=== PATIENT | male | born 1940 | race Caucasian/White ===

== ENCOUNTER 2017-04-15 00:39 | Inpatient (IN) | payer OTHER ==
[~2017-04-15] VITALS: Ht 170.2 cm; Wt 89.3 kg
[2017-04-15] VITALS (11 sets, daily range): BP systolic 156–219; BP diastolic 100–143; PULSE 69–116; TEMP 36.5–37.6; O2SAT 92–98; Ht 170.2 cm; Wt 89.3 kg
[~2017-04-15 00:39] MED LIST: ALLO100T PO; ASPI81TA28 PO; ATOR10TA82 PO; ATV5 PO; CARV6.25 PO; CHOL100010 PO; CIPR-255 PO; CTP2 PO; LEVO150T9 PO; METFTAB2 PO; MULTTAB58 PO; TORS10TA14 PO
[2017-04-15] MEDS ORDERED: LORAZEPAM 2 MG/ML 1 ML VIAL IV STA (01:33)
[2017-04-15 01:40] LABS: BASO % 0.4 %; BASO ABS # 0.03 K/uL (0-0.2); COMPLETE YES; EOS % 2.8 %; HEMATOCRIT 42.9 % (42-52); IG% 0.1 %; LYMPH % 21.7 %; LYMPH ABS # 1.52 K/uL (1.2-3.4); MEAN CELL VOLUME 87.9 fL (80-100); MEAN CORPUSCULAR HEMOGLOBIN 30.5 pg (25-34); MEAN CORPUSCULAR HGB CONC 34.7 g/dl (32-36); MEAN PLATELET VOLUME 10.4 fL (7.4-10.4); MONO % 15.5 %; NEUT % 59.5 %; PLATELET COUNT 242 K/uL (130-400); RED BLOOD COUNT 4.88 M/uL (4.7-6.1); WHITE BLOOD COUNT 7.02 K/uL (4.8-10.8)
[2017-04-15 02:01] LABS: ALT/SGPT 44 U/L (12-78); AST/SGOT 29 U/L (15-37); BLOOD UREA NITROGEN 23 mg/dl (7-18); BUN/CREATININE RATIO 13.6 (10-20); CALCIUM 9.3 mg/dl (8.5-10.1); CARBON DIOXIDE 30 mmol/L (21-32); CHLORIDE 97 mmol/L (98-107); CREATININE 1.71 mg/dl (0.60-1.40); GLUCOSE 187 mg/dl (70-99); POTASSIUM 3.5 mmol/L (3.5-5.1); SODIUM 133 mmol/L (136-145)
[2017-04-15 02:06] LABS: ALKALINE PHOSPHATASE 94 U/L (45-117); CKMB/CK RATIO 2.6 (0-3.0)
--- NOTE | 2017-04-15 03:13 | EMERGENCY ROOM VISIT NOTE ---
History Report prepared by Desirae: Camila Ramires Under the Supervision of: Dr. Pamela Goodrich D.O. First contact with patient: 01:24 Chief Complaint: ILLNESS Stated Complaint: RESP PROBLEMS, WEAKNESS History of Present Illness The patient is a 77 year old male who presents to the Emergency Room with complaints of persistent illness starting 4 days ago. The patient has had a cough, congestion, and rhinorrhea. He tried taking Mucinex 2 nights ago which made him jittery. He was unable to sleep. Around 0300, he became SOB and started wheezing. This slowly improved on its own. He has not had any similar episodes of SOB since then. He was noted by nurses to be diaphoretic on arrival. He drove here. He notes that he stopped taking his Losartan because it caused him to have a sore throat, facial swelling, and heartburn. His heartburn has resolved since he stopped taking it. He notes a history of LBBB. He takes lorazepam at night for anxiety. He is on levothyroxine. He has a history of hypertension. Source of History: patient, nursing staff Onset: 4 days ago Position: other (global) Quality: other (illness) Timing: other (persistent) Associated Symptoms: + diaphoresis, + cough, + SOB (episodic) Note: Pt reports an episode of wheezing, congestion, rhinorrhea. Review of Systems See HPI for pertinent positives & negatives. A total of 10 systems reviewed and were otherwise negative. Past Medical & Surgical Medical Problems: (1) Diabetes (2) Diverticulitis (3) Hypertension (4) Hypertensive urgency (5) Prostate ca (6) Spinal stenosis (7) Thyroid cancer Surgical Problems: (1) S/P lumbar fusion Family History Diabetes mellitus Heart disease Social History Smoking Status: Former Smoker Marital Status: Housing Status: lives with family Occupation Status: retired Current/Historical Medications Scheduled Allopurinol (Allopurinol), 200 MG PO DAILY Amlodipine (Norvasc), 2.5 MG PO QAM Aspirin (Aspirin Ec), 81 MG PO QPM Atorvastatin (Lipitor), 10 MG PO QPM Carvedilol (Coreg), 6.25 MG PO BID Cholecalciferol (Vitamin D3), 1 CAP PO DAILY Clonidine Hcl (Catapres), 0.3 MG PO BID Coenzyme Q10 (Ubidecarenone) (Co Q-10), 150 MG PO DAILY Levothyroxine Sodium (Levothyroxine Sodium), 1 TAB PO DAILY Lorazepam (Ativan), 0.5 MG PO AMPM Metformin Hcl (Glucophage Er), 750 MG PO BID Potassium Chloride (Micro-K Ext Rel), 10 MEQ PO QAM Torsemide (Demadex), 10 MG PO DAILY Allergies Coded Allergies: Clonidine (Unverified Allergy, Unknown, allergic to all but 1 brand, ) ANJELICA Inhibitors (Verified Adverse Reaction, Intermediate, INTOLERANCE PER MD ORDER, 04/15/17) Allopurinol (Verified Adverse Reaction, Intermediate, severe abd pain, 04/15/17) PT TAKES DESPITE REACTION Beta Adrenergic Blockers (Verified Adverse Reaction, Intermediate, INTOLERANCE PER DR ARELLANO, 04/15/17) Doxazosin (Verified Adverse Reaction, Intermediate, INTOLERANCE PER DR ARELLANO, 04/15/17) Statins (Verified Adverse Reaction, Intermediate, INTOLERANCE PER DR ARELLANO , 04/15/17) Physical Exam Vital Signs Date Time Temp Pulse Resp B/P (MAP) Pulse Ox O2 Delivery O2 Flow Rate FiO2 04/15/17 05:09 63 04/15/17 04:54 63 18 167/111 92 Room Air 04/15/17 03:17 74 18 185/107 93 Room Air 04/15/17 01:11 89 04/15/17 01:10 97 Room Air 04/15/17 00:54 37.1 88 19 215/113 95 Room Air Physical Exam HEENT: Head - normocephalic and atraumatic Pupils are equal, round, and reactive to light. Extraocular eye muscles are intact, and sclera are anicteric. Nose - moist nasal mucosa without discharge. Mouth - moist buccal mucosa. Oropharynx is nonerythematous and there is no tonsillar exudate or edema noted. Neck: Supple; no JVD, nuchal rigidity, cervical lymphadenopathy, or auscultated bruits. Heart: Regular rate and rhythm. There is a normal S1 and S2 with no murmurs, clicks, or gallops appreciated. Lungs: Diminished breath sounds at both bases. Abdomen: Soft, completely nontender, distended, with good bowel sounds. There are no palpable pulsatile masses or hepatosplenomegaly. There is no guarding, rigidity, or rebound noted. Extremities: No evidence of cyanosis, clubbing, or edema. There are easily palpable peripheral pulses. Skin: warm and diaphoretic with good turgor and no rashes. Medical Decision & Procedures ER Provider Diagnostic Interpretation: X-ray results as stated below per interpretation by me: Chest X-ray: Elevated right hemidiaphragm, unchanged. Otherwise normal. Laboratory Results Test 04/15/17 00:00 04/15/17 01:20 04/15/17 03:55 Influenza Type A (RT-PCR) Neg for Influ A (NEG) Influenza Type B (RT-PCR) Neg for Influ B (NEG) RDW Standard Deviation 41.2 fL (36.4-46.3) RDW Coefficient of Variation 12.9 % (11.5-14.5) White Blood Count 7.02 K/uL (4.8-10.8) Red Blood Count 4.88 M/uL (4.7-6.1) Hemoglobin 14.9 g/dL (14.0-18.0) Hematocrit 42.9 % (42-52) Mean Corpuscular Volume 87.9 fL (80-100) Mean Corpuscular Hemoglobin 30.5 pg (25-34) Mean Corpuscular Hemoglobin Concent 34.7 g/dl (32-36) Platelet Count 242 K/uL (130-400) Mean Platelet Volume 10.4 fL (7.4-10.4) Neutrophils (%) (Auto) 59.5 % Lymphocytes (%) (Auto) 21.7 % Monocytes (%) (Auto) 15.5 % Eosinophils (%) (Auto) 2.8 % Basophils (%) (Auto) 0.4 % Neutrophils # (Auto) 4.17 K/uL (1.4-6.5) Lymphocytes # (Auto) 1.52 K/uL (1.2-3.4) Monocytes # (Auto) 1.09 K/uL (0.11-0.59) Eosinophils # (Auto) 0.20 K/uL (0-0.5) Basophils # (Auto) 0.03 K/uL (0-0.2) Prothrombin Time 9.9 SECONDS (9.0-12.0) Prothromb Time International Ratio 0.9 (0.9-1.1) Activated Partial Thromboplast Time 25.4 SECONDS (21.0-31.0) Partial Thromboplastin Ratio 1.0 Total Bilirubin 0.4 mg/dl (0.2-1) Direct Bilirubin < 0.1 mg/dl (0-0.2) Aspartate Amino Transf (AST/SGOT) 29 U/L (15-37) Alanine Aminotransferase (ALT/SGPT) 44 U/L (12-78) Alkaline Phosphatase 94 U/L (45-117) Total Creatine Kinase 421 U/L (39-308) Pro-B-Type Natriuretic Peptide 404 pg/ml (0-1800) Total Protein 8.7 gm/dl (6.4-8.2) Albumin 3.8 gm/dl (3.4-5.0) Procalcitonin 0.10 ng/ml (0-0.5) Thyroid Stimulating Hormone (TSH) 1.660 uIu/ml (0.300-4.500) Laboratory results per my review. Medications Administered Medications (Trade) Dose Ordered Sig/Laurie Route Start Time Stop Time Status Last Admin Dose Admin Lorazepam (Ativan Inj) 1 mg NOW STAT IV 04/15/17 01:33 04/15/17 01:35 DC 04/15/17 01:46 1 MG Aspirin (Aspirin Chew) 324 mg NOW STAT PO 04/15/17 05:05 04/15/17 05:06 DC 04/15/17 05:21 324 MG Procedure Medications: Lorazepam 1 mg IV, Aspirin 324 mg PO. ECG Indication: SOB/dyspnea Rate (beats per minute): 87 Rhythm: normal sinus Findings: LBBB, PVC, no acute ischemic change Comparison ECG Date: 10-Dec-2012 Change: LBBB is new, but patient notes that he has a history of LBBB more recently. ED Course 0124: The patient was evaluated in room B12B. A complete history and physical examination were performed. Nursing notes and previous electronic medical records were reviewed. IV lock was established and labs were drawn as above. A twelve-lead EKG was obtained as described above. 0133: The patient remained significantly hypertensive and was given Lorazepam 1 mg IV. 0353: I reevaluated the patient. He is feeling better. He will take his own clonidine.The patient had a borderline elevated troponin. He will have a repeat troponin. 0452: The patient's repeat troponin went up to 0.065. 0500: Upon reevaluation, I discussed findings and results with him. He verbalized agreement of the treatment plan. The patient will be evaluated for further management and care. 0502: I discussed the patient's case with Dr. Valente [facility]. The patient will be evaluated for further management. 0505: Aspirin 324 mg PO. Medical Decision The patient is a 77 year old male who presents to the ED with cough, hypertension and chest discomfort. Differential diagnosis includes cardiac ischemia, anxiety, cardiac dysrhythmia, hypertensive crisis, medication noncompliance. Labs: no leukocytosis, stable H&H, total CK 421, CKMB 11.1, troponin 0.041, BNP 404, BUN 23, creatinine 1.7 which is elevated, sodium is down to 133. Repeat troponin went up to 0.065. This is a 77 year old male patient presents to the emergency department with a cough, hypertension and chest discomfort. The patient does have a history of high blood pressure and anxiety. He became more concerned tonight when his anxiety elevated and he had some discomfort to the left side of his chest. EKG reveals a left bundle-branch block. The patient states that this is old. He had 2 troponins obtained with the second one elevated. [facility] for further management. Medication Reconcilliation Current Medication List: was personally reviewed by me Blood Pressure Screening Patient's blood pressure: Elevated blood pressure Will be addressed as an inpatient. Consults Time Called: 0452 Consulting Physician: Dr. Valente [facility] Returned Call: [phone] Discussed the patient's case. The patient will be evaluated for further management. Impression Primary Impression: Left sided chest pain Additional Impression: Hypertension Scribe Attestation The scribe's documentation has been prepared under my direction and personally reviewed by me in its entirety. I confirm that the note above accurately reflects all work, treatment, procedures, and medical decision making performed by me. Departure Information Dispostion Being Evaluated By Hospitalist Pramod Bhatt M.D. (PCP) Patient Instructions My [facility] Problem Qualifiers Additional Impression: Hypertension Hypertension type: unspecified Qualified Codes: I10 - Essential (primary) hypertension
[2017-04-15] MEDS ORDERED: ASPIRIN 81 MG CHEW PO STA (05:05)
[2017-04-15] MEDS ORDERED: CLON0.3T PO (05:07)
[2017-04-15] MEDS ORDERED: AMLO2.5T PO (05:07)
[2017-04-15] MEDS ORDERED: LEVO150T9 PO (05:07)
[2017-04-15] MEDS ORDERED: POTA10CA28 PO (05:09)
[2017-04-15] MEDS ORDERED: METF750T PO (05:09)
[2017-04-15] MEDS ORDERED: COEN150C PO (05:09)
[2017-04-15] MEDS ORDERED: LORA-741 PO (05:09)
[2017-04-15] MEDS ORDERED: CHOL2000 PO (05:09)
--- NOTE | 2017-04-15 05:15 | History and Physical ---
History & Physical Date & Time of Service: Apr 15, 2017 at 05:14 Chief Complaint: Resp Problems, Weakness Primary Care Physician: Pramod Damian M.D. History of Present Illness Source: patient, family Patient is a 77 yr male with PMH of DM II, uncontrolled HTN, CKD III, Thyroid cancer S/P resection, Hypertensive Heart disease, Prostate cancer S/P cryotherapy, Gout, HLP, Anxiety disorder presents with history of flu like symptoms since 3-4 days duration. Patient is a poor historian. Patient states he follow with Nephrology and Cardiology as outpatient and his BP is chronically elevated. He is on multiple medications for HTN and missed his meds today. He reports he quit taking his losartan recently as it causes sore throat , facial swelling and heartburn and symptoms resolved after discontinuing it. Reports dry cough, low grade fever, Rhinorrhea, diarrhea since 3 days. He noticed to have SOB and wheezing on Wednesday after taking Mucinex along with lorazepam which resolved. Also reports having some chest discomfort across the chest associated with coughing yesterday. He tried Mucinex OTC which minimally helped. He reports having diaphoresis today prior to ED visit. Denies any history of Chest pain, SOB, wheezing, diarrhea currently. Also denies any history of Dizziness, nausea, vomiting, abd pain, change in vision, Orthopnea, PND, change in appetite. Has chronic leg edema which he attributes to Amlodipine. Past Medical/Surgical History Medical Problems: (1) Diabetes Status: Chronic (2) Diverticulitis Status: Resolved (3) Hypertension Status: Chronic (4) Prostate ca Status: Resolved (5) Spinal stenosis Status: Resolved (6) Thyroid cancer Status: Resolved Surgical Problems: (1) S/P lumbar fusion Status: Resolved Family History Diabetes mellitus Heart disease Mother: DM II Father: Parkinson's disease Social History Smoking Status: Former Smoker Alcohol Use: none Marital Status: Housing status: unknown Occupational Status: retired Immunizations History of Influenza Vaccine: Yes History of Tetanus Vaccine?: Yes History of Pneumococcal: Yes History of Hepatitis B Vaccine: Unknown Multi-Drug Resistant Organisms History of MDRO: No Allergies Coded Allergies: Clonidine (Unverified Allergy, Unknown, allergic to all but 1 brand, ) ANJELICA Inhibitors (Verified Adverse Reaction, Intermediate, INTOLERANCE PER MD ORDER, 04/15/17) Allopurinol (Verified Adverse Reaction, Intermediate, severe abd pain, 04/15/17) PT TAKES DESPITE REACTION Beta Adrenergic Blockers (Verified Adverse Reaction, Intermediate, INTOLERANCE PER DR ARELLANO, 04/15/17) Doxazosin (Verified Adverse Reaction, Intermediate, INTOLERANCE PER DR ARELLANO, 04/15/17) Statins (Verified Adverse Reaction, Intermediate, INTOLERANCE PER DR ARELLANO , 04/15/17) Home Medications Scheduled Amlodipine (Norvasc), 2.5 MG PO QAM Aspirin (Aspirin Ec), 81 MG PO QPM Atorvastatin (Lipitor), 10 MG PO QPM Carvedilol (Coreg), 6.25 MG PO BID Cholecalciferol (Vitamin D3), 1 CAP PO DAILY Clonidine Hcl (Catapres), 0.3 MG PO BID Coenzyme Q10 (Ubidecarenone) (Co Q-10), 150 MG PO DAILY Levothyroxine Sodium (Levothyroxine Sodium), 1 TAB PO DAILY Lorazepam (Ativan), 0.5 MG PO AMPM Metformin Hcl (Glucophage Er), 750 MG PO BID Potassium Chloride (Micro-K Ext Rel), 10 MEQ PO QAM Torsemide (Demadex), 10 MG PO DAILY Review of Systems See HPI for pertinent positives & negatives. A total of 10 systems reviewed and were otherwise negative. Physical Exam Vital Signs Date Time Temp Pulse Resp B/P (MAP) Pulse Ox O2 Delivery O2 Flow Rate FiO2 04/15/17 05:09 63 04/15/17 04:54 63 18 167/111 92 Room Air 04/15/17 03:17 74 18 185/107 93 Room Air 04/15/17 01:11 89 04/15/17 01:10 97 Room Air 04/15/17 00:54 37.1 88 19 215/113 95 Room Air General Appearance: WD/WN, no apparent distress Head: normocephalic, atraumatic Eyes: normal inspection, PERRL, EOMI, sclerae normal ENT: normal ENT inspection, hearing grossly normal Neck: supple, trachea midline Respiratory/Chest: chest non-tender, lungs clear, normal breath sounds, no respiratory distress, no accessory muscle use Cardiovascular: regular rate, rhythm, no murmur, + pertinent finding (1-2+ B/L edema) Abdomen/GI: normal bowel sounds, non tender, soft Back: normal inspection Extremities/Musculoskelatal: normal inspection, + pedal edema Neurologic/Psych: cna pct II-XII nml as tested, no motor/sensory deficits, alert, normal mood/affect, oriented x 3 Skin: normal color, warm/dry Diagnostics Laboratory Results Results Past 24 Hours Test 04/15/17 01:20 04/15/17 03:55 Range/Units White Blood Count 7.02 4.8-10.8 K/uL Red Blood Count 4.88 4.7-6.1 M/uL Hemoglobin 14.9 14.0-18.0 g/dL Hematocrit 42.9 42-52 % Mean Corpuscular Volume 87.9 80-100 fL Mean Corpuscular Hemoglobin 30.5 25-34 pg Mean Corpuscular Hemoglobin Concent 34.7 32-36 g/dl Platelet Count 242 130-400 K/uL Mean Platelet Volume 10.4 7.4-10.4 fL Neutrophils (%) (Auto) 59.5 % Lymphocytes (%) (Auto) 21.7 % Monocytes (%) (Auto) 15.5 % Eosinophils (%) (Auto) 2.8 % Basophils (%) (Auto) 0.4 % Neutrophils # (Auto) 4.17 1.4-6.5 K/uL Lymphocytes # (Auto) 1.52 1.2-3.4 K/uL Monocytes # (Auto) 1.09 0.11-0.59 K/uL Eosinophils # (Auto) 0.20 0-0.5 K/uL Basophils # (Auto) 0.03 0-0.2 K/uL RDW Standard Deviation 41.2 36.4-46.3 fL RDW Coefficient of Variation 12.9 11.5-14.5 % Immature Granulocyte % (Auto) 0.1 % Immature Granulocyte # (Auto) 0.01 0.00-0.02 K/uL Sodium Level 133 136-145 mmol/L Potassium Level 3.5 3.5-5.1 mmol/L Chloride Level 97 98-107 mmol/L Carbon Dioxide Level 30 21-32 mmol/L Anion Gap 6.0 3-11 mmol/L Blood Urea Nitrogen 23 7-18 mg/dl Creatinine 1.71 0.60-1.40 mg/dl Est Creatinine Clear Calc Drug Dose 39.5 ml/min Estimated GFR () 44.1 Estimated GFR (Non- 38.0 BUN/Creatinine Ratio 13.6 10-20 Random Glucose 187 70-99 mg/dl Calcium Level 9.3 8.5-10.1 mg/dl Total Bilirubin 0.4 0.2-1 mg/dl Direct Bilirubin < 0.1 0-0.2 mg/dl Aspartate Amino Transf (AST/SGOT) 29 15-37 U/L Alanine Aminotransferase (ALT/SGPT) 44 12-78 U/L Alkaline Phosphatase 94 45-117 U/L Total Creatine Kinase 421 39-308 U/L Creatine Kinase MB 11.1 0.5-3.6 ng/ml Creatine Kinase MB Ratio 2.6 0-3.0 Troponin I 0.041 0.065 0-0.045 ng/ml Pro-B-Type Natriuretic Peptide 404 0-1800 pg/ml Total Protein 8.7 6.4-8.2 gm/dl Albumin 3.8 3.4-5.0 gm/dl Diagnostic Radiology CXR: : Mild cardiomegaly. Chronic platelike atelectasis both lung bases EKG EKG: Sinus, PVC, PACs, LBBB Impression Assessment and Plan Hypertensive Urgency: ? Compliance Chronically uncontrolled Previously on HCTZ but developed Hyponatremia Could not increase coreg/Clonidine secondary to Relative Bradycardia Did not tolerate Hydralazine in the past Quit taking Losartan secondary to side effects Resume his home HTN meds Monitor Mild elevation in troponin likely secondary to HTN Urgency Trend Cardiac enzymes, Check ECHO EKG: Sinus, PACs, PVCs, LBBB (LBBB not new based on EKG from 02/07/16) Monitor electrolytes repeat EKG CKD III: Cr slightly elevated: 1.7 Gentle IV fluids Monitor renal function May need to hold Torsemide, Allopurinol and Stain if Cr worsens Flu Like symptoms: Check Influenza CXR: No signs of consolidation Empirically start on Levaquin Normal procalcitonin DM II: ISS, Lantus Last A1C:7.4 on 11/11/16 Hold Oral DM meds H/O Thyroid cancer S/P resection H/O Prostate cancer S/P cryotherapy Continue levothyroxine TSH: normal Gout: Continue Allopurinol Anxiety disorder: Continue home meds DVT Px: Heparin SQ Code Status: Full Code
[2017-04-15] MEDS ORDERED: NITROGLYCERIN 0.4 MG SL PER TAB CHARGE SL PRN (06:15)
[2017-04-15] MEDS ORDERED: SODIUM CHLORIDE 0.9% 1000ML 500 ML IV ONE (06:15)
[2017-04-15] MEDS ORDERED: DEXTROSE 50% 50 ML SYR IV PRN (06:30)
[2017-04-15] MEDS ORDERED: GLUCAGON FOR INJ 1 MG VIAL SQ PRN (06:30)
[2017-04-15] MEDS ORDERED: GLUCOSE 40% GEL 15 GM TUBE PO PRN (06:30)
[2017-04-15] MEDS ORDERED: GLUCOSE 10 TABS/TUBE PO PRN (06:30)
--- NOTE | 2017-04-15 06:36 | DIAGNOSTIC IMAGING REPORT ---
CHEST ONE VIEW PORTABLE CLINICAL HISTORY: sob dyspnea COMPARISON STUDY: 12/11/2012 FINDINGS: Mild cardiomegaly. Chronic elevation right hemidiaphragm. Minimal chronic platelike bibasilar atelectasis. IMPRESSION: Mild cardiomegaly. Chronic platelike atelectasis both lung bases. The above report was generated using voice recognition software. It may contain grammatical, syntax or spelling errors. Electronically signed by: Bill Burkett M.D. 04/15/2017 6:35 AM Dictated Date/Time: 04/15/2017 6:34 AM
[2017-04-15] MEDS ORDERED: POTASSIUM CHLORIDE 10 MEQ TABCR PO SCH (06:45)
[2017-04-15 06:55] LABS: INR 0.9 (0.9-1.1); PROTHROMBIN TIME (PATIENT) 9.9 SECONDS (9.0-12.0)
[2017-04-15] MEDS ORDERED: IV FLUIDS COMPLETED PRN (07:00)
[2017-04-15 07:16] LABS: MAGNESIUM 2.2 mg/dl (1.8-2.4)
[2017-04-15] MEDS ORDERED: NURSING VERBAL MED ORDER ONE (07:45)
[2017-04-15] MEDS ORDERED: LEVOFLOXACIN CONSULT ACTIVE PRN (08:00)
[2017-04-15] MEDS ORDERED: LEVOTHYROXINE 150 MCG TAB PO SCH (08:00)
[2017-04-15] MEDS: LEVOFLOXACIN 750 MG TAB PO SCH (08:28)
[2017-04-15] MEDS: NITROGLYCERIN OINT 2% 1GM PACKET EXT SCH ×3 (08:29→19:33)
[2017-04-15] MEDS: LORAZEPAM 0.5 MG TAB PO SCH ×2 (08:36→19:36)
[2017-04-15] MEDS: HydrALAZINE HCL 20 MG/ML VIAL IV. PRN ×2 (08:37→23:25)
[2017-04-15] MEDS ORDERED: ALL100 PO (08:37)
[2017-04-15] MEDS: INSULIN ASPART 100 UNITS/ML 3 ML PEN SC SCH ×4 (08:39→20:53)
[2017-04-15] MEDS ORDERED: CARVEDILOL 6.25 MG TAB PO SCH (09:00)
[2017-04-15] MEDS ORDERED: TORSEMIDE 20 MG TAB PO SCH (09:00)
[2017-04-15] MEDS ORDERED: AMLODIPINE BESYLATE 5 MG TAB PO SCH (09:00)
[2017-04-15] MEDS ORDERED: ALLOPURINOL 100 MG TAB PO SCH (09:15)
[2017-04-15] MEDS ORDERED: CARVEDILOL 6.25 MG TAB PO STA (09:38)
[2017-04-15 11:57] LABS: INFLUENZA A PCR Neg for Influ A (NEG); INFLUENZA B PCR Neg for Influ B (NEG)
[2017-04-15] MEDS: ACETAMINOPHEN 325 MG TAB PO PRN (12:28)
[2017-04-15] MEDS: HEPARIN SOD 5000 UNIT/0.5 ML CARP SQ SCH ×2 (13:35→20:54)
--- NOTE | 2017-04-15 13:47 | CARDIOLOGY CONSULTATION ---
DATE OF CONSULTATION: 04/15/2017 REFERRING PHYSICIAN: Michael Briceño MD CHIEF COMPLAINT ON ADMISSION: Cough and feeling unwell. HISTORY OF PRESENT ILLNESS: Mr. David is a 77-year-old male who is known to the undersigned for history of labile hypertension and nonobstructive coronary artery disease. He describes upper respiratory illness starting approximately 5 days ago with congestion, sore throat, rhinorrhea, and cough. Reports low-grade temperature of 100.3 at home. The patient took some Mucinex yesterday with improvement; however, felt worse overnight with cough and wheezing. Minimal sputum production noted. Blood pressure has been quite labile. Recently evaluated by nephrology, who recommended ER evaluation; however, the patient declined hospitalization at that time. Longstanding history of perceived medication intolerance including multi-antihypertensive medication changes as documented in the [facility] record. He has been hypertensive since admission. Denies exertional chest pain or heaviness. Mild dyspnea on exertion associated with current upper respiratory tract infection. Reports labile blood pressures at home, which are unchanged. Denies orthopnea, PND, or lower extremity edema. He has been compliant with current medications listed below aside from losartan. The patient states losartan causes possible lip swelling, sore throat, and swollen lymph nodes in his neck. Amlodipine reduced in the past due to lower extremity edema. Currently, the patient is resting comfortably. Reports mild congestion. Blood pressure remains elevated. No dysrhythmias on telemetry. Offers no other complaints at this time. REVIEW OF SYSTEMS: The pertinent positive noted above, a comprehensive 10-system review is otherwise negative. PAST MEDICAL HISTORY: 1. Labile hypertension. 2. Nonobstructive coronary artery disease per cardiac catheterization in 2009. 3. Hyponatremia. 4. Type 2 diabetes. 5. Hypertensive heart disease. 6. Sinus bradycardia. 7. Hypertension. 8. Chronic kidney disease stage III. 9. Hypothyroidism. 10. Anxiety disorder. PAST SURGICAL HISTORY: 1. Prostate biopsy. 2. Carpal tunnel surgery. 3. Colorectal cancer screening. 4. Dental surgery. 5. EGD. 6. Spinal fusion -- lumbar. 7. Prostate cryoablation. 8. Removal of thymus gland. 9. Ulnar nerve revision. FAMILY HISTORY: Negative for premature CAD or sudden cardiac , positive for diabetes. SOCIAL HISTORY: He is and lives with his . Denies alcohol use. Former tobacco use noted. ALLERGIES: 1. DOXAZOSIN. 2. CARVEDILOL. 3. CITALOPRAM. 4. CLONIDINE. 5. LISINOPRIL. 6. STATINS. CURRENT OUTPATIENT MEDICATIONS: Per review of Epic record: 1. Magnesium 500 mg daily. 2. Potassium chloride 10 mEq on Wednesday, Wednesday and Wednesday with 10 mg dose of Demadex. 3. Demadex 10 mg on Wednesday, Wednesday, and Wednesday. 4. Carvedilol 6.25 mg twice daily. 5. Allopurinol 100 mg 2 tablets daily. 6. Ativan 0.5 mg twice daily. 7. Norvasc 2.5 mg daily. 8. Lipitor 10 mg at bedtime. 9. Levoxyl 150 mcg daily. 10. Coenzyme Q10 daily. 11. Clonidine 0.3 mg twice daily. 12. Losartan 50 mg twice daily. 13. Metformin 750 mg twice daily. 14. Aspirin 81 mg daily. EKG on admission demonstrates sinus rhythm with left bundle-branch block. Telemetry demonstrates sinus rhythm with left bundle-branch block, no significant bradycardia, pauses, or heart block. Chest x-ray on admission: Elevated right hemidiaphragm. No congestion or infiltrate. LABORATORY DATA: Initial troponin 0.041, repeat troponin 0.065, total CK 421, and CK-MB 11.1. Sodium 133, potassium 3.5, chloride 97, CO2 is 30, BUN is 23, and creatinine is 1.71. INR is 0.9. Hemoglobin is 14.9, white blood cell count is 7.02, and platelet count 242. PHYSICAL EXAMINATION: VITAL SIGNS: Temperature is 36.5 degrees centigrade, pulse 69 beats per minute and regular, respiratory rate 20 breaths per minute, blood pressure currently 190/106, and SaO2 is 93% on room air. GENERAL: NAD, awake, alert and oriented x3. HEENT: His mucous membranes are moist. No scleral icterus. The conjunctivae are pink. NECK: Supple without JVD or HJR. No carotid bruit. HEART: Regular with a normal S1 and S2. There is no murmur, rub, or gallop. LUNGS: Clear without rales, rhonchi, or wheezes. There are diminished breath sounds at the right base. ABDOMEN: Soft and nontender. No rebound or guarding. Normal bowel sounds. EXTREMITIES: Warm and dry. There is no clubbing, cyanosis, or edema. NEUROLOGIC: Demonstrates no focal motor deficit. FINAL IMPRESSION: 1. This is a 77-year-old male who presented to the Emergency Room with upper respiratory tract infection. 2. Mildly elevated troponin and CK-MB without anginal symptoms. History of minimal nonobstructive coronary artery disease in the past. 3. Acute renal insufficiency superimposed on chronic kidney disease secondary to volume depletion/diuretic use. 4. Uncontrolled hypertension, which is known to be labile per history. 5. Multiple drug intolerances. 6. Dyslipidemia. PLAN AND RECOMMENDATIONS: Cardiac enzymes will be trended x3 sets. A resting 2D transthoracic echo ordered to exclude the presence of new regional wall motion abnormalities. Consider influenza screening as well as testing for strep throat given symptoms noted above. Antibiotics as per internal medicine service. Carvedilol will be titrated to 12.5 mg twice daily to improve blood pressure control. Losartan will be discontinued due to possible history of angioedema (lip swelling) noted recently. Consider addition of hydralazine to improve blood pressure control. Further recommendations pending review of testing. We will continue to follow patient closely during hospitalization. Thank you for allowing me to participate in the care of your patient.
[2017-04-15] MEDS ORDERED: TRAMADOL HCL 50 MG TAB PO PRN (14:00)
[2017-04-15] MEDS ORDERED: AMLODIPINE BESYLATE 5 MG TAB PO ONE (14:30)
--- NOTE | 2017-04-15 15:44 | DIAGNOSTIC IMAGING REPORT ---
HEAD WITHOUT CONTRAST (CT) CLINICAL HISTORY: 77 years-old Male with AMS. Acute altered mental status TECHNIQUE: Multiple axial CT images of the head were obtained without contrast. A dose lowering technique was utilized adhering to the principles of ALARA. CT DOSE: 638.56 mGycm COMPARISON: Head CT 07/13/2009. FINDINGS: No acute intracranial hemorrhage, midline shift, intracranial mass, hydrocephalus, territorial ischemia or abnormal extra-axial collection. Mild atrophy with chronic microvascular ischemic changes. Chronic microvascular ischemic changes have progressed from prior study. Vascular calcifications are seen at the level of the skull base. The calvarium is intact. The mastoid air cells, and middle ear cavities are clear. Mild mucosal thickening of the ethmoid air cells. IMPRESSION: No acute intracranial abnormality. The above report was generated using voice recognition software. It may contain grammatical, syntax or spelling errors. Electronically signed by: Jagdish Medrano M.D. 04/15/2017 3:43 PM Dictated Date/Time: 04/15/2017 3:41 PM
--- NOTE | 2017-04-15 15:46 | NEPHROLOGY CONSULTATION ---
DATE OF CONSULTATION: 04/15/2017 ATTENDING OF RECORD: Dr. Valente. REASON FOR CONSULTATION: KYRA and hypertension. HISTORY OF PRESENT ILLNESS: This is a 77-year-old male who was recently seen in my office on April 09 with CKD stage III with over a gram of proteinuria from hypertension and diabetes with creatinine has been slowly trending up, has hypertension and checks it at home and his home blood pressure machine is accurate. The patient's diuretics were recently switched about a month ago from hydrochlorothiazide to torsemide and since switching, his blood pressure has worsened. The patient does have several drugs sensitivities and requires clonidine, Actavis brand only. He did develop shortness of breath from generics. He has also developed palpitations from Norvasc and had a cough from lisinopril, although tolerating the losartan well. He does have a history of prostate cancer as well as prostatitis as well as history of gout, but unable to tolerate the allopurinol on a daily basis and only takes the allopurinol when needed. No history of myeloma. No history of hepatitis. When I saw the patient, we have a right kidney of 11.8 cm and left kidney of 12 cm medical renal disease with a creatinine of 1.4 and 2.5 grams of proteinuria from hypertension, diabetes and trying to optimize blood pressure medicines as well as possible. Blood pressure was 196/114 when I saw him in the office and strongly encouraged him to go to the Emergency Room to try to help lower his blood pressure and patient agreed to try norvasc again and started him on Norvasc 2.5 mg to help lower his blood pressure since the patient did not want to go to the hospital. The patient though developed cough and sinus symptoms and started Mucinex and then took a lorazepam to help him sleep. He developed worsening cough and wheezing over the weekend. The patient presented with generalized weakness overall. The patient's blood pressures are normally significantly elevated and when he came in at midnight today, his blood pressure was 215/113. It is currently last checked 156/114. He just had an echo done. Currently on Coreg 12.5 mg p.o. b.i.d., clonidine 0.3 b.i.d., and normal saline at 50 mL an hour. Creatinine was 1.71. At the time of admission with negative procalcitonin. White count of 7, H&H of 14 and 42, and platelet count of 242. Flu negative. Chest x-ray showed mild cardiomegaly with chronic atelectasis of both lungs. PAST MEDICAL HISTORY: CKD stage III, type 2 diabetes, BPH, prostate cancer, gout, hypertension, hypothyroidism, history of thyroid cancer, anxiety, and hyperlipidemia. PAST SURGICAL HISTORY: Prostate biopsy x2, carpal tunnel surgery, lumbar fusion, prostate cryoablation and removal of thymus gland. FAMILY HISTORY: Significant for diabetes and breast cancer. Brother with hypertension. SOCIAL HISTORY: with 1 child. Former smoker, quit in 1978. No alcohol and no drugs. REVIEW OF SYSTEMS: Positive fatigue. Positive intermittent headaches. No change in weight. No fevers or chills. Positive shortness of breath. Positive cough. Positive wheezing, which has gotten better. No chest pain. No edema. No nausea, vomiting, diarrhea or constipation. Positive nocturia about twice a night. Positive arthritis in the knees. No rash or itching. All other review of systems otherwise negative. The patient's creatinine was 1.4 at last check on March 01. It was up to 1.6 on January 12. CURRENT MEDICATIONS: Levothyroxine 150 mcg daily, Lantus 5 units at night, aspirin 81 mg at night, Lipitor 10 mg at night, clonidine 0.3 b.i.d., Coreg 12.5 b.i.d., heparin 5,000 units subQ q. 8 hours, allopurinol 200 mg daily, Norvasc 2.5 mg daily, Ativan 0.5 mg p.o. b.i.d., and Levaquin 750 mg p.o. q. 2 days. PHYSICAL EXAMINATION: VITAL SIGNS: Temperature 36.5, pulse 74, respiratory rate 18, blood pressure 156/114, and satting 94% on room air. GENERAL: Awake, alert, and oriented x3. EYES: No scleral icterus. ENT: Moist mucous membranes. NECK: Supple. PULMONARY: Clear to auscultation. CARDIAC: Regular rate and rhythm. ABDOMEN: Bowel sounds positive. Soft and nontender. EXTREMITIES: No clubbing or cyanosis. Does have +1 edema towards the ankles. NEUROLOGICALLY: Nonfocal. DERMATOLOGIC: No rash or ulcers noted. LABORATORIES: Sodium level is 133, potassium is 3.5, chloride is 97, bicarbonate is 30, BUN is 23, creatinine is 1.71, and glucose 187. CK 421. Albumin 3.8. Procalcitonin is negative. White count 7, H&H 14 and 42, and platelet count is 242. INR is 0.9. Flu is negative. ASSESSMENT AND PLAN: 1. Acute kidney injury on chronic kidney disease, stage III with baseline creatinine of 1.4 and came at 1.71. However, the patient has had uncontrolled hypertension secondary to intolerance of several blood pressure medications and so it is not surprising with a recent sinus congestion, shortness of breath, and cough that his creatinine is above baseline. Currently on IV fluids; however, blood pressures so difficult to control. Would like to stop the IV fluids and okay with creatinine trending up as we try to optimize blood pressure medications. 2. Hypertension. The patient has several drug intolerances. He is normally tolerating losartan for a long time; however, there is a possible angioedema with lip swelling noted recently. Cardiology evaluated the patient and recommended that the losartan be discontinued. They were titrating up the Coreg to 12.5 twice a day and thinking of adding hydralazine to help improve blood pressure control. In the outpatient setting, we did attempt hydralazine and the patient did not tolerate it. They have started Norvasc 2.5 and would like to titrate that up to 5 mg while in an inpatient. I will work with cardiology and the primary hospitalist to help control the blood pressure overall. Currently, on clonidine 0.3 b.i.d., Coreg 12.5 b.i.d., and Norvasc 2.5. We will increase the Norvasc to 5 mg a day and give an additional dose of Norvasc 2.5 now and go ahead and stop the IV fluids. I appreciate the consultation. ALBERT
[2017-04-15] MEDS ORDERED: OXYCODONE/ACETAMINOPHEN 5-325 TAB PO ONE (16:15)
--- NOTE | 2017-04-15 16:31 | ECHOCARDIOGRAM REPORT ---
*NOTICE TO RECEIVING REPUBLICAN AGENCY This information is strictly Confidential and protected under [place] law. [place] law prohibits you from making any further disclosure of this information unless further disclosure is expressly permitted by the written consent of the person to whom it pertains or is authorized by law. A general authorization for the release of medical or other information is not sufficient for this purpose. Hospital accepts no responsibility if the information is made available to any other person, INCLUDING THE PATIENT. Interpretation Summary * Name: BJORN ROSARIO Study Date: 04/15/2017 01:41 PM BP: 156/114 mmHg * Patient Location: C.2E\S\E202\S\1 HR: 74 * : 1940 (M/d/yyyy) Gender: Male Height: 67 in * Age: 77 yrs Ethnicity: [place] Weight: 200 lb * Ordering Physician: Lake Valente * Referring Physician: Self, Referred * Performed By: Félix Horn RCS * * Reason For Study: Chest Pain * BSA: 2.0 m2 * The study was technically limited. * Compared to prior study, changes are noted. * -- Conclusions -- * Ejection Fraction = 50-55%. * There is moderate concentric left ventricular hypertrophy. * The basal septum is thickened and angulated consistent with sigmoid septum. * Septal and apical wall motion abnormality is likely consistent with conduction abnormality. * Aortic valve sclerosis mild, without significant aortic valvular stenosis. * Mild aortic regurgitation. * There is trace mitral regurgitation. * There is mild tricuspid regurgitation. * The estimated systolic PAP is 45mmHg. * Grade I diastolic dysfunction, (abnormal relaxation pattern). Procedure Details * A complete two-dimensional transthoracic echocardiogram was performed (2D, M-mode, Doppler and color flow Doppler). Left Ventricle * The left ventricle is normal in size. * There is moderate concentric left ventricular hypertrophy. * The basal septum is thickened and angulated consistent with sigmoid septum. * Ejection Fraction = 50-55%. * Left ventricular systolic function is normal. * Septal and apical wall motion abnormality is likely consistent with conduction abnormality. Right Ventricle * The right ventricle is normal size. * The right ventricular systolic function is normal as assessed by tricuspid annular plane systolic excursion (TAPSE) (normal >1.5 cm). Atria * The left atrial size is normal. * Right atrial size is normal. * There is no evidence of atrial septal defect, but resolution does not allow assessment for a patent foramen ovale. Mitral Valve * There is mild mitral annular calcification. * There is no mitral valve stenosis. * There is trace mitral regurgitation. Tricuspid Valve * The tricuspid valve is normal. * There is no tricuspid stenosis. * There is mild tricuspid regurgitation. * The estimated systolic PAP is 45mmHg. Aortic Valve * The aortic valve is trileaflet. * Aortic valve sclerosis mild, without significant aortic valvular stenosis. * Aortic stenosis is absent. * Mild aortic regurgitation. Pulmonic Valve * The pulmonary valve is not well seen, but the Doppler examination is normal without significant regurgitation or stenosis. Great Vessels * The aortic root and proximal ascending aorta are normal sized. Pericardium/Pleural * There is no pericardial effusion. Great Vessels * Normal inferior vena cava diameter and respiratory variation suggests normal central venous pressure. Left Ventricular Diastolic Function * Grade I diastolic dysfunction, (abnormal relaxation pattern). MMode 2D Measurements and Calculations IVSd 1.5 cm IVSs 1.3 cm LVIDd 4.2 cm LVIDs 2.9 cm LVPWd 1.5 cm LVPWs 1.4 cm IVS/LVPW 0.96 FS 29.2 % EDV(Teich) 76.4 ml ESV(Teich) 33.3 ml EF(Teich) 56.5 % EDV(cubed) 71.5 ml ESV(cubed) 25.4 ml EF(cubed) 64.5 % % IVS thick -10.14 % % LVPW thick -9.98 % LV mass(C)d 245.0 grams LV mass(C)dI 121.2 grams/m\S\2 LV mass(C)s 128.3 grams LV mass(C)sI 63.5 grams/m\S\2 SV(Teich) 43.2 ml SI(Teich) 21.3 ml/m\S\2 SV(cubed) 46.2 ml SI(cubed) 22.8 ml/m\S\2 Ao root diam 4.2 cm Ao root area 13.9 cm\S\2 ACS 1.8 cm LA dimension 3.6 cm asc Aorta Diam 3.7 cm LA/Ao 0.85 EDV(MOD-sp4) 83.0 ml ESV(MOD-sp4) 48.0 ml EF(MOD-sp4) 42.2 % EDV(MOD-sp2) 108.0 ml ESV(MOD-sp2) 57.0 ml EF(MOD-sp2) 47.2 % SV(MOD-sp4) 35.0 ml SI(MOD-sp4) 17.3 ml/m\S\2 SV(MOD-sp2) 51.0 ml SI(MOD-sp2) 25.2 ml/m\S\2 Doppler Measurements and Calculations MV E max marcos 58.9 cm/sec MV A max marcos 80.6 cm/sec MV E/A 0.73 MV P1/2t max marcos 72.9 cm/sec MV P1/2t 91.1 msec MVA(P1/2t) 2.4 cm\S\2 MV dec slope 234.4 cm/sec\S\2 MV dec time 0.21 sec Ao V2 max 133.3 cm/sec Ao max PG 7.1 mmHg Ao max PG (full) 3.5 mmHg LV V1 max PG 3.6 mmHg LV V1 max 94.5 cm/sec PA V2 max 95.8 cm/sec PA max PG 3.7 mmHg TR max marcos 231.1 cm/sec
--- NOTE | 2017-04-15 17:08 | Progress Note ---
Internal Med Progress Note Date of Service: Apr 15, 2017. Provider Documentation: complains of headache. Afebrile. Denies any sob or chest pain. Ct head was unremarkable. Appreciate cardiology and nephrology inputs. Continue to Monitor BP and adjust meds. ASSESSMENT & PLAN: [] DVT PROPHYLAXIS [] DISPOSITION [] Vital Signs: Date Time Temp Pulse Resp B/P (MAP) Pulse Ox O2 Delivery O2 Flow Rate FiO2 04/15/17 15:05 36.9 76 20 201/126 (151) 94 204/120 (148) 04/15/17 12:00 Room Air 04/15/17 11:04 36.5 74 18 156/114 (128) 94 Room Air 04/15/17 08:00 Room Air 04/15/17 07:14 36.5 69 20 190/106 93 Room Air 04/15/17 06:39 69 18 170/103 95 04/15/17 05:09 63 04/15/17 04:54 63 18 167/111 92 Room Air 04/15/17 03:17 74 18 185/107 93 Room Air 04/15/17 01:11 89 04/15/17 01:10 97 Room Air 04/15/17 00:54 37.1 88 19 215/113 95 Room Air Lab Results: Results Past 24 Hours Test 04/15/17 00:00 04/15/17 01:20 04/15/17 03:55 04/15/17 09:59 Range/Units Influenza Type A (RT-PCR) Neg for Influ A NEG Influenza Type B (RT-PCR) Neg for Influ B NEG White Blood Count 7.02 4.8-10.8 K/uL Red Blood Count 4.88 4.7-6.1 M/uL Hemoglobin 14.9 14.0-18.0 g/dL Hematocrit 42.9 42-52 % Mean Corpuscular Volume 87.9 80-100 fL Mean Corpuscular Hemoglobin 30.5 25-34 pg Mean Corpuscular Hemoglobin Concent 34.7 32-36 g/dl Platelet Count 242 130-400 K/uL Mean Platelet Volume 10.4 7.4-10.4 fL Neutrophils (%) (Auto) 59.5 % Lymphocytes (%) (Auto) 21.7 % Monocytes (%) (Auto) 15.5 % Eosinophils (%) (Auto) 2.8 % Basophils (%) (Auto) 0.4 % Neutrophils # (Auto) 4.17 1.4-6.5 K/uL Lymphocytes # (Auto) 1.52 1.2-3.4 K/uL Monocytes # (Auto) 1.09 0.11-0.59 K/uL Eosinophils # (Auto) 0.20 0-0.5 K/uL Basophils # (Auto) 0.03 0-0.2 K/uL RDW Standard Deviation 41.2 36.4-46.3 fL RDW Coefficient of Variation 12.9 11.5-14.5 % Immature Granulocyte % (Auto) 0.1 % Immature Granulocyte # (Auto) 0.01 0.00-0.02 K/uL Prothrombin Time 9.9 9.0-12.0 SECONDS Prothromb Time International Ratio 0.9 0.9-1.1 Activated Partial Thromboplast Time 25.4 21.0-31.0 SECONDS Partial Thromboplastin Ratio 1.0 Sodium Level 133 136-145 mmol/L Potassium Level 3.5 3.5-5.1 mmol/L Chloride Level 97 98-107 mmol/L Carbon Dioxide Level 30 21-32 mmol/L Anion Gap 6.0 3-11 mmol/L Blood Urea Nitrogen 23 7-18 mg/dl Creatinine 1.71 0.60-1.40 mg/dl Est Creatinine Clear Calc Drug Dose 39.5 ml/min Estimated GFR () 44.1 Estimated GFR (Non- 38.0 BUN/Creatinine Ratio 13.6 10-20 Random Glucose 187 70-99 mg/dl Calcium Level 9.3 8.5-10.1 mg/dl Magnesium Level 2.2 1.8-2.4 mg/dl Total Bilirubin 0.4 0.2-1 mg/dl Direct Bilirubin < 0.1 0-0.2 mg/dl Aspartate Amino Transf (AST/SGOT) 29 15-37 U/L Alanine Aminotransferase (ALT/SGPT) 44 12-78 U/L Alkaline Phosphatase 94 45-117 U/L Total Creatine Kinase 421 39-308 U/L Creatine Kinase MB 11.1 8.6 0.5-3.6 ng/ml Creatine Kinase MB Ratio 2.6 0-3.0 Troponin I 0.041 0.065 0.062 0-0.045 ng/ml Pro-B-Type Natriuretic Peptide 404 0-1800 pg/ml Total Protein 8.7 6.4-8.2 gm/dl Albumin 3.8 3.4-5.0 gm/dl Procalcitonin 0.10 0-0.5 ng/ml Thyroid Stimulating Hormone (TSH) 1.660 0.300-4.500 uIu/ml Test 04/15/17 11:25 04/15/17 16:00 04/15/17 16:16 04/15/17 16:19 Range/Units Bedside Glucose 170 188 70-99 mg/dl Creatine Kinase MB Ratio 0-3.0
[2017-04-15] MEDS: ASPIRIN 81 MG ECTAB PO SCH (19:34)
[2017-04-15] MEDS: ATORVASTATIN 10 MG TAB PO SCH (19:34)
[2017-04-15] MEDS: ONDANSETRON INJ 2 MG/ML 2 ML VIAL IV PRN (19:36)
[2017-04-15] MEDS: CLONIDINE HCL 0.3 MG TAB PO SCH (19:37)
[2017-04-15] MEDS: CARVEDILOL 12.5 MG TAB PO SCH (20:46)
[2017-04-15] MEDS: INSULIN GLARGINE SOLOSTAR 100 UNITS/ML 3 ML PEN SC SCH (21:02)
[2017-04-15] MEDS: HydrALAZINE 10 MG TAB PO SCH (21:09)
[2017-04-15] MEDS ORDERED: LABETALOL HCL IV 5 MG/ML 20ML IV ONE (22:45)
[2017-04-16] VITALS (11 sets, daily range): BP systolic 121–209; BP diastolic 60–155; PULSE 66–123; TEMP 36.7–37.7; O2SAT 90–95
[2017-04-16] MEDS ORDERED: LORAZEPAM 2 MG/ML 1 ML VIAL IV ONE (00:15)
[2017-04-16] MEDS ORDERED: NURSING VERBAL MED ORDER ONE (00:15)
[2017-04-16] MEDS: NITROGLYCERIN OINT 2% 1GM PACKET EXT SCH ×4 (02:30→21:07)
[2017-04-16] MEDS: ONDANSETRON INJ 2 MG/ML 2 ML VIAL IV PRN (02:41)
[2017-04-16 04:19] LABS: BASO % 0.2 %; BASO ABS # 0.02 K/uL (0-0.2); COMPLETE YES; HEMATOCRIT 40.2 % (42-52); IG% 0.4 %; LYMPH % 9.9 %; LYMPH ABS # 1.05 K/uL (1.2-3.4); MEAN CELL VOLUME 87.4 fL (80-100); MEAN CORPUSCULAR HEMOGLOBIN 30.7 pg (25-34); MEAN CORPUSCULAR HGB CONC 35.1 g/dl (32-36); MONO % 7.6 %; NEUT % 81.9 %; PLATELET COUNT 250 K/uL (130-400); WHITE BLOOD COUNT 10.65 K/uL (4.8-10.8)
[2017-04-16 04:32] LABS: BLOOD UREA NITROGEN 19 mg/dl (7-18); BUN/CREATININE RATIO 11.3 (10-20); CALCIUM 8.9 mg/dl (8.5-10.1); CARBON DIOXIDE 31 mmol/L (21-32); CHLORIDE 98 mmol/L (98-107); CREATININE 1.72 mg/dl (0.60-1.40); GLUCOSE 243 mg/dl (70-99); SODIUM 133 mmol/L (136-145)
[2017-04-16 04:37] LABS: CHOLESTEROL 177 mg/dl (0-200); CHOLESTEROL/HDL RATIO 4.9; HDL CHOLESTEROL 36 mg/dl; LDL CHOLESTEROL CALCULATED 71 mg/dl; TRIGLYCERIDES 348 mg/dl (0-150); VERY LOW DENSITY LIPOPROT CALC 70 mg/dl
[2017-04-16] MEDS: HydrALAZINE HCL 20 MG/ML VIAL IV. PRN (04:59)
[2017-04-16] MEDS: HEPARIN SOD 5000 UNIT/0.5 ML CARP SQ SCH ×4 (05:17→22:00)
[2017-04-16] MEDS: LEVOTHYROXINE 150 MCG TAB PO SCH (05:18)
[2017-04-16 06:15] LABS: ESTIMATED AVERAGE GLUCOSE 166 mg/dl; HA1C FLAG Normal (Normal)
[2017-04-16] MEDS: AMLODIPINE BESYLATE 5 MG TAB PO SCH (08:29)
[2017-04-16] MEDS: LORAZEPAM 0.5 MG TAB PO SCH ×2 (08:29→21:16)
[2017-04-16] MEDS: HydrALAZINE 10 MG TAB PO SCH ×3 (08:30→21:09)
[2017-04-16] MEDS: CARVEDILOL 12.5 MG TAB PO SCH ×2 (08:30→21:11)
[2017-04-16] MEDS: CLONIDINE HCL 0.3 MG TAB PO SCH ×2 (08:32→21:10)
[2017-04-16] MEDS: INSULIN ASPART 100 UNITS/ML 3 ML PEN SC SCH ×4 (08:37→21:00)
--- NOTE | 2017-04-16 10:22 | DIAGNOSTIC IMAGING REPORT ---
[facility]UB CLINICAL HISTORY: nausea/vomiting pain COMPARISON STUDY: No previous studies for comparison. FINDINGS: Nonobstructive bowel pattern. No abnormal calcifications. Findings consistent with a complete fusion of the lumbar spine. No acute bony abnormality. Moderate degenerative change of both hips as well as symphysis pubis. IMPRESSION: No acute process. Chronic and postoperative change. The above report was generated using voice recognition software. It may contain grammatical, syntax or spelling errors. Electronically signed by: Bill Burkett M.D. 04/16/2017 10:20 AM Dictated Date/Time: 04/16/2017 10:19 AM
[2017-04-16] MEDS: ACETAMINOPHEN 325 MG TAB PO PRN (13:52)
--- NOTE | 2017-04-16 14:19 | Pharmacy Progress Note ---
Glycemic Control: Initial Note Date of Service Apr 16, 2017. Scope Glycemic Pharmacist to provide recommendations to improve glycemic control (all ICU patients are screened for hyperglycemia and treatment recommendations are provided per protocol). Pt identified with hyperglycemia (BSG above 180) while admitted to [facility] ([facility]). Subjective The patient is a 77 year old male admitted on Apr 15, 2017 at 06:08 for hypertensive urgency, KYRA and flu-like symptoms. Patient's past medical history is significant for diabetes mellitus. Objective Height (Feet): 5 Height (Inches): 7.00 Weight (Kilograms): 87.900 Accuchecks BSG (last 24hrs): Test 04/15/17 16:16 04/15/17 20:19 04/16/17 03:58 04/16/17 06:45 Bedside Glucose 188 mg/dl (70-99) 217 mg/dl (70-99) 232 mg/dl (70-99) Random Glucose 243 mg/dl (70-99) Test 04/16/17 11:19 Bedside Glucose 228 mg/dl (70-99) Laboratory Data (last 24hrs) Test 04/16/17 03:58 Anion Gap 4.0 mmol/L BUN/Creatinine Ratio 11.3 Blood Urea Nitrogen 19 mg/dl Creatinine 1.72 mg/dl Potassium Level 4.0 mmol/L Sodium Level 133 mmol/L White Blood Count 10.65 K/uL Red Blood Count 4.60 M/uL Hemoglobin 14.1 g/dL Hematocrit 40.2 % Mean Corpuscular Volume 87.4 fL Mean Corpuscular Hemoglobin 30.7 pg Mean Corpuscular Hemoglobin Concent 35.1 g/dl Platelet Count 250 K/uL Neutrophils (%) (Auto) 81.9 % Lymphocytes (%) (Auto) 9.9 % Monocytes (%) (Auto) 7.6 % Eosinophils (%) (Auto) 0.0 % Basophils (%) (Auto) 0.2 % Neutrophils # (Auto) 8.73 K/uL Lymphocytes # (Auto) 1.05 K/uL Monocytes # (Auto) 0.81 K/uL Eosinophils # (Auto) 0.00 K/uL Basophils # (Auto) 0.02 K/uL Recent Pertinent Medications Outpatient Anti-diabetic Regimen: * Metformin ER 750mg PO BID * A1c = 7.4% 11/21/16 The patient is currently receiving: * Basal Insulin: Lantus 5 units every 24 hours dosed at bedtime * Correctional Insulin: Novolog Correction per scale ACHS Goal Range: Low 140 mg/dL - High 180 mg/dL Correction Factor: 50 mg/dL/unit * Prandial Insulin: Per carb ratio of 1 unit per 16 grams CHO consumed * Oral Agents: None Risk Factors for Insulin Resistance: * Steroids: n/a * Infection: receiving Levofloxacin for possible bronchitis * Pressors: n/a * IVF: n/a * Recent Surgery: n/a * Diet: ordered T2DM/AHA diet * Mechanical Ventilation: n/a Assessment & Plan ASSESSMENT: 04/16/17 * BSGs have been elevated above goal since admission * Current BSG pattern suggests basal insulin deficiency. Fasting BSG 243 this AM w/ 5 units Lantus on board. Based upon the patient's weight and current BSGs he likely needs a larger dose. * The CF and CR are rather low as well and have failed to produce improvement in BSGs RECOMMEND: * Increasing Lantus to 12 units SQ BID * Changing correction factor 30 mg/dl/unit * Changing carb ratio 1 unit per 10 grams CHO consumed * Changing goal range to Low 120 mg/dL - High 160 mg/dL Pharmacy will continue to provide recommendations in EMR while patient admitted to /. Physicians may request pharmacy to continue to follow patient when transferred out of the ICU and/or consult pharmacy to write glycemic control orders * Please note that the plan above was derived based on current level of insulin resistance and hospital stress. These recommendations are appropriate for inpatient admission only. Plan of care upon discharge will need to be reassessed to avoid potential outpatient hypo/hyperglycemia. Thank you.
--- NOTE | 2017-04-16 14:43 | CARDIOLOGY PROGRESS NOTE ---
DATE: 04/16/2017 SUBJECTIVE: The patient was seen and examined at the bedside. Medication changes made last evening to improve blood pressure control. Episode of emesis and nausea noted last night as well as this morning. The patient denies any chest pain or shortness of breath. Markedly elevated blood pressures noted last night including systolic blood pressures as high as 219 and a diastolic blood pressure of 155. Carvedilol increased to 12.5 mg twice daily, amlodipine increased to 5 mg daily, and low dose hydralazine, 10 mg t.i.d. added. Blood pressure has improved this morning. The patient's nausea has resolved. There is no significant troponin elevation on repeat testing. His EKG is nondiagnostic due to underlying left bundle branch block. The patient denies abdominal pain, focal weakness, blurred vision, dysphasia, or gait instability. Feeling somewhat fatigued at this time. No orthopnea or PND. No lower extremity edema. Low grade fever noted x2 yesterday as well. REVIEW OF SYSTEMS: Pertinent positives are noted above. A comprehensive 10-system review is otherwise negative. MEDICATIONS: Reviewed via EMR. Please see list for details. LABORATORY DATA: Sodium 133, potassium 4.0, chloride 98, CO2 of 31, BUN 19, creatinine 1.72, and glucose 232. Triglycerides are 348, total cholesterol 177, and LDL 71. White blood count 10.65, hemoglobin is 14.1, and platelet count is 250. INR 0.9. Influenza screen is negative. PHYSICAL EXAMINATION: VITAL SIGNS: Temperature, T-max overnight 37.7 degrees centigrade, current temperature 37.2 degrees centigrade, pulse was 77 beats per minute, blood pressure 138/68 and SaO2 is 93% on room air. GENERAL: NAD, fatigued, awake, alert, and oriented x3. HEENT: His mucous membranes are moist. There is no scleral icterus. Conjunctivae are pink. NECK: Supple without JVD or HJR. There is no carotid bruit. HEART: Regular with a normal S1 and S2. No murmur, rub or gallop. LUNGS: Clear. There is no rales, rhonchi or wheezes. ABDOMEN: Soft and nontender. There is no rebound or guarding. EXTREMITIES: Warm and dry without clubbing, cyanosis or edema. NEUROLOGIC: Demonstrates no focal deficits. FINAL IMPRESSION: 1. Hypertensive urgency -- the patient is improving with medical therapy as noted above. 2. Transient nausea and vomiting with intermittent low-grade temperatures and symptoms consistent with viral upper respiratory tract infection. Transient nausea, possibly related to significantly elevated blood pressure and/or could be the cause of spike in blood pressure noted last evening as well. Currently, the patient has recovered and blood pressure has improved. No significant trend in troponins. Suspect gastrointestinal etiology. 3. Acute on chronic renal insufficiency due to volume depletion and vomiting. 4. Left bundle branch block. 5. Multiple drug intolerances. PLAN AND RECOMMENDATIONS: Continue current antihypertensive medications as listed in the EMR. I would not make any further changes over the next 24 hours. Rather continue to monitor blood pressure closely and use small dose of p.r.n. intravenous medications for systolic blood pressure greater than 180 mmHg. Antiemetics as per the internal medicine service. Continue empiric antibiotics as per internal medicine. Cardiology will continue to follow at this time.
--- NOTE | 2017-04-16 17:29 | Progress Note ---
Internal Med Progress Note Date of Service: Apr 16, 2017. Provider Documentation: was nauseous and vomited today morning having mild headache afebrile denies chest pain or sob no cough now Exam: General-alert and awake and not in distress ENT- normal hearing Neck-no neck masses Lungs-cta b/l no wheezing no crackles present Heart-s1 and s2 heard regular rate and rhythm no murmurs Abdomen-soft BS present non tender no distension Extremities- no edema no erythema Neuro-alert and awake moves extremities ASSESSMENT & PLAN: Hypertensive Urgency: ? Compliance Chronically uncontrolled has multiple drug allergies Quit taking Losartan secondary to side effects cardiology and nephrology following currently on: nitro patch coreq 12.5mg bid clonidine 0.3mg bid amlodipine 5mg daily hydralazine 10mg tid iv hydralazine prn sbp>180 seems improving close monitor Mild elevation in troponin likely secondary to HTN Urgency ekg unremarkable trropnin trended down echo normal EF. asymptomatic ARF on CKD III: Cr slightly elevated: 1.7 Baseline cr 1.4 holding torsemide will monitor Flu Like symptoms: Influenza negative CXR: No signs of consolidation Empirically started on Levaquin has n/v today. kub unremarkable mostly viral illness DM II: ISS, Lantus Last A1C:7.4 on 11/11/16 Holding Oral DM meds on lantus and iss will monitor H/O Thyroid cancer S/P resection H/O Prostate cancer S/P cryotherapy Continue levothyroxine TSH: normal Gout: Continue Allopurinol Anxiety disorder: Continue home meds DVT Px: Heparin SQ Code Status: Full Code DISPOSITION monitor in tele to be determined Vital Signs: Date Time Temp Pulse Resp B/P (MAP) Pulse Ox O2 Delivery O2 Flow Rate FiO2 04/16/17 15:45 36.9 97 18 154/84 (107) 93 Room Air 04/16/17 12:00 Room Air 04/16/17 11:31 37.2 77 16 138/68 (91) 93 Room Air 126/82 (97) 04/16/17 08:00 Room Air 04/16/17 07:38 37.4 108 20 167/93 (117) 93 Room Air 04/16/17 05:24 170/80 (110) 04/16/17 04:00 37.7 109 20 180/100 (126) 94 Room Air 04/16/17 04:00 94 Room Air 12/8/17 02:35 165/60 (95) 04/16/17 00:03 123 209/155 (173) 04/15/17 23:59 93 Room Air 04/15/17 23:45 116 219/143 (168) 04/15/17 23:29 37.0 97 20 200/100 (133) 93 Room Air 04/15/17 22:12 202/100 (134) 04/15/17 20:00 98 Room Air 04/15/17 19:04 37.6 75 18 196/124 (148) 92 Room Air Lab Results: Results Past 24 Hours Test 04/15/17 20:19 04/15/17 21:53 04/16/17 03:58 04/16/17 06:45 Range/Units Bedside Glucose 217 232 70-99 mg/dl Creatine Kinase MB 11.3 9.6 0.5-3.6 ng/ml Creatine Kinase MB Ratio 0-3.0 Troponin I 0.041 0-0.045 ng/ml White Blood Count 10.65 4.8-10.8 K/uL Red Blood Count 4.60 4.7-6.1 M/uL Hemoglobin 14.1 14.0-18.0 g/dL Hematocrit 40.2 42-52 % Mean Corpuscular Volume 87.4 80-100 fL Mean Corpuscular Hemoglobin 30.7 25-34 pg Mean Corpuscular Hemoglobin Concent 35.1 32-36 g/dl Platelet Count 250 130-400 K/uL Neutrophils (%) (Auto) 81.9 % Lymphocytes (%) (Auto) 9.9 % Monocytes (%) (Auto) 7.6 % Eosinophils (%) (Auto) 0.0 % Basophils (%) (Auto) 0.2 % Neutrophils # (Auto) 8.73 1.4-6.5 K/uL Lymphocytes # (Auto) 1.05 1.2-3.4 K/uL Monocytes # (Auto) 0.81 0.11-0.59 K/uL Eosinophils # (Auto) 0.00 0-0.5 K/uL Basophils # (Auto) 0.02 0-0.2 K/uL Immature Granulocyte % (Auto) 0.4 % Immature Granulocyte # (Auto) 0.04 0.00-0.02 K/uL Sodium Level 133 136-145 mmol/L Potassium Level 4.0 3.5-5.1 mmol/L Chloride Level 98 98-107 mmol/L Carbon Dioxide Level 31 21-32 mmol/L Anion Gap 4.0 3-11 mmol/L Blood Urea Nitrogen 19 7-18 mg/dl Creatinine 1.72 0.60-1.40 mg/dl Est Creatinine Clear Calc Drug Dose 39.4 ml/min Estimated GFR () 43.8 Estimated GFR (Non- 37.8 BUN/Creatinine Ratio 11.3 10-20 Random Glucose 243 70-99 mg/dl Calcium Level 8.9 8.5-10.1 mg/dl Magnesium Level 2.0 1.8-2.4 mg/dl Triglycerides Level 348 0-150 mg/dl Cholesterol Level 177 0-200 mg/dl HDL Cholesterol 36 mg/dl LDL Cholesterol, Calculated 71 mg/dl VLDL Cholesterol, Calculated 70 mg/dl Cholesterol/HDL Ratio 4.9 Test 04/16/17 11:19 04/16/17 16:14 Range/Units Bedside Glucose 228 257 70-99 mg/dl
--- NOTE | 2017-04-16 18:46 | Nephrology Progress Note ---
Nephrology Progress Note Date of Service: Apr 16, 2017. Subjective 77 yo male with hypertension with labile bp. has many drug sensitivities. pt feels much better tonight. bp relatively improved compared to admission but not yet to goal. thankfully feels better. Objective Date Time Temp Pulse Resp B/P (MAP) Pulse Ox O2 Delivery O2 Flow Rate FiO2 04/16/17 16:00 93 Room Air 04/16/17 15:45 36.9 97 18 154/84 (107) 93 Room Air 04/16/17 12:00 Room Air 04/16/17 11:31 37.2 77 16 138/68 (91) 93 Room Air 126/82 (97) 04/16/17 08:00 Room Air 04/16/17 07:38 37.4 108 20 167/93 (117) 93 Room Air 04/16/17 05:24 170/80 (110) 04/16/17 04:00 37.7 109 20 180/100 (126) 94 Room Air 04/16/17 04:00 94 Room Air 04/16/17 02:35 165/60 (95) 04/16/17 00:03 123 209/155 (173) 04/15/17 23:59 93 Room Air 04/15/17 23:45 116 219/143 (168) 04/15/17 23:29 37.0 97 20 200/100 (133) 93 Room Air 04/15/17 22:12 202/100 (134) 04/15/17 20:00 98 Room Air 04/15/17 19:04 37.6 75 18 196/124 (148) 92 Room Air Physical Exam: General-aaox3 Eyes-no scleral icterus ENT-mmm Neck-supple Lungs-cta Heart-rrr Abdomen-bs+ s/nt/nd Extremities-no c/c/e Neuro-nonfocal Current Inpatient Medications Medications (Trade) Dose Ordered Sig/Laurie Route Start Time Stop Time Status Last Admin Dose Admin Heparin Sodium (Porcine) (Heparin Sq 5000 Unit/0.5ml) 5,000 unit Q8 SQ 04/15/17 14:00 05/15/17 13:59 04/15/17 20:54 5,000 UNIT Acetaminophen (Tylenol Tab) 650 mg Q4H PRN PO 04/15/17 06:15 05/15/17 06:14 04/16/17 13:52 650 MG Ondansetron HCl (Zofran Inj) 4 mg Q6H PRN IV 04/15/17 06:15 05/15/17 06:14 04/16/17 02:41 4 MG Nitroglycerin (Nitrostat Tab) 0.4 mg UD PRN SL 04/15/17 06:15 05/15/17 06:14 Insulin Glargine (Lantus Solostar Pen) 5 units HS SC 04/15/17 21:00 05/15/17 20:59 04/15/17 21:02 5 UNITS Insulin Aspart (novoLOG ASPART) SLIDING SCALE If C... ACHS SC 04/15/17 07:00 05/15/17 06:59 04/16/17 17:08 7 UNITS Glucose (Glucose 40% Gel) 15-30 GRAMS 15 GRAMS... UD PRN PO 04/15/17 06:30 05/15/17 06:29 Glucose (Glucose Chew Tab) 4-8 Tablets 4 Tabl... UD PRN PO 04/15/17 06:30 05/15/17 06:29 Dextrose (Dextrose 50% 50ML Syringe) 25-50ML OF 50% DW IV FOR... UD PRN IV 04/15/17 06:30 05/15/17 06:29 Glucagon (Glucagon Inj) 1 mg UD PRN SQ 04/15/17 06:30 05/15/17 06:29 Aspirin (Ecotrin Tab) 81 mg QPM PO 04/15/17 21:00 05/15/17 20:59 04/15/17 19:34 81 MG Atorvastatin Calcium (Lipitor Tab) 10 mg QPM PO 04/15/17 21:00 05/15/17 20:59 04/15/17 19:34 10 MG Clonidine HCl (Catapres Tab) 0.3 mg BID PO 04/15/17 21:00 05/15/17 20:59 04/16/17 08:32 0.3 MG Lorazepam (Ativan Tab) 0.5 mg BID PO 04/15/17 09:00 05/15/17 08:59 04/16/17 08:29 0.5 MG Torsemide (Demadex Tab) 10 mg DAILY PO 04/15/17 09:00 05/15/17 08:59 Future Hold 04/15/17 08:28 10 MG Levofloxacin (Levaquin Tab) 750 mg Q2D@1100 PO 04/15/17 08:00 04/22/17 07:59 04/15/17 08:28 750 MG Miscellaneous (Iv Fluids Completed) 1 ea PRN PRN N/A 04/15/17 07:00 04/15/18 06:59 Hydralazine HCl (HydrALAZINE INJ) 5 mg Q6 PRN IV. 04/15/17 07:45 05/15/17 07:44 04/16/17 04:59 5 MG Nitroglycerin (Nitroglycerin 2% Oint) 0.5 inch Q6H EXT 04/15/17 08:00 05/15/17 07:59 04/16/17 13:47 0.5 INCH Levofloxacin (Consult) 1 ea UD PRN N/A 04/15/17 08:00 05/15/17 07:59 Levothyroxine Sodium (Synthroid Tab) 150 mcg DAILYBB PO 04/16/17 06:00 05/16/17 05:59 04/16/17 05:18 150 MCG Carvedilol (Coreg Tab) 12.5 mg BID PO 04/15/17 21:00 05/15/17 20:59 04/16/17 08:30 12.5 MG Tramadol HCl (Ultram Tab) 50 mg Q4H PRN PO 04/15/17 14:00 05/15/17 13:59 04/15/17 14:20 50 MG Amlodipine Besylate (Norvasc Tab) 5 mg QAM PO 04/16/17 09:00 05/15/17 08:59 04/16/17 08:29 5 MG Hydralazine HCl (Apresoline Tab) 10 mg TID PO 04/15/17 21:00 05/15/17 20:59 04/16/17 13:47 10 MG Last 24 Hours Test 04/15/17 20:19 04/15/17 21:53 04/16/17 03:58 04/16/17 06:45 Bedside Glucose 217 mg/dl 232 mg/dl Creatine Kinase MB 11.3 ng/ml 9.6 ng/ml Creatine Kinase MB Ratio Troponin I 0.041 ng/ml White Blood Count 10.65 K/uL Red Blood Count 4.60 M/uL Hemoglobin 14.1 g/dL Hematocrit 40.2 % Mean Corpuscular Volume 87.4 fL Mean Corpuscular Hemoglobin 30.7 pg Mean Corpuscular Hemoglobin Concent 35.1 g/dl Platelet Count 250 K/uL Neutrophils (%) (Auto) 81.9 % Lymphocytes (%) (Auto) 9.9 % Monocytes (%) (Auto) 7.6 % Eosinophils (%) (Auto) 0.0 % Basophils (%) (Auto) 0.2 % Neutrophils # (Auto) 8.73 K/uL Lymphocytes # (Auto) 1.05 K/uL Monocytes # (Auto) 0.81 K/uL Eosinophils # (Auto) 0.00 K/uL Basophils # (Auto) 0.02 K/uL Immature Granulocyte % (Auto) 0.4 % Immature Granulocyte # (Auto) 0.04 K/uL Sodium Level 133 mmol/L Potassium Level 4.0 mmol/L Chloride Level 98 mmol/L Carbon Dioxide Level 31 mmol/L Anion Gap 4.0 mmol/L Blood Urea Nitrogen 19 mg/dl Creatinine 1.72 mg/dl Est Creatinine Clear Calc Drug Dose 39.4 ml/min Estimated GFR () 43.8 Estimated GFR (Non- 37.8 BUN/Creatinine Ratio 11.3 Random Glucose 243 mg/dl Calcium Level 8.9 mg/dl Magnesium Level 2.0 mg/dl Triglycerides Level 348 mg/dl Cholesterol Level 177 mg/dl HDL Cholesterol 36 mg/dl LDL Cholesterol, Calculated 71 mg/dl VLDL Cholesterol, Calculated 70 mg/dl Cholesterol/HDL Ratio 4.9 Test 04/16/17 11:19 04/16/17 16:14 Bedside Glucose 228 mg/dl 257 mg/dl Assessment & Plan hypertension: have difficulty with controlling bp. currently on coreg, norvasc , and hydralazine. agree with cardiology of no changes today. plan on slow titration of meds with continued follow up of bp. gout: pt does not tolerate daily allopurinol and only takes it when he has pain. have stopped the allopurinol.
[2017-04-16] MEDS: ATORVASTATIN 10 MG TAB PO SCH (21:11)
[2017-04-16] MEDS: ASPIRIN 81 MG ECTAB PO SCH (21:11)
[2017-04-16] MEDS: INSULIN GLARGINE SOLOSTAR 100 UNITS/ML 3 ML PEN SC SCH (21:14)
[2017-04-17] VITALS (8 sets, daily range): BP systolic 139–168; BP diastolic 84–98; PULSE 63–82; TEMP 36.5–37.1; O2SAT 91–95
[2017-04-17] MEDS: NITROGLYCERIN OINT 2% 1GM PACKET EXT SCH ×2 (02:41→07:57)
[2017-04-17] MEDS: ACETAMINOPHEN 325 MG TAB PO PRN (02:51)
[2017-04-17] MEDS: HEPARIN SOD 5000 UNIT/0.5 ML CARP SQ SCH ×3 (05:41→22:00)
[2017-04-17] MEDS: LEVOTHYROXINE 150 MCG TAB PO SCH (05:46)
[2017-04-17] MEDS: CARVEDILOL 12.5 MG TAB PO SCH ×2 (07:56→20:47)
[2017-04-17] MEDS: AMLODIPINE BESYLATE 5 MG TAB PO SCH (07:56)
[2017-04-17] MEDS: HydrALAZINE 10 MG TAB PO SCH (07:56)
[2017-04-17] MEDS: LORAZEPAM 0.5 MG TAB PO SCH ×2 (07:57→20:47)
[2017-04-17] MEDS: CLONIDINE HCL 0.3 MG TAB PO SCH ×2 (07:58→20:48)
[2017-04-17] MEDS: INSULIN ASPART 100 UNITS/ML 3 ML PEN SC SCH ×4 (08:03→20:48)
[2017-04-17 08:34] LABS: BUN/CREATININE RATIO 12.3 (10-20); CREATININE 1.93 mg/dl (0.60-1.40); MAGNESIUM 2.3 mg/dl (1.8-2.4); POTASSIUM 3.4 mmol/L (3.5-5.1)
[2017-04-17] MEDS ORDERED: POTASSIUM CHLORIDE 10 MEQ TABCR PO STA (08:59)
[2017-04-17] MEDS ORDERED: SODIUM CHLORIDE 0.9% 1000ML 1,000 ML IV SCH (09:00)
[2017-04-17] MEDS: LEVOFLOXACIN 750 MG TAB PO SCH (10:38)
--- NOTE | 2017-04-17 10:39 | CARDIOLOGY PROGRESS NOTE ---
DATE: 04/17/2017 DATE: 04/17/2017 The patient seen and examined. Chart, medications, telemetry reviewed. SUBJECTIVE: Blood pressures are trending towards better control. Notes no chest pains, dizziness, lightheadedness, syncope or near syncope. Has noted increasing lower extremity edema which he attributes to initiation of amlodipine. He is anxious to be considered for discharge. Overall, has been feeling well. Notes he expects to be compliant with medical therapies. ALLERGIES: MEDICATIONS: PHYSICAL EXAMINATION: VITAL SIGNS: Heart rate is 82. Blood pressure is 152/84. HEAD, EYES, EARS, NOSE, AND THROAT EXAMINATION: Normocephalic, atraumatic. Nares without discharge. Throat was clear. NECK: Supple without thyromegaly, lymphadenopathy, JVD. There are no carotid bruits. LUNGS: Clear. CARDIOVASCULAR: Exam is regular. There is no S3 gallop. ABDOMEN: Soft, nontender. EXTREMITIES: Without cyanosis or clubbing. There is 1+ lower extremity edema. IMPRESSION: A 77-year-old male with a history of longstanding hypertension with hypertensive urgency now coming under better control. Laboratory studies this morning demonstrated a creatinine of 1.93 and a potassium of 3.4, which has been supplemented. RECOMMENDATIONS: Due to complaints about amlodipine and edema plan on reducing amlodipine to 2.5 mg per day while titrating hydralazine to 12.5 mg 3 times per day as a half of a 25 mg tablet allowing room for titration as an outpatient. Would continue other medications with potassium supplements ordered, may consider the use of amiloride as additional agent post hospital discharge.
--- NOTE | 2017-04-17 12:12 | Nephrology Progress Note ---
Nephrology Progress Note Date of Service: Apr 17, 2017. Subjective c/o disrupted sleep; no n/v, no dypsnea, no uncontrolled pain, no focal numbness /weakness or new/concerning voiding sx Objective Date Time Temp Pulse Resp B/P (MAP) Pulse Ox O2 Delivery O2 Flow Rate FiO2 04/17/17 07:50 36.9 82 18 152/84 (106) 94 Room Air 04/17/17 04:00 95 Nasal Cannula 1.0 04/17/17 02:39 36.7 69 18 139/91 (107) 91 Room Air 04/16/17 23:59 95 Nasal Cannula 1.0 04/16/17 23:06 36.7 66 18 121/76 (91) 90 Room Air 04/16/17 21:16 36.8 70 169/96 (120) 93 Room Air 04/16/17 20:00 Room Air 04/16/17 16:00 93 Room Air 04/16/17 15:45 36.9 97 18 154/84 (107) 93 Room Air 04/16/17 12:00 Room Air 04/16/17 11:31 37.2 77 16 138/68 (91) 93 Room Air 126/82 (97) 04/16/17 08:00 Room Air Physical Exam: General-aaox3 Eyes-no scleral icterus ENT-mmm Neck-supple Lungs-cta Heart-rrr Abdomen-bs+ s/nt/nd Extremities-no c/c/e Neuro-nonfocal Current Inpatient Medications Medications (Trade) Dose Ordered Sig/Laurie Route Start Time Stop Time Status Last Admin Dose Admin Heparin Sodium (Porcine) (Heparin Sq 5000 Unit/0.5ml) 5,000 unit Q8 SQ 04/15/17 14:00 05/15/17 13:59 04/15/17 20:54 5,000 UNIT Acetaminophen (Tylenol Tab) 650 mg Q4H PRN PO 04/15/17 06:15 05/15/17 06:14 04/17/17 02:51 650 MG Ondansetron HCl (Zofran Inj) 4 mg Q6H PRN IV 04/15/17 06:15 05/15/17 06:14 04/16/17 02:41 4 MG Nitroglycerin (Nitrostat Tab) 0.4 mg UD PRN SL 04/15/17 06:15 05/15/17 06:14 Insulin Glargine (Lantus Solostar Pen) 5 units HS SC 04/15/17 21:00 05/15/17 20:59 04/16/17 21:14 5 UNITS Insulin Aspart (novoLOG ASPART) SLIDING SCALE If C... ACHS SC 04/15/17 07:00 05/15/17 06:59 04/16/17 17:08 7 UNITS Glucose (Glucose 40% Gel) 15-30 GRAMS 15 GRAMS... UD PRN PO 04/15/17 06:30 05/15/17 06:29 Glucose (Glucose Chew Tab) 4-8 Tablets 4 Tabl... UD PRN PO 04/15/17 06:30 05/15/17 06:29 Dextrose (Dextrose 50% 50ML Syringe) 25-50ML OF 50% DW IV FOR... UD PRN IV 04/15/17 06:30 05/15/17 06:29 Glucagon (Glucagon Inj) 1 mg UD PRN SQ 04/15/17 06:30 05/15/17 06:29 Aspirin (Ecotrin Tab) 81 mg QPM PO 04/15/17 21:00 05/15/17 20:59 04/16/17 21:11 81 MG Atorvastatin Calcium (Lipitor Tab) 10 mg QPM PO 04/15/17 21:00 05/15/17 20:59 04/16/17 21:11 10 MG Clonidine HCl (Catapres Tab) 0.3 mg BID PO 04/15/17 21:00 05/15/17 20:59 04/16/17 21:10 0.3 MG Lorazepam (Ativan Tab) 0.5 mg BID PO 04/15/17 09:00 05/15/17 08:59 04/16/17 21:16 0.5 MG Torsemide (Demadex Tab) 10 mg DAILY PO 04/15/17 09:00 05/15/17 08:59 Future Hold 04/15/17 08:28 10 MG Levofloxacin (Levaquin Tab) 750 mg Q2D@1100 PO 04/15/17 08:00 04/22/17 07:59 04/15/17 08:28 750 MG Miscellaneous (Iv Fluids Completed) 1 ea PRN PRN N/A 04/15/17 07:00 04/15/18 06:59 Hydralazine HCl (HydrALAZINE INJ) 5 mg Q6 PRN IV. 04/15/17 07:45 05/15/17 07:44 04/16/17 04:59 5 MG Nitroglycerin (Nitroglycerin 2% Oint) 0.5 inch Q6H EXT 04/15/17 08:00 05/15/17 07:59 04/17/17 02:41 0.5 INCH Levofloxacin (Consult) 1 ea UD PRN N/A 04/15/17 08:00 05/15/17 07:59 Levothyroxine Sodium (Synthroid Tab) 150 mcg DAILYBB PO 04/16/17 06:00 05/16/17 05:59 04/17/17 05:46 150 MCG Carvedilol (Coreg Tab) 12.5 mg BID PO 04/15/17 21:00 05/15/17 20:59 04/16/17 21:11 12.5 MG Tramadol HCl (Ultram Tab) 50 mg Q4H PRN PO 04/15/17 14:00 05/15/17 13:59 04/15/17 14:20 50 MG Amlodipine Besylate (Norvasc Tab) 5 mg QAM PO 04/16/17 09:00 05/15/17 08:59 04/16/17 08:29 5 MG Hydralazine HCl (Apresoline Tab) 10 mg TID PO 04/15/17 21:00 05/15/17 20:59 04/16/17 21:09 10 MG Last 24 Hours Test 04/16/17 11:19 04/16/17 16:14 04/16/17 20:07 04/17/17 06:36 Bedside Glucose 228 mg/dl 257 mg/dl 146 mg/dl 138 mg/dl Test 04/17/17 07:36 Assessment & Plan 77 yo male with hypertension with labile bp. has many drug sensitivities. pt cont to feel improved w/ improved bp and goal given 2.5 gm baseline proteinuria ultimately <130 systolic, aiming for sbp 140s while in hospital. hypertension: have difficulty with controlling bp. currently on coreg, norvasc , and hydralazine. cont current meds which are being further adjusted. agree w / changes today to lower CCB, gently increase hydralazine electrolyte disorders > sodium dropping ?mild volume overload though no findings on exam; no obvious offending dysnatremia meds. cont to monitor; if worsening in am will need to check urine studies; agree w/ po K repletion. gout: pt does not tolerate daily allopurinol and only takes it when he has pain. have stopped the allopurinol.
--- NOTE | 2017-04-17 16:17 | Progress Note ---
Internal Med Progress Note Date of Service: Apr 17, 2017. Provider Documentation: denies headache today nausea and abdominal discomfort improved no sob ior chest pain afebrile Exam: General-alert and awake and not in distress ENT- normal hearing Neck-no neck masses Lungs-cta b/l no wheezing no crackles present Heart-s1 and s2 heard regular rate and rhythm no murmurs Abdomen-soft BS present non tender no distension Extremities- no edema no erythema Neuro-alert and awake moves extremities ASSESSMENT & PLAN: Hypertensive Urgency: ? Compliance Chronically uncontrolled has multiple drug allergies Quit taking Losartan secondary to side effects cardiology and nephrology following currently on: coreq 12.5mg bid clonidine 0.3mg bid amlodipine 2.5mg daily hydralazine 12.5mg tid iv hydralazine prn sbp>180 stooped nitro paste will monitor Mild elevation in troponin likely secondary to HTN Urgency ekg unremarkable troponin trended down echo normal EF. asymptomatic ARF on CKD III: Cr slightly elevated: 1.9 Baseline cr 1.4 holding torsemide f/u labs in am Flu Like symptoms: Influenza negative CXR: No signs of consolidation Empirically started on Levaquin has n/v today. kub unremarkable mostly viral illness improved DM II: ISS, Lantus Last A1C:7.4 on 11/11/16 Holding Oral DM meds on lantus and iss will monitor H/O Thyroid cancer S/P resection H/O Prostate cancer S/P cryotherapy Continue levothyroxine TSH: normal Gout: on Allopurinol prn Anxiety disorder: Continue home meds DVT Px: Heparin SQ Code Status: Full Code DISPOSITION monitor in tele pt/ot possible d/c in am Vital Signs: Date Time Temp Pulse Resp B/P (MAP) Pulse Ox O2 Delivery O2 Flow Rate FiO2 04/17/17 15:26 36.7 63 18 93 Room Air 04/17/17 15:03 154/88 (110) 04/17/17 12:00 Room Air 04/17/17 12:00 36.5 70 18 140/89 (106) 93 Room Air 04/17/17 08:00 Room Air 04/17/17 07:50 36.9 82 18 152/84 (106) 94 Room Air 04/17/17 04:00 95 Nasal Cannula 1.0 04/17/17 02:39 36.7 69 18 139/91 (107) 91 Room Air 04/16/17 23:59 95 Nasal Cannula 1.0 04/16/17 23:06 36.7 66 18 121/76 (91) 90 Room Air 04/16/17 21:16 36.8 70 169/96 (120) 93 Room Air 04/16/17 20:00 Room Air Lab Results: Results Past 24 Hours Test 04/16/17 20:07 04/17/17 06:36 04/17/17 07:36 04/17/17 11:25 Range/Units Bedside Glucose 146 138 197 70-99 mg/dl Sodium Level 131 136-145 mmol/L Potassium Level 3.4 3.5-5.1 mmol/L Chloride Level 95 98-107 mmol/L Carbon Dioxide Level 27 21-32 mmol/L Anion Gap 9.0 3-11 mmol/L Blood Urea Nitrogen 24 7-18 mg/dl Creatinine 1.93 0.60-1.40 mg/dl Est Creatinine Clear Calc Drug Dose 34.7 ml/min Estimated GFR () 38.1 Estimated GFR (Non- 32.9 BUN/Creatinine Ratio 12.3 10-20 Random Glucose 149 70-99 mg/dl Calcium Level 9.0 8.5-10.1 mg/dl Magnesium Level 2.3 1.8-2.4 mg/dl
[2017-04-17] MEDS: ASPIRIN 81 MG ECTAB PO SCH (20:46)
[2017-04-17] MEDS: ATORVASTATIN 10 MG TAB PO SCH (20:46)
[2017-04-17] MEDS: INSULIN GLARGINE SOLOSTAR 100 UNITS/ML 3 ML PEN SC SCH (20:52)
[2017-04-18 04:37] VITALS: BP 168/100; PULSE 71; TEMP 36.8; O2SAT 95
[2017-04-18 05:35] VITALS: BP 164/82
[2017-04-18] MEDS: HEPARIN SOD 5000 UNIT/0.5 ML CARP SQ SCH (05:46)
[2017-04-18] MEDS: LEVOTHYROXINE 150 MCG TAB PO SCH (05:47)
[2017-04-18 06:51] LABS: HEMATOCRIT 37.5 % (42-52); MEAN CELL VOLUME 86.8 fL (80-100); MEAN CORPUSCULAR HGB CONC 35.7 g/dl (32-36); MEAN PLATELET VOLUME 9.7 fL (7.4-10.4); PLATELET COUNT 236 K/uL (130-400); RED BLOOD COUNT 4.32 M/uL (4.7-6.1); WHITE BLOOD COUNT 6.56 K/uL (4.8-10.8)
[2017-04-18 07:51] VITALS: BP 160/88; PULSE 84; TEMP 36.8; O2SAT 98
[2017-04-18] MEDS: LORAZEPAM 0.5 MG TAB PO SCH (07:53)
[2017-04-18] MEDS: CLONIDINE HCL 0.3 MG TAB PO SCH (07:54)
[2017-04-18] MEDS: CARVEDILOL 12.5 MG TAB PO SCH (07:54)
[2017-04-18] MEDS: INSULIN ASPART 100 UNITS/ML 3 ML PEN SC SCH (08:00)
[2017-04-18] MEDS ORDERED: AMLODIPINE BESYLATE 5 MG TAB PO SCH (09:00)
[2017-04-18 09:30] LABS: BUN/CREATININE RATIO 14.3 (10-20); CALCIUM 8.9 mg/dl (8.5-10.1); CREATININE 1.61 mg/dl (0.60-1.40); POTASSIUM 3.2 mmol/L (3.5-5.1)
[2017-04-18] MEDS ORDERED: POTASSIUM CHLORIDE 20 MEQ TABCR PO ONE (10:00)
[2017-04-18] MEDS ORDERED: CRG125 PO ×2 (11:21→11:43)
[2017-04-18] MEDS ORDERED: APR25 PO ×2 (11:21→11:44)
[2017-04-18] MEDS ORDERED: LVQ750 PO (11:21)
[2017-04-18] MEDS ORDERED: SITA50TA PO ×2 (11:21→11:44)
--- NOTE | 2017-04-18 11:25 | Discharge Instructions ---
Discharge Instructions Date of Service Apr 18, 2017. Admission Reason for Admission: Hypertensive Urgency Discharge Discharge Diagnosis / Problem: hypertensive urgency Discharge Goals Goal(s): Decrease discomfort, Improve function Activity Recommendations Activity Limitations: resume your previous activity . Instructions / Follow-Up Instructions / Follow-Up FOLLOWUP WITH FAMILY DOCTOR WITH IN A WEEK. ( PATIENT WILL BE CALLED WITH APPOINTMENT). FOLLOWUP WITH CARDIOLOGY IN A WEEK. NEW MEDICATION: COREG 12.5MG TWICE DAILY HYDRALAZINE 12.5MG THREE TIMES DAILY JANUVIA 50MG ONCE DAILY. STOPPED MEDICATION: COREG 6.25MG TWICE DAILY METFORMIN 750MG TWICE DAILY.( RENAL FUNCTION IS NOT ADEQUATE) Current Hospital Diet Patient's current hospital diet: Diabetes Type 2 Diet, AHA Diet (Heart Healthy) Discharge Diet Recommended Diet: AHA Diet (Heart Healthy), Diabetes Type 2 Diet Pending Studies Studies pending at discharge: no Laboratory Results Hemoglobin A1c Test 04/15/17 01:20 Range/Units Estimated Average Glucose 166 mg/dl Hemoglobin A1c 7.4 H 4.5-5.6 % Lipid Panel Test 04/16/17 03:58 Range/Units Triglycerides Level 348 H 0-150 mg/dl Cholesterol Level 177 0-200 mg/dl HDL Cholesterol 36 mg/dl Cholesterol/HDL Ratio 4.9 LDL Cholesterol, Calculated 71 mg/dl Medical Emergencies . Who to Call and When: Medical Emergencies: If at any time you feel your situation is an emergency, please call 911 immediately. . Non-Emergent Contact Non-Emergency issues call your: Primary Care Provider . . "Provider Documentation" section prepared by Michael Briceño. . VTE Core Measure Inpt VTE Proph given/why not?: Unfractionated heparin SQ (REFUSED)
[2017-04-18] MEDS ORDERED: NON-FORMULARY MEDICATION SCH (11:30)
[2017-04-18 11:37] VITALS: BP 160/88; PULSE 84; TEMP 36.8; O2SAT 98
[2017-04-18 12:05] VITALS: BP 123/80; PULSE 66; TEMP 36.7; O2SAT 95
--- NOTE | 2017-04-18 14:15 | CARDIOLOGY PROGRESS NOTE ---
DATE: 04/18/2017 The patient seen and examined. Chart, medications, telemetry reviewed. SUBJECTIVE: Blood pressures are trending, appears to be tolerating hydralazine with some concerns per patient. Notes no chest pains, dizziness, lightheadedness, syncope or near syncope. OBJECTIVE: VITAL SIGNS: Heart rate 66, blood pressure is 123/80. NECK: Thin. There is no jugular venous distention. LUNGS: Clear. CARDIOVASCULAR: Regular. There is no S3 gallop. ABDOMEN: Soft, nontender. EXTREMITIES: Without cyanosis or clubbing. There is trace pedal edema only. IMPRESSION: A 77-year-old male with issues of longstanding hypertension and hypertensive urgency. Laboratory studies have been reviewed. Potassium is 3.2 this morning, creatinine declined to 1.6. The patient clinically stable for discharge. We would discharge him on current medical regimen. Discussed hydralazine in detail with the patient. We will continue to trial all other medications including torsemide and potassium will be continued.
--- NOTE | 2017-04-18 18:44 | Progress Note ---
Internal Med Progress Note Date of Service: Apr 18, 2017. Provider Documentation: denies headache today resting comfortably no nausea afebrile want to go home Exam: General-alert and awake and not in distress ENT- normal hearing Neck-no neck masses Lungs-cta b/l no wheezing no crackles present Heart-s1 and s2 heard regular rate and rhythm no murmurs Abdomen-soft BS present non tender no distension Extremities- no edema no erythema Neuro-alert and awake moves extremities ASSESSMENT & PLAN: Hypertensive Urgency: ? Compliance Chronically uncontrolled has multiple drug allergies Quit taking Losartan secondary to side effects cardiology and nephrology following currently on: coreq 12.5mg bid clonidine 0.3mg bid amlodipine 2.5mg daily hydralazine 12.5mg tid f/u closely with pcp and cardiology Mild elevation in troponin likely secondary to HTN Urgency ekg unremarkable troponin trended down echo normal EF. asymptomatic ARF on CKD III: Cr slightly elevated Baseline cr 1.4 holding torsemide cr 1.6 on discharge f/u with pcp and nephrology Flu Like symptoms: Influenza negative CXR: No signs of consolidation Empirically started on Levaquin has n/v today. kub unremarkable mostly viral illness improved DM II: ISS, Lantus Last A1C:7.4 on 11/11/16 Holding Oral DM meds on lantus and iss stopped metformin on discharge for elevated Cr and CKD stage 3 started on Januvia close f/u with pcp H/O Thyroid cancer S/P resection H/O Prostate cancer S/P cryotherapy Continue levothyroxine TSH: normal Gout: on Allopurinol prn Anxiety disorder: Continue home meds Discharged home Vital Signs: Date Time Temp Pulse Resp B/P (MAP) Pulse Ox O2 Delivery O2 Flow Rate FiO2 04/18/17 12:05 36.7 66 16 123/80 (94) 95 Room Air 04/18/17 11:37 36.8 84 20 98 Room Air 04/18/17 08:00 Room Air 04/18/17 07:51 36.8 84 20 160/88 (112) 98 04/18/17 05:35 164/82 (109) 04/18/17 04:37 36.8 71 20 168/100 (122) 95 Room Air 04/18/17 04:00 Room Air 04/17/17 23:59 Room Air 04/17/17 23:13 36.9 68 20 168/98 (121) 94 Room Air 04/17/17 20:00 Room Air 04/17/17 19:45 37.1 75 20 148/88 (108) 95 Room Air Lab Results: Results Past 24 Hours Test 04/17/17 20:21 04/18/17 06:20 04/18/17 06:57 04/18/17 11:14 Range/Units Bedside Glucose 168 171 179 70-99 mg/dl White Blood Count 6.56 4.8-10.8 K/uL Red Blood Count 4.32 4.7-6.1 M/uL Hemoglobin 13.4 14.0-18.0 g/dL Hematocrit 37.5 42-52 % Mean Corpuscular Volume 86.8 80-100 fL Mean Corpuscular Hemoglobin 31.0 25-34 pg Mean Corpuscular Hemoglobin Concent 35.7 32-36 g/dl RDW Standard Deviation 40.8 36.4-46.3 fL RDW Coefficient of Variation 12.6 11.5-14.5 % Platelet Count 236 130-400 K/uL Mean Platelet Volume 9.7 7.4-10.4 fL Sodium Level 134 136-145 mmol/L Potassium Level 3.2 3.5-5.1 mmol/L Chloride Level 99 98-107 mmol/L Carbon Dioxide Level 27 21-32 mmol/L Anion Gap 8.0 3-11 mmol/L Blood Urea Nitrogen 23 7-18 mg/dl Creatinine 1.61 0.60-1.40 mg/dl Est Creatinine Clear Calc Drug Dose 41.6 ml/min Estimated GFR () 47.4 Estimated GFR (Non- 40.9 BUN/Creatinine Ratio 14.3 1020 Random Glucose 159 70-99 mg/dl Calcium Level 8.9 8.5-10.1 mg/dl
--- NOTE | 2017-04-18 18:47 | Discharge Summary ---
Discharge Summary Date of Service Apr 18, 2017. Discharge Summary Admission Date: Apr 16, 2017 at 16:16 Discharge Date: Apr 18, 2017 Discharge Disposition: Home Principal Diagnosis: hypertensive urgency viral illness Secondary Diagnoses/Problems: (1) Diabetes Status: Chronic (2) Diverticulitis Status: Resolved (3) Hypertension Status: Chronic (4) Prostate ca Status: Resolved (5) Spinal stenosis Status: Resolved (6) Thyroid cancer Status: Resolved Procedures: CXR: Mild cardiomegaly. Chronic platelike atelectasis both lung bases CT HEAD: No acute intracranial abnormality. KUB: No acute process. Chronic and postoperative change. ECHO: * Ejection Fraction = 50-55%. * There is moderate concentric left ventricular hypertrophy. * The basal septum is thickened and angulated consistent with sigmoid septum. * Septal and apical wall motion abnormality is likely consistent with conduction abnormality. * Aortic valve sclerosis mild, without significant aortic valvular stenosis. * Mild aortic regurgitation. * There is trace mitral regurgitation. * There is mild tricuspid regurgitation. * The estimated systolic PAP is 45mmHg. * Grade I diastolic dysfunction, (abnormal relaxation pattern). Consultations: CARDIOLOGY NEPHROLOGY Medication Reconciliation New Medications: Sitagliptin Phosphate (Januvia) 50 Mg Tab 1 TAB PO DAILY for 30 Days, #30 TAB 2 Refills Carvedilol (Carvedilol) 12.5 Mg Tab 12.5 MG PO BID, #60 TAB 2 Refills Hydralazine Hcl (Apresoline) 25 Mg Tab 12.5 MG PO TID for 30 Days, #45 TAB 2 Refills Continued Medications: Allopurinol (Allopurinol) 100 Mg Tab 200 MG PO DAILY Amlodipine (Norvasc) 2.5 Mg Tab 2.5 MG PO QAM, TAB Aspirin (Aspirin Ec) 81 Mg Tab 81 MG PO QPM Atorvastatin (Lipitor) 10 Mg Tab 10 MG PO QPM Cholecalciferol (Vitamin D3) 2,000 Unit Cap 1 CAP PO DAILY, CAP 3 Refills Clonidine Hcl (Catapres) 0.3 Mg Tab 0.3 MG PO BID, TAB Coenzyme Q10 (Ubidecarenone) (Co Q-10) 150 Mg Cap 150 MG PO DAILY, CAP Levothyroxine Sodium (Levothyroxine Sodium) 150 Mcg Tab 1 TAB PO DAILY, TAB 3 Refills Lorazepam (Ativan) 0.5 Mg Tab 0.5 MG PO AMPM, TAB Potassium Chloride (Micro-K Ext Rel) 10 Meq Capcr 10 MEQ PO QAM, CAP Torsemide (Demadex) 10 Mg Tab 10 MG PO DAILY Discontinued Medications: Carvedilol (Coreg) 6.25 Mg Tab 6.25 MG PO BID Metformin Hcl (Glucophage Er) 750 Mg Tab 750 MG PO BID, TAB Admission Information HPI (per Admitting provider): Patient is a 77 yr male with PMH of DM II, uncontrolled HTN, CKD III, Thyroid cancer S/P resection, Hypertensive Heart disease, Prostate cancer S/P cryotherapy, Gout, HLP, Anxiety disorder presents with history of flu like symptoms since 3-4 days duration. Patient is a poor historian. Patient states he follow with Nephrology and Cardiology as outpatient and his BP is chronically elevated. He is on multiple medications for HTN and missed his meds today. He reports he quit taking his losartan recently as it causes sore throat , facial swelling and heartburn and symptoms resolved after discontinuing it. Reports dry cough, low grade fever, Rhinorrhea, diarrhea since 3 days. He noticed to have SOB and wheezing on Wednesday after taking Mucinex along with lorazepam which resolved. Also reports having some chest discomfort across the chest associated with coughing yesterday. He tried Mucinex OTC which minimally helped. He reports having diaphoresis today prior to ED visit. Denies any history of Chest pain, SOB, wheezing, diarrhea currently. Also denies any history of Dizziness, nausea, vomiting, abd pain, change in vision, Orthopnea, PND, change in appetite. Has chronic leg edema which he attributes to Amlodipine. Physical Exam (per Admitting): General Appearance: WD/WN, no apparent distress Head: normocephalic, atraumatic Eyes: normal inspection, PERRL, EOMI, sclerae normal ENT: normal ENT inspection, hearing grossly normal Neck: supple, trachea midline Respiratory/Chest: chest non-tender, lungs clear, normal breath sounds, no respiratory distress, no accessory muscle use Cardiovascular: regular rate, rhythm, no murmur, + pertinent finding (1-2+ B /L edema) Abdomen/GI: normal bowel sounds, non tender, soft Back: normal inspection Extremities/Musculoskelatal: normal inspection, + pedal edema Neurologic/Psych: golf club weigher II-XII nml as tested, no motor/sensory deficits, alert , normal mood/affect, oriented x 3 Skin: normal color, warm/dry Hospital Course Hypertensive Urgency: ? Compliance Chronically uncontrolled has multiple drug allergies Quit taking Losartan secondary to side effects cardiology and nephrology following currently on: coreq 12.5mg bid clonidine 0.3mg bid amlodipine 2.5mg daily hydralazine 12.5mg tid f/u closely with pcp and cardiology Mild elevation in troponin likely secondary to HTN Urgency ekg unremarkable troponin trended down echo normal EF. asymptomatic ARF on CKD III: Cr slightly elevated Baseline cr 1.4 holding torsemide cr 1.6 on discharge f/u with pcp and nephrology Flu Like symptoms: Influenza negative CXR: No signs of consolidation Empirically started on Levaquin has n/v today. kub unremarkable mostly viral illness improved DM II: ISS, Lantus Last A1C:7.4 on 11/11/16 Holding Oral DM meds on lantus and iss stopped metformin on discharge for elevated Cr and CKD stage 3 started on Januvia close f/u with pcp H/O Thyroid cancer S/P resection H/O Prostate cancer S/P cryotherapy Continue levothyroxine TSH: normal Gout: on Allopurinol prn Anxiety disorder: Continue home meds Discharged home Total time spent on discharge = 35MINUTES This includes examination of the patient, discharge planning, medication reconciliation, and communication with other providers. Discharge Instructions Discharge Instructions Date of Service Apr 18, 2017. Admission Reason for Admission: Hypertensive Urgency Discharge Discharge Diagnosis / Problem: hypertensive urgency Discharge Goals Goal(s): Decrease discomfort, Improve function Activity Recommendations Activity Limitations: resume your previous activity . Instructions / Follow-Up Instructions / Follow-Up FOLLOWUP WITH FAMILY DOCTOR WITH IN A WEEK. ( PATIENT WILL BE CALLED WITH APPOINTMENT). FOLLOWUP WITH CARDIOLOGY IN A WEEK. NEW MEDICATION: COREG 12.5MG TWICE DAILY HYDRALAZINE 12.5MG THREE TIMES DAILY JANUVIA 50MG ONCE DAILY. STOPPED MEDICATION: COREG 6.25MG TWICE DAILY METFORMIN 750MG TWICE DAILY.( RENAL FUNCTION IS NOT ADEQUATE) Current Hospital Diet Patient's current hospital diet: Diabetes Type 2 Diet, AHA Diet (Heart Healthy) Discharge Diet Recommended Diet: AHA Diet (Heart Healthy), Diabetes Type 2 Diet Pending Studies Studies pending at discharge: no Laboratory Results Hemoglobin A1c Test 04/15/17 01:20 Range/Units Estimated Average Glucose 166 mg/dl Hemoglobin A1c 7.4 H 4.5-5.6 % Lipid Panel Test 04/16/17 03:58 Range/Units Triglycerides Level 348 H 0-150 mg/dl Cholesterol Level 177 0-200 mg/dl HDL Cholesterol 36 mg/dl Cholesterol/HDL Ratio 4.9 LDL Cholesterol, Calculated 71 mg/dl Medical Emergencies . Who to Call and When: Medical Emergencies: If at any time you feel your situation is an emergency, please call 911 immediately. . Non-Emergent Contact Non-Emergency issues call your: Primary Care Provider . . "Provider Documentation" section prepared by Michael Briceño. . VTE Core Measure Inpt VTE Proph given/why not?: Unfractionated heparin SQ (REFUSED)
== END 2017-04-18 12:35 | disposition home or self-care (01) | DRG 305 ==
LOC: C.EDB 00:40 → C.2E 06:08 → ENRESERV 06:32 → OBSVTOIN 04-16 16:16
PROVIDERS: ADMIT Internal Medicine; ATTEND Internal Medicine
DX: I16.0 Hypertensive urgency (principal); N17.9 Acute kidney failure, unspecified; J06.9 Acute upper respiratory infection, unspecified; I13.10 Hypertensive heart and chronic kidney disease without heart failure, with stage 1 through stage 4 chronic kidney disease, or unspecified chronic kidney disease; E11.22 Type 2 diabetes mellitus with diabetic chronic kidney disease; N18.3 Chronic kidney disease, stage 3 (moderate); R11.2 Nausea with vomiting, unspecified; E78.5 Hyperlipidemia, unspecified; I25.10 Atherosclerotic heart disease of native coronary artery without angina pectoris; I44.7 Left bundle-branch block, unspecified; E89.0 Postprocedural hypothyroidism; M10.9 Gout, unspecified; F41.9 Anxiety disorder, unspecified; Z85.850 Personal history of malignant neoplasm of thyroid; Z85.46 Personal history of malignant neoplasm of prostate; Z87.891 Personal history of nicotine dependence; Z79.82 Long term (current) use of aspirin; Z79.84 Long term (current) use of oral hypoglycemic drugs; Z79.899 Other long term (current) drug therapy; Z88.8 Allergy status to other drugs, medicaments and biological substances; Z82.49 Family history of ischemic heart disease and other diseases of the circulatory system; Z83.3 Family history of diabetes mellitus; Z82.0 Family history of epilepsy and other diseases of the nervous system; Z80.3 Family history of malignant neoplasm of breast

== ENCOUNTER 2020-08-12 00:05 | Inpatient (IN) ==
--- OUTSIDE RECORDS SUMMARY | 2020-08-12 00:09 | External Medical Summary | Continuity of Care Document ---
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 21-Oct-2011 16:00 Encounter Diagnosis: Problem not documented
--- NOTE | 2020-08-12 00:22 | Emergency Department Note ---
History of Present Illness General Chief complaint: Respiratory Problems Stated complaint: RESPIRATORY DIFFICULTY/WEAK Time Seen by Provider: 08/12/20 00:06 Source: patient Mode of arrival: EMS Limitations: no limitations History of Present Illness Provider complaint: Shortness of breath, weakness Onset (ago): day(s) 4 Current Pain Intensity: 0 Relieved By: + rest Exacerbated By: + movement Associated symptoms: + cough and + shortness of breath; no chest pain, no fever/chills, no headaches and no nausea/vomiting Treatments prior to arrival: none This is a 80-year-old male presents emergency department via EMS for increased shortness of breath. Patient states he has noticed over the last several days he has had increased dyspnea with exertion. He states tonight it became markedly worse and he felt dizzy/lightheaded. Patient denies any recent fevers or chills, denies any known exposure to coronavirus. Patient denies any change in medications. Patient does have a history of atrial fibrillation but states he does not have any specific symptoms with this. States he is not anticoagulated but does take aspirin daily. Patient denies any falls or trauma, no change in activity otherwise. Patient states he does have a history of kidney problems. Patient states at rest he feels well, however develops symptoms with any exertion. Patient denies any prior heart attack or congestive heart failure. Patient states over the last several days he has noticed slightly increased lower extremity edema. Patient does not weigh himself daily. Patient does have a history of diabetes and does check his blood sugar daily. Pt seen during a time of high acuity and national emergency pandemic while wearing PPE. Home Medications Medication Instructions Recorded Confirmed Type allopurinol 200 mg PO DAILY 02/25/18 08/12/20 History aspirin 81 mg PO DAILY 02/25/18 08/12/20 History glipizide 10 mg PO BID 02/25/18 08/12/20 History lorazepam 1 tab PO TID PRN 02/25/18 08/12/20 History potassium chloride 10 meq PO 2XWK 02/25/18 08/12/20 History potassium chloride 10 meq PO DAILY 02/25/18 08/12/20 History albuterol sulfate 2 puff INHALATION Q4 PRN 08/12/20 08/12/20 History amlodipine 2.5 mg PO BID 08/12/20 08/12/20 History carvedilol 6.25 mg PO BID 08/12/20 08/12/20 History cholecalciferol (vitamin D3) 75 mcg PO DAILY 08/12/20 08/12/20 History [Vitamin D3] diclofenac sodium 2 g TOPICAL TID PRN 08/12/20 08/12/20 History levothyroxine 150 mcg PO DAILY 08/12/20 08/12/20 History losartan 50 mg PO BID 08/12/20 08/12/20 History magnesium 250 mg PO 3XWK 08/12/20 08/12/20 History multivitamin 1 tab PO DAILY 08/12/20 08/12/20 History terazosin 1 mg PO HS 08/12/20 08/12/20 History Allergies Allergy/AdvReac Type Severity Reaction Status Date / Time clonidine Allergy Unknown allergic Unverified 02/25/18 08:49 to all but 1 brand carvedilol Allergy Hives Verified 08/12/20 01:48 losartan Allergy Unknown Verified 08/12/20 01:48 ANJELICA Inhibitors AdvReac Intermediate INTOLERANCE Verified 02/25/18 08:49 PER MD ORDER allopurinol AdvReac Intermediate severe abd Verified 02/25/18 08:49 pain Beta-Blockers AdvReac Intermediate INTOLERANCE Verified 02/25/18 08:49 (Beta-Adrenergic Bloc PER DR ARELLANO doxazosin AdvReac Intermediate INTOLERANCE Verified 02/25/18 08:[address] ARELLANO Pmfzums-Izv-Zis Reductase AdvReac Intermediate INTOLERANCE Verified 02/25/18 08:[address] ARELLANO citalopram AdvReac Unknown Verified 08/12/20 01:48 hydralazine AdvReac diarrhea, Verified 08/12/20 01:48 testicular pain hydrochlorothiazide AdvReac hyponatremi Verified 08/12/20 01:48 a lisinopril AdvReac Cough Verified 08/12/20 01:48 simvastatin [From Zocor] AdvReac Muscle Pain Verified 08/12/20 01:48 sitagliptin [From Januvia] AdvReac restlessnes Verified 08/12/20 01:48 s Past Med/Surg History Medical History (Updated 08/13/20 @ 01:32 by Kiley Martin DO) Diabetes Hypertension Prostate ca Thyroid cancer Surgical History S/P lumbar fusion Social History Smoking Status: Former smoker Second Hand Exposure: No; Do You Dip or Chew Tobacco: No; Tobacco Cessation Education Requested by Patient: No Hx Alcohol Use: No Hx Substance Use: No Preferred Language: Frisian Communication Ability: Effective 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 and A total of 10 systems reviewed and were otherwise negative Physical Exam Vital Signs Vital Signs - 24 hr 08/12/20 01:30 08/12/20 01:45 08/12/20 02:01 Pulse Rate 75 76 75 Pulse Rate from SpO2 Sensor 73 74 Respiratory Rate 24 19 24 Blood Pressure 164/99 H 176/113 H 188/113 H Blood Pressure Mean 120 134 138 Pulse Oximetry 95 95 95 Oxygen Delivery Method Room Air Room Air Room Air 08/12/20 02:15 08/12/20 02:30 08/12/20 02:45 Pulse Rate 82 Pulse Rate from SpO2 Sensor 72 76 73 Respiratory Rate Blood Pressure 152/107 H 169/105 H 165/108 H Blood Pressure Mean 122 126 127 Pulse Oximetry 93 94 94 Oxygen Delivery Method Room Air Room Air Room Air 08/12/20 02:46 08/12/20 03:00 Pulse Rate 76 Pulse Rate from SpO2 Sensor 80 81 Respiratory Rate Blood Pressure 163/99 H Blood Pressure Mean 120 Pulse Oximetry 93 93 Oxygen Delivery Method Room Air GENERAL: alert, well appearing, well nourished, no distress, non-toxic EYE EXAM: normal conjunctiva, PERRL and EOM's grossly intact OROPHARYNX: no exudate, no erythema, lips, buccal mucosa, and tongue normal and mucous membranes are moist NECK: supple, no nuchal rigidity, no adenopathy, non-tender LUNGS: Clear to auscultation. Normal chest wall mechanics, no w/r, fine bibasilar rales noted, no tachypnea, no increased work of breathing while at rest HEART: no murmurs, S1 normal and S2 normal ABDOMEN: abdomen soft, non-tender, normo-active bowel sounds, no masses, no rebound or guarding. BACK: Back is symmetrical on inspection and there is no deformity, no midline tenderness, no CVA tenderness. SKIN: no rashes and no bruising UPPER EXTREMITIES: upper extremities are grossly normal. FROM, nml pulses b/l. LOWER EXTREMITIES: 2+ pitting edema. FROM, nml pulses b/l. NEURO EXAM: Normal sensorium, cranial nerves II-XII grossly intact, normal speech, no gross weakness of arms, no gross weakness of legs. Gross sensation intact. Course Course 0202: Pt sitting upright in a chair. Discussed all results. 024: Discussed with Dr. Briceño. Administered Medications Albuterol (Albuterol Hfa 8 Gm Inhaler) 2 puffs INH Q4 PRN PRN Reason: Shortness Of Breath Or Wheezing Stop: 09/11/20 05:02 Last Admin: 08/12/20 21:29 Dose: 2 puffs Documented by: [id number] Allopurinol (Allopurinol 100 Mg Tab) 200 mg PO DAILY [facility] Stop: 09/11/20 08:59 Last Admin: 08/12/20 08:58 Dose: 200 mg Documented by: [id number] Amlodipine Besylate (Amlodipine Besylate 5 Mg Tab) 2.5 mg PO BID [facility] Stop: 09/11/20 08:59 Last Admin: 08/12/20 20:40 Dose: 2.5 mg Documented by: [id number] Admin: 08/12/20 08:57 Dose: 2.5 mg Documented by: [id number] Aspirin (Aspirin 81 Mg Ectab) 81 mg PO DAILY [facility] Stop: 09/11/20 08:59 Last Admin: 08/12/20 08:55 Dose: 81 mg Documented by: [id number] Carvedilol (Carvedilol 6.25 Mg Tab) 6.25 mg PO BID [facility] Stop: 09/11/20 08:59 Last Admin: 08/12/20 20:39 Dose: 6.25 mg Documented by: [id number] Admin: 08/12/20 08:55 Dose: 6.25 mg Documented by: [id number] Heparin Sodium (Porcine) (Heparin Sod 5,000 Unit/0.5 Ml Vial) 5,000 units SQ Q8 [facility] Stop: 09/11/20 05:59 Last Admin: 08/12/20 20:39 Dose: 5,000 units Documented by: [id number] Admin: 08/12/20 14:33 Dose: 5,000 units Documented by: [id number] Admin: 08/12/20 06:16 Dose: 5,000 units Documented by: [id number] Ceftriaxone Sodium 2,000 mg/ (Dextrose) 70 mls @ 100 mls/hr IV Q24H [facility]; Protocol Stop: 08/19/20 06:59 Last Infusion: 08/12/20 09:01 Dose: 0 mls/hr Documented by: [id number] Admin: 08/12/20 07:33 Dose: 100 mls/hr Documented by: [id number] Doxycycline Hyclate 100 mg/ (Dextrose) 110 mls @ 50 mls/hr IV Q12H [facility]; Protocol Stop: 08/19/20 07:59 Last Infusion: 08/12/20 23:01 Dose: 0 mls/hr Documented by: [id number] Admin: 08/12/20 20:30 Dose: 50 mls/hr Documented by: [id number] Infusion: 08/12/20 11:18 Dose: 0 mls/hr Documented by: [id number] Admin: 08/12/20 08:55 Dose: 50 mls/hr Documented by: [id number] Insulin Aspart (Insulin Aspart 100 Units/Ml 3 Ml Pen) 0 units SC ACHS [facility] Stop: 09/11/20 07:29 Last Admin: 08/12/20 20:43 Dose: 2 units Documented by: [id number] Cosigned by: [id number] Admin: 08/12/20 17:58 Dose: 4 units Documented by: [id number] Cosigned by: [id number] Admin: 08/12/20 12:26 Dose: 6 units Documented by: [id number] Cosigned by: [id number] Admin: 08/12/20 08:54 Dose: 5 units Documented by: [id number] Cosigned by: [id number] Insulin Glargine (Insulin Glargine Solostar 100 Units/Ml 3 Ml Pen) 6 units SC BID [facility] Stop: 09/11/20 08:59 Last Admin: 08/12/20 20:42 Dose: 6 units Documented by: [id number] Cosigned by: [id number] Admin: 08/12/20 08:58 Dose: 6 units Documented by: [id number] Cosigned by: [id number] Levothyroxine Sodium (Levothyroxine Sodium 150 Mcg Tablet) 150 mcg PO DAILYBB [facility] Stop: 09/11/20 06:29 Last Admin: 08/12/20 06:16 Dose: 150 mcg Documented by: [id number] Lorazepam (Lorazepam 0.5 Mg Tab) 0.5 mg PO TID PRN PRN Reason: Anxiety Stop: 09/11/20 05:02 Last Admin: 08/12/20 20:54 Dose: 0.5 mg Documented by: [id number] Admin: 08/12/20 14:32 Dose: 0.5 mg Documented by: [id number] Admin: 08/12/20 07:43 Dose: 0.5 mg Documented by: [id number] Losartan Potassium (Losartan Potassium 50 Mg Tab) 50 mg PO BID [facility] Stop: 09/11/20 08:59 Last Admin: 08/12/20 08:57 Dose: 50 mg Documented by: [id number] Multivitamins (Multivitamin Tab) 1 tab PO DAILY [facility] Stop: 09/11/20 08:59 Last Admin: 08/12/20 08:57 Dose: 1 tab Documented by: [id number] Terazosin HCl (Terazosin Hcl 1 Mg Cap) 1 mg PO HS [facility] Stop: 09/11/20 20:59 Last Admin: 08/12/20 20:40 Dose: 1 mg Documented by: [id number] Vitamin D (Cholecalciferol 1,000 Units 25 Mcg Tab) 3,000 units PO DAILY [facility] Stop: 09/11/20 08:59 Last Admin: 08/12/20 08:57 Dose: 3,000 units Documented by: [id number] Discontinued Medications Sodium Chloride (Nss 1000ml) 1,000 mls @ 75 mls/hr IV .[id number] [facility] Stop: 09/11/20 06:59 Last Infusion: 08/12/20 11:37 Dose: 0 mls/hr Documented by: [id number] Admin: 08/12/20 07:34 Dose: 75 mls/hr Documented by: [id number] Magnesium Oxide (Magnesium Oxide 400 Mg Tab) 400 mg PO MoWeFr@0900 [facility] Stop: 09/11/20 08:59 Last Admin: 08/12/20 08:56 Dose: 400 mg Documented by: [id number] Nitroglycerin (Nitroglycerin 2% Ointment 30gm Tube) 2 inch EXT NOW STA Stop: 08/12/20 01:11 Last Admin: 08/12/20 01:16 Dose: 2 inch Documented by: [id number] Potassium Chloride (Potassium Chloride 10 Meq Tabcr) 10 meq PO DAILY [facility] Stop: 09/11/20 08:59 Last Admin: 08/12/20 08:56 Dose: 10 meq Documented by: [id number] Medical Decision Making Differential Diagnosis Differential diagnoses includes but is not limited to pneumonia, bronchitis, COPD/Asthma exacerbation, pneumothorax, pulmonary embolism, congestive heart failure, acute coronary syndrome Medical Records Attestation: I reviewed the patient's medical records. Home Medications Current Medication List: was personally reviewed by me Laboratory Data Attestation: I reviewed the patient's lab results. Result diagrams: 08/12/20 05:17 08/12/20 17:43 Lab Results 08/12/20 08/12/20 08/12/20 Range/Units 00:00 00:00 00:00 WBC 8.59 (4.8-10.8) K/uL RBC 4.24 L (4.7-6.1) M/uL Hgb 13.3 L (14.0-18.0) g/dL Hct 35.4 L (42-52) % MCV 83.5 (80-100) fL MCH 31.4 (25-34) pg MCHC 37.6 H (32-36) g/dL RDW Std Deviation 38.2 (36.4-46.3) fL RDW Coeff of Pooja 12.6 (11.5-14.5) % Plt Count 338 (130-400) K/uL MPV 10.0 (7.4-10.4) fL Immature Gran % (Auto) 0.1 % Neut % (Auto) 69.7 % Lymph % (Auto) 16.1 % [place] % (Auto) 11.1 % Eos % (Auto) 2.7 % Baso % (Auto) 0.3 % Neut # (Auto) 5.99 (1.4-6.5) K/uL Lymph # (Auto) 1.38 (1.2-3.4) K/uL [place] # (Auto) 0.95 H (0.11-0.59) K/uL Eos # (Auto) 0.23 (0-0.5) K/uL Baso # (Auto) 0.03 (0-0.2) K/uL Immature Gran # (Auto) 0.01 (0.00-0.02) K/uL PT 10.0 (9.0-12.0) Seconds INR 1.0 (0.9-1.1) Sodium 126 L (136-145) mmol/L Potassium 4.2 (3.5-5.1) mmol/L Chloride 93 L (98-107) mmol/L Carbon Dioxide 25 (21-32) mmol/L Anion Gap 8.0 (3-11) BUN 34 H (7-18) mg/dl Creatinine 2.87 H (0.6-1.4) mg/dl Est Cr Clr Drug Dosing 23.6 ml/min Est GFR ( Amer) 23.1 Est GFR (Non-Af Amer) 19.9 BUN/Creatinine Ratio 11.9 (10-20) Glucose 206 H (70-99) mg/dl Calcium 9.2 (8.5-10.1) mg/dl Magnesium 2.2 (1.8-2.4) mg/dl Total Bilirubin 0.6 (0.2-1) mg/dl AST 23 (15-37) U/L ALT 35 (12-78) U/L Alkaline Phosphatase 105 (45-117) U/L Troponin I 0.041 (0-0.045) ng/ml NT-Pro-B Natriuret Pep 680 (0-1800) pg/ml Total Protein 8.7 H (6.4-8.2) gm/dl Albumin 3.7 (3.4-5.0) gm/dl Globulin 5.0 H (2.5-4.0) gm/dl Albumin/Globulin Ratio 0.7 L (0.9-2) Imaging Data My Impression: X-ray: I interpreted the following studies. Chest: A single view study of the chest was reviewed and was negative for cardiomegaly, focal infiltrate, effusion, pulmonary edema, or wide mediastinum. Radiologist's Impression: Chest X-Ray 08/12/20 00:17 XR chest 1V portable CLINICAL HISTORY: Shortness of breath COMPARISON STUDY: 02/25/2018 FINDINGS: The heart remains enlarged. There is persistent elevation right hemidiaphragm. There is persistent aortic tortuosity/ectasia. There is no acute parenchymal consolidation. There is no overt failure. There are no pleural effusions.[ IMPRESSION: Stable cardiomegaly and elevation of the right hemidiaphragm. No acute findings. ACT 112: Negative or not required by law. Electronically signed by: Derrell Smiley M.D. 08/12/2020 6:57 AM ECG Data Attestation: I personally reviewed and interpreted this ECG as follows: Indication: + SOB/dyspnea Rate (beats per minute): 88 Rhythm: + normal sinus ECG Intervals/blocks: + First degree AV block, + Left bundle branch block and + Prolonged QT ECG [place]: + Left axis deviation ECG ST segments: + Nonspecific ST abnormalities ECG Findings: + PVCs MDM Narrative This is a 80-year-old male who presents due to dyspnea with exertion over the last 3 to 4 days, worsening tonight prompting him to call EMS and come to the emergency room. Patient did not have significant distress or hypoxia on initial presentation, patient states that is only with any sort of exertion. Labs drawn and sent, chest x-ray performed. Patient's chest x-ray did not reveal any acute findings, EKG otherwise unchanged. Patient's labs did reveal worsening kidney function in a patient who already has underlying chronic kidney disease. Patient was able to be weaned off oxygen that had initially been placed on him via EMS, and as long as he was at rest he had no respiratory distress or complaints. Discussed with patient results and my concern for evolving volume overload due to KYRA and lower extremity edema. Case discussed with hospitalist for additional inpatient evaluation and management. At this time I do not suspect ACS, acute CHF, PE, or occult infectious etiology. Patient was found to be hyponatremic in addition, worse compared to prior episodes of hyponatremia. I suspect this is likely secondary to the worsening kidney function. No eviden ce of DKA despite some hyperglycemia. No evidence for bacteremia/sepsis. An order was placed for continuous cardiac monitoring. The monitor shows a rate of _90_ with _normal sinus rhythm. Impression & Plan ROSE (dyspnea on exertion), KYRA (acute kidney injury), CKD (chronic kidney disease), Hyperglycemia due to diabetes mellitus, Hyponatremia Discharge Plan Visit Data Chief Complaint: Respiratory Problems Stated Complaint: RESPIRATORY DIFFICULTY/WEAK ED Provider: Kiley Martin Discharge Problem: ROSE (dyspnea on exertion), KYRA (acute kidney injury), CKD (chronic kidney disease), Hyperglycemia due to diabetes mellitus, Hyponatremia Patient Disposition: Admitted As Inpatient Discharge Instructions Interventions: ED Discharge Assessment Last Done: 08/12/20 04:28 Discharge Problem: CKD (chronic kidney disease) Qualifiers: Chronic kidney disease stage: unspecified stage Qualified Code(s): N18.9 - Chronic kidney disease, unspecified
[2020-08-12 00:26] LABS: Basophils # (auto) 0.03 K/uL (0-0.2); Basophils % (auto) 0.3 %; Eosinophils # (auto) 0.23 K/uL (0-0.5); Eosinophils % (auto) 2.7 %; Hematocrit (blood only) 35.4 % (42-52); Hemoglobin 13.3 g/dL (14.0-18.0); Immature Granulocytes # (auto) 0.01 K/uL (0.00-0.02); Immature Granulocytes % (auto) 0.1 %; Lymphocytes # (auto) 1.38 K/uL (1.2-3.4); Lymphocytes % (auto) 16.1 %; Mean Corpuscular Hemoglobin 31.4 pg (25-34); Mean Corpuscular Hgb Conc 37.6 g/dL (32-36); Mean Corpuscular Volume 83.5 fL (80-100); Monocytes # (auto) 0.95 K/uL (0.11-0.59); Monocytes % (auto) 11.1 %; Neutrophils # (auto) 5.99 K/uL (1.4-6.5); Neutrophils % (auto) 69.7 %; Platelet Count 338 K/uL (130-400); RDW Coefficient of Variation 12.6 % (11.5-14.5); RDW Standard Deviation 38.2 fL (36.4-46.3); Red Blood Count 4.24 M/uL (4.7-6.1); White Blood Count 8.59 K/uL (4.8-10.8)
[2020-08-12 00:38] LABS: Albumin Level 3.7 gm/dl (3.4-5.0); BUN Creatinine Ratio 11.9 (10-20); Calcium 9.2 mg/dl (8.5-10.1); Creatinine Clr Calc Pharmacy 23.6 ml/min; Est GFR (African American) 23.1; Est GFR (Non-African American) 19.9; Magnesium 2.2 mg/dl (1.8-2.4); Potassium 4.2 mmol/L (3.5-5.1)
[2020-08-12 00:44] LABS: Albumin Globulin Ratio 0.7 (0.9-2); Bilirubin,Total 0.6 mg/dl (0.2-1); Total Protein 8.7 gm/dl (6.4-8.2); Troponin I 0.041 ng/ml (0-0.045)
[2020-08-12] MEDS ORDERED: NITROGLYCERIN 2% OINTMENT 30GM TUBE EXT STA (01:10)
[2020-08-12 01:21] LABS: Influenza A virus by PCR Negative (Neg); Influenza B virus by PCR Negative (Neg); RSV by PCR Negative (Neg); SARS CoV2 RNA(COVID-19) InHosp NEGATIVE (Negative)
[2020-08-12] MEDS ORDERED: ONDANSETRON INJ 2 MG/ML 2 ML VIAL IV PRN (05:03)
[2020-08-12] MEDS ORDERED: ALBUTEROL HFA 8 GM INHALER INH PRN (05:03)
[2020-08-12] MEDS ORDERED: ACETAMINOPHEN 325 MG TAB PO PRN (05:03)
[2020-08-12] MEDS ORDERED: DICLOFENAC SOD 1% GEL 100 GM TUBE EXT PRN (05:03)
[2020-08-12] MEDS ORDERED: POLYETHYLENE (MIRALAX) 17 GM PACK PO PRN (05:03)
[2020-08-12] MEDS ORDERED: NITROGLYCERIN SL 0.4 MG/TAB TAB SL PRN (05:03)
[2020-08-12 05:29] LABS: Basophils # (auto) 0.04 K/uL (0-0.2); Basophils % (auto) 0.4 %; Eosinophils # (auto) 0.14 K/uL (0-0.5); Eosinophils % (auto) 1.5 %; Hemoglobin 13.4 g/dL (14.0-18.0); Immature Granulocytes # (auto) 0.01 K/uL (0.00-0.02); Immature Granulocytes % (auto) 0.1 %; Lymphocytes # (auto) 1.31 K/uL (1.2-3.4); Mean Corpuscular Hemoglobin 30.5 pg (25-34); Mean Corpuscular Hgb Conc 36.2 g/dL (32-36); Mean Corpuscular Volume 84.3 fL (80-100); Mean Platelet Volume 9.6 fL (7.4-10.4); Monocytes # (auto) 0.89 K/uL (0.11-0.59); Monocytes % (auto) 9.5 %; Neutrophils # (auto) 6.96 K/uL (1.4-6.5); Neutrophils % (auto) 74.5 %; Platelet Count 308 K/uL (130-400); RDW Coefficient of Variation 12.5 % (11.5-14.5); RDW Standard Deviation 38.2 fL (36.4-46.3); Red Blood Count 4.39 M/uL (4.7-6.1); White Blood Count 9.35 K/uL (4.8-10.8)
[2020-08-12] MEDS ORDERED: GLUCOSE 40% GEL 15 GM TUBE PO PRN (05:30)
[2020-08-12] MEDS ORDERED: GLUCAGON FOR INJ 1 MG VIAL SQ PRN (05:30)
[2020-08-12] MEDS ORDERED: GLUCOSE 10 TABS/TUBE PO PRN (05:30)
[2020-08-12] MEDS ORDERED: DEXTROSE 50% 50 ML SYRINGE IV PRN (05:30)
[2020-08-12] MEDS ORDERED: CARBOHYDRATES FOR HYPOGLYCEMIA PO PRN (05:30)
[2020-08-12 05:46] LABS: BUN Creatinine Ratio 11.8 (10-20); Est GFR (African American) 21.5; Est GFR (Non-African American) 18.6; Magnesium 2.3 mg/dl (1.8-2.4)
[2020-08-12 05:51] LABS: Troponin I 0.043 ng/ml (0-0.045)
--- NOTE | 2020-08-12 06:00 | History and Physical Report ---
DATE OF ADMISSION: 08/12/2020 CHIEF COMPLAINT: Shortness of breath. HISTORY OF PRESENT ILLNESS: This 80-year-old male with past medical history significant for type 2 diabetes, hypothyroidism, hyperlipidemia, chronic kidney disease stage III, history of left ventricular hypertrophy, hypertension, left bundle branch block, gout arthropathy, renal osteodystrophy, anxiety disorder, panic disorder, history of thyroid cancer, history of prostate cancer, who lives at home with his , comes because of shortness of breath. Shortness of breath started yesterday and also he is having poor appetite, not eating and drinking for the last couple of days and urine output is decreasing and was somewhat constipated. He says he had hemorrhoids and gets some blood on wipes. Currently resting comfortably and saturating fine on room air and labs showed sodium of 126, creatinine of 2.8. SARS-CoV-2 PCR is negative. Influenza A and B PCR negative, RSV PCR negative. Chest x-ray, no obvious congestion or infiltrate seen. Had lower extremity edema which seems chronic. The patient denies any chest pain. No headache, no blurred vision, no earache. He has chronic runny nose, no sore throat, no loss of sense of smell or taste. No cough, no nausea, no abdominal pain. Ambulates okay. ALLERGIES: CITALOPRAM, CLONIDINE, HYDROCHLOROTHIAZIDE, HYDRALAZINE, JANUVIA, LISINOPRIL, STATINS. PAST MEDICAL HISTORY: As mentioned above. PAST SURGICAL HISTORY: Biopsy of prostate, carpal tunnel surgery, dental surgery, EGDs, lumbar spine fusion surgery, prostate cryoablation, removal of thymus gland, fusion of the ulnar nerve at the elbow. MEDICATIONS: The patient is on albuterol 2 puffs inhalation every 4 hours p.r.n., allopurinol 200 mg p.o. daily, amlodipine 2.5 mg p.o. b.i.d., aspirin 81 mg p.o. daily, Coreg 6.25 mg p.o. b.i.d., vitamin D 25 mcg p.o. daily, diclofenac sodium 2 g topical t.i.d. p.r.n., glipizide 10 mg p.o. b.i.d., levothyroxine 150 mcg p.o. daily, Ativan 0.5 mg p.o. t.i.d. p.r.n., losartan 50 mg p.o. b.i.d., magnesium oxide 250 mg p.o. 3 times a week and multivitamin 1 tablet p.o. daily, potassium chloride 10 mEq daily and also 10 mEq 2 times a week, terazosin 1 mg p.o. at bedtime. FAMILY HISTORY: Significant for sister has breast cancer, diabetes. Daughter has a pacemaker for her stomach and diabetes. Father has Parkinson's, gout. Brother has hypertension. Mother has diabetes. SOCIAL HISTORY: . Former smoker, quit in 1961. Smoked 0.75 pack a day for 17 years. No alcohol use, no drug use. REVIEW OF SYMPTOMS: As per HPI. Rest of review of systems negative. PHYSICAL EXAMINATION: GENERAL: The patient is obese, not in acute distress. VITAL SIGNS: Temperature 37.4, pulse 82, respiratory rate 19, blood pressure 178/125, oxygen 95% on room air. HEENT: Pupils equal, round, reactive to light. Oral mucosa moist. NECK: No JVD, no neck masses. CARDIOVASCULAR: S1, S2 heard, regular rate and rhythm, no murmur, no gallop. RESPIRATORY SYSTEM: Normal AP diameter. No accessory muscle use. No wheezing. Mild bibasilar crackles. ABDOMEN: Soft, bowel sounds present, nontender. No distention. CENTRAL NERVOUS SYSTEM: Cranial nerves II-XII grossly intact, nonfocal. EXTREMITIES: Bilateral lower extremity +2 pedal edema present, no erythema seen. LABORATORY DATA: WBC 8.5, hemoglobin 13.3, hematocrit 35.4, platelets 338. PT 10, INR 1. Sodium 126, potassium 4.2, chloride 93, bicarbonate 25, BUN 34, creatinine 2.8, serum glucose 206, calcium 9.2, magnesium 2.2, total bilirubin 0.6, AST 23, ALT 35, alkaline phosphatase 105. Troponin I 0.04. BNP 680. SARS-CoV-2 PCR negative. Influenza A and B PCR negative, RSV PCR negative. IMAGING: Chest x-ray, no acute findings. EKG: Poor quality. Interpretation: Left bundle branch block, rate of 88. ASSESSMENT AND PLAN: This is a 80-year-old male who presents with shortness of breath. 1. Shortness of breath. No wheezing on exam. Mild bibasilar crackles. some lower extremity edema which seems chronic. Echo done in April 2019 shows normal EF, mild left ventricular wall thickness, mild mitral regurgitation, moderate aortic valve sclerosis. The patient has lower extremity edema, could be from his amlodipine use, could be from congestive heart failure. We will follow CT of the chest, currently saturating fine on room air. We will monitor in the med tele. Consult cardiology for further recommendation. The patient has history of smoking in the past, but currently no wheezing is heard. We will monitor. 3. Hyponatremia, sodium of 126. We will follow repeat labs. Serum osmolality, urine osmolality, serum sodium, urine random sodium, BMP q. 6 hours, consult nephrology for further recommendation. 4. Acute kidney injury on chronic kidney disease stage III. Baseline creatinine around 2-2.4 as per creatinine in 2020. Currently, creatinine of 2.8. We will await nephrology input. 5. Diabetes. Hold his glipizide. Place on Lantus insulin sliding scale. 6. History of hypertension, labile hypertension, on Coreg, losartan, terazosin. [facility] did not have amlodipine but the patient says he is taking amlodipine half tablet b.i.d. 2.5 mg p.o. b.i.d., which we will continue for now and monitor his blood pressure. 7. Hypothyroidism. Continue Synthroid. 8. Anxiety. Continue his Ativan p.r.n. 9. Electrolyte abnormality. Continue his home potassium and magnesium supplement for now and follow the labs. 10. History of gout. Continue allopurinol. 11. History of prostate cancer status post cryotherapy. 12. History of thyroid cancer, status post resection. 13. Deep venous thrombosis prophylaxis. We will place on heparin subQ. DISPOSITION: Admit to med [facility]. PT and OT prior to discharge. Social service to help with discharge planning. Level 1 full code. Addendum: Ct chest shows bibasilar infiltrates possibly pneumonia. empirically started on Rocephin and doxycycline. Also Am labs shows cr 3.0. Started on gentle fluids. Follow bmp for hyponatremia. MTDD
[2020-08-12] MEDS: HEPARIN SOD 5,000 UNIT/0.5 ML VIAL SQ SCH ×3 (06:16→20:39)
[2020-08-12] MEDS: LEVOTHYROXINE SODIUM 150 MCG TABLET PO SCH (06:16)
[2020-08-12 06:38] LABS: Estimated Average Glucose 200 mg/dl; Hemoglobin A1C 8.6 % (4.5-5.6)
--- NOTE | 2020-08-12 06:59 | XRay Report ---
XR chest 1V portable CLINICAL HISTORY: Shortness of breath COMPARISON STUDY: 02/25/2018 FINDINGS: The heart remains enlarged. There is persistent elevation right hemidiaphragm. There is per sistent aortic tortuosity/ectasia. There is no acute parenchymal consolidation. There is no overt daniel lure. There are no pleural effusions.[ IMPRESSION: Stable cardiomegaly and elevation of the right hemidiaphragm. No acute findings. ACT 112: Negative or not required by law. Electronically signed by: Derrell Smiley M.D. 08/12/2020 6:57 AM
[2020-08-12] MEDS ORDERED: SODIUM CHLORIDE 0.9% 1000ML 1,000 ML IV SCH (07:00)
[2020-08-12] MEDS: cefTRIAXone SODIUM 2,000 MG in DEXTROSE 5% 50 ML IV SCH (07:33)
--- NOTE | 2020-08-12 07:38 | CT Scan Report ---
CT chest diagnostic wo con CLINICAL HISTORY: Chest pain and shortness of breath COMPARISON STUDY: Chest x-ray dated 08/12/2020 CT DOSE: 540.49 mGy.cm TECHNIQUE: CT of the thorax was performed from the thoracic inlet to the lung bases. Images are revi ewed in the axial, sagittal, and coronal planes. IV contrast was not administered for this examinatio n. A dose lowering technique was utilized adhering to the principles of ALARA. FINDINGS: Thoracic aorta: r there is mild ectasia of the ascending thoracic aorta which measures 38 mm. Heart: The heart is mildly enlarged. There are mild coronary artery calcifications. There is no peric ardial effusion. There is mild prominence of the central pulmonary arteries. Pulmonary arterial hyper tension not excluded. Lungs and pleural spaces: There is respiratory motion artifact. There is elevation right hemidiaphrag m. There are right lower lobe parenchymal opacities, likely atelectatic. There is right middle lobe a telectasis Mediastinum: There is no pathologic mediastinal lymphadenopathy Loida: There is known to pathologic hilar adenopathy given the limitations of a noncontrast study. Axilla: There is no is a pathologic axillary lymphadenopathy Upper abdomen: Partially visualized upper abdominal viscera is within normal limits. Skeletal structures: There are no lytic or blastic osseous lesions. IMPRESSION: 1. Elevation right hemidiaphragm 2. Right middle lobe and right lower lobe atelectatic changes. 3. Mild ectasia of descending thoracic aorta 4. Mild prominence of central pulmonary arteries. Pulmonary arterial hypertension not excluded ACT 112: Negative or not required by law. Electronically signed by: Derrell Smiley M.D. 08/12/2020 7:37 AM
[2020-08-12] MEDS: LORazepam 0.5 MG TAB PO PRN ×3 (07:43→20:54)
--- NOTE | 2020-08-12 07:48 | Hospitalist Progress Note ---
Date of Service August 12, 2020 Assessment & Plan (1) Pneumonia: ASSESSMENT AND PLAN: This is a 80-year-old male who presents with shortness of breath. Admitted by Dr Briceño 2 hours ago 1. Shortness of breath. No wheezing on exam. Mild bibasilar crackles. some lower extremity edema which seems chronic. Echo done in April 2019 shows normal EF, mild left ventricular wall thickness, mild mitral regurgitation, moderate aortic valve sclerosis. The patient has lower extremity edema, could be from his amlodipine use, could be from congestive heart failure. We will follow CT of the chest, currently saturating fine on room air. We will monitor in the med tele. Consult cardiology for further recommendation. The patient has history of smoking in the past, but currently no wheezing is heard. We will monitor. 3. Hyponatremia, sodium of 126. We will follow repeat labs. Serum osmolality, urine osmolality, serum sodium, urine random sodium, BMP q. 6 hours, consult nephrology for further recommendation. 4. Acute kidney injury on chronic kidney disease stage III. Baseline creatinine around 2-2.4 as per creatinine in 2019. Currently, creatinine of 2.8. We will await nephrology input. 5. Diabetes. Hold his glipizide. Place on Lantus insulin sliding scale. 6. History of hypertension, labile hypertension, on Coreg, losartan, terazosin. [facility] did not have amlodipine but the patient says he is taking amlodipine half tablet b.i.d. 2.5 mg p.o. b.i.d., which we will continue for now and monitor his blood pressure. 7. Hypothyroidism. Continue Synthroid. 8. Anxiety. Continue his Ativan p.r.n. 9. Electrolyte abnormality. Continue his home potassium and magnesium supplement for now and follow the labs. 10. History of gout. Continue allopurinol. 11. History of prostate cancer status post cryotherapy. 12. History of thyroid cancer, status post resection. 13. Deep venous thrombosis prophylaxis. We will place on heparin subQ. DISPOSITION: Admit to med tele. PT and OT prior to discharge. Social service to help with discharge planning. Level [address] full code. Labs Checked Ct chest shows bibasilar infiltrates possibly pneumonia. empirically started on Rocephin and doxycycline. Also Am labs shows cr 3.0. Started on gentle fluids. Follow bmp for hyponatremia. ROS-No Headache, No Visual Changes, No Nausea, No Vomiting, No Fever, No Chills, No Neck Pain or Stiffness, No Chest Pain, No Palpitations, No SOB, No ROSE, No Co ugh, No Sputum, No Wheezing, No Abdominal Pain, No Diarrhea, No Hematemesis, No Hemoptysis, No Unexpected Weight Loss, No Flank pain, No Melena, No Hematochezia, No Frequency, No Urgency, No Burning, No Hematuria, No Rashes, No Diaphoresis. Appetite is Normal Physical Exam Gen-AAO x 3, NAD, Afebrile Head-NCAT, EOMI, PERRLA, Anicteric Sclera, No Posterior Pharyngeal Erythema Neck-Supple, No JVD, No Thyromegaly, No Masses, No LAD, No Bruits Lungs-Clear to Auscultation Bilaterally, No Rales, No Rhonchi, No Wheezing, No Crepitus Chest-No S4, +S1, +S2, No S3, No Murmurs, No Rubs, No Gallops, No Ectopy Abdomen-Soft, Bowel Sounds Present, Non Tender, Non Distended, No Hepatomegaly, No Splenomegaly, No Palpable Masses, No Rebound, No Rigidity, No Guarding Musculoskeletal-Full Range of Motion Bilaterally, No CVAT Extremities-No Cyanosis, No Clubbing, No Edema Nuero-Cranial Nerves II-XII grossly intact, Motor WNL, DTRs WNL, Strength WNL, Non Focal Psych-Normal Mood Admission and Anticipated Discharge Date Admission Date: August 12, 2020 Results & Data Results & Data ([facility]) Vital Signs (Past 12 Hours) Vital Signs Temp Pulse Pulse Resp BP BP Pulse Ox 08/12/20 07:29 36.7 C 71 22 169/94 H 94 08/12/20 05:00 36.8 C 86 26 H 175/93 H 95 08/12/20 04:01 79 21 155/118 H 94 08/12/20 03:42 82 19 178/125 H 94 08/12/20 03:00 163/99 H 93 08/12/20 02:46 76 93 08/12/20 02:45 165/108 H 94 08/12/20 02:30 169/105 H 94 08/12/20 02:15 82 152/107 H 93 08/12/20 02:01 75 24 188/113 H 95 08/12/20 01:45 76 19 176/113 H 95 08/12/20 01:30 75 24 164/99 H 95 08/12/20 01:18 74 21 167/100 H 94 08/12/20 01:09 80 22 164/101 H 94 08/12/20 01:01 141/105 H 95 08/12/20 00:49 176/128 H 93 08/12/20 00:13 37.4 C 82 18 183/112 H 93
[2020-08-12] MEDS: INSULIN ASPART 100 UNITS/ML 3 ML PEN SC SCH ×4 (08:54→20:43)
[2020-08-12] MEDS: carvediloL 6.25 MG TAB PO SCH ×2 (08:55→20:39)
[2020-08-12] MEDS: DOXYCYCLINE HYCLATE 100 MG in DEXTROSE 5% 100 ML IV SCH ×2 (08:55→20:30)
[2020-08-12] MEDS: ASPIRIN 81 MG ECTAB PO SCH (08:55)
[2020-08-12] MEDS: MULTIVITAMIN TAB PO SCH (08:57)
[2020-08-12] MEDS: CHOLECALCIFEROL 1,000 UNITS 25 MCG TAB PO SCH (08:57)
[2020-08-12] MEDS: amLODIPine BESYLATE 5 MG TAB PO SCH ×2 (08:57→20:40)
[2020-08-12] MEDS: INSULIN GLARGINE SOLOSTAR 100 UNITS/ML 3 ML PEN SC SCH ×2 (08:58→20:42)
[2020-08-12] MEDS: allopurinoL 100 MG TAB PO SCH (08:58)
[2020-08-12] MEDS ORDERED: MAGNESIUM OXIDE 400 MG TAB PO SCH (09:00)
[2020-08-12] MEDS ORDERED: POTASSIUM CHLORIDE 10 MEQ TABCR PO SCH (09:00)
[2020-08-12] MEDS ORDERED: LOSARTAN POTASSIUM 50 MG TAB PO SCH (09:00)
--- NOTE | 2020-08-12 09:26 | Electrocardiogram Report ---
Test Reason : Blood Pressure : / mmHG Vent. Rate : 088 BPM Atrial Rate : 075 BPM P-R Int : 212 ms QRS Dur : 138 ms QT Int : 424 ms P-R-T Axes : 077 -24 089 degrees QTc Int : 513 ms Poor data quality, interpretation may be adversely affected Sinus rhythm with 1st degree A-V block with frequent Premature atrial complexes with occasional Macy ture ventricular complexes Left bundle branch block Abnormal ECG When compared with ECG of 16-APR-2017 07:18, AL interval has increased Premature atrial complexes now present Premature ventricular complexes now present Confirmed by Ze Ly ([id number]) on 08/12/2020 9:26:14 AM Referred By: REFERRED SELF Confirmed By:Ze Ly
--- NOTE | 2020-08-12 11:15 | Consultation Report ---
DATE OF CONSULTATION: 08/12/2020 NEPHROLOGY CONSULTATION NOTE REASON FOR CONSULT: Acute renal failure on background CKD IV. HISTORY OF PRESENT ILLNESS: The patient is a 80-year-old male with extensive medical problem list including CKD stage IV with more recent baseline creatinine in the mid 2s, COPD, congestive heart failure, admitted yesterday with shortness of breath. He was also wheezing a lot more. Symptoms have been ongoing for the last few days, but was significantly worse yesterday, prompting him to come to the Emergency Department. His urine output has also been decreasing for the last few days. He does not take any diuretics at this time, but he used to be on the diuretics. Creatinine on admission yesterday was 2.8, which is only slightly higher than baseline and this morning it is even higher at 3. Respiratory virus test has all been negative. Chest x-ray and CT scan shows possible mild fluid overload. He also had an echocardiogram done just now, which shows new-onset moderate pulmonary hypertension. The patient denies taking any NSAIDs recently, did not have any diarrhea, vomiting or nausea, but was having some poor appetite for the last few days. ALLERGIES: ALLERGY LIST WAS REVIEWED AND INCLUDES CITALOPRAM, CLONIDINE, HYDROCHLOROTHIAZIDE, HYDRALAZINE, JANUVIA, LISINOPRIL, AND STATINS. PAST MEDICAL HISTORY: Includes type 2 diabetes, hypothyroidism, hyperlipidemia, chronic kidney disease stage III to stage IV with baseline creatinine in the mid 2s, history of left ventricular hypertrophy, hypertension, left bundle branch block, gouty arthritis, renal osteodystrophy, anxiety disorder, panic disorder, history of thyroid cancer, history of prostate cancer, prostate biopsy, carpal tunnel surgery, dental surgery, EGD, lumbar spine fusion surgery, prostate cryoablation, removal of thymus gland, ulnar nerve fusion. MEDICATIONS AT HOME: Reviewed in detail and are as per the H and P. He drinks very low dose of potassium and magnesium supplement as an outpatient, losartan 50 twice daily. FAMILY HISTORY: Significant for breast cancer, diabetes in sister. No renal disease or dialysis in the family. Mother has diabetes. SOCIAL HISTORY: , former smoker, quit in 1978. Smoked about a pack a day for about 20 years. No alcohol, no drugs. REVIEW OF SYSTEMS: As detailed in the HPI. Unless stated otherwise, 12 systems reviewed and negative. PHYSICAL EXAMINATION: GENERAL: Elderly white male who is somewhat obese. He does have significant wheezing and some respiratory distress at resting position. VITAL SIGNS: Blood pressure 169/94, pulse rate 71, temperature 36.7, 94% on room air. HEENT: Mucous membranes moist. NECK: Supple. Could not assess JVD. CHEST: Bilateral wheezing. CARDIOVASCULAR: S1 and S2 regular. Soft systolic murmur heard. ABDOMEN: Soft, nontender. EXTREMITIES: Show trace to 1+ edema. LABORATORY TESTS: Baseline creatinine in the mid 2s. Sodium 127, potassium 4.0, magnesium 2.3, BUN 36, creatinine 3.04, which is higher than from yesterday when it was 2.9. Hemoglobin 13.4, WBC count 9.35, platelet count 308. Chest x-ray, CT scan and echocardiogram were reviewed and showed moderate new-onset pulmonary hypertension with some component of pulmonary congestion as well as atelectasis/pneumonia. ASSESSMENT AND PLAN: A 80-year-old male admitted with shortness of breath. He has extensive cardiac as well as pulmonary as well as chronic kidney disease at baseline. I have been consulted for acute renal failure on background chronic kidney disease as well as hyponatremia. 1. Acute renal failure: The acute component of renal failure is very minimal as he has fairly extensive chronic kidney disease even at baseline. Baseline creatinine in the mid 2s and his current creatinine is 3, so this is not a big change from his baseline. No further workup is needed for the etiology of renal failure. At this point, I would have to assume the acute renal failure is secondary to hemodynamic impairment related with ongoing acute illness. I would have to assume the shortness of breath is multifactorial from both chronic obstructive pulmonary disease/respiratory tract infection/congestive heart failure. 2. Hyponatremia: Given that the patient has chronic obstructive pulmonary disease, chronic kidney disease as well as congestive heart failure, he is at high risk of hyponatremia. For the time being, I would just put him on fluid restriction of 1500 mL per day. Depending on his renal laboratories tomorrow, we may have to do IV Lasix, but for today, I would like to stop the IV fluid and not give the Lasix to see where his body equilibrates on its own. Hold losartan for now. 3. Electrolyte disorder: He takes very low dose of potassium supplement as an outpatient. Even though the pill count looks like a lot of electrolyte supplement, the actual dose is very minimal to the point it probably means nothing. We will stop potassium and magnesium totally and check laboratories every day. Thank you very much. Case was discussed with Dr. Guadalupe in cardiology in detail regarding the diuretics and the cardiac status. MTDD
[2020-08-12 12:02] LABS: Calcium 8.6 mg/dl (8.5-10.1); Creatinine Clr Calc Pharmacy 23.5 ml/min; Est GFR (African American) 23.3; Est GFR (Non-African American) 20.1; Potassium 4.1 mmol/L (3.5-5.1)
[2020-08-12 12:13] LABS: Troponin I 0.057 ng/ml (0-0.045)
--- NOTE | 2020-08-12 13:11 | Cardiology Consultation ---
Date of Consultation August 12, 2020 History of Present Illness Attending Physician: Onel Panda DO History of Present Illness Mr David is a 80-year-old male seen in cardiology consultation per the request of Dr. Briceño for the evaluation of shortness of breath. The patient follows with cardiology due to his history of labile hypertension and left bundle branch block. He carries a history of a low normal to normal LVEF, and chronic kidney disease with baseline creatinine in the range of 2-2.6. He tells me that he quit cigarette smoking in 1978. He presented to the emergency department yesterday via EMS for progressive short ness of breath. He is feeling mildly improved at present. He denies charlene chest discomfort. Allergies Allergy/AdvReac Type Severity Reaction Status Date / Time clonidine Allergy Unknown allergic Unverified 02/25/18 08:49 to all but 1 brand carvedilol Allergy Hives Verified 08/12/20 01:48 losartan Allergy Unknown Verified 08/12/20 01:48 ANJELICA Inhibitors AdvReac Intermediate INTOLERANCE Verified 02/25/18 08:49 PER MD ORDER allopurinol AdvReac Intermediate severe abd Verified 02/25/18 08:49 pain Beta-Blockers AdvReac Intermediate INTOLERANCE Verified 02/25/18 08:49 (Beta-Adrenergic Bloc PER DR ARELLANO doxazosin AdvReac Intermediate INTOLERANCE Verified 02/25/18 08:[address] ARELLANO Dbgvzkg-Mos-Ilg Reductase AdvReac Intermediate INTOLERANCE Verified 02/25/18 08:[address] ARELLANO citalopram AdvReac Unknown Verified 08/12/20 01:48 hydralazine AdvReac diarrhea, Verified 08/12/20 01:48 testicular pain hydrochlorothiazide AdvReac hyponatremi Verified 08/12/20 01:48 a lisinopril AdvReac Cough Verified 08/12/20 01:48 simvastatin [From Zocor] AdvReac Muscle Pain Verified 08/12/20 01:48 sitagliptin [From Januvia] AdvReac restlessnes Verified 08/12/20 01:48 s Home Medications Medication Instructions Recorded Confirmed Type allopurinol 200 mg PO DAILY 02/25/18 08/12/20 History aspirin 81 mg PO DAILY 02/25/18 08/12/20 History glipizide 10 mg PO BID 02/25/18 08/12/20 History lorazepam 1 tab PO TID PRN 02/25/18 08/12/20 History potassium chloride 10 meq PO 2XWK 02/25/18 08/12/20 History potassium chloride 10 meq PO DAILY 02/25/18 08/12/20 History albuterol sulfate 2 puff INHALATION Q4 PRN 08/12/20 08/12/20 History amlodipine 2.5 mg PO BID 08/12/20 08/12/20 History carvedilol 6.25 mg PO BID 08/12/20 08/12/20 History cholecalciferol (vitamin D3) 75 mcg PO DAILY 08/12/20 08/12/20 History [Vitamin D3] diclofenac sodium 2 g TOPICAL TID PRN 08/12/20 08/12/20 History levothyroxine 150 mcg PO DAILY 08/12/20 08/12/20 History losartan 50 mg PO BID 08/12/20 08/12/20 History magnesium 250 mg PO 3XWK 08/12/20 08/12/20 History multivitamin 1 tab PO DAILY 08/12/20 08/12/20 History terazosin 1 mg PO HS 08/12/20 08/12/20 History Patient History Medical History (Updated 08/12/20 @ 07:45 by Onel Panda DO) Diabetes Hypertension Prostate ca Thyroid cancer Surgical History S/P lumbar fusion Social History Smoking Status: Former smoker Second Hand Exposure: No; Do You Dip or Chew Tobacco: No; Tobacco Cessation Education Requested by Patient: No Hx Alcohol Use: No Hx Substance Use: No Preferred Language: Hungarian Communication Ability: Effective Sample Builder Required: No Beliefs That Will Affect Care: None Current Living Situation: Alone Other Information That Helps Us Care for You: No Feels Safe at Home: Yes Safety Concerns: Feels Safe At This Time Assistive Devices: Walker Review of Systems Review of Systems: All systems reviewed & are unremarkable except as noted in HPI & below Physical Exam Physical Exam: Temp Pulse Resp BP Pulse Ox 36.6 C 81 16 161/103 H 92 08/12/20 11:22 08/12/20 11:22 08/12/20 11:22 08/12/20 11:22 08/12/20 11:22 Constitutional: WD/WN, vitals as above Respiratory: Mild apical wheezing bilaterally Cardiovascular: Rate/Rhythm: regular rate Heart Sounds: no murmur Extremities: + edema (And lower extremity, knee-high compression stockings in place) Gastrointestinal (Abdomen): normal bowel sounds, soft, nontender, no hepatosplenomegaly Neurologic: PERRL, EOMI, accommodation nl, no face palsy, no dysarthria Results & Data ([facility]) Vital Signs (Past 12 Hours) Vital Signs Temp Pulse Pulse Resp BP BP Pulse Ox 08/12/20 11:22 36.6 C 81 16 161/103 H 92 08/12/20 07:29 36.7 C 71 22 169/94 H 94 08/12/20 05:00 36.8 C 86 26 H 175/93 H 95 08/12/20 04:01 79 21 155/118 H 94 08/12/20 03:42 82 19 178/125 H 94 08/12/20 03:00 163/99 H 93 08/12/20 02:46 76 93 08/12/20 02:45 165/108 H 94 08/12/20 02:30 169/105 H 94 08/12/20 02:15 82 152/107 H 93 08/12/20 02:01 75 24 188/113 H 95 08/12/20 01:45 76 19 176/113 H 95 08/12/20 01:30 75 24 164/99 H 95 08/12/20 01:18 74 21 167/100 H 94 08/12/20 01:09 80 22 164/101 H 94 Laboratory Results Cardiac Enzymes 08/12/20 08/12/20 08/12/20 Range/Units 00:00 05:17 11:18 AST 23 (15-37) U/L Troponin I 0.041 0.043 0.057 H* (0-0.045) ng/ml Coagulation 08/12/20 Range/Units 00:00 PT 10.0 (9.0-12.0) Seconds CBC 08/12/20 08/12/20 Range/Units 00:00 05:17 WBC 8.59 9.35 (4.8-10.8) K/uL RBC 4.24 L 4.39 L (4.7-6.1) M/uL Hgb 13.3 L 13.4 L (14.0-18.0) g/dL Hct 35.4 L 37.0 L (42-52) % Plt Count 338 308 (130-400) K/uL Neut # (Auto) 5.99 6.96 H (1.4-6.5) K/uL Lymph # (Auto) 1.38 1.31 (1.2-3.4) K/uL [place] # (Auto) 0.95 H 0.89 H (0.11-0.59) K/uL Eos # (Auto) 0.23 0.14 (0-0.5) K/uL Baso # (Auto) 0.03 0.04 (0-0.2) K/uL Comprehensive Metabolic Panel 08/12/20 08/12/20 08/12/20 Range/Units 00:00 05:17 11:18 Sodium 126 L 127 L 126 L (136-145) mmol/L Potassium 4.2 4.0 4.1 (3.5-5.1) mmol/L Chloride 93 L 92 L 93 L (98-107) mmol/L Carbon Dioxide 25 28 28 (21-32) mmol/L BUN 34 H 36 H 37 H (7-18) mg/dl Creatinine 2.87 H 3.04 H 2.85 H (0.6-1.4) mg/dl Glucose 206 H 220 H 206 H (70-99) mg/dl Calcium 9.2 9.0 8.6 (8.5-10.1) mg/dl AST 23 (15-37) U/L ALT 35 (12-78) U/L Alkaline Phosphatase 105 (45-117) U/L Total Protein 8.7 H (6.4-8.2) gm/dl Albumin 3.7 (3.4-5.0) gm/dl Intake and Output 08/11/20 08/12/20 08/12/20 22:59 06:59 14:59 Intake Total 483.75 / 483.75 Output Total 80 / 80 200 / 200 Balance -80 / -80 283.75 / 283.75 Intake: IV 483.75 / 483.75 Vibramycin 100 mg In D5 100 ml 110 / 110 @ 50 mls/hr IV Q12H [facility], [facility]–1983 Rx#: [id number] Nss 1000ML 1,000 ml @ 75 mls/hr 303.75 / 303.75 IV .[id number] [facility] Rx#:[id number] Rocephin 2,000 mg In D5w 50 ml 70 / 70 @ 100 mls/hr IV Q24H [facility] Rx#: [id number] Output: Urine 80 / 80 200 / 200 Other: Weight 98.3 kg 98.3 kg Weight Measurement Method Standing Scale Patient Weight 08/13/20 06:59 Weight 98.3 kg Diagnostic Findings EKG performed 08/12/2020 are reviewed and telemetry reveals sinus rhythm at 80 bpm with first-degree AV block, left bundle branch block, premature ventricular contractions. Compared to prior tracings, the left bundle branch block is chronic. Transthoracic echocardiogram performed today 08/12/2020 and reviewed independently: Mild concentric left ventricular hypertrophy is present Abnormal septal motion consistent with left bundle branch, otherwise normal LV wall motion. Low normal LVEF, 50-55%. Mild mitral vegetation is present. Moderate pulmonary hypertension is present, the pulmonary systolic pressure is estimated be 55 mmHg. Grade 1 diastolic dysfunction. Compared to prior study dating back to 2017, moderate pulmonary hypertension is now present.
--- NOTE | 2020-08-12 14:27 | Ultrasound Report ---
BILATERAL LOWER EXTREMITY VENOUS DOPPLER CLINICAL HISTORY: shortness of breath, DVT COMPARISON STUDY: No previous studies for comparison. TECHNIQUE: Sonography of the deep venous system of the bilateral lower extremities was performed. Co mpression and augmentation were evaluated. FINDINGS: The bilateral common femoral, superficial femoral and popliteal veins were compressible. A ugmentation was normal. Flow was shown within the deep calf vessels. Note is made of a 6.6 x 1.4 x 2. 7 cm mildly complicated cystic focus within the right popliteal fossa IMPRESSION: 1. No evidence of deep venous thrombus within the bilateral lower extremities. 2. 6.6 x 1.4 x 2.7 cm suspected right popliteal cyst. ACT 112: Negative or not required by law. Electronically signed by: Logan Zuñiga M.D. 08/12/2020 2:26 PM
[2020-08-12 18:35] LABS: BUN Creatinine Ratio 13.5 (10-20); Calcium 8.1 mg/dl (8.5-10.1); Creatinine Clr Calc Pharmacy 22.5 ml/min; Est GFR (African American) 22.1; Potassium 4.2 mmol/L (3.5-5.1)
[2020-08-12] MEDS: TERAZOSIN HCL 1 MG CAP PO SCH (20:40)
[2020-08-13] MEDS ORDERED: ALBUT/IPRATROP 3MG/0.5MG NEB 3 ML VIAL NEB PRN (01:45)
[2020-08-13] MEDS: cefTRIAXone SODIUM 2,000 MG in DEXTROSE 5% 50 ML IV SCH (06:10)
[2020-08-13] MEDS: LEVOTHYROXINE SODIUM 150 MCG TABLET PO SCH (06:11)
[2020-08-13] MEDS: HEPARIN SOD 5,000 UNIT/0.5 ML VIAL SQ SCH ×3 (06:11→21:27)
[2020-08-13 07:27] LABS: BUN Creatinine Ratio 13.7 (10-20); Calcium 8.3 mg/dl (8.5-10.1); Creatinine Clr Calc Pharmacy 23.3 ml/min; Est GFR (African American) 23.1; Est GFR (Non-African American) 19.9; Magnesium 2.3 mg/dl (1.8-2.4); Potassium 3.7 mmol/L (3.5-5.1)
[2020-08-13] MEDS: CHOLECALCIFEROL 1,000 UNITS 25 MCG TAB PO SCH (08:08)
[2020-08-13] MEDS: allopurinoL 100 MG TAB PO SCH (08:09)
[2020-08-13] MEDS: ASPIRIN 81 MG ECTAB PO SCH (08:09)
[2020-08-13] MEDS: MULTIVITAMIN TAB PO SCH (08:09)
[2020-08-13] MEDS: carvediloL 6.25 MG TAB PO SCH ×2 (08:09→21:27)
[2020-08-13] MEDS: amLODIPine BESYLATE 5 MG TAB PO SCH ×2 (08:09→21:27)
[2020-08-13] MEDS: INSULIN ASPART 100 UNITS/ML 3 ML PEN SC SCH ×4 (08:10→21:25)
[2020-08-13] MEDS: INSULIN GLARGINE SOLOSTAR 100 UNITS/ML 3 ML PEN SC SCH ×2 (08:10→21:26)
[2020-08-13] MEDS: DOXYCYCLINE HYCLATE 100 MG in DEXTROSE 5% 100 ML IV SCH (08:10)
[2020-08-13] MEDS ORDERED: POTASSIUM CHLORIDE 10 MEQ TABCR PO SCH (09:00)
--- NOTE | 2020-08-13 09:59 | Nephrology Progress Note ---
Date of Service August 13, 2020 Assessment & Plan Admission and Anticipated Discharge Date Admission Date: August 12, 2020 Subjective Still SOB but less. Labs are stable. PHYSICAL EXAMINATION: GENERAL: Elderly white male who is somewhat obese. He does have significant wheezing and some respiratory distress at resting position. HEENT: Mucous membranes moist. NECK: Supple. Could not assess JVD. CHEST: Bilateral wheezing. CARDIOVASCULAR: S1 and S2 regular. Soft systolic murmur heard. ABDOMEN: Soft, nontender. EXTREMITIES: 1+ edema. LABORATORY TESTS: Creat about same ASSESSMENT AND PLAN: A 80-year-old male admitted with shortness of breath. He has extensive cardiac as well as pulmonary as well as chronic kidney disease at baseline. I have been consulted for acute renal failure on background chronic kidney disease as well as hyponatremia. 1. Acute renal failure: The acute component of renal failure is very minimal as he has fairly extensive chronic kidney disease even at baseline. Baseline creatinine in the mid 2s and his current creatinine is 3, so this is not a big change from his baseline. No further workup is needed for the etiology of renal failure. At this point, I would have to assume the acute renal failure is secondary to hemodynamic impairment related with ongoing acute illness. I would have to assume the shortness of breath is multifactorial from both chronic obstructive pulmonary disease/respiratory tract infection/congestive heart failure. 2. Hyponatremia: Given that the patient has chronic obstructive pulmonary disease, chronic kidney disease as well as congestive heart failure, he is at high risk of hyponatremia. fluid restriction of 1500 mL per day. Rec for today: 1 Lasix 40 iv bid. 2 I and O. 3 Daily labs including Mag. Results & Data ([facility]) Vital Signs (Past 12 Hours) Vital Signs Temp Pulse Pulse Resp BP BP Pulse Ox 08/13/20 08:10 36.4 C L 80 20 151/76 H 94 08/13/20 07:32 82 08/13/20 04:00 36.7 C 77 18 140/74 93 08/13/20 02:12 66 22 96 08/13/20 01:09 77 08/12/20 23:25 37.0 C 71 18 126/73 93
[2020-08-13] MEDS: FUROSEMIDE 40 MG in SYRINGE 0 ML IV SCH ×2 (10:39→21:27)
[2020-08-13] MEDS: POTASSIUM CHLORIDE 10 MEQ TABCR PO SCH ×2 (10:39→21:27)
--- NOTE | 2020-08-13 11:02 | Hospitalist Progress Note ---
Date of Service August 13, 2020 Assessment & Plan (1) Pneumonia: ASSESSMENT AND PLAN: This is a 80-year-old male who presents with shortness of breath. Admitted by Dr Briceño 2 hours ago 1. Shortness of breath. + wheezing today. Some lower extremity edema which seems chronic. Echo done in April 2019 shows normal EF, mild left ventricular wall thickness, mild mitral regurgitation, moderate aortic valve sclerosis. The patient has lower extremity edema, could be from his amlodipine use, could be from congestive heart failure. We will follow CT of the chest, currently saturating fine on room air. We will monitor in the med tele. Cardiology on case. The patient has history of smoking in the past. 3. Hyponatremia, sodium of 126. Nephrology on case, Fluid restriction. 4. Acute kidney injury on chronic kidney disease stage III. Baseline creatinine around 2-2.4 as per creatinine in 2019. 5. Diabetes. Hold his glipizide. Place on Lantus insulin sliding scale. 6. History of hypertension, labile hypertension, on Coreg, losartan, terazosin. [facility] did not have amlodipine but the patient says he is taking amlodipine half tablet b.i.d. 2.5 mg p.o. b.i.d., which we will continue for now and monitor his blood pressure. 7. Hypothyroidism. Continue Synthroid. 8. Anxiety. Continue his Ativan p.r.n. 9. Electrolyte abnormality. Continue his home potassium and magnesium supplement for now and follow the labs. 10. History of gout. Continue allopurinol. 11. History of prostate cancer status post cryotherapy. 12. History of thyroid cancer, status post resection. 13. Deep venous thrombosis prophylaxis. Heparin subQ. DISPOSITION: Tele. PT/OT prior to discharge. Social service to help with discharge planning. Level 1 full code[address] Labs Checked. Ct chest shows bibasilar infiltrates possibly pneumonia. empirically started on Rocephin and doxycycline. ROS-No Headache, No Visual Changes, No Nausea, No Vomiting, No Fever, No Chills, No Neck Pain or Stiffness, No Chest Pain, No Palpitations, No SOB, No ROSE, No Cough, No Sputum, No Wheezing, No Abdominal Pain, No Diarrhea, No Hematemesis, No Hemoptysis, No Unexpected Weight Loss, No Flank pain, No Melena, No Hematochezia, No Frequency, No Urgency, No Burning, No Hematuria, No Rashes, No Diaphoresis. Appetite is Normal Physical Exam Gen-AAO x 3, NAD, Afebrile, obese Head-NCAT, EOMI, PERRLA, Anicteric Sclera, No Posterior Pharyngeal Erythema Neck-Supple, No JVD, No Thyromegaly, No Masses, No LAD, No Bruits Lungs-Clear to Auscultation Bilaterally, No Rales, No Rhonchi, +Audible Wheezing, No Crepitus Chest-No S4, +S1, +S2, No S3, No Murmurs, No Rubs, No Gallops, No Ectopy Abdomen-Soft, Bowel Sounds Present, Non Tender, Non Distended, No Hepatomegaly, No Splenomegaly, No Palpable Masses, No Rebound, No Rigidity, No Guarding Musculoskeletal-Full Range of Motion Bilaterally, No CVAT Extremities-No Cyanosis, No Clubbing, No Edema Nuero-Cranial Nerves II-XII grossly intact, Motor WNL, DTRs WNL, Strength WNL, Non Focal Psych-Normal Mood Admission and Anticipated Discharge Date Admission Date: August 12, 2020 Results & Data Results & Data ([facility]) Vital Signs (Past 12 Hours) Vital Signs Temp Pulse Pulse Resp BP BP Pulse Ox 08/13/20 08:10 36.4 C L 80 20 151/76 H 94 08/13/20 07:32 82 08/13/20 04:00 36.7 C 77 18 140/74 93 08/13/20 02:12 66 22 96 08/13/20 01:09 77 08/12/20 23:25 37.0 C 71 18 126/73 93
--- NOTE | 2020-08-13 18:48 | Cardiology Progress Note ---
Date of Service August 13, 2020 Assessment & Plan (1) ROSE (dyspnea on exertion): Perhaps related to hypertension, diastolic dysfunction. Bronchitis also a possibility. Agree with IV furosemide. Transition doxycycline to oral. (2) KYRA (acute kidney injury): Creatinine trending toward baseline. (3) Hyponatremia: Patient tells me he has been taking hydrochlorothiazide as outpatient although discontinued from his medicine list. He has been on this medication in the past. This may in part explain his hyponatremia. Admission and Anticipated Discharge Date Admission Date: August 12, 2020 Subjective Patient seen in cardiology follow-up. Notes feeling subjectively improved. Net urine output 2.8 L last night and today. Review of Systems Review of Systems: All systems reviewed & are unremarkable except as noted in HPI & below Physical Exam Physical Exam: Temp Pulse Resp BP Pulse Ox 36.7 C 71 18 153/71 H 94 08/13/20 15:33 08/13/20 15:33 08/13/20 15:33 08/13/20 15:33 08/13/20 15:33 Constitutional: WD/WN, vitals as above Respiratory: normal respiratory effort, lungs clear to auscultation Cardiovascular: RRR, no murmur, no edema Gastrointestinal (Abdomen): normal bowel sounds, soft, nontender, no hepatosplenomegaly Neurologic: PERRL, EOMI, accommodation nl, no face palsy, no dysarthria Results & Data ([facility]) Vital Signs (Past 12 Hours) Vital Signs Temp Pulse Pulse Resp BP BP Pulse Ox 08/13/20 15:33 36.7 C 71 18 153/71 H 94 08/13/20 15:20 77 08/13/20 11:57 36.5 C 76 20 143/97 H 93 08/13/20 08:10 36.4 C L 80 20 151/76 H 94 08/13/20 07:32 82 Laboratory Results Comprehensive Metabolic Panel 08/13/20 Range/Units 06:37 Sodium 126 L (136-145) mmol/L Potassium 3.7 (3.5-5.1) mmol/L Chloride 94 L (98-107) mmol/L Carbon Dioxide 25 (21-32) mmol/L BUN 39 H (7-18) mg/dl Creatinine 2.87 H (0.6-1.4) mg/dl Glucose 127 H (70-99) mg/dl Calcium 8.3 L (8.5-10.1) mg/dl Intake and Output 08/13/20 08/13/20 08/13/20 06:59 14:59 22:59 Intake Total 210 / 1153.75 620 / 620 Output Total 750 / 1900 1427 / 1427 Balance -540 / -746.25 -807 / -807 Intake: IV 110 / 593.75 180 / 180 Vibramycin 100 mg In D5 100 ml 110 / 220 110 / 110 @ 50 mls/hr IV Q12H [facility] Rx#: [id number] Rocephin 2,000 mg In D5w 50 ml 70 / 70 @ 100 mls/hr IV Q24H [facility] Rx#: [id number] Oral 100 / 560 440 / 440 Output: Urine 750 / 1900 1425 / 1425 # Bowel Movements 2 / 2 Other: Weight 98.5 kg Weight Measurement Method Standing Scale
[2020-08-13] MEDS: DOXYCYCLINE HYCLATE 100 MG CAP PO SCH (21:23)
[2020-08-13] MEDS: TERAZOSIN HCL 1 MG CAP PO SCH (21:27)
[2020-08-14] MEDS: LEVOTHYROXINE SODIUM 150 MCG TABLET PO SCH (05:46)
[2020-08-14] MEDS: HEPARIN SOD 5,000 UNIT/0.5 ML VIAL SQ SCH ×3 (05:46→21:26)
[2020-08-14] MEDS: CHOLECALCIFEROL 1,000 UNITS 25 MCG TAB PO SCH (08:03)
[2020-08-14] MEDS: POTASSIUM CHLORIDE 10 MEQ TABCR PO SCH ×2 (08:03→21:25)
[2020-08-14] MEDS: DOXYCYCLINE HYCLATE 100 MG CAP PO SCH ×2 (08:03→21:25)
[2020-08-14] MEDS: amLODIPine BESYLATE 5 MG TAB PO SCH ×2 (08:04→21:25)
[2020-08-14] MEDS: ASPIRIN 81 MG ECTAB PO SCH (08:04)
[2020-08-14] MEDS: carvediloL 6.25 MG TAB PO SCH ×2 (08:04→21:25)
[2020-08-14] MEDS: FUROSEMIDE 40 MG in SYRINGE 0 ML IV SCH ×2 (08:05→21:26)
[2020-08-14] MEDS: allopurinoL 100 MG TAB PO SCH (08:05)
[2020-08-14] MEDS: MULTIVITAMIN TAB PO SCH (08:05)
[2020-08-14] MEDS: INSULIN ASPART 100 UNITS/ML 3 ML PEN SC SCH ×4 (08:07→21:27)
[2020-08-14] MEDS: INSULIN GLARGINE SOLOSTAR 100 UNITS/ML 3 ML PEN SC SCH ×2 (08:09→21:26)
[2020-08-14 08:15] LABS: Hematocrit (blood only) 32.3 % (42-52); Hemoglobin 12.1 g/dL (14.0-18.0); Mean Corpuscular Hemoglobin 30.9 pg (25-34); Mean Corpuscular Hgb Conc 37.5 g/dL (32-36); Mean Corpuscular Volume 82.4 fL (80-100); Mean Platelet Volume 9.7 fL (7.4-10.4); Platelet Count 277 K/uL (130-400); RDW Coefficient of Variation 12.5 % (11.5-14.5); RDW Standard Deviation 37.5 fL (36.4-46.3); Red Blood Count 3.92 M/uL (4.7-6.1); White Blood Count 5.47 K/uL (4.8-10.8)
[2020-08-14 08:44] LABS: BUN Creatinine Ratio 13.8 (10-20); Calcium 8.3 mg/dl (8.5-10.1); Creatinine Clr Calc Pharmacy 21.7 ml/min; Est GFR (African American) 21.8; Est GFR (Non-African American) 18.8; Potassium 3.7 mmol/L (3.5-5.1)
--- NOTE | 2020-08-14 10:25 | Nephrology Progress Note ---
Date of Service August 14, 2020 Assessment & Plan Admission and Anticipated Discharge Date Admission Date: August 12, 2020 Subjective Still SOB but less. Labs are worse PHYSICAL EXAMINATION: GENERAL: Elderly white male who is somewhat obese. He does have significant wheezing and some respiratory distress at resting position. HEENT: Mucous membranes moist. NECK: Supple. Could not assess JVD. CHEST: Bilateral wheezing. CARDIOVASCULAR: S1 and S2 regular. Soft systolic murmur heard. ABDOMEN: Soft, nontender. EXTREMITIES: Trace edema. LABORATORY TESTS: Creat worse and na 124 ASSESSMENT AND PLAN: A 80-year-old male admitted with shortness of breath. He has extensive cardiac as well as pulmonary as well as chronic kidney disease at baseline. I have been consulted for acute renal failure on background chronic kidney disease as well as hyponatremia. 1. Acute renal failure: The acute component of renal failure is very minimal as he has fairly extensive chronic kidney disease even at baseline. Baseline creatinine in the mid to late 2s and his current creatinine is 3, so this is not a big change from his baseline. No further workup is needed for the etiology of renal failure. At this point, I would have to assume the acute renal failure is secondary to hemodynamic impairment related with ongoing acute illness. I would have to assume the shortness of breath is multifactorial from both chronic obstructive pulmonary disease/respiratory tract infection/congestive heart failure. 2. Hyponatremia: Given that the patient has chronic obstructive pulmonary disease, chronic kidney disease as well as congestive heart failure, he is at high risk of hyponatremia. fluid restriction of 1500 mL per day. Rec for today: 1 IV Lasix 40 iv bid to continue. made 2800 ml urine. 2 I and O. 3 Daily labs including Mag. 4 Difficult Situation Results & Data ([facility]) Vital Signs (Past 12 Hours) Vital Signs Temp Pulse Pulse Resp BP Pulse Ox 08/14/20 09:58 81 08/14/20 07:30 36.7 C 76 18 148/92 H 95 08/14/20 03:02 37.1 C 65 19 147/77 H 96 08/14/20 00:44 84 08/13/20 23:12 36.6 C 60 19 144/88 H 94
--- NOTE | 2020-08-14 15:15 | Hospitalist Progress Note ---
Date of Service August 14, 2020 Assessment & Plan (1) Pneumonia: ASSESSMENT AND PLAN: This is a 80-year-old male who presents with shortness of breath. 1. Shortness of breath: Feeling okay. Currently on room air. Wheezing is improved. C/W oral doxycycline. Ceftriaxone has been discontinued. Appreciate cardiology input. Patient is afebrile. WBC is within normal limit. 3. Hyponatremia: Appreciate nephrology input, sodium today at 124, continue fluid restriction 1500 mL/day. 4. Acute kidney injury on chronic kidney disease stage III. Baseline creatinine around 2-2.4 as per creatinine in 2019. 5. Diabetes. Hold his glipizide. Continue Lantus insulin sliding scale. 6. History of hypertension, labile hypertension, on Coreg, losartan, terazosin. Epic did not have amlodipine but the patient says he is taking amlodipine half tablet b.i.d. 2.5 mg p.o. b.i.d.,; continue with 7. Hypothyroidism. Continue Synthroid. 8. Anxiety. Continue his Ativan p.r.n. 9. Electrolyte abnormality. Continue his home potassium and magnesium supplement for now and follow the labs. 10. History of gout. Continue allopurinol. 11. History of prostate cancer status post cryotherapy. 12. History of thyroid cancer, status post resection. 13. Deep venous thrombosis prophylaxis. Heparin subQ. Admission and Anticipated Discharge Date Admission Date: August 12, 2020 Subjective Doing okay this morning. Currently on room air. Shortness of breath is significantly improved. Denies any chest pain. Denies any abdominal pain, diarrhea or dysuria. Does have intermittent cough. Review of systems negative. Review of Systems Review of Systems: All systems reviewed & are unremarkable except as noted in HPI & below Physical Exam Physical Exam: General: A&Ox3 HENT: NCAT, MMM, EOMI Eyes: PERRLA Neck: Supple, normal range of motion CVS: normal rate and rhythm Resp: b/l decreased breath sounds Abdomen: Soft, ND/NT, +BS Extremities: No c/c/e Neuro: face symmetric, strength grossly equal, no focal deficit Skin: warm and dry, no rashes/lesions/errythema MSK: normal ROM, no joint swelling/erythema Results & Data Results & Data ([facility]) Vital Signs (Past 12 Hours) Vital Signs Temp Pulse Pulse Resp BP BP Pulse Ox 08/14/20 11:04 36.8 C 61 18 124/52 L 94 08/14/20 09:58 81 08/14/20 07:30 36.7 C 76 18 148/92 H 95
[2020-08-14] MEDS: LORazepam 0.5 MG TAB PO PRN (17:15)
[2020-08-14] MEDS: TERAZOSIN HCL 1 MG CAP PO SCH (21:25)
[2020-08-15] MEDS: LEVOTHYROXINE SODIUM 150 MCG TABLET PO SCH (05:48)
[2020-08-15] MEDS: HEPARIN SOD 5,000 UNIT/0.5 ML VIAL SQ SCH ×3 (05:48→21:01)
[2020-08-15] MEDS: FUROSEMIDE 40 MG in SYRINGE 0 ML IV SCH (07:50)
[2020-08-15] MEDS: MULTIVITAMIN TAB PO SCH (07:51)
[2020-08-15] MEDS: amLODIPine BESYLATE 5 MG TAB PO SCH ×2 (07:51→20:59)
[2020-08-15] MEDS: ASPIRIN 81 MG ECTAB PO SCH (07:51)
[2020-08-15] MEDS: DOXYCYCLINE HYCLATE 100 MG CAP PO SCH ×2 (07:51→21:00)
[2020-08-15] MEDS: CHOLECALCIFEROL 1,000 UNITS 25 MCG TAB PO SCH (07:51)
[2020-08-15] MEDS: carvediloL 6.25 MG TAB PO SCH ×2 (07:52→20:58)
[2020-08-15] MEDS: POTASSIUM CHLORIDE 10 MEQ TABCR PO SCH (07:52)
[2020-08-15] MEDS: allopurinoL 100 MG TAB PO SCH (07:53)
[2020-08-15 08:17] LABS: Basophils # (auto) 0.02 K/uL (0-0.2); Basophils % (auto) 0.3 %; Eosinophils % (auto) 3.2 %; Hematocrit (blood only) 32.7 % (42-52); Immature Granulocytes # (auto) 0.02 K/uL (0.00-0.02); Immature Granulocytes % (auto) 0.3 %; Lymphocytes # (auto) 1.26 K/uL (1.2-3.4); Lymphocytes % (auto) 20.2 %; Mean Corpuscular Hemoglobin 30.8 pg (25-34); Mean Corpuscular Hgb Conc 36.7 g/dL (32-36); Mean Corpuscular Volume 83.8 fL (80-100); Mean Platelet Volume 9.8 fL (7.4-10.4); Monocytes # (auto) 0.77 K/uL (0.11-0.59); Monocytes % (auto) 12.3 %; Neutrophils # (auto) 3.98 K/uL (1.4-6.5); Neutrophils % (auto) 63.7 %; Platelet Count 271 K/uL (130-400); RDW Coefficient of Variation 12.6 % (11.5-14.5); RDW Standard Deviation 38.5 fL (36.4-46.3); White Blood Count 6.25 K/uL (4.8-10.8)
[2020-08-15] MEDS: INSULIN GLARGINE SOLOSTAR 100 UNITS/ML 3 ML PEN SC SCH ×2 (08:45→20:59)
[2020-08-15] MEDS: INSULIN ASPART 100 UNITS/ML 3 ML PEN SC SCH ×4 (08:45→21:02)
[2020-08-15 08:53] LABS: Albumin Level 3.4 gm/dl (3.4-5.0); BUN Creatinine Ratio 14.5 (10-20); Calcium 8.3 mg/dl (8.5-10.1); Creatinine Clr Calc Pharmacy 21.7 ml/min; Est GFR (African American) 21.2; Est GFR (Non-African American) 18.3; Magnesium 2.1 mg/dl (1.8-2.4); Potassium 3.6 mmol/L (3.5-5.1)
[2020-08-15 08:56] LABS: Albumin Globulin Ratio 0.9 (0.9-2); Bilirubin,Total 0.6 mg/dl (0.2-1); Globulin 3.9 gm/dl (2.5-4.0); Total Protein 7.3 gm/dl (6.4-8.2)
--- NOTE | 2020-08-15 10:05 | Nephrology Progress Note ---
Date of Service August 15, 2020 Assessment & Plan Admission and Anticipated Discharge Date Admission Date: August 12, 2020 Subjective Still SOB but less. Labs are about stable. PHYSICAL EXAMINATION: GENERAL: Elderly white male who is somewhat obese. He does have significant wheezing and some respiratory distress at resting position. HEENT: Mucous membranes moist. NECK: Supple. Could not assess JVD. CHEST: Bilateral wheezing. CARDIOVASCULAR: S1 and S2 regular. Soft systolic murmur heard. ABDOMEN: Soft, nontender. EXTREMITIES: 1+ edema. LABORATORY TESTS: creat 3.08 and na 128 ASSESSMENT AND PLAN: A 80-year-old male admitted with shortness of breath. He has extensive cardiac as well as pulmonary as well as chronic kidney disease at baseline. I have been consulted for acute renal failure on background chronic kidney disease as well as hyponatremia. 1. Acute renal failure: The acute component of renal failure is very minimal as he has fairly extensive chronic kidney disease even at baseline. Baseline creatinine in the mid to late 2s and his current creatinine is 3, so this is not a big change from his baseline. No further workup is needed for the etiology of renal failure. At this point, I would have to assume the acute renal failure is secondary to hemodynamic impairment related with ongoing acute illness. I would have to assume the shortness of breath is multifactorial from both chronic obstructive pulmonary disease/respiratory tract infection/congestive heart failure. 2. Hyponatremia: Given that the patient has chronic obstructive pulmonary disease, chronic kidney disease as well as congestive heart failure, he is at high risk of hyponatremia. fluid restriction of 1500 mL per day. Rec for today: 1 Raise iV Lasix to 60 iv bid to continue. made 1900 ml urine. 2 I and O. 3 Daily labs including Mag. 4 Difficult Situation 5 Will start torsemide 100 daily for outpt at the time of Discharge. Also needs f/u 6 Creat has been right around 3 since 08/12 so would call this as new baseline Results & Data ([facility]) Vital Signs (Past 12 Hours) Vital Signs Temp Pulse Pulse Resp BP BP Pulse Ox 08/15/20 07:43 36.8 C 74 16 127/76 94 08/15/20 03:14 37.3 C 88 18 124/72 92 08/15/20 00:29 80 08/14/20 23:07 37.2 C 93 H 18 113/70 92
--- NOTE | 2020-08-15 12:00 | Hospitalist Progress Note ---
Date of Service August 15, 2020 Assessment & Plan (1) Pneumonia: ASSESSMENT AND PLAN: This is a 80-year-old male who presents with shortness of breath. 1. Shortness of breath: Overall continues to feel better. Adequate urine output. Nephrology is on board. Lasix IV 60 mg twice daily. Monitor ins and outs along with daily weights. Appreciate cardiology input. Patient is afebrile. WBC is within normal limit. Patient is on room air. Is afebrile. 3. Hyponatremia: Appreciate nephrology input, sodium today at 128, continue fluid restriction 1500 mL/day. 4. Acute kidney injury on chronic kidney disease stage III. Baseline creatinine around 2-2.4 as per creatinine in 2020. 5. Diabetes. Hold his glipizide. Continue Lantus insulin sliding scale. 6. History of hypertension, labile hypertension, on Coreg, losartan, terazosin. Epic did not have amlodipine but the patient says he is taking amlodipine half tablet b.i.d. 2.5 mg p.o. b.i.d.,; continue with 7. Hypothyroidism. Continue Synthroid. 8. Anxiety. Continue his Ativan p.r.n. 9. Electrolyte abnormality. Continue his home potassium and magnesium supplement for now and follow the labs. 10. History of gout. Continue allopurinol. 11. History of prostate cancer status post cryotherapy. 12. History of thyroid cancer, status post resection. 13. Deep venous thrombosis prophylaxis. Heparin subQ. Admission and Anticipated Discharge Date Admission Date: August 12, 2020 Subjective Overall patient doing okay. Reports he feels much better. Urine output has been adequate. Sodium at 128 today. Hemodynamically doing fine. Review of system is mainly negative. Review of Systems Review of Systems: All systems reviewed & are unremarkable except as noted in HPI & below Physical Exam Physical Exam: General: A&Ox3 HENT: NCAT, MMM, EOMI Eyes: PERRLA Neck: Supple, normal range of motion CVS: normal rate and rhythm Resp: b/l decreased breath sounds Abdomen: Soft, ND/NT, +BS Extremities: No c/c/e Neuro: face symmetric, strength grossly equal, no focal deficit Skin: warm and dry, no rashes/lesions/errythema MSK: normal ROM, no joint swelling/erythema Results & Data Results & Data ([facility]) Vital Signs (Past 12 Hours) Vital Signs Temp Pulse Pulse Resp BP BP Pulse Ox 08/15/20 11:50 36.6 C 80 16 139/76 95 08/15/20 07:43 36.8 C 74 16 127/76 94 08/15/20 03:14 37.3 C 88 18 124/72 92 08/15/20 00:29 80
[2020-08-15] MEDS: FUROSEMIDE 60 MG in SYRINGE 0 ML IV SCH (17:01)
--- NOTE | 2020-08-15 17:38 | Cardiology Progress Note ---
Date of Service August 15, 2020 Assessment & Plan (1) CKD (chronic kidney disease): (2) ROSE (dyspnea on exertion): (3) Diastolic dysfunction: Continue IV diuretics, torsemide 60 mg twice daily, increased by nephrology from previous dose of 40 mg twice daily. Blood pressure stable. Continue subcu heparin for DVT prophylaxis. Admission and Anticipated Discharge Date Admission Date: August 12, 2020 Subjective Patient seen in follow-up of chief complaint of shortness of breath. He notes subjective wheezing earlier today, no wheezing on my exam personally. Physical Exam Physical Exam: Temp Pulse Resp BP Pulse Ox 36.6 C 79 16 139/76 95 08/15/20 11:50 08/15/20 14:00 08/15/20 11:50 08/15/20 11:50 08/15/20 11:50 Constitutional: WD/WN, vitals as above Respiratory: normal respiratory effort, lungs clear to auscultation Gastrointestinal (Abdomen): normal bowel sounds, soft, nontender, no hepatosplenomegaly Neurologic: PERRL, EOMI, accommodation nl, no face palsy, no dysarthria Results & Data ([facility]) Vital Signs (Past 12 Hours) Vital Signs Temp Pulse Pulse Resp BP BP Pulse Ox 08/15/20 14:00 79 08/15/20 11:50 36.6 C 80 16 139/76 95 08/15/20 07:43 36.8 C 74 16 127/76 94 Laboratory Results Cardiac Enzymes 08/15/20 Range/Units 07:42 AST 51 H (15-37) U/L CBC 08/15/20 Range/Units 07:42 WBC 6.25 (4.8-10.8) K/uL RBC 3.90 L (4.7-6.1) M/uL Hgb 12.0 L (14.0-18.0) g/dL Hct 32.7 L (42-52) % Plt Count 271 (130-400) K/uL Neut # (Auto) 3.98 (1.4-6.5) K/uL Lymph # (Auto) 1.26 (1.2-3.4) K/uL [place] # (Auto) 0.77 H (0.11-0.59) K/uL Eos # (Auto) 0.20 (0-0.5) K/uL Baso # (Auto) 0.02 (0-0.2) K/uL Comprehensive Metabolic Panel 08/15/20 Range/Units 07:42 Sodium 128 L (136-145) mmol/L Potassium 3.6 (3.5-5.1) mmol/L Chloride 93 L (98-107) mmol/L Carbon Dioxide 23 (21-32) mmol/L BUN 45 H (7-18) mg/dl Creatinine 3.08 H (0.6-1.4) mg/dl Glucose 149 H (70-99) mg/dl Calcium 8.3 L (8.5-10.1) mg/dl AST 51 H (15-37) U/L ALT 41 (12-78) U/L Alkaline Phosphatase 85 (45-117) U/L Total Protein 7.3 (6.4-8.2) gm/dl Albumin 3.4 (3.4-5.0) gm/dl Intake and Output 08/15/20 08/15/20 08/15/20 06:59 14:59 22:59 Intake Total 240 / 240 Output Total 825 / 1950 600 / 600 Balance -825 / -1340 -360 / -360 Intake: Oral 240 / 240 Output: Urine 825 / 1950 600 / 600 Other: Other Intake Source Sips Weight 98.1 kg Weight Measurement Method Standing Scale (1) CKD (chronic kidney disease) Chronic kidney disease stage: unspecified stage Qualified Code(s): N18.9 - Chronic kidney disease, unspecified
[2020-08-15] MEDS: LORazepam 0.5 MG TAB PO PRN (19:40)
[2020-08-15] MEDS: TERAZOSIN HCL 1 MG CAP PO SCH (20:58)
[2020-08-15] MEDS: POTASSIUM CHLORIDE CRTAB 20 MEQ TABCR PO SCH (20:59)
[2020-08-16] MEDS: LEVOTHYROXINE SODIUM 150 MCG TABLET PO SCH (05:20)
[2020-08-16] MEDS: HEPARIN SOD 5,000 UNIT/0.5 ML VIAL SQ SCH ×3 (05:20→21:02)
[2020-08-16] MEDS: FUROSEMIDE 60 MG in SYRINGE 0 ML IV SCH (09:08)
[2020-08-16] MEDS: INSULIN GLARGINE SOLOSTAR 100 UNITS/ML 3 ML PEN SC SCH ×2 (09:08→21:00)
[2020-08-16] MEDS: INSULIN ASPART 100 UNITS/ML 3 ML PEN SC SCH ×4 (09:09→21:01)
[2020-08-16] MEDS: ASPIRIN 81 MG ECTAB PO SCH (09:10)
[2020-08-16] MEDS: carvediloL 6.25 MG TAB PO SCH ×2 (09:10→21:00)
[2020-08-16] MEDS: amLODIPine BESYLATE 5 MG TAB PO SCH ×2 (09:11→21:02)
[2020-08-16] MEDS: DOXYCYCLINE HYCLATE 100 MG CAP PO SCH ×2 (09:11→21:00)
[2020-08-16] MEDS: MULTIVITAMIN TAB PO SCH (09:11)
[2020-08-16] MEDS: allopurinoL 100 MG TAB PO SCH (09:12)
[2020-08-16] MEDS: CHOLECALCIFEROL 1,000 UNITS 25 MCG TAB PO SCH (09:12)
[2020-08-16] MEDS: POTASSIUM CHLORIDE CRTAB 20 MEQ TABCR PO SCH ×2 (09:14→21:00)
--- NOTE | 2020-08-16 09:43 | Nephrology Progress Note ---
Date of Service August 16, 2020 Assessment & Plan Admission and Anticipated Discharge Date Admission Date: August 12, 2020 Subjective Still SOB but less. Labs are about stable but pending today PHYSICAL EXAMINATION: GENERAL: Elderly white male who is somewhat obese. He does have significant wheezing and some respiratory distress at resting position. HEENT: Mucous membranes moist. NECK: Supple. Could not assess JVD. CHEST: Bilateral wheezing. CARDIOVASCULAR: S1 and S2 regular. Soft systolic murmur heard. ABDOMEN: Soft, nontender. EXTREMITIES: 1+ edema. LABORATORY TESTS: labs pending today ASSESSMENT AND PLAN: A 80-year-old male admitted with shortness of breath. He has extensive cardiac as well as pulmonary as well as chronic kidney disease at baseline. I have been consulted for acute renal failure on background chronic kidney disease as well as hyponatremia. 1. Acute renal failure: The acute component of renal failure is very minimal as he has fairly extensive chronic kidney disease even at baseline. Baseline creatinine in the mid to late 2s and his current creatinine is 3, so this is not a big change from his baseline. No further workup is needed for the etiology of renal failure. At this point, I would have to assume the acute renal failure is secondary to hemodynamic impairment related with ongoing acute illness. I would have to assume the shortness of breath is multifactorial from both chronic obstructive pulmonary disease/respiratory tract infection/congestive heart failure. 2. Hyponatremia: Given that the patient has chronic obstructive pulmonary disease, chronic kidney disease as well as congestive heart failure, he is at high risk of hyponatremia. fluid restriction of 1500 mL per day. Rec for today: 1 Conitnue iV Lasix to 60 iv bid to continue. may change after labs today 2 I and O. 3 Daily labs including Mag. 4 Will start torsemide 100 daily for outpt at the time of Discharge. Also needs f/u 5 Creat has been right around 3 since 08/12 so would call this as new baseline Results & Data ([facility]) Vital Signs (Past 12 Hours) Vital Signs Temp Pulse Pulse Resp BP BP Pulse Ox 08/16/20 07:45 36.9 C 57 L 16 125/76 92 08/16/20 03:00 37.1 C 83 20 111/63 93 08/16/20 00:37 73 08/15/20 23:00 37 C 82 20 133/72 99
[2020-08-16 11:05] LABS: BUN Creatinine Ratio 14.3 (10-20); Calcium 8.3 mg/dl (8.5-10.1); Creatinine Clr Calc Pharmacy 19.7 ml/min; Est GFR (African American) 18.9; Est GFR (Non-African American) 16.3
[2020-08-16] MEDS: LORazepam 0.5 MG TAB PO PRN (13:27)
--- NOTE | 2020-08-16 17:16 | Cardiology Progress Note ---
Date of Service August 16, 2020 Assessment & Plan (1) CKD (chronic kidney disease): (2) ROSE (dyspnea on exertion): (3) Diastolic dysfunction: Agree with transition to torsemide 100 mg daily in am. Admission and Anticipated Discharge Date Admission Date: August 12, 2020 Subjective Feels wheezing. SOB improved. SR on telemetry. Physical Exam Physical Exam: Temp Pulse Resp BP Pulse Ox 36.8 C 70 16 148/82 H 92 08/16/20 16:22 08/16/20 16:22 08/16/20 16:22 08/16/20 16:22 08/16/20 16:22 Constitutional: WD/WN, vitals as above Respiratory: normal respiratory effort, lungs clear to auscultation Cardiovascular: RRR, no murmur, no edema Gastrointestinal (Abdomen): normal bowel sounds, soft, nontender, no hepatosplenomegaly Neurologic: PERRL, EOMI, accommodation nl, no face palsy, no dysarthria Results & Data ([facility]) Vital Signs (Past 12 Hours) Vital Signs Temp Pulse Resp BP Pulse Ox 08/16/20 16:22 36.8 C 70 16 148/82 H 92 08/16/20 11:47 36.5 C 67 18 124/73 92 08/16/20 07:45 36.9 C 57 L 16 125/76 92 Laboratory Results Cardiac Enzymes 08/12/20 08/12/20 08/12/20 Range/Units 00:00 05:17 11:18 Sodium 126 L 127 L 126 L (136-145) mmol/L 08/12/20 08/13/20 08/14/20 Range/Units 17:43 06:37 07:47 Sodium 125 L 126 L 124 L (136-145) mmol/L 08/15/20 08/16/20 Range/Units 07:42 10:05 Sodium 128 L 129 L (136-145) mmol/L Comprehensive Metabolic Panel 08/16/20 Range/Units 10:05 Sodium 129 L (136-145) mmol/L Potassium 4.0 (3.5-5.1) mmol/L Chloride 95 L (98-107) mmol/L Carbon Dioxide 25 (21-32) mmol/L BUN 49 H (7-18) mg/dl Creatinine 3.39 H D (0.6-1.4) mg/dl Glucose 209 H (70-99) mg/dl Calcium 8.3 L (8.5-10.1) mg/dl Intake and Output 08/16/20 08/16/20 08/16/20 06:59 14:59 22:59 Intake Total 100 / 580 400 / 400 Output Total 700 / 2350 300 / 300 Balance -600 / -1770 100 / 100 Intake: Oral 100 / 580 400 / 400 Output: Urine 700 / 2350 300 / 300 Other: Weight 98 kg (1) CKD (chronic kidney disease) Chronic kidney disease stage: unspecified stage Qualified Code(s): N18.9 - Chronic kidney disease, unspecified
[2020-08-16] MEDS: TERAZOSIN HCL 1 MG CAP PO SCH (21:00)
--- NOTE | 2020-08-16 21:54 | Hospitalist Progress Note ---
Date of Service August 16, 2020 Assessment & Plan (1) Pneumonia: ASSESSMENT AND PLAN: This is a 80-year-old male who presents with shortness of breath. 1. Shortness of breath:Acute on chronic diastolic chf. Improved. Stopped iv lasix 60mg bid today by nephrology. Started on torsemide 100mg po daily starting am. 3. Hyponatremia: !29 today.Improving Nepgrology following and appreciate inputs., continue fluid restriction 1500 mL/day. 4. Acute kidney injury on chronic kidney disease stage III. Baseline creatinine around 2-2.4 as per creatinine in 2019. Cr 3.3 today. Nephro following. Will follow labs in am. 5. Diabetes. Holding his glipizide. Continue Lantus insulin sliding sc eben.Will monitor. 6. History of hypertension, labile hypertension, on Coreg, losartan, terazosin. Epic did not have amlodipine but the patient says he is taking amlodipine half tablet b.i.d. 2.5 mg p.o. b.i.d.,; Will monitor 7. Hypothyroidism. On Synthroid. 8. Anxiety. Continue his Ativan p.r.n. 9. Electrolyte abnormality. Will continue his home potassium and magnesium supplement for now and follow the labs. 10. History of gout. Continue allopurinol. 11. History of prostate cancer status post cryotherapy. 12. History of thyroid cancer, status post resection. 13. Deep venous thrombosis prophylaxis. Heparin subQ. Admission and Anticipated Discharge Date Admission Date: August 12, 2020 Subjective Patient sitting on the chair. feeling better. Says ambulating in room ok. denies sob. Says sob improved. Micturating lot. Normal bowel movement denies chest pain. No nausea.No abdominal pain. Afebrile. Has some cough. Review of Systems Review of Systems: All systems reviewed & are unremarkable except as noted in Subjective Physical Exam Constitutional: WD/WN, vitals as above well developed, well nourished and cooperative Neck: trachea midline, no thyromegaly normal visual inspection and trachea midline Respiratory: normal respiratory effort, lungs clear to auscultation Auscultation: lungs clear to auscultation bilaterally Cardiovascular: RRR, no murmur, no edema Gastrointestinal (Abdomen): normal bowel sounds, soft, nontender, no hepatosplenomegaly Neurologic: CN's II-XI intact bilaterally and awake Cranial Nerves: EOM intact bilaterally, tongue midline, normal hearing and no nystagmus Results & Data Results & Data ([facility]) Vital Signs (Past 12 Hours) Vital Signs Temp Pulse Resp BP Pulse Ox 08/16/20 19:00 37 C 77 20 148/83 H 93 08/16/20 16:22 36.8 C 70 16 148/82 H 92 08/16/20 11:47 36.5 C 67 18 124/73 92
[2020-08-16 23:07] LABS: Basophils # (auto) 0.03 K/uL (0-0.2); Basophils % (auto) 0.4 %; Eosinophils # (auto) 0.21 K/uL (0-0.5); Eosinophils % (auto) 2.9 %; Hematocrit (blood only) 32.7 % (42-52); Hemoglobin 11.7 g/dL (14.0-18.0); Immature Granulocytes # (auto) 0.01 K/uL (0.00-0.02); Immature Granulocytes % (auto) 0.1 %; Lymphocytes % (auto) 20.9 %; Mean Corpuscular Hemoglobin 30.4 pg (25-34); Mean Corpuscular Hgb Conc 35.8 g/dL (32-36); Mean Corpuscular Volume 84.9 fL (80-100); Mean Platelet Volume 9.4 fL (7.4-10.4); Monocytes # (auto) 1.07 K/uL (0.11-0.59); Monocytes % (auto) 14.9 %; Neutrophils # (auto) 4.37 K/uL (1.4-6.5); Neutrophils % (auto) 60.8 %; Platelet Count 277 K/uL (130-400); RDW Coefficient of Variation 12.8 % (11.5-14.5); RDW Standard Deviation 39.7 fL (36.4-46.3); Red Blood Count 3.85 M/uL (4.7-6.1); White Blood Count 7.19 K/uL (4.8-10.8)
[2020-08-16 23:25] LABS: BUN Creatinine Ratio 15.2 (10-20); Creatinine Clr Calc Pharmacy 18.6 ml/min; Est GFR (African American) 17.6; Est GFR (Non-African American) 15.1; Magnesium 2.1 mg/dl (1.8-2.4)
[2020-08-17] MEDS: HEPARIN SOD 5,000 UNIT/0.5 ML VIAL SQ SCH ×3 (05:25→22:03)
[2020-08-17] MEDS: LEVOTHYROXINE SODIUM 150 MCG TABLET PO SCH (05:26)
[2020-08-17 07:35] LABS: BUN Creatinine Ratio 15.2 (10-20); Calcium 8.6 mg/dl (8.5-10.1); Creatinine Clr Calc Pharmacy 19.6 ml/min; Est GFR (African American) 18.8; Est GFR (Non-African American) 16.2; Potassium 3.8 mmol/L (3.5-5.1)
[2020-08-17] MEDS: allopurinoL 100 MG TAB PO SCH (09:43)
[2020-08-17] MEDS: CHOLECALCIFEROL 1,000 UNITS 25 MCG TAB PO SCH (09:44)
[2020-08-17] MEDS: TORSEMIDE 100 MG TAB PO SCH (09:44)
[2020-08-17] MEDS: DOXYCYCLINE HYCLATE 100 MG CAP PO SCH ×2 (09:44→20:31)
[2020-08-17] MEDS: POTASSIUM CHLORIDE CRTAB 20 MEQ TABCR PO SCH ×2 (09:44→20:25)
[2020-08-17] MEDS: carvediloL 6.25 MG TAB PO SCH ×2 (09:44→20:23)
[2020-08-17] MEDS: amLODIPine BESYLATE 5 MG TAB PO SCH ×2 (09:44→20:27)
[2020-08-17] MEDS: ASPIRIN 81 MG ECTAB PO SCH (09:44)
[2020-08-17] MEDS: MULTIVITAMIN TAB PO SCH (09:45)
[2020-08-17] MEDS: INSULIN GLARGINE SOLOSTAR 100 UNITS/ML 3 ML PEN SC SCH ×2 (09:47→20:25)
[2020-08-17] MEDS: INSULIN ASPART 100 UNITS/ML 3 ML PEN SC SCH ×4 (09:48→20:29)
--- NOTE | 2020-08-17 11:35 | Nephrology Progress Note ---
Date of Service August 17, 2020 Assessment & Plan (1) KYRA (acute kidney injury): Renal functions partially improved, UOP also has been good Lites safe Dyspnea is also better. Continue on the same treatment. Has already been started on 100 of Demadex(he can be discharged on this dose) (2) Hyponatremia: Sodium is improved -Renal with fluid restriction of 1.5 L (3) ROES (dyspnea on exertion): -Multifactorial -Feels better, on room air now saturating around 92% Admission and Anticipated Discharge Date Admission Date: August 12, 2020 Subjective Comfortable ,not in any distress today. UOP improved. Labs from today awaited. Review of Systems Review of Systems: All systems reviewed & are unremarkable except as noted in HPI & below No S OB, trace edema Physical Exam Physical Exam: GENERAL: Elderly white male who is somewhat obese. He does have significant wheezing and some respiratory distress at resting position. HEENT: Mucous membranes moist. NECK: Supple. Could not assess JVD. CHEST: Bilateral wheezing. CARDIOVASCULAR: S1 and S2 regular. Soft systolic murmur heard. ABDOMEN: Soft, nontender. EXTREMITIES:TRACE edema. Results & Data ([facility]) Vital Signs (Past 12 Hours) Vital Signs Temp Pulse Pulse Resp BP BP Pulse Ox 08/17/20 11:06 36.9 C 69 18 128/74 92 08/17/20 07:12 37 C 56 L 20 125/81 94 08/17/20 04:00 37 C 82 20 103/62 95 08/17/20 01:03 80 Laboratory Results 08/16/20 22:57 08/17/20 06:43
--- NOTE | 2020-08-17 17:04 | Hospitalist Progress Note ---
Date of Service August 17, 2020 Assessment & Plan (1) Pneumonia: Acute on chronic diastolic heart failure Pulmonary HTN ECHO: Mild concentric LVH. Septal motion is consistent with conduction abnormality. EF 50-55%. Moderate pulmonary hypertension. Grade 1 diastolic dysfunction. IV diuretics transition to torsemide 100 mg daily Monitor I's and O's, daily weight, electrolytes, renal function Appreciate cardiology input Hyponatremia Sodium levels improved to 132 Continue fluid restriction Monitor Appreciate nephrology input KYRA on CKD III Baseline Cr ~ Mid 2s Cr:3.4 Appreciate nephrology input Avoid nephrotoxic agents as able Continue to hold losartan DM II HbA1c 8.6 Hold p.o. agents Continue insulin therapy while hospitalized Monitor BGs Hypertension Continue amlodipine, Coreg Also on Terazosin Losartan on hold due to KYRA Hypothyroidism Continue levothyroxine Mood disorder Ativan as needed Hypokalemia Continue potassium supplements Gout On Allopurinol H/O Prostate H/O Thyroid cancer S/P Surgery DVT Px: Heparin SQ Code Status Full code Disposition PT OT prior to discharge Admission and Anticipated Discharge Date Admission Date: August 12, 2020 Subjective Patient is seen and examined at bedside Sitting in chair comfortably during my encounter Decreased dyspnea today Had 1 loose bowel movement yesterday Leg swelling continues to improve Denies chest pain, dizziness, nausea, abdominal pain Offers no other complaints Review of Systems Review of Systems: All systems reviewed & are unremarkable except as noted in HPI & below Physical Exam Physical Exam: Physical Exam: Vitals signs as noted above General Appearance:Moderately built and nourished, no apparent distress Head: normocephalic, Atraumatic Eyes: normal inspection, EOMI Neck: supple, Trachea midline Respiratory/Chest: Normal breath sounds, CTA, No accessory muscle use Cardiovascular: S1, S2, + murmur Abdomen/GI:Soft, Non tender, Bowel sounds present Extremities/Musculoskeletal:normal inspection, Trace LE Edema Neurologic/Psych:AAOX3, grossly no focal neurological deficits Skin: normal color, warm Results & Data Results & Data ([facility]) Vital Signs (Past 12 Hours) Vital Signs Temp Pulse Pulse Resp BP Pulse Ox 08/17/20 15:52 67 08/17/20 14:54 36.8 C 66 18 135/88 93 08/17/20 11:06 36.9 C 69 18 128/74 92 08/17/20 10:00 89 08/17/20 07:12 37 C 56 L 20 125/81 94 Laboratory Results Short CBC 08/16/20 Range/Units 22:57 WBC 7.19 (4.8-10.8) K/uL Hgb 11.7 L (14.0-18.0) g/dL Hct 32.7 L (42-52) % Plt Count 277 (130-400) K/uL BMP 08/16/20 08/17/20 22:57 06:43 Sodium 130 L 132 L Potassium 4.0 3.8 Chloride 97 L 99 Carbon Dioxide 24 22 BUN 55 H 52 H Creatinine 3.60 H 3.40 H Glucose 169 H 152 H Calcium 8.0 L 8.6
[2020-08-17] MEDS: LORazepam 0.5 MG TAB PO PRN (18:44)
[2020-08-17] MEDS: TERAZOSIN HCL 1 MG CAP PO SCH (20:24)
[2020-08-18] MEDS: HEPARIN SOD 5,000 UNIT/0.5 ML VIAL SQ SCH ×3 (05:33→21:13)
[2020-08-18] MEDS: LEVOTHYROXINE SODIUM 150 MCG TABLET PO SCH (05:33)
[2020-08-18 07:22] LABS: Hematocrit (blood only) 31.3 % (42-52); Hemoglobin 11.4 g/dL (14.0-18.0); Mean Corpuscular Hemoglobin 31.2 pg (25-34); Mean Corpuscular Hgb Conc 36.4 g/dL (32-36); Mean Corpuscular Volume 85.8 fL (80-100); Mean Platelet Volume 9.5 fL (7.4-10.4); Platelet Count 294 K/uL (130-400); RDW Standard Deviation 40.4 fL (36.4-46.3); Red Blood Count 3.65 M/uL (4.7-6.1)
[2020-08-18 07:48] LABS: BUN Creatinine Ratio 16.3 (10-20); Calcium 8.7 mg/dl (8.5-10.1); Creatinine Clr Calc Pharmacy 18.1 ml/min; Est GFR (African American) 17.4; Magnesium 2.3 mg/dl (1.8-2.4)
[2020-08-18] MEDS: MULTIVITAMIN TAB PO SCH (09:14)
[2020-08-18] MEDS: DOXYCYCLINE HYCLATE 100 MG CAP PO SCH ×2 (09:14→21:13)
[2020-08-18] MEDS: allopurinoL 100 MG TAB PO SCH (09:14)
[2020-08-18] MEDS: TORSEMIDE 100 MG TAB PO SCH (09:14)
[2020-08-18] MEDS: CHOLECALCIFEROL 1,000 UNITS 25 MCG TAB PO SCH (09:14)
[2020-08-18] MEDS: ASPIRIN 81 MG ECTAB PO SCH (09:14)
[2020-08-18] MEDS: amLODIPine BESYLATE 5 MG TAB PO SCH ×2 (09:14→21:11)
[2020-08-18] MEDS: INSULIN ASPART 100 UNITS/ML 3 ML PEN SC SCH ×4 (09:15→21:15)
[2020-08-18] MEDS: POTASSIUM CHLORIDE CRTAB 20 MEQ TABCR PO SCH ×2 (09:15→21:11)
[2020-08-18] MEDS: carvediloL 6.25 MG TAB PO SCH ×2 (09:15→21:13)
[2020-08-18] MEDS: INSULIN GLARGINE SOLOSTAR 100 UNITS/ML 3 ML PEN SC SCH ×2 (09:15→21:14)
--- NOTE | 2020-08-18 11:27 | Nephrology Progress Note ---
Date of Service August 18, 2020 Assessment & Plan (1) KYRA (acute kidney injury): Renal functions has somewhat declined after the start of Demadex,, UOP 2 L Lytes safe Dyspnea is also better. Would decrease his Demadex to 50 if his functions continue to decline tomorrow. (2) Hyponatremia: Sodium is improved -Continue with fluid restriction of 1.5 L (3) ROSE (dyspnea on exertion): -Multifactorial -Feels better, on room air now saturating around 92%-94 Admission and Anticipated Discharge Date Admission Date: August 12, 2020 Subjective Comfortable with no complaints today, No Respiratory distress Passing urine Review of Systems Review of Systems: No SOB, trace edema Physical Exam Physical Exam: GENERAL: Elderly white male who is somewhat obese. He does have significant wheezing and some respiratory distress at resting position. HEENT: Mucous membranes moist. NECK: Supple. Could not assess JVD. CHEST: Bilateral wheezing. CARDIOVASCULAR: S1 and S2 regular. Soft systolic murmur heard. ABDOMEN: Soft, nontender. EXTREMITIES:TRACE edema. Results & Data ([facility]) Vital Signs (Past 12 Hours) Vital Signs Temp Pulse Pulse Resp BP BP Pulse Ox 08/18/20 11:05 37.0 C 70 18 117/75 94 08/18/20 08:00 74 08/18/20 07:07 36.8 C 63 20 112/71 96 08/18/20 04:00 37 C 78 20 149/76 H 92 08/17/20 23:28 71 Laboratory Results 08/18/20 07:05 08/18/20 07:05
[2020-08-18] MEDS: LORazepam 0.5 MG TAB PO PRN (12:15)
--- NOTE | 2020-08-18 18:26 | Hospitalist Progress Note ---
Date of Service August 18, 2020 Assessment & Plan (1) Pneumonia: (2) Diastolic dysfunction: Acute on chronic diastolic heart failure Pulmonary HTN ECHO: Mild concentric LVH. Septal motion is consistent with conduction abnormality. EF 50-55%. Moderate pulmonary hypertension. Grade 1 diastolic dysfunction. IV diuretics transition to torsemide 100 mg daily Monitor I's and O's, daily weight, electrolytes, renal function Appreciate cardiology input May need to adjust diuretic dose based on renal function Continue fluid restriction Hyponatremia Sodium levels improved to 132>134 Continue fluid restriction Monitor Appreciate nephrology input KYRA on CKD III Baseline Cr ~ Mid 2s Cr:3.4>3.6 Appreciate nephrology input Avoid nephrotoxic agents as able Continue to hold losartan DM II HbA1c 8.6 Hold p.o. agents Continue insulin therapy while hospitalized Monitor BGs Hypertension Continue amlodipine, Coreg Also on Terazosin Losartan on hold due to KYRA Hypothyroidism Continue levothyroxine Mood disorder Ativan as needed Hypokalemia Continue potassium supplements Gout On Allopurinol H/O Prostate H/O Thyroid cancer S/P Surgery DVT Px: Heparin SQ Code Status Full code Disposition PT OT prior to discharge Admission and Anticipated Discharge Date Admission Date: August 12, 2020 Subjective Patient is seen and examined at bedside No new complaints Dyspnea, Leg swelling continues to improve Denies chest pain, dizziness, nausea, abdominal pain Cr slightly worse today Review of Systems Review of Systems: All systems reviewed & are unremarkable except as noted in HPI & below Physical Exam Physical Exam: Physical Exam: Vitals signs as noted above General Appearance:Moderately built and nourished, no apparent distress Head: normocephalic, Atraumatic Eyes: normal inspection, EOMI Neck: supple, Trachea midline Respiratory/Chest: Normal breath sounds, CTA, No accessory muscle use Cardiovascular: S1, S2, + murmur Abdomen/GI:Soft, Non tender, Bowel sounds present Extremities/Musculoskeletal:normal inspection, Trace LE Edema Neurologic/Psych:AAOX3, grossly no focal neurological deficits Skin: normal color, warm Results & Data Results & Data ([facility]) Vital Signs (Past 12 Hours) Vital Signs Temp Pulse Pulse Resp BP Pulse Ox 08/18/20 16:00 69 08/18/20 15:17 36.9 C 72 18 122/82 94 08/18/20 11:05 37.0 C 70 18 117/75 94 08/18/20 08:00 74 08/18/20 07:07 36.8 C 63 20 112/71 96 Laboratory Results Short CBC 08/18/20 Range/Units 07:05 WBC 6.90 (4.8-10.8) K/uL Hgb 11.4 L (14.0-18.0) g/dL Hct 31.3 L (42-52) % Plt Count 294 (130-400) K/uL BMP 08/18/20 07:05 Sodium 134 L Potassium 4.0 Chloride 102 Carbon Dioxide 24 BUN 59 H Creatinine 3.62 H Glucose 151 H Calcium 8.7
[2020-08-18] MEDS: TERAZOSIN HCL 1 MG CAP PO SCH (21:12)
[2020-08-19] MEDS: HEPARIN SOD 5,000 UNIT/0.5 ML VIAL SQ SCH ×2 (06:08→12:55)
[2020-08-19] MEDS: LEVOTHYROXINE SODIUM 150 MCG TABLET PO SCH (06:08)
[2020-08-19] MEDS: amLODIPine BESYLATE 5 MG TAB PO SCH (08:12)
[2020-08-19] MEDS: CHOLECALCIFEROL 1,000 UNITS 25 MCG TAB PO SCH (08:12)
[2020-08-19] MEDS: POTASSIUM CHLORIDE CRTAB 20 MEQ TABCR PO SCH (08:13)
[2020-08-19] MEDS: MULTIVITAMIN TAB PO SCH (08:13)
[2020-08-19] MEDS: carvediloL 6.25 MG TAB PO SCH (08:13)
[2020-08-19] MEDS: allopurinoL 100 MG TAB PO SCH (08:13)
[2020-08-19] MEDS: DOXYCYCLINE HYCLATE 100 MG CAP PO SCH (08:13)
[2020-08-19] MEDS: ASPIRIN 81 MG ECTAB PO SCH (08:13)
[2020-08-19] MEDS: INSULIN ASPART 100 UNITS/ML 3 ML PEN SC SCH ×3 (08:14→17:44)
[2020-08-19] MEDS: TORSEMIDE 100 MG TAB PO SCH (08:14)
[2020-08-19] MEDS: INSULIN GLARGINE SOLOSTAR 100 UNITS/ML 3 ML PEN SC SCH (08:15)
[2020-08-19 08:26] LABS: BUN Creatinine Ratio 16.8 (10-20); Calcium 9.5 mg/dl (8.5-10.1); Creatinine Clr Calc Pharmacy 17.4 ml/min; Est GFR (African American) 16.7; Est GFR (Non-African American) 14.4
[2020-08-19] MEDS: LORazepam 0.5 MG TAB PO PRN (12:54)
--- NOTE | 2020-08-19 15:06 | Nephrology Progress Note ---
Date of Service August 19, 2020 Assessment & Plan (1) Acute renal failure superimposed on stage 4 chronic kidney disease: Renal function has somewhat declined after the start of Demadex. chemistries acceptable; hyponatremia resolved Dyspnea is also better. todya is first standing wt this admission > 93.1 -will lower demadex to 50 mg daily d/c recommendations (d/w Dr Valente): -recommend 50 mg demadex daily at d/c w/ second 50 mg dose at least 4h after first dose prn up to 3 days running for worsening sob -daily standing wts and continued FR 1.5L /day and <2 gm daily Na diet -keep 08/27/20 appt w/ Dr Diaz -NO NSAIDS more than 81 mg daily ASA -continue to hold cozaar -lower K supplement to 20 mEq daily; take extra K dose if he takes extra torsemide dose Present on Admission?: No (2) ROSE (dyspnea on exertion): -Multifactorial -Feels better, on room air now saturating around 92%-94 -cont to optimize diuresis; also per primary service plm HTN and copd mgt Present on Admission?: Yes Admission and Anticipated Discharge Date Admission Date: August 12, 2020 Subjective seen on rounds at 1345 > no c/o except fluid limit dries mouth; wondering about FR and d/c home. Review of Systems Review of Systems: All systems reviewed & are unremarkable except as noted in Subjective Physical Exam Constitutional: well developed and well nourished sitting up in chair on RA Eyes: EOM intact bilaterally ENMT: Ears: no external ear abnormality Nose: no external nose abnormality Mouth: + dry oral mucous membranes Neck: no nuchal rigidity Respiratory: normal respiratory effort Auscultation: + diminished lung sounds (extremely) and + crackles (fine L>R) increased AP diameter Cardiovascular: Rate/Rhythm: regular rate and regular rhythm Extremities: + edema (4+ pedal L, 2+ pedal R in ANTONIETA R) Gastrointestinal (Abdomen): Inspection/Auscultation: normal bowel sounds Percussion/Palpation: abdomen soft; abdomen nontender Musculoskeletal: no cyanosis or clubbing, extremities motor strength 5/5 Extremities: strength 5/5 throughout Skin: no rashes, warm and dry Neurologic: castro, fluent speech, no tremor Psychiatric: A+Ox3, euthymic affect Genitourinary: no garcia Results & Data ([facility]) Vital Signs (Past 12 Hours) Vital Signs Temp Pulse Pulse Resp BP Pulse Ox 08/19/20 11:48 37.0 C 58 L 16 132/83 96 08/19/20 07:22 70 08/19/20 07:00 37 C 69 20 114/74 95 Laboratory Results 08/18/20 07:05 08/19/20 07:26 (1) Acute renal failure superimposed on stage 4 chronic kidney disease Acute renal failure type: unspecified Qualified Code(s): N17.9 - Acute kidney failure, unspecified; N18.4 - Chronic kidney disease, stage 4 (severe)
--- NOTE | 2020-08-19 15:42 | Hospitalist Progress Note ---
Date of Service August 19, 2020 Assessment & Plan (1) Pneumonia: Acute on chronic diastolic heart failure Pulmonary HTN ECHO: Mild concentric LVH. Septal motion is consistent with conduction abnormality. EF 50-55%. Moderate pulmonary hypertension. Grade 1 diastolic dysfunction. IV diuretics transition to torsemide Monitor I's and O's, daily weight, electrolytes, renal function Appreciate cardiology input Plan to discharge on Torsemide 50mg daily Needs follow up with Nephrology and Cardiology upon discharge Hyponatremia Sodium levels improved to 134 Continue fluid restriction--1.5 L/day Monitor Appreciate nephrology input KYRA on CKD III Baseline Cr ~ Mid 2s Cr:3.4>3.6>3.75 Appreciate nephrology input Avoid nephrotoxic agents as able losartan discontinued Likely will need dialysis eventually DM II HbA1c 8.6 Hold p.o. agents Continue insulin therapy while hospitalized Monitor BGs Hypertension Continue amlodipine, Coreg Also on Terazosin Hypothyroidism Continue levothyroxine Mood disorder Ativan as needed Hypokalemia Continue potassium supplements Gout On Allopurinol H/O Prostate H/O Thyroid cancer S/P Surgery DVT Px: Heparin SQ Code Status Full code Disposition Plan to discharge home today (2) Diastolic dysfunction: Acute on chronic diastolic heart failure Pulmonary HTN ECHO: Mild concentric LVH. Septal motion is consistent with conduction abnormality. EF 50-55%. Moderate pulmonary hypertension. Grade 1 diastolic dysfunction. IV diuretics transition to torsemide 100 mg daily Monitor I's and O's, daily weight, electrolytes, renal function Appreciate cardiology input May need to adjust diuretic dose based on renal function Continue fluid restriction Hyponatremia Sodium levels improved to 132>134 Continue fluid restriction Monitor Appreciate nephrology input KYRA on CKD III Baseline Cr ~ Mid 2s Cr:3.4>3.6 Appreciate nephrology input Avoid nephrotoxic agents as able Continue to hold losartan DM II HbA1c 8.6 Hold p.o. agents Continue insulin therapy while hospitalized Monitor BGs Hypertension Continue amlodipine, Coreg Also on Terazosin Losartan on hold due to KYRA Hypothyroidism Continue levothyroxine Mood disorder Ativan as needed Hypokalemia Continue potassium supplements Gout On Allopurinol H/O Prostate H/O Thyroid cancer S/P Surgery DVT Px: Heparin SQ Code Status Full code Disposition PT OT prior to discharge Admission and Anticipated Discharge Date Admission Date: August 12, 2020 Subjective Patient is seen and examined at bedside Symptomatically feels better Denies Dyspnea Leg swelling improved Denies chest pain, dizziness, nausea, abdominal pain Discussed with Nephrology today Review of Systems Review of Systems: All systems reviewed & are unremarkable except as noted in HPI & below Physical Exam Physical Exam: Physical Exam: Vitals signs as noted above General Appearance:Moderately built and nourished, no apparent distress Head: normocephalic, Atraumatic Eyes: normal inspection, EOMI Neck: supple, Trachea midline Respiratory/Chest: Normal breath sounds, CTA, No accessory muscle use Cardiovascular: S1, S2, + murmur Abdomen/GI:Soft, Non tender, Bowel sounds present Extremities/Musculoskeletal:normal inspection, Trace LE Edema Neurologic/Psych:AAOX3, grossly no focal neurological deficits Skin: normal color, warm Results & Data Results & Data ([facility]) Vital Signs (Past 12 Hours) Vital Signs Temp Pulse Pulse Resp BP Pulse Ox 08/19/20 15:29 36.9 C 74 18 119/74 94 08/19/20 11:48 37.0 C 58 L 16 132/83 96 08/19/20 07:22 70 08/19/20 07:00 37 C 69 20 114/74 95 Laboratory Results [facility] 08/19/20 07:26 Sodium 134 L Potassium 4.0 Chloride 100 Carbon Dioxide 25 BUN 63 H Creatinine 3.75 H Glucose 158 H Calcium 9.5
--- NOTE | 2020-08-19 16:08 | Discharge Summary ---
Date of Service August 19, 2020 Admission HPI Per Admitting Provider CHIEF COMPLAINT: Shortness of breath. HISTORY OF PRESENT ILLNESS: This 80-year-old male with past medical history significant for type 2 diabetes, hypothyroidism, hyperlipidemia, chronic kidney disease stage III, history of left ventricular hypertrophy, hypertension, left bundle branch block, gout arthropathy, renal osteodystrophy, anxiety disorder, panic disorder, history of thyroid cancer, history of prostate cancer, who lives at home with his , comes because of shortness of breath. Shortness of breath started yesterday and also he is having poor appetite, not eating and drinking for the last couple of days and urine output is decreasing and was somewhat constipated. He says he had hemorrhoids and gets some blood on wipes. Currently resting comfortably and saturating fine on room air and labs showed sodium of 126, creatinine of 2.8. SARS-CoV-2 PCR is negative. Influenza A and B PCR negative, RSV PCR negative. Chest x-ray, no obvious congestion or infiltrate seen. Had lower extremity edema which seems chronic. The patient denies any chest pain. No headache, no blurred vision, no earache. He has chronic runny nose, no sore throat, no loss of sense of smell or taste. No cough, no nausea, no abdominal pain. Ambulates okay. Admission Exam Per Admitting Provider PHYSICAL EXAMINATION: GENERAL: The patient is obese, not in acute distress. VITAL SIGNS: Temperature 37.4, pulse 82, respiratory rate 19, blood pressure 178/125, oxygen 95% on room air. HEENT: Pupils equal, round, reactive to light. Oral mucosa moist. NECK: No JVD, no neck masses. CARDIOVASCULAR: S1, S2 heard, regular rate and rhythm, no murmur, no gallop. RESPIRATORY SYSTEM: Normal AP diameter. No accessory muscle use. No wheezing. Mild bibasilar crackles. ABDOMEN: Soft, bowel sounds present, nontender. No distention. CENTRAL NERVOUS SYSTEM: Cranial nerves II-XII grossly intact, nonfocal. EXTREMITIES: Bilateral lower extremity +2 pedal edema present, no erythema seen. Principal Diagnosis Acute on chronic diastolic heart failure Pulmonary Hypertension Hyponatremia Acute kidney injury Discharge Data Allergies Allergy/AdvReac Type Severity Reaction Status Date / Time clonidine Allergy Unknown allergic Unverified 02/25/18 08:49 to all but 1 brand carvedilol Allergy Hives Verified 08/12/20 01:48 losartan Allergy Unknown Verified 08/12/20 01:48 ANJELICA Inhibitors AdvReac Intermediate INTOLERANCE Verified 02/25/18 08:49 PER MD ORDER allopurinol AdvReac Intermediate severe abd Verified 02/25/18 08:49 pain Beta-Blockers AdvReac Intermediate INTOLERANCE Verified 02/25/18 08:49 (Beta-Adrenergic Bloc PER DR ARELLANO doxazosin AdvReac Intermediate INTOLERANCE Verified 02/25/18 08:[address] ARELLANO Fjqjohi-Hkg-Inq Reductase AdvReac Intermediate INTOLERANCE Verified 02/25/18 08:[address] ARELLANO citalopram AdvReac Unknown Verified 08/12/20 01:48 hydralazine AdvReac diarrhea, Verified 08/12/20 01:48 testicular pain hydrochlorothiazide AdvReac hyponatremi Verified 08/12/20 01:48 a lisinopril AdvReac Cough Verified 08/12/20 01:48 simvastatin [From Zocor] AdvReac Muscle Pain Verified 08/12/20 01:48 sitagliptin [From Januvia] AdvReac restlessnes Verified 08/12/20 01:48 s Consultations 08/12/20 02:45 ED Decision to Admit Stat 08/12/20 08:00 Consult Cardiology Routine Consult Nephrology Routine Procedures Performed ECHO: Mild concentric LVH. Septal motion is consistent with conduction abnormality. EF 50-55%. Moderate pulmonary hypertension. Grade 1 diastolic dysfunction. Ordered Studies 08/12/20 03:38 CT chest diagnostic wo con Urgent 08/12/20 14:00 US venous doppler LE BI Routine Hospital Course (1) Pneumonia: Acute on chronic diastolic heart failure Pulmonary HTN ECHO: Mild concentric LVH. Septal motion is consistent with conduction abnormality. EF 50-55%. Moderate pulmonary hypertension. Grade 1 diastolic dysfunction. IV diuretics transition to torsemide Monitor I's and O's, daily weight, electrolytes, renal function Appreciate cardiology input Plan to discharge on Torsemide 50mg daily Needs follow up with Nephrology and Cardiology upon discharge Hyponatremia Sodium levels improved to 134 Continue fluid restriction--1.5 L/day Monitor Appreciate nephrology input KYRA on CKD III Baseline Cr ~ Mid 2s Cr:3.4>3.6>3.75 Appreciate nephrology input Avoid nephrotoxic agents as able losartan discontinued Likely will need dialysis eventually DM II HbA1c 8.6 Hold p.o. agents Continue insulin therapy while hospitalized Monitor BGs Hypertension Continue amlodipine, Coreg Also on Terazosin Hypothyroidism Continue levothyroxine Mood disorder Ativan as needed Hypokalemia Continue potassium supplements Gout On Allopurinol H/O Prostate H/O Thyroid cancer S/P Surgery DVT Px: Heparin SQ Code Status Full code Disposition Plan to discharge home today (2) Diastolic dysfunction: Acute on chronic diastolic heart failure Pulmonary HTN ECHO: Mild concentric LVH. Septal motion is consistent with conduction abnormality. EF 50-55%. Moderate pulmonary hypertension. Grade 1 diastolic dysfunction. IV diuretics transition to torsemide 100 mg daily Monitor I's and O's, daily weight, electrolytes, renal function Appreciate cardiology input May need to adjust diuretic dose based on renal function Continue fluid restriction Hyponatremia Sodium levels improved to 132>134 Continue fluid restriction Monitor Appreciate nephrology input KYRA on CKD III Baseline Cr ~ Mid 2s Cr:3.4>3.6 Appreciate nephrology input Avoid nephrotoxic agents as able Continue to hold losartan DM II HbA1c 8.6 Hold p.o. agents Continue insulin therapy while hospitalized Monitor BGs Hypertension Continue amlodipine, Coreg Also on Terazosin Losartan on hold due to KYRA Hypothyroidism Continue levothyroxine Mood disorder Ativan as needed Hypokalemia Continue potassium supplements Gout On Allopurinol H/O Prostate H/O Thyroid cancer S/P Surgery DVT Px: Heparin SQ Code Status Full code Disposition PT OT prior to discharge I certify that this patient is under my care and that I, or a physicians photo studio assistant working with me, had a face to-face encounter that meets the home health [id number] encounter requirements with this patient. The encounter with the patient was in whole, or in part, for the following medical condition, which is the primary reason for home health care (list medical condition): I certify that, based on my findings, the following services are medically necessary home health services: My clinical findings support the need for the above services because: Further, I certify that my clinical findings support that this patient is homebound (i.e. absences from home require considerable and taxing effort and are for medical reasons or latter-day services or infrequently or of short duration when for other reasons) because: Certification for Home Health Services: Based on the above findings, I certify that this patient is confined to the home and needs intermittent correction care, physical therapy and/or speech therapy or continues to need occupational therapy. The patient is under my care, and I have initiated the establishment of the plan of care. This patient will be followed by a physician who will periodically review the plan of care. Total Time Total Time Spent Total Time Spent (In Minutes): 44 minutes Discharge Plan Discharge Items Patient Disposition: Home - Home Health Services Reason For Visit: SOB Discharge Diagnosis: Acute on chronic diastolic heart failure Pulmonary Hypertension Hyponatremia Acute kidney injury Activity: Per Instructions section Exercise/Sports: Gradually increase as tolerated Non-emergency contact: Primary Care Provider, Tax Intern and On Line Csr Call non-emergency contact if: you have any medication questions, your symptoms worsen, your pain is concerning for you and you have a fever Follow-up/Referrals: Ray Diaz MD [Surgeon] - (Date & Time 08/27/2020 9:40 AM [facility] Pramod Damian MD [Primary Care Provider] - (Date & Time 08/23/2020 12:00 PM Provider Pramod Damian MD Department [facility] ) Diet: Carb Consistent or DM2, Heart Healthy and Low Sodium (2gm) Fluids: 1500ml (6 cups) Addtl Attending Provider Instructions: Follow-up with your primary care physician Dr. Damian on 08/23/2020 12:00 PM Follow-up with your lodging manager Dr. Diaz on 08/27/2020 9:40 AM Follow-up with your senior manufacturing technician Dr. Guadalupe in 3-4 weeks Take Torsemide 50 mg daily. ---You can take extra Torsemide 50 mg dose at least 4 hours after first dose as needed only for up to 3 days only if you have worsening shortness of breath (Please inform your physician about your requirements) --- You can take an extra Potassium Chloride 20 meq if you take extra torsemide dose as above. Seek immediate medical attention if your symptoms reoccur or worsen Call your Primary Care doctor if any of the following symptoms or problems start or get worse: * Shortness of breath or difficulty breathing * Wake up at night short of breath * Chest pain * Cough * Swelling of your hands, feet, or legs * More fatigued or tired with your normal activity * Palpitations - sudden fast heart beats WEIGHT * Weigh yourself every morning after using the bathroom. * Use the same scale. * Wear the same amount of clothing. * Write your weight down on a chart. * Call your Primary Care doctor if you gain more than 2-3 pounds in 1-2 days. MEDICATIONS * Use this discharge instruction sheet for medication instructions. * Take your medications at the time your doctor ordered. * Do not skip a dose of your medicines. * If you miss a dose of medicine, take it as soon as possible, but DO NOT DOUBLE A DOSE. * Read your medicine information when you get home. * Know all of the side effects of your medicine. If in doubt, ask your pharmacist * Call your Primary Care doctor's office if you have any side effects. * Be sure all of your doctors know what medicine and herbs you take (including cold, flu, and herbal medicine). Take the following with you to your follow-up doctor appointments: * Weight Chart * Medication List * List of questions Do not drink excessive alcohol, beer or wine. Pending Studies at Discharge: No Stand-Alone Forms: My [facility] [place], Smoking Cessation Medications and DC Order Prescriptions: New torsemide 100 mg tablet 50 mg PO QAM Qty: 30 RF: 1 Continued glipizide 10 mg Tablet 10 mg PO BID RF: 0 allopurinol 100 mg Tablet 200 mg PO DAILY RF: 0 aspirin 81 mg Tablet,Delayed Release (Dr/Ec) 81 mg PO DAILY RF: 0 lorazepam 0.5 mg Tablet 1 tab PO TID PRN (Reason: Anxiety) RF: 0 multivitamin Tablet 1 tab PO DAILY RF: 0 carvedilol 6.25 mg tablet 6.25 mg PO BID RF: 0 amlodipine 2.5 mg tablet 2.5 mg PO BID RF: 0 terazosin 1 mg capsule 1 mg PO HS RF: 0 levothyroxine 150 mcg Tablet 150 mcg PO DAILY RF: 0 magnesium 250 mg Tablet 250 mg PO 3XWK RF: 0 albuterol sulfate 90 mcg/actuation Hfa Aerosol Inhaler 2 puff INHALATION Q4 PRN (Reason: Shortness Of Breath Or Wheezing) RF: 0 cholecalciferol (vitamin D3) [Vitamin D3] 25 mcg (1,000 unit) Tablet 75 mcg PO DAILY RF: 0 diclofenac sodium 1 % Gel 2 g TOPICAL TID PRN (Reason: Pain) RF: 0 Changed potassium chloride 10 mEq Tablet Extended Release 20 meq PO DAILY Qty: 60 RF: 0 Discontinued potassium chloride 10 mEq Capsule, Extended Release 10 meq PO 2XWK RF: 0 losartan 100 mg Tablet 50 mg PO BID RF: 0 Discharge Orders: Discharge Order (Routine); Ordered 08/19/20 Ordered By: [place]/Other Patient Handouts: Managing Type 2 Diabetes, 5 Steps for Eating Healthier Admission Data Admit Date/Time: 08/12/20 03:38 Attending Provider: [place] Admit Provider: Michael Briceño Primary Care Provider: Pramod Damian Other Providers: Michael Briceño ; Zeus Guadalupe ; Arleen Hui ; Hugo White Other Interventions: Discharge Summary Assessment (RN) Last Done: 08/19/20 16:24
--- NOTE | 2020-08-28 07:16 | Coding Query ---
CODING QUERY To promote full compliance with coding requirements relating to patient care, provider participation is requested in all cases of wood heel flap rubber uncertainty. Please assist us with the question(s) below: Coding Question(s): Patient admitted with shortness of breath. 08/13 CT chest showed infiltrates, possible pneumonia. Antibiotics started empirically. Progress notes and Discharge Summary mention Pneumonia. Please check below the phrase that applies to the pneumonia. Physician's Response(s): Patient was treated for pneumonia during this Inpatient stay x____ Patient did not have pneumonia Cannot Clinically correlate if patient had pneumonia Other/ Please document: Principal Diagnosis: "that condition established after study, to be chiefly responsible for occasioning the admission of the patient to the hospital for care." Co-Existing Principal Diagnosis: "when two or more diagnoses equally meet the criteria for principal diagnosis as determined by the circumstances of admission, diagnostic work up, and/or therapy provided, and the Alphabetic Index, Tabular List, or another coding guideline does not provide sequencing direction, any one of the diagnoses may be sequenced first." "When the physician has documented what appears to be a current diagnosis in the body of the record, but has not included the diagnosis in the final diagnostic statement, the physician should be asked whether the diagnosis should be added." (Source Coding Clinic 2 QTR90. p3-4) [facility]
== END 2020-08-19 17:46 | disposition home health service (06) | DRG 291 ==
LOC: ED 00:05 → SUATTDRO 03:38 → 2W 03:38

== ENCOUNTER 2022-08-29 14:04 | Inpatient (IN) ==
[2022-08-29] MEDS ORDERED: SODIUM CHLORIDE 0.9% 500 ML IV STA (14:23)
[2022-08-29] MEDS ORDERED: ONDANSETRON INJ 2 MG/ML 2 ML VIAL IV STA (14:23)
[2022-08-29] MEDS ORDERED: fentaNYL citrate PF 100 MCG/2 ML VIAL IV STA (14:23)
--- NOTE | 2022-08-29 14:27 | Emergency Department Note ---
Impression & Plan Acute right flank pain, Elevated lipase ED Provider Note HISTORY OF PRESENT ILLNESS: Patient is a 82-year-old male presenting with right flank pain. Patient reports that this morning he developed acute onset of right flank pain that starts in his right CVA area and radiates around his right lateral flank. Describes the pain as a sharp sensation. He denies ever having pain like this before. Reports some nausea but no vomiting. Denies any fevers. Denies any dysuria or hematuria. He recently had surgery for placement of a peritoneal dialysis catheter. He denies any anterior abdominal pain. ROS: as above PHYSICAL EXAM: Constitutional: Patient appears in no acute distress. HENT: Head: Normocephalic and atraumatic. Eyes: EOMI, PERRL Mouth/Throat: Mucous membranes moist. Neck: Trachea midline. Neck supple. Cardiovascular: RRR, No murmurs, rubs or gallops. Intact distal pulses. Pulmonary/Chest: No respiratory distress. Breath sounds clear and equal bilaterally. No wheezes or rales. Abdominal: BS +. Abdomen soft, no tenderness, rebound or guarding. Peritoneal dialysis catheter in LLQ. Back: No midline spinal tenderness, no paraspinal tenderness, no CVA tenderness. Musculoskeletal: No edema, tenderness or deformity noted. Skin: Warm and dry. No rash, erythema, pallor or cyanosis Psychiatric: Appropriate mood and affect for situation. Neurological: Alert and keenly responsive. CN II-XII grossly intact, moving all extremities equally and fully. MDM: - Vitals signs showed tachycardia. - History obtained via patient. Patient presents with right flank pain. Patient reports development of acute onset of right flank pain earlier this morning. States the pain is in his right upper back and radiates around his right flank. Describes the pain as sharp and persistent. Denies any vomiting but does report some nausea. Denies any fevers. Denies any anterior abdominal pain. Denies any chest pain or shortness of breath. - Chronic conditions affecting care: HTN; DM-2; prostate cancer; thyroid cancer - Differential diagnoses include, but are not limited to: herpes zoster; ureteral stone; UTI; muscle spasm; aortic dissection - Order placed for continuous cardiac monitoring. At this time, monitor showed rate of 101 bpm with atrial fibrillation rhythm, per my interpretation. - External medical records reviewed. - Laboratory workup interpreted by myself showed normal WBC; hyponatremia (Na 128); baseline CKD (Cr 5.84); elevated BUN (139); elevated lipase (396); normal liver function - CT abdomen/pelvis wo contrast showed cardiomegaly with trace pleural effusions. Noted to have a 10 mm lesion in his right kidney which has been seen on previous exams. No obvious ureteral calculi - Patient initially given 1L NS, 4 mg IV zofran and 50 mcg IV fentanyl for symptomatic management. On reassessment, patient reports pain has returned. Given an additional 50 mcg IV fentanyl. - Discussion was had with social services about patient's case and need for admission. - Hospitalist consulted for admission for observation. - Patient admitted to [facility] service for further evaluation and management. ASSESSMENT AND PLAN: Diagnosis: right flank pain; pancreatitis; CKD Plan: admit Past Med/Surg History Medical History (Updated 08/29/22 @ 19:08 by Neda Agudelo MD) Diabetes Hypertension Prostate ca Thyroid cancer Surgical History S/P lumbar fusion Social History Smoking Status: Former smoker Second Hand Exposure: No; Hx Alcohol Use: No Hx Substance Use: No Preferred Language: Trinidadian Communication Ability: Effective City Comptroller Required: No Beliefs That Will Affect Care: None marital status: Current Living Situation: Alone Feels Safe at Home: Yes Assistive Devices: Walker Allergies Allergies Allergy/AdvReac Type Severity Reaction Status Date / Time clonidine Allergy Unknown allergic Unverified 08/29/22 18:51 to all but 1 brand carvedilol Allergy Hives Verified 08/29/22 18:51 losartan Allergy Unknown Verified 08/29/22 18:51 ANJELICA Inhibitors AdvReac Intermediate INTOLERANCE Verified 08/29/22 18:51 PER MD ORDER allopurinol AdvReac Intermediate severe abd Verified 08/29/22 18:51 pain Beta-Blockers AdvReac Intermediate INTOLERANCE Verified 08/29/22 18:51 (Beta-Adrenergic Bloc PER DR ARELLANO doxazosin AdvReac Intermediate INTOLERANCE Verified 08/29/22 18:[address] ARELLANO [id number] Reductase AdvReac Intermediate INTOLERANCE Verified 08/29/22 18:51 Inhibitor PER [Eaotjrz-Ped-Qbz Reductase ADAN Inhibitor] citalopram AdvReac Unknown Verified 08/29/22 18:51 hydralazine AdvReac diarrhea, Verified 08/29/22 18:51 testicular pain hydrochlorothiazide AdvReac hyponatremi Verified 08/29/22 18:51 a lisinopril AdvReac Cough Verified 08/29/22 18:51 simvastatin [From Zocor] AdvReac Muscle Pain Verified 08/29/22 18:51 sitagliptin [From Januvia] AdvReac restlessnes Verified 08/29/22 18:51 s Home Meds Home Medications Medication Instructions Recorded Confirmed allopurinol 100 mg tablet 100 mg PO QAM 02/25/18 08/29/22 aspirin 81 mg tablet,delayed 81 mg PO DAILY 02/25/18 08/12/20 release glipizide 10 mg tablet 10 mg PO BID 02/25/18 08/12/20 lorazepam 0.5 mg tablet 1 tab PO TID PRN Anxiety 02/25/18 08/12/20 amlodipine 2.5 mg tablet 2.5 mg PO BID 08/12/20 08/12/20 carvedilol 6.25 mg tablet 6.25 mg PO BID 08/12/20 08/12/20 cholecalciferol (vitamin D3) 25 75 mcg PO DAILY 08/12/20 08/12/20 mcg (1,000 unit) tablet (Vitamin D3) diclofenac sodium 1 % topical gel 2 g topical TID PRN Pain 08/12/20 08/12/20 levothyroxine 150 mcg tablet 150 mcg PO DAILYBB 08/12/20 08/29/22 magnesium 250 mg tablet 250 mg PO 3XWK 08/12/20 08/12/20 multivitamin 1 tab PO DAILY 08/12/20 08/12/20 terazosin 1 mg capsule 1 mg PO HS 08/12/20 08/12/20 glipizide 2.5 mg tablet, extended 2.5 mg PO QAM 08/29/22 08/29/22 release 24 hr hydroxyzine HCl 10 mg tablet 10 mg PO TID 08/29/22 08/29/22 linagliptin 5 mg tablet (Tradjenta) 5 mg PO QAM 08/29/22 08/29/22 potassium chloride 10 mEq 20 meq PO QAM 08/29/22 08/29/22 tablet,extended release torsemide 100 mg tablet 100 mg PO QAM 08/29/22 08/29/22 Results & Data (ED) Vital Signs Vital Signs - 24 hr 08/29/22 14:15 08/29/22 14:21 08/29/22 15:00 Temperature 36.8 C Temperature Source Oral Pulse Rate 101 H 114 H 114 H Pulse Rate from SpO2 Sensor Respiratory Rate 18 Respiratory Depth Normal Respiratory Pattern Regular Blood Pressure 134/85 139/100 Blood Pressure Mean 101 113 Pulse Oximetry 95 Oxygen Delivery Method Room Air Sepsis Recent Fever Within 48 Hours No Sepsis New/Unexplained Change in Mental Status No Sepsis Action Taken by Nursing No Action Required 08/29/22 17:00 08/29/22 18:00 08/29/22 18:00 Temperature Temperature Source Pulse Rate 83 97 H 98 H Pulse Rate from SpO2 Sensor 91 H Respiratory Rate 20 18 Respiratory Depth Respiratory Pattern Blood Pressure 114/86 136/101 H Blood Pressure Mean 95 112 Pulse Oximetry 96 95 Oxygen Delivery Method Sepsis Recent Fever Within 48 Hours Sepsis New/Unexplained Change in Mental Status Sepsis Action Taken by Nursing Laboratory Data 08/29/22 14:40 08/29/22 14:40 Lab Results 08/29/22 08/29/22 08/29/22 Range/Units 14:40 14:40 14:40 WBC 8.24 (4.8-10.8) K/ul RBC 3.23 L (4.70-6.10) M/uL Hgb 9.9 L (14.0-18.0) g/dl Hct 29.1 L (42.0-52.0) % MCV 90.1 (80.0-100.0) fL MCH 30.7 (25.0-34.0) pg MCHC 34.0 (32.0-36.0) g/dL RDW Std Deviation 45.1 (36.4-46.3) fL RDW Coeff of Pooja 13.7 (11.5-14.5) % Plt Count 337 (130-400) K/uL MPV 10.2 (9.4-12.4) fL Immature Gran % (Auto) 0.5 % Neut % (Auto) 71.1 % Lymph % (Auto) 12.5 % Dickey % (Auto) 11.5 % Eos % (Auto) 3.8 % Baso % (Auto) 0.6 % Neut # (Auto) 5.86 (1.40-6.50) K/uL Lymph # (Auto) 1.03 L (1.2-3.4) K/uL Dickey # (Auto) 0.95 H (0.11-0.59) K/uL Eos # (Auto) 0.31 (0-0.50) K/uL Baso # (Auto) 0.05 (0-0.2) K/uL Immature Gran # (Auto) 0.04 (0.01-0.20) K/uL Sodium 128 L (136-145) mmol/L Potassium 4.4 (3.5-5.1) mmol/L Chloride 88 L (98-107) mmol/L Carbon Dioxide 25 (21-32) mmol/L Anion Gap 15 H (3-11) BUN 139 H (6-23) mg/dl Creatinine 5.84 H* (0.6-1.4) mg/dl Est Cr Clr Drug Dosing 10.5 ml/min Est GFR ( Amer) 9.6 ml/min Est GFR (Non-Af Amer) 8.3 ml/min BUN/Creatinine Ratio 23.8 H (10-20) Glucose 115 H (70-99(Fasting)) mg/dl Lactate 1.4 (0.4-2.0) mmol/L Calcium 9.7 (8.6-10.3) mg/dl Total Bilirubin 0.4 (0.2-1.0) mg/dl AST 23 (13-39) U/L ALT 13 (7-52) U/L Alkaline Phosphatase 69 (34-104) U/L Total Protein 8.0 (6.0-8.3) gm/dl Albumin 3.9 (3.4-5.0) gm/dl Globulin 4.1 H (2.5-4.0) gm/dl Albumin/Globulin Ratio 1.0 (0.9-2) Lipase 396 H (11-82) U/L Urine Color Urine Appearance (Clear) Urine pH (4.5-7.5) Ur Specific [place] (1.000-1.030) Urine Protein (Negative) Urine Glucose (UA) (Negative) Urine Ketones (Negative) Urine Blood (Negative) Urine Nitrite (Negative) Urine Bilirubin (Negative) Urine Urobilinogen (Negative) Ur Leukocyte Esterase (Negative) Urine WBC (Auto) (0-5) /hpf Urine RBC (Auto) (0-4) /hpf U Hyaline Cast (Auto) (0-5) /lpf U Epithel Cells (Auto) (0-5) /lpf Urine Bacteria (Auto) (Negative) SARS-CoV-2, RNA, NAAT (NEGATIVE) 08/29/22 08/29/22 Range/Units 14:40 18:20 WBC (4.8-10.8) K/ul RBC (4.70-6.10) M/uL Hgb (14.0-18.0) g/dl Hct (42.0-52.0) % MCV (80.0-100.0) fL MCH (25.0-34.0) pg MCHC (32.0-36.0) g/dL RDW Std Deviation (36.4-46.3) fL RDW Coeff of Pooja (11.5-14.5) % Plt Count (130-400) K/uL MPV (9.4-12.4) fL Immature Gran % (Auto) % Neut % (Auto) % Lymph % (Auto) % Dickey % (Auto) % Eos % (Auto) % Baso % (Auto) % Neut # (Auto) (1.40-6.50) K/uL Lymph # (Auto) (1.2-3.4) K/uL Dickey # (Auto) (0.11-0.59) K/uL Eos # (Auto) (0-0.50) K/uL Baso # (Auto) (0-0.2) K/uL Immature Gran # (Auto) (0.01-0.20) K/uL Sodium (136-145) mmol/L Potassium (3.5-5.1) mmol/L Chloride (98-107) mmol/L Carbon Dioxide (21-32) mmol/L Anion Gap (3-11) BUN (6-23) mg/dl Creatinine (0.6-1.4) mg/dl Est Cr Clr Drug Dosing ml/min Est GFR ( Amer) ml/min Est GFR (Non-Af Amer) ml/min BUN/Creatinine Ratio (10-20) Glucose (70-99(Fasting)) mg/dl Lactate (0.4-2.0) mmol/L Calcium (8.6-10.3) mg/dl Total Bilirubin (0.2-1.0) mg/dl AST (13-39) U/L ALT (7-52) U/L Alkaline Phosphatase (34-104) U/L Total Protein (6.0-8.3) gm/dl Albumin (3.4-5.0) gm/dl Globulin (2.5-4.0) gm/dl Albumin/Globulin Ratio (0.9-2) Lipase (11-82) U/L Urine Color Yellow Urine Appearance Cloudy A (Clear) Urine pH 6.5 (4.5-7.5) Ur Specific [place] 1.008 (1.000-1.030) Urine Protein 1+ H (Negative) Urine Glucose (UA) Negative (Negative) Urine Ketones Negative (Negative) Urine Blood 1+ H (Negative) Urine Nitrite Negative (Negative) Urine Bilirubin Negative (Negative) Urine Urobilinogen Negative (Negative) Ur Leukocyte Esterase Negative (Negative) Urine WBC (Auto) 1-5 (0-5) /hpf Urine RBC (Auto) 0-4 (0-4) /hpf U Hyaline Cast (Auto) 0 (0-5) /lpf U Epithel Cells (Auto) 0-5 (0-5) /lpf Urine Bacteria (Auto) Negative (Negative) SARS-CoV-2, RNA, NAAT NEGATIVE (NEGATIVE) Administered Medications Discontinued Medications Fentanyl Citrate (Fentanyl Citrate Pf 100 Mcg/2 Ml Vial) 50 mcg IV NOW STA Stop: 08/29/22 14:24 Last Admin: 08/29/22 14:41 Dose: 50 mcg Documented By: MUKESH Fentanyl Citrate (Fentanyl Citrate Pf 100 Mcg/2 Ml Vial) 50 mcg IV NOW ONE Stop: 08/29/22 17:49 Last Admin: 08/29/22 18:08 Dose: 50 mcg Documented By: ALY Sodium Chloride (Nss) 500 mls @ 999 mls/hr IV .Q31M STA Stop: 08/29/22 14:53 Last Infusion: 08/29/22 16:11 Dose: 0 mls/hr Documented By: Admin: 08/29/22 14:41 Dose: 999 mls/hr Documented By: MUKESH Ondansetron HCl (Ondansetron Inj 2 Mg/Ml 2 Ml Vial) 4 mg IV NOW STA Stop: 08/29/22 14:24 Last Admin: 08/29/22 14:41 Dose: 4 mg Documented By: MUKESH Imaging Data Radiologist's Impression: Abdomen/Pelvis CT 08/29/22 14:[address] WITHOUT CONTRAST CT DOSE: 949.56 mGy.cm HISTORY: Acute right-sided flank pain right flank pain TECHNIQUE: Multiaxial CT images of the abdomen and pelvis were performed without contrast. A dose lowering technique was utilized adhering to the principles of ALARA. COMPARISON STUDY: 10/02/2015 FINDINGS: Moderate hemidiaphragmatic elevation. Cardiomegaly with coronary artery calcifications. Trace pleural effusions with bibasilar atelectasis versus scarring. No pneumatosis or pneumoperitoneum. Study is limited secondary to upper extremity positioning. Unremarkable spleen and adrenal glands. Mild cholelithiasis. 2.4 x 2.5 cm cystic lesion of the pancreatic tail with adjacent peripheral coarse calcifications measuring up to 6 mm. The calcifications are also present on prior study, however the cystic lesion is new versus enlarged. Additional cystic lesion of the pancreatic head measuring 1.9 cm. These foci may represent sidebranch IPMN's. Unremarkable liver. Cysts of the bilateral kidneys. A 3.6 cm cyst within the superior pole right kidney demonstrates mild layering milk of calcium. Indeterminate 10 mm lesion with Hounsfield of 36 is noted within the interpolar right kidney. This is new from prior. No renal or ureteral calculi or hydronephrosis. Prostamegaly. Urinary bladder wall thickening with mild distention. Atherosclerosis of the aorta without aneurysm. No lymphadenopathy identified. No bowel obstruction or bowel wall thickening. Colonic diverticulosis. Normal appendix. Tiny fat filled umbilical hernia. A catheter is noted which terminates within the dependent pelvis. Degenerative changes of the spine, pelvis and hips. Posterior interbody mozi and screw fusion hardware L2-S1. No evidence of hardware complication. IMPRESSION: 1. No acute intra-abdominal or intrapelvic abnormality identified. 2. Cardiomegaly with trace pleural effusions and mild bibasilar atelectasis. 3. Indeterminate 10 mm lesion of the interpolar right kidney. Correlation with a nonemergent follow-up renal ultrasound recommended. 4. No urolith or hydronephrosis. 5. Cholelithiasis. 6. Colonic diverticulosis. 7. Additional findings as above. ACT 112: Negative or not required by law. The above report was generated using voice recognition software. It may contain grammatical, syntax or spelling errors. Electronically signed by: Medardo Medrano M.D. 08/29/2022 3:34 PM Discharge Plan Visit Data Chief Complaint: Flank Pain ED Provider: Neda Agudelo Discharge Problem: Acute right flank pain, Elevated lipase Forms Stand Alone Forms: [facility] Prescriptions Prescriptions: No Action glipizide 10 mg Tablet 10 mg PO BID allopurinol 100 mg Tablet 100 mg PO QAM aspirin 81 mg Tablet,Delayed Release (Dr/Ec) 81 mg PO DAILY lorazepam 0.5 mg Tablet 1 tab PO TID PRN (Reason: Anxiety) multivitamin Tablet 1 tab PO DAILY carvedilol 6.25 mg tablet 6.25 mg PO BID amlodipine 2.5 mg tablet 2.5 mg PO BID terazosin 1 mg capsule 1 mg PO HS levothyroxine 150 mcg Tablet 150 mcg PO DAILYBB magnesium 250 mg Tablet 250 mg PO 3XWK cholecalciferol (vitamin D3) [Vitamin D3] 25 mcg (1,000 unit) Tablet 75 mcg PO DAILY diclofenac sodium 1 % Gel 2 g TOPICAL TID PRN (Reason: Pain) Tradjenta 5 mg tablet 5 mg PO QAM hydroxyzine HCl 10 mg tablet 10 mg PO TID potassium chloride 10 mEq tablet extended release 20 meq PO QAM torsemide 100 mg tablet 100 mg PO QAM glipizide 2.5 mg tablet extended release 24hr 2.5 mg PO QAM Referrals Referrals: Pramod Damian MD [Primary Care Provider] -
[2022-08-29 14:59] LABS: Appearance Urine Cloudy (Clear); Bacteria Urine Automated Negative (Negative); Bilirubin Urine Negative (Negative); Blood Urine 1+ (Negative); Cast Urine Automated 0 /lpf (0-5); Color Urine Yellow; Epithelial Cell Urine Auto 0-5 /lpf (0-5); Glucose Urine UA Negative (Negative); Ketones Urine Negative (Negative); Leukocyte Esterase Urine Negative (Negative); Nitrite Urine Negative (Negative); Protein Urine 1+ (Negative); RBC Urine Automated 0-4 /hpf (0-4); Specific Gravity Urine 1.008 (1.000-1.030); Urobilinogen Urine Negative (Negative); pH Urine 6.5 (4.5-7.5)
[2022-08-29 15:15] LABS: Basophils # (auto) 0.05 K/uL (0-0.2); Basophils % (auto) 0.6 %; Eosinophils # (auto) 0.31 K/uL (0-0.50); Eosinophils % (auto) 3.8 %; Hematocrit (blood only) 29.1 % (42.0-52.0); Hemoglobin 9.9 g/dl (14.0-18.0); Immature Granulocytes # (auto) 0.04 K/uL (0.01-0.20); Immature Granulocytes % (auto) 0.5 %; Lymphocytes # (auto) 1.03 K/uL (1.2-3.4); Lymphocytes % (auto) 12.5 %; Mean Corpuscular Hemoglobin 30.7 pg (25.0-34.0); Mean Corpuscular Volume 90.1 fL (80.0-100.0); Mean Platelet Volume 10.2 fL (9.4-12.4); Monocytes # (auto) 0.95 K/uL (0.11-0.59); Monocytes % (auto) 11.5 %; Neutrophils # (auto) 5.86 K/uL (1.40-6.50); Neutrophils % (auto) 71.1 %; Platelet Count 337 K/uL (130-400); RDW Coefficient of Variation 13.7 % (11.5-14.5); RDW Standard Deviation 45.1 fL (36.4-46.3); Red Blood Count 3.23 M/uL (4.70-6.10); White Blood Count 8.24 K/ul (4.8-10.8)
--- NOTE | 2022-08-29 15:35 | CT Scan Report ---
ABDOMEN AND PELVIS CT WITHOUT CONTRAST CT DOSE: 949.56 mGy.cm HISTORY: Acute right-sided flank pain right flank pain TECHNIQUE: Multiaxial CT images of the abdomen and pelvis were performed without contrast. A dose lo wering technique was utilized adhering to the principles of ALARA. COMPARISON STUDY: 10/02/2015 FINDINGS: Moderate hemidiaphragmatic elevation. Cardiomegaly with coronary artery calcifications. Tra ce pleural effusions with bibasilar atelectasis versus scarring. No pneumatosis or pneumoperitoneum. Study is limited secondary to upper extremity positioning. Unremarkable spleen and adrenal glands. Mild cholelithiasis. 2.4 x 2.5 cm cystic lesion of the pancre atic tail with adjacent peripheral coarse calcifications measuring up to 6 mm. The calcifications are also present on prior study, however the cystic lesion is new versus enlarged. Additional cystic les ion of the pancreatic head measuring 1.9 cm. These foci may represent sidebranch IPMN's. Unremarkable liver. Cysts of the bilateral kidneys. A 3.6 cm cyst within the superior pole right kidney demonstra april mild layering milk of calcium. Indeterminate 10 mm lesion with Hounsfield of 36 is noted within t he interpolar right kidney. This is new from prior. No renal or ureteral calculi or hydronephrosis. P rostamegaly. Urinary bladder wall thickening with mild distention. Atherosclerosis of the aorta witho ut aneurysm. No lymphadenopathy identified. No bowel obstruction or bowel wall thickening. Colonic diverticulosis. Normal appendix. Tiny fat fill ed umbilical hernia. A catheter is noted which terminates within the dependent pelvis. Degenerative c hanges of the spine, pelvis and hips. Posterior interbody moiz and screw fusion hardware L2-S1. No jarrod dence of hardware complication. IMPRESSION: 1. No acute intra-abdominal or intrapelvic abnormality identified. 2. Cardiomegaly with trace pleural effusions and mild bibasilar atelectasis. 3. Indeterminate 10 mm lesion of the interpolar right kidney. Correlation with a nonemergent follow-u p renal ultrasound recommended. 4. No urolith or hydronephrosis. 5. Cholelithiasis. 6. Colonic diverticulosis. 7. Additional findings as above. ACT 112: Negative or not required by law. The above report was generated using voice recognition software. It may contain grammatical, syntax o r spelling errors. Electronically signed by: Medardo Medrano M.D. 08/29/2022 3:34 PM
[2022-08-29 15:37] LABS: Albumin Level 3.9 gm/dl (3.4-5.0); Bilirubin,Total 0.4 mg/dl (0.2-1.0); Calcium 9.7 mg/dl (8.6-10.3); Creatinine Clr Calc Pharmacy 10.5 ml/min; Est GFR (African American) 9.6 ml/min; Est GFR (Non-African American) 8.3 ml/min; Globulin 4.1 gm/dl (2.5-4.0); Potassium 4.4 mmol/L (3.5-5.1)
[2022-08-29 15:41] LABS: BUN Creatinine Ratio 23.8 (10-20)
[2022-08-29] MEDS ORDERED: fentaNYL citrate PF 100 MCG/2 ML VIAL IV ONE (17:48)
--- NOTE | 2022-08-29 20:18 | History & Physical Report ---
Date of Service August 29, 2022 Assessment & Plan (1) Acute right flank pain: (2) Elevated lipase: (3) Kidney lesion: (4) Cholelithiasis: (5) Pancreatic cyst: Plan: Admit to [facility] Patient presenting from home with reports of acute onset right flank pain with r adiation to the RUQ this morning. In the ED, CT ABD/pelvis unremarkable for acute findings. Pancreatic cyst noted - 2.4 x 2.5 cm cystic lesion of the pancreatic tail (previously 1.9cm x 2cm on CT ABD/pelvis 02/2021), pancreatic head measuring 1.9 cm (previously 2.[address] ABD/pelvis 02/2021) 10 mm right kidney lesion --will obtain ultrasound for follow-up Cholelithiasis noted and mildly elevated lipase -- ?? Mild pancreatitis and/or biliary colic -will obtain RUQ US Conservative management for now, clear liquids with pain control. Consider GI consult. (6) ESRD (end stage renal disease): (7) Peritoneal dialysis catheter in situ: Plan: Recently had a peritoneal dialysis catheter placed, has not started treatment ye t Creatinine at baseline (8) Atrial fibrillation: Plan: Rate controlled on metoprolol, anticoagulated on Eliquis (9) Chronic diastolic CHF (congestive heart failure): Plan: Appears euvolemic, continue torsemide (10) DM type 2 (diabetes mellitus, type 2): Plan: Hgb A1c 7.4 08/2022 Hold oral agents and utilize NovoLog per protocol while hospitalized (11) Hyponatremia: Plan: Na+ 128, chronic, at recent baseline (12) ANGY (iron deficiency anemia): Plan: Receives iron infusions (13) Hypothyroidism: Plan: Continue levothyroxine DVT PROPHYLAXIS On Eliquis Patient was seen in collaboration with Dr. Díaz I spent a total of 75 minutes coordinating, documenting, and providing care for this patient excluding time spent in the performance of separately billed services. This included personally reviewing all current laboratories and imaging studies, medication reconciliation, outpatient chart review, and discussion with specialists. History of Present Illness Chief Complaint: Right flank pain Primary Care Provider: Pramod Damian MD 82-year-old male with PMH DM type II, hypothyroidism, pancreatic cyst, chronic diastolic CHF, atrial fibrillation on Eliquis, HTN, LBBB, ESRD with peritoneal dialysis catheter in place, history of thyroid cancer, history of prostate cancer, and other problems listed below who presents to the ED for evaluation of right flank pain. Patient reports he acutely developed a right flank pain this morning. Patient describes the pain as " deep" and not muscular in nature. Patient reports some radiation of the pain around to the right upper quadrant. Patient denies associated nausea or vomiting. No fevers or chills. Denies chest pain or shortness of breath. No lightheadedness, dizziness, diaphoresis, syncopal events. Denies urinary symptoms. In the ED, CT ABD/pelvis is unremarkable for acute findings. Labs are unremarkable/at patient's baseline. Patient was given IV fentanyl, IV Zofran, IVF. Allergies Allergy/AdvReac Type Severity Reaction Status Date / Time clonidine Allergy Unknown allergic Unverified 08/29/22 18:51 to all but 1 brand carvedilol Allergy Hives Verified 08/29/22 18:51 losartan Allergy Unknown Verified 08/29/22 18:51 ANJELICA Inhibitors AdvReac Intermediate INTOLERANCE Verified 08/29/22 18:51 PER MD ORDER allopurinol AdvReac Intermediate severe abd Verified 08/29/22 18:51 pain Beta-Blockers AdvReac Intermediate INTOLERANCE Verified 08/29/22 18:51 (Beta-Adrenergic Bloc PER DR ARELLANO doxazosin AdvReac Intermediate INTOLERANCE Verified 08/29/22 18:[address] ARELLANO Zuflcll-UIS-GyL Reductase AdvReac Intermediate INTOLERANCE Verified 08/29/22 18:[address] [Axfdbzg-Lvl-Ybi Reductase ADAN Inhibitor] citalopram AdvReac Unknown Verified 08/29/22 18:51 hydralazine AdvReac diarrhea, Verified 08/29/22 18:51 testicular pain hydrochlorothiazide AdvReac hyponatremi Verified 08/29/22 18:51 a lisinopril AdvReac Cough Verified 08/29/22 18:51 simvastatin [From Zocor] AdvReac Muscle Pain Verified 08/29/22 18:51 sitagliptin [From Januvia] AdvReac restlessnes Verified 08/29/22 18:51 s Home Medications Medication Instructions Recorded Confirmed Type allopurinol 100 mg tablet 100 mg PO QAM 02/25/18 08/29/22 History aspirin 81 mg tablet,delayed 81 mg PO DAILY 02/25/18 08/29/22 History release levothyroxine 150 mcg tablet 150 mcg PO DAILYBB 08/12/20 08/29/22 History multivitamin 1 tab PO DAILY 08/12/20 08/29/22 History B-complex with vitamin C 1 tab PO DAILY 08/29/22 08/29/22 History apixaban 2.5 mg tablet (Eliquis) 2.5 mg PO BID 08/29/22 08/29/22 History docusate sodium 100 mg tablet 100 mg PO DAILY 08/29/22 08/29/22 History glipizide 2.5 mg tablet, extended 2.5 mg PO QAM 08/29/22 08/29/22 History release 24 hr hydroxyzine HCl 10 mg tablet 10 mg PO TID PRN Anxiety 08/29/22 08/29/22 History linagliptin 5 mg tablet (Tradjenta) 5 mg PO QAM 08/29/22 08/29/22 History metoprolol tartrate 25 mg tablet 25 mg PO TID 08/29/22 08/29/22 History potassium chloride 20 mEq 40 meq PO DAILY 08/29/22 08/29/22 History tablet,extended release torsemide 100 mg tablet 100 mg PO QAM 08/29/22 08/29/22 History Past Med/Surg History Medical History Atrial fibrillation Chronic diastolic CHF (congestive heart failure) COPD (chronic obstructive pulmonary disease) DM type 2 (diabetes mellitus, type 2) ESRD (end stage renal disease) Gout Hypertension Hypothyroidism ANGY (iron deficiency anemia) LBBB (left bundle branch block) Pancreatic cyst Peritoneal dialysis catheter in situ Prostate ca Pulmonary hypertension Spinal stenosis Thyroid cancer Surgical History S/P lumbar fusion Social History Smoking Status: Former smoker Cigarettes Per Day: 10; Smoking End Date: 1978.; Second Hand Exposure: No; Do You Dip or Chew Tobacco: Yes; Tobacco Cessation Education Requested by Patient: No Hx Alcohol Use: No Hx Substance Use: No Preferred Language: Ethiopian Communication Ability: Effective Superintendent Pier Required: No Beliefs That Will Affect Care: None marital status: Current Living Situation: Spouse Other Information That Helps Us Care for You: No Feels Safe at Home: Yes Safety Concerns: Feels Safe At This Time Assistive Devices: Cane, Denture - Upper, Denture - Lower, Glasses and Walker Review of Systems Review of Systems: ROS per HPI, all other systems reviewed and negative Physical Exam Constitutional: WD/WN, vitals as above Eyes: PERRL, conjunctivae normal, anicteric sclerae ENMT: external ear and nose normal, oropharynx normal Respiratory: normal respiratory effort, lungs clear to auscultation Cardiovascular: Rate/Rhythm: regular rate and + irregularly irregular Vessels: normal peripheral pulses Extremities: + edema (+1 pitting edema noted bilateral ankles) Gastrointestinal (Abdomen): normal bowel sounds, soft, nontender, no hepatosplenomegaly Peritoneal dialysis catheter in place with dressing Musculoskeletal: no cyanosis or clubbing, extremities motor strength 5/5 Skin: no rashes, warm and dry Neurologic: PERRL, EOMI, accommodation nl, no face palsy, no dysarthria Psychiatric: A+Ox3, euthymic affect Results & Data Results & Data Vital Signs (Past 12 Hours) Vital Signs Temp Pulse Resp BP Pulse Ox O2 Del Method 08/29/22 20:00 96 H 12 08/29/22 20:00 113/86 08/29/22 19:30 99 H 21 08/29/22 19:30 120/101 H 08/29/22 19:01 20 08/29/22 19:01 134/109 H 08/29/22 19:00 27 H 08/29/22 18:30 99 H 16 92 08/29/22 18:30 136/98 08/29/22 18:00 98 H 18 136/101 H 95 08/29/22 18:00 97 H 08/29/22 17:00 83 20 114/86 96 08/29/22 15:00 114 H 139/100 08/29/22 14:21 36.8 C 114 H 18 134/85 95 Room Air 08/29/22 14:15 101 H Laboratory Results Short CBC 08/29/22 Range/Units 14:40 WBC 8.24 (4.8-10.8) K/ul Hgb 9.9 L (14.0-18.0) g/dl Hct 29.1 L (42.0-52.0) % Plt Count 337 (130-400) K/uL BMP 08/29/22 14:40 Sodium 128 L Potassium 4.4 Chloride 88 L Carbon Dioxide 25 BUN 139 H Creatinine 5.84 H* Glucose 115 H Calcium 9.7 Liver Function 08/29/22 Range/Units 14:40 Total Bilirubin 0.4 (0.2-1.0) mg/dl AST 23 (13-39) U/L ALT 13 (7-52) U/L Alkaline Phosphatase 69 (34-104) U/L Albumin 3.9 (3.4-5.0) gm/dl Urine 08/29/22 Range/Units 14:40 Urine Color Yellow Urine Appearance Cloudy A (Clear) Urine pH 6.5 (4.5-7.5) Ur Specific [place] 1.008 (1.000-1.030) Urine Protein 1+ H (Negative) Urine Glucose (UA) Negative (Negative) Diagnostic Findings Abdomen/Pelvis CT 08/29/22 14:[address] WITHOUT CONTRAST CT DOSE: 949.56 mGy.cm HISTORY: Acute right-sided flank pain right flank pain TECHNIQUE: Multiaxial CT images of the abdomen and pelvis were performed without contrast. A dose lowering technique was utilized adhering to the principles of ALARA. COMPARISON STUDY: 10/02/2015 FINDINGS: Moderate hemidiaphragmatic elevation. Cardiomegaly with coronary artery calcifications. Trace pleural effusions with bibasilar atelectasis versus scarring. No pneumatosis or pneumoperitoneum. Study is limited secondary to upper extremity positioning. Unremarkable spleen and adrenal glands. Mild cholelithiasis. 2.4 x 2.5 cm cystic lesion of the pancreatic tail with adjacent peripheral coarse calcifications measuring up to 6 mm. The calcifications are also present on prior study, however the cystic lesion is new versus enlarged. Additional cystic lesion of the pancreatic head measuring 1.9 cm. These foci may represent sidebranch IPMN's. Unremarkable liver. Cysts of the bilateral kidneys. A 3.6 cm cyst within the superior pole right kidney demonstrates mild layering milk of calcium. Indeterminate 10 mm lesion with Hounsfield of 36 is noted within the interpolar right kidney. This is new from prior. No renal or ureteral calculi or h ydronephrosis. Prostamegaly. Urinary bladder wall thickening with mild distention. Atherosclerosis of the aorta without aneurysm. No lymphadenopathy identified. No bowel obstruction or bowel wall thickening. Colonic diverticulosis. Normal appendix. Tiny fat filled umbilical hernia. A catheter is noted which terminates within the dependent pelvis. Degenerative changes of the spine, pelvis and hips. Posterior interbody moiz and screw fusion hardware L2-S1. No evidence of hardware complication. IMPRESSION: 1. No acute intra-abdominal or intrapelvic abnormality identified. 2. Cardiomegaly with trace pleural effusions and mild bibasilar atelectasis. 3. Indeterminate 10 mm lesion of the interpolar right kidney. Correlation with a nonemergent follow-up renal ultrasound recommended. 4. No urolith or hydronephrosis. 5. Cholelithiasis. 6. Colonic diverticulosis. 7. Additional findings as above. ACT 112: Negative or not required by law. The above report was generated using voice recognition software. It may contain grammatical, syntax or spelling errors. Electronically signed by: Medardo Medrano M.D. 08/29/2022 3:34 PM Code Status & VTE Plan Code Status Patient is a DNR as per my discussion with him. VTE Prophylaxis Plan VTE Prophylaxis will be ordered: No Supervising Physician Co-Signing Physician Notes Pt seen and examined by myself, Dr. Cherie Díaz MD on the day of service. Care was coordinated with ANA Cochran. Please refer to her note for additional information. 82yo gentleman with PMHx significant for ESRD with recent peritoneal catheter in situ presenting with persistent R sided flank pain. CT abd/pelvis with no definite pathology, notes new lesion in right kidney, no kidney stones noted. Pt resting comfortably during exam. Flank pain not reproducible. Noted surgical incisions on abdomen. Cr in ED 5.84, referral placed to nephrology, has peritoneal catheter in place. Pain control, replete/manage electrolytes as needed.
[2022-08-29] MEDS ORDERED: hydrOXYzine HCl 10 MG TAB PO PRN (20:51)
[2022-08-29] MEDS ORDERED: GLUCAGON FOR INJ 1 MG VIAL SQ PRN (20:51)
[2022-08-29] MEDS ORDERED: ONDANSETRON INJ 2 MG/ML 2 ML VIAL IV PRN (20:51)
[2022-08-29] MEDS ORDERED: GLUCOSE 40% GEL 15 GM TUBE PO PRN (20:51)
[2022-08-29] MEDS ORDERED: traMADol HCL 50 MG TABLET PO PRN (20:51)
[2022-08-29] MEDS ORDERED: DEXTROSE 50% 50 ML SYRINGE IV PRN (20:51)
[2022-08-29] MEDS ORDERED: GLUCOSE 10 TAB/TUBE PO PRN (20:51)
[2022-08-29] MEDS ORDERED: CARBOHYDRATES FOR HYPOGLYCEMIA PO PRN (20:51)
[2022-08-29] MEDS: APIXABAN 2.5 MG TAB PO SCH (22:10)
[2022-08-29] MEDS: METOPROLOL TARTRATE 25 MG TAB PO SCH (22:11)
[2022-08-29] MEDS: INSULIN ASPART PER UNIT CHARGE SC SCH (22:33)
[2022-08-29] MEDS: ACETAMINOPHEN 500 MG TAB PO SCH (23:31)
[2022-08-30] MEDS: LEVOTHYROXINE SODIUM 150 MCG TABLET PO SCH (06:08)
[2022-08-30 06:20] LABS: Hematocrit (blood only) 27.8 % (42.0-52.0); Hemoglobin 9.4 g/dl (14.0-18.0); Mean Corpuscular Hemoglobin 30.6 pg (25.0-34.0); Mean Corpuscular Hgb Conc 33.8 g/dL (32.0-36.0); Mean Corpuscular Volume 90.6 fL (80.0-100.0); Mean Platelet Volume 10.1 fL (9.4-12.4); Platelet Count 301 K/uL (130-400); RDW Coefficient of Variation 13.6 % (11.5-14.5); RDW Standard Deviation 44.3 fL (36.4-46.3); Red Blood Count 3.07 M/uL (4.70-6.10); White Blood Count 6.93 K/ul (4.8-10.8)
[2022-08-30 06:37] LABS: Albumin Level 3.4 gm/dl (3.4-5.0); Bilirubin,Total 0.4 mg/dl (0.2-1.0); Calcium 9.2 mg/dl (8.6-10.3); Creatinine Clr Calc Pharmacy 10.3 ml/min; Est GFR (African American) 9.5 ml/min; Est GFR (Non-African American) 8.2 ml/min; Globulin 3.5 gm/dl (2.5-4.0); Potassium 4.6 mmol/L (3.5-5.1); Total Protein 6.9 gm/dl (6.0-8.3)
[2022-08-30 06:53] LABS: BUN Creatinine Ratio 23.3 (10-20)
[2022-08-30] MEDS: ACETAMINOPHEN 500 MG TAB PO SCH ×2 (08:12→15:53)
[2022-08-30] MEDS: APIXABAN 2.5 MG TAB PO SCH ×2 (08:12→20:04)
[2022-08-30] MEDS: METOPROLOL TARTRATE 25 MG TAB PO SCH ×3 (08:12→20:05)
[2022-08-30] MEDS: ASPIRIN 81 MG ECTAB PO SCH (08:12)
[2022-08-30] MEDS: MULTIVITAMIN TAB PO SCH (08:12)
[2022-08-30] MEDS: POTASSIUM CHLORIDE CRTAB 20 MEQ TABCR PO SCH (08:13)
[2022-08-30] MEDS: allopurinoL 100 MG TAB PO SCH (08:13)
[2022-08-30] MEDS: DOCUSATE SODIUM 100 MG CAP PO SCH (08:13)
[2022-08-30] MEDS: INSULIN ASPART PER UNIT CHARGE SC SCH ×4 (08:52→21:12)
[2022-08-30] MEDS ORDERED: TORSEMIDE 100 MG TAB PO SCH (09:00)
--- NOTE | 2022-08-30 10:19 | Ultrasound Report ---
ABDOMINAL ULTRASOUND, RIGHT UPPER QUADRANT HISTORY: Acute right upper quadrant abdominal pain pancreatitis. COMPARISON: CT 08/29/2022 FINDINGS: Pancreas: The pancreas is mostly obscured by bowel gas 2.0 x 1.7 x 2.0 cm hypoechoic focus of the hong creatic head again noted without color flow.. Liver: The liver measures 21 cm in length and demonstrates increased echogenicity which may represent hepatic steatosis. No hepatic mass identified. Gallbladder: Mild layering gallbladder sludge. Minimal cholelithiasis. Gallbladder wall measures with in the upper limits of normal at 3 mm. No pericholecystic fluid identified. Negative sonographic Murp hy's sign. CBD: 0.6 cm. Right kidney: No hydronephrosis. Cysts of the right kidney measure up to 2.7 cm. 1 cm exophytic cyst of the interpolar right kidney likely correlates with the complex lesion described on comparison CT. No solid renal mass lesions identified. IMPRESSION: 1. Pancreas is mostly obscured by bowel gas. 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 2. Gallbladder sludge with mild cholelithiasis. The gallbladder wall measures within the upper limits of normal and there is no pericholecystic fluid. Findings are equivocal for acute cholecystitis. Nuc [facility] hepatobiliary scan may be considered. 3. No solid renal mass lesions of the right kidney identified. ACT 112: Negative or not required by law. Electronically signed by: Medardo Medrano M.D. 08/30/2022 10:17 AM
--- NOTE | 2022-08-30 10:24 | Nephrology Consultation ---
Date of Consultation August 30, 2022 Assessment & Plan (1) ESRD (end stage renal disease): Patient with ESRD with PD catheter but has not yet started PD. Electrolytes are stable and no signs of volume overload. No indication for PD today. Patient will likely start his PD as an outpatient. If his pain is controlled, patient can be discharged to start PD outpatient (2) Chronic diastolic CHF (congestive heart failure): CT abdomen showed cardiomegaly. We will increase his torsemide to 150 mg daily. Monitor input output (3) Acute right flank pain: Etiology is unclear but could be musculoskeletal. This does not look peritonitis given low risk in setting of newly placed PD catheter which has not even been used. Continue conservative management. History of Present Illness Reason for Consultation: ESRD with right flank pain Requesting Physician: Breezy Huddleston MD Attending Physician: Breezy Huddleston MD History of Present Illness This is 82-year-old male with history of hypertension, type 2 diabetes, hyperlipidemia, hypothyroidism, diastolic CHF, A-fib on Eliquis and ESRD due to start PD next week who was admitted with right flank pain. Patient recently hospitalized at [facility] for placement of PD catheter. This was done on 08/25/2022. He has not started PT yet. He was planned [facility]. Yesterday he developed severe right flank pain and right upper quadrant pain. CT abdomen showed cardiomegaly and trace pleural effusions but no acute intra-abdominal abnormality. His pain is better on pain medications. No shortness of breath. He has mild leg swelling. Creatinine is 5.9 and BUN of 138. Hemoglobin 9.4. Allergies Allergy/AdvReac Type Severity Reaction Status Date / Time clonidine Allergy Unknown allergic Unverified 08/29/22 18:51 to all but 1 brand carvedilol Allergy Hives Verified 08/29/22 18:51 losartan Allergy Unknown Verified 08/29/22 18:51 ANJELICA Inhibitors AdvReac Intermediate INTOLERANCE Verified 08/29/22 18:51 PER MD ORDER allopurinol AdvReac Intermediate severe abd Verified 08/29/22 18:51 pain Beta-Blockers AdvReac Intermediate INTOLERANCE Verified 08/29/22 18:51 (Beta-Adrenergic Bloc PER DR HUDDLESTON doxazosin AdvReac Intermediate INTOLERANCE Verified 08/29/22 18:[address] HUDDLESTON Ocmwxim-UTC-VfT Reductase AdvReac Intermediate INTOLERANCE Verified 08/29/22 18:[address] [Bpsyujn-Mfk-Nqo Reductase ADAN Inhibitor] citalopram AdvReac Unknown Verified 08/29/22 18:51 hydralazine AdvReac diarrhea, Verified 08/29/22 18:51 testicular pain hydrochlorothiazide AdvReac hyponatremi Verified 08/29/22 18:51 a lisinopril AdvReac Cough Verified 08/29/22 18:51 simvastatin [From Zocor] AdvReac Muscle Pain Verified 08/29/22 18:51 sitagliptin [From Januvia] AdvReac restlessnes Verified 08/29/22 18:51 s Home Medications Medication Instructions Recorded Confirmed Type allopurinol 100 mg tablet 100 mg PO QAM 02/25/18 08/29/22 History aspirin 81 mg tablet,delayed 81 mg PO DAILY 02/25/18 08/29/22 History release levothyroxine 150 mcg tablet 150 mcg PO DAILYBB 08/12/20 08/29/22 History multivitamin 1 tab PO DAILY 08/12/20 08/29/22 History B-complex with vitamin C 1 tab PO DAILY 08/29/22 08/29/22 History apixaban 2.5 mg tablet (Eliquis) 2.5 mg PO BID 08/29/22 08/29/22 History docusate sodium 100 mg tablet 100 mg PO DAILY 08/29/22 08/29/22 History glipizide 2.5 mg tablet, extended 2.5 mg PO QAM 08/29/22 08/29/22 History release 24 hr hydroxyzine HCl 10 mg tablet 10 mg PO TID PRN Anxiety 08/29/22 08/29/22 History linagliptin 5 mg tablet (Tradjenta) 5 mg PO QAM 08/29/22 08/29/22 History metoprolol tartrate 25 mg tablet 25 mg PO TID 08/29/22 08/29/22 History potassium chloride 20 mEq 40 meq PO DAILY 08/29/22 08/29/22 History tablet,extended release torsemide 100 mg tablet 100 mg PO QAM 08/29/22 08/29/22 History Patient History Medical History Atrial fibrillation Chronic diastolic CHF (congestive heart failure) COPD (chronic obstructive pulmonary disease) DM type 2 (diabetes mellitus, type 2) ESRD (end stage renal disease) Gout Hypertension Hypothyroidism ANGY (iron deficiency anemia) LBBB (left bundle branch block) Pancreatic cyst Peritoneal dialysis catheter in situ Prostate ca Pulmonary hypertension Spinal stenosis Thyroid cancer Surgical History S/P lumbar fusion Social History Smoking Status: Former smoker Cigarettes Per Day: 10; Smoking End Date: 1978.; Second Hand Exposure: No; Do You Dip or Chew Tobacco: Yes; Tobacco Cessation Education Requested by Patient: No Hx Alcohol Use: No Hx Substance Use: No Preferred Language: Angolan Communication Ability: Effective Corporate Librarian Required: No Beliefs That Will Affect Care: None marital status: Current Living Situation: Spouse Other Information That Helps Us Care for You: No Feels Safe at Home: Yes Safety Concerns: Feels Safe At This Time Assistive Devices: Cane, Denture - Upper, Denture - Lower, Glasses and Walker Review of Systems Review of Systems: All other systems were reviewed and negative except as noted in HPI Physical Exam Physical Exam: General exam: Appears comfortable, no acute distress HEENT: Pupils are equal and reactive to light Neck: No JVD, neck is supple trachea is midline Respiratory system: Clear breath sounds bilaterally. Gastrointestinal: Abdomen is soft, right flank tenderness but no tenderness around the PD catheter CVS: Regular rate and rhythm. No murmurs, rubs or gallops Musculoskeletal: No joint or muscle tenderness Extremities: Non tender, no edema, peripheral pulses are present Neuro: Oriented, no tremors, no focal neurological deficits Skin: No rashes Results & Data Vital Signs (Past 12 Hours) Vital Signs Temp Pulse Resp BP Pulse Ox O2 Del Method 08/30/22 07:11 36.8 C 99 H 18 115/77 95 Room Air 08/29/22 23:06 88 Laboratory Results 08/30/22 05:27 08/29/22 08/29/22 08/30/22 14:40 14:40 05:27 WBC 8.24 6.93 RBC 3.23 L 3.07 L MCV 90.1 90.6 MCH 30.7 30.6 MCHC 34.0 33.8 RDW Std Deviation 45.1 44.3 RDW Coeff of Pooja 13.7 13.6 Plt Count 337 301 MPV 10.2 10.1 Albumin 3.9 08/30/22 05:27 WBC RBC MCV MCH MCHC RDW Std Deviation RDW Coeff of Pooja Plt Count MPV Albumin 3.4
--- NOTE | 2022-08-30 17:55 | Hospitalist Progress Note ---
Date of Service August 30, 2022 Assessment & Plan (1) Acute right flank pain: Plan: Ultrasound of the liver did show gallbladder sludge with mild cholelithiasis No cholecystitis but have a hepatobiliary scan should be done to rule out any gallbladder pathology Patient is free from any pain (2) Elevated lipase: Plan: Lipase is elevated at 390s Repeat test came back negative Symptoms have resolved (3) Kidney lesion: (4) Cholelithiasis: Plan: As above without any cholecystitis We will get a hepatobiliary scan to assess gallbladder function (5) Pancreatic cyst: Plan: Patient presenting from home with reports of acute onset right flank pain with radiation to the RUQ this morning. In the ED, CT ABD/pelvis unremarkable for acute findings. Pancreatic cyst noted - 2.4 x 2.5 cm cystic lesion of the pancreatic tail (previously 1.9cm x 2cm on CT ABD/pelvis 02/2021), pancreatic head measuring 1.9 cm (previously 2.[address] ABD/pelvis 02/2021) 10 mm right kidney lesion --will obtain ultrasound for follow-up Cholelithiasis noted and mildly elevated lipase -- ?? Mild pancreatitis and/or biliary colic -will obtain RUQ US Conservative management for now, clear liquids with pain control. Consider GI consult. Pain is resolved and denies any nausea or vomiting (6) ESRD (end stage renal disease): Plan: Appreciate nephrology input and recommendation Can peritoneal dialysis starting from tomorrow at home (7) Peritoneal dialysis catheter in situ: Plan: Recently had a peritoneal dialysis catheter placed, has not started treatment yet Creatinine at baseline (8) Atrial fibrillation: Plan: Rate controlled on metoprolol, anticoagulated on Eliquis (9) Chronic diastolic CHF (congestive heart failure): Plan: Appears euvolemic, continue torsemide (10) DM type 2 (diabetes mellitus, type 2): Plan: Hgb A1c 7.4 08/2022 Hold oral agents and utilize NovoLog per protocol while hospitalized (11) Hyponatremia: Plan: Na+ 128, chronic, at recent baseline Sodium level is 130 (12) ANGY (iron deficiency anemia): Plan: Receives iron infusions (13) Hypothyroidism: Plan: Continue levothyroxine DVT PROPHYLAXIS On Eliquis Admission and Anticipated Discharge Date Admission Date: August 29, 2022 Subjective 08/30/2022 The patient was seen and examined in medical floor He was admitted with acute abdomen and the pain has resolved Likely secondary to acute pancreatitis and the enzymes are normalized Denies any significant symptoms during examination Review of Systems Review of Systems: All systems reviewed and are unremarkable except as noted below Physical Exam Physical Exam: Sitting at the edge of the bed without any acute distress Constitutional: well developed, well nourished and + obese; not ill appearing Eyes: PERRL, conjunctivae normal, anicteric sclerae ENMT: external ear and nose normal, oropharynx normal Neck: trachea midline, no thyromegaly Respiratory: no respiratory distress Auscultation: + diminished lung sounds and + crackles (Minimal crackles bibasally) Cardiovascular: Rate/Rhythm: regular rate and regular rhythm; not tachycardic Heart Sounds: normal S1 and normal S2; no murmur Extremities: + edema (Trace edema bilaterally) Gastrointestinal (Abdomen): Inspection/Auscultation: + abdomen distended and normal bowel sounds Percussion/Palpation: abdomen soft; abdomen nontender Musculoskeletal: No acute arthritis involving any of the joint Neurologic: Alert, awake and oriented x3 Lymphatic: no cervical or axillary lymphadenopathy Results & Data Results & Data Vital Signs (Past 12 Hours) Vital Signs Temp Pulse Resp BP Pulse Ox O2 Del Method 08/30/22 15:58 36.3 C L 72 18 112/66 93 Room Air 08/30/22 07:11 36.8 C 99 H 18 115/77 95 Room Air Laboratory Results Short CBC 08/30/22 Range/Units 05:27 WBC 6.93 (4.8-10.8) K/ul Hgb 9.4 L (14.0-18.0) g/dl Hct 27.8 L (42.0-52.0) % Plt Count 301 (130-400) K/uL BMP 08/30/22 05:27 Sodium 130 L Potassium 4.6 Chloride 94 L Carbon Dioxide 25 BUN 138 H Creatinine 5.92 H* Glucose 153 H Calcium 9.2 Liver Function 08/30/22 Range/Units 05:27 Total Bilirubin 0.4 (0.2-1.0) mg/dl AST 18 (13-39) U/L ALT 10 (7-52) U/L Alkaline Phosphatase 63 (34-104) U/L Albumin 3.4 (3.4-5.0) gm/dl Medications Administered Current Inpatient Medications Acetaminophen (Acetaminophen 500 Mg Tab) 1,000 mg PO Q8H [facility] Stop: 09/29/22 00:00 Last Admin: 08/30/22 15:53 Dose: 1,000 mg Allopurinol (Allopurinol 100 Mg Tab) 100 mg PO QAM [facility] Stop: 09/29/22 08:59 Last Admin: 08/30/22 08:13 Dose: 100 mg Apixaban (Apixaban 2.5 Mg Tab) 2.5 mg PO BID [facility] Stop: 09/28/22 20:59 Last Admin: 08/30/22 08:12 Dose: 2.5 mg Aspirin (Aspirin 81 Mg Ectab) 81 mg PO DAILY [facility] Stop: 09/29/22 08:59 Last Admin: 08/30/22 08:12 Dose: 81 mg Dextrose (Dextrose 50% 50 Ml Syringe) 25 - 50 ml IV UD PRN; Protocol PRN Reason: Hypoglycemia Protocol Stop: 09/28/22 20:50 Docusate Sodium (Docusate Sodium 100 Mg Cap) 100 mg PO DAILY [facility] Stop: 09/29/22 08:59 Last Admin: 08/30/22 08:13 Dose: 100 mg Glucagon (Glucagon For Inj 1 Mg Vial) 1 mg SQ UD PRN; Protocol PRN Reason: Hypoglycemia Protocol Stop: 09/28/22 20:50 Glucose (Glucose 10 Tab/Tube) 4 - 8 tab PO UD PRN; Protocol PRN Reason: Hypoglycemia Treatment Stop: 09/28/22 20:50 Glucose (Glucose 40% Gel 15 Gm Tube) 15 - 30 gm PO UD PRN; Protocol PRN Reason: Hypoglycemia Protocol Stop: 09/28/22 20:50 Hydroxyzine HCl (Hydroxyzine Hcl 10 Mg Tab) 10 mg PO TID PRN PRN Reason: Anxiety Stop: 09/28/22 20:50 Insulin Aspart (Insulin Aspart Per Unit Charge) 0 units SC ACHS [facility] Stop: 09/28/22 20:59 Last Admin: 08/30/22 13:24 Dose: 3 units Levothyroxine Sodium (Levothyroxine Sodium 150 Mcg Tablet) 150 mcg PO DAILYBB [facility] Stop: 09/29/22 06:29 Last Admin: 08/30/22 06:08 Dose: 150 mcg Metoprolol Tartrate (Metoprolol Tartrate 25 Mg Tab) 25 mg PO TID [facility] Stop: 09/28/22 20:59 Last Admin: 04/23/23 13:25 Dose: 25 mg Miscellaneous (Carbohydrates For Hypoglycemia ) 15 - 30 gm PO UD PRN PRN Reason: Hypoglycemia Protocol Stop: 09/28/22 20:50 Multivitamins (Multivitamin Tab) 1 tab PO DAILY [facility] Stop: 09/29/22 08:59 Last Admin: 08/30/22 08:12 Dose: 1 tab Ondansetron HCl (Ondansetron Inj 2 Mg/Ml 2 Ml Vial) 4 mg IV Q6H PRN PRN Reason: Nausea Stop: 09/28/22 20:50 Potassium Chloride (Potassium Chloride Crtab 20 Meq Tabcr) 40 meq PO DAILY [facility] Stop: 09/29/22 08:59 Last Admin: 08/30/22 08:13 Dose: 40 meq Torsemide (Torsemide 100 Mg Tab) 150 mg PO QAM [facility] Stop: 09/30/22 08:59 Tramadol HCl (Tramadol Hcl 50 Mg Tablet) 50 mg PO Q6H PRN PRN Reason: moderate-severe pain Stop: 09/28/22 20:50 Last Admin: 08/30/22 06:07 Dose: 50 mg
[2022-08-31] MEDS: ACETAMINOPHEN 500 MG TAB PO SCH ×2 (00:50→09:07)
[2022-08-31] MEDS: LEVOTHYROXINE SODIUM 150 MCG TABLET PO SCH (05:53)
[2022-08-31 06:26] LABS: Basophils # (auto) 0.04 K/uL (0-0.2); Basophils % (auto) 0.6 %; Eosinophils # (auto) 0.47 K/uL (0-0.50); Eosinophils % (auto) 6.5 %; Hematocrit (blood only) 27.7 % (42.0-52.0); Hemoglobin 9.3 g/dl (14.0-18.0); Immature Granulocytes # (auto) 0.03 K/uL (0.01-0.20); Immature Granulocytes % (auto) 0.4 %; Lymphocytes # (auto) 1.04 K/uL (1.2-3.4); Lymphocytes % (auto) 14.4 %; Mean Corpuscular Hemoglobin 30.9 pg (25.0-34.0); Mean Corpuscular Hgb Conc 33.6 g/dL (32.0-36.0); Mean Platelet Volume 10.4 fL (9.4-12.4); Monocytes # (auto) 0.93 K/uL (0.11-0.59); Monocytes % (auto) 12.8 %; Neutrophils # (auto) 4.73 K/uL (1.40-6.50); Neutrophils % (auto) 65.3 %; Platelet Count 314 K/uL (130-400); RDW Coefficient of Variation 13.9 % (11.5-14.5); RDW Standard Deviation 45.8 fL (36.4-46.3); Red Blood Count 3.01 M/uL (4.70-6.10); White Blood Count 7.24 K/ul (4.8-10.8)
[2022-08-31 06:46] LABS: Anion Gap 13 (3-11); BUN Creatinine Ratio 21.7 (10-20); Blood Urea Nitrogen 130 mg/dl (6-23); Calcium 9.4 mg/dl (8.6-10.3); Carbon Dioxide 24 mmol/L (21-32); Chloride 95 mmol/L (98-107); Creatinine Clr Calc Pharmacy 10.2 ml/min; Est GFR (African American) 9.4 ml/min; Est GFR (Non-African American) 8.1 ml/min; Glucose 91 mg/dl (70-99(Fasting)); Sodium 132 mmol/L (136-145)
[2022-08-31] MEDS ORDERED: TORSEMIDE 10 MG TAB PO SCH (09:00)
[2022-08-31] MEDS ORDERED: TORSEMIDE 100 MG TAB PO SCH (09:00)
[2022-08-31] MEDS: DOCUSATE SODIUM 100 MG CAP PO SCH (09:06)
[2022-08-31] MEDS: allopurinoL 100 MG TAB PO SCH (09:06)
[2022-08-31] MEDS: MULTIVITAMIN TAB PO SCH (09:06)
[2022-08-31] MEDS: APIXABAN 2.5 MG TAB PO SCH (09:07)
[2022-08-31] MEDS: METOPROLOL TARTRATE 25 MG TAB PO SCH ×2 (09:07→13:15)
[2022-08-31] MEDS: POTASSIUM CHLORIDE CRTAB 20 MEQ TABCR PO SCH (09:07)
[2022-08-31] MEDS: ASPIRIN 81 MG ECTAB PO SCH (09:07)
[2022-08-31] MEDS: INSULIN ASPART PER UNIT CHARGE SC SCH ×2 (09:07→13:15)
--- NOTE | 2022-08-31 09:12 | Nephrology Progress Note ---
Date of Service August 31, 2022 Assessment & Plan Admission and Anticipated Discharge Date Admission Date: August 29, 2022 Subjective A/p: Assessment & Plan (1) ESRD (end stage renal disease): Patient with ESRD with PD catheter but has not yet started PD. Electrolytes are stable and no signs of volume overload. No indication for PD today. Patient will start his PD as an outpatient--at least that is the plan for now.. (2) Chronic diastolic CHF (congestive heart failure): CT abdomen showed cardiomegaly. Continue torsemide 100 mg daily. Monitor input output (3) Acute right flank pain: Etiology is unclear but could be musculoskeletal vs ? Acute Cholecystitis.Defer to gen Surgery. This does not look peritonitis given low risk in setting of newly placed PD catheter which has not even been used. S---C/o Abd pain in rt flank. Bp is fine but HI high. Physical Exam Physical Exam: General exam: Appears comfortable, no acute distress HEENT: Pupils are equal and reactive to light Neck: No JVD, neck is supple trachea is midline Respiratory system: Clear breath sounds bilaterally. Gastrointestinal: Abdomen is soft, right flank tenderness but no tenderness around the PD catheter CVS: Regular rate and rhythm. No murmurs, rubs or gallops Musculoskeletal: No joint or muscle tenderness Extremities: Non tender, no edema, peripheral pulses are present Neuro: Oriented, no tremors, no focal neurological deficits Skin: No rashes Results & Data Vital Signs (Past 12 Hours) Vital Signs Temp Pulse Resp BP Pulse Ox O2 Del Method 08/31/22 07:38 36.6 C 118 H 18 145/86 H 95 Room Air
--- NOTE | 2022-08-31 10:26 | Nuclear Medicine Report ---
NUCLEAR MEDICINE HEPATOBILIARY SCAN HISTORY: Right flank pain. Elevated lipase. R/O CHOLECYSTITIS COMPARISON: Abdominal ultrasound 08/30/2022. TECHNIQUE: Immediately following the intravenous administration of 5 mCi Tc-99m Choletec, dynamic ant erior abdominal imaging was performed. FINDINGS: Uniform hepatic tracer accumulation is shown. Prompt intrahepatic biliary excretion is seen. The gall bladder, common bile duct, and small bowel are all visualized by 15 minutes. This appearance represen ts the normal sequence of biliary excretion. IMPRESSION: 1. No evidence for cystic duct obstruction. ACT 112: Negative or not required by law. Electronically signed by: Jaswant Nino M.D. 08/31/2022 10:25 AM
[2022-08-31] MEDS ORDERED: LORazepam 0.5 MG TAB PO STA (11:36)
--- NOTE | 2022-08-31 11:41 | Hospitalist Progress Note ---
Date of Service August 31, 2022 Assessment & Plan (1) Acute right flank pain: Plan: Ultrasound of the liver did show gallbladder sludge with mild cholelithiasis No cholecystitis but have a hepatobiliary scan should be done to rule out any gallbladder pathology Patient is free from any pain Pain is resolved (2) Elevated lipase: Plan: Lipase is elevated at 390s Repeat test came back negative Symptoms have resolved (3) Kidney lesion: (4) Cholelithiasis: Plan: As above without any cholecystitis We will get a hepatobiliary scan to assess gallbladder function HIDA scan is negative for any acute cholecystitis/cystic duct obstruction (5) Pancreatic cyst: Plan: Patient presenting from home with reports of acute onset right flank pain with radiation to the RUQ this morning. In the ED, CT ABD/pelvis unremarkable for acute findings. Pancreatic cyst noted - 2.4 x 2.5 cm cystic lesion of the pancreatic tail (previously 1.9cm x 2cm on CT ABD/pelvis 02/2021), pancreatic head measuring 1.9 cm (previously 2.[address] ABD/pelvis 02/2021) 10 mm right kidney lesion --will obtain ultrasound for follow-up Cholelithiasis noted and mildly elevated lipase -- ?? Mild pancreatitis and/or biliary colic -will obtain RUQ US Conservative management for now, clear liquids with pain control. Consider GI consult. Pain is resolved and denies any nausea or vomiting No more pain, nausea and or vomiting (6) ESRD (end stage renal disease): Plan: Appreciate nephrology input and recommendation Can peritoneal dialysis starting from tomorrow at home No PD today but has to be done [facility] (7) Peritoneal dialysis catheter in situ: Plan: Recently had a peritoneal dialysis catheter placed, has not started treatment yet Creatinine at baseline Without any infection (8) Atrial fibrillation: Plan: Rate controlled on metoprolol, anticoagulated on Eliquis (9) Chronic diastolic CHF (congestive heart failure): Plan: Appears euvolemic, continue torsemide (10) DM type 2 (diabetes mellitus, type 2): Plan: Hgb A1c 7.4 08/2022 Hold oral agents and utilize NovoLog per protocol while hospitalized (11) Hyponatremia: Plan: Na+ 128, chronic, at recent baseline Sodium level is 132 (12) ANGY (iron deficiency anemia): Plan: Receives iron infusions (13) Hypothyroidism: Plan: Continue levothyroxine DVT PROPHYLAXIS On Eliquis Plan Will be discharged home this afternoon Admission and Anticipated Discharge Date Admission Date: August 29, 2022 Subjective 08/30/2022 The patient was seen and examined in medical floor He was admitted with acute abdomen and the pain has resolved Likely secondary to acute pancreatitis and the enzymes are normalized Denies any significant symptoms during examination 08/31/2022 The patient was seen and examined in medical floor He is very anxious about his peritoneal dialysis He denies any more abdominal pain His HIDA scan came back negative for any cystic duct obstruction He will be discharged home this afternoon Review of Systems Review of Systems: All systems reviewed and are unremarkable except as noted below Physical Exam Physical Exam: Sitting at the edge of the bed without any acute distress Constitutional: well developed, well nourished and + obese; not ill appearing Eyes: PERRL, conjunctivae normal, anicteric sclerae ENMT: external ear and nose normal, oropharynx normal Neck: trachea midline, no thyromegaly Respiratory: no respiratory distress Auscultation: + diminished lung sounds and + crackles (Minimal crackles bibasally) Cardiovascular: Rate/Rhythm: regular rate and regular rhythm; not tachycardic Heart Sounds: normal S1 and normal S2; no murmur Extremities: + edema (Trace edema bilaterally) Gastrointestinal (Abdomen): Inspection/Auscultation: + abdomen distended and normal bowel sounds Percussion/Palpation: abdomen soft; abdomen nontender Musculoskeletal: No acute arthritis involving any joint Neurologic: normal touch/pain/proprioception and moves all extremities; no focal motor deficits Psychiatric: A+Ox3, euthymic affect Lymphatic: no cervical or axillary lymphadenopathy Results & Data Results & Data Vital Signs (Past 12 Hours) Vital Signs Temp Pulse Resp BP Pulse Ox O2 Del Method 08/31/22 07:38 36.6 C 118 H 18 145/86 H 95 Room Air Laboratory Results Short CBC 08/31/22 Range/Units 05:48 WBC 7.24 (4.8-10.8) K/ul Hgb 9.3 L (14.0-18.0) g/dl Hct 27.7 L (42.0-52.0) % Plt Count 314 (130-400) K/uL BMP 08/31/22 08/31/22 05:48 07:21 Sodium 132 L Potassium TNP 4.7 Chloride 95 L Carbon Dioxide 24 BUN 130 H Creatinine 5.99 H* Glucose 91 Calcium 9.4 Medications Administered Current Inpatient Medications Acetaminophen (Acetaminophen 500 Mg Tab) 1,000 mg PO Q8H [facility] Stop: 09/29/22 00:00 Last Admin: 08/31/22 09:07 Dose: 1,000 mg Allopurinol (Allopurinol 100 Mg Tab) 100 mg PO QAM [facility] Stop: 09/29/22 08:59 Last Admin: 08/31/22 09:06 Dose: 100 mg Apixaban (Apixaban 2.5 Mg Tab) 2.5 mg PO BID [facility] Stop: 09/28/22 20:59 Last Admin: 08/31/22 09:07 Dose: 2.5 mg Aspirin (Aspirin 81 Mg Ectab) 81 mg PO DAILY [facility] Stop: 09/29/22 08:59 Last Admin: 08/31/22 09:07 Dose: 81 mg Dextrose (Dextrose 50% 50 Ml Syringe) 25 - 50 ml IV UD PRN; Protocol PRN Reason: Hypoglycemia Protocol Stop: 09/28/22 20:50 Docusate Sodium (Docusate Sodium 100 Mg Cap) 100 mg PO DAILY [facility] Stop: 09/29/22 08:59 Last Admin: 08/31/22 09:06 Dose: 100 mg Glucagon (Glucagon For Inj 1 Mg Vial) 1 mg SQ UD PRN; Protocol PRN Reason: Hypoglycemia Protocol Stop: 09/28/22 20:50 Glucose (Glucose 10 Tab/Tube) 4 - 8 tab PO UD PRN; Protocol PRN Reason: Hypoglycemia Treatment Stop: 09/28/22 20:50 Glucose (Glucose 40% Gel 15 Gm Tube) 15 - 30 gm PO UD PRN; Protocol PRN Reason: Hypoglycemia Protocol Stop: 09/28/22 20:50 Hydroxyzine HCl (Hydroxyzine Hcl 10 Mg Tab) 10 mg PO TID PRN PRN Reason: Anxiety Stop: 09/28/22 20:50 Last Admin: 08/31/22 09:06 Dose: 10 mg Insulin Aspart (Insulin Aspart Per Unit Charge) 0 units SC ACHS [facility] Stop: 09/28/22 20:59 Last Admin: 08/31/22 09:07 Dose: Not Given Levothyroxine Sodium (Levothyroxine Sodium 150 Mcg Tablet) 150 mcg PO DAILYBB [facility] Stop: 09/29/22 06:29 Last Admin: 08/31/22 05:53 Dose: 150 mcg Metoprolol Tartrate (Metoprolol Tartrate 25 Mg Tab) 25 mg PO TID [facility] Stop: 09/28/22 20:59 Last Admin: 08/31/22 09:07 Dose: 25 mg Miscellaneous (Carbohydrates For Hypoglycemia ) 15 - 30 gm PO UD PRN PRN Reason: Hypoglycemia Protocol Stop: 09/28/22 20:50 Multivitamins (Multivitamin Tab) 1 tab PO DAILY [facility] Stop: 09/29/22 08:59 Last Admin: 08/31/22 09:06 Dose: 1 tab Ondansetron HCl (Ondansetron Inj 2 Mg/Ml 2 Ml Vial) 4 mg IV Q6H PRN PRN Reason: Nausea Stop: 09/28/22 20:50 Potassium Chloride (Potassium Chloride Crtab 20 Meq Tabcr) 40 meq PO DAILY [facility] Stop: 09/29/22 08:59 Last Admin: 08/31/22 09:07 Dose: 40 meq Torsemide (Torsemide 100 Mg Tab) 150 mg PO QAM [facility] Stop: 09/30/22 08:59 Last Admin: 08/31/22 09:06 Dose: 150 mg Tramadol HCl (Tramadol Hcl 50 Mg Tablet) 50 mg PO Q6H PRN PRN Reason: moderate-severe pain Stop: 09/28/22 20:50 Last Admin: 08/30/22 06:07 Dose: 50 mg
--- NOTE | 2022-09-01 08:00 | Discharge Summary ---
Date of Service September 01, 2022 Admission HPI Per Admitting Provider 82-year-old male with PMH DM type II, hypothyroidism, pancreatic cyst, chronic diastolic CHF, atrial fibrillation on Eliquis, HTN, LBBB, ESRD with peritoneal dialysis catheter in place, history of thyroid cancer, history of prostate cancer, and other problems listed below who presents to the ED for evaluation of right flank pain. Patient reports he acutely developed a right flank pain this morning. Patient describes the pain as " deep" and not muscular in nature. Patient reports some radiation of the pain around to the right upper quadrant. Patient denies associated nausea or vomiting. No fevers or chills. Denies chest pain or shortness of breath. No lightheadedness, dizziness, diaphoresis, syncopal events. Denies urinary symptoms. In the ED, CT ABD/pelvis is unremarkable for acute findings. Labs are unremarkable/at patient's baseline. Patient was given IV fentanyl, IV Zofran, IVF. Admission Exam Per Admitting Provider Constitutional: WD/WN, vitals as above Eyes: PERRL, conjunctivae normal, anicteric sclerae ENMT: external ear and nose normal, oropharynx normal Respiratory: normal respiratory effort, lungs clear to auscultation Cardiovascular: Rate/Rhythm: regular rate and + irregularly irregular Vessels: normal peripheral pulses Extremities: + edema (+1 pitting edema noted bilateral ankles) Gastrointestinal (Abdomen): normal bowel sounds, soft, nontender, no hepatosplenomegaly Peritoneal dialysis catheter in place with dressing Musculoskeletal: no cyanosis or clubbing, extremities motor strength 5/5 Skin: no rashes, warm and dry Neurologic: PERRL, EOMI, accommodation nl, no face palsy, no dysarthria Psychiatric: A+Ox3, euthymic affect Principal Diagnosis Acute abdominal pain, likely secondary to pancreatitis which resolved, p ancreatic cyst, cholelithiasis without acute cholecystitis, end-stage renal disease will be on peritoneal dialysis Discharge Exam Sitting at the edge of the bed without any acute distress Constitutional well developed, well nourished and + obese; not ill appearing Eyes PERRL, conjunctivae normal, anicteric sclerae ENMT external ear and nose normal, oropharynx normal Neck trachea midline, no thyromegaly Respiratory no respiratory distress Auscultation: + diminished lung sounds and + crackles (Minimal crackles bibasally) Cardiovascular Rate/Rhythm: regular rate and regular rhythm; not tachycardic Heart Sounds: normal S1 and normal S2; no murmur Extremities: + edema (Trace edema bilaterally) Gastrointestinal (Abdomen) Inspection/Auscultation: + abdomen distended and normal bowel sounds Percussion/Palpation: abdomen soft; abdomen nontender Neurologic normal touch/pain/proprioception and moves all extremities; no focal motor deficits Psychiatric A+Ox3, euthymic affect Lymphatic no cervical or axillary lymphadenopathy Discharge Data Allergies Allergy/AdvReac Type Severity Reaction Status Date / Time clonidine Allergy Unknown allergic Unverified 08/29/22 18:51 to all but 1 brand carvedilol Allergy Hives Verified 08/29/22 18:51 losartan Allergy Unknown Verified 08/29/22 18:51 ANJELICA Inhibitors AdvReac Intermediate INTOLERANCE Verified 08/29/22 18:51 PER MD ORDER allopurinol AdvReac Intermediate severe abd Verified 08/29/22 18:51 pain Beta-Blockers AdvReac Intermediate INTOLERANCE Verified 08/29/22 18:51 (Beta-Adrenergic Bloc PER DR HUDDLESTON doxazosin AdvReac Intermediate INTOLERANCE Verified 08/29/22 18:[address] HUDDLESTON [id number] Reductase AdvReac Intermediate INTOLERANCE Verified 08/29/22 18:51 Inhibitor PER [Orsyxop-Eiu-Kil Reductase ADAN Inhibitor] citalopram AdvReac Unknown Verified 08/29/22 18:51 hydralazine AdvReac diarrhea, Verified 08/29/22 18:51 testicular pain hydrochlorothiazide AdvReac hyponatremi Verified 08/29/22 18:51 a lisinopril AdvReac Cough Verified 08/29/22 18:51 simvastatin [From Zocor] AdvReac Muscle Pain Verified 08/29/22 18:51 sitagliptin [From Januvia] AdvReac restlessnes Verified 08/29/22 18:51 s Consultations 08/29/22 19:08 ED Decision to Admit Stat 08/30/22 06:39 Consult Nephrology Routine Ordered Studies 08/29/22 14:23 CT abd pelvis wo con Stat 08/30/22 19:12 US liver Routine Hospital Course (1) Acute right flank pain: Ultrasound of the liver did show gallbladder sludge with mild cholelithiasis No cholecystitis but have a hepatobiliary scan should be done to rule out any gallbladder pathology Patient is free from any pain Pain is resolved (2) Elevated lipase: Lipase is elevated at 390s Repeat test came back negative Symptoms have resolved (3) Kidney lesion: (4) Cholelithiasis: As above without any cholecystitis We will get a hepatobiliary scan to assess gallbladder function HIDA scan is negative for any acute cholecystitis/cystic duct obstruction (5) Pancreatic cyst: Patient presenting from home with reports of acute onset right flank pain with radiation to the RUQ this morning. In the ED, CT ABD/pelvis unremarkable for acute findings. Pancreatic cyst noted - 2.4 x 2.5 cm cystic lesion of the pancreatic tail (previously 1.9cm x 2cm on CT ABD/pelvis 02/2021), pancreatic head measuring 1.9 cm (previously 2.[address] ABD/pelvis 02/2021) 10 mm right kidney lesion --will obtain ultrasound for follow-up Cholelithiasis noted and mildly elevated lipase -- ?? Mild pancreatitis and/or biliary colic -will obtain RUQ US Conservative management for now, clear liquids with pain control. Consider GI consult. Pain is resolved and denies any nausea or vomiting No more pain, nausea and or vomiting (6) ESRD (end stage renal disease): Appreciate nephrology input and recommendation Can peritoneal dialysis starting from tomorrow at home No PD today but has to be done CATARINO (7) Peritoneal dialysis catheter in situ: Recently had a peritoneal dialysis catheter placed, has not started treatment yet Creatinine at baseline Without any infection (8) Atrial fibrillation: Rate controlled on metoprolol, anticoagulated on Eliquis (9) Chronic diastolic CHF (congestive heart failure): Appears euvolemic, continue torsemide (10) DM type 2 (diabetes mellitus, type 2): Hgb A1c 7.4 08/2022 Hold oral agents and utilize NovoLog per protocol while hospitalized (11) Hyponatremia: Na+ 128, chronic, at recent baseline Sodium level is 132 (12) ANGY (iron deficiency anemia): Receives iron infusions (13) Hypothyroidism: Continue levothyroxine DVT PROPHYLAXIS On Eliquis Plan Will be discharged home this afternoon Total Time Total Time Spent Total Time Spent (In Minutes): 40 minutes Discharge Plan Discharge Items Patient Disposition: Home - Self-Care Reason For Visit: FLANK PAIN Discharge Diagnosis: Acute abdominal pain, likely secondary to pancreatitis which resolved, pancreatic cyst, cholelithiasis without acute cholecystitis, end-stage renal disease will be on peritoneal dialysis Condition on Discharge: Good Activity: Resume your previous activity Non-emergency contact: Primary Care Provider Call non-emergency contact if: you have any medication questions and your symptoms worsen Follow-up/Referrals: Pramod Damian MD [Primary Care Provider] - 09/04/22 1:00 pm (Date & Time 09/04/2022 1:00 PM Provider Pramod Damian MD Department [facility] ) Nyasia Holly CRNP [Outside Practitioners] - 09/03/22 10:30 am (Date & Time 09/03/2022 10:30 AM Provider ANA Guerrero Department Cardiology [facility] ) Diet: Dialysis Renal and Low Sodium (2gm) Addtl Attending Provider Instructions: Please take precaution to avoid falls Take your medications as advised Please a follow-up appointment with your PCP You will need to have follow-up for your pancreatic cyst and indeterminate 10 mm lesion in the right kidney You need to start you peritoneal dialysis as an outpatient as soon as possible No dialysis needed today as per district supervisor Pending Studies at Discharge: No Stand-Alone Forms: My [facility], Smoking Cessation Medications and DC Order Prescriptions: Continued allopurinol 100 mg Tablet 100 mg PO QAM aspirin 81 mg Tablet,Delayed Release (Dr/Ec) 81 mg PO DAILY multivitamin Tablet 1 tab PO DAILY levothyroxine 150 mcg Tablet 150 mcg PO DAILYBB Tradjenta 5 mg tablet 5 mg PO QAM hydroxyzine HCl 10 mg tablet 10 mg PO TID PRN (Reason: Anxiety) torsemide 100 mg tablet 100 mg PO QAM glipizide 2.5 mg tablet extended release 24hr 2.5 mg PO QAM metoprolol tartrate 25 mg tablet 25 mg PO TID Eliquis 2.5 mg tablet 2.5 mg PO BID B-complex with vitamin C Tablet 1 tab PO DAILY docusate sodium 100 mg Tablet 100 mg PO DAILY potassium chloride 20 mEq tablet extended release 40 meq PO DAILY Discharge Orders: Discharge Order (Routine); Ordered 08/31/22 Ordered By: Breezy Guajardo/Other Patient Handouts: What Are Gallstones, Treating Gallstones, Gallstones Dc Admission Data Admit Date/Time: 08/29/22 19:11 Attending Provider: Breezy Huddleston Admit Provider: Cherie Díaz Primary Care Provider: Pramod Damian Other Providers: Dakotah Díaz ; Vasiliy Calderón ; Cherie Díaz Other Interventions: Discharge Summary Assessment (RN) Last Done: 08/31/22 13:57
== END 2022-08-31 15:51 | disposition home or self-care (01) | DRG 438 ==
LOC: ED 14:04 → SUATTDRO 19:11 → 3W 19:11

== ENCOUNTER 2022-09-01 10:40 | Inpatient (IN) ==
[2022-09-01] MEDS ORDERED: ACETAMINOPHEN 1,000 MG/100 ML VIAL IV STA (11:06)
[2022-09-01] MEDS ORDERED: ONDANSETRON INJ 2 MG/ML 2 ML VIAL IV STA (11:06)
--- NOTE | 2022-09-01 11:11 | Emergency Department Note ---
Impression & Plan Acute right flank pain, RUQ abdominal pain, Renal failure, Anemia, Gall stones ED Provider Note NAME: BJORN ROSARIO AGE: 82 SEX: M : 1940 ARRIVES VIA: Walk-In INFORMANT: [Patient] ED PROVIDER(S): [Silvano Badillo MD] CHIEF COMPLAINT: Right flank/rib pain HISTORY OF PRESENT ILLNESS: The patient is an 82-year-old male who was discharged from our hospital yesterday after what was thought to be pancreatitis. Patient states that at around 3 AM, 8 hours ago, he began having severe pain in the right flank and right upper quadrant. The pain seems to come on in waves and is at times sharp. No nausea, no shortness of breath, no fever or chills. No urinary complaints, no diarrhea. The pain is quite severe and he is asking for pain medication. During the patient's stay, he was found to have gallbladder sludge but there was a negative HIDA scan result. PMHx/PSHx: See Below SOCIAL HISTORY: See Below. PHYSICAL EXAM: GENERAL: Patient is in mild distress from pain. HEENT: No acute trauma, normocephalic atraumatic, mucous membranes moist, no nasal congestion. NECK: No stridor, no adenopathy, no meningismus, trachea is midline. LUNGS: Clear to auscultation bilaterally, no wheeze, no rhonchi, breath sounds equal. HEART: Irregular rhythm, no obvious murmur, mildly tachycardic. ABDOMEN: Soft, tender to palpate the right upper quadrant and right lateral abdomen, no contusion. EXTREMITIES: No cyanosis, full range of motion of all the joints without pain or difficulty, no signs for acute trauma. NEUROLOGIC: Oriented x 3, no acute motor or sensory deficits, no focal weakness. SKIN: No rash, no jaundice, no diaphoresis. Pale. Back: No flank discomfort with percussion. DIFFERENTIAL DIAGNOSIS: Renal colic, biliary colic, acute cholecystitis, pancreatitis, intra-abdominal bleeding, musculoskeletal pain, UTI, among others. EMERGENCY DEPARTMENT COURSE/PROCEDURES: Prior/Outside records reviewed: Recent discharge summary. ECG per my interpretation: Indication was abdominal pain. The ECG shows what appears to be atrial fibrillation with a rate of 122. There is a left bundle branch block. There is diffuse ST and T wave change. No obvious concerning ST elevation. No PVCs. The QTc is 458. Compared to an ECG from 12 August 2020, the rate has increased, PVCs are no longer present. Continuous Cardiac Monitoring per my interpretation: An order was placed for continuous cardiac monitoring. The monitor shows a rate of 115 with atrial fibrillation. MEDICAL DECISION MAKING: There is no leukocytosis. The patient is anemic. He has a history of anemia and his value today is similar to recent testing. There is a normal platelet count. No worrisome coagulopathy. Sodium is low but this is baseline for the patient. The patient does have an elevation to the BUN and creatinine, this is consistent with his dialysis need. His creatinine value today is higher than it was a few days ago. No concerning liver enzyme elevation. Lipase is elevated at 246, this is lower than it was a few days ago. ECG shows atrial fibrillation, no obvious ST elevation. Cardiac enzyme testing x1 is slightly elevated. This elevation could be from cardiac injury or potentially just mismatch. Urinalysis showed some blood, no obvious infection. COVID test returned negative. Abdominal and pelvis CT shows gallstones, no bowel obstruction or bowel perforation. No urinary obstruction. The patient seemed in quite a bit of discomfort. He was given IV morphine for pain, IV Zofran for nausea. He was ordered for IV Tylenol but this was discontinued as the patient had taken Tylenol prior to arrival. The patient did feel better after the pain medication was given. I do think he requires repeat hospitalization. I am concerned about biliary colic as the cause for his symptoms. I spoke with the patient and case management, the on-call hospitalist has been consulted. DISPOSITION: Patient's presentation and findings warrant a hospital stay. Past Med/Surg History Medical History Atrial fibrillation Chronic diastolic CHF (congestive heart failure) COPD (chronic obstructive pulmonary disease) DM type 2 (diabetes mellitus, type 2) ESRD (end stage renal disease) Gout Hypertension Hypothyroidism ANGY (iron deficiency anemia) LBBB (left bundle branch block) Pancreatic cyst Peritoneal dialysis catheter in situ Prostate ca Pulmonary hypertension Spinal stenosis Thyroid cancer Surgical History S/P lumbar fusion Family History Other Diabetes Hypertension Social History Smoking Status: Former smoker Cigarettes Per Day: 10; Second Hand Exposure: No; Hx Alcohol Use: No Hx Substance Use: No Preferred Language: Indonesian Communication Ability: Effective Shipper/Receiver Required: No Beliefs That Will Affect Care: None marital status: Current Living Situation: Spouse Feels Safe at Home: Yes Assistive Devices: None Allergies Allergies Allergy/AdvReac Type Severity Reaction Status Date / Time clonidine Allergy Unknown allergic Unverified 08/29/22 18:51 to all but 1 brand carvedilol Allergy Hives Verified 08/29/22 18:51 losartan Allergy Unknown Verified 08/29/22 18:51 ANJELICA Inhibitors AdvReac Intermediate INTOLERANCE Verified 08/29/22 18:51 PER ORDER allopurinol AdvReac Intermediate severe abd Verified 08/29/22 18:51 pain Beta-Blockers AdvReac Intermediate INTOLERANCE Verified 08/29/22 18:51 (Beta-Adrenergic Bloc PER DR AERLLANO doxazosin AdvReac Intermediate INTOLERANCE Verified 08/29/22 18:[address] ARELLANO [id number]-MzC Reductase AdvReac Intermediate INTOLERANCE Verified 08/29/22 18:51 Inhibitor PER [Yjownsu-Gvx-Txy Reductase ADAN Inhibitor] citalopram AdvReac Unknown Verified 08/29/22 18:51 hydralazine AdvReac diarrhea, Verified 08/29/22 18:51 testicular pain hydrochlorothiazide AdvReac hyponatremi Verified 08/29/22 18:51 a lisinopril AdvReac Cough Verified 08/29/22 18:51 simvastatin [From Zocor] AdvReac Muscle Pain Verified 08/29/22 18:51 sitagliptin [From Januvia] AdvReac restlessnes Verified 08/29/22 18:51 s Home Meds Home Medications Medication Instructions Recorded Confirmed allopurinol 100 mg tablet 100 mg PO QAM 02/25/18 09/01/22 aspirin 81 mg tablet,delayed 81 mg PO DAILY 02/25/18 09/01/22 release levothyroxine 150 mcg tablet 150 mcg PO DAILYBB 08/12/20 09/01/22 multivitamin 1 tab PO DAILY 08/12/20 09/01/22 B-complex with vitamin C 1 tab PO DAILY 08/29/22 09/01/22 apixaban 2.5 mg tablet (Eliquis) 2.5 mg PO BID 08/29/22 09/01/22 docusate sodium 100 mg tablet 100 mg PO DAILY 08/29/22 09/01/22 glipizide 2.5 mg tablet, extended 2.5 mg PO QAM 08/29/22 09/01/22 release 24 hr hydroxyzine HCl 10 mg tablet 10 mg PO TID PRN Anxiety 08/29/22 09/01/22 linagliptin 5 mg tablet (Tradjenta) 5 mg PO QAM 08/29/22 09/01/22 metoprolol tartrate 25 mg tablet 25 mg PO TID 08/29/22 09/01/22 potassium chloride 20 mEq 40 meq PO DAILY 08/29/22 09/01/22 tablet,extended release torsemide 100 mg tablet 100 mg PO QAM 08/29/22 09/01/22 Results & Data (ED) Vital Signs Vital Signs - 24 hr 09/01/22 10:51 09/01/22 12:24 09/01/22 11:34 Temperature 36.0 C L Temperature Source Temporal Artery Scan Pulse Rate 71 100 H 117 H Pulse Rate from SpO2 Sensor 118 H Respiratory Rate 20 20 Respiratory Effort / Characteristics Non-Labored Spontaneous Respiratory Depth Normal Blood Pressure 126/78 Blood Pressure Mean 94 Pulse Oximetry 96 96 Oxygen Delivery Method Room Air Sepsis New/Unexplained Change in Mental Status N/A Sepsis Action Taken by Nursing No Action Required 09/01/22 11:40 09/01/22 12:10 09/01/22 12:20 Temperature Temperature Source Pulse Rate 118 H 114 H 99 H Pulse Rate from SpO2 Sensor 112 H 115 H Respiratory Rate 16 17 Respiratory Effort / Characteristics Respiratory Depth Blood Pressure Blood Pressure Mean Pulse Oximetry 92 95 Oxygen Delivery Method Sepsis New/Unexplained Change in Mental Status Sepsis Action Taken by Nursing 09/01/22 12:30 09/01/22 12:40 09/01/22 12:50 Temperature Temperature Source Pulse Rate 130 H 113 H 129 H Pulse Rate from SpO2 Sensor 118 H 120 H Respiratory Rate 18 17 16 Respiratory Effort / Characteristics Respiratory Depth Blood Pressure Blood Pressure Mean Pulse Oximetry 94 93 Oxygen Delivery Method Sepsis New/Unexplained Change in Mental Status Sepsis Action Taken by Nursing 09/01/22 13:00 09/01/22 13:00 09/01/22 13:10 Temperature Temperature Source Pulse Rate 96 H 101 H Pulse Rate from SpO2 Sensor Respiratory Rate 14 14 Respiratory Effort / Characteristics Respiratory Depth Blood Pressure 125/98 Blood Pressure Mean 107 Pulse Oximetry Oxygen Delivery Method Sepsis New/Unexplained Change in Mental Status Sepsis Action Taken by Nursing 09/01/22 13:20 09/01/22 13:30 Temperature Temperature Source Pulse Rate 105 H 99 H Pulse Rate from SpO2 Sensor Respiratory Rate 13 17 Respiratory Effort / Characteristics Respiratory Depth Blood Pressure Blood Pressure Mean Pulse Oximetry Oxygen Delivery Method Sepsis New/Unexplained Change in Mental Status Sepsis Action Taken by Snf Medications Current Medication List: was personally reviewed by me Laboratory Data Attestation: I reviewed the patient's lab results. 09/01/22 11:23 09/01/22 11:23 Lab Results 09/01/22 09/01/22 09/01/22 Range/Units 11:23 11:23 11:23 WBC 8.02 (4.8-10.8) K/ul RBC 3.24 L (4.70-6.10) M/uL Hgb 9.9 L (14.0-18.0) g/dl Hct 28.8 L (42.0-52.0) % MCV 88.9 (80.0-100.0) fL MCH 30.6 (25.0-34.0) pg MCHC 34.4 (32.0-36.0) g/dL RDW Std Deviation 45.2 (36.4-46.3) fL RDW Coeff of Pooja 13.8 (11.5-14.5) % Plt Count 360 (130-400) K/uL MPV 10.3 (9.4-12.4) fL Immature Gran % (Auto) 0.2 % Neut % (Auto) 78.2 % Lymph % (Auto) 9.6 % [place] % (Auto) 9.0 % Eos % (Auto) 2.5 % Baso % (Auto) 0.5 % Neut # (Auto) 6.27 (1.40-6.50) K/uL Lymph # (Auto) 0.77 L (1.2-3.4) K/uL [place] # (Auto) 0.72 H (0.11-0.59) K/uL Eos # (Auto) 0.20 (0-0.50) K/uL Baso # (Auto) 0.04 (0-0.2) K/uL Immature Gran # (Auto) 0.02 (0.01-0.20) K/uL PT 13.0 H (9.0-12.0) Seconds INR 1.2 H (0.9-1.1) APTT 31.0 (21.0-31.0) Seconds PTT Ratio 1.1 Sodium 130 L (136-145) mmol/L Potassium 4.8 (3.5-5.1) mmol/L Chloride 94 L (98-107) mmol/L Carbon Dioxide 22 (21-32) mmol/L Anion Gap 14 H (3-11) BUN 118 H (6-23) mg/dl Creatinine 6.25 H* (0.6-1.4) mg/dl Est Cr Clr Drug Dosing Not Reportable Est GFR ( Amer) 8.9 ml/min Est GFR (Non-Af Amer) 7.7 ml/min BUN/Creatinine Ratio 18.9 (10-20) Glucose 132 H (70-99(Fasting)) mg/dl Calcium 9.5 (8.6-10.3) mg/dl Total Bilirubin 0.5 (0.2-1.0) mg/dl AST 25 (13-39) U/L ALT 13 (7-52) U/L Alkaline Phosphatase 69 (34-104) U/L Troponin I High Sens 46.2 H (0-20) pg/ml Total Protein 7.8 (6.0-8.3) gm/dl Albumin 3.8 (3.4-5.0) gm/dl Globulin 4.0 (2.5-4.0) gm/dl Albumin/Globulin Ratio 1.0 (0.9-2) Lipase 246 H (11-82) U/L Urine Color Urine Appearance (Clear) Urine pH (4.5-7.5) Ur Specific [place] (1.000-1.030) Urine Protein (Negative) Urine Glucose (UA) (Negative) Urine Ketones (Negative) Urine Blood (Negative) Urine Nitrite (Negative) Urine Bilirubin (Negative) Urine Urobilinogen (Negative) Ur Leukocyte Esterase (Negative) Urine WBC (Auto) (0-5) /hpf Urine RBC (Auto) (0-4) /hpf U Hyaline Cast (Auto) (0-5) /lpf U Epithel Cells (Auto) (0-5) /lpf Urine Bacteria (Auto) (Negative) 09/01/22 Range/Units 12:10 WBC (4.8-10.8) K/ul RBC (4.70-6.10) M/uL Hgb (14.0-18.0) g/dl Hct (42.0-52.0) % MCV (80.0-100.0) fL MCH (25.0-34.0) pg MCHC (32.0-36.0) g/dL RDW Std Deviation (36.4-46.3) fL RDW Coeff of Pooja (11.5-14.5) % Plt Count (130-400) K/uL MPV (9.4-12.4) fL Immature Gran % (Auto) % Neut % (Auto) % Lymph % (Auto) % [place] % (Auto) % Eos % (Auto) % Baso % (Auto) % Neut # (Auto) (1.40-6.50) K/uL Lymph # (Auto) (1.2-3.4) K/uL [place] # (Auto) (0.11-0.59) K/uL Eos # (Auto) (0-0.50) K/uL Baso # (Auto) (0-0.2) K/uL Immature Gran # (Auto) (0.01-0.20) K/uL PT (9.0-12.0) Seconds INR (0.9-1.1) APTT (21.0-31.0) Seconds PTT Ratio Sodium (136-145) mmol/L Potassium (3.5-5.1) mmol/L Chloride (98-107) mmol/L Carbon Dioxide (21-32) mmol/L Anion Gap (3-11) BUN (6-23) mg/dl Creatinine (0.6-1.4) mg/dl Est Cr Clr Drug Dosing Est GFR ( Amer) ml/min Est GFR (Non-Af Amer) ml/min BUN/Creatinine Ratio (10-20) Glucose (70-99(Fasting)) mg/dl Calcium (8.6-10.3) mg/dl Total Bilirubin (0.2-1.0) mg/dl AST (13-39) U/L ALT (7-52) U/L Alkaline Phosphatase (34-104) U/L Troponin I High Sens (0-20) pg/ml Total Protein (6.0-8.3) gm/dl Albumin (3.4-5.0) gm/dl Globulin (2.5-4.0) gm/dl Albumin/Globulin Ratio (0.9-2) Lipase (11-82) U/L Urine Color Yellow Urine Appearance Clear (Clear) Urine pH 6.0 (4.5-7.5) Ur Specific [place] 1.010 (1.000-1.030) Urine Protein 1+ H (Negative) Urine Glucose (UA) Negative (Negative) Urine Ketones Negative (Negative) Urine Blood 2+ H (Negative) Urine Nitrite Negative (Negative) Urine Bilirubin Negative (Negative) Urine Urobilinogen Negative (Negative) Ur Leukocyte Esterase Negative (Negative) Urine WBC (Auto) 1-5 (0-5) /hpf Urine RBC (Auto) 0-4 (0-4) /hpf U Hyaline Cast (Auto) 0 (0-5) /lpf U Epithel Cells (Auto) 0-5 (0-5) /lpf Urine Bacteria (Auto) Negative (Negative) Administered Medications Discontinued Medications Morphine Sulfate (Morphine Sulfate 4 Mg/Ml 1 Ml Carp\Vial) 4 mg IV Q15M PRN PRN Reason: Pain Stop: 09/15/22 11:05 Last Admin: 09/01/22 12:45 Dose: 4 mg Documented By: Admin: 09/01/22 11:20 Dose: 4 mg Documented By: ERICK Ondansetron HCl (Ondansetron Inj 2 Mg/Ml 2 Ml Vial) 4 mg IV NOW STA Stop: 09/01/22 11:07 Last Admin: 09/01/22 11:20 Dose: 4 mg Documented By: ERICK Imaging Data Radiologist's Impression: Abdomen/Pelvis CT 09/01/22 11:[address] WITHOUT CONTRAST CT DOSE: 912.68 mGy.cm HISTORY: right flank pain TECHNIQUE: Multiaxial CT images of the abdomen and pelvis were performed without contrast. A dose lowering technique was utilized adhering to the principles of ALARA. COMPARISON STUDY: Abdomen and pelvis CT 08/29/2022. FINDINGS: Moderate hemidiaphragmatic elevation. Cardiomegaly with coronary artery calcifications. Trace pleural effusions with bibasilar atelectasis again noted. No pneumatosis or pneumoperitoneum. Unremarkable spleen and adrenal glands. Mild cholelithiasis. 2.4 x 2.5 cm cystic lesion of the pancreatic tail with adjacent peripheral coarse calcifications measuring up to 6 mm. Additional cystic lesion of the pancreatic head measuring 1.9 cm. These foci may represent sidebranch IPMN's. Mild periportal edema/inflammation, unchanged. A subcentimeter hypodense lesion within the po sterior segment of the right hepatic lobe. This is incompletely characterized on this noncontrast study.. Cysts of the bilateral kidneys. A 3.6 cm cyst within the superior pole right kidney demonstrates mild layering milk of calcium. Slightly hyperdense 10 mm lesion within the right kidney on image 226 again noted. No renal or ureteral calculi or hydronephrosis. Prostamegaly. Urinary bladder wall thickening with mild distention. Atherosclerosis of the aorta without aneurysm. No lymphadenopathy identified. No bowel obstruction or bowel wall thickening. Colonic diverticulosis. Normal appendix. Tiny fat filled umbilical hernia. A catheter is noted which terminates within the dependent pelvis. Degenerative changes of the spine, pelvis and hips. Posterior interbody moiz and screw fusion hardware L2-S1. No evidence of hardware complication. IMPRESSION: 1. No bowel wall thickening or obstruction. 2. Cardiomegaly with trace pleural effusions and mild bibasilar atelectasis, unchanged. 3. Indeterminate 10 mm lesion of the interpolar right kidney again noted. Correlation with a nonemergent follow-up renal ultrasound recommended. 4. No renal or ureteral stones. No hydronephrosis. 5. Cholelithiasis. 6. Colonic diverticulosis. 7. Mild nonspecific periportal edema/inflammation again noted. Recommend correlation with LFTs. 8. Additional findings as above. ACT 112: Negative or not required by law. Electronically signed by: Jaswant Nino M.D. 09/01/2022 12:25 PM Chest X-Ray 09/01/22 11:07 XR chest 1V portable CLINICAL HISTORY: right flank pain TECHNIQUE: Single frontal radiograph of the chest was obtained. Comparison: Comparison is made to chest radiograph 08/12/2020 FINDINGS: No lines and tubes are seen. Cardiomegaly is noted. Elevation of the right hemidiaphragm is seen. No evidence of pleural effusion or pneumothorax. IMPRESSION: No acute chest disease. Redemonstration of elevation of the right hemidiaphragm. ACT 112: Negative or not required by law. Electronically signed by: Beny Bowser M.D. 09/01/2022 11:32 AM Discharge Plan Visit Data Chief Complaint: Rib Injury/Pain Stated Complaint: RIGHT SIDED RIB CAGE PAIN ED Provider: Silvano Badillo Discharge Problem: Acute right flank pain, RUQ abdominal pain, Renal failure, Anemia, Gall stones Patient Disposition: Admitted As Inpatient Condition: Fair Discharge Instructions Interventions: ED Discharge Assessment Last Done: 09/01/22 13:41
[2022-09-01] MEDS: MoRPHine SULFATE 4 MG/ML 1 ML CARP\\VIAL IV PRN ×2 (11:20→12:45)
--- NOTE | 2022-09-01 11:34 | XRay Report ---
XR chest 1V portable CLINICAL HISTORY: right flank pain TECHNIQUE: Single frontal radiograph of the chest was obtained. Comparison: Comparison is made to chest radiograph 08/12/2020 FINDINGS: No lines and tubes are seen. Cardiomegaly is noted. Elevation of the right hemidiaphragm is seen. No evidence of pleural effusion or pneumothorax. IMPRESSION: No acute chest disease. Redemonstration of elevation of the right hemidiaphragm. ACT 112: Negative or not required by law. Electronically signed by: Beny Bowser M.D. 09/01/2022 11:32 AM
[2022-09-01 11:58] LABS: Basophils # (auto) 0.04 K/uL (0-0.2); Basophils % (auto) 0.5 %; Eosinophils % (auto) 2.5 %; Hematocrit (blood only) 28.8 % (42.0-52.0); Hemoglobin 9.9 g/dl (14.0-18.0); Immature Granulocytes # (auto) 0.02 K/uL (0.01-0.20); Immature Granulocytes % (auto) 0.2 %; Lymphocytes # (auto) 0.77 K/uL (1.2-3.4); Lymphocytes % (auto) 9.6 %; Mean Corpuscular Hemoglobin 30.6 pg (25.0-34.0); Mean Corpuscular Hgb Conc 34.4 g/dL (32.0-36.0); Mean Corpuscular Volume 88.9 fL (80.0-100.0); Mean Platelet Volume 10.3 fL (9.4-12.4); Monocytes # (auto) 0.72 K/uL (0.11-0.59); Neutrophils # (auto) 6.27 K/uL (1.40-6.50); Neutrophils % (auto) 78.2 %; Platelet Count 360 K/uL (130-400); RDW Coefficient of Variation 13.8 % (11.5-14.5); RDW Standard Deviation 45.2 fL (36.4-46.3); Red Blood Count 3.24 M/uL (4.70-6.10); White Blood Count 8.02 K/ul (4.8-10.8)
[2022-09-01 12:12] LABS: Alanine Aminotransferase 13 U/L (7-52); Albumin Level 3.8 gm/dl (3.4-5.0); Alkaline Phosphatase 69 U/L (34-104); Anion Gap 14 (3-11); Aspartate Aminotransferase 25 U/L (13-39); BUN Creatinine Ratio 18.9 (10-20); Bilirubin,Total 0.5 mg/dl (0.2-1.0); Blood Urea Nitrogen 118 mg/dl (6-23); Calcium 9.5 mg/dl (8.6-10.3); Carbon Dioxide 22 mmol/L (21-32); Chloride 94 mmol/L (98-107); Est GFR (African American) 8.9 ml/min; Est GFR (Non-African American) 7.7 ml/min; Glucose 132 mg/dl (70-99(Fasting)); Lipase 246 U/L (11-82); Potassium 4.8 mmol/L (3.5-5.1); Sodium 130 mmol/L (136-145); Total Protein 7.8 gm/dl (6.0-8.3)
[2022-09-01 12:16] LABS: Troponin I High Sensitivity 46.2 pg/ml (0-20)
--- NOTE | 2022-09-01 12:26 | CT Scan Report ---
ABDOMEN AND PELVIS CT WITHOUT CONTRAST CT DOSE: 912.68 mGy.cm HISTORY: right flank pain TECHNIQUE: Multiaxial CT images of the abdomen and pelvis were performed without contrast. A dose lo wering technique was utilized adhering to the principles of ALARA. COMPARISON STUDY: Abdomen and pelvis CT 08/29/2022. FINDINGS: Moderate hemidiaphragmatic elevation. Cardiomegaly with coronary artery calcifications. Tra ce pleural effusions with bibasilar atelectasis again noted. No pneumatosis or pneumoperitoneum. Unremarkable spleen and adrenal glands. Mild cholelithiasis. 2.4 x 2.5 cm cystic lesion of the pancre atic tail with adjacent peripheral coarse calcifications measuring up to 6 mm. Additional cystic lesi on of the pancreatic head measuring 1.9 cm. These foci may represent sidebranch IPMN's. Mild periport al edema/inflammation, unchanged. A subcentimeter hypodense lesion within the posterior segment of th e right hepatic lobe. This is incompletely characterized on this noncontrast study.. Cysts of the flavia ateral kidneys. A 3.6 cm cyst within the superior pole right kidney demonstrates mild layering milk o f calcium. Slightly hyperdense 10 mm lesion within the right kidney on image 226 again noted. No pushpa l or ureteral calculi or hydronephrosis. Prostamegaly. Urinary bladder wall thickening with mild dist ention. Atherosclerosis of the aorta without aneurysm. No lymphadenopathy identified. No bowel obstruction or bowel wall thickening. Colonic diverticulosis. Normal appendix. Tiny fat fill ed umbilical hernia. A catheter is noted which terminates within the dependent pelvis. Degenerative c hanges of the spine, pelvis and hips. Posterior interbody moiz and screw fusion hardware L2-S1. No jarrod dence of hardware complication. IMPRESSION: 1. No bowel wall thickening or obstruction. 2. Cardiomegaly with trace pleural effusions and mild bibasilar atelectasis, unchanged. 3. Indeterminate 10 mm lesion of the interpolar right kidney again noted. Correlation with a nonemerg ent follow-up renal ultrasound recommended. 4. No renal or ureteral stones. No hydronephrosis. 5. Cholelithiasis. 6. Colonic diverticulosis. 7. Mild nonspecific periportal edema/inflammation again noted. Recommend correlation with LFTs. 8. Additional findings as above. ACT 112: Negative or not required by law. Electronically signed by: Jaswant iNno M.D. 09/01/2022 12:25 PM
[2022-09-01 12:27] LABS: Appearance Urine Clear (Clear); Bacteria Urine Automated Negative (Negative); Bilirubin Urine Negative (Negative); Blood Urine 2+ (Negative); Cast Urine Automated 0 /lpf (0-5); Color Urine Yellow; Epithelial Cell Urine Auto 0-5 /lpf (0-5); Glucose Urine UA Negative (Negative); Ketones Urine Negative (Negative); Leukocyte Esterase Urine Negative (Negative); Nitrite Urine Negative (Negative); Protein Urine 1+ (Negative); RBC Urine Automated 0-4 /hpf (0-4); Urobilinogen Urine Negative (Negative)
[2022-09-01 12:27] LABS: INR 1.2 (0.9-1.1); Partial Thromboplastin Ratio 1.1
--- NOTE | 2022-09-01 13:30 | History & Physical Report ---
Date of Service September 01, 2022 Assessment & Plan (1) Acute right flank pain: (2) Elevated lipase: (3) Cholelithiasis: (4) Kidney lesion: (5) Pancreatic cyst: (6) ANGY (iron deficiency anemia): (7) ESRD (end stage renal disease): (8) Peritoneal dialysis catheter in situ: (9) Chronic diastolic CHF (congestive heart failure): (10) Atrial fibrillation: (11) Hypothyroidism: (12) DM type 2 (diabetes mellitus, type 2): (13) Hyponatremia: Plan This is an 82-year-old male with PMH DM type II, hypothyroidism, pancreatic cyst, chronic diastolic CHF, atrial fibrillation on Eliquis, HTN, LBBB, ESRD with peritoneal dialysis catheter in place, history of thyroid cancer, history of prostate cancer, and other problems listed below who presents to the ED with recurrent right flank pain. Recurrent R flank pain Cholelithiasis Elevated lipase Admitted earlier this week with similar pain - liver ultrasound showed gall bladder sludge, HIDA scan was negative for any acute cholecystitis/cystic duct obstruction Pain recurred last evening after eating broth based soup for dinner, returned to ED today Pain resolved with IV morphine in ED, ADAT Afebrile, no leukocytosis, lipase 246 (previously 390s) CT abd/pelvis with no bowel wall thickening or obstruction, evidence of cholelithiasis, colonic diverticulosis, mild nonspecific periportal edema/inflammation again noted Consult GI ESRD (end stage renal disease) Peritoneal dialysis catheter in place, was due to start today prior to admission Cr 6.25 Appreciate nephrology input and recommendation Atrial fibrillation HR 103, given missed AM dose of Lopressor in ED, anticoagulated on Eliquis Chronic diastolic CHF (congestive heart failure) Appears euvolemic, continue torsemide DM type 2 (diabetes mellitus, type 2) Hgb A1c 7.4 08/2022 Hold oral agents and utilize NovoLog per protocol while hospitalized Hyponatremia Na 130, chronic, at recent baseline Continue to monitor ANGY (iron deficiency anemia) Receives iron infusions Hypothyroidism Continue levothyroxine DVT Ppx: Eliquis Code status: DNR per discussion PCP: Nati Dispo: Admitted to med/surg Patient seen in collaboration with Dr. Merrill. Please see addendum. I spent a total of 75 minutes coordinating, documenting, and providing care for this patient excluding time spent in the performance of separately billed services. History of Present Illness Chief Complaint: abd pain Primary Care Provider: Pramod Damian MD This is an 82-year-old male with PMH DM type II, hypothyroidism, pancreatic cyst, chronic diastolic CHF, atrial fibrillation on Eliquis, HTN, LBBB, ESRD with peritoneal dialysis catheter in place, history of thyroid cancer, history of prostate cancer, and other problems listed below who presents to the ED with recurrent right flank pain. Was discharged yesterday with similar symptoms that had resolved. Workup earlier this week showed gall bladder sludge, HIDA scan was negative for any acute cholecystitis/cystic duct obstruction. Tolerated advanced diet in hospital and was discharged home. Ate soup with beef and vegetables last evening and then pain recurred later that evening. Pain is still a jabbing, intermittent pain in epigastric area extending to R flank. Episodes last for 30 seconds and then slightly improve before they recur again. Pain worsened last night around midnight and continued all night. Pain is 10/10 when present but currently does not have pain. No associated F/C, nausea or vomiting. No lightheadedness, CP, SOB, dysuria, hematuria, diarrhea. No bowel movement in the past few days. Due to start HD last week but was admitted to [facility]. Then supposed to start today but directed to ED for further evaluation. Allergies Allergy/AdvReac Type Severity Reaction Status Date / Time clonidine Allergy Unknown allergic Unverified 08/29/22 18:51 to all but 1 brand carvedilol Allergy Hives Verified 08/29/22 18:51 losartan Allergy Unknown Verified 08/29/22 18:51 ANJELICA Inhibitors AdvReac Intermediate INTOLERANCE Verified 08/29/22 18:51 PER MD ORDER allopurinol AdvReac Intermediate severe abd Verified 08/29/22 18:51 pain Beta-Blockers AdvReac Intermediate INTOLERANCE Verified 08/29/22 18:51 (Beta-Adrenergic Bloc PER DR ARELLANO doxazosin AdvReac Intermediate INTOLERANCE Verified 08/29/22 18:[address] ARELLANO Zqypubd-KZN-OkZ Reductase AdvReac Intermediate INTOLERANCE Verified 08/29/22 18:51 Inhibitor PER [Fztsmbw-Sqc-Cyx Reductase ADAN Inhibitor] citalopram AdvReac Unknown Verified 08/29/22 18:51 hydralazine AdvReac diarrhea, Verified 08/29/22 18:51 testicular pain hydrochlorothiazide AdvReac hyponatremi Verified 08/29/22 18:51 a lisinopril AdvReac Cough Verified 08/29/22 18:51 simvastatin [From Zocor] AdvReac Muscle Pain Verified 08/29/22 18:51 sitagliptin [From Januvia] AdvReac restlessnes Verified 08/29/22 18:51 s Home Medications Medication Instructions Recorded Confirmed Type allopurinol 100 mg tablet 100 mg PO QAM 02/25/18 09/01/22 History aspirin 81 mg tablet,delayed 81 mg PO DAILY 02/25/18 09/01/22 History release levothyroxine 150 mcg tablet 150 mcg PO DAILYBB 08/12/20 09/01/22 History multivitamin 1 tab PO DAILY 08/12/20 09/01/22 History B-complex with vitamin C 1 tab PO DAILY 08/29/22 09/01/22 History apixaban 2.5 mg tablet (Eliquis) 2.5 mg PO BID 08/29/22 09/01/22 History docusate sodium 100 mg tablet 100 mg PO DAILY 08/29/22 09/01/22 History glipizide 2.5 mg tablet, extended 2.5 mg PO QAM 08/29/22 09/01/22 History release 24 hr hydroxyzine HCl 10 mg tablet 10 mg PO TID PRN Anxiety 08/29/22 09/01/22 History linagliptin 5 mg tablet (Tradjenta) 5 mg PO QAM 08/29/22 09/01/22 History metoprolol tartrate 25 mg tablet 25 mg PO TID 08/29/22 09/01/22 History potassium chloride 20 mEq 40 meq PO DAILY 08/29/22 09/01/22 History tablet,extended release torsemide 100 mg tablet 100 mg PO QAM 08/29/22 09/01/22 History Past Med/Surg History Medical History Atrial fibrillation Chronic diastolic CHF (congestive heart failure) COPD (chronic obstructive pulmonary disease) DM type 2 (diabetes mellitus, type 2) ESRD (end stage renal disease) Gout Hypertension Hypothyroidism ANGY (iron deficiency anemia) LBBB (left bundle branch block) Pancreatic cyst Peritoneal dialysis catheter in situ Prostate ca Pulmonary hypertension Spinal stenosis Thyroid cancer Surgical History S/P lumbar fusion Family History Other Diabetes Hypertension Social History Smoking Status: Former smoker Cigarettes Per Day: 10; Second Hand Exposure: No; Hx Alcohol Use: No Hx Substance Use: No Preferred Language: Honduran Communication Ability: Effective Personnel Director Required: No Beliefs That Will Affect Care: None marital status: Current Living Situation: Spouse Feels Safe at Home: Yes Assistive Devices: None Review of Systems Review of Systems: At least ten systems reviewed and negative except as noted in the HPI. Physical Exam Physical Exam: Please see Dr. Merrill's addendum for physical exam. Results & Data Results & Data Vital Signs (Past 12 Hours) Vital Signs Temp Pulse Resp BP Pulse Ox O2 Del Method 09/01/22 13:10 101 H 14 09/01/22 13:00 96 H 14 09/01/22 13:00 125/98 09/01/22 12:50 129 H 16 09/01/22 12:40 113 H 17 93 09/01/22 12:30 130 H 18 94 09/01/22 12:20 99 H 17 95 09/01/22 12:10 114 H 09/01/22 11:40 118 H 16 92 09/01/22 11:34 117 H 20 96 09/01/22 12:24 100 H 09/01/22 10:51 36.0 C L 71 20 126/78 96 Room Air Laboratory Results Short CBC 09/01/22 Range/Units 11:23 WBC 8.02 (4.8-10.8) K/ul Hgb 9.9 L (14.0-18.0) g/dl Hct 28.8 L (42.0-52.0) % Plt Count 360 (130-400) K/uL BMP 09/01/22 11:23 Sodium 130 L Potassium 4.8 Chloride 94 L Carbon Dioxide 22 BUN 118 H Creatinine 6.25 H* Glucose 132 H Calcium 9.5 Liver Function 09/01/22 Range/Units 11:23 Total Bilirubin 0.5 (0.2-1.0) mg/dl AST 25 (13-39) U/L ALT 13 (7-52) U/L Alkaline Phosphatase 69 (34-104) U/L Albumin 3.8 (3.4-5.0) gm/dl Urine 09/01/22 Range/Units 12:10 Urine Color Yellow Urine Appearance Clear (Clear) Urine pH 6.0 (4.5-7.5) Ur Specific [place] 1.010 (1.000-1.030) Urine Protein 1+ H (Negative) Urine Glucose (UA) Negative (Negative) Diagnostic Findings Abdomen/Pelvis CT 09/01/22 11:[address] WITHOUT CONTRAST CT DOSE: 912.68 mGy.cm HISTORY: right flank pain TECHNIQUE: Multiaxial CT images of the abdomen and pelvis were performed without contrast. A dose lowering technique was utilized adhering to the principles of ALARA. COMPARISON STUDY: Abdomen and pelvis CT 08/29/2022. FINDINGS: Moderate hemidiaphragmatic elevation. Cardiomegaly with coronary artery calcifications. Trace pleural effusions with bibasilar atelectasis again noted. No pneumatosis or pneumoperitoneum. Unremarkable spleen and adrenal glands. Mild cholelithiasis. 2.4 x 2.5 cm cystic lesion of the pancreatic tail with adjacent peripheral coarse calcifications measuring up to 6 mm. Additional cystic lesion of the pancreatic head measuring 1.9 cm. These foci may represent sidebranch IPMN's. Mild periportal edema/inflammation, unchanged. A subcentimeter hypodense lesion within the posterior segment of the right hepatic lobe. This is incompletely characterized on this noncontrast study.. Cysts of the bilateral kidneys. A 3.6 cm cyst within the superior pole right kidney demonstrates mild layering milk of calcium. Slightly hyperdense 10 mm lesion within the right kidney on image 226 again noted. No renal or ureteral calculi or hydronephrosis. Prostamegaly. Urinary bladder wall thickening with mild distention. Atherosclerosis of the aorta without aneurysm. No lymphadenopathy identified. No bowel obstruction or bowel wall thickening. Colonic diverticulosis. Normal appendix. Tiny fat filled umbilical hernia. A catheter is noted which terminates within the dependent pelvis. Degenerative changes of the spine, pelvis and hips. Posterior interbody moiz and screw fusion hardware L2-S1. No evidence of hardware complication. IMPRESSION: 1. No bowel wall thickening or obstruction. 2. Cardiomegaly with trace pleural effusions and mild bibasilar atelectasis, unchanged. 3. Indeterminate 10 mm lesion of the interpolar right kidney again noted. Correlation with a nonemergent follow-up renal ultrasound recommended. 4. No renal or ureteral stones. No hydronephrosis. 5. Cholelithiasis. 6. Colonic diverticulosis. 7. Mild nonspecific periportal edema/inflammation again noted. Recommend correlation with LFTs. 8. Additional findings as above. ACT 112: Negative or not required by law. Electronically signed by: Jaswant Nino M.D. 09/01/2022 12:25 PM Chest X-Ray 09/01/22 11:07 XR chest 1V portable CLINICAL HISTORY: right flank pain TECHNIQUE: Single frontal radiograph of the chest was obtained. Comparison: Comparison is made to chest radiograph 08/12/2020 FINDINGS: No lines and tubes are seen. Cardiomegaly is noted. Elevation of the right hemidiaphragm is seen. No evidence of pleural effusion or pneumothorax. IMPRESSION: No acute chest disease. Redemonstration of elevation of the right hemidiaphragm. ACT 112: Negative or not required by law. Electronically signed by: Beny Bowser M.D. 09/01/2022 11:32 AM Supervising Physician Co-Signing Physician Notes Pt is a 82 y/o M with hx of ESRD (yet to start dialysis- have PD access), DMII, Afib on Coumadin, HFpEF, HTN, Hypothyroidism, recent hospital admission for RUQ (dx with Gallbladder Sludge) admitted for recurrent abd pain. PE: NAD (pain resolved after getting morphine), Well developed Lungs: CTA, no wheezing or crackles Cardiac: In afib, possible systolic murmur Abd: PD access in place, soft, NT, normal BS MSK: no LE edema Psych: AAOx3, normal affect A/P: Recurrent RUQ/ R mid abd pain: -CT abd: no sign of pancreatitis or cholecystitis but presence of cholelithiasis -pain responded well to morphine therefore will do prn morphine -lipase level is normal -will consult GI again (HIDA scan was unremarkable previously) -LFTs are normal -depending on the symptoms improvement will decide surgical eval -fat free diet: soft diet for now ESRD with PD access: -has not started dialysis yet - will consult Nephro: pt want to start dialysis in the hospital - Renal diet Afib: - HR is slightly elevated but pt is not sure whether he took his AM metoprolol dose ---- will given the AM dose now and continue the TID dose Other chronic conditions: plan as above Agree with A/P by Kajal Caraballo PA-C
[2022-09-01] MEDS ORDERED: METOPROLOL TARTRATE 25 MG TAB PO STA (13:39)
[2022-09-01] MEDS ORDERED: ONDANSETRON INJ 2 MG/ML 2 ML VIAL IV PRN (13:45)
[2022-09-01] MEDS ORDERED: ACETAMINOPHEN 325 MG TAB PO PRN (13:45)
[2022-09-01] MEDS ORDERED: POLYETHYLENE (MIRALAX) 17 GM PACK PO PRN (13:45)
[2022-09-01] MEDS ORDERED: hydrOXYzine HCl 10 MG TAB PO PRN (14:37)
[2022-09-01] MEDS ORDERED: MoRPHine SULFATE 4 MG/ML 1 ML CARP\\VIAL IV PRN (14:51)
[2022-09-01] MEDS ORDERED: GLUCAGON FOR INJ 1 MG VIAL SQ PRN (14:53)
[2022-09-01] MEDS ORDERED: GLUCOSE 10 TAB/TUBE PO PRN (14:53)
[2022-09-01] MEDS ORDERED: CARBOHYDRATES FOR HYPOGLYCEMIA PO PRN (14:53)
[2022-09-01] MEDS ORDERED: DEXTROSE 50% 50 ML SYRINGE IV PRN (14:53)
[2022-09-01] MEDS ORDERED: GLUCOSE 40% GEL 15 GM TUBE PO PRN (14:53)
--- NOTE | 2022-09-01 15:48 | Electrocardiogram Report ---
Test Reason : Blood Pressure : / mmHG Vent. Rate : 122 BPM Atrial Rate : 125 BPM P-R Int : 000 ms QRS Dur : 136 ms QT Int : 322 ms P-R-T Axes : 000 -11 161 degrees QTc Int : 458 ms Atrial fibrillation with rapid ventricular response Left bundle branch block Abnormal ECG When compared with ECG of 12-AUG-2020 00:10, Atrial fibrillation has replaced Sinus rhythm Nonspecific T wave abnormality now evident in Inferior leads T wave inversion now evident in Lateral leads Confirmed by Miquel Joe ([id number]) on 09/01/2022 3:48:18 PM Referred By: REFERRED SELF Confirmed By:Miquel Joe
[2022-09-01] MEDS: INSULIN ASPART PER UNIT CHARGE SC SCH ×2 (18:03→21:00)
[2022-09-01] MEDS: METOPROLOL TARTRATE 25 MG TAB PO SCH (22:44)
[2022-09-01] MEDS: APIXABAN 2.5 MG TAB PO SCH (22:44)
[2022-09-02] MEDS: LEVOTHYROXINE SODIUM 150 MCG TABLET PO SCH (06:07)
[2022-09-02 06:58] LABS: Hematocrit (blood only) 28.6 % (42.0-52.0); Hemoglobin 9.8 g/dl (14.0-18.0); Mean Corpuscular Hemoglobin 30.7 pg (25.0-34.0); Mean Corpuscular Hgb Conc 34.3 g/dL (32.0-36.0); Mean Corpuscular Volume 89.7 fL (80.0-100.0); Mean Platelet Volume 9.9 fL (9.4-12.4); Platelet Count 344 K/uL (130-400); RDW Coefficient of Variation 13.8 % (11.5-14.5); RDW Standard Deviation 44.6 fL (36.4-46.3); Red Blood Count 3.19 M/uL (4.70-6.10); White Blood Count 7.19 K/ul (4.8-10.8)
[2022-09-02] MEDS: APIXABAN 2.5 MG TAB PO SCH ×2 (08:16→20:15)
[2022-09-02] MEDS: METOPROLOL TARTRATE 25 MG TAB PO SCH ×3 (08:17→20:15)
[2022-09-02] MEDS: allopurinoL 100 MG TAB PO SCH (08:18)
[2022-09-02] MEDS: INSULIN ASPART PER UNIT CHARGE SC SCH ×4 (08:32→21:07)
[2022-09-02 08:35] LABS: Albumin Globulin Ratio 0.9 (0.9-2); Albumin Level 3.6 gm/dl (3.4-5.0); BUN Creatinine Ratio 18.3 (10-20); Bilirubin,Total 0.5 mg/dl (0.2-1.0); Calcium 9.4 mg/dl (8.6-10.3); Creatinine Clr Calc Pharmacy 9.2 ml/min; Est GFR (African American) 8.4 ml/min; Est GFR (Non-African American) 7.3 ml/min; Globulin 3.8 gm/dl (2.5-4.0); Potassium 4.9 mmol/L (3.5-5.1); Total Protein 7.4 gm/dl (6.0-8.3)
[2022-09-02] MEDS ORDERED: POTASSIUM CHLORIDE CRTAB 20 MEQ TABCR PO SCH (09:00)
[2022-09-02] MEDS ORDERED: TORSEMIDE 100 MG TAB PO SCH (09:00)
[2022-09-02] MEDS ORDERED: ASPIRIN 81 MG ECTAB PO SCH (09:00)
[2022-09-02] MEDS ORDERED: DOCUSATE SODIUM 100 MG CAP PO SCH (09:00)
[2022-09-02] MEDS ORDERED: MULTIVITAMIN TAB PO SCH (09:00)
[2022-09-02] MEDS: POLYETHYLENE (MIRALAX) 17 GM PACK PO SCH ×2 (12:15→12:40)
--- NOTE | 2022-09-02 12:25 | Gastrointestinal Consultation ---
Date of Consultation September 02, 2022 Assessment & Plan (1) Acute right flank pain: Patient is a 82 years old male seen for right flank pain. Admitted early last week for similar symptoms with work-up showing cholelithiasis with sludge but normal LFTs and normal HIDA scan. His lipase is mildly elevated but likely related to his ESRD status rather than pancreatitis. CT during this admission showed 2 cm pancreatic tail cystic lesion without any acute changes otherwise. Suspect that his pain may be musculoskeletal related rather than of GI etiology. - Miralax 17g daily for constipation - Diet as tolerated - No indication for GI workup, but I spoke w pt about possible OP workup for pancreas lesions such as with CT pancreas vs OP EUS - Spoke w Nephrology regarding trial use of muscle relaxant, however given his ESRD status this should be avoided. Can consider topical analgesics such as Lidoderm - GI to sign off; pls recall prn Supervising Physician Co-Signing Physician Notes Attg add: Pt admit with flank pain that is fleeting and not clearly assoc with PO intake. He is tender in right flank. Suspect MSK pain, do not anticipate further GI w/u. Regarding panc cysts - pt is a poor surg candidate, would not pursue further w/u at this time -- d/w pt who agrees. History of Present Illness Reason for Consultation: Right flank pain Requesting Physician: Dr. Breezy Huddleston Attending Physician: Dr. Kristan Hamilton History of Present Illness Pt is a 82 you male w PMHx of DM II, hypothyroidism, pancreatic cyst, chronic diastolic CHF, atrial fibrillation on Eliquis, HTN, LBBB, ESRD with peritoneal dialysis catheter in place, history of thyroid cancer, history of prostate cancer, and other problems listed below who presents to the ED yesterday with recurrent right flank pain. He was recently hospitalized with the same symptoms earlier last week. Work-up had included ultrasound, which showed gallbladder sludge but normal HIDA scan. Lipase mildly elevated but may be related to his ESRD. He was discharged feeling better but came back overnight with similar symptoms. Patient reports that he gets the right flank pain when he is sitting up but also when he tries to arc his back. Pain is noted to be jabbing and sharp-like. Usually it improves with heat application. He does not seem to have any associated chest pain, shortness of breath, abdominal pain, nausea or vomiting with the pain. He has not had bowel movements for several days and does feel constipated, takes a stool softener at home. Work-up on this admission showed normal LFTs, mild lipase elevation at 247. CT abdomen and pelvis showed 2 cm pancreatic tail cystic lesion otherwise no acute changes. EGD 2013 - reflux changes Colonoscopy 2006 - diverticulosis Allergies Allergy/AdvReac Type Severity Reaction Status Date / Time clonidine Allergy Unknown allergic Unverified 08/29/22 18:51 to all but 1 brand carvedilol Allergy Hives Verified 08/29/22 18:51 losartan Allergy Unknown Verified 08/29/22 18:51 ANJELICA Inhibitors AdvReac Intermediate INTOLERANCE Verified 08/29/22 18:51 PER MD ORDER allopurinol AdvReac Intermediate severe abd Verified 08/29/22 18:51 pain Beta-Blockers AdvReac Intermediate INTOLERANCE Verified 08/29/22 18:51 (Beta-Adrenergic Bloc PER DR HUDDLESTON doxazosin AdvReac Intermediate INTOLERANCE Verified 08/29/22 18:[address] HUDDLESTON Tvnznmk-YPS-FtB Reductase AdvReac Intermediate INTOLERANCE Verified 08/29/22 18:51 Inhibitor PER [Gsyxhob-Ygz-Quq Reductase ADAN Inhibitor] citalopram AdvReac Unknown Verified 08/29/22 18:51 hydralazine AdvReac diarrhea, Verified 08/29/22 18:51 testicular pain hydrochlorothiazide AdvReac hyponatremi Verified 08/29/22 18:51 a lisinopril AdvReac Cough Verified 08/29/22 18:51 simvastatin [From Zocor] AdvReac Muscle Pain Verified 08/29/22 18:51 sitagliptin [From Januvia] AdvReac restlessnes Verified 08/29/22 18:51 s Home Medications Medication Instructions Recorded Confirmed Type allopurinol 100 mg tablet 100 mg PO QAM 02/25/18 09/03/22 History aspirin 81 mg tablet,delayed 81 mg PO DAILY 02/25/18 09/03/22 History release levothyroxine 150 mcg tablet 150 mcg PO DAILYBB 08/12/20 09/03/22 History multivitamin 1 tab PO DAILY 08/12/20 09/03/22 History B-complex with vitamin C 1 tab PO DAILY 08/29/22 09/03/22 History apixaban 2.5 mg tablet (Eliquis) 2.5 mg PO BID 08/29/22 09/03/22 History docusate sodium 100 mg tablet 100 mg PO DAILY 08/29/22 09/03/22 History glipizide 2.5 mg tablet, extended 2.5 mg PO QAM 08/29/22 09/03/22 History release 24 hr hydroxyzine HCl 10 mg tablet 10 mg PO TID PRN Anxiety 08/29/22 09/03/22 History linagliptin 5 mg tablet (Tradjenta) 5 mg PO QAM 08/29/22 09/03/22 History metoprolol tartrate 25 mg tablet 25 mg PO TID 08/29/22 09/03/22 History potassium chloride 20 mEq 40 meq PO DAILY 08/29/22 09/03/22 History tablet,extended release torsemide 100 mg tablet 100 mg PO QAM 08/29/22 09/03/22 History polyethylene glycol 3350 17 gram 17 g PO DAILY #14 ea 09/02/22 09/03/22 Rx oral powder packet (Miralax) Patient History Medical History Atrial fibrillation Chronic diastolic CHF (congestive heart failure) COPD (chronic obstructive pulmonary disease) DM type 2 (diabetes mellitus, type 2) ESRD (end stage renal disease) Gout Hypertension Hypothyroidism ANGY (iron deficiency anemia) LBBB (left bundle branch block) Pancreatic cyst Peritoneal dialysis catheter in situ Prostate ca Pulmonary hypertension Spinal stenosis Thyroid cancer Surgical History S/P lumbar fusion Family History Other Diabetes Hypertension Social History Smoking Status: Former smoker Cigarettes Per Day: 10; Second Hand Exposure: No; Do You Dip or Chew Tobacco: Yes; Hx Alcohol Use: No Hx Substance Use: No Preferred Language: Jamaican Communication Ability: Effective Suppression Crew Leader Required: No Beliefs That Will Affect Care: None marital status: Current Living Situation: Spouse Feels Safe at Home: Yes Safety Concerns: Feels Safe At This Time Assistive Devices: Walker Review of Systems Review of Systems: All systems reviewed & are unremarkable except as noted in HPI & below Physical Exam Constitutional: WD/WN, vitals as above well groomed, cooperative and comfortable Eyes: PERRL, conjunctivae normal, anicteric sclerae ENMT: external ear and nose normal, oropharynx normal Respiratory: normal respiratory effort, lungs clear to auscultation Cardiovascular: RRR, no murmur, no edema Gastrointestinal (Abdomen): normal bowel sounds, soft, nontender, no hepatosplenomegaly Musculoskeletal: No CVA tenderness Skin: no rashes, warm and dry no jaundice Psychiatric: A+Ox3, euthymic affect Lymphatic: no lymphedema Results & Data Vital Signs (Past 12 Hours) Vital Signs Temp Pulse Resp BP Pulse Ox O2 Del Method 09/02/22 07:47 36.6 C 105 H 16 116/77 96 Room Air
--- NOTE | 2022-09-02 15:16 | Hospitalist Progress Note ---
Date of Service September 02, 2022 Assessment & Plan (1) Acute right flank pain: (2) Elevated lipase: (3) Cholelithiasis: (4) Kidney lesion: (5) Pancreatic cyst: (6) ANGY (iron deficiency anemia): (7) ESRD (end stage renal disease): (8) Peritoneal dialysis catheter in situ: (9) Chronic diastolic CHF (congestive heart failure): (10) Atrial fibrillation: (11) Hypothyroidism: (12) DM type 2 (diabetes mellitus, type 2): (13) Hyponatremia: Plan This is an 82-year-old male with PMH DM type II, hypothyroidism, pancreatic cyst, chronic diastolic CHF, atrial fibrillation on Eliquis, HTN, LBBB, ESRD with peritoneal dialysis catheter in place, history of thyroid cancer, history of prostate cancer, and other problems listed below who presents to the ED with recurrent right flank pain. Recurrent R flank pain Cholelithiasis Elevated lipase Admitted earlier this week with similar pain - liver ultrasound showed gall bladder sludge, HIDA scan was negative for any acute cholecystitis/cystic duct obstruction Pain recurred last evening after eating broth based soup for dinner, returned to ED today Pain resolved with IV morphine in ED, ADAT Afebrile, no leukocytosis, lipase 246 (previously 390s) CT abd/pelvis with no bowel wall thickening or obstruction, evidence of cholelithiasis, colonic diverticulosis, mild nonspecific periportal edema/inflammation again noted Consult GI ESRD (end stage renal disease) Peritoneal dialysis catheter in place, was due to start today prior to admission Cr 6.25 Per nephrology patient to require hemodialysis due to abdominal pain Nephrology recommends IR consultation and placement of tunneled catheter Services unable to be provided at our facility Discussed with [facility] and unable to provide services to patient until following Wednesday Discussed with [facility] in [place] able to perform procedure tomorrow at 10:30 AM Transfer initiated, patient will have to be formally discharged in early a.m., transported to [place] via S and readmitted back to [facility] Atrial fibrillation continue metoprolol and eliquis per IR no need to interrupt eliquis Chronic diastolic CHF (congestive heart failure) Appears euvolemic, continue torsemide DM type 2 (diabetes mellitus, type 2) Hgb A1c 7.4 08/2022 Hold oral agents and utilize NovoLog per protocol while hospitalized Hyponatremia Na 130, chronic, at recent baseline Continue to monitor ANGY (iron deficiency anemia) Receives iron infusions Hypothyroidism Continue levothyroxine DVT Ppx: Eliquis Code status: DNR per discussion PCP: Nati Dispo: Admitted to med/surg Patient seen in collaboration with Dr. Huddleston Please see addendum. I spent a total of 70 minutes coordinating, documenting, and providing care for this patient excluding time spent in the performance of separately billed services. Admission and Anticipated Discharge Date Admission Date: September 01, 2022 Supervising Physician Co-Signing Physician Notes Attending addendum: The patient was seen and examined in medical floor Still complains to pain in the right lower lateral chest wall worse with movement Will abdominal catheter at [place] tomorrow On examination No apparent distress at rest Hemodynamically stable Chest-clear to auscultate bilaterally Localized tenderness noted over lower extremity on the right side His medications and labs reviewed Will apply diclofenac gel locally He will go to [place] tomorrow morning and will come back Reviewed with assessment and plan as outlined above by DANIKA Marr DR Subjective Patient was seen and examined in room 355-2. Follow-up right flank pain. Currently pain is resolved. He states pain comes and goes. Is unsure if is related to meals. Denies fever, chills, sweats, lightheadedness, dizziness, chest pain, shortness of breath, nausea, vomiting, abdominal pain. Tolerating diet. Review of Systems Review of Systems: All systems reviewed & are unremarkable except as noted in HPI & below Physical Exam Physical Exam: Gen: WD/WN, M, sitting up in bedside chair, NAD, A&O x3 HEENT: Normocephalic, atraumatic, conjunctivae moist, sclerae anicteric, mucous membranes moist. Lung: Clear to Auscultation bilaterally, no wheezes/rales/rhonchi Heart: IRR/IRR no murmurs, rubs, or gallops Abdomen: Soft, NT, ND +BS x 4 +PD cath placed Extremities: No edema Skin: Warm, no rash, negative turgor. Results & Data Results & Data Vital Signs (Past 12 Hours) Vital Signs Temp Pulse Resp BP Pulse Ox O2 Del Method 09/02/22 14:11 36.6 C 110 H 16 95/65 L 94 Room Air 09/02/22 07:47 36.6 C 105 H 16 116/77 96 Room Air Laboratory Results Short CBC 09/02/22 Range/Units 06:29 WBC 7.19 (4.8-10.8) K/ul Hgb 9.8 L (14.0-18.0) g/dl Hct 28.6 L (42.0-52.0) % Plt Count 344 (130-400) K/uL BMP 09/02/22 06:29 Sodium 134 L Potassium 4.9 Chloride 97 L Carbon Dioxide 23 BUN 120 H Creatinine 6.54 H* Glucose 104 H Calcium 9.4 Liver Function 09/02/22 Range/Units 06:29 Total Bilirubin 0.5 (0.2-1.0) mg/dl AST 20 (13-39) U/L ALT 13 (7-52) U/L Alkaline Phosphatase 65 (34-104) U/L Albumin 3.6 (3.4-5.0) gm/dl Medications Administered Current Inpatient Medications Acetaminophen (Acetaminophen 325 Mg Tab) 650 mg PO Q4H PRN PRN Reason: pain/fever Stop: 10/01/22 13:44 Last Admin: 09/02/22 13:15 Dose: 650 mg Allopurinol (Allopurinol 100 Mg Tab) 100 mg PO QAM LILI Stop: 10/02/22 08:59 Last Admin: 09/02/22 08:18 Dose: 100 mg Apixaban (Apixaban 2.5 Mg Tab) 2.5 mg PO BID [facility] Stop: 10/01/22 20:59 Last Admin: 09/02/22 08:16 Dose: 2.5 mg Aspirin (Aspirin 81 Mg Ectab) 81 mg PO DAILY LILI Stop: 10/02/22 08:59 Last Admin: 09/02/22 08:18 Dose: 81 mg Dextrose (Dextrose 50% 50 Ml Syringe) 25 - 50 ml IV UD PRN; Protocol PRN Reason: Hypoglycemia Protocol Stop: 10/01/22 14:52 Docusate Sodium (Docusate Sodium 100 Mg Cap) 100 mg PO BID [facility] Stop: 10/02/22 20:59 Glucagon (Glucagon For Inj 1 Mg Vial) 1 mg SQ UD PRN; Protocol PRN Reason: Hypoglycemia Protocol Stop: 10/01/22 14:52 Glucose (Glucose 10 Tab/Tube) 4 - 8 tab PO UD PRN; Protocol PRN Reason: Hypoglycemia Treatment Stop: 10/01/22 14:52 Glucose (Glucose 40% Gel 15 Gm Tube) 15 - 30 gm PO UD PRN; Protocol PRN Reason: Hypoglycemia Protocol Stop: 10/01/22 14:52 Hydroxyzine HCl (Hydroxyzine Hcl 10 Mg Tab) 10 mg PO TID PRN PRN Reason: Anxiety Stop: 10/01/22 14:36 Last Admin: 09/02/22 04:33 Dose: 10 mg Insulin Aspart (Insulin Aspart Per Unit Charge) 0 units SC ACHS [facility] Stop: 10/01/22 16:29 Last Admin: 09/02/22 12:44 Dose: 3 units Levothyroxine Sodium (Levothyroxine Sodium 150 Mcg Tablet) 150 mcg PO DAILYBB [facility] Stop: 10/02/22 06:29 Last Admin: 09/02/22 06:07 Dose: 150 mcg Metoprolol Tartrate (Metoprolol Tartrate 25 Mg Tab) 25 mg PO TID [facility] Stop: 10/01/22 20:59 Last Admin: 09/02/22 13:15 Dose: 25 mg Miscellaneous (Carbohydrates For Hypoglycemia ) 15 - 30 gm PO UD PRN PRN Reason: Hypoglycemia Protocol Stop: 10/01/22 14:52 Morphine Sulfate (Morphine Sulfate 4 Mg/Ml 1 Ml Carp\Vial) 4 mg IV Q4H PRN PRN Reason: Pain Stop: 09/15/22 14:50 Last Admin: 09/02/22 14:35 Dose: 4 mg Multivitamins (Multivitamin Tab) 1 tab PO DAILY [facility] Stop: 10/02/22 08:59 Last Admin: 09/02/22 08:17 Dose: 1 tab Ondansetron HCl (Ondansetron Inj 2 Mg/Ml 2 Ml Vial) 4 mg IV Q6H PRN PRN Reason: Nausea Stop: 10/01/22 13:44 Polyethylene Glycol (Polyethylene (Miralax) 17 Gm Pack) 17 gm PO DAILY [facility] Stop: 10/02/22 10:59 Last Admin: 09/02/22 12:40 Dose: 17 gm Potassium Chloride (Potassium Chloride Crtab 20 Meq Tabcr) 40 meq PO DAILY [facility] Stop: 10/02/22 08:59 Last Admin: 09/02/22 08:21 Dose: 40 meq Torsemide (Torsemide 100 Mg Tab) 100 mg PO QAM [facility] Stop: 10/02/22 08:59 Last Admin: 09/02/22 08:17 Dose: 100 mg COVID-19 Results Results COVID-19 Adm Lab Results: RBC 3.19 M/uL (4.70-6.10) L 09/02/22 WBC 7.19 K/ul (4.8-10.8) 09/02/22 Hgb 9.8 g/dl (14.0-18.0) L 09/02/22 Hct 28.6 % (42.0-52.0) L 09/02/22 Plt Count 344 K/uL (130-400) 09/02/22 Neutrophils (%) (Auto) 78.2 % 09/01/22 Lymphocytes (%) (Auto) 9.6 % 09/01/22 Monocytes # (Auto) 0.72 K/uL (0.11-0.59) H 09/01/22 Eosinophils # (Auto) 0.20 K/uL (0-0.50) 09/01/22 Immature Granulocyte % (Auto) 0.2 % 09/01/22 Neutrophils # (Auto) 6.27 K/uL (1.40-6.50) 09/01/22 Lymphocytes # (Auto) 0.77 K/uL (1.2-3.4) L 09/01/22 Monocytes # (Auto) 0.72 K/uL (0.11-0.59) H 09/01/22 Eosinophils # (Auto) 0.20 K/uL (0-0.50) 09/01/22 Basophils # (Auto) 0.04 K/uL (0-0.2) 09/01/22 Immature Granulocyte # (Auto) 0.02 K/uL (0.01-0.20) 3 Na 134 mmol/L (136-145) L 09/02/22 K 4.9 mmol/L (3.5-5.1) 09/02/22 Cl 97 mmol/L (98-107) L 09/02/22 CO2 23 mmol/L (21-32) 09/02/22 Anion Gap 14 (3-11) H 09/02/22 BUN 120 mg/dl (6-23) H 09/02/22 Creatinine 6.54 mg/dl (0.6-1.4) H* 09/02/22 BUN/Creatinine Ratio 18.3 (10-20) 09/02/22 Glucose Level 104 mg/dl (70-99(Fasting)) H 09/02/22 Ca 9.4 mg/dl (8.6-10.3) 09/02/22 Total Bilirubin 0.5 mg/dl (0.2-1.0) 09/02/22 AST/SGOT 20 U/L (13-39) 09/02/22 ALT/SGPT 13 U/L (7-52) 09/02/22 Alkaline Phosphatase 65 U/L (34-104) 09/02/22 Total Protein 7.4 gm/dl (6.0-8.3) 09/02/22 Albumin 3.6 gm/dl (3.4-5.0) 09/02/22 Globulin 3.8 gm/dl (2.5-4.0) 09/02/22 Albumin/Globulin Ratio 0.9 (0.9-2) 09/02/22 PTT 31.0 Seconds (21.0-31.0) 09/01/22 INR 1.2 (0.9-1.1) H 09/01/22 SARS-CoV-2, RNA, NAAT NEGATIVE (NEGATIVE) 09/01/22 Chest X-Ray 09/01/22
--- NOTE | 2022-09-02 17:15 | Consultation Report ---
NEPHROLOGY CONSULTATION NOTE DATE OF SERVICE: 09/02/2022 REASON FOR CONSULTATION: ESRD needing dialysis, now admitted with back pain. HISTORY OF PRESENT ILLNESS: The patient is an 82-year-old male who essentially has longstanding type 2 diabetes with CKD, which has recently progressed to end-stage renal disease. He recently had a pe ritoneal dialysis catheter placed about a week ago at [facility] by Dr. Tim Vigil son. However, before he was able to start peritoneal dialysis, he got admitted with abdominal pain a nd was actually discharged just 2 days ago after having CT abdomen as well as HIDA scan. No obvious cause was found. He started having sudden onset of right flank/back pain and then came to [facility] because of that yesterday. He had another CT scan, which does not really reveal anythi ng obvious as far as the etiology is concerned. His pain is slightly better now after the pain medic ation. His labs are consistent with ESRD with BUN of 120, creatinine of 6.5. Sodium 134, potassium 4.9. Chest x-ray shows some degree of pleural effusion. PAST MEDICAL AND SURGICAL HISTORY: Includes type 2 diabetes, CKD, which has progressed to ESRD, hypo thyroidism, pancreatic cyst, chronic diastolic congestive heart failure, recently diagnosed atrial fi brillation on Eliquis, hypertension, left bundle branch block, ESRD with the PD catheter, history of thyroid cancer, history of prostate cancer. ALLERGIES: LIST IS EXTENSIVE AND WAS REVIEWED IN DETAIL. MEDICATIONS: Home medication list was also reviewed in detail and is as per the reconciliation list and the H and P. PAST SURGICAL HISTORY: Lumbar fusion. FAMILY HISTORY: Negative for renal disease or dialysis. SOCIAL HISTORY: Former smoker, , and lives with his spouse. REVIEW OF SYSTEMS: Positive for pain, but denied nausea, vomiting, diarrhea. He does have significa nt constipation and has not had a bowel movement for many days. He does have some chronic shortness of breath and some orthopnea. He has significant issues with anxiety. Otherwise, 12 systems reviewe d and negative. PHYSICAL EXAMINATION: GENERAL: Elderly white male who is not in any overt respiratory distress. He is awake, alert and or iented. HEENT: Mucous membrane is moist. NECK: Supple. No jugular venous distention. CHEST: Bilateral decreased breath sounds, occasional basal crackles. CARDIOVASCULAR: S1 and S2, irregular systolic murmur soft heard. ABDOMEN: Soft, nontender. EXTREMITIES: Show no edema. LABORATORY TEST: Reviewed in detail as well as the imaging. Blood work from this morning shows hemog lobin 9.8, platelet count 344, creatinine 6.5. BUN 120. Sodium 134, potassium 4.9, bicarbonate 23, anion gap 14. Lipase is 246. It was 396 just a few days ago. Chest x-ray and CT scan was reviewed and does not really reveal anything very significant to explain the pain. ASSESSMENT AND PLAN: An 82-year-old male who has longstanding chronic kidney disease, which has now progressed to end-stage renal disease needing dialysis. Now admitted with unexplained abdominal/flan k/back pain. 1. End-stage renal disease. He does have a peritoneal dialysis catheter in place; however, given cesar oing issue with this unexplained abdominal/flank/back pain, it will be very tricky to start peritonea l dialysis. Abdominal pain is taken as an absolute emergency and peritoneal dialysis to rule out per itonitis. Given that he is still having intermittent severe pain, it will create a lot of trip to [facility] Emergency Department as well as testing. He is also very constipated both these problems can cause significant problem and confusion with starting PD. Given this, I want him to have a tunneled dialy sis catheter and then start maintenance hemodialysis. Once the issue of this pain has been resolved, then we will switch him over to peritoneal dialysis. In the meantime, we will be doing flushing of the PD catheter as well as sterile dressing. This will be done by dialysis nurse while inpatient and by the peritoneal dialysis nurse after discharge. We do have issue about who is going to place the tunneled dialysis catheter. We are still trying to sort out who is going to place a tunneled dialysi s catheter. It will be either [facility] interventional radiologist or if not possible, will be at [facility] interventional radiology. This was discussed with Dr. Huddleston, the hospitalist. In the meantime, I would continue with the torsemide 100 mg daily. We can lower t he potassium to 20 mEq daily and continue other medication. The patient is also on Eliquis, which al so makes things now complicated. We will decide about this once we hear from interventional radiolog ist. 2. Abdominal/flank/back pain, this is still being investigated. However, to me, it appears this is predominantly musculoskeletal as it is mostly in the back muscle area. Thank you very much for the consult. Job ID: [id number]
[2022-09-02] MEDS: DOCUSATE SODIUM 100 MG CAP PO SCH (20:15)
[2022-09-03] MEDS: LEVOTHYROXINE SODIUM 150 MCG TABLET PO SCH (06:16)
[2022-09-03] MEDS: INSULIN ASPART PER UNIT CHARGE SC SCH (07:32)
[2022-09-03] MEDS: DOCUSATE SODIUM 100 MG CAP PO SCH (07:35)
[2022-09-03] MEDS: allopurinoL 100 MG TAB PO SCH (07:35)
[2022-09-03] MEDS: METOPROLOL TARTRATE 25 MG TAB PO SCH (07:35)
--- NOTE | 2022-09-03 17:41 | Discharge Summary ---
Date of Service September 03, 2022 Admission HPI Per Admitting Provider This is an 82-year-old male with PMH DM type II, hypothyroidism, pancreatic cyst, chronic diastolic CHF, atrial fibrillation on Eliquis, HTN, LBBB, ESRD with peritoneal dialysis catheter in place, history of thyroid cancer, history of prostate cancer, and other problems listed below who presents to the ED with recurrent right flank pain. Was discharged yesterday with similar symptoms that had resolved. Workup earlier this week showed gall bladder sludge, HIDA scan was negative for any acute cholecystitis/cystic duct obstruction. Tolerated advanced diet in hospital and was discharged home. Ate soup with beef and vegetables last evening and then pain recurred later that evening. Pain is still a jabbing, intermittent pain in epigastric area extending to R flank. Episodes last for 30 seconds and then slightly improve before they recur again. Pain worsened last night around midnight and continued all night. Pain is 10/10 when present but currently does not have pain. No associated F/C, nausea or vomiting. No lightheadedness, CP, SOB, dysuria, hematuria, diarrhea. No bowel movement in the past few days. Due to start HD last week but was admitted to [facility]. Then supposed to start today but directed to ED for further evaluation. Admission Exam Per Admitting Provider NAD (pain resolved after getting morphine), Well developed Lungs: CTA, no wheezing or crackles Cardiac: In afib, possible systolic murmur Abd: PD access in place, soft, NT, normal BS MSK: no LE edema Psych: AAOx3, normal affect Principal Diagnosis Acute Right Flank Pain Elevated lipase w/o evidence of pancreatitis ESRD requiring dialysis - not yet started Peritoneal cath in place, but not yet in use Discharge Exam Gen: WD/WN, M, sitting up in bedside chair, NAD, A&O x3 HEENT: Normocephalic, atraumatic, conjunctivae moist, sclerae anicteric, mucous membranes moist. Lung: Clear to Auscultation bilaterally, no wheezes/rales/rhonchi Heart: IRR/IRR no murmurs, rubs, or gallops Abdomen: Soft, NT, ND +BS x 4 +PD cath placed Extremities: No edema Skin: Warm, no rash, negative turgor. Discharge Data Allergies Allergy/AdvReac Type Severity Reaction Status Date / Time clonidine Allergy Unknown allergic Unverified 08/29/22 18:51 to all but 1 brand carvedilol Allergy Hives Verified 08/29/22 18:51 losartan Allergy Unknown Verified 08/29/22 18:51 ANJELICA Inhibitors AdvReac Intermediate INTOLERANCE Verified 08/29/22 18:51 PER MD ORDER allopurinol AdvReac Intermediate severe abd Verified 08/29/22 18:51 pain Beta-Blockers AdvReac Intermediate INTOLERANCE Verified 08/29/22 18:51 (Beta-Adrenergic Bloc PER DR HUDDLESTON doxazosin AdvReac Intermediate INTOLERANCE Verified 08/29/22 18:[address] HUDDLESTON Gwjzouc-WNW-AyI Reductase AdvReac Intermediate INTOLERANCE Verified 08/29/22 18:51 Inhibitor PER [Qmdcrby-Hao-Fbr Reductase ADAN Inhibitor] citalopram AdvReac Unknown Verified 08/29/22 18:51 hydralazine AdvReac diarrhea, Verified 08/29/22 18:51 testicular pain hydrochlorothiazide AdvReac hyponatremi Verified 08/29/22 18:51 a lisinopril AdvReac Cough Verified 08/29/22 18:51 simvastatin [From Zocor] AdvReac Muscle Pain Verified 08/29/22 18:51 sitagliptin [From Januvia] AdvReac restlessnes Verified 08/29/22 18:51 s Consultations 09/01/22 12:56 ED Decision to Admit Stat 09/01/22 14:27 Consult Gastroenterology Routine Consult Nephrology Routine 09/03/22 07:00 Burn CD for patient Stat Ordered Studies 09/01/22 11:06 CT abd pelvis wo con Stat Hospital Course (1) Acute right flank pain: (2) Elevated lipase: (3) Cholelithiasis: (4) Kidney lesion: (5) Pancreatic cyst: (6) ANGY (iron deficiency anemia): (7) ESRD (end stage renal disease): (8) Peritoneal dialysis catheter in situ: (9) Chronic diastolic CHF (congestive heart failure): (10) Atrial fibrillation: (11) Hypothyroidism: (12) DM type 2 (diabetes mellitus, type 2): (13) Hyponatremia: Plan This is an 82-year-old male with PMH DM type II, hypothyroidism, pancreatic cyst, chronic diastolic CHF, atrial fibrillation on Eliquis, HTN, LBBB, ESRD with peritoneal dialysis catheter in place, history of thyroid cancer, history of prostate cancer, and other problems listed below who presents to the ED with recurrent right flank pain. Recurrent R flank pain Cholelithiasis Elevated lipase Admitted earlier this week with similar pain - liver ultrasound showed gall bladder sludge, HIDA scan was negative for any acute cholecystitis/cystic duct obstruction Pain recurred last evening after eating broth based soup for dinner, returned to ED today Pain resolved with IV morphine in ED, ADAT Afebrile, no leukocytosis, lipase 246 (previously 390s) CT abd/pelvis with no bowel wall thickening or obstruction, evidence of cholelithiasis, colonic diverticulosis, mild nonspecific periportal edema/inflammation again noted Consult GI ESRD (end stage renal disease) Peritoneal dialysis catheter in place, was due to start today prior to admission Cr 6.25 Per nephrology patient to require hemodialysis due to abdominal pain Nephrology recommends IR consultation and placement of tunneled catheter Services unable to be provided at our facility Discussed with [facility] and unable to provide services to patient until following Wednesday Discussed with [facility] in [place] able to perform procedure tomorrow at 10:30 AM Transfer initiated, patient will have to be formally discharged in early a.m., transported to [place] via BLS and readmitted back to Atrial fibrillation continue metoprolol and eliquis per IR no need to interrupt eliquis Chronic diastolic CHF (congestive heart failure) Appears euvolemic, continue torsemide DM type 2 (diabetes mellitus, type 2) Hgb A1c 7.4 08/2022 Hold oral agents and utilize NovoLog per protocol while hospitalized Hyponatremia Na 130, chronic, at recent baseline Continue to monitor ANGY (iron deficiency anemia) Receives iron infusions Hypothyroidism Continue levothyroxine DVT Ppx: Eliquis Code status: DNR per discussion PCP: Nati Dispo: Admitted to med/surg Patient seen in collaboration with Dr. Huddleston Please see addendum. I spent a total of 70 minutes coordinating, documenting, and providing care for this patient excluding time spent in the performance of separately billed services. Total Time Total Time Spent Total Time Spent (In Minutes): 35 minutes Discharge Plan Discharge Items Patient Disposition: Transfer Acute Care Hospital Reason For Visit: R FLANK PAIN Discharge Diagnosis: Acute Right Flank Pain Elevated lipase w/o evidence of pancreatitis ESRD requiring dialysis - not yet started Peritoneal cath in place, but not yet in use Condition on Discharge: Good Activity: Resume your previous activity Non-emergency contact: Primary Care Provider Call non-emergency contact if: you have any medication questions Follow-up/Referrals: Pramod Damian MD [Primary Care Provider] - Diet: Carb Consistent or DM2 Addtl Attending Provider Instructions: RECOMMENDATIONS FOR FOLLOW-UP: You are being discharged to [facility] IR department for placement of tunneled catheter so hemodialysis can be started. Plan is for you to return to once procedure is complete. Once procedure is complete please have staff at IR department contact at [phone] and have them connect with the [facility] to initiate readmission back to our facility. OTHER INSTRUCTIONS: Seek medical attention if you have: * temperature above 101 * chest pain or trouble breathing * abdominal pain, nausea, vomiting * diarrhea, dark stools or bloody stools * any unanswered questions or concerns Call 911 if symptoms are severe. Please take good care of yourself. It has been a pleasure taking care of you. Please take care of yourself. If you have any questions regarding your recent hospitalization please contact and [facility] @ [phone]. Eileen Hopper PA-C Pending Studies at Discharge: No Stand-Alone Forms: My [facility] Skilled Items Patient informed of condition?: Yes DNR: Yes Discharge Level of Care: Other Communicable Disease: No Discharge Prognosis: Stable Lines: Peripheral IV Urinary Catheter: No Medications and DC Order Prescriptions: New polyethylene glycol 3350 [Miralax] 17 gram Powder In Packet 17 g PO DAILY Qty: 14 0RF Continued allopurinol 100 mg Tablet 100 mg PO QAM aspirin 81 mg Tablet,Delayed Release (Dr/Ec) 81 mg PO DAILY multivitamin Tablet 1 tab PO DAILY levothyroxine 150 mcg Tablet 150 mcg PO DAILYBB Tradjenta 5 mg tablet 5 mg PO QAM hydroxyzine HCl 10 mg tablet 10 mg PO TID PRN (Reason: Anxiety) torsemide 100 mg tablet 100 mg PO QAM glipizide 2.5 mg tablet extended release 24hr 2.5 mg PO QAM metoprolol tartrate 25 mg tablet 25 mg PO TID Eliquis 2.5 mg tablet 2.5 mg PO BID B-complex with vitamin C Tablet 1 tab PO DAILY docusate sodium 100 mg Tablet 100 mg PO DAILY potassium chloride 20 mEq tablet extended release 40 meq PO DAILY Discharge Orders: Discharge Order (Routine); Ordered 09/03/22 Ordered By: Breezy Guajardo/Other Patient Handouts: Treating Constipation, ED Constipation (Adult) Admission Data Admit Date/Time: 09/01/22 13:33 Attending Provider: Breezy Huddleston Admit Provider: Zara Merrill Primary Care Provider: Pramod Damian Other Providers: Zara Merrill ; Kristan Hamilton ; Ray Diaz ; Eileen Hopper Other Interventions: Discharge Summary Assessment (RN) Last Done: 09/03/22 08:24
== END 2022-09-03 08:20 | disposition short-term general hospital (02) | DRG 391 ==
LOC: ED 10:40 → EDINP 13:33 → SUATTDRO 13:33 → 3W 13:41

== ENCOUNTER 2022-09-03 15:21 | Inpatient (IN) ==
[2022-09-03 16:25] LABS: Hemoglobin 9.5 g/dl (14.0-18.0); Mean Corpuscular Hgb Conc 33.9 g/dL (32.0-36.0); Mean Corpuscular Volume 91.5 fL (80.0-100.0); Mean Platelet Volume 9.9 fL (9.4-12.4); Platelet Count 339 K/uL (130-400); RDW Coefficient of Variation 14.1 % (11.5-14.5); RDW Standard Deviation 46.6 fL (36.4-46.3); Red Blood Count 3.06 M/uL (4.70-6.10); White Blood Count 6.78 K/ul (4.8-10.8)
[2022-09-03 16:51] LABS: Anion Gap 12 (3-11); BUN Creatinine Ratio 18.5 (10-20); Blood Urea Nitrogen 114 mg/dl (6-23); Calcium 9.2 mg/dl (8.6-10.3); Carbon Dioxide 24 mmol/L (21-32); Chloride 97 mmol/L (98-107); Est GFR (Non-African American) 7.8 ml/min; Glucose 175 mg/dl (70-99(Fasting)); Potassium 4.6 mmol/L (3.5-5.1); Sodium 133 mmol/L (136-145)
[2022-09-03] MEDS ORDERED: GLUCOSE 10 TAB/TUBE PO PRN (17:09)
[2022-09-03] MEDS ORDERED: GLUCOSE 40% GEL 15 GM TUBE PO PRN (17:09)
[2022-09-03] MEDS ORDERED: DEXTROSE 50% 50 ML SYRINGE IV PRN (17:09)
[2022-09-03] MEDS ORDERED: GLUCAGON FOR INJ 1 MG VIAL SQ PRN (17:09)
[2022-09-03] MEDS ORDERED: CARBOHYDRATES FOR HYPOGLYCEMIA PO PRN (17:09)
--- NOTE | 2022-09-03 17:13 | History & Physical Report ---
Date of Service September 03, 2022 Assessment & Plan (1) Acute right flank pain: Plan: Admit to [facility] Patient recently admitted to [facility] 08/29 through 08/31 for right flank pain. Biliary colic was considered as cause of pain however patient underwent extensive imaging including CT ABD/pelvis, RUQ US, and HIDA scan without acute findings. Patient was discharged home but returned back to the hospital the following day for return of pain. Patient readmitted on 09/01. Evaluated by GI who did not recommend further GI work-up. Recommended treating constipation. Patient reports he is currently pain-free. Will trial scheduled Tylenol and topical diclofenac. Treat constipation with bowel regimen. (2) ESRD (end stage renal disease): Plan: Has peritoneal dialysis catheter in place however nephrology recommended tunneled dialysis catheter for hemodialysis given ongoing abdominal pain and constipation Nephrology consult (3) Chronic diastolic CHF (congestive heart failure): Plan: Appears euvolemic, continue torsemide Nephrology recommended to reduce potassium supplementation to 20 mEq daily (4) DM type 2 (diabetes mellitus, type 2): Plan: Hgb A1c 7.4 08/2022 Hold oral agents and utilize NovoLog per protocol while hospitalized (5) Atrial fibrillation: Plan: Rate controlled on metoprolol Anticoagulated on Eliquis, resume tomorrow a.m. per IR Dr. Kra Basilio (6) Hyponatremia: Plan: History of chronic hyponatremia, baseline sodium ~130 Na+ 133 today Monitor BMP (7) Hypothyroidism: Plan: Continue levothyroxine (8) ANGY (iron deficiency anemia): Plan: Receives iron infusions DVT PROPHYLAXIS SCDs until Eliquis resumed tomorrow Patient seen in collaboration with Dr. Huddleston I spent a total of 60 minutes coordinating, documenting, and providing care for this patient excluding time spent in the performance of separately billed services. This included personally reviewing all current laboratories and imagin g studies, medication reconciliation, outpatient chart review, and discussion with specialists. Admission and Anticipated Discharge Date Admission Date: September 03, 2022 History of Present Illness Chief Complaint: Right flank pain Primary Care Provider: Pramod Damian MD History obtained from patient and review of prior admission records. 82-year-old male with PMH DM type II, hypothyroidism, pancreatic cyst, chronic diastolic CHF, atrial fibrillation on Eliquis, HTN, LBBB, ESRD with peritoneal dialysis catheter in place, history of thyroid cancer, history of prostate cancer, and other problems listed below who presents back from [place] after having tunneled dialysis catheter placed. Patient recently admitted to [facility] 08/29 through 08/31 for right flank pain. Biliary colic was considered as cause of pain however patient underwent extensive imaging including CT ABD/pelvis, RUQ US, and HIDA scan without acute findings. Patient was discharged home but returned back to the hospital the following day for return of pain. Patient readmitted on 09/01. Evaluated by GI who did not recommend further GI work-up. Recommended treating constipation. Due to ESRD with current peritoneal dialysis catheter in place (has not started treatments), patient was evaluated by nephrology. Due to ongoing abdominal pain and constipation, nephrology recommended patient have tunneled dialysis catheter placed to start hemodialysis. Due to limited availability of services at [facility] and [facility], patient was transferred to [place] today for tunneled dialysis catheter placement with IR. Patient was seen in room 302 after he arrived back from [place]. Patient reports experiencing right flank pain in route to [place] while in the ambulance. Patient reports medication he received for the catheter placement resolved the right flank pain. Patient denies any pain currently. Reports he is feeling well. Denies chest pain and shortness of breath. No nausea. Denies lightheadedness and dizziness. Vitals are stable. Allergies Allergy/AdvReac Type Severity Reaction Status Date / Time clonidine Allergy Unknown allergic Unverified 08/29/22 18:51 to all but 1 brand carvedilol Allergy Hives Verified 08/29/22 18:51 losartan Allergy Unknown Verified 08/29/22 18:51 ANJELICA Inhibitors AdvReac Intermediate INTOLERANCE Verified 08/29/22 18:51 PER MD ORDER allopurinol AdvReac Intermediate severe abd Verified 08/29/22 18:51 pain Beta-Blockers AdvReac Intermediate INTOLERANCE Verified 08/29/22 18:51 (Beta-Adrenergic Bloc PER DR HUDDLESTON doxazosin AdvReac Intermediate INTOLERANCE Verified 08/29/22 18:[address] HUDDLESTON [id number]-CmJ Reductase AdvReac Intermediate INTOLERANCE Verified 08/29/22 18:[address] [Phefppe-Imd-Tge Reductase ADAN Inhibitor] citalopram AdvReac Unknown Verified 08/29/22 18:51 hydralazine AdvReac diarrhea, Verified 08/29/22 18:51 testicular pain hydrochlorothiazide AdvReac hyponatremi Verified 08/29/22 18:51 a lisinopril AdvReac Cough Verified 08/29/22 18:51 simvastatin [From Zocor] AdvReac Muscle Pain Verified 08/29/22 18:51 sitagliptin [From Januvia] AdvReac restlessnes Verified 08/29/22 18:51 s Home Medications Medication Instructions Recorded Confirmed Type allopurinol 100 mg tablet 100 mg PO QAM 02/25/18 09/03/22 History aspirin 81 mg tablet,delayed 81 mg PO DAILY 02/25/18 09/03/22 History release levothyroxine 150 mcg tablet 150 mcg PO DAILYBB 08/12/20 09/03/22 History multivitamin 1 tab PO DAILY 08/12/20 09/03/22 History B-complex with vitamin C 1 tab PO DAILY 08/29/22 09/03/22 History apixaban 2.5 mg tablet (Eliquis) 2.5 mg PO BID 08/29/22 09/03/22 History docusate sodium 100 mg tablet 100 mg PO DAILY 08/29/22 09/03/22 History glipizide 2.5 mg tablet, extended 2.5 mg PO QAM 08/29/22 09/03/22 History release 24 hr hydroxyzine HCl 10 mg tablet 10 mg PO TID PRN Anxiety 08/29/22 09/03/22 History linagliptin 5 mg tablet (Tradjenta) 5 mg PO QAM 08/29/22 09/03/22 History metoprolol tartrate 25 mg tablet 25 mg PO TID 08/29/22 09/03/22 History potassium chloride 20 mEq 40 meq PO DAILY 08/29/22 09/03/22 History tablet,extended release torsemide 100 mg tablet 100 mg PO QAM 08/29/22 09/03/22 History polyethylene glycol 3350 17 gram 17 g PO DAILY #14 ea 09/02/22 09/03/22 Rx oral powder packet (Miralax) Past Med/Surg History Medical History Atrial fibrillation Chronic diastolic CHF (congestive heart failure) COPD (chronic obstructive pulmonary disease) DM type 2 (diabetes mellitus, type 2) ESRD (end stage renal disease) Gout Hypertension Hypothyroidism ANGY (iron deficiency anemia) LBBB (left bundle branch block) Pancreatic cyst Peritoneal dialysis catheter in situ Prostate ca Pulmonary hypertension Spinal stenosis Thyroid cancer Surgical History S/P lumbar fusion Family History Other Diabetes Hypertension Social History Smoking Status: Former smoker Cigarettes Per Day: 10; Second Hand Exposure: No; Do You Dip or Chew Tobacco: Yes; Hx Alcohol Use: No Hx Substance Use: No Preferred Language: Cook Islander Communication Ability: Effective Dairy Helper Required: No Beliefs That Will Affect Care: None marital status: Current Living Situation: Spouse Feels Safe at Home: Yes Safety Concerns: Feels Safe At This Time Assistive Devices: Walker Review of Systems Review of Systems: ROS per HPI, all other systems reviewed and negative Physical Exam Constitutional: WD/WN, vitals as above Eyes: PERRL, conjunctivae normal, anicteric sclerae ENMT: external ear and nose normal, oropharynx normal Respiratory: normal respiratory effort, lungs clear to auscultation Cardiovascular: Rate/Rhythm: regular rate and + irregularly irregular Vessels: normal peripheral pulses Extremities: no edema Chest (Breasts): Chest: + vascular access device or port (Tunneled catheter in place to right chest) Gastrointestinal (Abdomen): normal bowel sounds, soft, nontender, no hepatosplenomegaly Peritoneal dialysis catheter in place Musculoskeletal: no cyanosis or clubbing, extremities motor strength 5/5 Skin: no rashes, warm and dry Neurologic: PERRL, EOMI, accommodation nl, no face palsy, no dysarthria Psychiatric: A+Ox3, euthymic affect Code Status & VTE Plan VTE Prophylaxis Plan VTE Prophylaxis will be ordered: Yes Supervising Physician Co-Signing Physician Notes Attending addendum: The patient was seen and examined in the morning and also after coming back from [place] He has been resting peacefully Is a status post tunneled catheter placement at [place] this morning Examination Lying in bed comfortably Hemodynamically stable His labs and imaging studies reviewed. Medications reviewed He has a end-stage renal disease with a status post tunneled catheter placement for hemodialysis to start He also has a peritoneal dialysis catheter which has not been used yet He does have nonspecific pain in the right lower chest wall and lateral abdominal wall under investigation Agree with assessment plan as outlined above by Lalitha Huddleston
[2022-09-03] MEDS: POLYETHYLENE (MIRALAX) 17 GM PACK PO SCH (17:39)
[2022-09-03] MEDS: ACETAMINOPHEN 500 MG TAB PO SCH ×2 (17:39→23:36)
[2022-09-03] MEDS: DICLOFENAC SOD 1% GEL 100 GM TUBE EXT SCH (20:49)
[2022-09-03] MEDS: DOCUSATE SODIUM 100 MG CAP PO SCH (20:54)
[2022-09-03] MEDS: METOPROLOL TARTRATE 25 MG TAB PO SCH (20:55)
[2022-09-03] MEDS: INSULIN ASPART PER UNIT CHARGE SC SCH (22:38)
[2022-09-04] MEDS: LEVOTHYROXINE SODIUM 150 MCG TABLET PO SCH (06:25)
[2022-09-04 08:03] LABS: Hematocrit (blood only) 28.7 % (42.0-52.0); Hemoglobin 9.8 g/dl (14.0-18.0); Mean Corpuscular Hemoglobin 30.6 pg (25.0-34.0); Mean Corpuscular Hgb Conc 34.1 g/dL (32.0-36.0); Mean Corpuscular Volume 89.7 fL (80.0-100.0); Mean Platelet Volume 9.5 fL (9.4-12.4); Platelet Count 333 K/uL (130-400); RDW Standard Deviation 45.8 fL (36.4-46.3); White Blood Count 6.89 K/ul (4.8-10.8)
[2022-09-04] MEDS: INSULIN ASPART PER UNIT CHARGE SC SCH ×4 (08:24→21:22)
[2022-09-04] MEDS: ACETAMINOPHEN 500 MG TAB PO SCH ×3 (08:26→23:31)
[2022-09-04] MEDS: APIXABAN 2.5 MG TAB PO SCH ×2 (08:27→21:05)
[2022-09-04] MEDS: allopurinoL 100 MG TAB PO SCH (08:27)
[2022-09-04] MEDS: ASPIRIN 81 MG ECTAB PO SCH (08:28)
[2022-09-04] MEDS: DOCUSATE SODIUM 100 MG CAP PO SCH (08:30)
[2022-09-04] MEDS: POLYETHYLENE (MIRALAX) 17 GM PACK PO SCH (08:31)
[2022-09-04] MEDS: METOPROLOL TARTRATE 25 MG TAB PO SCH ×3 (08:31→21:05)
[2022-09-04] MEDS: POTASSIUM CHLORIDE CRTAB 20 MEQ TABCR PO SCH (08:32)
[2022-09-04] MEDS: TORSEMIDE 100 MG TAB PO SCH (08:32)
[2022-09-04] MEDS ORDERED: SODIUM CHLORIDE 0.9% 1000ML 1,000 ML IV PRN (08:36)
[2022-09-04 08:42] LABS: BUN Creatinine Ratio 17.9 (10-20); Calcium 9.4 mg/dl (8.6-10.3); Creatinine Clr Calc Pharmacy 9.7 ml/min; Est GFR (Non-African American) 7.8 ml/min; Potassium 4.5 mmol/L (3.5-5.1)
--- NOTE | 2022-09-04 09:15 | Nephrology Consultation ---
Date of Consultation September 04, 2022 History of Present Illness Reason for Consultation: ERD needing Dialysis Attending Physician: Breezy Arellano MD History of Present Illness HISTORY OF PRESENT ILLNESS: The patient is an 82-year-old male who essentially has longstanding type 2 diabetes with CKD, which has recently progressed to end- stage renal disease. He recently had a peritoneal dialysis catheter placed about a week ago at [facility] by Dr. Tim Musa. However, before he was able to start peritoneal dialysis, he got admitted with abdominal pain and was actually discharged just 2 days ago after having CT abdomen as well as HIDA scan. No obvious cause was found. He started having sudden onset of right flank/back pain and then came to the Emergency Department because of that yesterday. He had another CT scan, which does not really reveal anything obvious as far as the etiology is concerned. His pain is slightly better now after the pain medication. His labs are consistent with ESRD. Chest x-ray shows some degree of pleural effusion. Had Tunnelled hD cath at [facility] and then now back to [facility]. Getting HD later today. PAST MEDICAL AND SURGICAL HISTORY: Includes type 2 diabetes, CKD, which has progressed to ESRD, hypothyroidism, pancreatic cyst, chronic diastolic congestive heart failure, recently diagnosed atrial fibrillation on Eliquis, hypertension, left bundle branch block, ESRD with the PD catheter, history of thyroid cancer, history of prostate cancer. ALLERGIES: LIST IS EXTENSIVE AND WAS REVIEWED IN DETAIL. MEDICATIONS: Home medication list was also reviewed in detail and is as per the reconciliation list and the H and P. PAST SURGICAL HISTORY: Lumbar fusion. FAMILY HISTORY: Negative for renal disease or dialysis. SOCIAL HISTORY: Former smoker, , and lives with his spouse. REVIEW OF SYSTEMS: Positive for pain, but denied nausea, vomiting, diarrhea. He does have significant constipation and has not had a bowel movement for many days. He does have some chronic shortness of breath and some orthopnea. He has significant issues with anxiety. Otherwise, 12 systems reviewed and negative. PHYSICAL EXAMINATION: GENERAL: Elderly white male who is not in any overt respiratory distress. He is awake, alert and oriented. HEENT: Mucous membrane is moist. NECK: Supple. No jugular venous distention. CHEST: Bilateral decreased breath sounds, occasional basal crackles. CARDIOVASCULAR: S1 and S2, irregular systolic murmur soft heard. ABDOMEN: Soft, nontender. EXTREMITIES: Show no edema. LABORATORY TEST: Reviewed in detail as well as the imaging. ASSESSMENT AND PLAN: An 82-year-old male who has longstanding chronic kidney disease, which has now progressed to end-stage renal disease needing dialysis. Now admitted with unexplained abdominal/flank/back pain. 1. End-stage renal disease. He does have a peritoneal dialysis catheter in place; however, given ongoing issue with this unexplained abdominal/flank/back pain, it will be very tricky to start peritoneal dialysis. Abdominal pain is taken as an absolute emergency and peritoneal dialysis to rule out peritonitis. Given that he is still having intermittent severe pain, it will create a lot of trip to the Emergency Department as well as testing. He is also very constipated both these problems can cause significant problem and confusion with starting PD. Given this, I want him to have a tunneled dialysis catheter and then start maintenance hemodialysis. Once the issue of this pain has been resolved, then we will switch him over to peritoneal dialysis. In the meantime, we will be doing flushing of the PD catheter as well as sterile dressing. This will be done by dialysis nurse while inpatient and by the peritoneal dialysis nurse after discharg Now has tunnelled HD cath as well as PD. Plan is to do 2hrs of hemodialysis today--no meds and no UF. 3hrs tomorrow and then he can be discharged as long as we have pain under control. he would need Pain meds for home. 2. Abdominal/flank/back pain, this is still being investigated. However, to me, it appears this is predominantly musculoskeletal as it is mostly in the back muscle area. Thank you very much for the consult. Allergies Allergy/AdvReac Type Severity Reaction Status Date / Time clonidine Allergy Unknown allergic Unverified 08/29/22 18:51 to all but 1 brand carvedilol Allergy Hives Verified 08/29/22 18:51 losartan Allergy Unknown Verified 08/29/22 18:51 ANJELICA Inhibitors AdvReac Intermediate INTOLERANCE Verified 08/29/22 18:51 PER MD ORDER allopurinol AdvReac Intermediate severe abd Verified 08/29/22 18:51 pain Beta-Blockers AdvReac Intermediate INTOLERANCE Verified 08/29/22 18:51 (Beta-Adrenergic Bloc PER DR ARELLANO doxazosin AdvReac Intermediate INTOLERANCE Verified 08/29/22 18:[address] ARELLANO Rjelcvm-SEI-QqO Reductase AdvReac Intermediate INTOLERANCE Verified 08/29/22 18:51 Inhibitor PER [Sqfkqec-Yqo-Ryq Reductase ADAN Inhibitor] citalopram AdvReac Unknown Verified 08/29/22 18:51 hydralazine AdvReac diarrhea, Verified 08/29/22 18:51 testicular pain hydrochlorothiazide AdvReac hyponatremi Verified 08/29/22 18:51 a lisinopril AdvReac Cough Verified 08/29/22 18:51 simvastatin [From Zocor] AdvReac Muscle Pain Verified 08/29/22 18:51 sitagliptin [From Januvia] AdvReac restlessnes Verified 08/29/22 18:51 s Home Medications Medication Instructions Recorded Confirmed Type allopurinol 100 mg tablet 100 mg PO QAM 02/25/18 09/03/22 History aspirin 81 mg tablet,delayed 81 mg PO DAILY 02/25/18 09/03/22 History release levothyroxine 150 mcg tablet 150 mcg PO DAILYBB 08/12/20 09/03/22 History multivitamin 1 tab PO DAILY 08/12/20 09/03/22 History B-complex with vitamin C 1 tab PO DAILY 08/29/22 09/03/22 History apixaban 2.5 mg tablet (Eliquis) 2.5 mg PO BID 08/29/22 09/03/22 History docusate sodium 100 mg tablet 100 mg PO DAILY 08/29/22 09/03/22 History glipizide 2.5 mg tablet, extended 2.5 mg PO QAM 08/29/22 09/03/22 History release 24 hr hydroxyzine HCl 10 mg tablet 10 mg PO TID PRN Anxiety 08/29/22 09/03/22 History linagliptin 5 mg tablet (Tradjenta) 5 mg PO QAM 08/29/22 09/03/22 History metoprolol tartrate 25 mg tablet 25 mg PO TID 08/29/22 09/03/22 History potassium chloride 20 mEq 40 meq PO DAILY 08/29/22 09/03/22 History tablet,extended release torsemide 100 mg tablet 100 mg PO QAM 08/29/22 09/03/22 History polyethylene glycol 3350 17 gram 17 g PO DAILY #14 ea 09/02/22 09/03/22 Rx oral powder packet (Miralax) Patient History Medical History Atrial fibrillation Chronic diastolic CHF (congestive heart failure) COPD (chronic obstructive pulmonary disease) DM type 2 (diabetes mellitus, type 2) ESRD (end stage renal disease) Gout Hypertension Hypothyroidism ANGY (iron deficiency anemia) LBBB (left bundle branch block) Pancreatic cyst Peritoneal dialysis catheter in situ Prostate ca Pulmonary hypertension Spinal stenosis Thyroid cancer Surgical History S/P lumbar fusion Family History Other Diabetes Hypertension Social History Smoking Status: Former smoker Cigarettes Per Day: 10; Second Hand Exposure: No; Do You Dip or Chew Tobacco: Yes; Hx Alcohol Use: No Hx Substance Use: No Preferred Language: Haitian Communication Ability: Effective Gear Setter Required: No Beliefs That Will Affect Care: None marital status: Current Living Situation: Spouse Feels Safe at Home: Yes Safety Concerns: Feels Safe At This Time Assistive Devices: Walker Results & Data Vital Signs (Past 12 Hours) Vital Signs Temp Pulse Resp BP Pulse Ox O2 Del Method 09/04/22 07:30 36.9 C 106 H 16 117/76 96 Room Air 09/03/22 21:30 37.3 C 56 L 20 121/63 95 Room Air
[2022-09-04] MEDS: LIDOCAINE 5% 1 PATCH TD SCH (09:41)
[2022-09-04] MEDS ORDERED: traMADol HCL 50 MG TABLET PO PRN (10:34)
[2022-09-04] MEDS: DICLOFENAC SOD 1% GEL 100 GM TUBE EXT SCH ×3 (11:55→21:05)
--- NOTE | 2022-09-04 14:17 | Hospitalist Progress Note ---
Date of Service September 04, 2022 Assessment & Plan (1) Acute right flank pain: (2) Elevated lipase: (3) Cholelithiasis: (4) Kidney lesion: (5) Pancreatic cyst: (6) NAGY (iron deficiency anemia): (7) ESRD (end stage renal disease): (8) Peritoneal dialysis catheter in situ: (9) Chronic diastolic CHF (congestive heart failure): (10) Atrial fibrillation: (11) Hypothyroidism: (12) DM type 2 (diabetes mellitus, type 2): (13) Hyponatremia: Plan This is an 82-year-old male with PMH DM type II, hypothyroidism, pancreatic cyst, chronic diastolic CHF, atrial fibrillation on Eliquis, HTN, LBBB, ESRD with peritoneal dialysis catheter in place, history of thyroid cancer, history of prostate cancer, and other problems listed below who presents to the ED with recurrent right flank pain. Recurrent R flank pain Cholelithiasis Elevated lipase Admitted earlier this week with similar pain - liver ultrasound showed gall bladder sludge, HIDA scan was negative for any acute cholecystitis/cystic duct obstruction Pain recurred last evening after eating broth based soup for dinner Pain resolved with IV morphine in ED, ADAT Pain continues to come and go GI feels maybe constipation? recs a good bowel regimen will change to Senna S 2 at HS and scheduled miralax obtain rib series Xray lidocaine patch, prn tramadol, heat ESRD (end stage renal disease) Peritoneal dialysis catheter in place, was due to start today prior to admission Per nephrology patient to require hemodialysis due to abdominal pain Pt had tunneled cath placed at [facility] and returned yesterday to have 2 hrs today Atrial fibrillation continue metoprolol and eliquis Chronic diastolic CHF (congestive heart failure) Appears euvolemic, continue torsemide potassium reduced DM type 2 (diabetes mellitus, type 2) Hgb A1c 7.4 08/2022 Hold oral agents and utilize NovoLog per protocol while hospitalized bsg 132, 175 Hyponatremia Na 134, chronic, at recent baseline Continue to monitor ANGY (iron deficiency anemia) Receives iron infusions Hypothyroidism Continue levothyroxine DVT Ppx: Eliquis Code status: DNR per discussion PCP: Nati Dispo: Admitted to med/surg Patient seen in collaboration with Dr. Goodman Please see addendum. I spent a total of 45 minutes coordinating, documenting, and providing care for this patient excluding time spent in the performance of separately billed services. Admission and Anticipated Discharge Date Admission Date: September 03, 2022 Supervising Physician Co-Signing Physician Notes Attending addendum: The patient was seen and examined in medical floor He has been walking with a walker in the hallway without any significant symptoms Still having pain which is occasional and can be very severe On examination No acute distress at rest Has been ambulating in the hallway with a walker Chest remains clear Localized tenderness noted in the lower lateral aspect of chest wall Abdomen-benign His labs are noted He will have hemodialysis today and preferably tomorrow as per nephrology EXTR of the ribs are unremarkable for any fracture Continue with current pain medications May need to start small dose of narcotic pain medication to control pain Agree with assessment and plan as outlined above by Audrey goodman Subjective Patient was seen and examined in room 312. Follow-up right flank pain and end-stage renal disease to start hemodialysis today. He had tunneled catheter placed yesterday. Denies any discomfort from this. Continues to get off and on right flank pain. It comes and goes and is described as a, "jab," and is severe when it comes on. It is also worse with deep inspiration. Review of Systems Review of Systems: All systems reviewed & are unremarkable except as noted in HPI & below Physical Exam Physical Exam: Gen: WD/WN, NAD, A&O x3 HEENT: Normocephalic, atraumatic, conjunctivae moist, sclerae anicteric, mucous membranes moist. Lung: Clear to Auscultation bilaterally, no wheezes/rales/rhonchi Heart: Regular rate, regular rhythm, no murmurs, rubs, or gallops, tunneled cath RACW Abdomen: Soft, NT, ND +BS x 4 Extremities: No edema Skin: Warm, no rash, negative turgor. Back: + pain to palpation at base of R posterior rib cage, localized, non radiating, no rash Results & Data Results & Data Vital Signs (Past 12 Hours) Vital Signs Temp Pulse Pulse Pulse Resp BP BP 09/04/22 12:19 36.6 C 86 16 137/86 09/04/22 11:39 37 C 93 H 09/04/22 11:00 96 H 130/91 09/04/22 10:30 95 H 112/87 09/04/22 10:00 81 115/81 09/04/22 09:30 78 127/88 09/04/22 09:21 118 H 135/94 09/04/22 09:15 37.0 C 139 H 09/04/22 07:30 36.9 C 106 H 16 117/76 BP Pulse Ox O2 Del Method 09/04/22 12:19 96 Room Air 09/04/22 11:39 133/102 H 09/04/22 11:00 09/04/22 10:30 09/04/22 10:00 09/04/22 09:30 09/04/22 09:21 09/04/22 09:15 09/04/22 07:30 96 Room Air Diagnostic Findings Short CBC 09/03/22 09/04/22 Range/Units 16:03 07:50 WBC 6.78 6.89 (4.8-10.8) K/ul Hgb 9.5 L 9.8 L (14.0-18.0) g/dl Hct 28.0 L 28.7 L (42.0-52.0) % Plt Count 339 333 (130-400) K/uL BMP 09/03/22 09/04/22 16:03 07:50 Sodium 133 L 134 L Potassium 4.6 4.5 Chloride 97 L 98 Carbon Dioxide 24 22 BUN 114 H 111 H Creatinine 6.16 H* D 6.19 H* Glucose 175 H 132 H Calcium 9.2 9.4 Medications Administered Current Inpatient Medications Acetaminophen (Acetaminophen 500 Mg Tab) 1,000 mg PO Q8H [facility] Stop: 10/03/22 15:44 Last Admin: 09/04/22 08:26 Dose: 1,000 mg Allopurinol (Allopurinol 100 Mg Tab) 100 mg PO QAM [facility] Stop: 10/04/22 08:59 Last Admin: 09/04/22 08:27 Dose: 100 mg Apixaban (Apixaban 2.5 Mg Tab) 2.5 mg PO BID [facility] Stop: 10/04/22 08:59 Last Admin: 09/04/22 08:27 Dose: 2.5 mg Aspirin (Aspirin 81 Mg Ectab) 81 mg PO DAILY [facility] Stop: 10/04/22 08:59 Last Admin: 09/04/22 08:28 Dose: 81 mg Dextrose (Dextrose 50% 50 Ml Syringe) 25 - 50 ml IV UD PRN; Protocol PRN Reason: Hypoglycemia Protocol Stop: 10/03/22 17:08 Diclofenac Sodium (Diclofenac Sod 1% Gel 100 Gm Tube) 2 gm EXT TID LILI; Protocol Stop: 10/03/22 20:59 Last Admin: 09/04/22 11:55 Dose: 2 gm Glucagon (Glucagon For Inj 1 Mg Vial) 1 mg SQ UD PRN; Protocol PRN Reason: Hypoglycemia Protocol Stop: 10/03/22 17:08 Glucose (Glucose 40% Gel 15 Gm Tube) 15 - 30 gm PO UD PRN; Protocol PRN Reason: Hypoglycemia Protocol Stop: 10/03/22 17:08 Glucose (Glucose 10 Tab/Tube) 4 - 8 tab PO UD PRN; Protocol PRN Reason: Hypoglycemia Treatment Stop: 10/03/22 17:08 Sodium Chloride (Nss 1000ml) 1,000 mls @ 0 mls/hr IV .Q0M PRN PRN Reason: For Hemodialysis Use ONLY Stop: 09/04/22 14:35 Insulin Aspart (Insulin Aspart Per Unit Charge) 0 units SC ACHS [facility] Stop: 10/03/22 20:59 Last Admin: 09/04/22 13:17 Dose: 4 units Levothyroxine Sodium (Levothyroxine Sodium 150 Mcg Tablet) 150 mcg PO DAILYBB [facility] Stop: 10/04/22 06:29 Last Admin: 09/04/22 06:25 Dose: 150 mcg Lidocaine (Lidocaine 5% 1 Patch) 1 patch TD QAM [facility] Stop: 10/04/22 08:59 Last Admin: 09/04/22 09:41 Dose: 1 patch Metoprolol Tartrate (Metoprolol Tartrate 25 Mg Tab) 25 mg PO TID [facility] Stop: 10/03/22 20:59 Last Admin: 09/04/22 08:31 Dose: 25 mg Miscellaneous (Carbohydrates For Hypoglycemia ) 15 - 30 gm PO UD PRN PRN Reason: Hypoglycemia Protocol Stop: 10/03/22 17:08 Miscellaneous (Remove Lidoderm Patch) 1 each N/A DAILY@2100 [facility] Stop: 10/04/22 20:59 Polyethylene Glycol (Polyethylene (Miralax) 17 Gm Pack) 17 gm PO DAILY [facility] Stop: 10/03/22 17:14 Last Admin: 09/04/22 08:31 Dose: 17 gm Potassium Chloride (Potassium Chloride Crtab 20 Meq Tabcr) 20 meq PO DAILY [facility] Stop: 10/04/22 08:59 Last Admin: 09/04/22 08:32 Dose: 20 meq Senna/Docusate Sodium (Docusate Sodium/Senna 50/8.6mg Tab) 2 tab PO HS [facility] Stop: 10/04/22 20:59 Torsemide (Torsemide 100 Mg Tab) 100 mg PO QAM [facility] Stop: 10/04/22 08:59 Last Admin: 09/04/22 08:32 Dose: 100 mg Tramadol HCl (Tramadol Hcl 50 Mg Tablet) 25 mg PO Q8H PRN PRN Reason: Pain Stop: 10/04/22 10:33 Last Admin: 09/04/22 11:52 Dose: 25 mg
--- NOTE | 2022-09-04 15:02 | XRay Report ---
AP CHEST WITH RIGHT-SIDED RIB SERIES CLINICAL HISTORY: Atraumatic right-sided chest wall pain. FINDINGS: An AP upright chest radiograph with 4 additional views from a right sided rib series is com pared to study dated 09/01/2022 and correlated with chest CT dated 08/12/2020. A right-sided central rosalinda ous catheter is new from previous. The tip projects over the cavoatrial junction. The heart is enlarg ed noting atherosclerotic calcification of the thoracic aorta. The pulmonary vasculature is nonconges amy. There is chronic elevation of the right hemidiaphragm with bibasilar atelectasis. No airspace co nsolidation or large pleural effusion is identified. No pneumothorax is seen. The skeletal structures are osteopenic. There is no radiographic evidence of acute/displaced right-sided rib fracture on the rib series. The remainder of the bony thorax is grossly intact. Arthritic change is noted in the dane ulders. Fusion hardware is noted in the lumbosacral spine. IMPRESSION: 1. Cardiomegaly with no acute cardiopulmonary abnormality. 2. There is no radiographic evidence of acute/displaced right-sided rib fracture on the rib series. ACT 112: Negative or not required by law. Electronically signed by: Silvano Cuevas M.D. 09/04/2022 3:01 PM
[2022-09-04] MEDS ORDERED: LACTULOSE SYRUP 30 GM/45 ML UDP PO STA (15:25)
[2022-09-04] MEDS ORDERED: BACLOFEN 10 MG TAB PO PRN (17:26)
[2022-09-04] MEDS: DOCUSATE SODIUM/SENNA 50/8.6MG TAB PO SCH (21:05)
[2022-09-05] MEDS: ACETAMINOPHEN 500 MG TAB PO SCH ×5 (01:47→22:46)
[2022-09-05] MEDS ORDERED: traMADol HCL 50 MG TABLET PO STA (02:53)
[2022-09-05] MEDS ORDERED: HYDROmorphone INJ 0.5 MG/0.5 ML SYR IV STA (03:45)
[2022-09-05] MEDS: LEVOTHYROXINE SODIUM 150 MCG TABLET PO SCH (03:55)
[2022-09-05] MEDS ORDERED: SODIUM CHLORIDE 0.9% 1000ML 1,000 ML IV PRN (07:00)
[2022-09-05] MEDS ORDERED: HEPARIN SOD (PORCINE) 1000 UNIT/ML IV ONE (07:00)
[2022-09-05 07:51] LABS: Vitamin D, 25 Hydrox 63.9 ng/ml (30-100)
[2022-09-05] MEDS: TORSEMIDE 100 MG TAB PO SCH (08:12)
[2022-09-05] MEDS: ASPIRIN 81 MG ECTAB PO SCH (08:12)
[2022-09-05] MEDS: APIXABAN 2.5 MG TAB PO SCH ×2 (08:13→20:17)
[2022-09-05] MEDS: allopurinoL 100 MG TAB PO SCH (08:13)
[2022-09-05] MEDS: POTASSIUM CHLORIDE CRTAB 20 MEQ TABCR PO SCH (08:13)
[2022-09-05] MEDS: POLYETHYLENE (MIRALAX) 17 GM PACK PO SCH (08:15)
[2022-09-05] MEDS: DICLOFENAC SOD 1% GEL 100 GM TUBE EXT SCH ×3 (08:15→20:17)
[2022-09-05] MEDS: LIDOCAINE 5% 1 PATCH TD SCH (08:15)
[2022-09-05] MEDS ORDERED: MoRPHine SULFATE 4 MG/ML 1 ML CARP\\VIAL IV STA (09:18)
[2022-09-05] MEDS: INSULIN ASPART PER UNIT CHARGE SC SCH ×4 (09:29→20:26)
--- NOTE | 2022-09-05 11:29 | Dialysis Progress Note ---
Date of Service September 05, 2022 Assessment & Plan Admission and Anticipated Discharge Date Admission Date: September 03, 2022 Subjective S---seen during Dialysis.Earlier had lot of pain but now after pain meds it is good. CVC fine. BP fine. PHYSICAL EXAMINATION: GENERAL: Elderly white male who is not in any overt respiratory distress. He is awake, alert and oriented. HEENT: Mucous membrane is moist. NECK: Supple. No jugular venous distention. CHEST: Bilateral decreased breath sounds, occasional basal crackles. CARDIOVASCULAR: S1 and S2, irregular systolic murmur soft heard. ABDOMEN: Soft, nontender. EXTREMITIES: Show no edema. LABORATORY TEST: Reviewed in detail as well as the imaging. ASSESSMENT AND PLAN: An 82-year-old male who has longstanding chronic kidney disease, which has now progressed to end-stage renal disease needing dialysis. Now admitted with unexplained abdominal/flank/back pain. 1. End-stage renal disease. He does have a peritoneal dialysis catheter in place; however, given ongoing issue with this unexplained abdominal/flank/back pain, it will be very tricky to start peritoneal dialysis. Abdominal pain is taken as an absolute emergency and peritoneal dialysis to rule out peritonitis. Given that he is still having intermittent severe pain, it will create a lot of trip to the Emergency Department as well as testing. He is also very constipated both these problems can cause significant problem and confusion with starting PD. Given this, I want him to have a tunneled dialysis catheter and then start maintenance hemodialysis. Once the issue of this pain has been resolved, then we will switch him over to peritoneal dialysis. In the meantime, we will be doing flushing of the PD catheter as well as sterile dressing. This will be done by dialysis nurse while inpatient and by the peritoneal dialysis nurse after discharg Now has tunnelled HD cath as well as PD. 3hr 3k and take 1/2 kilo off. Will do dressing exchange of the PD also. Plan is to do 3hrs of hemodialysis today--Give heparin 1000 units. Can be discharged as long as we have pain under control and/or pain meds given to him for use at home Results & Data Vital Signs (Past 12 Hours) Vital Signs Temp Pulse Pulse Pulse Resp BP BP 09/05/22 10:30 73 106/71 09/05/22 10:00 99 H 135/103 H 09/05/22 09:54 117 H 145/84 H 09/05/22 09:46 37.1 C 79 09/05/22 08:20 36.8 C 86 18 154/80 H Pulse Ox O2 Del Method 09/05/22 10:30 09/05/22 10:00 09/05/22 09:54 09/05/22 09:46 09/05/22 08:20 96 Room Air
[2022-09-05] MEDS: METOPROLOL TARTRATE 25 MG TAB PO SCH ×3 (13:20→20:18)
[2022-09-05] MEDS: oxyCODONE HCL IR 5 MG TAB (IMMEDIATE RELEASE) PO PRN (13:55)
--- NOTE | 2022-09-05 16:18 | Hospitalist Progress Note ---
Date of Service September 05, 2022 Assessment & Plan (1) Acute right flank pain: (2) Elevated lipase: (3) Cholelithiasis: (4) Kidney lesion: (5) Pancreatic cyst: (6) ANGY (iron deficiency anemia): (7) ESRD (end stage renal disease): (8) Peritoneal dialysis catheter in situ: (9) Chronic diastolic CHF (congestive heart failure): (10) Atrial fibrillation: (11) Hypothyroidism: (12) DM type 2 (diabetes mellitus, type 2): (13) Hyponatremia: Plan This is an 82-year-old male with PMH DM type II, hypothyroidism, pancreatic cyst, chronic diastolic CHF, atrial fibrillation on Eliquis, HTN, LBBB, ESRD with peritoneal dialysis catheter in place, history of thyroid cancer, history of prostate cancer, and other problems listed below who presents to the ED with recurrent right flank pain. Recurrent R flank pain Cholelithiasis Elevated lipase Admitted earlier this week with similar pain - liver ultrasound showed gall bladder sludge, HIDA scan was negative for any acute cholecystitis/cystic duct obstruction Pain recurred last evening after eating broth based soup for dinner Pain resolved with IV morphine in ED, ADAT Pain continues to come and go GI feels maybe constipation? recs a good bowel regimen will change to Senna S 2 at HS and scheduled miralax obtain rib series Xray-did not show any rib fracture lidocaine patch, prn tramadol, heat Does not have any rash to justify shingles and does not have any radiculopathic pain to justify any significant nerve entrapment still could have Has been on muscle relaxant and will add oral oxycodone Received 1 dose of Dilaudid last night and will give 4 mg of morphine intravenously today before dialysis Likely discharge tomorrow ESRD (end stage renal disease) Peritoneal dialysis catheter in place, was due to start today prior to admission Per nephrology patient to require hemodialysis due to abdominal pain Pt had tunneled cath placed at [facility] and returned yesterday to have 2 hrs today Next dialysis on Wednesday as an outpatient Atrial fibrillation continue metoprolol and eliquis No acute symptoms Chronic diastolic CHF (congestive heart failure) Appears euvolemic, continue torsemide potassium reduced DM type 2 (diabetes mellitus, type 2) Hgb A1c 7.4 08/2022 Hold oral agents and utilize NovoLog per protocol while hospitalized bsg 132, 175 Hyponatremia Na 134, chronic, at recent baseline Continue to monitor ANGY (iron deficiency anemia) Receives iron infusions Hypothyroidism Continue levothyroxine DVT Ppx: Eliquis Code status: DNR per discussion PCP: Nati Dispo: Admitted to med/surg Admission and Anticipated Discharge Date Admission Date: September 03, 2022 Subjective 09/05/2022 The patient was seen and examined in medical floor He has been complaining of increasing episodic pain right lower lateral abdominal wall He was not willing to go to dialysis today because of the pain and he wanted to sign out AMA Morphine 4 mg IV was given and started with oral oxycodone Received dialysis today and like to go home tomorrow Review of Systems Review of Systems: All systems reviewed and are unremarkable except as noted below Physical Exam Physical Exam: Sitting at the edge of the bed without any acute distress Constitutional: well developed, well nourished, + ill appearing and + obese Eyes: PERRL, conjunctivae normal, anicteric sclerae ENMT: external ear and nose normal, oropharynx normal Neck: trachea midline, no thyromegaly Respiratory: no respiratory distress Auscultation: lungs clear to auscultation bilaterally Cardiovascular: Rate/Rhythm: regular rate, regular rhythm and + tachycardic Heart Sounds: normal S1 and normal S2; no murmur Extremities: + edema Gastrointestinal (Abdomen): Inspection/Auscultation: normal bowel sounds; abdomen not distended Percussion/Palpation: + abdomen tender (Tender in the left lateral wall of abdomen and the flank area) and abdomen soft Musculoskeletal: No acute arthritis involving any joint Neurologic: normal touch/pain/proprioception and moves all extremities; no focal motor deficits Psychiatric: A+Ox3, euthymic affect Lymphatic: no cervical or axillary lymphadenopathy Results & Data Results & Data Vital Signs (Past 12 Hours) Vital Signs Temp Pulse Pulse Pulse Pulse Resp BP 09/05/22 14:53 36.6 C 107 H 16 09/05/22 13:10 36.9 C 95 H 09/05/22 12:30 92 H 141/96 H 09/05/22 12:00 104 H 136/101 H 09/05/22 11:30 103 H 119/91 09/05/22 11:00 90 108/82 09/05/22 10:30 73 106/71 09/05/22 10:00 99 H 135/103 H 09/05/22 09:54 117 H 145/84 H 09/05/22 09:46 37.1 C 79 09/05/22 08:20 36.8 C 86 18 BP Pulse Ox O2 Del Method 09/05/22 14:53 121/86 94 Room Air 09/05/22 13:10 143/105 H 09/05/22 12:30 09/05/22 12:00 09/05/22 11:30 09/05/22 11:00 09/05/22 10:30 09/05/22 10:00 09/05/22 09:54 09/05/22 09:46 09/05/22 08:20 154/80 H 96 Room Air Medications Administered Current Inpatient Medications Acetaminophen (Acetaminophen 500 Mg Tab) 1,000 mg PO Q8H [facility] Stop: 10/03/22 15:44 Last Admin: 09/05/22 08:08 Dose: 1,000 mg Allopurinol (Allopurinol 100 Mg Tab) 100 mg PO QAM [facility] [place] Stop: 10/04/22 08:59 Last Admin: 09/05/22 08:13 Dose: 100 mg Apixaban (Apixaban 2.5 Mg Tab) 2.5 mg PO BID [facility] Stop: 10/04/22 08:59 Last Admin: 09/05/22 08:13 Dose: 2.5 mg Aspirin (Aspirin 81 Mg Ectab) 81 mg PO DAILY [facility] Stop: 10/04/22 08:59 Last Admin: 09/05/22 08:12 Dose: 81 mg Baclofen (Baclofen 10 Mg Tab) 5 mg PO TID PRN PRN Reason: back pain Stop: 10/04/22 20:59 Last Admin: 09/05/22 02:01 Dose: 5 mg Dextrose (Dextrose 50% 50 Ml Syringe) 25 - 50 ml IV UD PRN; Protocol PRN Reason: Hypoglycemia Protocol Stop: 10/03/22 17:08 Diclofenac Sodium (Diclofenac Sod 1% Gel 100 Gm Tube) 2 gm EXT TID [facility]ILI; Protocol Stop: 10/03/22 20:59 Last Admin: 09/05/22 13:55 Dose: 2 gm Glucagon (Glucagon For Inj 1 Mg Vial) 1 mg SQ UD PRN; Protocol PRN Reason: Hypoglycemia Protocol Stop: 10/03/22 17:08 Glucose (Glucose 40% Gel 15 Gm Tube) 15 - 30 gm PO UD PRN; Protocol PRN Reason: Hypoglycemia Protocol Stop: 10/03/22 17:08 Glucose (Glucose 10 Tab/Tube) 4 - 8 tab PO UD PRN; Protocol PRN Reason: Hypoglycemia Treatment Stop: 10/03/22 17:08 Insulin Aspart (Insulin Aspart Per Unit Charge) 0 units SC ACHS [facility] Stop: 10/03/22 20:59 Last Admin: 09/05/22 13:22 Dose: Not Given Levothyroxine Sodium (Levothyroxine Sodium 150 Mcg Tablet) 150 mcg PO DAILYBB [facility] Stop: 10/04/22 06:29 Last Admin: 09/05/22 03:55 Dose: 150 mcg Lidocaine (Lidocaine 5% 1 Patch) 1 patch TD QAM [facility] Stop: 10/04/22 08:59 Last Admin: 09/05/22 08:15 Dose: 1 patch Metoprolol Tartrate (Metoprolol Tartrate 25 Mg Tab) 25 mg PO TID [facility] Stop: 10/03/22 20:59 Last Admin: 09/05/22 13:56 Dose: Not Given Miscellaneous (Carbohydrates For Hypoglycemia ) 15 - 30 gm PO UD PRN PRN Reason: Hypoglycemia Protocol Stop: 10/03/22 17:08 Miscellaneous (Remove Lidoderm Patch) 1 each N/A DAILY@2100 [facility] [place] Stop: 10/04/22 20:59 Last Admin: 09/04/22 21:05 Dose: 1 each Oxycodone HCl (Oxycodone Hcl Ir 5 Mg Tab (Immediate Release)) 5 mg PO Q4H PRN PRN Reason: Pain Stop: 09/19/22 08:47 Last Admin: 09/05/22 13:55 Dose: 5 mg Polyethylene Glycol (Polyethylene (Miralax) 17 Gm Pack) 17 gm PO DAILY [facility] Stop: 10/03/22 17:14 Last Admin: 09/05/22 08:15 Dose: 17 gm Potassium Chloride (Potassium Chloride Crtab 20 Meq Tabcr) 20 meq PO DAILY [facility] Stop: 10/04/22 08:59 Last Admin: 09/05/22 08:13 Dose: 20 meq Senna/Docusate Sodium (Docusate Sodium/Senna 50/8.6mg Tab) 2 tab PO HS [facility] Stop: 10/04/22 20:59 Last Admin: 09/04/22 21:05 Dose: Not Given Torsemide ([facility]semide 100 Mg Tab) [facility] Stop: 10/04/22 08:59 Last Admin: 09/05/22 08:12 Dose: 100 mg
[2022-09-05] MEDS: PROMETHAZINE HCL 12.5 MG in SODIUM CHLORIDE 0.9% 50 ML IV PRN (16:52)
[2022-09-05] MEDS: DOCUSATE SODIUM/SENNA 50/8.6MG TAB PO SCH (20:18)
[2022-09-05] MEDS: hydrOXYzine HCl 10 MG TAB PO PRN (21:18)
[2022-09-06] MEDS ORDERED: LORazepam 0.5 MG TAB PO STA (00:21)
[2022-09-06] MEDS: LEVOTHYROXINE SODIUM 150 MCG TABLET PO SCH (05:44)
[2022-09-06] MEDS: oxyCODONE HCL IR 5 MG TAB (IMMEDIATE RELEASE) PO PRN ×2 (08:09→12:16)
[2022-09-06] MEDS: PROMETHAZINE HCL 12.5 MG in SODIUM CHLORIDE 0.9% 50 ML IV PRN (08:18)
[2022-09-06] MEDS: INSULIN ASPART PER UNIT CHARGE SC SCH ×4 (08:21→21:00)
[2022-09-06] MEDS: METOPROLOL TARTRATE 25 MG TAB PO SCH ×3 (08:23→21:00)
[2022-09-06] MEDS: APIXABAN 2.5 MG TAB PO SCH ×2 (08:24→21:01)
[2022-09-06] MEDS: ASPIRIN 81 MG ECTAB PO SCH (08:25)
[2022-09-06] MEDS: allopurinoL 100 MG TAB PO SCH (08:25)
[2022-09-06] MEDS: POLYETHYLENE (MIRALAX) 17 GM PACK PO SCH (08:26)
[2022-09-06] MEDS: DICLOFENAC SOD 1% GEL 100 GM TUBE EXT SCH ×3 (08:26→21:02)
[2022-09-06] MEDS: LIDOCAINE 5% 1 PATCH TD SCH (08:26)
[2022-09-06] MEDS: POTASSIUM CHLORIDE CRTAB 20 MEQ TABCR PO SCH (08:26)
[2022-09-06] MEDS: TORSEMIDE 100 MG TAB PO SCH (08:26)
[2022-09-06] MEDS: ACETAMINOPHEN 500 MG TAB PO SCH ×3 (08:35→22:45)
[2022-09-06] MEDS: hydrOXYzine HCl 10 MG TAB PO PRN ×2 (12:13→21:00)
[2022-09-06] MEDS ORDERED: MoRPHine SULFATE 4 MG/ML 1 ML CARP\\VIAL IV STA (13:37)
--- NOTE | 2022-09-06 13:52 | Psychiatric Consultation ---
Date of Consultation September 06, 2022 Impression / Recommendations Impression Diagnostically consistent with adjustment disorder with depressed mood due to worsening flank pain and ongoing medical challenges. He may benefit from mirtazapine, SSRI or SNRI trial to help with sleep and mood symptoms however this is complicated by chronic hyponatremia and advanced renal disease on dialysis. Overall seems that once pain improves his mood will improve significantly and mood symptoms are closely tied to physical pain. (1) Acute right flank pain: (2) ESRD (end stage renal disease): (3) Adjustment disorder with depressed mood: Plan -Consider trial of mirtazapine 7.5mg HS (and could increase to 15mg HS if Na+ remains stable), defer initiation to hospitalist and professor of geology given chronic hyponatremia -Alternative option would be low dose SSRI trial or SNRI such as duloxetine 30mg daily which may also help with pain but again defer to hospitalist and professor of geology given duloxetine is often contraindicated in advanced renal disease and hyponatremia -If anxiety re-occurs ok to consider limited use of ativan 0.25mg to 0.5mg BID prn (with caution for increased risk of cognitive effects, falls, delirium and respiratory suppression if combined with opioids) Psych History Identifying Data 82 yo man with history of multiple medical conditions including DM type II, hypothyroidism, chronic diastolic CHF, atrial fibrillation on Eliquis, HTN, ESRD with peritoneal dialysis catheter in place, history of thyroid cancer, history of prostate cancer admitted medically for recurrent severe flank pain. Psychiatry consulted for recommendations for mood symptoms. Chief Complaint "I'm good but when I'm in pain comes the depression". History of Present Illness Brady was seen by the psych liason last night and endorsed symtpoms of depression, difficulty sleeping, and periods of hopelessness with passive SI. He declined prn ativan that was ordered last night to help with his sleep and today reports his mood is "good" due to improved pain control. States that when the pain worsens he experiences feelings of depression and at times passive SI due to concerns that he'll have to live the rest of his life with such high pain. When the pain is under control he feels good again. Currently he denies any depression symptoms, denies anxiety, and denies SI. He's hopeful that his pain will continue to get better. 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 Allergies Allergy/AdvReac Type Severity Reaction Status Date / Time clonidine Allergy Unknown allergic Unverified 08/29/22 18:51 to all but 1 brand carvedilol Allergy Hives Verified 08/29/22 18:51 losartan Allergy Unknown Verified 08/29/22 18:51 ANJELICA Inhibitors AdvReac Intermediate INTOLERANCE Verified 08/29/22 18:51 PER MD SALAZAR allopurinol AdvReac Intermediate severe abd Verified 08/29/22 18:51 pain Beta-Blockers AdvReac Intermediate INTOLERANCE Verified 08/29/22 18:51 (Beta-Adrenergic Bloc PER DR ARELLANO doxazosin AdvReac Intermediate INTOLERANCE Verified 08/29/22 18:[address] ARELLANO [id number] Reductase AdvReac Intermediate INTOLERANCE Verified 08/29/22 18:51 Inhibitor PER [[id number]-Rgu Reductase ADAN Inhibitor] citalopram AdvReac Unknown Verified 08/29/22 18:51 hydralazine AdvReac diarrhea, Verified 08/29/22 18:51 testicular pain hydrochlorothiazide AdvReac hyponatremi Verified 08/29/22 18:51 a lisinopril AdvReac Cough Verified 08/29/22 18:51 simvastatin [From Zocor] AdvReac Muscle Pain Verified 08/29/22 18:51 sitagliptin [From Januvia] AdvReac restlessnes Verified 08/29/22 18:51 s Home Medications Medication Instructions Recorded Confirmed Type allopurinol 100 mg tablet 100 mg PO QAM 02/25/18 09/03/22 History aspirin 81 mg tablet,delayed 81 mg PO DAILY 02/25/18 09/03/22 History release levothyroxine 150 mcg tablet 150 mcg PO DAILYBB 08/12/20 09/03/22 History multivitamin 1 tab PO DAILY 08/12/20 09/03/22 History B-complex with vitamin C 1 tab PO DAILY 08/29/22 09/03/22 History apixaban 2.5 mg tablet (Eliquis) 2.5 mg PO BID 08/29/22 09/03/22 History docusate sodium 100 mg tablet 100 mg PO DAILY 08/29/22 09/03/22 History glipizide 2.5 mg tablet, extended 2.5 mg PO QAM 08/29/22 09/03/22 History release 24 hr hydroxyzine HCl 10 mg tablet 10 mg PO TID PRN Anxiety 08/29/22 09/03/22 History linagliptin 5 mg tablet (Tradjenta) 5 mg PO QAM 08/29/22 09/03/22 History metoprolol tartrate 25 mg tablet 25 mg PO TID 08/29/22 09/03/22 History potassium chloride 20 mEq 40 meq PO DAILY 08/29/22 09/03/22 History tablet,extended release torsemide 100 mg tablet 100 mg PO QAM 08/29/22 09/03/22 History polyethylene glycol 3350 17 gram 17 g PO DAILY #14 ea 09/02/22 09/03/22 Rx oral powder packet (Miralax) Patient History Medical History Atrial fibrillation Chronic diastolic CHF (congestive heart failure) COPD (chronic obstructive pulmonary disease) DM type 2 (diabetes mellitus, type 2) ESRD (end stage renal disease) Gout Hypertension Hypothyroidism ANGY (iron deficiency anemia) LBBB (left bundle branch block) Pancreatic cyst Peritoneal dialysis catheter in situ Prostate ca Pulmonary hypertension Spinal stenosis Thyroid cancer Surgical History S/P lumbar fusion Family History Other Diabetes Hypertension Social History Smoking Status: Former smoker Cigarettes Per Day: 10; Second Hand Exposure: No; Do You Dip or Chew Tobacco: Yes; Hx Alcohol Use: No Hx Substance Use: No Preferred Language: Sami Communication Ability: Effective Manager Collection Required: No Beliefs That Will Affect Care: None marital status: Current Living Situation: Spouse Feels Safe at Home: Yes Safety Concerns: Feels Safe At This Time Assistive Devices: Cane and Walker Physical Exam Psychiatric: Orientation: alert and oriented x 3 Apperance: appropriately dressed and appropriately groomed Eye Contact: good eye contact Motor Behavior: no abnormal motor movements Speech: normal rate/rhythm/volume of speech Affect: euthymic affect Mood: + depressed mood (intermittently); no anxious mood Thought Process: goal directed thought process Thought Content: reality based without delusions Suicidal Thoughts: denies suicidal plan and denies suicidal intent; + reports suicidal thoughts (intermittent passive SI) Homicidal Thoughts: denies homicidal thoughts Hallucinations: no auditory hallucinations and no visual hallucinations Cognition: attention grossly intact and language grossly intact Estimated Intelligence: consistent with education level Insight: + fair insight Judgment: + fair judgement Vital Signs (Past 24 Hours): Last Vital Signs Temp 36.7 C 09/06/22 07:19 Pulse 78 09/06/22 07:19 Resp 18 09/06/22 07:19 BP 126/90 09/06/22 07:19 Pulse Ox 95 09/06/22 07:19 O2 Del Method Room Air 09/06/22 07:19 Review of Systems All systems reviewed & are unremarkable except as noted in HPI & below Results & Data (PSY) Laboratory Results low Na+ Medications Administered Acetaminophen (Acetaminophen 500 Mg Tab) 1,000 mg PO Q8H LILI Stop: 10/03/22 15:44 Last Admin: 09/06/22 08:35 Dose: Not Given Documented By: Admin: 09/05/22 22:46 Dose: Not Given Documented By: JOSÉ LUIS Admin: 09/05/22 17:29 Dose: 1,000 mg Documented By: Admin: 09/05/22 08:08 Dose: 1,000 mg Documented By: Admin: 09/05/22 01:47 Dose: 1,000 mg Documented By: JOSÉ LUIS Admin: 09/04/22 23:31 Dose: Not Given Documented By: JOSÉ LUIS Admin: 09/04/22 16:18 Dose: 1,000 mg Documented By: Admin: 09/04/22 08:26 Dose: 1,000 mg Documented By: Admin: 09/03/22 23:36 Dose: 1,000 mg Documented By: Admin: 09/03/22 17:39 Dose: 1,000 mg Documented By: JANESSA Allopurinol (Allopurinol 100 Mg Tab) 100 mg PO QAM LILI Stop: 10/04/22 08:59 Last Admin: 09/06/22 08:25 Dose: 100 mg Documented By: Admin: 09/05/22 08:13 Dose: 100 mg Documented By: Admin: 09/04/22 08:27 Dose: 100 mg Documented By: TOSHIA Apixaban (Apixaban 2.5 Mg Tab) 2.5 mg PO BID LILI Stop: 10/04/22 08:59 Last Admin: 09/06/22 08:24 Dose: 2.5 mg Documented By: Admin: 09/05/22 20:17 Dose: 2.5 mg Documented By: JOSÉ LUIS Admin: 09/05/22 08:13 Dose: 2.5 mg Documented By: Admin: 09/04/22 21:05 Dose: 2.5 mg Documented By: JOSÉ LUIS Admin: 09/04/22 08:27 Dose: 2.5 mg Documented By: TOSHIA Aspirin (Aspirin 81 Mg Ectab) 81 mg PO DAILY LILI Stop: 10/04/22 08:59 Last Admin: 09/06/22 08:25 Dose: 81 mg Documented By: Admin: 09/05/22 08:12 Dose: 81 mg Documented By: Admin: 09/04/22 08:28 Dose: 81 mg Documented By: TOSHIA Baclofen (Baclofen 10 Mg Tab) 5 mg PO TID PRN PRN Reason: back pain Stop: 10/04/22 20:59 Last Admin: 09/05/22 02:01 Dose: 5 mg Documented By: JOSÉ LUIS Diclofenac Sodium (Diclofenac Sod 1% Gel 100 Gm Tube) 2 gm EXT TID LILI; Protocol Stop: 10/03/22 20:59 Last Admin: 09/06/22 08:26 Dose: 2 gm Documented By: Admin: 09/05/22 20:17 Dose: 2 gm Documented By: JOSÉ LUIS Admin: 09/05/22 13:55 Dose: 2 gm Documented By: Admin: 09/05/22 08:15 Dose: 2 gm Documented By: Admin: 09/04/22 21:05 Dose: 2 gm Documented By: JOSÉ LUIS Admin: 09/04/22 16:21 Dose: 2 gm Documented By: Admin: 09/04/22 11:55 Dose: 2 gm Documented By: Admin: 09/03/22 20:49 Dose: 2 gm Documented By: ADZ Hydroxyzine HCl (Hydroxyzine Hcl 10 Mg Tab) 10 mg PO TID PRN PRN Reason: Anxiety Stop: 10/05/22 20:32 Last Admin: 09/06/22 12:13 Dose: 10 mg Documented By: Admin: 09/05/22 21:18 Dose: 10 mg Documented By: EGS Promethazine HCl 12.5 mg/ (Sodium Chloride) 50.5 mls @ 202 mls/hr IV Q6H PRN PRN Reason: Nausea And Vomiting Stop: 10/05/22 16:42 Last Infusion: 09/06/22 08:36 Dose: 0 mls/hr Documented By: Admin: 09/06/22 08:18 Dose: 202 mls/hr Documented By: Infusion: 09/05/22 17:28 Dose: 0 mls/hr Documented By: Admin: 09/05/22 16:52 Dose: 202 mls/hr Documented By: AISSATOU Insulin Aspart (Insulin Aspart Per Unit Charge) 0 units SC ACHS [facility] Stop: 10/03/22 20:59 Last Admin: 09/06/22 13:37 Dose: Not Given Documented By: Admin: 09/06/22 08:21 Dose: 7 units Documented By: AISSATOU Co-signed By: CHUCK Admin: 09/05/22 20:26 Dose: Not Given Documented By: Admin: 09/05/22 17:28 Dose: 4 units Documented By: AISSATOU Co-signed By: CHUCK Admin: 09/05/22 13:22 Dose: Not Given Documented By: Admin: 09/05/22 09:29 Dose: Not Given Documented By: Admin: 09/04/22 21:22 Dose: Not Given Documented By: Admin: 09/04/22 17:41 Dose: 4 units Documented By: TOSHIA Co-signed By: LEONARD Admin: 09/04/22 13:17 Dose: 4 units Documented By: TOSHIA Co-signed By: CARLOS MANUEL Admin: 09/04/22 08:24 Dose: 4 units Documented By: TOSHIA Co-signed By: ALFONZO Admin: 09/03/22 22:38 Dose: Not Given Documented By: ADZ Levothyroxine Sodium (Levothyroxine Sodium 150 Mcg Tablet) [facility]: 10/04/22 06:29 Last Admin: 09/06/22 05:44 Dose: Not Given Documented By: Admin: 09/05/22 03:55 Dose: 150 mcg Documented By: Admin: 09/04/22 06:25 Dose: 150 mcg Documented By: ADZ Lidocaine (Lidocaine 5% 1 Patch) [facility] [place] Stop: 10/04/22 08:59 Last Admin: 09/06/22 08:26 Dose: 1 patch Documented By: Admin: 09/05/22 08:15 Dose: 1 patch Documented By: Admin: 09/04/22 09:41 Dose: 1 patch Documented By: TOSHIA Metoprolol Tartrate (Metoprolol Tartrate 25 Mg Tab) 25 mg PO TID LILI Stop: 10/03/22 20:59 Last Admin: 09/06/22 08:23 Dose: 25 mg Documented By: Admin: 09/05/22 20:18 Dose: 25 mg Documented By: JOSÉ LUIS Admin: 09/05/22 13:56 Dose: Not Given Documented By: Admin: 09/05/22 13:20 Dose: 25 mg Documented By: Admin: 09/04/22 21:05 Dose: 25 mg Documented By: JOSÉ LUIS Admin: 09/04/22 16:19 Dose: 25 mg Documented By: Admin: 09/04/22 08:31 Dose: 25 mg Documented By: Admin: 09/03/22 20:55 Dose: 25 mg Documented By: DAVE Miscellaneous (Remove Lidoderm Patch) 1 each N/A DAILY@2100 [facility] Stop: 10/04/22 20:59 Last Admin: 09/05/22 20:23 Dose: 1 each Documented By: JOSÉ LUIS Admin: 09/04/22 21:05 Dose: 1 each Documented By: JOSÉ LUIS Oxycodone HCl (Oxycodone Hcl Ir 5 Mg Tab (Immediate Release)) 5 mg PO Q4H PRN PRN Reason: Pain Stop: 09/19/22 08:47 Last Admin: 09/06/22 12:16 Dose: 5 mg Documented By: Admin: 09/06/22 08:09 Dose: 5 mg Documented By: Admin: 09/05/22 13:55 Dose: 5 mg Documented By: AISSATOU Polyethylene Glycol (Polyethylene (Miralax) 17 Gm Pack) 17 gm PO DAILY [facility] Stop: 10/03/22 17:14 Last Admin: 09/06/22 08:26 Dose: 17 gm Documented By: Admin: 09/05/22 08:15 Dose: 17 gm Documented By: Admin: 09/04/22 08:31 Dose: 17 gm Documented By: Admin: 09/03/22 17:39 Dose: 17 gm Documented By: JANESSA Potassium Chloride (Potassium Chloride Crtab 20 Meq Tabcr) 20 meq PO DAILY [facility]I Stop: 10/04/22 08:59 Last Admin: 09/06/22 08:26 Dose: 20 meq Documented By: Admin: 09/05/22 08:13 Dose: 20 meq Documented By: Admin: 09/04/22 08:32 Dose: 20 meq Documented By: TOSHIA Senna/Docusate Sodium (Docusate Sodium/Senna 50/8.6mg Tab) 2 tab PO HS [facility]I Stop: 10/04/22 20:59 Last Admin: 09/05/22 20:18 Dose: Not Given Documented By: JOSÉ LUIS Admin: 09/04/22 21:05 Dose: Not Given Documented By: JOSÉ LUIS Torsemide (Torsemide 100 Mg Tab) 100 mg PO QAM [facility] Stop: 10/04/22 08:59 Last Admin: 09/06/22 08:26 Dose: 100 mg Documented By: Admin: 09/05/22 08:12 Dose: 100 mg Documented By: Admin: 09/04/22 08:32 Dose: 100 mg Documented By: TOSHIA Coding Level of Care Code 25564 IN/OBS CONSULT LVL 3,45M Diagnoses Acute right flank pain R10.9 ESRD (end stage renal disease) N18.6 Adjustment disorder with depressed mood F43.21 Time Spent (min) 55
--- NOTE | 2022-09-06 14:56 | Hospitalist Progress Note ---
Date of Service September 06, 2022 Assessment & Plan (1) Acute right flank pain: (2) Elevated lipase: (3) Cholelithiasis: (4) Kidney lesion: (5) Pancreatic cyst: (6) ANGY (iron deficiency anemia): (7) ESRD (end stage renal disease): (8) Peritoneal dialysis catheter in situ: (9) Chronic diastolic CHF (congestive heart failure): (10) Atrial fibrillation: (11) Hypothyroidism: (12) DM type 2 (diabetes mellitus, type 2): (13) Hyponatremia: Plan This is an 82-year-old male with PMH DM type II, hypothyroidism, pancreatic cyst, chronic diastolic CHF, atrial fibrillation on Eliquis, HTN, LBBB, ESRD with peritoneal dialysis catheter in place, history of thyroid cancer, history of prostate cancer, and other problems listed below who presents to the ED with recurrent right flank pain. Recurrent R flank pain Cholelithiasis Elevated lipase Admitted earlier this week with similar pain - liver ultrasound showed gall bladder sludge, HIDA scan was negative for any acute cholecystitis/cystic duct obstruction Pain recurred last evening after eating broth based soup for dinner Pain resolved with IV morphine in ED, ADAT Pain continues to come and go GI feels maybe constipation? recs a good bowel regimen will change to Senna S 2 at HS and scheduled miralax obtain rib series Xray-did not show any rib fracture lidocaine patch, prn tramadol, heat Does not have any rash to justify shingles and does not have any radiculopathic pain to justify any significant nerve entrapment still could have Has been on muscle relaxant and will add oral oxycodone Received 1 dose of Dilaudid last night and will give 4 mg of morphine intravenously today before dialysis Pain was controlled initially but later on it came on all of a sudden Was given 1 dose of intravenous morphine on top of current medications and will get repeat CT of the abdomen and pelvis Will start with baclofen regularly and continue with Oxy IR as needed ESRD (end stage renal disease) Peritoneal dialysis catheter in place, was due to start today prior to admission Per nephrology patient to require hemodialysis due to abdominal pain Pt had tunneled cath placed at [facility] and returned yesterday to have 2 hrs today Next dialysis on Wednesday as an outpatient Next dialysis is on Wednesday Atrial fibrillation continue metoprolol and eliquis No acute symptoms Chronic diastolic CHF (congestive heart failure) Appears euvolemic, continue torsemide potassium reduced DM type 2 (diabetes mellitus, type 2) Hgb A1c 7.4 08/2022 Hold oral agents and utilize NovoLog per protocol while hospitalized bsg 132, 175 Hyponatremia Na 134, chronic, at recent baseline Continue to monitor ANGY (iron deficiency anemia) Receives iron infusions Hypothyroidism Continue levothyroxine DVT Ppx: Eliquis Code status: DNR per discussion PCP: Nati Dispo: Admitted to med/surg Admission and Anticipated Discharge Date Admission Date: September 03, 2022 Subjective 09/05/2022 The patient was seen and examined in medical floor He has been complaining of increasing episodic pain right lower lateral abdominal wall He was not willing to go to dialysis today because of the pain and he wanted to sign out AMA Morphine 4 mg IV was given and started with oral oxycodone Received dialysis today and like to go home tomorrow 09/06/2022 The patient was seen and examined in medical floor about 3 times this morning Initially he was okay, later on 2 occasions his pain was worse with anxiety No acute distress Remains hemodynamically stable but noted to have tachycardia Review of Systems Review of Systems: All systems reviewed and are unremarkable except as noted below Physical Exam Physical Exam: Sitting at the edge of the bed without any acute distress Constitutional: well developed, well nourished, + ill appearing and + obese Eyes: PERRL, conjunctivae normal, anicteric sclerae ENMT: external ear and nose normal, oropharynx normal Neck: trachea midline, no thyromegaly Respiratory: no respiratory distress Auscultation: lungs clear to auscultation bilaterally Cardiovascular: Rate/Rhythm: regular rate, regular rhythm and + tachycardic Heart Sounds: normal S1 and normal S2; no murmur Extremities: + edema Gastrointestinal (Abdomen): Inspection/Auscultation: normal bowel sounds; abdomen not distended Percussion/Palpation: + abdomen tender (Tender in the left lateral wall of abdomen and the flank area) and abdomen soft Neurologic: normal touch/pain/proprioception and moves all extremities; no focal motor deficits Psychiatric: A+Ox3, euthymic affect Lymphatic: no cervical or axillary lymphadenopathy Results & Data Results & Data Vital Signs (Past 12 Hours) Vital Signs Temp Pulse Resp BP BP Pulse Ox O2 Del Method 09/06/22 14:29 36.9 C 122 H 18 124/89 95 Room Air 09/06/22 07:19 36.7 C 78 18 126/90 95 Room Air Medications Administered Current Inpatient Medications Acetaminophen (Acetaminophen 500 Mg Tab) 1,000 mg PO Q8H [facility] Stop: 10/03/22 15:44 Last Admin: 09/06/22 08:35 Dose: Not Given Allopurinol (Allopurinol 100 Mg Tab) 100 mg PO QAM [facility] Stop: 10/04/22 08:59 Last Admin: 09/06/22 08:25 Dose: 100 mg Apixaban (Apixaban 2.5 Mg Tab) 2.5 mg PO BID [facility] Stop: 10/04/22 08:59 Last Admin: 09/06/22 08:24 Dose: 2.5 mg Aspirin (Aspirin 81 Mg Ectab) 81 mg PO DAILY [facility] Stop: 10/04/22 08:59 Last Admin: 09/06/22 08:25 Dose: 81 mg Baclofen (Baclofen 10 Mg Tab) 5 mg PO TID PRN PRN Reason: back pain Stop: 10/04/22 20:59 Last Admin: 09/05/22 02:01 Dose: 5 mg Dextrose (Dextrose 50% 50 Ml Syringe) 25 - 50 ml IV UD PRN; Protocol PRN Reason: Hypoglycemia Protocol Stop: 10/03/22 17:08 Diclofenac Sodium (Diclofenac Sod 1% Gel 100 Gm Tube) 2 gm EXT TID LILI; Protocol Stop: 10/03/22 20:59 Last Admin: 09/06/22 14:33 Dose: 2 gm Glucagon (Glucagon For Inj 1 Mg Vial) 1 mg SQ UD PRN; Protocol PRN Reason: Hypoglycemia Protocol Stop: 10/03/22 17:08 Glucose (Glucose 40% Gel 15 Gm Tube) 15 - 30 gm PO UD PRN; Protocol PRN Reason: Hypoglycemia Protocol Stop: 10/03/22 17:08 Glucose (Glucose 10 Tab/Tube) 4 - 8 tab PO UD PRN; Protocol PRN Reason: Hypoglycemia Treatment Stop: 10/03/22 17:08 Hydroxyzine HCl (Hydroxyzine Hcl 10 Mg Tab) 10 mg PO TID PRN PRN Reason: Anxiety Stop: 10/05/22 20:32 Last Admin: 09/06/22 12:13 Dose: 10 mg Promethazine HCl 12.5 mg/ (Sodium Chloride) 50.5 mls @ 202 mls/hr IV Q6H PRN PRN Reason: Nausea And Vomiting Stop: 10/05/22 16:42 Last Infusion: 09/06/22 08:36 Dose: Infused Insulin Aspart (Insulin Aspart Per Unit Charge) 0 units SC ACHS [facility] Stop: 10/03/22 20:59 Last Admin: 09/06/22 13:37 Dose: Not Given Levothyroxine Sodium (Levothyroxine Sodium 150 Mcg Tablet) 150 mcg PO DAILYBB [facility] Stop: 10/04/22 06:29 Last Admin: 09/06/22 05:44 Dose: Not Given Lidocaine (Lidocaine 5% 1 Patch) 1 patch TD QAM [facility] Stop: 10/04/22 08:59 Last Admin: 09/06/22 08:26 Dose: 1 patch Metoprolol Tartrate (Metoprolol Tartrate 25 Mg Tab) 25 mg PO TID [facility] Stop: 10/03/22 20:59 Last Admin: 09/06/22 14:32 Dose: 25 mg Miscellaneous (Carbohydrates For Hypoglycemia ) 15 - 30 gm PO UD PRN PRN Reason: Hypoglycemia Protocol Stop: 10/03/22 17:08 Miscellaneous (Remove Lidoderm Patch) 1 each N/A DAILY@2100 [facility] Stop: 10/04/22 20:59 Last Admin: 09/05/22 20:23 Dose: 1 each Oxycodone HCl (Oxycodone Hcl Ir 5 Mg Tab (Immediate Release)) 5 mg PO Q4H PRN PRN Reason: Pain Stop: 09/19/22 08:47 Last Admin: 09/06/22 12:16 Dose: 5 mg Polyethylene Glycol (Polyethylene (Miralax) 17 Gm Pack) 17 gm PO DAILY [facility] Stop: 10/03/22 17:14 Last Admin: 09/06/22 08:26 Dose: 17 gm Potassium Chloride (Potassium Chloride Crtab 20 Meq Tabcr) 20 meq PO DAILY [facility] Stop: 10/04/22 08:59 Last Admin: 09/06/22 08:26 Dose: 20 meq Senna/Docusate Sodium (Docusate Sodium/Senna 50/8.6mg Tab) 2 tab PO HS [facility] Stop: 10/04/22 20:59 Last Admin: 09/05/22 20:18 Dose: Not Given Torsemide (Torsemide 100 Mg Tab) 100 mg PO QAM [facility] Stop: 10/04/22 08:59 Last Admin: 09/06/22 08:26 Dose: 100 mg
--- NOTE | 2022-09-06 15:25 | Nephrology Progress Note ---
Date of Service September 06, 2022 Assessment & Plan Admission and Anticipated Discharge Date Admission Date: September 03, 2022 Subjective Subjective S---Ongoing issue with back pain and severe issue with Anxiety. Got iv Morphine just now and currently pain is not present. Also seen earlier By Psych for Anxiety. No issues with Dialysis yesterday. PHYSICAL EXAMINATION: GENERAL: Elderly white male who is not in any overt respiratory distress. He is awake, alert and oriented. HEENT: Mucous membrane is moist. NECK: Supple. No jugular venous distention. CHEST: Bilateral decreased breath sounds, occasional basal crackles. CARDIOVASCULAR: S1 and S2, irregular systolic murmur soft heard. ABDOMEN: Soft, nontender. EXTREMITIES: Show no edema. LABORATORY TEST: Reviewed in detail as well as the imaging. ASSESSMENT AND PLAN: An 82-year-old male who has longstanding chronic kidney disease, which has now progressed to end-stage renal disease needing dialysis. Now admitted with unexplained abdominal/flank/back pain. 1. End-stage renal disease. He does have a peritoneal dialysis catheter in place; however, given ongoing issue with this unexplained abdominal/flank/back pain, it will be very tricky to start peritoneal dialysis. Abdominal pain is taken as an absolute emergency and peritoneal dialysis to rule out peritonitis. Given that he is still having intermittent severe pain, it will create a lot of trip to the Emergency Department as well as testing. He is also very constipated both these problems can cause significant problem and confusion with starting PD. Given this, I want him to have a tunneled dialysis catheter and then start maintenance hemodialysis. Once the issue of this pain has been resolved, then we will switch him over to peritoneal dialysis. In the meantime, we will be doing flushing of the PD catheter as well as sterile dressing. This will be done by dialysis nurse while inpatient and by the peritoneal dialysis nurse after discharg Now has tunnelled HD cath as well as PD. next HD is on Wednesday either inpt or Outpt. Will do dressing exchange of the PD also. Can be discharged as long as we have pain under control and/or pain meds given to him for use at home. He does not feel he can manage at home in current state of anxiety and back pain. will do cbc and renal panel tomorrow. Results & Data Vital Signs (Past 12 Hours) Vital Signs Temp Pulse Resp BP BP Pulse Ox O2 Del Method 09/06/22 14:29 36.9 C 122 H 18 124/89 95 Room Air 09/06/22 07:19 36.7 C 78 18 126/90 95 Room Air
--- NOTE | 2022-09-06 16:57 | CT Scan Report ---
ABDOMEN AND PELVIS CT WITHOUT CONTRAST CT DOSE: 730.79 mGy.cm HISTORY: Right-sided abdominal pain. Acute abd pain TECHNIQUE: Multiaxial CT images of the abdomen and pelvis were performed without contrast. A dose lo wering technique was utilized adhering to the principles of ALARA. COMPARISON STUDY: Abdomen and pelvis CT 09/01/2022. FINDINGS: Moderate hemidiaphragmatic elevation. Cardiomegaly with coronary artery calcifications. Bib asilar bibasilar atelectasis again noted. No pneumatosis or pneumoperitoneum. No acute fractures iden tified. Unremarkable spleen and adrenal glands. Mild cholelithiasis. 2.4 x 2.5 cm cystic lesion of the pancre atic tail with adjacent peripheral coarse calcifications measuring up to 6 mm. Additional cystic lesi on of the pancreatic head measuring 1.9 cm. These foci may represent sidebranch IPMN's. A subcentimet er hypodense lesion within the posterior segment of the right hepatic lobe. This is incompletely neela acterized on this noncontrast study.. Cysts of the bilateral kidneys. A 3.6 cm cyst within the superi or pole of the right kidney demonstrates mild layering milk of calcium. Slightly hyperdense 10 mm les ion within the right kidney on image 239 again noted. No renal or ureteral calculi or hydronephrosis. Prostamegaly. Urinary bladder wall thickening with mild distention. Atherosclerosis of the aorta wit hout aneurysm. No lymphadenopathy identified. No bowel obstruction or bowel wall thickening. Colonic diverticulosis. Normal appendix. Tiny fat fill ed umbilical hernia. A catheter is noted which terminates within the dependent pelvis. Degenerative c hanges of the spine, pelvis and hips. Posterior interbody moiz and screw fusion hardware L2-S1. No jarrod dence of hardware complication. IMPRESSION: 1. No bowel wall thickening or obstruction. 2. Cardiomegaly and mild bibasilar atelectasis, unchanged. 3. Indeterminate 10 mm lesion of the interpolar right kidney again noted. Correlation with a nonemerg ent follow-up renal ultrasound recommended. 4. No renal or ureteral stones. No hydronephrosis. 5. Cholelithiasis. 6. Colonic diverticulosis. 7. No acute fractures. 8. Additional findings as above. ACT 112: Negative or not required by law. Electronically signed by: Jaswant Nino M.D. 09/06/2022 4:55 PM
[2022-09-06] MEDS: DOCUSATE SODIUM/SENNA 50/8.6MG TAB PO SCH (20:59)
[2022-09-06] MEDS: BACLOFEN 10 MG TAB PO SCH (21:02)
[2022-09-06] MEDS ORDERED: MELATONIN 3 MG TAB PO PRN (23:06)
[2022-09-07] MEDS: LEVOTHYROXINE SODIUM 150 MCG TABLET PO SCH (04:26)
[2022-09-07 06:40] LABS: Basophils # (auto) 0.07 K/uL (0-0.2); Eosinophils # (auto) 0.28 K/uL (0-0.50); Eosinophils % (auto) 3.8 %; Hematocrit (blood only) 29.4 % (42.0-52.0); Hemoglobin 9.9 g/dl (14.0-18.0); Immature Granulocytes # (auto) 0.04 K/uL (0.01-0.20); Immature Granulocytes % (auto) 0.5 %; Lymphocytes # (auto) 0.97 K/uL (1.2-3.4); Lymphocytes % (auto) 13.2 %; Mean Corpuscular Hemoglobin 30.7 pg (25.0-34.0); Mean Corpuscular Hgb Conc 33.7 g/dL (32.0-36.0); Mean Platelet Volume 10.1 fL (9.4-12.4); Monocytes % (auto) 12.2 %; Neutrophils # (auto) 5.09 K/uL (1.40-6.50); Neutrophils % (auto) 69.3 %; Platelet Count 321 K/uL (130-400); RDW Coefficient of Variation 14.4 % (11.5-14.5); RDW Standard Deviation 47.8 fL (36.4-46.3); Red Blood Count 3.23 M/uL (4.70-6.10); White Blood Count 7.35 K/ul (4.8-10.8)
[2022-09-07] MEDS: oxyCODONE HCL IR 5 MG TAB (IMMEDIATE RELEASE) PO PRN ×2 (06:40→10:39)
[2022-09-07 07:10] LABS: Albumin Level 3.8 gm/dl (3.4-5.0); BUN Creatinine Ratio 12.2 (10-20); Calcium 9.1 mg/dl (8.6-10.3); Creatinine Clr Calc Pharmacy 12.3 ml/min; Est GFR (African American) 11.9 ml/min; Est GFR (Non-African American) 10.3 ml/min; Potassium 4.1 mmol/L (3.5-5.1)
[2022-09-07] MEDS: METOPROLOL TARTRATE 25 MG TAB PO SCH ×3 (08:37→22:02)
[2022-09-07] MEDS: INSULIN ASPART PER UNIT CHARGE SC SCH ×4 (08:37→21:34)
[2022-09-07] MEDS: TORSEMIDE 100 MG TAB PO SCH (08:38)
[2022-09-07] MEDS: ACETAMINOPHEN 500 MG TAB PO SCH ×3 (08:38→22:03)
[2022-09-07] MEDS: BACLOFEN 10 MG TAB PO SCH ×3 (08:38→22:02)
[2022-09-07] MEDS: hydrOXYzine HCl 10 MG TAB PO PRN (08:39)
[2022-09-07] MEDS: APIXABAN 2.5 MG TAB PO SCH ×2 (08:39→20:18)
[2022-09-07] MEDS: LIDOCAINE 5% 1 PATCH TD SCH (08:39)
[2022-09-07] MEDS: POLYETHYLENE (MIRALAX) 17 GM PACK PO SCH (08:40)
[2022-09-07] MEDS: DICLOFENAC SOD 1% GEL 100 GM TUBE EXT SCH ×3 (08:40→22:02)
[2022-09-07] MEDS: ASPIRIN 81 MG ECTAB PO SCH (08:40)
[2022-09-07] MEDS: POTASSIUM CHLORIDE CRTAB 20 MEQ TABCR PO SCH (08:40)
[2022-09-07] MEDS: allopurinoL 100 MG TAB PO SCH (08:40)
[2022-09-07] MEDS ORDERED: MoRPHine SULFATE 4 MG/ML 1 ML CARP\\VIAL IV STA (11:15)
--- NOTE | 2022-09-07 16:01 | Hospitalist Progress Note ---
Date of Service September 07, 2022 Assessment & Plan (1) Acute right flank pain: (2) Elevated lipase: (3) Cholelithiasis: (4) Kidney lesion: (5) Pancreatic cyst: (6) ANGY (iron deficiency anemia): (7) ESRD (end stage renal disease): (8) Peritoneal dialysis catheter in situ: (9) Chronic diastolic CHF (congestive heart failure): (10) Atrial fibrillation: (11) Hypothyroidism: (12) DM type 2 (diabetes mellitus, type 2): (13) Hyponatremia: Plan This is an 82-year-old male with PMH DM type II, hypothyroidism, pancreatic cyst, chronic diastolic CHF, atrial fibrillation on Eliquis, HTN, LBBB, ESRD with peritoneal dialysis catheter in place, history of thyroid cancer, history of prostate cancer, and other problems listed below who presents to the ED with recurrent right flank pain. Recurrent R flank pain Cholelithiasis Elevated lipase Admitted earlier this week with similar pain - liver ultrasound showed gall bladder sludge, HIDA scan was negative for any acute cholecystitis/cystic duct obstruction Pain recurred last evening after eating broth based soup for dinner Pain resolved with IV morphine in ED, ADAT Pain continues to come and go GI feels maybe constipation? recs a good bowel regimen will change to Senna S 2 at HS and scheduled miralax obtain rib series Xray-did not show any rib fracture lidocaine patch, prn tramadol, heat Does not have any rash to justify shingles and does not have any radiculopathic pain to justify any significant nerve entrapment still could have Has been on muscle relaxant and will add oral oxycodone Received 1 dose of Dilaudid last night and will give 4 mg of morphine intravenously today before dialysis Pain was controlled initially but later on it came on all of a sudden Was given 1 dose of intravenous morphine on top of current medications and will get repeat CT of the abdomen and pelvis Will start with baclofen regularly and continue with Oxy IR as needed Right flank and lower lateral chest wall pain is persisting He will get another dose of morphine 4 mg intravenously Pain therapist will be consulted today History of severe anxiety Appreciate psychiatric input and recommendation Will start duloxetine 30 mg from today ESRD (end stage renal disease) Peritoneal dialysis catheter in place, was due to start today prior to admission Per nephrology patient to require hemodialysis due to abdominal pain Pt had tunneled cath placed at [facility] [place] and returned yesterday to have 2 hrs today Next dialysis on Wednesday as an outpatient Next dialysis is on Wednesday Atrial fibrillation continue metoprolol and eliquis No acute symptoms Chronic diastolic CHF (congestive heart failure) Appears euvolemic, continue torsemide potassium reduced DM type 2 (diabetes mellitus, type 2) Hgb A1c 7.4 08/2022 Hold oral agents and utilize NovoLog per protocol while hospitalized bsg 132, 175 Hyponatremia Na 134, chronic, at recent baseline Continue to monitor-132 on 09/07/2022 ANGY (iron deficiency anemia) Receives iron infusions Hypothyroidism Continue levothyroxine DVT Ppx: Eliquis Code status: DNR per discussion PCP: Nati Dispo: Admitted to med/surg Admission and Anticipated Discharge Date Admission Date: September 03, 2022 Subjective 09/05/2022 The patient was seen and examined in medical floor He has been complaining of increasing episodic pain right lower lateral abdominal wall He was not willing to go to dialysis today because of the pain and he wanted to sign out AMA Morphine 4 mg IV was given and started with oral oxycodone Received dialysis today and like to go home tomorrow 09/06/2022 The patient was seen and examined in medical floor about 3 times this morning Initially he was okay, later on 2 occasions his pain was worse with anxiety No acute distress Remains hemodynamically stable but noted to have tachycardia 09/07/2022 The patient was seen and examined in medical floor He complains to have more pain this morning Examination revealed tender points around right posterior lower ribs He was given additional dose of intravenous morphine of 4 mg Awaiting pain therapy evaluation Review of Systems Review of Systems: All systems reviewed and are unremarkable except as noted below Physical Exam 2 Physical Exam: Sitting at the edge of the bed without any acute distress Constitutional: well developed, well nourished, + ill appearing and + obese Eyes: PERRL, conjunctivae normal, anicteric sclerae ENMT: external ear and nose normal, oropharynx normal Neck: trachea midline, no thyromegaly Respiratory: no respiratory distress Auscultation: lungs clear to auscultation bilaterally Cardiovascular: Rate/Rhythm: regular rate, regular rhythm and + tachycardic Heart Sounds: normal S1 and normal S2; no murmur Extremities: + edema Gastrointestinal (Abdomen): Inspection/Auscultation: normal bowel sounds; abdo men not distended Percussion/Palpation: + abdomen tender (Tender in the left lateral wall of abdomen and the flank area) and abdomen soft Neurologic: normal touch/pain/proprioception and moves all extremities; no focal motor deficits Psychiatric: A+Ox3, euthymic affect Lymphatic: no cervical or axillary lymphadenopathy Results & Data Results & Data Vital Signs (Past 12 Hours) Vital Signs Temp Pulse Pulse Resp BP BP Pulse Ox 09/07/22 14:49 36.7 C 89 16 120/78 94 09/07/22 07:58 36.4 C L 103 H 16 148/78 H 99 O2 Del Method 09/07/22 14:49 Room Air 09/07/22 07:58 Room Air Laboratory Results Short CBC 09/07/22 Range/Units 05:48 WBC 7.35 (4.8-10.8) K/ul Hgb 9.9 L (14.0-18.0) g/dl Hct 29.4 L (42.0-52.0) % Plt Count 321 (130-400) K/uL BMP 09/07/22 05:48 Sodium 132 L Potassium 4.1 Chloride 94 L Carbon Dioxide 25 BUN 60 H Creatinine 4.90 H* Glucose 122 H Calcium 9.1 Liver Function 09/07/22 Range/Units 05:48 Albumin 3.8 (3.4-5.0) gm/dl Medications Administered Current Inpatient Medications Acetaminophen (Acetaminophen 500 Mg Tab) 1,000 mg PO Q8H LILI Stop: 10/03/22 15:44 Last Admin: 09/07/22 14:50 Dose: 1,000 mg Allopurinol (Allopurinol 100 Mg Tab) 100 mg PO QAM LILI Stop: 10/04/22 08:59 Last Admin: 09/07/22 08:40 Dose: 100 mg Apixaban (Apixaban 2.5 Mg Tab) 2.5 mg PO BID LILI Stop: 10/04/22 08:59 Last Admin: 09/07/22 08:39 Dose: 2.5 mg Aspirin (Aspirin 81 Mg Ectab) 81 mg PO DAILY LILI Stop: 10/04/22 08:59 Last Admin: 09/07/22 08:40 Dose: 81 mg Baclofen (Baclofen 10 Mg Tab) 5 mg PO TID LILI Stop: 10/06/22 20:59 Last Admin: 09/07/22 14:50 Dose: 5 mg Dextrose (Dextrose 50% 50 Ml Syringe) 25 - 50 ml IV UD PRN; Protocol PRN Reason: Hypoglycemia Protocol Stop: 10/03/22 17:08 Diclofenac Sodium (Diclofenac Sod 1% Gel 100 Gm Tube) 2 gm EXT TID LILI; Protocol Stop: 10/03/22 20:59 Last Admin: 09/07/22 14:50 Dose: 2 gm Duloxetine HCl (Duloxetine Hcl 30 Mg Cap) 30 mg PO QAM [facility] Stop: 10/07/22 15:59 Glucagon (Glucagon For Inj 1 Mg Vial) 1 mg SQ UD PRN; Protocol PRN Reason: Hypoglycemia Protocol Stop: 10/03/22 17:08 Glucose (Glucose 40% Gel 15 Gm Tube) 15 - 30 gm PO UD PRN; Protocol PRN Reason: Hypoglycemia Protocol Stop: 10/03/22 17:08 Glucose (Glucose 10 Tab/Tube) 4 - 8 tab PO UD PRN; Protocol PRN Reason: Hypoglycemia Treatment Stop: 10/03/22 17:08 Hydroxyzine HCl (Hydroxyzine Hcl 10 Mg Tab) 10 mg PO TID PRN PRN Reason: Anxiety Stop: 10/05/22 20:32 Last Admin: 09/07/22 08:39 Dose: 10 mg Promethazine HCl 12.5 mg/ (Sodium Chloride) 50.5 mls @ 202 mls/hr IV Q6H PRN PRN Reason: Nausea And Vomiting Stop: 10/05/22 16:42 Last Infusion: 09/06/22 08:36 Dose: Infused Insulin Aspart (Insulin Aspart Per Unit Charge) 0 units SC ACHS [facility] Stop: 10/03/22 20:59 Last Admin: 09/07/22 12:22 Dose: 3 units Levothyroxine Sodium (Levothyroxine Sodium 150 Mcg Tablet) 150 mcg PO DAILYBB [facility] Stop: 10/04/22 06:29 Last Admin: 09/07/22 04:26 Dose: 150 mcg Lidocaine (Lidocaine 5% 1 Patch) 1 patch TD QAM [facility] Stop: 10/04/22 08:59 Last Admin: 09/07/22 08:39 Dose: 1 patch Melatonin (Melatonin 3 Mg Tab) 3 mg PO HS PRN PRN Reason: Sleep Stop: 10/06/22 23:05 Last Admin: 09/06/22 23:22 Dose: 3 mg Metoprolol Tartrate (Metoprolol Tartrate 25 Mg Tab) 25 mg PO TID [facility] Stop: 10/03/22 20:59 Last Admin: 09/07/22 14:50 Dose: 25 mg Miscellaneous (Carbohydrates For Hypoglycemia ) 15 - 30 gm PO UD PRN PRN Reason: Hypoglycemia Protocol Stop: 10/03/22 17:08 Miscellaneous (Remove Lidoderm Patch) 1 each N/A DAILY@2100 [facility] Stop: 10/04/22 20:59 Last Admin: 09/06/22 21:02 Dose: 1 each Oxycodone HCl (Oxycodone Hcl Ir 5 Mg Tab (Immediate Release)) 5 mg PO Q4H PRN PRN Reason: Pain Stop: 09/19/22 08:47 Last Admin: 09/07/22 10:39 Dose: 5 mg Polyethylene Glycol (Polyethylene (Miralax) 17 Gm Pack) 17 gm PO DAILY [facility]I Stop: 10/03/22 17:14 Last Admin: 09/07/22 08:40 Dose: 17 gm Potassium Chloride (Potassium Chloride Crtab 20 Meq Tabcr) 20 meq PO DAILY [facility]ILI Stop: 10/04/22 08:59 Last Admin: 09/07/22 08:40 Dose: 20 meq Senna/Docusate Sodium (Docusate Sodium/Senna 50/8.6mg Tab) 2 tab PO HS [facility] Stop: 10/04/22 20:59 Last Admin: 09/06/22 20:59 Dose: 2 tab Torsemide (Torsemide 100 Mg Tab) 100 mg PO QAM [facility] Stop: 10/04/22 08:59 Last Admin: 09/07/22 08:38 Dose: 100 mg
[2022-09-07] MEDS: DULoxetine HCL 30 MG CAP PO SCH (17:36)
[2022-09-07] MEDS: DOCUSATE SODIUM/SENNA 50/8.6MG TAB PO SCH (22:02)
[2022-09-08] MEDS: LEVOTHYROXINE SODIUM 150 MCG TABLET PO SCH (06:15)
[2022-09-08] MEDS: PROMETHAZINE HCL 12.5 MG in SODIUM CHLORIDE 0.9% 50 ML IV PRN (06:24)
[2022-09-08 07:29] LABS: Albumin Level 3.8 gm/dl (3.4-5.0); BUN Creatinine Ratio 12.2 (10-20); Calcium 9.3 mg/dl (8.6-10.3); Creatinine Clr Calc Pharmacy 11.2 ml/min; Est GFR (African American) 10.6 ml/min; Est GFR (Non-African American) 9.2 ml/min; Phosphorus 5.6 mg/dl (2.5-4.9); Potassium 4.7 mmol/L (3.5-5.1)
[2022-09-08] MEDS ORDERED: SODIUM CHLORIDE 0.9% 1000ML 1,000 ML IV PRN ×2 (07:41→07:42)
[2022-09-08] MEDS ORDERED: EPOETIN ALFA 10,000 UNITS/ML VIAL IV ONE (07:42)
[2022-09-08] MEDS ORDERED: HEPARIN SOD (PORCINE) 1000 UNIT/ML IV ONE (07:42)
[2022-09-08] MEDS: DULoxetine HCL 30 MG CAP PO SCH ×2 (08:33→09:36)
[2022-09-08] MEDS: allopurinoL 100 MG TAB PO SCH (08:33)
[2022-09-08] MEDS: ACETAMINOPHEN 500 MG TAB PO SCH ×3 (08:33→21:45)
[2022-09-08] MEDS: APIXABAN 2.5 MG TAB PO SCH ×2 (08:34→21:37)
[2022-09-08] MEDS: ASPIRIN 81 MG ECTAB PO SCH (08:34)
[2022-09-08] MEDS: LIDOCAINE 5% 1 PATCH TD SCH (08:34)
[2022-09-08] MEDS: POLYETHYLENE (MIRALAX) 17 GM PACK PO SCH (08:35)
[2022-09-08] MEDS: BACLOFEN 10 MG TAB PO SCH ×3 (09:08→21:44)
[2022-09-08] MEDS: INSULIN ASPART PER UNIT CHARGE SC SCH ×4 (09:31→21:49)
[2022-09-08] MEDS: METOPROLOL TARTRATE 25 MG TAB PO SCH ×3 (09:36→21:37)
[2022-09-08] MEDS: DICLOFENAC SOD 1% GEL 100 GM TUBE EXT SCH ×3 (09:38→21:44)
[2022-09-08] MEDS ORDERED: HYDROmorphone INJ 0.5 MG/0.5 ML SYR IV STA (11:07)
--- NOTE | 2022-09-08 11:42 | Hospitalist Progress Note ---
Date of Service September 08, 2022 Assessment & Plan (1) Acute right flank pain: (2) Elevated lipase: (3) Cholelithiasis: (4) Kidney lesion: (5) Pancreatic cyst: (6) ANGY (iron deficiency anemia): (7) ESRD (end stage renal disease): (8) Peritoneal dialysis catheter in situ: (9) Chronic diastolic CHF (congestive heart failure): (10) Atrial fibrillation: (11) Hypothyroidism: (12) DM type 2 (diabetes mellitus, type 2): (13) Hyponatremia: Plan This is an 82-year-old male with PMH DM type II, hypothyroidism, pancreatic cyst, chronic diastolic CHF, atrial fibrillation on Eliquis, HTN, LBBB, ESRD with peritoneal dialysis catheter in place, history of thyroid cancer, history of prostate cancer, and other problems listed below who presents to the ED with recurrent right flank pain. Recurrent R flank pain Cholelithiasis Elevated lipase Admitted earlier this week with similar pain - liver ultrasound showed gall bladder sludge, HIDA scan was negative for any acute cholecystitis/cystic duct obstruction Pain recurred last evening after eating broth based soup for dinner Pain resolved with IV morphine in ED, ADAT Pain continues to come and go GI feels maybe constipation? recs a good bowel regimen, moved his bowels today / On Senna S 2 at HS and scheduled miralax rib series Xray-did not show any rib fracture lidocaine patch, heat Does not have any rash to justify shingles and does not have any radiculopathic pain to justify any significant nerve entrapment On scheduled baclofen- but has refused past 2 doses Received IV dilaudid and morphine intermittent CT abd/pelvis:No bowel wall thickening or obstruction.2. Cardiomegaly and mild bibasilar atelectasis, unchanged3. Indeterminate 10 mm lesion of the interpolar right kidney again noted. Correlation with a nonemergent follow-up renal ultrasound recommended.4. No renal or ureteral stones. No hydronephrosis.5. Cholelithiasis.6. Colonic diverticulosis.7. No acute fractures.8. Additional findings as above. on baclofen scheduled, prn oxy, cymbalta started 09/07 - pt refusing to take meds today recommend MRI thoracic/lumbar spine but pt refusing - pt with 2 prior lumbar surgeries Pain management has been consulted will await their input, ? if gabapentin would help History of severe anxiety Appreciate psychiatric input and recommendation Will start duloxetine 30 mg from today ESRD (end stage renal disease) Peritoneal dialysis catheter in place, was due to start today prior to admission Per nephrology patient to require hemodialysis due to abdominal pain Pt had tunneled cath placed at [facility] 09/01 to have HD today; however pt states, "he isn't going" Atrial fibrillation continue metoprolol and eliquis No acute symptoms Chronic diastolic CHF (congestive heart failure) Appears euvolemic, continue torsemide potassium reduced DM type 2 (diabetes mellitus, type 2) Hgb A1c 7.4 08/2022 Hold oral agents and utilize NovoLog per protocol while hospitalized bsg 135 Hyponatremia Na 134, chronic, at recent baseline Continue to monitor-132 on 09/07/2022 ANGY (iron deficiency anemia) Receives iron infusions Hypothyroidism Continue levothyroxine DVT Ppx: Eliquis Code status: DNR per discussion PCP: Nati Dispo: Admitted to med/surg A total of 45 minutes was spent with greater than 50% of that time personally viewing all current laboratory work and diagnostic imaging studies obtained in the ED. Additionally, I was able to view the patients past medication reconciliation and history with direct visualization in the patients chart. Included in the time above, a portion of that time was spent assessing the davide ent while discussing and collaborating with specialists, if necessary, and making medical decision making on treatment plan. All of the above was collaborated with Dr. Huddleston. Please see addendum for further details. Admission and Anticipated Discharge Date Admission Date: September 03, 2022 Supervising Physician Co-Signing Physician Notes Attending addendum: The patient was seen and examined in medical floor He complains to have severe back pain associated with bilateral leg heaviness since this morning Denies any problem with urine and bowel habit He cannot lie flat due to MRI even with appropriate medications On examination Sitting at the edge of the bed with acute pain Hemodynamically stable Local examination of the lower back did show a tender spot in the right lower side of the back Chest-. To auscultate bilateral Abdomen-benign His labs and medications reviewed Has severe right lower back pain of uncertain etiology History of back surgery and now has bilateral leg heaviness Patient is refusing MRI of the spines Awaiting pain therapy evaluation Agree with assessment and plan as outlined above by Audrey Huddleston Subjective Patient was seen and examined in room 312. Follow up R sided backed pain, eSRD. "Feels awful today." Complains of bilateral leg weakness, off and on R sided back pain, nausea and one episode of vomiting last night. Feels he has to many medications. States he has been going down hill since May. Denies f/c/s, chest pain, sob, cough, diarrhea. He had BM this morning. He states he woke up in the chair this morning and doesn't remember getting there, also thinks he was sleep walking to the bathroom. Will not do an MRI due to previous experience. "If I have to live with this pain I want to ." Only thing that helps is IV morphine. Review of Systems Review of Systems: All systems reviewed & are unremarkable except as noted in HPI & below Physical Exam Physical Exam: Gen: WD/WN, elderly, M, sitting up at bedside, NAD, A&O x3, flat affect HEENT: Normocephalic, atraumatic, conjunctivae moist, sclerae anicteric, mucous membranes moist. Lung: Clear to Auscultation bilaterally, no wheezes/rales/rhonchi Heart: IRR/IRR, no murmurs, rubs, or gallops, tunnelled cath Abdomen: Soft, NT, ND +BS x 4, +PD cath Extremities: No edema + R parasternal back pain noted on exam Skin: Warm, no rash, negative turgor. Results & Data Results & Data Vital Signs (Past 12 Hours) Vital Signs Temp Pulse Resp BP Pulse Ox O2 Del Method 09/08/22 07:37 36.5 C 89 16 105/62 95 Room Air Laboratory Results [facility] 09/08/22 06:26 Sodium 131 L Potassium 4.7 Chloride 93 L Carbon Dioxide 24 BUN 66 H Creatinine 5.39 H* D Glucose 139 H Calcium 9.3 Liver Function 09/08/22 Range/Units 06:26 Albumin 3.8 (3.4-5.0) gm/dl Medications Administered Current Inpatient Medications Acetaminophen (Acetaminophen 500 Mg Tab) 1,000 mg PO Q8H LILI Stop: 10/03/22 15:44 Last Admin: 09/08/22 08:33 Dose: 1,000 mg Allopurinol (Allopurinol 100 Mg Tab) 100 mg PO QAM LILI Stop: 10/04/22 08:59 Last Admin: 09/08/22 08:33 Dose: 100 mg Apixaban (Apixaban 2.5 Mg Tab) 2.5 mg PO BID [facility] Stop: 10/04/22 08:59 Last Admin: 09/08/22 08:34 Dose: 2.5 mg Aspirin (Aspirin 81 Mg Ectab) 81 mg PO DAILY [facility] Stop: 10/04/22 08:59 Last Admin: 09/08/22 08:34 Dose: 81 mg Baclofen (Baclofen 10 Mg Tab) 5 mg PO TID [facility] Stop: 10/06/22 20:59 Last Admin: 09/08/22 09:08 Dose: Not Given Dextrose (Dextrose 50% 50 Ml Syringe) 25 - 50 ml IV UD PRN; Protocol PRN Reason: Hypoglycemia Protocol Stop: 10/03/22 17:08 Diclofenac Sodium (Diclofenac Sod 1% Gel 100 Gm Tube) 2 gm EXT TID [facility]; Protocol Stop: 10/03/22 20:59 Last Admin: 09/08/22 09:38 Dose: 2 gm Duloxetine HCl (Duloxetine Hcl 30 Mg Cap) 30 mg PO QAM [facility] Stop: 10/07/22 16:14 Last Admin: 09/08/22 09:36 Dose: Not Given Glucagon (Glucagon For Inj 1 Mg Vial) 1 mg SQ UD PRN; Protocol PRN Reason: Hypoglycemia Protocol Stop: 10/03/22 17:08 Glucose (Glucose 40% Gel 15 Gm Tube) 15 - 30 gm PO UD PRN; Protocol PRN Reason: Hypoglycemia Protocol Stop: 10/03/22 17:08 Glucose (Glucose 10 Tab/Tube) 4 - 8 tab PO UD PRN; Protocol PRN Reason: Hypoglycemia Treatment Stop: 10/03/22 17:08 Hydroxyzine HCl (Hydroxyzine Hcl 10 Mg Tab) 10 mg PO TID PRN PRN Reason: Anxiety Stop: 10/05/22 20:32 Last Admin: 09/07/22 08:39 Dose: 10 mg Promethazine HCl 12.5 mg/ (Sodium Chloride) 50.5 mls @ 202 mls/hr IV Q6H PRN PRN Reason: Nausea And Vomiting Stop: 10/05/22 16:42 Last Infusion: 09/08/22 06:39 Dose: Infused Sodium Chloride (Nss 1000ml) 1,000 mls @ 0 mls/hr IV .Q0M PRN PRN Reason: For Hemodialysis Use ONLY Stop: 09/08/22 13:40 Sodium Chloride (Nss 1000ml) 1,000 mls @ 0 mls/hr IV .Q0M PRN PRN Reason: For Hemodialysis Use ONLY Stop: 09/08/22 13:41 Insulin Aspart (Insulin Aspart Per Unit Charge) 0 units SC ACHS [facility] Stop: 10/03/22 20:59 Last Admin: 09/08/22 09:31 Dose: 3 units Levothyroxine Sodium (Levothyroxine Sodium 150 Mcg Tablet) 150 mcg PO DAILYBB [facility] Stop: 10/04/22 06:29 Last Admin: 09/08/22 06:15 Dose: 150 mcg Lidocaine (Lidocaine 5% 1 Patch) 1 patch TD QAM [facility] Stop: 10/04/22 08:59 Last Admin: 09/08/22 08:34 Dose: 1 patch Melatonin (Melatonin 3 Mg Tab) 3 mg PO HS PRN PRN Reason: Sleep Stop: 10/06/22 23:05 Last Admin: 09/06/22 23:22 Dose: 3 mg Metoprolol Tartrate (Metoprolol Tartrate 25 Mg Tab) 25 mg PO TID [facility] Stop: 10/03/22 20:59 Last Admin: 09/08/22 09:36 Dose: 25 mg Miscellaneous (Carbohydrates For Hypoglycemia ) 15 - 30 gm PO UD PRN PRN Reason: Hypoglycemia Protocol Stop: 10/03/22 17:08 Miscellaneous (Remove Lidoderm Patch) 1 each N/A DAILY@2100 [facility] Stop: 10/04/22 20:59 Last Admin: 09/07/22 20:15 Dose: Not Given Oxycodone HCl (Oxycodone Hcl Ir 5 Mg Tab (Immediate Release)) 5 mg PO Q4H PRN PRN Reason: Pain Stop: 09/19/22 08:47 Last Admin: 09/07/22 10:39 Dose: 5 mg Polyethylene Glycol (Polyethylene (Miralax) 17 Gm Pack) 17 gm PO DAILY [facility] Stop: 10/03/22 17:14 Last Admin: 09/08/22 08:35 Dose: 17 gm Senna/Docusate Sodium (Docusate Sodium/Senna 50/8.6mg Tab) 2 tab PO HS [facility] Stop: 10/04/22 20:59 Last Admin: 09/07/22 22:02 Dose: Not Given Torsemide (Torsemide 100 Mg Tab) 100 mg PO [facility] Stop: 10/04/22 08:59 Last Admin: 09/07/22 08:38 Dose: 100 mg
--- NOTE | 2022-09-08 13:43 | Pain Management Consultation ---
Date of Consultation September 08, 2022 Assessment & Plan (1) Acute right flank pain: (2) History of fusion of lumbar spine: (3) Foot drop, bilateral: Plan 1. Continue with the baclofen and oxycodone as currently ordered. 2. Consider increasing Cymbalta dose from 30 mg to 60 mg daily to better target pain. 3. Patient may benefit from gabapentin, but he states adverse side effects from this medication in the past. So, recommend Lyrica at a proper dose in a hemodialysis setting if okay with nephrology, which would be 50 mg daily. 4. Recommend MRI of the thoracic and lumbar spine, but the patient adamantly refuses, so CT scan of the thoracic/lumbar spine can be utilized. 5. Patient has presence of bilateral dropfoot, and so he would benefit from having bilateral dorsiflex assist AFO devices as to aid in fall prevention and easier ambulation. * Recommend contacting [facility] orthotics to facilitate. 6. Will peripherally follow the patient at this point to see if any further imaging studies have been done, but the pain management service will sign off at this time. Please reconsult if needed. History of Present Illness Reason for Consultation: Right flank pain Attending Physician: Breezy Huddleston MD History of Present Illness Patient is an 82-year-old male that presented to the hospital ER on 08/29/2022 with acute onset of right flank pain. At that time the pain was radiating to the right upper quadrant of his abdomen. He did undergo a CT scan of the abdomen/pelvis while in the ER, and this was unremarkable as to the cause to his pain. There was a pancreatic cyst noted, as well as a right kidney lesion, which was recommended for follow-up with an ultrasound. There was choleli thiasis noted, with a mildly elevated lipase. Patient has a history of end- stage renal disease and recently had a peritoneal dialysis catheter placed, but this had yet to be started. Patient says his pain feels deep, and it is nontender to touch the area. Today, he is saying that the pain does not travel anywhere else. He denies any injury or falls as the cause to his current pain. He has refused to undergo MRI of the thoracic and lumbar spine to better evaluate his condition, as he has had a bad experience in the past with an MRI and admits to severe claustrophobia. Patient says that he is due to be getting a CT scan of his spine, and he is waiting for them to come get him to do this. He has had rib x-rays performed, which shows no fractures. He admits to a history of lumbar spine surgery x2, with the most recent being approximately [address] Guerrier. He has an L2-S1 instrumented fusion. 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 He has not been back to see his spine surgeon in quite a long time. Allergies Allergy/AdvReac Type Severity Reaction Status Date / Time clonidine Allergy Unknown allergic Unverified 08/29/22 18:51 to all but 1 brand carvedilol Allergy Hives Verified 08/29/22 18:51 losartan Allergy Unknown Verified 08/29/22 18:51 ANJELICA Inhibitors AdvReac Intermediate INTOLERANCE Verified 08/29/22 18:51 PER MD ORDER allopurinol AdvReac Intermediate severe abd Verified 08/29/22 18:51 pain Beta-Blockers AdvReac Intermediate INTOLERANCE Verified 08/29/22 18:51 (Beta-Adrenergic Bloc PER DR HUDDLESTON doxazosin AdvReac Intermediate INTOLERANCE Verified 08/29/22 18:[address] HUDDLESTON Efisceq-DZQ-TyL Reductase AdvReac Intermediate INTOLERANCE Verified 08/29/22 18:51 Inhibitor PER [Adywfrc-Xbu-Ktj Reductase ADAN Inhibitor] citalopram AdvReac Unknown Verified 08/29/22 18:51 hydralazine AdvReac diarrhea, Verified 08/29/22 18:51 testicular pain hydrochlorothiazide AdvReac hyponatremi Verified 08/29/22 18:51 a lisinopril AdvReac Cough Verified 08/29/22 18:51 simvastatin [From Zocor] AdvReac Muscle Pain Verified 08/29/22 18:51 sitagliptin [From Januvia] AdvReac restlessnes Verified 08/29/22 18:51 s Home Medications Medication Instructions Recorded Confirmed Type allopurinol 100 mg tablet 100 mg PO QAM 02/25/18 09/03/22 History aspirin 81 mg tablet,delayed 81 mg PO DAILY 02/25/18 09/03/22 History release levothyroxine 150 mcg tablet 150 mcg PO DAILYBB 08/12/20 09/03/22 History multivitamin 1 tab PO DAILY 08/12/20 09/03/22 History B-complex with vitamin C 1 tab PO DAILY 08/29/22 09/03/22 History apixaban 2.5 mg tablet (Eliquis) 2.5 mg PO BID 08/29/22 09/03/22 History docusate sodium 100 mg tablet 100 mg PO DAILY 08/29/22 09/03/22 History glipizide 2.5 mg tablet, extended 2.5 mg PO QAM 08/29/22 09/03/22 History release 24 hr hydroxyzine HCl 10 mg tablet 10 mg PO TID PRN Anxiety 08/29/22 09/03/22 History linagliptin 5 mg tablet (Tradjenta) 5 mg PO QAM 08/29/22 09/03/22 History metoprolol tartrate 25 mg tablet 25 mg PO TID 08/29/22 09/03/22 History potassium chloride 20 mEq 40 meq PO DAILY 08/29/22 09/03/22 History tablet,extended release torsemide 100 mg tablet 100 mg PO QAM 08/29/22 09/03/22 History polyethylene glycol 3350 17 gram 17 g PO DAILY #14 ea 09/02/22 09/03/22 Rx oral powder packet (Miralax) Pain History Chief Complaint Chief Complaint: Pain at my right side Pain Location Full Body Front + Back: 1. Patient History Medical History (Updated 09/08/22 @ 16:48 by Enoch Tinajero PA-C) Atrial fibrillation Chronic diastolic CHF (congestive heart failure) COPD (chronic obstructive pulmonary disease) DM type 2 (diabetes mellitus, type 2) ESRD (end stage renal disease) Foot drop, bilateral Gout Hypertension Hypothyroidism ANGY (iron deficiency anemia) LBBB (left bundle branch block) Pancreatic cyst Peritoneal dialysis catheter in situ Prostate ca Pulmonary hypertension Spinal stenosis Thyroid cancer Surgical History (Updated 09/08/22 @ 16:48 by Enoch Tinajero PA-C) History of fusion of lumbar spine L2-S1, instrumented S/P lumbar fusion Family History Other Diabetes Hypertension Social History Smoking Status: Former smoker Cigarettes Per Day: 10; Second Hand Exposure: No; Do You Dip or Chew Tobacco: Yes; Hx Alcohol Use: No Hx Substance Use: No Preferred Language: Maori Communication Ability: Effective Deaf/Hard Of Hearing Specialist Required: No Beliefs That Will Affect Care: None marital status: Current Living Situation: Spouse Feels Safe at Home: Yes Safety Concerns: Feels Safe At This Time Assistive Devices: Cane and Walker Physical Exam Physical Exam: GENERAL: Speech and cognition is intact. Mood and affect is appropriate. Does not appear in acute distress. Uses walker to ambulate. HEAD: Normocephalic; atraumatic. NECK: Full ROM; trachea is midline. CHEST: Regular chest respiration and excursion. EXTREMITIES: Diminished ROM. No TTP. Distal sensation and pulses intact bila terally. BACK: Diminished ROM.There is no midline, SI joint, or facet joint tenderness. No lumbosacral tenderness. There is no paraspinal, quadratus lumborum, piriformis, or gluteal tenderness or spasm.Inspection/palpation demonstrates loss of lumbar lordotic curvature. NEURO: CN II-XII grossly intact with no focal deficits noted. Normal gait. Awake, alert, and oriented x 3. Distal sensation of lower legs intact. Patellar Reflex R traceL trace SKIN: No lesions, erythema, or rashes noted. LOWER EXTREMITIES: R Hip flexion 4/5; hip extension 4-/5; knee extension 4+/5; knee flexion 3+/5; ankle dorsiflexion 0/5; ankle plantar flexion 3-/5; EHL 0/5 L Hip flexion 4/5; hip extension 4-/5; knee extension 4+/5; knee flexion 3+/5; ankle dorsiflexion 0/5; ankle plantar flexion 3-/5; EHL 0/5 Results (Pain Clinic) Laboratory Review Additional Comments: [facility] 09/08/22 06:26 Sodium 131 L Potassium 4.7 C Chloride 93 L Carbon Dioxide 24 BUN 66 H Creatinine 5.39 H* D Glucose 139 H Calcium 9.3 Liver Function 09/08/22 Range/Units 06:26 Albumin 3.8 (3.4-5.0) gm/dl Diagnostic Review CT Findings: ABDOMEN AND PELVIS CT WITHOUT CONTRAST CT DOSE: 730.79 mGy.cm HISTORY: Right-sided abdominal pain. Acute abd pain TECHNIQUE: Multiaxial CT images of the abdomen and pelvis were performed without contrast. A dose lowering technique was utilized adhering to the principles of ALARA. COMPARISON STUDY: Abdomen and pelvis CT 09/01/2022. FINDINGS: Moderate hemidiaphragmatic elevation. Cardiomegaly with coronary artery calcifications. Bibasilar bibasilar atelectasis again noted. No pneumatosis or pneumoperitoneum. No acute fractures identified. Unremarkable spleen and adrenal glands. Mild cholelithiasis. 2.4 x 2.5 cm cystic lesion of the pancreatic tail with adjacent peripheral coarse calcifications measuring up to 6 mm. Additional cystic lesion of the pancreatic head measuring 1.9 cm. These foci may represent sidebranch IPMN's. A subcentimeter hypodense lesion within the posterior segment of the right hepatic lobe. This is incompletely characterized on this noncontrast study.. Cysts of the bilateral kidneys. A 3.6 cm cyst within the superior pole of the right kidney demonstrates mild layering milk of calcium. Slightly hyperdense 10 mm lesion within the right kidney on image 239 again noted. No renal or ureteral calculi or hydronephrosis. Prostamegaly. Urinary bladder wall thickening with mild distention. Atherosclerosis of the aorta without aneurysm. No lymphadenopathy identified. No bowel obstruction or bowel wall thickening. Colonic diverticulosis. Normal appendix. Tiny fat filled umbilical hernia. A catheter is noted which terminates within the dependent pelvis. Degenerative changes of the spine, pelvis and hips. Posterior interbody moiz and screw fusion hardware L2-S1. No evidence of hardware complication. IMPRESSION: 1. No bowel wall thickening or obstruction. 2. Cardiomegaly and mild bibasilar atelectasis, unchanged. 3. Indeterminate 10 mm lesion of the interpolar right kidney again noted. Correlation with a nonemergent follow-up renal ultrasound recommended. 4. No renal or ureteral stones. No hydronephrosis. 5. Cholelithiasis. 6. Colonic diverticulosis. 7. No acute fractures. 8. Additional findings as above. ACT 112: Negative or not required by law. Electronically signed by: Jaswant Nino M.D. 09/06/2022 4:55 PM Dictated:09/06/221645 Transcribed: 09/06/221645
--- NOTE | 2022-09-08 18:59 | Nephrology Progress Note ---
Date of Service September 08, 2022 Assessment & Plan (1) ESRD (end stage renal disease): Plan: 82-year-old male who has longstanding chronic kidney disease, which has now pro gressed to end-stage renal disease needing dialysis. Now readmitted with unexplained abdominal/flank/back pain. 1. End-stage renal disease. He does have a peritoneal dialysis catheter in place; however, given ongoing issue with this unexplained abdominal/flank/back pain, it will be very tricky to start peritoneal dialysis. Abdominal pain is taken as an absolute emergency and peritoneal dialysis to rule out peritonitis. He is also very constipated both these problems can cause significant problem and confusion with starting PD. Now has tunnelled HD cath as well as PD catheter >attempted HD but pt refused today d/t pain > mireya retry tomorrow Can be discharged as long as we have pain under control and/or pain meds given to him for use at home. He does not feel he can manage at home in current state of anxiety and back pain. will do cbc and renal panel tomorrow. (2) Peritoneal dialysis catheter in situ: Plan: PD cath flushed today, dressing changed; did 500 mL in and out exchange x 2 which was well tolerated; ONLY DIALYSIS nurses should be accessing PD Catheter Admission and Anticipated Discharge Date Admission Date: September 03, 2022 Subjective pt refused HD today d/t uncontrolled R side pain and anxiety. seen on midday rounds; told me he's doing "terrible" can't eat, uncontrolled R flank pain; no sob. tells me he's moving bowels daily Review of Systems Review of Systems: All systems reviewed & are unremarkable except as noted in Subjective Physical Exam Constitutional: well developed and well nourished; no acute distress Eyes: EOM intact bilaterally ENMT: Mouth: + dry oral mucous membranes Neck: normal visual inspection Respiratory: Auscultation: + crackles (bibasilar) Cardiovascular: Rate/Rhythm: regular rate and regular rhythm Extremities: + edema (1+ pretibial BL) Gastrointestinal (Abdomen): Percussion/Palpation: abdomen soft; abdomen nontender PD cath present Neurologic: castro, resting BLUE tremor, fluent speech Psychiatric: Orientation: alert and oriented x 3 Results & Data Vital Signs (Past 12 Hours) Vital Signs Temp Pulse Resp BP Pulse Ox O2 Del Method 09/08/22 15:40 36.6 C 92 H 16 124/84 94 Room Air 09/08/22 07:37 36.5 C 89 16 105/62 95 Room Air Laboratory Results 09/07/22 05:48 09/08/22 06:26
[2022-09-08] MEDS: DOCUSATE SODIUM/SENNA 50/8.6MG TAB PO SCH (21:44)
[2022-09-09] MEDS: LEVOTHYROXINE SODIUM 150 MCG TABLET PO SCH (05:24)
[2022-09-09] MEDS ORDERED: HEPARIN SOD (PORCINE) 1000 UNIT/ML IV ONE (07:35)
[2022-09-09] MEDS ORDERED: SODIUM CHLORIDE 0.9% 1000ML 1,000 ML IV PRN (07:35)
[2022-09-09] MEDS ORDERED: EPOETIN ALFA 10,000 UNITS/ML VIAL IV ONE (07:37)
[2022-09-09] MEDS: ASPIRIN 81 MG ECTAB PO SCH (07:59)
[2022-09-09] MEDS: METOPROLOL TARTRATE 25 MG TAB PO SCH ×3 (07:59→21:18)
[2022-09-09] MEDS: APIXABAN 2.5 MG TAB PO SCH ×2 (08:00→21:20)
[2022-09-09] MEDS: hydrOXYzine HCl 10 MG TAB PO PRN ×2 (08:01→15:30)
[2022-09-09] MEDS: DICLOFENAC SOD 1% GEL 100 GM TUBE EXT SCH ×3 (08:03→21:25)
[2022-09-09] MEDS: ACETAMINOPHEN 500 MG TAB PO SCH ×3 (08:05→22:52)
[2022-09-09] MEDS: BACLOFEN 10 MG TAB PO SCH (08:05)
[2022-09-09] MEDS: allopurinoL 100 MG TAB PO SCH (08:05)
[2022-09-09] MEDS: LIDOCAINE 5% 1 PATCH TD SCH (08:05)
[2022-09-09] MEDS: DULoxetine HCL 30 MG CAP PO SCH (08:05)
[2022-09-09] MEDS: POLYETHYLENE (MIRALAX) 17 GM PACK PO SCH (08:05)
[2022-09-09] MEDS: INSULIN ASPART PER UNIT CHARGE SC SCH ×4 (08:48→21:24)
--- NOTE | 2022-09-09 09:43 | CT Scan Report ---
THORACIC SPINE CT CT DOSE: 2045.60 mGy.cm HISTORY: Back pain TECHNIQUE: Multiaxial CT images of the thoracic spine were performed and reformatted in the sagittal and coronal plane without the use of contrast. A dose lowering technique was utilized adhering to th e principles of ALARA. COMPARISON: Chest CT 08/12/2020. FINDINGS: No fracture or subluxation within the thoracic spine. No suspicious lytic or blastic osseou s lesions. Mild to moderate degenerative disc disease throughout the thoracic spine. Partially visual ized lumbar spinal fusion hardware is better appreciated on the same day lumbar spine CT. Paravertebr al soft tissues are unremarkable. No significant central canal narrowing by CT technique. Partially v isualized central venous catheter terminating at the distal SVC. No pneumothorax. Right lower lobe li near densities favor subsegmental atelectasis. There is mild elevation of the right hemidiaphragm. IMPRESSION: 1. No fractures within the thoracic spine. 2. Mild to moderate degenerative disc disease throughout the thoracic spine. ACT 112: Negative or not required by law. Electronically signed by: Jaswant Nino M.D. 09/09/2022 9:41 AM
--- NOTE | 2022-09-09 11:26 | Hospitalist Progress Note ---
Date of Service September 09, 2022 Assessment & Plan (1) Acute right flank pain: (2) Elevated lipase: (3) Cholelithiasis: (4) Kidney lesion: (5) Pancreatic cyst: (6) ANGY (iron deficiency anemia): (7) ESRD (end stage renal disease): (8) Peritoneal dialysis catheter in situ: (9) Chronic diastolic CHF (congestive heart failure): (10) Atrial fibrillation: (11) Hypothyroidism: (12) DM type 2 (diabetes mellitus, type 2): (13) Hyponatremia: Plan This is an 82-year-old male with PMH DM type II, hypothyroidism, pancreatic cyst, chronic diastolic CHF, atrial fibrillation on Eliquis, HTN, LBBB, ESRD with peritoneal dialysis catheter in place, history of thyroid cancer, history of prostate cancer, and other problems listed below who presents to the ED with recurrent right flank pain. Recurrent R flank pain Cholelithiasis Elevated lipase Admitted earlier this week with similar pain - liver ultrasound showed gall bladder sludge, HIDA scan was negative for any acute cholecystitis/cystic duct obstruction Pain continues to come and go GI feels maybe constipation? recs a good bowel regimen, moved his bowels today 5/2 On Senna S 2 at HS and scheduled miralax rib series Xray-did not show any rib fracture lidocaine patch, heat Does not have any rash to justify shingles and does not have any radiculopathic pain to justify any significant nerve entrapment Pt is not taking scheduled baclofen and is refusing duloxetine will d/c duloxetine and change baclofen to prn Received IV dilaudid and morphine intermittent CT abd/pelvis:No bowel wall thickening or obstruction.2. Cardiomegaly and mild bibasilar atelectasis, unchanged3. Indeterminate 10 mm lesion of the interpolar right kidney again noted. Correlation with a nonemergent follow-up renal ultrasound recommended.4. No renal or ureteral stones. No hydronephrosis.5. Cholelithiasis.6. Colonic diverticulosis.7. No acute fractures.8. Additional findings as above. CT thoracic spine showed degenerative changes, but nothing acute awaiting CT lumbar spine pt with 2 prior lumbar surgeries - refusing MRIS Pain management has been consulted - appreciate their recs He is having a better day today, feel if we can control anxiety may improve pain as well History of severe anxiety Appreciate psychiatric input and recommendation stop duloxetine, pt refusing Will trial buspar 5mg bid, discussed with daughter will discuss with pt as well ESRD (end stage renal disease) Peritoneal dialysis catheter in place, was due to start today prior to admission Per nephrology patient to require hemodialysis due to abdominal pain Pt had tunneled cath placed at [facility] 09/01 currently receiving HD now Atrial fibrillation continue metoprolol and eliquis No acute symptoms Chronic diastolic CHF (congestive heart failure) Appears euvolemic, continue torsemide potassium stopped DM type 2 (diabetes mellitus, type 2) Hgb A1c 7.4 08/2022 Hold oral agents and utilize NovoLog per protocol while hospitalized bsg 128 Hyponatremia Na 134, chronic, at recent baseline Continue to monitor-132 on 09/07/2022 ANGY (iron deficiency anemia) Receives iron infusions Hypothyroidism Continue levothyroxine DVT Ppx: Eliquis Code status: DNR per discussion PCP: Nati Dispo: Admitted to med/surg A total of 45 minutes was spent with greater than 50% of that time personally viewing all current laboratory work and diagnostic imaging studies obtained in the ED. Additionally, I was able to view the patients past medication reconciliation and history with direct visualization in the patients chart. Included in the time above, a portion of that time was spent assessing the patient while discussing and collaborating with specialists, if necessary, and making medical decision making on treatment plan. All of the above was collaborated with Dr. Valente. Please see addendum for further details. Admission and Anticipated Discharge Date Admission Date: September 03, 2022 Supervising Physician Co-Signing Physician Notes Patient is seen and examined while having hemodialysis this morning. Denies any right flank pain today. Reports anxiety intermittently. I personally reviewed the chart including imaging studies. CT lumbar spine suggestive of right lateral disc bulge at L2-L3 may impinge in the exiting right L2 nerve root. Consulted Dr. Jackson for further input. Agree with management of anxiety. Hemodialysis as per nephrology. Appreciate input. I personally reviewed the record. Patient is interviewed and examined at bedside. Patient's care is coordinated with Eileen Hopper PA-C. Please refer to the documentation above for details of patient's presentation and for discussion of other issues. Subjective Patient was seen and examined in HD Follow up R sided backed pain, eSRD. Pt in much better spirits today. Said he is having a good day. Denies f/c/s, chest pain ,sob, n/v/d, abd pain. Back pain is currently absent. Still dealing with anxiety. Review of Systems Review of Systems: All systems reviewed & are unremarkable except as noted in HPI & below Physical Exam Physical Exam: Gen: WD/WN, elderly, M, lying in bed in HD, NAD, A&O x3, improved affect today HEENT: Normocephalic, atraumatic, conjunctivae moist, sclerae anicteric, mucous membranes dry Lung: Clear to Auscultation bilaterally, no wheezes/rales/rhonchi Heart: IRR/IRR, no murmurs, rubs, or gallops, tunnelled cath RACW Abdomen: Soft, NT, ND +BS x 4, +PD cath Extremities: +1 lower ext edema Skin: Warm, no rash, negative turgor. Results & Data Results & Data Vital Signs (Past 12 Hours) Vital Signs Temp Pulse Resp BP Pulse Ox O2 Del Method 09/09/22 07:38 36.9 C 95 H 16 155/92 H 97 Room Air Diagnostic Findings Thoracic Spine CT 09/09/22 07:[address] DOSE: 2045.60 mGy.cm HISTORY: Back pain TECHNIQUE: Multiaxial CT images of the thoracic spine were performed and reformatted in the sagittal and coronal plane without the use of contrast. A dose lowering technique was utilized adhering to the principles of ALARA. COMPARISON: Chest CT 08/12/2020. FINDINGS: No fracture or subluxation within the thoracic spine. No suspicious lytic or blastic osseous lesions. Mild to moderate degenerative disc disease throughout the thoracic spine. Partially visualized lumbar spinal fusion hardware is better appreciated on the same day lumbar spine CT. Paravertebral soft tissues are unremarkable. No significant central canal narrowing by CT technique. Partially visualized central venous catheter terminating at the distal SVC. No pneumothorax. Right lower lobe linear densities favor subsegmental atelectasis. There is mild elevation of the right hemidiaphragm. IMPRESSION: 1. No fractures within the thoracic spine. 2. Mild to moderate degenerative disc disease throughout the thoracic spine. ACT 112: Negative or not required by law. Electronically signed by: Jaswant Nino M.D. 09/09/2022 9:41 AM Medications Administered Current Inpatient Medications Acetaminophen (Acetaminophen 500 Mg Tab) 1,000 mg PO Q8H [facility] Stop: 10/03/22 15:44 Last Admin: 09/09/22 08:05 Dose: Not Given Allopurinol (Allopurinol 100 Mg Tab) 100 mg PO QAM [facility] Stop: 10/04/22 08:59 Last Admin: 09/09/22 08:05 Dose: Not Given Apixaban (Apixaban 2.5 Mg Tab) 2.5 mg PO BID [facility] Stop: 10/04/22 08:59 Last Admin: 09/09/22 08:00 Dose: 2.5 mg Aspirin (Aspirin 81 Mg Ectab) 81 mg PO DAILY [facility] Stop: 10/04/22 08:59 Last Admin: 09/09/22 07:59 Dose: 81 mg Baclofen (Baclofen 10 Mg Tab) 5 mg PO TID PRN PRN Reason: muscle spasm/pain Stop: 10/06/22 20:59 Buspirone HCl (Buspirone 5 Mg Tab) 5 mg PO BID [facility] Stop: 10/09/22 20:59 Dextrose (Dextrose 50% 50 Ml Syringe) 25 - 50 ml IV UD PRN; Protocol PRN Reason: Hypoglycemia Protocol Stop: 10/03/22 17:08 Diclofenac Sodium (Diclofenac Sod 1% Gel 100 Gm Tube) 2 gm EXT TID LILI; Protocol Stop: 10/03/22 20:59 Last Admin: 09/09/22 08:03 Dose: 2 gm Glucagon (Glucagon For Inj 1 Mg Vial) 1 mg SQ UD PRN; Protocol PRN Reason: Hypoglycemia Protocol Stop: 10/03/22 17:08 Glucose (Glucose 40% Gel 15 Gm Tube) 15 - 30 gm PO UD PRN; Protocol PRN Reason: Hypoglycemia Protocol Stop: 10/03/22 17:08 Glucose (Glucose 10 Tab/Tube) 4 - 8 tab PO UD PRN; Protocol PRN Reason: Hypoglycemia Treatment Stop: 10/03/22 17:08 Hydroxyzine HCl (Hydroxyzine Hcl 10 Mg Tab) 10 mg PO TID PRN PRN Reason: Anxiety Stop: 10/05/22 20:32 Last Admin: 09/09/22 08:01 Dose: 10 mg Promethazine HCl 12.5 mg/ (Sodium Chloride) 50.5 mls @ 202 mls/hr IV Q6H PRN PRN Reason: Nausea And Vomiting Stop: 10/05/22 16:42 Last Infusion: 09/08/22 06:39 Dose: Infused Sodium Chloride (Nss 1000ml) 1,000 mls @ 0 mls/hr IV .Q0M PRN PRN Reason: For Hemodialysis Use ONLY Stop: 09/09/22 13:34 Insulin Aspart (Insulin Aspart Per Unit Charge) 0 units SC ACHS [facility] Stop: 10/03/22 20:59 Last Admin: 09/09/22 08:48 Dose: 2 units Levothyroxine Sodium (Levothyroxine Sodium 150 Mcg Tablet) 150 mcg PO DAILYBB [facility] Stop: 10/04/22 06:29 Last Admin: 09/09/22 05:24 Dose: Not Given Lidocaine (Lidocaine 5% 1 Patch) 1 patch TD QAM [facility] Stop: 10/04/22 08:59 Last Admin: 09/09/22 08:05 Dose: Not Given Melatonin (Melatonin 3 Mg Tab) 3 mg PO HS [facility] Stop: 10/09/22 20:59 Metoprolol Tartrate (Metoprolol Tartrate 25 Mg Tab) 25 mg PO TID [facility] Stop: 10/03/22 20:59 Last Admin: 09/09/22 07:59 Dose: 25 mg Miscellaneous (Carbohydrates For Hypoglycemia ) 15 - 30 gm PO UD PRN PRN Reason: Hypoglycemia Protocol Stop: 10/03/22 17:08 Miscellaneous (Remove Lidoderm Patch) 1 each N/A DAILY@2100 [facility] Stop: 10/04/22 20:59 Last Admin: 09/08/22 21:44 Dose: Not Given Oxycodone HCl (Oxycodone Hcl Ir 5 Mg Tab (Immediate Release)) 5 mg PO Q4H PRN PRN Reason: Pain Stop: 09/19/22 08:47 Last Admin: 09/07/22 10:39 Dose: 5 mg Polyethylene Glycol (Polyethylene (Miralax) 17 Gm Pack) 17 gm PO DAILY [facility] Stop: 10/03/22 17:14 Last Admin: 09/09/22 08:05 Dose: Not Given Senna/Docusate Sodium (Docusate Sodium/Senna 50/8.6mg Tab) 2 tab PO HS [facility] Stop: 10/04/22 20:59 Last Admin: 09/08/22 21:44 Dose: Not Given Torsemide (Torsemide 100 Mg Tab) [facility] [place]: 10/04/22 08:59 Last Admin: 09/07/22 08:38 Dose: 100 mg
--- NOTE | 2022-09-09 12:52 | CT Scan Report ---
CT SCAN OF THE LUMBAR SPINE WITHOUT IV CONTRAST CLINICAL HISTORY: Low back pain. COMPARISON STUDY: Abdominal CT dated 09/06/2022. TECHNIQUE: CT scan of the lumbar spine was performed from the lower thoracic spine to the sacrum. Jahaira ges are reviewed in the axial, sagittal, and coronal planes. IV contrast was not administered for thi s examination. A dose lowering technique was utilized adhering to the principles of ALARA. The examin ation is significantly degraded by streak artifact from multilevel spinal hardware. FINDINGS: The skeletal structures are osteopenic. There is no evidence of acute fracture or malalignm ent. Vertebral body height and alignment are maintained throughout the lumbar spine. There is straigh tening of the lumbar lordosis. Large anterior and lateral marginal osteophytes are seen throughout. T here is postsurgical change from laminectomy and posterior fusion seen at L2-S1 with interposition geovanny ne graft. Interpedicular screws are present at all levels. The orthopedic hardware appears intact. Th e transverse processes appear intact. No lytic or blastic lesion is seen. There is no evidence of spo ndylolysis. There is postsurgical change from discectomy at L3-L4, L4-L5, and L5-S1. Moderate disc sp klaudia narrowing is seen at L1-L2 and L2-L3. Posterior disc osteophyte complexes are noted at all lumbar levels. There is no CT evidence of high-grade central canal stenosis throughout the lumbar spine. Th ere is a right lateral disc bulge at L2-L3 seen on axial image #129. This may impinge on the exiting right L2 nerve root. The visualized sacrum and bony pelvis appear intact. Degenerative change is note d in the sacroiliac joints. A bone graft donor site is seen in the right ilium. There is fatty atroph y of the paraspinous musculature. The abdominal aorta is normal in caliber noting moderate atheroscle rotic calcification. There is no retroperitoneal lymphadenopathy. A catheter is partially visualized coiled in the pelvis. IMPRESSION: 1. No acute bony abnormality is seen involving the lumbar spine. 2. Osteopenia with extensive postsurgical and degenerative change as above. 3. A right lateral disc bulge at L2-L3 may impinge in the exiting right L2 nerve root. 4. Additional findings as above. ACT 112: Negative or not required by law. Dictated: 09/09/2022 9:26 AM Transcribed: 09/09/2022 12:32 PM Vanesa [id number] MEETA_Darshan [id number] Electronically signed by: Silvano Cuevas M.D. 09/09/2022 12:51 PM
[2022-09-09] MEDS: BACLOFEN 10 MG TAB PO PRN (21:19)
[2022-09-09] MEDS: MELATONIN 3 MG TAB PO SCH (21:21)
[2022-09-09] MEDS: DOCUSATE SODIUM/SENNA 50/8.6MG TAB PO SCH (21:25)
[2022-09-09] MEDS: busPIRone 5 MG TAB PO SCH (21:25)
[2022-09-10] MEDS: LEVOTHYROXINE SODIUM 150 MCG TABLET PO SCH (05:44)
[2022-09-10 07:28] LABS: Calcium 9.1 mg/dl (8.6-10.3); Creatinine Clr Calc Pharmacy 15.8 ml/min; Est GFR (African American) 16.2 ml/min; Est GFR (Non-African American) 13.9 ml/min; Potassium 3.8 mmol/L (3.5-5.1)
[2022-09-10] MEDS ORDERED: SODIUM CHLORIDE 0.9% 1000ML 1,000 ML IV PRN ×2 (08:13→08:16)
[2022-09-10] MEDS ORDERED: HEPARIN SOD (PORCINE) 1000 UNIT/ML IV ONE (08:13)
[2022-09-10] MEDS ORDERED: IRON SUCROSE 100 MG in SYRINGE 0 ML IV ONE (08:16)
[2022-09-10] MEDS ORDERED: EPOETIN ALFA 10,000 UNITS/ML VIAL IV ONE (08:16)
[2022-09-10] MEDS: busPIRone 5 MG TAB PO SCH ×3 (08:34→20:57)
[2022-09-10] MEDS: POLYETHYLENE (MIRALAX) 17 GM PACK PO SCH (08:35)
[2022-09-10] MEDS: METOPROLOL TARTRATE 25 MG TAB PO SCH ×3 (08:36→20:57)
[2022-09-10] MEDS: APIXABAN 2.5 MG TAB PO SCH ×2 (08:36→20:57)
[2022-09-10] MEDS: allopurinoL 100 MG TAB PO SCH (08:37)
[2022-09-10] MEDS: ACETAMINOPHEN 500 MG TAB PO SCH ×3 (08:37→22:34)
[2022-09-10] MEDS: INSULIN ASPART PER UNIT CHARGE SC SCH ×4 (08:38→20:31)
[2022-09-10] MEDS: ASPIRIN 81 MG ECTAB PO SCH (08:38)
[2022-09-10] MEDS: LIDOCAINE 5% 1 PATCH TD SCH (08:38)
[2022-09-10] MEDS: DICLOFENAC SOD 1% GEL 100 GM TUBE EXT SCH ×3 (08:38→20:35)
[2022-09-10] MEDS: BACLOFEN 10 MG TAB PO PRN ×2 (12:07→20:57)
[2022-09-10] MEDS: hydrOXYzine HCl 10 MG TAB PO PRN ×2 (14:00→20:57)
--- NOTE | 2022-09-10 17:47 | Hospitalist Progress Note ---
Date of Service September 10, 2022 Assessment & Plan (1) Acute right flank pain: (2) Elevated lipase: (3) Cholelithiasis: (4) Kidney lesion: (5) Pancreatic cyst: (6) ANGY (iron deficiency anemia): (7) ESRD (end stage renal disease): (8) Peritoneal dialysis catheter in situ: (9) Chronic diastolic CHF (congestive heart failure): (10) Atrial fibrillation: (11) Hypothyroidism: (12) DM type 2 (diabetes mellitus, type 2): (13) Hyponatremia: Plan Patient is an 82-year-old male with PMH DM type II, hypothyroidism, pancreatic cyst, chronic diastolic CHF, atrial fibrillation on Eliquis, HTN, LBBB, ESRD with peritoneal dialysis catheter in place, history of thyroid cancer, history of prostate cancer, and other problems listed below who presents to the ED with recurrent right flank pain. Recurrent R flank pain/Back Pain Likely secondary to lumbar disc bulge impinging on L2 nerve root Cholelithiasis Elevated lipase H/O Back surgeries Admitted earlier this week with similar pain - liver ultrasound showed gall bladder sludge, HIDA scan was negative for any acute cholecystitis/cystic duct obstruction --Lumbar CT:No acute bony abnormality is seen involving the lumbar spine. Osteopenia with extensive postsurgical and degenerative change as above. A right lateral disc bulge at L2-L3 may impinge in the exiting right L2 nerve root. --Thoracic CT:No fractures within the thoracic spine.Mild to moderate degenerative disc disease throughout the thoracic spine. --CT ABD:No bowel wall thickening or obstruction. Cardiomegaly and mild bibasilar atelectasis, unchanged. Indeterminate 10 mm lesion of the interpolar right kidney again noted. Correlation with a nonemergent follow-up renal ultrasound recommended. No renal or ureteral stones. No hydronephrosis. Cholelithiasis. Colonic diverticulosis.No acute fractures. -- Xray-did not show any rib fracture --Pain control -- Patient refused duloxetine -Patient refused MRI Pain management consulted - appreciate recs Orthopedics consulted, await input H/O severe anxiety Appreciate psychiatric input and recommendation stop duloxetine, pt refusing Previously on benzos, patient currently not interested Trial of buspar, Vistaril as needed ESRD (end stage renal disease) Peritoneal dialysis catheter in place, was due to start today prior to admission Per nephrology patient to require hemodialysis due to abdominal pain Pt had tunneled cath placed at [facility] 09/01 Refused dialysis today Atrial fibrillation continue metoprolol and Eliquis No acute symptoms Chronic diastolic CHF (congestive heart failure) Appears euvolemic, continue torsemide DM type 2 (diabetes mellitus, type 2) Hgb A1c 7.4 08/2022 Hold oral agents and utilize NovoLog per protocol while hospitalized bsg 128 Hyponatremia Na 134, chronic, at recent baseline Continue to monitor-132 on 09/07/2022 ANGY (iron deficiency anemia) Receives iron infusions Hypothyroidism Continue levothyroxine DVT Px: Eliquis Code status: DNI/DNR Admission and Anticipated Discharge Date Admission Date: September 03, 2022 Subjective Patient is seen and examined at bedside Denies any back pain today Sitting in chair during my encounter Admits to being anxious Refused dialysis today Discussed with psychiatry today Review of Systems Review of Systems: All systems reviewed & are unremarkable except as noted in Subjective Physical Exam Physical Exam: Physical Exam: Vitals signs as noted above General Appearance:Moderately built and nourished, no apparent distress Head: normocephalic, Atraumatic Eyes: normal inspection, EOMI Neck: supple, Trachea midline Respiratory/Chest: Normal breath sounds, CTA, No accessory muscle use Cardiovascular: Irregularly irregular, No murmur Abdomen/GI:Soft, Non tender, Bowel sounds present Extremities/Musculoskeletal:normal inspection, no edema Neurologic/Psych:AAOX3, grossly no focal neurological deficits Skin: normal color, warm Results & Data Results & Data Vital Signs (Past 12 Hours) Vital Signs Temp Pulse Resp BP BP Pulse Ox O2 Del Method 09/10/22 14:29 36.6 C 99 H 17 127/80 96 Room Air 09/10/22 14:03 91 H 124/84 09/10/22 08:40 Room Air 09/10/22 07:04 36.7 C 84 17 138/86 [address] [facility] 09/10/22 06:26 Sodium 134 L Potassium 3.8 Chloride 96 L Carbon Dioxide 26 BUN 42 H D Creatinine 3.81 H D Glucose 144 H Calcium 9.1
--- NOTE | 2022-09-10 17:49 | Nephrology Progress Note ---
Date of Service September 10, 2022 Assessment & Plan (1) ESRD (end stage renal disease): Plan: 82-year-old male who has longstanding chronic kidney disease, which has now pro gressed to end-stage renal disease needing dialysis. Now readmitted with unexplained abdominal/flank/back pain which has resolved w/ pain mgt but now severe anxiety.. 1. End-stage renal disease. He does have a peritoneal dialysis catheter in place; however, given ongoing issue with this unexplained abdominal/flank/back pain, it will be very tricky to start peritoneal dialysis. Abdominal pain is taken as an absolute emergency and peritoneal dialysis to rule out peritonitis. He is also very constipated both these problems can cause significant problem and confusion with starting PD. Now has tunnelled HD cath as well as PD catheter >ordered HD but pt refused today d/t anxiety and barely got through treatment yesterday due again to uncontrolled anxiety > will retry on 09/12; he also refused on 09/08 d/t anxiety as well as pain, latter now controlled needs to have BM DAILY d/t PD catheter; nephro RN has been flushing /changing PD cath dressing per routine He does not feel he can manage dialysis in current state of anxiety. Defer to primary service and did d/w them pt challenges regarding anxiety. (2) Peritoneal dialysis catheter in situ: Plan: PD cath flushed 09/08, dressing changed; did 500 mL in and out exchange x 2 which was well tolerated; ONLY DIALYSIS nurses should be accessing PD Catheter Admission and Anticipated Discharge Date Admission Date: September 03, 2022 Subjective pt seen and evaluated at about 1030 this am; he feels too anxious to do dialysis today he tells me; he is also refusing prn anxiety meds as well as buspar, though he took buspar midday. no sob, no n/v, no uncontrolled flank pain as before no edema. he believes that meds actually worsen his anxiety, believes current anxiety episode much worse than prior began during recent [facility] admission d/t unspecified medication. denies abdominal pain and moving his bowels daily he tells me. Review of Systems Review of Systems: All systems reviewed & are unremarkable except as noted in Subjective Physical Exam Constitutional: well developed and well nourished; no acute distress Eyes: EOM intact bilaterally ENMT: Mouth: + dry oral mucous membranes Neck: normal visual inspection Respiratory: Auscultation: + crackles (bibasilar) Cardiovascular: Rate/Rhythm: regular rate and regular rhythm Extremities: + edema (1+ pretibial BL) Gastrointestinal (Abdomen): Percussion/Palpation: abdomen soft; abdomen nontender Neurologic: ambulates w/ walker; fidgety Psychiatric: Orientation: alert and oriented x 3 Eye Contact: good eye contact Speech: normal rate/rhythm/volume of speech Results & Data Vital Signs (Past 12 Hours) Vital Signs Temp Pulse Resp BP BP Pulse Ox O2 Del Method 09/10/22 14:29 36.6 C 99 H 17 127/80 96 Room Air 09/10/22 14:03 91 H 124/84 09/10/22 08:40 Room Air 09/10/22 07:04 36.7 C 84 17 138/86 96 Room Air Laboratory Results 09/07/22 05:48 09/10/22 06:26
[2022-09-10] MEDS: MELATONIN 3 MG TAB PO SCH (20:57)
[2022-09-10] MEDS: DOCUSATE SODIUM/SENNA 50/8.6MG TAB PO SCH (20:57)
[2022-09-10] MEDS ORDERED: LORazepam 2 MG/1 ML VIAL IV STA (22:33)
[2022-09-11] MEDS: LEVOTHYROXINE SODIUM 150 MCG TABLET PO SCH (06:10)
[2022-09-11] MEDS: hydrOXYzine HCl 10 MG TAB PO PRN ×3 (06:11→19:44)
[2022-09-11 06:49] LABS: BUN Creatinine Ratio 12.8 (10-20); Calcium 8.8 mg/dl (8.6-10.3); Creatinine Clr Calc Pharmacy 14.2 ml/min; Est GFR (African American) 14.2 ml/min; Est GFR (Non-African American) 12.3 ml/min; Potassium 3.5 mmol/L (3.5-5.1)
[2022-09-11] MEDS: METOPROLOL TARTRATE 25 MG TAB PO SCH ×3 (07:46→21:23)
[2022-09-11] MEDS: ACETAMINOPHEN 500 MG TAB PO SCH ×3 (07:46→23:51)
[2022-09-11] MEDS: busPIRone 5 MG TAB PO SCH ×2 (07:47→21:24)
[2022-09-11] MEDS: ASPIRIN 81 MG ECTAB PO SCH (07:47)
[2022-09-11] MEDS: POLYETHYLENE (MIRALAX) 17 GM PACK PO SCH (07:47)
[2022-09-11] MEDS: LIDOCAINE 5% 1 PATCH TD SCH ×2 (07:47→07:52)
[2022-09-11] MEDS: DICLOFENAC SOD 1% GEL 100 GM TUBE EXT SCH ×4 (07:47→21:24)
[2022-09-11] MEDS: APIXABAN 2.5 MG TAB PO SCH ×2 (07:47→21:23)
[2022-09-11] MEDS: allopurinoL 100 MG TAB PO SCH (07:48)
[2022-09-11] MEDS: INSULIN ASPART PER UNIT CHARGE SC SCH ×4 (08:40→21:24)
--- NOTE | 2022-09-11 09:18 | Nephrology Progress Note ---
Date of Service September 11, 2022 Assessment & Plan (1) ESRD (end stage renal disease): Plan: 82-year-old male who has longstanding chronic kidney disease, which has now pro gressed to end-stage renal disease needing dialysis. Now readmitted with unexplained abdominal/R flank/back pain which has resolved w/ pain mgt but now severe anxiety, exacerbation of a fpc issue.. 1. End-stage renal disease. He does have a peritoneal dialysis catheter in place; however, given ongoing issue with this unexplained abdominal/flank/back pain, it will be very tricky to start peritoneal dialysis. Abdominal pain is taken as an absolute emergency and peritoneal dialysis to rule out peritonitis. He is also very constipated both these problems can cause significant problem and confusion with starting PD. Now has tunnelled HD cath as well as PD catheter. Pt has refused several HD txs this week d/t anxiety and struggled w/ anxiety on the one treatment he did have >>HE HAS BEEN ABLE TO DO ONLY ONE DIALYSIS THIS WEEK OF 3 PLANNED TREATMENTS d/t anxiety and barely got through the one he did have >>>needs to have BM DAILY d/t PD catheter; nephro RN has been flushing /changing PD cath dressing per routine He does not feel he can manage dialysis in current state of anxiety. Defer to primary service pt challenges regarding anxiety >> he clearly cannot do OP dialysis w/o better control of this (2) Peritoneal dialysis catheter in situ: Plan: PD cath flushed 5/2, dressing changed; did 500 mL in and out exchange x 2 which was well tolerated; ONLY DIALYSIS nurses should be accessing PD Catheter >avoid constipation Admission and Anticipated Discharge Date Admission Date: September 03, 2022 Subjective no acute interval events except c/o new L foot edema. R flank pain remains controlled. 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 no sob or edema apart from foot; no n/v Review of Systems Review of Systems: All systems reviewed & are unremarkable except as noted in Subjective Physical Exam Constitutional: well developed and well nourished; no acute distress (sleeping flat on RA when I enter room) Eyes: EOM intact bilaterally ENMT: Mouth: + dry oral mucous membranes Neck: normal visual inspection Respiratory: Auscultation: + crackles (bibasilar fine) Cardiovascular: Rate/Rhythm: regular rate and regular rhythm Extremities: + edema (1+ pretibial BL, 2+ L foot) Gastrointestinal (Abdomen): Percussion/Palpation: abdomen soft; abdomen nontender Psychiatric: Orientation: alert and oriented x 3 Eye Contact: good eye contact Speech: normal rate/rhythm/volume of speech Results & Data Vital Signs (Past 12 Hours) Vital Signs Temp Pulse Pulse Resp BP Pulse Ox O2 Del Method 09/11/22 07:58 Room Air 09/11/22 07:19 36.3 C L 76 18 121/67 97 Room Air 09/10/22 21:23 36.7 C 88 16 131/79 94 Room Air Laboratory Results 09/07/22 05:48 09/11/22 05:55
--- NOTE | 2022-09-11 10:16 | XRay Report ---
XR chest 1V portable HISTORY: Shortness of breath. COMPARISON: Chest and right rib series 09/04/2022. FINDINGS: No pneumothorax. No pleural effusions. A few bibasilar linear densities persist and favor s ubsegmental atelectasis or scarring. Right jugular central venous catheter terminates at the superior cavoatrial junction. This remains unchanged. No new focal lung consolidations identified. No evidenc e for pulmonary edema. The heart remains mildly enlarged. There is chronic elevation of the right brice phragm again noted. IMPRESSION: No significant change compared to the prior study. No acute process. ACT 112: Negative or not required by law. Electronically signed by: Jaswant Nino M.D. 09/11/2022 10:15 AM
--- NOTE | 2022-09-11 10:27 | Orthopedic Consultation ---
Date of Consultation September 11, 2022 Assessment & Plan (1) Acute right flank pain: Patient has periodic right flank pain. Its not clear if the finding at L2-3 which is fused has anything to do with his current symptoms. I would agree with pain management that an MRI would be helpful if the pain persists a diagnostic therapeutic selective nerve root block may be helpful. He clearly is not a surgical candidate given his extensive medical history. Dr. Jackson and I have discussed the case and he agrees. History of Present Illness Attending Physician: Lake Valente MD History of Present Illness Patient was seen bedside in room 312. He was admitted to the hospital due to uncontrolled right flank pain. States the pain began 2 to 3 weeks ago got progressively worse to the point he could no longer stand the pain presented to the emergency room. The pain seems to be episodic is not there in a constant fashion. He is not having any pain radiating into the groin or further down the leg. Should be noted he has a history significant for dense peripheral neuropathy and foot drop bilaterally. He also is on peritoneal dialysis for end-stage renal disease. He is on Eliquis due to atrial fibrillation. He denies any other numbness, tingling, or paresthesias. Allergies Allergy/AdvReac Type Severity Reaction Status Date / Time clonidine Allergy Unknown allergic Unverified 08/29/22 18:51 to all but 1 brand carvedilol Allergy Hives Verified 08/29/22 18:51 losartan Allergy Unknown Verified 08/29/22 18:51 ANJELICA Inhibitors AdvReac Intermediate INTOLERANCE Verified 08/29/22 18:51 PER MD ORDER allopurinol AdvReac Intermediate severe abd Verified 08/29/22 18:51 pain Beta-Blockers AdvReac Intermediate INTOLERANCE Verified 08/29/22 18:51 (Beta-Adrenergic Bloc PER DR ARELLANO doxazosin AdvReac Intermediate INTOLERANCE Verified 08/29/22 18:[address] ARELLANO [id number]-FiG Reductase AdvReac Intermediate INTOLERANCE Verified 08/29/22 18:51 Inhibitor PER [Rlbsnhy-Jki-Lny Reductase ADAN Inhibitor] citalopram AdvReac Unknown Verified 08/29/22 18:51 hydralazine AdvReac diarrhea, Verified 08/29/22 18:51 testicular pain hydrochlorothiazide AdvReac hyponatremi Verified 08/29/22 18:51 a lisinopril AdvReac Cough Verified 08/29/22 18:51 simvastatin [From Zocor] AdvReac Muscle Pain Verified 08/29/22 18:51 sitagliptin [From Januvia] AdvReac restlessnes Verified 08/29/22 18:51 s Home Medications Medication Instructions Recorded Confirmed Type allopurinol 100 mg tablet 100 mg PO QAM 02/25/18 09/03/22 History aspirin 81 mg tablet,delayed 81 mg PO DAILY 02/25/18 09/03/22 History release levothyroxine 150 mcg tablet 150 mcg PO DAILYBB 08/12/20 09/03/22 History multivitamin 1 tab PO DAILY 08/12/20 09/03/22 History B-complex with vitamin C 1 tab PO DAILY 08/29/22 09/03/22 History apixaban 2.5 mg tablet (Eliquis) 2.5 mg PO BID 08/29/22 09/03/22 History docusate sodium 100 mg tablet 100 mg PO DAILY 08/29/22 09/03/22 History glipizide 2.5 mg tablet, extended 2.5 mg PO QAM 08/29/22 09/03/22 History release 24 hr hydroxyzine HCl 10 mg tablet 10 mg PO TID PRN Anxiety 08/29/22 09/03/22 History linagliptin 5 mg tablet (Tradjenta) 5 mg PO QAM 08/29/22 09/03/22 History metoprolol tartrate 25 mg tablet 25 mg PO TID 08/29/22 09/03/22 History potassium chloride 20 mEq 40 meq PO DAILY 08/29/22 09/03/22 History tablet,extended release torsemide 100 mg tablet 100 mg PO QAM 08/29/22 09/03/22 History polyethylene glycol 3350 17 gram 17 g PO DAILY #14 ea 09/02/22 09/03/22 Rx oral powder packet (Miralax) Patient History Medical History (Updated 09/08/22 @ 16:48 by Enoch Tinajero PA-C) Atrial fibrillation Chronic diastolic CHF (congestive heart failure) COPD (chronic obstructive pulmonary disease) DM type 2 (diabetes mellitus, type 2) ESRD (end stage renal disease) Foot drop, bilateral Gout Hypertension Hypothyroidism ANGY (iron deficiency anemia) LBBB (left bundle branch block) Pancreatic cyst Peritoneal dialysis catheter in situ Prostate ca Pulmonary hypertension Spinal stenosis Thyroid cancer Surgical History (Updated 09/08/22 @ 16:48 by Enoch Tinajero PA-C) History of fusion of lumbar spine L2-S1, instrumented S/P lumbar fusion Family History Other Diabetes Hypertension Social History Smoking Status: Former smoker Cigarettes Per Day: 10; Second Hand Exposure: No; Do You Dip or Chew Tobacco: Yes; Hx Alcohol Use: No Hx Substance Use: No Preferred Language: Ukrainian Communication Ability: Effective Special Investigation Unit Investigator Required: No Beliefs That Will Affect Care: None marital status: Current Living Situation: Spouse Feels Safe at Home: Yes Safety Concerns: Feels Safe At This Time Assistive Devices: Cane and Walker Physical Exam Physical Exam: On exam the patient is seated in a chair. He appears comfortable. There are no rashes or lesions on his back. He is nontender to palpation or percussion. He has no CVA tenderness. He has full range of motion of the hips and knees. He is unable to dorsiflex his feet bilaterally. He has fair strength with plantarflexion. Remaining strength is 5 out of 5 throughout. The patient is alert and oriented. He answers questions appropriately. Cardiovascular exam reveals no gross abnormalities abdomen soft and nontender. Calves are supple nontender. Results & Data Vital Signs (Past 12 Hours) Vital Signs Temp Pulse Resp BP Pulse Ox O2 Del Method 09/11/22 07:58 Room Air 09/11/22 07:19 36.3 C L 76 18 121/67 97 Room Air Diagnostic Findings CT scan of the lumbar spine by report reveals a disc protrusion at L2-3 on the right. There is multilevel degenerative changes but no other high-grade stenosis or large disc herniations were noted. There is evidence of a lumbar decompression and fusion from L2 to the sacrum which appears to be intact per the report. It should also be noted the images were not available to view in PACS and this is by report only.
--- NOTE | 2022-09-11 13:45 | CT Scan Report ---
HEAD CT NONCONTRAST CT DOSE: 614.27 mGy.cm HISTORY: Altered mental status. Change in vision TECHNIQUE: Multiaxial CT images of the head were performed without the use of intravenous contrast. A utomated exposure control was utilized for this study. A dose lowering technique was utilized adheri ng to the principles of ALARA. Comparison: Head CT 04/15/2017. Findings: The paranasal sinuses and mastoid air cells are clear. The calvarium and skull base are int act. There is no mass, hematoma, midline shift, acute infarct. White matter hypodensity is nonspecifi c but suggestive of microvascular ischemic change. The ventricles and sulci demonstrate mild age-rela amy involutional changes. The orbits are unremarkable. Impression: No acute intracranial abnormality. Atrophy and microvascular ischemic changes. ACT 112: Negative or not required by law. Electronically signed by: Jaswant Nino M.D. 09/11/2022 1:43 PM
--- NOTE | 2022-09-11 20:12 | Hospitalist Progress Note ---
Date of Service September 11, 2022 Assessment & Plan (1) Acute right flank pain: (2) Elevated lipase: (3) Cholelithiasis: (4) Kidney lesion: (5) Pancreatic cyst: (6) ANGY (iron deficiency anemia): (7) ESRD (end stage renal disease): (8) Peritoneal dialysis catheter in situ: (9) Chronic diastolic CHF (congestive heart failure): (10) Atrial fibrillation: (11) Hypothyroidism: (12) DM type 2 (diabetes mellitus, type 2): (13) Hyponatremia: Plan Patient is an 82-year-old male with PMH DM type II, hypothyroidism, pancreatic cyst, chronic diastolic CHF, atrial fibrillation on Eliquis, HTN, LBBB, ESRD with peritoneal dialysis catheter in place, history of thyroid cancer, history of prostate cancer, and other problems listed below who presents to the ED with recurrent right flank pain. Recurrent R flank pain/Back Pain Likely secondary to lumbar disc bulge impinging on L2 nerve root Cholelithiasis Elevated lipase H/O Back surgeries Admitted earlier this week with similar pain - liver ultrasound showed gall bladder sludge, HIDA scan was negative for any acute cholecystitis/cystic duct obstruction --Lumbar CT:No acute bony abnormality is seen involving the lumbar spine. Osteopenia with extensive postsurgical and degenerative change as above. A right lateral disc bulge at L2-L3 may impinge in the exiting right L2 nerve root. --Thoracic CT:No fractures within the thoracic spine.Mild to moderate degenerative disc disease throughout the thoracic spine. --CT ABD:No bowel wall thickening or obstruction. Cardiomegaly and mild bibasilar atelectasis, unchanged. Indeterminate 10 mm lesion of the interpolar right kidney again noted. Correlation with a nonemergent follow-up renal ultrasound recommended. No renal or ureteral stones. No hydronephrosis. Cholelithiasis. Colonic diverticulosis.No acute fractures. -- Xray-did not show any rib fracture --Pain control -- Patient refused duloxetine -Patient refused MRI Pain management consulted - appreciate recs Appreciate orthopedics input: Not a surgical candidate If recurrence of significant pain, will consider getting MRI if patient allows. Currently no significant back pain H/O severe anxiety Appreciate psychiatric input and recommendation stop duloxetine, pt refusing Previously on benzos, patient currently not interested Trial of buspar, Vistaril as needed Appreciate psychiatry input ESRD (end stage renal disease) Peritoneal dialysis catheter in place, was due to start today prior to admission Per nephrology patient to require hemodialysis due to abdominal pain Pt had tunneled cath placed at [facility] 09/01 Refused dialysis today Atrial fibrillation continue metoprolol and Eliquis No acute symptoms Chronic diastolic CHF (congestive heart failure) Appears euvolemic, continue torsemide DM type 2 (diabetes mellitus, type 2) Hgb A1c 7.4 08/2022 Hold oral agents and utilize NovoLog per protocol while hospitalized bsg 128 Hyponatremia Na 134, chronic, at recent baseline Continue to monitor-132 on 09/07/2022 ANGY (iron deficiency anemia) Receives iron infusions Hypothyroidism Continue levothyroxine DVT Px: Eliquis Code status: DNI/DNR Admission and Anticipated Discharge Date Admission Date: September 03, 2022 Subjective Patient is seen and examined at bedside Still having anxiety issues Has been refusing dialysis secondary to anxiety issues Discussed with psychiatry today CT head showed no acute findings Denies any significant back pain Review of Systems 2 Review of Systems: All systems reviewed & are unremarkable except as noted in Subjective Physical Exam Physical Exam: Physical Exam: Vitals signs as noted above General Appearance:Moderately built and nourished, no apparent distress Head: normocephalic, Atraumatic Eyes: normal inspection, EOMI Neck: supple, Trachea midline Respiratory/Chest: Normal breath sounds, CTA, No accessory muscle use Cardiovascular: Irregularly irregular, No murmur Abdomen/GI:Soft, Non tender, Bowel sounds present Extremities/Musculoskeletal:normal inspection, no edema Neurologic/Psych:AAOX3, grossly no focal neurological deficits Skin: normal color, warm Results & Data Results & Data Vital Signs (Past 12 Hours) Vital Signs Temp Pulse Pulse Resp BP Pulse Ox O2 Del Method 09/11/22 14:50 36.8 C 79 18 115/77 97 Room Air 09/11/22 14:30 86 128/74 Laboratory Results [facility] 09/11/22 05:55 Sodium 135 L Potassium 3.5 Chloride 100 Carbon Dioxide 23 BUN 54 H Creatinine 4.23 H D Glucose 130 H Calcium 8.8
[2022-09-11] MEDS: BACLOFEN 10 MG TAB PO PRN (21:23)
[2022-09-11] MEDS: MELATONIN 3 MG TAB PO SCH (21:23)
[2022-09-11] MEDS: DOCUSATE SODIUM/SENNA 50/8.6MG TAB PO SCH (21:23)
[2022-09-11] MEDS ORDERED: hydrOXYzine HCl 25 MG TAB PO STA (22:27)
[2022-09-11] MEDS ORDERED: hydrOXYzine HCl 25 MG TAB PO PRN (22:28)
--- NOTE | 2022-09-11 23:10 | XRay Report ---
SINGLE VIEW CHEST CLINICAL HISTORY: Dyspnea. FINDINGS: An AP, portable, upright chest radiograph is compared to chest x-ray performed earlier the same day 09/11/2022 and correlated with chest CT dated 08/12/2020. A right-sided central venous catheter is unchanged in position. The heart is enlarged noting atherosclerotic calcification of the thoracic aorta. The pulmonary vasculature is noncongested. There is chronic elevation of the right hemidiaphra gm with bibasilar scarring/atelectasis. No airspace consolidation or large pleural effusion is identi fied. No pneumothorax is seen. The skeletal structures are osteopenic. The bony thorax is grossly int act. Arthritic change is seen in the shoulders. IMPRESSION: Cardiomegaly with no acute cardiopulmonary abnormality identified. ACT 112: Negative or not required by law. Electronically signed by: Silvano Cuevas M.D. 09/11/2022 11:08 PM
[2022-09-12] MEDS: ACETAMINOPHEN 500 MG TAB PO SCH ×4 (00:10→23:06)
[2022-09-12] MEDS: PROMETHAZINE HCL 12.5 MG in SODIUM CHLORIDE 0.9% 50 ML IV PRN ×3 (05:16→21:50)
[2022-09-12] MEDS: LEVOTHYROXINE SODIUM 150 MCG TABLET PO SCH (05:47)
[2022-09-12 06:51] LABS: BUN Creatinine Ratio 13.6 (10-20); Calcium 9.2 mg/dl (8.6-10.3); Creatinine Clr Calc Pharmacy 14.1 ml/min; Est GFR (African American) 14.1 ml/min; Est GFR (Non-African American) 12.2 ml/min; Potassium 3.5 mmol/L (3.5-5.1)
[2022-09-12] MEDS ORDERED: SODIUM CHLORIDE 0.9% 1000ML 1,000 ML IV PRN (07:25)
[2022-09-12] MEDS ORDERED: HEPARIN SOD (PORCINE) 1000 UNIT/ML IV SCH (08:00)
[2022-09-12] MEDS ORDERED: IRON SUCROSE 100 MG in SYRINGE 0 ML IV SCH (08:00)
[2022-09-12] MEDS ORDERED: EPOETIN ALFA 4,000 UNIT/ML VIAL IV SCH (08:00)
--- NOTE | 2022-09-12 11:53 | Nephrology Progress Note ---
Date of Service September 12, 2022 Assessment & Plan (1) ESRD (end stage renal disease): Plan: 82-year-old male who has longstanding chronic kidney disease, which has now pro gressed to end-stage renal disease needing dialysis. Now readmitted with unexplained abdominal/R flank/back pain which has resolved w/ pain mgt but now severe anxiety, exacerbation of a intermediate issue.. 1. End-stage renal disease. He does have a peritoneal dialysis catheter in place; however, given ongoing issue with this unexplained abdominal/flank/back pain, it will be very tricky to start peritoneal dialysis. Abdominal pain is taken as an absolute emergency and peritoneal dialysis to rule out peritonitis. He is also very constipated both these problems can cause significant problem and confusion with starting PD. Now has tunnelled HD cath as well as PD catheter. Pt has refused several HD txs this week d/t anxiety and struggled w/ anxiety on the one treatment he did have agrees to treatment today >>HE HAS BEEN ABLE TO DO ONLY ONE DIALYSIS THIS WEEK OF 3 PLANNED TREATMENTS d/t anxiety and barely got through the one he did have. Defer to primary service pt challenges regarding anxiety >> he clearly cannot do OP dialysis w/o better control of this >>>needs to have BM DAILY d/t PD catheter; nephro RN has been flushing /changing PD cath dressing per routine (2) Peritoneal dialysis catheter in situ: Plan: PD cath flushed 5/2, dressing changed; did 500 mL in and out exchange x 2 which was well tolerated; ONLY DIALYSIS nurses should be accessing PD Catheter >avoid constipation Admission and Anticipated Discharge Date Admission Date: September 03, 2022 Subjective tells me he had severe anxiety overnight. seen just as he's about to start HD; already bargaining for less time on tx. had sob ON; no further flank pain; ongoing edema does not endorse foot pain; +BM this am Review of Systems Review of Systems: All systems reviewed & are unremarkable except as noted in Subjective Physical Exam Constitutional: well developed and well nourished; no acute distress (on RA) Eyes: EOM intact bilaterally ENMT: Mouth: + dry oral mucous membranes Neck: normal visual inspection Respiratory: Auscultation: + crackles (bibasilar fine) Cardiovascular: Rate/Rhythm: regular rate and regular rhythm Extremities: + edema (1+ pretibial BL, 2+ BL feet L>R) Gastrointestinal (Abdomen): Percussion/Palpation: abdomen soft; abdomen nontender Psychiatric: Orientation: alert and oriented x 3 Eye Contact: good eye contact Speech: normal rate/rhythm/volume of speech Affect: + anxious affect Results & Data Vital Signs (Past 12 Hours) Vital Signs Temp Pulse Pulse Pulse Resp BP BP 09/12/22 11:00 63 151/100 H 09/12/22 10:30 76 154/100 H 09/12/22 10:00 84 111/96 09/12/22 09:30 82 152/102 H 09/12/22 09:21 36.8 C 77 09/12/22 07:31 36.9 C 88 18 134/94 Pulse Ox O2 Del Method 09/12/22 11:00 09/12/22 10:30 09/12/22 10:00 09/12/22 09:30 09/12/22 09:21 09/12/22 07:31 99 Room Air Laboratory Results 09/07/22 05:48 09/12/22 06:03
[2022-09-12] MEDS: HEPARIN SOD (PORCINE) 1000 UNIT/ML IV SCH ×2 (12:06→19:08)
[2022-09-12] MEDS: POLYETHYLENE (MIRALAX) 17 GM PACK PO SCH (13:26)
[2022-09-12] MEDS: allopurinoL 100 MG TAB PO SCH (13:48)
[2022-09-12] MEDS: METOPROLOL TARTRATE 25 MG TAB PO SCH ×3 (13:49→20:05)
[2022-09-12] MEDS: busPIRone 5 MG TAB PO SCH ×2 (13:49→20:04)
[2022-09-12] MEDS: APIXABAN 2.5 MG TAB PO SCH ×2 (13:49→20:04)
[2022-09-12] MEDS: ASPIRIN 81 MG ECTAB PO SCH (13:49)
[2022-09-12] MEDS: LIDOCAINE 5% 1 PATCH TD SCH (13:54)
[2022-09-12] MEDS: DICLOFENAC SOD 1% GEL 100 GM TUBE EXT SCH ×3 (13:54→20:05)
[2022-09-12] MEDS: INSULIN ASPART PER UNIT CHARGE SC SCH ×5 (14:35→20:47)
[2022-09-12] MEDS: BACLOFEN 10 MG TAB PO PRN (16:48)
--- NOTE | 2022-09-12 16:53 | Hospitalist Progress Note ---
Date of Service September 12, 2022 Assessment & Plan (1) Acute right flank pain: (2) Elevated lipase: (3) Cholelithiasis: (4) Kidney lesion: (5) Pancreatic cyst: (6) ANGY (iron deficiency anemia): (7) ESRD (end stage renal disease): (8) Peritoneal dialysis catheter in situ: (9) Chronic diastolic CHF (congestive heart failure): (10) Atrial fibrillation: (11) Hypothyroidism: (12) DM type 2 (diabetes mellitus, type 2): (13) Hyponatremia: Plan Patient is an 82-year-old male with PMH DM type II, hypothyroidism, pancreatic cyst, chronic diastolic CHF, atrial fibrillation on Eliquis, HTN, LBBB, ESRD with peritoneal dialysis catheter in place, history of thyroid cancer, history of prostate cancer, and other problems listed below who presents to the ED with recurrent right flank pain. Recurrent R flank pain/Back Pain Likely secondary to lumbar disc bulge impinging on L2 nerve root Cholelithiasis Elevated lipase H/O Back surgeries Admitted earlier this week with similar pain - liver ultrasound showed gall bladder sludge, HIDA scan was negative for any acute cholecystitis/cystic duct obstruction --Lumbar CT:No acute bony abnormality is seen involving the lumbar spine. Osteopenia with extensive postsurgical and degenerative change as above. A right lateral disc bulge at L2-L3 may impinge in the exiting right L2 nerve root. --Thoracic CT:No fractures within the thoracic spine.Mild to moderate degenerative disc disease throughout the thoracic spine. --CT ABD:No bowel wall thickening or obstruction. Cardiomegaly and mild bibasilar atelectasis, unchanged. Indeterminate 10 mm lesion of the interpolar right kidney again noted. Correlation with a nonemergent follow-up renal ultrasound recommended. No renal or ureteral stones. No hydronephrosis. Cholelithiasis. Colonic diverticulosis.No acute fractures. -- Xray-did not show any rib fracture --Pain control -- Patient refused duloxetine -Patient refused MRI Pain management consulted - appreciate recs Appreciate orthopedics input: Not a surgical candidate If recurrence of significant pain, will consider getting MRI if patient allows. Back pain is improved H/O severe anxiety Appreciate psychiatric input and recommendation stop duloxetine, pt refusing Previously on benzos, patient currently not interested Trial of buspar, Vistaril as needed Appreciate psychiatry input Needs follow-up with psychiatry upon discharge ESRD (end stage renal disease) Peritoneal dialysis catheter in place, was due to start today prior to admission Per nephrology patient to require hemodialysis due to abdominal pain Pt had tunneled cath placed at [facility] 09/01 Dialysis today Next dialysis scheduled on Wednesday next week as outpatient Atrial fibrillation continue metoprolol and Eliquis No acute symptoms Chronic diastolic CHF (congestive heart failure) Appears euvolemic, continue torsemide DM type 2 (diabetes mellitus, type 2) Hgb A1c 7.4 08/2022 Hold oral agents and utilize NovoLog per protocol while hospitalized Hyponatremia Na 134, chronic, at recent baseline Continue to monitor-132 on 09/07/2022 ANGY (iron deficiency anemia) Receives iron infusions Hypothyroidism Continue levothyroxine DVT Px: Eliquis Code status: DNI/DNR Admission and Anticipated Discharge Date Admission Date: September 03, 2022 Subjective Patient is seen and examined at bedside Had HD this morning Reports nausea during HD Discussed with Nephrology and Psychiatry today Denies any chest pain, dyspnea, dizziness, abd pain Review of Systems Review of Systems: All systems reviewed & are unremarkable except as noted in Subjective Physical Exam Physical Exam: Physical Exam: Vitals signs as noted above General Appearance:Moderately built and nourished, no apparent distress Head: normocephalic, Atraumatic Eyes: normal inspection, EOMI Neck: supple, Trachea midline Respiratory/Chest: Normal breath sounds, CTA, No accessory muscle use Cardiovascular: Irregularly irregular, No murmur Abdomen/GI:Soft, Non tender, Bowel sounds present Extremities/Musculoskeletal:normal inspection, no edema Neurologic/Psych:AAOX3, grossly no focal neurological deficits Skin: normal color, warm Results & Data Results & Data Vital Signs (Past 12 Hours) Vital Signs Temp Pulse Pulse Pulse Resp BP BP 09/12/22 13:33 36.7 C 85 18 157/83 H 09/12/22 13:20 36.6 C 76 09/12/22 12:30 75 154/97 H 09/12/22 12:00 95 H 152/103 H 09/12/22 11:30 80 116/109 H 09/12/22 11:00 63 151/100 H 09/12/22 10:30 76 154/100 H 09/12/22 10:00 84 111/96 09/12/22 09:30 82 152/102 H 09/12/22 09:21 36.8 C 77 09/12/22 07:31 36.9 C 88 18 134/94 BP Pulse Ox O2 Del Method 09/12/22 13:33 96 Room Air 09/12/22 13:20 147/104 H 09/12/22 12:30 09/12/22 12:00 09/12/22 11:30 09/12/22 11:00 09/12/22 10:30 09/12/22 10:00 09/12/22 09:30 09/12/22 09:21 09/12/22 07:31 99 Room Air Laboratory Results BMP 09/12/22 06:03 Sodium 134 L Potassium 3.5 Chloride 98 Carbon Dioxide 24 BUN 58 H Creatinine 4.26 H Glucose 144 H Calcium 9.2
[2022-09-12] MEDS: MELATONIN 3 MG TAB PO SCH (20:05)
[2022-09-12] MEDS: DOCUSATE SODIUM/SENNA 50/8.6MG TAB PO SCH (20:05)
[2022-09-13] MEDS: LEVOTHYROXINE SODIUM 150 MCG TABLET PO SCH (06:00)
[2022-09-13 06:41] LABS: BUN Creatinine Ratio 12.8 (10-20); Calcium 8.6 mg/dl (8.6-10.3); Creatinine Clr Calc Pharmacy 19.2 ml/min; Est GFR (African American) 20.5 ml/min; Est GFR (Non-African American) 17.7 ml/min; Potassium 3.4 mmol/L (3.5-5.1)
[2022-09-13 08:43] LABS: Thyroid Stimulating Hormone 5.015 uIu/ml (0.300-4.500)
[2022-09-13] MEDS ORDERED: POTASSIUM CHLORIDE 10 MEQ TABCR PO ONE (08:44)
[2022-09-13] MEDS: ACETAMINOPHEN 500 MG TAB PO SCH (09:01)
[2022-09-13] MEDS: LIDOCAINE 5% 1 PATCH TD SCH (09:02)
[2022-09-13] MEDS: POLYETHYLENE (MIRALAX) 17 GM PACK PO SCH (09:02)
[2022-09-13] MEDS: allopurinoL 100 MG TAB PO SCH (09:03)
[2022-09-13] MEDS: busPIRone 5 MG TAB PO SCH (09:03)
[2022-09-13] MEDS: DICLOFENAC SOD 1% GEL 100 GM TUBE EXT SCH (09:03)
[2022-09-13] MEDS: ASPIRIN 81 MG ECTAB PO SCH (09:03)
[2022-09-13] MEDS: APIXABAN 2.5 MG TAB PO SCH ×2 (09:04→09:16)
[2022-09-13] MEDS: METOPROLOL TARTRATE 25 MG TAB PO SCH ×2 (09:04→09:16)
[2022-09-13 09:18] LABS: T4 Free Thyroxine 1.16 ng/dl (0.61-1.60)
[2022-09-13] MEDS: INSULIN ASPART PER UNIT CHARGE SC SCH ×2 (09:47→12:43)
--- NOTE | 2022-09-13 12:33 | Hospitalist Progress Note ---
Date of Service September 13, 2022 Assessment & Plan (1) Acute right flank pain: (2) Elevated lipase: (3) Cholelithiasis: (4) Kidney lesion: (5) Pancreatic cyst: (6) ANGY (iron deficiency anemia): (7) ESRD (end stage renal disease): (8) Peritoneal dialysis catheter in situ: (9) Chronic diastolic CHF (congestive heart failure): (10) Atrial fibrillation: (11) Hypothyroidism: (12) DM type 2 (diabetes mellitus, type 2): (13) Hyponatremia: Plan Patient is an 82-year-old male with PMH DM type II, hypothyroidism, pancreatic cyst, chronic diastolic CHF, atrial fibrillation on Eliquis, HTN, LBBB, ESRD with peritoneal dialysis catheter in place, history of thyroid cancer, history of prostate cancer, and other problems listed below who presents to the ED with recurrent right flank pain. Recurrent R flank pain/Back Pain Likely secondary to lumbar disc bulge impinging on L2 nerve root Cholelithiasis Elevated lipase H/O Back surgeries Admitted earlier this week with similar pain - liver ultrasound showed gall bladder sludge, HIDA scan was negative for any acute cholecystitis/cystic duct obstruction --Lumbar CT:No acute bony abnormality is seen involving the lumbar spine. Osteopenia with extensive postsurgical and degenerative change as above. A right lateral disc bulge at L2-L3 may impinge in the exiting right L2 nerve root. --Thoracic CT:No fractures within the thoracic spine.Mild to moderate degenerative disc disease throughout the thoracic spine. --CT ABD:No bowel wall thickening or obstruction. Cardiomegaly and mild bibasilar atelectasis, unchanged. Indeterminate 10 mm lesion of the interpolar right kidney again noted. Correlation with a nonemergent follow-up renal ultrasound recommended. No renal or ureteral stones. No hydronephrosis. Cholelithiasis. Colonic diverticulosis.No acute fractures. -- Xray-did not show any rib fracture --Pain control -- Patient refused duloxetine -Patient refused MRI Pain management consulted - appreciate recs Appreciate orthopedics input: Not a surgical candidate If recurrence of significant pain, will consider getting MRI if patient allows. Back pain is improved, currently no issues H/O severe anxiety Appreciate psychiatric input and recommendation stop duloxetine, pt refusing Previously on benzos, patient currently not interested Continue buspar, Vistaril as needed Appreciate psychiatry input Advised to follow-up with psychiatry upon discharge ESRD (end stage renal disease) Peritoneal dialysis catheter in place, was due to start today prior to admission Per nephrology patient to require hemodialysis due to abdominal pain Pt had tunneled cath placed at [facility] 09/01 Last dialysis on 09/12/2022 Next dialysis scheduled on Wednesday next week as outpatient Atrial fibrillation continue metoprolol and Eliquis No acute symptoms Chronic diastolic CHF (congestive heart failure) Appears euvolemic, continue torsemide DM type 2 (diabetes mellitus, type 2) Hgb A1c 7.4 08/2022 Hold oral agents and utilize NovoLog per protocol while hospitalized Hyponatremia Na 134, chronic, at recent baseline Continue to monitor-132 on 09/07/2022 ANGY (iron deficiency anemia) Receives iron infusions Hypothyroidism Continue levothyroxine DVT Px: Eliquis Code status: DNI/DNR Disposition Home Admission and Anticipated Discharge Date Admission Date: September 03, 2022 Subjective Patient is seen and examined at bedside Anxious this morning but later felt much better Counseled and reassured him in detail at bedside Denies any chest pain, dyspnea, dizziness, nausea, abdominal pain No other complaints Prefers to be discharged home Review of Systems Review of Systems: All systems reviewed & are unremarkable except as noted in Subjective Physical Exam Physical Exam: Physical Exam: Vitals signs as noted above General Appearance:Moderately built and nourished, no apparent distress Head: normocephalic, Atraumatic Eyes: normal inspection, EOMI Neck: supple, Trachea midline Respiratory/Chest: Normal breath sounds, CTA, No accessory muscle use Cardiovascular: Irregularly irregular, No murmur Abdomen/GI:Soft, Non tender, Bowel sounds present Extremities/Musculoskeletal:normal inspection, no edema Neurologic/Psych:AAOX3, grossly no focal neurological deficits Skin: normal color, warm Results & Data Results & Data Vital Signs (Past 12 Hours) Vital Signs Temp Pulse Resp BP Pulse Ox O2 Del Method 09/13/22 08:00 Room Air 09/13/22 07:51 36.6 C 09/13/22 07:33 91 H 16 144/87 H 98 Room Air Laboratory Results BMP 09/13/22 05:51 Sodium 136 Potassium 3.4 L Chloride 102 Carbon Dioxide 24 BUN 40 H Creatinine 3.13 H D Glucose 171 H Calcium 8.6
--- NOTE | 2022-09-13 12:51 | Discharge Summary ---
Date of Service September 13, 2022 Admission HPI Per Admitting Provider History obtained from patient and review of prior admission records. 82-year-old male with PMH DM type II, hypothyroidism, pancreatic cyst, chronic diastolic CHF, atrial fibrillation on Eliquis, HTN, LBBB, ESRD with peritoneal dialysis catheter in place, history of thyroid cancer, history of prostate cancer, and other problems listed below who presents back from [facility] after having tunneled dialysis catheter placed. Patient recently admitted to [facility] 08/29 through 08/31 for right flank pain. Biliary colic was considered as cause of pain however patient underwent extensive imaging including CT ABD/pelvis, RUQ US, and HIDA scan without acute findings. Patient was discharged home but returned back to the hospital the following day for return of pain. Patient readmitted on 09/01. Evaluated by GI who did not recommend further GI work-up. Recommended treating constipation. Due to ESRD with current peritoneal dialysis catheter in place (has not started treatments), patient was evaluated by nephrology. Due to ongoing abdominal pain and constipation, nephrology recommended patient have tunneled dialysis catheter placed to start hemodialysis. Due to limited availability of services at [facility] and [facility], patient was transferred to [facility] today for tunneled dialysis catheter placement with IR. Patient was seen in room 302 after he arrived back from [facility]. Patient reports experiencing right flank pain in route to [facility] while in the ambulance. Patient reports medication he received for the catheter placement resolved the right flank pain. Patient denies any pain currently. Reports he is feeling well. Denies chest pain and shortness of breath. No nausea. Denies lightheadedness and dizziness. Vitals are stable. Admission Exam Per Admitting Provider Physical Exam Constitutional: WD/WN, vitals as above Eyes: PERRL, conjunctivae normal, anicteric sclerae ENMT: external ear and nose normal, oropharynx normal Respiratory: normal respiratory effort, lungs clear to auscultation Cardiovascular: Rate/Rhythm: regular rate and + irregularly irregular Vessels: normal peripheral pulses Extremities: no edema Chest (Breasts): Chest: + vascular access device or port (Tunneled catheter in place to right chest) Gastrointestinal (Abdomen): normal bowel sounds, soft, nontender, no hepatosplenomegaly Peritoneal dialysis catheter in place Musculoskeletal: no cyanosis or clubbing, extremities motor strength 5/5 Skin: no rashes, warm and dry Neurologic: PERRL, EOMI, accommodation nl, no face palsy, no dysarthria Psychiatric: A+Ox3, euthymic affect Principal Diagnosis Lumbar disc radiculopathy Anxiety Disorder End stage renal disease on dialysis Atrial fibrillation Discharge Data Allergies Allergy/AdvReac Type Severity Reaction Status Date / Time clonidine Allergy Unknown allergic Unverified 08/29/22 18:51 to all but 1 brand carvedilol Allergy Hives Verified 08/29/22 18:51 losartan Allergy Unknown Verified 08/29/22 18:51 ANJELICA Inhibitors AdvReac Intermediate INTOLERANCE Verified 08/29/22 18:51 PER MD ORDER allopurinol AdvReac Intermediate severe abd Verified 08/29/22 18:51 pain Beta-Blockers AdvReac Intermediate INTOLERANCE Verified 08/29/22 18:51 (Beta-Adrenergic Bloc PER DR HUDDLESTON doxazosin AdvReac Intermediate INTOLERANCE Verified 08/29/22 18:[address] HUDDLESTON Vkuhjls-ESJ-FmP Reductase AdvReac Intermediate INTOLERANCE Verified 08/29/22 18:51 Inhibitor PER [Azlughg-Ylg-Cgg Reductase ADAN Inhibitor] citalopram AdvReac Unknown Verified 08/29/22 18:51 hydralazine AdvReac diarrhea, Verified 08/29/22 18:51 testicular pain hydrochlorothiazide AdvReac hyponatremi Verified 08/29/22 18:51 a lisinopril AdvReac Cough Verified 08/29/22 18:51 simvastatin [From Zocor] AdvReac Muscle Pain Verified 08/29/22 18:51 sitagliptin [From Januvia] AdvReac restlessnes Verified 08/29/22 18:51 s Consultations 09/03/22 15:42 Consult Nephrology Routine 09/05/22 22:59 Consult Psychiatry Routine 09/07/22 08:21 Consult Pain Management Routine 09/09/22 13:32 Consult Orthopedic Surgery Routine 09/10/22 13:27 Consult Psychiatry Routine 09/12/22 13:37 Consult Behavioral Health Liaison Routine Procedures Performed Laboratory Results WBC 7.35 K/ul (4.8-10.8) 09/07/22 05:48 RBC 3.23 M/uL (4.70-6.10) L 09/07/22 05:48 Hgb 9.9 g/dl (14.0-18.0) L 09/07/22 05:48 Hct 29.4 % (42.0-52.0) L 09/07/22 05:48 MCV 91.0 fL (80.0-100.0) 09/07/22 05:48 MCH 30.7 pg (25.0-34.0) 09/07/22 05:48 MCHC 33.7 g/dL (32.0-36.0) 09/07/22 05:48 RDW Std Deviation 47.8 fL (36.4-46.3) H 09/07/22 05:48 RDW Coeff of Pooja 14.4 % (11.5-14.5) 09/07/22 05:48 Plt Count 321 K/uL (130-400) 09/07/22 05:48 MPV 10.1 fL (9.4-12.4) 09/07/22 05:48 Immature Gran % (Auto) 0.5 % 09/07/22 05:48 Neut % (Auto) 69.3 % 09/07/22 05:48 Lymph % (Auto) 13.2 % 09/07/22 05:48 [place] % (Auto) 12.2 % 09/07/22 05:48 Eos % (Auto) 3.8 % 09/07/22 05:48 Baso % (Auto) 1.0 % 09/07/22 05:48 Neut # (Auto) 5.09 K/uL (1.40-6.50) 09/07/22 05:48 Lymph # (Auto) 0.97 K/uL (1.2-3.4) L 09/07/22 05:48 [place] # (Auto) 0.90 K/uL (0.11-0.59) H 09/07/22 05:48 Eos # (Auto) 0.28 K/uL (0-0.50) 09/07/22 05:48 Baso # (Auto) 0.07 K/uL (0-0.2) 09/07/22 05:48 Immature Gran # (Auto) 0.04 K/uL (0.01-0.20) 09/07/22 05:48 Sodium 136 mmol/L (136-145) 09/13/22 05:51 Potassium 3.4 mmol/L (3.5-5.1) L 09/13/22 05:51 Chloride 102 mmol/L (98-107) 09/13/22 05:51 Carbon Dioxide 24 mmol/L (21-32) 09/13/22 05:51 Anion Gap 10 (3-11) 09/13/22 05:51 BUN 40 mg/dl (6-23) H 09/13/22 05:51 Creatinine 3.13 mg/dl (0.6-1.4) H D 09/13/22 05:51 Est Cr Clr Drug Dosing 19.2 ml/min 09/13/22 05:51 Est GFR ( Amer) 20.5 ml/min 09/13/22 05:51 Est GFR (Non-Af Amer) 17.7 ml/min 09/13/22 05:51 BUN/Creatinine Ratio 12.8 (10-20) 09/13/22 05:51 Glucose 171 mg/dl (70-99(Fasting)) H 09/13/22 05:51 POC Glucose 136 mg/dl (70-99) H 09/13/22 12:01 Calcium 8.6 mg/dl (8.6-10.3) 09/13/22 05:51 Phosphorus 5.6 mg/dl (2.5-4.9) H 09/08/22 06:26 Iron 33 mcg/dl (35-175) L 09/11/22 05:55 TIBC 268 mcg/dl (250-450) 09/11/22 05:55 Unsaturated IBC 235 mcg/dl (155-355) 09/11/22 05:55 Transferrin % Sat 12 % (20-50) L 09/11/22 05:55 Albumin 3.8 gm/dl (3.4-5.0) 09/08/22 06:26 Vitamin B12 1128 pg/ml (180-914) H 09/05/22 06:32 25-OH Vitamin D Total 63.9 ng/ml (30-100) 09/05/22 06:32 TSH 5.015 uIu/ml (0.300-4.500) H 09/13/22 07:40 Free T4 1.16 ng/dl (0.61-1.60) 09/13/22 07:40 Impressions Ribs w/Chest X-Ray 09/04/22 13:52 AP CHEST WITH RIGHT-SIDED RIB SERIES CLINICAL HISTORY: Atraumatic right-sided chest wall pain. FINDINGS: An AP upright chest radiograph with 4 additional views from a right sided rib series is compared to study dated 09/01/2022 and correlated with chest CT dated 08/12/2020. A right-sided central venous catheter is new from previous. The tip projects over the cavoatrial junction. The heart is enlarged noting atherosclerotic calcification of the thoracic aorta. The pulmonary vasculature is noncongested. There is chronic elevation of the right hemidiaphragm with bibasilar atelectasis. No airspace consolidation or large pleural effusion is identified. No pneumothorax is seen. The skeletal structures are osteopenic. There is no radiographic evidence of acute/displaced right-sided rib fracture on the rib series. The remainder of the bony thorax is grossly intact. Arthritic change is noted in the shoulders. Fusion hardware is noted in the lumbosacral spine. IMPRESSION: 1. Cardiomegaly with no acute cardiopulmonary abnormality. 2. There is no radiographic evidence of acute/displaced right-sided rib fracture on the rib series. ACT 112: Negative or not required by law. Electronically signed by: Silvano Cuevas M.D. 09/04/2022 3:01 PM Abdomen/Pelvis CT 09/06/22 13:[address] WITHOUT CONTRAST CT DOSE: 730.79 mGy.cm HISTORY: Right-sided abdominal pain. Acute abd pain TECHNIQUE: Multiaxial CT images of the abdomen and pelvis were performed without contrast. A dose lowering technique was utilized adhering to the principles of ALARA. COMPARISON STUDY: Abdomen and pelvis CT 09/01/2022. FINDINGS: Moderate hemidiaphragmatic elevation. Cardiomegaly with coronary artery calcifications. Bibasilar bibasilar atelectasis again noted. No pneumatosis or pneumoperitoneum. No acute fractures identified. Unremarkable spleen and adrenal glands. Mild cholelithiasis. 2.4 x 2.5 cm cystic lesion of the pancreatic tail with adjacent peripheral coarse calcifications measuring up to 6 mm. Additional cystic lesion of the pancreatic head measuring 1.9 cm. These foci may represent sidebranch IPMN's. A subcentimeter hypodense lesion within the posterior segment of the right hepatic lobe. This is incompletely characterized on this noncontrast study.. Cysts of the bilateral kidneys. A 3.6 cm cyst within the superior pole of the right kidney demonstrates mild layering milk of calcium. Slightly hyperdense 10 mm lesion within the right kidney on image 239 again noted. No renal or ureteral calculi or hydronephrosis. Prostamegaly. Urinary bladder wall thickening with mild distention. Atherosclerosis of the aorta without aneurysm. No lymphadenopathy identified. No bowel obstruction or bowel wall thickening. Colonic diverticulosis. Normal appendix. Tiny fat filled umbilical hernia. A catheter is noted which terminates within the dependent pelvis. Degenerative changes of the spine, pelvis and hips. Posterior interbody moiz and screw fusion hardware L2-S1. No evidence of hardware complication. IMPRESSION: 1. No bowel wall thickening or obstruction. 2. Cardiomegaly and mild bibasilar atelectasis, unchanged. 3. Indeterminate 10 mm lesion of the interpolar right kidney again noted. Correlation with a nonemergent follow-up renal ultrasound recommended. 4. No renal or ureteral stones. No hydronephrosis. 5. Cholelithiasis. 6. Colonic diverticulosis. 7. No acute fractures. 8. Additional findings as above. ACT 112: Negative or not required by law. Electronically signed by: Jaswant Nino M.D. 09/06/2022 4:[address] 09/09/22 07:39 CT SCAN OF THE LUMBAR SPINE WITHOUT IV CONTRAST CLINICAL HISTORY: Low back pain. COMPARISON STUDY: Abdominal CT dated 09/06/2022. TECHNIQUE: CT scan of the lumbar spine was performed from the lower thoracic spine to the sacrum. Images are reviewed in the axial, sagittal, and coronal planes. IV contrast was not administered for this examination. A dose lowering technique was utilized adhering to the principles of ALARA. The examination is significantly degraded by streak artifact from multilevel spinal hardware. FINDINGS: The skeletal structures are osteopenic. There is no evidence of acute fracture or malalignment. Vertebral body height and alignment are maintained throughout the lumbar spine. There is straightening of the lumbar lordosis. Large anterior and lateral marginal osteophytes are seen throughout. There is postsurgical change from laminectomy and posterior fusion seen at L2-S1 with interposition bone graft. Interpedicular screws are present at all levels. The orthopedic hardware appears intact. The transverse processes appear intact. No lytic or blastic lesion is seen. There is no evidence of spondylolysis. There is postsurgical change from discectomy at L3-L4, L4-L5, and L5-S1. Moderate disc space narrowing is seen at L1-L2 and L2-L3. Posterior disc osteophyte complexes are noted at all lumbar levels. There is no CT evidence of high-grade central canal stenosis throughout the lumbar spine. There is a right lateral disc bulge at L2-L3 seen on axial image #129. This may impinge on the exiting right L2 nerve root. The visualized sacrum and bony pelvis appear intact. Degenerative change is noted in the sacroiliac joints. A bone graft donor site is seen in the right ilium. There is fatty atrophy of the paraspinous musculature. The abdominal aorta is normal in caliber noting moderate atherosclerotic calcification. There is no retroperitoneal lymphadenopathy. A catheter is partially visualized coiled in the pelvis. IMPRESSION: 1. No acute bony abnormality is seen involving the lumbar spine. 2. Osteopenia with extensive postsurgical and degenerative change as above. 3. A right lateral disc bulge at L2-L3 may impinge in the exiting right L2 nerve root. 4. Additional findings as above. ACT 112: Negative or not required by law. Dictated: 09/09/2022 9:26 AM Transcribed: 09/09/2022 12:32 PM Vanesa [id number] [facility]_Darshan [id number] Electronically signed by: Silvano Cuevas M.D. 09/09/2022 12:[address] 09/09/22 07:[address] DOSE: 2045.60 mGy.cm HISTORY: Back pain TECHNIQUE: Multiaxial CT images of the thoracic spine were performed and reformatted in the sagittal and coronal plane without the use of contrast. A dose lowering technique was utilized adhering to the principles of ALARA. COMPARISON: Chest CT 08/12/2020. FINDINGS: No fracture or subluxation within the thoracic spine. No suspicious lytic or blastic osseous lesions. Mild to moderate degenerative disc disease throughout the thoracic spine. Partially visualized lumbar spinal fusion hardware is better appreciated on the same day lumbar spine CT. Paravertebral soft tissues are unremarkable. No significant central canal narrowing by CT technique. Partially visualized central venous catheter terminating at the distal SVC. No pneumothorax. Right lower lobe linear densities favor subsegmental atelectasis. There is mild elevation of the right hemidiaphragm. IMPRESSION: 1. No fractures within the thoracic spine. 2. Mild to moderate degenerative disc disease throughout the thoracic spine. ACT 112: Negative or not required by law. Electronically signed by: Jaswant Nino M.D. 09/09/2022 9:[address] 09/11/22 11:[address] DOSE: 614.27 mGy.cm HISTORY: Altered mental status. Change in vision TECHNIQUE: Multiaxial CT images of the head were performed without the use of intravenous contrast. Automated exposure control was utilized for this study. A dose lowering technique was utilized adhering to the principles of ALARA. Comparison: Head CT 04/15/2017. Findings: The paranasal sinuses and mastoid air cells are clear. The calvarium and skull base are intact. There is no mass, hematoma, midline shift, acute infarct. White matter hypodensity is nonspecific but suggestive of microvascular ischemic change. The ventricles and sulci demonstrate mild age-related involutional changes. The orbits are unremarkable. Impression: No acute intracranial abnormality. Atrophy and microvascular ischemic changes. ACT 112: Negative or not required by law. Electronically signed by: Jaswant Nino M.D. 09/11/2022 1:43 PM Chest X-Ray 09/11/22 22:42 SINGLE VIEW CHEST CLINICAL HISTORY: Dyspnea. FINDINGS: An AP, portable, upright chest radiograph is compared to chest x-ray performed earlier the same day 09/11/2022 and correlated with chest CT dated 08/12/2020. A right-sided central venous catheter is unchanged in position. The heart is enlarged noting atherosclerotic calcification of the thoracic aorta. The pulmonary vasculature is noncongested. There is chronic elevation of the right hemidiaphragm with bibasilar scarring/atelectasis. No airspace consolidation or large pleural effusion is identified. No pneumothorax is seen. The skeletal structures are osteopenic. The bony thorax is grossly intact. Arthritic change is seen in the shoulders. IMPRESSION: Cardiomegaly with no acute cardiopulmonary abnormality identified. ACT 112: Negative or not required by law. Electronically signed by: Silvano Cuevas M.D. 09/11/2022 11:08 PM Ordered Studies 09/06/22 13:37 CT Abd and Pelvis [CT abd pelvis wo con] Urgent 09/09/22 07:39 CT lumbar spine wo con Routine CT thoracic spine wo con Routine 09/11/22 11:58 CT head/brain wo con Urgent Hospital Course (1) Acute right flank pain: (2) Elevated lipase: (3) Cholelithiasis: (4) Kidney lesion: (5) Pancreatic cyst: (6) ANGY (iron deficiency anemia): (7) ESRD (end stage renal disease): (8) Peritoneal dialysis catheter in situ: (9) Chronic diastolic CHF (congestive heart failure): (10) Atrial fibrillation: (11) Hypothyroidism: (12) DM type 2 (diabetes mellitus, type 2): (13) Hyponatremia: Plan Patient is an 82-year-old male with PMH DM type II, hypothyroidism, pancreatic cyst, chronic diastolic CHF, atrial fibrillation on Eliquis, HTN, LBBB, ESRD with peritoneal dialysis catheter in place, history of thyroid cancer, history of prostate cancer, and other problems listed below who presents to the ED with recurrent right flank pain. Recurrent R flank pain/Back Pain Likely secondary to lumbar disc bulge impinging on L2 nerve root Cholelithiasis Elevated lipase H/O Back surgeries Admitted earlier this week with similar pain - liver ultrasound showed gall bladder sludge, HIDA scan was negative for any acute cholecystitis/cystic duct obstruction --Lumbar CT:No acute bony abnormality is seen involving the lumbar spine. Osteopenia with extensive postsurgical and degenerative change as above. A right lateral disc bulge at L2-L3 may impinge in the exiting right L2 nerve root. --Thoracic CT:No fractures within the thoracic spine.Mild to moderate degenerative disc disease throughout the thoracic spine. --CT ABD:No bowel wall thickening or obstruction. Cardiomegaly and mild bibasilar atelectasis, unchanged. Indeterminate 10 mm lesion of the interpolar right kidney again noted. Correlation with a nonemergent follow-up renal ultrasound recommended. No renal or ureteral stones. No hydronephrosis. Cholelithiasis. Colonic diverticulosis.No acute fractures. -- Xray-did not show any rib fracture --Pain control -- Patient refused duloxetine -Patient refused MRI Pain management consulted - appreciate recs Appreciate orthopedics input: Not a surgical candidate If recurrence of significant pain, will consider getting MRI if patient allows. Back pain is improved, currently no issues H/O severe anxiety Appreciate psychiatric input and recommendation stop duloxetine, pt refusing Previously on benzos, patient currently not interested Continue buspar, Vistaril as needed Appreciate psychiatry input Advised to follow-up with psychiatry upon discharge ESRD (end stage renal disease) Peritoneal dialysis catheter in place, was due to start today prior to admission Per nephrology patient to require hemodialysis due to abdominal pain Pt had tunneled cath placed at [facility] 09/01 Last dialysis on 09/12/2022 Next dialysis scheduled on Wednesday next week as outpatient Atrial fibrillation continue metoprolol and Eliquis No acute symptoms Chronic diastolic CHF (congestive heart failure) Appears euvolemic, continue torsemide DM type 2 (diabetes mellitus, type 2) Hgb A1c 7.4 08/2022 Hold oral agents and utilize NovoLog per protocol while hospitalized Hyponatremia Na 134, chronic, at recent baseline Continue to monitor-132 on 09/07/2022 ANGY (iron deficiency anemia) Receives iron infusions Hypothyroidism Continue levothyroxine DVT Px: Eliquis Code status: DNI/DNR Disposition Home Total Time Total Time Spent Total Time Spent (In Minutes): 48 minutes Discharge Plan Discharge Items Patient Disposition: Home - Self-Care Reason For Visit: R FLANK PAIN Discharge Diagnosis: Lumbar disc radiculopathy Anxiety Disorder End stage renal disease on dialysis Atrial fibrillation Activity: Per Instructions section Exercise/Sports: Gradually increase as tolerated Non-emergency contact: Primary Care Provider and Visual Merchandising Coordinator Call non-emergency contact if: you have any medication questions, your symptoms worsen, your pain is concerning for you and you have a fever Follow-up/Referrals: Pramod Damian MD [Primary Care Provider] - Diet: Carb Consistent or DM2 and Dialysis Renal Addtl Attending Provider Instructions: Follow-up with your primary physician in 1 week Follow-up with your seaweed harvester for dialysis on 09/15/2022 as scheduled next Follow-up with your psychiatrist Dr. Fara Tolliver in 1-2 weeks Seek immediate medical attention if your symptoms reoccur or worsen Please take all medications as instructed on discharge list below. Please call if you have any questions or problems. You can reach a [facility] hospitalist on duty at [facility] 24 hours a day by calling [phone] Pending Studies at Discharge: No Stand-Alone Forms: [facility] [employer], Smoking Cessation Medications and DC Order Prescriptions: New buspirone 5 mg Tablet 5 mg PO BID Qty: 60 1RF diclofenac sodium [Voltaren Arthritis Pain] 1 % Gel 2 g EXT BID PRN (Reason: Back Pain ) Qty: 100 0RF hydroxyzine HCl 25 mg Tablet 25 mg PO Q8H PRN (Reason: anxiety) Qty: 60 0RF oxycodone 5 mg Tablet 5 mg PO Q8H PRN (Reason: pain) Qty: 10 0RF baclofen 5 mg tablet 5 mg PO TID PRN (Reason: muscle spasm) Qty: 30 0RF Continued allopurinol 100 mg Tablet 100 mg PO QAM aspirin 81 mg Tablet,Delayed Release (Dr/Ec) 81 mg PO DAILY polyethylene glycol 3350 [Miralax] 17 gram Powder In Packet 17 g PO DAILY Qty: 14 0RF multivitamin Tablet 1 tab PO DAILY levothyroxine 150 mcg Tablet 150 mcg PO DAILYBB Tradjenta 5 mg tablet 5 mg PO QAM torsemide 100 mg tablet 100 mg PO QAM glipizide 2.5 mg tablet extended release 24hr 2.5 mg PO QAM metoprolol tartrate 25 mg tablet 25 mg PO TID Eliquis 2.5 mg tablet 2.5 mg PO BID B-complex with vitamin C Tablet 1 tab PO DAILY docusate sodium 100 mg Tablet 100 mg PO DAILY potassium chloride 20 mEq tablet extended release 40 meq PO DAILY Discontinued hydroxyzine HCl 10 mg tablet 10 mg PO TID PRN (Reason: Anxiety) Discharge Orders: Discharge Order (Routine); Ordered 09/13/22 Ordered By: [place] Admission Data Admit Date/Time: 09/03/22 15:21 Attending Provider: [place] Admit Provider: Breezy Huddleston Primary Care Provider: Pramod Damian Other Providers: Ray Diaz ; Fara Tolliver ; Galina Fritz ; Bill Galarza ; Tim Dupree ; Tiffany Arroyo ; Liu Segura ; Dyana Vaca ; Enoch Tinajero ; Willie Jackson
== END 2022-09-13 14:26 | disposition home or self-care (01) | DRG 551 ==
LOC: 3E 15:21 → SUATTDRO 15:21

== ENCOUNTER 2023-08-22 11:55 | Inpatient (IN) ==
--- OUTSIDE RECORDS SUMMARY | 2023-08-22 12:02 | External Medical Summary | Summary of Care ---
Author Name Unknown Organization [facility] Address [address] [place] [address] Phone [phone] Care Team Providers Care Pharm Spec Name Role Phone Pramod Damian MD Primary Care Provider [phone]- [phone] Reason for Visit * Reason Onset Date Comments Medication Refill 08/17/2023 Encounter Details Date Type Department Care Team (Late st Contact Info) Description 08/17/2023 Refill [facility] [address] [place] [address] Pramod Damian MD [address] [place] [address] Acute right-sided low back pain without sciatica Allergies Active Allergy Reactions Criticality Noted Date Comments Citalopram 04/20/2014 Clonidine Hydrochloride Nausea/vomiting 008 Nightmares, nervousness Reaction depending on brand!!! Must be produced by Actavis Elizabe Doxazosin Mesylate Other (Please comment) High 05/16/2007 Hydrochlorothiazide 08/30/2017 Hyponatremia Hydralazine 08/30/2017 Diarrhea, testicular pain Sitagliptin Other (Please comment) 06/01/2017 Restlessness Lisinopril Cough 02/13/2015 Losartan Other (Please comment) 08/30/2017 Other Allergy (See Comments) 11/26/2011 Pt states he had reactions to many other medications, but does not know their names. Was encouraged to provide us with names. Statins 04/04/2003 myalgias on zocor documented as of this encounter (statuses as of 08/19/2023) Medications Medication Sig Dispensed Refills Start Date End Date Status Blood Glucose Monitoring Suppl (Stratio) w/Device KIT Use up to 4 times a day 1 Kit 0 11/11/2017 Active Mobile Safe CaseTOUCH DELICA LANCETS FINE MISC Use four times daily 100 Each 11 05/12/2019 Active Renal Vitamin 0.8 MG Oral Tablet Take by mouth. 0 Active glipiZIDE ER 10 MG Oral Tablet Extended Release 24 Hour (glipiZIDE XL) Take 1 Tablet by mouth in the morning. 30 minutes before a meal.. 30 Tablet 5 10/08/2022 Active Additional Information Patient not taking.Reported on 07/26/2023 [employer] In Vitro Strip (Glucose Blood)Indications: Type 2 diabetes mellitus with hemoglobin A1c goal of less than 8.0% ([facility]) USE UP TO FOUR TIMES A DAY 400 Strip 3 10/28/2022 Active glipiZIDE 10 MG Oral Tablet (Glucotrol) Take 1 Tablet by mouth in the morning and 1 Tablet before bedtime. 30 minutes before a meal. 180 Tablet 3 11/18/2022 Active Lactulose 10 GM/15ML Oral Solution (Constulose)Indica tions:Other constipation TAKE 15 ML BY MOUTH TWICE A DAY NEEDED FOR SEVERE CONSTIPATION 237 mL 3 2023 Active Docusate Sodium 100 MG Oral Capsule Take 1 Capsule by mouth in the morning and 1 Capsule before bedtime. 0 Active Ventolin HFA 108 (90 Base) MCG/ACT Inhalation Aerosol SolutionIndication s:LRTI (lower respiratory tract infection) Inhale 2 Puffs by mouth every 4 hours as needed for Wheezing or Dyspnea. 1 g 0 02/27/2023 Active Additional Information Patient not taking.Reported on 05/18/2023 Potassium Chloride ER 20 MEQ Oral Tablet Extended Release Take 2 Tablets by mouth in the morning. 60 Tablet 3 03/05/2023 Active Apixaban 2.5 MG Oral Tablet (Eliquis) Take 1 Tablet by mouth in the morning and 1 Tablet before bedtime. 60 Tablet 5 03/21/2023 Active Torsemide 100 MG Oral Tablet (Demadex) Take 1 Tablet by mouth in the morning. 30 Tablet 5 03/22/2023 Active Metoprolol Succinate ER 25 MG Oral Tablet Extended Release 24 Hour (toPROL XL) Take 0.5 Tablets by mouth daily. 30 Tablet 5 03/26/2023 Active Additional Information Patient not taking.Reported on 05/18/2023 Cyclobenzaprine HCl 5 MG Oral Tablet (Flexeril) Take 1 Tablet by mouth in the morning and 1 Tablet at noon and 1 Tablet before bedtime. 90 Tablet 2 04/03/2023 Active Additional Information Patient not taking.Reported on 05/18/2023 Terazosin HCl 1 MG Oral Capsule (Hytrin) Take 1 Capsule by mouth at bedtime. 31 Capsule 5 04/07/2023 Active Gabapentin 100 MG Oral Capsule (Neurontin) Take 1 Capsule by mouth in the morning and 1 Capsule before bedtime. 60 Capsule 1 04/19/2023 Active Additional Information Patient not taking.Reported on 05/18/2023 Levothyroxine Sodium 150 MCG Oral Tablet (Levoxyl)Indicatio ns:Acquired hypothyroidism,Smita vated TSH TAKE 1 TABLET BY MOUTH EVERY MORNING AT LEAST 30 MINUTES PRIOR TO BREAKFAST OR OTHER MEDS. 90 Tablet 1 05/03/2023 Active Allopurinol 100 MG Oral Tablet (Zyloprim) Take 1 Tablet by mouth in the morning. 30 Tablet 5 07/09/2023 Active D3-1000 25 MCG (1000 UT) Oral Tablet (Cholecalciferol) Take 2 Tablets by mouth in the morning. 0 Active Magnesium 250 MG Oral Tablet Take 1 Tablet by mouth in the morning. 0 Active B Complex Vitamins Oral Capsule Take 1 Capsule by mouth in the morning. 0 Active Hydrocortisone (Perianal) 2.5 % External Cream (Anusol-HC)Indicat ions:Hemorrhoids, external without complications Apply to hemorrhoids twice per day as needed 28 g 1 07/29/2023 Active busPIRone HCl 5 MG Oral Tablet (Buspar) Take 1 Tablet by mouth every 4 hours as needed for Agitation or Anxiety. 30 Tablet 5 08/09/2023 Active hydrOXYzine HCl 25 MG Oral TabletIndications: Nausea,Anxiety Take 1-2 tabs every 6 hours as needed for anxiety or nausea. 30 Tablet 0 08/10/2023 Active HYDROcodone-Acetam inophen 5-325 MG Oral TabletIndications: Acute right-sided low back pain without sciatica Take 1 Tablet by mouth every 6 hours as needed for Pain, Mild or Pain, Severe. 20 Tablet 0 08/05/2023 4 Discontinu ed(Refill) documented as of this encounter (statuses as of 08/19/2023) Active Problems Problem Noted Date Diagnosed Date Chronic obstructive pulmonary disease 06/07/2023 Persistent atrial fibrillation 06/07/2023 Hypertensive heart disease without congestive he art failure 06/07/2023 COPD, group A, by GOLD 2017 classification 04/19 Overview: Per COPD GOLD Classification Hypertensive heart and chron ic kidney disease with chronic diastolic congestive heart failure 03/25/2023 Type 2 diabetes mellitus wit h chronic kidney disease on chronic dialysis, without long-term current use of insulin 12/02/2022 Right inguinal hernia 11/12/2022 Leakage of peritoneal dialys ate into subcutaneous tissue of abdominal wall 11/02/2022 ESRD on peritoneal dialysis 10/26/2022 Hyponatremia 08/21/2022 Hypokalemia 08/21/2022 Atrial fibrillation 08/21/2022 Hypotension 08/21/2022 Iron deficiency anemia 08/20/2022 Chronic kidney disease (CKD), stage V 08/20/2022 Enlargement of aortic root 05/14/2022 Postoperative hypothyroidism 05/14/2022 Pulmonary hypertension 05/14/2022 Rotator cuff syndrome of left shoulder 2 Chronic diastolic congestive heart failure 03/17 Cyst of pancreas 03/17/2022 Hyperparathyroidism, 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 CKD, patient preferred treat ment modality non-dialysis conservative care 09/19/2020 Kidney disease, chronic, stage IV (GFR 15-29 ml/ min) 08/27/2020 Type 2 diabetes mellitus wit h stage 4 chronic kidney disease, without long-term current use of insulin 06/30/2018 LBBB (left bundle branch block) 02/28/2018 History of thyroid cancer 02/23/2018 History of prostate cancer 02/23/2018 Renal osteodystrophy 02/10/2018 Essential hypertension with goal blood pressure less than 140/90 04/27/2016 Type 2 diabetes mellitus wit h hemoglobin A1c goal of less than 8.0% 04/17/2013 Overview: ICD-10 update of inactive term LVH (LEFT VENTRICULAR HYPERTROPHY) 07/26/2009 Panic disorder 07/26/2009 Anxiety state 07/26/2009 DYSLIPIDEMIA, GOAL LDL BELOW 100 04/24/2009 Overview: Per Lipid Taxonomy. Gouty arthropathy 02/21/2009 Overview: ICD-9 Code Update Hypothyroidism 11/09/2003 documented as of this encounter (statuses as of 08/19/2023) Resolved Problems Problem Noted Date Diagnosed Date Resolved Date Chronic obstructive pulmonary disease 03/17/2022 04/22/2023 Overview: Per COPD GOLD Classification Stage 3 chronic kidney disease 11/11/2018 04/27/2022 Hypertensive heart and kidne y disease with chronic diastolic congestive heart failure and stage 3 chronic kidney disease 06/30/201812/14 HTN, goal below 150/90 07/20/201702/23 Kidney disease, chronic, sta ge III (GFR 30-59 ml/min) 05/18/2016 07/19/2018 Overview: Per CKD protocol #1 Hypertensive heart disease w [facility] congestive heart failure 08/27/2014 08/27/2014 Hypertensive heart disease w [facility] congestive heart failure 08/27/2014 05/25/2019 Overview: duplicate Bradycardia, sinus 08/27/2014 9 CKD (chronic kidney disease) stage 2, GFR 60-89 ml/min 10/26/2012 09/04/2016 HTN, white coat 04/18/2012 07/10/2014 Hyponatremia 11/20/2011 11/11/2018 HTN, goal below 140/90 11/12/201004/27 HTN, goal below 130/80 06/05/200911/12 Overview: Per HTN Taxonomy. Type 2 diabetes mellitus wit h hemoglobin A1c goal of less than 7.0% 03/07/2009 04/17/2013 Overview: Per Diabetes Taxonomy. ICD-10 update of inactive term Malignant hypertension requi ring acute intensive management 11/17/2007 02/23/2018 Malignant neoplasm of prostate 11/15/2007 02/23/2018 ADVANCE DIRECTIVE INFORMATION 11/07/2004 02/23/2018 Overview: no living will, info given prior visit Visual disturbance 12/18/2002 8 HTN, goal below 140/90 06/06/200206/05 Overview: Per HTN Taxonomy. Dyslipidemia, goal to be determined 06/06/2002 04/24/2009 Overview: Per Lipid Taxonomy. Type 2 diabetes mellitus wit h hemoglobin A1c goal of less than 7.0% 06/06/2002 03/07/2009 Overview: Per Diabetes Taxonomy. ICD-10 update of inactive term MALIGN NEOPL THYROID 06/06/2002 018 Gouty arthropathy 06/06/2002 02/21/2009 Overview: ICD-9 Code Update ICD-10 update of inactive term documented as of this encounter (statuses as of 08/19/2023) Immunizations Name Administration Dates Next Due COVID-19 mRNA, LNP-s, No Pre serve, 2-Dose Series (Pfizer) 02/20/2021,01/30/2021 Pneumococcal Conjugate Vacc, 13 Valent (Prevnar) 01/26/2018 Pneumococcal Polysaccharide PPV23 (Pneumovax) 01/30/2006 Seasonal Influenza, PF, 6 M & above, IM , (FluLaval or Fluzone) 02/07/2020,02/03/2019,01/26/2018,02/0803/01/2018 Seasonal Influenza, Quadriva lent Hd (Fluzone Hd) 03/25/2023,03/17/2022,04/28/2021 Seasonal Influenza, Quadriva lent, No Preserve, IM 03/20/2016,02/14/2015 03/20/2017 Seasonal Influenza, Split, I IV3, With Preserve, Inj 01/06/2014,02/10/2013,01/23/2012,01/08,02/01/2010,02/07/2009,03/16/20,02/16/2007,03/12/2006 TD, Preservative Free 04/27/2008 documented as of this encounter Social History Tobacco Use Types Packs/Day Years Used Date Smoking Tobacco: Former Cigarettes 0.8 17 0 10/15/1961 - 05/10/1978 Smokeless Tobacco: Never Alcohol Use Standard Drinks/Week Comments No 0 (1 standard drink = 0.6 oz pur e alcohol) PHQ-2 Answer Date Recorded PHQ Adult Total Score 0 03/17/2022 Hunger Vital Sign Answer Date Recorded Within the past 12 months, y ou worried that your food would run out before you got the money to buy more. Never true 04/05/20 Within the past 12 months, t he food you bought just didn't last and you didn't have money to get more. Never true 04/05/2023 Sex and Gender Information Value Date Recorded Sex Assigned at Male 11/15/2019 2:37 PM EDT Gender Identity Male 11/15/2019 2:37 PM EDT Sexual Orientation Straight 03/29/2019 7: 51 AM EST Job Start Date Occupation Industry Not on file Not on file Not on file documented as of this encounter Functional Status Functional Status Response Date of Assess ment Are you deaf or do you have serious difficulty h earing? No 11/02/2022 Are you blind or do you have serious difficulty seeing, even when wearing glasses? No 11/02/2022 Do you have serious difficul ty walking or climbing stairs? (5 years old or older) Yes 11/03/2022 Do you have difficulty dress ing or bathing? (5 years old or older) Yes 11/02/2022 Because of a physical, menta l, or emotional condition, do you have difficulty doing errands alone such as visiting a doctor s office or shopping? (15 years old or older) No 11/03/19 Cognitive Status Response Date of Assessm ent Because of a physical, menta l, or emotional condition, do you have serious difficulty concentrating, remembering, or making decisions? (5 years old or older) No 11/02/2022 documented as of this encounter Miscellaneous Notes * Telephone Encounter - Darleen Wiseman, [facility] - 08/19/2023 8:16 AM EDTPending Prescriptions: Disp Refills HYDROcodone-Acetaminophen 5-325 MG Oral Ta*20 Tab*0 Sig: Take 1 Tablet by mouth every 6 hours as needed for Pain, Mild or Pain, Severe. * Telephone Encounter - Darleen Wiseman RP - 08/19/2023 8:16 AM EDT I have reviewed the patients controlled substance dispensing history in the Prescription Drug Monitoring Program in compliance with the [facility] regulations before prescribing a controlled substance. PDMP checked on 08/19/2023. Pending Prescriptions: Disp Refills HYDROcodone-Acetaminophen 5-325 MG Oral T*20 Tab*0 Sig: Take 1 Tablet by mouth every 6 hours as needed for Pain, Mild or Pain, Severe. Last Visit: 08/10/2023 (in office), Visit date not found (telemedicine) Next Visit: 09/07/2023 Date medication was last filled: 08/05/23 Date medication is due for refill: 08/09/23 Pharmacy: [id number] Is this request for a controlled substance? Yes and Urine Drug Screen Not completed Toxicology results: No results found. However, due to the size of the patient record, not all encounters were searched.Please check Results Review for a complete set of results. Please approve if appropriate. Thank You, Darleen Wiseman [facility] Clinical Pharmacist [facility] ([facility]) (formerly Telepharmacy) [phone] 08/19/2023, 8:16 AM documented in this encounter Plan of Treatment Upcoming Encounters Date Type Department Care Team (Late st Contact Info) Description 09/07/2023 2:20 PM EDT Office Visit Podiatry [facility] [address] [address] Magalie Parker DPM [address] [place] [address] 09/07/2023 5:40 PM EDT Office Visit [facility] [address] [facility] [place] [phone] Pramod Damian MD [address] [place] [address] Health Maintenance Due Date Last Done Comments Alpha-1 Antitrypsin 1959 Zoster Vaccines (1 of 2) 1991 DTaP,Tdap,and Td Vaccines (1 - Tdap) 04/28/2008 04/27/2008 Diabetic Eye Exam 03/29/2020 03/29/2019, , 07/27/2013, Additional history exists Diabetic Foot Exam 02/06/2021 02/07/2020, 0 07/04/2018, 06/30/2017, Additional history exists *COPD SEVERITY VERIFIED BY PFT 03/19/2022 COVID-19 Vaccine ( season) 2023 02/20/2021, 01/30/2021 Depression Screening 03/17/2023 03/17/2022 HbA1c 08/21/2023 02/19/2023, 10/09, 08/22/2022, Additional history exists O2 ASSESSMENT COMPLETED IN PAST YEAR FOR COPD 11/13/2023 11/12/2022 TSH 08/09/2024 08/10/2023, 03/12, 03/03/2023, Additional history exists Pneumococcal Vaccine: 65+ Years Completed 01/26/2018, 01/30/2006 Influenza Vaccine (FLU shot) Completed , 03/17/2022, 04/28/2021, Additional history exists Hepatitis B Completed 04/20/2023, 07/2022, 01/14/2023 GARDASIL-HPV IMMUNIZATION SERIES Aged Out No longer eligible based on patient's age to complete this topic MENINGOCOCCAL (MENACTRA/MENVEO) Aged Out No longer eligible based on patient's age to complete this topic documented as of this encounter Medical Devices Implanted Type Area Team Primary Care Physician Device Identifier Shelf Expiration Date Model / Serial / Lot Mesh Flat Sheet 1x4 [id number] - [id number] Implanted:Qty: 1 on 11/12/2022 by Willie Musa MD at OR [facility] Right: Groin CR BARD : DAVOL 09/04/2025 [id number] / / [id number] documented as of this encounter Visit Diagnoses Diagnosis Acute right-sided low back pain without sciatica documented in this encounter Advance Directives Latest Code Status on File Code Status Date Activated Date Inactivated Comments Full Code 11/12/2022 6:34 AM 11/12/2022 3:08 PM Question Answer Comments Discussion of Advance Directives occurred with: Not Discussed due to patient's condition Code Status History Code Status Date Activated Date Inactivated Comments No Code 11/02/2022 10:15 PM 11/06/2022 5:34 PM This order reflects the patients wishes and were consensually agreed upon. Question Answer Comments Discussion of Advance Directives occurred with: Patient Full Code 11/02/2022 9:42 PM 11/02/2022 10:14 PM This order reflects the patients wishes and were consensually agreed upon. Question Answer Comments Discussion of Advance Directives occurred with: Patient No Code 08/21/2022 4:52 PM 08/26/2022 5:08 PM This order reflects the patients wishes and were consensually agreed upon. Question Answer Comments Discussion of Advance Directives occurred with: Patient Full Code 08/21/2022 1:26 PM 08/21/2022 4:52 PM Question Answer Comments Discussion of Advance Directives occurred with: Not Discussed due to patient's condition Does the patient have a Living Will? No Does the patient have Health Care Power of Lockstitch Collar Setter? No Care Teams Pharm Spec Relationship Specialty Start Date End Date Pramod Damian MD [address] [place] [address] PCP - General 04/10/02 documented as of this encounter
--- OUTSIDE RECORDS SUMMARY | 2023-08-22 12:02 | External Medical Summary | Summary of Care ---
Author Name Unknown Organization [facility] Address [address] [place] [address] Phone [phone] Care Team Providers Care Insurance Processor Name Role Phone Pramod Damian MD Primary Care Provider [phone]- [phone] Encounter Details Date Type Department Care Team (Latest Contact Info) Description 08/16/2023 Medication Management [facility] [address] [place] [address] Meseret Almeida CPhT Referred for management of medication therapy* Allergies Active Allergy Reactions Criticality Noted Date [...] as of this encounter (statuses as of 08/16/2023) Medications Medication Sig Dispensed Refills Start Date End Date Status Blood Glucose Monitoring Suppl (STAR FESTIVALTOUCH VERIO) w/Device KIT Use up to 4 times a day 1 Kit 0 11/11/2017 Active STAR FESTIVALTOUCH DELJYOTSNA LANCETS FINE MISC Use four times daily 100 Each 11 05/12/2019 Active Renal Vitamin 0.8 MG Oral Tablet Take by mouth. 0 Active glipiZIDE ER 10 MG Oral Tablet Extended Release 24 Hour (glipiZIDE XL) Take 1 Tablet by mouth in the morning. 30 minutes before a meal.. 30 Tablet 5 10/08/2022 Active Additional Information Patient not taking.Reported on 07/26/2023 [employer] In Vitro Strip (Glucose Blood)Indications:T ype 2 diabetes mellitus with hemoglobin A1c goal of less than 8.0% ([facility]) USE UP TO FOUR TIMES A DAY 400 Strip 3 10/28/2022 Active glipiZIDE 10 MG Oral Tablet (Glucotrol) Take 1 Tablet by mouth in the morning and 1 Tablet before bedtime. 30 minutes before a meal. 180 Tablet 3 11/18/2022 Active Lactulose 10 GM/15ML Oral Solution (Constulose)Indicat ions:Other constipation TAKE 15 ML BY MOUTH TWICE A DAY NEEDED FOR SEVERE CONSTIPATION 237 mL 3 2023 Active Docusate Sodium 100 MG Oral Capsule Take 1 Capsule by mouth in the morning and 1 Capsule before bedtime. 0 Active Ventolin HFA 108 (90 Base) MCG/ACT Inhalation Aerosol SolutionIndications :LRTI (lower respiratory tract infection) Inhale 2 Puffs [...] 05/18/2023 Levothyroxine Sodium 150 MCG Oral Tablet (Levoxyl)Indication s:Acquired hypothyroidism,Elev ated TSH TAKE 1 TABLET BY MOUTH EVERY [...] Active Hydrocortisone (Perianal) 2.5 % External Cream (Anusol-HC)Indicati ons:Hemorrhoids, external without complications Apply to hemorrhoids twice per day as needed 28 g 1 07/29/2023 Active HYDROcodone-Acetami nophen 5-325 MG Oral TabletIndications:A cute right-sided low back pain without sciatica Take 1 Tablet by mouth every 6 hours as needed for Pain, Mild or Pain, Severe. 20 Tablet 0 08/05/2023 Active busPIRone HCl 5 MG Oral Tablet (Buspar) Take 1 Tablet by mouth every 4 hours as needed for Agitation or Anxiety. 30 Tablet 5 08/09/2023 Active hydrOXYzine HCl 25 MG Oral TabletIndications:N ausea,Anxiety Take 1-2 tabs every 6 hours as needed for anxiety or nausea. 30 Tablet 0 08/10/2023 Active documented as of this encounter (statuses as of 08/16/2023) Active Problems Problem Noted Date Diagnosed Date [...] 05/14/2022 Rotator cuff syndrome of left shoulder Chronic diastolic congestive heart failure 03/17 Cyst [...] as of this encounter (statuses as of 08/16/2023) Resolved Problems Problem Noted Date Diagnosed Date [...] CKD protocol #1 Hypertensive heart disease w [facility] congestive heart failure 08/27/2014 08/27/2014 Hypertensive heart disease w [facility] congestive heart failure 08/27/2014 05/25/2019 Overview: duplicate [...] as of this encounter (statuses as of 08/16/2023) Immunizations Name Administration Dates Next Due COVID-19 [...] Influenza, Split, I IV3, With Preserve, Inj 01/06/2014,02/10/2013,01/23/2012,01/08,02/01/2010,02/07/2009,03/16/20 08,02/16/2007,03/12/2006 TD, Preservative Free 04/27/2008 documented as of [...] money to buy more. Never true 04/05/20 23 Within the past 12 months, t he [...] No 11/02/2022 documented as of this encounter Progress Notes * Meseret Almeida CPhT - 08/16/2023 8:34 AM EDT Brady David is a 83 year old male. TMR Interventions TMR Patient Education - Safe Medication Use (Opioid Therapy): HYDROCO/APAP TAB 5-325MG Incomplete Medication Therapy Recommendations No medication therapy recommendations to display Completed Medication Therapy Recommendations Referred for management of medication therapy Current Medication: HYDROcodone-Acetaminophen 5-325 MG Oral Tablet Rationale: Patient Education Recommendation: Provide Education Note: Opioid therapy addressed during CMR. Assessment & Plan Indication, effectiveness, safety and convenience of his medications were reviewed today. The patient's medical conditions were assessed, evaluated, and deemed meeting goals of drug therapy, with thefollowing exceptions. Additional Notes: Opioid therapy discussed during CMR, pt denies issues, continue therapy without changes. Meseret Almeida CPhT 08/16/2023, 8:34 AM documented in this encounter Plan of Treatment Upcoming Encounters Date Type Department Care Team (Late st Contact Info) Description 09/07/2023 2:20 PM EDT Office Visit Podiatry [facility] [address] [place] [address] Magalie Parker DPM [address] [place] [address] 09/07/2023 5:40 PM EDT Office Visit [facility] [address] [place] [phone] Pramod Damian MD [address] [place], [place] [id number] Health Maintenance Due Date Last Done Comments [...] Depression Screening 03/17/2023 03/17/2022 HbA1c 08/21/2023 02/19/2023, 0610/2022, 08/22/2022, Additional history exists O2 ASSESSMENT COMPLETED [...] this encounter Medical Devices Implanted Type Area Supervisor Packing Room Device Identifier Shelf Expiration Date Model / Serial / Lot Mesh Flat Sheet 1x4 [id number] - [id number] Implanted:Qty: 1 on 11/12/2022 by Willie Musa MD at OR [facility] Right: Groin CR BARD : DAVOL 09/04/2025 [id number] / / [id number] documented as of this encounter Visit Diagnoses Diagnosis Referred for management of medication therapy- Primary Encounter for long-term (current) use of other medications documented in this encounter Advance Directives Latest [...] the patient have Health Care Power of Sewing Teacher? No Care Teams Insurance Processor Relationship Specialty Start Date End Date Pramod Damian MD [address] [place] [address] PCP - General 04/10/02 documented as of this encounter
--- OUTSIDE RECORDS SUMMARY | 2023-08-22 12:02 | External Medical Summary | Summary of Care ---
Author Name Unknown Organization [facility] Address [address] [place] [address] Phone [phone] Care Team Providers Care Automobile Damage Appraiser Name Role Phone Pramod Damian MD Primary Care Provider +1- [phone] Reason for Visit * Reason Comments Follow Up Back pain Encounter Details Date Type Department Care Team (Late st Contact Info) Description 07/23/2023 11:00 AM EDT Office Visit [facility] [address] [place] [address] Pramod Damian MD [address] [place] [address] Acute bilateral low back pain without sciatica*; Dyslipidemia, goal LDL below 100; Pulmonary hypertension (HCC) Allergies Active Allergy Reactions Criticality Noted Date [...] End Date Status Blood Glucose Monitoring Suppl (Monstrous VERBuzzSumo) w/Device KIT Use up to 4 times a day 1 Kit 0 11/11/2017 Active ZinwaveTOUCH DELICA LANCETS FINE MISC Use four times daily 100 Each 11 05/12/2019 Active Renal Vitamin 0.8 MG Oral Tablet Take by mouth. 0 Active glipiZIDE ER 10 MG Oral Tablet Extended Release 24 Hour (glipiZIDE XL) Take 1 Tablet by mouth in the morning. 30 minutes before a meal.. 30 Tablet 5 10/08/2022 Active Additional Information Patient not taking.Reported on 07/26/2023 [employer] In Vitro Strip (Glucose Blood)Indications :Type 2 diabetes mellitus with hemoglobin A1c goal of less than 8.0% ([facility]) USE UP TO FOUR TIMES A DAY 400 Strip 3 10/28/2022 Active glipiZIDE 10 MG Oral Tablet (Glucotrol) Take 1 Tablet by mouth in the morning and 1 Tablet before bedtime. 30 minutes before a meal. 180 Tablet 3 11/18/2022 Active Lactulose 10 GM/15ML Oral Solution (Constulose)Indic ations:Other constipation TAKE 15 ML BY MOUTH TWICE A DAY NEEDED FOR SEVERE CONSTIPATION 237 mL 3 2023 Active Docusate Sodium 100 MG Oral Capsule Take 1 Capsule by mouth in the morning and 1 Capsule before bedtime. 0 Active Ventolin HFA 108 (90 Base) MCG/ACT Inhalation Aerosol SolutionIndicatio ns:LRTI (lower respiratory tract infection) Inhale 2 Puffs [...] 05/18/2023 Levothyroxine Sodium 150 MCG Oral Tablet (Levoxyl)Indicati ons:Acquired hypothyroidism,El evated TSH TAKE 1 TABLET BY MOUTH EVERY MORNING AT LEAST 30 MINUTES PRIOR TO BREAKFAST OR OTHER MEDS. 90 Tablet 1 05/03/2023 Active Allopurinol 100 MG Oral Tablet (Zyloprim) Take 1 Tablet by mouth in the morning. 30 Tablet 5 07/09/2023 Active HYDROcodone-Aceta minophen 5-325 MG Oral TabletIndications :Acute right-sided low back pain without sciatica Take 1 Tablet by mouth every 6 hours as needed for Pain, Mild or Pain, Severe. 20 Tablet 0 07/21/2023 Discontinue d(Refill) documented as of this encounter (statuses as [...] CKD protocol #1 Hypertensive heart disease w ith congestive heart failure 08/27/2014 08/27/2014 [facility] 08/27/2014 05/25/2019 Overview: duplicate [...] 0 10/15/1961 - 05/10/1978 Smokeless Tobacco: Never Tobacco Cessation:Counseling Given: Not Answered Alcohol Use Standard Drinks/Week Comments No 0 [...] on file documented as of this encounter Last Filed Vital Signs Vital Sign Reading Time Taken Comments Blood Pressure 132/68 07/23/2023 11:44 AM EDT Pulse 74 07/23/2023 11:44 AM EDT Temperature 36.6 C (97.8 F) 07/23/2023 1 1:44 AM EDT Respiratory Rate 18 07/23/2023 11:4 4 AM EDT Oxygen Saturation - - Inhaled Oxygen Concentration - - Weight 88.8 kg (195 lb 12.8 oz) 024 11:44 AM EDT Height - - Body Mass Index 30.67 05/18/2023 2:40 PM EST documented in this encounter Functional Status Functional Status Response [...] as of this encounter Progress Notes * Pramod Damian MD - 07/23/2023 11:57 AM EDT Subjective: Brady David is a 83 year old male here today for Chief Complaint Patient presents with Follow Up Back pain Pt presents for eval of acute exacerbation of low back pain. Pt states that the pain feels similar to when he was admitted to the hospital 3 years ago. Please see hospital notes from that time for full details. There was no new injury. No new loss of control of bowel or bladder. No symptoms down the legs. No numbness, weakness of legs. He does get some relief with heat and some pressure against the area affected. He had called the office for pain medication and an office visit was suggested for further eval. Past Medical History: Diagnosis Date Anxiety BPH without obstruction/lower urinary tract symptoms CHF (congestive heart failure) (HCC) COPD (chronic obstructive pulmonary disease) (HCC) DM type 2, goal A1C below 8.0 04/17/2013 ESRD (end stage renal disease) (HCC) Gout HTN, goal to be determined Hypothyroidism thyroidectomy due to cancer LBBB (left bundle branch block) Lumbar stenosis Neuropathy Prostate cancer (HCC) Thyroid cancer (HCC) Past Surgical History: Procedure Laterality Date BIOPSY OF PROSTATE x2 CARPAL TUNNEL SURGERY 10/28/2011 release right wrist, [place] COLORECTAL CANCER SCREEN; NOT AT RISK 01/08/2007 DENTAL SURGERY PROCEDURE NEC EGD, FLEXIBLE, DIAGNOSTIC 08/29/2013 ESOPHAGOGASTRODUODENOSCOPY (EGD), FLEXIBLE, TRANSORAL, DIAGNOSTIC performed by Miquel Mendoza MD at ENDOSCOPY [facility] INFORMATION 1998 back surgery - "chipped bone away" INFORMATION 2009 Heart Cath INFORMATION Thyroidectomy. INSER ERICKA CAT,W/O PUMP;5YR/OLD Right 11/05/2022 INSERT TUNNELED CENTRAL VENOUS CATHETER AGE 5 OR OLDER performed by Bill Hansen DO at OR [facility] IR VENOUS ACCESS NON-MEDIPORT 09/03/2022 IR VENOUS ACCESS NON-MEDIPORT 10/22/2022 IR VENOUS ACCESS NON-MEDIPORT 12/24/2022 LAPAROSCOPY, W/ INSERT INTRAPERITONEAL CATH N/A 08/25/2022 LAPAROSCOPIC INSERTION INTRAPERITONEAL CANNULA OR CATHETER performed by Willie Musa MD at OR [facility] LUMBAR SPINE FUSION, POST INTERBODY 12/08/2012 Torreti PROSTATE CRYOABLATION 11/15/2008 CRYOSURGICAL ABLATION OF PROSTATE performed by MIKE CORBETT at [place] [facility] REMOVAL OF THYMUS GLAND 05/10/2000 REPAIR INITIAL INGUINAL HERNIA REDUCIBLE AGE 5 OR MORE Right 11/12/2022 REPAIR INITIAL INGUINAL HERNIA REDUCIBLE AGE 5 OR MORE performed by Willie Musa MD at OR [facility] REVISION OF ULNAR NERVE AT ELBOW Review of patient's allergies indicates: Allergen Reactions Doxazosin Mesylate Other (Please comment) Citalopram Clonidine Hydrochloride Nausea/vomiting Nightmares, nervousness Reaction depending on brand!!! Must be produced by Aureliano Luz Hctz [Hydrochlorothiazide] Hyponatremia Hydralazine Diarrhea, testicular pain Januvia [Sitagliptin] Other (Please comment) Restlessness Lisinopril Cough Losartan Other (Please comment) Other Allergy (See Comments) Pt states he had reactions to many other medications, but does not know their names. Was encouraged to provide us with names. Statins myalgias on zocor Current Outpatient Medications Medication Sig Dispense Refill Blood Glucose Monitoring Suppl (Pharmacopeia) w/Device KIT Use up to 4 times a day 1 Kit 0 Corrupt [employer] LANCETS FINE MISC Use four times daily 100 Each 11 Renal Vitamin 0.8 MG Oral Tablet Take by mouth. [employer] In Vitro Strip (Glucose Blood) USE UP TO FOUR TIMES A DAY 400 Strip 3 glipiZIDE 10 MG Oral Tablet (Glucotrol) Take 1 Tablet by mouth in the morning and 1 Tablet before bedtime. 30 minutes before a meal. 180 Tablet 3 Docusate Sodium 100 MG Oral Capsule Take 1 Capsule by mouth in the morning and 1 Capsule before bedtime. Potassium Chloride ER 20 MEQ Oral Tablet Extended Release Take 2 Tablets by mouth in the morning. 60 Tablet 3 Apixaban 2.5 MG Oral Tablet (Eliquis) Take 1 Tablet by mouth in the morning and 1 Tablet before bedtime. 60 Tablet 5 Torsemide 100 MG Oral Tablet (Demadex) Take 1 Tablet by mouth in the morning. 30 Tablet 5 Terazosin HCl 1 MG Oral Capsule (Hytrin) Take 1 Capsule by mouth at bedtime. 31 Capsule 5 Allopurinol 100 MG Oral Tablet (Zyloprim) Take 1 Tablet by mouth in the morning. 30 Tablet 5 glipiZIDE ER 10 MG Oral Tablet Extended Release 24 Hour (glipiZIDE XL) Take 1 Tablet by mouth in the morning. 30 minutes before a meal.. (Patient not taking: Reported on 07/26/2023) 30 Tablet 5 Lactulose 10 GM/15ML Oral Solution (Constulose) TAKE 15 ML BY MOUTH TWICE A DAY NEEDED FOR SEVERE CONSTIPATION 237 mL 3 Ventolin HFA 108 (90 Base) MCG/ACT Inhalation Aerosol Solution Inhale 2 Puffs by mouth every 4 hours as needed for Wheezing or Dyspnea. (Patient not taking: Reported on 05/18/2023) 1 g 0 Metoprolol Succinate ER 25 MG Oral Tablet Extended Release 24 Hour (toPROL XL) Take 0.5 Tablets by mouth daily. (Patient not taking: Reported on 05/18/2023) 30 Tablet 5 Cyclobenzaprine HCl 5 MG Oral Tablet (Flexeril) Take 1 Tablet by mouth in the morning and 1 Tablet at noon and 1 Tablet before bedtime. (Patient not taking: Reported on 05/18/2023) 90 Tablet 2 Gabapentin 100 MG Oral Capsule (Neurontin) Take 1 Capsule by mouth in the morning and 1 Capsule before bedtime. (Patient not taking: Reported on 05/18/2023) 60 Capsule 1 Levothyroxine Sodium 150 MCG Oral Tablet (Levoxyl) TAKE 1 TABLET BY MOUTH EVERY MORNING AT LEAST 30MINUTES PRIOR TO BREAKFAST OR OTHER MEDS. 90 Tablet 1 D3-1000 25 MCG (1000 UT) Oral Tablet (Cholecalciferol) Take 2 Tablets by mouth in the morning. Magnesium 250 MG Oral Tablet Take 1 Tablet by mouth in the morning. B Complex Vitamins Oral Capsule Take 1 Capsule by mouth in the morning. Hydrocortisone (Perianal) 2.5 % External Cream (Anusol-HC) Apply to hemorrhoids twice per day as needed 28 g 1 HYDROcodone-Acetaminophen 5-325 MG Oral Tablet Take 1 Tablet by mouth every 6 hours as needed for Pain, Mild or Pain, Severe. 20 Tablet 0 busPIRone HCl 5 MG Oral Tablet (Buspar) Take 1 Tablet by mouth every 4 hours as needed for Agitation or Anxiety. 30 Tablet 5 hydrOXYzine HCl 25 MG Oral Tablet Take 1-2 tabs every 6 hours as needed for anxiety or nausea. 30 Tablet 0 No current facility-administered medications for this visit. Objective: BP 132/68 | Pulse 74 | Temp 36.6 C (97.8 F) | Resp 18 | Wt 88.8 kg (195 lb 12.8 oz) | BMI 30.67 kg/m | BSA 2.05 m GEN: NAD CHEST: CTA B CV: RRR Back: no specific areas of severe point tenderness. Lower extremities NV intact. Assessment and Plan: Acute bilateral low back pain without sciatica (Primary) -no concerning findings on exam. He is getting some relief from meds prescribed. He will call for new or worsening symptoms. Dyslipidemia, goal LDL below 100 Pulmonary hypertension (HCC) -continue same treatments. 26 min with pt and chart review Pramod Damian MD documented in this encounter Nursing Notes * Mel Ardon LPN - 07/23/2023 11:52 AM EDT The patient has been properly identified by confirmation of name and date of . Chief Complaint Patient presents with Follow Up Back pain documented in this encounter Plan of Treatment Upcoming Encounters Date Type Department Care Team (Late st Contact Info) Description 09/07/2023 2:20 PM EDT Office Visit Podiatry [facility] [address] [place] [address] Magalie Parker DPM [address] [place] [address] 09/07/2023 5:40 PM EDT Office Visit [facility] [address] [place] [phone] Pramod Damian MD [address] [place] [address] Health Maintenance Due Date Last Done Comments [...] this encounter Medical Devices Implanted Type Area Manager Packaging Device Identifier Shelf Expiration Date Model / Serial / Lot Mesh Flat Sheet [id number] - [id number] Implanted:Qty: 1 on 11/12/2022 by Willie Musa MD at OR [facility] Right: Groin CR BARD : DAVOL 09/04/2025 [id number] / / [id number] documented as of this encounter Visit Diagnoses Diagnosis Acute bilateral low back pain without sciatica- Primary Dyslipidemia, goal LDL below 100 Other and unspecified hyperlipidemia Pulmonary hypertension (HCC) Other chronic pulmonary heart diseases documented in this encounter Advance Directives Latest [...] the patient have Health Care Power of Oil Pipeline Dispatcher? No Care Teams Automobile Damage Appraiser Relationship Specialty Start Date End Date Pramod Damian MD [address] [place] [address] PCP - General 04/10/02 documented as of this encounter
--- OUTSIDE RECORDS SUMMARY | 2023-08-22 12:03 | External Medical Summary ---
Author Name Unknown Address Unknown Organization K01:[facility] [place] [address] [place] [id number] Laboratory Report Ordering Provider Test Date Status MARGARET FOX 08/10/2023 14:05:18 Final Observation Date Value Abnormality Reference (Units ) Status MYCODE SPECIMEN-SST 08/10/2023 14:05:18 Freezing of extracted DNA, whole blood and/or serum. Final Performing Location LAB[facility]AT[facility] - [address] [place] [id number]
--- OUTSIDE RECORDS SUMMARY | 2023-08-22 12:03 | External Medical Summary | Summary of Care ---
Author Name Unknown Organization [facility] Address [address] [place] [address] Phone [phone] Care Team Providers Care Multi Disciplined Language Analyst Name Role Phone Pramod Damian MD Primary Care Provider +1- [phone] Reason for Visit * Reason Onset Date Comments Pre Cert/Prior Auth 07/27/2023 Encounter Details Date Type Department Care Team (Late st Contact Info) Description 07/27/[address] [facility] [address] [place] [address] Pramod Damian MD [address] [place] [address] Pre Cert/Prior Auth Allergies Active Allergy Reactions Criticality Noted Date [...] as of this encounter (statuses as of 08/04/2023) Medications Medication Sig Dispensed Refills Start Date End Date Status Blood Glucose Monitoring Suppl ([employer] w/Device KIT Use up to 4 times a day 1 Kit 0 11/11/2017 Active AuthenticlickTOUCH DELICA LANCETS FINE MISC Use four times daily 100 Each 11 05/12/2019 Active Renal Vitamin 0.8 MG Oral Tablet Take by mouth. 0 Active glipiZIDE ER 10 MG Oral Tablet Extended Release 24 Hour (glipiZIDE XL) Take 1 Tablet by mouth in the morning. 30 minutes before a meal.. 30 Tablet 5 10/08/2022 Active Additional Information Patient not taking.Reported on 07/26/2023 [employer] In Vitro Strip (Glucose Blood)Indications:T ype 2 diabetes mellitus with hemoglobin A1c goal of less than 8.0% ([facility]) USE UP TO FOUR TIMES A [...] the morning. 30 Tablet 5 07/09/2023 Active HYDROcodone-Acetami nophen 5-325 MG Oral TabletIndications:A cute right-sided low back pain without sciatica Take 1 Tablet by mouth every 6 hours as needed for Pain, Mild or Pain, Severe. 20 Tablet 0 07/21/2023 Active D3-1000 25 MCG (1000 UT) Oral Tablet (Cholecalciferol) Take 2 Tablets by mouth in the morning. 0 Active Magnesium 250 MG Oral Tablet Take 1 Tablet by mouth in the morning. 0 Active B Complex Vitamins Oral Capsule Take 1 Capsule by mouth in the morning. 0 Active busPIRone HCl 5 MG Oral Tablet (Buspar) Take 1 Tablet by mouth as needed. 0 Active documented as of this encounter (statuses as of 08/04/2023) Active Problems Problem Noted Date Diagnosed Date [...] as of this encounter (statuses as of 08/04/2023) Resolved Problems Problem Noted Date Diagnosed Date [...] failure 08/27/2014 08/27/2014 Hypertensive heart disease w ithout congestive heart failure 08/27/2014 05/25/2019 Overview: duplicate [...] as of this encounter (statuses as of 08/04/2023) Immunizations Name Administration Dates Next Due COVID-19 mRNA, LNP-s, No Pre serve, 2-Dose Series ([employer]) 02/20/2021,01/30/2021 Pneumococcal Conjugate Vacc, 13 Valent (Prevnar) [...] encounter Miscellaneous Notes * Telephone Encounter - Lynn Antony OSA - 07/27/2023 12:23 PM EDT I received a RAVIN for Prior Auth. I put the request in Dr. Barbara cunha documented in this encounter Plan of Treatment Upcoming Encounters Date Type Department Care Team (Late st Contact Info) Description 09/07/2023 2:20 PM EDT Office Visit Podiatry [facility] [address] [place] [address] Magalie Parker DPM [address] [place] [address] 09/07/2023 5:40 PM EDT Office [facility] [address] [facility] [phone] Pramod Damian MD [address] [place] [address] Health Maintenance Due Date Last Done Comments [...] PAST YEAR FOR COPD 11/13/2023 11/12/2022 TSH 04/08/2024 04/08/2023, 02/08, 02/19/2023, Additional history exists Pneumococcal Vaccine: 65+ Years [...] this encounter Medical Devices Implanted Type Area Structural Manager Device Identifier Shelf Expiration Date Model / Serial / Lot Mesh Flat Sheet 1x4 [id number] - [id number] Implanted:Qty: 1 on 11/12/2022 by Willie Musa MD at OR [facility] Right: Anila GALICIA BARD : DAVOL 09/04/2025 [id number] / / [id number] documented as of this encounter Advance Directives Latest Code Status [...] the patient have Health Care Power of Typo Machine Operator? No Care Teams Multi Disciplined Language Analyst Relationship Specialty Start Date End Date Pramod Damian MD [address] [place] [address] PCP - General 04/10/02 documented as of this encounter
--- OUTSIDE RECORDS SUMMARY | 2023-08-22 12:03 | External Medical Summary | Summary of Care ---
Author Name Unknown Organization [facility] Address [address] [place] [address] Phone [phone] Care Team Providers Care Waterway Traffic Checker Name Role Phone Pramod Damian MD Primary Care Provider +1- [phone] Reason for Visit * Reason Comments Outpatient Testing Encounter Details Date Type Department Care Team (Late st Contact Info) Description 08/10/2023 2:20 PM EDT Laboratory Laboratory, [place] [address] [place] [address] [place] [address] [place] [address] Box Other*[id number]; Acquired hypothyroidism Allergies Active Allergy Reactions Criticality Noted Date [...] as of this encounter (statuses as of 08/10/2023) Medications Medication Sig Dispensed Refills Start Date End Date Status Blood Glucose Monitoring Suppl ([employer]) w/Device KIT Use up to 4 times a day 1 Kit 0 11/11/2017 Active WorkstirTOUCH DELICA LANCETS FINE MISC Use four times daily 100 Each 11 05/12/2019 Active Renal Vitamin 0.8 MG Oral Tablet Take by mouth. 0 Active glipiZIDE ER 10 MG Oral Tablet Extended Release 24 Hour (glipiZIDE XL) Take 1 Tablet by mouth in the morning. 30 minutes before a meal.. 30 Tablet 5 10/08/2022 Active Additional Information Patient not taking.Reported on 07/26/2023 [employer] In Vitro Strip (Glucose Blood)Indications:T ype 2 diabetes mellitus with hemoglobin A1c goal of less than 8.0% ([facility]) USE UP TO FOUR TIMES A DAY [...] as of this encounter (statuses as of 08/10/2023) Active Problems Problem Noted Date Diagnosed Date [...] as of this encounter (statuses as of 08/10/2023) Resolved Problems Problem Noted Date Diagnosed Date [...] CKD protocol #1 Hypertensive heart disease w [facility] congestive heart failure 08/27/2014 08/27/2014 Hypertensive heart disease w [facility] congestive heart failure 08/27/2014 05/25/2019 Overview: [...] as of this encounter (statuses as of 08/10/2023) Immunizations Name Administration Dates Next Due COVID-19 [...] No 11/02/2022 documented as of this encounter Plan of Treatment Upcoming Encounters Date Type Department Care Team (Late st Contact Info) Description 08/11/2023 2:15 PM EDT Imaging Radiology, [place] [address] [place] [address] 09/07/2023 2:20 PM EDT Office Visit Podiatry [facility] [address] [place] [address] Magalie Parker, JULY [address] [place] [address] 09/07/2023 5:40 PM EDT Office Visit [facility] [address] [place] [phone] Pramod Damian MD [address] [place] [address] Pending Results Name Type Priority Associated Diagnoses Date /Time MYCODE SUBSEQUENT ADULT Lab Routine MyCode Research Other*[id number] 08/10/2023 2:05 PM EDT TSH WITH FREE T4 IF INDICATED Lab Routine Acquired hypothyroidism 08/10/2023 2:05 PM EDT MYCODE SST1 Lab Routine MyCode Research Other*[id number] 08/10/2023 2:05 PM EDT MYCODE SST2 Lab Routine MyCode Research Other*[id number] 08/10/2023 2:05 PM EDT Health Maintenance Due Date Last Done Comments [...] FOR COPD 11/13/2023 11/12/2022 TSH 04/08/2024 04/08/2023, 102 09/2022, 02/19/2023, Additional history exists Pneumococcal Vaccine: 65+ [...] this encounter Medical Devices Implanted Type Area Precision Lens Polisher Device Identifier Shelf Expiration Date Model / Serial / Lot Mesh Flat Sheet 1x4 [id number] - [id number] Implanted:Qty: 1 on 11/12/2022 by Willie Musa MD at OR [facility] Right: Groin CR BARD : DAVOL 09/04/2025 [id number] / / [id number] documented as of this encounter Visit Diagnoses Diagnosis MyCode Research Other*[id number] Acquired hypothyroidism Unspecified hypothyroidism documented in this encounter Advance Directives Latest [...] the patient have Health Care Power of Airplane Pilot Photogrammetry? No Care Teams Waterway Traffic Checker Relationship Specialty Start Date End Date Pramod Damian MD [address] [facility] [place] [address] PCP - General 04/10/02 documented as of this encounter
--- OUTSIDE RECORDS SUMMARY | 2023-08-22 12:03 | External Medical Summary | Summary of Care ---
Author Name Unknown Organization [facility] Address [address] [place] [address] Phone [phone] Care Team Providers Care Steam Cleaning Machine Operator Name Role Phone Pramod Damian MD Primary Care Provider +1- [phone] Reason for Visit * Reason Onset Date Comments Pre Cert/Prior Auth 07/27/2023 Encounter Details Date Type Department Care Team (Late st Contact Info) Description 07/27/2023 Telephone [facility] [address] [place] [address] Pramod Damian MD [address] [place] [address] Pre Cert/Prior Auth Allergies Active [...] as of this encounter (statuses as of 07/27/2023) Medications Medication Sig Dispensed Refills Start Date End Date Status Blood Glucose Monitoring Suppl (Fuze) w/Device KIT Use up to 4 times a day 1 Kit 0 11/11/2017 Active ICB InternationalTOUCH DELICA LANCETS FINE MISC Use four times daily 100 Each 11 05/12/2019 Active Renal Vitamin 0.8 MG Oral Tablet Take by mouth. 0 Active glipiZIDE ER 10 MG Oral Tablet Extended Release 24 Hour (glipiZIDE XL) Take 1 Tablet by mouth in the morning. 30 minutes before a meal.. 30 Tablet 5 10/08/2022 Active Additional Information Patient not taking.Reported on 07/26/2023 [employer] In Vitro Strip (Glucose Blood)Indications:T ype 2 diabetes mellitus with hemoglobin A1c goal of less than 8.0% ([facility]) USE UP TO FOUR TIMES A DAY [...] as of this encounter (statuses as of 07/27/2023) Active Problems Problem Noted Date Diagnosed Date [...] as of this encounter (statuses as of 07/27/2023) Resolved Problems Problem Noted Date Diagnosed Date [...] as of this encounter (statuses as of 07/27/2023) Immunizations Name Administration Dates Next Due COVID-19 mRNA, LNP-s, No Pre serve, 2-Dose Series ([employer]) 02/20/2021,01/30/2021 Pneumococcal Conjugate Vacc, 13 Valent (Prevnar) [...] 09/07/2023 2:20 PM EDT Office Visit Podiatry [facility] [address] [place] [address] Magalie Parker DPM [address] [place] [address] 09/07/2023 5:40 PM EDT [facility] [address] [facility] [phone] Pramod Damian MD [address] [facility] [place] [address] Health Maintenance Due Date Last Done Comments [...] encounter Medical Devices Implanted Type Area Supervisor Solder Making Device Identifier Shelf Expiration Date Model / Serial / Lot Mesh Flat Sheet 1x4 [id number] - [id number] Implanted:Qty: 1 on 11/12/2022 by Willie Musa MD at OR [facility] Right: Anila GALICIA BARD : DAVOL 09/04/2025 [id number] / / [id number] documented as of this encounter Advance Directives [...] the patient have Health Care Power of Assistant Tennis Coach? No Care Teams Steam Cleaning Machine Operator Relationship Specialty Start Date End Date Pramod Damian MD [address] [place] [address] PCP - General 04/10/02 documented as of this encounter
--- OUTSIDE RECORDS SUMMARY | 2023-08-22 12:03 | External Medical Summary ---
Author Name Unknown Address Unknown Organization K01:[facility] [place] [address] [place] [id number] Laboratory Report Ordering Provider Test Date Status MARGARET FOX 08/10/2023 14:05:18 Final Observation Date Value Abnormality Reference (Units ) Status MYCODE SPECIMEN-SST 08/10/2023 14:05:18 Freezing of extracted DNA, whole blood and/or serum. Final Performing Location LABORATORY C - [address] [place] [id number]
--- OUTSIDE RECORDS SUMMARY | 2023-08-22 12:03 | External Medical Summary | Summary of Care ---
Author Name Unknown Organization [facility] Address [address] [place] [address] Phone [phone] Care Team Providers Care Utility Tractor Operator Name Role Phone Pramod Damian MD Primary Care Provider [phone]- [phone] Encounter Details Date Type Department Care Team (Late st Contact Info) Description 07/26/2023 Telephone [facility] [address] [place] [address] Pramod Damian MD [address] [place] [address] Allergies Active Allergy Reactions Criticality Noted Date [...] as of this encounter (statuses as of 07/29/2023) Medications Medication Sig Dispensed Refills Start Date End Date Status Blood Glucose Monitoring Suppl (TinderBox) w/Device KIT Use up to 4 times a day 1 Kit 0 11/11/2017 Active [employer] InternationalTOUCH DELICA LANCETS FINE MISC Use four times daily 100 Each 11 05/12/2019 Active Renal Vitamin 0.8 MG Oral Tablet Take by mouth. 0 Active glipiZIDE ER 10 MG Oral Tablet Extended Release 24 Hour (glipiZIDE XL) Take 1 Tablet by mouth in the morning. 30 minutes before a meal.. 30 Tablet 5 10/08/2022 Active Additional Information Patient not taking.Reported on 07/26/2023 Guguchu In Vitro Strip (Glucose Blood)Indications:T ype 2 [...] Tablet by mouth as needed. 0 Active Hydrocortisone (Perianal) 2.5 % External Cream (Anusol-HC)Indicati ons:Hemorrhoids, external without complications Apply to hemorrhoids twice per day as needed 28 g 1 07/29/2023 Active documented as of this encounter (statuses as of 07/29/2023) Active Problems Problem Noted Date Diagnosed Date [...] as of this encounter (statuses as of 07/29/2023) Resolved Problems Problem Noted Date Diagnosed Date [...] CKD protocol #1 Hypertensive heart disease w [facility] congestive heart failure 08/27/2014 08/27/2014 Hypertensive heart disease w [facility] congestive heart failure 08/27/2014 05/25/2019 Overview: [...] as of this encounter (statuses as of 07/29/2023) Immunizations Name Administration Dates Next Due COVID-19 mRNA, LNP-s, No Pre serve, 2-Dose Series (Projektino) 02/20/2021,01/30/2021 Pneumococcal Conjugate Vacc, 13 Valent (Prevnar) [...] encounter Miscellaneous Notes * Telephone Encounter - Pramod Damian MD - 07/29/2023 1:20 PM EDT Sent erx * Telephone Encounter - Erin Finley CCMA - 07/29/2023 11:29 AM EDT The patient is aware, and verbalizes an understanding. Pt states that he will like to try the topical cream and it can be sent to [facility] pharmacy. * Telephone Encounter - Parmod Damian MD - 07/27/2023 9:33 PM EDT Please contact pt and notify that I would encourage him to restart he eliquis as soon as he feels the bleeding is better. If the hemorrhoids are causing pain, does he want a topical cream for them? * Telephone Encounter - Holly Hough LPN - 07/26/2023 12:25 PM EDT [facility] call [facility], she was doing a med review with patient, pt told her that he isn't taking his Eliquis due to hemorrhoids bleeding, pharmacist wanted PCP to be aware and provide further instructions to pt. documented in this encounter Plan of Treatment Upcoming Encounters Date Type Department Care Team (Late st Contact Info) Description 09/07/2023 2:20 PM EDT Office Visit Podiatry [facility] [address] [facility] [place] [address] Magalie Parker DPM [address] [address] 09/07/2023 5:40 PM EDT Office Visit [facility] [address] [place] [phone] Pramod Damian MD [address] [place] [address] Health Maintenance Due Date Last Done Comments [...] this encounter Medical Devices Implanted Type Area Fibre Technologist Device Identifier Shelf Expiration Date Model / Serial / Lot Mesh Flat Sheet [id number] - [id number] Implanted:Qty: 1 on 11/12/2022 by Willie Musa MD at [facility] Right: Groin CR BARD : DAVOL 09/04/2025 [id number] / / [id number] documented as of this encounter Visit Diagnoses Diagnosis Hemorrhoids, external without complications- Primary External hemorrhoids without mention of complication documented in this encounter Advance Directives Latest [...] the patient have Health Care Power of Emergency Room Orderly? No Care Teams Utility Tractor Operator Relationship Specialty Start Date End Date Pramod Damian MD [address] [place] [address] PCP - General 04/10/02 documented as of this encounter
--- OUTSIDE RECORDS SUMMARY | 2023-08-22 12:03 | External Medical Summary | Summary of Care ---
Author Name Unknown Organization [facility] Address [address] [place] [address] Phone [phone] Care Team Providers Care Orthotic Fitter Name Role Phone Pramod Damian MD Primary Care Provider +1- [phone] Reason for Visit * Reason Comments Acute Vomiting and stomach pains with R sided flank painThinks he has gallbladder issues and is having back pains Encounter Details Date Type Department Care Team (Latest Contact Info) Description 08/10/2023 1:20 PM EDT Office Visit [facility] [address] [place] [address] Diane Jacobson MD [address] [place] [address] Nausea*; Anxiety; RUQ pain; Acquired hypothyroidism Allergies Active Allergy Reactions Criticality [...] End Date Status Blood Glucose Monitoring Suppl (Pomelo) w/Device KIT Use up to 4 times a day 1 Kit 0 11/11/2017 Active Dragon Security ServicesTOUCH DELICA LANCETS FINE MISC Use four times daily 100 Each 11 05/12/2019 Active Renal Vitamin 0.8 MG Oral Tablet Take by mouth. 0 Active glipiZIDE ER 10 MG Oral Tablet Extended Release 24 Hour (glipiZIDE XL) Take 1 Tablet by mouth in the morning. 30 minutes before a meal.. 30 Tablet 5 10/08/2022 Active Additional Information Patient not taking.Reported on 07/26/2023 Hotel[employer] In Vitro Strip (Glucose Blood)Indications:T ype 2 diabetes mellitus with hemoglobin A1c goal of less than 8.0% ([facility]) USE UP TO FOUR TIMES A DAY [...] CKD protocol #1 Hypertensive heart disease w [facility] congestive heart failure 08/27/2014 08/27/2014 Hypertensive heart disease w [facility] congestive heart failure 08/27/2014 05/25/2019 Overview: [...] Sign Reading Time Taken Comments Blood Pressure 100/64 08/10/2023 1:00 PM EDT Pulse 78 08/10/2023 1:00 PM EDT Temperature 36.5 C (97.7 F) 08/10/2023 1:00 PM ED T Respiratory Rate 18 08/10/2023 1:00 PM EDT Oxygen Saturation 95% 08/10/2023 1:00 PM EDT Inhaled Oxygen Concentration - - Weight 87.1 kg (192 lb) 08/10/2023 1:00 PM EDT Height 170.2 cm (5' 7") 08/10/2023 1:00 PM EDT Body Mass Index 30.07 08/10/2023 1:00 PM EDT documented in this encounter Functional Status Functional [...] (15 years old or older) No 11/03/19 23 Cognitive Status Response Date of Assessm ent Because of a physical, menta l, or emotional condition, do you have serious difficulty concentrating, remembering, or making decisions? (5 years old or older) No 11/02/2022 documented as of this encounter Progress Notes * Diane Jacobson MD - 08/10/2023 1:37 PM EDT ASSESSMENT / PLAN: Brady David is a 83 year old male with PMHx T2DM / hypothyroidism / anxiety and severe claustrophobia / PAF / LBBB / ESRD on PD - here for acute Check-out note: US abdomen limited order - can he do today? Nausea (Primary) - hydrOXYzine HCl 25 MG Oral Tablet; Take 1-2 tabs every 6 hours as needed for anxiety or nausea. Anxiety - hydrOXYzine HCl 25 MG Oral Tablet; Take 1-2 tabs every 6 hours as needed for anxiety or nausea. RUQ pain - US ABDOMEN LIMITED; Future; Expected date: 08/10/2023 Acquired hypothyroidism - TSH WITH FREE T4 IF INDICATED; Future; Expected date: 08/10/2023 Check-out note: US abdomen limited order - can he do today? If needed, prefers contact by: Ok to leave message on phone: SUBJECTIVE: Nursing Notes: Mel Ardon LPN 08/10/23 1311 Sign at exiting of workspace The patient has been properly identified by confirmation of name and date of . Chief Complaint Patient presents with Acute Vomiting and stomach pains with R sided flank pain Thinks he has gallbladder issues and is having back pains HPI: Brady David is a 83 year old male. Here for recheck. About 2 weeks ago had some vomiting after eating Then more recently had a similar episode, but not after eating, and felt nausea and pain in R back/flank area Did get return of back pain - PCP sent him oxycodone - pain has mostly improved Ate this morning around 6am - toast, butter, fried egg - no pain or nausea with that Has lost some weight maybe 5 lbs since this started Does take colace and lactulose regularly No dysuria, no hematuria Reviewed sources 1- Patient Active Problem List Diagnosis Code Hypothyroidism E03.9 Gouty arthropathy M10.9 DYSLIPIDEMIA, GOAL LDL BELOW 100 E78.5 LVH (LEFT VENTRICULAR HYPERTROPHY) I51.7 Panic disorder F41.0 Anxiety state F41.1 Type 2 diabetes mellitus with hemoglobin A1c goal of less than 8.0% ([facility]) E11.9 Essential hypertension with goal blood pressure less than 140/90 I10 Renal osteodystrophy N25.0 History of thyroid cancer Z85.850 History of prostate cancer Z85.46 LBBB (left bundle branch block) I44.7 Type 2 diabetes mellitus with stage 4 chronic kidney disease, without long-term current use of insulin ([facility]) E11.22, N18.4 Kidney disease, chronic, stage IV (GFR 15-29 ml/min) ([facility]) N18.4 CKD, patient preferred treatment modality non-dialysis conservative care N18.9 Hyperparathyroidism, secondary renal ([facility]) N25.81 Chronic diastolic congestive heart failure ([facility]) I50.32 Cyst of pancreas K86.2 Rotator cuff syndrome of left shoulder M75.102 Enlargement of aortic root ([facility]) I77.89 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 Pulmonary hypertension ([facility]) I27.20 Iron deficiency anemia D50.9 Chronic kidney disease (CKD), stage V ([facility]) N18.5 Hyponatremia E87.1 Hypokalemia E87.6 Atrial fibrillation ([facility]) I48.91 Hypotension I95.9 ESRD on peritoneal dialysis ([facility]) N18.6, Z99.2 Leakage of peritoneal dialysate into subcutaneous tissue of abdominal wall ([facility]) T85.631A Right inguinal hernia K40.90 Type 2 diabetes mellitus with chronic kidney disease on chronic dialysis, without long-term currentuse of insulin ([facility]) E11.22, N18.6, Z99.2 Hypertensive heart and chronic kidney disease with chronic diastolic congestive heart failure ([facility])I13.0, I50.32 COPD, group A, by GOLD 2017 classification ([facility]) J44.9 Chronic obstructive pulmonary disease (HCC) J44.9 Persistent atrial fibrillation (HCC) I48.19 Hypertensive heart disease without congestive heart failure I11.9 Current Outpatient Medications Medication Sig Dispense Refill Blood Glucose Monitoring Suppl (Pomelo) w/Device KIT Use up to 4 times a day 1 Kit 0 PowerCloud SystemsUCH DELEGEN LANCETS FINE MISC Use four times daily 100 Each 11 Renal Vitamin 0.8 MG Oral Tablet Take by mouth. [employer] In Vitro Strip (Glucose Blood) USE UP TO FOUR TIMES A DAY 400 Strip 3 glipiZIDE 10 MG Oral Tablet (Glucotrol) Take 1 Tablet by mouth in the morning and 1 Tablet before bedtime. 30 minutes before a meal. 180 Tablet 3 Lactulose 10 GM/15ML Oral Solution (Constulose) TAKE 15 ML BY MOUTH TWICE A DAY NEEDED FOR SEVERE CONSTIPATION 237 mL 3 Docusate Sodium 100 MG Oral Capsule [...] by mouth at bedtime. 31 Capsule 5 Levothyroxine Sodium 150 MCG Oral Tablet (Levoxyl) TAKE 1 TABLET BY MOUTH EVERY MORNING AT LEAST 30MINUTES PRIOR TO BREAKFAST OR OTHER MEDS. 90 Tablet 1 Allopurinol 100 MG Oral Tablet (Zyloprim) Take 1 Tablet by mouth in the morning. 30 Tablet 5 D3-1000 25 MCG (1000 UT) Oral Tablet [...] for anxiety or nausea. 30 Tablet 0 glipiZIDE ER 10 MG Oral Tablet Extended Release 24 Hour (glipiZIDE XL) Take 1 Tablet by mouth in the morning. 30 minutes before a meal.. (Patient not taking: Reported on 07/26/2023) 30 Tablet 5 Ventolin HFA 108 (90 Base) MCG/ACT Inhalation [...] taking: Reported on 05/18/2023) 60 Capsule 1 No current facility-administered medications for this visit. OBJECTIVE: BP 100/64 | Pulse 78 | Temp 36.5 C (97.7 F) | Resp 18 | Ht 1.702 m (5' 7") | Wt 87.1 kg (192 lb) | SpO2 95% | BMI 30.07 kg/m | BSA 2.03 m Vitals reviewed and is normotensive / afebrile / and not tachycardic General: No acute distress. Neuro: Alert Pleasant & interactive. Respiratory: Good inspiratory effort, no labored breathing. CTAB CV: RRR no M R G Abd: soft nontender normoactive bs no hsm HEENT: Conjunctivae appear clear. No swelling noted face or lips. Skin: No rash visible on exposed skin areas, normal coloration & appears dry. Psych: Normal affect. Fluent speech. Diane Jacobson MD [address] [address] There are no Patient Instructions on file for this visit. documented in this encounter Nursing Notes * Mel Ardon LPN - 08/10/2023 1:11 PM EDT The patient has been properly identified by confirmation of name and date of . Chief Complaint Patient presents with Acute Vomiting and stomach pains with R sided flank pain Thinks he has gallbladder issues and is having back pains documented in this encounter Plan of Treatment Upcoming Encounters Date Type Department Care Team (Late st Contact Info) Description 08/11/2023 2:15 PM EDT Imaging Radiology, [place] [address] [place] [address] 09/07/2023 2:20 PM EDT Office Visit Podiatry [facility] [address] [facility] [place] [address] Magalie Parker DPM [address] [facility] [place] [address] 09/07/2023 5:40 PM EDT Office Visit [facility], [place] [address] [place] [address] Pramod Damian MD [address] [place] [address] Pending Results Name Type Priority Associated Diagnoses Date /Time TSH WITH FREE T4 IF INDICATED Lab Routine Acquired hypothyroidism 08/10/2023 2:05 PM EDT Scheduled Orders Name Type Priority Associated Diagnoses Orde r Schedule US ABDOMEN LIMITED Medical Imaging Routine RUQ pain Expected: 08/10/2023 (Approximate), Expires: 09/08/2024 TSH WITH FREE T4 IF INDICATED Lab Routine Acquired hypothyroidism Expected: 08/10/2023 (Approximate), Expires: 08/09/2024 Health Maintenance Due Date Last Done Comments [...] this encounter Medical Devices Implanted Type Area Metal Rivet Machine Operator Device Identifier Shelf Expiration Date Model / Serial / Lot Mesh Flat Sheet 1x4 [id number] - [id number] Implanted:Qty: 1 on 11/12/2022 by Willie Musa MD at [facility] Right: Groin CR BARD : DAVOL 09/04/2025 [id number] / / [id number] documented as of this encounter Visit Diagnoses Diagnosis Nausea- Primary Nausea alone Anxiety Anxiety state, unspecified RUQ pain Abdominal pain, right upper quadrant Acquired hypothyroidism Unspecified hypothyroidism documented in this [...] the patient have Health Care Power of Digester Hand? No Care Teams Orthotic Fitter Relationship Specialty Start Date End Date Pramod Damian MD [address] [place] [address] PCP - General 04/10/02 documented as of this encounter
--- OUTSIDE RECORDS SUMMARY | 2023-08-22 12:03 | External Medical Summary ---
Author Name Unknown Address Unknown Organization K01:LAB[facility]ATORY [facility] - [address] [place] [id number] Laboratory Report Ordering Provider Test Date Status MARK MEDINA 08/10/2023 14:05:18 Final Observation Date Value Abnormality Reference (Units ) Status T4, Free 08/10/2023 14:05:18 1.0 0.9-1.7 (n g/dL) Final Performing Location [facility] - [address] [id number]
--- OUTSIDE RECORDS SUMMARY | 2023-08-22 12:03 | External Medical Summary | Summary of Care ---
Author Name Unknown Organization [facility] Address [address] [place] [facility] [place] [address] Phone [phone] Care Team Providers Care Senior Case Manager Name Role Phone Pramod Damian MD Primary Care Provider [phone]- [phone] Encounter Details Date Type Department Care Team (Late st Contact Info) Description 07/26/2023 12:00 PM EDT Medication Management Yamini Herron [facility] [address] [place] [address] Pharmacist, Yamini Herron [facility] [address] [place] [address] Medication management* Allergies Active Allergy Reactions Criticality Noted Date [...] as of this encounter (statuses as of 07/26/2023) Medications Medication Sig Dispensed Refills Start Date End Date Status Blood Glucose Monitoring Suppl (Hive Media) w/Device KIT Use up to 4 times a day 1 Kit 0 11/11/2017 Active EVaultTOUCH DELICA LANCETS FINE MISC Use four times daily 100 Each 11 05/12/2019 Active Renal Vitamin 0.8 MG Oral Tablet Take by mouth. 0 Active glipiZIDE ER 10 MG Oral Tablet Extended Release 24 Hour (glipiZIDE XL) Take 1 Tablet by mouth in the morning. 30 minutes before a meal.. 30 Tablet 5 10/08/2022 Active Additional Information Patient not taking.Reported on 07/26/2023 [employer] In Vitro Strip (Glucose Blood)Indications:T ype 2 [...] as of this encounter (statuses as of 07/26/2023) Active Problems Problem Noted Date Diagnosed Date [...] as of this encounter (statuses as of 07/26/2023) Resolved Problems Problem Noted Date Diagnosed Date [...] CKD protocol #1 Hypertensive heart disease w [facility] congestive heart failure 08/27/2014 08/27/2014 Hypertensive heart disease w [facility] congestive heart failure 08/27/2014 05/25/2019 Overview: [...] as of this encounter (statuses as of 07/26/2023) Immunizations Name Administration Dates Next Due COVID-19 [...] as of this encounter Progress Notes * Kell Bernstein, [facility] - 07/26/2023 3:52 PM EDT Brady David is a 83 year old male. Objective: Review of patient's allergies indicates: Allergen Reactions Doxazosin Mesylate Other (Please comment) Citalopram Clonidine Hydrochloride Nausea/vomiting Nightmares, nervousness Reaction depending on brand!!! Must be produced by Actavis Sukh Hctz [Hydrochlorothiazide] Hyponatremia Hydralazine Diarrhea, testicular pain Januvia [Sitagliptin] Other (Please comment) Restlessness Lisinopril Cough Losartan Other (Please comment) Other Allergy (See Comments) Pt states he had reactions to many other medications, but does not know their names. Was encouraged to provide us with names. Statins myalgias on zocor Current Outpatient Medications - WARNING: List may be incomplete due to filtering Medication Sig Dispense Refill B Complex Vitamins Oral Capsule Take 1 Capsule by mouth in the morning. busPIRone HCl 5 MG Oral Tablet (Buspar) Take 1 Tablet by mouth as needed. D3-1000 25 MCG (1000 UT) Oral Tablet (Cholecalciferol) Take 2 Tablets by mouth in the morning. Magnesium 250 MG Oral Tablet Take 1 Tablet by mouth in the morning. HYDROcodone-Acetaminophen 5-325 MG Oral Tablet Take 1 Tablet by mouth every 6 hours as needed for Pain, Mild or Pain, Severe. 20 Tablet 0 Allopurinol 100 MG Oral Tablet (Zyloprim) Take 1 Tablet by mouth in the morning. 30 Tablet 5 Levothyroxine Sodium 150 MCG Oral Tablet (Levoxyl) TAKE 1 TABLET BY MOUTH EVERY MORNING AT LEAST 30MINUTES PRIOR TO BREAKFAST OR OTHER MEDS. 90 Tablet 1 Terazosin HCl 1 MG Oral Capsule (Hytrin) Take 1 Capsule by mouth at bedtime. 31 Capsule 5 Torsemide 100 MG Oral Tablet (Demadex) Take 1 Tablet by mouth in the morning. 30 Tablet 5 Apixaban 2.5 MG Oral Tablet (Eliquis) Take 1 Tablet by mouth in the morning and 1 Tablet before bedtime. 60 Tablet 5 Docusate Sodium 100 MG Oral Capsule Take 1 Capsule by mouth in the morning and 1 Capsule before bedtime. Lactulose 10 GM/15ML Oral Solution (Constulose) TAKE 15 ML BY MOUTH TWICE A DAY NEEDED FOR SEVERE CONSTIPATION 237 mL 3 glipiZIDE 10 MG Oral Tablet (Glucotrol) Take 1 Tablet by mouth in the morning and 1 Tablet before bedtime. 30 minutes before a meal. 180 Tablet 3 Renal Vitamin 0.8 MG Oral Tablet Take by mouth. Gabapentin 100 MG Oral Capsule (Neurontin) Take 1 Capsule by mouth in the morning and 1 Capsule before bedtime. (Patient not taking: Reported on 05/18/2023) 60 Capsule 1 Cyclobenzaprine HCl 5 MG Oral Tablet (Flexeril) Take 1 Tablet by mouth in the morning and 1 Tablet at noon and 1 Tablet before bedtime. (Patient not taking: Reported on 05/18/2023) 90 Tablet 2 Metoprolol Succinate ER 25 MG Oral Tablet Extended Release 24 Hour (toPROL XL) Take 0.5 Tablets by mouth daily. (Patient not taking: Reported on 05/18/2023) 30 Tablet 5 Potassium Chloride ER 20 MEQ Oral Tablet Extended Release Take 2 Tablets by mouth in the morning. 60 Tablet 3 Ventolin HFA 108 (90 Base) MCG/ACT Inhalation Aerosol Solution Inhale 2 Puffs by mouth every 4 hours as needed for Wheezing or Dyspnea. (Patient not taking: Reported on 05/18/2023) 1 g 0 [employer] In Vitro Strip (Glucose Blood) USE UP TO FOUR TIMES A DAY 400 Strip 3 glipiZIDE ER 10 MG Oral Tablet Extended Release 24 Hour (glipiZIDE XL) Take 1 Tablet by mouth in the morning. 30 minutes before a meal.. (Patient not taking: Reported on 07/26/2023) 30 Tablet 5 ONETOUCH DELICA LANCETS FINE MISC Use four times daily 100 Each 11 Blood Glucose Monitoring Suppl ([employer]ive [employer]) w/Device KIT Use up to 4 times a day 1 Kit 0 Immunization History Administered Date(s) Administered COVID-19 mRNA, LNP-s, No Preserve, 2-Dose Series ([place]) 01/30/2021, 02/20/2021 Pneumococcal Conjugate Vacc, 13 Valent (Prevnar) 01/26/2018 Pneumococcal Polysaccharide PPV23 (Pneumovax) 01/30/2006 Seasonal Influenza, PF, 6 M & above, IM , (FluLaval or Fluzone) 03/01/2017, 01/26/2018, 02/03/2019, 02/07/2020 Seasonal Influenza, Quadrivalent Hd (Fluzone Hd) 04/28/2021, 03/17/2022, 03/25/2023 Seasonal Influenza, Quadrivalent, No Preserve, IM 02/14/2015, 03/20/2016 Seasonal Influenza, Split, IIV3, With Preserve, Inj 03/12/2006, 02/16/2007, 03/16/2008, 02/07/2009,02/01/2010, 01/22/2011, 01/23/2012, 02/10/2013, 01/06/2014 TD, Preservative Free 04/27/2008 TMR Interventions Incomplete Medication Therapy Recommendations No medication therapy recommendations to display Completed Medication Therapy Recommendations No medication therapy recommendations to display Assessment & Plan Indication, effectiveness, safety and convenience of his medications were reviewed today. The patient's medical conditions were assessed, evaluated, and deemed meeting goals of drug therapy, with thefollowing exceptions. Additional Notes: Patient is having hemorrhoidal bleeding and stopped taking their Eliquis. Notified MD and requestedthey follow-up with patient. Summary Time Spent: 16-30 min Supervising pharmacist who provided the service: Rickey Baugh Information Who was the recipient of the CMR service: beneficiary Language Template for the Patient Takeaway: [place] I attest that I have reviewed and updated the patient's conditions, allergies, and medications to the best of my ability. Patient provided medication list gathered by: Maribel Petty, [facility] Kell Bernstein [facility] 07/26/2023, 3:52 PM documented in this encounter Miscellaneous Notes * MTM To-Do-List - Kell Bernstein RPh - 07/26/2023 3:48 PM EDT Images from the original note were not included. What we talked about: What I should do: The importance of taking your medication as prescribed Your medicine works best when taken as prescribed. It can be hard to remember to take daily medications. Consider making it a part of your daily routine. Pair taking your medication with something you do every day, like brushing your teeth or eating a meal. Consider setting daily alarms to help remind yourself when it is time to take your medicine. Using a pill box can also help you organize your medicines. Pill boxes allow you to fill each day slot with your daily medicine and help you track when your next dose is due. What we talked about: What I should do: Opioid safety - Hydrocodone-acetaminophen You have an opioid medication called HYDROcodone-Acetaminophen at home to use as needed for pain. You mentioned that this medication works well to control your pain as needed. It is important to monitor your breathing while taking this medication. If you experience excessive shortness of breath or slow/shallow breathing, stop this medication and call yourprovider IMMEDIATELY. Do not use this medication with muscle relaxants and avoid alcohol. Do not drive a car while taking this medication. Additionally, it is important to store this medication appropriately, out of plain sight and out of reach of children and pets. A lock box can also be considered for storage of this medication. If you are interested in discarding this medication, you can bringany unused medication to the local police station or disposal site, or check ari.gov for a site near your home. What we talked about: What I should do: Levothyroxine administration We discussed that the timing of this medication is important. This medication should be taken 30 to 60 minutes before breakfast every morning on an empty stomach. You should take this medication with a full glass of water. What we talked about: What I should do: Blood thinner - Eliquis We discussed that this medication is a blood thinner used to prevent blood clots. It is important to monitor for signs and symptoms of bleeding, such as bleeding that lasts a long time, blood in urine or stools, nose bleeds, or bruises that happen without a known cause or last very long. Monitor for these signs of bleeding and call your doctor if you experience any of these. What we talked about: What I should do: Fall prevention Falls can lead to broken bones or even more severe internal injuries. It is important to prevent falls by removing tripping hazards from your environment such as throw rugs and cords.Ensure you have good lighting and wear shoes or non-slip socks to help prevent accidental falls. Using a cane can help with unsteadiness. Grab bars in your shower/bathroom can also be helpful to ensure you do not fall. If you are frequently feeling unsteady (or experiencing dizziness) be sure to talk with your doctor about whether or not any of your medications or conditions may be contributing to these symptoms. What we talked about: What I should do: Checking your blood sugar It is important to monitor your blood sugar regularly. Make sure to record your readings in a log and take them with you to your appointments. Providing these readings to your healthcare providers can help them better control your blood sugar. If you are consistently experiencing HIGH blood sugars (over 200 mg/dl) or LOW blood sugars (below 70 mg/dl), it is important to call your doctor's office IMMEDIATELY and NOT wait until your appointment to let them know. Your doctor may want to adjust your medications BEFORE your appointment. Discuss with your doctor before making any changes to any of your medications. What we talked about: What I should do: Signs of high or low blood sugar When your blood sugar is too high or too low your body could experience symptoms. Signs include: dizziness, shakiness, feeling hungry, feeling thirsty, sweatiness, nervousness, irritability, weakness, sleepiness, blurred vision, increased urination, lack of coordination. If you notice any of these signs, it is a great time to check your blood sugar. What we talked about: What I should do: What to do when blood sugar is too low When your blood sugar is 70 mg/dl or below, it is important to increase blood sugar immediately. Low blood sugar could lead to coma and even . When you notice your sugar is low, eat a small snack containing sugar. Some examples include: drink a small amount of orange juice (4 ounces), 4 ounces of regular soda or milk, taking glucose tablets (15 grams), or eat 1 tablespoonful of sugar. Wait 15 minutes, and recheck your blood sugar. If your sugar is still low, try to increase it again by eating a small amount of sugar. Recheck your blood sugar in 15 minutes. If after two attempts to raise it, and your blood sugar is still low-call your doctor immediately. * MT Personal Medication List - Kell Bernstein RPh - 07/26/2023 12:12 PM EDT Medication How I take it Why I use it Prescriber Allopurinol 100 MG Oral Tablet (Zyloprim) Take 1 Tablet by mouth in the morning. Gout Pramod Damian MD Apixaban 2.5 MG Oral Tablet (Eliquis) Take 1 Tablet by mouth in the morning and 1 Tablet before bedtime. Blood clot prevention/A.Fib Pramod Damian MD B Complex Vitamins Oral Capsule Take 1 Capsule by mouth in the morning. General health Self busPIRone HCl 5 MG Oral Tablet (Buspar) Take 1 Tablet by mouth twice daily as needed. Anxiety Coreen Damian MD D3-1000 25 MCG (1000 UT) Oral Tablet (Cholecalciferol) Take 2 Tablets by mouth in the morning. General health Self Docusate Sodium 100 MG Oral Capsule Take 1 Capsule by mouth in the morning and 1 Capsule before bedtime. Constipation Self glipiZIDE 10 MG Oral Tablet (Glucotrol) Take 1 Tablet by mouth in the morning and 1 Tablet before bedtime. Take 30 minutes before a meal. Diabetes Pramod Damian MD HYDROcodone-Acetaminophen 5-325 MG Oral Tablet Take 1 Tablet by mouth every 6 hours as needed for Pain Pain Pramod Damian MD Lactulose 10 GM/15ML Oral Solution (Constulose) TAKE 15 ML BY MOUTH TWICE A DAY NEEDED FOR SEVERE CONSTIPATION Constipation Gina Nichole PA-C Levothyroxine Sodium 150 MCG Oral Tablet (Levoxyl) TAKE 1 TABLET BY MOUTH EVERY MORNING AT LEAST 30MINUTES PRIOR TO BREAKFAST OR OTHER MEDS. Thyroid Pramod Damian MD Magnesium 250 MG Oral Tablet Take 1 Tablet by mouth in the morning. General health Self Renal Vitamin 0.8 MG Oral Tablet Take 1 tablet by mouth once daily. General health Self Terazosin HCl 1 MG Oral Capsule (Hytrin) Take 1 Capsule by mouth at bedtime. High blood pressure Bill Ramírez DANIKA Palencia Torsemide 100 MG Oral Tablet (Demadex) Take 1 Tablet by mouth in the morning. Fluid retention Coreen Damian MD documented in this encounter Plan of Treatment Upcoming Encounters Date Type Department Care Team (Late st Contact Info) Description 09/07/2023 2:20 PM EDT Office Visit Podiatry [facility] [address] [facility] [place] [address] Magalie Parker DPM [address] [facility] [place] [address] 09/07/2023 5:40 PM EDT Office Visit [facility] [address] [place] [id number] Pramod Damian MD [address] [place] [address] Health Maintenance Due Date Last Done Comments [...] this encounter Medical Devices Implanted Type Area Vegetable Farmworker Device Identifier Shelf Expiration Date Model / Serial / Lot Mesh Flat Sheet 1x4 [id number] - [id number] Implanted:Qty: 1 on 11/12/2022 by Willie Musa MD at [facility] Right: Groin CR BARD : DAVOL 09/04/2025 [id number] / / [id number] documented as of this encounter Visit Diagnoses Diagnosis Medication management- Primary Encounter for long-term (current) use of [...] the patient have Health Care Power of Assembly Line Upholsterer? No Care Teams Senior Case Manager Relationship Specialty Start Date End Date Pramod aDmian MD [address] [place] [address] PCP - General 04/10/02 documented as of this encounter
--- OUTSIDE RECORDS SUMMARY | 2023-08-22 12:03 | External Medical Summary ---
Author Name Unknown Address Unknown Organization K01:[facility] [address] [place] [id number] Laboratory Report Ordering Provider Test Date Status ADAMMARK 08/10/2023 14:05:18 Final Observation Date Value Abnormality Reference (Units ) Status TSH 08/10/2023 14:05:18 4.95 Above high normal 0. 27-4.20 (uIU/mL) Final Performing Location [facility] [address] [place] [id number]
--- OUTSIDE RECORDS SUMMARY | 2023-08-22 12:03 | External Medical Summary | Summary of Care ---
Author Name Unknown Organization [facility] Address [address] [place] [address] Phone [phone] Care Team Providers Care Corporate Law Specialist Name Role Phone Neville David MD Primary Care Provider [phone]- [phone] Reason for Visit * Reason Onset Date Comments Medication Refill 08/05/2023 Encounter Details Date Type Department Care Team (Late st Contact Info) Description 08/05/2023 Refill [facility] [address] [place] [address] Neville David MD [address] [place] [address] Acute right-sided low back pain [...] as of this encounter (statuses as of 08/05/2023) Medications Medication Sig Dispensed Refills Start Date End Date Status Blood Glucose Monitoring Suppl (Epoch) w/Device KIT Use up to 4 times a day 1 Kit 0 11/11/2017 Active [employer] InfoT[employer] DELICA LANCETS FINE MISC Use four times daily 100 Each 11 05/12/2019 Active Renal Vitamin 0.8 MG Oral Tablet Take by mouth. 0 Active glipiZIDE ER 10 MG Oral Tablet Extended Release 24 Hour (glipiZIDE XL) Take 1 Tablet by mouth in the morning. 30 minutes before a meal.. 30 Tablet 5 10/08/2022 Active Additional Information Patient not taking.Reported on 07/26/2023 [employer] In Vitro Strip (Glucose Blood)Indications: Type 2 diabetes mellitus with hemoglobin A1c goal of less than 8.0% ([facility]) USE UP TO FOUR TIMES [...] as needed 28 g 1 07/29/2023 Active HYDROcodone-Acetam inophen 5-325 MG Oral TabletIndications: Acute right-sided low back pain without sciatica Take 1 Tablet by mouth every 6 hours as needed for Pain, Mild or Pain, Severe. 20 Tablet 0 08/05/2023 Active HYDROcodone-Acetam inophen 5-325 MG Oral TabletIndications: Acute right-sided low back pain without sciatica Take 1 Tablet by mouth every 6 hours as needed for Pain, Mild or Pain, Severe. 20 Tablet 0 07/21/2023 4 Discontinu ed(Refill) documented as of this encounter (statuses as of 08/05/2023) Active Problems Problem Noted Date Diagnosed Date [...] as of this encounter (statuses as of 08/05/2023) Resolved Problems Problem Noted Date Diagnosed Date [...] CKD protocol #1 Hypertensive heart disease w [facility] congestive heart failure 08/27/2014 08/27/2014 Hypertensive heart disease w [facility] congestive heart failure 08/27/2014 05/25/2019 Overview: [...] as of this encounter (statuses as of 08/05/2023) Immunizations Name Administration Dates Next Due COVID-19 [...] encounter Miscellaneous Notes * Telephone Encounter - Neville David MD - 08/05/2023 5:09 PM EDTSigned Prescriptions: Disp Refills HYDROcodone-Acetaminophen 5-325 MG Oral Ta*20 Tab*0 Sig: Take 1Tablet by mouth every 6 hours as needed for Pain, Mild or Pain, Severe.Authorizing Provider: NEVILLE DAVID * Telephone Encounter - Honorio Valdez, [facility] - 08/05/2023 4:59 PM EDT Pending Prescriptions: Disp Refills HYDROcodone-Acetaminophen 5-325 MG Oral Ta*20 Tab*0 Sig: Take 1 Tablet by mouth every 6 hours as needed for Pain, Mild or Pain, Severe. * Telephone Encounter - Honorio Valdez, [facility] - 08/05/2023 4:57 PM EDT I have reviewed the patients controlled substance dispensing history in the Prescription Drug Monitoring Program in compliance with the [facility] regulations before prescribing a controlled substance. PDMP checked on 08/05/2023. Pending Prescriptions: Disp Refills HYDROcodone-Acetaminophen 5-325 MG Oral T*20 Tab*0 Sig: Take 1 Tablet by mouth every 6 hours as needed for Pain, Mild or Pain, Severe. Last Visit: 07/23/2023 (in office), Visit date not found (telemedicine) Next Visit: 09/07/2023 Date medication was last filled: 07/21/2023 Date medication is due for refill: 07/25/2023 Pharmacy: [id number] [facility] [facility] [place] Is this request for a controlled substance? Yes and Urine Drug Screen Not completed Toxicology results: No results found. However, due to the size of the patient record, not all encounters were searched.Please check Results Review for a complete set of results. Please approve if appropriate. Thank you, Matias Valdez, PharmD Clinical Pharmacist [facility] ([facility]) 08/05/23 4:58 PM [phone] documented in this encounter Plan of Treatment Upcoming Encounters Date Type Department Care Team (Late st Contact Info) Description 09/07/2023 2:20 PM EDT Office Visit Podiatry [facility] [address] [place] [address] Magalie Parker DPM [address] [place] [address] 09/07/2023 5:40 PM EDT Office Visit [facility] [address] [place] [phone] Neville David MD [address] [place] [address] Health Maintenance Due Date Last Done Comments [...] FOR COPD 11/13/2023 11/12/2022 TSH 04/08/2024 04/08/2023, 10/2 09/2022, 02/19/2023, Additional history exists Pneumococcal Vaccine: 65+ Years Completed 01/26/2018, 01/30/2006 Influenza Vaccine (FLU shot) Completed , 03/17/2022, 04/28/2021, Additional history exists Hepatitis B Completed 04/20/2023, 1007/2022, 01/14/2023 GARDASIL-HPV IMMUNIZATION SERIES Aged Out No longer eligible based on patient's age to complete this topic MENINGOCOCCAL (MENACTRA/MENVEO) Aged Out No longer eligible based on patient's age to complete this topic documented as of this encounter Medical Devices Implanted Type Area Pipe Fitter Welding Device Identifier Shelf Expiration Date Model / Serial / Lot Mesh Flat Sheet 1x4 [id number] - [id number] Implanted:Qty: 1 on 11/12/2022 by Willie Musa MD at [facility] Right: Groin CR BARD : DAVOL 09/04/2025 [id number] / / [id number] documented as of this encounter Visit Diagnoses [...] the patient have Health Care Power of Orthopedic Rn? No Care Teams Corporate Law Specialist Relationship Specialty Start Date End Date Neville David MD [address] [place] [address] PCP - General 04/10/02 documented as of this encounter
--- OUTSIDE RECORDS SUMMARY | 2023-08-22 12:03 | External Medical Summary | Summary of Care ---
Author Name Unknown Organization [facility] Address [address] [facility] [facility] [place] [address] Phone [phone] Care Team Providers Care Systems Engineer Name Role Phone Pramod Damian MD Primary Care Provider +1- [phone] Encounter Details Date Type Department Care Team (Late st Contact Info) Description 08/05/2023 Population Health External Data Unspecified Department Allergies Active Allergy Reactions Criticality Noted Date [...] End Date Status Blood Glucose Monitoring Suppl (ONETOUCH VERIO) w/Device KIT Use up to 4 times a day 1 Kit 0 11/11/2017 Active ONETOUCH DELICA LANCETS FINE MISC Use four times daily 100 Each 05/12/2019 Active Renal Vitamin 0.8 MG Oral Tablet Take by mouth. 0 Active glipiZIDE ER 10 MG Oral Tablet Extended Release 24 Hour (glipiZIDE XL) Take 1 Tablet by mouth in the morning. 30 minutes before a meal.. 30 Tablet 5 10/08/2022 Active Additional Information Patient not taking.Reported on 07/26/2023 [employer] In Vitro Strip (Glucose Blood)Indications:T ype 2 [...] Pain, Severe. 20 Tablet 0 08/05/2023 Active documented as of this encounter (statuses [...] CKD protocol #1 Hypertensive heart disease w [facility] congestive heart failure 08/27/2014 08/27/2014 Hypertensive heart [...] Team (Late st Contact Info) Description 08/10/2023 1:20 PM EDT Office Visit [place] [address] [place] [phone] Diane Jacobson MD [address] [facility] [place] [id number] 09/07/2023 2:20 PM EDT Office Visit Podiatry [facility] [address] [place] [address] Magalie Parker DPM [address] [place] [address] 09/07/2023 5:40 PM EDT [facility] [place] [address] [facility] [phone] Pramod Damian MD [address] [place] [address] Health Maintenance Due Date Last Done Comments [...] this encounter Medical Devices Implanted Type Area Musical Engineer Device Identifier Shelf Expiration Date Model / Serial / Lot Mesh Flat Sheet 1x4 [id number] - [id number] Implanted:Qty: 1 on 11/12/2022 by Willie Musa MD at OR [facility] Right: Groin CR BARD : DAVOL 09/04/2025 [id number] / / [id number] documented as of this encounter Advance Directives [...] the patient have Health Care Power of Elementary Reading Tutor? No Care Teams Systems Engineer Relationship Specialty Start Date End Date Pramod Damian MD [address] [place] [address] PCP - General 04/10/02 documented as of this encounter
--- OUTSIDE RECORDS SUMMARY | 2023-08-22 12:04 | External Medical Summary ---
Author Name Unknown Address Unknown Organization K01:LABORATORY [facility] [place] - [address] [place] [id number] Laboratory Report Ordering Provider Test Date Status FRANKIE LOZADA 04/08/2023 14:21:22 Final Observation Date Value Abnormality Reference (Units ) Status T4, Free 04/08/2023 14:21:22 1.0 0.9-1.7 (n g/dL) Final Performing Location LABORATORY [facility] - [address] [place] [id number]
--- OUTSIDE RECORDS SUMMARY | 2023-08-22 12:04 | External Medical Summary ---
Author Name Unknown Address Unknown Organization K01:LABORATORY [facility] [place] - [address] [id number] Laboratory Report Ordering Provider Test Date Status STEFANO MARIA 04/08/2023 14:21:22 Final Deficient: <20 ng/mL
Ins ufficient: 20-29 ng/mL
Recommended/Optimum:30-50 ng/mL

Vitamin D intoxication is rare. If suspicious of Vitamin D toxicity, evaluation of serum Calcium and PTH is recommended. Observation Date Value Abnormality Reference (Units ) Status 25-OH Vitamin D total 04/08/2023 14:21:22 26 >19 (ng/mL) Final Performing Location LABORATORY [facility] [place] - [address] [id number]
--- OUTSIDE RECORDS SUMMARY | 2023-08-22 12:04 | External Medical Summary | Summary of Care ---
Author Name Unknown Organization [facility] Address [address] [facility] [facility] [address] Phone [phone] Care Team Providers Care Instrument Room Technician Name Role Phone Pramod Damian MD Primary Care Provider +1- [phone] Encounter Details Date Type Department Care Team (Late st Contact Info) Description 05/20/2023 Population Health External Data Unspecified Department Allergies [...] as of this encounter (statuses as of 05/24/2023) Medications Medication Sig Dispensed Refills Start Date End Date Status Blood Glucose Monitoring Suppl (ONETOUCH VERIO) w/Device KIT Use up to 4 times a day 1 Kit 0 11/11/2017 Active ONETOUCH DELICA LANCETS FINE MISC Use four times daily 100 Each 05/12/2019 Active Allopurinol 100 MG Oral Tablet (Zyloprim) Take 1 Tablet by mouth in the morning. Do not start before August 27, 2022. 30 Tablet 3 08/27/2022 Active Renal Vitamin 0.8 MG Oral Tablet Take by mouth. 0 Active glipiZIDE ER 10 MG Oral Tablet Extended Release 24 Hour (glipiZIDE XL) Take 1 Tablet by mouth in the morning. 30 minutes before a meal.. 30 Tablet 5 10/08/2022 Active Additional Information Patient not taking.Reported on 05/18/2023 [employer] In Vitro Strip (Glucose Blood)Indications: Type 2 [...] SEVERE CONSTIPATION 237 mL 3 2023 Active Additional Information Patient not taking.Reported on 05/18/2023 Docusate Sodium 100 MG Oral Capsule Take [...] OTHER MEDS. 90 Tablet 1 05/03/2023 Active Additional Information Patient not taking.Reported on 05/18/2023 Amoxicillin-Pot Clavulanate 500-125 MG Oral Tablet (Augmentin) Take 1 Tablet by mouth in the morning and 1 Tablet before bedtime. Do all this for 7 days. 14 Tablet 0 05/18/2023 05/25/2023 Active documented as of this encounter (statuses as of 05/24/2023) Active Problems Problem Noted Date Diagnosed Date COPD, group A, by GOLD 2017 classification [...] as of this encounter (statuses as of 05/24/2023) Resolved Problems Problem Noted Date Diagnosed Date [...] CKD protocol #[address] heart disease w [facility] congestive heart failure 08/27/2014 08/27/2014 Hypertensive heart disease w [facility] congestive heart failure 08/27/2014 05/25/2019 Overview: duplicate [...] as of this encounter (statuses as of 05/24/2023) Immunizations Name Administration Dates Next Due COVID-19 mRNA, LNP-s, No Pre serve, 2-Dose Series (Cardoc) 02/20/2021,01/30/2021 Pneumococcal Conjugate Vacc, 13 Valent (Prevnar) [...] 03/17/2022 Hunger Vital Sign Answer Date Recorded Worried About Running Out of Food in the Last Ye ar Never true 01/25/2020 Ran Out of Food in the Last Year Never true 01/25/2020 Sex and Gender Information Value Date Recorded [...] Care Team (Late st Contact Info) Description 06/07/2023 9:20 AM EST Office Visit Podiatry [facility] [address] [facility] [place] [address] Neda Ott DPM [address] [facility] [place] [address] 06/09/2023 10:00 AM EST Office Visit Cardiology, [facility] [address] [facility] [address] Kierra Guerra PA-C [address] [facility] [address] 07/26/2023 9:00 AM EDT Imaging Radiology [facility] [address] [facility] [place] [address] 09/07/2023 5:40 PM EDT Office Visit [facility] [address] [place] [phone] Pramod Damian MD [address] [place] [address] Health Maintenance Due Date Last Done Comments [...] Pneumococcal Vaccine: 65+ Years Completed 01/26/2018, 01/30/2006 Hepatitis B Completed 02/09/2023, 01/14/2023 Influenza Vaccine (FLU shot) Completed , 03/17/2022, 04/28/2021, Additional history exists GARDASIL-HPV IMMUNIZATION SERIES Aged Out No longer eligible based on patient's age to complete this topic MENINGOCOCCAL (MENACTRA/MENVEO) Aged Out No longer eligible based on patient's age to complete this topic documented as of this encounter Medical Devices Implanted Type Area Ic Designer Custom Device Identifier Shelf Expiration Date Model / Serial / Lot Mesh Flat Sheet 1x4 [id number] - [id number] Implanted:Qty: 1 on 11/12/2022 by Willie Musa MD at OR [facility] Right: Groin CR BARD : DAVOL 09/04/2025 [id number] / / [id number] documented as of this encounter Advance Directives [...] the patient have Health Care Power of Vegetables Cook? No Care Teams Instrument Room Technician Relationship Specialty Start Date End Date Pramod Damian MD [address] [place] [address] PCP - General 04/10/02 documented as of this encounter
--- OUTSIDE RECORDS SUMMARY | 2023-08-22 12:04 | External Medical Summary | Summary of Care ---
Author Name Unknown Organization [facility] Address [address] [place] [address] Phone [phone] Care Team Providers Care Casino Operations Supervisor Name Role Phone Pramod Damian MD Primary Care Provider +1- [phone] Reason for Visit * Reason Comments NEW PATIENT * Evaluate & Treat - Unlimited Visits (Within 30 days (routine)) - Authorized Specialty Diagnoses / Procedures Referred By Cal dykes Referred To Contact Podiatry Diagnoses Encounter for nail care Pramod Damian MD [address] [place] [address] Referral ID Status Reason Start Date Expiration Date Visits Requested Visits Authorized [id number] Authorized Specialty Services Required 3 [phone] Encounter Details Date Type Department Care Team (Late st Contact Info) Description 06/07/2023 9:20 AM EST Office Visit Podiatry [facility] [address] [facility] [place] [address] Neda Ott DPM [address] [facility] [place] [id number] Type 2 diabetes mellitus with stage 4 chronic kidney disease, without long-term current use of insulin (HCC)*; Onychomycosis; Injury of toenail of right foot, initial encounter; Foot drop, right Allergies Active Allergy Reactions Criticality Noted Date Comments Citalopram 04/20/2014 Clonidine Hydrochloride Nausea/vomiting 008 Nightmares, nervousness Reaction depending on brand!!! Must be produced by [employer] Doxazosin Mesylate Other (Please comment) High 05/16/2007 [...] as of this encounter (statuses as of 06/07/2023) Medications Medication Sig Dispensed Refills Start Date End Date Status Blood Glucose Monitoring Suppl ([employer]) w/Device KIT Use up to 4 times a day 1 Kit 0 11/11/2017 Active FM [employer] DELICA LANCETS FINE MISC Use four times daily 100 Each 11 05/12/2019 Active Allopurinol 100 MG Oral Tablet [...] Additional Information Patient not taking.Reported on 05/18/2023 [employer] In Vitro Strip (Glucose Blood)Indications:T ype 2 diabetes mellitus with hemoglobin A1c goal of less than 8.0% ([facility]) USE UP TO FOUR TIMES [...] Additional Information Patient not taking.Reported on 05/18/2023 documented as of this encounter (statuses as of 06/07/2023) Active Problems Problem Noted Date Diagnosed Date [...] as of this encounter (statuses as of 06/07/2023) Resolved Problems Problem Noted Date Diagnosed Date [...] CKD protocol #1 Hypertensive heart disease w [facility] congestive heart failure 08/27/2014 08/27/2014 Hypertensive heart disease w [facility] congestive heart failure 08/27/2014 05/25/2019 Overview: [...] as of this encounter (statuses as of 06/07/2023) Immunizations Name Administration Dates Next Due COVID-19 [...] as of this encounter Progress Notes * Neda Ott, DPM - 06/07/2023 9:56 AM EST Podiatry New Patient Note [facility] Name: Brady David : 1940 Date: 06/07/2023 CHIEF COMPLAINT: interested in foot care, concerns of right 2nd toenail injury HISTORY OF PRESENT ILLNESS: This patient is a 83 year old male who presents today accompanied by his daughter. Brady presents in a wheelchair today. He was interested in diabetic foot care as he is unable to reach to trim his toenails of which are thickened. He then injured the right forefoot morerecently. He reports a history of right sided drop foot of which he knows a brace is an object but he prefers to avoid. He was walking in his home when the right 2nd toe got caught. It seems a blood blister may have formed near the toenail. The daughter has been applying iodine on this daily. He denies pain. 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 He offers no other concerns t omari. Past Medical History: Diagnosis Date Anxiety BPH [...] CARPAL TUNNEL SURGERY 10/28/2011 release right wrist, Randy COLORECTAL CANCER SCREEN; NOT AT RISK 01/08/2007 [...] performed by Bill Hansen DO at OR [facility] IR VENOUS ACCESS NON-MEDIPORT 09/03/2022 IR VENOUS ACCESS NON-MEDIPORT 10/22/2022 IR VENOUS ACCESS NON-MEDIPORT 12/24/2022 LAPAROSCOPY, W/ INSERT INTRAPERITONEAL CATH N/A 08/25/2022 LAPAROSCOPIC INSERTION INTRAPERITONEAL CANNULA OR CATHETER performed by Willie Musa MD at OR [facility] LUMBAR SPINE FUSION, POST INTERBODY 12/08/2012 Torreti PROSTATE CRYOABLATION 11/15/2008 CRYOSURGICAL ABLATION OF PROSTATE performed by MIKE CORBETT [place] [facility] REMOVAL OF THYMUS GLAND 05/10/2000 REPAIR INITIAL INGUINAL HERNIA REDUCIBLE AGE 5 OR MORE Right 11/12/2022 REPAIR INITIAL INGUINAL HERNIA REDUCIBLE AGE 5 OR MORE performed by iWllie Musa MD at OR [facility] REVISION OF ULNAR NERVE AT ELBOW Family History Problem Relation Age of Onset Diabetes Mother Other (Other) Father Parkinsons/? gout Cancer Sister 72 breast Diabetes Sister 61 NIDDM Diabetes Daughter IDDM, pump Gastro-intestinal disorder Daughter 40 pacemaker for stomach Hypertension Brother Other (Other) Brother ? 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 Employer: [employer] Comment: [employer] Tobacco Use Smoking status: Former Packs/day: 0.75 Years: 17.00 Additional pack years: 0.00 Total pack years: 12.75 Types: Cigarettes Start date: 10/15/1961 Quit date: 05/10/1978 Years since quittin.1 Smokeless tobacco: Never Vaping Use Vaping Use: Never used Substance and Sexual Activity Alcohol use: No Drug use: No Other Topics Concern Seat Belt Yes Social Determinants of Health Food Insecurity: No Food Insecurity (04/05/2023) Hunger Vital Sign Worried About Running Out of Food in the Last Year: Never true Ran Out of Food in the Last Year: Never true Current Outpatient Medications Medication Sig Dispense Refill Blood Glucose Monitoring Suppl ([employer] VERIO) w/Device KIT Use up to 4 times a day 1 Kit 0 ONETOUCH DELICA LANCETS FINE MISC Use four times daily 100 Each 11 Allopurinol 100 MG Oral Tablet (Zyloprim) Take 1 Tablet by mouth in the morning. Do not start before August 27, 2022. 30 Tablet 3 Renal Vitamin 0.8 MG Oral Tablet Take by mouth. glipiZIDE ER 10 MG Oral Tablet Extended Release 24 Hour (glipiZIDE XL) Take 1 Tablet by mouth in the morning. 30 minutes before a meal.. (Patient not taking: Reported on 05/18/2023) 30 Tablet 5 [employer] Verio In Vitro Strip (Glucose Blood) USE UP TO FOUR TIMES A DAY 400 Strip 3 glipiZIDE 10 MG Oral Tablet (Glucotrol) Take 1 Tablet by mouth in the morning and 1 Tablet before bedtime. 30 minutes before a meal. 180 Tablet 3 Lactulose 10 GM/15ML Oral Solution (Constulose) TAKE 15 ML BY MOUTH TWICE A DAY NEEDED FOR SEVERE CONSTIPATION (Patient not taking: Reported on 05/18/2023) 237 mL 3 Docusate Sodium 100 MG Oral Capsule Take 1 Capsule by mouth in the morning and 1 Capsule before bedtime. Ventolin HFA 108 (90 Base) MCG/ACT Inhalation Aerosol Solution Inhale 2 Puffs by mouth every 4 hours as needed for Wheezing or Dyspnea. (Patient not taking: Reported on 05/18/2023) 1 g 0 Potassium Chloride ER 20 MEQ Oral Tablet Extended Release Take 2 Tablets by mouth in the morning. 60 Tablet 3 Apixaban 2.5 MG Oral Tablet (Eliquis) Take 1 Tablet by mouth in the morning and 1 Tablet before bedtime. 60 Tablet 5 Torsemide 100 MG Oral Tablet (Demadex) Take 1 Tablet by mouth in the morning. 30 Tablet 5 Metoprolol Succinate ER 25 MG Oral Tablet Extended Release 24 Hour (toPROL XL) Take 0.5 Tablets by mouth daily. (Patient not taking: Reported on 05/18/2023) 30 Tablet 5 Cyclobenzaprine HCl 5 MG Oral Tablet (Flexeril) Take 1 Tablet by mouth in the morning and 1 Tablet at noon and 1 Tablet before bedtime. (Patient not taking: Reported on 05/18/2023) 90 Tablet 2 Terazosin HCl 1 MG Oral Capsule (Hytrin) Take 1 Capsule by mouth at bedtime. 31 Capsule 5 Gabapentin 100 MG Oral Capsule (Neurontin) Take 1 Capsule by mouth in the morning and 1 Capsule before bedtime. (Patient not taking: Reported on 05/18/2023) 60 Capsule 1 Levothyroxine Sodium 150 MCG Oral Tablet (Levoxyl) TAKE 1 TABLET BY MOUTH EVERY MORNING AT LEAST 30MINUTES PRIOR TO BREAKFAST OR OTHER MEDS. (Patient not taking: Reported on 05/18/2023) 90 Tablet 1 No current facility-administered medications for this visit. ALLERGIES: Review of patient's allergies indicates: Allergen Reactions Doxazosin Mesylate Other (Please comment) Citalopram Clonidine Hydrochloride Nausea/vomiting Nightmares, nervousness Reaction depending on brand!!! Must be produced by [employer] Sukh Hctz [Hydrochlorothiazide] Hyponatremia Hydralazine Diarrhea, testicular pain Januvia [Sitagliptin] Other (Please comment) Restlessness Lisinopril Cough Losartan Other (Please comment) Other Allergy (See Comments) Pt states he had reactions to many other medications, but does not know their names. Was encouraged to provide us with names. Statins myalgias on zocor REVIEW OF SYSTEMS: CONSTITUTIONAL: No fevers, sweats, or chills FOCUSED PODIATRIC EXAM: Vascular: Pedal pulses palpable including dorsalis pedis and posterior tibial artery at 1/4 bilaterally. Capillary refill time is within normal limits to all toes. Mild non pitting edema of both lower legs. Skin is thin. No warmth. Pedal hair growth is absent. Neurologic: Sensation (light touch) intact to the bilateral lower extremities. No hypersensitivity. Weakness noted to the right side. Musculoskeletal: No pain is reported with palpation of either foot. Dermatological: Skin is thin, and dry. No open wounds or rash. Some chronic appearing hemosiderin discoloration to both dorsal feet. All toenails are thickened, discolored, and elongated. There is subungual debris to toenails 1 bilateral and 2 right. Class Findings for Routine Foot Care Class A Findings: None Class B Findings: Advanced trophic changes (at least three of the following): hair growth (decreaseor absence), nail changes (thickening), and pigmentary changes (discoloration) Class C Findings: Edema and Paresthesia (abnormal spontaneous sensations in feet) Modifier: Q9 - 1 Class B Finding and 2 Class C Findings DIAGNOSTIC STUDIES: Hemoglobin AIC Results: Lab Results Component Value Date/Time HEMOGLOBIN A1C - [facility] 8.5 (H) 02/19/2023 09:07 AM HEMOGLOBIN A1C - [facility] 8.1 (H) 11/02/2022 09:56 PM HEMOGLOBIN A1C - [facility] 7.4 (H) 08/22/2022 06:12 AM HEMOGLOBIN A1C - [facility] 8.3 (H) 05/09/2020 07:43 AM HEMOGLOBIN A1C - [facility] 8.6 (H) 02/07/2020 08:29 AM HEMOGLOBIN A1C - [facility] 8.5 (H) 11/03/2019 12:22 PM ASSESSMENT: 1. Type 2 diabetes mellitus with stage 4 chronic kidney disease, without long- term current use of insulin ([facility]) 2. Onychomycosis TA T1 T2 T3 T4 T5 T6 T7 T8 T9 3. Injury of toenail of right foot, initial encounter 4. Foot drop, right PLAN: I reviewed his medical record including most recent [id number]. I discussed the drop foot. He declines option of AFO as he feels he walks minimally. I also discussed nail fungus. I reviewed Rx option of topical anti fungal. I was honest in that I do not feel this would make a huge difference. Heprefers to hold off on this for now. Although we are not accepting new foot care, I did make an exce ption today given his comorbidities putting him at high risk for foot complications. Procedure: After mild cleansing and drying of feet, toenails 1-5 bilaterally were manually and mechanically debrided without incident. A nail splitter was used to remove all incurvating edges. A right of way cutter wasused to trim nail to appropriate length. An electrical bur was used in a side to side motion to reduce nail thickness, hypertrophic growth, and to smooth all edges. Patient tolerated well. They noted improvement following procedure. I was able to debride the right 2nd toenail. This nail appeared slightly loose. I did not appreciate any open wound but some dry blood blister skin was noted. I applied betadine. They are to do this for the next few days and may certainly contact me with any concerns. Follow up: 3 months, foot care Neda Ott DPM documented in this encounter Nursing Notes * Maribel oDwling LPN - 06/07/2023 8:56 AM EST Pt presents with daughter for new visit, referred by PCP Dr Damian. Open area on R 2nd toe. Pt caught R 2nd toenail on the carpet, the nail became loose, formed a blood blister. Has been applyingiodine. States was initially referred for nail trim, advised pt our providers' practices are full and they are unable to take on new nail care. documented in this encounter Plan of Treatment Upcoming Encounters Date Type Department Care Team (Late st Contact Info) Description 07/26/2023 9:00 AM EDT Imaging Radiology [facility] [address] [facility] [place] [address] 09/07/2023 2:20 PM EDT Office Visit Podiatry [facility] [address] [facility] [place] [address] Magalie Parker DPM [address] [facility] [place] [address] 09/07/2023 5:40 PM EDT Office Visit [facility] [address] [place] [address] Pramod Damian MD [address] [facility] [place] [id number] Scheduled Referrals Name Type Priority Associated Diagnoses Orde r Schedule PODIATRY REFERRAL OP Referral Within 30 days (routine) Encounter for nail care Ordered: 04/08/2023 Health Maintenance Due Date Last Done Comments [...] this encounter Medical Devices Implanted Type Area Heel Cover Softener Device Identifier Shelf Expiration Date Model / Serial / Lot Mesh Flat Sheet 1x4 [id number] - [id number] Implanted:Qty: 1 on 11/12/2022 by Willie Musa MD at OR [facility] Right: Groin CR BARD : DAVOL 09/04/2025 [id number] / / [id number] documented as of this encounter Visit Diagnoses Diagnosis Type 2 diabetes mellitus with stage 4 chronic kidney disease, without long-term current use of insulin ([facility])- Primary Onychomycosis Dermatophytosis of nail Injury of toenail of right foot, initial encounter Foot drop, right Other acquired deformity of ankle and foot documented in this encounter Advance Directives Latest [...] the patient have Health Care Power of Autism Tutor? No Care Teams Casino Operations Supervisor Relationship Specialty Start Date End Date Pramod Damian MD [address] [place] [address] PCP - General 04/10/02 documented as of this encounter
--- OUTSIDE RECORDS SUMMARY | 2023-08-22 12:04 | External Medical Summary | Summary of Care ---
Author Name Unknown Organization [facility] Address [address] [facility] [address] Phone [phone] Care Team Providers Care Electron Gun Assembler Name Role Phone Pramod Damian MD Primary Care Provider [phone]- [phone] Encounter Details Date Type Department Care Team (Late st Contact Info) Description 06/29/2023 Population Health External Data Unspecified Department Allergies [...] as of this encounter (statuses as of 06/30/2023) Medications Medication Sig Dispensed Refills Start Date [...] Additional Information Patient not taking.Reported on 05/18/2023 1001 Menus In Vitro Strip (Glucose Blood)Indications:T ype 2 [...] as of this encounter (statuses as of 06/30/2023) Active Problems Problem Noted Date Diagnosed Date [...] as of this encounter (statuses as of 06/30/2023) Resolved Problems Problem Noted Date Diagnosed Date [...] as of this encounter (statuses as of 06/30/2023) Immunizations Name Administration Dates Next Due COVID-19 [...] Description 07/26/2023 9:00 AM EDT Imaging Radiology [facility] [address] [facility] [place] [address] 09/07/2023 2:20 PM EDT Office Visit Podiatry [facility] [place] [address] Magalie Parker, DPCristiane [address] [facility] [place] [address] 09/07/2023 5:40 PM EDT Office Visit [facility] [address] [place] [phone] Pramod Damian MD [address], [place] [phone] Health Maintenance Due Date Last Done Comments [...] this encounter Medical Devices Implanted Type Area Hydrographic Surveyor Device Identifier Shelf Expiration Date Model / Serial / Lot Mesh Flat Sheet [id number] - [id number] Implanted:Qty: 1 on 11/12/2022 by Willie Musa MD at OR [facility] Right: Groin CR BARD : DAVOL 09/04/2025 [id number] / / [id number] documented as of this encounter Advance Directives [...] the patient have Health Care Power of Architectural Drafting Instructor? No Care Teams Electron Gun Assembler Relationship Specialty Start Date End Date Pramod Damian MD [address] [place] [address] PCP - General 04/10/02 documented as of this encounter
--- OUTSIDE RECORDS SUMMARY | 2023-08-22 12:04 | External Medical Summary | Summary of Care ---
Author Name Unknown Organization [facility] Address [address] [place] [address] Phone [phone] Care Team Providers Care Neurology Teacher Name Role Phone Pramod Damian MD Primary Care Provider +1- [phone] Reason for Visit * Reason Comments Status Check Diverticulitis Encounter Details Date Type Department Care Team (Latest Contact Info) Description 05/18/2023 2:40 PM EST Office Visit [facility] [address] [place] [address] Pramod Damian MD [address] [place] [address] Lower abdominal pain*; Risk and functional assessment; ESRD on peritoneal dialysis ([facility]); Chronic diastolic congestive heart failure ([facility]); Chronic obstructive pulmonary disease, unspecified COPD type ([facility]); Persistent atrial fibrillation ([facility]); Type 2 diabetes mellitus with chronic kidney disease on chronic dialysis, without long-term current use of insulin ([facility]); Panic disorder; Hypertensive heart disease without congestive heart failure; Cyst of pancreas; Acquired hypothyroidism; Hyperparathyroidism, secondary renal (HCC); Renal osteodystrophy Allergies Active Allergy Reactions Criticality Noted Date [...] End Date Status Blood Glucose Monitoring Suppl (Talyst) w/Device KIT Use up to 4 times [...] Additional Information Patient not taking.Reported on 05/18/2023 [email or web address] In Vitro Strip (Glucose Blood)Indications :Type 2 diabetes mellitus with hemoglobin A1c goal of less than 8.0% ([facility]) USE UP TO FOUR TIMES A DAY [...] Patient not taking.Reported on 05/18/2023 Amoxicillin-Pot Clavulanate 875-125 MG Oral Tablet (Augmentin) Take 1 Tablet by mouth in the morning and 1 Tablet before bedtime. Do all this for 10 days. 20 Tablet 0 05/18/2023 Discontinue d(Medicatio n/Dose Changed) Amoxicillin-Pot Clavulanate 500-125 MG Oral Tablet (Augmentin) Take 1 Tablet by mouth in the morning and 1 Tablet before bedtime. Do all this for 7 days. 14 Tablet 0 05/18/2023 4 documented as of this encounter (statuses as [...] CKD protocol #1 Hypertensive heart disease w [facility] congestive heart failure 08/27/2014 08/27/2014 Hypertensive heart disease w [facility] congestive heart failure 08/27/2014 05/25/2019 Overview: [...] Reading Time Taken Comments Blood Pressure 132/68 05/18/2023 2:40 PM EST Pulse 71 05/18/2023 2:40 PM EST Temperature 36.5 C (97.7 F) 05/18/2023 2:40 PM ES T Respiratory Rate 20 05/18/2023 2:40 PM EST Oxygen Saturation 98% 05/18/2023 2:40 PM EST Inhaled Oxygen Concentration - - Weight - - Height 170.2 cm (5' 7") 05/18/2023 2:40 PM EST Body Mass Index - - documented in this encounter Functional Status Functional [...] No 11/02/2022 documented as of this encounter Patient Instructions * Patient Instructions* Rosenda Wright LPN - 05/18/2023 2:40 PM EST Patient Instructions - Fall Prevention (This education is for all patients over 65 regardless of symptoms) Remember to take your current medications as prescribed. In order to prevent falls, you are encouraged to: Exercise Utilize assistive/adaptive devices Avoid multifocal lenses when walking Avoid hazards in home Maintain a regular toileting schedule Any questions please contact our office. Preventing Falls in the Home (This education is for all patients over 65 regardless of symptoms) As you get older, falls are more likely. Thats because your reaction time slows. Your muscles and joints may also get stiffer, making them less flexible. Illness, medications, and vision changes can also affect your balance. A fall could leave you unable to live on your own. To make your home safer, follow these tips: Floors Put nonskid pads under area rugs Remove throw rugs Replace worn floor coverings Tack carpets firmly to each step on carpeted stairs. Put nonskid strips on the edges of uncarpeted stairs Keep floors and stairs free of clutter and cords Arrange furniture so there are clear pathways Clean up any spills right away Bathrooms Install grab bars in the tub or shower Apply nonskid strips or put a nonskid rubber mat in the tub or shower Sit on a bath chair to bathe Use bathmats with nonskid backing Lighting Keep a flashlight in each room Put a nightlight along the pathway between the bedroom and the bathroom [employer] Patient Education Copyright 2008 - 2010 [employer] except where otherwise noted Preventing Falls: Exercises to Improve Balance, Flexibility, Strength, and Staying Power (This education is for all patients over 65 regardless of symptoms) Certain types of exercises may help make you less likely to fall. Try the ones below. Or do other exercises that your healthcare provider suggests. Depending on your health, you may need to start slowly. Dont let that stop you. Even small amounts of exercise can help you. Be sure to talk to yourhealthcare provider before starting any exercise program. Improve Balance Many types of exercise can help improve balance. Erick chi and yoga are good examples. Heres another one to try. You can do it anytime and almost anywhere. Stand next to a counter or solid support. Push yourself up onto your tiptoes. Hold for 5 seconds. If you start to lose your balance, hold on to the counter. Rest and repeat 5 times. Work up to holding for 20 to 30 seconds, if you can. Increase Flexibility Being more flexible makes it easier for you to move around safely. Try exercises like the seated hamstring stretch. Sit in a chair and put one foot on a stool. Straighten your leg and reach with both hands down either side of your leg. Reach as far down your leg as you can. Hold for about 20 seconds. Go back to the starting position. Then repeat 5 times. Switch legs. Build Strength Resistance exercises help build strength. You can do them without equipment. Or you can use weights, elastic bands, or special machines. One such exercise is called the biceps curl. You can hold a 1 pound weight or even a can of soup. Do this exercise at least 3 times a week. Strive for everyday. Sit up straight in a chair. Keep your elbow close to your body and your wrist straight. Bend your arm, moving your hand up to your shoulder. Then slowly lower your arm. Repeat 5 times. Switch to the other arm. Build Your Staying Power Aerobic exercises make your heart and lungs stronger so you can keep moving longer. Walking and swimming are two of the best types of exercises you can do. Using a stationary bike is great, too. Find an aerobic exercise that you enjoy. Start slowly and build up. Even 5 minutes is helpful. Aimfor a goal of 30 minutes, at least 3 times a week. You dont have to do 30 minutes in one session. Break it up and walk a little throughout the day. More Helpful Tips Start easy. Slowly work up to doing more. Talk with your healthcare provider about the best exercises for you. Call senior centers or health clubs about exercise programs. If needed, have a family member watch you walk every so often to check your stability. Exercise with a friend. Choose an activity you both enjoy. Try exercises that you can do anytime, anywhere. Here are two examples. Have someone with you when you first try these: Practice walking by placing one foot right in front of the other. Stand up and sit down 10 times. Repeat this throughout the day. [employer] Patient Education Copyright 2008 [employer] except where otherwise noted. Preventing Falls: Moving Safely Using a Cane or Walker (This education is for all patients over 65 regardless of symptoms) Keep the cane away from your feet so you dont trip. A walking aid, such as a cane or walker, can help you stay more independent and avoid falls. Remember to keep your walking aid within easy reach when youre in a chair or in bed. And learn how to use it safely so you dont injure yourself. Using a Cane If you have a stronger side, hold the cane on that side. Get your balance. Move the cane and your weaker leg forward. Support your weight on both the cane and your weaker side. Step with your stronger leg. Start again from step 1. If youre using a folding walker, be sure you know how to lock it open. Check that its locked open before each use. Using a Walker Roll the walker (or lift it, if youre using one without wheels) forward about 12 inches. Step forward with your weaker leg first. Use the walker to help keep your balance. Bring your other foot forward to the center of the walker. Start again from step 1. Helpful Tips Check with your healthcare provider about the right walking aid to use. Ask about a walker with a seat attached. Check the tips of your cane or walker to make sure they have nonskid covers. Move slowly from room to room. Dont hilton. Sit down to get dressed. Use a jasmyn pack or backpack to keep your hands free. Get help for jobs that mean climbing, even on a stepstool. [employer] Patient Education Copyright 2008 - 2010 [employer] except where otherwise noted. Treating Urinary Incontinence in Men (This education is for all patients over 65 regardless of symptoms) You can't always control the release of urine. You may leak urine. Or you may not be able to hold your urine until you can get to a bathroom. This is called urinary incontinence. The problem can be managed. Talk to your doctor about your treatment options. Taking Medications Prescription medications may help you. They may: Help the sphincter to work better. (This is the muscle that closes to keep urine from leaking out of the bladder.) Help stop the bladder from mey too often to push urine out. Help the bladder muscles contract with more force. Help relax the sphincter muscle and allow urine to flow more freely. Making Changes to Your Routine Certain changes in your daily routine may help. These include: Avoiding caffeine and alcohol. Using timed voiding. This is following a schedule for drinking fluids and urinating. Doing Kegel exercises daily. These exercises involve tightening the muscles in your sphincter and around your bladder to help strengthen them. Your doctor can explain how to do them. Using a Catheter A catheter is a narrow tube that is inserted through the urethra into the bladder. It drains urine.A condom catheter covers the penis. It channels urine into a collection bag. It is worn most of thetime. Intermittent catheterization means inserting a catheter to drain the bladder, then removing it. This is done on a regular schedule. Having Surgery If other options don't work, surgery may be recommended. If surgery is an option, your healthcare provider can discuss it with you and explain its risks and benefits. Healing After Prostate Surgery Surgery on the prostate gland can cause incontinence. Most often, the incontinence is only for a short time. It clears up when healing is complete. Very rarely, prostate surgery can result in permanent incontinence. documented in this encounter Progress Notes * Pramod Damian MD - 06/07/2023 4:49 PM EST Subjective: Brady David is a 83 year old male here today for Chief Complaint Patient presents with Status Check Diverticulitis Patient presents for an acute visit with concerns for diverticulitis. He reports 5 to 7 days of bilateral lower abdominal pain. Reports it feels similar to in the past when he has been diagnosed withdiverticulitis. He states he had some Augmentin at home so has been taking it the last few days anddoes feel as though his pain is improving. States he does not have pain at the current time. Denies melena, hematochezia, nausea, vomiting, fever. Past Medical History: Diagnosis Date Anxiety BPH without obstruction/lower urinary tract symptoms CHF (congestive heart failure) ([facility]) COPD (chronic obstructive pulmonary disease) ([facility]) DM type 2, goal A1C below 8.0 [...] performed by Miquel Mendoza MD at [facility] INFORMATION 1998 back surgery - "chipped bone away" INFORMATION 2009 Heart Cath INFORMATION Thyroidectomy. INSER ERICKA CAT,W/O PUMP;5YR/OLD Right 11/05/2022 INSERT TUNNELED CENTRAL VENOUS CATHETER AGE 6 OR OLDER performed by Bill Hansen DO at OR [facility] IR VENOUS ACCESS NON-MEDIPORT 09/03/2022 IR VENOUS ACCESS NON-MEDIPORT 10/22/2022 IR VENOUS ACCESS NON-MEDIPORT 12/24/2022 LAPAROSCOPY, W/ INSERT INTRAPERITONEAL CATH N/A 08/25/2022 LAPAROSCOPIC INSERTION INTRAPERITONEAL CANNULA OR CATHETER performed by Willie Musa MD at OR [facility] LUMBAR SPINE FUSION, POST INTERBODY 12/08/2012 Torreti PROSTATE CRYOABLATION 11/15/2008 CRYOSURGICAL ABLATION OF PROSTATE performed by MIKE CORBETT at [facility] REMOVAL OF THYMUS GLAND 05/10/2000 REPAIR INITIAL INGUINAL HERNIA REDUCIBLE AGE 5 OR MORE Right 11/12/2022 REPAIR INITIAL INGUINAL HERNIA REDUCIBLE AGE 5 OR MORE performed by Willie Musa MD at OR [facility] REVISION OF ULNAR NERVE AT ELBOW Review of patient's allergies indicates: Allergen Reactions Doxazosin Mesylate Other (Please comment) Citalopram Clonidine Hydrochloride Nausea/vomiting Nightmares, nervousness Reaction depending on brand!!! Must be produced by [employer] [facility] Hctz [Hydrochlorothiazide] Hyponatremia Hydralazine Diarrhea, testicular pain Januvia [Sitagliptin] Other (Please comment) Restlessness Lisinopril Cough Losartan Other (Please comment) Other Allergy (See Comments) Pt states he had reactions to many other medications, but does not know their names. Was encouraged to provide us with names. Statins myalgias on zocor Current Outpatient Medications Medication Sig Dispense Refill Blood Glucose Monitoring Suppl (ONETOUCH VERIO) w/Device KIT Use up to 4 times a day 1 Kit 0 ONETOUCH DELICA LANCETS [facility] Use four times daily 100 Each 11 Allopurinol 100 MG Oral Tablet (Zyloprim) Take 1 Tablet by mouth in the morning. Do not start before August 27, 2022. 30 Tablet 3 Renal Vitamin 0.8 MG Oral Tablet Take by mouth. [email or web address] In Vitro Strip (Glucose Blood) USE UP [...] by mouth at bedtime. 31 Capsule 5 glipiZIDE ER 10 MG Oral Tablet Extended Release 24 Hour (glipiZIDE XL) Take 1 Tablet by mouth in the morning. 30 minutes before a meal.. (Patient not taking: Reported on 05/18/2023) 30 Tablet 5 Lactulose 10 GM/15ML Oral Solution (Constulose) TAKE 15 ML BY MOUTH TWICE A DAY NEEDED FOR SEVERE CONSTIPATION (Patient not taking: Reported on 05/18/2023) 237 mL 3 Ventolin HFA 108 (90 [...] this visit. Objective: BP 132/68 | Pulse 71 | Temp 36.5 C (97.7 F) (Temporal Artery) | Resp 20 | Ht 1.702 m(5' 7") | SpO2 98% | BMI 30.07 kg/m | BSA 2.03 m GEN: NAD HEENT: Benign NECK: Supple with no LAD, TM, JVD CHEST: CTA B CV: RRR ABD: Soft, NT/ND, No HSM, NABS EXT: No c,c,e Assessment and Plan: Lower abdominal pain (Primary) Risk and functional assessment ESRD on peritoneal dialysis (HCC) Chronic diastolic congestive heart failure (HCC) Chronic obstructive pulmonary disease, unspecified COPD type (HCC) Persistent atrial fibrillation (HCC) Type 2 diabetes mellitus with chronic kidney disease on chronic dialysis, without long-term currentuse of insulin (HCC) Panic disorder Hypertensive heart disease without congestive heart failure Cyst of pancreas Acquired hypothyroidism Hyperparathyroidism, secondary renal (HCC) Renal osteodystrophy Other orders - Amoxicillin-Pot Clavulanate 500-125 MG Oral Tablet (Augmentin); Take 1 Tablet by mouth in the morning and 1 Tablet before bedtime. Do all this for 7 days. -exam right now is unremarkable. Suspect he likely did not have diverticulitis. However, patient has taken a few days of Augmentin and that could be the reason for his symptoms to be improving. We have agreed that he should complete a course of Augmentin. Dosed for current renal function. Call fornew or worsening symptoms or return of significant abdominal pain. Chronic medical issues relatively stable. No other medication changes. 32 min with pt and chart review. Pramod Damian MD documented in this encounter Nursing Notes * Rosenda Wright LPN - 05/18/2023 2:40 PM EST The patient has been properly identified by confirmation of name and date of . Chief Complaint Patient presents with Status Check Diverticulitis Past 5-7 days has had terrible pain in both sides, no pain today. documented in this encounter Plan of Treatment Upcoming Encounters Date Type Department Care Team (Late st Contact Info) Description 07/26/2023 9:00 AM EDT Imaging [facility] [address] 09/07/2023 2:20 PM EDT Office Visit Podiatry [facility] 132 [facility] [place] [address] Magalie Parker DPM [address] [place] [address] 09/07/2023 5:40 PM EDT Office Visit [facility] [address] [place] [phone] Pramod Damian MD [address] [place] [address] Health Maintenance Due Date Last Done Comments [...] this encounter Medical Devices Implanted Type Area Drywall Installer Device Identifier Shelf Expiration Date Model / Serial / Lot Mesh Flat Sheet 1x4 [id number] - [id number] Implanted:Qty: 1 on 11/12/2022 by Willie Musa MD at OR [facility] Right: Groin CR BARD : DAVOL 09/04/2025 [id number] / / [id number] documented as of this encounter Visit Diagnoses Diagnosis Lower abdominal pain- Primary Abdominal pain, other specified site Risk and functional assessment Screening for unspecified condition ESRD on peritoneal dialysis (HCC) End stage renal disease Chronic diastolic congestive heart failure (HCC) Chronic diastolic heart failure Chronic obstructive pulmonary disease, unspecified COPD type (HCC) Persistent atrial fibrillation (HCC) Atrial fibrillation Type 2 diabetes mellitus with chronic kidney disease on chronic dialysis, without long-term current use of insulin (HCC) Panic disorder Panic disorder without agoraphobia Hypertensive heart disease without congestive heart failure Unspecified hypertensive heart disease without heart failure Cyst of pancreas Cyst and pseudocyst of pancreas Acquired hypothyroidism Unspecified hypothyroidism Hyperparathyroidism, secondary renal (HCC) Secondary hyperparathyroidism (of renal origin) Renal osteodystrophy documented in this encounter Advance Directives Latest [...] the patient have Health Care Power of Concrete Layer? No Care Teams Neurology Teacher Relationship Specialty Start Date End Date Pramod Damian MD [address] [place] [address] PCP - General 04/10/02 documented as of this encounter
--- OUTSIDE RECORDS SUMMARY | 2023-08-22 12:04 | External Medical Summary | Summary of Care ---
Author Name Unknown Organization [facility] Address [address] [place] [address] Phone [phone] Care Team Providers Care Electric Blanket Packer Name Role Phone Neville David MD Primary Care Provider +1- [phone] Encounter Details Date Type Department Care Team (Late st Contact Info) Description 04/19/[address] [facility] [address] [place] [address] Neville David MD [address] [place] [address] Allergies Active Allergy Reactions Criticality Noted Date Comments Citalopram 04/20/2014 Clonidine Hydrochloride Nausea/vomiting 008 Nightmares, nervousness Reaction depending on brand!!! Must be produced by [employer] Elizabe Doxazosin Mesylate Other (Please comment) High [...] as of this encounter (statuses as of 04/19/2023) Medications Medication Sig Dispensed Refills Start Date End Date Status Blood Glucose Monitoring Suppl (Shutter GuardianTOTopFachhandel UG VERpowervault) w/Device KIT Use up to 4 times [...] a meal.. 30 Tablet 5 10/08/2022 Active OneTouch Verio In Vitro Strip (Glucose Blood)Indications :Type 2 [...] and 1 Capsule before bedtime. 0 Active Levothyroxine Sodium 150 MCG Oral Tablet (Levoxyl)Indicati ons:Acquired hypothyroidism,El evated TSH Take 1 Tablet by mouth daily first thing in the morning. (at least 30 min prior to breakfast or other meds) 90 Tablet 3 02/19/2023 Active Ventolin HFA 108 (90 Base) MCG/ACT Inhalation Aerosol SolutionIndicatio ns:LRTI (lower respiratory tract infection) Inhale 2 Puffs by mouth every 4 hours as needed for Wheezing or Dyspnea. 1 g 0 02/27/2023 Active Potassium Chloride ER 20 MEQ Oral Tablet [...] mouth daily. 30 Tablet 5 03/26/2023 Active Cyclobenzaprine HCl 5 MG Oral Tablet (Flexeril) Take 1 Tablet by mouth in the morning and 1 Tablet at noon and 1 Tablet before bedtime. 90 Tablet 2 04/03/2023 Active Terazosin HCl 1 MG Oral Capsule (Hytrin) Take 1 Capsule by mouth at bedtime. 31 Capsule 5 04/07/2023 Active Gabapentin 100 MG Oral Capsule (Neurontin) Take 1 Capsule by mouth in the morning and 1 Capsule before bedtime. 60 Capsule 1 04/19/2023 Active Gabapentin 100 MG Oral Capsule (Neurontin) Take 1 Capsule by mouth in the morning and 1 Capsule at noon and 1 Capsule before bedtime. 90 Capsule 1 03/25/2023 3 Discontinue d(Refill) Gabapentin 300 MG Oral Capsule (Neurontin) Take 1 Capsule by mouth in the morning and 1 Capsule at noon and 1 Capsule before bedtime. 90 Capsule 3 03/30/2023 3 Discontinue d(Medicatio n/Dose Changed) documented as of this encounter (statuses as of 04/19/2023) Active Problems Problem Noted Date Diagnosed Date Hypertensive heart and chron ic kidney disease [...] 2 Chronic diastolic congestive heart failure 03/17 Chronic obstructive pulmonary disease 03/17/2022 Cyst of pancreas 03/17/2022 Hyperparathyroidism, secondary renal [...] as of this encounter (statuses as of 04/19/2023) Resolved Problems Problem Noted Date Diagnosed Date Resolved Date Stage 3 chronic kidney disease 11/11/2018 04/27/2022 [...] as of this encounter (statuses as of 04/19/2023) Immunizations Name Administration Dates Next Due COVID-19 mRNA, LNP-s, No Pre serve, 2-Dose Series (Pfizer) 02/20/2021,01/30/2021 Pneumococcal Conjugate Vacc, 13 Valent (Prevnar) 01/26/2018 Pneumococcal Polysaccharide PPV23 (Pneumovax) 01/30/2006 SEASONAL INFLUENZA, PF, 6 M & Above, IM , (FLULAVAL or FLUZONE) 02/07/2020,02/03/2019,01/26/2018,02/0803/01/2018 Seasonal Influenza, Quadriva lent Hd (Fluzone [...] Telephone Encounter - Neville David MD - 04/19/2023 4:32 PM ESTSigned Prescriptions: Disp Refills Gabapentin 100 MG Oral Capsule (Neurontin) 60 Cap*1 Sig: Take 1 Capsule by mouth in the morning and 1 Capsule before bedtime.Authorizing Provider: NEVILLE DAVID * Telephone Encounter - Yan Dickey, [facility] - 04/19/2023 11:02 AM EST Confirmed patient takes gabapentin 100 twice daily. He no longer takes gabapentin 300 mg. Please approve gabapentin 100 mg is appropriate. Did you pend patient's preferred pharmacy and medication before forwarding?yes Pharmacy: [id number] [facility] Pending Prescriptions: Disp Refills Gabapentin 100 MG Oral Capsule (Neurontin)60 Cap*1 Sig: Take 1 Capsule by mouth in the morning and 1 Capsule before bedtime. Last Visit: 04/08/2023 (in office), Visit date not found (telemedicine) Next Visit: 09/07/2023 If no future appointments scheduled, and last appointment is greater than a year ago, please schedule patient for a follow-up appointment Last date the medication was ordered: 03/25/2023 Is this request for a controlled substance?No Urine Drug Screen:No results found. However, due to the size of the patient record, not all encounters were searched. Please check Results Review for a complete set of results. Patient Phone Numbers Labs: Lab Results Component Value Date/Time CREAT 5.1 (H) 12/02/2022 10:58 AM CREAT 2.6 (H) 05/09/2020 07:43 AM POTASSIUM 3.8 12/02/2022 10:58 AM POTASSIUM 4.1 05/09/2020 07:43 AM TSH 4.86 (H) 04/08/2023 02:21 PM TSH 3.23 05/09/2020 07:43 AM LDLCALC 110 02/07/2020 08:36 AM LDLDIRECT 84 01/06/2022 11:24 AM LDLDIRECT 95 05/09/2020 07:42 AM LDLDIRECT 134 (H) 07/27/2013 10:37 AM ALT 35 10/24/2022 09:50 PM ALT 30 05/09/2020 07:43 AM HGBA1C 8.5 (H) 02/19/2023 09:07 AM HGBA1C 8.3 (H) 05/09/2020 07:43 AM * Telephone Encounter - Monica Hernandez CPhT - 04/19/2023 10:53 AM EST Patient calling to request Gabapentin 100mg 1 tablet BID , he is not taking 300mg Thank you, Monica Hernandez Computer Artist II [facility] Services ([facility]PS) (formerly Telepharmacy) 04/19/2023 10:58 AM documented in this encounter Plan of Treatment Upcoming Encounters Date Type Department Care Team (Late st Contact Info) Description 05/18/2023 2:00 PM EST Office Visit Podiatry [facility] [address] [address] Magalie Parker DPM [address] [address] 06/02/2023 1:30 PM EST Office Visit Cardiology, [facility] [address] [facility] [place] [place] [address] Bill Palencia PA-C [address] [place] [address] 07/26/2023 9:00 AM EDT Imaging Radiology [facility] [address] [place] [address] 09/07/2023 5:40 PM EDT Office Visit Family [facility] [place] [address] [place] [address] Neville David MD [address] [place] [address] Health Maintenance Due Date Last Done Comments [...] this encounter Medical Devices Implanted Type Area Energy And Conservation Technician Device Identifier Shelf Expiration Date Model / Serial / Lot Mesh Flat Sheet 1x4 [id number] - [id number] Implanted:Qty: 1 on 11/12/2022 by Willie Musa MD at OR [facility] Right: Groin CR BARD : DAVOL 09/04/2025 [id number] / / [id number] documented as of this encounter Advance Directives [...] the patient have Health Care Power of Textile Chemist? No Care Teams Electric Blanket Packer Relationship Specialty Start Date End Date Neville David MD [address] [place] [address] PCP - General 04/10/02 documented as of this encounter
--- OUTSIDE RECORDS SUMMARY | 2023-08-22 12:04 | External Medical Summary | Summary of Care ---
Author Name Unknown Organization [facility] Address [address] [place] [address] Phone [phone] Care Team Providers Care Groundwater Consultant Name Role Phone Pramod Damian MD Primary Care Provider +1- [phone] Reason for Visit * Reason Onset Date Comments Advice 03/25/2023 Encounter Details Date Type Department Care Team (Late st Contact Info) Description 03/25/2023 Telephone [facility] [address] [place] [address] Donnie Anderson MD [address] [place] [address] Advice Allergies Active Allergy Reactions Criticality Noted Date [...] as of this encounter (statuses as of 04/02/2023) Medications Medication Sig Dispensed Refills Start Date End Date Status Blood Glucose Monitoring Suppl ([employer] VERXingshuai Teach) w/Device KIT Use up to 4 times [...] the morning. 60 Tablet 3 03/05/2023 Active Clotrimazole-Beta methasone 1-0.05 % External Lotion (Lotrisone)Indica tions:Balanitis Apply topically to affected area 2 times a day for 28 days. To affected area for 4 weeks, or until healed. 30 mL 1 03/20/2023 3 Active Apixaban 2.5 MG Oral Tablet (Eliquis) Take 1 Tablet by mouth in the morning and 1 Tablet before bedtime. 60 Tablet 5 03/21/2023 Active Torsemide 100 MG Oral Tablet (Demadex) Take 1 Tablet by mouth in the morning. 30 Tablet 5 03/22/2023 Active Gabapentin 100 MG Oral Capsule (Neurontin) Take 1 Capsule by mouth in the morning and 1 Capsule at noon and 1 Capsule before bedtime. 90 Capsule 1 03/25/2023 Active Cyclobenzaprine HCl 5 MG Oral Tablet (Flexeril) Take 1 Tablet by mouth in the morning and 1 Tablet before bedtime. 30 Tablet 1 03/25/2023 3 Discontinue d(Refill) documented as of this encounter (statuses as of 04/02/2023) Active Problems Problem Noted Date Diagnosed Date [...] as of this encounter (statuses as of 04/02/2023) Resolved Problems Problem Noted Date Diagnosed Date Resolved Date Stage 3 chronic kidney disease 11/11/2018 04/27/2022 Hypertensive heart and kidne y disease with chronic diastolic congestive heart failure and stage 3 chronic kidney disease 06/30/201812/14 HTN, goal below 150/90 07/20/201702/23 Kidney disease, chronic, sta ge III (GFR 30-59 ml/min) 05/18/2016 07/19/2018 Overview: Per CKD protocol #1 Hypertensive heart disease w [facility] congestive heart failure 08/27/2014 08/27/2014 Hypertensive heart disease w [facility] congestive heart failure 08/27/2014 05/25/2019 Overview: duplicate [...] as of this encounter (statuses as of 04/02/2023) Immunizations Name Administration Dates Next Due COVID-19 mRNA, LNP-s, No Pre serve, 2-Dose Series (A[employer]) 02/20/2021,01/30/2021 Pneumococcal Conjugate Vacc, 13 Valent (Prevnar) [...] encounter Miscellaneous Notes * Telephone Encounter - Magalie Nair LPN - 03/26/2023 10:16 AM EST Patient returned call. Informed of message. Verbalized understanding. * Telephone Encounter - Kelly Land MED ASSIST - 03/26/2023 9:20 AM EST Tried to call pt. No answer. Left message to call back. Please advise previous message. * Telephone Encounter - Donnie Anderson MD - 03/25/2023 3:32 PM EST Please advise pt to get diabetic eye exam on routine visit in 2 wks documented in this encounter Plan of Treatment Upcoming Encounters Date Type Department Care Team (Late st Contact Info) Description 04/08/2023 1:20 PM EST Office Visit [facility] [address] [place] [address] Pramod Damian MD [address] [place] [address] 06/02/2023 1:30 PM EST Office Visit Cardiology, [facility] [place] [address] Bill Palencia PA-C [address] [place] [address] 07/26/2023 9:00 AM EDT Imaging Radiology [facility] [address] [place] [address] Health Maintenance Due Date Last Done Comments [...] PAST YEAR FOR COPD 11/13/2023 11/12/2022 TSH 03/03/2024 03/03/2023, 02/07, 12/02/2022, Additional history exists Pneumococcal Vaccine: 65+ Years [...] this encounter Medical Devices Implanted Type Area Facility Mechanic Device Identifier Shelf Expiration Date Model / Serial / Lot Mesh Flat Sheet 1x4 [id number] - [id number] Implanted:Qty: 1 on 11/12/2022 by Willie Musa MD at OR [facility] Right: Groin CR BARD : DAVOL 09/04/2025 [id number] / / [id number] documented as of this encounter Advance Directives [...] the patient have Health Care Power of Mold Shop Supervisor? No Care Teams Groundwater Consultant Relationship Specialty Start Date End Date Pramod Damian MD [address] [facility] [address] PCP - General 04/10/02 documented as of this encounter
--- OUTSIDE RECORDS SUMMARY | 2023-08-22 12:04 | External Medical Summary | Summary of Care ---
Author Name Unknown Organization [facility] Address [address] [place] [address] Phone [phone] Care Team Providers Care Tar Processing Technician Name Role Phone Pramod Damian MD Primary Care Provider +1- [phone] Reason for Visit * Reason Comments Outpatient Testing Encounter Details Date Type Department Care Team (Late st Contact Info) Description 04/08/2023 2:20 PM EST Laboratory [facility], [place] [address] [place] [address] [place] [address] [place] [address] Vitamin D deficiency; Acquired hypothyroidism Allergies Active Allergy Reactions Criticality [...] as of this encounter (statuses as of 04/08/2023) Medications Medication Sig Dispensed Refills Start Date End Date Status Blood Glucose Monitoring Suppl ([employer] VER[employer]ourage Medical [employer]) w/Device KIT Use up to 4 times [...] Active OneTouch Verio In Vitro Strip (Glucose Blood)Indications: Type 2 [...] Active Levothyroxine Sodium 150 MCG Oral Tablet (Levoxyl)Indicatio ns:Acquired hypothyroidism,Smita vated TSH Take 1 Tablet by mouth daily [...] the morning. 60 Tablet 3 03/05/2023 Active Clotrimazole-Betam ethasone 1-0.05 % External Lotion (Lotrisone)Indicat ions:Balanitis Apply topically to affected area 2 times a day for 28 days. To affected area for 4 weeks, or until healed. 30 mL 1 03/20/2023 04/17/2023 Active Apixaban 2.5 MG Oral Tablet (Eliquis) [...] before bedtime. 90 Capsule 1 03/25/2023 Active Metoprolol Succinate ER 25 MG Oral Tablet Extended Release 24 Hour (toPROL XL) Take 0.5 Tablets by mouth daily. 30 Tablet 5 03/26/2023 Active Gabapentin 300 MG Oral Capsule (Neurontin) Take 1 Capsule by mouth in the morning and 1 Capsule at noon and 1 Capsule before bedtime. 90 Capsule 3 03/30/2023 Active Additional Information Patient taking differently:300 mg Oral TID(AM/NOON/HS), 100mg in the [id number] at night time, Reported on 04/08/2023 Cyclobenzaprine HCl 5 MG Oral Tablet (Flexeril) Take 1 Tablet by mouth in the morning and 1 Tablet at noon and 1 Tablet before bedtime. 90 Tablet 2 04/03/2023 Active Terazosin HCl 1 MG Oral Capsule (Hytrin) Take 1 Capsule by mouth at bedtime. 31 Capsule 5 04/07/2023 Active documented as of this encounter (statuses as of 04/08/2023) Active Problems Problem Noted Date Diagnosed Date [...] as of this encounter (statuses as of 04/08/2023) Resolved Problems Problem Noted Date Diagnosed Date [...] failure 08/27/2014 08/27/2014 Hypertensive heart disease w [facility] congestive heart failure 08/27/2014 05/25/2019 [...] as of this encounter (statuses as of 04/08/2023) Immunizations Name Administration Dates Next Due COVID-19 [...] 05/18/2023 2:00 PM EST Office Visit Podiatry [facility] [address] [address] Magalie Parker DPM [address] [place] [address] 06/02/2023 1:30 PM EST Office Visit Cardiology, [facility] [address] [address] Bill Palencia PA-C [address] [place] [address] 07/26/2023 9:00 AM EDT Imaging Radiology [facility] [address] [place] [address] 09/07/2023 5:40 PM EDT Office Visit [facility] [address] [place] [facility] [place] [id number] Pramod Damian MD [address] [place] [address] Pending Results Name Type Priority Associated Diagnoses Date /Time 25-HYDROXY VITAMIN D Lab Routine Vitamin D deficiency 04/08/2023 2:21 PM EST TSH WITH FREE T4 IF INDICATED Lab Routine Acquired hypothyroidism 04/08/2023 2:21 PM EST Health Maintenance Due Date Last Done Comments [...] this encounter Medical Devices Implanted Type Area Bowling Pin Refinisher Device Identifier Shelf Expiration Date Model / Serial / Lot Mesh Flat Sheet 1x4 [id number] - [id number] Implanted:Qty: 1 on 11/12/2022 by Willie Musa MD at OR [facility] Right: Groin CR BARD : DAVOL 09/04/2025 [id number] / / [id number] documented as of this encounter Visit Diagnoses Diagnosis Vitamin D deficiency Unspecified vitamin D deficiency Acquired hypothyroidism Unspecified hypothyroidism documented in this [...] the patient have Health Care Power of Tile And Marble Setter? No Care Teams Tar Processing Technician Relationship Specialty Start Date End Date Pramod Damian MD [address] [place] [address] PCP - General 04/10/02 documented as of this encounter
--- OUTSIDE RECORDS SUMMARY | 2023-08-22 12:04 | External Medical Summary | Summary of Care ---
Author Name Unknown Organization [facility] Address [address] [place] [place] [address] Phone [phone] Care Team Providers Care Student Accounts Manager Name Role Phone Neville David MD Primary Care Provider +1- [phone] Reason for Visit * Reason Onset Date Comments Medication Refill 07/09/2023 Encounter Details Date Type Department Care Team (Late st Contact Info) Description 07/09/[address] [facility] [address] [place] [address] Neville David MD [address] [place] [address] Allergies Active Allergy Reactions Criticality [...] as of this encounter (statuses as of 07/09/2023) Medications Medication Sig Dispensed Refills Start Date End Date Status Blood Glucose Monitoring Suppl (Dada) w/Device KIT Use up to 4 times [...] Additional Information Patient not taking.Reported on 05/18/2023 [employer] In Vitro Strip (Glucose Blood)Indications :Type 2 [...] Additional Information Patient not taking.Reported on 05/18/2023 Allopurinol 100 MG Oral Tablet (Zyloprim) Take 1 Tablet by mouth in the morning. 30 Tablet 5 07/09/2023 Active Allopurinol 100 MG Oral Tablet (Zyloprim) Take 1 Tablet by mouth in the morning. Do not start before August 27, 2022. 30 Tablet 3 08/27/2022 4 Discontinue d(Refill) documented as of this encounter (statuses as of 07/09/2023) Active Problems Problem Noted Date Diagnosed Date [...] as of this encounter (statuses as of 07/09/2023) Resolved Problems Problem Noted Date Diagnosed Date [...] as of this encounter (statuses as of 07/09/2023) Immunizations Name Administration Dates Next Due COVID-19 [...] Telephone Encounter - Neville David MD - 07/09/2023 4:28 PM ESTSigned Prescriptions: Disp Refills Allopurinol 100 MG Oral Tablet (Zyloprim) 30 Tab*5 Sig: Take 1 Tablet by mouth in the morning.Authorizing Provider: NEVILLE DAVID * Telephone Encounter - Rosenda Wright LPN - 07/09/2023 2:34 PM ESTPending Prescriptions: Disp Refills Allopurinol 100 MG Oral Tablet (Zyloprim) 30 Tab*3 Sig: Take 1 Tablet by mouth in the morning. * Telephone Encounter - Patricia Melgar PHARM Tech - 07/09/2023 1:00 PM EST Patient calling requesting refills for allopurinol 100 mg . Upon chart review, medication was last prescribed by hospital. Pt did schedule a hospital follow up visit. Please advise if you wish to continue this therapy for the patient. Thank you, Patricia Melgar, [facility] Sanitizer II Centralized Clinical Pharmacy Services(CCPS)(Formerly Telepharmacy) 07/09/2023,1:01 PM documented in this encounter Plan of Treatment Upcoming Encounters Date Type Department Care Team (Late st Contact Info) Description 07/26/2023 9:00 AM EDT Imaging Radiology [facility] [address] [place] [address] 09/07/2023 2:20 PM EDT Office Visit Podiatry [facility] [address] [place] [address] Magalie Parker DPM [address] [place] [address] 09/07/2023 5:40 PM EDT Office Visit [facility] [address] [place] [address] Neville David MD [address] [place] [address] Health Maintenance Due Date Last Done Comments [...] this encounter Medical Devices Implanted Type Area Corrosion Prevention Metal Sprayer Device Identifier Shelf Expiration Date Model / Serial / Lot Mesh Flat Sheet 1x4 [id number] - [id number] Implanted:Qty: 1 on 11/12/2022 by Willie Musa MD at OR [facility] Right: Groin CR BARD : DAVOL 09/04/2025 [id number] / / [id number] documented as of this encounter Advance Directives [...] the patient have Health Care Power of Band Sawing Machine Operator? No Care Teams Student Accounts Manager Relationship Specialty Start Date End Date Neville David MD [address] [place] [address] PCP - General 04/10/02 documented as of this encounter
--- OUTSIDE RECORDS SUMMARY | 2023-08-22 12:04 | External Medical Summary ---
Author Name Unknown Address Unknown Organization [id number][place] [place] [address] [place] [address] Laboratory Report Ordering Provider Test Date Status FRANKIE LOZADA 04/08/2023 14:21:22 Final Observation Date Value Abnormality Reference (Units ) Status TSH 04/08/2023 14:21:22 4.86 Above high normal 0. 27-4.20 (uIU/mL) Final Performing Location [facility] [place] [address] [place] [address]
--- OUTSIDE RECORDS SUMMARY | 2023-08-22 12:04 | External Medical Summary | Summary of Care ---
Author Name Unknown Organization [facility] Address [address] [place] [address] Phone [phone] Care Team Providers Care Gold Reclaimer Name Role Phone Neville David MD Primary Care Provider +1- [phone] Reason for Visit * Reason Comments eRx-Medication Refill Encounter Details Date Type Department Care Team (Late st Contact Info) Description 05/01/2023 Refill [facility] [address] [place] [address] Neville David MD [address] [place] [address] Acquired hypothyroidism; Elevated TSH Allergies Active Allergy Reactions Criticality Noted Date [...] as of this encounter (statuses as of 05/03/2023) Medications Medication Sig Dispensed Refills Start Date End Date Status Blood Glucose Monitoring Suppl (Symcircle VERiPAYst) w/Device KIT Use up to 4 times a day 1 Kit 0 8 Active ONETOUCH DELICA LANCETS FINE MISC Use four times daily 100 Each 11 0 Active Allopurinol 100 MG Oral Tablet (Zyloprim) Take 1 Tablet by mouth in the morning. Do not start before August 27, 2022. 30 Tablet 3 3 Active Renal Vitamin 0.8 MG Oral Tablet Take by mouth. 0 Active glipiZIDE ER 10 MG Oral Tablet Extended Release 24 Hour (glipiZIDE XL) Take 1 Tablet by mouth in the morning. 30 minutes before a meal.. 30 Tablet 5 3 Active OneTouch Verio In Vitro Strip (Glucose Blood)Indications :Type 2 diabetes mellitus with hemoglobin A1c goal of less than 8.0% ([facility]) USE UP TO FOUR TIMES A DAY 400 Strip 3 3 Active glipiZIDE 10 MG Oral Tablet (Glucotrol) Take 1 Tablet by mouth in the morning and 1 Tablet before bedtime. 30 minutes before a meal. 180 Tablet 3 3 Active Lactulose 10 GM/15ML Oral Solution (Constulose)Indic ations:Other constipation TAKE 15 ML BY MOUTH TWICE A DAY NEEDED FOR SEVERE CONSTIPATION 237 mL 3 3 Active Docusate Sodium 100 MG Oral Capsule Take 1 Capsule by mouth in the morning and 1 Capsule before bedtime. 0 Active Ventolin HFA 108 (90 Base) MCG/ACT Inhalation Aerosol SolutionIndicatio ns:LRTI (lower respiratory tract infection) Inhale 2 Puffs by mouth every 4 hours as needed for Wheezing or Dyspnea. 1 g 0 3 Active Potassium Chloride ER 20 MEQ Oral Tablet Extended Release Take 2 Tablets by mouth in the morning. 60 Tablet 3 3 Active Apixaban 2.5 MG Oral Tablet (Eliquis) Take 1 Tablet by mouth in the morning and 1 Tablet before bedtime. 60 Tablet 5 3 Active Torsemide 100 MG Oral Tablet (Demadex) Take 1 Tablet by mouth in the morning. 30 Tablet 5 3 Active Metoprolol Succinate ER 25 MG Oral Tablet Extended Release 24 Hour (toPROL XL) Take 0.5 Tablets by mouth daily. 30 Tablet 5 3 Active Cyclobenzaprine HCl 5 MG Oral Tablet (Flexeril) Take 1 Tablet by mouth in the morning and 1 Tablet at noon and 1 Tablet before bedtime. 90 Tablet 2 3 Active Terazosin HCl 1 MG Oral Capsule (Hytrin) Take 1 Capsule by mouth at bedtime. 31 Capsule 5 3 Active Gabapentin 100 MG Oral Capsule (Neurontin) Take 1 Capsule by mouth in the morning and 1 Capsule before bedtime. 60 Capsule 1 3 Active Levothyroxine Sodium 150 MCG Oral Tablet (Levoxyl)Indicati ons:Acquired hypothyroidism,El evated TSH TAKE 1 TABLET BY MOUTH EVERY MORNING AT LEAST 30 MINUTES PRIOR TO BREAKFAST OR OTHER MEDS. 90 Tablet 1 3 Active Levothyroxine Sodium 150 MCG Oral Tablet (Levoxyl)Indicati ons:Acquired hypothyroidism,El evated TSH Take 1 Tablet by mouth daily first thing in the morning. (at least 30 min prior to breakfast or other meds) 90 Tablet 3 3 05/03/20 23 Discontinued documented as of this encounter (statuses as of 05/03/2023) Active Problems Problem Noted Date Diagnosed Date [...] as of this encounter (statuses as of 05/03/2023) Resolved Problems Problem Noted Date Diagnosed Date [...] CKD protocol #1 Hypertensive heart disease w [facility] congestive heart failure 08/27/2014 08/27/2014 Hypertensive [...] as of this encounter (statuses as of 05/03/2023) Immunizations Name Administration Dates Next Due COVID-19 mRNA, LNP-s, No Pre serve, 2-Dose Series (Sxbbm) 02/20/2021,01/30/2021 Pneumococcal Conjugate Vacc, 13 Valent (Prevnar) [...] encounter Miscellaneous Notes * Telephone Encounter - Fernando Baig RPh - 05/03/2023 9:55 AM ESTSigned Prescriptions: Disp Refills Levothyroxine Sodium 150 MCG Oral Tablet (*90 Tab*1 Sig: TAKE 1 TABLET BY MOUTH EVERY MORNING AT LEAST 30 MINUTES PRIOR TO BREAKFAST OR OTHER MEDS.Authorizing Provider: NEVILLE DAVID User: FERNANDO BAIG * Telephone Encounter - Fernando Baig RPh - 05/03/2023 9:52 AM EST Patient's TSH is Elevated but free T4 is in normal range TSH Results: Lab Results Component Value Date/Time TSH - [facility] 4.86 (H) 04/08/2023 02:21 PM TSH - [facility] 3.23 05/09/2020 07:43 AM T4, FREE - [facility] Date Value Ref Range Status 04/08/2023 1.0 0.9 - 1.7 ng/dL Final 03/27/2020 1.31 0.9 - 1.7 ng/dL Final [facility] Date Value Ref Range Status 04/08/2023 1.0 0.9 - 1.7 ng/dL Final Re-sent balance of 02/19/23 RX. Approved until upcoming Follow up scheduled for 09/07/23 Fernando Mcgarry Rph, Pharm D. Clinical Pharmacist Centralized Clinical [facility]acy Services (Formerly Telepharmacy)/[facility] [phone] 05/03/2023,9:52 AM * Telephone Encounter - Interface, E-Rx Ss Inbound - 05/03/2023 6:14 AM EST Pending Prescriptions: Disp Refills Levothyroxine Sodium 150 MCG Oral Tablet [*90 Tab*0 Sig: TAKE 1TABLET BY MOUTH EVERY MORNING AT LEAST 30 MINUTES PRIOR TO BREAKFAST OR OTHER MEDS. documented in this encounter Plan of Treatment Upcoming Encounters Date Type Department Care Team (Late st Contact Info) Description 05/18/2023 2:00 PM EST Office Visit Podiatry [facility] [address] [address] Magalie Parker DPM [address] [address] 06/09/2023 10:00 AM EST Office Visit Cardiology, [facility] [address] [address] Kierra Guerra PA-C [address] [address] 07/26/2023 9:00 AM EDT Imaging Radiology [facility] [address] [address] 09/07/2023 5:40 PM EDT Office Visit [address] [place] [address] Neville David MD [address] [facility] [place] [id number] Health Maintenance Due Date Last Done Comments [...] this encounter Medical Devices Implanted Type Area Group Chief Operator Device Identifier Shelf Expiration Date Model / Serial / Lot Mesh Flat Sheet 1x4 [id number] - [id number] Implanted:Qty: 1 on 11/12/2022 by Willie Musa MD at OR [facility] Right: Groin CR BARD : KYRA 09/04/2025 [id number] / / [id number] documented as of this encounter Visit Diagnoses Diagnosis Acquired hypothyroidism Unspecified hypothyroidism Elevated TSH Other abnormal blood chemistry documented in this encounter Advance Directives Latest [...] the patient have Health Care Power of Manager Care? No Care Teams Gold Reclaimer Relationship Specialty Start Date End Date Neville David MD [address] [place] [address] PCP - General 04/10/02 documented as of this encounter
--- OUTSIDE RECORDS SUMMARY | 2023-08-22 12:04 | External Medical Summary | Summary of Care ---
Author Name Unknown Organization [facility] Address [address] [place] [address] Phone [phone] Care Team Providers Care Frame Straightener Name Role Phone Pramod Damian MD Primary Care Provider +1- [phone] Reason for Referral * Evaluate & Treat - Unlimited Visits (Within 30 days (routine)) - Authorized Specialty Diagnoses / Procedures Referred By Cal dykes Referred To Contact Podiatry Diagnoses Encounter for nail care Pramod Damian MD [address] [place] [address] Referral ID Status Reason Start Date Expiration Date Visits Requested Visits Authorized [id number] Authorized Specialty Services Required 3 [phone] Question Answer Referral Priority Within 30 days (routine) Where should this appointment be scheduled? [facility] Which condition are you referring this patient for? Routine Foot Care Medicare Patient? Yes Can Patient perform routine footcare without assistance? No Does patient have a chronic condition? Yes Has patient been seen in the past 6 months? Yes Date last seen for chronic condition: 04/08/2023 Who saw patient for chronic condition? Pramod Damian Reason for Visit * Reason Comments Follow Up 4 months return Encounter Details Date Type Department Care Team ([facility] st Contact Info) Description 04/08/2023 1:20 PM EST Office Visit [facility] [address] [place] [address] Pramod Damian MD [address] [place] [address] ESRD on peritoneal dialysis (HCC)*; Encounter for nail care; Acquired hypothyroidism; DYSLIPIDEMIA, GOAL LDL BELOW 100; Type 2 diabetes mellitus with chronic kidney disease on chronic dialysis, without long-term current use of insulin (HCC); Type 2 diabetes mellitus with hemoglobin A1c goal of less than 8.0% (HCC); Chronic diastolic congestive heart failure (HCC); Persistent atrial fibrillation (HCC); History of prostate cancer; History of thyroid cancer; Panic disorder; Anxiety Allergies Active Allergy Reactions Criticality Noted Date Comments Citalopram 04/20/2014 Clonidine Hydrochloride Nausea/vomiting 008 Nightmares, nervousness Reaction depending on brand!!! Must be produced by [employer] Elizabe Doxazosin Mesylate Other (Please comment) High [...] as of this encounter (statuses as of 04/26/2023) Medications Medication Sig Dispensed Refills Start Date [...] a meal.. 30 Tablet 5 10/08/2022 Active Giuliano Bain In Vitro Strip (Glucose Blood)Indications :Type 2 [...] at bedtime. 31 Capsule 5 04/07/2023 Active Clotrimazole-Beta methasone 1-0.05 % External Lotion (Lotrisone)Indica tions:Balanitis Apply topically to affected area 2 times a day for 28 days. To affected area for 4 weeks, or until healed. 30 mL 1 03/20/2023 3 Gabapentin 100 MG Oral Capsule (Neurontin) Take [...] as of this encounter (statuses as of 04/26/2023) Active Problems Problem Noted Date Diagnosed Date [...] as of this encounter (statuses as of 04/26/2023) Resolved Problems Problem Noted Date Diagnosed Date [...] CKD protocol #1 Hypertensive heart disease w [facility] congestive heart failure 08/27/2014 08/27/2014 Hypert[facility] heart [facility] congestive heart failure 08/27/2014 05/25/2019 [...] as of this encounter (statuses as of 04/26/2023) Immunizations Name Administration Dates Next Due COVID-19 [...] Sign Reading Time Taken Comments Blood Pressure 132/80 04/08/2023 1:20 PM EST Pulse 80 04/08/2023 1:20 PM EST Temperature 36.5 C (97.7 F) 04/08/2023 1:20 PM ES T Respiratory Rate 18 04/08/2023 1:20 PM EST Oxygen Saturation 98% 04/08/2023 1:20 PM EST Inhaled Oxygen Concentration - - Weight 87.1 kg (192 lb) 04/08/2023 1:20 PM EST Height 170.2 cm (5' 7") 04/08/2023 1:20 PM EST Body Mass Index 30.07 04/08/2023 1:20 PM EST documented in this encounter Functional [...] Progress Notes * Pramod Damian MD - 04/26/2023 9:26 PM EST Subjective: Brady David is a 83 year old male here today for Chief Complaint Patient presents with Follow Up 4 months return Here for routine 4 month return - actually seems better today - anxiety improved. Appears to be tolerating current meds. Peritoneal dialysis going ok. Reviewed most recent labs and specialty visits. Past Medical History: Diagnosis Date Anxiety BPH [...] CARPAL TUNNEL SURGERY 10/28/2011 release right wrist, [place] COLORECTAL CANCER SCREEN; NOT AT RISK 01/08/2007 DENTAL SURGERY PROCEDURE NEC EGD, FLEXIBLE, DIAGNOSTIC 08/29/2013 ESOPHAGOGASTRODUODENOSCOPY (EGD), FLEXIBLE, TRANSORAL, DIAGNOSTIC performed by Miquel Mendoza MD at ENDOSCOPY [facility] INFORMATION 1998 back surgery - "chipped bone away" INFORMATION 2009 Heart Cath INFORMATION Thyroidectomy. INSER ERICKA CAT,W/O PUMP;5YR/OLD Right 11/05/2022 INSERT TUNNELED CENTRAL VENOUS CATHETER AGE 5 OR OLDER performed by Bill Hansen DO at OR [facility] IR VENOUS ACCESS NON-MEDIPORT 09/03/2022 IR VENOUS ACCESS NON-MEDIPORT 10/22/2022 IR VENOUS ACCESS NON-MEDIPORT 12/24/2022 LAPAROSCOPY, W/ INSERT INTRAPERITONEAL CATH N/A 08/25/2022 LAPAROSCOPIC INSERTION INTRAPERITONEAL CANNULA OR CATHETER performed by Willie Musa MD at OR [facility] LUMBAR SPINE FUSION, POST INTERBODY 12/08/2012 Torreti PROSTATE CRYOABLATION 11/15/2008 CRYOSURGICAL ABLATION OF PROSTATE performed by MIKE CORBETT at OR [facility] REMOVAL OF THYMUS GLAND 05/10/2000 REPAIR INITIAL INGUINAL HERNIA REDUCIBLE AGE 5 OR MORE Right 11/12/2022 REPAIR INITIAL INGUINAL HERNIA REDUCIBLE AGE 5 OR MORE performed by Willie Musa MD at OR [facility] REVISION OF ULNAR NERVE AT ELBOW Review of patient's allergies indicates: Allergen Reactions Doxazosin Mesylate Other (Please comment) Citalopram Clonidine Hydrochloride Nausea/vomiting Nightmares, nervousness Reaction depending on brand!!! Must be produced by [employer] Translate Hctz [Hydrochlorothiazide] Hyponatremia Hydralazine Diarrhea, testicular pain Januvia [Sitagliptin] Other (Please comment) Restlessness Lisinopril Cough Losartan Other (Please comment) Other Allergy (See Comments) Pt states he had reactions to many other medications, but does not know their names. Was encouraged to provide us with names. Statins myalgias on zocor Current Outpatient Medications Medication Sig Dispense Refill Blood Glucose Monitoring Suppl ([employer] VERIO) w/Device KIT Use up to 4 times a day 1 Kit 0 e-Nicotine TechnologiesTOUCH DELICA LANCETS FINE MISC Use four times [...] minutes before a meal.. 30 Tablet 5 OneTouch Verio In Vitro [...] the morning and 1 Capsule before bedtime. Levothyroxine Sodium 150 MCG Oral Tablet (Levoxyl) Take 1 Tablet by mouth daily first thing in the morning. (at least 30 min prior to breakfast or other meds) 90 Tablet 3 Ventolin HFA 108 (90 Base) MCG/ACT Inhalation Aerosol Solution Inhale 2 Puffs by mouth every 4 hours as needed for Wheezing or Dyspnea. 1 g 0 Potassium Chloride ER 20 [...] Tablets by mouth daily. 30 Tablet 5 Cyclobenzaprine HCl 5 MG Oral Tablet (Flexeril) Take 1 Tablet by mouth in the morning and 1 Tablet at noon and 1 Tablet before bedtime. 90 Tablet 2 Terazosin HCl 1 MG Oral Capsule (Hytrin) Take 1 Capsule by mouth at bedtime. 31 Capsule 5 Gabapentin 100 MG Oral Capsule (Neurontin) Take 1 Capsule by mouth in the morning and 1 Capsule before bedtime. 60 Capsule 1 No current facility-administered medications for this visit. Objective: BP 132/80 (BP Site: Left Arm, BP Position: Sitting, BP Cuff Size: Regular) | Pulse 80 | Temp 36.5 C (97.7 F) (Temporal Artery) | Resp 18 | Ht 1.702 m (5' 7") | Wt 87.1 kg (192 lb) | SpO2 98% | BMI 30.07 kg/m | BSA 2.03 m GEN: NAD HEENT: Benign NECK: Supple with no LAD, TM, JVD CHEST: CTA B CV: RRR ABD: Soft, NT/ND, No HSM, NABS EXT: No c,c,e Assessment and Plan: ESRD on peritoneal dialysis (HCC) (Primary) Encounter for nail care - PODIATRY REFERRAL OP Acquired hypothyroidism - TSH WITH FREE T4 IF INDICATED; Future; Expected date: 04/08/2023 DYSLIPIDEMIA, GOAL LDL BELOW 100 Type 2 diabetes mellitus with chronic kidney disease on chronic dialysis, without long-term currentuse of insulin (HCC) Type 2 diabetes mellitus with hemoglobin A1c goal of less than 8.0% (HCC) Chronic diastolic congestive heart failure (HCC) Persistent atrial fibrillation (HCC) History of prostate cancer History of thyroid cancer Panic disorder Anxiety -continue current treatments and follow up. Follow Up: Return in about 4 months (around 08/07/2023) for recheck. | For: recheck | Check-out note: Podiatry - Parker if possible 30 min with pt and chart review. Pramod Damian MD documented in this encounter Nursing Notes * Erin Finley CCMA - 04/08/2023 1:20 PM EST Brady David is a 83 year old male who presents today for Chief Complaint Patient presents with Follow Up 4 months return documented in this encounter Plan of Treatment Upcoming Encounters Date Type Department Care Team (Late st Contact Info) Description 05/18/2023 2:00 PM EST Office Visit Podiatry [facility] [address] [address] Magalie Parker DPM [address] [address] 06/09/2023 10:00 AM EST Office Visit Cardiology, [facility] [address] [address] Kierra Guerra PA-C [address] [address] 07/26/2023 9:00 AM EDT Imaging Rad[facility] [address] [facility] [address] [address] 09/07/2023 5:40 PM EDT Office Visit [facility] [place] [address] [facility] [place] [address] Pramod Damian MD [address] [address] Scheduled Referrals Name Type Priority Associated Diagnoses [...] encounter Medical Devices Implanted Type Area Supervisor Irrigation Device Identifier Shelf Expiration Date Model / Serial / Lot Mesh Flat Sheet 1x4 [id number] - [id number] Implanted:Qty: 1 on 11/12/2022 by Willie Musa MD at OR [facility] Right: Groin CR BARD : DAVOL 09/04/2025 [id number] / / [id number] documented as of this encounter Results * (ABNORMAL) TSH WITH FREE T4 IF INDICATED (04/08/2023 2:21 PM EST) TSH 4.86(H) 0.27 - 4.20 uIU/mL 04/08/2023 10:45 PM EST LABORATORY [facility] Blood Venous blood specimen / Unknown Venipuncture / Unknown 04/08/2023 2:21 PM EST 04/08/2023 2:21 PM EST Pramod Damian MD LAB BLOOD ORDERABL ES LABORATORY [facility] [address] [place] [address] documented in this encounter Visit Diagnoses Diagnosis ESRD on peritoneal dialysis (HCC)- Primary End stage renal disease Encounter for nail care Acquired hypothyroidism Unspecified hypothyroidism DYSLIPIDEMIA, GOAL LDL BELOW 100 Other and unspecified hyperlipidemia Type 2 diabetes mellitus with chronic kidney disease on chronic dialysis, without long-term current use of insulin (HCC) Type 2 diabetes mellitus with hemoglobin A1c goal of less than 8.0% (HCC) Chronic diastolic congestive heart failure (HCC) Chronic diastolic heart failure Persistent atrial fibrillation (HCC) Atrial fibrillation History of prostate cancer Personal history of malignant neoplasm of prostate History of thyroid cancer Personal history of malignant neoplasm of thyroid Panic disorder Panic disorder without agoraphobia Anxiety Anxiety state, unspecified documented in this encounter Advance Directives Latest [...] the patient have Health Care Power of Bus Analyst? No Care Teams Frame Straightener Relationship Specialty Start Date End Date Pramod Damian MD [address] [place] [address] PCP - General 04/10/02 documented as of this encounter
--- OUTSIDE RECORDS SUMMARY | 2023-08-22 12:05 | External Medical Summary | Summary of Care ---
Author Name Unknown Organization [facility] Address [address] [place] [address] Phone [phone] Care Team Providers Care Gift Officer Name Role Phone Pramod Damian MD Primary Care Provider +1- [phone] Encounter Details Date Type Department Care Team (Late st Contact Info) Description 03/23/2023 Telephone [facility] [address] [place] [address] Pramod Damian MD [address] [place] [address] Allergies Active Allergy Reactions Criticality [...] as of this encounter (statuses as of 03/23/2023) Medications Medication Sig Dispensed Refills Start Date End Date Status Blood Glucose Monitoring Suppl ([employer]) w/Device KIT Use up to 4 times [...] the morning. 30 Tablet 5 03/22/2023 Active documented as of this encounter (statuses as of 03/23/2023) Active Problems Problem Noted Date Diagnosed Date Type 2 diabetes mellitus wit h chronic [...] as of this encounter (statuses as of 03/23/2023) Resolved Problems Problem Noted Date Diagnosed Date Resolved Date Stage 3 chronic kidney disease 11/11/2018 04/27/2022 Hypertensive heart and kidne y disease with chronic diastolic congestive heart failure and stage 3 chronic kidney disease 06/30/201812/14 HTN, goal below 150/90 07/20/201702/23 Kidney disease, chronic, sta ge III (GFR 30-59 ml/min) 05/18/2016 07/19/2018 Overview: Per CKD protocol #1 Hypertensive heart disease w [facility] congestive heart failure 08/27/2014 08/27/2014 Hypertensive heart disease w [facility] congestive heart failure 08/27/2014 05/25/2019 Overview: [...] as of this encounter (statuses as of 03/23/2023) Immunizations Name Administration Dates Next Due COVID-19 mRNA, LNP-s, No Pre serve, 2-Dose Series (Gaopeng) 02/20/2021,01/30/2021 Pneumococcal Conjugate Vacc, 13 Valent (Prevnar) 01/26/2018 Pneumococcal Polysaccharide PPV23 (Pneumovax) 01/30/2006 SEASONAL INFLUENZA, PF, 6 M & Above, IM , (FLULAVAL or FLUZONE) 02/07/2020,02/03/2019,01/26/2018,02/0803/01/2018 Seasonal Influenza, Quadriva lent Hd (Fluzone Hd) 03/17/2022,04/28/2021 Seasonal Influenza, Quadriva lent, No Preserve, IM [...] encounter Miscellaneous Notes * Telephone Encounter - Cynthia Garcia PHARM Tech - 03/23/2023 10:21 AM EST [facility] called stating paxton does not need a prior auth. Cynthia Mcgarry Heavy Forging Machine Operator [facility] ([facility]) 03/23/2023,10:21 AM * Telephone Encounter - Mel Ardon LPN - 03/23/2023 9:36 AM EST [employer] prior auth submitted; auth # [id number] for Eliquis * Telephone Encounter - Patria Bartlett CPhT - 03/23/2023 9:35 AM EST Patients insurance would like to inform the office that PA for torsemide is not requiring review because pharmacy received paid claim yesterday Thank you, Patria Bartlett, Tech 1 Heavy Forging Machine Operator [facility] ([facility]) (formerly Telepharmacy) 03/23/2023, 9:35 AM * Telephone Encounter - Mel Ardon LPN - 03/23/2023 8:46 AM EST Prior Auth sent through [employer], ID# [id number] For Torsemide documented in this encounter Plan of Treatment Upcoming Encounters Date Type Department Care Team (Late st Contact Info) Description 04/08/2023 1:20 PM EST Office Visit [facility] [address] [place] [address] Pramod Damian MD [address] [place] [address] 06/02/2023 1:30 PM EST Office Visit Cardiology, [facility] [address] [address] Bill Palencia PA-C [address] [place] [address] 07/26/2023 9:00 AM EDT Imaging Radiology [facility] [address] [facility] [address] [address] Health Maintenance Due Date Last Done Comments Alpha-1 Antitrypsin 1959 Zoster Vaccines (1 of 2) 1991 DTaP,Tdap,and Td Vaccines (1 - Tdap) 04/28/2008 04/27/2008 Diabetic Eye Exam 03/29/2020 03/29/2019, , 07/27/2013, Additional history exists Diabetic Foot Exam 02/06/2021 02/07/2020, 0 07/04/2018, 06/30/2017, Additional history exists *COPD SEVERITY VERIFIED BY PFT 03/19/2022 COVID-19 Vaccine ( season) 2023 02/20/2021, 01/30/2021 Influenza Vaccine (FLU shot) (#1) 2023 03/17/2022, 04/28/2021, 02/07/2020, Additional history exists Depression Screening 03/17/2023 03/17/2022 HbA1c 08/21/2023 02/19/2023, 10/09, 08/22/2022, Additional history exists O2 ASSESSMENT COMPLETED IN PAST YEAR FOR COPD 11/13/2023 11/12/2022 TSH 03/03/2024 03/03/2023, 02/07, 12/02/2022, Additional history exists Pneumococcal Vaccine: 65+ Years Completed 01/26/2018, 01/30/2006 Hepatitis B Completed 02/09/2023, 01/14/2023 GARDASIL-HPV IMMUNIZATION SERIES Aged Out No longer eligible based on patient's age to complete this topic MENINGOCOCCAL (MENACTRA/MENVEO) Aged Out No longer eligible based on patient's age to complete this topic documented as of this encounter Medical Devices Implanted Type Area Identity Access Management Architect Device Identifier Shelf Expiration Date Model / Serial / Lot Mesh Flat Sheet 1x4 [id number] - [id number] Implanted:Qty: 1 on 11/12/2022 by Willie Musa MD at OR [facility] Right: Groin CR BARD : DAVOL 09/04/2025 [id number] / / [id number] documented as of this encounter Advance Directives [...] the patient have Health Care Power of Hand Cultivator? No Care Teams Gift Officer Relationship Specialty Start Date End Date Pramod Damian MD [address] [facility] [place] [place] [address] PCP - General 04/10/02 documented as of this encounter
--- OUTSIDE RECORDS SUMMARY | 2023-08-22 12:05 | External Medical Summary | Summary of Care ---
Author Name Unknown Organization [facility] Address [address] [place] [address] Phone [phone] Care Team Providers Care Wool Carder Name Role Phone Pramod Damian MD Primary Care Provider +1- [phone] Encounter Details Date Type Department Care Team (Late st Contact Info) Description 03/25/2023 Telephone [facility] [address] [place] [address] Donnie Anderson MD [address] [place] [address] Allergies Active Allergy Reactions Criticality [...] as of this encounter (statuses as of 03/26/2023) Medications Medication Sig Dispensed Refills Start Date End Date Status Blood Glucose Monitoring Suppl (LemonwiseTOMightyMeeting VERGuest of a Guest) w/Device KIT Use up to 4 times [...] Tablet before bedtime. 30 Tablet 1 03/25/2023 Active documented as of this encounter (statuses as of 03/26/2023) Active Problems Problem Noted Date Diagnosed Date [...] shoulder Chronic diastolic congestive heart failure 03/17 Chronic [...] as of this encounter (statuses as of 03/26/2023) Resolved Problems Problem Noted Date Diagnosed Date Resolved Date Stage 3 chronic kidney disease 11/11/2018 04/27/2022 Hypertensive heart and kidne y disease with chronic diastolic congestive heart failure and stage 3 chronic kidney disease 06/30/201812/14 HTN, goal below 150/90 07/20/201702/23 Kidney disease, chronic, sta ge III (GFR 30-59 ml/min) 05/18/2016 07/19/2018 Overview: Per CKD protocol #1 Hypertensive heart disease w [facility] congestive heart failure 08/27/2014 08/27/2014 [...] as of this encounter (statuses as of 03/26/2023) Immunizations Name Administration Dates Next Due COVID-19 [...] encounter Miscellaneous Notes * Telephone Encounter - [place] MED [...] Description 04/08/2023 1:20 PM EST Office Visit [facility] [address] [place] [address] Pramod Damian MD [address] [place] [address] 06/02/2023 1:30 PM EST Office Visit [facility], [facility] [address] [facility] [address] Bill Palencia PA-Ann [address] [place] [address] 07/26/2023 9:00 AM EDT Imaging Radiology [facility] [address] [facility] [address] Health Maintenance Due Date Last Done Comments [...] this encounter Medical Devices Implanted Type Area Tumblers Supervisor Device Identifier Shelf Expiration Date Model / Serial / Lot Mesh Flat Sheet 1x4 [id number] - [id number] Implanted:Qty: 1 on 11/12/2022 by Willie Musa MD at OR [facility] Right: Groin CR BARD : DAVOL 09/04/2025 [id number] / / [id number] documented as of this encounter Advance Directives [...] the patient have Health Care Power of Paper Bag Press Operator? No Care Teams Wool Carder Relationship Specialty Start Date End Date Pramod Damian MD [address] [place] [address] PCP - General 04/10/02 documented as of this encounter
--- OUTSIDE RECORDS SUMMARY | 2023-08-22 12:05 | External Medical Summary | Summary of Care ---
Author Name Unknown Organization [facility] Address [address] [facility] [address] Phone [phone] Care Team Providers Care Offal Trimmer Name Role Phone Pramod Damian MD Primary Care Provider +1- [phone] Reason for Visit * Reason Comments Acute Pt here for complain ts of his penis being covered with "white stuff" for the last 2 days, possible yeast infection. Encounter Details Date Type Department Care Team (Late st Contact Info) Description 03/20/2023 11:20 AM EST Office Visit Family Practice [facility] [address] [place] [phone] Talia Cervantes PA-C [address] [place] [address] [place]* Allergies Active Allergy Reactions Criticality Noted Date [...] as of this encounter (statuses as of 03/20/2023) Medications Medication Sig Dispensed Refills Start Date End Date Status Blood Glucose Monitoring Suppl (RocketBuxTOGencia VERNukona) w/Device KIT Use up to 4 times a day 1 Kit 0 11/11/2017 Active ONETOUCH DELJYOTSNA LANCETS FINE MISC Use four times daily 100 Each 11 05/12/2019 Active Apixaban 2.5 MG Oral Tablet (Eliquis) Take 1 Tablet by mouth in the morning and 1 Tablet before bedtime. 60 Tablet 3 08/26/2022 Active Allopurinol 100 MG Oral Tablet (Zyloprim) [...] a meal.. 30 Tablet 5 10/08/2022 Active Impact ProductsTouch VerMist.io In Vitro Strip (Glucose Blood)Indications :Type 2 diabetes mellitus with hemoglobin A1c goal of less than 8.0% ([facility]) USE UP TO FOUR TIMES A DAY 400 Strip 3 10/28/2022 Active Torsemide 100 MG Oral Tablet (Demadex) Take 1 Tablet by mouth in the morning. Do not start before November 07, 2022. 30 Tablet 3 11/07/2022 Active Additional Information Patient taking differently: 50 mgOral Daily(AM), Reported on 02/27/2023 glipiZIDE 10 MG Oral Tablet (Glucotrol) Take [...] healed. 30 mL 1 03/20/2023 3 Active ASPIRIN 81 MG PO TABS Take by mouth. 0 3 Discontinue d(Medicatio n List Clean Up) Senna-Docusate Sodium 8.6-50 MG Oral Tablet Take 1 Tablet by mouth in the morning. 0 3 Discontinue d(Medicatio n List Clean Up) linaGLIPtin 5 MG Oral Tablet (Tradjenta) Take 1 Tablet by mouth in the morning. 90 Tablet 1 08/03/2022 3 Discontinue d(Medicatio n List Clean Up) LORazepam 0.5 MG Oral Tablet (Ativan)Indicatio ns:Panic disorder Take 1/2 to 1 tab by mouth up to three times per day as needed for severe anxiety 45 Tablet 0 10/16/2022 3 Discontinue d(Medicatio n List Clean Up) Renvela 800 MG Oral Tablet Take 1 Tablet by mouth in the morning and 1 Tablet at noon and 1 Tablet before bedtime. 0 12/15/2022 3 Discontinue d(Medicatio n List Clean Up) Ferrous Sulfate 324 MG Oral Tablet Delayed Release Take by mouth. 0 3 Discontinue d(Medicatio n List Clean Up) Azithromycin 250 MG Oral Tablet (Zithromax Z-Chepe)Indications :LRTI (lower respiratory tract infection) Take two tablets by mouth on first day, then 1 tablet daily until gone 6 Tablet 0 02/27/2023 3 Discontinue d(Medicatio n List Clean Up) documented as of this encounter (statuses as of 03/20/2023) Active Problems Problem Noted Date Diagnosed Date [...] as of this encounter (statuses as of 03/20/2023) Resolved Problems Problem Noted Date Diagnosed Date Resolved Date Stage 3 chronic kidney disease 11/11/2018 04/27/2022 Hypertensive heart and kidne y disease with chronic diastolic congestive heart failure and stage 3 chronic kidney disease 06/30/201812/14 HTN, goal below 150/90 07/20/201702/23 Kidney disease, chronic, sta ge III (GFR 30-59 ml/min) 05/18/2016 07/19/2018 Overview: Per CKD protocol #1 Hypertensive heart [facility] w [facility] congestive heart failure 08/27/2014 08/27/2014 Hypertensive heart disease w [facility] congestive heart failure 08/27/2014 05/25/2019 Overview: duplicate [...] as of this encounter (statuses as of 03/20/2023) Immunizations Name Administration Dates Next Due COVID-19 [...] Sign Reading Time Taken Comments Blood Pressure 120/60 03/20/2023 10:59 AM EST Pulse 49 03/20/2023 10:59 AM EST Temperature 36.7 C (98.1 F) 03/20/2023 10:[address] Respiratory Rate 16 03/20/2023 10:59 AM EST Oxygen Saturation 98% 03/20/2023 10:59 AM EST Inhaled Oxygen Concentration - - Weight 87.1 kg (192 lb) 03/20/2023 10:59 AM EST Height 170.2 cm (5' 7") 03/20/2023 10:59 AM EST Body Mass Index 30.07 03/20/2023 10:59 AM EST documented in this encounter Functional Status [...] or making decisions? (5 years old or older No 11/02/2022 documented as of this encounter Progress Notes * Talia Cervantes PA-C - 03/20/2023 11:24 AM EST Subjective Brady David is a 83 year old male that presents for Acute (Pt here for complaints of his penis being covered with "white stuff" for the last 2 days, possible yeast infection.) 83 y/o male presents c/o penile discharge. Pt states two days ago he noticed his penis was covered in a white ring when he went to the bathroom. He removed the white discharge and poured listerine onthe tip of the penis. Since then, he has been having a slight burning sensation. No return of the white discharge. He otherwise denies fevers, chills, chest pain, Sob, nausea, vomiting, diarrhea. Allergies and medications reviewed. Objective BP 120/60 (BP Site: Left Arm, BP Position: Sitting, BP Cuff Size: Regular) | Pulse 49 | Temp 36.7 C (98.1 F) | Resp 16 | Ht 1.702 m (5' 7") | Wt 87.1 kg (192 lb) | SpO2 98% | BMI 30.07 kg/m | BSA 2.03 m Body mass index is 30.07 kg/m. BP Readings from Last 3 Encounters: 03/20/23 120/60 03/03/23 130/72 02/27/23 128/84 Wt Readings from Last 3 Encounters: 03/20/23 87.1 kg (192 lb) 03/03/23 87.6 kg (193 lb 3.2 oz) 02/27/23 86.6 kg (191 lb) Physical Exam Vitals and nursing note reviewed. Constitutional: General: He is not in acute distress. Appearance: Normal appearance. HENT: Head: Normocephalic and atraumatic. Eyes: General: No scleral icterus. Extraocular Movements: Extraocular movements intact. Conjunctiva/sclera: Conjunctivae normal. Pupils: Pupils are equal, round, and reactive to light. Cardiovascular: Rate and Rhythm: Normal rate. Pulmonary: Effort: Pulmonary effort is normal. Genitourinary: Penis: Circumcised. Erythema (urethral erythema noted) present. No tenderness, discharge or lesions. Skin: General: Skin is warm and dry. Findings: No rash. Neurological: General: No focal deficit present. Mental Status: He is alert and oriented to person, place, and time. Psychiatric: Mood and Affect: Mood normal. Assessment and plan 1. Balanitis -yeast balanitis and secondary urethritis -stop using listerine -topical lostrisone cream twice a day -pt asking about needing a pill, worried about the infection spreading to the peritoneal dialysis -reassurance provided that this type of infection does not typically spread internally to cause illness -if symptoms progress or worsen he will call or return to the clinic -to ER with acute worsening symptoms - Clotrimazole-Betamethasone 1-0.05 % External Lotion (Lotrisone); Apply topically to affected area2 times a day for 28 days. To affected area for 4 weeks, or until healed. Dispense: 30 mL; Refill: 1 Follow up Follow Up: Return if symptoms worsen or fail to improve. Total time today including reviewing chart before the visit, pertinent labs, imaging reports, face to face time, and documentation time was 20 minutes. The above was discussed and understanding was expressed. Talia Cervantes PA-C documented in this encounter Plan of Treatment Upcoming Encounters Date Type Department Care Team (Late st Contact Info) Description 04/08/2023 1:20 PM EST Office Visit [facility] [address] [place] [address] Pramod Damian MD [address] [place] [address] 06/02/2023 1:30 PM EST Office Visit Cardiology, [facility] [address] [place] [address] Bill Palencia PA-C [address] [place] [address] 07/26/2023 9:00 AM EDT Imaging Radiology [facility] [address] [facility] [place] [address] Health Maintenance Due Date Last Done Comments Alpha-1 Antitrypsin 1959 Zoster Vaccines (1 of 2) 1991 Hepatitis B (1 of 3 - Risk 3-dose series) 2001 DTaP,Tdap,and Td Vaccines (1 - Tdap) 04/28/2008 [...] Pneumococcal Vaccine: 65+ Years Completed 01/26/2018, 01/30/2006 GARDASIL-HPV IMMUNIZATION SERIES Aged Out No longer eligible based on patient's age to complete this topic MENINGOCOCCAL (MENACTRA/MENVEO) Aged Out No longer eligible based on patient's age to complete this topic documented as of this encounter Medical Devices Implanted Type Area Camper Assembler Device Identifier Shelf Expiration Date Model / Serial / Lot Mesh Flat Sheet 1x4 [id number] - [id number] Implanted:Qty: 1 on 11/12/2022 by Willie Musa MD at OR [facility] Right: Groin CR BARD : DAVOL 09/04/2025 [id number] / / [id number] documented as of this encounter Visit Diagnoses Diagnosis Balanitis- Primary Balanoposthitis documented in this encounter Advance Directives Latest [...] the patient have Health Care Power of Glassine Machine Tender? No Care Teams Offal Trimmer Relationship Specialty Start Date End Date Pramod Damian MD [address] [place] [address] PCP - General 04/10/02 documented as of this encounter
--- OUTSIDE RECORDS SUMMARY | 2023-08-22 12:05 | External Medical Summary | Summary of Care ---
Author Name Unknown Organization [facility] Address [address] [facility] [place] [address] Phone [phone] Care Team Providers Care Bag Loader Name Role Phone Pramod Damian MD Primary Care Provider +1- [phone] Reason for Visit * Reason Comments Acute Zio patch applied Follow Up Encounter Details Date Type Department Care Team (Late st Contact Info) Description 03/09/2023 11:00 AM EDT Nurse Only Ancillary Department, [facility] [address] [place] [address] [facility], Nurse [address] [place] [address] Acute (Zio patch applied ); Follow Up Allergies Active Allergy Reactions Criticality Noted Date [...] as of this encounter (statuses as of 03/09/2023) Medications Medication Sig Dispensed Refills Start Date End Date Status ASPIRIN 81 MG PO TABS Take by mouth. 0 Active Blood Glucose Monitoring Suppl (ZenSuiteTOUCH VERIO) w/Device KIT Use up to 4 times a day 1 Kit 0 11/11/2017 Active ZenSuiteTOUCH DELICA LANCETS FINE MISC Use four times daily 100 Each 11 05/12/2019 Active Senna-Docusate Sodium 8.6-50 MG Oral Tablet Take 1 Tablet by mouth in the morning. 0 Active linaGLIPtin 5 MG Oral Tablet (Tradjenta) Take 1 Tablet by mouth in the morning. 90 Tablet 1 08/03/2022 Active Additional Information Patient not taking.Reported on 03/03/2023 Apixaban 2.5 MG Oral Tablet (Eliquis) Take [...] a meal.. 30 Tablet 5 10/08/2022 Active LORazepam 0.5 MG Oral Tablet (Ativan)Indication s:Panic disorder Take 1/2 to 1 tab by mouth up to three times per day as needed for severe anxiety 45 Tablet 0 10/16/2022 Active OneTouch Verio In Vitro Strip (Glucose [...] a meal. 180 Tablet 3 11/18/2022 Active Renvela 800 MG Oral Tablet Take 1 Tablet by mouth in the morning and 1 Tablet at noon and 1 Tablet before bedtime. 0 12/15/2022 Active Ferrous Sulfate 324 MG Oral Tablet Delayed Release Take by mouth. 0 Activ e Lactulose 10 GM/15ML Oral Solution (Constulose)Indica tions:Other [...] other meds) 90 Tablet 3 02/19/2023 Active Azithromycin 250 MG Oral Tablet (Zithromax Z-Chepe)Indications: LRTI (lower respiratory tract infection) Take two tablets by mouth on first day, then 1 tablet daily until gone 6 Tablet 0 02/27/2023 Active Ventolin HFA 108 (90 Base) MCG/ACT Inhalation Aerosol SolutionIndication s:LRTI (lower respiratory tract infection) Inhale 2 Puffs by mouth every 4 hours as needed for Wheezing or Dyspnea. 1 g 0 02/27/2023 Active Amoxicillin-Pot Clavulanate 875-125 MG Oral Tablet (Augmentin)Indicat ions:Bronchitis, complicated Take 1 Tablet by mouth in the morning and 1 Tablet before bedtime. Do all this for 10 days. 20 Tablet 0 03/03/2023 03/13/2023 Active Potassium Chloride ER 20 MEQ Oral Tablet Extended Release Take 2 Tablets by mouth in the morning. 60 Tablet 3 03/05/2023 Active documented as of this encounter (statuses as of 03/09/2023) Active Problems Problem Noted Date Diagnosed Date [...] as of this encounter (statuses as of 03/09/2023) Resolved Problems Problem Noted Date Diagnosed Date [...] as of this encounter (statuses as of 03/09/2023) Immunizations Name Administration Dates Next Due COVID-19 [...] as of this encounter Progress Notes * Tavia Ellis LPN - 03/09/2023 11:12 AM EDT Zio patch applied per Doctor's order. Explained what pt was suppose to do with Zio. Pt stated he understood. documented in this encounter Plan of Treatment Upcoming Encounters Date Type Department Care Team (Late st Contact Info) Description 04/08/2023 1:20 PM EST Office Visit [facility] [address] [place] [address] Pramod Damian MD [address] [place] [address] 06/02/2023 1:30 PM EST Office Visit Cardiology, [facility] [place] [address] Bill Palencia PA-C [address] [place] [address] 07/26/2023 9:00 AM EDT Imaging Radiology [facility] [address] [place] [address] Health Maintenance Due Date Last Done Comments [...] this encounter Medical Devices Implanted Type Area Travel Insurance Agent Device Identifier Shelf Expiration Date Model / Serial / Lot Mesh Flat Sheet 1x4 [id number] - [id number] Implanted:Qty: 1 on 11/12/2022 by Willie Musa MD at OR [facility] Right: Groin CR BARD : DAVOL 09/04/2025 [id number] / / [id number] documented as of this encounter Visit Diagnoses Diagnosis Persistent atrial fibrillation (HCC)- Primary Atrial fibrillation LBBB (left bundle branch block) Other left bundle branch block documented in this encounter Advance Directives Latest Code Status on File Code Status Date Activated Date Inactivated Comments Full Code 11/12/2022:34 AM 11/12/2022 3:08 PM Question Answer Comments [...] the patient have Health Care Power of Forms Analysis Manager? No Care Teams Bag Loader Relationship Specialty Start Date End Date Pramod Damian MD [address] [place] [facility] [place] [address] PCP - General 04/10/02 documented as of this encounter
--- OUTSIDE RECORDS SUMMARY | 2023-08-22 12:05 | External Medical Summary | Summary of Care ---
Author Name Unknown Organization [facility] Address [address] [place] [address] Phone [phone] Care Team Providers Care Director Institution Name Role Phone Pramod Damian MD Primary Care Provider +1- [phone] Reason for Visit * Reason Onset Date Comments Med Request 03/22/2023 Encounter Details Date Type Department Care Team (Late st Contact Info) Description 03/22/2023 Telephone [facility] [address] [place] [address] Pramod Damian MD [address] [place] [address] Med Request Allergies Active Allergy Reactions Criticality Noted Date [...] as of this encounter (statuses as of 03/22/2023) Medications Medication Sig Dispensed Refills Start Date End Date Status Blood Glucose Monitoring Suppl (Gaia HerbsTOUCH VERChimeros) w/Device KIT Use up to 4 times [...] the morning. 30 Tablet 5 03/22/2023 Active Torsemide 100 MG Oral Tablet (Demadex) Take 1 Tablet by mouth in the morning. Do not start before November 07, 2022. 30 Tablet 3 11/07/2022 Discontinue d(Refill) documented as of this encounter (statuses as of 03/22/2023) Active Problems Problem Noted Date Diagnosed Date [...] as of this encounter (statuses as of 03/22/2023) Resolved Problems Problem Noted Date Diagnosed Date Resolved Date Stage 3 chronic kidney disease 11/11/2018 04/27/2022 Hypertensive heart and kidne y disease with chronic diastolic congestive heart failure and stage 3 chronic kidney disease 06/30/201812/14 HTN, goal below 150/90 07/20/201702/23 Kidney disease, chronic, sta ge III (GFR 30-59 ml/min) 05/18/2016 07/19/2018 Overview: Per CKD protocol #1 Hypertensive heart disease w [facility] congestive heart failure 08/27/2014 08/27/2014 Hypertensive heart disease w [facility] congestive heart failure 08/27/2014 05/25/2019 Overview: [...] as of this encounter (statuses as of 03/22/2023) Immunizations Name Administration Dates Next Due COVID-19 [...] Telephone Encounter - Pramod Damian MD - 03/22/2023 4:55 PM EST See no indication in chart of change by nephrology or cardiology or primary care - refilled. * Telephone Encounter - Charla Dowell PHARM Tech - 03/22/2023 11:24 AM EST Pharmacy calling requesting refills for Torsemide 100 MG Oral Tablet . Upon chart review, medication was last prescribed by hospital. Pt did schedule a hospital follow up visit. Please advise if you wish to continue this therapy for the patient. Thank you, Charla Dowell,[facility] Stit[facility] ([facility]) 03/22/2023,11:24 AM documented in this encounter Plan of Treatment Upcoming Encounters Date Type Department Care Team (Late st Contact Info) Description 04/08/2023 1:20 PM EST Office Visit [facility] [address] [place] [address] Pramod Damian MD [address] [place] [address] 06/02/2023 1:30 PM EST Office Visit Cardiology, [facility] [address] [facility] [place] [address] Bill Palencia PA-C [address] [facility] [place] [address] 07/26/2023 9:00 AM EDT Imaging Radiology [facility] [address] [facility] [place] [address] Health Maintenance Due Date Last Done Comments [...] this encounter Medical Devices Implanted Type Area Shovel Oiler Device Identifier Shelf Expiration Date Model / Serial / Lot Mesh Flat Sheet 1x4 [id number] - [id number] Implanted:Qty: 1 on 11/12/2022 by Willie Musa MD at [facility] Right: Groin CR BARD : DAVOL 09/04/2025 [id number] / / [id number] documented as of this encounter Advance Directives [...] the patient have Health Care Power of Spooler? No Care Teams Director Institution Relationship Specialty Start Date End Date Pramod Damian MD [address] [place] [address] PCP - General 04/10/02 documented as of this encounter
--- OUTSIDE RECORDS SUMMARY | 2023-08-22 12:05 | External Medical Summary | Summary of Care ---
Author Name Unknown Organization [facility] Address [address] [place] [address] Phone [phone] Care Team Providers Care Landfill Gas Plant Field Technician Name Role Phone Pramod Damian MD Primary Care Provider +1- [phone] Reason for Visit * Reason Onset Date Comments Advice 03/25/2023 Encounter Details Date Type Department Care Team (Late st Contact Info) Description 03/25/2023 Telephone [facility] [address] [place] [address] Donnie Anderson MD [address] [place] [address] Advice Allergies Active Allergy Reactions [...] End Date Status Blood Glucose Monitoring Suppl ([employer] VERClandestine Development) w/Device KIT Use up to 4 times [...] CKD protocol #1 Hypertensive heart disease w [facility] congestive heart failure 08/27/2014 08/27/2014 Hypertensive heart disease w [facility] congestive heart failure 08/27/2014 05/25/2019 [...] encounter Miscellaneous Notes * Telephone Encounter - Foster, Magalie M, SEWER INSPECTOR - 03/26/2023 10:16 AM EST Patient returned [...] Description 04/08/2023 1:20 PM EST Office Visit [facility] [address] [place] [address] Pramod Damian MD [address] [place] [address] 06/02/2023 1:30 PM EST Office Visit Cardiology, [facility] [address] [facility] [place] [address] Bill Palencia PA-C [address] [place] [address] 07/26/2023 9:00 AM EDT Imaging Radiology [facility] [address] [place] [address] Health Maintenance Due Date Last Done Comments [...] this encounter Medical Devices Implanted Type Area Cane Feeder Device Identifier Shelf Expiration Date Model / Serial / Lot Mesh Flat Sheet 1x4 [id number] - [id number] Implanted:Qty: 1 on 11/12/2022 by Willie Musa MD at OR [facility] Right: Groin CR BARD : DAVOL 09/04/2025 [id number] / / [id number] documented as of this encounter Advance Directives [...] the patient have Health Care Power of Cable Ferry Operator? No Care Teams Landfill Gas Plant Field Technician Relationship Specialty Start Date End Date Pramod Damian MD [address] [place] [address] PCP - General 04/10/02 documented as of this encounter
--- OUTSIDE RECORDS SUMMARY | 2023-08-22 12:05 | External Medical Summary | Summary of Care ---
Author Name Unknown Organization [facility] Address [address] [facility] [address] Phone [phone] Care Team Providers Care Machine Silver Stripper Name Role Phone Pramod Damian MD Primary Care Provider +1- [phone] Reason for Visit * Reason Onset Date Comments Advice 02/24/2023 Encounter Details Date Type Department Care Team (Late st Contact Info) Description 02/24/2023 Telephone Cardiology, [facility] [address] [place] [address] Bill Palencia PA-C [address] [place] [id number] Advice Allergies Active Allergy Reactions Criticality Noted [...] as of this encounter (statuses as of 03/11/2023) Medications Medication Sig Dispensed Refills Start Date End Date Status ASPIRIN 81 MG PO TABS Take by mouth. 0 Active Blood Glucose Monitoring Suppl (ONETOUCH VERIO) w/Device [...] 10/08/2022 Active LORazepam 0.5 MG Oral Tablet (Ativan)Indications :Panic disorder Take 1/2 to 1 tab by mouth up to three times per day as needed for severe anxiety 45 Tablet 0 10/16/2022 Active OneTouch Verio In Vitro Strip (Glucose Blood)Indications:T ype 2 diabetes mellitus with hemoglobin A1c goal of less than 8.0% (FORMERLY [facility]) USE UP TO FOUR TIMES A DAY [...] Activ e Lactulose 10 GM/15ML Oral Solution (Constulose)Indicat ions:Other constipation TAKE 15 ML BY MOUTH TWICE A DAY NEEDED FOR SEVERE CONSTIPATION 237 mL 3 2023 Active Docusate Sodium 100 MG Oral Capsule Take 1 Capsule by mouth in the morning and 1 Capsule before bedtime. 0 Active Levothyroxine Sodium 150 MCG Oral Tablet (Levoxyl)Indication s:Acquired hypothyroidism,Elev ated TSH Take 1 Tablet by mouth daily first thing in the morning. (at least 30 min prior to breakfast or other meds) 90 Tablet 3 02/19/2023 Active documented as of this encounter (statuses as of 03/11/2023) Active Problems Problem Noted Date Diagnosed Date [...] as of this encounter (statuses as of 03/11/2023) Resolved Problems Problem Noted Date Diagnosed Date Resolved Date Stage 3 chronic kidney disease 11/11/2018 04/27/2022 Hypertensive heart and kidne y disease with chronic diastolic congestive heart failure and stage 3 chronic kidney disease 06/30/201812/14 HTN, goal below 150/90 07/20/201702/23 Kidney disease, chronic, sta ge III (GFR 30-59 ml/min) 05/18/2016 07/19/2018 Overview: Per CKD protocol #1 Hypertensive heart disease w [facility] congestive heart failure 08/27/2014 08/27/2014 Hypertensive heart disease w [facility] congestive heart failure 08/27/2014 05/25/2019 Overview: [...] as of this encounter (statuses as of 03/11/2023) Immunizations Name Administration Dates Next Due COVID-19 [...] encounter Miscellaneous Notes * Telephone Encounter - Tavia Ellis LPN - 03/05/2023 3:11 PM EDT LELIA Spoke with pt. He is NOT interested in seeing a psychiatry. He is scheduled to come to the [place] office to have a heart monitor placed due to his increased heart rate. Order placed by pt heart doctor. No didn't want to schedule a office visit at this time. * Telephone Encounter - Pramod Damian MD - 03/05/2023 2:31 PM EDT Agree that he needs better control of anxiety - but I have tried to treat with limited success on multiple occasions with multiple drug trials. He has also been evaluated by mental health professionals during hospitalizations. Can offer outpt referral to psychiatry and psychology. He usually declines but can send back to me for order if he agrees. * Telephone Encounter - Erin Finley CCMA - 03/05/2023 1:13 PM EDT Please advise as below. Thank you. * Telephone Encounter - Bill Palencia PA-C - 02/24/2023 4:45 PM EDT Recommend treatment of generalized anxiety Bill Palencia PA-C Department of Cardiology * Telephone Encounter - Cande Beasley CMA - 02/24/2023 3:31 PM EDT Please advice regarding MyG messages. * Telephone Encounter - Cande Beasley CMA - 02/24/2023 3:31 PM EDT Images from the original note were not included. Brady Smallwood [facility] Cardiology Nurse Pool/Class (supporting Bill Palencia PA-C)19 hours ago (7:46 PM) this is no kind of a life i do pd 4 times a day and put up with these side effects there are many more i cant think of all . lets resolve this felicia. thanks prince Smallwood [facility] Cardiology Nurse Pool/Class (supporting Bill Palencia PA-C)20 hours ago (6:35 PM) anxiety , aches and pains , numbness in forehead , partial list , can't always take a deep breath ,very annoying ,and trouble sleeping can i reduce the dose or change drugs ? prince documented in this encounter Plan of Treatment Upcoming Encounters Date Type Department Care Team (Late st Contact Info) Description 04/08/2023 1:20 PM EST Office Visit [facility] [address] [place] [address] Pramod Damian MD [address] [place] [address] 06/02/2023 1:30 PM EST Office Visit Cardiology, [facility] [address] [facility] [place] [address] Bill Palecnia PA-C [address] [place] [address] 07/26/2023 9:00 AM EDT Imaging Radiology [facility] [address] [facility] [place] [address] Health Maintenance Due Date Last Done Comments [...] this encounter Medical Devices Implanted Type Area Innovations Paraprofessional Device Identifier Shelf Expiration Date Model / Serial / Lot Mesh Flat Sheet [id number] - [id number] Implanted:Qty: 1 on 11/12/2022 by Willie Musa MD at OR [facility] Right: Groin CR BARD : DAVOL 09/04/2025 [id number] / / [id number] documented as of this encounter Advance Directives [...] the patient have Health Care Power of Trap Puller? No Care Teams Machine Silver Stripper Relationship Specialty Start Date End Date Pramod Damian MD [address] [place] [address] PCP - General 04/10/02 documented as of this encounter
--- OUTSIDE RECORDS SUMMARY | 2023-08-22 12:05 | External Medical Summary | Summary of Care ---
Author Name Unknown Organization [facility] Address [address] [place] [address] Phone [phone] Care Team Providers Care Privacy Officer Name Role Phone Pramod Damian MD Primary Care Provider +1- [phone] Encounter Details Date Type Department Care Team (Late st Contact Info) Description 03/22/2023 Telephone [facility] [address] [place] [address] Pramod Damian MD [address] [place] [address] Allergies Active Allergy Reactions Criticality [...] End Date Status Blood Glucose Monitoring Suppl (Ninja BlocksTODimmi [email or web address]) w/Device KIT Use up to 4 times [...] meal.. 30 Tablet 5 10/08/2022 Active OneTouch [email or web address] In Vitro Strip (Glucose Blood)Indications: Type 2 [...] before bedtime. 60 Tablet 5 03/21/2023 Active documented as of this encounter (statuses [...] CKD protocol #1 Hypertensive heart disease w [facility] congestive heart failure 08/27/2014 08/27/2014 Hypertensive heart disease w [facility] congestive heart failure 08/27/2014 05/25/2019 [...] Encounter - [place] MED ASSIST - 03/22/2023 11:32 AM EST Spoke with pt. Advised previous message. Verbalized understanding * Telephone Encounter - [place] MED ASSIST - 03/22/2023 11:31 AM EST ----- Message from Bill Lomeli MD sent at 03/21/2023 10:59 AM EST ----- Chest xray was normal. Hope you are doing OK. documented in this encounter Plan of Treatment Upcoming Encounters Date Type Department Care Team (Late st Contact Info) Description 04/08/2023 1:20 PM EST Office Visit [facility] [address] [place] [phone] Pramod Damian MD [address] [place] [address] 06/02/2023 1:30 PM EST Office Visit Cardiology, [facility] [address] [facility] [place] [address] Bill Palencia PA-C [address] [facility] [place] [address] 07/26/2023 9:00 AM EDT Imaging Radiology [facility] [address] [facility] [place] [address] Health Maintenance Due Date Last Done Comments [...] this encounter Medical Devices Implanted Type Area Knotter Device Identifier Shelf Expiration Date Model / Serial / Lot Mesh Flat Sheet [id number] - [id number] Implanted:Qty: 1 on 11/12/2022 by Willie Musa MD at OR [facility] Right: Groin CR BARD : DAVOL 09/04/2025 [id number] / / [id number] documented as of this encounter Advance Directives [...] patient have Health Care Power of Airplane Cabin Attendant? No Care Teams Privacy Officer Relationship Specialty Start Date End Date Pramod Damian MD [address] [place] [address] PCP - General 04/10/02 documented as of this encounter
--- OUTSIDE RECORDS SUMMARY | 2023-08-22 12:05 | External Medical Summary | Summary of Care ---
Author Name Unknown Organization [facility] Address [address] [facility] [address] Phone [phone] Care Team Providers Care Washtub Worker Helper Name Role Phone Pramod Damian MD Primary Care Provider +1- [phone] Encounter Details Date Type Department Care Team (Late st Contact Info) Description 03/30/2023 Population Health External Data Unspecified Department Allergies [...] as of this encounter (statuses as of 03/30/2023) Medications Medication Sig Dispensed Refills Start Date [...] before bedtime. 30 Tablet 1 03/25/2023 Active Metoprolol Succinate ER 25 MG Oral Tablet Extended Release 24 Hour (toPROL XL) Take 0.5 Tablets by mouth daily. 30 Tablet 5 03/26/2023 Active documented as of this encounter (statuses as of 03/30/2023) Active Problems Problem Noted Date Diagnosed Date [...] as of this encounter (statuses as of 03/30/2023) Resolved Problems Problem Noted Date Diagnosed Date Resolved Date Stage 3 chronic kidney disease 11/11/2018 04/27/2022 Hypertensive heart and kidne y disease with chronic diastolic congestive heart failure and stage 3 chronic kidney disease 06/30/201812/14 HTN, goal below 150/90 07/20/201702/23 Kidney disease, chronic, sta ge III (GFR 30-59 ml/min) 05/18/2016 07/19/2018 Overview: Per CKD protocol #1 Hypertensive heart disease w [facility] congestive heart failure 08/27/2014 08/27/2014 Hypertensive heart disease w [facility] congestive heart failure 08/27/2014 05/25/2019 [...] as of this encounter (statuses as of 03/30/2023) Immunizations Name Administration Dates Next Due COVID-19 mRNA, LNP-s, No Pre serve, 2-Dose Series (Ecochlor) 02/20/2021,01/30/2021 Pneumococcal Conjugate Vacc, 13 Valent (Prevnar) [...] Description 04/08/2023 1:20 PM EST Office Visit [place] [address] [place] [address] Pramod Damian MD [address] [place] [address] 06/02/2023 1:30 PM EST Office Visit Cardiology, [facility] [address] [facility] [place] [address] Bill Palencia PA-C [address] [place] [address] 07/26/2023 9:00 AM EDT Imaging Radiology [facility] [address] [facility] [place] [address] Health Maintenance Due Date Last Done Comments Alpha-1 Antitrypsin 1959 Zoster Vaccines (1 of 2) 1991 DTaP,Tdap,and Td Vaccines (1 - Tdap) 04/28/2008 04/27/2008 Diabetic Eye Exam 03/29/2020 03/29/2019, , 07/27/2013, Additional history exists Diabetic Foot Exam 02/06/2021 02/07/2020, 0 07/04/2018, 06/30/2017, Additional history exists *COPD SEVERITY VERIFIED BY PFT 03/19/2022 COVID-19 Vaccine (3 - season) 2023 02/20/2021, 01/30/2021 Depression Screening 03/17/2023 [...] this encounter Medical Devices Implanted Type Area Precipitator Device Identifier Shelf Expiration Date Model / Serial / Lot Mesh Flat Sheet 1x4 [id number] - [id number] Implanted:Qty: 1 on 11/12/2022 by Willie Musa MD at OR [facility] Right: Groin CR BARD : DAVOL 09/04/2025 [id number] / / [id number] documented as of this encounter Advance Directives [...] the patient have Health Care Power of Streaming Media Specialist? No Care Teams Washtub Worker Helper Relationship Specialty Start Date End Date Pramod Damian MD [address] [place] [address] PCP - General 04/10/02 documented as of this encounter
--- OUTSIDE RECORDS SUMMARY | 2023-08-22 12:05 | External Medical Summary | Summary of Care ---
Author Name Unknown Organization [facility] Address [address] [place] [address] Phone [phone] Care Team Providers Care Radiology Nurse Name Role Phone Pramod Damian MD Primary Care Provider +1- [phone] Encounter Details Date Type Department Care Team (Late st Contact Info) Description 03/25/2023 Telephone [facility] [address] [place] [address] Donnie Anderson MD [address] [place] [address] Allergies Active Allergy Reactions Criticality [...] as of this encounter (statuses as of 03/25/2023) Medications Medication Sig Dispensed Refills Start Date End Date Status Blood Glucose Monitoring Suppl (SelventaTODatabanq VERSequenta) w/Device KIT Use up to 4 times [...] as of this encounter (statuses as of 03/25/2023) Active Problems Problem Noted Date Diagnosed Date [...] as of this encounter (statuses as of 03/25/2023) Resolved Problems Problem Noted Date Diagnosed Date Resolved Date Stage 3 chronic kidney disease 11/11/2018 04/27/2022 Hypertensive heart and kidne y disease with chronic diastolic congestive heart failure and stage 3 chronic kidney disease 06/30/201812/14 HTN, goal below 150/90 07/20/201702/23 Kidney disease, chronic, sta ge III (GFR 30-59 ml/min) 05/18/2016 07/19/2018 Overview: Per CKD protocol #1 Hypertensive heart disease w [facility] congestive heart failure 08/27/2014 08/27/2014 Hypertensive heart disease w [facility] congestive heart failure 08/27/2014 05/25/2019 Overview: duplicate [...] as of this encounter (statuses as of 03/25/2023) Immunizations Name Administration Dates Next Due COVID-19 [...] encounter Miscellaneous Notes * Telephone Encounter - Donnie Anderson MD - 03/25/2023 3:32 PM EST Please advise pt to get diabetic eye exam on routine visit in 2 wks documented in this encounter Plan of Treatment Upcoming Encounters Date Type Department Care Team (Late st Contact Info) Description 04/08/2023 1:20 PM EST Office Visit [facility] [place] [facility] [address] [place] [phone] Pramod Damian MD [address] [place] [facility] [place] [address] 06/02/2023 1:30 PM EST Office Visit Cardiology, [facility] [address] [facility] [place] [address] Bill Palencia PA-C [address] [place] [address] 07/26/2023 9:00 AM EDT Imaging Radiology [facility] [address] [facility] [place] [address] Health Maintenance Due Date Last Done Comments [...] Depression Screening 03/17/2023 03/17/2022 HbA1c 08/21/2023 02/19/2023, 06/2 10/2022, 08/22/2022, Additional history exists O2 ASSESSMENT COMPLETED [...] this encounter Medical Devices Implanted Type Area Paper Processing Machine Helper Device Identifier Shelf Expiration Date Model / Serial / Lot Mesh Flat Sheet 1x4 [id number] - [id number] Implanted:Qty: 1 on 11/12/2022 by Willie Musa MD at OR [facility] Right: Groin CR BARD : DAVOL 09/04/2025 [id number] / / [id number] documented as of this encounter Advance Directives [...] the patient have Health Care Power of Scalemaker? No Care Teams Radiology Nurse Relationship Specialty Start Date End Date Pramod Damian MD [address] [facility] [place] [address] PCP - General 04/10/02 documented as of this encounter
--- OUTSIDE RECORDS SUMMARY | 2023-08-22 12:05 | External Medical Summary | Summary of Care ---
Author Name Unknown Organization [facility] Address [address] [facility] [place] [address] Phone [phone] Care Team Providers Care Bellperson Name Role Phone Pramod Damian MD Primary Care Provider +1- [phone] Reason for Visit * Reason Onset Date Comments Acute Pain in the righ t side. Medication Administration 03/25/2023 Flu an d/or Pneumo Inj Encounter Details Date Type Department Care Team (Late st Contact Info) Description 03/25/2023 2:00 PM EST Office Visit [facility] [address] [place] [address] Donnie Anderson MD [address] [place] [address] Acute right-sided low back pain without sciatica*; S/P lumbar fusion; Need for prophylactic vaccination and inoculation against influenza; Type 2 diabetes mellitus with hemoglobin A1c goal of less than 8.0% ([facility]); ESRD on peritoneal dialysis ([facility]); 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 30 Tablet 5 10/08/2022 Active Unbooked LtdTouch VerGroupe Adeuza In Vitro Strip (Glucose Blood)Indications: Type 2 [...] 2:37 PM EDT Sexual Orientation Straight 03/29/2019 7 :51 AM EST Job Start Date Occupation Industry Not on file Not on file Not on file documented as of this encounter Last Filed Vital Signs Vital Sign Reading Time Taken Comments Blood Pressure 138/72 03/25/2023 2:03 PM EST Pulse 92 03/25/2023 2:03 PM EST Temperature 36.8 C (98.2 F) 03/25/2023 2:03 PM ES T Respiratory Rate - - Oxygen Saturation - - Inhaled Oxygen Concentration - - Weight 88.2 kg (194 lb 6.4 oz) 03/25/2023 2:03 P M EST Height - - Body Mass Index 30.45 03/20/2023 10:59 AM EST documented in this [...] this encounter Patient Instructions * Patient Instructions* Tavia Ellis LPN - 03/25/2023 2:35 PM EST ~~PATIENT INSTRUCTIONS FOR FLU SHOT~~ Possible side effects of influenza vaccine, (flu shot), are usually mild and include: 1. Soreness or redness at injection site 2. Low grade fever 3. Body aches You may use Tylenol/Acetaminophen as needed for these symptoms. LET YOUR DOCTOR KNOW IMMEDIATELY IF YOU HAVE DIFFICULTY BREATHING OR SWALLOWING, EXPERIENCE ITCHINGOF FEET OR HANDS, HAVE SWELLING OF EYES, FACE OR INSIDE OF NOSE. documented in this encounter Progress Notes * Tavia Ellis LPN - 03/25/2023 2:34 PM EST PRE - ADMINISTRATION DOCUMENTATION Are you experiencing any cold symptoms or fever? No Have you had Guillain-Mantachie Syndrome (an illness that causes paralysis) within the last 6 weeks? No Have you had the flu shot in the past? YES Have you ever had a reaction to the flu shot? No Tavia Ellis LPN, 03/25/2023 2:34 PM Immunization Administration Documentation Time Out Procedure Performed: Yes Patient Identified (Ask Name/Date of ): Yes Does the patient have a fever greater than 101 degrees today? No Patient allergic to latex? No VFC Stock: No Immunization(s) verified: Yes, Immunization Name: Flu, VIS Sheet(s) given: Yes Verified Side and Site: Yes Verified Shot(s) with Parent(s)/Patient: Yes * Donnie Anderson MD - 03/25/2023 2:25 PM EST Subjective Brady David is a 83 year old male. Chief Complaint Patient presents with Acute Pain in the right side. Medication Administration Flu and/or Pneumo Inj HPI: Here for acute rt lower back pain , last 5 days Persistent , moderate pain level Depending on movement, it causes more pain Not able to walk well for along time Uses a walker most of time Currently on PD for CKD, ESRD , CHF, HTN No abd distension , pain, bowel habit changes, urinary sx change , fever Type 2 DM - hba1c 8.5 Not controlled Will have routine visit with PCP in 2 wks - should get eye exam PMH: Patient Active Problem List Diagnosis Code Hypothyroidism E03.9 Gouty arthropathy M10.9 DYSLIPIDEMIA, GOAL LDL BELOW 100 E78.5 LVH (LEFT VENTRICULAR HYPERTROPHY) I51.7 Panic disorder F41.0 Anxiety state F41.1 Type 2 diabetes mellitus with hemoglobin A1c goal of less than 8.0% ([facility]) E11.9 Essential hypertension with goal blood pressure less than 140/90 I10 Renal osteodystrophy N25.0 History of thyroid cancer Z85.850 History of prostate cancer Z85.46 LBBB (left bundle branch block) I44.7 Type 2 diabetes mellitus with stage 4 chronic kidney disease, without long-term current use of insulin ([facility]) E11.22, N18.4 Kidney disease, chronic, stage IV (GFR 15-29 ml/min) ([facility]) N18.4 CKD, patient preferred treatment modality non-dialysis conservative care N18.9 Hyperparathyroidism, 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 Chronic diastolic congestive heart failure (HCC) I50.32 Chronic obstructive pulmonary disease (HCC) J44.9 Cyst of pancreas K86.2 Rotator cuff syndrome of left shoulder M75.102 Enlargement of aortic root ([facility]) I77.89 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 Pulmonary hypertension ([facility]) I27.20 Iron deficiency anemia D50.9 Chronic kidney disease (CKD), stage V ([facility]) N18.5 Hyponatremia E87.1 Hypokalemia E87.6 Atrial fibrillation ([facility]) I48.91 Hypotension I95.9 ESRD on peritoneal dialysis ([facility]) N18.6, Z99.2 Leakage of peritoneal dialysate into subcutaneous tissue of abdominal wall ([facility]) T85.631A Right inguinal hernia K40.90 Type 2 diabetes mellitus with chronic kidney disease on chronic dialysis, without long-term currentuse of insulin ([facility]) E11.22, N18.6, Z99.2 Hypertensive heart and chronic kidney disease with chronic diastolic congestive heart failure ([facility])I13.0, I50.32 Current Outpatient Medications Medication Sig Dispense Refill Blood Glucose Monitoring Suppl (Fundability) w/Device KIT Use up to 4 times a day 1 Kit 0 [employer] DELFamilyID LANCETS FINE MISC Use four times daily 100 Each 11 Allopurinol 100 MG Oral Tablet (Zyloprim) Take 1 Tablet by mouth in the morning. Do not start before August 27, 2022. 30 Tablet 3 Renal Vitamin 0.8 MG Oral Tablet Take by mouth. [facility] In Vitro Strip (Glucose Blood) USE UP [...] mouth in the morning. 60 Tablet 3 Clotrimazole-Betamethasone 1-0.05 % External Lotion (Lotrisone) Apply topically to affected area 2 times a day for 28 days. To affected area for 4 weeks, or until healed. 30 mL 1 Apixaban 2.5 MG Oral Tablet (Eliquis) Take 1 Tablet by mouth in the morning and 1 Tablet before bedtime. 60 Tablet 5 Torsemide 100 MG Oral Tablet (Demadex) Take 1 Tablet by mouth in the morning. 30 Tablet 5 Gabapentin 100 MG Oral Capsule (Neurontin) Take 1 Capsule by mouth in the morning and 1 Capsule at noon and 1 Capsule before bedtime. 90 Capsule 1 Cyclobenzaprine HCl 5 MG Oral Tablet (Flexeril) Take 1 Tablet by mouth in the morning and 1 Tablet before bedtime. 30 Tablet 1 glipiZIDE ER 10 MG Oral Tablet Extended Release 24 Hour (glipiZIDE XL) Take 1 Tablet by mouth in the morning. 30 minutes before a meal.. 30 Tablet 5 No current facility-administered medications for this visit. Past Medical History: Diagnosis Date Anxiety BPH [...] CARPAL TUNNEL SURGERY 10/28/2011 release right wrist, Stephanieki COLORECTAL CANCER SCREEN; NOT AT RISK 01/08/2007 DENTAL SURGERY PROCEDURE NEC EGD, FLEXIBLE, DIAGNOSTIC 08/29/2013 ESOPHAGOGASTRODUODENOSCOPY (EGD), FLEXIBLE, TRANSORAL, DIAGNOSTIC performed by Miquel Mendoza MD at ENDOSCOPY [facility] INFORMATION 1998 back surgery - "chipped bone away" INFORMATION 2009 Heart Cath INFORMATION Thyroidectomy. INSER ERICKA CAT,W/O PUMP;5YR/OLD Right 11/05/2022 INSERT TUNNELED CENTRAL VENOUS CATHETER AGE 6 OR OLDER performed by Bill Hansen DO at OR [facility] IR VENOUS ACCESS NON-MEDIPORT 09/03/2022 IR VENOUS ACCESS NON-MEDIPORT 10/22/2022 IR VENOUS ACCESS NON-MEDIPORT 12/24/2022 LAPAROSCOPY, W/ INSERT INTRAPERITONEAL CATH N/A 08/25/2022 LAPAROSCOPIC INSERTION INTRAPERITONEAL CANNULA OR CATHETER performed by Willie Musa MD at OR [facility] LUMBAR SPINE FUSION, POST INTERBODY 12/08/2012 Torreti PROSTATE CRYOABLATION 11/15/2008 CRYOSURGICAL ABLATION OF PROSTATE performed by MIKE CORBETT at OR [facility] REMOVAL OF THYMUS GLAND 05/10/2000 REPAIR INITIAL INGUINAL HERNIA REDUCIBLE AGE 5 OR MORE Right 11/12/2022 REPAIR INITIAL INGUINAL HERNIA REDUCIBLE AGE 5 OR MORE performed by Willie Musa MD at OR [facility] REVISION OF ULNAR NERVE AT ELBOW Review of patient's allergies indicates: Allergen Reactions Doxazosin Mesylate Other (Please comment) Citalopram Clonidine Hydrochloride Nausea/vomiting Nightmares, nervousness Reaction depending on brand!!! Must be produced by [employer] Hctz [Hydrochlorothiazide] Hyponatremia Hydralazine Diarrhea, testicular pain Januvia [Sitagliptin] Other (Please comment) Restlessness Lisinopril Cough Losartan Other (Please comment) Other Allergy (See Comments) Pt states he had reactions to many other medications, but does not know their names. Was encouraged to provide us with names. Statins myalgias on zocor Family History Problem Relation Age of Onset Diabetes Mother Other (Other) Father Parkinsons/? gout Cancer Sister 72 breast Diabetes Sister 61 NIDDM Diabetes Daughter IDDM, pump Gastro-intestinal disorder Daughter 40 pacemaker for stomach Hypertension Brother Other (Other) Brother ? gout Family Status Relation Status Mo at age 62 DM complications Fa at age 90 Parkinsons, ? gout Sis Alive breast cancer, NIDDM Bro Alive HTN, ? 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 Employer: [employer] Comment: [employer] Tobacco Use Smoking status: Former Packs/day: 0.75 Years: 17.00 Additional pack years: 0.00 Total pack years: 12.75 Types: Cigarettes Start date: 10/15/1961 Quit date: 05/10/1978 Years since quittin.9 Smokeless tobacco: Never Vaping Use Vaping Use: Never used Substance and Sexual Activity Alcohol use: No Drug use: No Sexual activity: Not on file Other Topics Concern Service Not Asked Blood Transfusions Not Asked Caffeine Concern Not Asked Occupational Exposure Not Asked Hobby Hazards Not Asked Sleep Concern Not Asked Stress Concern Not Asked Weight Concern Not Asked Special Diet Not Asked Back Care Not Asked Exercise Not Asked Bike Helmet Not Asked Seat Belt Yes Self-Exams Not Asked Social History Narrative Not on file Social Determinants of Health Financial Resource Strain: Not on file Food Insecurity: No Food Insecurity (06/10/2022) Hunger Vital Sign Worried About Running Out of Food in the Last Year: Never true Ran Out of Food in the Last Year: Never true Transportation Needs: Not on file Physical Activity: Not on file Stress: Not on file Social Connections: Not on file Intimate Partner Violence: Not on file Housing Stability: Not on file Review of Systems Constitutional: Positive for activity change (rt lower back pain) and fatigue. Negative for appetite change, chills, diaphoresis, fever and unexpected weight change. Respiratory: Negative for chest tightness, shortness of breath and wheezing. Cardiovascular: Negative for chest pain, palpitations and leg swelling. Gastrointestinal: Negative for abdominal distention, abdominal pain, blood in stool, diarrhea, nausea and vomiting. Genitourinary: Negative for flank pain. Musculoskeletal: Positive for arthralgias, back pain (rt lower) and gait problem. Neurological: Positive for weakness and numbness. Negative for dizziness and light-headedness. Psychiatric/Behavioral: Positive for sleep disturbance. Negative for agitation and behavioral problems. Objective BP 138/72 | Pulse 92 | Temp 36.8 C (98.2 F) (Temporal Artery) | Wt 88.2 kg (194 lb 6.4 oz) | BMI 30.45 kg/m | BSA 2.04 m Physical Exam Constitutional: General: He is not in acute distress. Appearance: Normal appearance. He is obese. He is not ill-appearing, toxic- appearing or diaphoretic. HENT: Head: Normocephalic and atraumatic. Nose: Nose normal. Eyes: Extraocular Movements: Extraocular movements intact. Musculoskeletal: General: Tenderness present. Back: Right lower leg: No edema. Left lower leg: No edema. Skin: Findings: No erythema or rash. Neurological: General: No focal deficit present. Mental Status: He is alert and oriented to person, place, and time. Gait: Gait abnormal. Psychiatric: Behavior: Behavior normal. 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 - Cyclobenzaprine HCl 5 MG Oral Tablet (Flexeril); Take 1 Tablet by mouth in the morning and 1 Tablet before bedtime. Donnie Anderson MD documented in this encounter Nursing Notes * Prerna Randolph Student - 03/25/2023 1:59 PM EST Chief Complaint Patient presents with Acute Pain in the right side. documented in this encounter Plan of Treatment Upcoming Encounters Date Type Department Care Team (Late st Contact Info) Description 04/08/2023 1:20 PM EST Office Visit [facility] [address] [place] [address] Pramod Damian MD [address] [place] [address] 06/02/2023 1:30 PM EST Office Visit Cardiology, [facility] [address] [facility] [place] [address] Bill Palencia PA-C [address] [place] [address] 07/26/2023 9:00 AM EDT Imaging Radiology [facility] [address] [place] [address] Scheduled Orders Name Type Priority Associated Diagnoses Orde r Schedule XR L SPINE AP AND LATERAL Medical Imaging Routine Acute right-sided low back pain without sciatica S/P lumbar fusion Ordered: 03/25/2023 Health Maintenance Due Date Last Done Comments [...] this encounter Medical Devices Implanted Type Area Coil Binder Device Identifier Shelf Expiration Date Model / Serial / Lot Mesh Flat Sheet [id number] - [id number] Implanted:Qty: 1 on 11/12/2022 by Willie Musa MD at OR [facility] Right: Anila GALICIA BARD : DAVOL 09/04/2025 [id number] / / [id number] documented as of this encounter Visit Diagnoses Diagnosis Acute right-sided low back pain without sciatica- Primary S/P lumbar fusion Arthrodesis status Need for prophylactic vaccination and inoculation against influenza Type 2 diabetes mellitus with hemoglobin A1c goal of less than 8.0% ([facility]) ESRD on peritoneal dialysis (HCC) End stage renal disease 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 No Care Teams Bellperson Relationship Specialty Start Date End Date Pramod Damian MD [address] [place] [address] PCP - General 04/10/02 documented as of this encounter
--- OUTSIDE RECORDS SUMMARY | 2023-08-22 12:06 | External Medical Summary ---
Author Name Unknown Address Unknown Organization [id number]:[facility] [address] [place] [address] Laboratory Report Ordering Provider Test Date Status MARK MEDINA 03/03/2023 12:17:10 Final Observation Date Value Abnormality Reference (Units ) Status TSH 03/03/2023 12:17:10 1.44 0.27-4.20 (uIU/mL) Final Performing Location [facility] - [address] [place] [address]
--- OUTSIDE RECORDS SUMMARY | 2023-08-22 12:06 | External Medical Summary | Summary of Care ---
Author Name Unknown Organization [facility] Address [address] [place] [address] Phone [phone] Care Team Providers Care Hand Endband Cutter Name Role Phone Neville David MD Primary Care Provider +1- [phone] Reason for Visit * Reason Onset Date Comments Medication Refill 03/04/2023 Encounter Details Date Type Department Care Team (Late st Contact Info) Description 03/04/2023 Refill [facility] [address] [place] [address] Neville David MD [address] [place] [address] Allergies Active Allergy Reactions Criticality [...] as of this encounter (statuses as of 03/05/2023) Medications Medication Sig Dispensed Refills Start Date End Date Status ASPIRIN 81 MG PO TABS Take by mouth. 0 Active Blood Glucose Monitoring Suppl (ONETOUCH VERIO) w/Device KIT Use up to 4 times a day 1 Kit 0 11/11/2017 Active Active StorageTOUCH DELICA LANCETS FINE MISC Use four times [...] 10/08/2022 Active LORazepam 0.5 MG Oral Tablet (Ativan)Indicatio ns:Panic disorder Take 1/2 to 1 tab by mouth up to three times per day as needed for severe anxiety 45 Tablet 0 10/16/2022 Active NomikuTouch VerBioSTL In Vitro Strip (Glucose Blood)Indications :Type 2 [...] Tablet Delayed Release Take by mouth. 0 Active Lactulose 10 GM/15ML Oral Solution (Constulose)Indic [...] Active Azithromycin 250 MG Oral Tablet (Zithromax Z-Chepe)Indications [...] or Dyspnea. 1 g 0 02/27/2023 Active predniSONE 20 MG Oral Tablet (Deltasone)Indica tions:Bronchitis, complicated Take 2 Tablets by mouth in the morning for 5 days. 10 Tablet 0 03/03/2023 3 Active Amoxicillin-Pot Clavulanate 875-125 MG Oral Tablet (Augmentin)Indica tions:Bronchitis, complicated Take 1 Tablet by mouth in the morning and 1 Tablet before bedtime. Do all this for 10 days. 20 Tablet 0 03/03/2023 3 Active Potassium Chloride ER 20 MEQ Oral Tablet Extended Release Take 2 Tablets by mouth in the morning. 60 Tablet 3 03/05/2023 Active Potassium Chloride ER 20 MEQ Oral Tablet Extended Release Take 2 Tablets by mouth in the morning. 60 Tablet 3 08/26/2022 3 Discontinue d(Refill) documented as of this encounter (statuses as of 03/05/2023) Active Problems Problem Noted Date Diagnosed Date [...] as of this encounter (statuses as of 03/05/2023) Resolved Problems Problem Noted Date Diagnosed Date Resolved Date Stage 3 chronic kidney disease 11/11/2018 04/27/2022 Hypertensive heart and kidne y disease with chronic diastolic congestive heart failure and stage 3 chronic kidney disease 06/30/201812/14 HTN, goal below 150/90 07/20/201702/23 Kidney disease, chronic, sta ge III (GFR 30-59 ml/min) 05/18/2016 07/19/2018 Overview: Per CKD protocol #1 Hypertensive heart disease w [facility] congestive heart failure 08/27/2014 08/27/2014 Hypertensive heart disease w [facility] congestive heart failure 08/27/2014 05/25/2019 [...] as of this encounter (statuses as of 03/05/2023) Immunizations Name Administration Dates Next Due COVID-19 mRNA, LNP-s, No Pre serve, 2-Dose Series (HelloFresh) 02/20/2021,01/30/2021 Pneumococcal Conjugate Vacc, 13 Valent (Prevnar) [...] Telephone Encounter - Neville David MD - 03/05/2023 11:44 AM EDTSigned Prescriptions: Disp Refills Potassium Chloride ER 20 MEQ Oral Tablet E*60 Tab*3 Sig: Take 2 Tablets by mouth in the morning.Authorizing Provider: NEVILLE DAVID * Telephone Encounter - Tiffanie Vogt [facility] - 03/05/2023 6:43 AM EDT Pending Prescriptions: Disp Refills Potassium Chloride ER 20 MEQ Oral Tablet E*60 Tab*3 Sig: Take 2 Tablets by mouth in the morning. * Telephone Encounter - Tiffanie Vogt RPh - 03/05/2023 6:42 AM EDT Med initially ordered upon hospital discharge. Please approve if appropriate to continue. Pending Prescriptions: Disp Refills Potassium Chloride ER 20 MEQ Oral Tablet E*60 Tab*3 Sig: Take 2 Tablets by mouth in the morning. Last Visit: 03/03/2023 (in office), Visit date not found (telemedicine) Next Visit: 04/08/2023 If no future appointments scheduled, and last appointment is greater than a year ago, please schedule patient for a follow-up appointment Last date the medication was ordered: 08/26/22 Pharmacy: [id number] Is this request for a controlled substance?No [...] AM POTASSIUM 4.1 05/09/2020 07:43 AM TSH 1.44 03/03/2023 12:17 PM TSH 3.23 05/09/2020 07:43 AM LDLCALC 110 02/07/2020 08:36 AM LDLDIRECT 84 01/06/2022 11:24 AM LDLDIRECT 95 05/09/2020 07:42 AM LDLDIRECT 134 (H) 07/27/2013 10:37 AM ALT 35 10/24/2022 09:50 PM ALT 30 05/09/2020 07:43 AM HGBA1C 8.5 (H) 02/19/2023 09:07 AM HGBA1C 8.3 (H) 05/09/2020 07:43 AM * Telephone Encounter - Delia Meredith PHARM Tech - 03/04/2023 11:25 AM EDT Did you pend patient's preferred pharmacy and medication before forwarding?yes Pharmacy: [id number] [facility] Pending Prescriptions: Disp Refills Potassium Chloride ER 20 MEQ Oral Tablet *60 Tab*3 Sig: Take 2 Tablets by mouth in the morning. Last Visit: 03/03/2023 (in office), Visit date not found (telemedicine) Next Visit: 04/08/2023 If no future appointments scheduled, and last appointment is greater than a year ago, please schedule patient for a follow-up appointment Last date the medication was ordered: 08/26/22 Is this request for a controlled substance?No [...] AM POTASSIUM 4.1 05/09/2020 07:43 AM TSH 1.44 03/03/2023 12:17 PM TSH 3.23 05/09/2020 07:43 AM LDLCALC 110 02/07/2020 08:36 AM LDLDIRECT 84 01/06/2022 11:24 AM LDLDIRECT 95 05/09/2020 07:42 AM LDLDIRECT 134 (H) 07/27/2013 10:37 AM ALT 35 10/24/2022 09:50 PM ALT 30 05/09/2020 07:43 AM HGBA1C 8.5 (H) 02/19/2023 09:07 AM HGBA1C 8.3 (H) 05/09/2020 07:43 AM documented in this encounter Plan of Treatment Upcoming Encounters Date Type Department Care Team (Late st Contact Info) Description 04/08/2023 1:20 PM EST Office Visit Family [facility] [place] [address] [facility] [place] [id number] Neville David MD [address] [place] [address] 06/02/2023 1:30 PM EST Office Visit Cardiology, [facility] [address] [facility] [place] [address] Bill Palencia PA-Ann [address] [facility] [place] [address] 07/26/2023 9:00 AM EDT Imaging Radiology [facility] [address] [facility] [place] [address] Health Maintenance Due Date Last Done Comments Alpha-1 Antitrypsin 1959 Zoster Vaccines (1 of 2) 1991 Hepatitis B (1 of 3 - Risk 3-dose series) 2001 DTaP,Tdap,and Td Vaccines (1 - Tdap) 04/28/2008 04/27/2008 DIABETES-EYE EXAM 03/29/2020 03/29/2019, , 04/17/2010, Additional history exists Diabetic Foot Exam 02/06/2021 [...] this encounter Medical Devices Implanted Type Area Principal Secretary Device Identifier Shelf Expiration Date Model / Serial / Lot Mesh Flat Sheet 1x4 [id number] - [id number] Implanted:Qty: 1 on 11/12/2022 by Willie Musa MD at OR [facility] Right: Groin CR BARD : DAVOL 09/04/2025 [id number] / / [id number] documented as of this encounter Advance Directives [...] the patient have Health Care Power of It Security Engineer? No Care Teams Hand Endband Cutter Relationship Specialty Start Date End Date Neville David MD [address] [place] [address] PCP - General 04/10/02 documented as of this encounter
--- OUTSIDE RECORDS SUMMARY | 2023-08-22 12:06 | External Medical Summary | Summary of Care ---
Author Name Unknown Organization [facility] Address [address] [place] [place] [address] Phone [phone] Care Team Providers Care Panel Laminator Name Role Phone Pramod Damian MD Primary Care Provider +1- [phone] Reason for Visit * Reason Comments Acute Zio patch applied Follow Up Encounter Details Date Type Department Care Team (Late st Contact Info) Description 03/09/2023 11:00 AM EDT Nurse Only Ancillary Department, [facility] [address] [place] [address] [facility], Nurse [address] [place] [address] Acute (Zio patch applied ); Follow Up [...] mouth. 0 Active Blood Glucose Monitoring Suppl (Keystone InsightsTOUCH VERIO) w/Device KIT Use up to 4 times a day 1 Kit 0 11/11/2017 Active Keystone InsightsTOUCH DELICA LANCETS FINE MISC Use four times [...] Description 04/08/2023 1:20 PM EST Office Visit [facility] [address] [place] [address] Pramod Damian MD [address] [place] [address] 06/02/2023 1:30 PM EST Office Visit Cardiology, [facility] [address] [facility] [place] [address] Bill Palencia PA-C [address] [place] [address] 07/26/2023 9:00 AM EDT Imaging Radiology [facility] [address] [place] [address] Health Maintenance Due Date Last Done Comments [...] this encounter Medical Devices Implanted Type Area Core Blower Device Identifier Shelf Expiration Date Model / Serial / Lot Mesh Flat Sheet [id number] - [id number] Implanted:Qty: 1 on 11/12/2022 by Willie Musa MD at OR [facility] Right: Groin CR BARD : DAVOL 09/04/2025 [id number] / / [id number] documented as of this encounter Visit Diagnoses [...] the patient have Health Care Power of Brassiere Cup Mold Cutter? No Care Teams Panel Laminator Relationship Specialty Start Date End Date Pramod Damian MD [address] [place] [facility] [place] [address] PCP - General 04/10/02 documented as of this encounter
--- OUTSIDE RECORDS SUMMARY | 2023-08-22 12:06 | External Medical Summary | Summary of Care ---
Author Name Unknown Organization [facility] Address [address] [place] [address] Phone [phone] Care Team Providers Care Corn Picker Name Role Phone Pramod Damian MD Primary Care Provider +1- [phone] Reason for Visit * Reason Onset Date Comments Other Respiratory Infection 02/27/2023 Encounter Details Date Type Department Care Team Description 02/27/[address] [facility] [address] [place] [address] Dimas Barney [facility] [address] [facility] [id number] LRTI (lower respiratory tract infection)* Allergies Active Allergy Reactions Severity Noted Date Comments Citalopram 04/20/2014 Clonidine Hydrochloride Nausea/vomiting 008 Nightmares, nervousness Reaction depending on brand!!! Must be produced by [employer] Elizabe Doxazosin Mesylate Other (Please comment) High 05/16/2007 Hydrochlorothiazide 08/30/2017 Hyponatremia Hydralazine 08/30/2017 Diarrhea, testicular pain Sitagliptin Other (Please comment) 06/01/2017 Restlessness Lisinopril Cough 02/13/2015 Losartan Other (Please comment) 08/30/2017 Other Allergy (See Comments) 012 Pt states he had reactions to many other medications, but does not know their names. Was encouraged to provide us with names. Statins 04/04/2003 myalgias on zocor documented as of this encounter (statuses as of 02/27/2023) Medications Medication Sig Dispensed Refills Start Date End Date Status ASPIRIN 81 MG PO TABS Take by mouth. 0 Active Blood Glucose Monitoring Suppl (ONETOUCH VERIO) w/Device KIT Use up to 4 times a day 1 Kit 0 11/11/2017 Active AdviceIQTOUCH DELICA LANCETS FINE MISC Use four times daily 100 Each 11 05/12/2019 Active Senna-Docusate Sodium 8.6-50 MG Oral Tablet Take 1 Tablet by mouth in the morning. 0 Active linaGLIPtin 5 MG Oral Tablet (Tradjenta) Take 1 Tablet by mouth in the morning. 90 Tablet 1 08/03/2022 Active Apixaban 2.5 MG Oral Tablet (Eliquis) Take 1 Tablet by mouth in the morning and 1 Tablet before bedtime. 60 Tablet 3 08/26/2022 Active Allopurinol 100 MG Oral Tablet (Zyloprim) Take 1 Tablet by mouth in the morning. Do not start before August 27, 2022. 30 Tablet 3 08/27/2022 Active Potassium Chloride ER 20 MEQ Oral Tablet Extended Release Take 2 Tablets by mouth in the morning. 60 Tablet 3 08/26/2022 Active Renal Vitamin 0.8 MG Oral Tablet [...] Active Azithromycin 250 MG Oral Tablet (Zithromax Z-Chepe)Indications:L RTI (lower respiratory tract infection) Take two tablets by mouth on first day, then 1 tablet daily until gone 6 Tablet 0 02/27/2023 Active Ventolin HFA 108 (90 Base) MCG/ACT Inhalation Aerosol SolutionIndications :LRTI (lower respiratory tract infection) Inhale 2 Puffs by mouth every 4 hours as needed for Wheezing or Dyspnea. 1 g 0 02/27/2023 Active documented as of this encounter (statuses as of 02/27/2023) Active Problems Problem Noted Date Type 2 diabetes mellitus wit h chronic kidney disease on chronic dialysis, without long-term current use of insulin 12/02/2022 Right inguinal hernia 11/12/2022 Leakage of peritoneal dialysate into sub cutaneous tissue of abdominal wall 11/02/2022 ESRD on peritoneal dialysis 10/26/2022 Hyponatremia 08/21/2022 Hypokalemia 08/21/2022 Atrial fibrillation 08/21/2022 Hypotension 08/21/2022 Iron deficiency anemia 08/20/2022 Chronic kidney disease (CKD), stage V Enlargement of aortic root 05/14/2022 Postoperative hypothyroidism 05/14/2022 Pulmonary hypertension 05/14/2022 Rotator cuff syndrome of left shoulder 1 06/28/2021 Chronic diastolic congestive heart failu re 03/17/2022 Chronic obstructive pulmonary disease Cyst of pancreas 03/17/2022 Hyperparathyroidism, secondary renal CKD, patient preferred treatment modalit y non-dialysis conservative care 09/19/2020 Kidney disease, chronic, stage IV (GFR 1 5-29 ml/min) 08/27/2020 Type 2 diabetes mellitus wit h stage 4 chronic kidney disease, without long-term current use of insulin 06/30/2018 LBBB (left bundle branch block) 02/29/20 18 History of thyroid cancer 02/23/2018 History of prostate cancer 02/23/2018 Renal osteodystrophy 02/10/2018 Essential hypertension with goal blood p ressure less than 140/90 04/27/2016 Type 2 diabetes mellitus with hemoglobin A1c goal of less than 8.0% 04/17/2013 Overview: ICD-10 update of inactive term LVH (LEFT VENTRICULAR HYPERTROPHY) 07/26 Panic disorder 07/26/2009 Anxiety state 07/26/2009 DYSLIPIDEMIA, GOAL LDL BELOW 100 009 Overview: Per Lipid Taxonomy. Gouty arthropathy 02/21/2009 Overview: ICD-9 Code Update Hypothyroidism 11/09/2003 documented as of this encounter (statuses as of 02/27/2023) Resolved Problems Problem Noted Date Resolved Date Stage 3 chronic kidney disease 11/11/2018 1 06/28/2021 Hypertensive heart and kidne y disease with chronic diastolic congestive heart failure and stage 3 chronic kidney disease 06/30/2018 12/14/2022 HTN, goal below 150/90 07/20/2017 8 Kidney disease, chronic, stage III (GFR 30-59 ml /min) 05/18/2016 07/19/2018 Overview: Per CKD protocol #1 Hypertensive heart disease with congestive heart failure 08/27/2014 08/27/2014 Hypertensive heart disease without congestive he art failure 08/27/2014 05/25/2019 Overview: duplicate Bradycardia, sinus 08/27/2014 11/11/2018 CKD (chronic kidney disease) stage 2, GFR 60-89 ml/min 10/26/2012 09/04/2016 HTN, white coat 04/18/2012 07/10/2014 Hyponatremia 11/20/2011 11/11/2018 HTN, goal below 140/90 11/12/2010 6 HTN, goal below 130/80 06/05/2009 1 Overview: Per HTN Taxonomy. Type 2 diabetes mellitus wit h hemoglobin A1c goal of less than 7.0% 03/07/2009 04/17/2013 Overview: Per Diabetes Taxonomy. ICD-10 update of inactive term Malignant hypertension requiring acute intensive management 11/17/2007 02/23/2018 Malignant neoplasm of prostate 11/15/2007 1 ADVANCE DIRECTIVE INFORMATION 11/07/2004 Overview: no living will, info given prior visit Visual disturbance 12/18/2002 02/23/2018 HTN, goal below 140/90 06/06/2002 0 Overview: Per HTN Taxonomy. Dyslipidemia, goal to be determined 06/06/2002 04/24/2009 Overview: Per Lipid Taxonomy. Type 2 diabetes mellitus wit h hemoglobin A1c goal of less than 7.0% 06/06/2002 03/07/2009 Overview: Per Diabetes Taxonomy. ICD-10 update of inactive term MALIGN NEOPL THYROID 06/06/2002 02/23/2018 Gouty arthropathy 06/06/2002 02/21/2009 Overview: ICD-9 Code Update ICD-10 update of inactive term documented as of this encounter (statuses as of 02/27/2023) Immunizations Name Administration Dates Next Due COVID-19 mRNA, LNP-s, No Pre serve, 2-Dose Series ([employer]) 02/20/2021,01/30/2021 Pneumococcal Conjugate Vacc, 13 Valent (Prevnar) [...] 05/10/1978 Smokeless Tobacco: Never Tobacco Cessation:Counseling Given: Yes Alcohol Use Standard Drinks/Week Comments No 0 (1 standard drink = 0.6 oz pur e alcohol) Food Insecurity Answer Date Recorded Within the past 12 months, y ou worried that your food would run out before you got money to buy more. Never true 01/25/2020 Within the past 12 months, t he food you bought just didn't last and you didn't have money to get more. Never true 01/25/2020 Sex Assigned at Date Recorded Male 11/15/2019 2:37 PM E DT Job Start Date Occupation Industry Not on file Not on file Not on file documented as of this encounter Last Filed Vital Signs Vital Sign Reading Time Taken Comments Blood Pressure 128/84 02/27/2023 10:47 AM EDT Pulse 84 02/27/2023 10:47 AM EDT Temperature 37 C (98.6 F) 02/27/2023 10:47 AM EDT Respiratory Rate 15 02/27/2023 10:47 AM EDT Oxygen Saturation 97% 02/27/2023 10:47 AM EDT Inhaled Oxygen Concentration - - Weight 86.6 kg (191 lb) 02/27/2023 10:47 AM EDT Height 170.2 cm (5' 7") 02/27/2023 10:47 AM EDT Body Mass Index 29.91 02/27/2023 10:47 AM EDT documented in this encounter Functional Status [...] this encounter Patient Instructions * Patient Instructions* Dimas Barney PA-C - 02/27/2023 11:37 AM EDT Zpack Albuterol 2 puffs up to every 4 hours as needed OTC decongestants: Sudafed, Mucinex-D (may have to get from behind pharmacy counter; you have to show your ID) can be used for nasal/sinus congestion for just a few days. If you have high blood pressure, you can use Coricidin. Continue supportive measures: Increase clear, non-sugary fluid intake. Get plenty of rest Use a cool mist vaporizer or humidifier daily and you can take hot showers for steam therapy. Do warm salt water gargles and/or chloraseptic throat spray, throat lozenges (Cepacol) for any sorethroat. Honey, if not concerned about diabetes or elevated blood sugar levels, can also be very helpful forsorethroat. You may also use ibuprofen or acetaminophen OTC for relief of pain or fevers. Follow up with PCP or return if no improvement in a week, or sooner if worse. Go to the ED if any severe symptoms appear acutely documented in this encounter Progress Notes * Dimas Barney PA-C - 02/27/2023 11:25 AM EDT Nursing Notes: Maria De Jesus Woody, EVI 02/27/23 1050 Signed Brady David is a 83 year old male who presents to clinic today for... Main Symptoms: cough, wheeze How long: apporx week or so Tried: vicks, heating pad Pt accompanied by: self DIALYSIS patient Brady David is a 83 year old male with a PMH of DM2, hypothyroidism, COPD, Afib on eliquis, CHF, PHTN, CKDV on dialysis, who presents with upper and lower respiratory symptoms for 2-3 week(s) Patient was accompanied by Self. HPI Severity of Symptoms: Moderate Modifying Factors (what was done since onset of symptoms): vicks, heating pad Timing (how often does it occur): constant Quality (feels like): cough for 2-3 weeks, now productive Other associated Signs and Symptoms: mild sinus Denies f/s/ch, sob, but had some wheezing last night. Denies CP, n/v/d/c. ROS See HPI HISTORY Past Medical History: Diagnosis Date Anxiety BPH [...] performed by Miquel Mendoza MD at ENDOSCOPY [facility] INFORMATION 1998 back surgery - "chipped bone away" INFORMATION 2009 Heart Cath INFORMATION Thyroidectomy. INSER ERICKA CAT,W/O PUMP;5YR/OLD Right 11/05/2022 INSERT TUNNELED CENTRAL VENOUS CATHETER AGE 5 OR OLDER performed by Bill Hansen DO at OR [facility] IR VENOUS ACCESS NON-MEDIPORT 09/03/2022 IR VENOUS ACCESS NON-MEDIPORT 10/22/2022 IR VENOUS ACCESS NON-MEDIPORT 12/24/2022 LAPAROSCOPY, W/ INSERT INTRAPERITONEAL CATH N/A 08/25/2022 LAPAROSCOPIC INSERTION INTRAPERITONEAL CANNULA OR CATHETER performed by Willie Musa MD at OR [facility] LUMBAR SPINE FUSION, POST INTERBODY 12/08/2012 Torreti PROSTATE CRYOABLATION 11/15/2008 CRYOSURGICAL ABLATION OF PROSTATE performed [place] MIKE CORBETT [place] [facility] [place] REMOVAL OF THYMUS GLAND 05/10/2000 REPAIR INITIAL INGUINAL HERNIA REDUCIBLE AGE 5 OR MORE Right 11/12/2022 REPAIR INITIAL INGUINAL HERNIA REDUCIBLE AGE 5 OR MORE performed by Willie Musa MD at OR [facility] REVISION OF ULNAR NERVE AT ELBOW Social History Tobacco Use Smoking status: Former Packs/day: 0.75 Years: 17.00 Pack years: 12.75 Types: Cigarettes Start date: 10/15/1961 Quit date: 05/10/1978 Years since quittin.8 Smokeless tobacco: Never Substance Use Topics Alcohol use: No Vaping/E-Cigarette Use Vaping/E-Cigarette Use Never User Vaping/E-Cigarette Substances Vaping/E-Cigarette Devices Current Outpatient Medications Medication Sig Dispense Refill Senna-Docusate Sodium 8.6-50 MG Oral Tablet Take 1 Tablet by mouth in the morning. linaGLIPtin 5 MG Oral Tablet (Tradjenta) Take 1 Tablet by mouth in the morning. 90 Tablet 1 Apixaban 2.5 MG Oral Tablet (Eliquis) Take 1 Tablet by mouth in the morning and 1 Tablet before bedtime. 60 Tablet 3 Allopurinol 100 MG Oral Tablet (Zyloprim) Take 1 Tablet by mouth in the morning. Do not start before August 27, 2022. 30 Tablet 3 Potassium Chloride ER 20 MEQ Oral Tablet Extended Release Take 2 Tablets by mouth in the morning. 60 Tablet 3 Renal Vitamin 0.8 MG Oral Tablet Take by mouth. glipiZIDE ER 10 MG Oral Tablet Extended Release 24 Hour (glipiZIDE XL) Take 1 Tablet by mouth in the morning. 30 minutes before a meal.. 30 Tablet 5 LORazepam 0.5 MG Oral Tablet (Ativan) Take 1/2 to 1 tab by mouth up to three times per day as needed for severe anxiety 45 Tablet 0 Torsemide 100 MG Oral Tablet (Demadex) Take 1 Tablet by mouth in the morning. Do not start before November 07, 2022. (Patient taking differently: Take 0.5 Tablets by mouth in the morning.) 30 Tablet 3 Lactulose 10 GM/15ML Oral Solution [...] breakfast or other meds) 90 Tablet 3 Azithromycin 250 MG Oral Tablet (Zithromax Z-Chepe) Take two tablets by mouth on first day, then 1 tablet daily until gone 6 Tablet 0 Ventolin HFA 108 (90 Base) MCG/ACT Inhalation Aerosol Solution Inhale 2 Puffs by mouth every 4 hours as needed for Wheezing or Dyspnea. 1 g 0 ASPIRIN 81 MG PO TABS Take by mouth. (Patient not taking: Reported on 12/02/2022) Blood Glucose Monitoring Suppl (Route4MeUCH VERIO) w/Device KIT Use up to 4 times a day 1 Kit 0 AdviceIQTOUCH DELICA LANCETS FINE MISC Use four times daily 100 Each 11 FittrTouch Verio In Vitro Strip (Glucose Blood) USE UP TO FOUR TIMES A DAY 400 Strip 3 glipiZIDE 10 MG Oral Tablet (Glucotrol) Take 1 Tablet by mouth in the morning and 1 Tablet before bedtime. 30 minutes before a meal. 180 Tablet 3 Renvela 800 MG Oral Tablet Take 1 Tablet by mouth in the morning and 1 Tablet at noon and 1 Tablet before bedtime. (Patient not taking: Reported on 01/05/2023) Ferrous Sulfate 324 MG Oral Tablet Delayed Release Take by mouth. (Patient not taking: Reported on 02/27/2023) No current facility-administered medications for this visit. Review of patient's allergies indicates: Allergen Reactions Doxazosin Mesylate Other (Please comment) Citalopram Clonidine Hydrochloride Nausea/vomiting Nightmares, nervousness Reaction depending on brand!!! Must be produced by [employer] Hctz [Hydrochlorothiazide] Hyponatremia Hydralazine Diarrhea, testicular pain [...] Hypertension Brother Other (Other) Brother ? gout OBJECTIVE BP 128/84 | Pulse 84 | Temp 37 C (98.6 F) | Resp 15 | Ht 1.702 m (5' 7") | Wt 86.6 kg (191 lb)| SpO2 97% | BMI 29.91 kg/m | BSA 2.02 m Wt Readings from Last 1 Encounters: 02/27/23 86.6 kg (191 lb) General Appearance: awake, alert, no apparent distress HEENT: perrl and eomi tms - clear, normal light reflex, no erythema + red and irritated pharynx No sinus tenderness or facial pain to percussion No turbinate engorgement or discharge Neck: normal, supple, no adenopathy Respiratory: no rhonchi, no wheezes, and +rales RLL Heart: no murmurs , no rubs, no gallops, and irregularly irregular Skin: skin color, texture, turgor are normal, no rashes or significant lesions Patient Instructions Zpack Albuterol 2 puffs up to every 4 hours as needed OTC decongestants: Sudafed, Mucinex-D (may have to get from behind pharmacy counter; you have to show your ID) can be used for nasal/sinus congestion for just a few days. If you have high blood pressure, you can use Coricidin. Continue supportive measures: Increase clear, non-sugary fluid intake. Get plenty of rest Use a cool mist vaporizer or humidifier daily and you can take hot showers for steam therapy. Do warm salt water gargles and/or chloraseptic throat spray, throat lozenges (Cepacol) for any sorethroat. Honey, if not concerned about diabetes or elevated blood sugar levels, can also be very helpful forsorethroat. You may also use ibuprofen or acetaminophen OTC for relief of pain or fevers. Follow up with PCP or return if no improvement in a week, or sooner if worse. Go to the ED if any severe symptoms appear acutely ASSESSMENT AND PLAN LRTI (lower respiratory tract infection) (Primary) - Azithromycin 250 MG Oral Tablet (Zithromax Z-Chepe); Take two tablets by mouth on first day, then 1tablet daily until gone - Ventolin HFA 108 (90 Base) MCG/ACT Inhalation Aerosol Solution; Inhale 2 Puffs by mouth every 4 hours as needed for Wheezing or Dyspnea. VS stable. Pt stable Follow Up: Return for Patient to follow up with Primary Care Provider as directed. | For: Patient to follow up with Primary Care Provider as directed Patient goals for plan of care were discussed Dimas Barney PA-C [address] [address] documented in this encounter Nursing Notes * Maria De Jesus Woody LPN - 02/27/2023 10:43 AM EDT Brady David is a 83 year old male who presents to clinic today for... Main Symptoms: cough, wheeze How long: apporx week or so Tried: vicks, heating pad Pt accompanied by: self DIALYSIS patient documented in this encounter Plan of Treatment Upcoming Encounters Date Type Specialty Care Team Description 04/08/2023 Office Visit Family Medicine Pramod Damian MD [address], [place] [id number] 06/02/2023 Office Visit Cardiology Bill Palencia PA-C [address] [place] [address] 07/26/2023 Imaging Radiology Health Maintenance Due Date Last Done Comments Alpha-1 Antitrypsin 1958 Zoster Vaccines (1 of 2) 01/21/1960 DTaP,Tdap,and Td Vaccines (1 - Tdap) 04/28/2008 04/27/2008 DIABETES-EYE EXAM 03/29/2020 03/29/2019, , 04/17/2010, Additional history exists Diabetic Foot Exam 02/06/2021 02/07/2020, 0 07/04/2018, 06/30/2017, Additional history exists *COPD SEVERITY VERIFIED BY PFT 03/19/2022 COVID-19 Vaccine (3 season) 2023 02/20/2021, 01/30/2021 Influenza Vaccine (FLU shot) (#1) 2023 03/17/2022, 04/28/2021, 02/07/2020, Additional history exists Depression Screening 03/17/2023 03/17/2022 HbA1c 08/21/2023 02/19/2023, 10/09, 08/22/2022, Additional history exists O2 ASSESSMENT COMPLETED IN PAST YEAR FOR COPD 11/13/2023 11/12/2022 TSH 02/20/2024 02/19/2023, 11/08, 01/06/2022, Additional history exists Pneumococcal Vaccine: 65+ Years Completed 01/26/2018, 01/30/2006 GARDASIL-HPV IMMUNIZATION SERIES Aged Out No longer eligible based on patient's age to complete this topic Hepatitis B Aged Out No longer eligi ble based on patient's age to complete this topic MENINGOCOCCAL (MENACTRA/MENVEO) Aged Out No longer eligible based on patient's age to complete this topic documented as of this encounter Medical Devices Implanted Type Area Chief Cruiser Device Identifier Shelf Expiration Date Model / Serial / Lot Mesh Flat Sheet 1x4 [id number] - [id number] Implanted:Qty: 1 on 11/12/2022 by Willie Musa MD at OR [facility] Right: Reginaldin FRIDA BARD : KYRA 09/04/2025 [id number] / / [id number] documented as of this encounter Visit Diagnoses Diagnosis LRTI (lower respiratory tract infection)- Primary Other diseases of respiratory system, not elsewhere classified documented in this encounter Advance Directives Latest [...] the patient have Health Care Power of Cigarette Stamper? No Care Teams Corn Picker Relationship Specialty Start Date End Date Pramod Damian MD [address] [place] [address] PCP - General 04/10/02 documented as of this encounter
--- OUTSIDE RECORDS SUMMARY | 2023-08-22 12:06 | External Medical Summary | Summary of Care ---
Author Name Unknown Organization [facility] Address [address] [place] [address] Phone [phone] Care Team Providers Care Director Of Graduate Medical Education Name Role Phone Pramod Damian MD Primary Care Provider +1- [phone] Reason for Visit * Reason Comments Outpatient Testing Encounter Details Date Type Department Care Team (Late st Contact Info) Description 03/03/2023 12:00 PM EDT Laboratory Laboratory, [place] [address] [place] [address] [place] [address] [place] [address] Acquired hypothyroidism Allergies Active Allergy Reactions Criticality [...] as of this encounter (statuses as of 03/03/2023) Medications Medication Sig Dispensed Refills Start Date [...] 02/27/2023 Active predniSONE 20 MG Oral Tablet (Deltasone)Indicat ions:Bronchitis, complicated Take 2 Tablets by mouth in the morning for 5 days. 10 Tablet 0 03/03/2023 03/08/2023 Active Amoxicillin-Pot Clavulanate 875-125 MG Oral Tablet (Augmentin)Indicat ions:Bronchitis, complicated Take 1 Tablet by mouth in the morning and 1 Tablet before bedtime. Do all this for 10 days. 20 Tablet 0 03/03/2023 03/13/2023 Active documented as of this encounter (statuses as of 03/03/2023) Active Problems Problem Noted Date Diagnosed Date [...] as of this encounter (statuses as of 03/03/2023) Resolved Problems Problem Noted Date Diagnosed Date [...] failure 08/27/2014 08/27/2014 [facility] failure 08/27/2014 05/25/2019 Overview: [...] as of this encounter (statuses as of 03/03/2023) Immunizations Name Administration Dates Next Due COVID-19 [...] Description 04/08/2023 1:20 PM EST Office Visit [facility] [address] [place] [address] Pramod Damian MD [address] [place] [address] 06/02/2023 1:30 PM EST Office Visit Cardiology, [facility] [address] [place] [address] Bill Palencia PA-C [address] [place] [address] 07/26/2023 9:00 AM EDT Imaging Radiology [facility] [address] [place] [address] Pending Results Name Type Priority Associated Diagnoses Date /Time TSH WITH FREE T4 IF INDICATED Lab Routine Acquired hypothyroidism 03/03/2023 12:17 PM EDT Health Maintenance Due Date Last [...] this encounter Medical Devices Implanted Type Area Sack Department Supervisor Device Identifier Shelf Expiration Date Model / Serial / Lot Mesh Flat Sheet 1x4 [id number] - [id number] Implanted:Qty: 1 on 11/12/2022 by Willie Musa MD at OR [facility] Right: Groin CR BARD : DAVOL 09/04/2025 [id number] / / [id number] documented as of this encounter Visit Diagnoses Diagnosis Acquired hypothyroidism Unspecified hypothyroidism documented in this [...] patient have Health Care Power of Electrical Instrument Maker? No Care Teams Director Of Graduate Medical Education Relationship Specialty Start Date End Date Pramod Damian MD [address] [place] [address] PCP - General 04/10/02 documented as of this encounter
--- OUTSIDE RECORDS SUMMARY | 2023-08-22 12:06 | External Medical Summary | Summary of Care ---
Author Name Unknown Organization [facility] Address [address] [place] [address] Phone [phone] Care Team Providers Care Mixing Plant Operator Name Role Phone Pramod Damian MD Primary Care Provider +1- [phone] Reason for Visit * Reason Onset Date Comments Advice 03/02/2023 Encounter Details Date Type Department Care Team (Late st Contact Info) Description 03/02/2023 Telephone [facility] [address] [place] [address] Pramod Damian MD [address] [place] [address] Advice Allergies Active Allergy Reactions [...] as of this encounter (statuses as of 03/02/2023) Medications Medication Sig Dispensed Refills Start Date End Date Status ASPIRIN 81 MG PO TABS Take by mouth. 0 Active Blood Glucose Monitoring Suppl (ONETOUCH VERIO) w/Device KIT Use up to 4 times a day 1 Kit 0 11/11/2017 Active NabtoTOUCH DELICA LANCETS FINE MISC Use four times [...] as of this encounter (statuses as of 03/02/2023) Active Problems Problem Noted Date Diagnosed Date [...] as of this encounter (statuses as of 03/02/2023) Resolved Problems Problem Noted Date Diagnosed Date Resolved Date Stage 3 chronic kidney disease 11/11/2018 04/27/2022 Hypertensive heart and kidne y disease with chronic diastolic congestive heart failure and stage 3 chronic kidney disease 06/30/201812/14 HTN, goal below 150/90 07/20/201702/23 Kidney disease, chronic, sta ge III (GFR 30-59 ml/min) 05/18/2016 07/19/2018 Overview: Per CKD protocol #1 Hypertensive heart disease w [facility] congestive heart failure 08/27/2014 08/27/2014 [facility] 08/27/2014 05/25/2019 Overview: duplicate [...] as of this encounter (statuses as of 03/02/2023) Immunizations Name Administration Dates Next Due COVID-19 mRNA, LNP-s, No Pre serve, 2-Dose Series ([employer]) 02/20/2021,01/30/2021 Pneumococcal Conjugate Vacc, 13 Valent (Prevnar) [...] encounter Miscellaneous Notes * Telephone Encounter - MIRZA Barragan - 03/02/2023 9:09 AM EDT Nothing available today. 03/02/2023 * Telephone Encounter - Holly Hough LPN - 03/02/2023 8:40 AM EDT Pt is scheduled tomorrow, if nothing available today I think he is ok to wait * Telephone Encounter - MIRZA Velasquez - 03/02/2023 8:09 AM EDT No Appointments Available Patient declined appointments?: No What Visit Type is needed? Acute If Acute Visit Type is needed, were surrounding clinics offered to patient (Yes/No)? Yes Was patient offered appointments with other available providers (Yes/No)? Yes See Call Details? (Yes or No): Yes documented in this encounter Plan of Treatment Upcoming Encounters Date Type Department Care Team (Late st Contact Info) Description 03/03/2023 11:40 AM EDT Office Visit [facility] [address] [place] [facility] [place] [address] [facility] [address] [facility] [place] [address] 04/08/2023 1:20 PM EST [facility] [address] [facility] [address] Pramod Damian MD [address] [place] [address] 06/02/2023 1:30 PM EST Office Visit Cardiology, [facility] [address] [place] [address] Bill Palencia, PA-C [address] [place] [address] 07/26/2023 9:00 AM EDT Imaging Radiology [facility] [address] [place] [address] Health Maintenance Due Date Last Done Comments [...] this encounter Medical Devices Implanted Type Area Drug Abuse Social Worker Device Identifier Shelf Expiration Date Model / Serial / Lot Mesh Flat Sheet 1x4 [id number] - [id number] Implanted:Qty: 1 on 11/12/2022 by Willie Musa MD at OR [facility] Right: Groin CR BARD : DAVOL 09/04/2025 [id number] / / [id number] documented as of this encounter Advance Directives [...] the patient have Health Care Power of Hvac Estimator? No Care Teams Mixing Plant Operator Relationship Specialty Start Date End Date Pramod Damian MD [address] [place] [address] PCP - General 04/10/02 documented as of this encounter
--- OUTSIDE RECORDS SUMMARY | 2023-08-22 12:06 | External Medical Summary | Summary of Care ---
Author Name Unknown Organization [facility] Address [address] [place] [address] Phone [phone] Care Team Providers Care Quarantine Inspector Name Role Phone Pramod Damian MD Primary Care Provider +1- [phone] Reason for Visit * Reason Comments Acute Cough and congestion x 1 week Encounter Details Date Type Department Care Team (Late st Contact Info) Description 03/03/2023 11:40 AM EDT Office Visit [facility] [address] [place] [address] Bill Lomeli MD [address] [place] [address] Bronchitis, complicated* Allergies Active Allergy Reactions Criticality Noted Date [...] mouth. 0 Active Blood Glucose Monitoring Suppl (MotorExchangeTOUCH VERIO) w/Device KIT Use up to 4 times a day 1 Kit 0 11/11/2017 Active MotorExchangeTOUCH DELICA LANCETS FINE MISC Use four times [...] Sign Reading Time Taken Comments Blood Pressure 130/72 03/03/2023 11:16 AM EDT Pulse 119 03/03/2023 11:16 AM EDT Temperature 36.3 C (97.3 F) 03/03/2023 11:16 AM E DT Respiratory Rate 15 03/03/2023 11:16 AM EDT Oxygen Saturation 98% 03/03/2023 11:16 AM EDT Inhaled Oxygen Concentration - - Weight 87.6 kg (193 lb 3.2 oz) 03/03/2023 11:16 AM EDT Height - - Body Mass Index 30.26 02/27/2023 10:47 AM EDT documented in this [...] as of this encounter Progress Notes * Bill Lomeli MD - 03/03/2023 11:38 AM EDT Subjective: Brady David is a 83 year old male. Chief Complaint Patient presents with Acute Cough and congestion x 1 week HPI: 83-year-old who has a known history of end-stage renal disease on peritoneal dialysis and chronic atrial fibrillation and type 2 diabetes as well as diastolic heart failure is seen today with the 2 week history of respiratory symptoms. He believes this all began with cold type of symptoms as he had some head congestion and then cough. The cough has persisted. He is bringing up dawn thick phlegm. He was seen in [facility] care 5 days ago and was given a prescription for albuterol inhaler which he has not found to be helpful as well as a Z-Chepe. He took the last azithromycin pill the day. He seen because he is not improving. He has not only the cough and phlegm but also some shortness of b reath with activity. He did do a COVID test early on about 2 weeks ago which was negative. He is supposed to be on torsemide 100 mg daily but he tells me about 2 weeks ago he decrease the dose from 100-50 mg a day. He was having problems with 100 mg a day seemingly causing diffuse pain and sluggishness. Patient Active Problem List Diagnosis Code Hypothyroidism E03.9 Gouty arthropathy M10.9 DYSLIPIDEMIA, GOAL LDL BELOW 100 E78.5 LVH (LEFT VENTRICULAR HYPERTROPHY) I51.7 Panic disorder F41.0 Anxiety state F41.1 Type 2 diabetes mellitus with hemoglobin A1c goal of less than 8.0% ([facility]) E11.9 Essential hypertension with goal blood pressure less than 140/90 I10 Renal osteodystrophy N25.0 History of thyroid cancer Z85.850 History of prostate cancer Z85.46 LBBB (left bundle branch block) I44.7 Type 2 diabetes mellitus with stage 4 chronic kidney disease, without long-term current use of insulin ([facility]) E11.22, N18.4 Kidney disease, chronic, stage IV (GFR 15-29 ml/min) ([facility]) N18.4 CKD, patient preferred treatment modality non-dialysis conservative care N18.9 Hyperparathyroidism, secondary renal ([facility]) N25.81 Chronic diastolic congestive heart failure ([facility]) I50.32 Chronic obstructive pulmonary disease ([facility]) J44.9 Cyst of pancreas K86.2 Rotator cuff syndrome of left shoulder M75.102 Enlargement of aortic root ([facility]) I77.89 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 Pulmonary hypertension ([facility]) I27.20 Iron deficiency anemia D50.9 Chronic kidney disease (CKD), stage V ([facility]) N18.5 Hyponatremia E87.1 Hypokalemia E87.6 Atrial fibrillation ([facility]) I48.91 Hypotension I95.9 ESRD on peritoneal dialysis ([facility]) N18.6, Z99.2 Leakage of peritoneal dialysate into subcutaneous tissue of abdominal wall ([facility]) T85.631A Right inguinal hernia K40.90 Type 2 diabetes mellitus with chronic kidney disease on chronic dialysis, without long-term currentuse of insulin ([facility]) E11.22, N18.6, Z99.2 Current Outpatient Medications Medication Sig Dispense Refill Blood Glucose Monitoring Suppl ([employer]) w/Device KIT Use up to 4 times a day 1 Kit 0 I3 PrecisionUCH DELSchrodinger LANCETS FINE MISC Use four times daily 100 Each 11 Senna-Docusate Sodium 8.6-50 MG Oral Tablet Take 1 Tablet by mouth in the morning. Apixaban 2.5 MG Oral Tablet (Eliquis) Take [...] needed for severe anxiety 45 Tablet 0 [employer] In Vitro Strip (Glucose Blood) USE UP TO FOUR TIMES A DAY 400 Strip 3 Torsemide 100 MG Oral Tablet (Demadex) Take 1 Tablet by mouth in the morning. Do not start before November 07, 2022. (Patient taking differently: Take 0.5 Tablets by mouth in the morning.) 30 Tablet 3 glipiZIDE 10 MG Oral Tablet (Glucotrol) [...] for Wheezing or Dyspnea. 1 g 0 predniSONE 20 MG Oral Tablet (Deltasone) Take 2 Tablets by mouth in the morning for 5 days. 10 Tablet 0 Amoxicillin-Pot Clavulanate 875-125 MG Oral Tablet (Augmentin) Take 1 Tablet by mouth in the morning and 1 Tablet before bedtime. Do all this for 10 days. 20 Tablet 0 ASPIRIN 81 MG PO TABS Take by mouth. (Patient not taking: Reported on 12/02/2022) linaGLIPtin 5 MG Oral Tablet (Tradjenta) Take 1 Tablet by mouth in the morning. (Patient not taking: Reported on 03/03/2023) 90 Tablet 1 Renvela 800 MG Oral Tablet Take 1 [...] depending on brand!!! Must be produced by [employer] Hctz [Hydrochlorothiazide] Hyponatremia Hydralazine Diarrhea, testicular pain Januvia [Sitagliptin] Other (Please comment) Restlessness Lisinopril Cough Losartan Other (Please comment) Other Allergy (See Comments) Pt states he had reactions to many other medications, but does not know their names. Was encouraged to provide us with names. Statins myalgias on zocor Objective: BP 130/72 | Pulse 119 | Temp 36.3 C (97.3 F) | Resp 15 | Wt 87.6 kg (193 lb 3.2 oz) | SpO2 98% | BMI 30.26 kg/m | BSA 2.04 m Physical Exam: CONST: alert, pleasant, no acute distress HEAD: normocephalic, atraumatic NECK: supple, soft, no adenopathy EARS: canals normal, TMs normal Eyes - PERRLA, EOM'I OROPHARYNX: clear, no swelling or erythema, moist CV: Fast with an irregular irregular rhythm. CHEST: He has some fine bibasilar crackles. Maybe some slight decreased breath sounds in the right base. No wheezing even with forced expiration ABD: soft, non tender, non distended, no masses or hepatosplenomegaly Extremities-trace bilateral ankle edema ASSESSMENT/PLAN: Bronchitis, complicated (Primary) verses pneumonia although I think that is less likely. He may have some worsening of underlying heart failure complicating matters and this may be due to his decreasing the torsemide. - XR CHEST 2 VIEWS - predniSONE 20 MG Oral Tablet (Deltasone); Take 2 Tablets by mouth in the morning for 5 days. He is aware that the prednisone is going to cause his blood sugars to be a good bit higher but though come back down - Amoxicillin-Pot Clavulanate 875-125 MG Oral Tablet (Augmentin); Take 1 Tablet by mouth in the morning and 1 Tablet before bedtime. Do all this for 10 days. He is agreeable to going back to 100 mg of torsemide least on a short term basis. Ultimately will have to figure out whether the higher dose is Um helping his respiratory status. He is scheduled to see Dr. Damian in about 5 weeks. Bill Lomeli MD documented in this encounter Nursing Notes * Mel Ardon LPN - 03/03/2023 11:25 AM EDT The patient has been properly identified by confirmation of name and date of . Chief Complaint Patient presents with Acute Cough and congestion x 1 week documented in this encounter Plan of Treatment Upcoming Encounters Date Type Department Care Team (Late st Contact Info) Description 04/08/2023 1:20 PM EST Office Visit [facility] [address] [facility] [address] [facility]od [facility] [address] [facility] [address] 06/02/2023 1:30 PM EST Office Visit [facility], [facility] [address] [facility] [place] [address] Bill Palencia PA-C [address] [place] [address] 07/26/2023 9:00 AM EDT Imaging Radiology [facility] [address] [facility] [place] [address] Scheduled Orders Name Type Priority Associated Diagnoses Orde r Schedule XR CHEST 2 VIEWS Medical Imaging Routine Bronchitis, complicated Expected: 03/03/2023, Expires: 04/03/2023 Health Maintenance Due Date Last Done Comments [...] Vaccine (3 - season) 2023 02/20/2021, 01/30/2021 Influenza Vaccine (FLU [...] this encounter Medical Devices Implanted Type Area Newspaper Inserter Device Identifier Shelf Expiration Date Model / Serial / Lot Mesh Flat Sheet 1x4 [id number] - [id number] Implanted:Qty: 1 on 11/12/2022 by Willie Musa MD at OR [facility] Right: Groin CR BARD : DAVOL 09/04/2025 [id number] / / [id number] documented as of this encounter Visit Diagnoses Diagnosis Bronchitis, complicated- Primary Bronchitis, not specified as acute or chronic documented in this encounter Advance Directives Latest [...] the patient have Health Care Power of French Lecturer? No Care Teams Quarantine Inspector Relationship Specialty Start Date End Date Pramod Damian MD [address] [place] [address] PCP - General 04/10/02 documented as of this encounter"
--- OUTSIDE RECORDS SUMMARY | 2023-08-22 12:06 | External Medical Summary | Summary of Care ---
Author Name Unknown Organization [facility] Address [address] [place] [address] Phone [phone] Care Team Providers Care Automotive Exhaust Emissions Technician Name Role Phone Pramod Damian MD Primary Care Provider +1- [phone] Reason for Visit * Reason Onset Date Comments Other Respiratory Infection 02/27/2023 Encounter Details Date Type Department Care Team Description 02/27/2023 Convenient Care Visit [facility] [address] [place] [address] Dimas Barney [facility]C [address] [facility] [id number] LRTI (lower respiratory tract infection)* Allergies Active [...] a day 1 Kit 0 11/11/2017 Active MBA and CompanyTOUCH DELICA LANCETS FINE MISC Use four times [...] mRNA, LNP-s, No Pre serve, 2-Dose Series ([employer]) 02/20/2021,01/30/2021 Pneumococcal Conjugate Vacc, 13 Valent (Prevnar) [...] (EGD), FLEXIBLE, TRANSORAL, DIAGNOSTIC performed by Miquel Mendoaz MD at ENDOSCOPY [facility] INFORMATION 1998 back surgery - "chipped bone away" INFORMATION 2009 Heart Cath INFORMATION Thyroidectomy. INSER ERICKA CAT,W/O PUMP;5YR/OLD Right 11/05/2022 INSERT TUNNELED CENTRAL VENOUS CATHETER AGE 5 OR OLDER performed by Bill Hansen DO at OR [facility] IR VENOUS ACCESS NON-MEDIPORT 09/03/2022 IR VENOUS ACCESS NON-MEDIPORT 10/22/2022 IR VENOUS ACCESS NON-MEDIPORT 12/24/2022 LAPAROSCOPY, W/ INSERT INTRAPERITONEAL CATH N/A 08/25/2022 LAPAROSCOPIC INSERTION INTRAPERITONEAL CANNULA OR CATHETER performed by Willie Musa MD at OR [facility] LUMBAR SPINE FUSION, POST INTERBODY 12/08/2012 Torreti PROSTATE CRYOABLATION 11/15/2008 CRYOSURGICAL ABLATION OF PROSTATE performed by MIKE CORBETT at OR [facility] REMOVAL OF THYMUS GLAND 05/10/2000 REPAIR INITIAL INGUINAL HERNIA REDUCIBLE AGE 5 OR MORE Right 11/12/2022 REPAIR INITIAL INGUINAL HERNIA REDUCIBLE AGE 5 OR MORE performed by Willie Musa MD at OR [facility] REVISION OF ULNAR NERVE AT [place] Social [...] Reported on 12/02/2022) Blood Glucose Monitoring Suppl (NemediaUCH VERIO) w/Device KIT Use up to 4 times a day 1 Kit 0 MBA and CompanyTOUCH DELICA LANCETS FINE MISC Use four times daily 100 Each 11 Amaya GamingTouch Verio In Vitro Strip (Glucose Blood) USE [...] depending on brand!!! Must be produced by [employer] Hctz [Hydrochlorothiazide] Hyponatremia Hydralazine Diarrhea, testicular pain [...] (5' 7") | Wt 86.6 kg (191 lb) | SpO2 97% | BMI 29.91 kg/m | [...] of care were discussed Dimas Barney PA-C [address] [address] documented in this encounter Nursing Notes * [...] Family Medicine Pramod Damian MD [address], [place] [id number] 06/02/2023 Office Visit Cardiology Bill Palencia PA-C [address] [place] [address] 07/26/2023 Imaging Radiology Health Maintenance Due Date [...] this encounter Medical Devices Implanted Type Area Semiconductor Processing Technician Device Identifier Shelf Expiration Date Model / Serial / Lot Mesh Flat Sheet 1x4 [id number] - [id number] Implanted:Qty: 1 on 11/12/2022 by Willie Musa MD at OR [facility] Right: Reginaldin FRIDA BARD : [id number] 09/04/2025 [id number] / / [id number] documented as of this encounter Visit Diagnoses [...] the patient have Health Care Power of Barrel Lapper? No Care Teams Automotive Exhaust Emissions Technician Relationship Specialty Start Date End Date Pramod Damian MD [address] [place] [address] PCP - General 04/10/02 documented as of this encounter
--- NOTE | 2023-08-22 12:24 | Emergency Department Note ---
Impression & Plan Baclofen overdose, Anticholinergic syndrome, Atrial flutter with rapid ventricular response, Elevated troponin ED Provider Note Name: BJORN ROSARIO Age: 83 Sex: Male Arrives Via: Ambulance Informant: Patient and EMS ED Provider: Serjio Wasserman MD Chief Complaint: Altered mental status Impression: As per impressions above Medical Decision Makin-year-old male with extensive past medical history including peritoneal dialysis arrives for evaluation of altered mental status. On arrival patient is tachycardic somewhat altered and agitated and encephalopathic. He is quite dehydrated and a bit tremulous. EKG is fortunately without prolonged QTc but does show a flutter versus A-fib RVR. Patient by his own accord took too many of his baclofen this morning. His symptoms are very much consistent with an anticholinergic effect. He was given a small dose of IV Ativan as well as general fluid bolus with vast improvement. He states he is feeling better. He believes he took 5 tablets of baclofen at once this morning though he admits he could have taken more. Denies any attempt to harm himself. Denies any other overdose medications. Labs are consistent with his chronic renal disease. I do not feel he needs transfer for tox evaluation. He will need hospitalization no and thus hospitalist consulted for further management. Patient has no fever is no abdominal pain and has no clear evidence of infection at this time. With the setting of procalcitonin within normal range no significantly elevated white blood cell count no fever would hold off on any septic workup. Troponin is significantly elevated though repeat is actually trending down a bit. I suspect this is a combination dehydration/anticholinergic plus a tachycardic response. Urinalysis has no bacteria seen. Salicylate/acetaminophen are negative. Of note post Ativan patient is interactive he has no headache he has no neurodeficits. I think it is reasonable to hold off on CT of the head at this time with low index of suspicion if any changes. At this point it is unclear intent though patient denies thoughts of harm to self or others. Triage/Nursing Notes reviewed by Me Differential:Infection, dehydration, metabolic abnormality, hypo/hyperglycemia, electrolyte disturbance, anemia, hypoxia, cardiac sources, intracerebral event, toxicologic, neurologic, as well as other pathologies. Vital Signs: reviewed and remarkable for tachycardia Interventions: Normal saline bolus 5 mL IV, Ativan 0.5 mg IV x 2 Labs:ED labs Reviewed by me and remarkable for creatinine elevated consistent with renal failure. Troponin elevated double baseline. Repeat trending down. Imagin view chest x-ray as per my interpretation. Congestive findings but no overt pulmonary edema and no lobar infiltrates appreciated. EKG:As per my interpretation. Indication overdose. A-fib/flutter 127 bpm with a QTc of 537. There is no ischemia. Left bundle branch block noted. Compared to EKG of November 02, 2022 QTc is similar. Heart rate has increased. Repeat EKG with improvement in heart rate and stable QTc. Cardiac/Tele Monitoring: Cardiac Monitoring: An Order was placed for continuous cardiac monitoring. The monitor shows atrial flutter at 90 beats per minute [facility] Plan: Disposition:Hospitalization. Condition: Fair History of Present Illness: 83-year-old gentleman arrives for evaluation of confusion. Patient was seen by PCP yesterday started him on baclofen and Oxy IR. Patient reportedly has been taking them throughout the night and took extra this morning. He at times admits that he took too many this morning. Per EMS he might of taken 5 this morning of his baclofen. Also took some Oxy at the same time. Family called EMS for confusion. Patient denies any symptoms. He denies any chest pain, shortness of breath or other concerning signs or symptoms. Denies any other drug or alcohol use. Past Medical History:See Below Home Medications:See Below Allergies:See Below Vitals:Blood Pressure: 120/60, Pulse 111, RR 20, T 36.4C, O2 95% on RA Physical Exam: GENERAL: Patient is somewhat confused almost encephalopathic but answering questions at times laughing and chronically unwell appearing and in no acute distress. Dry dehydrated cracked lips and tongue. RESPIRATORY: No dyspnea. Clear to auscultation and equal bilaterally. CARDIOVASCULAR: Tachycardic regular.No murmur appreciated. GASTROINTESTINAL: Abdomen soft, non-tender, no peritonitis. Dialysis line in left abdomen EXTREMITIES: Normal motion all extremities, no cyanosis, no edema. NEUROLOGIC: Awake periodically answering questions and then confused stating he is at home. Tremulous but no focal neurologic deficits appreciated SKIN: No rash, no jaundice, no diaphoresis. Poor turgor GCS: 15 ED Course: Times/Reassessments: Patient vastly improved after initial fluid bolus and Ativan. Sleeping soundly but easily awakens. He is in no distress and denies any complaints. After a few hours did become a bit more agitated and uncomfortable thus another small dose of Ativan given. Serjio Wasserman MD Past Med/Surg History Medical History Atrial fibrillation Chronic diastolic CHF (congestive heart failure) COPD (chronic obstructive pulmonary disease) DM type 2 (diabetes mellitus, type 2) ESRD (end stage renal disease) Foot drop, bilateral Gout Hypertension Hypothyroidism ANGY (iron deficiency anemia) LBBB (left bundle branch block) Pancreatic cyst Peritoneal dialysis catheter in situ Prostate ca Pulmonary hypertension Spinal stenosis Thyroid cancer Surgical History (Updated 09/08/22 @ 16:48 by Enoch Tinajero PA-C) History of fusion of lumbar spine L2-S1, instrumented S/P lumbar fusion Family History Other Diabetes Hypertension Social History Smoking Status: Former smoker Cigarettes Per Day: 10; Smoking End Date: 1969; Second Hand Exposure: No; Do You Dip or Chew Tobacco: No; Tobacco Cessation Education Requested by Patient: No Hx Alcohol Use: No Hx Substance Use: No Preferred Language: Croatian Communication Ability: Effective Diabetes Trainer Required: No Beliefs That Will Affect Care: None marital status: Current Living Situation: Spouse Feels Safe at Home: Yes Safety Concerns: Feels Safe At This Time Assistive Devices: Denture - Upper, Denture - Lower and Walker Allergies Allergies Allergy/AdvReac Type Severity Reaction Status Date / Time clonidine Allergy Unknown allergic Unverified 08/22/23 15:41 to all but 1 brand carvedilol Allergy Hives Verified 08/22/23 15:41 losartan Allergy Unknown Verified 08/22/23 15:41 ANJELICA Inhibitors AdvReac Intermediate INTOLERANCE Verified 08/22/23 15:41 PER MD ORDER allopurinol AdvReac Intermediate severe abd Verified 08/22/23 15:41 pain Beta-Blockers AdvReac Intermediate INTOLERANCE Verified 08/22/23 15:41 (Beta-Adrenergic Bloc PER DR ARELLANO doxazosin AdvReac Intermediate INTOLERANCE Verified 08/22/23 15:[address] ARELLANO [id number]-CrX Reductase AdvReac Intermediate INTOLERANCE Verified 08/22/23 15:41 Inhibitor PER [Xueheob-Zpr-Zzq Reductase ADAN Inhibitor] citalopram AdvReac Unknown Verified 08/22/23 15:41 hydralazine AdvReac diarrhea, Verified 08/22/23 15:41 testicular pain hydrochlorothiazide AdvReac hyponatremi Verified 08/22/23 15:41 a lisinopril AdvReac Cough Verified 08/22/23 15:41 simvastatin [From Zocor] AdvReac Muscle Pain Verified 08/22/23 15:41 sitagliptin [From Januvia] AdvReac restlessnes Verified 08/22/23 15:41 s Home Meds Home Medications Medication Instructions Recorded Confirmed allopurinol 100 mg tablet 100 mg PO QAM 02/25/18 08/22/23 levothyroxine 150 mcg tablet 150 mcg PO DAILYBB 08/12/20 08/22/23 docusate sodium 100 mg tablet 100 mg PO AMHS 08/29/22 08/22/23 torsemide 100 mg tablet 100 mg PO QAM 08/29/22 08/22/23 albuterol sulfate 90 mcg/actuation 2 puff inhalation Q4 PRN Wheezing 08/22/23 08/22/23 aerosol inhaler apixaban 2.5 mg tablet (Eliquis) 2.5 mg PO AMHS 08/22/23 08/22/23 baclofen 5 mg tablet 5 mg PO UD 08/22/23 08/22/23 buspirone 5 mg tablet 5 mg PO UD 08/22/23 08/22/23 glipizide 10 mg tablet 10 mg PO AMHS 08/22/23 08/22/23 hydrocodone 5 mg-acetaminophen 325 1 tab PO UD PRN Pain 08/22/23 08/22/23 mg tablet hydroxyzine HCl 25 mg tablet 25 mg PO UD 08/22/23 08/22/23 lactulose 10 gram/15 mL oral 15 ml PO BID PRN severe 08/22/23 08/22/23 solution constipation potassium chloride 10 mEq 20 meq PO BID 08/22/23 08/22/23 tablet,extended release(part/cryst) terazosin 1 mg capsule 1 mg PO HS 08/22/23 08/22/23 vitamin B complex-vitamin C-folic 1 tab PO DAILY 08/22/23 08/22/23 acid 0.8 mg tablet (Jessie-Joycelyn) Results & Data (ED) Vital Signs Vital Signs - 24 hr 08/22/23 12:06 08/22/23 12:08 08/22/23 12:13 Temperature 36.4 C L Temperature Source Oral Pulse Rate 105 H 111 H Pulse Rate [Apical] Respiratory Rate 20 Respiratory Effort / Characteristics Respiratory Depth Respiratory Pattern Blood Pressure [Left Arm] Blood Pressure Mean [Left Arm] Blood Pressure Position [Left Arm] Pulse Oximetry 95 95 Oxygen Delivery Method Room Air Room Air Sepsis Recent Fever Within 48 Hours No Sepsis New/Unexplained Change in Mental Status N/A Sepsis Action Taken by Nursing No Action Required 08/22/23 12:35 08/22/23 14:00 08/22/23 15:00 Temperature Temperature Source Pulse Rate Pulse Rate [Apical] 116 H 82 82 Respiratory Rate 18 18 18 Respiratory Effort / Characteristics Non-Labored Spontaneous Non-Labored Spontaneous Non-Labored Spontaneous Respiratory Depth Normal Normal Normal Respiratory Pattern Regular Regular Blood Pressure [Left Arm] 124/97 96/77 L 111/76 Blood Pressure Mean [Left Arm] 106 83 87 Blood Pressure Position [Left Arm] Lying Lying Lying Pulse Oximetry 93 94 94 Oxygen Delivery Method Room Air Room Air Room Air Sepsis Recent Fever Within 48 Hours Sepsis New/Unexplained Change in Mental Status Sepsis Action Taken by Nursing 08/22/23 16:09 Temperature Temperature Source Pulse Rate 90 Pulse Rate [Apical] Respiratory Rate Respiratory Effort / Characteristics Respiratory Depth Respiratory Pattern Blood Pressure [Left Arm] Blood Pressure Mean [Left Arm] Blood Pressure Position [Left Arm] Pulse Oximetry Oxygen Delivery Method Sepsis Recent Fever Within 48 Hours Sepsis New/Unexplained Change in Mental Status Sepsis Action Taken by Nursing Laboratory Data 08/22/23 12:30 08/22/23 12:30 Lab Results 08/22/23 08/22/23 08/22/23 Range/Units 12:30 14:15 15:45 WBC 9.78 (4.8-10.8) K/ul RBC 3.69 L (4.70-6.10) M/uL Hgb 11.6 L (14.0-18.0) g/dl Hct 34.1 L (42.0-52.0) % MCV 92.4 (80.0-100.0) fL MCH 31.4 (25.0-34.0) pg MCHC 34.0 (32.0-36.0) g/dL RDW Std Deviation 44.4 (36.4-46.3) fL RDW Coeff of Pooja 13.3 (11.5-14.5) % Plt Count 255 (130-400) K/uL MPV 9.7 (9.4-12.4) fL Immature Gran % (Auto) 0.5 % Neut % (Auto) 89.3 % Lymph % (Auto) 4.3 % [place] % (Auto) 5.6 % Eos % (Auto) 0.1 % Baso % (Auto) 0.2 % Neut # (Auto) 8.73 H (1.40-6.50) K/uL Lymph # (Auto) 0.42 L (1.20-3.40) K/uL [place] # (Auto) 0.55 (0.11-0.59) K/uL Eos # (Auto) 0.01 (0.00-0.50) K/uL Baso # (Auto) 0.02 (0.00-0.20) K/uL Immature Gran # (Auto) 0.05 (0.01-0.20) K/uL Sodium 131 L (136-145) mmol/L Potassium 4.3 (3.5-5.1) mmol/L Chloride 91 L (98-107) mmol/L Carbon Dioxide 22 (21-32) mmol/L Anion Gap 18 H (3-11) BUN 68 H (6-23) mg/dl Creatinine 6.98 H* (0.6-1.4) mg/dl Est Cr Clr Drug Dosing 8.8 ml/min Est GFR ( Amer) 7.7 ml/min Est GFR (Non-Af Amer) 6.7 ml/min BUN/Creatinine Ratio 9.7 L (10-20) Glucose 161 H (70-99(Fasting)) mg/dl Calcium 9.3 (8.6-10.3) mg/dl Magnesium 2.1 (1.7-2.4) mg/dl Total Bilirubin 0.5 (0.2-1.0) mg/dl Direct Bilirubin 0.1 (0-0.2) mg/dl AST 48 H (13-39) U/L ALT 42 (7-52) U/L Alkaline Phosphatase 92 (34-104) U/L Troponin I High Sens 125.8 H* 112.2 H* (0-20) pg/ml Total Protein 7.9 (6.0-8.3) gm/dl Albumin 4.1 (3.4-5.0) gm/dl Lipase 52 (11-82) U/L Procalcitonin 0.43 (0-0.5) ng/ml Urine Color Yellow Urine Appearance Clear (Clear) Urine pH 5.5 (4.5-7.5) Ur Specific [place] 1.011 (1.000-1.030) Urine Protein 2+ H (Negative) Urine Glucose (UA) Negative (Negative) Urine Ketones Negative (Negative) Urine Blood 2+ H (Negative) Urine Nitrite Negative (Negative) Urine Bilirubin Negative (Negative) Urine Urobilinogen Negative (Negative) Ur Leukocyte Esterase Negative (Negative) Urine WBC (Auto) 0-5 (0-5) /hpf Urine RBC (Auto) 0-2 (0-2) /hpf U Hyaline Cast (Auto) 3-5 H (0-2) /lpf U Epithel Cells (Auto) 0-2 (0-2) /hpf Urine Bacteria (Auto) None Seen (None Seen) Salicylates < 3.0 L (3.0-30) mg/dl Acetaminophen < 3 L (10-30) ug/ml Administered Medications Discontinued Medications Sodium Chloride (Nss) 500 mls @ 999 mls/hr IV .Q31M ONE Stop: 08/22/23 12:50 Last Infusion: 08/22/23 14:27 Dose: Infused Documented By: Admin: 08/22/23 12:29 Dose: 999 mls/hr Documented By: LACEY Lorazepam (Lorazepam 1 Mg/1 Ml Syr Ed Inj Use) 0.5 mg IV ONE STA Stop: 08/22/23 12:21 Last Admin: 08/22/23 12:28 Dose: 0.5 mg Documented By: LACEY Lorazepam (Lorazepam 1 Mg/1 Ml Syr Ed Inj Use) Confirm Administered Dose 1 mg .ROUTE .STK-MED ONE Stop: 08/22/23 17:33 Last Admin: 08/22/23 17:36 Dose: Not Given Documented By: LACEY Lorazepam (Lorazepam 1 Mg/1 Ml Syr Ed Inj Use) 0.5 mg IV ONE STA Stop: 08/22/23 17:35 Last Admin: 08/22/23 17:36 Dose: 0.5 mg Documented By: CHEYK Imaging Data Radiologist's Impression: Chest X-Ray 08/22/23 12:21 XR chest 1V portable HISTORY: 83 years-old Male confusion acutely altered mental status COMPARISON: 11/02/2022 TECHNIQUE: AP view chest FINDINGS: Cardiac silhouette is enlarged. Stable right hemidiaphragmatic elevation. Pulmonary vascular congestion with bibasilar opacities. No pneumothorax. Degenerative changes of the shoulders and spine. IMPRESSION: 1. Cardiomegaly with pulmonary vascular congestion. 2. Chronic right hemidiaphragm elevation with bibasilar atelectasis. ACT 112: Negative or not required by law. The above report was generated using voice recognition software. It may contain grammatical, syntax or spelling errors. Electronically signed by: Medardo Medrano M.D. 08/22/2023 1:11 PM Discharge Plan Visit Data Chief Complaint: Lethargic Stated Complaint: LETHARGIC, TIRED ED Provider: Serjio Wasserman Discharge Problem: Baclofen overdose, Anticholinergic syndrome, Atrial flutter with rapid ventricular response, Elevated troponin Patient Disposition: Admitted As Inpatient Discharge Instructions Interventions: ED Discharge Assessment Last Done: 08/22/23 18:09 Discharge Problem: Baclofen overdose Qualifiers: Encounter type: initial encounter Injury intent: undetermined intent Qualified Code(s): T42.8X4A - Poisoning by antiparkinsonism drugs and other central muscle-tone depressants, undetermined, initial encounter Anticholinergic syndrome Qualifiers: Encounter type: initial encounter Injury intent: undetermined intent Qualified Code(s): T44.3X4A - Poisoning by other parasympatholytics [anticholinergics and antimuscarinics] and spasmolytics, undetermined, initial encounter
[2023-08-22] MEDS: LORazepam 1 MG/1 ML SYR ED Inj Use IV STA ×2 (12:28→17:36)
[2023-08-22] MEDS: SODIUM CHLORIDE 0.9% 500 ML IV ONE (12:29)
[2023-08-22 12:51] LABS: Basophils # (auto) 0.02 K/uL (0.00-0.20); Basophils % (auto) 0.2 %; Eosinophils # (auto) 0.01 K/uL (0.00-0.50); Eosinophils % (auto) 0.1 %; Hematocrit (blood only) 34.1 % (42.0-52.0); Hemoglobin 11.6 g/dl (14.0-18.0); Immature Granulocytes # (auto) 0.05 K/uL (0.01-0.20); Immature Granulocytes % (auto) 0.5 %; Lymphocytes # (auto) 0.42 K/uL (1.20-3.40); Lymphocytes % (auto) 4.3 %; Mean Corpuscular Hemoglobin 31.4 pg (25.0-34.0); Mean Corpuscular Volume 92.4 fL (80.0-100.0); Mean Platelet Volume 9.7 fL (9.4-12.4); Monocytes # (auto) 0.55 K/uL (0.11-0.59); Monocytes % (auto) 5.6 %; Neutrophils # (auto) 8.73 K/uL (1.40-6.50); Neutrophils % (auto) 89.3 %; Platelet Count 255 K/uL (130-400); RDW Coefficient of Variation 13.3 % (11.5-14.5); RDW Standard Deviation 44.4 fL (36.4-46.3); Red Blood Count 3.69 M/uL (4.70-6.10); White Blood Count 9.78 K/ul (4.8-10.8)
--- NOTE | 2023-08-22 13:12 | XRay Report ---
XR chest 1V portable HISTORY: 83 years-old Male confusion acutely altered mental status COMPARISON: 11/02/2022 TECHNIQUE: AP view chest FINDINGS: Cardiac silhouette is enlarged. Stable right hemidiaphragmatic elevation. Pulmonary vascular congesti on with bibasilar opacities. No pneumothorax. Degenerative changes of the shoulders and spine. IMPRESSION: 1. Cardiomegaly with pulmonary vascular congestion. 2. Chronic right hemidiaphragm elevation with bibasilar atelectasis. ACT 112: Negative or not required by law. The above report was generated using voice recognition software. It may contain grammatical, syntax o r spelling errors. Electronically signed by: Medardo Medrano M.D. 08/22/2023 1:11 PM
[2023-08-22 13:28] LABS: Albumin Level 4.1 gm/dl (3.4-5.0); BUN Creatinine Ratio 9.7 (10-20); Bilirubin Direct 0.1 mg/dl (0-0.2); Bilirubin,Total 0.5 mg/dl (0.2-1.0); Calcium 9.3 mg/dl (8.6-10.3); Creatinine Clr Calc Pharmacy 8.8 ml/min; Est GFR (African American) 7.7 ml/min; Est GFR (Non-African American) 6.7 ml/min; Magnesium 2.1 mg/dl (1.7-2.4); Potassium 4.3 mmol/L (3.5-5.1); Total Protein 7.9 gm/dl (6.0-8.3); Troponin I High Sensitivity 125.8 pg/ml (0-20)
--- NOTE | 2023-08-22 14:40 | History & Physical Report ---
Date of Service August 22, 2023 Assessment & Plan (1) Altered mental status: Plan: - likely secondary to hydrocodone and baclofen in the setting of ESRD - in the ED somewhat agitated and tremulous and received IV ativan -> now pt quite drowsy - received IVF NS in the ED - blood cultx pending - UA ordered - CXR w/ pulm. vasc. congestion. pt is breathing on RA saturating 94% - cont. to closely monitor on Tele. nephrology contacted to assist w/ PD needs Afib w/ RVR - initially in ED w/ Afib w/ RVR, now HR controlled - cont. home metoprolol if able to take PO, may need IV in the meantime - cont. eliquis (if able to take PO) ESRD on PD - Nephrology consulted Hypothyroidism - cont. levothyroxine - check TSH Gout - cont. allopurinol History of Present Illness Chief Complaint: AMS Primary Care Provider: Pramod Damian MD Pt is an 83 M w/ ESRD on dialysis, Afib, DM type 2, COPD, CHF, HTN, anxiety, hypothyroidism, lumbar stenosis/chronic back pain who comes via EMS with altered mental status, tremors. Pt was prescribed baclofen in addition to his hydrocodone for "bad muscle spasms". He reported to ED physician that he took 5 pills of baclofen this AM. He was somewhat agitated and tremorous, also in Afin w/ RVR in the ED and received IV Ativan by ED physician. Currently patient is lying in bed, very drowsy, however appears comfortable. He is answering simple questions, and denies currently any pain, however history is unreliable as patient is not fully woken up. Patient was seen with his RN at the bedside. Pt denies any pain, denies any chest pain, shortness of breath, abd. pain. Discussed with over the phone, and she confirms the history of backache and muscle spasms. Patient has been taking hydrocodone, however felt that it was not helping enough, and so he was prescribed baclofen. Patient's says that he took too many, could not sleep all night, that he fell asleep and she was unable to wake him up so she called EMS. Prior to this she states that patient was feeling otherwise well meaning without any fevers chills chest pain palpitations shortness of breath or any other symptoms of any illness. Allergies Allergy/AdvReac Type Severity Reaction Status Date / Time clonidine Allergy Unknown allergic Unverified 08/22/23 15:41 to all but 1 brand carvedilol Allergy Hives Verified 08/22/23 15:41 losartan Allergy Unknown Verified 08/22/23 15:41 ANJELICA Inhibitors AdvReac Intermediate INTOLERANCE Verified 08/22/23 15:41 PER MD ORDER allopurinol AdvReac Intermediate severe abd Verified 08/22/23 15:41 pain Beta-Blockers AdvReac Intermediate INTOLERANCE Verified 08/22/23 15:41 (Beta-Adrenergic Bloc PER DR ARELLANO doxazosin AdvReac Intermediate INTOLERANCE Verified 08/22/23 15:[address] ARELLANO Ztovdfh-LKV-DtJ Reductase AdvReac Intermediate INTOLERANCE Verified 08/22/23 15:41 Inhibitor PER [Dawysih-Lgu-Zkn Reductase ADAN Inhibitor] citalopram AdvReac Unknown Verified 08/22/23 15:41 hydralazine AdvReac diarrhea, Verified 08/22/23 15:41 testicular pain hydrochlorothiazide AdvReac hyponatremi Verified 08/22/23 15:41 a lisinopril AdvReac Cough Verified 08/22/23 15:41 simvastatin [From Zocor] AdvReac Muscle Pain Verified 08/22/23 15:41 sitagliptin [From Januvia] AdvReac restlessnes Verified 08/22/23 15:41 s Home Medications Medication Instructions Recorded Confirmed Type allopurinol 100 mg tablet 100 mg PO QAM 02/25/18 08/22/23 History levothyroxine 150 mcg tablet 150 mcg PO DAILYBB 08/12/20 08/22/23 History docusate sodium 100 mg tablet 100 mg PO AMHS 08/29/22 08/22/23 History torsemide 100 mg tablet 100 mg PO QAM 08/29/22 08/22/23 History albuterol sulfate 90 mcg/actuation 2 puff inhalation Q4 PRN Wheezing 08/22/23 08/22/23 History aerosol inhaler apixaban 2.5 mg tablet (Eliquis) 2.5 mg PO AMHS 08/22/23 08/22/23 History baclofen 5 mg tablet 5 mg PO UD 08/22/23 08/22/23 History buspirone 5 mg tablet 5 mg PO UD 08/22/23 08/22/23 History glipizide 10 mg tablet 10 mg PO AMHS 08/22/23 08/22/23 History hydrocodone 5 mg-acetaminophen 325 1 tab PO UD PRN Pain 08/22/23 08/22/23 History mg tablet hydroxyzine HCl 25 mg tablet 25 mg PO UD 08/22/23 08/22/23 History lactulose 10 gram/15 mL oral 15 ml PO BID PRN severe 08/22/23 08/22/23 History solution constipation potassium chloride 10 mEq 20 meq PO BID 08/22/23 08/22/23 History tablet,extended release(part/cryst) terazosin 1 mg capsule 1 mg PO HS 08/22/23 08/22/23 History vitamin B complex-vitamin C-folic 1 tab PO DAILY 08/22/23 08/22/23 History acid 0.8 mg tablet (Jessie-Joycelyn) Past Med/Surg History Medical History Atrial fibrillation Chronic diastolic CHF (congestive heart failure) COPD (chronic obstructive pulmonary disease) DM type 2 (diabetes mellitus, type 2) ESRD (end stage renal disease) Foot drop, bilateral Gout Hypertension Hypothyroidism ANGY (iron deficiency anemia) LBBB (left bundle branch block) Pancreatic cyst Peritoneal dialysis catheter in situ Prostate ca Pulmonary hypertension Spinal stenosis Thyroid cancer Surgical History (Updated 09/08/22 @ 16:48 by Enoch Tinajero PA-C) History of fusion of lumbar spine L2-S1, instrumented S/P lumbar fusion Family History Other Diabetes Hypertension Social History Smoking Status: Never smoker Cigarettes Per Day: 10; Second Hand Exposure: No; Do You Dip or Chew Tobacco: Yes; Hx Alcohol Use: No Hx Substance Use: No Preferred Language: Kenyan 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 Beliefs That Will Affect Care: None marital status: Current Living Situation: Spouse Feels Safe at Home: Yes Assistive Devices: Cane and Walker Review of Systems Review of Systems: All systems reviewed & are unremarkable except as noted in Subjective Physical Exam Constitutional: WD/WN, vitals as above (pt very drowsy) Eyes: PERRL, conjunctivae normal, anicteric sclerae ENMT: external ear and nose normal, oropharynx normal Neck: normal visual inspection Respiratory: normal respiratory effort, lungs clear to auscultation Cardiovascular: irregular Chest (Breasts): Chest: normal inspection of chest Gastrointestinal (Abdomen): normal bowel sounds, soft, nontender, no hepatosplenomegaly Musculoskeletal: no cyanosis or clubbing, extremities motor strength 5/5 Skin: no rashes, warm and dry Neurologic: drowsy but arousable, speech slow but fluent, moves extremities Lymphatic: minimal LE edema Results & Data Results & Data Vital Signs (Past 12 Hours) Vital Signs Temp Pulse Pulse Resp BP Pulse Ox O2 Del Method 08/22/23 14:00 82 18 96/77 L 94 Room Air 08/22/23 12:35 116 H 18 124/97 93 Room Air 08/22/23 12:13 95 Room Air 08/22/23 12:08 111 H 08/22/23 12:06 36.4 C L 105 H 20 95 Room Air Laboratory Results 08/22/23 08/22/23 Range/Units 14:15 12:30 WBC 9.78 (4.8-10.8) K/ul RBC 3.69 L (4.70-6.10) M/uL Hgb 11.6 L (14.0-18.0) g/dl Hct 34.1 L (42.0-52.0) % MCV 92.4 (80.0-100.0) fL MCH 31.4 (25.0-34.0) pg MCHC 34.0 (32.0-36.0) g/dL RDW Std Deviation 44.4 (36.4-46.3) fL RDW Coeff of Pooja 13.3 (11.5-14.5) % Plt Count 255 (130-400) K/uL MPV 9.7 (9.4-12.4) fL Immature Gran % (Auto) 0.5 % Neut % (Auto) 89.3 % Lymph % (Auto) 4.3 % Elliott % (Auto) 5.6 % Eos % (Auto) 0.1 % Baso % (Auto) 0.2 % Neut # (Auto) 8.73 H (1.40-6.50) K/uL Lymph # (Auto) 0.42 L (1.20-3.40) K/uL Elliott # (Auto) 0.55 (0.11-0.59) K/uL Eos # (Auto) 0.01 (0.00-0.50) K/uL Baso # (Auto) 0.02 (0.00-0.20) K/uL Immature Gran # (Auto) 0.05 (0.01-0.20) K/uL Sodium 131 L (136-145) mmol/L Potassium 4.3 (3.5-5.1) mmol/L Chloride 91 L (98-107) mmol/L Carbon Dioxide 22 (21-32) mmol/L Anion Gap 18 H (3-11) BUN 68 H (6-23) mg/dl Creatinine 6.98 H* (0.6-1.4) mg/dl Est Cr Clr Drug Dosing 8.8 ml/min Est GFR ( Amer) 7.7 ml/min Est GFR (Non-Af Amer) 6.7 ml/min BUN/Creatinine Ratio 9.7 L (10-20) Glucose 161 H (70-99(Fasting)) mg/dl Calcium 9.3 (8.6-10.3) mg/dl Magnesium 2.1 (1.7-2.4) mg/dl Total Bilirubin 0.5 (0.2-1.0) mg/dl Direct Bilirubin 0.1 (0-0.2) mg/dl AST 48 H (13-39) U/L ALT 42 (7-52) U/L Alkaline Phosphatase 92 (34-104) U/L Troponin I High Sens Pending 125.8 H* (0-20) pg/ml Total Protein 7.9 (6.0-8.3) gm/dl Albumin 4.1 (3.4-5.0) gm/dl Lipase 52 (11-82) U/L Procalcitonin 0.43 (0-0.5) ng/ml Diagnostic Findings CXR FINDINGS: Cardiac silhouette is enlarged. Stable right hemidiaphragmatic elevation. Pulmonary vascular congestion with bibasilar opacities. No pneumothorax. Degenerative changes of the shoulders and spine. IMPRESSION: 1. Cardiomegaly with pulmonary vascular congestion. 2. Chronic right hemidiaphragm elevation with bibasilar atelectasis.
--- NOTE | 2023-08-22 15:23 | Electrocardiogram Report ---
Test Reason : Blood Pressure : / mmHG Vent. Rate : 127 BPM Atrial Rate : 000 BPM P-R Int : 000 ms QRS Dur : 134 ms QT Int : 370 ms P-R-T Axes : 000 013 134 degrees QTc Int : 537 ms Atrial fibrillation with rapid ventricular response with premature ventricular or aberrantly conducte d complexes Left bundle branch block Abnormal ECG When compared with ECG of 02-NOV-2022 13:07, QRS axis Shifted right Nonspecific T wave abnormality now evident in Inferior leads Confirmed by Honorio Benedict ([id number]) on 08/22/2023 3:23:15 PM Referred By: Pramod Damian Confirmed By:Aristeo Benedict
--- NOTE | 2023-08-22 15:25 | Electrocardiogram Report ---
Test Reason : Blood Pressure : / mmHG Vent. Rate : 090 BPM Atrial Rate : 381 BPM P-R Int : 000 ms QRS Dur : 134 ms QT Int : 418 ms P-R-T Axes : 000 -01 140 degrees QTc Int : 511 ms Atrial fibrillation Left bundle branch block Abnormal ECG Confirmed by Honorio Benedict ([id number]) on 08/22/2023 3:24:59 PM Referred By: Pramod Damian Confirmed By:Aristeo Benedict
[2023-08-22 16:19] LABS: Acetaminophen < 3 ug/ml (10-30); Salicylate < 3.0 mg/dl (3.0-30)
[2023-08-22 17:07] LABS: Appearance Urine Clear (Clear); Bacteria Urine Automated None Seen (None Seen); Bilirubin Urine Negative (Negative); Blood Urine 2+ (Negative); Color Urine Yellow; Epithelial Cell Urine Auto 0-2 /hpf (0-2); Glucose Urine UA Negative (Negative); Ketones Urine Negative (Negative); Leukocyte Esterase Urine Negative (Negative); Nitrite Urine Negative (Negative); Protein Urine 2+ (Negative); RBC Urine Automated 0-2 /hpf (0-2); Specific Gravity Urine 1.011 (1.000-1.030); Urobilinogen Urine Negative (Negative); WBC Urine Automated 0-5 /hpf (0-5); pH Urine 5.5 (4.5-7.5)
[2023-08-22] MEDS: LORazepam 1 MG/1 ML SYR ED Inj Use ONE (17:36)
[2023-08-22] MEDS ORDERED: ALBUTEROL HFA 8 GM INHALER INH PRN (18:17)
[2023-08-22] MEDS: APIXABAN 2.5 MG TAB PO SCH (21:03)
[2023-08-22] MEDS: LORazepam 0.5 MG in SYRINGE 0.25 ML IV STA (21:32)
[2023-08-22] MEDS: METOPROLOL TARTRATE 1 MG/ML VIAL IV ONE (21:45)
[2023-08-22 21:58] LABS: iSTAT Arterial Blood Gas HCO3 19 meg/L (19-24); iSTAT Arterial Blood Gas pCO2 42 mmHg (35-46); iSTAT Arterial Blood Gas pH 7.25 (7.35-7.45); iSTAT Arterial Blood Gas pO2 100 mmHg (80-95); iSTAT Carbon Dioxide 20 mmol/L (24-31); iSTAT Hematocrit 33 % (42-52); iSTAT Hemoglobin 11.2 g/dl (14.0-18.0); iSTAT Potassium 3.8 mmol/L (3.3-5.0); iSTAT Sodium 130 mmol/L (135-144)
[2023-08-22] MEDS: METOPROLOL TARTRATE 1 MG/ML VIAL IV STA (22:15)
[2023-08-23] MEDS: LORazepam 0.5 MG in SYRINGE 0.25 ML IV PRN (03:32)
[2023-08-23] MEDS ORDERED: LORazepam 0.5 MG in SYRINGE 0.25 ML IV PRN (04:13)
[2023-08-23] MEDS: LORazepam 0.25 MG in SYRINGE 0.125 ML IV STA (04:35)
[2023-08-23] MEDS: LEVOTHYROXINE SODIUM 150 MCG TABLET PO SCH (06:02)
[2023-08-23 06:44] LABS: Hematocrit (blood only) 29.4 % (42.0-52.0); Hemoglobin 9.7 g/dl (14.0-18.0); Mean Corpuscular Hemoglobin 31.1 pg (25.0-34.0); Mean Corpuscular Volume 94.2 fL (80.0-100.0); Mean Platelet Volume 9.7 fL (9.4-12.4); Platelet Count 202 K/uL (130-400); RDW Coefficient of Variation 13.7 % (11.5-14.5); RDW Standard Deviation 46.1 fL (36.4-46.3); Red Blood Count 3.12 M/uL (4.70-6.10)
[2023-08-23 06:45] LABS: BUN Creatinine Ratio 9.6 (10-20); Calcium 8.7 mg/dl (8.6-10.3); Creatinine Clr Calc Pharmacy 8.6 ml/min; Est GFR (African American) 7.7 ml/min; Est GFR (Non-African American) 6.6 ml/min; Phosphorus 8.2 mg/dl (2.5-4.9); Potassium 4.4 mmol/L (3.5-5.1)
[2023-08-23 07:04] LABS: Thyroid Stimulating Hormone 3.814 uIu/ml (0.300-4.500)
[2023-08-23] MEDS: OLANZapine 10 MG/2.1 ML SDV IM STA (07:11)
--- NOTE | 2023-08-23 07:13 | Hospitalist Progress Note ---
Date of Service August 23, 2023 Assessment & Plan (1) Altered mental status: Plan: Mr. 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 At baseline, patient is independent, use walker and without deficits of mental status is baseline. Patient remains acutely confused and agitated. Patient with history of "muscle spasms" and previously on flexeril. Daughter states that he also used heat and massage to help. Plan for delirium precautions, encourage Eliquis dosing, rate control with IV until able to take po, and attempt pain management without compromising mental status. #Acute metabolic encephalopathy, - likely secondary to hydrocodone and baclofen in the setting of ESRD -10mg baclofen 5 doses in 12 hours - On gabapentin at home 100mg BID, hold - in the ED somewhat agitated and tremulous and received IV ativan -> now pt quite drowsy -Received ativan IV multiple times, now ordered IM 2.5mg zyprexa 2/ ongoing agitation Infectious work up: UA negative, blood cultures NGTD Delirium precuations - cont. to closely monitor on Tele. nephrology contacted to assist w/ PD needs #ESRD on PD Nephrology on consult -PD started today IV lasix 100mg now, plan for daily until able to take po #Acute pain, reportedly muscle spasms #History Nausea with RUQ noted at OP visit on 08/09 with pending RUQ US ordered; similar concerns in 2022 Prior US with sludge and cholelithiasis, pancreas with IPOMN 2022 Prescribed hydroxyzine at that time Was taking Flexeril with relief previously -IV tylenol and heat compress on right back #Persistent Atrial fibrillation with RVR recieved 1 dose IV metoprolol -Start IV 2.5 q 6 h metoprolol Resume PO when able, metoprolol 12.5mg daily Continue Eliquis No acute symptoms #Elevated Troponin iso ESRD and A fib RVR, no chest pain or concern for active ACS Monitor on Tele Chronic baseline elevation Peak 120, downtrending with improvement of rates #Chronic diastolic CHF (congestive heart failure) #Chronic LBBB Appears euvolemic, continue torsemide when able to take PO #COPD albuterol prn #DM type 2 (diabetes mellitus, type 2) with neuropathy Hgb A1c 7.4 08/2022, repeat A1C Hold oral agents and utilize NovoLog per protocol while hospitalized Hold gabapentin as above #Chronic back pain, lumbar disc herniation with radiculopathy Flexeril 5mg TID ordered in OP records previously Consider pain mgmt consult On chronic opidoids, will order IV dilaudid until po at 0.25 to help stave off withdrawal, blunt pain #Chronic Hyponatremia Na 134, chronic, at baseline Volume mgmt via PD #Chronic ANGY (iron deficiency anemia) Baseline ~9-10 Stable #Gout Allopurinol 100mg daily #Hypothyroidism Continue levothyroxine TSH 08/22: #Depression #Severe anxiety 5mg BID Buspar, Hydroxyzine at home #BPH Home terazosin, resume when able DVT Px: Eliquis Code status: DNI/DNR Admission and Anticipated Discharge Date Admission Date: August 22, 2023 Subjective acutely agitated overnight with mild response to ativan Evaluated this am, calm after zyprexa, restraints in place Evaluated shortly thereafter--moving in bed restless, reports pain but unable to express what pain he is experiencing Physical Exam Constitutional: restless, agitated Respiratory: wheezing, diminished 2/2 effort Cardiovascular: irregularly irregular Gastrointestinal (Abdomen): soft, PD cath in place, no sites of surround infection/issues Results & Data Results & Data Vital Signs (Past 12 Hours) Vital Signs Temp Pulse Pulse Resp BP BP Pulse Ox 08/23/23 02:50 36.9 C 89 18 100/63 99 08/23/23 01:56 93 H 08/22/23 22:49 36.8 C 97 H 18 99/60 L 95 08/22/23 22:16 94 H 08/22/23 22:08 102 H 101/66 91 08/22/23 22:01 106 H 08/22/23 21:45 130 H 129/84 08/22/23 21:00 08/22/23 19:40 36.8 C 103 H 18 121/74 95 08/22/23 19:18 08/22/23 19:00 127 H O2 Del Method O2 Flow Rate 08/23/23 02:50 Nasal Cannula 2 08/23/23 01:56 08/22/23 22:49 Nasal Cannula 3 08/22/23 22:16 08/22/23 22:08 Nasal Cannula 3 08/22/23 22:01 08/22/23 21:45 08/22/23 21:00 Room Air 08/22/23 19:40 Room Air 08/22/23 19:18 Room Air 08/22/23 19:00 Laboratory Results Short CBC 08/23/23 Range/Units 05:45 WBC 8.00 (4.8-10.8) K/ul Hgb 9.7 L (14.0-18.0) g/dl Hct 29.4 L (42.0-52.0) % Plt Count 202 (130-400) K/uL BMP 08/22/23 08/23/23 12:30 05:45 Sodium 131 L 134 L Potassium 4.3 4.4 Chloride 91 L 95 L Carbon Dioxide 22 23 BUN 68 H 67 H Creatinine 6.98 H* 6.99 H* Glucose 161 H 156 H Calcium 9.3 8.7 Liver Function 08/22/23 Range/Units 12:30 Total Bilirubin 0.5 (0.2-1.0) mg/dl Direct Bilirubin 0.1 (0-0.2) mg/dl AST 48 H (13-39) U/L ALT 42 (7-52) U/L Alkaline Phosphatase 92 (34-104) U/L Albumin 4.1 (3.4-5.0) gm/dl Urine 08/22/23 Range/Units 15:45 Urine Color Yellow Urine Appearance Clear (Clear) Urine pH 5.5 (4.5-7.5) Ur Specific Spelter 1.011 (1.000-1.030) Urine Protein 2+ H (Negative) Urine Glucose (UA) Negative (Negative) Medications Administered Home Medications Medication Instructions Recorded Confirmed Last Taken allopurinol 100 mg tablet 100 mg PO QAM 02/25/18 08/22/23 Unknown levothyroxine 150 mcg tablet 150 mcg PO DAILYBB 08/12/20 08/22/23 Unknown docusate sodium 100 mg tablet 100 mg PO AMHS 08/29/22 08/22/23 Unknown torsemide 100 mg tablet 100 mg PO QAM 08/29/22 08/22/23 Unknown albuterol sulfate 90 mcg/actuation 2 puff inhalation Q4 PRN Wheezing 08/22/23 08/22/23 Unknown aerosol inhaler apixaban 2.5 mg tablet (Eliquis) 2.5 mg PO AMHS 08/22/23 08/22/23 Unknown baclofen 5 mg tablet 5 mg PO UD 08/22/23 08/22/23 Unknown buspirone 5 mg tablet 5 mg PO UD 08/22/23 08/22/23 Unknown glipizide 10 mg tablet 10 mg PO AMHS 08/22/23 08/22/23 Unknown hydrocodone 5 mg-acetaminophen 325 1 tab PO UD PRN Pain 08/22/23 08/22/23 Unknown mg tablet hydroxyzine HCl 25 mg tablet 25 mg PO UD 08/22/23 08/22/23 Unknown lactulose 10 gram/15 mL oral 15 ml PO BID PRN severe 08/22/23 08/22/23 Unknown solution constipation potassium chloride 10 mEq 20 meq PO BID 08/22/23 08/22/23 Unknown tablet,extended release(part/cryst) terazosin 1 mg capsule 1 mg PO HS 08/22/23 08/22/23 Unknown vitamin B complex-vitamin C-folic 1 tab PO DAILY 08/22/23 08/22/23 Unknown acid 0.8 mg tablet (Jessie-Joycelyn) Active Medications Generic Name Dose Route Start Last Admin Trade Name Kathy PRN Reason Stop Dose Admin Apixaban 2.5 mg 08/22/23 21:00 08/23/23 10:12 Apixaban 2.5 Mg Tab PO 09/21/23 20:59 Not Given BID LILI Furosemide 100 mg 08/23/23 12:45 08/23/23 12:59 Furosemide 40 Mg/4 Ml Vial IV 09/22/23 12:44 100 mg DAILY LILI Administration Lorazepam 0.5 mg/ Syringe 0.5 mls @ 2 mls/min 08/22/23 21:35 08/23/23 03:32 IV 09/21/23 21:34 2 mls/min Q4H PRN Administration Anxiety/Agitation Levothyroxine Sodium 150 mcg 08/23/23 06:30 08/23/23 06:02 Levothyroxine Sodium 150 Mcg Tablet PO 09/22/23 06:29 150 mcg DAILYBB LILI Administration
--- NOTE | 2023-08-23 07:55 | Communication Note ---
Date of Service: August 23, 2023 Last early in the night patinet was very agitated. thrashing, spiting and was having labored breathing and tachycardia. Placed of soft upper extremity rest raints. Gave iv ativan 0.5mg which significantly calmed the patient. HR was in 130s SBP in 120's. Gave iv Lopressor 2.5mg. ABG was done which showed ph 7.25, pco2 42, hco3 19 po2 100. Called nephro and recommended to transfer to icu for close monitor in case patient requires intubation and plan for PD in am.. Discussed with ICU. Critical care saw the patient and at that time with one dose of iv ativan 0.5mg given earlier patient was resting comfortably and recommended to observe in tele for now and to notify if patient deteriorates.Received another dose of iv Ativan later in the night.
[2023-08-23 08:14] LABS: Estimated Average Glucose 220 mg/dl; Hemoglobin A1C 9.3 % (4.5-5.6)
[2023-08-23] MEDS ORDERED: allopurinoL 100 MG TAB PO SCH (09:00)
[2023-08-23] MEDS: METOPROLOL TARTRATE 1 MG/ML VIAL IV STA (09:08)
--- NOTE | 2023-08-23 09:41 | Nephrology Consultation ---
Date of Consultation August 23, 2023 Assessment & Plan (1) ESRD (end stage renal disease): Fortunately no e/o fluid overload or major electrolyte problem. ABG showing a pH of 7.25 is totally acceptable in ESRD. That although abnormal is totally expected. Now with his extreme agitation it is hard to do PD. Currently he is unresponsive so will have to get a consult from his . Will do either Manual or cycler based on nursing Scheduling--it is very busy today. (2) Altered mental status: he had too many Baclofen. this muscle relaxant is contraindicated in Dialysis patient and should not be used ever. hemodialysis is very good in clearing it but not as much data with PD. Currently patient was extremely agitated and had to be given meds to calm him down. so was not really showing signs or symptoms of Baclofen overdose this morning which is mainly " unresponsive without meds". History of Present Illness Reason for Consultation: ESRD on PD Attending Physician: Yina Aguilar MD History of Present Illness 83 M w/ ESRD on peritoneal dialysis, extremely severe issue with Anxiety/Agitation when he has Pain, Afib, DM type 2, COPD, CHF, HTN, anxiety, hypothyroidism, lumbar stenosis/chronic back pain who comes via EMS with altered mental status, tremors. Pt was prescribed baclofen in addition to his hydrocodone for "Acute on chronic back pain". He reported to ED physician that he took 5 pills of baclofen this AM. He was agitated and tremolos, also in Afin w/ RVR in the ED and received IV Ativan by ED physician. Patient's says that he took too many baclofen and she was unable to wake him up so she called EMS. Prior to this she states that patient was feeling otherwise well meaning without any fevers chills chest pain palpitations shortness of breath or any other symptoms of any illness. early this Am he got more agitated and then Got Zyprexa and Ativan and now he is calm and sedated and normal vital signs. ROS---Unable to obtain. Patient is Sedated/Unresponsive Physical Exam Constitutional: Unresponsive after meds given Eyes: PERRL, conjunctivae normal, anicteric sclerae ENMT: external ear and nose normal, oropharynx normal Neck: normal visual inspection Respiratory: normal respiratory effort, lungs clear to auscultation Cardiovascular: irregular. Soft systolic Murmur. No edema Chest (Breasts): Chest: normal inspection of chest Gastrointestinal (Abdomen): normal bowel sounds, soft, nontender, PD site is normal. Musculoskeletal: Skin: no rashes, warm and dry Neurologic: drowsy but arousable, speech slow but fluent, moves extremities Lymphatic: No LE edema Allergies Allergy/AdvReac Type Severity Reaction Status Date / Time clonidine Allergy Unknown allergic Unverified 08/22/23 15:41 to all but 1 brand carvedilol Allergy Hives Verified 08/22/23 15:41 losartan Allergy Unknown Verified 08/22/23 15:41 ANJELICA Inhibitors AdvReac Intermediate INTOLERANCE Verified 08/22/23 15:41 PER MD ORDER allopurinol AdvReac Intermediate severe abd Verified 08/22/23 15:41 pain Beta-Blockers AdvReac Intermediate INTOLERANCE Verified 08/22/23 15:41 (Beta-Adrenergic Bloc PER DR ARELLANO doxazosin AdvReac Intermediate INTOLERANCE Verified 08/22/23 15:[address] ARELLANO Vggmonf-ODL-TzD Reductase AdvReac Intermediate INTOLERANCE Verified 08/22/23 15:[address] [Ozjfmyx-Tdm-Nsa Reductase ADAN Inhibitor] citalopram AdvReac Unknown Verified 08/22/23 15:41 hydralazine AdvReac diarrhea, Verified 08/22/23 15:41 testicular pain hydrochlorothiazide AdvReac hyponatremi Verified 08/22/23 15:41 a lisinopril AdvReac Cough Verified 08/22/23 15:41 simvastatin [From Zocor] AdvReac Muscle Pain Verified 08/22/23 15:41 sitagliptin [From Januvia] AdvReac restlessnes Verified 08/22/23 15:41 s Home Medications Medication Instructions Recorded Confirmed Type allopurinol 100 mg tablet 100 mg PO QAM 02/25/18 08/22/23 History levothyroxine 150 mcg tablet 150 mcg PO DAILYBB 08/12/20 08/22/23 History docusate sodium 100 mg tablet 100 mg PO AMHS 08/29/22 08/22/23 History torsemide 100 mg tablet 100 mg PO QAM 08/29/22 08/22/23 History albuterol sulfate 90 mcg/actuation 2 puff inhalation Q4 PRN Wheezing 08/22/23 08/22/23 History aerosol inhaler apixaban 2.5 mg tablet (Eliquis) 2.5 mg PO AMHS 08/22/23 08/22/23 History baclofen 5 mg tablet 5 mg PO UD 08/22/23 08/22/23 History buspirone 5 mg tablet 5 mg PO UD 08/22/23 08/22/23 History glipizide 10 mg tablet 10 mg PO AMHS 08/22/23 08/22/23 History hydrocodone 5 mg-acetaminophen 325 1 tab PO UD PRN Pain 08/22/23 08/22/23 History mg tablet hydroxyzine HCl 25 mg tablet 25 mg PO UD 08/22/23 08/22/23 History lactulose 10 gram/15 mL oral 15 ml PO BID PRN severe 08/22/23 08/22/23 History solution constipation potassium chloride 10 mEq 20 meq PO BID 08/22/23 08/22/23 History tablet,extended release(part/cryst) terazosin 1 mg capsule 1 mg PO HS 08/22/23 08/22/23 History vitamin B complex-vitamin C-folic 1 tab PO DAILY 08/22/23 08/22/23 History acid 0.8 mg tablet (Jessie-Joycelyn) Patient History Medical History Foot drop, bilateral Pancreatic cyst Gout ANGY (iron deficiency anemia) Peritoneal dialysis catheter in situ ESRD (end stage renal disease) Pulmonary hypertension Chronic diastolic CHF (congestive heart failure) LBBB (left bundle branch block) Atrial fibrillation COPD (chronic obstructive pulmonary disease) Hypothyroidism DM type 2 (diabetes mellitus, type 2) Spinal stenosis Prostate ca Thyroid cancer Hypertension Surgical History History of fusion of lumbar spine L2-S1, instrumented S/P lumbar fusion Family History Other Diabetes Hypertension Social History Smoking Status: Former smoker Cigarettes Per Day: 10; Smoking End Date: 1969; Second Hand Exposure: No; Do You Dip or Chew Tobacco: No; Tobacco Cessation Education Requested by Patient: No Hx Alcohol Use: No Hx Substance Use: No Preferred Language: Tanzanian Communication Ability: Effective Security Developer Required: No Beliefs That Will Affect Care: None marital status: Current Living Situation: Spouse Feels Safe at Home: Yes Safety Concerns: Feels Safe At This Time Assistive Devices: Denture - Upper, Denture - Lower and Walker Results & Data Vital Signs (Past 12 Hours) Vital Signs Temp Pulse Pulse Resp BP BP Pulse Ox 08/23/23 09:08 94 H 123/72 08/23/23 07:47 08/23/23 07:40 36.8 C 101 H 22 123/72 96 08/23/23 02:50 36.9 C 89 18 100/63 99 08/23/23 01:56 93 H 08/22/23 22:49 36.8 C 97 H 18 99/60 L 95 08/22/23 22:16 94 H 08/22/23 22:08 102 H 101/66 91 08/22/23 22:01 106 H 08/22/23 21:45 130 H 129/84 O2 Del Method O2 Flow Rate 08/23/23 09:08 08/23/23 07:47 Nasal Cannula 2 08/23/23 07:40 Nasal Cannula 2 08/23/23 02:50 Nasal Cannula 2 08/23/23 01:56 08/22/23 22:49 Nasal Cannula 3 08/22/23 22:16 08/22/23 22:08 Nasal Cannula 3 08/22/23 22:01 08/22/23 21:45
[2023-08-23] MEDS: METOPROLOL TARTRATE 1 MG/ML VIAL IV SCH ×2 (12:25→17:20)
[2023-08-23] MEDS: ACETAMINOPHEN 1,000 MG/100 ML VIAL IV STA (12:56)
[2023-08-23] MEDS: FUROSEMIDE 40 MG/4 ML VIAL IV SCH (12:59)
[2023-08-23] MEDS: HYDROmorphone INJ 0.5 MG/0.5 ML SYR IV PRN (14:01)
[2023-08-24] MEDS: DEXTROSE 50% 50 ML SYRINGE IV STA (06:21)
[2023-08-24 06:32] LABS: BUN Creatinine Ratio 9.3 (10-20); Creatinine Clr Calc Pharmacy 8.9 ml/min; Est GFR (Non-African American) 6.9 ml/min; Hematocrit (blood only) 32.5 % (42.0-52.0); Hemoglobin 10.9 g/dl (14.0-18.0); Magnesium 2.1 mg/dl (1.7-2.4); Mean Corpuscular Hemoglobin 31.8 pg (25.0-34.0); Mean Corpuscular Hgb Conc 33.5 g/dL (32.0-36.0); Mean Corpuscular Volume 94.8 fL (80.0-100.0); Mean Platelet Volume 9.9 fL (9.4-12.4); Phosphorus 7.7 mg/dl (2.5-4.9); Platelet Count 228 K/uL (130-400); Potassium 3.9 mmol/L (3.5-5.1); RDW Coefficient of Variation 13.9 % (11.5-14.5); RDW Standard Deviation 46.9 fL (36.4-46.3); Red Blood Count 3.43 M/uL (4.70-6.10); White Blood Count 9.68 K/ul (4.8-10.8)
--- NOTE | 2023-08-24 07:00 | Hospitalist Progress Note ---
Date of Service August 24, 2023 Assessment & Plan (1) Altered mental status: Plan: Mr. 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 At baseline, patient is independent, use walker and without deficits of mental status is baseline. Patient remains acutely confused and agitated. Patient with history of "muscle spasms" and previously on flexeril. Daughter states that he also used heat and massage to help. Plan for delirium precautions, encourage Eliquis dosing, rate control with IV until able to take po, and attempt pain management without compromising mental status. Patient with improvement in mentation--but with strange movements, similar to dyskinesia. Question of sequelae of baclofen toxicity, or other process. Unable to hold still for MRI, will order EEG and Neurology consult. Anticipate improvement with continued PD. #Acute metabolic encephalopathy, - likely secondary to hydrocodone and baclofen in the setting of ESRD -10mg baclofen 5 doses in 12 hours - On gabapentin at home 100mg BID, hold - in the ED somewhat agitated and tremulous and received IV ativan -> now pt quite drowsy -Received ativan IV multiple times, now ordered IM 2.5mg zyprexa 2/ ongoing agitation Infectious work up: UA negative, blood cultures NGTD Delirium precautions - cont. to closely monitor on Tele. nephrology contacted to assist w/ PD needs if not taking PO medications consistently, start heparin drip given in ability to consistently take apixaban. -Bedside swallow this am for eliquis -Speech consult for diet EEG for abnormal movements, doesn't appear consistent with seizure like activity, but shaheen to dyskinesia/chorea like motions; patient's increased alertness and continued motions will limit ability for MRI -Neurology consult #ESRD on PD Nephrology on consult -PD started today IV lasix 100mg now, plan for daily until able to take po #Acute pain, reportedly muscle spasms #History Nausea with RUQ noted at OP visit on 08/09 with pending RUQ US ordered; similar concerns in 2022 Prior US with sludge and cholelithiasis, pancreas with IPOMN 2022 Prescribed hydroxyzine at that time Was taking Flexeril with relief previously -IV tylenol and heat compress on right back Patient has long standing history of pain, and took to much pain medication. Will continue disucssion with #Persistent Atrial fibrillation with RVR recieved 1 dose IV metoprolol -Start IV 2.5 q 6 h metoprolol Resume PO when able, metoprolol 12.5mg daily home regimen Continue Eliquis, heparin if not able to take po Cardiology consult for eval #Elevated Troponin iso ESRD and A fib RVR, no chest pain or concern for active ACS Monitor on Tele Chronic baseline elevation Peak 120, downtrending with improvement of rates #Chronic diastolic CHF (congestive heart failure) #Chronic LBBB Appears euvolemic, continue torsemide when able to take PO IV forsemide 100mg daily #COPD albuterol prn #DM type 2 (diabetes mellitus, type 2) with neuropathy Hgb A1c 7.4 08/2022, repeat A1C Hold oral agents and utilize NovoLog per protocol while hospitalized Hold gabapentin as above #Chronic back pain, lumbar disc herniation with radiculopathy Flexeril 5mg TID ordered in OP records previously Consider pain mgmt consult On chronic opidoids, will order IV dilaudid until po at 0.25 to help stave off withdrawal, blunt pain #Chronic Hyponatremia Na 134, chronic, at baseline Volume mgmt via PD #Chronic ANGY (iron deficiency anemia) Baseline ~9-10 Stable #Gout Allopurinol 100mg daily #Hypothyroidism Continue levothyroxine TSH 08/22: #Depression #Severe anxiety 5mg BID Buspar, Hydroxyzine at home #BPH Home terazosin, resume when able DVT Px: Eliquis Code status: DNI/DNR Admission and Anticipated Discharge Date Admission Date: August 22, 2023 Subjective No further zyprexa overnight More alert this morning, but not at baseline. Answers some questions appropriately, but not entirely coherent. AO2 Writhing like movements noted, patient seems to be unaware of movements. -Per daughter not normal/baseline Physical Exam Constitutional: writhing movements of hands, wincing/grimacing of face, forced breathing pattern intermittently Respiratory: clear lungs, intermittent forced expiratory efforts, no clear pattern c/w vincent lopez breathing, seems anxiety based/discomfort? Cardiovascular: irregularly irregular Results & Data Results & Data Vital Signs (Past 12 Hours) Vital Signs Temp Pulse Pulse Resp BP BP BP 08/24/23 04:17 76 118/74 08/24/23 04:02 95 H 134/88 08/24/23 02:50 36.6 C 99 H 18 128/72 08/24/23 00:28 75 113/73 08/24/23 00:13 80 147/86 H 08/24/23 00:10 80 147/86 H 08/23/23 23:14 08/23/23 22:56 36.6 C 80 18 118/93 08/23/23 20:42 74 123/86 08/23/23 20:27 84 129/93 08/23/23 20:24 36.5 C 84 18 129/93 Pulse Ox O2 Del Method O2 Flow Rate 08/24/23 04:17 08/24/23 04:02 08/24/23 02:50 98 Room Air 08/24/23 00:28 08/24/23 00:13 08/24/23 00:10 08/23/23 23:14 Nasal Cannula 3 08/23/23 22:56 98 Nasal Cannula 3 08/23/23 20:42 08/23/23 20:27 08/23/23 20:24 100 Nasal Cannula Laboratory Results Short CBC 08/24/23 Range/Units 05:38 WBC 9.68 (4.8-10.8) K/ul Hgb 10.9 L (14.0-18.0) g/dl Hct 32.5 L (42.0-52.0) % Plt Count 228 (130-400) K/uL BMP 08/24/23 05:38 Sodium 137 Potassium 3.9 Chloride 98 Carbon Dioxide 27 BUN 63 H Creatinine 6.78 H* Glucose 64 L Calcium 9.0 Medications Administered Home Medications Medication Instructions Recorded Confirmed Last Taken allopurinol 100 mg tablet 100 mg PO QAM 02/25/18 08/22/23 Unknown levothyroxine 150 mcg tablet 150 mcg PO DAILYBB 08/12/20 08/22/23 Unknown docusate sodium 100 mg tablet 100 mg PO AMHS 08/29/22 08/22/23 Unknown torsemide 100 mg tablet 100 mg PO QAM 08/29/22 08/22/23 Unknown albuterol sulfate 90 mcg/actuation 2 puff inhalation Q4 PRN Wheezing 08/22/23 08/22/23 Unknown aerosol inhaler apixaban 2.5 mg tablet (Eliquis) 2.5 mg PO AMHS 08/22/23 08/22/23 Unknown baclofen 5 mg tablet 5 mg PO UD 08/22/23 08/22/23 Unknown buspirone 5 mg tablet 5 mg PO UD 08/22/23 08/22/23 Unknown glipizide 10 mg tablet 10 mg PO AMHS 08/22/23 08/22/23 Unknown hydrocodone 5 mg-acetaminophen 325 1 tab PO UD PRN Pain 08/22/23 08/22/23 Unknown mg tablet hydroxyzine HCl 25 mg tablet 25 mg PO UD 08/22/23 08/22/23 Unknown lactulose 10 gram/15 mL oral 15 ml PO BID PRN severe 08/22/23 08/22/23 Unknown solution constipation potassium chloride 10 mEq 20 meq PO BID 08/22/23 08/22/23 Unknown tablet,extended release(part/cryst) terazosin 1 mg capsule 1 mg PO HS 08/22/23 08/22/23 Unknown vitamin B complex-vitamin C-folic 1 tab PO DAILY 08/22/23 08/22/23 Unknown acid 0.8 mg tablet (Jessie-Joycelyn) Active Medications Generic Name Dose Route Start Last Admin Trade Name Freq PRN Reason Stop Dose Admin Apixaban 2.5 mg 08/22/23 21:00 08/23/23 20:10 Apixaban 2.5 Mg Tab PO 09/21/23 20:59 Not Given BID LILI Furosemide 100 mg 08/23/23 12:45 08/23/23 12:59 Furosemide 40 Mg/4 Ml Vial IV 09/22/23 12:44 100 mg DAILY LILI Administration Hydromorphone HCl 0.25 mg 08/23/23 12:56 08/24/23 05:04 Hydromorphone Inj 0.5 Mg/0.5 Ml Syr IV 09/06/23 12:55 0.25 mg Q6H PRN Administration Severe Pain (Scale 7, 8, 9,10) Lorazepam 0.5 mg/ Syringe 0.5 mls @ 2 mls/min 08/22/23 21:35 08/24/23 04:08 IV 09/21/23 21:34 2 mls/min Q4H PRN Administration Anxiety/Agitation Levothyroxine Sodium 150 mcg 08/23/23 06:30 08/24/23 06:00 Levothyroxine Sodium 150 Mcg Tablet PO 09/22/23 06:29 Not Given DAILYBB LILI Metoprolol Tartrate 2.5 mg 08/23/23 16:00 08/24/23 04:02 Metoprolol Tartrate 1 Mg/Ml Vial IV 09/22/23 15:59 2.5 mg Q4 LILI Administration
[2023-08-24] MEDS ORDERED: Heparin IV Adult Wt-Based Low-Dose *NO* INITIAL Bolus Protocol IV SCH (07:05)
[2023-08-24] MEDS ORDERED: HEPARIN SODIUM/DEXTROSE 25,000 UNITS/500 ML BAG IV SCH (07:30)
--- NOTE | 2023-08-24 07:39 | Cardiology Consultation ---
Date of Consultation August 24, 2023 Assessment & Plan (1) Permanent atrial fibrillation: Plan IMPRESSION: 83 year old male with permanent AFIB and ESRD presented to [facility] due to AMS secondary to increased use of Baclofen and hydrocodone. Cardiology consulted for assistance in AFIB rate management. PLAN: AFIB RVR: HR improving with IV Lopressor and cessation of baclofen use. Baclofen contradicted in ESRD and can also cause worsening control of heart rates in AFIB- would avoid this medication moving forward. Continue IV Lopressor 2.5 mg q4 hours-- when patient is able to take PO consistently would transition to oral metoprolol succinate Recommend avoidance of digoxin given underlying ESRD. Rates should improve as underlying cause is corrected. Continue Eliquis 2.5 mg BID (dose reduced due to age and renal function)-- if patient unable to take PO will need to transition to IV heparin. Case discussed with Dr. Evans. Further recommendations pending assessment. I spent a total of 40 minutes on the date of service in preparation, delivery, and documentation of the care provided to the patient excluding any time spent in the performance of separately billed services. ANA Bo Department of Cardiology, [facility] This chart was completed in part utilizing Speech Voice Recognition Software. Grammatical errors, random word insertions, pronoun errors, and incomplete sentences are an occasional consequence of this system due to software limitations, ambient noise, and hardware issues. Any formal questions or concerns about the content, text, or information contained within the body of this dictation should be directly addressed to the provider for clarification. Supervising Physician Co-Signing Physician Notes Patient was seen and personally examined, chart, medications telemetry reviewed. Full assessment and plan as outlined by advanced provider as above. Care discussed, plan endorsed and full responsibility for plan of care noted 83-year-old male with end-stage renal disease on peritoneal dialysis presented with acute mental status change and agitation, medication induced With agitation and delirium heart rate elevated. Baseline rhythm chronically is atrial fibrillation with left bundle branch block. No acute arrhythmia change of than elevation in rate being driven by underlying medical issues Heart rates currently controlled with IV metoprolol low-dose. Plan as outlined to transition back to metoprolol succinate 12.5 mg twice per day once able to resume oral intake I spent a total of 25 minutes on the date of service in preparation, delivery, and documentation of the care provided to this patient, excluding any time spent in the performance of separately billed services. History of Present Illness Reason for Consultation: Atrial fibrillation Requesting Physician: Yamini dominguez Attending Physician: Yina Aguilar MD History of Present Illness Medically complex 83-year-old male who initially presented to [facility] emergency department via EMS due to altered mental status and tremors. Was having significant back spasms and took an five 10 mg baclofen tablets with in 12 hours as well as hydrocodone. In the emergency department he was agitated and tremulous, received IV Ativan as well as Zyprexa. Heart rates were tachycardic. Patient in A-fib with RVR. Atrial fibrillation known. Started on IV Lopressor due to inability of taking oral pills due to AMS. Telemetry: Labs: Anemia stable, hemoglobin 10.9. End-stage renal disease with a creatinine of 6.78, receiving peritoneal dialysis. Electrolytes stable. Upon entrance into the room patient resting in bed. Partially oriented to person and place. No acute concerns, but visibly appears dyspneic and uncomfortable. Denies any chest pain or shortness of breath. No palpitations or lightheadedness. No orthopnea or PND. No lower extremity edema. Taking minimal oral medications due to mental status. Was able to take his Eliquis this morning. Tele: AFIB 70-80s, up to 100s this am prior to meds. Echo pending. 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 [id number] score of 6--on dose reduced Eliquis (age and renal function) Longstanding labile hypertension with hypertensive heart disease, multiple medication intolerances Chronic diastolic CHF Nonobstructive coronary disease per diagnostic cardiac cath 07/24/2009--mild luminal irregularities without high-grade obstructive disease, most significant lesion 30% proximal RCA Chronic left bundle branch block Mitral regurgitation Enlarged aortic root Mild bilateral carotid disease Type 2 diabetes Thyroid cancer Prostate cancer History of gout Generalized anxiety Hypothyroidism Chronically elevated right hemidiaphragm End-stage kidney disease, transiently on hemodialysis now on peritoneal dialysis--follows with Dr. Diaz Chronic hyponatremia, sodium 134, baseline. Chronic anemia Allergies Allergy/AdvReac Type Severity Reaction Status Date / Time clonidine Allergy Unknown allergic Unverified 08/22/23 15:41 to all but 1 brand carvedilol Allergy Hives Verified 08/22/23 15:41 losartan Allergy Unknown Verified 08/22/23 15:41 ANJELICA Inhibitors AdvReac Intermediate INTOLERANCE Verified 08/22/23 15:41 PER MD ORDER allopurinol AdvReac Intermediate severe abd Verified 08/22/23 15:41 pain Beta-Blockers AdvReac Intermediate INTOLERANCE Verified 08/22/23 15:41 (Beta-Adrenergic Bloc PER DR ARELLANO doxazosin AdvReac Intermediate INTOLERANCE Verified 08/22/23 15:[address] ARELLANO Dncurbi-EZZ-MlJ Reductase AdvReac Intermediate INTOLERANCE Verified 08/22/23 15:41 Inhibitor PER [Tgurpri-Auv-Kjd Reductase ADAN Inhibitor] citalopram AdvReac Unknown Verified 08/22/23 15:41 hydralazine AdvReac diarrhea, Verified 08/22/23 15:41 testicular pain hydrochlorothiazide AdvReac hyponatremi Verified 08/22/23 15:41 a lisinopril AdvReac Cough Verified 08/22/23 15:41 simvastatin [From Zocor] AdvReac Muscle Pain Verified 08/22/23 15:41 sitagliptin [From Januvia] AdvReac restlessnes Verified 08/22/23 15:41 s Home Medications Medication Instructions Recorded Confirmed Type allopurinol 100 mg tablet 100 mg PO QAM 02/25/18 08/22/23 History levothyroxine 150 mcg tablet 150 mcg PO DAILYBB 08/12/20 08/22/23 History docusate sodium 100 mg tablet 100 mg PO AMHS 08/29/22 08/22/23 History torsemide 100 mg tablet 100 mg PO QAM 08/29/22 08/22/23 History albuterol sulfate 90 mcg/actuation 2 puff inhalation Q4 PRN Wheezing 08/22/23 08/22/23 History aerosol inhaler apixaban 2.5 mg tablet (Eliquis) 2.5 mg PO AMHS 08/22/23 08/22/23 History baclofen 5 mg tablet 5 mg PO UD 08/22/23 08/22/23 History buspirone 5 mg tablet 5 mg PO UD 08/22/23 08/22/23 History glipizide 10 mg tablet 10 mg PO AMHS 08/22/23 08/22/23 History hydrocodone 5 mg-acetaminophen 325 1 tab PO UD PRN Pain 08/22/23 08/22/23 History mg tablet hydroxyzine HCl 25 mg tablet 25 mg PO UD 08/22/23 08/22/23 History lactulose 10 gram/15 mL oral 15 ml PO BID PRN severe 08/22/23 08/22/23 History solution constipation potassium chloride 10 mEq 20 meq PO BID 08/22/23 08/22/23 History tablet,extended release(part/cryst) terazosin 1 mg capsule 1 mg PO HS 08/22/23 08/22/23 History vitamin B complex-vitamin C-folic 1 tab PO DAILY 08/22/23 08/22/23 History acid 0.8 mg tablet (Jessie-Joycelyn) Patient History Medical History Foot drop, bilateral Pancreatic cyst Gout ANGY (iron deficiency anemia) Peritoneal dialysis catheter in situ ESRD (end stage renal disease) Pulmonary hypertension Chronic diastolic CHF (congestive heart failure) LBBB (left bundle branch block) Atrial fibrillation COPD (chronic obstructive pulmonary disease) Hypothyroidism DM type 2 (diabetes mellitus, type 2) Spinal stenosis Prostate ca Thyroid cancer Hypertension Surgical History History of fusion of lumbar spine L2-S1, instrumented S/P lumbar fusion Family History Other Diabetes Hypertension Social History Smoking Status: Former smoker Cigarettes Per Day: 10; Smoking End Date: 1969; Second Hand Exposure: No; Do You Dip or Chew Tobacco: No; Tobacco Cessation Education Requested by Patient: No Hx Alcohol Use: No Hx Substance Use: No Preferred Language: Malawian Communication Ability: Effective Welder 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 ) Results & Data Vital Signs (Past 12 Hours) Vital Signs Temp Pulse Pulse Resp BP BP BP 08/24/23 04:17 76 118/74 08/24/23 04:02 95 H 134/88 08/24/23 02:50 36.6 C 99 H 18 128/72 08/24/23 00:28 75 113/73 08/24/23 00:13 80 147/86 H 08/24/23 00:10 80 147/86 H 08/23/23 23:14 08/23/23 22:56 36.6 C 80 18 118/93 08/23/23 20:42 74 123/86 08/23/23 20:27 84 129/93 08/23/23 20:24 36.5 C 84 18 129/93 Pulse Ox O2 Del Method O2 Flow Rate 08/24/23 04:17 08/24/23 04:02 08/24/23 02:50 98 Room Air 08/24/23 00:28 08/24/23 00:13 08/24/23 00:10 08/23/23 23:14 Nasal Cannula 3 08/23/23 22:56 98 Nasal Cannula 3 08/23/23 20:42 08/23/23 20:27 08/23/23 20:24 100 Nasal Cannula Laboratory Results CBC 08/24/23 Range/Units 05:38 WBC 9.68 (4.8-10.8) K/ul RBC 3.43 L (4.70-6.10) M/uL Hgb 10.9 L (14.0-18.0) g/dl Hct 32.5 L (42.0-52.0) % Plt Count 228 (130-400) K/uL Comprehensive Metabolic Panel 08/24/23 Range/Units 05:38 Sodium 137 (136-145) mmol/L Potassium 3.9 (3.5-5.1) mmol/L Chloride 98 (98-107) mmol/L Carbon Dioxide 27 (21-32) mmol/L BUN 63 H (6-23) mg/dl Creatinine 6.78 H* (0.6-1.4) mg/dl Glucose 64 L (70-99(Fasting)) mg/dl Calcium 9.0 (8.6-10.3) mg/dl Intake and Output 08/23/23 08/24/23 08/24/23 22:59 06:59 14:59 Intake Total 100 / 100 Output Total 1764 / 2714 950 / 2714 Balance -1664 / -2614 -950 / -2614 Intake: IV 100 / 100 Acetaminophen 1,000 mg In 100 100 / 100 ml @ 400 mls/hr IV NOW STA Rx#: [id number] Output: Urine Amount (Catheter) 950 / 950 Butt/Indwelling 950 / 950 Peritoneal Dialysis 1764 / 1764 Ultrafiltration Amount Other: Weight 87.8 kg 87.8 kg Weight Measurement Method Built in [facility] Diagnostic Findings Echo 08/24/2023 PENDING* Outpatient echocardiogram 08/2022 Interpretation Summary The qualitative LV ejection fraction is 55-59% (normal). The LV wall thickness is moderately increased (concentric). The septal motion is abnormal consistent with left bundle branch block. The right ventricular cavity size is normal The right ventricular systolic function is normal Mild aortic valve regurgitation is present. Mild tricuspid regurgitation is present. No pericardial effusion is noted. There is no evidence of pulmonary hypertension. Normal IVC size and collapsability with sniff indicates a normal right atrial pressure of 3 mmHg. The estimated pulmonary artery systolic pressure is 23mm Hg.
--- NOTE | 2023-08-24 09:03 | Pain Management Consultation ---
Date of Consultation August 24, 2023 Assessment & Plan (1) Baclofen overdose: Encounter type: initial encounter Injury intent: undetermined intent Qualified Code(s): T42.8X4A - Poisoning by antiparkinsonism drugs and other central muscle-tone depressants, undetermined, initial encounter (2) Anticholinergic syndrome: Encounter type: initial encounter Injury intent: undetermined intent Qualified Code(s): T44.3X4A - Poisoning by other parasympatholytics [anticholinergics and antimuscarinics] and spasmolytics, undetermined, initial encounter (3) Foot drop, bilateral: (4) Altered mental status: (5) History of fusion of lumbar spine: Plan 1. Patient very slow to respond to questions today, and he only uses yes and no answers. Unsure of his baseline mental status, but he demonstrates dyskinesia movements of the bilateral upper extremities and his head/neck. 2. When questioned about pain, he says that he has none. Additionally, when questioned about history of muscle spasms, he also denies a history of this. 3. Currently, no pain or spasm medication adjustments are recommended by the pain management service, as the patient seems to be not in his normal state. 4. Additionally, no procedural interventions are indicated due to the patient being on peritoneal dialysis with ESRD, as well as with his seemingly altered mental status and potential condition of baclofen toxicity. 5. Will wait for the patient to become more medically optimized and returning to his baseline mental status, and then we can revisit to discuss pain and spasms, as I imagine there likely is a history of this with him having had lumbar spine surgery x 2, and currently a posterior instrumented L2-S1 fusion. History of Present Illness Attending Physician: Yina Aguilar MD History of Present Illness Patient is an 83-year-old male that presented to the [facility] ED on 08/22/2023 with an altered mental status. His family was apparently concerned that he was not himself and very confused. He was reportedly agitated upon arrival to the ED. It was noted that he was dehydrated at the time. There was report that the patient took too many baclofen tablets that morning, possibly 5 at one time. Additionally, he was taking Oxycodone prescribed by his PCP. He does have a history of low back pain, and there is question of longstanding foot drop. Review of imaging demonstrates that he has a posterior instrumented L2-S1 fusion. Research shows that the patient had a L3-L5 laminectomy, and then was having recurrent spinal stenosis, so he had a revision surgery by Dr. Guerrier in December 2012 that resulted in the L2-S1 fusion. The patient really was not able to have any meaningful conversation today as to whether he was having pain or muscle spasms, but when asked if he was, he denied both. He was demonstrating dyskinesia type movements on exam today and not responding normally to questions. Apparently, these movements were not the patient's baseline Case discussed with Dr. Tiffany Arroyo. Allergies Allergy/AdvReac Type Severity Reaction Status Date / Time clonidine Allergy Unknown allergic Unverified 08/22/23 15:41 to all but 1 brand carvedilol Allergy Hives Verified 08/22/23 15:41 losartan Allergy Unknown Verified 08/22/23 15:41 ANJELICA Inhibitors AdvReac Intermediate INTOLERANCE Verified 08/22/23 15:41 PER MD ORDER allopurinol AdvReac Intermediate severe abd Verified 08/22/23 15:41 pain Beta-Blockers AdvReac Intermediate INTOLERANCE Verified 08/22/23 15:41 (Beta-Adrenergic Bloc PER DR ARELLANO doxazosin AdvReac Intermediate INTOLERANCE Verified 08/22/23 15:[address] ARELLANO Ozifpia-MLC-IbV Reductase AdvReac Intermediate INTOLERANCE Verified 08/22/23 15:41 Inhibitor PER [Ydaltnp-Uzt-Zed Reductase ADAN Inhibitor] citalopram AdvReac Unknown Verified 08/22/23 15:41 hydralazine AdvReac diarrhea, Verified 08/22/23 15:41 testicular pain hydrochlorothiazide AdvReac hyponatremi Verified 08/22/23 15:41 a lisinopril AdvReac Cough Verified 08/22/23 15:41 simvastatin [From Zocor] AdvReac Muscle Pain Verified 08/22/23 15:41 sitagliptin [From Januvia] AdvReac restlessnes Verified 08/22/23 15:41 s Home Medications Medication Instructions Recorded Confirmed Type allopurinol 100 mg tablet 100 mg PO QAM 02/25/18 08/22/23 History levothyroxine 150 mcg tablet 150 mcg PO DAILYBB 08/12/20 08/22/23 History docusate sodium 100 mg tablet 100 mg PO AMHS 08/29/22 08/22/23 History torsemide 100 mg tablet 100 mg PO QAM 08/29/22 08/22/23 History albuterol sulfate 90 mcg/actuation 2 puff inhalation Q4 PRN Wheezing 08/22/23 08/22/23 History aerosol inhaler apixaban 2.5 mg tablet (Eliquis) 2.5 mg PO AMHS 08/22/23 08/22/23 History baclofen 5 mg tablet 5 mg PO UD 08/22/23 08/22/23 History buspirone 5 mg tablet 5 mg PO UD 08/22/23 08/22/23 History glipizide 10 mg tablet 10 mg PO AMHS 08/22/23 08/22/23 History hydrocodone 5 mg-acetaminophen 325 1 tab PO UD PRN Pain 08/22/23 08/22/23 History mg tablet hydroxyzine HCl 25 mg tablet 25 mg PO UD 08/22/23 08/22/23 History lactulose 10 gram/15 mL oral 15 ml PO BID PRN severe 08/22/23 08/22/23 History solution constipation potassium chloride 10 mEq 20 meq PO BID 08/22/23 08/22/23 History tablet,extended release(part/cryst) terazosin 1 mg capsule 1 mg PO HS 08/22/23 08/22/23 History vitamin B complex-vitamin C-folic 1 tab PO DAILY 08/22/23 08/22/23 History acid 0.8 mg tablet (Jessie-Joycelyn) Patient History Medical History Foot drop, bilateral Pancreatic cyst Gout ANGY (iron deficiency anemia) Peritoneal dialysis catheter in situ ESRD (end stage renal disease) Pulmonary hypertension Chronic diastolic CHF (congestive heart failure) LBBB (left bundle branch block) Atrial fibrillation COPD (chronic obstructive pulmonary disease) Hypothyroidism DM type 2 (diabetes mellitus, type 2) Spinal stenosis Prostate ca Thyroid cancer Hypertension Surgical History History of fusion of lumbar spine L2-S1, instrumented S/P lumbar fusion Family History Other Diabetes Hypertension Social History Smoking Status: Former smoker Cigarettes Per Day: 10; Smoking End Date: 1969; Second Hand Exposure: No; Do You Dip or Chew Tobacco: No; Tobacco Cessation Education Requested by Patient: No Hx Alcohol Use: No Hx Substance Use: No Preferred Language: Bruneian Communication Ability: Effective 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 Slow to respond to questions, sometimes not at all. Only uses yes and no answers. HEAD: Normocephalic; atraumatic. NECK: Trachea is midline. EXTREMITIES: No TTP. Distal pulses intact bilaterally. NEURO: Not oriented to person, place, or time. LOWER EXTREMITIES: Negative straight leg raise bilaterally. R ankle plantar flexion - does not attempt/unable to do L ankle plantar flexion - does not attempt/unable to do Results (Pain Clinic) Diagnostic Review CT Findings: Laboratory Results WBC 9.68 K/ul (4.8-10.8) 08/24/23 05:38 RBC 3.43 M/uL (4.70-6.10) L 08/24/23 05:38 Hgb 10.9 g/dl (14.0-18.0) L 08/24/23 05:38 POC Hgb 11.2 g/dl (14.0-18.0) L 08/22/23 21:43 Hct 32.5 % (42.0-52.0) L 08/24/23 05:38 POC Hct 33 % (42-52) L 08/22/23 21:43 MCV 94.8 fL (80.0-100.0) 08/24/23 05:38 MCH 31.8 pg (25.0-34.0) 08/24/23 05:38 MCHC 33.5 g/dL (32.0-36.0) 08/24/23 05:38 RDW Std Deviation 46.9 fL (36.4-46.3) H 08/24/23 05:38 RDW Coeff of Pooja 13.9 % (11.5-14.5) 08/24/23 05:38 Plt Count 228 K/uL (130-400) 08/24/23 05:38 MPV 9.9 fL (9.4-12.4) 08/24/23 05:38 Immature Gran % (Auto) 0.5 % 08/22/23 12:30 Neut % (Auto) 89.3 % 08/22/23 12:30 Lymph % (Auto) 4.3 % 08/22/23 12:30 [place] % (Auto) 5.6 % 08/22/23 12:30 Eos % (Auto) 0.1 % 08/22/23 12:30 Baso % (Auto) 0.2 % 08/22/23 12:30 Neut # (Auto) 8.73 K/uL (1.40-6.50) H 08/22/23 12:30 Lymph # (Auto) 0.42 K/uL (1.20-3.40) L 08/22/23 12:30 [place] # (Auto) 0.55 K/uL (0.11-0.59) 08/22/23 12:30 Eos # (Auto) 0.01 K/uL (0.00-0.50) 08/22/23 12:30 Baso # (Auto) 0.02 K/uL (0.00-0.20) 08/22/23 12:30 Immature Gran # (Auto) 0.05 K/uL (0.01-0.20) 08/22/23 12:30 POC pH 7.25 (7.35-7.45) L 08/22/23 21:43 POC pCO2 42 mmHg (35-46) 08/22/23 21:43 POC pO2 100 mmHg (80-95) H 08/22/23 21:43 POC HCO3 19 itzel/L (19-24) 08/22/23 21:43 POC Total CO2 20 mmol/L (24-31) L 08/22/23 21:43 POC Base Excess -9.0 itzel/L (-9-1.8) 08/22/23 21:43 POC ABG O2 Sat 97.0 % (90-95) H 08/22/23 21:43 POC Sodium 130 mmol/L (135-144) L 08/22/23 21:43 Sodium 137 mmol/L (136-145) 08/24/23 05:38 POC Potassium 3.8 mmol/L (3.3-5.0) 08/22/23 21:43 Potassium 3.9 mmol/L (3.5-5.1) 08/24/23 05:38 Chloride 98 mmol/L (98-107) 08/24/23 05:38 Carbon Dioxide 27 mmol/L (21-32) 08/24/23 05:38 Anion Gap 12 (3-11) H 08/24/23 05:38 BUN 63 mg/dl (6-23) H 08/24/23 05:38 Creatinine 6.78 mg/dl (0.6-1.4) H* 08/24/23 05:38 Est Cr Clr Drug Dosing 8.9 ml/min 08/24/23 05:38 Est GFR ( Amer) 8.0 ml/min 08/24/23 05:38 Est GFR (Non-Af Amer) 6.9 ml/min 08/24/23 05:38 BUN/Creatinine Ratio 9.3 (10-20) L 08/24/23 05:38 Glucose 64 mg/dl (70-99(Fasting)) L 08/24/23 05:38 POC Glucose 107 mg/dl (70-99) H 08/24/23 06:37 Estimat Average Glucose 220 mg/dl 08/23/23 07:42 Hemoglobin A1c 9.3 % (4.5-5.6) H 08/23/23 07:42 Calcium 9.0 mg/dl (8.6-10.3) 08/24/23 05:38 Phosphorus 7.7 mg/dl (2.5-4.9) H 08/24/23 05:38 Magnesium 2.1 mg/dl (1.7-2.4) 08/24/23 05:38 Total Bilirubin 0.5 mg/dl (0.2-1.0) 08/22/23 12:30 Direct Bilirubin 0.1 mg/dl (0-0.2) 08/22/23 12:30 AST 48 U/L (13-39) H 08/22/23 12:30 ALT 42 U/L (7-52) 08/22/23 12:30 Alkaline Phosphatase 92 U/L (34-104) 08/22/23 12:30 Ammonia 20.0 umol/L (18-72) 08/23/23 07:42 Troponin I High Sens 112.2 pg/ml (0-20) H* 08/22/23 14:15 Total Protein 7.9 gm/dl (6.0-8.3) 08/22/23 12:30 Albumin 4.1 gm/dl (3.4-5.0) 08/22/23 12:30 Lipase 52 U/L (11-82) 08/22/23 12:30 Procalcitonin 0.43 ng/ml (0-0.5) 08/22/23 12:30 TSH 3.814 uIu/ml (0.300-4.500) 08/23/23 05:45 Urine Color Yellow 08/22/23 15:45 Urine Appearance Clear (Clear) 08/22/23 15:45 Urine pH 5.5 (4.5-7.5) 08/22/23 15:45 Ur Specific [place] 1.011 (1.000-1.030) 08/22/23 15:45 Urine Protein 2+ (Negative) H 08/22/23 15:45 Urine Glucose (UA) Negative (Negative) 08/22/23 15:45 Urine Ketones Negative (Negative) 08/22/23 15:45 Urine Blood 2+ (Negative) H 08/22/23 15:45 Urine Nitrite Negative (Negative) 08/22/23 15:45 Urine Bilirubin Negative (Negative) 08/22/23 15:45 Urine Urobilinogen Negative (Negative) 08/22/23 15:45 Ur Leukocyte Esterase Negative (Negative) 08/22/23 15:45 Urine WBC (Auto) 0-5 /hpf (0-5) 08/22/23 15:45 Urine RBC (Auto) 0-2 /hpf (0-2) 08/22/23 15:45 U Hyaline Cast (Auto) 3-5 /lpf (0-2) H 08/22/23 15:45 U Epithel Cells (Auto) 0-2 /hpf (0-2) 08/22/23 15:45 Urine Bacteria (Auto) None Seen (None Seen) 08/22/23 15:45 Salicylates < 3.0 mg/dl (3.0-30) L 08/22/23 15:45 Acetaminophen < 3 ug/ml (10-30) L 08/22/23 15:45 Impressions Chest X-Ray 08/22/23 12:21 XR chest 1V portable HISTORY: 83 years-old Male confusion acutely altered mental status COMPARISON: 11/02/2022 TECHNIQUE: AP view chest FINDINGS: Cardiac silhouette is enlarged. Stable right hemidiaphragmatic elevation. Pulmonary vascular congestion with bibasilar opacities. No pneumothorax. Degenerative changes of the shoulders and spine. IMPRESSION: 1. Cardiomegaly with pulmonary vascular congestion. 2. Chronic right hemidiaphragm elevation with bibasilar atelectasis. ACT 112: Negative or not required by law. The above report was generated using voice recognition software. It may contain grammatical, syntax or spelling errors. Electronically signed by: Medardo Medrano M.D. 08/22/2023 1:11 PM
[2023-08-24] MEDS: OLANZapine 10 MG/2.1 ML SDV IM PRN (10:24)
--- NOTE | 2023-08-24 10:34 | Dialysis Progress Note ---
Date of Service August 24, 2023 Assessment & Plan Admission and Anticipated Discharge Date Admission Date: August 22, 2023 Subjective Assessment & Plan (1) ESRD (end stage renal disease): Fortunately no e/o fluid overload or major electrolyte problem. for today will do half at 1.5% and half at 2.5% for a total of 4 exchanges. Given his issue with severe Anxiety/panic will do him through cylcer only during the day time. We do not have enough nursing coverage 24 hrs to fully answer his issues all night. Raise lasix to 100 bid. he normally gets kcl at home so do 20 bid with iv lasix. (2) Altered mental status: he had too many Baclofen. this muscle relaxant is contraindicated in Dialysis patient and should not be used ever. hemodialysis is very good in clearing it but not as much data with PD. But mental status almost normal today so we are out of danger from baclofen now S--patient is awake and alert today and talked with him in detail. Still has Ongoing back pain. gets very anxious/Panic attacks whenever he gets any type of pain. SOme SOB. went into afibb with RVR ( not new) . seen by cardiology. Did get iv lasix 100 earlier today Physical Exam Constitutional: Unresponsive after meds given Eyes: PERRL, conjunctivae normal, anicteric sclerae ENMT: external ear and nose normal, oropharynx normal Neck: normal visual inspection Respiratory: normal respiratory effort, lungs clear to auscultation Cardiovascular: irregular. Soft systolic Murmur. No edema Chest (Breasts): Chest: normal inspection of chest Gastrointestinal (Abdomen): normal bowel sounds, soft, nontender, PD site is normal. Musculoskeletal: Skin: no rashes, warm and dry Neurologic: drowsy but arousable, speech slow but fluent, moves extremities Lymphatic: No LE edema Results & Data Vital Signs (Past 12 Hours) Vital Signs Temp Pulse Pulse Resp BP BP Pulse Ox 08/24/23 09:50 94 H 127/82 08/24/23 09:49 94 H 25 H 127/82 94 08/24/23 09:36 99 H 149/94 H 08/24/23 09:31 99 H 149/94 H 08/24/23 07:44 37.0 C 94 H 18 124/65 95 08/24/23 04:17 76 118/74 08/24/23 04:02 95 H 134/88 08/24/23 02:50 36.6 C 99 H 18 128/72 98 08/24/23 00:28 75 113/73 08/24/23 00:13 80 147/86 H 08/24/23 00:10 80 147/86 H 08/23/23 23:14 08/23/23 22:56 36.6 C 80 18 118/93 98 O2 Del Method O2 Flow Rate 08/24/23 09:50 08/24/23 09:49 Nasal Cannula 2 08/24/23 09:36 08/24/23 09:31 08/24/23 07:44 Nasal Cannula 3 08/24/23 04:17 08/24/23 04:02 08/24/23 02:50 Room Air 08/24/23 00:28 08/24/23 00:13 08/24/23 00:10 08/23/23 23:14 Nasal Cannula 3 08/23/23 22:56 Nasal Cannula 3
[2023-08-24] MEDS: POTASSIUM CHLORIDE / WTR 10 MEQ/100 ML PLCT IV SCH (12:00)
--- NOTE | 2023-08-24 12:09 | Neurology Consultation ---
Date of Consultation August 24, 2023 Assessment & Plan (1) Altered mental status: Metabolic encephalopathy- likely secondary to medication overuse in setting of ESRD Agree with continued limitation of sedatives Agree with Nephrology consultation/continue dialysis Continue metabolic workup, infectious workup Agree with obtaining EEG Continue to monitor for s/s of seizure-provide seizure precautions Recommend continue to monitor neurological assessments Obtain stat CT brain without contrast for any decline MRI brain with and without contrast when able to tolerate Continue telemetry, monitor closely Continue full anticoagulation, VTE prophylaxis if not fully anticoagulated Telehealth Consultation Telehealth Information Telehealth Information: I performed this visit using a real-time telehealth connection between my location and the patients location ([facility]). After connecting through interactive tele-video, patient was identified by name and date of and/or wristband check.Patient (or authorized healthcare retail sales representative) was informed that this was a telemedicine visit and it was being conducted confidentially over secure lines. My office door was closed and no on e else was present in the room with me.Patient (or authorized healthcare retail sales representative) provided consent to proceed with the visit, expressed an understanding of privacy and security of the telemedicine visit, and gave permission to have a hospital retail sales representative in the room in order to assist with the visit and to conduct portions of the visit, as needed. I informed the patient (or authorized healthcare retail sales representative) that I reviewed their record and presented the opportunity for them to ask any questions regarding the visit today. The patient agreed to participate. History of Present Illness Reason for Consultation: AMS, extremity movements Attending Physician: Yina Aguilar MD History of Present Illness 83yo male presents with decreased mentation following reported multiple doses of baclofen and opioids at home. Reportedly demonstrated agitation and tremor upon arrival in ER at which time benzodiazepines were administered. It is notable patient has hx of ESRD and undergoes PD. He has undergone PD while hospitalized per nephrology consultation. Metabolic and infectious workup is ongoing. His mentation has increased in terms of wakefulness but unfortunately continued to demonstrate aberrant movements in all extremities at times. Observed via televideo consultation in presence of RN. Notable for no movement until awakened then moves upper and lower extremities without significant features concerning for dyskinesia or seizure like activity. He appears sedated and will quickly fall back to sleep with eyes closed during exam but will open eyes to loud voice and will move extremities to command. It is also notable that prior to exam he received IM Zyprexa due to reported agitation. He also received lorazepam in Am as well likely contributing to presentation consistent with sedation. Obtaining further hx from patient is unable to be achieved due to current clinical presentation Vital signs reportedly stable and O2 sats are adequate- he has 2L O2 vis=a NC per report for comfort as patient was reporting SOB he has had CXR revealing vascular congestion He has a hx of AFIB for which I agree with continued full anticoagulation at this time unless contraindication is identified Allergies Allergy/AdvReac Type Severity Reaction Status Date / Time clonidine Allergy Unknown allergic Unverified 08/22/23 15:41 to all but 1 brand carvedilol Allergy Hives Verified 08/22/23 15:41 losartan Allergy Unknown Verified 08/22/23 15:41 ANJELICA Inhibitors AdvReac Intermediate INTOLERANCE Verified 08/22/23 15:41 PER MD ORDER allopurinol AdvReac Intermediate severe abd Verified 08/22/23 15:41 pain Beta-Blockers AdvReac Intermediate INTOLERANCE Verified 08/22/23 15:41 (Beta-Adrenergic Bloc PER DR ARELLANO doxazosin AdvReac Intermediate INTOLERANCE Verified 08/22/23 15:[address] ARELLANO [id number] Reductase AdvReac Intermediate INTOLERANCE Verified 08/22/23 1 5:41 Inhibitor PER [Tfpgang-Pul-Dej Reductase ADAN Inhibitor] citalopram AdvReac Unknown Verified 08/22/23 15:41 hydralazine AdvReac diarrhea, Verified 08/22/23 15:41 testicular pain hydrochlorothiazide AdvReac hyponatremi Verified 08/22/23 15:41 a lisinopril AdvReac Cough Verified 08/22/23 15:41 simvastatin [From Zocor] AdvReac Muscle Pain Verified 08/22/23 15:41 sitagliptin [From Januvia] AdvReac restlessnes Verified 08/22/23 15:41 s Home Medications Medication Instructions Recorded Confirmed Type allopurinol 100 mg tablet 100 mg PO QAM 02/25/18 08/22/23 History levothyroxine 150 mcg tablet 150 mcg PO DAILYBB 08/12/20 08/22/23 History docusate sodium 100 mg tablet 100 mg PO AMHS 08/29/22 08/22/23 History torsemide 100 mg tablet 100 mg PO QAM 08/29/22 08/22/23 History albuterol sulfate 90 mcg/actuation 2 puff inhalation Q4 PRN Wheezing 08/22/23 08/22/23 History aerosol inhaler apixaban 2.5 mg tablet (Eliquis) 2.5 mg PO AMHS 08/22/23 08/22/23 History baclofen 5 mg tablet 5 mg PO UD 08/22/23 08/22/23 History buspirone 5 mg tablet 5 mg PO UD 08/22/23 08/22/23 History glipizide 10 mg tablet 10 mg PO AMHS 08/22/23 08/22/23 History hydrocodone 5 mg-acetaminophen 325 1 tab PO UD PRN Pain 08/22/23 08/22/23 History mg tablet hydroxyzine HCl 25 mg tablet 25 mg PO UD 08/22/23 08/22/23 History lactulose 10 gram/15 mL oral 15 ml PO BID PRN severe 08/22/23 08/22/23 History solution constipation potassium chloride 10 mEq 20 meq PO BID 08/22/23 08/22/23 History tablet,extended release(part/cryst) terazosin 1 mg capsule 1 mg PO HS 08/22/23 08/22/23 History vitamin B complex-vitamin C-folic 1 tab PO DAILY 08/22/23 08/22/23 History acid 0.8 mg tablet (Jessie-Joycelyn) Patient History Medical History Foot drop, bilateral Pancreatic cyst Gout ANGY (iron deficiency anemia) Peritoneal dialysis catheter in situ ESRD (end stage renal disease) Pulmonary hypertension Chronic diastolic CHF (congestive heart failure) LBBB (left bundle branch block) Atrial fibrillation COPD (chronic obstructive pulmonary disease) Hypothyroidism DM type 2 (diabetes mellitus, type 2) Spinal stenosis Prostate ca Thyroid cancer Hypertension Surgical History History of fusion of lumbar spine L2-S1, instrumented S/P lumbar fusion Family History Other Diabetes Hypertension Social History Smoking Status: Former smoker Cigarettes Per Day: 10; Smoking End Date: 1969; Second Hand Exposure: No; Do You Dip or Chew Tobacco: No; Tobacco Cessation Education Requested by Patient: No Hx Alcohol Use: No Hx Substance Use: No Preferred Language: Georgian Communication Ability: Effective Still Operator Gin Required: No Beliefs That Will Affect Care: None marital status: Current Living Situation: Spouse Feels Safe at Home: Yes Safety Concerns: Feels Safe At This Time Assistive Devices: Walker and Wheelchair Physical Exam Neurological Examination: Mental Status: Sleeping- will awaken to loud voice Unable to accurately assess orientation or components of lanuage CN testing: I: Unable to accurately assess II:Unable to accurately assess III/IV/: No evidence of gaze preference, hippus, nystagmus or roving eye movements V: Unable to accurately assess VII: Facial movements appear without evidence of asymmetry VIII: Hearing appears grossly intact to loud voice IX/X: Unable to accurately assess XI: Unable to accurately assess XII: Unable to accurately assess Motor exam: Strength appears grossly intact/symmetric in all extremities Sensory: Unable to accurately assess Coordination:Unable to accurately assess Reflexes: Deferred Gait: Deferred Results & Data Vital Signs (Past 12 Hours) Vital Signs Temp Pulse Pulse Resp BP BP Pulse Ox 08/24/23 09:50 94 H 127/82 08/24/23 09:49 94 H 25 H 127/82 94 08/24/23 09:36 99 H 149/94 H 08/24/23 09:31 99 H 149/94 H 08/24/23 07:44 37.0 C 94 H 25 H 124/65 08/24/23 07:44 37.0 C 94 H 18 124/65 95 08/24/23 04:17 76 118/74 08/24/23 04:02 95 H 134/88 08/24/23 02:50 36.6 C 99 H 18 128/72 98 08/24/23 00:28 75 113/73 08/24/23 00:13 80 147/86 H 08/24/23 00:10 80 147/86 H O2 Del Method O2 Flow Rate 08/24/23 09:50 08/24/23 09:49 Nasal Cannula 2 08/24/23 09:36 08/24/23 09:31 08/24/23 07:44 08/24/23 07:44 Nasal Cannula 3 08/24/23 04:17 08/24/23 04:02 08/24/23 02:50 Room Air 08/24/23 00:28 08/24/23 00:13 08/24/23 00:10 Laboratory Results Abnormal lab results 08/23/23 08/23/23 08/24/23 Range/Units 12:02 16:42 05:38 RBC 3.43 L (4.70-6.10) M/uL Hgb 10.9 L (14.0-18.0) g/dl Hct 32.5 L (42.0-52.0) % RDW Std Deviation 46.9 H (36.4-46.3) fL Anion Gap 12 H (3-11) BUN 63 H (6-23) mg/dl Creatinine 6.78 H* (0.6-1.4) mg/dl BUN/Creatinine Ratio 9.3 L (10-20) Glucose 64 L (70-99(Fasting)) mg/dl POC Glucose 124 H 107 H (70-99) mg/dl Phosphorus 7.7 H (2.5-4.9) mg/dl 08/24/23 08/24/23 Range/Units 06:05 06:37 RBC (4.70-6.10) M/uL Hgb (14.0-18.0) g/dl Hct (42.0-52.0) % RDW Std Deviation (36.4-46.3) fL Anion Gap (3-11) BUN (6-23) mg/dl Creatinine (0.6-1.4) mg/dl BUN/Creatinine Ratio (10-20) Glucose (70-99(Fasting)) mg/dl POC Glucose 62 L* 107 H (70-99) mg/dl Phosphorus (2.5-4.9) mg/dl Medications Administered Home Medications Medication Instructions Recorded Confirmed Last Taken allopurinol 100 mg tablet 100 mg PO [facility] 02/25/18 08/22/23 Unknown levothyroxine 150 mcg tablet 150 mcg PO DAILYBB 08/12/20 08/22/23 Unknown docusate sodium 100 mg tablet 100 mg PO [facility] 08/29/22 08/22/23 Unknown torsemide 100 mg tablet 100 mg PO [facility] 08/29/22 08/22/23 Unknown albuterol sulfate 90 mcg/actuation 2 puff inhalation Q4 PRN Wheezing 08/22/23 08/22/23 Unknown aerosol inhaler apixaban 2.5 mg tablet (Eliquis) 2.5 mg PO [facility] 08/22/23 08/22/23 Unknown baclofen 5 mg tablet 5 mg PO UD 08/22/23 08/22/23 Unknown buspirone 5 mg tablet 5 mg PO UD 08/22/23 08/22/23 Unknown glipizide 10 mg tablet 10 mg PO AM[facility] 08/22/23 08/22/23 Unknown hydrocodone 5 mg-acetaminophen 325 1 tab PO UD PRN Pain 08/22/23 08/22/23 Unknown mg tablet hydroxyzine HCl 25 mg tablet 25 mg PO UD 08/22/23 08/22/23 Unknown lactulose 10 gram/15 mL oral 15 ml PO BID PRN severe 08/22/23 08/22/23 Unknown solution constipation potassium chloride 10 mEq 20 meq PO BID 08/22/23 08/22/23 Unknown tablet,extended release(part/cryst) terazosin 1 mg capsule 1 mg PO HS 08/22/23 08/22/23 Unknown vitamin B complex-vitamin C-folic 1 tab PO DAILY 08/22/23 08/22/23 Unknown acid 0.8 mg tablet (Jessie-Joycelyn) Active Medications Generic Name Dose Route Start Last Admin Trade Name Freq PRN Reason Stop Dose Admin Apixaban 2.5 mg 08/22/23 21:00 08/24/23 09:37 Apixaban 2.5 Mg Tab PO 09/21/23 20:59 2.5 mg BID LILI Administration Hydromorphone HCl 0.25 mg 08/23/23 12:56 08/24/23 05:04 Hydromorphone Inj 0.5 Mg/0.5 Ml Syr IV 09/06/23 12:55 0.25 mg Q6H PRN Administration Severe Pain (Scale 7, 8, 9,10) Lorazepam 0.5 mg/ Syringe 0.5 mls @ 2 mls/min 08/22/23 21:35 08/24/23 09:31 IV 09/21/23 21:34 2 mls/min Q4H PRN Administration Anxiety/Agitation Levothyroxine Sodium 150 mcg 08/23/23 06:30 08/24/23 06:00 Levothyroxine Sodium 150 Mcg Tablet PO 09/22/23 06:29 Not Given DAILYBB LILI Metoprolol Tartrate 2.5 mg 08/23/23 16:00 08/24/23 09:36 Metoprolol Tartrate 1 Mg/Ml Vial IV 09/22/23 15:59 2.5 mg Q4 LILI Administration Olanzapine 2.5 mg 08/23/23 17:11 08/24/23 10:24 Olanzapine 10 Mg/2.1 Ml Sdv IM 09/22/23 17:10 2.5 mg Q8H PRN Administration severe agitation
--- NOTE | 2023-08-24 13:36 | Electrocardiogram Report ---
Test Reason : Blood Pressure : / mmHG Vent. Rate : 086 BPM Atrial Rate : 078 BPM P-R Int : 000 ms QRS Dur : 136 ms QT Int : 416 ms P-R-T Axes : 000 023 123 degrees QTc Int : 497 ms Atrial fibrillation with premature ventricular or aberrantly conducted complexes Left bundle branch block Abnormal ECG When compared with ECG of 22-AUG-2023 14:19, No significant change was found Confirmed by Honorio Benedict ([id number]) on 08/24/2023 1:35:41 PM Referred By: Pramod Damian Confirmed By:Aristeo Benedict
[2023-08-24] MEDS: POTASSIUM CHLORIDE CRTAB 20 MEQ TABCR PO SCH (13:59)
[2023-08-24] MEDS: FUROSEMIDE 40 MG/4 ML VIAL IV SCH (17:22)
[2023-08-24 17:50] LABS: BUN Creatinine Ratio 9.4 (10-20); Calcium 8.9 mg/dl (8.6-10.3); Creatinine Clr Calc Pharmacy 9.3 ml/min; Est GFR (African American) 8.5 ml/min; Est GFR (Non-African American) 7.3 ml/min; Potassium 3.6 mmol/L (3.5-5.1)
[2023-08-24] MEDS: OLANZapine ZYDIS 5 MG ORALLY DIS. TAB PO PRN (18:25)
[2023-08-24] MEDS: POTASSIUM CHLORIDE 20 MEQ/15 ML UDC PO SCH (20:42)
[2023-08-25] MEDS: HYDROmorphone INJ 0.5 MG/0.5 ML SYR IV STA (02:55)
[2023-08-25 06:33] LABS: BUN Creatinine Ratio 9.8 (10-20); Creatinine Clr Calc Pharmacy 9.2 ml/min; Est GFR (African American) 8.3 ml/min; Est GFR (Non-African American) 7.2 ml/min; Magnesium 2.1 mg/dl (1.7-2.4); Phosphorus 7.1 mg/dl (2.5-4.9)
[2023-08-25 06:36] LABS: Hematocrit (blood only) 36.5 % (42.0-52.0); Hemoglobin 12.5 g/dl (14.0-18.0); Mean Corpuscular Hgb Conc 34.2 g/dL (32.0-36.0); Mean Corpuscular Volume 93.4 fL (80.0-100.0); Mean Platelet Volume 9.6 fL (9.4-12.4); Platelet Count 278 K/uL (130-400); RDW Coefficient of Variation 14.3 % (11.5-14.5); RDW Standard Deviation 47.7 fL (36.4-46.3); Red Blood Count 3.91 M/uL (4.70-6.10); White Blood Count 11.93 K/ul (4.8-10.8)
--- NOTE | 2023-08-25 06:38 | Electroencephalogram ---
EEG Procedure Note Date of Service August 24, 2023 Start / End Times Start Time: 12:15 End Time: 12:[address] Yina Aguilar History A 83 year old male wiht abnormal movements. EEG performed for evaluation of epileptiform activity. Home Medication List Medication Instructions Recorded Confirmed Type allopurinol 100 mg tablet 100 mg PO QAM 02/25/18 08/22/23 History levothyroxine 150 mcg tablet 150 mcg PO DAILYBB 08/12/20 08/22/23 History docusate sodium 100 mg tablet 100 mg PO AMHS 08/29/22 08/22/23 History torsemide 100 mg tablet 100 mg PO QAM 08/29/22 08/22/23 History albuterol sulfate 90 mcg/actuation 2 puff inhalation Q4 PRN Wheezing 08/22/23 08/22/23 History aerosol inhaler apixaban 2.5 mg tablet (Eliquis) 2.5 mg PO AMHS 08/22/23 08/22/23 History baclofen 5 mg tablet 5 mg PO UD 08/22/23 08/22/23 History buspirone 5 mg tablet 5 mg PO UD 08/22/23 08/22/23 History glipizide 10 mg tablet 10 mg PO AMHS 08/22/23 08/22/23 History hydrocodone 5 mg-acetaminophen 325 1 tab PO UD PRN Pain 08/22/23 08/22/23 History mg tablet hydroxyzine HCl 25 mg tablet 25 mg PO UD 08/22/23 08/22/23 History lactulose 10 gram/15 mL oral 15 ml PO BID PRN severe 08/22/23 08/22/23 History solution constipation potassium chloride 10 mEq 20 meq PO BID 08/22/23 08/22/23 History tablet,extended release(part/cryst) terazosin 1 mg capsule 1 mg PO HS 08/22/23 08/22/23 History vitamin B complex-vitamin C-folic 1 tab PO DAILY 08/22/23 08/22/23 History acid 0.8 mg tablet (Jessie-Joycelyn) Inpatient Medication List Apixaban (Apixaban 2.5 Mg Tab) 2.5 mg PO BID LILI Stop: 09/21/23 20:59 Last Admin: 08/24/23 20:42 Dose: 2.5 mg Documented By: Admin: 08/24/23 09:37 Dose: 2.5 mg Documented By: Admin: 08/23/23 20:10 Dose: Not Given Documented By: Admin: 08/23/23 10:12 Dose: Not Given Documented By: Admin: 08/22/23 21:03 Dose: 2.5 mg Documented By: RASHMI Furosemide (Furosemide 40 Mg/4 Ml Vial) 100 mg IV BID17 LILI Stop: 09/23/23 16:59 Last Admin: 08/24/23 17:22 Dose: 100 mg Documented By: GREYSON Hydromorphone HCl (Hydromorphone Inj 0.5 Mg/0.5 Ml Syr) 0.25 mg IV Q6H PRN PRN Reason: Severe Pain (Scale 7, 8, 9,10) Stop: 09/06/23 12:55 Last Admin: 08/25/23 02:04 Dose: 0.25 mg Documented By: Admin: 08/24/23 18:26 Dose: 0.25 mg Documented By: Admin: 08/24/23 12:46 Dose: 0.25 mg Documented By: Admin: 08/24/23 05:04 Dose: 0.25 mg Documented By: Admin: 08/23/23 22:33 Dose: 0.25 mg Documented By: Admin: 08/23/23 14:01 Dose: 0.25 mg Documented By: SADI Lorazepam 0.5 mg/ Syringe 0.5 mls @ 2 mls/min IV Q4H PRN PRN Reason: Anxiety/Agitation Stop: 09/21/23 21:34 Last Admin: 08/25/23 02:27 Dose: 2 mls/min Documented By: Admin: 08/24/23 18:26 Dose: 2 mls/min Documented By: Admin: 08/24/23 14:31 Dose: 2 mls/min Documented By: Admin: 08/24/23 09:31 Dose: 2 mls/min Documented By: Admin: 08/24/23 04:08 Dose: 2 mls/min Documented By: Admin: 08/23/23 22:53 Dose: 2 mls/min Documented By: Admin: 08/23/23 17:09 Dose: 2 mls/min Documented By: Admin: 08/23/23 03:32 Dose: 2 mls/min Documented By: RASHMI Levothyroxine Sodium (Levothyroxine Sodium 150 Mcg Tablet) 150 mcg PO DAILYBB LILI Stop: 09/22/23 06:29 Last Admin: 08/25/23 05:32 Dose: 150 mcg Documented By: Admin: 08/24/23 06:00 Dose: Not Given Documented By: Admin: 08/23/23 06:02 Dose: 150 mcg Documented By: RASHMI Metoprolol Tartrate (Metoprolol Tartrate 1 Mg/Ml Vial) 2.5 mg IV Q4 LILI Stop: 09/22/23 15:59 Last Admin: 08/25/23 04:37 Dose: 2.5 mg Documented By: Admin: 08/25/23 01:00 Dose: 2.5 mg Documented By: Admin: 08/24/23 20:43 Dose: 2.5 mg Documented By: Admin: 08/24/23 17:18 Dose: 2.5 mg Documented By: Admin: 08/24/23 12:58 Dose: 2.5 mg Documented By: Admin: 08/24/23 09:36 Dose: 2.5 mg Documented By: Admin: 08/24/23 04:02 Dose: 2.5 mg Documented By: Admin: 08/24/23 00:13 Dose: 2.5 mg Documented By: Admin: 08/23/23 20:27 Dose: 2.5 mg Documented By: Admin: 08/23/23 17:20 Dose: 2.5 mg Documented By: EP Olanzapine (Olanzapine Zydis 5 Mg Orally Dis. Tab) 5 mg PO BID PRN PRN Reason: Agitation Stop: 09/23/23 20:59 Last Admin: 08/24/23 18:25 Dose: 5 mg Documented By: GREYSON Potassium Chloride (Potassium Chloride 20 Meq/15 Ml Udc) 20 meq PO BID LILI Stop: 09/23/23 20:59 Last Admin: 08/24/23 20:42 Dose: 20 meq Documented By: XAVIER Discontinued Medications Dextrose (Dextrose 50% 50 Ml Syringe) 25 ml IV NOW STA Stop: 08/24/23 06:12 Last Admin: 08/24/23 06:21 Dose: 25 ml Documented By: XAVIER Furosemide (Furosemide 40 Mg/4 Ml Vial) 100 mg IV DAILY LILI Stop: 09/22/23 12:44 Last Admin: 08/24/23 09:37 Dose: 100 mg Documented By: Admin: 08/23/23 12:59 Dose: 100 mg Documented By: EP Hydromorphone HCl (Hydromorphone Inj 0.5 Mg/0.5 Ml Syr) 0.5 mg IV NOW STA Stop: 08/25/23 02:46 Last Admin: 08/25/23 02:55 Dose: 0.5 mg Documented By: XAVIER Sodium Chloride (Nss) 500 mls @ 999 mls/hr IV .Q31M ONE Stop: 08/22/23 12:50 Last Infusion: 08/22/23 14:27 Dose: Infused Documented By: Admin: 08/22/23 12:29 Dose: 999 mls/hr Documented By: LACEY Lorazepam 0.5 mg/ Syringe 0.5 mls @ 2 mls/min IV NOW STA Stop: 08/22/23 21:26 Last Admin: 08/22/23 21:32 Dose: 2 mls/min Documented By: RASHMI Lorazepam 0.25 mg/ Syringe 0.25 mls @ 2 mls/min IV NOW STA Stop: 08/23/23 04:15 Last Admin: 08/23/23 04:35 Dose: 2 mls/min Documented By: RASHMI Acetaminophen (Ofirmev) 1,000 mg in 100 mls @ 400 mls/hr IV NOW STA Stop: 08/23/23 12:48 Last Infusion: 08/23/23 15:07 Dose: Infused Documented By: Admin: 08/23/23 12:56 Dose: 400 mls/hr Documented By: SADI Potassium Chloride (K Zaid / Wtr) 10 meq in 100 mls @ 100 mls/hr IV Q1H LILI Stop: 08/24/23 13:44 Last Infusion: 08/24/23 14:32 Dose: Infused Documented By: Admin: 08/24/23 13:59 Dose: 100 mls/hr Documented By: Infusion: 08/24/23 13:00 Dose: Infused Documented By: MRJohn Admin: 08/24/23 12:00 Dose: 100 mls/hr Documented By: GREYSON Lorazepam (Lorazepam 1 Mg/1 Ml Syr Ed Inj Use) 0.5 mg IV ONE STA Stop: 08/22/23 12:21 Last Admin: 08/22/23 12:28 Dose: 0.5 mg Documented By: TNK Lorazepam (Lorazepam 1 Mg/1 Ml Syr Ed Inj Use) Confirm Administered Dose 1 mg .ROUTE .STK-MED ONE Stop: 08/22/23 17:33 Last Admin: 08/22/23 17:36 Dose: Not Given Documented By: TNK Lorazepam (Lorazepam 1 Mg/1 Ml Syr Ed Inj Use) 0.5 mg IV ONE STA Stop: 08/22/23 17:35 Last Admin: 08/22/23 17:36 Dose: 0.5 mg Documented By: TNK Metoprolol Tartrate (Metoprolol Tartrate 1 Mg/Ml Vial) 2.5 mg IV NOW STA Stop: 08/22/23 21:43 Last Admin: 08/22/23 22:15 Dose: Not Given Documented By: RASHMI Metoprolol Tartrate (Metoprolol Tartrate 1 Mg/Ml Vial) Confirm Administered Dose 5 mg IV .STK-MED ONE Stop: 08/22/23 21:43 Last Increment: 08/24/23 09:31 Dose: 2.5 mg Documented By: GREYSON Increment: 08/22/23 21:45 Dose: 2.5 mg Documented By: KELLY Metoprolol Tartrate (Metoprolol Tartrate 1 Mg/Ml Vial) 2.5 mg IV Q6 LILI Stop: 09/22/23 11:59 Last Admin: 08/23/23 12:25 Dose: 2.5 mg Documented By: EP Metoprolol Tartrate (Metoprolol Tartrate 1 Mg/Ml Vial) 2.5 mg IV NOW STA Stop: 08/23/23 08:04 Last Admin: 08/23/23 09:08 Dose: 2.5 mg Documented By: EP Olanzapine (Olanzapine 10 Mg/2.1 Ml Sdv) 2.5 mg IM NOW STA Stop: 08/23/23 06:59 Last Admin: 08/23/23 07:11 Dose: 2.5 mg Documented By: EP Olanzapine (Olanzapine 10 Mg/2.1 Ml Sdv) 2.5 mg IM Q8H PRN PRN Reason: severe agitation Stop: 09/22/23 17:10 Last Admin: 08/24/23 10:24 Dose: 2.5 mg Documented By: MRT Potassium Chloride (Potassium Chloride Crtab 20 Meq Tabcr) 20 meq PO BID LILI Stop: 09/23/23 10:44 Last Admin: 08/24/23 13:59 Dose: Not Given Documented By: MRT Description This is a 21 electrode EEG with a single channel dedicated to limited EKG. The electrodes were placed in accordance with the International 10-20 system. REPORT: At the onset of the EEG the patient is awake. The background is disorganized with loss of the normal anterior to posterior gradient. The background is symmetric and consist of an admixture of theta/delta activity wiht superimposed myogenic or muscle artifact. There are frequent broad based frontal predominant sharp waves with triphasic morphology. No stage II sleep transients are seen. Photic does not induce any additional abnormalities. Interpretation IMPRESSION: This is an abnormal routine EEG due to 1. Generalized background slowing suggestive of non specific encephalopathy, 2. Frequent triphasic waves which are non specific although often seen in metabolic encephalopathies (ie hepatic or renal encephalopathies).
[2023-08-25] MEDS: FUROSEMIDE 10 MG/ML 10 ML VIAL IV SCH (09:23)
[2023-08-25] MEDS: ACETAMINOPHEN 325 MG TAB PO PRN (09:28)
--- NOTE | 2023-08-25 10:00 | Communication Note ---
Date of Service: August 25, 2023 Spoke with nursing-- patient much more alert, but agitated in pain. HR are becoming more elevated in the 100-120s. Asymptomatic with AFIB. Now taking pills without difficulty. 1. Stop IV Lopressor. 2. Transition to oral metoprolol succinate [address] ANA [facility] cardiology
--- NOTE | 2023-08-25 11:10 | Hospitalist Progress Note ---
Date of Service August 25, 2023 Assessment & Plan (1) Altered mental status: Plan: Mr. 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 Per previous provider with addendum: At baseline, patient is independent, use walker and without deficits of mental status is baseline. Patient remained acutely confused and agitated. Patient with history of "muscle spasms" and previously on flexeril. Daughter states that he also used heat and massage to help. Plan for delirium precautions, encourage Eliquis dosing, rate control with IV until able to take po, and attempt pain management without compromising mental status. Patient now with improvement in mentation--but with strange movements, similar to dyskinesia. Question of sequelae of baclofen toxicity, or other process. Unable to hold still for MRI, will order EEG and Neurology consult. Anticipate improvement with continued PD. Acute metabolic encephalopathy - likely secondary to hydrocodone and baclofen in the setting of ESRD -10mg baclofen 5 doses in 12 hours - On gabapentin at home 100mg BID, hold - in the ED somewhat agitated and tremulous and received IV ativan -> now pt quite drowsy -Received ativan IV multiple times, now ordered IM 2.5mg zyprexa / ongoing agitation Infectious work up: UA negative, blood cultures NGTD Delirium precautions cont. to closely monitor on Tele. nephrology contacted to assist w/ PD needs 08/24- pt with improved mentation, taking meds. EEG for abnormal movements, doesn't appear consistent with seizure like activity, but shaheen to dyskinesia/chorea like motions; patient's increased alertness and continued motions will limit ability for MRI -Neurology consulted, appreciate recs ESRD on PD Nephrology on consult -PD started IV lasix 100mg now, plan for daily until able to take po Appreciate nephrology recs Acute pain, reportedly muscle spasms History Nausea with RUQ noted at OP visit on 08/09 with pending RUQ US ordered; similar concerns in 2022 Prior US with sludge and cholelithiasis, pancreas with IPOMN 2022 Prescribed hydroxyzine at that time Was taking Flexeril with relief previously -IV tylenol and heat compress on right back Patient has long standing history of pain, and took to much pain medication. Pain Management consulted, appreciate recs -will re-assess once mental status better -contacted Enoch Tinajero on 08/24 for possible reassessment, given pt's complaints of left shoulder pain, back pain and improved mental status. Persistent Atrial fibrillation with RVR received 1 dose IV metoprolol Was on IV 2.5 q6 h metoprolol Resumed PO on 08/24, metoprolol 12.5mg daily home regimen Continue Eliquis, Cardiology consult for eval Elevated Troponin In setting of ESRD and A fib RVR, no chest pain or concern for active ACS Monitor on Tele Chronic baseline elevation Peak 120, downtrending with improvement of rates Chronic diastolic CHF (congestive heart failure) Chronic LBBB Appears euvolemic, continue torsemide when able to take PO IV forsemide 100mg daily COPD albuterol prn DM type 2 (diabetes mellitus, type 2) with neuropathy Hgb A1c 7.4 08/2022, repeat A1C Hold oral agents and utilize NovoLog per protocol while hospitalized Hold gabapentin as above Chronic back pain, lumbar disc herniation with radiculopathy Flexeril 5mg TID ordered in OP records previously pain mgmt consult On chronic opidoids, will order IV dilaudid until po at 0.25 to help stave off withdrawal, blunt pain Pain Management consulted, appreciate recs -will re-assess once mental status better -contacted Enoch Tinajero on 08/24 for possible reassessment, given pt's complaints of left shoulder pain, back pain and improved mental status. Chronic Hyponatremia Na 134, chronic, at baseline Volume mgmt via PD Chronic ANGY (iron deficiency anemia) Baseline ~9-10 Stable Gout Allopurinol 100mg daily Hypothyroidism Continue levothyroxine Depression Severe anxiety 5mg BID Buspar, Hydroxyzine at home BPH Home terazosin, resume when able DVT Px:Eliquis Admission and Anticipated Discharge Date Admission Date: August 22, 2023 Subjective Pt was seen in the AM. More alert. Noting pain in left arm and back. AAOx1. Review of Systems Review of Systems: All systems reviewed & are unremarkable except as noted in Subjective Physical Exam Physical Exam: General: Alert, orientedx1. No acute distress Psych: Appropriate mood and affect Neuro:could not lift left arm HEENT: NC/AT CV: RRR Resp: Breath sounds clear bilaterally, no increased effort of breathing. Abdomen:Soft, nontender Extremities: No edema in lower extremities bilaterally. Results & Data Results & Data Vital Signs (Past 12 Hours) Vital Signs Temp Pulse Pulse Resp BP BP Pulse Ox 08/25/23 11:01 37.4 C 116 H 17 142/77 H 97 08/25/23 08:00 113 H 130/95 08/25/23 07:51 08/25/23 07:45 37.1 C 123 H 21 132/93 97 08/25/23 05:27 107 H 159/98 H 08/25/23 04:37 135 H 165/103 H 08/25/23 04:37 135 H 165/102 H 08/25/23 02:42 36.8 C 110 H 18 163/96 H 96 08/25/23 01:15 120 H 158/96 H 08/25/23 01:00 111 H 163/90 H 08/25/23 00:00 36.5 C 111 H 20 163/90 H 93 O2 Del Method O2 Flow Rate 08/25/23 11:01 Nasal Cannula 2 08/25/23 08:00 08/25/23 07:51 Nasal Cannula 2 08/25/23 07:45 Nasal Cannula 2 08/25/23 05:27 08/25/23 04:37 08/25/23 04:37 08/25/23 02:42 Nasal Cannula 3 08/25/23 01:15 08/25/23 01:00 08/25/23 00:00 Nasal Cannula 3
[2023-08-25] MEDS: DOCUSATE SODIUM 100 MG CAP PO SCH (11:11)
[2023-08-25] MEDS: METOPROLOL SUCC 25MG EXT REL TAB PO SCH (11:11)
[2023-08-25] MEDS: POLYETHYLENE (MIRALAX) 17 GM PACK PO PRN (11:13)
--- NOTE | 2023-08-25 11:24 | Dialysis Progress Note ---
Date of Service August 25, 2023 Assessment & Plan Admission and Anticipated Discharge Date Admission Date: August 22, 2023 Subjective Assessment & Plan (1) ESRD (end stage renal disease): Fortunately no e/o fluid overload or major electrolyte problem. for today will do half at 1.5% and half at 2.5% for a total of 4 exchanges. Given his issue with severe Anxiety/panic will do him through cycler only during the day time. We do not have enough nursing coverage 24 hrs to fully answer his issues all night. lasix to 100 bid. he normally gets kcl at home so do 20 bid with iv lasix. (2) Altered mental status: he had too many Baclofen. this muscle relaxant is contraindicated in Dialysis patient and should not be used ever. hemodialysis is very good in clearing it but not as much data with PD. But mental status almost normal today so we are out of danger from baclofen now S--patient is awake and alert today and in pain and gets agitated with that. reviewed PD flowsheet. About a liter removed. Physical Exam Constitutional: Unresponsive after meds given Eyes: PERRL, conjunctivae normal, anicteric sclerae ENMT: external ear and nose normal, oropharynx normal Neck: normal visual inspection Respiratory: normal respiratory effort, lungs clear to auscultation Cardiovascular: irregular. Soft systolic Murmur. No edema Chest (Breasts): Chest: normal inspection of chest Gastrointestinal (Abdomen): normal bowel sounds, soft, nontender, PD site is normal. Musculoskeletal: Skin: no rashes, warm and dry Neurologic: drowsy but arousable, speech slow but fluent, moves extremities Lymphatic: No LE edema Results & Data Vital Signs (Past 12 Hours) Vital Signs Temp Pulse Pulse Resp BP BP Pulse Ox 08/25/23 11:01 37.4 C 116 H 17 142/77 H 97 08/25/23 08:00 113 H 130/95 08/25/23 07:51 08/25/23 07:45 37.1 C 123 H 21 132/93 97 08/25/23 05:27 107 H 159/98 H 08/25/23 04:37 135 H 165/103 H 08/25/23 04:37 135 H 165/102 H 08/25/23 02:42 36.8 C 110 H 18 163/96 H 96 08/25/23 01:15 120 H 158/96 H 08/25/23 01:00 111 H 163/90 H 08/25/23 00:00 36.5 C 111 H 20 163/90 H 93 O2 Del Method O2 Flow Rate 08/25/23 11:01 Nasal Cannula 2 08/25/23 08:00 08/25/23 07:51 Nasal Cannula 2 08/25/23 07:45 Nasal Cannula 2 08/25/23 05:27 08/25/23 04:37 08/25/23 04:37 08/25/23 02:42 Nasal Cannula 3 08/25/23 01:15 08/25/23 01:00 08/25/23 00:00 Nasal Cannula 3
[2023-08-26 06:42] LABS: Hematocrit (blood only) 32.6 % (42.0-52.0); Hemoglobin 10.8 g/dl (14.0-18.0); Mean Corpuscular Hemoglobin 31.9 pg (25.0-34.0); Mean Corpuscular Hgb Conc 33.1 g/dL (32.0-36.0); Mean Corpuscular Volume 96.2 fL (80.0-100.0); Mean Platelet Volume 9.5 fL (9.4-12.4); Platelet Count 236 K/uL (130-400); RDW Coefficient of Variation 14.1 % (11.5-14.5); RDW Standard Deviation 48.5 fL (36.4-46.3); Red Blood Count 3.39 M/uL (4.70-6.10)
[2023-08-26 06:57] LABS: Albumin Level 3.1 gm/dl (3.4-5.0); BUN Creatinine Ratio 9.8 (10-20); Bilirubin,Total 0.9 mg/dl (0.2-1.0); Calcium 8.8 mg/dl (8.6-10.3); Creatinine Clr Calc Pharmacy 9.5 ml/min; Est GFR (African American) 8.7 ml/min; Est GFR (Non-African American) 7.5 ml/min; Globulin 3.1 gm/dl (2.5-4.0); Magnesium 1.9 mg/dl (1.7-2.4); Potassium 3.5 mmol/L (3.5-5.1); Total Protein 6.2 gm/dl (6.0-8.3)
--- NOTE | 2023-08-26 09:48 | Pain Management Progress Note ---
Date of Service August 26, 2023 Assessment & Plan (1) Baclofen overdose: Encounter type: initial encounter Injury intent: undetermined intent Qualified Code(s): T42.8X4A - Poisoning by antiparkinsonism drugs and other central muscle-tone depressants, undetermined, initial encounter (2) Anticholinergic syndrome: Encounter type: initial encounter Injury intent: undetermined intent Qualified Code(s): T44.3X4A - Poisoning by other parasympatholytics [anticholinergics and antimuscarinics] and spasmolytics, undetermined, initial encounter (3) Foot drop, bilateral: (4) Altered mental status: (5) History of fusion of lumbar spine: Plan 1. Will plan to give the patient some more time to return to baseline to have a better report of region of pain. Treatment plan will be pending his report when he seems less confused. 2. Do not recommend initiation of a muscle relaxer at this time. 3. Again, no neuraxial procedural interventions are indicated due to the patient being on peritoneal dialysis with ESRD. * Could potentially consider trigger point injections in the future. 4. Will follow up to discuss pain and spasms. Please call with any questions. Admission and Anticipated Discharge Date Admission Date: August 22, 2023 Subjective Patient does not seem to be more awake and alert today, however, I still feel that he is needing some time to fully come around and declare himself as far as location and quality of pain. He does not speak up on his own as to areas or type of pain that he is having. He does describe some pain to his left shoulder and right-sided lower back, but only with prompting. The dyskinesia type movements seen about 2 days ago seem to have subsided. Case discussed with Dr. Tiffany Arroyo. Pain Assessment Pain Assessment Full Body Front + Back: 2 1. 2. Physical Exam 2 Physical Exam: GENERAL:Patient still mildly confused, but does respond more appropriately to questions today. HEAD: Normocephalic; atraumatic. NECK: Trachea is midline. No TTP; no cervical lymphadenopathy. EXTREMITIES: Distal pulses intact bilaterally. Left hand/digits and forearm appear to be swollen compared to the right side. + TTP left shoulder and trapezius. Unable, or does not attempt, to lift his left arm more than about 5 to 10 degrees of forward flexion. Difficulty with attempt at crossing the index and middle fingers on the left. Left hand/digit abduction is difficult/weak. BACK: + TTP right quadratus lumborum region. No midline or facet tenderness. NEURO: CN II-XII grossly intact with no focal deficits noted. LOWER EXTREMITIES: R Hip flexion 4+/5; knee extension 4+/5; knee flexion 4+/5; ankle dorsiflexion unable to do (known foot drop); ankle plantar flexion 4-/5; EHL unable to do (known foot drop) L Hip flexion 4+/5; knee extension 4+/5; knee flexion 4+/5; ankle dorsiflexion unable to do (known foot drop); ankle plantar flexion 4-/5; EHL unable to do (known foot drop) Upper extremity resisted strength testing: R shoulder abduction - 5/5 L shoulder abduction - 2-/5
--- NOTE | 2023-08-26 11:08 | Dialysis Progress Note ---
Date of Service August 26, 2023 Assessment & Plan Admission and Anticipated Discharge Date Admission Date: August 22, 2023 Subjective Assessment & Plan (1) ESRD (end stage renal disease): Fortunately no e/o fluid overload or major electrolyte problem. for today will do half at 1.5% and half at 2.5% for a total of 4 exchanges. Given his issue with severe Anxiety/panic will do him through cycler only during the day time. We do not have enough nursing coverage 24 hrs to fully answer his issues all night. Stop iv lasix. Change to torsemide 100 daily he needs to have Bowel movement--otherwise high risk of PD peritonitis. will use laxatives (2) Altered mental status: he had too many Baclofen. this muscle relaxant is contraindicated in Dialysis patient and should not be used ever. hemodialysis is very good in clearing it but not as much data with PD. But mental status almost normal today so we are out of danger from baclofen now S--patient is awake and alert today and in pain and gets agitated with that. reviewed PD flowsheet. Physical Exam Constitutional: Unresponsive after meds given Eyes: PERRL, conjunctivae normal, anicteric sclerae ENMT: external ear and nose normal, oropharynx normal Neck: normal visual inspection Respiratory: normal respiratory effort, lungs clear to auscultation Cardiovascular: irregular. Soft systolic Murmur. No edema Chest (Breasts): Chest: normal inspection of chest Gastrointestinal (Abdomen): normal bowel sounds, soft, nontender, PD site is normal. Musculoskeletal: Skin: no rashes, warm and dry Neurologic: drowsy but arousable, speech slow but fluent, moves extremities Lymphatic: No LE edema Results & Data Vital Signs (Past 12 Hours) Vital Signs Temp Pulse Pulse Resp BP Pulse Ox O2 Del Method 08/26/23 07:49 36.9 C 97 H 20 119/76 08/26/23 07:49 36.9 C 97 H 20 119/76 98 Nasal Cannula 08/26/23 07:48 99 H 08/26/23 04:46 Nasal Cannula 08/26/23 02:42 95 H 08/26/23 02:17 37.3 C 98 H 19 108/75 91 Room Air O2 Flow Rate 08/26/23 07:49 08/26/23 07:49 08/26/23 07:48 08/26/23 04:46 3 08/26/23 02:42 08/26/23 02:17
--- NOTE | 2023-08-26 11:13 | Communication Note ---
Date of Service: August 26, 2023 EMR reviewed EEG revealing for triphasic waves likely indicative of metabolic encephalopathy which comports with given presentation and comorbidities Nephrology follow for PD Mentation appears to be slowly improving per documentation review Continue current therapies, continue to monitor neurological assessments Recommend stat CT brain without contrast for any acute neurological decline Recommend MRI brain with and without contrast when able to tolerate Ok from neuro perspective for VTE prophylaxis
[2023-08-26] MEDS: POLYETHYLENE (MIRALAX) 17 GM PACK PO SCH (12:05)
--- NOTE | 2023-08-26 12:51 | Hospitalist Progress Note ---
Date of Service August 26, 2023 Assessment & Plan (1) Altered mental status: Plan: Mr. 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 Per previous provider with addendum: At baseline, patient is independent, use walker and without deficits of mental status is baseline. Patient remained acutely confused and agitated. Patient with history of "muscle spasms" and previously on flexeril. Daughter states that he also used heat and massage to help. Plan for delirium precautions, encourage Eliquis dosing, rate control with IV until able to take po, and attempt pain management without compromising mental status. Patient now with improvement in mentation--but with strange movements, similar to dyskinesia. Question of sequelae of baclofen toxicity, or other process. Unable to hold still for MRI, will order EEG and Neurology consult. Anticipate improvement with continued PD. Acute metabolic encephalopathy - likely secondary to hydrocodone and baclofen in the setting of ESRD -10mg baclofen 5 doses in 12 hours - On gabapentin at home 100mg BID, hold - in the ED somewhat agitated and tremulous and received IV ativan -> now pt quite drowsy -Received ativan IV multiple times, now ordered IM 2.5mg zyprexa / ongoing agitation Infectious work up: UA negative, blood cultures NGTD Delirium precautions cont. to closely monitor on Tele. nephrology contacted to assist w/ PD needs 08/24- pt with improved mentation, taking meds. EEG for abnormal movements, doesn't appear consistent with seizure like activity, but shaheen to dyskinesia/chorea like motions; patient's increased alertness and continued motions will limit ability for MRI -Neurology consulted, appreciate recs ESRD on PD Nephrology on consult -PD started IV lasix 100mg now, plan for daily until able to take po Appreciate nephrology recs Acute pain, reportedly muscle spasms History Nausea with RUQ noted at OP visit on 08/09 with pending RUQ US ordered; similar concerns in 2022 Prior US with sludge and cholelithiasis, pancreas with IPOMN 2022 Prescribed hydroxyzine at that time Was taking Flexeril with relief previously -IV tylenol and heat compress on right back Patient has long standing history of pain, and took to much pain medication. Pain Management consulted, appreciate recs -will re-assess once mental status better -contacted Pain once more on 08/24 for possible reassessment, given pt's complaints of left shoulder pain, back pain and improved mental status. -evaluated by pain on 08/25 Persistent Atrial fibrillation with RVR received 1 dose IV metoprolol Was on IV 2.5 q6 h metoprolol Resumed PO on 08/24, metoprolol 12.5mg daily home regimen Continue Eliquis, Cardiology consult for eval Elevated Troponin In setting of ESRD and A fib RVR, no chest pain or concern for active ACS Monitor on Tele Chronic baseline elevation Peak 120, downtrending with improvement of rates Chronic diastolic CHF (congestive heart failure) Chronic LBBB Appears euvolemic, continue torsemide when able to take PO IV forsemide 100mg daily COPD albuterol prn DM type 2 (diabetes mellitus, type 2) with neuropathy Hgb A1c 7.4 08/2022, repeat A1C Hold oral agents and utilize NovoLog per protocol while hospitalized Hold gabapentin as above Chronic back pain, lumbar disc herniation with radiculopathy Flexeril 5mg TID ordered in OP records previously pain mgmt consult On chronic opidoids, will order IV dilaudid until po at 0.25 to help stave off withdrawal, blunt pain Pain Management consulted, appreciate recs -will re-assess once mental status better -contacted Enoch Tinajero on 08/24 for possible reassessment, given pt's complaints of left shoulder pain, back pain and improved mental status. Chronic Hyponatremia Na 134, chronic, at baseline Volume mgmt via PD Chronic ANGY (iron deficiency anemia) Baseline ~9-10 Stable Gout Allopurinol 100mg daily Hypothyroidism Continue levothyroxine Depression Severe anxiety 5mg BID Buspar, Hydroxyzine at home BPH Home terazosin, resume when able DVT Px:Eliquis Admission and Anticipated Discharge Date Admission Date: August 22, 2023 Subjective improved mentation today. Still noting pain. Denied acute concerns otherwise. Review of Systems Review of Systems: All systems reviewed & are unremarkable except as noted in Subjective Physical Exam Physical Exam: General: Alert, orientedx1. No acute distress Psych: Appropriate mood and affect Neuro:could not lift left arm HEENT: NC/AT CV: RRR Resp: Breath sounds clear bilaterally, no increased effort of breathing. Abdomen:Soft, nontender Extremities: No edema in lower extremities bilaterally. Results & Data Results & Data Vital Signs (Past 12 Hours) Vital Signs Temp Pulse Pulse Resp BP Pulse Ox O2 Del Method 08/26/23 11:26 36.9 C 125 H 19 141/88 H 96 Nasal Cannula 08/26/23 08:00 Nasal Cannula 08/26/23 07:49 36.9 C 97 H 20 119/76 08/26/23 07:49 36.9 C 97 H 20 119/76 98 Nasal Cannula 08/26/23 07:48 99 H 08/26/23 04:46 Nasal Cannula 08/26/23 02:42 95 H 08/26/23 02:17 37.3 C 98 H 19 108/75 91 Room Air O2 Flow Rate 08/26/23 11:26 08/26/23 08:00 3 08/26/23 07:49 08/26/23 07:49 08/26/23 07:48 08/26/23 04:46 3 08/26/23 02:42 08/26/23 02:17
[2023-08-26] MEDS ORDERED: GLUCOSE 10 TAB/TUBE PO PRN (19:57)
[2023-08-26] MEDS ORDERED: GLUCAGON FOR INJ 1 MG VIAL SQ PRN (19:57)
[2023-08-26] MEDS ORDERED: CARBOHYDRATES FOR HYPOGLYCEMIA PO PRN (19:57)
[2023-08-26] MEDS ORDERED: GLUCOSE 40% GEL 15 GM TUBE PO PRN (19:57)
[2023-08-26] MEDS ORDERED: DEXTROSE 50% 50 ML SYRINGE IV PRN (19:57)
[2023-08-26] MEDS: INSULIN ASPART PER UNIT CHARGE SC SCH (21:06)
[2023-08-27 06:34] LABS: Hematocrit (blood only) 32.1 % (42.0-52.0); Hemoglobin 10.8 g/dl (14.0-18.0); Mean Corpuscular Hemoglobin 31.8 pg (25.0-34.0); Mean Corpuscular Hgb Conc 33.6 g/dL (32.0-36.0); Mean Corpuscular Volume 94.4 fL (80.0-100.0); Mean Platelet Volume 9.7 fL (9.4-12.4); Platelet Count 237 K/uL (130-400); RDW Coefficient of Variation 14.1 % (11.5-14.5); RDW Standard Deviation 48.4 fL (36.4-46.3); White Blood Count 8.52 K/ul (4.8-10.8)
[2023-08-27 07:13] LABS: Albumin Globulin Ratio 0.9 (0.9-2); BUN Creatinine Ratio 10.8 (10-20); Bilirubin,Total 0.7 mg/dl (0.2-1.0); Creatinine Clr Calc Pharmacy 9.8 ml/min; Est GFR (African American) 9.3 ml/min; Globulin 3.2 gm/dl (2.5-4.0); Phosphorus 6.2 mg/dl (2.5-4.9); Potassium 3.6 mmol/L (3.5-5.1); Total Protein 6.2 gm/dl (6.0-8.3)
[2023-08-27] MEDS: TORSEMIDE 100 MG TAB PO SCH (08:29)
[2023-08-27] MEDS: POTASSIUM CHLORIDE 20 MEQ/15 ML UDC PO SCH (08:34)
--- NOTE | 2023-08-27 10:16 | Nephrology Progress Note ---
Date of Service August 27, 2023 Assessment & Plan Admission and Anticipated Discharge Date Admission Date: August 22, 2023 Subjective Assessment & Plan (1) ESRD (end stage renal disease): Fortunately no e/o fluid overload or major electrolyte problem. for today will do half at 1.5% and half at 2.5% for a total of 4 exchanges. He needs to have Bowel movement--otherwise high risk of PD peritonitis. will use laxatives. for tonight will do the PD cycler at night to allow for some evaluation by PT. he c/o pain on movement and demands alot of meds. Then makes him sleepy. very difficult situation. (2) Altered mental status: he had too many Baclofen. this muscle relaxant is contraindicated in Dialysis patient and should not be used ever. hemodialysis is very good in clearing it but not as much data with PD. But mental status almost normal today so we are out of danger from baclofen now S--patient is awake and alert today and in pain and gets agitated with that. reviewed PD flowsheet. Physical Exam Constitutional: Unresponsive after meds given Eyes: PERRL, conjunctivae normal, anicteric sclerae ENMT: external ear and nose normal, oropharynx normal Neck: normal visual inspection Respiratory: normal respiratory effort, lungs clear to auscultation Cardiovascular: irregular. Soft systolic Murmur. No edema Chest (Breasts): Chest: normal inspection of chest Gastrointestinal (Abdomen): normal bowel sounds, soft, nontender, PD site is normal. Musculoskeletal: Skin: no rashes, warm and dry Neurologic: drowsy but arousable, speech slow but fluent, moves extremities Lymphatic: No LE edema Results & Data Vital Signs (Past 12 Hours) Vital Signs Temp Pulse Pulse Resp BP Pulse Ox O2 Del Method 08/27/23 09:49 94 H 08/27/23 07:29 36.8 C 94 H 17 97/58 L 96 Nasal Cannula 08/27/23 02:49 36.7 C 118 H 18 127/93 95 Nasal Cannula 08/26/23 23:37 37.5 C 105 H 18 109/76 96 Nasal Cannula 08/26/23 23:33 119 H 08/26/23 23:14 Nasal Cannula O2 Flow Rate 08/27/23 09:49 08/27/23 07:29 2 08/27/23 02:49 2 08/26/23 23:37 2 08/26/23 23:33 08/26/23 23:14 3
[2023-08-27] MEDS: LACTULOSE SYRUP 20 GM/30 ML UDC PO ONE (11:18)
--- NOTE | 2023-08-27 19:26 | Hospitalist Progress Note ---
Date of Service August 27, 2023 Assessment & Plan (1) Altered mental status: Plan: Mr. 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 Per previous provider with addendum: At baseline, patient is independent, use walker and without deficits of mental status is baseline. Patient remained acutely confused and agitated. Patient with history of "muscle spasms" and previously on flexeril. Daughter states that he also used heat and massage to help. Plan for delirium precautions, encourage Eliquis dosing, rate control with IV until able to take po, and attempt pain management without compromising mental status. Patient now with improvement in mentation--but with strange movements, similar to dyskinesia. Question of sequelae of baclofen toxicity, or other process. Unable to hold still for MRI, will order EEG and Neurology consult. Anticipate improvement with continued PD. Acute metabolic encephalopathy - likely secondary to hydrocodone and baclofen in the setting of ESRD -10mg baclofen 5 doses in 12 hours - On gabapentin at home 100mg BID, hold - in the ED somewhat agitated and tremulous and received IV ativan -> now pt quite drowsy -Received ativan IV multiple times, now ordered IM 2.5mg zyprexa 06/11 ongoing agitation Infectious work up: UA negative, blood cultures NGTD Delirium precautions cont. to closely monitor on Tele. nephrology contacted to assist w/ PD needs 08/24- pt with improved mentation, taking meds. EEG for abnormal movements, doesn't appear consistent with seizure like activity, but shaheen to dyskinesia/chorea like motions; patient's increased alertness and continued motions will limit ability for MRI -Neurology consulted, appreciate recs ESRD on PD Nephrology on consult -PD started IV lasix 100mg now, plan for daily until able to take po Appreciate nephrology recs -laxatives and enemas on 08/26 for needed bowel movement. Per nephrology, constipation in setting of peritoneal dialysis can predispose to peritonitis Acute pain, reportedly muscle spasms History Nausea with RUQ noted at OP visit on 08/09 with pending RUQ US ordered; similar concerns in 2022 Prior US with sludge and cholelithiasis, pancreas with IPOMN 2022 Prescribed hydroxyzine at that time Was taking Flexeril with relief previously -IV tylenol and heat compress on right back Patient has long standing history of pain, and took to much pain medication. Pain Management consulted, appreciate recs -will re-assess once mental status better -contacted Pain once more on 08/24 for possible reassessment, given pt's complaints of left shoulder pain, back pain and improved mental status. -evaluated by pain on 08/25 Persistent Atrial fibrillation with RVR received 1 dose IV metoprolol Was on IV 2.5 q6 h metoprolol Resumed PO on 08/24, metoprolol 12.5mg daily home regimen Continue Eliquis, Cardiology consult for eval Elevated Troponin In setting of ESRD and A fib RVR, no chest pain or concern for active ACS Monitor on Tele Chronic baseline elevation Peak 120, downtrending with improvement of rates Chronic diastolic CHF (congestive heart failure) Chronic LBBB Appears euvolemic, continue torsemide when able to take PO IV forsemide 100mg daily COPD albuterol prn DM type 2 (diabetes mellitus, type 2) with neuropathy Hgb A1c 7.4 08/2022, repeat A1C Hold oral agents and utilize NovoLog per protocol while hospitalized Hold gabapentin as above Chronic back pain, lumbar disc herniation with radiculopathy Flexeril 5mg TID ordered in OP records previously pain mgmt consult On chronic opidoids, will order IV dilaudid until po at 0.25 to help stave off withdrawal, blunt pain Pain Management consulted, appreciate recs -will re-assess once mental status better -contacted Enoch Tinajero on 08/24 for possible reassessment, given pt's complaints of left shoulder pain, back pain and improved mental status. Chronic Hyponatremia Na 134, chronic, at baseline Volume mgmt via PD Chronic ANGY (iron deficiency anemia) Baseline ~9-10 Stable Gout Allopurinol 100mg daily Hypothyroidism Continue levothyroxine Depression Severe anxiety 5mg BID Buspar, Hydroxyzine at home BPH Home terazosin, resume when able DVT Px:Eliquis Admission and Anticipated Discharge Date Admission Date: August 22, 2023 Subjective Pt was sitting in chair at bedside. Comfortable. Per Nephrology, needs to have a bowel movement. very important in setting of peritoneal dialysis to prevent peritonitis. Review of Systems Review of Systems: All systems reviewed & are unremarkable except as noted in Subjective Physical Exam Physical Exam: General: Alert, orientedx1. No acute distress Psych: Appropriate mood and affect Neuro:could not lift left arm HEENT: NC/AT CV: RRR Resp: Breath sounds clear bilaterally, no increased effort of breathing. Abdomen:Soft, nontender Extremities: No edema in lower extremities bilaterally. Results & Data Results & Data Vital Signs (Past 12 Hours) Vital Signs Temp Pulse Pulse Resp BP Pulse Ox O2 Del Method 08/27/23 11:36 36.7 C 55 L 17 120/83 98 Nasal Cannula 08/27/23 09:49 94 H 08/27/23 08:30 Nasal Cannula 08/27/23 07:29 36.8 C 94 H 17 97/58 L 96 Nasal Cannula O2 Flow Rate 08/27/23 11:36 2 08/27/23 09:49 08/27/23 08:30 2 08/27/23 07:29 2
[2023-08-27] MEDS: LACTULOSE 200GM/700ML WTR ENEMA PR SCH (22:07)
[2023-08-28] MEDS: FAMOTIDINE 10 MG TABLET PO ONE (06:04)
[2023-08-28 06:27] LABS: Hematocrit (blood only) 33.7 % (42.0-52.0); Hemoglobin 11.2 g/dl (14.0-18.0); Mean Corpuscular Hemoglobin 31.6 pg (25.0-34.0); Mean Corpuscular Hgb Conc 33.2 g/dL (32.0-36.0); Mean Corpuscular Volume 95.2 fL (80.0-100.0); Mean Platelet Volume 9.8 fL (9.4-12.4); Platelet Count 274 K/uL (130-400); RDW Coefficient of Variation 13.7 % (11.5-14.5); RDW Standard Deviation 47.8 fL (36.4-46.3); Red Blood Count 3.54 M/uL (4.70-6.10)
[2023-08-28 07:28] LABS: Albumin Level 3.2 gm/dl (3.4-5.0); Bilirubin,Total 0.8 mg/dl (0.2-1.0); Magnesium 1.9 mg/dl (1.7-2.4); Potassium 3.7 mmol/L (3.5-5.1)
[2023-08-28 07:40] LABS: Creatinine Clr Calc Pharmacy 10.2 ml/min; Est GFR (African American) 9.8 ml/min; Est GFR (Non-African American) 8.4 ml/min; Globulin 3.2 gm/dl (2.5-4.0); Phosphorus 6.1 mg/dl (2.5-4.9); Total Protein 6.4 gm/dl (6.0-8.3)
[2023-08-28] MEDS: LACTULOSE SYRUP 20 GM/30 ML UDC PO SCH (07:55)
--- NOTE | 2023-08-28 10:35 | Dialysis Progress Note ---
Date of Service August 28, 2023 Assessment & Plan Admission and Anticipated Discharge Date Admission Date: August 22, 2023 Subjective Assessment & Plan (1) ESRD (end stage renal disease): Fortunately no e/o fluid overload or major electrolyte problem. for today will do half at 1.5% and half at 2.5% for a total of 4 exchanges. He needs to have regular Bowel movement--otherwise high risk of PD peritonitis. will use laxatives. for tonight will do the PD cycler at night he c/o pain on movement and demands a lot of meds. Then makes him sleepy for PT eval. very difficult situation with Discharge planning. (2) Altered mental status: he had too many Baclofen. this muscle relaxant is contraindicated in Dialysis patient and should not be used ever. hemodialysis is very good in clearing it but not as much data with PD. But mental status normal today so we are out of danger from baclofen now S--Seen for Peritoneal Dialysis. No issues with that. About 750 ml uf done. Still makes a lot of urine. patient is awake and alert today and in pain and gets agitated with that. reviewed PD flowsheet. finally had large BM yesterday. Physical Exam Constitutional: Unresponsive after meds given Eyes: PERRL, conjunctivae normal, anicteric sclerae ENMT: external ear and nose normal, oropharynx normal Neck: normal visual inspection Respiratory: normal respiratory effort, lungs clear to auscultation Cardiovascular: irregular. Soft systolic Murmur. No edema Chest (Breasts): Chest: normal inspection of chest Gastrointestinal (Abdomen): normal bowel sounds, soft, nontender, PD site is normal. Musculoskeletal: Skin: no rashes, warm and dry Neurologic: drowsy but arousable, speech slow but fluent, moves extremities Lymphatic: No LE edema Results & Data Vital Signs (Past 12 Hours) Vital Signs Temp Pulse Pulse Resp BP Pulse Ox O2 Del Method 08/28/23 08:09 Nasal Cannula 08/28/23 07:45 36.3 C L 101 H 19 08/28/23 07:34 36.3 C L 101 H 19 135/77 94 Nasal Cannula 08/28/23 02:58 36.4 C L 102 H 18 139/87 97 Nasal Cannula 08/27/23 23:19 100 H 08/27/23 22:57 Nasal Cannula 08/27/23 22:43 36.6 C 101 H 18 130/85 98 Nasal Cannula O2 Flow Rate 08/28/23 08:09 2 08/28/23 07:45 08/28/23 07:34 2 08/28/23 02:58 2 08/27/23 23:19 08/27/23 22:57 3 08/27/23 22:43 2
--- NOTE | 2023-08-28 13:09 | Hospitalist Progress Note ---
Date of Service August 28, 2023 Assessment & Plan (1) Altered mental status: Plan: Mr. 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 Per previous provider with addendum: At baseline, patient is independent, use walker and without deficits of mental status is baseline. Patient remained acutely confused and agitated. Patient with history of "muscle spasms" and previously on flexeril. Daughter states that he also used heat and massage to help. Plan for delirium precautions, encourage Eliquis dosing, rate control with IV until able to take po, and attempt pain management without compromising mental status. Patient now with improvement in mentation--but with strange movements, similar to dyskinesia. Question of sequelae of baclofen toxicity, or other process. Unable to hold still for MRI, will order EEG and Neurology consult. Anticipate improvement with continued PD. Acute metabolic encephalopathy - likely secondary to hydrocodone and baclofen in the setting of ESRD -10mg baclofen 5 doses in 12 hours - On gabapentin at home 100mg BID, hold - in the ED somewhat agitated and tremulous and received IV ativan -> now pt quite drowsy -Received ativan IV multiple times, now ordered IM 2.5mg zyprexa 06/11 ongoing agitation Infectious work up: UA negative, blood cultures NGTD Delirium precautions cont. to closely monitor on Tele. nephrology contacted to assist w/ PD needs 08/24- pt with improved mentation, taking meds. EEG for abnormal movements, doesn't appear consistent with seizure like activity, but shaheen to dyskinesia/chorea like motions; patient's increased alertness and continued motions will limit ability for MRI -Neurology consulted, appreciate recs ESRD on PD Nephrology on consult -PD started IV lasix 100mg now, plan for daily until able to take po Appreciate nephrology recs -laxatives and enemas on 08/26 for needed bowel movement. Per nephrology, constipation in setting of peritoneal dialysis can predispose to peritonitis -BM noted on 08.27 Acute pain, reportedly muscle spasms History Nausea with RUQ noted at OP visit on 08/09 with pending RUQ US ordered; similar concerns in 2022 Prior US with sludge and cholelithiasis, pancreas with IPOMN 2022 Prescribed hydroxyzine at that time Was taking Flexeril with relief previously -IV tylenol and heat compress on right back Patient has long standing history of pain, and took to much pain medication. Pain Management consulted, appreciate recs -will re-assess once mental status better -contacted Pain once more on 08/24 for possible reassessment, given pt's complaints of left shoulder pain, back pain and improved mental status. -evaluated by pain on 08/25 Persistent Atrial fibrillation with RVR received 1 dose IV metoprolol Was on IV 2.5 q6 h metoprolol Resumed PO on 08/24, metoprolol 12.5mg daily home regimen Continue Eliquis, Cardiology consult for eval Elevated Troponin In setting of ESRD and A fib RVR, no chest pain or concern for active ACS Monitor on Tele Chronic baseline elevation Peak 120, downtrending with improvement of rates Chronic diastolic CHF (congestive heart failure) Chronic LBBB Appears euvolemic, continue torsemide when able to take PO IV forsemide 100mg daily COPD albuterol prn DM type 2 (diabetes mellitus, type 2) with neuropathy Hgb A1c 7.4 08/2022, repeat A1C Hold oral agents and utilize NovoLog per protocol while hospitalized Hold gabapentin as above Chronic back pain, lumbar disc herniation with radiculopathy Flexeril 5mg TID ordered in OP records previously pain mgmt consult On chronic opidoids, will order IV dilaudid until po at 0.25 to help stave off withdrawal, blunt pain Pain Management consulted, appreciate recs -will re-assess once mental status better -contacted Enoch Tinajero on 08/24 for possible reassessment, given pt's complaints of left shoulder pain, back pain and improved mental status. Chronic Hyponatremia Na 134, chronic, at baseline Volume mgmt via PD Chronic ANGY (iron deficiency anemia) Baseline ~9-10 Stable Gout Allopurinol 100mg daily Hypothyroidism Continue levothyroxine Depression Severe anxiety 5mg BID Buspar, Hydroxyzine at home BPH Home terazosin, resume when able DVT Px:Eliquis Admission and Anticipated Discharge Date Admission Date: August 22, 2023 Subjective Pt was seen sitting in chair at bedside. Notes back pain still there, notes bowel movements. Review of Systems Review of Systems: All systems reviewed & are unremarkable except as noted in Subjective Physical Exam Physical Exam: General: Alert, orientedx1. No acute distress Psych: Appropriate mood and affect Neuro:could not lift left arm HEENT: NC/AT CV: RRR Resp: Breath sounds clear bilaterally, no increased effort of breathing. Abdomen:Soft, nontender Extremities: No edema in lower extremities bilaterally. Results & Data Results & Data Vital Signs (Past 12 Hours) Vital Signs Temp Pulse Resp BP Pulse Ox O2 Del Method O2 Flow Rate 08/28/23 11:06 36.9 C 95 H 21 118/79 98 Nasal Cannula 2 08/28/23 08:09 Nasal Cannula 2 08/28/23 07:45 36.3 C L 101 H 19 08/28/23 07:34 36.3 C L 101 H 19 135/77 94 Nasal Cannula 2 08/28/23 02:58 36.4 C L 102 H 18 139/87 97 Nasal Cannula 2
[2023-08-28] MEDS ORDERED: OLANZapine 10 MG/2.1 ML SDV IM PRN (22:34)
[2023-08-28] MEDS: OLANZapine 10 MG/2.1 ML SDV IM STA (23:12)
[2023-08-29 08:43] LABS: Basophils # (auto) 0.05 K/uL (0.00-0.20); Basophils % (auto) 0.7 %; Eosinophils # (auto) 0.29 K/uL (0.00-0.50); Eosinophils % (auto) 3.8 %; Hematocrit (blood only) 36.1 % (42.0-52.0); Hemoglobin 11.9 g/dl (14.0-18.0); Immature Granulocytes # (auto) 0.03 K/uL (0.01-0.20); Immature Granulocytes % (auto) 0.4 %; Lymphocytes # (auto) 0.72 K/uL (1.20-3.40); Lymphocytes % (auto) 9.4 %; Mean Corpuscular Hemoglobin 31.5 pg (25.0-34.0); Mean Corpuscular Volume 95.5 fL (80.0-100.0); Mean Platelet Volume 9.8 fL (9.4-12.4); Monocytes # (auto) 1.06 K/uL (0.11-0.59); Monocytes % (auto) 13.8 %; Neutrophils # (auto) 5.53 K/uL (1.40-6.50); Neutrophils % (auto) 71.9 %; Platelet Count 301 K/uL (130-400); RDW Coefficient of Variation 13.8 % (11.5-14.5); RDW Standard Deviation 48.1 fL (36.4-46.3); Red Blood Count 3.78 M/uL (4.70-6.10); White Blood Count 7.68 K/ul (4.8-10.8)
[2023-08-29 08:47] LABS: Albumin Globulin Ratio 0.9 (0.9-2); Albumin Level 3.4 gm/dl (3.4-5.0); BUN Creatinine Ratio 14.2 (10-20); Bilirubin,Total 0.7 mg/dl (0.2-1.0); Calcium 9.5 mg/dl (8.6-10.3); Creatinine Clr Calc Pharmacy 11.2 ml/min; Est GFR (Non-African American) 9.5 ml/min; Globulin 3.6 gm/dl (2.5-4.0); Magnesium 2.1 mg/dl (1.7-2.4); Phosphorus 5.4 mg/dl (2.5-4.9); Potassium 3.9 mmol/L (3.5-5.1)
[2023-08-29] MEDS: LIDOCAINE 5% 1 PATCH TD SCH (11:07)
--- NOTE | 2023-08-29 12:27 | Dialysis Progress Note ---
Date of Service August 29, 2023 Assessment & Plan Admission and Anticipated Discharge Date Admission Date: August 22, 2023 Subjective Assessment & Plan (1) ESRD (end stage renal disease): Fortunately no e/o fluid overload or major electrolyte problem. for today will do half at 1.5% and half at 2.5% for a total of 4 exchanges. He needs to have regular Bowel movement--otherwise high risk of PD peritonitis. will use laxatives. for tonight will do the PD cycler at night he c/o pain on movement and demands a lot of meds. Then makes him sleepy and confused also. very difficult situation with Discharge planning. effect of baclofen is long gone. At home gets manual exchanges x 4 but not possible to do that inpt because of nursing issues. for now nightly CCPD 4 exchanges half 1.5% and half 2.5% S--Seen for Peritoneal Dialysis. No issues with that. About 1075 ml uf done overnight. Still makes a lot of urine--has Condom catheter having Confusion and needing one one care. he c/o back pain. Physical Exam Constitutional: Unresponsive after meds given Eyes: PERRL, conjunctivae normal, anicteric sclerae ENMT: external ear and nose normal, oropharynx normal Neck: normal visual inspection Respiratory: normal respiratory effort, lungs clear to auscultation Cardiovascular: irregular. Soft systolic Murmur. No edema Chest (Breasts): Chest: normal inspection of chest Gastrointestinal (Abdomen): normal bowel sounds, soft, nontender, PD site is normal. Musculoskeletal: Skin: no rashes, warm and dry Neurologic: drowsy but arousable, speech slow but fluent, moves extremities Lymphatic: No LE edema Results & Data Vital Signs (Past 12 Hours) Vital Signs Temp Pulse Resp BP Pulse Ox O2 Del Method O2 Flow Rate 08/29/23 11:26 36.7 C 89 18 103/65 96 Room Air 08/29/23 08:30 36.7 C 63 18 08/29/23 08:00 Nasal Cannula 2 08/29/23 07:28 36.7 C 63 18 131/88 96 Room Air 08/29/23 03:40 36.7 C 69 18 104/70 96 Room Air
--- NOTE | 2023-08-29 13:05 | Hospitalist Progress Note ---
Date of Service August 29, 2023 Assessment & Plan (1) Altered mental status: Plan: Mr. 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 Per previous provider with addendum: At baseline, patient is independent, use walker and without deficits of mental status is baseline. Patient remained acutely confused and agitated. Patient with history of "muscle spasms" and previously on flexeril. Daughter states that he also used heat and massage to help. Plan for delirium precautions, encourage Eliquis dosing, rate control with IV until able to take po, and attempt pain management without compromising mental status. Patient now with improvement in mentation--but with strange movements, similar to dyskinesia. Question of sequelae of baclofen toxicity, or other process. Unable to hold still for MRI, will order EEG and Neurology consult. Anticipate improvement with continued PD. Acute metabolic encephalopathy - likely secondary to hydrocodone and baclofen in the setting of ESRD -10mg baclofen 5 doses in 12 hours - On gabapentin at home 100mg BID, hold - in the ED somewhat agitated and tremulous and received IV ativan -> now pt quite drowsy -Received ativan IV multiple times, now ordered IM 2.5mg zyprexa 06/11 ongoing agitation Infectious work up: UA negative, blood cultures NGTD Delirium precautions cont. to closely monitor on Tele. nephrology contacted to assist w/ PD needs 08/24- pt with improved mentation, taking meds. EEG for abnormal movements, doesn't appear consistent with seizure like activity, but shaheen to dyskinesia/chorea like motions; patient's increased alertness and continued motions will limit ability for MRI -Neurology consulted, appreciate recs ESRD on PD Nephrology on consult -PD started IV lasix 100mg now, plan for daily until able to take po Appreciate nephrology recs -peritoneal dialysis -laxatives and enemas to avoid peritonitis Acute pain, reportedly muscle spasms History Nausea with RUQ noted at OP visit on 08/09 with pending RUQ US ordered; similar concerns in 2022 Prior US with sludge and cholelithiasis, pancreas with IPOMN 2022 Prescribed hydroxyzine at that time Was taking Flexeril with relief previously -IV tylenol and heat compress on right back Patient has long standing history of pain, and took to much pain medication. Pain Management consulted, appreciate recs -will re-assess once mental status better -contacted Pain once more on 08/24 for possible reassessment, given pt's complaints of left shoulder pain, back pain and improved mental status. -evaluated by pain on 08/25 Persistent Atrial fibrillation with RVR received 1 dose IV metoprolol Was on IV 2.5 q6 h metoprolol Resumed PO on 08/24, metoprolol 12.5mg daily home regimen Continue Eliquis, Cardiology consult for eval Elevated Troponin In setting of ESRD and A fib RVR, no chest pain or concern for active ACS Monitor on Tele Chronic baseline elevation Peak 120, downtrending with improvement of rates Chronic diastolic CHF (congestive heart failure) Chronic LBBB Appears euvolemic, continue torsemide when able to take PO IV forsemide 100mg daily COPD albuterol prn DM type 2 (diabetes mellitus, type 2) with neuropathy Hgb A1c 7.4 08/2022, repeat A1C Hold oral agents and utilize NovoLog per protocol while hospitalized Hold gabapentin as above Chronic back pain, lumbar disc herniation with radiculopathy Flexeril 5mg TID ordered in OP records previously pain mgmt consult On chronic opidoids, will order IV dilaudid until po at 0.25 to help stave off withdrawal, blunt pain Pain Management consulted, appreciate recs -will re-assess once mental status better -contacted Enoch Tinajero on 08/24 for possible reassessment, given pt's complaints of left shoulder pain, back pain and improved mental status. Chronic Hyponatremia Na 134, chronic, at baseline Volume mgmt via PD Chronic ANGY (iron deficiency anemia) Baseline ~9-10 Stable Gout Allopurinol 100mg daily Hypothyroidism Continue levothyroxine Depression Severe anxiety 5mg BID Buspar, Hydroxyzine at home BPH Home terazosin, resume when able DVT Px:Eliquis Admission and Anticipated Discharge Date Admission Date: August 22, 2023 Subjective Sitting in chair. Had an eventful night. Worked with PT. Review of Systems Review of Systems: All systems reviewed & are unremarkable except as noted in Subjective Physical Exam Physical Exam: General: Alert, orientedx1. No acute distress Psych: Appropriate mood and affect Neuro:could not lift left arm HEENT: NC/AT CV: RRR Resp: Breath sounds clear bilaterally, no increased effort of breathing. Abdomen:Soft, nontender Extremities: No edema in lower extremities bilaterally. Results & Data Results & Data Vital Signs (Past 12 Hours) Vital Signs Temp Pulse Resp BP Pulse Ox O2 Del Method O2 Flow Rate 08/29/23 11:26 36.7 C 89 18 103/65 96 Room Air 08/29/23 08:30 36.7 C 63 18 08/29/23 08:00 Nasal Cannula 2 08/29/23 07:28 36.7 C 63 18 131/88 96 Room Air 08/29/23 03:40 36.7 C 69 18 104/70 96 Room Air
[2023-08-30 06:26] LABS: Basophils # (auto) 0.05 K/uL (0.00-0.20); Basophils % (auto) 0.8 %; Eosinophils # (auto) 0.27 K/uL (0.00-0.50); Eosinophils % (auto) 4.2 %; Hematocrit (blood only) 33.9 % (42.0-52.0); Hemoglobin 11.1 g/dl (14.0-18.0); Immature Granulocytes # (auto) 0.02 K/uL (0.01-0.20); Immature Granulocytes % (auto) 0.3 %; Lymphocytes # (auto) 0.72 K/uL (1.20-3.40); Lymphocytes % (auto) 11.3 %; Mean Corpuscular Hemoglobin 31.4 pg (25.0-34.0); Mean Corpuscular Hgb Conc 32.7 g/dL (32.0-36.0); Mean Corpuscular Volume 95.8 fL (80.0-100.0); Monocytes % (auto) 18.9 %; Neutrophils % (auto) 64.5 %; Platelet Count 257 K/uL (130-400); RDW Coefficient of Variation 13.6 % (11.5-14.5); RDW Standard Deviation 47.9 fL (36.4-46.3); Red Blood Count 3.54 M/uL (4.70-6.10); White Blood Count 6.36 K/ul (4.8-10.8)
[2023-08-30 07:00] LABS: Bilirubin,Total 0.6 mg/dl (0.2-1.0); Calcium 9.1 mg/dl (8.6-10.3); Magnesium 2.1 mg/dl (1.7-2.4); Potassium 3.9 mmol/L (3.5-5.1)
[2023-08-30 07:13] LABS: BUN Creatinine Ratio 15.3 (10-20); Creatinine Clr Calc Pharmacy 10.9 ml/min; Est GFR (African American) 10.6 ml/min; Est GFR (Non-African American) 9.2 ml/min; Phosphorus 6.5 mg/dl (2.5-4.9)
--- NOTE | 2023-08-30 10:06 | Neurology Progress Note ---
Date of Service August 30, 2023 Assessment & Plan (1) Altered mental status: Metabolic encephalopathy- likely secondary to medication overuse in setting of ESRD, resolved BUN/Cr improving EEG with triphasic waves c/w metabolic encephalopathy, no epileptiform features No brain imaging necessary, patient appears to be at baseline Continue Apixaban for AF Neurology will sign off Subjective Telehealth Information I performed this visit using a real-time telehealth connection between my location and the patients location ([facility]). After connecting through interactive tele-video, patient was identified by name and date of and/or wristband check.Patient (or authorized healthcare roofing sales representative) was informed that this was a telemedicine visit and it was being conducted confidentially over secure lines. My office door was closed and no one else was present in the room with me.Patient (or authorized healthcare roofing sales representative) provided consent to proceed with the visit, expressed an understanding of privacy and security of the telemedicine visit, and gave permission to have a hospital roofing sales representative in the room in order to assist with the visit and to conduct portions of the visit, as needed. I informed the patient (or authorized healthcare roofing sales representative) that I reviewed their record and presented the opportunity for them to ask any questions regarding the visit today. The patient agreed to participate. Complaining of pain right flank, feels like a cramping pain. Otherwise feels well, states he is much better, feels to be at his baseline. He recounts the sto ry of taking baclofen for relief of his pain, states he kept taking another and another because he thought it would keep helping. Review of Systems per HPI Physical Exam Neurological Exam: Mental status: AOx4, no aphasia, no dysarthria CN: PERRL, EOMI, face symmetric, tongue midline, hearing intact Motor: antigravity power present in all 4, left arm limited by shoulder injury Sensory: intact Coordination: intact Gait: deferred Reflexes: cannot be obtained via telemedicine Results & Data Vital Signs (Past 12 Hours) Vital Signs Temp Pulse Pulse Resp BP Pulse Ox O2 Del Method 08/30/23 07:36 Nasal Cannula 08/30/23 07:08 36.3 C L 104 H 18 138/85 99 Nasal Cannula 08/29/23 23:55 88 08/29/23 23:04 36.5 C 100 H 18 120/82 98 Nasal Cannula 08/29/23 22:28 Nasal Cannula O2 Flow Rate 08/30/23 07:36 2 08/30/23 07:08 08/29/23 23:55 08/29/23 23:04 2 08/29/23 22:28 2 Diagnostic Findings EEG 09/04/23 Interpretation IMPRESSION: This is an abnormal routine EEG due to 1. Generalized background slowing suggestive of non specific encephalopathy, 2. Frequent triphasic waves which are non specific although often seen in metabolic encephalopathies (ie hepatic or renal encephalopathies).
--- NOTE | 2023-08-30 16:15 | Hospitalist Progress Note ---
Date of Service August 30, 2023 Assessment & Plan (1) Altered mental status: Plan: Mr. 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 Per previous provider with addendum: At baseline, patient is independent, use walker and without deficits of mental status is baseline. Patient remained acutely confused and agitated. Patient with history of "muscle spasms" and previously on flexeril. Daughter states that he also used heat and massage to help. Plan for delirium precautions, encourage Eliquis dosing, rate control with IV until able to take po, and attempt pain management without compromising mental status. Patient now with improvement in mentation--but with strange movements, similar to dyskinesia. Question of sequelae of baclofen toxicity, or other process. Unable to hold still for MRI, will order EEG and Neurology consult. Anticipate improvement with continued PD. Acute metabolic encephalopathy - likely secondary to hydrocodone and baclofen in the setting of ESRD -10mg baclofen 5 doses in 12 hours - On gabapentin at home 100mg BID, hold - in the ED somewhat agitated and tremulous and received IV ativan -> now pt quite drowsy -Received ativan IV multiple times, now ordered IM 2.5mg zyprexa 06/11 ongoing agitation Infectious work up: UA negative, blood cultures NGTD Delirium precautions cont. to closely monitor on Tele. nephrology contacted to assist w/ PD needs 08/24- pt with improved mentation, taking meds. EEG for abnormal movements, doesn't appear consistent with seizure like activity, but shaheen to dyskinesia/chorea like motions; patient's increased alertness and continued motions will limit ability for MRI -Neurology consulted, appreciate recs ESRD on PD Nephrology on consult -PD started IV lasix 100mg now, plan for daily until able to take po Appreciate nephrology recs -peritoneal dialysis -laxatives and enemas to avoid peritonitis Acute pain, reportedly muscle spasms History Nausea with RUQ noted at OP visit on 08/09 with pending RUQ US ordered; similar concerns in 2022 Prior US with sludge and cholelithiasis, pancreas with IPOMN 2022 Prescribed hydroxyzine at that time Was taking Flexeril with relief previously -IV tylenol and heat compress on right back Patient has long standing history of pain, and took to much pain medication. Pain Management consulted, appreciate recs -will re-assess once mental status better -contacted Pain once more on 08/24 for possible reassessment, given pt's complaints of left shoulder pain, back pain and improved mental status. -evaluated by pain on 08/25 Persistent Atrial fibrillation with RVR received 1 dose IV metoprolol Was on IV 2.5 q6 h metoprolol Resumed PO on 08/24, metoprolol 12.5mg daily home regimen Continue Eliquis, Cardiology consult for eval Elevated Troponin In setting of ESRD and A fib RVR, no chest pain or concern for active ACS Monitor on Tele Chronic baseline elevation Peak 120, downtrending with improvement of rates Chronic diastolic CHF (congestive heart failure) Chronic LBBB Appears euvolemic, continue torsemide when able to take PO IV forsemide 100mg daily COPD albuterol prn DM type 2 (diabetes mellitus, type 2) with neuropathy Hgb A1c 7.4 08/2022, repeat A1C Hold oral agents and utilize NovoLog per protocol while hospitalized Hold gabapentin as above Chronic back pain, lumbar disc herniation with radiculopathy Flexeril 5mg TID ordered in OP records previously pain mgmt consult On chronic opidoids, will order IV dilaudid until po at 0.25 to help stave off withdrawal, blunt pain Pain Management consulted, appreciate recs -will re-assess once mental status better -contacted Enoch Tinajero on 08/24 for possible reassessment, given pt's complaints of left shoulder pain, back pain and improved mental status. Chronic Hyponatremia Na 134, chronic, at baseline Volume mgmt via PD Chronic ANGY (iron deficiency anemia) Baseline ~9-10 Stable Gout Allopurinol 100mg daily Hypothyroidism Continue levothyroxine Depression Severe anxiety 5mg BID Buspar, Hydroxyzine at home BPH Home terazosin, resume when able DVT Px:Eliquis Admission and Anticipated Discharge Date Admission Date: August 22, 2023 Subjective Wss seen sitting in chair. On phone paying his bills, calling out numbers and ID from memory. Review of Systems Review of Systems: All systems reviewed & are unremarkable except as noted in Subjective Physical Exam Physical Exam: General: Alert, orientedx1. No acute distress Psych: Appropriate mood and affect Neuro:could not lift left arm HEENT: NC/AT CV: RRR Resp: Breath sounds clear bilaterally, no increased effort of breathing. Abdomen:Soft, nontender Extremities: No edema in lower extremities bilaterally. Results & Data Results & Data Vital Signs (Past 12 Hours) Vital Signs Temp Pulse Pulse Pulse Resp BP Pulse Ox 08/30/23 15:15 96 H 08/30/23 14:56 36.8 C 74 20 91/63 L 99 08/30/23 11:19 106 H 08/30/23 08:15 36.4 C L 95 H 18 126/80 08/30/23 07:36 08/30/23 07:08 36.3 C L 104 H 18 138/85 99 O2 Del Method O2 Flow Rate 08/30/23 15:15 08/30/23 14:56 Room Air 08/30/23 11:19 08/30/23 08:15 08/30/23 07:36 Nasal Cannula 2 08/30/23 07:08 Nasal Cannula
--- NOTE | 2023-08-30 17:04 | Dialysis Progress Note ---
Date of Service August 30, 2023 Assessment & Plan (1) ESRD (end stage renal disease): Plan: Fortunately no e/o fluid overload or major electrolyte problem. ABG showing a pH of 7.25 is totally acceptable in ESRD. He is tolerating PD well. His helps w/ it at home and is ready to reassume that part of his care per case mgt notes. continue PD on daylight while in house. mild hypotension/tachycardia today and ongoing confusion > will hold torsemide in AM (also more hyponatremia) and run on 1.5% bags in AM daily bmp defer to primary service if he needs a voiding trial care coordinated w/ Dr Díaz regarding d/c needs. (2) Altered mental status: Plan: he had too many Baclofen. this muscle relaxant is contraindicated in Dialysis patient and should not be used ever. hemodialysis is very good in clearing it but not as much data with PD. he is still somewhat confused and a bit restless but not agitated. asking about how to treat his back pain Admission and Anticipated Discharge Date Admission Date: August 22, 2023 Subjective c/o ongoing back pain. no n/v, no sob. PD going well, 1.7L UOP. seen on peritoneal dialysis cycler. off of 1:1. on RA at time of eval. Review of Systems 2 Review of Systems: All systems reviewed & are unremarkable except as noted in Subjective Physical Exam 2 Constitutional: well developed, well nourished and cooperative; no acute distress Eyes: EOM intact bilaterally ENMT: Ears: no external ear abnormality Nose: no external nose abnormality Mouth: + dry oral mucous membranes Neck: no nuchal rigidity Respiratory: normal respiratory effort Auscultation: + diminished lung sounds Cardiovascular: Rate/Rhythm: regular rhythm and + tachycardic Extremities: no edema Gastrointestinal (Abdomen): Inspection/Auscultation: abdomen normal to inspection (PD catheter present) and normal bowel sounds P ercussion/Palpation: abdomen soft; abdomen nontender Musculoskeletal: Extremities: strength 5/5 throughout Skin: no rashes, warm and dry Neurologic: castro, fluent speech, no tremor Results & Data Vital Signs (Past 12 Hours) Vital Signs Temp Pulse Pulse Pulse Resp BP Pulse Ox 08/30/23 15:15 96 H 08/30/23 14:56 36.8 C 74 20 91/63 L 99 08/30/23 11:19 106 H 08/30/23 08:15 36.4 C L 95 H 18 126/80 08/30/23 07:36 08/30/23 07:08 36.3 C L 104 H 18 138/85 99 O2 Del Method O2 Flow Rate 08/30/23 15:15 08/30/23 14:56 Room Air 08/30/23 11:19 08/30/23 08:15 08/30/23 07:36 Nasal Cannula 2 08/30/23 07:08 Nasal Cannula Laboratory Results 08/30/23 06:01 08/30/23 06:01
[2023-08-31 04:55] LABS: Basophils # (auto) 0.05 K/uL (0.00-0.20); Basophils % (auto) 0.7 %; Eosinophils # (auto) 0.32 K/uL (0.00-0.50); Eosinophils % (auto) 4.7 %; Hematocrit (blood only) 36.6 % (42.0-52.0); Hemoglobin 12.1 g/dl (14.0-18.0); Immature Granulocytes % (auto) 1.5 %; Lymphocytes # (auto) 1.07 K/uL (1.20-3.40); Lymphocytes % (auto) 15.9 %; Mean Corpuscular Hemoglobin 31.1 pg (25.0-34.0); Mean Corpuscular Hgb Conc 33.1 g/dL (32.0-36.0); Mean Corpuscular Volume 94.1 fL (80.0-100.0); Monocytes # (auto) 0.82 K/uL (0.11-0.59); Monocytes % (auto) 12.2 %; Neutrophils # (auto) 4.38 K/uL (1.40-6.50); Platelet Count 320 K/uL (130-400); RDW Coefficient of Variation 13.4 % (11.5-14.5); RDW Standard Deviation 46.4 fL (36.4-46.3); Red Blood Count 3.89 M/uL (4.70-6.10); White Blood Count 6.74 K/ul (4.8-10.8)
[2023-08-31 05:18] LABS: Albumin Level 3.4 gm/dl (3.4-5.0); BUN Creatinine Ratio 14.8 (10-20); Bilirubin,Total 0.5 mg/dl (0.2-1.0); Calcium 9.4 mg/dl (8.6-10.3); Creatinine Clr Calc Pharmacy 9.9 ml/min; Est GFR (African American) 9.5 ml/min; Est GFR (Non-African American) 8.2 ml/min; Globulin 3.4 gm/dl (2.5-4.0); Magnesium 2.1 mg/dl (1.7-2.4); Phosphorus 6.2 mg/dl (2.5-4.9); Potassium 4.1 mmol/L (3.5-5.1); Total Protein 6.8 gm/dl (6.0-8.3)
--- NOTE | 2023-08-31 11:33 | Hospitalist Progress Note ---
Date of Service August 31, 2023 Assessment & Plan (1) Altered mental status: Plan: Mr. 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 Per previous provider with addendum: At baseline, patient is independent, use walker and without deficits of mental status is baseline. Patient remained acutely confused and agitated. Patient with history of "muscle spasms" and previously on flexeril. Daughter states that he also used heat and massage to help. Plan for delirium precautions, encourage Eliquis dosing, rate control with IV until able to take po, and attempt pain management without compromising mental status. Patient now with improvement in mentation--but with strange movements, similar to dyskinesia. Question of sequelae of baclofen toxicity, or other process. Unable to hold still for MRI, will order EEG and Neurology consult. Anticipate improvement with continued PD. Acute metabolic encephalopathy - likely secondary to hydrocodone and baclofen in the setting of ESRD -10mg baclofen 5 doses in 12 hours - On gabapentin at home 100mg BID, hold - in the ED somewhat agitated and tremulous and received IV ativan -> now pt quite drowsy -Received ativan IV multiple times, now ordered IM 2.5mg zyprexa 2/ ongoing agitation Infectious work up: UA negative, blood cultures NGTD Delirium precautions cont. to closely monitor on Tele. nephrology contacted to assist w/ PD needs 08/24- pt with improved mentation, taking meds. EEG for abnormal movements, doesn't appear consistent with seizure like activity, but shaheen to dyskinesia/chorea like motions; patient's increased alertness and continued motions will limit ability for MRI Neurology consulted, appreciate recs 08/30- appears pt has episodes of sundowning. Likely component of delirium playing a role. Delirium precautions. Frequent reorientation, avoid sedating medications. ESRD on PD Nephrology on consult -PD started IV lasix 100mg now, plan for daily until able to take po Appreciate nephrology recs -peritoneal dialysis -laxatives and enemas to avoid peritonitis Appreciate nephrology recs Acute pain, reportedly muscle spasms History Nausea with RUQ noted at OP visit on 08/09 with pending RUQ US ordered; similar concerns in 2022 Prior US with sludge and cholelithiasis, pancreas with IPOMN 2022 Prescribed hydroxyzine at that time Was taking Flexeril with relief previously -IV tylenol and heat compress on right back Patient has long standing history of pain, and took to much pain medication. Pain Management consulted, appreciate recs -will re-assess once mental status better -contacted Pain once more on 08/24 for possible reassessment, given pt's complaints of left shoulder pain, back pain and improved mental status. -evaluated by pain on 08/25 -pain contacted once more on 08/30- recommended flexeril with nephrology's permission, tylenol and lidocaine patch for discharge for pain with outpatient pain management followup. Persistent Atrial fibrillation with RVR received 1 dose IV metoprolol Was on IV 2.5 q6 h metoprolol Resumed PO on 08/24, metoprolol 12.5mg daily home regimen Continue Eliquis Cardiology consult for eval Elevated Troponin In setting of ESRD and A fib RVR, no chest pain or concern for active ACS Monitor on Tele Chronic baseline elevation Peak 120, downtrending with improvement of rates Chronic diastolic CHF (congestive heart failure) Chronic LBBB Appears euvolemic, continue torsemide when able to take PO IV torsemide 100mg daily, currently on hold per nephrology COPD albuterol prn DM type 2 (diabetes mellitus, type 2) with neuropathy Hgb A1c 7.4 08/2022, repeat A1C Hold oral agents and utilize NovoLog per protocol while hospitalized Hold gabapentin as above Chronic back pain, lumbar disc herniation with radiculopathy Flexeril 5mg TID ordered in OP records previously pain mgmt consult On chronic opioids, will order IV dilaudid until po at 0.25 to help stave off withdrawal, blunt pain Pain Management consulted, appreciate recs -will re-assess once mental status better -contacted Pain once more on 08/24 for possible reassessment, given pt's complaints of left shoulder pain, back pain and improved mental status. -evaluated by pain on 08/25 -pain contacted once more on 08/30- recommended flexeril with nephrology's permission, tylenol and lidocaine patch for discharge for pain with outpatient pain management followup. Chronic Hyponatremia Na 134, chronic, at baseline Volume mgmt via PD Chronic ANGY (iron deficiency anemia) Baseline ~9-10 Stable Gout Allopurinol 100mg daily Hypothyroidism Continue levothyroxine Depression Severe anxiety 5mg BID Buspar, Hydroxyzine at home BPH Home terazosin, resume when able DVT Px:Izzy Admission and Anticipated Discharge Date Admission Date: August 22, 2023 Subjective Pt AAOx3 in the AM. Later confused in the PM and notified by nursing that pt was leaving AMA and that daughter was coming to pick him up. Called daughter and she stated that she was not coming to pick him up and that he was very confused. She also stated that her mom would not be able to take care of him like this at home. Pt in the room, states "my brain is not right" Review of Systems Review of Systems: All systems reviewed & are unremarkable except as noted in Subjective Physical Exam Physical Exam: General: Alert, orientedx1. No acute distress Psych: Appropriate mood and affect Neuro:could not lift left arm HEENT: NC/AT CV: RRR Resp: Breath sounds clear bilaterally, no increased effort of breathing. Abdomen:Soft, nontender Extremities: No edema in lower extremities bilaterally. Results & Data Results & Data Vital Signs (Past 12 Hours) Vital Signs Temp Pulse Pulse Resp BP Pulse Ox O2 Del Method 08/31/23 10:42 36.4 C L 78 17 116/79 97 Room Air 08/31/23 08:30 36.7 C 91 H 17 100/66 08/31/23 07:53 36.7 C 50 L 17 100/66 96 Room Air 08/31/23 03:28 36.8 C 99 H 22 136/77 97 Room Air
--- NOTE | 2023-08-31 12:38 | Dialysis Progress Note ---
Date of Service August 31, 2023 Assessment & Plan (1) ESRD (end stage renal disease): Plan: Fortunately no e/o fluid overload or major electrolyte problem. ABG showing a pH of 7.25 is totally acceptable in ESRD. He is tolerating PD well. His helps w/ it at home and is ready to reassume that part of his care per case mgt notes. continue PD on daylight while in house. mild hypotension/tachycardia today and ongoing confusion > torse on hold as of 08/30 AM (also more hyponatremia) and run on 2.5? alt 1.5% bags in AM daily bmp defer to primary service if he needs a voiding trial care coordinated w/ Dr Díaz regarding d/c needs> likely one more day at least w/ change in bowels (2) Altered mental status: Plan: he had too many Baclofen. this muscle relaxant is contraindicated in Dialysis patient and should not be used ever. hemodialysis is very good in clearing it but not as much data with PD. he is still somewhat confused and a bit restless but not agitated. asking about how to treat his back pain > per pain mgt; flexeril has apparently been well tolerated in past Admission and Anticipated Discharge Date Admission Date: August 22, 2023 Subjective seen on dialysis. eating lunch with gusto. no sob. reddish, tess colored stool. no chest pain, no abd pain. back pain is his biggest concern; pain mgt eval'd > rec's tylenol, lidocaine, flexeril Review of Systems 2 Review of Systems: All systems reviewed & are unremarkable except as noted in Subjective Physical Exam 2 Constitutional: well developed, well nourished and cooperative; no acute distress Eyes: EOM intact bilaterally ENMT: Ears: no external ear abnormality Nose: no external nose abnormality Mouth: + dry oral mucous membranes Neck: no nuchal rigidity Respiratory: normal respiratory effort Auscultation: + diminished lung sounds Cardiovascular: Rate/Rhythm: regular rhythm and + tachycardic Extremities: no edema Gastrointestinal (Abdomen): Inspection/Auscultation: abdomen normal to inspection (PD catheter present) and normal bowel sounds P ercussion/Palpation: abdomen soft; abdomen nontender Musculoskeletal: Extremities: strength 5/5 throughout Skin: no rashes, warm and dry Results & Data Vital Signs (Past 12 Hours) Vital Signs Temp Pulse Pulse Resp BP Pulse Ox O2 Del Method 08/31/23 10:42 36.4 C L 78 17 116/79 97 Room Air 08/31/23 08:30 36.7 C 91 H 17 100/66 08/31/23 07:53 36.7 C 50 L 17 100/66 96 Room Air 08/31/23 03:28 36.8 C 99 H 22 136/77 97 Room Air Laboratory Results 08/31/23 03:57 08/31/23 03:57
--- NOTE | 2023-09-01 08:50 | Pain Management Progress Note ---
Date of Service September 01, 2023 Assessment & Plan (1) Baclofen overdose: Encounter type: initial encounter Injury intent: undetermined intent Qualified Code(s): T42.8X4A - Poisoning by antiparkinsonism drugs and other central muscle-tone depressants, undetermined, initial encounter (2) Anticholinergic syndrome: Encounter type: initial encounter Injury intent: undetermined intent Qualified Code(s): T44.3X4A - Poisoning by other parasympatholytics [anticholinergics and antimuscarinics] and spasmolytics, undetermined, initial encounter (3) Altered mental status: (4) Foot drop, bilateral: (5) History of fusion of lumbar spine: (6) Acute right flank pain: Plan: Right flank pain does seem myofascial in nature. With Tylenol, stretches, and lidocaine patches symptoms should improve. Plan 1. Recommend continuation of Tylenol and lidocaine patches. 2. Nothing to offer interventionally. 3. Would not recommend the use of opioids or muscle relaxers due to recent baclofen overdose. 4. Will sign off on the patient. Please contact with any questions or concerns. Admission and Anticipated Discharge Date Admission Date: August 22, 2023 Subjective Mr. David is awake, alert, and oriented. He states that he lost memory of several days during this current hospitalization. He has been taking Tylenol and applying Lidocaine patch for pain. Primary pain is located along the right flank and described as a deep aching pain that is aggravated with twisting. No radicular symptoms. Pain is rated 2/10 currently. No constitutional complaints or neurological symptoms. Case discussed with Dr. Tiffany Arroyo Physical Exam Physical Exam: GENERAL: This is an 83 year old male in no acute distress. Clear mentation. HEAD/FACE: Normocephalic and atraumatic. EYES: No drainage or conjunctival injection. ENT: Nose without bleeding or discharge. Oral mucosa moist. NECK: Full ROM without apparent pain. No swelling or masses noted. RESPIRATORY: Patient with unlabored breathing. No signs of respiratory distress. CHEST/AXILLA: Chest movement symmetrical. No deformities noted. BACK: Increased thoracic kyphosis, loss of lumbar lordosis. Mild tenderness along the right flank. Negative CVA tenderness. No midline, facet joint, SI joint tenderness. SKIN: [place], warm and dry. No rash noted. MS/EXTREMITY: No swelling, no deformities. NEURO: Alert and appears oriented. Speech is fluent. Cranial Nerves are grossly intact. Using walker for ambulation PSYCH: Alert, pleasant, affect is calm
--- NOTE | 2023-09-01 12:51 | Dialysis Progress Note ---
Date of Service September 01, 2023 Assessment & Plan (1) ESRD (end stage renal disease): Plan: Fortunately no e/o fluid overload or major electrolyte problem, though sNa progressively dropping as of yesterday. ABG showing a pH of 7.25 is totally acceptable in ESRD. He is tolerating PD well. His helps w/ it at home and is ready to reassume that part of his care per case mgt notes. continue PD on daylight cycler regimen while in house. mild hypotension/tachycardia yesterday which seems to have resolved for now > torse on hold as of 08/30 AM (also more hyponatremia) and run on all 1.5% bags today daily bmp defer to primary service if he needs a voiding trial will check hgb, bmp today given e/o bleeding GI care coordinated w/ Dr Prince regarding pain mgt meds, volume status, dialysis and labs plan (2) Altered mental status: Plan: he had too many Baclofen. this muscle relaxant is contraindicated in Dialysis patient and should not be used ever. hemodialysis is very good in clearing it but not as much data with PD. he is still somewhat confused and a bit restless but not agitated. asking about how to treat his back pain > per pain mgt; flexeril has apparently been well tolerated in past Admission and Anticipated Discharge Date Admission Date: August 22, 2023 Subjective seen on PD. he's really frustrated/disgruntled; having lots of R back pain; FOBT +; 2 bm w/ streaks of blood in them per RN. pain mgt following. Review of Systems 2 Review of Systems: All systems reviewed & are unremarkable except as noted in Subjective Physical Exam 2 Constitutional: well developed, well nourished, + acute distress (mild/ miserable from pain) and cooperative Eyes: EOM intact bilaterally ENMT: Ears: no external ear abnormality Nose: no external nose abnormality Mouth: + dry oral mucous membranes Neck: no nuchal rigidity Respiratory: normal respiratory effort Auscultation: + diminished lung sounds Cardiovascular: Rate/Rhythm: regular rate and regular rhythm Extremities: n o edema Gastrointestinal (Abdomen): Inspection/Auscultation: abdomen normal to inspection (PD catheter present) and normal bowel sounds P ercussion/Palpation: abdomen soft; abdomen nontender Musculoskeletal: Extremities: strength 5/5 throughout Skin: no rashes, warm and dry Results & Data Vital Signs (Past 12 Hours) Vital Signs Temp Pulse Pulse Resp BP Pulse Ox O2 Del Method 09/01/23 11:27 36.7 C 70 18 131/80 94 Room Air 09/01/23 08:35 37.1 C 68 18 111/63 09/01/23 08:23 37.1 C 116 H 18 111/63 97 Room Air 09/01/23 03:18 37.3 C 106 H 20 111/57 L 96 Room Air Laboratory Results 08/31/23 03:57 08/31/23 03:57
[2023-09-01] MEDS: CYCLOBENZAPRINE HCL 5 MG TAB PO STA (12:52)
[2023-09-01 13:27] LABS: Hematocrit (blood only) 34.1 % (42.0-52.0); Hemoglobin 11.3 g/dl (14.0-18.0); Mean Corpuscular Hemoglobin 31.3 pg (25.0-34.0); Mean Corpuscular Hgb Conc 33.1 g/dL (32.0-36.0); Mean Corpuscular Volume 94.5 fL (80.0-100.0); Platelet Count 315 K/uL (130-400); RDW Coefficient of Variation 13.6 % (11.5-14.5); RDW Standard Deviation 47.4 fL (36.4-46.3); Red Blood Count 3.61 M/uL (4.70-6.10)
[2023-09-01 13:38] LABS: Potassium 4.1 mmol/L (3.5-5.1)
[2023-09-01 13:45] LABS: Creatinine Clr Calc Pharmacy 9.7 ml/min; Est GFR (African American) 9.3 ml/min
--- NOTE | 2023-09-01 15:18 | Hospitalist Progress Note ---
Date of Service September 01, 2023 Assessment & Plan (1) Altered mental status: Plan: Mr. 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 Per previous provider with addendum: At baseline, patient is independent, use walker and without deficits of mental status is baseline. Patient remained acutely confused and agitated. Patient with history of "muscle spasms" and previously on flexeril. Daughter states that he also used heat and massage to help. Acute metabolic encephalopathy - likely secondary to hydrocodone and baclofen in the setting of ESRD -10mg baclofen 5 doses in 12 hours - On gabapentin at home 100mg BID, hold - in the ED somewhat agitated and tremulous and received IV ativan -> pt quite drowsy -Received ativan IV multiple times, now ordered IM 2.5mg zyprexa 06/11 ongoing agitation Infectious work up: UA negative, blood cultures NGTD Delirium precautions cont. to closely monitor on Tele. nephrology contacted to assist w/ PD needs 08/24- pt with improved mentation, taking meds. EEG for abnormal movements, doesn't appear consistent with seizure like activity, but shaheen to dyskinesia/chorea like motions; patient's increased alertness and continued motions will limit ability for MRI Neurology consulted, appreciate recs 08/30- appears pt has episodes of sundowning. Likely component of delirium playing a role. Delirium precautions. Frequent reorientation, avoid sedating medications. 08/31 mental status seems at baseline ESRD on PD Nephrology on consult -PD started IV lasix 100mg now, plan for daily until able to take po Appreciate nephrology recs -peritoneal dialysis -laxatives and enemas to avoid peritonitis Appreciate nephrology recs Acute pain, reportedly muscle spasms History Nausea with RUQ noted at OP visit on 08/09 with pending RUQ US ordered; similar concerns in 2022 Prior US with sludge and cholelithiasis, pancreas with IPOMN 2022 Prescribed hydroxyzine at that time Was taking Flexeril with relief previously -IV tylenol and heat compress on right back Patient has long standing history of pain, and took to much pain medication. Pain Management consulted, appreciate recs -will re-assess once mental status better -contacted Pain once more on 08/24 for possible reassessment, given pt's complaints of left shoulder pain, back pain and improved mental status. -evaluated by pain on 08/25 -pain contacted once more on 08/30- recommended flexeril with nephrology's permission, tylenol and lidocaine patch for discharge for pain with outpatient pain management followup. 08/31 Discussed w/ nephrology and started flexeril, cont. to monitor Persistent Atrial fibrillation with RVR received 1 dose IV metoprolol Was on IV 2.5 q6 h metoprolol Resumed PO on 08/24, metoprolol 12.5mg daily home regimen Continue Eliquis Cardiology consult for eval Elevated Troponin In setting of ESRD and A fib RVR, no chest pain or concern for active ACS Monitor on Tele Chronic baseline elevation Peak 120, downtrending with improvement of rates Chronic diastolic CHF (congestive heart failure) Chronic LBBB Appears euvolemic, continue torsemide when able to take PO IV torsemide 100mg daily, currently on hold per nephrology COPD albuterol prn DM type 2 (diabetes mellitus, type 2) with neuropathy Hgb A1c 7.4 08/2022, repeat A1C Hold oral agents and utilize NovoLog per protocol while hospitalized Hold gabapentin as above Chronic back pain, lumbar disc herniation with radiculopathy Flexeril 5mg TID ordered in OP records previously pain mgmt consult On chronic opioids, will order IV dilaudid until po at 0.25 to help stave off withdrawal, blunt pain Pain Management consulted, appreciate recs -will re-assess once mental status better -contacted Pain once more on 08/24 for possible reassessment, given pt's complaints of left shoulder pain, back pain and improved mental status. -evaluated by pain on 08/25 -pain contacted once more on 08/30- recommended flexeril with nephrology's permission, tylenol and lidocaine patch for discharge for pain with outpatient pain management followup. resumed flexeril, As above Chronic Hyponatremia Na 134, chronic, at baseline Volume mgmt via PD Chronic ANGY (iron deficiency anemia) Baseline ~9-10 Stable Gout Allopurinol 100mg daily Hypothyroidism Continue levothyroxine Depression Severe anxiety 5mg BID Buspar, Hydroxyzine at home BPH Home terazosin, resume when able DVT Px:Izzy Admission and Anticipated Discharge Date Admission Date: August 22, 2023 Subjective Pt seen in follow up of AMS after taking baclofen, he is on PD for ESRD Currently alert and oriented however in pain - discussed with nephrology - will try flexeril Pain management also consulted GI consult placed yesterday for poss. GI bleed, FOBT positive Pt is currently only complaining about about pain - no fever, chills, chest pain, shortness of breath Review of Systems Review of Systems: All systems reviewed & are unremarkable except as noted in Subjective Physical Exam Physical Exam: General: WD/WN in NAD Psych: Appropriate mood and affect Neuro: awake, alert, able to answer simple questions appropriately, moves extremities, however reports pain w/ movement HEENT: NC/AT CV: RRR Resp: Breath sounds clear bilaterally, no increased effort of breathing. Abdomen:Soft, nontender Extremities: No edema in lower extremities bilaterally. Results & Data Results & Data Vital Signs (Past 12 Hours) Vital Signs Temp Pulse Pulse Resp BP Pulse Ox O2 Del Method 09/01/23 11:27 36.7 C 70 18 131/80 94 Room Air 09/01/23 08:35 37.1 C 68 18 111/63 09/01/23 08:23 37.1 C 116 H 18 111/63 97 Room Air 09/01/23 03:18 37.3 C 106 H 20 111/57 L 96 Room Air Laboratory Results 09/01/23 09/01/23 09/01/23 Range/Units 12:59 12:23 08:04 WBC 5.90 (4.8-10.8) K/ul RBC 3.61 L (4.70-6.10) M/uL Hgb 11.3 L (14.0-18.0) g/dl Hct 34.1 L (42.0-52.0) % MCV 94.5 (80.0-100.0) fL MCH 31.3 (25.0-34.0) pg MCHC 33.1 (32.0-36.0) g/dL RDW Std Deviation 47.4 H (36.4-46.3) fL RDW Coeff of Pooja 13.6 (11.5-14.5) % Plt Count 315 (130-400) K/uL MPV 10.0 (9.4-12.4) fL Sodium 134 L (136-145) mmol/L Potassium 4.1 (3.5-5.1) mmol/L Chloride 95 L (98-107) mmol/L Carbon Dioxide 27 (21-32) mmol/L Anion Gap 12 H (3-11) BUN 84 H (6-23) mg/dl Creatinine 5.98 H* (0.6-1.4) mg/dl Est Cr Clr Drug Dosing 9.7 ml/min Est GFR ( Amer) 9.3 ml/min Est GFR (Non-Af Amer) 8.0 ml/min BUN/Creatinine Ratio 14.0 (10-20) Glucose 218 H (70-99(Fasting)) mg/dl POC Glucose 229 H 164 H (70-99) mg/dl Calcium 9.0 (8.6-10.3) mg/dl 08/31/23 08/31/23 Range/Units 20:49 16:09 WBC (4.8-10.8) K/ul RBC (4.70-6.10) M/uL Hgb (14.0-18.0) g/dl Hct (42.0-52.0) % MCV (80.0-100.0) fL MCH (25.0-34.0) pg MCHC (32.0-36.0) g/dL RDW Std Deviation (36.4-46.3) fL RDW Coeff of Pooja (11.5-14.5) % Plt Count (130-400) K/uL MPV (9.4-12.4) fL Sodium (136-145) mmol/L Potassium (3.5-5.1) mmol/L Chloride (98-107) mmol/L Carbon Dioxide (21-32) mmol/L Anion Gap (3-11) BUN (6-23) mg/dl Creatinine (0.6-1.4) mg/dl Est Cr Clr Drug Dosing ml/min Est GFR ( Amer) ml/min Est GFR (Non-Af Amer) ml/min BUN/Creatinine Ratio (10-20) Glucose (70-99(Fasting)) mg/dl POC Glucose 167 H 190 H (70-99) mg/dl Calcium (8.6-10.3) mg/dl Medications Administered Current Inpatient Medications Acetaminophen (Acetaminophen 325 Mg Tab) 650 mg PO Q4H PRN PRN Reason: Pain or Fever Stop: 09/21/23 16:15 Last Admin: 09/01/23 09:05 Dose: 650 mg Albuterol (Albuterol Hfa 8 Gm Inhaler) 2 puffs INH Q4 PRN PRN Reason: Wheezing Stop: 09/21/23 18:16 Apixaban (Apixaban 2.5 Mg Tab) 2.5 mg PO BID [facility] Stop: 09/21/23 20:59 Last Admin: 09/01/23 08:53 Dose: 2.5 mg Cyclobenzaprine HCl (Cyclobenzaprine Hcl 5 Mg Tab) 5 mg PO BID [facility] Stop: 10/01/23 20:59 Dextrose (Dextrose 50% 50 Ml Syringe) 25 - 50 ml IV UD PRN; Protocol PRN Reason: Hypoglycemia Protocol Stop: 09/25/23 19:56 Docusate Sodium (Docusate Sodium 100 Mg Cap) 100 mg PO BID [facility] Stop: 09/24/23 09:44 Last Admin: 09/01/23 08:53 Dose: Not Given Glucagon (Glucagon For Inj 1 Mg Vial) 1 mg SQ UD PRN; Protocol PRN Reason: Hypoglycemia Protocol Stop: 09/25/23 19:56 Glucose (Glucose 10 Tab/Tube) 4 - 8 tab PO UD PRN; Protocol PRN Reason: Hypoglycemia Treatment Stop: 09/25/23 19:56 Glucose (Glucose 40% Gel 15 Gm Tube) 15 - 30 gm PO UD PRN; Protocol PRN Reason: Hypoglycemia Protocol Stop: 09/25/23 19:56 Hydromorphone HCl (Hydromorphone Inj 0.5 Mg/0.5 Ml Syr) 0.25 mg IV Q6H PRN PRN Reason: Severe Pain (Scale 7, 8, 9,10) Stop: 09/06/23 12:55 Last Admin: 09/01/23 16:07 Dose: 0.25 mg Lorazepam 0.5 mg/ Syringe 0.5 mls @ 2 mls/min IV Q4H PRN PRN Reason: Anxiety/Agitation Stop: 09/21/23 21:34 Last Admin: 08/28/23 18:09 Dose: 2 mls/min Insulin Aspart (Insulin Aspart Per Unit Charge) 0 units SC ACHS [facility] Stop: 09/25/23 20:59 Last Admin: 09/01/23 17:42 Dose: 6 units Lactulose (Lactulose Syrup 20 Gm/30 Ml Udc) 20 gm PO DAILY [facility] Stop: 09/27/23 08:59 Last Admin: 09/01/23 08:54 Dose: Not Given Levothyroxine Sodium (Levothyroxine Sodium 150 Mcg Tablet) 150 mcg PO DAILYBB [facility] Stop: 09/22/23 06:29 Last Admin: 09/01/23 05:50 Dose: 150 mcg Lidocaine (Lidocaine 5% 1 Patch) 1 patch TD QAM [facility] Stop: 09/28/23 10:14 Last Admin: 09/01/23 08:54 Dose: 1 patch Metoprolol Succinate (Metoprolol Succ 25mg Ext Rel Tab) 25 mg PO QAM [facility] Stop: 09/24/23 09:59 Last Admin: 09/01/23 08:53 Dose: 25 mg Miscellaneous (Carbohydrates For Hypoglycemia ) 15 - 30 gm PO UD PRN PRN Reason: Hypoglycemia Protocol Stop: 09/25/23 19:56 Miscellaneous (Remove Lidoderm Patch) 1 each N/A DAILY@2100 [facility] Stop: 09/28/23 20:59 Last Admin: 08/31/23 22:05 Dose: 1 each Olanzapine (Olanzapine Zydis 5 Mg Orally Dis. Tab) 5 mg PO BID PRN PRN Reason: Agitation Stop: 09/23/23 20:59 Last Admin: 08/31/23 21:13 Dose: 5 mg Olanzapine (Olanzapine 10 Mg/2.1 Ml Sdv) 2.5 mg IM Q4H PRN PRN Reason: Agitation Stop: 09/27/23 22:33 Polyethylene Glycol (Polyethylene (Miralax) 17 Gm Pack) 17 gm PO DAILY [facility] Stop: 09/25/23 11:14 Last Admin: 09/01/23 08:53 Dose: Not Given Potassium Chloride (Potassium Chloride 20 Meq/15 Ml Udc) 20 meq PO DAILY [facility] Stop: 09/26/23 08:59 Last Admin: 09/01/23 08:53 Dose: 20 meq Torsemide (Torsemide 100 Mg Tab) 100 mg PO QAM [facility] Stop: 09/26/23 08:59 Last Admin: 08/30/23 09:13 Dose: 100 mg
--- NOTE | 2023-09-01 16:15 | Gastrointestinal Consultation ---
Date of Consultation September 01, 2023 Assessment & Plan (1) BRBPR (bright red blood per rectum): -Continue to monitor H/H -Continue to monitor for worsening overt GI bleeding -Conservative management at the present time; Consider CT imaging first if bleeding continues Supervising Physician Co-Signing Physician Notes Agree with OSEAS Valentin as above Interviewed and examined patient, and agree with above Abd: Soft, NT, Distended, +BS No further overt GI bleeding as per patient Continue current therapy and supportive care History of Present Illness Reason for Consultation: BRBPR Attending Physician: Yan Prince MD History of Present Illness Patient is an 83 yo male hospitalized for altered mental status/Baclofen overdose. He has been here for 10 days. He has a history of permanent A fib on Eliquis, ESRD on PD, CHF, DM2, & hypothyroidism. Per nursing, patient had an episode of blood tinged stool. GI has been consulted for this matter. He is unsure of the date of previous colonoscopies. He denies abdominal pain. He denies diarrhea or constipation. He notes a history of hemorrhoids. H/H 11.3/34.1. Poor historian overall so very difficult to extract pertinent information. Allergies Allergy/AdvReac Type Severity Reaction Status Date / Time clonidine Allergy Unknown allergic Unverified 08/22/23 15:41 to all but 1 brand carvedilol Allergy Hives Verified 08/22/23 15:41 losartan Allergy Unknown Verified 08/22/23 15:41 ANJELICA Inhibitors AdvReac Intermediate INTOLERANCE Verified 08/22/23 15:41 PER MD ORDER allopurinol AdvReac Intermediate severe abd Verified 08/22/23 15:41 pain Beta-Blockers AdvReac Intermediate INTOLERANCE Verified 08/22/23 15:41 (Beta-Adrenergic Bloc PER DR ARELLANO doxazosin AdvReac Intermediate INTOLERANCE Verified 08/22/23 15:[address] ARELLANO Ntwtirc-HBU-QpD Reductase AdvReac Intermediate INTOLERANCE Verified 08/22/23 15:41 Inhibitor PER [Whqbvpj-Bdl-Juv Reductase ADAN Inhibitor] citalopram AdvReac Unknown Verified 08/22/23 15:41 hydralazine AdvReac diarrhea, Verified 08/22/23 15:41 testicular pain hydrochlorothiazide AdvReac hyponatremi Verified 08/22/23 15:41 a lisinopril AdvReac Cough Verified 08/22/23 15:41 simvastatin [From Zocor] AdvReac Muscle Pain Verified 08/22/23 15:41 sitagliptin [From Januvia] AdvReac restlessnes Verified 08/22/23 15:41 s Home Medications Medication Instructions Recorded Confirmed Type allopurinol 100 mg tablet 100 mg PO QAM 02/25/18 08/22/23 History levothyroxine 150 mcg tablet 150 mcg PO DAILYBB 08/12/20 08/22/23 History docusate sodium 100 mg tablet 100 mg PO AMHS 08/29/22 08/22/23 History torsemide 100 mg tablet 100 mg PO QAM 08/29/22 08/22/23 History albuterol sulfate 90 mcg/actuation 2 puff inhalation Q4 PRN Wheezing 08/22/23 08/22/23 History aerosol inhaler apixaban 2.5 mg tablet (Eliquis) 2.5 mg PO AMHS 08/22/23 08/22/23 History baclofen 5 mg tablet 5 mg PO UD 08/22/23 08/22/23 History buspirone 5 mg tablet 5 mg PO UD 08/22/23 08/22/23 History glipizide 10 mg tablet 10 mg PO AMHS 08/22/23 08/22/23 History hydrocodone 5 mg-acetaminophen 325 1 tab PO UD PRN Pain 08/22/23 08/22/23 History mg tablet hydroxyzine HCl 25 mg tablet 25 mg PO UD 08/22/23 08/22/23 History lactulose 10 gram/15 mL oral 15 ml PO BID PRN severe 08/22/23 08/22/23 History solution constipation potassium chloride 10 mEq 20 meq PO BID 08/22/23 08/22/23 History tablet,extended release(part/cryst) terazosin 1 mg capsule 1 mg PO HS 08/22/23 08/22/23 History vitamin B complex-vitamin C-folic 1 tab PO DAILY 08/22/23 08/22/23 History acid 0.8 mg tablet (Jessie-Joycelyn) Patient History Medical History Foot drop, bilateral Pancreatic cyst Gout ANGY (iron deficiency anemia) Peritoneal dialysis catheter in situ ESRD (end stage renal disease) Pulmonary hypertension Chronic diastolic CHF (congestive heart failure) LBBB (left bundle branch block) Atrial fibrillation COPD (chronic obstructive pulmonary disease) Hypothyroidism DM type 2 (diabetes mellitus, type 2) Spinal stenosis Prostate ca Thyroid cancer Hypertension Surgical History History of fusion of lumbar spine L2-S1, instrumented S/P lumbar fusion Family History Other Diabetes Hypertension Social History Smoking Status: Former smoker Cigarettes Per Day: 10; Smoking End Date: 1969; Second Hand Exposure: No; Do You Dip or Chew Tobacco: No; Tobacco Cessation Education Requested by Patient: No Hx Alcohol Use: No Hx Substance Use: No Preferred Language: Zambian Communication Ability: Effective Label Stitcher Required: No Beliefs That Will Affect Care: None marital status: Current Living Situation: Spouse Feels Safe at Home: Yes Safety Concerns: Feels Safe At This Time Assistive Devices: Walker and Wheelchair Review of Systems Constitutional: no fever and no chills Respiratory: no cough and no dyspnea Gastrointestinal: + blood in stools; no abdominal pain and no diarrhea/loose stools Physical Exam Constitutional: well developed Respiratory: normal respiratory effort Cardiovascular: Rate/Rhythm: regular rate Gastrointestinal (Abdomen): normal bowel sounds, soft, nontender, no hepatosplenomegaly Results & Data Vital Signs (Past 12 Hours) Vital Signs Temp Pulse Pulse Resp BP Pulse Ox O2 Del Method 09/01/23 16:04 131/88 09/01/23 15:16 36.6 C 81 17 92/64 L 97 Room Air 09/01/23 11:27 36.7 C 70 18 131/80 94 Room Air 09/01/23 08:35 37.1 C 68 18 111/63 09/01/23 08:23 37.1 C 116 H 18 111/63 97 Room Air PG Care Time/CCT Total # of Minutes Spent Total Time Spent with Patient: Total time spent is greater than 50% in coordination of care (as documented) at patient's floor/unit and/or counseling patient: Coding Level of Care Code 23559 INT INP/OBS CARE 3/75MIN Diagnoses BRBPR (bright red blood per rectum) K62.5
[2023-09-01] MEDS: CYCLOBENZAPRINE HCL 5 MG TAB PO SCH (20:05)
[2023-09-02 06:11] LABS: Hematocrit (blood only) 32.2 % (42.0-52.0); Hemoglobin 10.9 g/dl (14.0-18.0); Mean Corpuscular Hemoglobin 31.4 pg (25.0-34.0); Mean Corpuscular Hgb Conc 33.9 g/dL (32.0-36.0); Mean Corpuscular Volume 92.8 fL (80.0-100.0); Platelet Count 305 K/uL (130-400); RDW Coefficient of Variation 13.7 % (11.5-14.5); RDW Standard Deviation 46.3 fL (36.4-46.3); Red Blood Count 3.47 M/uL (4.70-6.10); White Blood Count 7.39 K/ul (4.8-10.8)
[2023-09-02 06:37] LABS: BUN Creatinine Ratio 14.5 (10-20); Calcium 9.2 mg/dl (8.6-10.3); Est GFR (African American) 9.5 ml/min; Est GFR (Non-African American) 8.2 ml/min; Magnesium 2.1 mg/dl (1.7-2.4); Phosphorus 6.6 mg/dl (2.5-4.9); Potassium 3.9 mmol/L (3.5-5.1)
--- NOTE | 2023-09-02 08:36 | Hospitalist Progress Note ---
Date of Service September 02, 2023 Assessment & Plan (1) Altered mental status: Plan: Mr. 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 Per previous provider with addendum: At baseline, patient is independent, use walker and without deficits of mental status is baseline. Patient remained acutely confused and agitated. Patient with history of "muscle spasms" and previously on flexeril. Daughter states that he also used heat and massage to help. Acute metabolic encephalopathy - likely secondary to hydrocodone and baclofen in the setting of ESRD -10mg baclofen 5 doses in 12 hours - On gabapentin at home 100mg BID, hold - in the ED somewhat agitated and tremulous and received IV ativan -> pt quite drowsy -Received ativan IV multiple times, now ordered IM 2.5mg zyprexa 06/11 ongoing agitation Infectious work up: UA negative, blood cultures NGTD Delirium precautions cont. to closely monitor on Tele. nephrology contacted to assist w/ PD needs 08/24- pt with improved mentation, taking meds. EEG for abnormal movements, doesn't appear consistent with seizure like activity, but shaheen to dyskinesia/chorea like motions; patient's increased alertness and continued motions will limit ability for MRI Neurology consulted, appreciate recs 08/30- appears pt has episodes of sundowning. Likely component of delirium playing a role. Delirium precautions. Frequent reorientation, avoid sedating medications. 08/31 mental status seems at baseline ESRD on PD Nephrology on consult -PD started IV lasix 100mg now, plan for daily until able to take po Appreciate nephrology recs -peritoneal dialysis -laxatives and enemas to avoid peritonitis Appreciate nephrology recs Acute pain, reportedly muscle spasms History Nausea with RUQ noted at OP visit on 08/09 with pending RUQ US ordered; similar concerns in 2022 Prior US with sludge and cholelithiasis, pancreas with IPOMN 2022 Prescribed hydroxyzine at that time Was taking Flexeril with relief previously -IV tylenol and heat compress on right back Patient has long standing history of pain, and took to much pain medication. Pain Management consulted, appreciate recs -will re-assess once mental status better -contacted Pain once more on 08/24 for possible reassessment, given pt's complaints of left shoulder pain, back pain and improved mental status. -evaluated by pain on 08/25 -pain contacted once more on 08/30- recommended flexeril with nephrology's permission, tylenol and lidocaine patch for discharge for pain with outpatient pain management followup. 08/31 Discussed w/ nephrology and started flexeril, cont. to monitor 09/01 - mental status at baseline and pt still in significant pain - will increase flexeril to TID and will obtain CT abd/pelvis Persistent Atrial fibrillation with RVR received 1 dose IV metoprolol Was on IV 2.5 q6 h metoprolol Resumed PO on 08/24, metoprolol 12.5mg daily home regimen Continue Eliquis Cardiology consult for eval Elevated Troponin In setting of ESRD and A fib RVR, no chest pain or concern for active ACS Monitor on Tele Chronic baseline elevation Peak 120, downtrending with improvement of rates Chronic diastolic CHF (congestive heart failure) Chronic LBBB Appears euvolemic, continue torsemide when able to take PO IV torsemide 100mg daily, currently on hold per nephrology COPD albuterol prn DM type 2 (diabetes mellitus, type 2) with neuropathy Hgb A1c 7.4 08/2022, repeat A1C Hold oral agents and utilize NovoLog per protocol while hospitalized Hold gabapentin as above Chronic back pain, lumbar disc herniation with radiculopathy Flexeril 5mg TID ordered in OP records previously pain mgmt consult On chronic opioids, will order IV dilaudid until po at 0.25 to help stave off withdrawal, blunt pain Pain Management consulted, appreciate recs -will re-assess once mental status better -contacted Pain once more on 08/24 for possible reassessment, given pt's complaints of left shoulder pain, back pain and improved mental status. -evaluated by pain on 08/25 -pain contacted once more on 08/30- recommended flexeril with nephrology's permission, tylenol and lidocaine patch for discharge for pain with outpatient pain management followup. resumed flexeril, As above Chronic Hyponatremia Na 134, chronic, at baseline Volume mgmt via PD Chronic ANGY (iron deficiency anemia) Baseline ~9-10 Stable Gout Allopurinol 100mg daily Hypothyroidism Continue levothyroxine Depression Severe anxiety 5mg BID Buspar, Hydroxyzine at home BPH Home terazosin, resume when able DVT Px:Adamis Admission and Anticipated Discharge Date Admission Date: August 22, 2023 Subjective Pt seen in follow up of AMS after taking baclofen, he is on PD for ESRD Currently alert and oriented however in pain - discussed with nephrology y esterday - started flexeril Pain management also consulted GI consult placed for poss. GI bleed, FOBT positive Pt is currently only complaining about about pain - no fever, chills, chest pain, shortness of breath Will increase flexeril, will obtain CT scan - as he keeps complaining of severe R flank pain Review of Systems Review of Systems: All systems reviewed & are unremarkable except as noted in Subjective Physical Exam Physical Exam: General: WD/WN in NAD Psych: Appropriate mood and affect Neuro: awake, alert, able to answer simple questions appropriately, moves extremities, however reports pain w/ movement HEENT: NC/AT CV: RRR Resp: Breath sounds clear bilaterally, no increased effort of breathing. Abdomen:Soft, nontender Extremities: No edema in lower extremities bilaterally. Results & Data Results & Data Vital Signs (Past 12 Hours) Vital Signs Temp Pulse Pulse Pulse Resp BP Pulse Ox 09/02/23 07:35 99 H 09/02/23 07:19 36.7 C 94 H 19 109/74 09/02/23 03:00 36.9 C 95 H 20 116/66 96 09/02/23 00:17 90 09/01/23 23:41 36.7 C 93 H 20 93/53 L 96 O2 Del Method 09/02/23 07:35 09/02/23 07:19 Room Air 09/02/23 03:00 Room Air 09/02/23 00:17 09/01/23 23:41 Room Air Laboratory Results 09/02/23 09/02/23 09/01/23 Range/Units 07:44 05:49 20:24 WBC 7.39 (4.8-10.8) K/ul RBC 3.47 L (4.70-6.10) M/uL Hgb 10.9 L (14.0-18.0) g/dl Hct 32.2 L (42.0-52.0) % MCV 92.8 (80.0-100.0) fL MCH 31.4 (25.0-34.0) pg MCHC 33.9 (32.0-36.0) g/dL RDW Std Deviation 46.3 (36.4-46.3) fL RDW Coeff of Pooja 13.7 (11.5-14.5) % Plt Count 305 (130-400) K/uL MPV 10.0 (9.4-12.4) fL Sodium 135 L (136-145) mmol/L Potassium 3.9 (3.5-5.1) mmol/L Chloride 99 (98-107) mmol/L Carbon Dioxide 25 (21-32) mmol/L Anion Gap 11 (3-11) BUN 85 H (6-23) mg/dl Creatinine 5.86 H* (0.6-1.4) mg/dl Est Cr Clr Drug Dosing 10.0 ml/min Est GFR ( Amer) 9.5 ml/min Est GFR (Non-Af Amer) 8.2 ml/min BUN/Creatinine Ratio 14.5 (10-20) Glucose 159 H (70-99(Fasting)) mg/dl POC Glucose 141 H 179 H (70-99) mg/dl Calcium 9.2 (8.6-10.3) mg/dl Phosphorus 6.6 H (2.5-4.9) mg/dl Magnesium 2.1 (1.7-2.4) mg/dl 09/01/23 09/01/23 09/01/23 Range/Units 16:02 12:59 12:23 WBC 5.90 (4.8-10.8) K/ul RBC 3.61 L (4.70-6.10) M/uL Hgb 11.3 L (14.0-18.0) g/dl Hct 34.1 L (42.0-52.0) % MCV 94.5 (80.0-100.0) fL MCH 31.3 (25.0-34.0) pg MCHC 33.1 (32.0-36.0) g/dL RDW Std Deviation 47.4 H (36.4-46.3) fL RDW Coeff of Pooja 13.6 (11.5-14.5) % Plt Count 315 (130-400) K/uL MPV 10.0 (9.4-12.4) fL Sodium 134 L (136-145) mmol/L Potassium 4.1 (3.5-5.1) mmol/L Chloride 95 L (98-107) mmol/L Carbon Dioxide 27 (21-32) mmol/L Anion Gap 12 H (3-11) BUN 84 H (6-23) mg/dl Creatinine 5.98 H* (0.6-1.4) mg/dl Est Cr Clr Drug Dosing 9.7 ml/min Est GFR ( Amer) 9.3 ml/min Est GFR (Non-Af Amer) 8.0 ml/min BUN/Creatinine Ratio 14.0 (10-20) Glucose 218 H (70-99(Fasting)) mg/dl POC Glucose 174 H 229 H (70-99) mg/dl Calcium 9.0 (8.6-10.3) mg/dl Phosphorus (2.5-4.9) mg/dl Magnesium (1.7-2.4) mg/dl Medications Administered Current Inpatient Medications Acetaminophen (Acetaminophen 325 Mg Tab) 650 mg PO Q4H PRN PRN Reason: Pain or Fever Stop: 09/21/23 16:15 Last Admin: 09/02/23 07:47 Dose: 650 mg Albuterol (Albuterol Hfa 8 Gm Inhaler) 2 puffs INH Q4 PRN PRN Reason: Wheezing Stop: 09/21/23 18:16 Apixaban (Apixaban 2.5 Mg Tab) 2.5 mg PO BID LILI Stop: 09/21/23 20:59 Last Admin: 09/01/23 20:05 Dose: 2.5 mg Cyclobenzaprine HCl (Cyclobenzaprine Hcl 5 Mg Tab) 5 mg PO BID LILI Stop: 10/01/23 20:59 Last Admin: 09/01/23 20:05 Dose: 5 mg Dextrose (Dextrose 50% 50 Ml Syringe) 25 - 50 ml IV UD PRN; Protocol PRN Reason: Hypoglycemia Protocol Stop: 09/25/23 19:56 Docusate Sodium (Docusate Sodium 100 Mg Cap) 100 mg PO BID [facility] Stop: 09/24/23 09:44 Last Admin: 09/01/23 20:11 Dose: Not Given Glucagon (Glucagon For Inj 1 Mg Vial) 1 mg SQ UD PRN; Protocol PRN Reason: Hypoglycemia Protocol Stop: 09/25/23 19:56 Glucose (Glucose 10 Tab/Tube) 4 - 8 tab PO UD PRN; Protocol PRN Reason: Hypoglycemia Treatment Stop: 09/25/23 19:56 Glucose (Glucose 40% Gel 15 Gm Tube) 15 - 30 gm PO UD PRN; Protocol PRN Reason: Hypoglycemia Protocol Stop: 09/25/23 19:56 Hydromorphone HCl (Hydromorphone Inj 0.5 Mg/0.5 Ml Syr) 0.25 mg IV Q6H PRN PRN Reason: Severe Pain (Scale 7, 8, 9,10) Stop: 09/06/23 12:55 Last Admin: 09/02/23 06:26 Dose: 0.25 mg Lorazepam 0.5 mg/ Syringe 0.5 mls @ 2 mls/min IV Q4H PRN PRN Reason: Anxiety/Agitation Stop: 09/21/23 21:34 Last Admin: 08/28/23 18:09 Dose: 2 mls/min Insulin Aspart (Insulin Aspart Per Unit Charge) 0 units SC ACHS [facility] Stop: 09/25/23 20:59 Last Admin: 09/01/23 21:51 Dose: 2 units Lactulose (Lactulose Syrup 20 Gm/30 Ml Udc) 20 gm PO DAILY [facility] Stop: 09/27/23 08:59 Last Admin: 09/01/23 08:54 Dose: Not Given Levothyroxine Sodium (Levothyroxine Sodium 150 Mcg Tablet) 150 mcg PO DAILYBB [facility] Stop: 09/22/23 06:29 Last Admin: 09/02/23 05:31 Dose: 150 mcg Lidocaine (Lidocaine 5% 1 Patch) 1 patch TD QAM [facility] Stop: 09/28/23 10:14 Last Admin: 09/01/23 08:54 Dose: 1 patch Metoprolol Succinate (Metoprolol Succ 25mg Ext Rel Tab) 25 mg PO QAM [facility] Stop: 09/24/23 09:59 Last Admin: 09/01/23 08:53 Dose: 25 mg Miscellaneous (Carbohydrates For Hypoglycemia ) 15 - 30 gm PO UD PRN PRN Reason: Hypoglycemia Protocol Stop: 09/25/23 19:56 Miscellaneous (Remove Lidoderm Patch) 1 each N/A DAILY@2100 [facility] Stop: 09/28/23 20:59 Last Admin: 09/01/23 20:11 Dose: 1 each Olanzapine (Olanzapine Zydis 5 Mg Orally Dis. Tab) 5 mg PO BID PRN PRN Reason: Agitation Stop: 09/23/23 20:59 Last Admin: 08/31/23 21:13 Dose: 5 mg Olanzapine (Olanzapine 10 Mg/2.1 Ml Sdv) 2.5 mg IM Q4H PRN PRN Reason: Agitation Stop: 09/27/23 22:33 Phenylephrine HCl (Anusol Supp 1 Ea) 1 supp RI BID LILI Stop: 09/12/23 08:59 Polyethylene Glycol (Polyethylene (Miralax) 17 Gm Pack) 17 gm PO DAILY [facility] Stop: 09/25/23 11:14 Last Admin: 09/01/23 08:53 Dose: Not Given Potassium Chloride (Potassium Chloride 20 Meq/15 Ml Udc) 20 meq PO DAILY [facility] Stop: 09/26/23 08:59 Last Admin: 09/01/23 08:53 Dose: 20 meq Torsemide (Torsemide 100 Mg Tab) 100 mg PO QAM [facility] Stop: 09/26/23 08:59 Last Admin: 08/30/23 09:13 Dose: 100 mg
[2023-09-02] MEDS: ANUSOL SUPP 1 EA PR SCH (09:03)
--- NOTE | 2023-09-02 09:27 | Gastroenterology Progress Note ---
Date of Service September 02, 2023 Assessment & Plan (1) BRBPR (bright red blood per rectum): Plan: -Treat with Hydrocortisone supossitories BID for possible internal hemorrhoids as he does have a history of this -Continue to monitor H/H -If developing significant bleeding, would recommend CT imaging. Consider outpatient colonoscopy pending clinical course. Admission and Anticipated Discharge Date Admission Date: August 22, 2023 Subjective Patient is an 83 yo male with blood tinged stools. H/H 10.9/32.2. He denies abdominal pain. He notes he recently had issues with hemorrhoids as an outpatient and was treated with some type of ointment. This reportedly improve his symptoms of blood tinged stool. Review of Systems Constitutional: no fever and no chills Respiratory: no cough and no dyspnea Cardiovascular: no chest pain Gastrointestinal: + blood in stools; no abdominal pain Physical Exam Constitutional: well developed Respiratory: normal respiratory effort Cardiovascular: Rate/Rhythm: regular rate Gastrointestinal (Abdomen): normal bowel sounds, soft, nontender, no hepatosplenomegaly Psychiatric: Orientation: alert and oriented x 3 Results & Data Results & Data Vital Signs (Past 12 Hours) Vital Signs Temp Pulse Pulse Pulse Resp BP Pulse Ox 09/02/23 07:35 99 H 09/02/23 07:19 36.7 C 94 H 19 109/74 09/02/23 03:00 36.9 C 95 H 20 116/66 96 09/02/23 00:17 90 09/01/23 23:41 36.7 C 93 H 20 93/53 L 96 O2 Del Method 09/02/23 07:35 09/02/23 07:19 Room Air 09/02/23 03:00 Room Air 09/02/23 00:17 09/01/23 23:41 Room Air PG Care Time/CCT Total # of Minutes Spent Total Time Spent with Patient: Total time spent is greater than 50% in coordination of care (as documented) at patient's floor/unit and/or counseling patient: Coding Level of Care Code 97318 SUB INP/OBS CARE 3/50MIN Diagnoses BRBPR (bright red blood per rectum) K62.5
[2023-09-02] MEDS: CYCLOBENZAPRINE HCL 5 MG TAB PO SCH (14:04)
--- NOTE | 2023-09-02 18:49 | Dialysis Progress Note ---
Date of Service September 02, 2023 Assessment & Plan (1) ESRD (end stage renal disease): Plan: Fortunately no e/o fluid overload or major electrolyte problem. ABG showing a pH of 7.25 is totally acceptable in ESRD. He is tolerating PD well. His helps w/ it at home and is ready to reassume that part of his care per case mgt notes. continue PD on daylight cycler regimen while in house. mild tachycardia ongoing > torse on hold as of 08/30 AM (also more hyponatremia) and run again on all 1.5% bags today daily bmp care coordinated w/ Dr Prince regarding pain mgt meds, volume status, dialysis and labs plan (2) Altered mental status: Plan: he had too many Baclofen. this muscle relaxant is contraindicated in Dialysis patient and should not be used ever. hemodialysis is very good in clearing it but not as much data with PD. he is still somewhat confused and a bit restless but not agitated. asking about how to treat his back pain > per pain mgt; flexeril has apparently been well tolerated in past seems mor eoriented/appropriate today Admission and Anticipated Discharge Date Admission Date: August 22, 2023 Subjective seen midday on dialysis. back pain better controlled today. for CT to evaluate abdominal pain. reports 2 episodes both over 2-3 wks back with bilious emesis x 2; none since. no edema, no sob. no concerns about dialysis Review of Systems 2 Review of Systems: All systems reviewed & are unremarkable except as noted in Subjective Physical Exam 2 Constitutional: well developed, well nourished and cooperative; no acute distress Eyes: EOM intact bilaterally ENMT: Ears: no external ear abnormality Nose: no external nose abnormality Mouth: + dry oral mucous membranes Neck: no nuchal rigidity Respiratory: normal respiratory effort Auscultation: + diminished lung sounds Cardiovascular: Rate/Rhythm: regular rhythm and + tachycardic (in 100s) E xtremities: no edema Gastrointestinal (Abdomen): Inspection/Auscultation: abdomen normal to inspection (PD catheter present) and normal bowel sounds P ercussion/Palpation: abdomen soft; abdomen nontender Musculoskeletal: Extremities: strength 5/5 throughout Skin: no rashes, warm and dry Neurologic: castro, fluent speech, no tremor Results & Data Vital Signs (Past 12 Hours) Vital Signs Temp Pulse Pulse Pulse Resp BP Pulse Ox 04/25/24 15:33 36.7 C 106 H 18 09/02/23 15:33 36.7 C 106 H 18 110/76 97 09/02/23 15:32 93 H 09/02/23 11:39 36.7 C 101 H 20 122/61 95 09/02/23 08:00 09/02/23 07:55 36.7 C 95 H 21 110/68 09/02/23 07:35 99 H 09/02/23 07:19 36.7 C 94 H 19 109/74 O2 Del Method 09/02/23 15:33 09/02/23 15:33 Room Air 09/02/23 15:32 09/02/23 11:39 Room Air 09/02/23 08:00 Room Air 09/02/23 07:55 09/02/23 07:35 09/02/23 07:19 Room Air Laboratory Results 09/02/23 05:49 09/02/23 05:49
--- NOTE | 2023-09-02 20:09 | CT Scan Report ---
CT OF THE ABDOMEN AND PELVIS WITHOUT CONTRAST CLINICAL HISTORY: R flank pain ? GI bleed COMPARISON STUDY: CT of the abdomen and pelvis September 06, 2022. TECHNIQUE: Axial images of the abdomen and pelvis were obtained without IV contrast. Images were revi ewed in the axial, sagittal, and coronal planes. Automated exposure control was utilized for the judit dy. A dose lowering technique was utilized adhering to the principles of ALARA. FINDINGS: Elevation of the right hemidiaphragm is unchanged. Right lower lobe and right middle lobe o pacity is unchanged and represents atelectasis. Pneumatosis, free air or portal venous gas is present . 8 right renal calculi are present. There are no ureteral calculi. There is no hydronephrosis. Evalu ation of the abdomen and pelvis is suboptimal on this unenhanced exam. A few subcentimeter hepatic le sions are unchanged. Spleen, adrenal glands are unremarkable. A 2.8 cm cystic lesion within the pancr eatic tail with peripheral calcifications is similar to prior exam. This may reflect a side branch IP MN. Low-attenuation bilateral renal lesions are similar to prior exam. These are suboptimally assesse d on this unenhanced exam but favor cysts. A 1.4 cm indeterminate hyperdense right midpole lesion on image 173 is similar to prior study. There is no evidence for a bowel obstruction. Extensive colonic diverticulosis is present without evidence for acute diverticulitis. Tip of the peritoneal dialysis c atheter is within the right mid abdomen. A small amount of fluid within the abdomen and pelvis is lik karen related to the catheter. Trace pneumoperitoneum is also likely related to the indwelling catheter . No fluid collections are present. No acute fractures within the visualized skeletal structures are present. There is no retroperitoneal hematoma. The appendix is normal. The cecum is within the centra l abdomen. There are postoperative findings within the spine. IMPRESSION: 1. Trace pneumoperitoneum, likely related to the peritoneal dialysis catheter. A small amount of abdo steve and pelvic fluid is also likely related to the catheter. 2. Extensive colonic diverticulosis. No evidence for acute diverticulitis. No bowel obstruction. 3. Punctate right renal calculi. No ureteral calculi. No hydronephrosis. ACT 112: Negative or not required by law. Electronically signed by: Logan Zuñiga M.D. 09/02/2023 8:06 PM
[2023-09-03] MEDS: TERAZOSIN HCL 1 MG CAP PO SCH (01:18)
[2023-09-03 06:18] LABS: Hematocrit (blood only) 31.7 % (42.0-52.0); Hemoglobin 10.3 g/dl (14.0-18.0); Mean Corpuscular Hemoglobin 30.5 pg (25.0-34.0); Mean Corpuscular Hgb Conc 32.5 g/dL (32.0-36.0); Mean Corpuscular Volume 93.8 fL (80.0-100.0); Mean Platelet Volume 10.2 fL (9.4-12.4); Platelet Count 317 K/uL (130-400); RDW Coefficient of Variation 13.7 % (11.5-14.5); RDW Standard Deviation 46.7 fL (36.4-46.3); Red Blood Count 3.38 M/uL (4.70-6.10); White Blood Count 7.29 K/ul (4.8-10.8)
[2023-09-03 07:05] LABS: BUN Creatinine Ratio 14.5 (10-20); Calcium 8.5 mg/dl (8.6-10.3); Creatinine Clr Calc Pharmacy 9.4 ml/min; Est GFR (African American) 8.8 ml/min; Est GFR (Non-African American) 7.6 ml/min; Magnesium 2.1 mg/dl (1.7-2.4); Phosphorus 6.6 mg/dl (2.5-4.9); Potassium 4.3 mmol/L (3.5-5.1)
[2023-09-03] MEDS ORDERED: busPIRone 5 MG TAB PO SCH (09:30)
--- NOTE | 2023-09-03 10:33 | Dialysis Progress Note ---
Date of Service September 03, 2023 Assessment & Plan Admission and Anticipated Discharge Date Admission Date: August 22, 2023 Subjective Assessment & Plan (1) ESRD (end stage renal disease): Plan: Fortunately no e/o fluid overload or major electrolyte problem. ABG showing a pH of 7.25 is totally acceptable in ESRD. He is tolerating PD well. His helps w/ it at home and is ready to reassume that part of his care per case mgt notes. continue PD on daylight cycler regimen while in house. daily bmp restart torsemide--slightly lo na is chronic and not a problem. Need to make plan for Discharge as he has been now for a long time Continue all 1.5% for now. (2) Altered mental status: Plan: he had too many Baclofen. this muscle relaxant is contraindicated in Dialysis patient and should not be used ever. hemodialysis is very good in clearing it but not as much data with PD. he is still somewhat confused and a bit restless but not agitated. asking about how to treat his back pain. would not do muscle relaxants given ESRD Plus his advanced age . maybe back injection and/or more opioids. seems more oriented/appropriate today Subjective seen for peritoneal dialysis. No issues. back pain better controlled today. for CT to evaluate abdominal pain. reports 2 episodes both over 2-3 wks back with bilious emesis x 2; none since. no edema, no sob. no concerns about dialysis Review of Systems Review of Systems: All systems reviewed & are unremarkable except as noted in Subjective Physical Exam Constitutional: well developed, well nourished and cooperative; no acute distress Eyes: EOM intact bilaterally ENMT: Ears: no external ear abnormality Nose: no external nose abnormality Mouth: + dry oral mucous membranes Neck: no nuchal rigidity Respiratory: normal respiratory effort Auscultation: + diminished lung sounds Cardiovascular: Rate/Rhythm: regular rhythm and + tachycardic (in 100s) Extremities: no edema Gastrointestinal (Abdomen): Inspection/Auscultation: abdomen normal to inspection (PD catheter present) and normal bowel sounds Percussion/Palpation: abdomen soft; abdomen nontender Musculoskeletal: Extremities: strength 5/5 throughout Skin: no rashes, warm and dry Neurologic: castro, fluent speech, no tremor Results & Data Vital Signs (Past 12 Hours) Vital Signs Temp Pulse Pulse Pulse Resp BP Pulse Ox 09/03/23 08:20 37.0 C 77 17 107/74 09/03/23 08:00 110 H 09/03/23 07:45 37.0 C 77 17 107/74 98 09/03/23 03:00 37.4 C 76 19 90/65 L 96 09/02/23 23:00 36.9 C 78 18 90/53 L 96 O2 Del Method 09/03/23 08:20 09/03/23 08:00 09/03/23 07:45 Room Air 09/03/23 03:00 Room Air 09/02/23 23:00 Room Air
[2023-09-03] MEDS: HYDROCODONE/ACETAMOPHEN 5/325MG TAB PO PRN (11:04)
[2023-09-03] MEDS: NEPHROCAPS PO SCH (12:07)
--- NOTE | 2023-09-03 14:56 | Discharge Summary ---
Date of Service September 03, 2023 Admission HPI Per Admitting Provider Pt is an 83 M w/ ESRD on dialysis, Afib, DM type 2, COPD, CHF, HTN, anxiety, hypothyroidism, lumbar stenosis/chronic back pain who comes via EMS with altered mental status, tremors. Pt was prescribed baclofen in addition to his hydrocodone for "bad muscle spasms". He reported to ED physician that he took 5 pills of baclofen this AM. He was somewhat agitated and tremorous, also in Afin w/ RVR in the ED and received IV Ativan by ED physician. Currently patient is lying in bed, very drowsy, however appears comfortable. He is answering simple questions, and denies currently any pain, however history is unreliable as patient is not fully woken up. Patient was seen with his RN at the bedside. Pt denies any pain, denies any chest pain, shortness of breath, abd. pain. Discussed with over the phone, and she confirms the history of backache and muscle spasms. Patient has been taking hydrocodone, however felt that it was not helping enough, and so he was prescribed baclofen. Patient's says that he took too many, could not sleep all night, that he fell asleep and she was unable to wake him up so she called EMS. Prior to this she states that patient was feeling otherwise well meaning without any fevers chills chest pain palpitations shortness of breath or any other symptoms of any illness. Admission Exam Per Admitting Provider Constitutional: WD/WN, vitals as above (pt very drowsy) Eyes: PERRL, conjunctivae normal, anicteric sclerae ENMT: external ear and nose normal, oropharynx normal Neck: normal visual inspection Respiratory: normal respiratory effort, lungs clear to auscultation Cardiovascular: irregular Chest (Breasts): Chest: normal inspection of chest Gastrointestinal (Abdomen): normal bowel sounds, soft, nontender, no hepatosplenomegaly Musculoskeletal: no cyanosis or clubbing, extremities motor strength 5/5 Skin: no rashes, warm and dry Neurologic: drowsy but arousable, speech slow but fluent, moves extremities Lymphatic: minimal LE edema Principal Diagnosis Acute metabolic encephalopathy secondary to baclofen use in the setting of ESRD on PD Discharge Exam General: WD/WN in NAD Psych: Appropriate mood and affect Neuro: awake, alert, able to answer simple questions appropriately, moves extremities, however reports pain w/ movement HEENT: NC/AT CV: RRR Resp: Breath sounds clear bilaterally, no increased effort of breathing. Abdomen:Soft, nontender Extremities: No edema in lower extremities bilaterally. Discharge Data Allergies Allergy/AdvReac Type Severity Reaction Status Date / Time clonidine Allergy Unknown allergic Unverified 08/22/23 15:41 to all but 1 brand carvedilol Allergy Hives Verified 08/22/23 15:41 losartan Allergy Unknown Verified 08/22/23 15:41 ANJELICA Inhibitors AdvReac Intermediate INTOLERANCE Verified 08/22/23 15:41 PER MD ORDER allopurinol AdvReac Intermediate severe abd Verified 08/22/23 15:41 pain Beta-Blockers AdvReac Intermediate INTOLERANCE Verified 08/22/23 15:41 (Beta-Adrenergic Bloc PER DR ARELLANO doxazosin AdvReac Intermediate INTOLERANCE Verified 08/22/23 15:[address] ARELLANO [id number] Reductase AdvReac Intermediate INTOLERANCE Verified 08/22/23 15:41 Inhibitor PER [[id number] Reductase ADAN Inhibitor] citalopram AdvReac Unknown Verified 08/22/23 15:41 hydralazine AdvReac diarrhea, Verified 08/22/23 15:41 testicular pain hydrochlorothiazide AdvReac hyponatremi Verified 08/22/23 15:41 a lisinopril AdvReac Cough Verified 08/22/23 15:41 simvastatin [From Zocor] AdvReac Muscle Pain Verified 08/22/23 15:41 sitagliptin [From Januvia] AdvReac restlessnes Verified 08/22/23 15:41 s Consultations 08/22/23 14:41 Consult Nephrology Routine 08/22/23 14:47 ED Decision to Admit Stat 08/23/23 17:20 Consult Pain Management Routine 08/24/23 09:14 Consult Neurology Routine 08/31/23 09:55 Consult Pain Management Routine 08/31/23 16:23 Consult Gastroenterology Routine Ordered Studies 09/02/23 13:02 CT abd pelvis wo con Urgent FINDINGS: Elevation of the right hemidiaphragm is unchanged. Right lower lobe and right middle lobe opacity is unchanged and represents atelectasis. Pneumatosis, free air or portal venous gas is present. 8 right renal calculi are present. There are no ureteral calculi. There is no hydronephrosis. Evaluation of the abdomen and pelvis is suboptimal on this unenhanced exam. A few subcentimeter hepatic lesions are unchanged. Spleen, adrenal glands are unremarkable. A 2.8 cm cystic lesion within the pancreatic tail with peripheral calcifications is similar to prior exam. 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 Low-attenuation bilateral renal lesions are similar to prior exam. These are suboptimally assessed on this unenhanced exam but favor cysts. A 1.4 cm indeterminate hyperdense right midpole lesion on image 173 is similar to prior study. There is no evidence for a bowel obstruction. Extensive colonic diverticulosis is present without evidence for acute diverticulitis. Tip of the peritoneal dialysis catheter is within the right mid abdomen. A small amount of fluid within the abdomen and pelvis is likely related to the catheter. Trace pneumoperitoneum is also likely related to the indwelling catheter. No fluid collections are present. No acute fractures within the visualized skeletal structures are present. There is no retroperitoneal hematoma. The appendix is normal. The cecum is within the central abdomen. There are postoperative findings within the spine. IMPRESSION: 1. Trace pneumoperitoneum, likely related to the peritoneal dialysis catheter. A small amount of abdominal and pelvic fluid is also likely related to the catheter. 2. Extensive colonic diverticulosis. No evidence for acute diverticulitis. No bowel obstruction. 3. Punctate right renal calculi. No ureteral calculi. No hydronephrosis. Hospital Course (1) Altered mental status: Mr. David is an 83 year old gentleman with history of DM type II, hy pothyroidism, pancreatic cyst, chronic HFpEF, atrial fibrillation on Eliquis, HTN, LBBB, ESRD with peritoneal dialysis catheter in place, history of thyroid cancer, history of prostate cancer who is admitted for altered mental status after ingesting 5 baclofen tablets in 12 hours due to muscle spasms. Per previous provider with addendum: At baseline, patient is independent, use walker and without deficits of mental status is baseline. Patient remained acutely confused and agitated. Patient with history of "muscle spasms" and previously on flexeril. Daughter states that he also used heat and massage to help. Acute metabolic encephalopathy - likely secondary to hydrocodone and baclofen in the setting of ESRD -10mg baclofen 5 doses in 12 hours - On gabapentin at home 100mg BID, hold - in the ED somewhat agitated and tremulous and received IV ativan -> pt quite drowsy -Received ativan IV multiple times, now ordered IM 2.5mg zyprexa 06/11 ongoing agitation Infectious work up: UA negative, blood cultures NGTD Delirium precautions cont. to closely monitor on Tele. nephrology contacted to assist w/ PD needs 08/24- pt with improved mentation, taking meds. EEG for abnormal movements, doesn't appear consistent with seizure like activity, but shaheen to dyskinesia/chorea like motions; patient's increased alertness and continued motions will limit ability for MRI Neurology consulted, appreciate recs 08/30- appears pt has episodes of sundowning. Likely component of delirium playing a role. Delirium precautions. Frequent reorientation, avoid sedating medications. 08/31 mental status seems at baseline ESRD on PD Nephrology on consult -PD started IV lasix 100mg now, plan for daily until able to take po Appreciate nephrology recs -peritoneal dialysis -laxatives and enemas to avoid peritonitis Appreciate nephrology recs Acute pain, reportedly muscle spasms History Nausea with RUQ noted at OP visit on 08/09 with pending RUQ US ordered; similar concerns in 2022 Prior US with sludge and cholelithiasis, pancreas with IPOMN 2022 Prescribed hydroxyzine at that time Was taking Flexeril with relief previously -IV tylenol and heat compress on right back Patient has long standing history of pain, and took to much pain medication. Pain Management consulted, appreciate recs -will re-assess once mental status better -contacted Pain once more on 08/24 for possible reassessment, given pt's complaints of left shoulder pain, back pain and improved mental status. -evaluated by pain on 08/25 -pain contacted once more on 08/30- recommended flexeril with nephrology's permission, tylenol and lidocaine patch for discharge for pain with outpatient pain management followup. 08/31 Discussed w/ nephrology and started flexeril, cont. to monitor 09/01 - mental status at baseline and pt still in significant pain - will increase flexeril to TID and will obtain CT abd/pelvis 09/02 CT abd/pelvis - 1. Trace pneumoperitoneum, likely related to the peritoneal dialysis catheter. A small amount of abdominal and pelvic fluid is also likely related to the catheter. 2. Extensive colonic diverticulosis. No evidence for acute diverticulitis. No bowel obstruction. 3. Punctate right renal calculi. No ureteral calculi. No hydronephrosis. Discussed w/ nephrology - will discharge on flexeril daily prn - pt to further follow up with pcp and poss. pain clinic. Pt's mental status at baseline and tolerating flexeril so far. Advised pt not to use any medication in excess and only as prescribed, pt verbalized understanding. Baclofen stopped - and not to be resumed. Persistent Atrial fibrillation with RVR received 1 dose IV metoprolol Was on IV 2.5 q6 h metoprolol Resumed PO on 08/24, metoprolol 12.5mg daily home regimen Continue Eliquis Cardiology consult for eval resolved Elevated Troponin In setting of ESRD and A fib RVR, no chest pain or concern for active ACS Monitor on Tele Chronic baseline elevation Peak 120, downtrending with improvement of rates Chronic diastolic CHF (congestive heart failure) Chronic LBBB Appears euvolemic, continue torsemide resumed COPD albuterol prn DM type 2 (diabetes mellitus, type 2) with neuropathy Hgb A1c 7.4 08/2022, repeat A1C Hold oral agents and utilize NovoLog per protocol while hospitalized Hold gabapentin as above Chronic back pain, lumbar disc herniation with radiculopathy Flexeril 5mg TID ordered in OP records previously pain mgmt consult On chronic opioids, will order IV dilaudid until po at 0.25 to help stave off withdrawal, blunt pain Pain Management consulted, appreciate recs -will re-assess once mental status better -contacted Pain once more on 08/24 for possible reassessment, given pt's complaints of left shoulder pain, back pain and improved mental status. -evaluated by pain on 08/25 -pain contacted once more on 08/30- recommended flexeril with nephrology's permission, tylenol and lidocaine patch for discharge for pain with outpatient pain management followup. resumed flexeril, As above Chronic Hyponatremia Na 134, chronic, at baseline Volume mgmt via PD Chronic ANGY (iron deficiency anemia) Baseline ~9-10 Stable Gout Allopurinol 100mg daily Hypothyroidism Continue levothyroxine Depression Severe anxiety 5mg BID Buspar, Hydroxyzine at home BPH Home terazosin, resumed Total Time Total Time Spent Total Time Spent (In Minutes): 40 Discharge Plan Discharge Items Patient Disposition: Home - Self-Care Reason For Visit: AMS Discharge Diagnosis: Acute metabolic encephalopathy secondary to baclofen use in the setting of ESRD on PD Activity: Per Instructions section Non-emergency contact: Primary Care Provider, Specialist, Operating Room Nurse and Pain Management Call non-emergency contact if: you have any medication questions and your symptoms worsen Follow-up/Referrals: Pramod Damian MD [Primary Care Provider] - 09/07/23 5:40 pm (Date & Time 09/07/2023 5:40 PM Provider Pramod Damian MD [facility] ) Diet: Dialysis Renal Addtl Attending Provider Instructions: Follow up with your primary care physician, cutter grinder and possibly pain management doctor. The appointment with your primary care doctor was scheduled for you for 09/07/2023. STOP using baclofen. For back pain, you can take tylenol and use a lidocaine patch, heat. You can also continue using hydrocodone prescribed by your physician. You can take flexeril once a day as needed. Pending Studies at Discharge: No Stand-Alone Forms: My [facility] viavoo, Smoking Cessation Medications and DC Order Prescriptions: New metoprolol succinate 25 mg Tablet Extended Release 24 Hr 25 mg PO QAM Qty: 30 0RF cyclobenzaprine 5 mg Tablet 5 mg PO HS PRN (Reason: muscle spasm) Qty: 7 0RF Continued allopurinol 100 mg Tablet 100 mg PO QAM levothyroxine 150 mcg Tablet 150 mcg PO DAILYBB torsemide 100 mg tablet 100 mg PO QAM docusate sodium 100 mg Tablet 100 mg PO [facility]HS hydrocodone-acetaminophen 5-325 mg tablet 1 tab PO UD PRN (Reason: Pain) terazosin 1 mg capsule 1 mg PO HS glipizide 10 mg tablet 10 mg PO [facility]HS Eliquis 2.5 mg tablet 2.5 mg PO [facility] buspirone 5 mg tablet 5 mg PO UD hydroxyzine HCl 25 mg tablet 25 mg PO UD Jessie-Joycelyn 0.8 mg tablet 1 tab PO DAILY lactulose 10 gram/15 mL solution 15 ml PO BID PRN (Reason: severe constipation) potassium chloride 10 mEq tablet,ER particles/crystals 20 meq PO BID albuterol sulfate 90 mcg/actuation HFA aerosol inhaler 2 puff INHALATION Q4 PRN (Reason: Wheezing) Discontinued baclofen 5 mg tablet 5 mg PO UD Discharge Orders: Discharge Order (Routine); Ordered 09/03/23 Ordered By: Yan Guajardo/Other Patient Handouts: Managing Type 2 Diabetes Admission Data Admit Date/Time: 08/22/23 16:19 Attending Provider: Yan Prince Admit Provider: Yan Prince Primary Care Provider: Pramod Damian Other Providers: Vasiliy Calderón; Yan Prince; Tiffany Arroyo; Ze Fontaine; [facility]; Liu Segura; Cristian Bynum Other Interventions: Discharge Summary Assessment (RN) Last Done: 09/03/23 15:56
[2023-09-03] MEDS ORDERED: CYCLOBENZAPRINE HCL 5 MG TAB PO PRN (15:28)
== END 2023-09-03 20:08 | disposition home health service (06) | DRG 917 ==
LOC: ED 11:55 → 4W 16:19 → SUATTDRO 16:19 → 4W 18:09
DX: E03.9 Hypothyroidism, unspecified; Z79.01 Long term (current) use of anticoagulants; Y92.009 Unspecified place in unspecified non-institutional (private) residence as the place of occurrence of the external cause; E11.22 Type 2 diabetes mellitus with diabetic chronic kidney disease; I27.20 Pulmonary hypertension, unspecified; N40.0 Benign prostatic hyperplasia without lower urinary tract symptoms; K64.9 Unspecified hemorrhoids; Z88.8 Allergy status to other drugs, medicaments and biological substances; N18.6 End stage renal disease; F32.9 Major depressive disorder, single episode, unspecified; E86.0 Dehydration; T42.8X1A Poisoning by antiparkinsonism drugs and other central muscle-tone depressants, accidental (unintentional), initial encounter; I13.2 Hypertensive heart and chronic kidney disease with heart failure and with stage 5 chronic kidney disease, or end stage renal disease; F41.9 Anxiety disorder, unspecified; J44.9 Chronic obstructive pulmonary disease, unspecified; I50.32 Chronic diastolic (congestive) heart failure; I48.92 Unspecified atrial flutter; I48.21 Permanent atrial fibrillation; Z79.890 Hormone replacement therapy; G93.41 Metabolic encephalopathy; I44.7 Left bundle-branch block, unspecified; Z98.1 Arthrodesis status; M10.9 Gout, unspecified; R79.89 Other specified abnormal findings of blood chemistry; T40.2X1A Poisoning by other opioids, accidental (unintentional), initial encounter; D50.9 Iron deficiency anemia, unspecified; E87.1 Hypo-osmolality and hyponatremia; M51.16 Intervertebral disc disorders with radiculopathy, lumbar region

== ENCOUNTER 2023-11-16 00:36 | Inpatient (IN) ==
--- NOTE | 2023-11-16 00:49 | Emergency Department Note ---
Impression & Plan Diverticulitis, Abdominal pain, Acute hyponatremia, End-stage renal disease on peritoneal dialysis, Pneumoperitoneum ED Provider Note NAME: BJORN ROSARIO AGE: 83 SEX: M : 1940 ARRIVES VIA: Walk-In INFORMANT: Patient, daughter, triage note ED PROVIDER(S): Benito Garcia MD CHIEF COMPLAINT: Abdominal pain MEDICAL DECISION MAKING: Patient presents due to concern for abdominal pain. IV was established and blood work was obtained along with CT of the abdomen pelvis without contrast. Patient declined any pain medication at this time. The patient was ordered IV Lopressor as the patient had not taken his home dose of metoprolol tartrate prior to arrival. Work shows a normal white count hemoglobin 11. The patient's platelet count is unremarkable. The patient's kidney function grade is 6.93. Hyponatremia noted at 126. BSG at 292. Lipase 168 procalcitonin not elevated lactate normal. Patient was ordered IV fluids after further discussion the patient was still having pain so IV over Mab was ordered. Patient CT abdomen pelvis that showed diverticulitis. There is free air within the abdomen and perforated viscus cannot be ruled out. Pneumoperitoneum could be secondary to the patient's peritoneal dialysis catheter. However, given this concern I did speak the on-call general surgery team Wero Loo PA-C under Dr. Lozoya. I did speak and it inform the patient of the findings and recommendations. The patient was ordered IV Zosyn and patient was ordered IV fentanyl 25 mcg as the patient was still having pain. I also did speak with Dr. Briceño and the patient was admitted to the medicine service Discussion w/ other healthcare providers: Wero Loo PA-C with Dr. Lozoya General surgery Dr. Briceño inpatient medicine service Prior /Outside records reviewed: I reviewed a discharge summary from September 03, [address] Prince. Patient with a known history of ESRD on dialysis A-fib type 2 diabetes COPD CHF hypertension hypothyroidism anxiety lumbar stenosis chronic back pain who presented with altered mental status and tremors. Patient was diagnosed with acute metabolic encephalopathy likely secondary to hydrocodone and baclofen in the setting of ESRD. Patient with history of peritoneal dialysis. Differential diagnosis: SBP, appendicitis, testicular torsion, UTI, diverticulitis, obstruction, renal colic, mesenteric adenitis, enteririts, PUD, pancreatitis, biliary pathology, hernia, volvulus, constipation, as well as other pathologies were considered. Diagnostics, as interpreted by me: ECG: A-fib with RVR, rate 122, wide QRS with left bundle branch block pattern. Left axis deviation. No obvious sgarbossa criteria.A-fib is old rate is increased compared to prior overall morphology appears grossly unchanged From comparison EKG from August 24, 2023 Cardiac monitoring: An order was placed for continuous cardiac monitoring. The monitor shows a rate of 105 with tachycardic and irregularly irregular rhythm. Patient was placed on pulse oximetry Medical decision rules: None Imaging studies: I informally interpreted the patient's CT abdomen pelvis does show pneumoperitoneum with formal report to follow. HPI: Patient presents due to concern for left-sided abdominal pain. The patient states that it initially began yesterday and has been constant and thus presented here for further evaluation and treatment. Patient denies any inciting cause but was concerned about the possibility of kidney stones. The patient denies any blood in the urine. The patient has had blood with wiping after having a bowel movement but has a known history of hemorrhoids. Patient denies any chest pains or shortness of breath. No upper respiratory symptoms. Patient denies any nausea vomiting. The patient did take some Excedrin to try to help with his pain. Patient does have a known history of ESRD on PD and most recently completed this at 10:30 PM. Patient denies history of SBP. Patient did sustain a fall several weeks ago where he fell into a kruse onto his back. The patient did require EMS to be helped up and went into the home thereafter. Patient does make a small amount of urine still. He that he is compliant with his medications. Patient does have other prescription pain medication but states that he takes it "he cannot get off it." PAST MEDICAL HISTORY: See Below PAST SURGICAL HISTORY: See Below SOCIAL HISTORY: See Below HOME MEDICATIONS: See Below ALLERGIES: See Below VITALS: See Below PHYSICAL EXAMINATION: GENERAL: NAD, non-toxic. EYE EXAM: Normal conjunctiva. PERRL, no anisocoria and EOM's grossly intact w/o pain. OROPHARYNX: Moist mucus membranes, grossly normal dentition. NECK: Trachea midline, no stridor. Supple, no nuchal rigidity, no adenopathy, non-tender. No signs of meningismus. FROM of the neck with good chin to chest and neck extension. LUNGS: Clear to auscultation. Normal chest wall mechanics. HEART: Tachycardic and irregularly irregular, no MRG. ABDOMEN: Abdomen soft, diffuse abdominal pain throughout, PD catheter located in the right lower abdomen, no masses, no rebound or guarding. BACK: No CVA TTP. SKIN: No rashes and no bruising. UPPER EXTREMITIES: Upper extremities are grossly normal. LOWER EXTREMITIES: Grossly normal, no edema. NEURO EXAM: A&O x3, cranial nerves II-XII grossly intact, normal speech, moves all 4 extremities. 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, instrumented Adjustment disorder with depressed mood Acute right flank pain (Acute) RUQ abdominal pain (Acute) Renal failure (Acute) Anemia (Acute) Gall stones (Acute) Cholelithiasis Kidney lesion Pancreatic cyst ANGY (iron deficiency anemia) ESRD (end stage renal disease) Peritoneal dialysis catheter in situ Chronic diastolic CHF (congestive heart failure) Atrial fibrillation Hypothyroidism DM type 2 (diabetes mellitus, type 2) Acute right flank pain (Acute) Elevated lipase (Acute) Hyponatremia (Acute) Hypertension (Chronic) Medical History Gout Pulmonary hypertension LBBB (left bundle branch block) COPD (chronic obstructive pulmonary disease) Spinal stenosis Family History Other Diabetes Hypertension Social History Smoking Status: Former smoker Cigarettes Per Day: 10; Smoking End Date: 35 years ago; Second Hand Exposure: No; Do You Dip or Chew Tobacco: No; Hx Alcohol Use: No Hx Substance Use: No Preferred Language: Iraqi Communication Ability: Effective 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 Beliefs That Will Affect Care: None marital status: Current Living Situation: Spouse Other Information That Helps Us Care for You: No Feels Safe at Home: Yes Safety Concerns: Feels Safe At This Time Assistive Devices: Cane, Denture - Upper, Denture - Lower and Walker Allergies Allergies Allergy/AdvReac Type Severity Reaction Status Date / Time clonidine Allergy Unknown allergic Unverified 11/16/23 02:23 to all but 1 brand carvedilol Allergy Hives Verified 11/16/23 02:23 losartan Allergy Unknown Verified 11/16/23 02:23 ANJELICA Inhibitors AdvReac Intermediate INTOLERANCE Verified 11/16/23 02:23 PER MD SALAZAR allopurinol AdvReac Intermediate severe abd Verified 11/16/23 02:23 pain Beta-Blockers AdvReac Intermediate INTOLERANCE Verified 11/16/23 02:23 (Beta-Adrenergic Bloc PER DR ARELLANO doxazosin AdvReac Intermediate INTOLERANCE Verified 11/16/23 02:[address] ARELLANO [id number]-HaO Reductase AdvReac Intermediate INTOLERANCE Verified 11/16/23 02:23 Inhibitor PER [Xbjgcdc-[id number]-Iey Reductase ADAN Inhibitor] citalopram AdvReac Unknown Verified 11/16/23 02:23 hydralazine AdvReac diarrhea, Verified 11/16/23 02:23 testicular pain hydrochlorothiazide AdvReac hyponatremi Verified 11/16/23 02:23 a lisinopril AdvReac Cough Verified 11/16/23 02:23 simvastatin [From Zocor] AdvReac Muscle Pain Verified 11/16/23 02:23 sitagliptin [From Januvia] AdvReac restlessnes Verified 11/16/23 02:23 s Home Meds Home Medications Medication Instructions Recorded Confirmed allopurinol 100 mg tablet 100 mg PO QAM 02/25/18 11/16/23 levothyroxine 150 mcg tablet 150 mcg PO DAILYBB 08/12/20 11/16/23 torsemide 100 mg tablet 100 mg PO QAM 08/29/22 11/16/23 albuterol sulfate 90 mcg/actuation 2 puff inhalation Q4 PRN Wheezing 08/22/23 11/16/23 aerosol inhaler apixaban 2.5 mg tablet (Eliquis) 2.5 mg PO AMHS 08/22/23 11/16/23 buspirone 5 mg tablet 5 mg PO Q4 PRN Anxiety 08/22/23 11/16/23 glipizide 10 mg tablet 10 mg PO AMHS 08/22/23 11/16/23 hydrocodone 5 mg-acetaminophen 325 1 tab PO Q6 PRN Pain 08/22/23 11/16/23 mg tablet hydroxyzine HCl 25 mg tablet 25 mg PO UD 08/22/23 11/16/23 lactulose 10 gram/15 mL oral 15 ml PO BID PRN severe 08/22/23 11/16/23 solution constipation potassium chloride 10 mEq 20 meq PO .HOLD 08/22/23 11/16/23 tablet,extended release(part/cryst) terazosin 1 mg capsule 1 mg PO HS 08/22/23 11/16/23 vitamin B complex-vitamin C-folic 1 tab PO DAILY 08/22/23 11/16/23 acid 0.8 mg tablet (Jessie-Joycelyn) cholecalciferol (vitamin D3) 25 50 mcg PO QAM 11/16/23 11/16/23 mcg (1,000 unit) tablet (Vitamin D3) hydrocortisone 2.5 % topical cream 1 applic NV BID PRN Hemorrhoids 11/16/23 11/16/23 with perineal applicator (Anusol-HC) metoprolol succinate 25 mg 12.5 mg PO QAM 11/16/23 11/16/23 tablet,extended release 24 hr ondansetron 4 mg disintegrating 4 mg translingual Q8 PRN Nausea 11/16/23 11/16/23 tablet Results & Data (ED) Vital Signs Vital Signs - 24 hr 11/16/23 00:38 11/16/23 01:07 11/16/23 01:20 Temperature 37.2 C Temperature Source Temporal Artery Scan Pulse Rate 112 H 115 H Pulse Rate [Apical] 122 H Pulse Rhythm Pulse Rhythm [Apical] Irregular Respiratory Rate 18 22 Respiratory Effort / Characteristics Non-Labored Non-Labored Spontaneous Respiratory Depth Normal Normal Respiratory Pattern Regular Regular Blood Pressure 113/66 Blood Pressure [Right Arm] 172/139 H Blood Pressure Mean 81 Blood Pressure Mean [Right Arm] 150 Blood Pressure Position [Right Arm] Sitting Pulse Oximetry 97 95 Oxygen Delivery Method Room Air Room Air Sepsis Recent Fever Within 48 Hours No Sepsis New/Unexplained Change in Mental Status N/A Sepsis Action Taken by Nursing No Action Required 11/16/23 01:20 11/16/23 01:31 11/16/23 01:50 Temperature Temperature Source Pulse Rate 122 H 114 H 99 H Pulse Rate [Apical] Pulse Rhythm Irregular Pulse Rhythm [Apical] Respiratory Rate 22 Respiratory Effort / Characteristics Respiratory Depth Respiratory Pattern Blood Pressure 107/72 Blood Pressure [Right Arm] Blood Pressure Mean Blood Pressure Mean [Right Arm] Blood Pressure Position [Right Arm] Pulse Oximetry 95 Oxygen Delivery Method Room Air Sepsis Recent Fever Within 48 Hours Sepsis New/Unexplained Change in Mental Status Sepsis Action Taken by Nursing 11/16/23 02:30 11/16/23 03:25 Temperature Temperature Source Pulse Rate Pulse Rate [Apical] 108 H Pulse Rhythm Pulse Rhythm [Apical] Irregular Respiratory Rate 20 16 Respiratory Effort / Characteristics Non-Labored Spontaneous Respiratory Depth Normal Respiratory Pattern Blood Pressure 89/72 L Blood Pressure [Right Arm] 97/67 L Blood Pressure Mean 77 Blood Pressure Mean [Right Arm] 77 Blood Pressure Position [Right Arm] Pulse Oximetry 95 Oxygen Delivery Method Room Air Sepsis Recent Fever Within 48 Hours Sepsis New/Unexplained Change in Mental Status Sepsis Action Taken by Long Term Medications Current Medication List: was personally reviewed by me Laboratory Data Attestation: I reviewed the patient's lab results. 11/16/23 00:55 11/16/23 00:55 Lab Results 11/16/23 11/16/23 11/16/23 Range/Units 00:55 00:59 01:07 WBC 10.38 (4.8-10.8) K/ul RBC 3.53 L (4.70-6.10) M/uL Hgb 11.0 L (14.0-18.0) g/dl Hct 32.7 L (42.0-52.0) % MCV 92.6 (80.0-100.0) fL MCH 31.2 (25.0-34.0) pg MCHC 33.6 (32.0-36.0) g/dL RDW Std Deviation 49.1 H (36.4-46.3) fL RDW Coeff of Pooja 14.5 (11.5-14.5) % Plt Count 285 (130-400) K/uL MPV 9.7 (9.4-12.4) fL Immature Gran % (Auto) 0.4 % Neut % (Auto) 75.8 % Lymph % (Auto) 10.8 % [place] % (Auto) 10.7 % Eos % (Auto) 1.8 % Baso % (Auto) 0.5 % Neut # (Auto) 7.87 H (1.40-6.50) K/uL Lymph # (Auto) 1.12 L (1.20-3.40) K/uL [place] # (Auto) 1.11 H (0.11-0.59) K/uL Eos # (Auto) 0.19 (0.00-0.50) K/uL Baso # (Auto) 0.05 (0.00-0.20) K/uL Immature Gran # (Auto) 0.04 (0.01-0.20) K/uL PT 10.9 (9.0-12.0) Seconds INR 1.0 (0.9-1.1) Sodium 126 L (136-145) mmol/L Potassium 5.1 (3.5-5.1) mmol/L Chloride 87 L (98-107) mmol/L Carbon Dioxide 24 (21-32) mmol/L Anion Gap 15 H (3-11) BUN 68 H (6-23) mg/dl Creatinine 6.93 H* (0.6-1.4) mg/dl Est Cr Clr Drug Dosing Not Reportable Est GFR ( Amer) 7.8 ml/min Est GFR (Non-Af Amer) 6.7 ml/min BUN/Creatinine Ratio 9.8 L (10-20) Glucose 292 H (70-99(Fasting)) mg/dl Lactate 1.6 (0.4-2.0) mmol/L Calcium 9.0 (8.6-10.3) mg/dl Total Bilirubin 0.3 (0.2-1.0) mg/dl AST 18 (13-39) U/L ALT 23 (7-52) U/L Alkaline Phosphatase 115 H (34-104) U/L Total Protein 7.5 (6.0-8.3) gm/dl Albumin 3.6 (3.4-5.0) gm/dl Globulin 3.9 (2.5-4.0) gm/dl Albumin/Globulin Ratio 0.9 (0.9-2) Lipase 168 H (11-82) U/L Procalcitonin 0.31 (0-0.5) ng/ml Administered Medications Discontinued Medications Fentanyl Citrate (Fentanyl Citrate Pf 100 Mcg/2 Ml Vial) 25 mcg IV NOW STA Stop: 11/16/23 02:43 Last Admin: 11/16/23 02:59 Dose: 25 mcg Documented By: RASHAUN Hydromorphone HCl (Hydromorphone Inj 0.5 Mg/0.5 Ml Syr) 0.25 mg IV NOW STA Stop: 11/16/23 03:58 Last Admin: 11/16/23 04:09 Dose: 0.25 mg Documented By: MAHESH Sodium Chloride (Nss) 500 mls @ 999 mls/hr IV .Q31M ONE Stop: 11/16/23 02:47 Last Infusion: 11/16/23 03:00 Dose: Infused Documented By: Admin: 11/16/23 02:27 Dose: 999 mls/hr Documented By: FERCHO Acetaminophen (Ofirmev) 1,000 mg in 100 mls @ 400 mls/hr IV NOW STA Stop: 11/16/23 02:39 Last Infusion: 11/16/23 03:09 Dose: Infused Documented By: Admin: 11/16/23 02:28 Dose: 400 mls/hr Documented By: FERCHO Piperacillin Sod/Tazobactam Sod (Zosyn) 4.5 gm in 100 mls @ 200 mls/hr IV NOW ONE Stop: 11/16/23 03:08 Last Infusion: 11/16/23 03:50 Dose: Infused Documented By: Admin: 11/16/23 03:20 Dose: 200 mls/hr Documented By: MAHESH Metoprolol Tartrate (Metoprolol Tartrate 1 Mg/Ml Vial) 5 mg IV NOW STA Stop: 11/16/23 01:12 Last Admin: 11/16/23 01:31 Dose: 5 mg Documented By: FERCHO Imaging Data Radiologist's Impression: Abdomen/Pelvis CT 11/16/23 00:57 CR Exam(s): CT ABDOMEN + PELVIS Without Contrast EXAM: CT Abdomen and Pelvis Without Intravenous Contrast CLINICAL HISTORY: Reason for exam: h/o of ESRD on PD, diffuse ab pain; L ab pain. TECHNIQUE: Axial computed tomography images of the abdomen and pelvis without intravenous contrast. CTDI is 26.20 mGy and DLP is 1409.44 mGy-cm. Automated exposure control was utilized for the study. A dose lowering technique was utilized adhering to the principles of ALARA. COMPARISON: CT abdomen/pelvis on 09/02/2023 FINDINGS: Lung bases: Atelectasis in the lower lungs. Heart: Cardiomegaly. Coronary artery and aortic valve calcifications. ABDOMEN: Liver: Hepatomegaly. Gallbladder and bile ducts: Cholelithiasis. No ductal dilation. Pancreas: Similar cystic structure with small peripheral calcifications along the pancreatic tail, suggesting pseudocysts. No ductal dilation. Spleen: Unremarkable. No splenomegaly. Adrenals: Unremarkable. No mass. Kidneys and ureters: Nonspecific bilateral perinephric fat stranding. Bilateral renal cysts. No further follow-up necessary. Some small hyperdense lesions off the kidneys could be further evaluated with ultrasound if clinically indicated. Probable small nonobstructing right renal stone. No hydronephrosis or ureteral stone. Stomach and bowel: Diverticulosis. Inflammatory changes of the sigmoid colon, concerning for acute diverticulitis. No small bowel obstruction. PELVIS: Appendix: Normal appendix. Bladder: Prominence of the bladder wall is nonspecific. Please correlate with urinalysis if concerned for cystitis. No stones. Reproductive: Prostatomegaly. Calcifications of the prostate. ABDOMEN and PELVIS: Intraperitoneal space: Small amount of fluid in the lower abdomen and pelvis. Free air foci may represent viscous perforation. Alternatively, free air could be secondary to manipulation of the peritoneal dialysis catheter. Bones/joints: Degenerative changes of the spine. Postsurgical changes from L2-S1. No acute fracture. No dislocation. Soft tissues: Small fat-containing umbilical hernia. Vasculature: Atherosclerotic changes of the vasculature. Mild ectasia of the common iliac arteries. Mild to moderate stenosis at the origin of the right renal artery. Moderate to severe stenosis at the origin of the left renal artery. Mild to moderate stenosis at the origin of the celiac artery. Phleboliths in the pelvis. No abdominal aortic aneurysm. Lymph nodes: Unremarkable. No enlarged lymph nodes. Tubes, lines and devices: Peritoneal dialysis catheter terminates in the right lower quadrant. IMPRESSION: 1. Small amount of fluid in the lower abdomen and pelvis. Free air foci may represent viscous perforation. Alternatively, free air could be secondary to manipulation of the peritoneal dialysis catheter. 2. Diverticulosis. Inflammatory changes of the sigmoid colon, concerning for acute diverticulitis. 3. Prominence of the bladder wall is nonspecific. Please correlate with urinalysis if concerned for cystitis. 4. Cholelithiasis. 5. Prostatomegaly. Calcifications of the prostate. Communications: Call Doctor Pneumoperitoneum, new or unexpected Electronically signed by: Bernardo Birmingham M.D. 11/16/23 02:37 AM Discharge Plan Visit Data Chief Complaint: Flank Pain Stated Complaint: L SIDE PAIN ED Provider: Benito Garcia Discharge Problem: Diverticulitis, Abdominal pain, Acute hyponatremia, End-stage renal disease on peritoneal dialysis, Pneumoperitoneum Forms Stand Alone Forms: My [facility] [email or web address] Prescriptions Prescriptions: No Action allopurinol 100 mg Tablet 100 mg PO QAM levothyroxine 150 mcg Tablet 150 mcg PO DAILYBB torsemide 100 mg tablet 100 mg PO QAM hydrocodone-acetaminophen 5-325 mg tablet 1 tab PO Q6 PRN (Reason: Pain) terazosin 1 mg capsule 1 mg PO HS glipizide 10 mg tablet 10 mg PO AMHS Eliquis 2.5 mg tablet 2.5 mg PO AMHS Rx Instructions: has not taken for days buspirone 5 mg tablet 5 mg PO Q4 PRN (Reason: Anxiety) hydroxyzine HCl 25 mg tablet 25 mg PO UD Jessie-Joycelyn 0.8 mg tablet 1 tab PO DAILY lactulose 10 gram/15 mL solution 15 ml PO BID PRN (Reason: severe constipation) potassium chloride 10 mEq tablet,ER particles/crystals 20 meq PO .HOLD Rx Instructions: Patient states takes 2 tab in am when not on hold. albuterol sulfate 90 mcg/actuation HFA aerosol inhaler 2 puff INHALATION Q4 PRN (Reason: Wheezing) hydrocortisone [Anusol-HC] 2.5 % Cream With Perineal Applicator 1 applic NV BID PRN (Reason: Hemorrhoids) ondansetron 4 mg tablet,disintegrating 4 mg translingual Q8 PRN (Reason: Nausea) cholecalciferol (vitamin D3) [Vitamin D3] 25 mcg (1,000 unit) Tablet 50 mcg PO QAM metoprolol succinate 25 mg tablet extended release 24 hr 12.5 mg PO QAM Referrals Referrals: Pramod Damian MD [Primary Care Provider] - Discharge Problem: Abdominal pain Qualifiers: Abdominal location: generalized Qualified Code(s): R10.84 - Generalized abdominal pain
[2023-11-16 01:23] LABS: Basophils # (auto) 0.05 K/uL (0.00-0.20); Basophils % (auto) 0.5 %; Eosinophils # (auto) 0.19 K/uL (0.00-0.50); Eosinophils % (auto) 1.8 %; Hematocrit (blood only) 32.7 % (42.0-52.0); Immature Granulocytes # (auto) 0.04 K/uL (0.01-0.20); Immature Granulocytes % (auto) 0.4 %; Lymphocytes # (auto) 1.12 K/uL (1.20-3.40); Lymphocytes % (auto) 10.8 %; Mean Corpuscular Hemoglobin 31.2 pg (25.0-34.0); Mean Corpuscular Hgb Conc 33.6 g/dL (32.0-36.0); Mean Corpuscular Volume 92.6 fL (80.0-100.0); Mean Platelet Volume 9.7 fL (9.4-12.4); Monocytes # (auto) 1.11 K/uL (0.11-0.59); Monocytes % (auto) 10.7 %; Neutrophils # (auto) 7.87 K/uL (1.40-6.50); Neutrophils % (auto) 75.8 %; Platelet Count 285 K/uL (130-400); RDW Coefficient of Variation 14.5 % (11.5-14.5); RDW Standard Deviation 49.1 fL (36.4-46.3); Red Blood Count 3.53 M/uL (4.70-6.10); White Blood Count 10.38 K/ul (4.8-10.8)
[2023-11-16 01:29] LABS: Alanine Aminotransferase 23 U/L (7-52); Albumin Globulin Ratio 0.9 (0.9-2); Albumin Level 3.6 gm/dl (3.4-5.0); Alkaline Phosphatase 115 U/L (34-104); Anion Gap 15 (3-11); Aspartate Aminotransferase 18 U/L (13-39); BUN Creatinine Ratio 9.8 (10-20); Bilirubin,Total 0.3 mg/dl (0.2-1.0); Blood Urea Nitrogen 68 mg/dl (6-23); Carbon Dioxide 24 mmol/L (21-32); Chloride 87 mmol/L (98-107); Est GFR (African American) 7.8 ml/min; Est GFR (Non-African American) 6.7 ml/min; Globulin 3.9 gm/dl (2.5-4.0); Glucose 292 mg/dl (70-99(Fasting)); Lipase 168 U/L (11-82); Potassium 5.1 mmol/L (3.5-5.1); Sodium 126 mmol/L (136-145); Total Protein 7.5 gm/dl (6.0-8.3)
[2023-11-16] MEDS: METOPROLOL TARTRATE 1 MG/ML VIAL IV STA (01:31)
[2023-11-16 01:34] LABS: Prothrombin Time 10.9 Seconds (9.0-12.0)
[2023-11-16] MEDS: SODIUM CHLORIDE 0.9% 500 ML IV ONE (02:27)
[2023-11-16] MEDS: ACETAMINOPHEN 1,000 MG/100 ML VIAL IV STA (02:28)
--- NOTE | 2023-11-16 02:38 | CT Scan Report ---
Exam(s): CT ABDOMEN + PELVIS Without Contrast EXAM: CT Abdomen and Pelvis Without Intravenous Contrast CLINICAL HISTORY: Reason for exam: h/o of ESRD on PD, diffuse ab pain; L ab pain. TECHNIQUE: Axial computed tomography images of the abdomen and pelvis without intravenous contrast. CTDI is 26.20 mGy and DLP is 1409.44 mGy-cm. Automated exposure control was utilized for the study. A dose lowering technique was utilized adhering to the principles of ALARA. COMPARISON: CT abdomen/pelvis on 09/02/2023 FINDINGS: Lung bases: Atelectasis in the lower lungs. Heart: Cardiomegaly. Coronary artery and aortic valve calcifications. ABDOMEN: Liver: Hepatomegaly. Gallbladder and bile ducts: Cholelithiasis. No ductal dilation. Pancreas: Similar cystic structure with small peripheral calcifications along the pancreatic tail, suggesting pseudocysts. No ductal dilation. Spleen: Unremarkable. No splenomegaly. Adrenals: Unremarkable. No mass. Kidneys and ureters: Nonspecific bilateral perinephric fat stranding. Bilateral renal cysts. No further follow-up necessary. Some small hyperdense lesions off the kidneys could be further evaluated with ultrasound if clinically indicated. Probable small nonobstructing right renal stone. No hydronephrosis or ureteral stone. Stomach and bowel: Diverticulosis. Inflammatory changes of the sigmoid colon, concerning for acute diverticulitis. No small bowel obstruction. PELVIS: Appendix: Normal appendix. Bladder: Prominence of the bladder wall is nonspecific. Please correlate with urinalysis if concerned for cystitis. No stones. Reproductive: Prostatomegaly. Calcifications of the prostate. ABDOMEN and PELVIS: Intraperitoneal space: Small amount of fluid in the lower abdomen and pelvis. Free air foci may represent viscous perforation. Alternatively, free air could be secondary to manipulation of the peritoneal dialysis catheter. Bones/joints: Degenerative changes of the spine. Postsurgical changes from L2-S1. No acute fracture. No dislocation. Soft tissues: Small fat-containing umbilical hernia. Vasculature: Atherosclerotic changes of the vasculature. Mild ectasia of the common iliac arteries. Mild to moderate stenosis at the origin of the right renal artery. Moderate to severe stenosis at the origin of the left renal artery. Mild to moderate stenosis at the origin of the celiac artery. Phleboliths in the pelvis. No abdominal aortic aneurysm. Lymph nodes: Unremarkable. No enlarged lymph nodes. Tubes, lines and devices: Peritoneal dialysis catheter terminates in the right lower quadrant. IMPRESSION: 1. Small amount of fluid in the lower abdomen and pelvis. Free air foci may represent viscous perforation. Alternatively, free air could be secondary to manipulation of the peritoneal dialysis catheter. 2. Diverticulosis. Inflammatory changes of the sigmoid colon, concerning for acute diverticulitis. 3. Prominence of the bladder wall is nonspecific. Please correlate with urinalysis if concerned for cystitis. 4. Cholelithiasis. 5. Prostatomegaly. Calcifications of the prostate. Communications: Call Doctor Pneumoperitoneum, new or unexpected Electronically signed by: Bernardo Birmingham M.D. 11/16/23 02:37 AM
[2023-11-16] MEDS: fentaNYL citrate PF 100 MCG/2 ML VIAL IV STA (02:59)
[2023-11-16] MEDS: PIPERACILLIN/TAZOBACTAM 4.5 GM/100 ML BAG IV ONE (03:20)
--- NOTE | 2023-11-16 03:28 | Surgery Consultation ---
Date of Consultation November 16, 2023 Assessment & Plan (1) Diverticulitis: I discussed with the treating emergency room physician and the patient is being admitted on the hospital service. From surgical perspective we recommend the following: It appears as though the patient is suffering from diverticulitis and he also may have an element of pancreatitis as he has noted to have an elevated lipase. Treatment of both of these problems are similar and will be delineated below: Analgesics to be provided Antiemetics should be provided Antibiotics in the form of Zosyn have been initiated should continue Patient should be hydrated IV fluids, but this should be done so cautiously due to his underlying history of renal failure and need for dialysis As noted the patient does take Eliquis but he currently has not taken in excess of 1 week due to concern for a bleeding hemorrhoid. Would recommend holding patient's Eliquis until it is ascertained whether or not the patient will require any procedural intervention N.p.o. status should be implemented and maintained until clinical improvement is noted I had a lengthy discussion with the patient and his family who was present at bedside. It appears that the patient is suffering from diverticulitis as noted above and a microperforation cannot be excluded. In addition, an element of pancreatitis may be at play as well. Certainly the area on patient's CAT scan could be related to utilization of his hemodialysis catheter but this has not been definitively ascertained as well. I discussed with the patient that we would prefer to treat him in a conservative manner as any emergency surgery would necessitate a colostomy. Will monitor the patient's clinical response to the above plan as well as monitor serial laboratories. Additional recommendations to be forthcoming based on his clinical course as it unfolds as above. already feeling much better. no pain currently. wbc improved. will allow him to try some clear liquids. continue current care. no urgent indication for surgical intervention. History of Present Illness Reason for Consultation: Diverticulitis with concern for perforation History of Present Illness This is an 83-year-old male who presented the emergency department secondary to left flank pain. The patient notes that he currently undergoes peritoneal dialysis which she does 5 times per day. He did do his dialysis session earlier today. He notes that he has been having some abdominal pain after performing his his peritoneal dialysis but it usually goes away. He notes that yesterday he developed pain in his left flank that is worse than what was usually noted and has been unremitting so he presented to the emergency department. He denies any fevers, shakes, or chills. He denies any nausea or vomiting. He notes that he had a normal bowel movement yesterday. He notes that his bowel movement was nonbloody and nonmelanotic. He does report that he has had a colonoscopy he believes 10 to 15 years ago and to the best of his knowledge there were no issues on the study. Patient also does report history of diverticulitis in excess of 10 years ago and has not had any recurrence of this problem. Concerning previous abdominal surgeries the patient has had a right inguinal hernia. He has also had a peritoneal dialysis catheter which has been in place since August 2022. He does note that when he developed his right inguinal hernia he had the be temporary placed on hemodialysis so he could have his hernia fixed but he has subsequently placed back on peritoneal dialysis. Despite being on dialysis the patient notes that he continues to make small amounts of urine throughout the day. In addition to what is noted above the patient has a history of atrial fibrillation for which she takes Eliquis. He notes that he does have issues with bleeding hemorrhoids at times but he has not taken his excess he believes in approximately 1 week. Currently he notes his hemorrhoids are not bleeding. Since arrival to the hospital patient has had labs and imaging which I independent reviewed. CT scan of the abdomen pelvis showed that patient had inflammatory changes of the sigmoid colon which was concerning for acute diverticulitis. There is a small amount of free fluid in the lower abdomen and pelvis. There is also free air foci in which interpreting radiologist could not rule out a perforated viscus, however utilization of peritoneal dialysis catheter could cause similar findings. On the CT scan the patient was also noted to have a cystic structure of the pancreas suggestive of a pseudocyst. Labs included CBC were white blood cell count was normal. His platelet count was normal. Hemoglobin and hematocrit are 11.0 and 32.7. Coagulation studies were normal. Chemistry profile showed sodium is 126 with a normal potassium. BUN and creatinine were 68 6.9. Lactic acid level was nonelevated at 1.6. There is small elevation of the patient's lipase at 168. At the time of my interview the patient was resting comfortably in bed. He did not appear to be in any distress. Allergies Allergy/AdvReac Type Severity Reaction Status Date / Time clonidine Allergy Unknown allergic Unverified 11/16/23 02:23 to all but 1 brand carvedilol Allergy Hives Verified 11/16/23 02:23 losartan Allergy Unknown Verified 11/16/23 02:23 ANJELICA Inhibitors AdvReac Intermediate INTOLERANCE Verified 11/16/23 02:23 PER ORDER allopurinol AdvReac Intermediate severe abd Verified 11/16/23 02:23 pain Beta-Blockers AdvReac Intermediate INTOLERANCE Verified 11/16/23 02:23 (Beta-Adrenergic Bloc PER DR ARELLANO doxazosin AdvReac Intermediate INTOLERANCE Verified 11/16/23 02:[address] ARELLANO [id number]-[id number]-[id number] Reductase AdvReac Intermediate INTOLERANCE Verified 11/16/23 02:[address] [Medwari-Ezh-Okp Reductase ADAN Inhibitor] citalopram AdvReac Unknown Verified 11/16/23 02:23 hydralazine AdvReac diarrhea, Verified 11/16/23 02:23 testicular pain hydrochlorothiazide AdvReac hyponatremi Verified 11/16/23 02:23 a lisinopril AdvReac Cough Verified 11/16/23 02:23 simvastatin [From Zocor] AdvReac Muscle Pain Verified 11/16/23 02:23 sitagliptin [From Januvia] AdvReac restlessnes Verified 11/16/23 02:23 s Home Medications Medication Instructions Recorded Confirmed Type allopurinol 100 mg tablet 100 mg PO QAM 02/25/18 11/16/23 History levothyroxine 150 mcg tablet 150 mcg PO DAILYBB 08/12/20 11/16/23 History torsemide 100 mg tablet 100 mg PO QAM 08/29/22 11/16/23 History albuterol sulfate 90 mcg/actuation 2 puff inhalation Q4 PRN Wheezing 08/22/23 11/16/23 History aerosol inhaler apixaban 2.5 mg tablet (Eliquis) 2.5 mg PO AMHS 08/22/23 11/16/23 History buspirone 5 mg tablet 5 mg PO Q4 PRN Anxiety 08/22/23 11/16/23 History glipizide 10 mg tablet 10 mg PO AMHS 08/22/23 11/16/23 History hydrocodone 5 mg-acetaminophen 325 1 tab PO Q6 PRN Pain 08/22/23 11/16/23 History mg tablet hydroxyzine HCl 25 mg tablet 25 mg PO UD 08/22/23 11/16/23 History lactulose 10 gram/15 mL oral 15 ml PO BID PRN severe 08/22/23 11/16/23 History solution constipation potassium chloride 10 mEq 20 meq PO .HOLD 08/22/23 11/16/23 History tablet,extended release(part/cryst) terazosin 1 mg capsule 1 mg PO HS 08/22/23 11/16/23 History vitamin B complex-vitamin C-folic 1 tab PO DAILY 08/22/23 11/16/23 History acid 0.8 mg tablet (Jessie-Joycelyn) cholecalciferol (vitamin D3) 25 50 mcg PO QAM 11/16/23 11/16/23 History mcg (1,000 unit) tablet (Vitamin D3) hydrocortisone 2.5 % topical cream 1 applic [place] BID PRN Hemorrhoids 11/16/23 11/16/23 History with perineal applicator (Anusol-HC) metoprolol succinate 25 mg 12.5 mg PO QAM 11/16/23 11/16/23 History tablet,extended release 24 hr ondansetron 4 mg disintegrating 4 mg translingual Q8 PRN Nausea 11/16/23 11/16/23 History tablet Patient History Medical History Gout Pulmonary hypertension LBBB (left bundle branch block) COPD (chronic obstructive pulmonary disease) Spinal stenosis Family History Other Diabetes Hypertension Social History Smoking Status: Former smoker Cigarettes Per Day: 10; Smoking End Date: 35 years ago; Second Hand Exposure: No; Do You Dip or Chew Tobacco: No; Hx Alcohol Use: No Hx Substance Use: No Preferred Language: Vietnamese Communication Ability: Effective [employer] Required: No Beliefs That Will Affect Care: None marital status: Current Living Situation: Spouse Other Information That Helps Us Care for You: No Feels Safe at Home: Yes Safety Concerns: Feels Safe At This Time Assistive Devices: Cane, Denture - Upper, Denture - Lower and Walker Review of Systems Review of Systems: All systems reviewed & are unremarkable except as noted in HPI & below Physical Exam Constitutional: WD/WN, vitals as above Eyes: no conjunctival abnormality ENMT: Ears: no hearing impairment and no external ear abnormality Mouth: no oropharynx abnormality Neck: trachea midline Respiratory: normal respiratory effort; no respiratory distress and no labored breathing Cardiovascular: Rate/Rhythm: regular rate and regular rhythm Vessels: radial pulses present Gastrointestinal (Abdomen): At the time of my exam the patient's abdomen was soft, nondistended, and nonrigid. There is no rebound tenderness or guarding. The patient had pain with palpation in the left hypogastric/left flank area. He does have a peritoneal dialysis catheter in his lower abdomen. The insertion site is clean. There is no erythema or areas of drainage near the catheter site concerning for infection. Musculoskeletal: No calf tenderness Skin: no rashes Neurologic: moves all extremities Psychiatric: A+Ox3, euthymic affect Results & Data Vital Signs (Past 12 Hours) Vital Signs Temp Pulse Pulse Resp BP BP Pulse Ox 11/16/23 02:30 20 89/72 L 11/16/23 01:50 99 H 11/16/23 01:31 114 H 107/72 11/16/23 01:20 122 H 22 95 11/16/23 01:20 122 H 22 172/139 H 95 11/16/23 01:07 115 H 11/16/23 00:38 37.2 C 112 H 18 113/66 97 O2 Del Method 11/16/23 02:30 11/16/23 01:50 11/16/23 01:31 11/16/23 01:20 Room Air 11/16/23 01:20 Room Air 11/16/23 01:07 11/16/23 00:38 Room Air PG Care Time/CCT Total # of Minutes Spent Total Time Spent with Patient: Total time spent is greater than 50% in coordination of care (as documented) at patient's floor/unit and/or counseling patient: Coding Level of Care Code 33196 INT INP/OBS CARE MIN Diagnoses Diverticulitis K57.92
[2023-11-16] MEDS: HYDROmorphone INJ 0.5 MG/0.5 ML SYR IV STA (04:09)
--- NOTE | 2023-11-16 06:17 | History & Physical Report ---
Date of Service November 16, 2023 Assessment & Plan (1) Diverticulitis: Plan: 83-year-old male with past medical history significant for type 2 diabetes, hypothyroidism, hyperlipidemia, hyperparathyroidism secondary to renal disease, cyst of pancreas, postoperative hypothyroidism, history of hypokalemia, end- stage renal disease on peritoneal dialysis, history of COPD, chronic diastolic CHF, left ventricular hypertrophy, hypertension, left bundle branch block, enl argement of aortic root, pulmonary hypertension, persistent atrial fibrillation, GERD, iron deficiency anemia, panic disorder, anxiety disorder, history of thyroid cancer, history of prostate cancer, history of hyponatremia, who lives at home with his and ambulates with a walker was brought in because of abdominal pain. Patient saying that he is having abdominal pain for some time but last 2 days got worse. The pain is mainly located in the left lower side but sometimes the pain can happen at other parts of abdomen too. Patient denies nausea. No fevers. Had normal bowel movement. Denies blood in the stools. Doesn't make much urine. Denies chest pain or shortness of breath. No headache. No blurred vision. No runny nose or sore throat no cough. Currently resting comfortably and hemodynamically stable. Asking for pain medication. Daughter is in the room. acute diverticulitis presents abdominal pain mostly in the left side CT scan showing inflammatory change of the sigmoid colon concerning for acute diverticulitis Also CT showing: Small amount of fluid in the lower abdomen and pelvis. Free air foci may represent viscous perforation. Alternatively, free air could be secondary to manipulation of the peritoneal dialysis catheter. consulted surgery and appreciate inputs currently n.p.o., gentle IV fluids and IV Zosyn close monitor elevated lipase possible pancreatitis n.p.o. getting gentle fluids IV ns@50ml/hr will consult GI for further recommendations end-stage renal disease on peritoneal dialysis nephrology consult hyponatremia sodium 126 history of hyponatremia On Gentle fluids nephro consult close follow-up the labs diabetes holding p.o. meds sliding scale follow HbA1c levels follow blood sugars chronic diastolic CHF on peritoneal dialysis continue home torsemide seems Potassium supplement on hold.. getting gentle fluids monitor for volume overload hypothyroidism on Synthyroid follow TSH history of persistent atrial fibrillation on metoprolol succinate last few days was not taking Eliquis because of questionable hemorrhoid bleed will hold Eliquis for now in case patient needs any procedure. history of COPD continue home inhalers history of gout on allopurinol hypertension on metoprolol succinate and terazosin and diuretics we will monitor anxiety disorder on buspirone history of prostate cancer S/p prostate cryotherapy history of thyroid cancer status post thyroidectomy DVT prophylaxis SCDs for now disposition med/telemetry full code. History of Present Illness Chief Complaint: Abdominal pain Primary Care Provider: Pramod Damian MD 83-year-old male with past medical history significant for type 2 diabetes, hypothyroidism, hyperlipidemia, hyperparathyroidism secondary to renal disease, cyst of pancreas, postoperative hypothyroidism, history of hypokalemia, end- stage renal disease on peritoneal dialysis, history of COPD, chronic diastolic CHF, left ventricular hypertrophy, hypertension, left bundle branch block, enlargement of aortic root, pulmonary hypertension, persistent atrial fibrillation, GERD, iron deficiency anemia, panic disorder, anxiety disorder, history of thyroid cancer, history of prostate cancer, history of hyponatremia, who lives at home with his and ambulates with a walker was brought in because of abdominal pain. Patient saying that he is having abdominal pain for some time but last 2 days got worse. The pain is mainly located in the left lower side but sometimes the pain can happen at other parts of abdomen too. Patient denies nausea. No fevers. Had normal bowel movement. Denies blood in the stools. Doesn't make much urine. Denies chest pain or shortness of breath. No headache. No blurred vision. No runny nose or sore throat no cough. Currently resting comfortably and hemodynamically stable. Asking for pain medication. Daughter is in the room. Past medical history. As mentioned above Past surgical history. Prostate biopsy. Carpal tunnel surgery. Dental surgery. EGD. Back surgery. Heart cath. Thyroidectomy. Laparoscopic insertion of intraperitoneal cannula. Lumbar spine fusion surgery. Prostate cryoablation. Removal of thymus gland. Inguinal hernia repair and right side. Revision of ulnar nerve at elbow. Social history. . Quit smoking 1978. Smoked 0.8 packs a day for 17 years. No alcohol use. No drug use. Family history. Father had gout. Mother had diabetes. History of breast cancer. Diabetes. Daughter has diabetes. Allergies Allergy/AdvReac Type Severity Reaction Status Date / Time clonidine Allergy Unknown allergic Unverified 11/16/23 02:23 to all but 1 brand carvedilol Allergy Hives Verified 11/16/23 02:23 losartan Allergy Unknown Verified 11/16/23 02:23 ANJELICA Inhibitors AdvReac Intermediate INTOLERANCE Verified 11/16/23 02:23 PER ORDER allopurinol AdvReac Intermediate severe abd Verified 11/16/23 02:23 pain Beta-Blockers AdvReac Intermediate INTOLERANCE Verified 11/16/23 02:23 (Beta-Adrenergic Bloc PER DR ARELLANO doxazosin AdvReac Intermediate INTOLERANCE Verified 11/16/23 02:[address] ARELLANO Ymutong-JPW-WwT Reductase AdvReac Intermediate INTOLERANCE Verified 11/16/23 02:[address] [Piufcsb-Lhx-Cxk Reductase ADAN Inhibitor] citalopram AdvReac Unknown Verified 11/16/23 02:23 hydralazine AdvReac diarrhea, Verified 11/16/23 02:23 testicular pain hydrochlorothiazide AdvReac hyponatremi Verified 11/16/23 02:23 a lisinopril AdvReac Cough Verified 11/16/23 02:23 simvastatin [From Zocor] AdvReac Muscle Pain Verified 11/16/23 02:23 sitagliptin [From Januvia] AdvReac restlessnes Verified 11/16/23 02:23 s Home Medications Medication Instructions Recorded Confirmed Type allopurinol 100 mg tablet 100 mg PO QAM 02/25/18 11/16/23 History levothyroxine 150 mcg tablet 150 mcg PO DAILYBB 08/12/20 11/16/23 History torsemide 100 mg tablet 100 mg PO QAM 08/29/22 11/16/23 History albuterol sulfate 90 mcg/actuation 2 puff inhalation Q4 PRN Wheezing 08/22/23 11/16/23 History aerosol inhaler apixaban 2.5 mg tablet (Eliquis) 2.5 mg PO AMHS 08/22/23 11/16/23 History buspirone 5 mg tablet 5 mg PO Q4 PRN Anxiety 08/22/23 11/16/23 History glipizide 10 mg tablet 10 mg PO AMHS 08/22/23 11/16/23 History hydrocodone 5 mg-acetaminophen 325 1 tab PO Q6 PRN Pain 08/22/23 11/16/23 History mg tablet hydroxyzine HCl 25 mg tablet 25 mg PO UD 08/22/23 11/16/23 History lactulose 10 gram/15 mL oral 15 ml PO BID PRN severe 08/22/23 11/16/23 History solution constipation potassium chloride 10 mEq 20 meq PO .HOLD 08/22/23 11/16/23 History tablet,extended release(part/cryst) terazosin 1 mg capsule 1 mg PO HS 08/22/23 11/16/23 History vitamin B complex-vitamin C-folic 1 tab PO DAILY 08/22/23 11/16/23 History acid 0.8 mg tablet (Jessie-Joycelyn) cholecalciferol (vitamin D3) 25 50 mcg PO QAM 11/16/23 11/16/23 History mcg (1,000 unit) tablet (Vitamin D3) hydrocortisone 2.5 % topical cream 1 applic ID BID PRN Hemorrhoids 11/16/23 11/16/23 History with perineal applicator (Anusol-HC) metoprolol succinate 25 mg 12.5 mg PO QAM 11/16/23 11/16/23 History tablet,extended release 24 hr ondansetron 4 mg disintegrating 4 mg translingual Q8 PRN Nausea 11/16/23 11/16/23 History tablet 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, instrumented Adjustment disorder with depressed mood Acute right flank pain (Acute) RUQ abdominal pain (Acute) Renal failure (Acute) Anemia (Acute) Gall stones (Acute) Cholelithiasis Kidney lesion Pancreatic cyst ANGY (iron deficiency anemia) ESRD (end stage renal disease) Peritoneal dialysis catheter in situ Chronic diastolic CHF (congestive heart failure) Atrial fibrillation Hypothyroidism DM type 2 (diabetes mellitus, type 2) Acute right flank pain (Acute) Elevated lipase (Acute) Hyponatremia (Acute) Hypertension (Chronic) Medical History Gout Pulmonary hypertension LBBB (left bundle branch block) COPD (chronic obstructive pulmonary disease) Spinal stenosis Family History Other Diabetes Hypertension Social History Smoking Status: Former smoker Cigarettes Per Day: 10; Smoking End Date: 35 years ago; Second Hand Exposure: No; Do You Dip or Chew Tobacco: No; Hx Alcohol Use: No Hx Substance Use: No Preferred Language: Irish Communication Ability: Effective Video News Editor Required: No Beliefs That Will Affect Care: None marital status: Current Living Situation: Spouse Other Information That Helps Us Care for You: No Feels Safe at Home: Yes Safety Concerns: Feels Safe At This Time Assistive Devices: Cane, Denture - Upper, Denture - Lower and Walker Review of Systems Review of Systems: All systems reviewed & are unremarkable except as noted in HPI & below Physical Exam Physical Exam: General- Not in acute distress Head- atraumatic Eyes- PERRL. ENT- oropharynx clear Neck- supple, no JVD. Lungs- clear to auscultation no wheezing or crackles. Heart- regular rhythm; no murmur, no gallop. Abdomen- normal bowel sounds, soft, mild diffuse tenderness. PD cath site no erythema or drainage seen. Extremities- no pretibial edema, no erythema seen. Neuro- alert, oriented ; PERRL no facial palsy; no dysarthria; moves extremities. Results & Data Results & Data Vital Signs (Past 12 Hours) Vital Signs Temp Pulse Pulse Resp BP BP Pulse Ox 11/16/23 05:06 89 11/16/23 03:25 108 H 16 97/67 L 95 11/16/23 02:30 20 89/72 L 11/16/23 01:50 99 H 11/16/23 01:31 114 H 107/72 11/16/23 01:20 122 H 22 95 11/16/23 01:20 122 H 22 172/139 H 95 11/16/23 01:07 115 H 11/16/23 00:38 37.2 C 112 H 18 113/66 97 O2 Del Method 11/16/23 05:06 11/16/23 03:25 Room Air 11/16/23 02:30 11/16/23 01:50 11/16/23 01:31 11/16/23 01:20 Room Air 11/16/23 01:20 Room Air 11/16/23 01:07 11/16/23 00:38 Room Air Diagnostic Findings Laboratory Results WBC 10.38 K/ul (4.8-10.8) 11/16/23 00:55 RBC 3.53 M/uL (4.70-6.10) L 11/16/23 00:55 Hgb 11.0 g/dl (14.0-18.0) L 11/16/23 00:55 Hct 32.7 % (42.0-52.0) L 11/16/23 00:55 MCV 92.6 fL (80.0-100.0) 11/16/23 00:55 MCH 31.2 pg (25.0-34.0) 11/16/23 00:55 MCHC 33.6 g/dL (32.0-36.0) 11/16/23 00:55 RDW Std Deviation 49.1 fL (36.4-46.3) H 11/16/23 00:55 RDW Coeff of Pooja 14.5 % (11.5-14.5) 11/16/23 00:55 Plt Count 285 K/uL (130-400) 11/16/23 00:55 MPV 9.7 fL (9.4-12.4) 11/16/23 00:55 Immature Gran % (Auto) 0.4 % 11/16/23 00:55 Neut % (Auto) 75.8 % 11/16/23 00:55 Lymph % (Auto) 10.8 % 11/16/23 00:55 Noble % (Auto) 10.7 % 11/16/23 00:55 Eos % (Auto) 1.8 % 11/16/23 00:55 Baso % (Auto) 0.5 % 11/16/23 00:55 Neut # (Auto) 7.87 K/uL (1.40-6.50) H 11/16/23 00:55 Lymph # (Auto) 1.12 K/uL (1.20-3.40) L 11/16/23 00:55 Noble # (Auto) 1.11 K/uL (0.11-0.59) H 11/16/23 00:55 Eos # (Auto) 0.19 K/uL (0.00-0.50) 11/16/23 00:55 Baso # (Auto) 0.05 K/uL (0.00-0.20) 11/16/23 00:55 Immature Gran # (Auto) 0.04 K/uL (0.01-0.20) 11/16/23 00:55 PT 10.9 Seconds (9.0-12.0) 11/16/23 00:55 INR 1.0 (0.9-1.1) 11/16/23 00:55 Sodium 126 mmol/L (136-145) L 11/16/23 00:55 Potassium 5.1 mmol/L (3.5-5.1) 11/16/23 00:55 Chloride 87 mmol/L (98-107) L 11/16/23 00:55 Carbon Dioxide 24 mmol/L (21-32) 11/16/23 00:55 Anion Gap 15 (3-11) H 11/16/23 00:55 BUN 68 mg/dl (6-23) H 11/16/23 00:55 Creatinine 6.93 mg/dl (0.6-1.4) H* 11/16/23 00:55 Est Cr Clr Drug Dosing Not Reportable 11/16/23 00:55 Est GFR ( Amer) 7.8 ml/min 11/16/23 00:55 Est GFR (Non-Af Amer) 6.7 ml/min 11/16/23 00:55 BUN/Creatinine Ratio 9.8 (10-20) L 11/16/23 00:55 Glucose 292 mg/dl (70-99(Fasting)) H 11/16/23 00:55 Lactate 1.6 mmol/L (0.4-2.0) 11/16/23 01:07 Calcium 9.0 mg/dl (8.6-10.3) 11/16/23 00:55 Total Bilirubin 0.3 mg/dl (0.2-1.0) 11/16/23 00:55 AST 18 U/L (13-39) 11/16/23 00:55 ALT 23 U/L (7-52) 11/16/23 00:55 Alkaline Phosphatase 115 U/L (34-104) H 11/16/23 00:55 Total Protein 7.5 gm/dl (6.0-8.3) 11/16/23 00:55 Albumin 3.6 gm/dl (3.4-5.0) 11/16/23 00:55 Globulin 3.9 gm/dl (2.5-4.0) 11/16/23 00:55 Albumin/Globulin Ratio 0.9 (0.9-2) 11/16/23 00:55 Lipase 168 U/L (11-82) H 11/16/23 00:55 Procalcitonin 0.31 ng/ml (0-0.5) 11/16/23 00:59 Impressions Abdomen/Pelvis CT 11/16/23 00:57 CR Exam(s): CT ABDOMEN + PELVIS Without Contrast EXAM: CT Abdomen and Pelvis Without Intravenous Contrast CLINICAL HISTORY: Reason for exam: h/o of ESRD on PD, diffuse ab pain; L ab pain. TECHNIQUE: Axial computed tomography images of the abdomen and pelvis without intravenous contrast. CTDI is 26.20 mGy and DLP is 1409.44 mGy-cm. Automated exposure control was utilized for the study. A dose lowering technique was utilized adhering to the principles of ALARA. COMPARISON: CT abdomen/pelvis on 09/02/2023 FINDINGS: Lung bases: Atelectasis in the lower lungs. Heart: Cardiomegaly. Coronary artery and aortic valve calcifications. ABDOMEN: Liver: Hepatomegaly. Gallbladder and bile ducts: Cholelithiasis. No ductal dilation. Pancreas: Similar cystic structure with small peripheral calcifications along the pancreatic tail, suggesting pseudocysts. No ductal dilation. Spleen: Unremarkable. No splenomegaly. Adrenals: Unremarkable. No mass. Kidneys and ureters: Nonspecific bilateral perinephric fat stranding. Bilateral renal cysts. No further follow-up necessary. Some small hyperdense lesions off the kidneys could be further evaluated with ultrasound if clinically indicated. Probable small nonobstructing right renal stone. No hydronephrosis or ureteral stone. Stomach and bowel: Diverticulosis. Inflammatory changes of the sigmoid colon, concerning for acute diverticulitis. No small bowel obstruction. PELVIS: Appendix: Normal appendix. Bladder: Prominence of the bladder wall is nonspecific. Please correlate with urinalysis if concerned for cystitis. No stones. Reproductive: Prostatomegaly. Calcifications of the prostate. ABDOMEN and PELVIS: Intraperitoneal space: Small amount of fluid in the lower abdomen and pelvis. Free air foci may represent viscous perforation. Alternatively, free air could be secondary to manipulation of the peritoneal dialysis catheter. Bones/joints: Degenerative changes of the spine. Postsurgical changes from L2-S1. No acute fracture. No dislocation. Soft tissues: Small fat-containing umbilical hernia. Vasculature: Atherosclerotic changes of the vasculature. Mild ectasia of the common iliac arteries. Mild to moderate stenosis at the origin of the right renal artery. Moderate to severe stenosis at the origin of the left renal artery. Mild to moderate stenosis at the origin of the celiac artery. Phleboliths in the pelvis. No abdominal aortic aneurysm. Lymph nodes: Unremarkable. No enlarged lymph nodes. Tubes, lines and devices: Peritoneal dialysis catheter terminates in the right lower quadrant. IMPRESSION: 1. Small amount of fluid in the lower abdomen and pelvis. Free air foci may represent viscous perforation. Alternatively, free air could be secondary to manipulation of the peritoneal dialysis catheter. 2. Diverticulosis. Inflammatory changes of the sigmoid colon, concerning for acute diverticulitis. 3. Prominence of the bladder wall is nonspecific. Please correlate with urinalysis if concerned for cystitis. 4. Cholelithiasis. 5. Prostatomegaly. Calcifications of the prostate. Communications: Call Doctor Pneumoperitoneum, new or unexpected Electronically signed by: Bernardo Birmingham M.D. 11/16/23 02:37 AM Code Status & VTE Plan VTE Prophylaxis Plan VTE Prophylaxis will be ordered: Yes
[2023-11-16 08:11] LABS: Appearance Urine Cloudy (Clear); Bacteria Urine Automated None Seen (None Seen); Bilirubin Urine Negative (Negative); Blood Urine Trace (Negative); Color Urine Yellow; Epithelial Cell Urine Auto 0-2 /hpf (0-2); Glucose Urine UA 1+ (Negative); Ketones Urine Negative (Negative); Leukocyte Esterase Urine 1+ (Negative); Nitrite Urine Negative (Negative); Protein Urine 2+ (Negative); RBC Urine Automated 0-2 /hpf (0-2); Specific Gravity Urine 1.015 (1.000-1.030); Urobilinogen Urine Negative (Negative); WBC Urine Automated 21-50 /hpf (0-5); pH Urine 5.5 (4.5-7.5)
[2023-11-16] MEDS ORDERED: GLUCAGON FOR INJ 1 MG VIAL SQ PRN (08:25)
[2023-11-16] MEDS ORDERED: GLUCOSE 40% GEL 15 GM TUBE PO PRN (08:25)
[2023-11-16] MEDS ORDERED: GLUCOSE 10 TAB/TUBE PO PRN (08:25)
[2023-11-16] MEDS ORDERED: ALBUTEROL HFA 8 GM INHALER INH PRN (08:25)
[2023-11-16] MEDS ORDERED: NITROGLYCERIN SL 0.4 MG/TAB TAB SL PRN (08:25)
[2023-11-16] MEDS ORDERED: busPIRone 5 MG TAB PO PRN (08:25)
[2023-11-16] MEDS ORDERED: hydrOXYzine HCl 25 MG TAB PO SCH (08:25)
[2023-11-16] MEDS ORDERED: LACTULOSE SYRUP 10 GM/15 ML BTL 960 ML PO PRN (08:49)
[2023-11-16] MEDS: SODIUM CHLORIDE 0.9% 1,000 ML IV SCH (08:53)
[2023-11-16] MEDS: INSULIN ASPART PER UNIT CHARGE SC SCH ×2 (09:20→17:16)
[2023-11-16 09:39] LABS: Basophils # (auto) 0.05 K/uL (0.00-0.20); Basophils % (auto) 0.7 %; Eosinophils # (auto) 0.28 K/uL (0.00-0.50); Eosinophils % (auto) 3.9 %; Hematocrit (blood only) 29.9 % (42.0-52.0); Immature Granulocytes # (auto) 0.02 K/uL (0.01-0.20); Immature Granulocytes % (auto) 0.3 %; Lymphocytes # (auto) 1.12 K/uL (1.20-3.40); Lymphocytes % (auto) 15.6 %; Mean Corpuscular Hemoglobin 30.7 pg (25.0-34.0); Mean Corpuscular Hgb Conc 33.4 g/dL (32.0-36.0); Mean Corpuscular Volume 91.7 fL (80.0-100.0); Mean Platelet Volume 9.6 fL (9.4-12.4); Monocytes # (auto) 0.89 K/uL (0.11-0.59); Monocytes % (auto) 12.4 %; Neutrophils # (auto) 4.83 K/uL (1.40-6.50); Neutrophils % (auto) 67.1 %; Platelet Count 257 K/uL (130-400); RDW Coefficient of Variation 14.4 % (11.5-14.5); RDW Standard Deviation 48.2 fL (36.4-46.3); Red Blood Count 3.26 M/uL (4.70-6.10); White Blood Count 7.19 K/ul (4.8-10.8)
--- NOTE | 2023-11-16 09:39 | Gastrointestinal Consultation ---
<Statement entered by Kalpana Solis MD - 11/16/23 16:26> I have examined the patient, reviewed the History & Physical and in the interval since the performance of the History & Physical I have noted the following changes of clinical significance: no changes noted. I agree with the documentation provided by TONO Hartley. No evidence of acute pancreatitis; known pancreatic cyst should be followed as an outpatient. Agree with treatment for diverticulitis with zosyn and slow diet advancement. If concern for peritoneal infection persists, an aspirate of peritoneal fluid could be acquired and sent for cell count and cultures. An outpatient colonoscopy should be considered in 6-8 weeks to rule out underlying malignancy or other sigmoid pathology. Date of Consultation November 16, 2023 Assessment & Plan (1) Diverticulitis: Patient admitted with complaints of abdominal pain, with imaging concerning for diverticulitis as well as free foci of air which may represent a perforation of viscous vs manipulation of peritoneal dialysis catheter. Surgery has seen and evaluated the patient. conservative management recommended by surgical team. Patient has seen improvement in symptoms and currently denies any abdominal pain. exam this morning is benign. - continue with IV zosyn. - Given that there is no pancreatitis seen on imaging and lipase was only 168, at this time would not suspect a component of pancreatitis. History of Present Illness Reason for Consultation: pancreatitis? Requesting Physician: Michael Briceño MD Attending Physician: Yina Aguilar MD History of Present Illness Patient is an 83 year old male with past medical history significant for type 2 diabetes, hypothyroidism, hyperlipidemia, hyperparathyroidism secondary to renal disease, cyst of pancreas, postoperative hypothyroidism, history of hypokalemia, end-stage renal disease on peritoneal dialysis, history of COPD, chronic diastolic CHF, left ventricular hypertrophy, hypertension, left bundle branch block, enlargement of aortic root, pulmonary hypertension, persistent atrial fibrillation, GERD, iron deficiency anemia, panic disorder, anxiety disorder, history of thyroid cancer, history of prostate cancer, history of hyponatremia, presented to the [facility] with complaints of abdominal pain. He tells me that this started after receiving dialysis. He tells me that it is not unusual for him to have some pain after this but the pain never resolved and was atypical. He feels pain was worsening so he proceeded to ED for evaluation. He underwent a CT scan showing diverticulitis of sigmoid colon as well as concern for small fluid in abdomen/pelvis and free foci of air concerning for perforation of viscous vs manipulation of peritoneal dialysis cath. Surgery had seen him and evaluated him. It was suspected this was diverticulitis with possible microperforation. conservative management was recommended and he was started on zosyn. There was also a question of pancreatitis given he had a lipase of 168 on admission, but CT shown no signs of pancreatitis. He tells me that currently his pain has resolved and he is feeling much better. Patient denies any current issues with nausea, vomiting, dysphagia, heartburn, change in bowels, melena, or bright red blood per rectum. He admits to a colonoscopy last done 15 years that he reports was unremarkable. he is not positive where this was done. Allergies Allergy/AdvReac Type Severity Reaction Status Date / Time clonidine Allergy Unknown allergic Unverified 11/16/23 02:23 to all but 1 brand carvedilol Allergy Hives Verified 11/16/23 02:23 losartan Allergy Unknown Verified 11/16/23 02:23 ANJELICA Inhibitors AdvReac Intermediate INTOLERANCE Verified 11/16/23 02:23 PER MD ORDER allopurinol AdvReac Intermediate severe abd Verified 11/16/23 02:23 pain Beta-Blockers AdvReac Intermediate INTOLERANCE Verified 11/16/23 02:23 (Beta-Adrenergic Bloc PER DR ARELLANO doxazosin AdvReac Intermediate INTOLERANCE Verified 11/16/23 02:[address] ARELLANO Gnarwek-NTU-RlK Reductase AdvReac Intermediate INTOLERANCE Verified 11/16/23 02:23 Inhibitor PER [Znjwcyb-Myc-Lna Reductase ADAN Inhibitor] citalopram AdvReac Unknown Verified 11/16/23 02:23 hydralazine AdvReac diarrhea, Verified 11/16/23 02:23 testicular pain hydrochlorothiazide AdvReac hyponatremi Verified 11/16/23 02:23 a lisinopril AdvReac Cough Verified 11/16/23 02:23 simvastatin [From Zocor] AdvReac Muscle Pain Verified 11/16/23 02:23 sitagliptin [From Januvia] AdvReac restlessnes Verified 11/16/23 02:23 s Home Medications Medication Instructions Recorded Confirmed Type allopurinol 100 mg tablet 100 mg PO QAM 02/25/18 11/16/23 History levothyroxine 150 mcg tablet 150 mcg PO DAILYBB 08/12/20 11/16/23 History torsemide 100 mg tablet 100 mg PO QAM 08/29/22 11/16/23 History albuterol sulfate 90 mcg/actuation 2 puff inhalation Q4 PRN Wheezing 08/22/23 11/16/23 History aerosol inhaler apixaban 2.5 mg tablet (Eliquis) 2.5 mg PO AMHS 08/22/23 11/16/23 History buspirone 5 mg tablet 5 mg PO Q4 PRN Anxiety 08/22/23 11/16/23 History glipizide 10 mg tablet 10 mg PO AMHS 08/22/23 11/16/23 History hydrocodone 5 mg-acetaminophen 325 1 tab PO Q6 PRN Pain 08/22/23 11/16/23 History mg tablet hydroxyzine HCl 25 mg tablet 25 mg PO UD 08/22/23 11/16/23 History lactulose 10 gram/15 mL oral 15 ml PO BID PRN severe 08/22/23 11/16/23 History solution constipation potassium chloride 10 mEq 20 meq PO .HOLD 08/22/23 11/16/23 History tablet,extended release(part/cryst) terazosin 1 mg capsule 1 mg PO HS 08/22/23 11/16/23 History vitamin B complex-vitamin C-folic 1 tab PO DAILY 08/22/23 11/16/23 History acid 0.8 mg tablet (Jessie-Joycelyn) cholecalciferol (vitamin D3) 25 50 mcg PO QAM 11/16/23 11/16/23 History mcg (1,000 unit) tablet (Vitamin D3) hydrocortisone 2.5 % topical cream 1 applic ND BID PRN Hemorrhoids 11/16/23 11/16/23 History with perineal applicator (Anusol-HC) metoprolol succinate 25 mg 12.5 mg PO QAM 11/16/23 11/16/23 History tablet,extended release 24 hr ondansetron 4 mg disintegrating 4 mg translingual Q8 PRN Nausea 11/16/23 11/16/23 History tablet Patient History Medical History Gout Pulmonary hypertension LBBB (left bundle branch block) COPD (chronic obstructive pulmonary disease) Spinal stenosis Family History Other Diabetes Hypertension Social History Smoking Status: Former smoker Cigarettes Per Day: 10; Smoking End Date: 35 years ago; Second Hand Exposure: No; Do You Dip or Chew Tobacco: No; Hx Alcohol Use: No Hx Substance Use: No Preferred Language: Pakistani Communication Ability: Effective Sourcing Engineer Required: No Beliefs That Will Affect Care: None marital status: Current Living Situation: Spouse Other Information That Helps Us Care for You: No Feels Safe at Home: Yes Safety Concerns: Feels Safe At This Time Assistive Devices: Cane, Denture - Upper, Denture - Lower and Walker Review of Systems Review of Systems: All systems reviewed & are unremarkable except as noted in HPI & below Physical Exam Constitutional: WD/WN, vitals as above Respiratory: normal respiratory effort, lungs clear to auscultation Cardiovascular: RRR, no murmur, no edema Gastrointestinal (Abdomen): normal bowel sounds, soft, nontender, no hepa tosplenomegaly Psychiatric: Orientation: alert and oriented x 3 Affect: euthymic affect Results & Data Vital Signs (Past 12 Hours) Vital Signs Temp Pulse Pulse Pulse Resp BP BP 11/16/23 09:28 93 H 11/16/23 08:30 11/16/23 08:29 98.2 F 75 103/60 11/16/23 07:41 89 17 101/79 11/16/23 05:06 89 11/16/23 03:25 108 H 16 97/67 L 11/16/23 02:30 20 89/72 L 11/16/23 01:50 99 H 11/16/23 01:31 114 H 107/72 11/16/23 01:20 122 H 22 11/16/23 01:20 122 H 22 172/139 H 11/16/23 01:07 115 H 11/16/23 00:38 99.0 F 112 H 18 113/66 Pulse Ox Pulse Ox O2 Del Method O2 Del Method 11/16/23 09:28 11/16/23 08:30 95 Room Air 11/16/23 08:29 95 Room Air 11/16/23 07:41 97 Room Air 11/16/23 05:06 11/16/23 03:25 95 Room Air 11/16/23 02:30 11/16/23 01:50 11/16/23 01:31 11/16/23 01:20 95 Room Air 11/16/23 01:20 95 Room Air 11/16/23 01:07 11/16/23 00:38 97 Room Air Coding Level of Care Code 49062 INT INP/OBS CARE MIN Diagnoses Diverticulitis K57.92
[2023-11-16] MEDS: NEPHROCAPS PO SCH (09:45)
[2023-11-16] MEDS: TORSEMIDE 100 MG TAB PO SCH (09:45)
[2023-11-16] MEDS: METOPROLOL SUCC 25MG EXT REL TAB PO SCH (09:45)
[2023-11-16] MEDS: LEVOTHYROXINE SODIUM 150 MCG TABLET PO SCH (09:45)
[2023-11-16] MEDS: CHOLECALCIFEROL 25 MCG (1000 UNITS) TAB PO SCH (09:45)
[2023-11-16 09:58] LABS: BUN Creatinine Ratio 9.6 (10-20); Calcium 8.8 mg/dl (8.6-10.3); Creatinine Clr Calc Pharmacy 8.2 ml/min; Est GFR (African American) 7.3 ml/min; Est GFR (Non-African American) 6.3 ml/min; Magnesium 2.3 mg/dl (1.7-2.4); Potassium 4.6 mmol/L (3.5-5.1)
[2023-11-16 10:12] LABS: Thyroid Stimulating Hormone 4.095 uIu/ml (0.300-4.500)
[2023-11-16] MEDS: allopurinoL 100 MG TAB PO SCH (10:24)
--- NOTE | 2023-11-16 10:24 | Nephrology Consultation ---
Date of Consultation November 16, 2023 Assessment & Plan (1) End-stage renal disease on peritoneal dialysis: 83-year-old male with ESRD on peritoneal dialysis. He normally does 3-4 exchange manually at home. He has extreme anxiety issue and does not like taking medications which means we never know what exactly is taking and how much dialysis she is he actually doing at home. appears to be slightly volume overloaded but still better than last time I saw him in the clinic. Renal labs appear as expected for ESRD. No evidence of major electrolyte problems. no abdominal pain and no issues reported with peritoneal dialysis at home. we should be able to do peritoneal dialysis tonight and will do with cycler for 10 hours for exchange with all 2.5% solution. (2) Diverticulitis: Based on imaging symptoms and specialists note it appears to be diverticulitis. however his symptoms are fairly minimal and at the time of my exam he had no symptoms. already on antibiotics. Plan assessment and plan discussed with primary team. Reviewed Gastroenterology as well as General Surgery note in detail to come up with my assessment and plan History of Present Illness Reason for Consultation: ESRD on PD now admitted with Diverticulitis Attending Physician: Yina Aguilar MD History of Present Illness 83/M with ESRD on Home PD, type 2 diabetes, hypothyroidism, hyperlipidemia, hyperparathyroidism secondary to renal disease, cyst of pancreas, postoperative hypothyroidism, history of hypokalemia, history of COPD, chronic diastolic CHF, left ventricular hypertrophy, hypertension, left bundle branch block, enlargement of aortic root, pulmonary hypertension, persistent atrial fibrillation, GERD, iron deficiency anemia, panic disorder, anxiety disorder, history of thyroid cancer, history of prostate cancer, history of hyponatremia, who lives at home with his and ambulates with a walker was brought in because of abdominal pain which started 2 days ago but was worse last night. The pain is mainly located in the left lower side but sometimes central. has mild nausea but no vomiting or diarrhea or bloody stool. No fevers. Lately Doesn't make much urine. Denies chest pain or shortness of breath. No headache. No blurred vision. No runny nose or sore throat no cough. Currently resting comfortably and hemodynamically stable after he got Pain med. His PD fluid was drained yesterday by his . had CT abdomen and shows ROS---Abd pain and some nausea. Ongoing severe issue with Anxiety/Panic attacks. otherwise 12 Systems reviewed and negative Physical Exam Physical Exam: General- Not in acute distress. Anxious as always Head- atraumatic. oropharynx clear Neck- supple, no JVD. Lungs- clear to auscultation no wheezing or crackles. Heart- regular rhythm; no murmur, no gallop. Abdomen- normal bowel sounds, soft, mild diffuse tenderness. PD cath site --normal. Extremities- Trace edema, no erythema seen. Neuro- alert, oriented ; PERRL no facial palsy; no dysarthria; moves extremities. Allergies Allergy/AdvReac Type Severity Reaction Status Date / Time clonidine Allergy Unknown allergic Unverified 11/16/23 02:23 to all but 1 brand carvedilol Allergy Hives Verified 11/16/23 02:23 losartan Allergy Unknown Verified 11/16/23 02:23 ANJELICA Inhibitors AdvReac Intermediate INTOLERANCE Verified 11/16/23 02:23 PER ORDER allopurinol AdvReac Intermediate severe abd Verified 11/16/23 02:23 pain Beta-Blockers AdvReac Intermediate INTOLERANCE Verified 11/16/23 02:23 (Beta-Adrenergic Bloc PER DR ARELLANO doxazosin AdvReac Intermediate INTOLERANCE Verified 11/16/23 02:[address] ARELLANO Oxmgfdz-VAU-VoP Reductase AdvReac Intermediate INTOLERANCE Verified 11/16/23 02:23 Inhibitor PER [Gtiywnu-Lvf-Odz Reductase ADAN Inhibitor] citalopram AdvReac Unknown Verified 11/16/23 02:23 hydralazine AdvReac diarrhea, Verified 11/16/23 02:23 testicular pain hydrochlorothiazide AdvReac hyponatremi Verified 11/16/23 02:23 a lisinopril AdvReac Cough Verified 11/16/23 02:23 simvastatin [From Zocor] AdvReac Muscle Pain Verified 11/16/23 02:23 sitagliptin [From Januvia] AdvReac restlessnes Verified 11/16/23 02:23 s Home Medications Medication Instructions Recorded Confirmed Type allopurinol 100 mg tablet 100 mg PO QAM 02/25/18 11/16/23 History levothyroxine 150 mcg tablet 150 mcg PO DAILYBB 08/12/20 11/16/23 History torsemide 100 mg tablet 100 mg PO QAM 08/29/22 11/16/23 History albuterol sulfate 90 mcg/actuation 2 puff inhalation Q4 PRN Wheezing 08/22/23 11/16/23 History aerosol inhaler apixaban 2.5 mg tablet (Eliquis) 2.5 mg PO AMHS 08/22/23 11/16/23 History buspirone 5 mg tablet 5 mg PO Q4 PRN Anxiety 08/22/23 11/16/23 History glipizide 10 mg tablet 10 mg PO AMHS 08/22/23 11/16/23 History hydrocodone 5 mg-acetaminophen 325 1 tab PO Q6 PRN Pain 08/22/23 11/16/23 History mg tablet hydroxyzine HCl 25 mg tablet 25 mg PO UD 08/22/23 11/16/23 History lactulose 10 gram/15 mL oral 15 ml PO BID PRN severe 08/22/23 11/16/23 History solution constipation potassium chloride 10 mEq 20 meq PO .HOLD 08/22/23 11/16/23 History tablet,extended release(part/cryst) terazosin 1 mg capsule 1 mg PO HS 08/22/23 11/16/23 History vitamin B complex-vitamin C-folic 1 tab PO DAILY 08/22/23 11/16/23 History acid 0.8 mg tablet (Jessie-Joycelyn) cholecalciferol (vitamin D3) 25 50 mcg PO QAM 11/16/23 11/16/23 History mcg (1,000 unit) tablet (Vitamin D3) hydrocortisone 2.5 % topical cream [address] BID PRN Hemorrhoids 11/16/23 11/16/23 History with perineal applicator (Anusol-HC) metoprolol succinate 25 mg 12.5 mg PO QAM 11/16/23 11/16/23 History tablet,extended release 24 hr ondansetron 4 mg disintegrating 4 mg translingual Q8 PRN Nausea 11/16/23 11/16/23 History tablet Patient History Medical History Gout Pulmonary hypertension LBBB (left bundle branch block) COPD (chronic obstructive pulmonary disease) Spinal stenosis Family History Other Diabetes Hypertension Social History Smoking Status: Former smoker Cigarettes Per Day: 10; Smoking End Date: 35 years ago; Second Hand Exposure: No; Do You Dip or Chew Tobacco: No; Hx Alcohol Use: No Hx Substance Use: No Preferred Language: Italian Communication Ability: Effective Personal Shopper Required: No Beliefs That Will Affect Care: None marital status: Current Living Situation: Spouse Other Information That Helps Us Care for You: No Feels Safe at Home: Yes Safety Concerns: Feels Safe At This Time Assistive Devices: Cane, Denture - Upper, Denture - Lower and Walker Results & Data Vital Signs (Past 12 Hours) Vital Signs Temp Pulse Pulse Pulse Resp BP BP 11/16/23 09:28 93 H 11/16/23 08:30 11/16/23 08:29 36.8 C 75 103/60 11/16/23 07:41 89 17 101/79 11/16/23 05:06 89 11/16/23 03:25 108 H 16 97/67 L 11/16/23 02:30 20 89/72 L 11/16/23 01:50 99 H 11/16/23 01:31 114 H 107/72 11/16/23 01:20 122 H 22 11/16/23 01:20 122 H 22 172/139 H 11/16/23 01:07 115 H 11/16/23 00:38 37.2 C 112 H 18 113/66 Pulse Ox Pulse Ox O2 Del Method O2 Del Method 11/16/23 09:28 11/16/23 08:30 95 Room Air 11/16/23 08:29 95 Room Air 11/16/23 07:41 97 Room Air 11/16/23 05:06 11/16/23 03:25 95 Room Air 11/16/23 02:30 11/16/23 01:50 11/16/23 01:31 11/16/23 01:20 95 Room Air 11/16/23 01:20 95 Room Air 11/16/23 01:07 11/16/23 00:38 97 Room Air Laboratory Results CBC, renal Panel, CT abdomen and Culture report reviewed
[2023-11-16 10:28] LABS: Estimated Average Glucose 220 mg/dl; Hemoglobin A1C 9.3 % (4.5-5.6)
[2023-11-16] MEDS: PIPERACILLIN/TAZOBACTAM 4.5 GM in DEXTROSE 5% MINI-B 100 ML IV SCH (11:07)
--- OUTSIDE RECORDS SUMMARY | 2023-11-16 12:01 | External Medical Summary | Summary of Care ---
Author Name Unknown Organization [facility] Address [address] [place] [address] Phone [phone] Care Team Providers Care Supervisor Tower Name Role Phone Neville David MD Primary Care Provider [phone]- [phone] Reason for Visit * Reason Comments eRx-Medication Refill Encounter Details Date Type Department Care Team (Late st Contact Info) Description 11/04/2023 Refill [facility] [address] [place] [address] Diane Jacobson MD [address] [place] [address] Acquired hypothyroidism; Elevated TSH Allergies [...] as of this encounter (statuses as of 11/05/2023) Medications Medication Sig Dispensed Refills Start Date End Date Status Blood Glucose Monitoring Suppl (ONETOUCH VERIO) w/Device KIT Use up to 4 times a day 1 Kit 8 Active ONETOUCH DELICA LANCETS FINE MISC Use four times daily 100 Each 11 0 Active Renal Vitamin 0.8 MG Oral Tablet Take by mouth. Active OneTouch Verio In Vitro Strip (Glucose Blood)Indications: Type 2 diabetes mellitus with hemoglobin A1c goal of less than 8.0% ([facility]) USE UP TO FOUR TIMES A DAY 400 Strip 3 3 Active Lactulose 10 GM/15ML Oral Solution (Constulose)Indica tions:Other constipation TAKE 15 ML BY MOUTH TWICE A DAY NEEDED FOR SEVERE CONSTIPATION 237 mL 3 3 Active Ventolin HFA 108 (90 Base) MCG/ACT Inhalation Aerosol SolutionIndication s:LRTI (lower respiratory tract infection) Inhale 2 Puffs by mouth every 4 hours as needed for Wheezing or Dyspnea. 1 g 3 Active Additional Information Patient not taking.Reported on 09/14/2023 Allopurinol 100 MG Oral Tablet (Zyloprim) Take 1 Tablet by mouth in the morning. 30 Tablet 5 4 Active D3-1000 25 MCG (1000 UT) Oral Tablet (Cholecalciferol) Take 2 Tablets by mouth in the morning. Active B Complex Vitamins Oral Capsule Take 1 Capsule by mouth in the morning. Active Hydrocortisone (Perianal) 2.5 % External Cream (Anusol-HC)Indicat ions:Hemorrhoids, external without complications Apply to hemorrhoids twice per day as needed 28 g 1 4 Active busPIRone HCl 5 MG Oral Tablet (Buspar) Take 1 Tablet by mouth every 4 hours as needed for Agitation or Anxiety. 30 Tablet 5 4 Active Cyclobenzaprine HCl 5 MG Oral Tablet (Flexeril) Take 1 Tablet by mouth at bedtime as needed for Muscle spasms. Active Potassium Chloride ER 20 MEQ Oral Tablet Extended Release Take 1 Tablet by mouth in the morning. Active Torsemide 100 MG Oral Tablet (Demadex) Take 1 Tablet by mouth in the morning. 30 Tablet 5 4 Active Eliquis 2.5 MG Oral Tablet (Apixaban) Take 1 Tablet by mouth in the morning and 1 Tablet before bedtime. 180 Tablet 1 4 Active Metoprolol Succinate ER 25 MG Oral Tablet Extended Release 24 Hour (toPROL XL) Take 1 Tablet by mouth in the morning. 30 Tablet 5 4 Active Terazosin HCl 1 MG Oral Capsule (Hytrin)Indication s:Persistent atrial fibrillation (HCC) Take 1 Capsule by mouth at bedtime. 90 Capsule 4 Active HYDROcodone-Acetam inophen 5-325 MG Oral TabletIndications: Acute right-sided low back pain without sciatica Take 1 Tablet by mouth every 6 hours as needed for Pain, Mild or Pain, Severe. 30 Tablet 4 Active glipiZIDE 10 MG Oral Tablet (Glucotrol) TAKE 1 TABLET BY MOUTH TWICE DAILY EVERY MORNING AND BEFORE BEDTIME. TAKE 30 MINUTES BEFORE A MEAL 180 Tablet 1 4 Active Ondansetron 4 MG Oral Tablet Disintegrating (Zofran)Indication s:Nausea Dissolve 1 tablet on tongue every 8 hours as needed for Nausea. 20 Tablet 1 4 Active Levothyroxine Sodium 150 MCG Oral Tablet (Levoxyl)Indicatio ns:Acquired hypothyroidism,Smita vated TSH TAKE 1 TABLET DAILY 1ST THING IN MORNING AT LEAST 30 MIN PRIOR TO BREAKFAST OR OTHER MEDS 90 Tablet 2 4 Active Levothyroxine Sodium 150 MCG Oral Tablet (Levoxyl)Indicatio ns:Acquired hypothyroidism,Smita vated TSH TAKE 1 TABLET BY MOUTH EVERY MORNING AT LEAST 30 MINUTES PRIOR TO BREAKFAST OR OTHER MEDS. 90 Tablet 1 3 11/05/19 24 Discontinued documented as of this encounter (statuses as of 11/05/2023) Active Problems Problem Noted Date Diagnosed Date Persistent atrial fibrillation 06/07/2023 Hypertensive heart disease [...] peritoneal dialysis 10/26/2022 Hyponatremia 08/21/2022 Hypokalemia 08/21/2022 Hypotension 08/21/2022 Iron deficiency anemia 08/20/2022 Chronic kidney disease (CKD), stage V 08/20/2022 Enlargement of aortic root 05/14/2022 Postoperative hypothyroidism 05/14/2022 Pulmonary hypertension 05/14/2022 Rotator cuff syndrome of left shoulder Chronic diastolic congestive heart failure 03/17 Cyst of pancreas 03/17/2022 Hyperparathyroidism, 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 CKD, patient preferred treat ment modality non-dialysis conservative care 09/19/2020 Type 2 diabetes mellitus wit h stage [...] as of this encounter (statuses as of 11/05/2023) Resolved Problems Problem Noted Date Diagnosed Date Resolved Date Chronic obstructive pulmonary disease 06/07/2023 09/14/2023 Atrial fibrillation 08/21/2022 09/14/19 Chronic obstructive pulmonary disease 03/17/2022 04/22/2023 Overview: Per COPD GOLD Classification Kidney disease, chronic, sta ge IV (GFR 15-29 ml/min) 08/27/2020 09/27/2023 Stage 3 chronic kidney disease 11/11/2018 04/27/2022 Hypertensive heart and kidne y disease with chronic diastolic congestive heart failure and stage 3 chronic kidney disease 06/30/201812/14 HTN, goal below 150/90 07/20/201702/23 Kidney disease, chronic, sta ge III (GFR 30-59 ml/min) 05/18/2016 07/19/2018 Overview: Per CKD protocol #1 Hypertensive heart disease w [facility] congestive heart failure 08/27/2014 08/27/2014 Hypertensive heart disease w [facility] congestive heart failure 08/27/2014 05/25/2019 Overview: [...] as of this encounter (statuses as of 11/05/2023) Immunizations Name Administration Dates Next Due COVID-19 mRNA, LNP-s, No Pre serve, 2-Dose Series ([employer]) 02/20/2021,01/30/2021 Pneumococcal Conjugate Vacc, 13 Valent (Prevnar) [...] Answer Date Recorded PHQ Adult Total Score 19 09/07/2023 Hunger Vital Sign Answer Date Recorded Within the past 12 months, y ou worried that your food would run out before you got the money to buy more. Never true 10/12/19 24 Within the past 12 months, t he food you bought just didn't last and you didn't have money to get more. Never true 10/12/2023 Sex and Gender Information Value Date Recorded [...] encounter Miscellaneous Notes * Telephone Encounter - Toy Larson [facility] - 11/05/2023 7:07 AM EDTSigned Prescriptions: Disp Refills Levothyroxine Sodium 150 MCG Oral Tablet (*90 Tab*2 Sig: TAKE 1 TABLET DAILY 1ST THING IN MORNING AT LEAST 30 MIN PRIOR TO BREAKFAST OR OTHER MEDSAuthorizing Provider: NEVILLE DAVID User: TOY LARSON documented in this encounter Plan of Treatment Upcoming Encounters Date Type Department Care Team (Late st Contact Info) Description 01/31/2024 2:00 PM EDT Office Visit [facility] [place] [address] [facility], [place] [address] Gina Nich[facility]C [address] [facility] [address] 02/22/2024 3:40 PM EDT Office Visit [facility] [place] [address] [facility] [address] Neville David MD [address] [place] [facility] [place] [facility] [place] [address] Health Maintenance Due Date Last Done Comments Alpha-1 Antitrypsin 1959 Zoster Vaccines (1 of 2) 1991 DTaP,Tdap,and Td Vaccines (1 - Tdap) 04/28/2008 04/27/2008 Diabetic Foot Exam 02/06/2021 02/07/2020, 0 07/04/2018, 06/30/2017, Additional history exists *COPD SEVERITY VERIFIED BY PFT 03/19/2022 COVID-19 Vaccine ( season) 2023 02/20/2021, 01/30/2021 O2 ASSESSMENT COMPLETED IN PAST YEAR FOR COPD 11/13/2023 11/12/2022 HbA1c 03/04/2024 09/03/2023, 02/07, 11/02/2022, Additional history exists Diabetic Eye Exam 07/08/2024 07/09/2023, , 03/29/2019, Additional history exists TSH 08/09/2024 08/10/2023, 03/12, 03/03/2023, Additional history exists Depression Monitoring 09/06/2024 09/07/2023, 024 Pneumococcal Vaccine: 65+ Years Completed 01/26/2018, 01/30/2006 Influenza Vaccine (FLU shot) Completed , 03/17/2022, 04/28/2021, Additional history exists Hepatitis B Completed 04/20/2023, 10/0 07/2022, 01/14/2023 GARDASIL-HPV IMMUNIZATION SERIES Aged Out No longer eligible based on patient's age to complete this topic MENINGOCOCCAL (MENACTRA/MENVEO) Aged Out No longer eligible based on patient's age to complete this topic documented as of this encounter Medical Devices Implanted Type Area Wet Finisher Wool Device Identifier Shelf Expiration Date Model / Serial / Lot Mesh Flat Sheet 1x4 [id number] - [id number] Implanted:Qty: 1 on 11/12/2022 by Willie Musa MD at OR [facility] Right: Groin CR BARD : DAVOL 09/04/2025 [id number] / / [id number] documented as of this encounter Visit Diagnoses Diagnosis Acquired hypothyroidism Unspecified hypothyroidism Elevated TSH Other abnormal blood chemistry documented in this encounter Advance Directives * Full Code (Latest Code Status on File) Date Activated Date Inactivated Comments 11/12/2022 6:34 AM 11/12/2022 3:08 PM Question Answer Comments Discussion of Advance Direct deisy occurred with: Not Discussed due to patient's condition * No Code Date Activated Date Inactivated Comments 11/02/2022 10:15 PM 11/06/2022 5:34 PM This order reflects the patients wishes and were consensually agreed upon. Question Answer Comments Discussion of Advance Directives occurred with: Patient * Full Code Date Activated Date Inactivated Comments 11/02/2022 9:42 PM 11/02/2022 10:14 PM This order reflects the patients wishes and were consensually agreed upon. Question Answer Comments Discussion of Advance Directives occurred with: Patient * No Code Date Activated Date Inactivated Comments 08/21/2022 4:52 PM 08/26/2022 5:08 PM This order r eflects the patients wishes and were consensually agreed upon. Question Answer Comments Discussion of Advance Directives occurred with: Patient * Full Code Date Activated Date Inactivated Comments 08/21/2022 1:26 PM 08/21/2022 4:52 PM Question Answer Comments Discussion of Advance Direct deisy occurred with: Not Discussed due to patient's condition Does the patient have a Living Will? No Does the patient have Health Care Power of Photographic Colorist? No Care Teams Supervisor Tower Relationship Specialty Start Date End Date Neville David MD [address] [place] [facility] [place] [address] PCP - General 04/10/02 documented as of this encounter
--- OUTSIDE RECORDS SUMMARY | 2023-11-16 12:01 | External Medical Summary | Summary of Care ---
Author Name Unknown Organization [facility] Address [address] [facility] [address] Phone [phone] Care Team Providers Care Stitch Marker Name Role Phone Pramod Damian MD Primary Care Provider [phone]- [phone] Encounter Details Date Type Department Care Team (Late st Contact Info) Description 11/01/2023 Population Health External Data Unspecified Department Allergies [...] as of this encounter (statuses as of 11/02/2023) Medications Medication Sig Dispensed Refills Start Date End Date Status Blood Glucose Monitoring Suppl (ONETOUCH VERIO) w/Device KIT Use up to 4 times a day 1 Kit 11/11/2017 Active ONETOUCH DELICA LANCETS FINE MISC Use four times daily 100 Each 11 05/12/2019 Active Renal Vitamin 0.8 MG Oral Tablet Take by mouth. Active OneTouch Verio In Vitro Strip (Glucose Blood)Indications:Ty pe 2 diabetes mellitus with hemoglobin A1c goal of less than 8.0% ([facility]) USE UP TO FOUR TIMES A DAY 400 Strip 3 10/28/2022 Active Lactulose 10 GM/15ML Oral Solution (Constulose)Indicati ons:Other constipation TAKE 15 ML BY MOUTH TWICE A DAY NEEDED FOR SEVERE CONSTIPATION 237 mL 3 2023 Active Ventolin HFA 108 (90 Base) MCG/ACT Inhalation Aerosol SolutionIndications: LRTI (lower respiratory tract infection) Inhale 2 Puffs by mouth every 4 hours as needed for Wheezing or Dyspnea. 1 g 02/27/2023 Active Additional Information Patient not taking.Reported on 09/14/2023 Levothyroxine Sodium 150 MCG Oral Tablet (Levoxyl)Indications :Acquired hypothyroidism,[place] amy TSH TAKE 1 TABLET BY MOUTH EVERY [...] Active Hydrocortisone (Perianal) 2.5 % External Cream (Anusol-HC)Indicatio ns:Hemorrhoids, external without complications Apply to hemorrhoids twice per day as needed 28 g 1 07/29/2023 Active busPIRone HCl 5 MG Oral Tablet (Buspar) Take 1 Tablet by mouth every 4 hours as needed for Agitation or Anxiety. 30 Tablet 5 08/09/2023 Active Cyclobenzaprine HCl 5 MG Oral Tablet (Flexeril) Take 1 Tablet by mouth at bedtime as needed for Muscle spasms. Active Potassium Chloride ER 20 MEQ Oral Tablet Extended Release Take 1 Tablet by mouth in the morning. Active Torsemide 100 MG Oral Tablet (Demadex) Take 1 Tablet by mouth in the morning. 30 Tablet 5 09/15/2023 Active Ondansetron 4 MG Oral Tablet Disintegrating (Zofran)Indications: Nausea Place 1 Tablet on tongue every 8 hours as needed for Nausea. dissolve on tongue. 20 Tablet 09/14/2023 Active Eliquis 2.5 MG Oral Tablet (Apixaban) Take 1 Tablet by mouth in the morning and 1 Tablet before bedtime. 180 Tablet 1 09/28/2023 Active Metoprolol Succinate ER 25 MG Oral Tablet Extended Release 24 Hour (toPROL XL) Take 1 Tablet by mouth in the morning. 30 Tablet 5 09/28/2023 Active Terazosin HCl 1 MG Oral Capsule (Hytrin)Indications: Persistent atrial fibrillation (HCC) Take 1 Capsule by mouth at bedtime. 90 Capsule 10/11/2023 Active HYDROcodone-Acetamin ophen 5-325 MG Oral TabletIndications:Ac velma right-sided low back pain without sciatica Take 1 Tablet by mouth every 6 hours as needed for Pain, Mild or Pain, Severe. 30 Tablet 10/28/2023 Active glipiZIDE 10 MG Oral Tablet (Glucotrol) TAKE 1 TABLET BY MOUTH TWICE DAILY EVERY MORNING AND BEFORE BEDTIME. TAKE 30 MINUTES BEFORE A MEAL 180 Tablet 1 10/28/2023 Active documented as of this encounter (statuses as of 11/02/2023) Active Problems Problem Noted Date Diagnosed Date [...] as of this encounter (statuses as of 11/02/2023) Resolved Problems Problem Noted Date Diagnosed Date Resolved Date Chronic obstructive pulmonary disease 06/07/2023 09/14/2023 Atrial fibrillation 08/21/2022 09/14/19 24 Chronic obstructive pulmonary disease 03/17/2022 04/22/2023 Overview: [...] CKD protocol #1 Hypertensive heart disease w [facility] congestive heart failure 08/27/2014 08/27/2014 Hypertensive heart disease w [facility] congestive heart failure 08/27/2014 05/25/2019 [...] as of this encounter (statuses as of 11/02/2023) Immunizations Name Administration Dates Next Due COVID-19 mRNA, LNP-s, No Pre serve, 2-Dose Series ([employer]) 02/20/2021,01/30/2021 Pneumococcal Conjugate Vacc, 13 Valent (Prevnar) [...] Description 01/31/2024 2:00 PM EDT Office Visit [place] [address] [place] [id number] Gina Nichole PA-C [address] [place] [address] 02/22/2024 3:40 PM EDT Office Visit [facility] [address] [place] [id number] Pramod Damian MD [address] [place] [address] Health Maintenance Due Date Last Done Comments [...] this encounter Medical Devices Implanted Type Area Contract Paralegal Device Identifier Shelf Expiration Date Model / Serial / Lot Mesh Flat Sheet 1x4 [id number] - [id number] Implanted:Qty: 1 on 11/12/2022 by Willie Musa MD at OR [facility] Right: Groin CR BARD : DAVOL 09/04/2025 [id number] / / [id number] documented as of this encounter Advance Directives * Full Code [...] the patient have Health Care Power of Offal Icer Poultry? No Care Teams Stitch Marker Relationship Specialty Start Date End Date Pramod Damian MD [address] [place] [address] PCP - General 04/10/02 documented as of this encounter
--- OUTSIDE RECORDS SUMMARY | 2023-11-16 12:01 | External Medical Summary | Summary of Care ---
Author Name Unknown Organization [facility] Address [address] [place] [address] Phone [phone] Care Team Providers Care Snaker Tractor Driver Name Role Phone Neville David MD Primary Care Provider [phone]- [phone] Reason for Referral * Medication Prior Authorization - Closed Specialty Diagnoses / Procedures Referred By Contelisa t Referred To Contact Diagnoses Nausea Neville David MD [address] [place] [address] Referral ID Status Reason Start Date Expiration Date Visits Re quested Visits Authorized [id number] Closed 999 342 Reason for Visit * Reason Comments eRx-Medication Refill Encounter Details Date Type Department Care Team (Late st Contact Info) Description 11/01/2023 Refill [facility] [address] [place] [id number] Benito Du MD [address] [place] [address] Nausea Allergies Active Allergy Reactions Criticality Noted Date [...] End Date Status Blood Glucose Monitoring Suppl ([employer] VERIO) w/Device KIT Use up to 4 times a day 1 Kit 8 Active ONETOUCH DELICA LANCETS FINE MISC Use four times daily 100 Each 11 0 Active Renal Vitamin 0.8 MG Oral Tablet Take by mouth. Active RockaboxTouch Verio In Vitro Strip (Glucose Blood)Indications: Type 2 diabetes mellitus with hemoglobin A1c goal of less than 8.0% ([facility]) USE UP TO FOUR TIMES A DAY [...] 09/14/2023 Levothyroxine Sodium 150 MCG Oral Tablet (Levoxyl)Indicatio ns:Acquired hypothyroidism,Smita vated TSH TAKE 1 TABLET BY MOUTH EVERY MORNING AT LEAST 30 MINUTES PRIOR TO BREAKFAST OR OTHER MEDS. 90 Tablet 1 3 Active Allopurinol 100 MG Oral Tablet (Zyloprim) [...] for Nausea. 20 Tablet 1 4 Active Ondansetron 4 MG Oral Tablet Disintegrating (Zofran)Indication s:Nausea Place 1 Tablet on tongue every 8 hours as needed for Nausea. dissolve on tongue. 20 Tablet 4 11/02/19 24 Discontinued documented as of this encounter [...] CKD protocol #1 Hypertensive heart disease w [facility] congestive heart failure 08/27/2014 08/27/2014 Hypertensive heart disease w [facility] congestive heart failure 08/27/2014 05/25/2019 [...] mRNA, LNP-s, No Pre serve, 2-Dose Series ([employer]) 02/20/2021,01/30/2021 Pneumococcal Conjugate Vacc, 13 Valent (Prevnar) [...] Telephone Encounter - Neville David MD - 11/02/2023 7:05 PM EDTSigned Prescriptions: Disp Refills Ondansetron 4 MG Oral Tablet Disintegratin*20 Tab*1 Sig: Dissolve 1 tablet on tongue every 8 hours as needed for Nausea.Authorizing Provider: NEVILLE DAVID---- * Telephone Encounter - Renay Lowe [facility] - 11/02/2023 9:55 AM EDT Pending Prescriptions: Disp Refills Ondansetron 4 MG Oral Tablet Disintegratin*20 Tab*0 Sig: Dissolve 1 tablet on tongue every 8 hours as needed for Nausea. * Telephone Encounter - Renay Lowe [facility] - 11/02/2023 9:53 AM EDT Forwarding to provider for further evaluation. Please approve and authorize additional refills if you would like patient to continue medication. Thank you, Renay Lowe, PharmD Clinical Pharmacist [facility] 11/02/23 9:54 AM [phone] documented in this encounter Plan of Treatment Upcoming Encounters Date Type Department Care Team (Late st Contact Info) Description 01/31/2024 2:00 PM EDT [facility] [place] [address] [facility] [address] [facility]C [address] [facility] [id number] 02/22/2024 3:40 PM EDT [facility] [place] [address] [facility] [address] Neville David MD [address] [facility] [place] [address] Health Maintenance Due Date Last Done [...] this encounter Medical Devices Implanted Type Area Dye Weigher Device Identifier Shelf Expiration Date Model / Serial / Lot Mesh Flat Sheet 1x4 [id number] - [id number] Implanted:Qty: 1 on 11/12/2022 by Willie Musa MD at [facility] Right: Anila GALICIA BARD : DAVKELLY 09/04/2025 [id number] / / [id number] documented as of this encounter Visit Diagnoses Diagnosis Nausea Nausea alone documented in this encounter Advance Directives * [...] the patient have Health Care Power of Core Fitter? No Care Teams Snaker Tractor Driver Relationship Specialty Start Date End Date Neville David MD [address] [place] [address] PCP - General 04/10/02 documented as of this encounter
--- OUTSIDE RECORDS SUMMARY | 2023-11-16 12:01 | External Medical Summary | Summary of Care ---
Author Name Unknown Organization [facility] Address [address] [place] [address] Phone [phone] Care Team Providers Care Cyber Intel Planner Name Role Phone Neville David MD Primary Care Provider +1- [phone] Reason for Referral * Medication Prior Authorization - Closed Specialty Diagnoses / Procedures Referred By Cal t Referred To Contact Diagnoses Acute right-sided low back pain without sciatica Neville David MD [address] [place] [address] Referral ID Status Reason Start Date Expiration Date Visits Re quested Visits Authorized [id number] Closed 999 999 Reason for Visit * Reason Onset Date Comments Medication Refill 11/09/2023 Encounter Details Date Type Department Care Team (Late st Contact Info) Description 11/09/[address] [facility] [address] [place] [place] [phone] Neville David MD [address] [place] [address] Acute right-sided low back pain [...] as of this encounter (statuses as of 11/10/2023) Medications Medication Sig Dispensed Refills Start Date End Date Status Blood Glucose Monitoring Suppl (avox VERIO) w/Device KIT Use up to 4 times a day 1 Kit 11/11/2017 Active ONETOUCH DELICA LANCETS FINE MISC Use four times daily 100 Each 11 05/12/2019 Active Renal Vitamin 0.8 MG Oral Tablet Take by mouth. Active WorldVizTouch Verio In Vitro Strip (Glucose Blood)Indications:T ype 2 diabetes mellitus with hemoglobin A1c goal of less than 8.0% ([facility]) USE UP TO FOUR TIMES A DAY 400 Strip 3 10/28/2022 Active Lactulose 10 GM/15ML Oral Solution (Constulose)Indicat [...] the morning. 30 Tablet 5 09/15/2023 Active Eliquis 2.5 MG Oral Tablet (Apixaban) Take 1 Tablet by mouth in the morning and 1 Tablet before bedtime. 180 Tablet 1 09/28/2023 Active Metoprolol Succinate ER 25 MG Oral Tablet Extended Release 24 Hour (toPROL XL) Take 1 Tablet by mouth in the morning. 30 Tablet 5 09/28/2023 Active Terazosin HCl 1 MG Oral Capsule (Hytrin)Indications :Persistent atrial fibrillation (HCC) Take 1 Capsule by mouth at bedtime. 90 Capsule 10/11/2023 Active glipiZIDE 10 MG Oral Tablet (Glucotrol) TAKE 1 TABLET BY MOUTH TWICE DAILY EVERY MORNING AND BEFORE BEDTIME. TAKE 30 MINUTES BEFORE A MEAL 180 Tablet 1 10/28/2023 Active Ondansetron 4 MG Oral Tablet Disintegrating (Zofran)Indications :Nausea Dissolve 1 tablet on tongue every 8 hours as needed for Nausea. 20 Tablet 1 11/02/2023 Active Levothyroxine Sodium 150 MCG Oral Tablet (Levoxyl)Indication s:Acquired hypothyroidism,Elev ated TSH TAKE 1 TABLET DAILY 1ST THING IN MORNING AT LEAST 30 MIN PRIOR TO BREAKFAST OR OTHER MEDS 90 Tablet 2 11/05/2023 Active HYDROcodone-Acetami nophen 5-325 MG Oral TabletIndications:A cute right-sided low back pain without sciatica Take 1 Tablet by mouth every 6 hours as needed for Pain, Mild or Pain, Severe. 30 Tablet 11/10/2023 Active HYDROcodone-Acetami nophen 5-325 MG Oral TabletIndications:A cute right-sided low back pain without sciatica Take 1 Tablet by mouth every 6 hours as needed for Pain, Mild or Pain, Severe. 30 Tablet 10/28/2023 11/09/19 24 Discontinu ed(Refill) documented as of this encounter (statuses as of 11/10/2023) Active Problems Problem Noted Date Diagnosed Date [...] as of this encounter (statuses as of 11/10/2023) Resolved Problems Problem Noted Date Diagnosed Date [...] CKD protocol #1 Hypertensive heart disease w [facility] congestive heart failure 08/27/2014 08/27/2014 Hypertensive [...] as of this encounter (statuses as of 11/10/2023) Immunizations Name Administration Dates Next Due COVID-19 [...] Telephone Encounter - Neville David MD - 11/10/2023 8:56 AM EDTSigned Prescriptions: Disp Refills HYDROcodone-Acetaminophen 5-325 MG Oral Ta*30 Tab*0 Sig: Take 1Tablet by mouth every 6 hours as needed for Pain, Mild or Pain, Severe.Authorizing Provider: NEVILLE DAVID * Telephone Encounter - Tiffanie Vogt [facility] - 11/10/2023 8:26 AM EDT Pending Prescriptions: Disp Refills HYDROcodone-Acetaminophen 5-325 MG Oral Ta*30 Tab*0 Sig: Take 1 Tablet by mouth every 6 hours as needed for Pain, Mild or Pain, Severe. * Telephone Encounter - Tiffanie Vogt [facility] - 11/10/2023 8:20 AM EDT I have reviewed the patients controlled substance dispensing history in the Prescription Drug Monitoring Program in compliance with the [facility] regulations before prescribing a controlled substance. PDMP checked on 11/10/2023. Pending Prescriptions: Disp Refills HYDROcodone-Acetaminophen 5-325 MG Oral T*30 Tab*0 Sig: Take 1 Tablet by mouth every 6 hours as needed for Pain, Mild or Pain, Severe. Last Visit: 09/14/2023 (in office), Visit date not found (telemedicine) Next Visit: 01/31/2024 Date medication was last filled: 10/28/23 Date medication is due for refill: 11/04/23 Pharmacy: [id number] [facility] Is this request for a controlled substance? Yes and Urine Drug Screen Not completed Toxicology results: No results found. However, due to the size of the patient record, not all encounters were searched.Please check Results Review for a complete set of results. Please approve if appropriate. Thank you, Tiffanie Vogt, PharmD Clinical Pharmacist [facility] ([facility]) [phone] 11/10/2023, 8:23 AM documented in this encounter Plan of Treatment Upcoming Encounters Date Type Department Care Team (Late st Contact Info) Description 01/31/2024 2:00 PM EDT Office Visit [facility] [address] [place] [facility] [place] [phone] Gina Nichole PA-C [address] [facility] [place] [phone] 02/22/2024 3:40 PM EDT Office Visit [facility] [address] [place] [phone] Neville David MD [address] [facility] [place] [phone] Health Maintenance Due Date Last Done Comments Alpha-1 Antitrypsin 1959 Zoster Vaccines (1 of 2) 1991 DTaP,Tdap,and Td Vaccines (1 - Tdap) 04/28/2008 04/27/2008 Diabetic Foot Exam 02/06/2021 02/07/2020, 0 07/04/2018, 06/30/2017, Additional history exists *COPD SEVERITY VERIFIED BY PFT 03/19/2022 COVID-19 Vaccine ( season) 2023 02/20/2021, 01/30/2021 O2 ASSESSMENT COMPLETED IN PAST YEAR FOR COPD 11/13/2023 11/12/2022 Influenza Vaccine (FLU shot) (#1) 2024 03/25/2023, 03/17/2022, 04/28/2021, Additional history exists HbA1c 03/04/2024 09/03/2023, 02/07, 11/02/2022, Additional history exists Diabetic Eye Exam 07/08/2024 07/09/2023, , 03/29/2019, Additional history exists TSH 08/09/2024 08/10/2023, 03/12, 03/03/2023, Additional history exists Depression Monitoring 09/06/2024 09/07/2023, 024 Pneumococcal Vaccine: 65+ Years Completed 01/26/2018, 01/30/2006 Hepatitis B Vaccine Completed 04/20/2023, 02/09/2023, 01/14/2023 HPV (Gardasil) Vaccine Aged Out No lo nger eligible based on patient's age to complete this topic MENINGOCOCCAL (MENACTRA/MENVEO) Aged Out No longer eligible based on patient's age to complete this topic documented as of this encounter Medical Devices Implanted Type Area Pattern Marker Device Identifier Shelf Expiration Date Model / Serial / Lot Mesh Flat Sheet [id number] - [id number] Implanted:Qty: 1 on 11/12/2022 by Willie Musa MD at OR [facility] Right: Groin CR BARD : DAVOL 09/04/2025 [id number] / / [id number] documented as of this encounter Visit Diagnoses Diagnosis Acute right-sided low back pain without sciatica documented in this encounter Advance Directives * [...] the patient have Health Care Power of Automotive Light Mechanic? No Care Teams Cyber Intel Planner Relationship Specialty Start Date End Date Neville David MD [address] [place] [address] PCP - General 04/10/02 documented as of this encounter
--- OUTSIDE RECORDS SUMMARY | 2023-11-16 12:01 | External Medical Summary | Summary of Care ---
Author Name Unknown Organization [facility] Address [address] [place] [place] [place] [address] Phone [phone] Care Team Providers Care Tail Sawyer Name Role Phone Pramod Damian MD Primary Care Provider +1- [phone] Reason for Visit * Reason Onset Date Comments Medication Refill 11/01/2023 Encounter Details Date Type Department Care Team (Late st Contact Info) Description 11/01/2023 Refill [facility] [address] [place] [address] SeptemberBenito MD [address] [place] [address] Nausea Allergies Active Allergy Reactions [...] End Date Status Blood Glucose Monitoring Suppl (Haoqiao.cn[employer]eak Games VERQubulus) w/Device KIT Use up to 4 times [...] Sodium 150 MCG Oral Tablet (Levoxyl)Indications :Acquired hypothyroidism,[place] amy TSH TAKE 1 TABLET BY MOUTH [...] failure 08/27/2014 08/27/2014 [facility] 08/27/2014 05/25/2019 Overview: [...] mRNA, LNP-s, No Pre serve, 2-Dose Series (TUTORize) 02/20/2021,01/30/2021 Pneumococcal Conjugate Vacc, 13 Valent (Prevnar) [...] encounter Miscellaneous Notes * Telephone Encounter - Neda Joe RPh - 11/02/2023 12:38 PM EDTRefused Prescriptions: Disp Refills Ondansetron 4 MG Oral Tablet Disintegratin*20 Tab*0 Sig: Place 1 Tablet on tongue every 8 hours as needed for Nausea. dissolve on tongue.Refused By: NEDA JOE for Refusal: Duplicate Request documented in this encounter Plan of Treatment Upcoming Encounters Date Type Department Care Team (Late st Contact Info) Description 01/31/2024 2:00 PM EDT Office Visit [facility] [address] [facility] [phone] Gina Nichole [facility]-C [address] [facility] [address] 02/22/2024 3:40 PM EDT Office Visit [facility] [place] [address] [place] [phone] Pramod Damian MD [address] [facility] [place] [address] Health Maintenance Due Date Last Done Comments [...] this encounter Medical Devices Implanted Type Area Bus And Rail Operator Device Identifier Shelf Expiration Date Model / Serial / Lot Mesh Flat Sheet 1x4 [id number] - [id number] Implanted:Qty: 1 on 11/12/2022 by Willie Musa MD at OR [facility] Right: Groin CR BARD : DAVOL 09/04/2025 [id number] / / [id number] documented as of this encounter Visit Diagnoses [...] the patient have Health Care Power of Parquetry Layer? No Care Teams Tail Sawyer Relationship Specialty Start Date End Date Pramod Damian MD [address] [place] [address] PCP - General 04/10/02 documented as of this encounter
--- OUTSIDE RECORDS SUMMARY | 2023-11-16 12:02 | External Medical Summary | Summary of Care ---
Author Name Unknown Organization [facility] Address [address] [place] [address] Phone [phone] Care Team Providers Care Benefits Counselor Name Role Phone Neville David MD Primary Care Provider +1- [phone] Reason for Visit * Reason Comments eRx-Medication Refill Encounter Details Date Type Department Care Team (Late st Contact Info) Description 10/28/2023 Refill [facility] [address] [place] [address] Neville David MD [address] [place] [address] Dyslipidemia, goal LDL below 100*; Encounter for long-term (current) use of medications Allergies Active Allergy Reactions Criticality Noted Date [...] as of this encounter (statuses as of 10/28/2023) Medications Medication Sig Dispensed Refills Start Date [...] hemoglobin A1c goal of less than 8.0% ([facility]) USE UP TO FOUR TIMES A DAY [...] the morning. 30 Tablet 5 4 Active Ondansetron 4 MG Oral Tablet Disintegrating (Zofran)Indication s:Nausea Place 1 Tablet on tongue every 8 hours as needed for Nausea. dissolve on tongue. 20 Tablet 4 Active Eliquis 2.5 MG Oral Tablet [...] A MEAL 180 Tablet 1 4 Active glipiZIDE 10 MG Oral Tablet (Glucotrol) Take 1 Tablet by mouth in the morning and 1 Tablet before bedtime. 30 minutes before a meal. 180 Tablet 3 3 10/28/19 24 Discontinued documented as of this encounter (statuses as of 10/28/2023) Active Problems Problem Noted Date Diagnosed Date [...] as of this encounter (statuses as of 10/28/2023) Resolved Problems Problem Noted Date Diagnosed Date [...] #1 Hypertensive heart disease w [facility] congestive heart failure 08/27/2014 08/27/2014 Hypertensive heart disease w [facility] congestive heart failure 08/27/2014 05/25/2019 [...] as of this encounter (statuses as of 10/28/2023) Immunizations Name Administration Dates Next Due COVID-19 [...] encounter Miscellaneous Notes * Telephone Encounter - Serjio Sy RPh - 10/28/2023 11:43 AM EDT Signed Prescriptions: Disp Refills glipiZIDE 10 MG Oral Tablet (Glucotrol) 180 Ta*1 Sig: TAKE 1 TABLET BY MOUTH TWICE DAILY EVERY MORNING AND BEFORE BEDTIME. TAKE 30 MINUTES BEFORE A MEALAuthorizingProvider: NEVILLE DAVID User: SERJIO SY * Telephone Encounter - Serjio Sy RPh - 10/28/2023 11:42 AM EDT Provided 90 days supply with 1 refill(s) until upcoming appointment. Per refill protocol patient should have LIPID PANEL on file within past year. Reviewed AMP report, Care Gaps/Health Maintenance, medications list, and for any routine labs typically ordered for this patient. Lab orders placed. As patient is age >75, patient can have lipid panel drawn with next routine set of labs Thanks, Serjio Sy, GuanakoD Clinical Pharmacist [facility] Services ([facility]) [phone] 10/28/2023, 11:42 AM documented in this encounter Plan of Treatment Upcoming Encounters Date Type Department Care Team (Late st Contact Info) Description 02/22/2024 3:40 PM EDT Office Visit [facility] [address] [place] [address] Neville David MD [address] [place] [address] Scheduled Orders Name Type Priority Associated Diagnoses Orde r Schedule LIPID PANEL WITH DIRECT LDL IF TG IS HIGH Lab Routine Dyslipidemia, goal LDL below 100 Encounter for long-term (current) use of medications Expected: 11/04/2023 (Approximate), Expires: 10/27/2024 Health Maintenance Due Date Last Done Comments [...] this encounter Medical Devices Implanted Type Area Loss Prevention Manager Device Identifier Shelf Expiration Date Model / Serial / Lot Mesh Flat Sheet 1x4 [id number] - [id number] Implanted:Qty: 1 on 11/12/2022 by Willie Musa MD at OR [facility] Right: Groin CR BARD : DAVOL 09/04/2025 [id number] / / [id number] documented as of this encounter Visit Diagnoses Diagnosis Dyslipidemia, goal LDL below 100- Primary Other and unspecified hyperlipidemia Encounter for long-term (current) use of medications Encounter for long-term (current) use of other medications documented in this encounter Advance Directives * [...] the patient have Health Care Power of Green Feed Attendant? No Care Teams Benefits Counselor Relationship Specialty Start Date End Date Neville David MD [address] [place] [address] PCP - General 04/10/02 documented as of this encounter
--- OUTSIDE RECORDS SUMMARY | 2023-11-16 12:02 | External Medical Summary | Summary of Care ---
Author Name Unknown Organization [facility] Address [address] [facility] [place] [address] Phone [phone] Care Team Providers Care Exhibits Curator Name Role Phone Pramod Damian MD Primary Care Provider +1- [phone] Encounter Details Date Type Department Care Team (Late st Contact Info) Description 10/30/2023 Orders Only PATIENT PORTAL DO NOT DELETE THIS DEPT USED BY [place] [id number] Allergies Active Allergy Reactions Criticality Noted Date [...] as of this encounter (statuses as of 10/30/2023) Medications Medication Sig Dispensed Refills Start Date End Date Status Blood Glucose Monitoring Suppl (NeoSystems VERIO) w/Device KIT Use up to 4 [...] Sodium 150 MCG Oral Tablet (Levoxyl)Indications :Acquired hypothyroidism,[place] amy TSH TAKE 1 TABLET BY MOUTH [...] as of this encounter (statuses as of 10/30/2023) Active Problems Problem Noted Date Diagnosed Date [...] 05/14/2022 Rotator cuff syndrome of left shoulder 12/19/202 2 Chronic diastolic congestive heart failure 03/17 [...] as of this encounter (statuses as of 10/30/2023) Resolved Problems Problem Noted Date Diagnosed Date [...] failure 08/27/2014 08/27/2014 Hypertensive heart disease w [facility] congestive heart failure 08/27/2014 05/25/2019 [...] as of this encounter (statuses as of 10/30/2023) Immunizations Name Administration Dates Next Due COVID-19 [...] Description 02/22/2024 3:40 PM EDT Office Visit [facility] [address] [place] [address] Pramod Damian MD [address] [place] [address] Health Maintenance Due Date Last [...] this encounter Medical Devices Implanted Type Area Traffic Checker Device Identifier Shelf Expiration Date Model / Serial / Lot Mesh Flat Sheet 1x4 [id number] - [id number] Implanted:Qty: 1 on 11/12/2022 by Willie Musa MD at OR [facility] Right: Groin CR BARD : DAVOL 09/04/2025 [id number] / / [id number] documented as of this encounter Advance Directives [...] the patient have Health Care Power of Flooring Machine Feeder? No Care Teams Exhibits Curator Relationship Specialty Start Date End Date Pramod Damian MD [address] [place] [address] PCP - General 04/10/02 documented as of this encounter
--- OUTSIDE RECORDS SUMMARY | 2023-11-16 12:02 | External Medical Summary | Summary of Care ---
Author Name Unknown Organization [facility] Address [address] [place] [facility] [place] [address] Phone [phone] Care Team Providers Care Mottler Machine Feeder Name Role Phone Pramod Damian MD Primary Care Provider +1- [phone] Encounter Details Date Type Department Care Team (Late st Contact Info) Description 10/12/2023 8:15 AM EDT Scheduled Telephone Care Coordination and Integration [address] [place] [address] Dimple Ralph, MIRZA [address] [place] [address] Allergies Active Allergy Reactions Criticality Noted Date [...] as of this encounter (statuses as of 10/12/2023) Medications Medication Sig Dispensed Refills Start Date End Date Status Blood Glucose Monitoring Suppl (Qualtrics VERBitstrips) w/Device KIT Use up to 4 times a day 1 Kit 11/11/2017 Active Kaos SolutionsTOUCH DELICA LANCETS FINE MISC Use four times daily 100 Each 11 05/12/2019 Active Renal Vitamin 0.8 MG Oral Tablet Take by mouth. Active PunchhTouch VerVoci Technologies In Vitro Strip (Glucose Blood)Indications:Ty pe 2 [...] 11/18/2022 Active Lactulose 10 GM/15ML Oral Solution (Constulose)Indicati [...] Sodium 150 MCG Oral Tablet (Levoxyl)Indications :Acquired hypothyroidism,[place] amy TSH TAKE 1 TABLET BY MOUTH [...] the morning. 30 Tablet 5 09/28/2023 Active HYDROcodone-Acetamin ophen 5-325 MG Oral TabletIndications:Ac [place] right-sided low back pain without sciatica Take 1 Tablet by mouth every 6 hours as needed for Pain, Mild or Pain, Severe. 30 Tablet 10/01/2023 Active Terazosin HCl 1 MG Oral Capsule (Hytrin)Indications: Persistent atrial fibrillation (HCC) Take 1 Capsule by mouth at bedtime. 90 Capsule 10/11/2023 Active documented as of this encounter (statuses as of 10/12/2023) Active Problems Problem Noted Date Diagnosed Date [...] as of this encounter (statuses as of 10/12/2023) Resolved Problems Problem Noted Date Diagnosed Date [...] as of this encounter (statuses as of 10/12/2023) Immunizations Name Administration Dates Next Due COVID-19 [...] as of this encounter Progress Notes * Dimple Ralph OSA - 10/12/2023 9:31 AM EDT Telemedicine visit: No Community Health Hot Pond Operator (JD) documentation: CH[facility] outbound call to patient Stated he feels a little better today It comes and goes Has trouble coping with everything Asked again if he would like to talk to someone. He stated no Dimple Ralph [facility] Community Health Worker Call or Text- [phone] documented in this encounter Plan of Treatment Upcoming Encounters Date Type Department Care Team (Late st Contact Info) Description 02/22/2024 3:40 PM EDT Office Visit [facility] [address] [place] [facility] [place] [address] Pramod Damian MD [address] [place] [facility] [place] [address] Health Maintenance Due Date Last Done Comments Alpha-1 Antitrypsin 1959 Zoster Vaccines (1 of 2) 1991 DTaP,Tdap,and Td Vaccines (1 - Tdap) 04/28/2008 04/27/2008 Diabetic Eye Exam 03/29/2020 03/29/2019, , 07/27/2013, Additional history exists Diabetic Foot Exam 02/06/2021 02/07/2020, 0 07/04/2018, 06/30/2017, Additional history exists *COPD SEVERITY VERIFIED BY PFT 03/19/2022 COVID-19 Vaccine ( season) 2023 02/20/2021, 01/30/2021 Depression, Most Recent Score >= 10 (will fire each visit until score < 10) 09/08/2023 09/07/2023, 09/07/2023 O2 ASSESSMENT COMPLETED IN PAST YEAR FOR COPD 11/13/2023 11/12/2022 HbA1c 03/04/2024 09/03/2023, 02/07, 11/02/2022, Additional history exists TSH 08/09/2024 08/10/2023, 03/12, [...] this encounter Medical Devices Implanted Type Area Machine Quilt Stuffer Device Identifier Shelf Expiration Date Model / Serial / Lot Mesh Flat Sheet 1x4 [id number] - [id number] Implanted:Qty: 1 on 11/12/2022 by Willie Musa MD at OR [facility] Right: Groin CR BARD : DAVOL 09/04/2025 [id number] / / [id number] documented as of this encounter Advance Directives [...] the patient have Health Care Power of Building Tech? No Care Teams Mottler Machine Feeder Relationship Specialty Start Date End Date Pramod Damian MD [address] [place] [address] PCP - General 04/10/02 documented as of this encounter
--- OUTSIDE RECORDS SUMMARY | 2023-11-16 12:02 | External Medical Summary | Summary of Care ---
Author Name Unknown Organization [facility] Address [address] [place] [address] Phone [phone] Care Team Providers Care Hog Scraper Name Role Phone Neville David MD Primary Care Provider +1- [phone] Reason for Visit * Reason Onset Date Comments Medication Refill 10/14/2023 Encounter Details Date Type Department Care Team (Late st Contact Info) Description 10/14/2023 Refill [facility] [address] [place] [address] Neville David MD [address] [place] [address] Acute right-sided low back pain [...] as of this encounter (statuses as of 10/15/2023) Medications Medication Sig Dispensed Refills Start Date End Date Status Blood Glucose Monitoring Suppl (Spinlister VERIO) w/Device KIT Use up to 4 [...] 09/14/2023 Levothyroxine Sodium 150 MCG Oral Tablet (Levoxyl)Indication [...] 4 MG Oral Tablet Disintegrating (Zofran)Indications :Nausea Place 1 Tablet on tongue every 8 [...] mouth at bedtime. 90 Capsule 10/11/2023 Active HYDROcodone-Acetami nophen 5-325 MG Oral TabletIndications:A cute right-sided low back pain without sciatica Take 1 Tablet by mouth every 6 hours as needed for Pain, Mild or Pain, Severe. 30 Tablet 10/15/2023 Active HYDROcodone-Acetami nophen 5-325 MG Oral TabletIndications:A cute right-sided low back pain without sciatica Take 1 Tablet by mouth every 6 hours as needed for Pain, Mild or Pain, Severe. 30 Tablet 10/01/2023 10/14/19 24 Discontinu ed(Refill) documented as of this encounter (statuses as of 10/15/2023) Active Problems Problem Noted Date Diagnosed Date [...] as of this encounter (statuses as of 10/15/2023) Resolved Problems Problem Noted Date Diagnosed Date [...] CKD protocol #1 Hypertensive heart disease w [facility] congestive heart failure 08/27/2014 08/27/2014 Hypert[facility] congestive heart failure 08/27/2014 05/25/2019 Overview: [...] as of this encounter (statuses as of 10/15/2023) Immunizations Name Administration Dates Next Due COVID-19 mRNA, LNP-s, No Pre serve, 2-Dose Series (Backspaces) 02/20/2021,01/30/2021 Pneumococcal Conjugate Vacc, 13 Valent (Prevnar) [...] Telephone Encounter - Neville David MD - 10/15/2023 4:37 PM EDTSigned Prescriptions: Disp Refills HYDROcodone-Acetaminophen 5-325 MG Oral Ta*30 Tab*0 Sig: Take 1 Tablet by mouth every 6 hours as needed for Pain, Mild or Pain, Severe.Authorizing Provider: NEVILLE DAVID * Telephone Encounter - Medardo Bui RP - 10/15/2023 2:33 PM EDTPending Prescriptions: Disp Refills HYDROcodone-Acetaminophen 5-325 MG Oral Ta*30 Tab*0 Sig: Take 1 Tablet by mouth every 6 hours as needed for Pain, Mild or Pain, Severe. * Telephone Encounter - Medardo Bui RPh - 10/15/2023 2:33 PM EDT I have reviewed the patients controlled substance dispensing history in the Prescription Drug Monitoring Program in compliance with the [facility] regulations before prescribing a controlled substance. PDMP checked on 10/15/2023. Pending Prescriptions: Disp Refills HYDROcodone-Acetaminophen 5-325 MG Oral T*30 Tab*0 Sig: Take 1 Tablet by mouth every 6 hours as needed for Pain, Mild or Pain, Severe. Last Visit: 09/14/2023 (in office), Visit date not found (telemedicine) Next Visit: 02/22/2024 Date medication was last filled: 10/01/2023 Date medication is due for refill: 10/08/2023 [facility]acy: [id number] [facility] Is this request for a controlled substance? Yes and Urine Drug Screen Not completed Toxicology results: No results found. However, due to the size of the patient record, not all encounters were searched.Please check Results Review for a complete set of results. Please approve if appropriate. Thanks, Medardo Bui Pharm.D. Clinical Pharmacist [facility] ([facility]) [phone] 10/15/2023, 2:33 PM documented in this encounter Plan of Treatment Upcoming Encounters Date Type Department Care Team (Late st Contact Info) Description 02/22/2024 3:40 PM EDT Office Visit [facility] [address] [place] [address] Neville David MD [address] [place] [facility] [place] [address] Health Maintenance Due Date Last Done Comments Alpha-1 Antitrypsin 1959 Zoster Vaccines (1 of 2) 1991 DTaP,Tdap,and Td Vaccines (1 - Tdap) 04/28/2008 04/27/2008 Diabetic Eye Exam 03/29/2020 03/29/2019, , 04/17/2010, Additional history exists [...] this encounter Medical Devices Implanted Type Area Consulting Solution Manager Device Identifier Shelf Expiration Date Model / Serial / Lot Mesh Flat Sheet 1x4 [id number] - [id number] Implanted:Qty: 1 on 11/12/2022 by Willie Musa MD at [facility] Right: Groin CR BARD : DAVOL 09/04/2025 [id number] / / [id number] documented as of this encounter Visit Diagnoses [...] the patient have Health Care Power of Poker Supervisor? No Care Teams Hog Scraper Relationship Specialty Start Date End Date Neville David MD [address] [place] [address] PCP - General 04/10/02 documented as of this encounter
--- OUTSIDE RECORDS SUMMARY | 2023-11-16 12:02 | External Medical Summary | Summary of Care ---
Author Name Unknown Organization [facility] Address [address] [place] [address] Phone [phone] Care Team Providers Care Oracle Dba Name Role Phone Neville David MD Primary Care Provider +1- [phone] Reason for Visit * Reason Onset Date Comments Medication Refill 10/27/2023 Encounter Details Date Type Department Care Team (Late st Contact Info) Description 10/27/2023 Refill [facility] [address] [place] [address] Neville David MD [address] [place] [address] Acute right-sided low back pain [...] End Date Status Blood Glucose Monitoring Suppl (Spinzo VERIO) w/Device KIT Use up to 4 times a day 1 Kit 11/11/2017 Active ONETOUCH DELICA LANCETS FINE MISC Use four times daily 100 Each 11 05/12/2019 Active Renal Vitamin 0.8 MG Oral Tablet Take by mouth. Active OneTouch Verio In Vitro Strip (Glucose Blood)Indications:T ype 2 diabetes mellitus with hemoglobin A1c goal of less than 8.0% ([facility]) USE UP TO FOUR TIMES A DAY [...] or Pain, Severe. 30 Tablet 10/28/2023 Active HYDROcodone-Acetami nophen 5-325 MG Oral TabletIndications:A cute right-sided low back pain without sciatica Take 1 Tablet by mouth every 6 hours as needed for Pain, Mild or Pain, Severe. 30 Tablet 10/15/2023 10/27/19 24 Discontinu ed(Refill) documented as of this [...] CKD protocol #1 Hypertensive heart disease w [facility] congestive heart failure 08/27/2014 08/27/2014 Hypertensive heart disease w [facility] congestive heart failure 08/27/2014 05/25/2019 Overview: [...] Telephone Encounter - Neville David MD - 10/28/2023 5:02 PM EDTSigned Prescriptions: Disp Refills HYDROcodone-Acetaminophen 5-325 MG Oral Ta*30 Tab*0 Sig: Take 1Tablet by mouth every 6 hours as needed for Pain, Mild or Pain, Severe.Authorizing Provider: NEVILLE DAVID * Telephone Encounter - Steven Aguiar [facility] - 10/28/2023 10:50 AM EDTPending Prescriptions: Disp Refills HYDROcodone-Acetaminophen 5-325 MG Oral Ta*30 Tab*0 Sig: Take 1 Tablet by mouth every 6 hours as needed for Pain, Mild or Pain, Severe. * Telephone Encounter - Steven Aguiar RPh - 10/28/2023 10:49 AM EDT I have reviewed the patients controlled substance dispensing history in the Prescription Drug Monitoring Program in compliance with the [facility] regulations before prescribing a controlled substance. PDMP checked on 10/28/2023. Pending Prescriptions: Disp Refills HYDROcodone-Acetaminophen 5-325 MG Oral T*30 Tab*0 Sig: Take 1 Tablet by mouth every 6 hours as needed for Pain, Mild or Pain, Severe. Last Visit: 09/14/2023 (in office), Visit date not found (telemedicine) Next Visit: 02/22/2024 Date medication was last filled: 10-15-23 Date medication is due for refill: 10-22-23 Pharmacy: [id number] Is this request for a controlled substance? Yes and Urine Drug Screen Not completed Toxicology results: No results found. However, due to the size of the patient record, not all encounters were searched.Please check Results Review for a complete set of results. Please approve if appropriate. Steven Aguiar, Michael.Ph. Clinical Pharmacist [facility] ([facility]) [address] [place] [address], [address] [place] [address] : [phone] 10/28/2023,10:49 AM documented in this encounter Plan of Treatment Upcoming Encounters Date Type Department Care Team (Late st Contact Info) Description 02/22/2024 3:40 PM EDT Office Visit [address] [place] [id number] Neville David MD [address], [place] [id number] Health Maintenance Due Date Last Done Comments [...] this encounter Medical Devices Implanted Type Area Warm In Device Identifier Shelf Expiration Date Model / Serial / Lot Mesh Flat Sheet 1x4 [id number] - [id number] Implanted:Qty: 1 on 11/12/2022 by Willie Musa MD at OR [facility] Right: Groin CR BARD : DAVOL 09/04/2025 [id number] / / [id number] documented as of this encounter Visit Diagnoses [...] the patient have Health Care Power of International Sales Manager? No Care Teams Oracle Dba Relationship Specialty Start Date End Date Neville David MD [address] [place] [address] PCP - General 04/10/02 documented as of this encounter
--- OUTSIDE RECORDS SUMMARY | 2023-11-16 12:02 | External Medical Summary | Summary of Care ---
Author Name Unknown Organization [facility] Address [address] [facility] [place] [address] Phone [phone] Care Team Providers Care Nurse Tech Name Role Phone Pramod Damian MD Primary Care Provider +1- [phone] Encounter Details Date Type Department Care Team (Late st Contact Info) Description 10/12/2023 8:15 AM EDT Scheduled Telephone Care Coordination and Integration [address] [place] [address] Dimple Ralph, MIRZA [address] [place] [address] Allergies Active Allergy Reactions Criticality [...] End Date Status Blood Glucose Monitoring Suppl (Defense Mobile VERSuperior Services) w/Device KIT Use up to 4 times a day 1 Kit 11/11/2017 Active Tradeasi SolutionsTOUCH DELICA LANCETS FINE MISC Use four times daily 100 Each 11 05/12/2019 Active Renal Vitamin 0.8 MG Oral Tablet Take by mouth. Active Parle InnovationTouch VerRF Surgical Systems In Vitro Strip (Glucose Blood)Indications:Ty pe 2 [...] Sodium 150 MCG Oral Tablet (Levoxyl)Indications :Acquired hypothyroidism,[place] amy TSH TAKE 1 TABLET BY MOUTH [...] Active HYDROcodone-Acetamin ophen 5-325 MG Oral TabletIndications:Ac te-moak right-sided low back pain without sciatica Take [...] AM EDT Telemedicine visit: No Community Health Defensive Driving Instructor (JD) documentation: CHW outbound call to patient Stated he feels a little better today It comes and goes Has trouble coping with everything Asked again if he would like to talk to someone. He stated no Dimple Ralph [facility] Community Health Worker Call or Text- [phone] documented in this encounter Plan of Treatment Upcoming Encounters Date Type Department Care Team (Late st Contact Info) Description 02/22/2024 3:40 PM EDT Office Visit [facility] [address] [facility] [place] [address] Pramod Damian MD [address] [place] [facility] [place] [address] Health Maintenance Due Date Last Done [...] this encounter Medical Devices Implanted Type Area Seafood Service Team Member Device Identifier Shelf Expiration Date Model / Serial / Lot Mesh Flat Sheet 1x4 [id number] - [id number] Implanted:Qty: 1 on 11/12/2022 by Willie Musa MD at OR [facility] Right: Groin CR BARD : DAVOL 09/04/2025 [id number] / / [id number] documented as of this encounter Advance Directives [...] the patient have Health Care Power of Audit Specialist? No Care Teams Nurse Tech Relationship Specialty Start Date End Date Pramod Damian MD [address] [place] [address] PCP - General 04/10/02 documented as of this encounter
--- OUTSIDE RECORDS SUMMARY | 2023-11-16 12:02 | External Medical Summary | Summary of Care ---
Author Name Unknown Organization [facility] Address [address] [facility] [address] Phone [phone] Care Team Providers Care Inspector And Tester Name Role Phone Pramod Damian MD Primary Care Provider +1- [phone] Reason for Visit * Reason Comments eRx-Medication Refill Encounter Details Date Type Department Care Team (Late st Contact Info) Description 10/10/2023 Refill Cardiology, [facility] [address] [place] [address] Bill Palencia PA-C [address] [place] [address] Persistent atrial fibrillation (HCC)* Allergies Active Allergy Reactions Criticality Noted Date [...] as of this encounter (statuses as of 10/11/2023) Medications Medication Sig Dispensed Refills Start Date [...] the morning. 30 Tablet 5 4 Active HYDROcodone-Acetam inophen 5-325 MG Oral TabletIndications: Acute right-sided low back pain without sciatica Take 1 Tablet by mouth every 6 hours as needed for Pain, Mild or Pain, Severe. 30 Tablet 4 Active Terazosin HCl 1 MG Oral Capsule (Hytrin)Indication s:Persistent atrial fibrillation (HCC) Take 1 Capsule by mouth at bedtime. 90 Capsule 4 Active Terazosin HCl 1 MG Oral Capsule (Hytrin) Take 1 Capsule by mouth at bedtime. 31 Capsule 5 3 10/11/19 24 Discontinued documented as of this encounter (statuses as of 10/11/2023) Active Problems Problem Noted Date Diagnosed Date [...] as of this encounter (statuses as of 10/11/2023) Resolved Problems Problem Noted Date Diagnosed Date [...] CKD protocol #1 Hypertensive heart disease w [facility] congestive heart failure 08/27/2014 08/27/2014 Hypertensive heart disease w [facility] congestive heart failure 08/27/2014 05/25/2019 Overview: duplicate [...] as of this encounter (statuses as of 10/11/2023) Immunizations Name Administration Dates Next Due COVID-19 [...] the money to buy more. Never true 10/05/19 24 Within the past 12 months, t he food you bought just didn't last and you didn't have money to get more. Never true 10/05/2023 Sex and Gender Information Value Date Recorded [...] encounter Miscellaneous Notes * Telephone Encounter - Radha May CMA - 10/11/2023 2:22 PM EDTPending Prescriptions: Disp Refills Terazosin HCl 1 MG Oral Capsule (Hytrin) 90 Cap*0 Sig: Take 1 Capsule by mouth at bedtime. * Telephone Encounter - Radha May CMA - 10/11/2023 2:22 PM EDT Scheduling -- please contact pt for follow up. * Telephone Encounter - Radha May CMA - 10/11/2023 2:22 PM EDT Did you pend patient's preferred pharmacy and medication before forwarding?yes Pharmacy: [id number] Pending Prescriptions: Disp Refills Terazosin HCl 1 MG Oral Capsule (Hytrin) *90 Cap*0 Sig: Take 1 Capsule by mouth at bedtime. Last Visit: 11/25/2022 (in office), 04/17/2020 (telemedicine) Next Visit: Visit date not found If no future appointments scheduled, and last appointment is greater than a year ago, please schedule patient for a follow-up appointment Last date the medication was ordered: 04-07-2023 Is this request for a controlled substance?No Urine Drug Screen:No results found. However, due to the size of the patient record, not all encounters were searched. Please check Results Review for a complete set of results. Patient Phone Numbers Labs: Lab Results Component Value Date/Time CREAT 6.26 (A) 09/03/2023 12:00 AM CREAT 2.6 (H) 05/09/2020 07:43 AM POTASSIUM 3.9 09/03/2023 12:00 AM POTASSIUM 4.1 05/09/2020 07:43 AM TSH 4.95 (H) 08/10/2023 02:05 PM TSH 3.23 05/09/2020 07:43 AM LDLCALC 110 02/07/2020 08:36 AM LDLDIRECT 84 01/06/2022 11:24 AM LDLDIRECT 95 05/09/2020 07:42 AM LDLDIRECT 134 (H) 07/27/2013 10:37 AM ALT 35 10/24/2022 09:50 PM ALT 30 05/09/2020 07:43 AM HGBA1C 9.3 (A) 09/03/2023 12:00 AM HGBA1C 8.3 (H) 05/09/2020 07:43 AM documented in this encounter Plan of Treatment Upcoming Encounters Date Type Department Care Team ([facility] st Contact Info) Description 10/12/2023 8:15 AM EDT Scheduled Telephone Care Coordination and Integration [address] [place] [address] Dimple Ralph OSA [address] [place] [address] 02/22/2024 3:40 PM EDT Office Visit [facility] [address] [place] [address] Pramod Damian MD [address] [place] [address] Health Maintenance Due Date Last [...] this encounter Medical Devices Implanted Type Area Gullet Slitter Device Identifier Shelf Expiration Date Model / Serial / Lot Mesh Flat Sheet 1x4 [id number] - [id number] Implanted:Qty: 1 on 11/12/2022 by Willie Musa MD at OR [facility] Right: Groin CR BARD : DAVOL 09/04/2025 [id number] / / [id number] documented as of this encounter Visit Diagnoses Diagnosis Persistent atrial fibrillation (HCC)- Primary Atrial fibrillation documented in this encounter Advance Directives * [...] the patient have Health Care Power of Adult Neurologist? No Care Teams Inspector And Tester Relationship Specialty Start Date End Date Pramod Damian MD [address] [place] [address] PCP - General 04/10/02 documented as of this encounter
--- OUTSIDE RECORDS SUMMARY | 2023-11-16 12:03 | External Medical Summary | Summary of Care ---
Author Name Unknown Organization [facility] Address [address] [place] [address] Phone [phone] Care Team Providers Care Pharmacy Clerk Name Role Phone Pramod Damian MD Primary Care Provider +1- [phone] Encounter Details Date Type Department Care Team (Late st Contact Info) Description 10/06/2023 Orders Only [facility] [address] [place] [address] Pramod Damian MD [address] [place] [address] Allergies Active Allergy Reactions Criticality Noted Date Comments Citalopram 04/20/2014 Clonidine Hydrochloride Nausea/vomiting 008 Nightmares, nervousness Reaction depending on brand!!! Must be produced by Mobile [employer] Elizabe Doxazosin Mesylate Other (Please comment) High [...] as of this encounter (statuses as of 10/06/2023) Medications Medication Sig Dispensed Refills Start Date End Date Status Blood Glucose Monitoring Suppl (PersonallyTOHonk VERGrupo A) w/Device KIT Use up to 4 times a day 1 Kit 11/11/2017 Active ONETOUCH DELICA LANCETS FINE MISC Use four times daily 100 Each 11 05/12/2019 Active Renal Vitamin 0.8 MG Oral Tablet Take by mouth. Active OneTouch VerShout For Good In Vitro Strip (Glucose Blood)Indications:Ty pe 2 [...] Additional Information Patient not taking.Reported on 09/14/2023 Terazosin HCl 1 MG Oral Capsule (Hytrin) Take 1 Capsule by mouth at bedtime. 31 Capsule 5 04/07/2023 Active Levothyroxine Sodium 150 MCG Oral Tablet (Levoxyl)Indications :Acquired hypothyroidism,[place] amy TSH TAKE 1 TABLET BY MOUTH [...] or Pain, Severe. 30 Tablet 10/01/2023 Active documented as of this encounter (statuses as of 10/06/2023) Active Problems Problem Noted Date Diagnosed Date [...] as of this encounter (statuses as of 10/06/2023) Resolved Problems Problem Noted Date Diagnosed Date [...] as of this encounter (statuses as of 10/06/2023) Immunizations Name Administration Dates Next Due COVID-19 [...] Telephone Care Coordination and Integration [address] [place] [address] Dimple Ralph OSA [address] [place] [address] 02/22/2024 3:40 PM EDT Office Visit [facility] [address] [place] [address] Pramod Damian MD [address] [place] [address] Health Maintenance Due Date Last Done Comments Alpha-1 Antitrypsin 1958 Zoster Vaccines (1 of 2) 1991 DTaP,Tdap,and Td Vaccines (1 - Tdap) 04/28/2008 04/27/2008 Diabetic Eye Exam 03/29/2020 03/29/2019, , 07/27/2013, Additional history exists Diabetic Foot Exam 02/06/2021 02/07/2020, 0 07/04/2018, 06/30/2017, Additional history exists *COPD SEVERITY VERIFIED BY PFT 03/19/2022 COVID-19 Vaccine ( season) 2023 02/20/2021, 01/30/2021 HbA1c 08/21/2023 09/03/2023, 02/07, 11/02/2022, Additional history exists Depression, Most Recent Score >= 10 (will [...] this encounter Medical Devices Implanted Type Area Universal Banker Device Identifier Shelf Expiration Date Model / Serial / Lot Mesh Flat Sheet 1x4 [id number] - [id number] Implanted:Qty: 1 on 11/12/2022 by Willie Musa MD at OR [facility] Right: Groin CR BARD : DAVOL 09/04/2025 [id number] / / [id number] documented as of this encounter Procedures Procedure Name Priority Date/Time Associated Diagnosis Comments CHEMISTRY-OUTSIDE Routine 09/03/2023 FECAL OCCULT BLOOD, EIA Routine 08/31/2023 documented in this encounter Results * (ABNORMAL) CHEMISTRY-OUTSIDE (09/03/2023) Not all results display below - see scan for full detail OUTSIDE LAB (SEE SCANNED REPORT) CREATININE-OUTSID E LAB 6.26(A) 0.6 - 1.4 OUTSIDE LAB (SEE SCANNED REPORT) EGFR-OUTSIDE LAB OUT SIDE LAB (SEE SCANNED REPORT) POTASSIUM-OUTSIDE LAB 3.9 3.5 - 5.1 OUTSIDE LAB (SEE SCANNED REPORT) GLUCOSE-OUTSIDE LAB 189(A) 70 - 99 OUTSIDE LAB (SEE SCANNED REPORT) HOURS FASTING OUTSID E LAB (SEE SCANNED REPORT) TRIGLYCERIDES-OUT SIDE LAB OUTSIDE LAB (SEE SCANNED REPORT) CHOLESTEROL-OUTSI DE LAB OUTSIDE LAB (SEE SCANNED REPORT) HDL-OUTSIDE LAB OUTS [facility] LAB (SEE SCANNED REPORT) CHOL/HDL RATIO-OUTSIDE LAB OUTSIDE LA B (SEE SCANNED REPORT) LDL (CALCULATED)-OUTS [facility] LAB OUTSIDE LAB (SEE SCANNED REPORT) LDL (DIRECT MEASURE)-OUTSIDE LAB OUTSIDE LAB (SEE SCANNED REPORT) HEMOGLOBIN, I6N-LCRALYL LAB 9.3(A) 4.5 - 5.6 OUTSIDE LAB (SEE SCANNED REPORT) PHOSPHORUS-OUTSID E LAB 6.6(A) 2.5 - 4.9 OUTSIDE LAB (SEE SCANNED REPORT) PTH-OUTSIDE LAB OUTS MIKAELA LAB (SEE SCANNED REPORT) MICROALBUMIN RATIO-OUTSIDE LAB OUTSIDE LA B (SEE SCANNED REPORT) PROTEIN, UA-OUTSIDE LAB OUTSIDE LAB (SEE SCANNED REPORT) HGB 10.8(A) 14.0 - 18.0 OUTSIDE LAB (SEE SCANNED REPORT) 09/03/2023 Yan Prince MD LABORATORY OUTSIDE LAB (SEE SCANNED REPORT) * FECAL OCCULT BLOOD, EIA (08/31/2023) FOBT (EIA) pos neg OUTSIDE L AB (SEE SCANNED REPORT) Stool Stool specimen / Unknown 08/31/2023 Yan Prince MD LAB FLUID AND STOOL ORDERABLES OUTSIDE LAB (SEE SCANNED REPORT) documented in this encounter Advance Directives * [...] the patient have Health Care Power of Early Childhood Teacher Assistant? No Care Teams Pharmacy Clerk Relationship Specialty Start Date End Date Pramod Damian MD [address] [place] [address] PCP - General 04/10/02 documented as of this encounter
--- OUTSIDE RECORDS SUMMARY | 2023-11-16 12:03 | External Medical Summary | Summary of Care ---
Author Name Unknown Organization [facility] Address [address] [place] [facility] [place] [address] Phone [phone] Care Team Providers Care Shipping Clerk Packing Name Role Phone Pramod Damian MD Primary Care Provider +1- [phone] Encounter Details Date Type Department Care Team (Late st Contact Info) Description 10/05/2023 8:15 AM EDT Scheduled Telephone Care Coordination and Integration [address] [place] [address] Dimple Ralph, MIRZA [address] [place] [address] Allergies Active Allergy Reactions Criticality [...] as of this encounter (statuses as of 10/05/2023) Medications Medication Sig Dispensed Refills Start Date End Date Status Blood Glucose Monitoring Suppl (DokDok [email or web address]) w/Device KIT Use up to 4 times a day 1 Kit 11/11/2017 Active ONETOUCH DELICA LANCETS FINE MISC Use four times daily 100 Each 11 05/12/2019 Active Renal Vitamin 0.8 MG Oral Tablet Take by mouth. Active CodasipTouch VerGridCure In Vitro Strip (Glucose Blood)Indications:Ty pe 2 [...] Sodium 150 MCG Oral Tablet (Levoxyl)Indications :Acquired hypothyroidism,[place] amy TSH TAKE 1 TABLET BY MOUTH [...] as of this encounter (statuses as of 10/05/2023) Active Problems Problem Noted Date Diagnosed Date [...] as of this encounter (statuses as of 10/05/2023) Resolved Problems Problem Noted Date Diagnosed Date [...] #1 Hypertensive heart disease w [facility] congestive heart failure 08/27/2014 08/27/2014 Hypertensive heart [...] as of this encounter (statuses as of 10/05/2023) Immunizations Name Administration Dates Next Due COVID-19 [...] Progress Notes * Dimple Ralph OSA - 10/05/2023 9:46 AM EDT Telemedicine visit: No Community Health Glass Ribbon Machine Operator (JD) documentation: [facility] outbound call Pain in the back of neck takes Excedrin Feels Achy miserable Pain in left shoulder - hurt left shoulder partially tore rotator cuff Has swelling Not coping well with not being able to do anything Has thought about hurting himself at times Would like to go to sleep and not wake up Does not wish to talk with anyone Dimple Ralph [facility] Community Health Worker Call or Text- [phone] documented in this encounter Plan of Treatment Upcoming Encounters Date Type Department Care Team (Late st Contact Info) Description 10/12/2023 8:15 AM EDT Scheduled Telephone Care Coordination and Integration [address] [place] [address] Dimple Ralph OSA [address] [place] [address] 02/22/2024 3:40 PM EDT Office Visit [facility] [address] [place] [phone] Pramod Damian MD [address] [place], [place] [id number] Health Maintenance Due Date Last Done Comments Alpha-1 Antitrypsin 1959 Zoster Vaccines (1 of 2) 1991 DTaP,Tdap,and Td Vaccines (1 - Tdap) 04/28/2008 04/27/2008 Diabetic Eye Exam 03/29/2020 03/29/2019, , 07/27/2013, Additional history exists Diabetic Foot Exam 02/06/2021 02/07/2020, 0 07/04/2018, 06/30/2017, Additional history exists *COPD SEVERITY VERIFIED BY PFT 03/19/2022 COVID-19 Vaccine ( season) 2023 02/20/2021, 01/30/2021 HbA1c 08/21/2023 02/19/2023, 10/09, 08/22/2022, Additional history exists Depression, Most Recent Score [...] this encounter Medical Devices Implanted Type Area Press Washer Device Identifier Shelf Expiration Date Model / Serial / Lot Mesh Flat Sheet 1x4 [id number] - [id number] Implanted:Qty: 1 on 11/12/2022 by Willie Musa MD at OR [facility] Right: Anila GALICIA BARD : KYRA 09/04/2025 [id number] / / [id number] documented as of this encounter Advance Directives [...] the patient have Health Care Power of Teacher Resource? No Care Teams Shipping Clerk Packing Relationship Specialty Start Date End Date Pramod Damian MD [address] [place] [address] PCP - General 04/10/02 documented as of this encounter
--- OUTSIDE RECORDS SUMMARY | 2023-11-16 12:03 | External Medical Summary | Summary of Care ---
Author Name Unknown Organization [facility] Address [address] [place] [facility] [place] [address] Phone [phone] Care Team Providers Care Curb Supervisor Name Role Phone Pramod Damian MD Primary Care Provider +1- [phone] Encounter Details Date Type Department Care Team (Late st Contact Info) Description 10/05/2023 8:15 AM EDT Scheduled Telephone Care Coordination and Integration [address] [place] [address] Dimple Ralph, MIRZA [address] [place] [address] Allergies Active Allergy Reactions Criticality [...] End Date Status Blood Glucose Monitoring Suppl (Sportfort VERAhonya) w/Device KIT Use up to 4 times a day 1 Kit 11/11/2017 Active ONETOUCH DELICA LANCETS FINE MISC Use four times daily 100 Each 11 05/12/2019 Active Renal Vitamin 0.8 MG Oral Tablet Take by mouth. Active Enhanced Medical DecisionsTouch [email or web address] In Vitro Strip (Glucose Blood)Indications:Ty pe 2 [...] Sodium 150 MCG Oral Tablet (Levoxyl)Indications :Acquired hypothyroidism,[place] amy TSH TAKE 1 TABLET BY MOUTH [...] failure 08/27/2014 08/27/2014 Hypertensive heart disease w [facility] congestive heart failure 08/27/2014 05/25/2019 [...] as of this encounter Progress Notes * Leonarda Duggan RN - 10/05/2023 10:09 AM EDT Spoke with patient, says he does feel depressed, refusing [facility] mental health case preparer and liner referral, refusing to take down the crisis line ( ), not interested in counseling. Asked patient to call CM back if he needs any resources, he verbalized understanding Leonarda Duggan RN * Dimple Ralph OSA - 10/05/2023 9:46 AM EDT Telemedicine visit: No Community Health Envelope Stamping Machine Operator (JD) documentation: CHW outbound call [...] wish to talk with anyone Dimple Ralph [facility] Community Health Worker Call or Text- [phone] documented in this encounter Plan of Treatment Upcoming Encounters Date Type Department Care Team (Late st Contact Info) Description 10/12/2023 8:15 AM EDT Scheduled Telephone Care Coordination and Integration [address] [place] [address] Dimple Ralph OSA [address] [place] [address] 02/22/2024 3:40 PM EDT Office Visit [facility] [address] [place] [address] Pramod Damian MD [address] [place] [address] Health Maintenance Due Date Last [...] this encounter Medical Devices Implanted Type Area Feeder Loader Device Identifier Shelf Expiration Date Model / Serial / Lot Mesh Flat Sheet 1x4 [id number] - [id number] Implanted:Qty: 1 on 11/12/2022 by Willie Musa MD at OR [facility] Right: Groin CR BARD : DAVOL 09/04/2025 [id number] / / [id number] documented as of this encounter Advance Directives [...] the patient have Health Care Power of Salt Maker? No Care Teams Curb Supervisor Relationship Specialty Start Date End Date Oesterling, Pramod R, MD [address] [facility] [place] [id number] PCP - General 04/10/02 documented as of this encounter
--- OUTSIDE RECORDS SUMMARY | 2023-11-16 12:03 | External Medical Summary | Summary of Care ---
Author Name Unknown Organization [facility] Address [address] [place] [facility] [place] [facility] [place] [address] Phone [phone] Care Team Providers Care Safe Deposit Box Rental Clerk Name Role Phone Pramod Damian MD Primary Care Provider +1- [phone] Encounter Details Date Type Department Care Team (Late st Contact Info) Description 10/05/2023 8:15 AM EDT Scheduled Telephone Care Coordination and Integration [address] [place] [address] Dimple Ralph, MIRZA [address] [place] [address] Allergies Active Allergy Reactions Criticality [...] End Date Status Blood Glucose Monitoring Suppl (Incident Technologies VERFon) w/Device KIT Use up to 4 times a day 1 Kit 11/11/2017 Active ONETOUCH DELICA LANCETS FINE MISC Use four times daily 100 Each 11 05/12/2019 Active Renal Vitamin 0.8 MG Oral Tablet Take by mouth. Active Fultec SemiconductorTouch VerTradeTools FX In Vitro Strip (Glucose Blood)Indications:Ty pe 2 [...] Sodium 150 MCG Oral Tablet (Levoxyl)Indications :Acquired hypothyroidism,[place] amy TSH TAKE 1 TABLET BY MOUTH [...] CKD protocol #1 Hypertensive heart disease w [facility] congestive heart failure 08/27/2014 08/27/2014 Hypertensive heart disease w [facility] congestive heart failure 08/27/2014 05/25/2019 [...] AM EDT Telemedicine visit: No Community Health Supervisor Sintering Plant (JD) documentation: CHW outbound call Pain in [...] wish to talk with anyone Dimple Ralph [facility] Community Health Worker Call or Text- [phone] documented in this encounter Plan of Treatment Upcoming Encounters Date Type Department Care Team (Late st Contact Info) Description 10/12/2023 8:15 AM EDT Scheduled Telephone Care Coordination and Integration [address] [place] [address] Dimple Ralph OSA [address] [place] [address] 02/22/2024 3:40 PM EDT Office Visit [facility] [address] [place] [phone] Pramod Damian MD [address] [place], [place] [phone] Health Maintenance Due Date Last Done Comments [...] this encounter Medical Devices Implanted Type Area Grocery Clerk Marking Device Identifier Shelf Expiration Date Model / Serial / Lot Mesh Flat Sheet 1x4 [id number] - [id number] Implanted:Qty: 1 on 11/12/2022 by Willie Musa MD at OR [facility] Right: Anila GALICIA BARD : KYRA 09/04/2025 [id number] / / [id number] documented as of this encounter Advance Directives [...] the patient have Health Care Power of Breaker Operator? No Care Teams Safe Deposit Box Rental Clerk Relationship Specialty Start Date End Date Pramod Daiman MD [address] [place] [address] PCP - General 04/10/02 documented as of this encounter
--- OUTSIDE RECORDS SUMMARY | 2023-11-16 12:03 | External Medical Summary | Summary of Care ---
Author Name Unknown Organization [facility] Address [address] [place] [address] Phone [phone] Care Team Providers Care Outreach Worker Name Role Phone Pramod Damian MD Primary Care Provider +1- [phone] Reason for Visit * Reason Onset Date Comments Health Maintenance 10/05/2023 Encounter Details Date Type Department Care Team (Late st Contact Info) Description 10/05/2023 Telephone [facility] [address] [place] [address] Pramod Damian MD [address] [place] [address] Health Maintenance Allergies Active Allergy Reactions Criticality Noted Date [...] Sodium 150 MCG Oral Tablet (Levoxyl)Indications :Acquired hypothyroidism,[place] amy TSH TAKE 1 TABLET BY MOUTH [...] Active HYDROcodone-Acetamin ophen 5-325 MG Oral TabletIndications:Ac [place] right-sided low back pain without sciatica Take [...] protocol #1 Hypertensive heart disease w [facility] congestive heart failure 08/27/2014 08/27/2014 [facility] heart failure 08/27/2014 05/25/2019 Overview: [...] the money to buy more. Never true 09/28/19 24 Within the past 12 months, t he food you bought just didn't last and you didn't have money to get more. Never true 09/28/2023 Sex and Gender Information Value Date Recorded [...] encounter Miscellaneous Notes * Telephone Encounter - Mitra Berumen LPN - 10/05/2023 8:42 AM EDT Care Gaps Comprehensive Care Outreach Last Office/Telemedicine Visit: 09/14/2023 (in office), Visit date not found (telemedicine) Next Office Visit: 02/22/2024 Hemoglobin AIC Results: Lab Results Component Value Date/Time HEMOGLOBIN A1C - [facility] 8.5 (H) 02/19/2023 09:07 AM HEMOGLOBIN A1C - [facility] 8.1 (H) 11/02/2022 09:56 PM HEMOGLOBIN A1C - [facility] 7.4 (H) 08/22/2022 06:12 AM HEMOGLOBIN A1C - [facility] 8.3 (H) 05/09/2020 07:43 AM HEMOGLOBIN A1C - [facility] 8.6 (H) 02/07/2020 08:29 AM HEMOGLOBIN A1C - [facility] 8.5 (H) 11/03/2019 12:22 PM BP Readings from Last 1 Encounters: 09/14/23 124/72 Reviewed Health Maintenance below: Health Maintenance Topic Date Due Alpha-1 Antitrypsin Never done Zoster Vaccines (1 of 2) Never done DTaP,Tdap,and Td Vaccines (1 - Tdap) 04/28/2008 Diabetic Eye Exam 03/29/2020 Diabetic Foot Exam 02/06/2021 *COPD SEVERITY VERIFIED BY PFT Never done COVID-19 Vaccine ( season) 2023 HbA1c 08/21/2023 Eye my g [facility] just admitted will request labs from [facility] Care Gap Outreach Action Taken: [email or web address] message sent documented in this encounter Plan of Treatment Upcoming Encounters Date Type Department Care Team (Late st Contact Info) Description 10/12/2023 8:15 AM EDT Scheduled Telephone Care Coordination and Integration [address] [place] [address] Dimple Ralph OSA [address] [place] [address] 02/22/2024 3:40 PM EDT Office Visit [facility] [address] [place] [address] Pramod Damian MD [address] [place] [address] Health Maintenance Due Date Last [...] exists Depression, Most Recent Score >= 10 (fifi gallardo each visit until score < 10) 09/08/2023 [...] this encounter Medical Devices Implanted Type Area Cook Morning Device Identifier Shelf Expiration Date Model / Serial / Lot Mesh Flat Sheet 1x4 [id number] - [id number] Implanted:Qty: 1 on 11/12/2022 by Willie Musa MD at OR [facility] Right: Groin CR BARD : DAVOL 09/04/2025 [id number] / / [id number] documented as of this encounter Advance Directives [...] the patient have Health Care Power of Customer Sales Distributor? No Care Teams Outreach Worker Relationship Specialty Start Date End Date Pramod Damian MD [address] [place] [address] PCP - General 04/10/02 documented as of this encounter
--- OUTSIDE RECORDS SUMMARY | 2023-11-16 12:03 | External Medical Summary | Summary of Care ---
Author Name Unknown Organization [facility] Address [address] [place] [facility] [place] [address] Phone [phone] Care Team Providers Care Bindery Operator Name Role Phone Pramod Damian MD Primary Care Provider +1- [phone] Encounter Details Date Type Department Care Team (Late st Contact Info) Description 10/05/2023 8:15 AM EDT Scheduled Telephone Care Coordination and Integration [address] [place] [address] Dimple Ralph, MIRZA [address] [place] [address] Allergies Active Allergy Reactions Criticality [...] End Date Status Blood Glucose Monitoring Suppl (Minus VERPhantomAlert.com.) w/Device KIT Use up to 4 times a day 1 Kit 11/11/2017 Active ONETOUCH DELICA LANCETS FINE MISC Use four times daily 100 Each 11 05/12/2019 Active Renal Vitamin 0.8 MG Oral Tablet Take by mouth. Active TripwolfTouch VerCARGOBR In Vitro Strip (Glucose Blood)Indications:Ty pe 2 [...] Sodium 150 MCG Oral Tablet (Levoxyl)Indications :Acquired hypothyroidism,[place] amy TSH TAKE 1 TABLET BY MOUTH [...] CKD protocol #1 [facility] congestive heart failure 08/27/2014 08/27/2014 Hypertensive heart disease w [facility] congestive heart failure 08/27/2014 05/25/2019 Overview: [...] patient, says he does feel depressed, refusing [facility] mental health assistant case manager referral, refusing to take down the crisis line ( ), not interested in counseling. Asked patient to call CM back if he needs any resources, he verbalized understanding Leonarda Duggan RN * Dimple Ralph OSA - 10/05/2023 9:46 AM EDT Telemedicine visit: No Community Health Terminologist (JD) documentation: CHW outbound call Pain in [...] wish to talk with anyone Dimple Ralph [facility] Community Health Worker Call or Text- [phone] documented in this encounter Plan of Treatment Upcoming Encounters Date Type Department Care Team (Late st Contact Info) Description 10/12/2023 8:15 AM EDT Scheduled Telephone Care Coordination and Integration [address] [place] [address] Dimple Ralph OSA [address] [place] [address] 02/22/2024 3:40 PM EDT Office Visit [facility] [address] [place] [address] Pramod Damian MD [address] [place] [address] Health Maintenance Due Date Last [...] this encounter Medical Devices Implanted Type Area Bark Fitter Device Identifier Shelf Expiration Date Model / Serial / Lot Mesh Flat Sheet 1x4 [id number] - [id number] Implanted:Qty: 1 on 11/12/2022 by Willie Musa MD at OR [facility] Right: Groin CR BARD : DAVOL 09/04/2025 [id number] / / [id number] documented as of this encounter Advance Directives [...] the patient have Health Care Power of Power Operator? No Care Teams Bindery Operator Relationship Specialty Start Date End Date Oesterling, Pramod R, MD [address] [facility] [place] [id number] PCP - General 04/10/02 documented as of this encounter
--- OUTSIDE RECORDS SUMMARY | 2023-11-16 12:04 | External Medical Summary | Summary of Care ---
Author Name Unknown Organization [facility] Address [address] [place] [address] Phone [phone] Care Team Providers Care Testing Manager Name Role Phone Neville David MD Primary Care Provider +1- [phone] Reason for Visit * Reason Comments eRx-Medication Refill Encounter Details Date Type Department Care Team (Late st Contact Info) Description 09/27/2023 Refill [facility] [address] [place] [address] Neville David MD [address] [place] [address] Allergies Active Allergy Reactions Criticality [...] as of this encounter (statuses as of 09/28/2023) Medications Medication Sig Dispensed Refills Start Date End Date Status Blood Glucose Monitoring Suppl (Skyn [place] VERVideo Recruit) w/Device KIT Use up to 4 times a day 1 Kit 8 Active ONETOUCH DELICA LANCETS FINE MISC Use four times daily 100 Each 11 0 Active Renal Vitamin 0.8 MG Oral Tablet Take by mouth. Active OneTouch Verio In Vitro Strip (Glucose Blood)Indications: Type 2 diabetes mellitus with hemoglobin A1c goal of less than 8.0% ([facility]) USE UP TO FOUR TIMES A [...] at bedtime. 31 Capsule 5 3 Active Levothyroxine Sodium 150 MCG Oral [...] Tablet by mouth in the morning. Active HYDROcodone-Acetam inophen 5-325 MG Oral TabletIndications: Acute right-sided low back pain without sciatica Take 1 Tablet by mouth every 6 hours as needed for Pain, Mild or Pain, Severe. 30 Tablet 4 Active Additional Information Patient not taking.Reported on 09/14/2023 Torsemide 100 MG Oral Tablet (Demadex) Take [...] before bedtime. 180 Tablet 1 4 Active Apixaban 2.5 MG Oral Tablet (Eliquis) Take 1 Tablet by mouth in the morning and 1 Tablet before bedtime. 60 Tablet 5 3 09/28/19 24 Discontinued documented as of this encounter (statuses as of 09/28/2023) Active Problems Problem Noted Date Diagnosed Date [...] as of this encounter (statuses as of 09/28/2023) Resolved Problems Problem Noted Date Diagnosed Date [...] CKD protocol #1 Hypertensive heart disease w [facility] congestive heart failure 08/27/2014 08/27/2014 Hypertensive heart disease w [facility] congestive heart failure 08/27/2014 05/25/2019 Overview: duplicate [...] as of this encounter (statuses as of 09/28/2023) Immunizations Name Administration Dates Next Due COVID-19 [...] the money to buy more. Never true 09/07/19 24 Within the past 12 months, t he food you bought just didn't last and you didn't have money to get more. Never true 09/07/2023 Sex and Gender Information Value Date Recorded [...] encounter Miscellaneous Notes * Telephone Encounter - Corby Pereyra [facility] - 09/28/2023 10:28 AM EDTSigned Prescriptions: Disp Refills Eliquis 2.5 MG Oral Tablet (Apixaban) 180 Ta*1 Sig: Take 1 Tablet by mouth in the morning and 1 Tablet before bedtime.Authorizing Provider: NEVILLE DAVID User: CORBY NULL documented in this encounter Plan of Treatment Upcoming Encounters Date Type Department Care Team (Late st Contact Info) Description 10/05/2023 8:15 AM EDT Scheduled Telephone Care Coordination and Integration [address] [place] [address] Dimple Ralph, MIRZA [address] [place] [address] 10/12/2023 8:15 AM EDT Scheduled Telephone Care Coordination and Integration [address] [place] [facility] [place] [address] Dimple Ralph, MIRZA [address] [place] [facility] [place] [address] 02/22/2024 3:40 PM EDT Office Visit [facility] [address] [place] [address] Neville David MD [address] [place] [address] Health Maintenance Due Date Last [...] this encounter Medical Devices Implanted Type Area College Specialist Device Identifier Shelf Expiration Date Model / Serial / Lot Mesh Flat Sheet 1x4 [id number] - [id number] Implanted:Qty: 1 on 11/12/2022 by Willie Musa MD at OR [facility] Right: Groin CR BARD : DAVOL 09/04/2025 [id number] / / [id number] documented as of this encounter Advance Directives [...] the patient have Health Care Power of Lace And Textiles Restorer? No Care Teams Testing Manager Relationship Specialty Start Date End Date Neville David MD [address] [place] [address] PCP - General 04/10/02 documented as of this encounter
--- OUTSIDE RECORDS SUMMARY | 2023-11-16 12:04 | External Medical Summary | Summary of Care ---
Author Name Unknown Organization [facility] Address [address] [place] [address] Phone [phone] Care Team Providers Care Office Clinician Name Role Phone Neville David MD Primary Care Provider [phone]- [phone] Reason for Visit * Reason Onset Date Comments Medication Refill 09/30/2023 Encounter Details Date Type Department Care Team (Late st Contact Info) Description 09/30/[address] [facility] [address] [place] [address] Neville David MD [address] [place] [address] Acute right-sided low back pain [...] as of this encounter (statuses as of 10/01/2023) Medications Medication Sig Dispensed Refills Start Date End Date Status Blood Glucose Monitoring Suppl (BoomratTOUCH VERIO) w/Device KIT Use up to 4 [...] the morning. 30 Tablet 5 09/28/2023 Active HYDROcodone-Acetami nophen 5-325 MG Oral TabletIndications:A cute right-sided low back pain without sciatica Take 1 Tablet by mouth every 6 hours as needed for Pain, Mild or Pain, Severe. 30 Tablet 10/01/2023 Active HYDROcodone-Acetami nophen 5-325 MG Oral TabletIndications:A cute right-sided low back pain without sciatica Take 1 Tablet by mouth every 6 hours as needed for Pain, Mild or Pain, Severe. 30 Tablet 09/07/2023 09/30/19 24 Discontinu ed(Refill) documented as of this encounter (statuses as of 10/01/2023) Active Problems Problem Noted Date Diagnosed Date [...] as of this encounter (statuses as of 10/01/2023) Resolved Problems Problem Noted Date Diagnosed Date [...] CKD protocol #1 Hypertensive heart disease w [facility] congestive heart failure 08/27/2014 08/27/2014 [...] as of this encounter (statuses as of 10/01/2023) Immunizations Name Administration Dates Next Due COVID-19 [...] Telephone Encounter - Neville David MD - 10/01/2023 5:14 PM EDTSigned Prescriptions: Disp Refills HYDROcodone-Acetaminophen 5-325 MG Oral Ta*30 Tab*0 Sig: Take 1 Tablet by mouth every 6 hours as needed for Pain, Mild or Pain, Severe.Authorizing Provider: NEVILLE DAVID * Telephone Encounter - Renay Lowe [facility] - 10/01/2023 1:23 PM EDT Pending Prescriptions: Disp Refills HYDROcodone-Acetaminophen 5-325 MG Oral Ta*30 Tab*0 Sig: Take 1 Tablet by mouth every 6 hours as needed for Pain, Mild or Pain, Severe. * Telephone Encounter - Renay Lowe RPh - 10/01/2023 1:22 PM EDT I have reviewed the patients controlled substance dispensing history in the Prescription Drug Monitoring Program in compliance with the [facility] regulations before prescribing a controlled substance. PDMP checked on 10/01/2023. Pending Prescriptions: Disp Refills HYDROcodone-Acetaminophen 5-325 MG Oral T*30 Tab*0 Sig: Take 1 Tablet by mouth every 6 hours as needed for Pain, Mild or Pain, Severe. Last Visit: 09/14/2023 (in office), Visit date not found (telemedicine) Next Visit: 02/22/2024 Date medication was last filled: 08/19/23 Date medication is due for refill: 08/22/23 Pharmacy: [id number] [facility] Is this request for a controlled substance? Yes and Urine Drug Screen Not completed Toxicology results: No results found. However, due to the size of the patient record, not all encounters were searched.Please check Results Review for a complete set of results. Please approve if appropriate. Thank you, Renay Lowe, PharmD Clinical Pharmacist [facility] ([facility]) 10/01/23 1:22 PM [phone] documented in this encounter Plan of Treatment Upcoming Encounters Date Type Department Care Team (Late st Contact Info) Description 10/05/2023 8:15 AM EDT Scheduled Telephone Care Coordination and Integration [address] [place] [address] Dimple Ralph, MIRZA [address] [place] [address] 10/12/2023 8:15 AM EDT Scheduled Telephone Care Coordination and Integration [address] [place] [address] Dimple Ralph, MIRZA [address] [place] [address] 02/22/2024 3:40 PM EDT Office Visit [facility] [address] [place] [address] Neville David MD [address] [place] [address] Health Maintenance Due Date Last [...] this encounter Medical Devices Implanted Type Area Pond Supervisor Device Identifier Shelf Expiration Date Model / Serial / Lot Mesh Flat Sheet [id number] - [id number] Implanted:Qty: 1 on 11/12/2022 by Willie Musa MD at [facility] Right: Groin CR BARD : DAVOL 09/04/2025 [id number] / / [id number] documented as of this encounter Visit Diagnoses [...] the patient have Health Care Power of Deep Submergence Vehicle Operator? No Care Teams Office Clinician Relationship Specialty Start Date End Date Neville David MD [address] [place] [facility] [place] [address] PCP - General 04/10/02 documented as of this encounter
--- OUTSIDE RECORDS SUMMARY | 2023-11-16 12:04 | External Medical Summary | Summary of Care ---
Author Name Unknown Organization [facility] Address [address] [place] [address] Phone [phone] Care Team Providers Care Factorer Name Role Phone Pramod Damian MD Primary Care Provider +1- [phone] Reason for Visit * Reason Onset Date Comments Med Request 09/28/2023 Encounter Details Date Type Department Care Team (Late st Contact Info) Description 09/28/[address] [facility] [address] [place] [address] Pramod Damian MD [address] [place] [address] Med Request Allergies Active Allergy [...] Sodium 150 MCG Oral Tablet (Levoxyl)Indications :Acquired hypothyroidism,[place] amy TSH TAKE 1 TABLET BY MOUTH [...] Tablet by mouth in the morning. Active HYDROcodone-Acetamin ophen 5-325 MG Oral TabletIndications:Ac [place] right-sided low back pain without sciatica Take 1 Tablet by mouth every 6 hours as needed for Pain, Mild or Pain, Severe. 30 Tablet 09/07/2023 Active Additional Information Patient not taking.Reported on [...] the morning. 30 Tablet 5 09/28/2023 Active documented as of this encounter (statuses [...] Telephone Encounter - Pramod Damian MD - 09/28/2023 4:40 PM EDT Sent erx * Telephone Encounter - Kalpana Mendez CPhT - 09/28/2023 3:10 PM EDT Pharmacy calling requesting refills for Metoprolol Succinate ER 25 MG Oral Tablet Extended Release 24 Hour .Per pharmacy medication was last prescribed by hospital. Pt did schedule a hospital follow up visit. Please advise if you wish to continue this therapy for the patient. Thank you, Kalpana Mendez Tax Credit Leasing Consultant [facility] ([facility]) (Formerly Telepharmacy) 09/28/2023,3:11 PM documented in this encounter Plan of Treatment Upcoming Encounters Date Type Department Care Team (Late st Contact Info) Description 10/05/2023 8:15 AM EDT Scheduled Telephone Care Coordination and Integration [address] [place] [address] Dimple Ralph, MIRZA [address] [place] [address] 10/12/2023 8:15 AM EDT Scheduled Telephone Care Coordination and Integration [address] [place] [address] Dimple Ralph, MIRZA [address] [place] [address] 02/22/2024 3:40 PM EDT Office Visit [facility] [address] [place] [address] Pramod Damian MD [address] [place] [address] Health Maintenance Due Date Last Done Comments Alpha-1 Antitrypsin 1959 Zoster Vaccines (1 of 2) 1991 DTaP,Tdap,and Td Vaccines (1 - Tdap) 04/28/2008 04/27/2008 Diabetic Eye Exam 03/29/2020 03/29/2019, , 07/27/2013, Additional history exists Diabetic Foot Exam 02/06/2021 02/07/2020, 0 07/04/2018, 06/30/2017, Additional history exists *COPD SEVERITY VERIFIED BY PFT 03/19/2022 COVID-19 Vaccine (2022- season) 2023 02/20/2021, 01/30/2021 HbA1c 08/21/2023 02/19/2023, [...] this encounter Medical Devices Implanted Type Area Factory Clerk Device Identifier Shelf Expiration Date Model / Serial / Lot Mesh Flat Sheet 1x4 [id number] - [id number] Implanted:Qty: 1 on 11/12/2022 by Willie Musa MD at OR [facility] Right: Anila CR BARD : KYRA 09/04/2025 [id number] / / [id number] documented as of this encounter Advance Directives [...] patient have Health Care Power of Manager Of Applications Development? No Care Teams Factorer Relationship Specialty Start Date End Date Pramod Damian MD [address] [facility] [place] [address] PCP - General 04/10/02 documented as of this encounter
--- OUTSIDE RECORDS SUMMARY | 2023-11-16 12:04 | External Medical Summary | Summary of Care ---
Author Name Unknown Organization [facility] Address [address] [facility] [address] Phone [phone] Care Team Providers Care Freelance Makeup Artist Name Role Phone Pramod Damian MD Primary Care Provider +1- [phone] Encounter Details Date Type Department Care Team (Late st Contact Info) Description 09/28/2023 Population Health External Data Unspecified Department Allergies [...] as of this encounter (statuses as of 09/29/2023) Medications Medication Sig Dispensed Refills Start Date [...] A1c goal of less than 8.0% ([facility]) USE UP TO FOUR TIMES A [...] Sodium 150 MCG Oral Tablet (Levoxyl)Indications :Acquired hypothyroidism,[place] amy TSH TAKE 1 TABLET BY MOUTH [...] Active HYDROcodone-Acetamin ophen 5-325 MG Oral TabletIndications:Ac [place] right-sided low back pain without sciatica Take [...] as of this encounter (statuses as of 09/29/2023) Active Problems Problem Noted Date Diagnosed Date [...] as of this encounter (statuses as of 09/29/2023) Resolved Problems Problem Noted Date Diagnosed Date [...] as of this encounter (statuses as of 09/29/2023) Immunizations Name Administration Dates Next Due COVID-19 mRNA, LNP-s, No Pre serve, 2-Dose Series (BioCurity) 02/20/2021,01/30/2021 Pneumococcal Conjugate Vacc, 13 Valent (Prevnar) [...] Telephone Care Coordination and Integration [address] [place] [address] Dimple Ralph, MIRZA [address] [place] [address] 10/12/2023 8:15 AM EDT Scheduled Telephone Care Coordination and Integration [address] [place] [address] Dimple Ralph, MIRZA [address] [place] [address] 02/22/2024 3:40 PM EDT Office Visit [facility] [address] [place] [address] Pramod Damian MD [address] [place] [address] Health Maintenance Due Date Last Done Comments [...] this encounter Medical Devices Implanted Type Area Chargemaster Analyst Device Identifier Shelf Expiration Date Model / Serial / Lot Mesh Flat Sheet 1x4 [id number] - [id number] Implanted:Qty: 1 on 11/12/2022 by Willie Musa MD at OR [facility] Right: Groin CR BARD : DAVOL 09/04/2025 [id number] / / [id number] documented as of this encounter Advance Directives [...] the patient have Health Care Power of Security Installation Technician? No Care Teams Freelance Makeup Artist Relationship Specialty Start Date End Date Pramod Damian MD [address] [place] [address] PCP - General 04/10/02 documented as of this encounter
--- OUTSIDE RECORDS SUMMARY | 2023-11-16 12:04 | External Medical Summary | Summary of Care ---
Author Name Unknown Organization [facility] Address [address] [place] [facility] [place] [place] [address] Phone [phone] Care Team Providers Care [employer] Senior Officer Name Role Phone Pramod Damian MD Primary Care Provider +1- [phone] Reason for Visit * Reason Onset Date Comments Hospital Follow-Up Hospital Follow-Up 09/07/2023 Hospital Follow-Up 09/27/2023 Encounter Details Date Type Department Care Team (Late st Contact Info) Description 09/07/2023 5:40 PM EDT Office Visit [facility] [address] [place] [address] Pramod Damian MD [address] [place] [address] Altered mental status, unspecified altered mental status type*; Acute drug overdose, accidental or unintentional, initial encounter; Acute right-sided low back pain without sciatica; Hospital discharge follow-up; Type 2 diabetes mellitus with chronic kidney disease on chronic dialysis, without long-term current use of insulin (HCC); Persistent atrial fibrillation (HCC); Chronic kidney disease (CKD), stage V (HCC) Allergies Active Allergy Reactions Criticality Noted [...] as of this encounter (statuses as of 09/27/2023) Medications Medication Sig Dispensed Refills Start Date End Date Status Blood Glucose Monitoring Suppl (Touch[employer]iconductor[employer] VERIO) w/Device KIT Use up to 4 times a day 1 Kit 8 Active ONETOUCH DELICA LANCETS FINE MISC Use four times daily 100 Each 11 0 Active Renal Vitamin 0.8 MG Oral Tablet Take by mouth. Active OneTouch Verio In Vitro Strip (Glucose Blood)Indications :Type 2 diabetes mellitus with hemoglobin A1c goal of less than 8.0% ([facility]) USE UP TO FOUR TIMES [...] Additional Information Patient not taking.Reported on 09/14/2023 Apixaban 2.5 MG Oral Tablet (Eliquis) Take 1 Tablet by mouth in the morning and 1 Tablet before bedtime. 60 Tablet 5 3 Active Terazosin HCl 1 MG Oral [...] Active Hydrocortisone (Perianal) 2.5 % External Cream (Anusol-HC)Indica tions:Hemorrhoids , external without complications Apply to hemorrhoids twice [...] Tablet by mouth in the morning. Active HYDROcodone-Aceta minophen 5-325 MG Oral TabletIndications :Acute right-sided low back pain without sciatica Take 1 Tablet by mouth every 6 hours as needed for Pain, Mild or Pain, Severe. 30 Tablet 4 Active Additional Information Patient not taking.Reported on 09/14/2023 Docusate Sodium 100 MG Oral Capsule Take 1 Capsule by mouth in the morning and 1 Capsule before bedtime. 024 Discontinued(Me dication List Clean Up) Potassium Chloride ER 20 MEQ Oral Tablet Extended Release Take 2 Tablets by mouth in the morning. 60 Tablet 3 3 024 Discontinued(Me dication List Clean Up) Torsemide 100 MG Oral Tablet (Demadex) Take 1 Tablet by mouth in the morning. 30 Tablet 5 3 024 Discontinued Amoxicillin-Pot Clavulanate 500-125 MG Oral Tablet (Augmentin) Take 1 Tablet by mouth in the morning and 1 Tablet before bedtime. Do all this for 7 days. 14 Tablet 4 024 Discontinued(Me dication List Clean Up) hydrOXYzine HCl 25 MG Oral TabletIndications :Nausea,Anxiety Take 1-2 tabs every 6 hours as needed for anxiety or nausea. 30 Tablet 4 024 Discontinued(Va dication List Clean Up) HYDROcodone-Aceta minophen 5-325 MG Oral TabletIndications :Acute right-sided low back pain without sciatica Take 1 Tablet by mouth every 6 hours as needed for Pain, Mild or Pain, Severe. 20 Tablet 4 024 Discontinued(Re fill) documented as of this encounter (statuses as of 09/27/2023) Active Problems Problem Noted Date Diagnosed Date [...] as of this encounter (statuses as of 09/27/2023) Resolved Problems Problem Noted Date Diagnosed Date [...] failure 08/27/2014 08/27/2014 Hypertensive heart disease w [facility] congestive heart failure 08/27/2014 05/25/2019 Overview: [...] as of this encounter (statuses as of 09/27/2023) Immunizations Name Administration Dates Next Due COVID-19 [...] Sign Reading Time Taken Comments Blood Pressure 112/62 09/07/2023 5:32 PM EDT Pulse 66 09/07/2023 5:32 PM EDT Temperature 36.6 C (97.9 F) 09/07/2023 5:32 PM ED T Respiratory Rate 18 09/07/2023 5:32 PM EDT Oxygen Saturation - - Inhaled Oxygen Concentration - - Weight - - Height 170.2 cm (5' 7") 09/07/2023 5:32 PM EDT Body Mass Index - - documented in [...] Progress Notes * Pramod Damian MD - 09/27/2023 9:57 PM EDT Subjective: Brady David is a 83 year old male here today for Hospital follow up. Pt admitted to [facility] 08/22/23 - 09/03/23 with mental status change. Pt was having increased back pain and took excessive amounts of baclofen He has not been given a prescription for this recently. Was at the pharmacy and complained of back pain and was told that there was a baclofen prescription on file from a different provider that he could fill. Extended hospitalization for clearing of mental status. Doing better. Back is better as well. Past Medical History: Diagnosis Date Anxiety BPH without obstruction/lower urinary tract symptoms CHF (congestive heart failure) (HCC) COPD (chronic obstructive pulmonary disease) (HCC) DM type 2, goal A1C below 8.0 04/17/2013 ESRD (end stage renal disease) ([facility]) Gout HTN, goal to be determined Hypothyroidism [...] performed by Miquel Mendoza MD at ENDOSCOPY [facility] INFORMATION 1998 back surgery - "chipped bone away" INFORMATION 2009 Heart Cath INFORMATION Thyroidectomy. INSER ERICKA CAT,W/O PUMP;5YR/OLD Right 11/05/2022 INSERT TUNNELED CENTRAL VENOUS CATHETER AGE 6 OR OLDER performed by Bill Hansen DO at OR [facility] IR VENOUS ACCESS NON-MEDIPORT 09/03/2022 IR VENOUS ACCESS NON-MEDIPORT 10/22/2022 IR VENOUS ACCESS NON-MEDIPORT 12/24/2022 LAPAROSCOPY, W/ INSERT INTRAPERITONEAL CATH N/A 08/25/2022 LAPAROSCOPIC INSERTION INTRAPERITONEAL CANNULA OR CATHETER performed by Willie Musa MD at OR [facility] LUMBAR SPINE FUSION, POST INTERBODY 12/08/2012 Torreti PROSTATE CRYOABLATION 11/15/2008 CRYOSURGICAL ABLATION OF PROSTATE performed by MIKE CORBETT at [place] [facility] REMOVAL OF THYMUS GLAND 05/10/2000 REPAIR INITIAL INGUINAL HERNIA REDUCIBLE AGE 5 OR MORE Right 11/12/2022 REPAIR INITIAL INGUINAL HERNIA REDUCIBLE AGE 5 OR MORE performed by Willie Musa MD at OR [facility] REVISION OF ULNAR NERVE AT ELBOW Review of patient's allergies indicates: Allergen Reactions Doxazosin Mesylate Other (Please comment) Citalopram Clonidine Hydrochloride Nausea/vomiting Nightmares, nervousness Reaction depending on brand!!! Must be produced by [employer] Hctz [Hydrochlorothiazide] Hyponatremia Hydralazine Diarrhea, testicular pain [...] 0.8 MG Oral Tablet Take by mouth. OneTouch Verio In Vitro Strip (Glucose Blood) [...] NEEDED FOR SEVERE CONSTIPATION 237 mL 3 Apixaban 2.5 MG Oral Tablet (Eliquis) Take 1 Tablet by mouth in the morning and 1 Tablet before bedtime. 60 Tablet 5 Terazosin HCl 1 MG Oral [...] 2 Tablets by mouth in the morning. B Complex Vitamins Oral Capsule Take 1 Capsule by mouth in the morning. Hydrocortisone (Perianal) 2.5 % External Cream (Anusol-HC) Apply to hemorrhoids twice per day as needed 28 g 1 busPIRone HCl 5 MG Oral Tablet (Buspar) Take 1 Tablet by mouth every 4 hours as needed for Agitation or Anxiety. 30 Tablet 5 Cyclobenzaprine HCl 5 MG Oral Tablet (Flexeril) Take 1 Tablet by mouth at bedtime as needed for Muscle spasms. (Patient not taking: Reported on 09/14/2023) Potassium Chloride ER 20 MEQ Oral Tablet Extended Release Take 1 Tablet by mouth in the morning. HYDROcodone-Acetaminophen 5-325 MG Oral Tablet Take 1 Tablet by mouth every 6 hours as needed for Pain, Mild or Pain, Severe. (Patient not taking: Reported on 09/14/2023) 30 Tablet 0 Ventolin HFA 108 (90 Base) MCG/ACT Inhalation Aerosol Solution Inhale 2 Puffs by mouth every 4 hours as needed for Wheezing or Dyspnea. (Patient not taking: Reported on 09/14/2023) 1 g 0 Torsemide 100 MG Oral Tablet (Demadex) Take 1 Tablet by mouth in the morning. 30 Tablet 5 Ondansetron 4 MG Oral Tablet Disintegrating (Zofran) Place 1 Tablet on tongue every 8 hours as needed for Nausea. dissolve on tongue. 20 Tablet 0 No current facility-administered medications for this visit. Objective: BP 112/62 | Pulse 66 | Temp 36.6 C (97.9 F) (Temporal Artery) | Resp 18 | Ht 1.702 m(5' 7") | BMI 30.07 kg/m | BSA 2.03 m GEN: NAD HEENT: Benign NECK: Supple with no LAD, TM, JVD CHEST: CTA B CV: RRR ABD: Soft, NT/ND, No HSM, NABS EXT: No c,c,e Assessment and Plan: Altered mental status, unspecified altered mental status type (Primary) Acute drug overdose, accidental or unintentional, initial encounter Acute right-sided low back pain without sciatica - HYDROcodone-Acetaminophen 5-325 MG Oral Tablet; Take 1 Tablet by mouth every 6 hours as needed for Pain, Mild or Pain, Severe. (Patient not taking: Reported on 09/14/2023) -stressed importance of taking meds just as prescribed. -reviewed safe options for managing pain Hospital discharge follow-up - DISCH MED RECON CUR MED LIS Type 2 diabetes mellitus with chronic kidney disease on chronic dialysis, without long-term currentuse of insulin (HCC) Persistent atrial fibrillation (HCC) Chronic kidney disease (CKD), stage V (HCC) Follow Up: Return in about 5 months (around 02/07/2024) for recheck. | For: recheck Pramod Damian MD documented in this encounter Nursing Notes * Rosenda Wright LPN - 09/07/2023 5:31 PM EDT The patient has been properly identified by confirmation of name and date of . Chief Complaint Patient presents with Hospital Follow-Up documented in this encounter Plan of Treatment Upcoming Encounters Date Type Department Care Team (Late st Contact Info) Description 09/28/2023 8:45 AM EDT Scheduled Telephone Care Coordination and Integration [address] [place] [address] Dimple Ralph [facility] [address] [facility] [place] [address] 10/05/2023 8:15 AM EDT Scheduled Telephone Care Coordination and Integration [address] [place] [address] Dimple Ralph [facility] [address] [place] [address] 10/12/2023 8:15 AM EDT Scheduled Telephone Care Coordination and Integration [address] [place] [address] Dimple Ralph, MIRZA [address] [place] [address] 02/22/2024 3:40 PM EDT Office Visit [facility] [address] [place] [address] Pramod Damian MD [address] [place] [address] Health Maintenance Due Date Last Done Comments Alpha-1 Antitrypsin 1959 Zoster Vaccines (1 of 2) 1991 DTaP,Tdap,and Td Vaccines (1 - Tdap) 04/28/2008 04/27/2008 Diabetic Eye Exam 03/29/2020 03/29/2019, , 07/27/2013, Additional history exists Diabetic Foot Exam 02/06/2021 02/07/2020, 0 07/04/2018, 06/30/2017, Additional history exists *COPD SEVERITY VERIFIED BY PFT 03/19/2022 COVID-19 Vaccine ( - season) 2023 02/20/2021, 01/30/2021 HbA1c 08/21/2023 02/19/2023, [...] Additional history exists Hepatitis B Completed 04/20/2023, 100 07/2022, 01/14/2023 GARDASIL-HPV IMMUNIZATION SERIES Aged Out No longer eligible based on patient's age to complete this topic MENINGOCOCCAL (MENACTRA/MENVEO) Aged Out No longer eligible based on patient's age to complete this topic documented as of this encounter Medical Devices Implanted Type Area Restaurant Mgr Device Identifier Shelf Expiration Date Model / Serial / Lot Mesh Flat Sheet 1x4 [id number] - [id number] Implanted:Qty: 1 on 11/12/2022 by Willie Musa MD at OR [facility] Right: Groin CR BARD : DAVOL 09/04/2025 [id number] / / [id number] documented as of this encounter Visit Diagnoses Diagnosis Altered mental status, unspecified altered mental status type- Primary Acute drug overdose, accidental or unintentional, initial encounter Acute right-sided low back pain without sciatica Hospital discharge follow-up Other follow-up examination Type 2 diabetes mellitus with chronic kidney disease on chronic dialysis, without long-term current use of insulin (HCC) Persistent atrial fibrillation (HCC) Atrial fibrillation Chronic kidney disease (CKD), stage V (HCC) Chronic kidney disease, Stage V documented in this encounter Advance Directives * [...] the patient have Health Care Power of Director External Communications? No Care Teams Air [employer] Senior Officer Relationship Specialty Start Date End Date Pramod Damian MD [address] [facility] [place] [address] PCP - General 04/10/02 documented as of this encounter
--- OUTSIDE RECORDS SUMMARY | 2023-11-16 12:04 | External Medical Summary | Summary of Care ---
Author Name Unknown Organization [facility] Address [address] [place] [address] Phone [phone] Care Team Providers Care Testing Manager Name Role Phone Pramod Damian MD Primary Care Provider +1- [phone] Reason for Visit * Reason Onset Date Comments Advice 09/17/2023 Encounter Details Date Type Department Care Team (Late st Contact Info) Description 09/17/2023 Telephone [facility] [address] [place] [address] SeptemberBenito MD [address] [place] [address] Advice Allergies Active Allergy Reactions [...] as of this encounter (statuses as of 09/24/2023) Medications Medication Sig Dispensed Refills Start Date End Date Status Blood Glucose Monitoring Suppl ([employer]) w/Device KIT Use up to 4 times a day 1 Kit 0 11/11/2017 Active Itouzi.comTOUCH DELICA LANCETS FINE MISC Use four times daily 100 Each 11 05/12/2019 Active Renal Vitamin 0.8 MG Oral Tablet Take by mouth. 0 Active WellMetrisTouch VerEmail Data Source In Vitro Strip (Glucose Blood)Indications:Ty pe 2 diabetes mellitus with hemoglobin A1c goal of less than 8.0% ([facility]) USE UP TO FOUR TIMES A [...] before bedtime. 60 Tablet 5 03/21/2023 Active Terazosin HCl 1 MG Oral Capsule (Hytrin) Take 1 Capsule by mouth at bedtime. 31 Capsule 5 04/07/2023 Active Levothyroxine Sodium 150 MCG Oral Tablet (Levoxyl)Indications :Acquired hypothyroidism,[place] amy TSH TAKE 1 TABLET BY MOUTH [...] at bedtime as needed for Muscle spasms. 0 Active Potassium Chloride ER 20 MEQ Oral Tablet Extended Release Take 1 Tablet by mouth in the morning. 0 Active HYDROcodone-Acetamin ophen 5-325 MG Oral TabletIndications:Ac timbi-[place] shosh[place] right-sided low back pain without sciatica Take 1 Tablet by mouth every 6 hours as needed for Pain, Mild or Pain, Severe. 30 Tablet 0 09/07/2023 Active Additional Information Patient not taking.Reported on 09/14/2023 Torsemide 100 MG Oral Tablet (Demadex) Take 1 Tablet by mouth in the morning. 30 Tablet 5 09/15/2023 Active Ondansetron 4 MG Oral Tablet Disintegrating (Zofran)Indications: Nausea Place 1 Tablet on tongue every 8 hours as needed for Nausea. dissolve on tongue. 20 Tablet 0 09/14/2023 Active documented as of this encounter (statuses as of 09/24/2023) Active Problems Problem Noted Date Diagnosed Date [...] as of this encounter (statuses as of 09/24/2023) Resolved Problems Problem Noted Date Diagnosed Date [...] heart disease w [facility] congestive heart failure 08/27/2014 08/27/2014 [facility]pert[facility] congest[facility] heart failure 08/27/2014 05/25/2019 [...] as of this encounter (statuses as of 09/24/2023) Immunizations Name Administration Dates Next Due COVID-19 [...] encounter Miscellaneous Notes * Telephone Encounter - Benito Du MD - 09/17/2023 9:50 AM EDT Can consider trying SSRI, however, patient has not tolerated these in the past and this will take anumber of weeks to get to full effect. He is already taking buspar. I do not recommend benzodiazepine due to age and recent overdose requiring extended hospitalization. Can be seen at acute visit next week, however, treatment options are somewhat limited. Benito Du MD * Telephone Encounter - Wilner De OSA - 09/17/2023 7:48 AM EDT Pt calling stating he is having anxiety and is not feeling right. Pt denies SI or HI. Pt asking what else he can do. Pt is looking for an appointment today 09/[address] Du. Pt asking if he can speakwith Dr Du directly. Please advise pt at [phone]. documented in this encounter Plan of Treatment Upcoming Encounters Date Type Department Care Team (Late st Contact Info) Description 09/28/2023 8:45 AM EDT Scheduled Telephone [facility] [address] [place] [address] Dimple Ralph, MIRZA [address] [place] [address] 10/05/2023 8:15 AM EDT Scheduled Telephone [facility] [address] [place] [address] Dimple Ralph, MIRZA [address] [place] [address] 10/12/2023 8:15 AM EDT Scheduled Telephone [facility] Integration [address] [place] [address] Dimple Ralph, MIRZA [address] [place] [address] 02/22/2024 3:40 PM EDT Office Visit [facility] [address] [place] [id number] Pramod Damian MD [address] [place] [address] Health Maintenance Due Date Last [...] this encounter Medical Devices Implanted Type Area Director Of Optimization Device Identifier Shelf Expiration Date Model / Serial / Lot Mesh Flat Sheet 1x4 [id number] - [id number] Implanted:Qty: 1 on 11/12/2022 by Willie Musa MD at OR [facility] Right: Groin CR BARD : DAVOL 09/04/2025 [id number] / / [id number] documented as of this encounter Advance Directives [...] the patient have Health Care Power of Epic Ambulatory Specialists? No Care Teams Testing Manager Relationship Specialty Start Date End Date Pramod Damian MD [address] [place] [address] PCP - General 04/10/02 documented as of this encounter
--- OUTSIDE RECORDS SUMMARY | 2023-11-16 12:04 | External Medical Summary | Summary of Care ---
Author Name Unknown Organization [facility] Address [address] [facility] [place] [address] Phone [phone] Care Team Providers Care Curtain Cutter Hand Name Role Phone Pramod Damian MD Primary Care Provider +1- [phone] Encounter Details Date Type Department Care Team (Late st Contact Info) Description 09/28/2023 8:45 AM EDT Scheduled Telephone [facility] [address] [place] [address] Dimple Ralph, MIRZA [address] [place] [address] Allergies Active Allergy Reactions Criticality [...] End Date Status Blood Glucose Monitoring Suppl (T[employer] VERFundrise) w/Device KIT Use up to 4 times a day 1 Kit 11/11/2017 Active ONETOUCH DELICA LANCETS FINE MISC Use four times daily 100 Each 11 05/12/2019 Active Renal Vitamin 0.8 MG Oral Tablet Take by mouth. Active Victory PharmaTouch VerCOMARCO In Vitro Strip (Glucose Blood)Indications:Ty pe 2 [...] Sodium 150 MCG Oral Tablet (Levoxyl)Indications :Acquired hypothyroidism,[place] amy TSH TAKE 1 TABLET BY MOUTH [...] before bedtime. 180 Tablet 1 09/28/2023 Active documented as of this encounter [...] failure 08/27/2014 08/27/2014 Hypertensive heart disease w [facility] congestive heart failure 08/27/2014 05/25/2019 Overview: [...] Progress Notes * Dimple Ralph OSA - 09/28/2023 10:45 AM EDT Telemedicine visit: No Community Health Coat Examiner (JD) documentation: Outbound call to patient he stated he is not feeling well Has pain and feels like he strained his whole body Had trouble with constipation, got his bowels moving this morning and has had multiple bowel movements 3-5 times now Some lower extremity swelling Dimple Ralph [facility] Community Health Worker Call or Text- [phone] patient s/p hospitalization for altered mental status, requesting weekly calls x4 with first call on 09/14/23, please do CHW survey-thanks Leonarda Duggan RN documented in this encounter Plan of Treatment Upcoming Encounters Date Type Department Care Team (Late st Contact Info) Description 10/05/2023 8:15 AM EDT Scheduled Telephone [facility] [address] [place] [address] Dimple Ralph OSA [address] [place] [address] 10/12/2023 8:15 AM EDT Scheduled Telephone Care Coordination and Integration [address] [place] [facility] [place] [address] Dimple Ralph M, MIRZA [address] [place] [address] 02/22/2024 3:40 PM EDT Office Visit [facility] [address] [place] [id number] Pramod Damian MD [address] [place] [address] Health Maintenance Due Date Last [...] this encounter Medical Devices Implanted Type Area Photovoltaic Subcontractor Device Identifier Shelf Expiration Date Model / Serial / Lot Mesh Flat Sheet 1x4 [id number] - [id number] Implanted:Qty: 1 on 11/12/2022 by Willie Musa MD at OR [facility] Right: Groin CR BARD : DAVOL 09/04/2025 [id number] / / [id number] documented as of this encounter Advance Directives [...] the patient have Health Care Power of Boiling Off Winder? No Care Teams Curtain Cutter Hand Relationship Specialty Start Date End Date Pramod Damian MD [address] [place] [address] PCP - General 04/10/02 documented as of this encounter
--- OUTSIDE RECORDS SUMMARY | 2023-11-16 12:05 | External Medical Summary | Summary of Care ---
Author Name Unknown Organization [facility] Address [address] [place] [address] Phone [phone] Care Team Providers Care Film Or Videotape Editor Name Role Phone Neville David MD Primary Care Provider +1- [phone] Reason for Visit * Reason Comments eRx-Medication Refill Encounter Details Date Type Department Care Team (Late st Contact Info) Description 09/14/2023 Refill [facility] [address] [place] [address] Neville David MD [address] [place] [address] Allergies Active Allergy Reactions Criticality [...] as of this encounter (statuses as of 09/15/2023) Medications Medication Sig Dispensed Refills Start Date End Date Status Blood Glucose Monitoring Suppl ([employer]) w/Device KIT Use up to 4 times a day 1 Kit 0 8 Active ONETOUCH DELICA LANCETS FINE MISC Use four times daily 100 Each 11 0 Active Renal Vitamin 0.8 MG Oral Tablet Take by mouth. 0 Active OneTouch Verio In Vitro Strip (Glucose Blood)Indications: Type 2 diabetes mellitus with hemoglobin A1c goal of less than 8.0% ([facility]) USE UP TO FOUR TIMES A DAY [...] or Dyspnea. 1 g 0 3 Active Additional Information Patient not taking.Reported [...] by mouth in the morning. 0 Active HYDROcodone-Acetam inophen 5-325 MG Oral TabletIndications: Acute right-sided low back pain without sciatica Take 1 Tablet by mouth every 6 hours as needed for Pain, Mild or Pain, Severe. 30 Tablet 0 4 Active Additional Information Patient not taking.Reported on 09/14/2023 Torsemide 100 MG Oral Tablet (Demadex) Take 1 Tablet by mouth in the morning. 30 Tablet 5 4 Active Ondansetron 4 MG Oral Tablet Disintegrating (Zofran)Indication s:Nausea Place 1 Tablet on tongue every 8 hours as needed for Nausea. dissolve on tongue. 20 Tablet 0 4 Active Torsemide 100 MG Oral Tablet (Demadex) Take 1 Tablet by mouth in the morning. 30 Tablet 5 3 09/15/19 24 Discontinued documented as of this encounter (statuses as of 09/15/2023) Active Problems Problem Noted Date Diagnosed Date [...] as of this encounter (statuses as of 09/15/2023) Resolved Problems Problem Noted Date Diagnosed Date [...] as of this encounter (statuses as of 09/15/2023) Immunizations Name Administration Dates Next Due COVID-19 [...] encounter Miscellaneous Notes * Telephone Encounter - Charla Dowell tile grinder - 09/15/2023 2:46 PM EDT Pt calling to request Torsemide 100 MG Oral Tablet . Informed pt that RX is available at their pharmacy. Pt verbalized understanding and stated they will check with their pharmacy regarding this medication. Thank you, [facility] Supervisor Hand Silvering II [facility] ([facility]) (formerly Telepharmacy) 09/15/2023,2:46 PM * Telephone Encounter - Neville David MD - 09/15/2023 2:41 PM EDTSigned Prescriptions: Disp Refills Torsemide 100 MG Oral Tablet (Demadex) 30 Tab*5 Sig: Take 1 Tablet by mouth in the morning.Authorizing Provider: NEVILLE DAVID * Telephone Encounter - Lita Calvillo [facility] - 09/15/2023 10:16 AM EDT Pending Prescriptions: Disp Refills Torsemide 100 MG Oral Tablet (Demadex) 30 Tab*0 Sig: Take 1 Tablet by mouth in the morning. * Telephone Encounter - Lita Calvillo [facility] - 09/15/2023 10:16 AM EDT Protocol not met - Creatinine, BUN elevated documented in this encounter Plan of Treatment Upcoming Encounters Date Type Department Care Team (Late st Contact Info) Description 09/21/2023 10:15 AM EDT Scheduled Telephone [facility] [address] [place] [address] Dimple Ralph, Community Health Civil Defense Director [address] [place] [address] 09/28/2023 8:45 AM EDT Scheduled Telephone Care Coordination and Integration [address] [place] [address] Dimple Ralph, Community Health Civil Defense Director [address] [place] [address] 10/05/2023 8:15 AM EDT Scheduled Telephone Care Coordination and Integration [address] [place] [address] Dimple Ralph, Community Health Civil Defense Director [address] [place] [address] 10/12/2023 8:15 AM EDT Scheduled Telephone [facility] Coord[facility] Integration [address] [place] [address] Dimple Ralph, Community Health Civil Defense Director [address] [place] [address] 02/22/2024 3:40 PM EDT Office Visit [facility] [address] [place] [address] Neville David MD [address] [place] [address] Health Maintenance Due Date Last [...] this encounter Medical Devices Implanted Type Area Medical Staff Manager Device Identifier Shelf Expiration Date Model / Serial / Lot Mesh Flat Sheet 1x4 [id number] - [id number] Implanted:Qty: 1 on 11/12/2022 by Willie Musa MD at OR [facility] Right: Groin CR BARD : DAVOL 09/04/2025 [id number] / / [id number] documented as of this encounter Advance Directives [...] the patient have Health Care Power of Printing Technician? No Care Teams Film Or Videotape Editor Relationship Specialty Start Date End Date Neville David MD [address] [place] [address] PCP - General 04/10/02 documented as of this encounter
--- OUTSIDE RECORDS SUMMARY | 2023-11-16 12:05 | External Medical Summary | Summary of Care ---
Author Name Unknown Organization [facility] Address [address] [place] [address] Phone [phone] Care Team Providers Care Superintendent Stevedoring Name Role Phone Neville David MD Primary Care Provider +1- [phone] Reason for Visit * Reason Comments eRx-Medication Refill Encounter Details Date Type Department Care Team (Late st Contact Info) Description 09/14/2023 Refill [facility] [address] [place] [address] Neville David MD [address] [place] [address] Allergies Active Allergy Reactions Criticality [...] End Date Status Blood Glucose Monitoring Suppl ([employer]) w/Device KIT Use up to 4 times a day 1 Kit 0 8 Active ONETOUCH DELICA LANCETS FINE MISC Use four times daily 100 Each 11 0 Active Renal Vitamin 0.8 MG Oral Tablet Take by mouth. 0 Active OneTouch Verio In Vitro Strip (Glucose Blood)Indications: Type 2 diabetes mellitus with hemoglobin A1c goal of less than 8.0% ([facility]) USE UP TO FOUR TIMES A DAY [...] Notes * Telephone Encounter - Charla Dowell road worker - 09/15/2023 2:46 PM EDT Pt calling to request Torsemide 100 MG Oral Tablet . Informed pt that RX is available at their pharmacy. Pt verbalized understanding and stated they will check with their pharmacy regarding this medication. [facility] you, [facility] Supervisor Forming Department II [facility] ([facility]) (formerly Telepharmacy) 09/15/2023,2:46 PM * Telephone Encounter - Neville David MD - 09/15/2023 2:41 PM EDTSigned Prescriptions: Disp Refills Torsemide 100 MG Oral Tablet (Demadex) 30 Tab*5 Sig: Take 1 Tablet by mouth in the morning.Authorizing Provider: NEVILLE DAVID * Telephone Encounter - Lita Calvillo [facility] - 09/15/2023 10:16 AM EDT Pending Prescriptions: Disp Refills Torsemide 100 MG Oral Tablet (Demadex) 30 Tab*0 Sig: Take 1 Tablet by mouth in the morning. * Telephone Encounter - Lita Calvillo [facility] - 09/15/2023 10:16 AM EDT Protocol not met - Creatinine, BUN elevated documented in this encounter Plan of Treatment Upcoming Encounters Date Type Department Care Team (Late st Contact Info) Description 09/21/2023 10:15 AM EDT Scheduled Telephone Care Coordination and Integration [address] [place] [address] Dimple Ralph, Community Health Gin Pole Operator [address] [place] [address] 09/28/2023 8:45 AM EDT Scheduled Telephone Care Coordination and Integration [address] [place] [address] Dimple Ralph, Community Health Gin Pole Operator [address] [place] [address] 10/05/2023 8:15 AM EDT Scheduled Telephone Care Coordination and Integration [address] [place] [address] Dimple Ralph, Community Health Gin Pole Operator [address] [place] [address] 10/12/2023 8:15 AM EDT Scheduled Telephone Care Coordination and Integration [address] [place] [address] Dimple Ralph, Community Health Gin Pole Operator [address] [place] [address] 02/22/2024 3:40 PM EDT Office Visit [facility] [address] [place] [address] Neville David MD [address] [place] [address] Health Maintenance Due Date Last [...] this encounter Medical Devices Implanted Type Area Bundle Breaker Device Identifier Shelf Expiration Date Model / Serial / Lot Mesh Flat Sheet 1x4 [id number] - [id number] Implanted:Qty: 1 on 11/12/2022 by Willie Musa MD at OR [facility] Right: Groin CR BARD : DAVOL 09/04/2025 [id number] / / [id number] documented as of this encounter Advance Directives [...] the patient have Health Care Power of Feather Stitcher? No Care Teams Superintendent Stevedoring Relationship Specialty Start Date End Date Neville David MD [address] [facility] [place] [address] PCP - General 04/10/02 documented as of this encounter
--- OUTSIDE RECORDS SUMMARY | 2023-11-16 12:05 | External Medical Summary | Summary of Care ---
Author Name Unknown Organization [facility] Address [address] [facility] [place] [address] Phone [phone] Care Team Providers Care Manager Store Name Role Phone Pramod Damian MD Primary Care Provider +1- [phone] Encounter Details Date Type Department Care Team (Late st Contact Info) Description 09/21/2023 10:15 AM EDT Scheduled Telephone Care Coordination and Integration [address] [place], [place] [id number] Dimple Ralph, Community Health Slide Fastener Repairer [address] [place], [place] [id number] Allergies Active Allergy Reactions Criticality Noted Date [...] as of this encounter (statuses as of 09/21/2023) Medications Medication Sig Dispensed Refills Start Date End Date Status Blood Glucose Monitoring Suppl ([employer] VERLumaStream) w/Device KIT Use up to 4 times a day 1 Kit 0 11/11/2017 Active Home Delivery Service (HDS)TOUCH DELICA LANCETS FINE MISC Use four times daily 100 Each 11 05/12/2019 Active Renal Vitamin 0.8 MG Oral Tablet Take by mouth. 0 Active DigitickTouch VerSwipp In Vitro Strip (Glucose Blood)Indications:Ty pe 2 [...] Sodium 150 MCG Oral Tablet (Levoxyl)Indications :Acquired hypothyroidism,[place] amy TSH TAKE 1 TABLET BY MOUTH [...] Active HYDROcodone-Acetamin ophen 5-325 MG Oral TabletIndications:Ac [place] right-sided low back pain without sciatica Take [...] as of this encounter (statuses as of 09/21/2023) Active Problems Problem Noted Date Diagnosed Date [...] as of this encounter (statuses as of 09/21/2023) Resolved Problems Problem Noted Date Diagnosed Date [...] CKD protocol #1 Hypertensive heart disease w [facility] congestive heart failure 08/27/2014 08/27/2014 Hypertensive heart disease w [facility] congestive heart failure 08/27/2014 05/25/2019 Overview: [...] as of this encounter (statuses as of 09/21/2023) Immunizations Name Administration Dates Next Due COVID-19 [...] of this encounter Progress Notes * Dimple Ralph, Community Health Slide Fastener Repairer - 09/21/2023 11:33 AM EDT Telemedicine visit: No Community Health Slide Fastener Repairer (DJ) documentation: CHW call to patient [facility] Left message for patient to call CHW at [phone] Also tried patients mobile phone unable to leave message patient s/p hospitalization for altered mental status, requesting weekly calls x4 with first call on 09/14/23, please do CHW survey-thanks Leonarda Duggan, RN Dimple Ralph [facility] Community Health Worker Call or Text- [phone] documented in this encounter Plan of Treatment Upcoming Encounters Date Type Department Care Team (Late st Contact Info) Description 09/28/2023 8:45 AM EDT Scheduled Telephone Care Coordination and Integration [address] [facility] [place] [address] Dimple Ralph Community Health Slide Fastener Repairer [address] [facility] [place] [address] 10/05/2023 8:15 AM EDT Scheduled Telephone Care Coordination and Integration [address] [place] [address] Dimple Ralph, Community Health Slide Fastener Repairer [address] [place] [address] 10/12/2023 8:15 AM EDT Scheduled Telephone Care Coordination and Integration [address] [place] [address] Dimple Ralph, Community Health Slide Fastener Repairer [address] [place] [address] 02/22/2024 3:40 PM EDT Office Visit [facility] [address] [place] [address] Pramod Damian MD [address] [place] [address] Health Maintenance Due Date Last [...] this encounter Medical Devices Implanted Type Area Bending Machine Set Up Operator Device Identifier Shelf Expiration Date Model / Serial / Lot Mesh Flat Sheet 1x4 [id number] - [id number] Implanted:Qty: 1 on 11/12/2022 by Willie Musa MD at OR [facility] Right: Groin CR BARD : DAVOL 09/04/2025 [id number] / / [id number] documented as of this encounter Advance Directives [...] the patient have Health Care Power of Hearing Aid Repair Technician? No Care Teams Manager Store Relationship Specialty Start Date End Date Pramod Damian MD [address] [facility] [place] [address] PCP - General 04/10/02 documented as of this encounter
--- OUTSIDE RECORDS SUMMARY | 2023-11-16 12:05 | External Medical Summary | Summary of Care ---
Author Name Unknown Organization [facility] Address [address] [place] [address] Phone [phone] Care Team Providers Care Paster Hat Lining Name Role Phone Pramod Damian MD Primary Care Provider [phone]- [phone] Reason for Visit * Reason Comments Acute Patient is here toda y to discuss trouble sleeping, anxiety, and some nausea. Patient took hydroxyzine this morning for his anxiety and he feels it made him feel worse. Patient wants to discuss other medication options. Encounter Details Date Type Department Care Team (Late st Contact Info) Description 09/14/2023 3:20 PM EDT Office Visit [facility] [address] [place] [address] Benito Du MD [address] [place] [address] Nausea*; Anxiety Allergies Active Allergy Reactions Criticality Noted [...] as of this encounter (statuses as of 09/14/2023) Medications Medication Sig Dispensed Refills Start Date End Date Status Blood Glucose Monitoring Suppl (Desktop Genetics VERSinch) w/Device KIT Use up to 4 times a day 1 Kit 0 11/11/2017 Active ONETOUCH DELICA LANCETS FINE MISC Use four times daily 100 Each 11 05/12/2019 Active Renal Vitamin 0.8 MG Oral Tablet Take by mouth. 0 Active ASLAN PharmaceuticalsTouch VerNext Performance In Vitro Strip (Glucose Blood)Indications:T ype 2 [...] the morning. 30 Tablet 5 03/22/2023 Active Terazosin HCl 1 MG Oral Capsule [...] by mouth in the morning. 0 Active HYDROcodone-Acetami nophen 5-325 MG Oral TabletIndications:A cute right-sided low back pain without sciatica Take 1 Tablet by mouth every 6 hours as needed for Pain, Mild or Pain, Severe. 30 Tablet 0 09/07/2023 Active Additional Information Patient not taking.Reported on 09/14/2023 Ondansetron 4 MG Oral Tablet Disintegrating (Zofran)Indications :Nausea Place 1 Tablet on tongue every 8 hours as needed for Nausea. dissolve on tongue. 20 Tablet 0 09/14/2023 Active Docusate Sodium 100 MG Oral Capsule Take 1 Capsule by mouth in the morning and 1 Capsule before bedtime. 0 09/14/19 24 Discontinu ed(Medicat ion List Clean Up) Potassium Chloride ER 20 MEQ Oral Tablet Extended Release Take 2 Tablets by mouth in the morning. 60 Tablet 3 03/05/2023 09/14/19 24 Discontinu ed(Medicat ion List Clean Up) Amoxicillin-Pot Clavulanate 500-125 MG Oral Tablet (Augmentin) Take 1 Tablet by mouth in the morning and 1 Tablet before bedtime. Do all this for 7 days. 14 Tablet 0 05/18/2023 09/14/19 24 Discontinu ed(Medicat ion List Clean Up) hydrOXYzine HCl 25 MG Oral TabletIndications:N ausea,Anxiety Take 1-2 tabs every 6 hours as needed for anxiety or nausea. 30 Tablet 0 08/10/2023 09/14/19 24 Discontinu ed(Medicat ion List Clean Up) documented as of this encounter (statuses as of 09/14/2023) Active Problems Problem Noted Date Diagnosed Date [...] as of this encounter (statuses as of 09/14/2023) Resolved Problems Problem Noted Date Diagnosed Date [...] CKD protocol #1 Hypertensive heart disease w [facility] congestive heart failure 08/27/2014 08/27/2014 Hypertensive heart disease w [facility] congestive heart failure 08/27/2014 05/25/2019 Overview: [...] as of this encounter (statuses as of 09/14/2023) Immunizations Name Administration Dates Next Due COVID-19 mRNA, LNP-s, No Pre serve, 2-Dose Series ([place]) 02/20/2021,01/30/2021 Pneumococcal Conjugate Vacc, 13 Valent (Prevnar) [...] Sign Reading Time Taken Comments Blood Pressure 124/72 09/14/2023 3:19 PM EDT Pulse 86 09/14/2023 3:19 PM EDT Temperature 36.9 C (98.4 F) 09/14/2023 3:19 PM ED T Respiratory Rate 16 09/14/2023 3:19 PM EDT Oxygen Saturation 98% 09/14/2023 3:19 PM EDT Inhaled Oxygen Concentration - - Weight 86.6 kg (191 lb) 09/14/2023 3:19 PM EDT Height - - Body Mass Index 29.91 09/07/2023 5:32 PM EDT documented in this encounter Functional [...] as of this encounter Progress Notes * Benito Du MD - 09/14/2023 3:39 PM EDT Images from the original note were not included. Assessment and Plan Anxiety under poor control. Per chart review patient has not tolerated SSRIs in the past. He was not interested in trying them again. We did discuss liberalizing his use of BuSpar as he is currently only using partial pills infrequently. Avoid benzodiazepines given history of recent opioid and baclofen overdose. Treat nausea on an as needed basis with Zofran. No other changes to medications at the visit today. 1. Anxiety 2. Nausea - Ondansetron 4 MG Oral Tablet Disintegrating (Zofran); Place 1 Tablet on tongue every 8 hours as needed for Nausea. dissolve on tongue. Dispense: 20 Tablet; Refill: 0 Wrap-Up Follow up as needed. History of Present Illness The patient is an 83 year old male with past medical history of type 2 diabetes, hypothyroidism, dyslipidemia, COPD, HTN, LVH, CKD4, anxiety who presents for follow up. Patient presents for follow up of primarily anxiety. He was a recent hospitalization for overdose of hydrocodone acetaminophen and baclofen. Specifically since that time has been dealing with significant anxiety. He was currently prescribed BuSpar 5 mg up to every 4 hours. He reports taking half toa quarter of a pill with some improvement in anxiety. Anxiety seems to be generalized in fairly constant. Patient also is dealing with some intermittent nausea. This was at its worst shortly after his hospitalization and has been slowly improving over time. He was asking for an as needed medication to use for the nausea. Physical Exam Vitals: 09/14/23 1519 Temp: 36.9 C (98.4 F) Pulse: 86 Resp: 16 SpO2: 98% BP: 124/72 Physical Exam Physical Exam Vitals reviewed. Constitutional: General: He is not in acute distress. Comments: Using wheelchair for mobility. Pulmonary: Effort: Pulmonary effort is normal. No respiratory distress. Neurological: General: No focal deficit present. Mental Status: He is alert. Psychiatric: Mood and Affect: Mood normal. Behavior: Behavior normal. This note has been completed in part utilizing gate5 Speech Voice Recognition Software. Due to technical limitations of the software, grammatical errors, random word insertions, prounoun errors, and incomplete sentences may occur. Any formal questions or concerns about the content, text, or information contained within the body of this dictation should be directly addressed to the provider for clarification. documented in this encounter Nursing Notes * Marisela Torres LPN - 09/14/2023 3:23 PM EDT The patient has been properly identified by confirmation of name and date of . Chief Complaint Patient presents with Acute Patient is here today to discuss trouble sleeping, anxiety, and some nausea. Patient took hydroxyzine this morning for his anxiety and he feels it made him feel worse. Patient wants to discuss other medication options. documented in this encounter Plan of Treatment Upcoming Encounters Date Type Department Care Team (Late st Contact Info) Description 09/21/2023 10:15 AM EDT Scheduled Telephone [facility] [address] [place] [address] Dimple Ralph, [facility] [address] [place] [address] 09/28/2023 8:45 AM EDT Scheduled Telephone Care Coordination and Integration [address] [place] [address] Dimple Ralph, [facility] [address] [place] [address] 10/05/2023 8:15 AM EDT Scheduled Telephone Care Coordination and Integration [address] [place] [address] Dimple Ralph, [facility] [address] [place] [address] 10/12/2023 8:15 AM EDT Scheduled Telephone Care Coordination and Integration [address] [place] [address] Dimple Ralph, [facility] [address] [place] [address] 02/22/2024 3:40 PM EDT Office Visit [facility] [address] [place] [address] Pramod Damian MD [address] [place] [address] Health Maintenance Due Date Last [...] this encounter Medical Devices Implanted Type Area Coater Slate Device Identifier Shelf Expiration Date Model / Serial / Lot Mesh Flat Sheet [id number] - [id number] Implanted:Qty: 1 on 11/12/2022 by Willie Musa MD at [facility] Right: Groin CR BARD : DAVOL 09/04/2025 [id number] / / [id number] documented as of this encounter Visit Diagnoses Diagnosis Nausea- Primary Nausea alone Anxiety Anxiety state, unspecified documented in this [...] the patient have Health Care Power of Regional Merchandising Manager? No Care Teams Paster Hat Lining Relationship Specialty Start Date End Date Pramod Damian MD [address] [place] [address] PCP - General 04/10/02 documented as of this encounter
--- OUTSIDE RECORDS SUMMARY | 2023-11-16 12:06 | External Medical Summary | Summary of Care ---
Author Name Unknown Organization [facility] Address [address] [place] [address] Phone [phone] Care Team Providers Care Freight Solicitor Name Role Phone Pramod Damian MD Primary Care Provider [phone]- [phone] Reason for Visit * Reason Onset Date Comments Med Request 08/20/2023 Encounter Details Date Type Department Care Team (Late st Contact Info) Description 08/20/2023 Telephone [facility] [address] [place] [address] Pramod Damian MD [address] [place] [address] Med Request Allergies Active Allergy [...] as of this encounter (statuses as of 08/23/2023) Medications Medication Sig Dispensed Refills Start Date End Date Status Blood Glucose Monitoring Suppl (Beam.) w/Device KIT Use up to 4 times a day 1 Kit 0 11/11/2017 Active NvigenTOUCH DELICA LANCETS FINE MISC Use four times daily 100 Each 11 05/12/2019 Active Renal Vitamin 0.8 MG Oral Tablet Take by mouth. 0 Active glipiZIDE ER 10 MG Oral Tablet Extended Release 24 Hour (glipiZIDE XL) Take 1 Tablet by mouth in the morning. 30 minutes before a meal.. 30 Tablet 5 10/08/2022 Active Additional Information Patient not taking.Reported on 07/26/2023 authorGEN In Vitro Strip (Glucose Blood)Indications:T ype 2 [...] or nausea. 30 Tablet 0 08/10/2023 Active HYDROcodone-Acetami nophen 5-325 MG Oral TabletIndications:A cute right-sided low back pain without sciatica Take 1 Tablet by mouth every 6 hours as needed for Pain, Mild or Pain, Severe. 20 Tablet 0 08/19/2023 Active documented as of this encounter (statuses as of 08/23/2023) Active Problems Problem Noted Date Diagnosed Date [...] as of this encounter (statuses as of 08/23/2023) Resolved Problems Problem Noted Date Diagnosed Date [...] CKD protocol #1 Hypertensive heart disease w [facility] congestive heart failure 08/27/2014 08/27/2014 Hypertensive heart disease w [facility] congestive heart failure 08/27/2014 05/25/2019 [...] as of this encounter (statuses as of 08/23/2023) Immunizations Name Administration Dates Next Due COVID-19 mRNA, LNP-s, No Pre serve, 2-Dose Series ([address]) 02/20/2021,01/30/2021 Pneumococcal Conjugate Vacc, 13 Valent (Prevnar) [...] encounter Miscellaneous Notes * Telephone Encounter - Janina Sotelo LPN - 08/23/2023 12:24 PM EDT Pt currently in hospital * Telephone Encounter - Charla Dowell PHARM Tech - 08/20/2023 12:11 PM EDT Pt called stating that he believes he is having muscle spasms and asked if something can be prescribed for him, pt stated he is miserable and would like a call back at [phone] , please advise Thank you, Charla Dowell,[facility] Insurance Claims Clerk II [facility] ([facility]) 08/20/2023,12:12 PM documented in this encounter Plan of Treatment Upcoming Encounters Date Type Department Care Team (Late st Contact Info) Description 09/07/2023 2:20 PM EDT Office Visit Podiatry [facility] [address] [place] [address] Magalie Parker DPM [address] [place] [address] 09/07/2023 5:40 PM EDT Office Visit [facility] [address] [place] [address] Pramod Damian MD [address], [place] [address] Health Maintenance Due Date Last Done Comments [...] this encounter Medical Devices Implanted Type Area Toggle Press Folder And Feeder Device Identifier Shelf Expiration Date Model / Serial / Lot Mesh Flat Sheet 1x4 [id number] - [id number] Implanted:Qty: 1 on 11/12/2022 by Willie Musa MD at [facility] Right: Groin CR BARD : DAVOL 09/04/2025 [id number] / / [id number] documented as of this encounter Advance Directives [...] the patient have Health Care Power of Take Up Operator? No Care Teams Freight Solicitor Relationship Specialty Start Date End Date Pramod Damian MD [address] [place] [address] PCP - General 04/10/02 documented as of this encounter
--- OUTSIDE RECORDS SUMMARY | 2023-11-16 12:06 | External Medical Summary | Summary of Care ---
Author Name Unknown Organization [facility] Address [address] [facility] [address] Phone [phone] Care Team Providers Care Protective Signal Repairer Name Role Phone Pramod Damian MD Primary Care Provider [phone]- [phone] Encounter Details Date Type Department Care Team (Late st Contact Info) Description 08/24/2023 Result Scan Unspecified Department <No scans attached> Allergies Active Allergy Reactions Criticality Noted Date [...] as of this encounter (statuses as of 08/26/2023) Medications Medication Sig Dispensed Refills Start Date [...] Additional Information Patient not taking.Reported on 07/26/2023 Biomoti In Vitro Strip (Glucose Blood)Indications:T ype 2 [...] as of this encounter (statuses as of 08/26/2023) Active Problems Problem Noted Date Diagnosed Date [...] as of this encounter (statuses as of 08/26/2023) Resolved Problems Problem Noted Date Diagnosed Date [...] CKD protocol #1 Hypertensive heart disease w [facility] congestive heart failure 08/27/2014 08/27/2014 Hypertensive heart disease w [facility] congestive heart failure 08/27/2014 05/25/2019 Overview: [...] as of this encounter (statuses as of 08/26/2023) Immunizations Name Administration Dates Next Due COVID-19 mRNA, LNP-s, No Pre serve, 2-Dose Series ([place]) 02/20/2021,01/30/2021 Pneumococcal Conjugate Vacc, 13 Valent (Prevnar) [...] 09/07/2023 2:20 PM EDT Office Visit Podiatry [facility] [address] [place] [address] Magalie Parker DPM [address] [place] [address] 09/07/2023 5:40 PM EDT Office Visit [place] [address] [facility] [place] [id number] Pramod Damian MD [address] [place] [address] Health Maintenance Due Date Last Done Comments [...] encounter Medical Devices Implanted Type Area Metal Hanging Supervisor Device Identifier Shelf Expiration Date Model / Serial / Lot Mesh Flat Sheet 1x4 [id number] - [id number] Implanted:Qty: 1 on 11/12/2022 by Willie Musa MD at [facility] Right: Groin CR BARD : DAVOL 09/04/2025 [id number] / / [id number] documented as of this encounter Procedures Procedure Name Priority Date/Time Associated Diagnosis Comments PROCEDURE SCANNED RESULT 08/24/2023 documented in this encounter Results * PROCEDURE SCANNED RESULT (08/24/2023) 08/24/2023 No Physician Data Unknown SURGERY documented in this encounter Advance Directives Latest [...] the patient have Health Care Power of Pipe Stripper? No Care Teams Protective Signal Repairer Relationship Specialty Start Date End Date Pramod Damian MD [address] [place] [address] PCP - General 04/10/02 documented as of this encounter
[2023-11-16] MEDS: DEXTROSE 50% 50 ML SYRINGE IV PRN (14:39)
--- NOTE | 2023-11-16 14:49 | Communication Note ---
Date of Service: November 16, 2023 Patient evaluated this am after moving from ED to floor. Reports subjective improvement Exam with LLQ tenderness #acute diverticulitis #Elevated lipase, low suspicion for pancreatitis CT scan showing inflammatory change of the sigmoid colon concerning for acute diverticulitis Also with Small amount of fluid in the lower abdomen and pelvis. Free air foci may represent viscous perforation. Alternatively, free air could be secondary to manipulation of the peritoneal dialysis catheter. Surgery following - "microperforation cannot be excluded" -Continue conservative management - IV Zosyn GI following -Low suspicion for ongoing pancreatitis as well given no ct evidence of such Given NPO and low BS, add D5LR at gentle rate. -Advance to CLD given clinical improvement #ESRD on PD nephrology consult # hyponatremia sodium 126, uptrending to 128 nephro following #DMTII holding p.o. meds A1C 9.3% sliding scale follow blood sugars CLD started and D5LR to prevent hypoglycemia #chronic HFpEF continue torsemide monitor fluid status #hypothyroidism TSH wnl 4.095 on admission on Synthroid #persistent atrial fibrillation on metoprolol succinate Eliquis held 2/2 ?hemorrhoidal bleed Hgb stable, will add heparin sq and trend CBC resume eliquis as able Rest of plan per HP
[2023-11-16] MEDS: D5W AND LACTATED RINGERS 1,000 ML IV SCH (15:11)
[2023-11-16 16:03] LABS: BUN Creatinine Ratio 9.7 (10-20); Calcium 8.8 mg/dl (8.6-10.3); Est GFR (African American) 7.1 ml/min; Est GFR (Non-African American) 6.2 ml/min; Potassium 4.5 mmol/L (3.5-5.1)
[2023-11-16] MEDS ORDERED: Nursing to Pharmacy Communication ONE (16:21)
[2023-11-16] MEDS: CARBOHYDRATES FOR HYPOGLYCEMIA PO PRN (17:06)
[2023-11-16] MEDS: ACETAMINOPHEN 325 MG TAB PO PRN (21:17)
[2023-11-16] MEDS: HEPARIN SOD 5,000 UNIT/0.5 ML VIAL SQ SCH (21:18)
[2023-11-16] MEDS: TERAZOSIN HCL 1 MG CAP PO SCH (21:18)
[2023-11-16 21:38] LABS: BUN Creatinine Ratio 9.6 (10-20); Calcium 9.2 mg/dl (8.6-10.3); Creatinine Clr Calc Pharmacy 8.3 ml/min; Est GFR (African American) 7.5 ml/min; Est GFR (Non-African American) 6.5 ml/min; Potassium 4.8 mmol/L (3.5-5.1)
[2023-11-17] MEDS: HYDROmorphone INJ 0.5 MG/0.5 ML SYR IV PRN ×2 (05:48→22:16)
[2023-11-17 07:46] LABS: Hematocrit (blood only) 30.3 % (42.0-52.0); Hemoglobin 10.5 g/dl (14.0-18.0); Mean Corpuscular Hemoglobin 31.4 pg (25.0-34.0); Mean Corpuscular Hgb Conc 34.7 g/dL (32.0-36.0); Mean Corpuscular Volume 90.7 fL (80.0-100.0); Mean Platelet Volume 9.6 fL (9.4-12.4); Platelet Count 259 K/uL (130-400); RDW Coefficient of Variation 14.1 % (11.5-14.5); Red Blood Count 3.34 M/uL (4.70-6.10); White Blood Count 7.63 K/ul (4.8-10.8)
[2023-11-17 08:09] LABS: BUN Creatinine Ratio 9.5 (10-20); Calcium 8.7 mg/dl (8.6-10.3); Creatinine Clr Calc Pharmacy 8.5 ml/min; Est GFR (African American) 7.7 ml/min; Est GFR (Non-African American) 6.6 ml/min; Magnesium 2.3 mg/dl (1.7-2.4); Phosphorus 9.4 mg/dl (2.5-4.9); Potassium 4.6 mmol/L (3.5-5.1)
--- NOTE | 2023-11-17 09:53 | Surgery Progress Note ---
Date of Service November 17, 2023 Assessment & Plan (1) Diverticulitis: Plan: doing ok but would keep on clears for now cont iv antibiotics no urgent indication for surgical intervention. will continue to follow (2) End-stage renal disease on peritoneal dialysis: (3) Permanent atrial fibrillation: Admission and Anticipated Discharge Date Admission Date: November 16, 2023 Subjective pt seen. feeling ok now but had some significant pain last night. anya clears Physical Exam Physical Exam: alert. nad Constitutional: WD/WN, vitals as above no acute distress and not ill appearing Eyes: PERRL, conjunctivae normal, anicteric sclerae EOM intact bilaterally ENMT: external ear and nose normal, oropharynx normal Ears: no hearing impairment Neck: trachea midline, no thyromegaly Respiratory: normal respiratory effort; no respiratory distress and does not use accessory muscles Cardiovascular: Rate/Rhythm: regular rate and regular rhythm Gastrointestinal (Abdomen): soft. mild left sided ttp. no peritonitis Skin: no rashes, warm and dry Psychiatric: Orientation: alert, oriented x 3 and cooperative Results & Data Vital Signs (Past 12 Hours) Vital Signs Temp Pulse Pulse Pulse Resp BP BP 11/17/23 08:03 36.6 C 98 H 18 11/17/23 07:50 36.6 C 98 H 18 116/70 11/17/23 03:22 36.9 C 94 H 18 108/79 11/16/23 23:42 36.9 C 78 18 102/60 11/16/23 23:39 94 H Pulse Ox O2 Del Method 11/17/23 08:03 11/17/23 07:50 94 Room Air 11/17/23 03:22 96 Room Air 11/16/23 23:42 92 Room Air 11/16/23 23:39 PG Care Time/CCT Total # of Minutes Spent Total Time Spent with Patient: Total time spent is greater than 50% in coordination of care (as documented) at patient's floor/unit and/or counseling patient: Coding Level of Care Code 30967 SUB INP/OBS CARE 06/03MIN Diagnoses Diverticulitis K57.92 End-stage renal disease on peritoneal dialysis N18.6; Z99.2 Permanent atrial fibrillation I48.21
--- NOTE | 2023-11-17 10:32 | Dialysis Progress Note ---
Date of Service November 17, 2023 Assessment & Plan Admission and Anticipated Discharge Date Admission Date: November 16, 2023 Subjective Assessment & Plan (1) End-stage renal disease on peritoneal dialysis: 83-year-old male with ESRD on peritoneal dialysis. He normally does 3-4 exchange manually at home. He has extreme anxiety issue and does not like taking medications which means we never know what exactly is taking and how much dialysis he is he actually doing at home. appears to be slightly volume overloaded but still better than last time I saw him in the clinic. Renal labs appear as expected for ESRD. No evidence of major electrolyte problems. no abdominal pain and no issues reported with peritoneal dialysis at home. we should be able to do peritoneal dialysis tonight and will do with [facility] for 10 hours for exchange with all 2.5% solution. same Rx as last night. (2) Diverticulitis: Based on imaging symptoms and specialists note it appears to be diverticulitis. however his symptoms are fairly minimal and at the time of my exam he had no symptoms. already on antibiotics. S---had PD overnight through [facility]. No abd pain or any problems with PD. about 1800 ml UF. No abd pain now. gen surg saw already and said no Surgery needed ROS---Abd pain and some nausea. Ongoing severe issue with Anxiety/Panic attacks. otherwise 12 Systems reviewed and negative Physical Exam Physical Exam: General- Not in acute distress. Anxious as always Head- atraumatic. oropharynx clear Neck- supple, no JVD. Lungs- clear to auscultation no wheezing or crackles. Heart- regular rhythm; no murmur, no gallop. Abdomen- normal bowel sounds, soft, mild diffuse tenderness. PD cath site --normal. Extremities- Trace edema, no erythema seen. Neuro- alert, oriented ; PERRL no facial palsy; no dysarthria; moves extremities. Results & Data Vital Signs (Past 12 Hours) Vital Signs Temp Pulse Pulse Pulse Resp BP BP 11/17/23 08:03 36.6 C 98 H 18 11/17/23 07:50 36.6 C 98 H 18 116/70 11/17/23 03:22 36.9 C 94 H 18 108/79 11/16/23 23:42 36.9 C 78 18 102/60 11/16/23 23:39 94 H Pulse Ox O2 Del Method 11/17/23 08:03 11/17/23 07:50 94 Room Air 11/17/23 03:22 96 Room Air 11/16/23 23:42 92 Room Air 11/16/23 23:39
[2023-11-17] MEDS: cefTRIAXone SODIUM 2,000 MG/50 ML BAG IV SCH (15:41)
[2023-11-17] MEDS: metroNIDAZOLE 500 MG/100 ML BAG IV SCH (16:21)
--- NOTE | 2023-11-17 17:34 | Hospitalist Progress Note ---
Date of Service November 17, 2023 Assessment & Plan (1) Diverticulitis: Plan: 83-year-old male with past medical history significant for type 2 diabetes, hypothyroidism, hyperlipidemia, hyperparathyroidism secondary to renal disease, cyst of pancreas, postoperative hypothyroidism, history of hypokalemia, end- stage renal disease on peritoneal dialysis, history of COPD, chronic diastolic CHF, left ventricular hypertrophy, hypertension, left bundle branch block, en largement of aortic root, pulmonary hypertension, persistent atrial fibrillation, GERD, iron deficiency anemia, panic disorder, anxiety disorder, history of thyroid cancer, history of prostate cancer, history of hyponatremia, who lives at home with his and ambulates with a walker was brought in because of abdominal pain. Patient saying that he is having abdominal pain for some time but last 2 days got worse. The pain is mainly located in the left lower side but sometimes the pain can happen at other parts of abdomen too. Patient denies nausea. No fevers. Had normal bowel movement. Denies blood in the stools. Doesn't make much urine. Denies chest pain or shortness of breath. No headache. No blurred vision. No runny nose or sore throat no cough. Currently resting comfortably and hemodynamically stable. Asking for pain medication. Daughter is in the room. Acute diverticulitis Possible UTI --CT scan:Small amount of fluid in the lower abdomen and pelvis. Free air foci may represent viscous perforation. Alternatively, free air could be secondary to manipulation of the peritoneal dialysis catheter. Diverticulosis. Inflammatory changes of the sigmoid colon, concerning for acute diverticulitis. Prominence of the bladder wall is nonspecific. Please correlate with urinalysis if concerned for cystitis. Cholelithiasis. Prostatomegaly. Calcifications of the prostate. -Blood culture negative to date -Urine culture pending -- IV Zosyn transition to Rocephin, Flagyl per patient's preference Clear liquid diet for now Appreciate surgery input Pain control End-stage renal disease on peritoneal dialysis Appreciate Nephrology Input Hyponatremia Chronic Sodium improved to 130 Monitor sodium levels Nephrology on board DM II HbA1c 9.3 hold p.o. meds Continue insulin while hospitalized Monitor BGs Chronic diastolic CHF on peritoneal dialysis continue home torsemide monitor volume status Hypothyroidism Normal TSH Continue levothyroxine H/O Persistent atrial fibrillation Continue metoprolol last few days was not taking Eliquis because of questionable hemorrhoid bleed hold Eliquis for now Patient denies any bleeding issues currently COPD continue home inhalers Gout on allopurinol Hypertension on metoprolol succinate and terazosin Monitor BP Anxiety disorder on buspirone H/O Prostate cancer S/p prostate cryotherapy H/O Thyroid cancer S/P thyroidectomy DVT Px: Heparin SQ CODE STATUS Full code Admission and Anticipated Discharge Date Admission Date: November 16, 2023 Subjective Patient is seen and examined at bedside Abdominal pain improving Tolerating current diet Prefers IV Zosyn to be changed to other antibiotics preferably including Flagyl Denies any nausea, vomiting, chest pain, dyspnea No other complaints Review of Systems Review of Systems: All systems reviewed & are unremarkable except as noted in Subjective Physical Exam Physical Exam: Physical Exam: Vitals signs as noted above General Appearance:Moderately built and nourished, no apparent distress Head: normocephalic, Atraumatic Eyes: normal inspection, EOMI Neck: supple, Trachea midline Respiratory/Chest: Normal breath sounds, CTA, No accessory muscle use Cardiovascular: Irregularly irregular, No murmur Abdomen/GI:Soft, LLQ tender, Bowel sounds present,+PD catheter Extremities/Musculoskeletal:normal inspection, Trace edema Neurologic/Psych:AAOX3, grossly no focal neurological deficits Skin: normal color, warm Results & Data Results & Data Vital Signs (Past 12 Hours) Vital Signs Temp Pulse Pulse Pulse Resp BP BP 11/17/23 16:14 126 H 11/17/23 15:26 36.6 C 106 H 18 110/73 11/17/23 11:48 36.7 C 94 H 18 98/67 L 11/17/23 08:25 11/17/23 08:03 36.6 C 98 H 18 11/17/23 07:50 36.6 C 98 H 18 116/70 Pulse Ox Pulse Ox O2 Del Method O2 Del Method 11/17/23 16:14 11/17/23 15:26 93 Room Air 11/17/23 11:48 94 Room Air 11/17/23 08:25 94 Room Air 11/17/23 08:03 11/17/23 07:50 94 Room Air Laboratory Results Short CBC 11/17/23 Range/Units 06:45 WBC 7.63 (4.8-10.8) K/ul Hgb 10.5 L (14.0-18.0) g/dl Hct 30.3 L (42.0-52.0) % Plt Count 259 (130-400) K/uL BMP 11/16/23 11/17/23 20:33 06:45 Sodium 128 L 130 L Potassium 4.8 4.6 Chloride 90 L 91 L Carbon Dioxide 22 23 BUN 69 H 67 H Creatinine 7.16 H* 7.03 H* Glucose 125 H 170 H Calcium 9.2 8.7
--- NOTE | 2023-11-18 02:50 | Communication Note ---
Date of Service: November 18, 2023 Patient with bloody loose BM as per RN. No unusual abdominal pain. AP Hematochezia CBC now Stool C. difficile hold Heparin subcu for now
[2023-11-18 03:49] LABS: Basophils # (auto) 0.04 K/uL (0.00-0.20); Basophils % (auto) 0.6 %; Eosinophils # (auto) 0.25 K/uL (0.00-0.50); Eosinophils % (auto) 3.8 %; Hematocrit (blood only) 31.4 % (42.0-52.0); Hemoglobin 10.5 g/dl (14.0-18.0); Immature Granulocytes # (auto) 0.01 K/uL (0.01-0.20); Immature Granulocytes % (auto) 0.2 %; Lymphocytes # (auto) 1.04 K/uL (1.20-3.40); Lymphocytes % (auto) 15.8 %; Mean Corpuscular Hemoglobin 31.3 pg (25.0-34.0); Mean Corpuscular Hgb Conc 33.4 g/dL (32.0-36.0); Mean Corpuscular Volume 93.7 fL (80.0-100.0); Mean Platelet Volume 9.7 fL (9.4-12.4); Monocytes # (auto) 0.81 K/uL (0.11-0.59); Monocytes % (auto) 12.3 %; Neutrophils # (auto) 4.43 K/uL (1.40-6.50); Neutrophils % (auto) 67.3 %; Platelet Count 280 K/uL (130-400); RDW Coefficient of Variation 14.5 % (11.5-14.5); RDW Standard Deviation 49.5 fL (36.4-46.3); Red Blood Count 3.35 M/uL (4.70-6.10); White Blood Count 6.58 K/ul (4.8-10.8)
[2023-11-18 04:00] LABS: BUN Creatinine Ratio 8.8 (10-20); Calcium 9.2 mg/dl (8.6-10.3); Creatinine Clr Calc Pharmacy 8.6 ml/min; Est GFR (African American) 7.8 ml/min; Est GFR (Non-African American) 6.7 ml/min; Phosphorus 9.2 mg/dl (2.5-4.9); Potassium 4.2 mmol/L (3.5-5.1)
[2023-11-18] MEDS: ADVANCED PROBIOTIC 625 MG CAPSULE PO SCH (10:13)
[2023-11-18] MEDS: ACETAMINOPHEN 1,000 MG/100 ML VIAL IV STA (12:08)
[2023-11-18] MEDS: PIPERACILLIN/TAZOBACTAM 4.5 GM in DEXTROSE 5% MINI-B 100 ML IV ONE (12:13)
--- NOTE | 2023-11-18 12:17 | Surgery Progress Note ---
Date of Service November 18, 2023 Assessment & Plan (1) Diverticulitis: Plan: pt here w/ diverticulitis wbc 6, Hbg stable at 10.5. vitals stable, pt afebrile he is reporting ongoing pain in the LLQ that's not improving. on exam abdomen is soft and not peritonitic. he has discomfort in suprapubic and llq he's unsure if liquids making it any worse, but denies n/v I will order a dose of IV tylenol to add to his pain regimen May need to back down to npo/ice/sips until his symptoms resolve or at least start improving continue IV abx no plans for surgical intervention indicated at this time Admission and Anticipated Discharge Date Admission Date: November 16, 2023 Subjective Patient reporting ongoing abdominal pain in the left lower abdomen that is not improving. denies n/v. has been on clears, not sure that taking them in is making them worse, although he doesn't feel like he's getting better. He denies BM although a small one is documented. Physical Exam Physical Exam: awake/alert, no distress Respiratory: normal respiratory effort Gastrointestinal (Abdomen): Inspection/Auscultation: abdomen not distended Percussion/Palpation: + abdomen tender (discomfort in suprapubic and llq) and abdomen soft; abdomen not rigid and abdomen not firm Results & Data Vital Signs (Past 12 Hours) Vital Signs Temp Pulse Pulse Resp BP BP Pulse Ox 11/18/23 11:14 97.9 F 91 H 15 126/81 94 11/18/23 08:41 97.9 F 80 18 11/18/23 08:00 11/18/23 07:47 98.1 F 79 16 120/76 98 11/18/23 02:47 97.7 F 105 H 18 120/75 97 11/18/23 01:19 107 H Pulse Ox O2 Del Method O2 Del Method 11/18/23 11:14 Room Air 11/18/23 08:41 11/18/23 08:00 98 Room Air 11/18/23 07:47 Room Air 11/18/23 02:47 Room Air 11/18/23 01:19 PG Care Time/CCT Total # of Minutes Spent Total Time Spent with Patient: Total time spent is greater than 50% in coordination of care (as documented) at patient's floor/unit and/or counseling patient: Coding Level of Care Code 85582 SUB INP/OBS CARE Diagnoses Diverticulitis K57.92
--- NOTE | 2023-11-18 14:06 | Dialysis Progress Note ---
Date of Service November 18, 2023 Assessment & Plan Admission and Anticipated Discharge Date Admission Date: November 16, 2023 Subjective Assessment & Plan (1) End-stage renal disease on peritoneal dialysis: 83-year-old male with ESRD on peritoneal dialysis. He normally does 3-4 exchange manually at home. He has extreme anxiety issue and does not like taking medications which means we never know what exactly is taking and how much dialysis he is he actually doing at home. appears to be slightly volume overloaded but still better than last time I saw him in the clinic. Renal labs appear as expected for ESRD. No evidence of major electrolyte problems. no abdominal pain and no issues reported with peritoneal dialysis at home. we should be able to do peritoneal dialysis tonight and will do with [facility]er for 10 hours for exchange with all 2.5% solution. same Rx as last night. (2) Diverticulitis: Based on imaging symptoms and specialists note it appears to be diverticulitis. however his symptoms are fairly minimal and at the time of my exam he had no symptoms. already on antibiotics. gen surg note reviewed S---had PD overnight through [facility]. No abd pain or any problems with PD. 923 ml UF. No alarms or issues with PD No abd pain now. gen surg saw already and said no Surgery needed ROS---Abd pain and some nausea. Ongoing severe issue with Anxiety/Panic attacks. otherwise 12 Systems reviewed and negative Physical Exam Physical Exam: General- Not in acute distress. Anxious as always Head- atraumatic. oropharynx clear Neck- supple, no JVD. Lungs- clear to auscultation no wheezing or crackles. Heart- regular rhythm; no murmur, no gallop. Abdomen- normal bowel sounds, soft, mild diffuse tenderness. PD cath site --normal. Extremities- Trace edema, no erythema seen. Neuro- alert, oriented ; PERRL no facial palsy; no dysarthria; moves extremities. Results & Data Vital Signs (Past 12 Hours) Vital Signs Temp Pulse Resp BP BP Pulse Ox Pulse Ox 11/18/23 11:14 36.6 C 91 H 15 126/81 94 11/18/23 08:41 36.6 C 80 18 11/18/23 08:00 98 11/18/23 07:47 36.7 C 79 16 120/76 98 11/18/23 02:47 36.5 C 105 H 18 120/75 97 O2 Del Method O2 Del Method 11/18/23 11:14 Room Air 11/18/23 08:41 11/18/23 08:00 Room Air 11/18/23 07:47 Room Air 11/18/23 02:47 Room Air
--- NOTE | 2023-11-18 16:12 | Gastroenterology Progress Note ---
<Statement entered by Kalpana Solis MD - 11/18/23 16:22> I have examined the patient, reviewed the History & Physical and in the interval since the performance of the History & Physical I have noted the following changes of clinical significance: no changes noted. I agree with the documentation provided by TONO Hartley with no additional comments. Date of Service November 18, 2023 Assessment & Plan (1) Diverticulitis: (2) BRBPR (bright red blood per rectum): Plan Patient with some set back in pain today and had some rectal bleeding this morning that he tells me is typical for hemorrhoids. - if ongoing pain, would recommend updating CT A/P to assess. - he will need colonoscopy in 6-8 weeks given diverticulitis. will continue to monitor. Admission and Anticipated Discharge Date Admission Date: November 16, 2023 Subjective Patient today with some continued pain. The pain seems to be in his back by his ribs. he did have some blood in his stools this morning but he attributes this to hemorrhoids. he tells me he had been making progress and feeling better until today. no nausea, vomiting, abdominal pain. Physical Exam Gastrointestinal (Abdomen): abdomen soft, good bowel sounds. tenderness noted in back near ribs. Results & Data Results & Data Vital Signs (Past 12 Hours) Vital Signs Temp Pulse Resp BP BP Pulse Ox Pulse Ox 11/18/23 15:46 98.4 F 88 16 102/73 96 11/18/23 11:14 97.9 F 91 H 15 126/81 94 11/18/23 11:00 97.9 F 91 H 18 126/81 94 11/18/23 08:41 97.9 F 80 18 11/18/23 08:00 98 11/18/23 07:47 98.1 F 79 16 120/76 98 O2 Del Method O2 Del Method 11/18/23 15:46 Room Air 11/18/23 11:14 Room Air 11/18/23 11:00 Room Air 11/18/23 08:41 11/18/23 08:00 Room Air 11/18/23 07:47 Room Air Coding Level of Care Code 57762 SUB INP/OBS CARE 2/35MIN Diagnoses Diverticulitis K57.92 BRBPR (bright red blood per rectum) K62.5
[2023-11-18] MEDS: PIPERACILLIN/TAZOBACTAM 4.5 GM in DEXTROSE 5% MINI-B 100 ML IV SCH (16:15)
--- NOTE | 2023-11-18 16:50 | Hospitalist Progress Note ---
Date of Service November 18, 2023 Assessment & Plan (1) Diverticulitis: Plan: 83-year-old male with past medical history significant for type 2 diabetes, hypothyroidism, hyperlipidemia, hyperparathyroidism secondary to renal disease, cyst of pancreas, postoperative hypothyroidism, history of hypokalemia, end- stage renal disease on peritoneal dialysis, history of COPD, chronic diastolic CHF, left ventricular hypertrophy, hypertension, left bundle branch block, en largement of aortic root, pulmonary hypertension, persistent atrial fibrillation, GERD, iron deficiency anemia, panic disorder, anxiety disorder, history of thyroid cancer, history of prostate cancer, history of hyponatremia, who lives at home with his and ambulates with a walker was brought in because of abdominal pain. Patient saying that he is having abdominal pain for some time but last 2 days got worse. The pain is mainly located in the left lower side but sometimes the pain can happen at other parts of abdomen too. Patient denies nausea. No fevers. Had normal bowel movement. Denies blood in the stools. Doesn't make much urine. Denies chest pain or shortness of breath. No headache. No blurred vision. No runny nose or sore throat no cough. Currently resting comfortably and hemodynamically stable. Asking for pain medication. Daughter is in the room. Acute diverticulitis Possible UTI --CT scan:Small amount of fluid in the lower abdomen and pelvis. Free air foci may represent viscous perforation. Alternatively, free air could be secondary to manipulation of the peritoneal dialysis catheter. Diverticulosis. Inflammatory changes of the sigmoid colon, concerning for acute diverticulitis. Prominence of the bladder wall is nonspecific. Please correlate with urinalysis if concerned for cystitis. Cholelithiasis. Prostatomegaly. Calcifications of the prostate. -Blood culture negative to date -Urine culture: Noncontributory -- IV Zosyn transition to Rocephin, Flagyl per patient's preference>> agrees to switch back to Zosyn given no improvement Appreciate surgery input Pain control Given not tolerating diet, made n.p.o. again Gentle IV fluids given end-stage renal disease End-stage renal disease on peritoneal dialysis Appreciate Nephrology Input Bleeding per rectum Likely due to hemorrhoids Hemoglobin stable Eliquis on hold Monitor CBC GI following Hyponatremia Chronic Sodium improved to 132 Monitor sodium levels Nephrology on board DM II HbA1c 9.3 hold p.o. meds Continue insulin while hospitalized Monitor BGs Chronic diastolic CHF on peritoneal dialysis monitor volume status Hold torsemide as n.p.o. currently Hypothyroidism Normal TSH Continue levothyroxine H/O Persistent atrial fibrillation Continue metoprolol last few days was not taking Eliquis because of questionable hemorrhoid bleed hold Eliquis for now COPD continue home inhalers Gout on allopurinol Hypertension on metoprolol succinate and terazosin Monitor BP Anxiety disorder on buspirone H/O Prostate cancer S/p prostate cryotherapy H/O Thyroid cancer S/P thyroidectomy DVT Px: Heparin SQ--held due to rectal bleed SCDs for now CODE STATUS Full code Admission and Anticipated Discharge Date Admission Date: November 16, 2023 Subjective Patient is seen and examined at bedside Subjectively feels abdominal pain is worse today Patient had loose bloody bowel movement overnight Offers no other complaints today Denies any nausea, vomiting, chest pain, dyspnea Review of Systems Review of Systems: All systems reviewed & are unremarkable except as noted in Subjective Physical Exam Physical Exam: Physical Exam: Vitals signs as noted above General Appearance:Moderately built and nourished, no apparent distress Head: normocephalic, Atraumatic Eyes: normal inspection, EOMI Neck: supple, Trachea midline Respiratory/Chest: Normal breath sounds, CTA, No accessory muscle use Cardiovascular: Irregularly irregular, No murmur Abdomen/GI:Soft, LLQ tender, Bowel sounds present,+PD catheter Extremities/Musculoskeletal:normal inspection, Trace edema Neurologic/Psych:AAOX3, grossly no focal neurological deficits Skin: normal color, warm Results & Data Results & Data Vital Signs (Past 12 Hours) Vital Signs Temp Pulse Resp BP BP Pulse Ox Pulse Ox 11/18/23 15:46 36.9 C 88 16 102/73 96 11/18/23 11:14 36.6 C 91 H 15 126/81 94 11/18/23 11:00 36.6 C 91 H 18 126/81 94 11/18/23 08:41 36.6 C 80 18 11/18/23 08:00 98 11/18/23 07:47 36.7 C 79 16 120/76 98 O2 Del Method O2 Del Method 11/18/23 15:46 Room Air 11/18/23 11:14 Room Air 11/18/23 11:00 Room Air 11/18/23 08:41 11/18/23 08:00 Room Air 11/18/23 07:47 Room Air Laboratory Results Short CBC 11/18/23 Range/Units 03:06 WBC 6.58 (4.8-10.8) K/ul Hgb 10.5 L (14.0-18.0) g/dl Hct 31.4 L (42.0-52.0) % Plt Count 280 (130-400) K/uL BMP 11/18/23 03:06 Sodium 132 L Potassium 4.2 Chloride 93 L Carbon Dioxide 24 BUN 61 H Creatinine 6.91 H* Glucose 130 H Calcium 9.2
[2023-11-18] MEDS: SODIUM CHLORIDE 0.9% 1,000 ML IV ONE (17:21)
[2023-11-19 07:17] LABS: Hematocrit (blood only) 31.3 % (42.0-52.0); Hemoglobin 10.5 g/dl (14.0-18.0); Mean Corpuscular Hgb Conc 33.5 g/dL (32.0-36.0); Mean Corpuscular Volume 92.3 fL (80.0-100.0); Mean Platelet Volume 9.6 fL (9.4-12.4); Platelet Count 259 K/uL (130-400); RDW Coefficient of Variation 14.1 % (11.5-14.5); RDW Standard Deviation 47.7 fL (36.4-46.3); Red Blood Count 3.39 M/uL (4.70-6.10); White Blood Count 6.39 K/ul (4.8-10.8)
[2023-11-19 07:31] LABS: Calcium 8.6 mg/dl (8.6-10.3); Potassium 3.7 mmol/L (3.5-5.1)
[2023-11-19 07:41] LABS: BUN Creatinine Ratio 8.2 (10-20); Creatinine Clr Calc Pharmacy 8.7 ml/min; Est GFR (African American) 7.9 ml/min; Est GFR (Non-African American) 6.8 ml/min; Phosphorus 8.9 mg/dl (2.5-4.9)
--- NOTE | 2023-11-19 08:58 | Surgery Progress Note ---
Date of Service November 19, 2023 Assessment & Plan (1) Diverticulitis: Plan: clinically improving offered clears again but he is gun shy and wants to wait another day which I think is reasonable. no current indications for surgical intervention. Admission and Anticipated Discharge Date Admission Date: November 16, 2023 Subjective pt seen. had set back 2 days ago with pain after initiating clears.... feeling better this AM. still some mild pain. Physical Exam Constitutional: WD/WN, vitals as above no acute distress and not ill appearing Eyes: PERRL, conjunctivae normal, anicteric sclerae EOM intact bilaterally ENMT: external ear and nose normal, oropharynx normal Ears: no hearing impairment Neck: trachea midline, no thyromegaly Respiratory: normal respiratory effort; no respiratory distress and does not use accessory muscles Cardiovascular: Rate/Rhythm: regular rate and regular rhythm Gastrointestinal (Abdomen): soft. minimal LLQ ttp. improved from admission. Skin: no rashes, warm and dry Psychiatric: Orientation: alert, oriented x 3 and cooperative Results & Data Vital Signs (Past 12 Hours) Vital Signs Temp Pulse Pulse Resp BP Pulse Ox O2 Del Method 11/19/23 08:11 36.7 C 91 H 18 11/19/23 07:20 Room Air 11/19/23 07:18 36.9 C 95 H 106/69 96 Room Air 11/19/23 07:13 102 H 11/19/23 04:29 36.7 C 99 H 18 122/76 95 Room Air 11/19/23 00:10 96 H 11/18/23 23:54 36.7 C 95 H 18 109/66 94 Room Air PG Care Time/CCT Total # of Minutes Spent Total Time Spent with Patient: Total time spent is greater than 50% in coordination of care (as documented) at patient's floor/unit and/or counseling patient: Coding Level of Care Code 90293 SUB INP/OBS CARE Diagnoses Diverticulitis K57.92
--- NOTE | 2023-11-19 09:27 | Dialysis Progress Note ---
Date of Service November 19, 2023 Assessment & Plan Admission and Anticipated Discharge Date Admission Date: November 16, 2023 Subjective Subjective Assessment & Plan (1) End-stage renal disease on peritoneal dialysis: 83-year-old male with ESRD on peritoneal dialysis. He normally does 3-4 exchange manually at home. He has extreme anxiety issue and does not like takin g medications which means we never know what exactly is taking and how much dialysis he is he actually doing at home. appears to be slightly volume overloaded but still better than last time I saw him in the clinic. Renal labs appear as expected for ESRD. No evidence of major electrolyte problems. no abdominal pain and no issues reported with peritoneal dialysis at home. we should be able to do peritoneal dialysis tonight and will do with [facility] for 10 hours for exchange with all 2.5% solution. same Rx as last night. (2) Diverticulitis: Based on imaging symptoms and specialists note it appears to be diverticulitis. however his symptoms are fairly minimal and at the time of my exam he had no symptoms. already on antibiotics. gen surg note reviewed. Maybe one more day inpt. S---had PD overnight through [facility]. No abd pain or any problems with PD. 1950 ml UF. No alarms or issues with PD No abd pain now. gen surg saw already and said no Surgery needed-overall improving ROS---Abd pain and some nausea. Ongoing severe issue with Anxiety/Panic attacks. otherwise 12 Systems reviewed and negative Physical Exam Physical Exam: General- Not in acute distress. Anxious as always Head- atraumatic. oropharynx clear Neck- supple, no JVD. Lungs- clear to auscultation no wheezing or crackles. Heart- regular rhythm; no murmur, no gallop. Abdomen- normal bowel sounds, soft, mild diffuse tenderness. PD cath site --normal. Extremities- Trace edema, no erythema seen. Neuro- alert, oriented ; PERRL no facial palsy; no dysarthria; moves extremities. Results & Data Vital Signs (Past 12 Hours) Vital Signs Temp Pulse Pulse Resp BP Pulse Ox O2 Del Method 11/19/23 08:11 36.7 C 91 H 18 11/19/23 07:20 Room Air 11/19/23 07:18 36.9 C 95 H 106/69 96 Room Air 11/19/23 07:13 102 H 07/12/24 04:29 36.7 C 99 H 18 122/76 95 Room Air 11/19/23 00:10 96 H 11/18/23 23:54 36.7 C 95 H 18 109/66 94 Room Air
--- NOTE | 2023-11-19 10:35 | Gastroenterology Progress Note ---
<Statement entered by Kem West MD - 11/19/23 17:45> Patient seen and examined. Case discussed with [facility]OWER. Patient is feeling improved. He did have pain after CT but states meds improved this. He has had liquid BMs. Continue to observe. Date of Service November 19, 2023 Assessment & Plan (1) Abdominal pain: (2) Diverticulitis: (3) BRBPR (bright red blood per rectum): Plan Patient is an 83 year old male with past medical history significant for type 2 diabetes, hypothyroidism, hyperlipidemia, hyperparathyroidism secondary to renal disease, cyst of pancreas, postoperative hypothyroidism, history of hypokalemia, end-stage renal disease on peritoneal dialysis, history of COPD, chronic diastolic CHF, left ventricular hypertrophy, hypertension, left bundle branch block, enlargement of aortic root, pulmonary hypertension, persistent atrial fibrillation, GERD, iron deficiency anemia, panic disorder, anxiety disorder, history of thyroid cancer, history of prostate cancer, history of hyponatremia, presented to the [facility] with complaints of abdominal pain. He underwent a CT scan showing diverticulitis of sigmoid colon as well as concern for small fluid in abdomen/pelvis and free foci of air concerning for perforation of viscous vs ma nipulation of peritoneal dialysis cath. Surgery had seen him and evaluated him. It was suspected this was diverticulitis with possible microperforation. conservative management was recommended and he was started on zosyn. There was also a question of pancreatitis given he had a lipase of 168 on admission, but CT shown no signs of pancreatitis. He has noticed some brbpr. He also has had ongoing abdominal pain. - update CT scan. - continue to follow hgb/hct. transfuse as needed. - he will need colonoscopy in 6-8 weeks to further assess. Admission and Anticipated Discharge Date Admission Date: November 16, 2023 Subjective Patient tells me that he is still having pain in his back below his ribs. also having abdominal pain. it may be somewhat better today than it was yesterday. rated 2/10 to 5/10. he had a bowel movement this morning with some blood mixed in with loose stool. hgb is remaining stable at 10.5. no nausea, vomiting, heartburn.\ he tells me he is interested in updating CT as discussed yesterday. Review of Systems Review of Systems: All systems reviewed & are unremarkable except as noted in HPI & below Physical Exam Constitutional: WD/WN, vitals as above Respiratory: normal respiratory effort, lungs clear to auscultation Cardiovascular: RRR, no murmur, no edema Gastrointestinal (Abdomen): mild diffuse tenderness, no guarding, soft. normal bowel sounds. Psychiatric: Orientation: alert and oriented x 3 Affect: euthymic affect Results & Data Results & Data Vital Signs (Past 12 Hours) Vital Signs Temp Pulse Pulse Resp BP Pulse Ox Pulse Ox 11/19/23 08:11 98.1 F 91 H 18 11/19/23 08:00 96 11/19/23 07:20 11/19/23 07:18 98.4 F 95 H 106/69 96 11/19/23 07:13 102 H 11/19/23 04:29 98.1 F 99 H 18 122/76 95 11/19/23 00:10 96 H 11/18/23 23:54 98.1 F 95 H 18 109/66 94 O2 Del Method O2 Del Method 11/19/23 08:11 11/19/23 08:00 Room Air 11/19/23 07:20 Room Air 11/19/23 07:18 Room Air 11/19/23 07:13 11/19/23 04:29 Room Air 11/19/23 00:10 11/18/23 23:54 Room Air Coding Level of Care Code 35889 SUB INP/OBS CARE 2/35MIN Diagnoses Abdominal pain R10.84 Abdominal location: generalized Diverticulitis K57.92 BRBPR (bright red blood per rectum) K62.5 (1) Abdominal pain Abdominal location: generalized Qualified Code(s): R10.84 - Generalized abdominal pain
--- NOTE | 2023-11-19 13:18 | CT Scan Report ---
ABDOMEN AND PELVIS CT WITHOUT CONTRAST CT DOSE: 1733.51 mGy.cm HISTORY: abdominal/back pain TECHNIQUE: Multiaxial CT images of the abdomen and pelvis were performed without contrast. A dose lo wering technique was utilized adhering to the principles of ALARA. COMPARISON STUDY: Abdomen and pelvis CT 11/16/2023. FINDINGS: Bilateral lower lobe densities are again noted and favor subsegmental atelectasis. This is similar to the prior study. A superimposed pneumonia would be difficult to exclude. There is a small amount of pneumoperitoneum again noted most pronounced within the right upper quadrant. This has slig htly improved in the interval. Elevated right hemidiaphragm again noted. L2-S1 posterior decompressio n and fusion with pedicle screws and rods. No acute fractures. The heart remains mildly enlarged. A l eft lower quadrant peritoneal dialysis catheter is again noted and terminates in the right lower quad rant. Small amount of fluid/ascites within the abdomen has slightly progressed. This is most pronounc ed within the perihepatic space. Stable small hypodense lesions within the right hepatic lobe. These are incompletely characterized on this noncontrast study but favor cysts. Multiple bilateral renal hy podense lesions are also not significantly changed. There are few punctate bilateral renal calculi. N o ureteral calculi. No hydronephrosis. Stable 2.9 cm peripherally calcified cystic lesion at the panc reatic tail. A few punctate gallstones are suggested. No gallbladder wall thickening. Normal spleen a nd adrenal glands. Normal caliber abdominal aorta with moderate calcified plaque. No retroperitoneal or pelvic lymphadenopathy. The prostate gland remains enlarged. Mild bladder wall thickening likely d ue to chronic outlet obstruction. Suboptimal evaluation for bowel pathology due to the lack of intrav enous and oral contrast. However, there is no definite bowel wall thickening or obstruction. Normal a ppendix. Extensive colonic diverticulosis. No evidence for acute diverticulitis at this time. Fluid-f illed large bowel can be seen in the setting of a diarrheal illness/gastroenteritis. IMPRESSION: 1. A small amount of pneumoperitoneum which has slightly improved in the interval. There is also a sm all amount of fluid/ascites which is slightly progressed. Although indeterminate, this is likely seco ndary to the patient's peritoneal dialysis catheter. 2. No definite bowel wall thickening or obstruction. 3. Colonic diverticulosis. No evidence for acute diverticulitis. 4. Fluid-filled nondistended colon. This can be seen in the setting of a gastroenteritis/diarrheal il lness. 5. Bilateral nephrolithiasis. No ureteral stones. No hydronephrosis. 6. Cholelithiasis. No gallbladder wall thickening. 7. Additional findings as described above. ACT 112: Negative or not required by law. Electronically signed by: Jaswant Nino M.D. 11/19/2023 1:16 PM
[2023-11-19] MEDS: METOPROLOL TARTRATE 1 MG/ML VIAL IV PRN (14:11)
[2023-11-19] MEDS: SODIUM CHLORIDE 0.9% 1,000 ML IV SCH (15:21)
[2023-11-19] MEDS ORDERED: PIPERACILLIN/TAZOBACTAM 4.5 GM in DEXTROSE 5% MINI-B 100 ML IV SCH (16:00)
--- NOTE | 2023-11-19 16:56 | Hospitalist Progress Note ---
Date of Service November 19, 2023 Assessment & Plan (1) Diverticulitis: Plan: 83-year-old male with past medical history significant for type 2 diabetes, hypothyroidism, hyperlipidemia, hyperparathyroidism secondary to renal disease, cyst of pancreas, postoperative hypothyroidism, history of hypokalemia, end- stage renal disease on peritoneal dialysis, history of COPD, chronic diastolic CHF, left ventricular hypertrophy, hypertension, left bundle branch block, en largement of aortic root, pulmonary hypertension, persistent atrial fibrillation, GERD, iron deficiency anemia, panic disorder, anxiety disorder, history of thyroid cancer, history of prostate cancer, history of hyponatremia, who lives at home with his and ambulates with a walker was brought in because of abdominal pain. Patient saying that he is having abdominal pain for some time but last 2 days got worse. The pain is mainly located in the left lower side but sometimes the pain can happen at other parts of abdomen too. Patient denies nausea. No fevers. Had normal bowel movement. Denies blood in the stools. Doesn't make much urine. Denies chest pain or shortness of breath. No headache. No blurred vision. No runny nose or sore throat no cough. Currently resting comfortably and hemodynamically stable. Asking for pain medication. Daughter is in the room. Acute diverticulitis Possible UTI --CT scan:Small amount of fluid in the lower abdomen and pelvis. Free air foci may represent viscous perforation. Alternatively, free air could be secondary to manipulation of the peritoneal dialysis catheter. Diverticulosis. Inflammatory changes of the sigmoid colon, concerning for acute diverticulitis. Prominence of the bladder wall is nonspecific. Please correlate with urinalysis if concerned for cystitis. Cholelithiasis. Prostatomegaly. Calcifications of the prostate. -Blood culture negative to date -Urine culture: Noncontributory -- IV Zosyn transition to Rocephin, Flagyl per patient's preference>> agrees to switch back to Zosyn given no improvement Appreciate surgery, GI input Pain control Given not tolerating diet, made n.p.o. again Gentle IV fluids given end-stage renal disease Remains n.p.o. today Repeat CT abdomen showed findings suggestive of mild clinical improvement Will need colonoscopy in 6 to 8 weeks as outpatient End-stage renal disease on peritoneal dialysis Appreciate Nephrology Input Monitor volume status Hyperphosphatemia Noncompliant to phosphate binders due to intolerance Nephrology following Bleeding per rectum Likely due to hemorrhoids Eliquis on hold Monitor CBC GI following Hemoglobin stable Hyponatremia Chronic Sodium improved to 135 Monitor sodium levels Nephrology on board DM II HbA1c 9.3 hold p.o. meds Continue insulin while hospitalized Monitor BGs Chronic diastolic CHF on peritoneal dialysis monitor volume status Hold torsemide as n.p.o. currently Resume diuretics as able Hypothyroidism Normal TSH Continue levothyroxine A-fib RVR H/O Persistent atrial fibrillation Continue metoprolol last few days was not taking Eliquis because of questionable hemorrhoid bleed hold Eliquis for now IV Lopressor as needed COPD continue home inhalers Gout on allopurinol Hypertension on metoprolol succinate and terazosin Monitor BP Anxiety disorder on buspirone H/O Prostate cancer S/p prostate cryotherapy H/O Thyroid cancer S/P thyroidectomy DVT Px: Heparin SQ--held due to rectal bleed SCDs for now CODE STATUS Full code Admission and Anticipated Discharge Date Admission Date: November 16, 2023 Subjective Patient is seen and examined at bedside Reports persistent abdominal pain Had repeat CT abdomen today Was noted to have A-fib RVR on monitor No other complaints today Denies any nausea, vomiting, chest pain, dyspnea Review of Systems Review of Systems: All systems reviewed & are unremarkable except as noted in Subjective Physical Exam Physical Exam: Physical Exam: Vitals signs as noted above General Appearance:Moderately built and nourished, no apparent distress Head: normocephalic, Atraumatic Eyes: normal inspection, EOMI Neck: supple, Trachea midline Respiratory/Chest: Normal breath sounds, CTA, No accessory muscle use Cardiovascular: Irregularly irregular, No murmur, Tachycardia Abdomen/GI:Soft, LLQ tender, Bowel sounds present,+PD catheter Extremities/Musculoskeletal:normal inspection, Trace edema Neurologic/Psych:AAOX3, grossly no focal neurological deficits Skin: normal color, warm Results & Data Results & Data Vital Signs (Past 12 Hours) Vital Signs Temp Pulse Pulse Resp BP BP BP 11/19/23 16:21 36.9 C 106 H 18 110/69 11/19/23 15:34 102 H 11/19/23 14:36 36.8 C 103 H 18 110/78 11/19/23 14:36 103 H 110/78 11/19/23 14:11 117 H 128/76 11/19/23 10:45 37.2 C 97 H 18 116/69 11/19/23 08:11 36.7 C 91 H 18 11/19/23 08:00 11/19/23 07:20 11/19/23 07:18 36.9 C 95 H 106/69 11/19/23 07:13 102 H Pulse Ox Pulse Ox O2 Del Method O2 Del Method 11/19/23 16:21 11/19/23 15:34 11/19/23 14:36 95 Room Air 11/19/23 14:36 11/19/23 14:11 11/19/23 10:45 94 Room Air 11/19/23 08:11 11/19/23 08:00 96 Room Air 11/19/23 07:20 Room Air 11/19/23 07:18 96 Room Air 11/19/23 07:13 Laboratory Results Short CBC 11/19/23 Range/Units 06:23 WBC 6.39 (4.8-10.8) K/ul Hgb 10.5 L (14.0-18.0) g/dl Hct 31.3 L (42.0-52.0) % Plt Count 259 (130-400) K/uL BMP 11/19/23 06:23 Sodium 135 L Potassium 3.7 Chloride 96 L Carbon Dioxide 23 BUN 56 H Creatinine 6.85 H* Glucose 150 H Calcium 8.6
--- NOTE | 2023-11-19 17:05 | Electrocardiogram Report ---
Test Reason : Blood Pressure : / mmHG Vent. Rate : 107 BPM Atrial Rate : 202 BPM P-R Int : 000 ms QRS Dur : 126 ms QT Int : 346 ms P-R-T Axes : 000 -05 137 degrees QTc Int : 461 ms Poor data quality, interpretation may be adversely affected Atrial fibrillation with rapid ventricular response Left bundle branch block Abnormal ECG When compared with ECG of 16-NOV-2023 01:03, (unconfirmed) No significant change was found Confirmed by Honorio Benedict ([id number]) on 11/19/2023 5:05:15 PM Referred By: REFERRED SELF Confirmed By:Aristeo Benedict
--- NOTE | 2023-11-19 20:27 | Electrocardiogram Report ---
Test Reason : Blood Pressure : / mmHG Vent. Rate : 122 BPM Atrial Rate : 000 BPM P-R Int : 000 ms QRS Dur : 122 ms QT Int : 346 ms P-R-T Axes : 000 -44 104 degrees QTc Int : 493 ms Atrial fibrillation with rapid ventricular response Left axis deviation Left bundle branch block Abnormal ECG When compared with ECG of 24-AUG-2023 08:20, QRS axis Shifted left Nonspecific T wave abnormality no longer evident in Inferior leads Confirmed by Honorio Benedict ([id number]) on 11/19/2023 8:27:40 PM Referred By: REFERRED SELF Confirmed By:Aristeo Benedict
[2023-11-19] MEDS: PIPERACILLIN/TAZOBACTAM 4.5 GM in DEXTROSE 5% MINI-B 100 ML IV SCH (21:11)
[2023-11-19 23:12] LABS: Magnesium 2.1 mg/dl (1.7-2.4)
--- NOTE | 2023-11-19 23:26 | Communication Note ---
Date of Service: November 19, 2023 Patient with bouts of rapid A-fib. Refusing as needed IV Lopressor as per RN. Medication makes him anxious as per patient. Patient counseled at bedside regarding need to comply with medication recommendations. Patient educated regarding potential for unstable tachycardia resulting from medication noncompliance which might require cardioversion/CPR. Patient requesting for current Full Code status to be de-escalated to DNR.
[2023-11-20] MEDS: ALBUMIN 25% 12.5 GM/50 ML VIAL IV ONE (04:05)
[2023-11-20 06:30] LABS: Hematocrit (blood only) 29.9 % (42.0-52.0); Mean Corpuscular Hemoglobin 31.1 pg (25.0-34.0); Mean Corpuscular Hgb Conc 33.4 g/dL (32.0-36.0); Mean Corpuscular Volume 92.9 fL (80.0-100.0); Mean Platelet Volume 9.4 fL (9.4-12.4); Platelet Count 251 K/uL (130-400); RDW Coefficient of Variation 14.1 % (11.5-14.5); RDW Standard Deviation 48.7 fL (36.4-46.3); Red Blood Count 3.22 M/uL (4.70-6.10); White Blood Count 6.46 K/ul (4.8-10.8)
[2023-11-20 07:21] LABS: Calcium 8.5 mg/dl (8.6-10.3); Creatinine Clr Calc Pharmacy 8.5 ml/min; Est GFR (African American) 7.7 ml/min; Est GFR (Non-African American) 6.7 ml/min; Potassium 3.5 mmol/L (3.5-5.1)
[2023-11-20] MEDS: METOPROLOL SUCC 25MG EXT REL TAB PO SCH (08:39)
--- NOTE | 2023-11-20 08:44 | Dialysis Progress Note ---
Date of Service November 20, 2023 Assessment & Plan Admission and Anticipated Discharge Date Admission Date: November 16, 2023 Subjective Subjective Subjective Assessment & Plan (1) End-stage renal disease on peritoneal dialysis: 83-year-old male with ESRD on peritoneal dialysis. He normally does 3-4 exchange manually at home. He has extreme anxiety issue and does not like taking medications which means we never know what exactly is taking and how much dialysis he is he actually doing at home. appears to be slightly volume overloaded but still better than last time I saw him in the clinic. Renal labs appear as expected for ESRD. No evidence of major electrolyte problems. no abdominal pain and no issues reported with peritoneal dialysis at home. we should be able to do peritoneal dialysis tonight and will do with [facility] for 10 hours for exchange with all 2.5% solution. same Rx as last night. he is drinking fine so need of IV fluids given ESRD and h/o CHF. stop NS. (2) Diverticulitis: Based on imaging symptoms and specialists note it appears to be diverticulitis. however his symptoms are fairly minimal and at the time of my exam he had no symptoms. already on antibiotics. gen surg note reviewed. Maybe one more day inpt. S---had PD overnight through [facility]. No abd pain or any problems with PD. 1350 ml UF. No alarms or issues with PD No abd pain now. had bouts of Afibb ( not new) but he refused Iv Lopressor. he refuses and stops a lot of meds on his own because all meds him Anxious ROS---Abd pain and some nausea. Ongoing severe issue with Anxiety/Panic attacks. otherwise 12 Systems reviewed and negative Physical Exam Physical Exam: General- Not in acute distress. Anxious as always Head- atraumatic. oropharynx clear Neck- supple, no JVD. Lungs- clear to auscultation no wheezing or crackles. Heart- regular rhythm; no murmur, no gallop. Abdomen- normal bowel sounds, soft, mild diffuse tenderness. PD cath site --normal. Extremities- Trace edema, no erythema seen. Neuro- alert, oriented ; PERRL no facial palsy; no dysarthria; moves extremities. Results & Data Vital Signs (Past 12 Hours) Vital Signs Temp Pulse Pulse Resp BP BP Pulse Ox 11/20/23 08:10 36.7 C 110 H 18 11/20/23 07:49 36.7 C 110 H 18 111/64 95 11/20/23 07:08 92 H 11/20/23 02:13 36.6 C 94 H 18 96/64 L 95 11/19/23 23:15 89 118/76 11/19/23 22:48 11/19/23 21:44 36.7 C 91 H 18 90/67 L 94 O2 Del Method 11/20/23 08:10 11/20/23 07:49 Room Air 11/20/23 07:08 11/20/23 02:13 Room Air 11/19/23 23:15 11/19/23 22:48 Room Air 11/19/23 21:44 Room Air
[2023-11-20] MEDS ORDERED: METOPROLOL SUCC 25MG EXT REL TAB PO SCH (09:00)
--- NOTE | 2023-11-20 09:36 | Surgery Progress Note ---
Date of Service November 20, 2023 Assessment & Plan (1) Abdominal pain: Plan: Admitted with questionable diverticulitis and fluid filled colon. Yesterday's CT does not show an appreciable diverticulitis. The colon is less fluid filled and now contains significant gaseous distention at the sigmoid colon. He has remained afebrile, without leukocytosis since admission and this all seems to be less concerning for acute diverticulitis. There is no evidence for diverticulitis on his most recent CT, the admission CT read for acute diverticulitis is soft and produced more of a mixed picture due to the presence of the PD catheter. Currently his ongoing symptoms do not correlate with his labs or imaging for acute diverticulitis to be at the top of the differential. We will re-initiate clear liquids Obtain stool studies if he continues with loose stools Questioning whether or not this could be irritation from the PD catheter vs an enteritis. Patient states he was given a kit at home to use in case of potential PD catheter infection questionably. Will reach out to the dialysis team to see if they may be aware of such for better interpretation. Of note, Mr. David says he has never had the need to use the kit at home. Continue to provide analgesics at this time Follow up am labs Replete electrolytes as needed Spoke with Dr. West this am who's initial plan was to hold off on colonoscopy until he has completed a full antibiotic course for possible diverticulitis. Admission and Anticipated Discharge Date Admission Date: November 16, 2023 Subjective Patient states pain is much improved compared to yesterday although he continues with a constant pain that he describes to be somewhere deep between his back and abdomen. He has been NPO, states he continues to pass flatus and has not had a solid BM but states he is getting "squirts". He denies N/V, F/C o/n. O/N reports reveal the patient has requested to be DNR and is refusing his Metoprolol for the control of his heart rate for A-fib with RVR. Physical Exam Constitutional: average body habitus; not ill appearing, not disheveled, not in distress and not diaphoretic Respiratory: normal respiratory effort; no respiratory distress, no labored breathing and does not use accessory muscles Gastrointestinal (Abdomen): Inspection/Auscultation: abdomen not distended Percussion/Palpation: + abdomen tender (Minimal TTP mid to left lower quadrant) and abdomen soft; no guarding and abdomen not rigid PD catheter in place without purulent fluid Patient has difficulty localizing tenderness as there is radiation to his left lower back as well. Results & Data Vital Signs (Past 12 Hours) Vital Signs Temp Pulse Pulse Resp BP BP Pulse Ox 11/20/23 08:10 36.7 C 110 H 18 11/20/23 07:49 36.7 C 110 H 18 111/64 95 11/20/23 07:08 92 H 11/20/23 02:13 36.6 C 94 H 18 96/64 L 95 11/19/23 23:15 89 118/76 11/19/23 22:48 11/19/23 21:44 36.7 C 91 H 18 90/67 L 94 O2 Del Method 11/20/23 08:10 11/20/23 07:49 Room Air 11/20/23 07:08 11/20/23 02:13 Room Air 11/19/23 23:15 11/19/23 22:48 Room Air 11/19/23 21:44 Room Air Diagnostic Findings Repeat CT A/P 11/19/23 at 1053 IMPRESSION: 1. A small amount of pneumoperitoneum which has slightly improved in the interval. There is also a small amount of fluid/ascites which is slightly progressed. Although indeterminate, this is likely secondary to the patient's peritoneal dialysis catheter. 2. No definite bowel wall thickening or obstruction. 3. Colonic diverticulosis. No evidence for acute diverticulitis. 4. Fluid-filled nondistended colon. This can be seen in the setting of a gastroenteritis/diarrheal illness. 5. Bilateral nephrolithiasis. No ureteral stones. No hydronephrosis. 6. Cholelithiasis. No gallbladder wall thickening. 7. Additional findings as described above. I have independently reviewed images of both his admission CT and recent CT from yesterday Results Complete Blood Count Results: RBC 3.22 M/uL (4.70-6.10) L 11/20/23 WBC 6.46 K/ul (4.8-10.8) 11/20/23 Hgb 10.0 g/dl (14.0-18.0) L 11/20/23 Hct 29.9 % (42.0-52.0) L 11/20/23 Plt Count 251 K/uL (130-400) 11/20/23 PG Care Time/CCT Total # of Minutes Spent Total Time Spent with Patient: Total time spent is greater than 50% in coordination of care (as documented) at patient's floor/unit and/or counseling patient: [place] [address] SUB INP/OBS CARE 2/35MIN Patient Type Established Medical Decision Making Moderate Complexity Diagnoses Abdominal pain R10.84 Abdominal location: generalized (1) Abdominal pain Abdominal location: generalized Qualified Code(s): R10.84 - Generalized abdominal pain
--- NOTE | 2023-11-20 10:27 | Gastroenterology Progress Note ---
Date of Service November 20, 2023 Assessment & Plan (1) Diverticulitis: Plan: Although repeat CT was improved - would continue to treat and favor a more prolonged course (10-14 days combined IV + po) of antibiotics and would repeat a CT scan in about 2 months and if still improved can have elective colonoscopy at that point. Will need OP GI follow up. (2) Abdominal pain: Plan: Could still be from diverticulitis although CT scan appeared improved. Not sure if peritoneal catheter is causing any difficulty and externally does not seem abnormal or inflamed etc. Medicine team investigating. Admission and Anticipated Discharge Date Admission Date: November 16, 2023 Subjective Patient still c/o pain. Repeat CT improved. Flatus but no BM Physical Exam Constitutional: Afebrile BP soft but stable P slightly tachy Respiratory: Lungs: Clear Cardiovascular: Heart: Reg Gastrointestinal (Abdomen): Decreased BS but soft, nontender. Peritoneal catheter in place. Results & Data Results & Data Vital Signs (Past 12 Hours) Vital Signs Temp Pulse Pulse Resp BP BP Pulse Ox 11/20/23 08:10 36.7 C 110 H 18 11/20/23 08:00 11/20/23 07:49 36.7 C 110 H 18 111/64 95 11/20/23 07:08 92 H 11/20/23 02:13 36.6 C 94 H 18 96/64 L 95 11/19/23 23:15 89 118/76 11/19/23 22:48 Pulse Ox O2 Del Method O2 Del Method 11/20/23 08:10 11/20/23 08:00 95 Room Air 11/20/23 07:49 Room Air 11/20/23 07:08 11/20/23 02:13 Room Air 11/19/23 23:15 11/19/23 22:48 Room Air PG Care Time/CCT Total # of Minutes Spent Total Time Spent with Patient: Total time spent is greater than 50% in coordination of care (as documented) at patient's floor/unit and/or counseling patient: Coding Level of Care Code 72131 SUB INP/OBS CARE 06/03MIN Diagnoses Diverticulitis K57.92 Abdominal pain R10.84 Abdominal location: generalized (2) Abdominal pain Abdominal location: generalized Qualified Code(s): R10.84 - Generalized abdominal pain
--- NOTE | 2023-11-20 15:27 | Hospitalist Progress Note ---
Date of Service November 20, 2023 Assessment & Plan (1) Diverticulitis: Plan: 83-year-old male with past medical history significant for type 2 diabetes, hypothyroidism, hyperlipidemia, hyperparathyroidism secondary to renal disease, cyst of pancreas, postoperative hypothyroidism, history of hypokalemia, end- stage renal disease on peritoneal dialysis, history of COPD, chronic diastolic CHF, left ventricular hypertrophy, hypertension, left bundle branch block, en largement of aortic root, pulmonary hypertension, persistent atrial fibrillation, GERD, iron deficiency anemia, panic disorder, anxiety disorder, history of thyroid cancer, history of prostate cancer, history of hyponatremia, who lives at home with his and ambulates with a walker was brought in because of abdominal pain. Patient saying that he is having abdominal pain for some time but last 2 days got worse. The pain is mainly located in the left lower side but sometimes the pain can happen at other parts of abdomen too. Patient denies nausea. No fevers. Had normal bowel movement. Denies blood in the stools. Doesn't make much urine. Denies chest pain or shortness of breath. No headache. No blurred vision. No runny nose or sore throat no cough. Currently resting comfortably and hemodynamically stable. Asking for pain medication. Daughter is in the room. Acute diverticulitis Possible UTI --CT scan:Small amount of fluid in the lower abdomen and pelvis. Free air foci may represent viscous perforation. Alternatively, free air could be secondary to manipulation of the peritoneal dialysis catheter. Diverticulosis. Inflammatory changes of the sigmoid colon, concerning for acute diverticulitis. Prominence of the bladder wall is nonspecific. Please correlate with urinalysis if concerned for cystitis. Cholelithiasis. Prostatomegaly. Calcifications of the prostate. --Repeat CT abdomen showed findings suggestive of mild improvement -Blood culture negative to date -Urine culture: Noncontributory -- IV Zosyn transition to Rocephin, Flagyl per patient's preference>> agrees to switch back to Zosyn given no improvement Appreciate surgery, GI input Pain control Will need colonoscopy in 6 to 8 weeks as outpatient Started on clear liquid diet Will obtain stool studies if patient develops diarrhea End-stage renal disease on peritoneal dialysis Appreciate Nephrology Input Monitor volume status Hyperphosphatemia Noncompliant to phosphate binders due to intolerance Nephrology following Bleeding per rectum Likely due to hemorrhoids Eliquis on hold Monitor CBC GI following Hemoglobin stable Hyponatremia Chronic Sodium improved to 130s Monitor sodium levels Nephrology on board DM II HbA1c 9.3 hold p.o. meds Continue insulin while hospitalized Monitor BGs Chronic diastolic CHF on peritoneal dialysis monitor volume status Hold torsemide as n.p.o. currently Resume diuretics as able Hypothyroidism Normal TSH Continue levothyroxine A-fib RVR H/O Persistent atrial fibrillation Continue metoprolol last few days was not taking Eliquis because of questionable hemorrhoid bleed hold Eliquis for now IV Lopressor as needed Metoprolol dose increased to 12.5 mg twice daily COPD continue home inhalers Gout on allopurinol Hypertension on metoprolol succinate and terazosin Monitor BP Anxiety disorder on buspirone H/O Prostate cancer S/p prostate cryotherapy H/O Thyroid cancer S/P thyroidectomy DVT Px: Heparin SQ--held due to rectal bleed SCDs for now CODE STATUS Full code Admission and Anticipated Discharge Date Admission Date: November 16, 2023 Subjective Patient is seen and examined at bedside Had an episode of A-fib RVR overnight and this morning Abdominal pain slightly better today Denies any nausea, vomiting, chest pain, dyspnea Review of Systems Review of Systems: All systems reviewed & are unremarkable except as noted in Subjective Physical Exam Physical Exam: Physical Exam: Vitals signs as noted above General Appearance:Moderately built and nourished, no apparent distress Head: normocephalic, Atraumatic Eyes: normal inspection, EOMI Neck: supple, Trachea midline Respiratory/Chest: Normal breath sounds, CTA, No accessory muscle use Cardiovascular: Irregularly irregular, No murmur, Tachycardia Abdomen/GI:Soft, LLQ tender, Bowel sounds present,+PD catheter Extremities/Musculoskeletal:normal inspection, Trace edema Neurologic/Psych:AAOX3, grossly no focal neurological deficits Skin: normal color, warm Results & Data Results & Data Vital Signs (Past 12 Hours) Vital Signs Temp Pulse Pulse Resp BP BP Pulse Ox 11/20/23 15:16 36.5 C 59 L 16 92/53 L 100 11/20/23 14:45 92 H 11/20/23 11:29 37.1 C 96 H 16 117/74 95 11/20/23 08:40 11/20/23 08:10 36.7 C 110 H 18 11/20/23 08:00 11/20/23 07:49 36.7 C 110 H 18 111/64 95 11/20/23 07:08 92 H Pulse Ox O2 Del Method O2 Del Method 11/20/23 15:16 Room Air 11/20/23 14:45 11/20/23 11:29 Room Air 11/20/23 08:40 Room Air 11/20/23 08:10 11/20/23 08:00 95 Room Air 11/20/23 07:49 Room Air 11/20/23 07:08 Laboratory Results Short CBC 11/20/23 Range/Units 05:55 WBC 6.46 (4.8-10.8) K/ul Hgb 10.0 L (14.0-18.0) g/dl Hct 29.9 L (42.0-52.0) % Plt Count 251 (130-400) K/uL BMP 11/20/23 05:55 Sodium 134 L Potassium 3.5 Chloride 95 L Carbon Dioxide 25 BUN 49 H Creatinine 6.98 H* Glucose 142 H Calcium 8.5 L
[2023-11-20] MEDS: DIGOXIN 125 MCG in SYRINGE 9.5 ML IV STA (21:37)
[2023-11-21 06:49] LABS: BUN Creatinine Ratio 6.3 (10-20); Calcium 8.3 mg/dl (8.6-10.3); Creatinine Clr Calc Pharmacy 8.6 ml/min; Est GFR (African American) 7.9 ml/min; Est GFR (Non-African American) 6.8 ml/min; Potassium 3.1 mmol/L (3.5-5.1)
[2023-11-21] MEDS: hydrOXYzine HCl 10 MG TAB PO PRN (08:24)
--- NOTE | 2023-11-21 09:11 | Dialysis Progress Note ---
Date of Service November 21, 2023 Assessment & Plan Admission and Anticipated Discharge Date Admission Date: November 16, 2023 Subjective Assessment & Plan (1) End-stage renal disease on peritoneal dialysis: 83-year-old male with ESRD on peritoneal dialysis. He normally does 3-4 exchange manually at home. He has extreme anxiety issue and does not like taking medications which means we never know what exactly is taking and how much dialysis he is he actually doing at home. appears to be slightly volume overloaded but still better than last time I saw him in the clinic. Renal labs appear as expected for ESRD. No evidence of major electrolyte problems. no abdominal pain and no issues reported with peritoneal dialysis at home. we should be able to do peritoneal dialysis tonight and will do with [facility] for 10 hours for exchange with all 2.5% solution. same Rx as last night. he is drinking fine so need of IV fluids given ESRD and h/o CHF. stop NS. No abd pain now but then says he has abd pain at times. repeat CT is better. he does not like pain at all--He Does like taking pain meds. He feels he should be in hospital for a while. previous admission was similar I dont feel we have to keep doing workup for his ? abd pain. (2) Diverticulitis: Based on imaging symptoms and specialists note it appears to be diverticulitis. however his symptoms are fairly minimal and at the time of my exam he had no symptoms. already on antibiotics. gen surg note reviewed. Maybe one more day inpt. S---had PD overnight through [facility]. No abd pain or any problems with PD. 1350 ml UF. No alarms or issues with PD No abd pain now but then says he has abd pain at times. repeat CT is better. he does not like pain at all--Does like taking pain meds Ongoing severe issue with Anxiety/Panic attacks. otherwise 12 Systems reviewed and negative Physical Exam Physical Exam: General- Not in acute distress. Anxious as always Head- atraumatic. oropharynx clear Neck- supple, no JVD. Lungs- clear to auscultation no wheezing or crackles. Heart- regular rhythm; no murmur, no gallop. Abdomen- normal bowel sounds, soft, mild diffuse tenderness. PD cath site --normal. Extremities- Trace edema, no erythema seen. Neuro- alert, oriented ; PERRL no facial palsy; no dysarthria; moves extremitie s. Results & Data Vital Signs (Past 12 Hours) Vital Signs Temp Pulse Pulse Resp BP Pulse Ox O2 Del Method 11/21/23 07:52 36.8 C 70 16 11/21/23 07:49 36.8 C 70 16 125/81 93 Room Air 11/21/23 02:53 36.6 C 85 18 116/72 97 Room Air 11/20/23 22:56 36.5 C 98 H 18 114/73 98 Room Air 11/20/23 22:00 86
--- NOTE | 2023-11-21 09:45 | Gastroenterology Progress Note ---
Date of Service November 21, 2023 Assessment & Plan (1) Diverticulitis: Plan: Diverticulitis - as previously - continue treatment 10-14 days po + IV and then colonoscopy about a month or so after completing antibiotics. Soft diet until after OP colonoscopy. Will need OP GI f/u upon discharge. IP GI Service will sign off. Admission and Anticipated Discharge Date Admission Date: November 16, 2023 Subjective Patient feels improved. States his pain is essentially gone. Physical Exam Constitutional: Afebrile VSS Respiratory: Lungs: Clear anteriorly Cardiovascular: Heart: RRR Gastrointestinal (Abdomen): Decreased BS but soft, nontender Results & Data Results & Data Vital Signs (Past 12 Hours) Vital Signs Temp Pulse Pulse Resp BP Pulse Ox O2 Del Method 11/21/23 07:52 36.8 C 70 16 11/21/23 07:49 36.8 C 70 16 125/81 93 Room Air 11/21/23 02:53 36.6 C 85 18 116/72 97 Room Air 11/20/23 22:56 36.5 C 98 H 18 114/73 98 Room Air 11/20/23 22:00 86 PG Care Time/CCT Total # of Minutes Spent Total Time Spent with Patient: Total time spent is greater than 50% in coordination of care (as documented) at patient's floor/unit and/or counseling patient: Coding Level of Care Code 24366 SUB INP/OBS CARE 06/03MIN Diagnoses Diverticulitis K57.92
--- NOTE | 2023-11-21 10:21 | Surgery Progress Note ---
Date of Service November 21, 2023 Assessment & Plan (1) Abdominal pain: Plan: Admitted with questionable diverticulitis and fluid filled colon. Yesterday's CT does not show an appreciable diverticulitis. He has remained afebrile, without leukocytosis since admission and this all seems to be less concerning for a worsening or evolving acute diverticulitis. I do notice he has been continuing to receive IV pain medication with mostly back complaints and then an abdominal pain complaint this am of 9. Mr. David admits to feeling improved today and has been able to tolerate a full liquid diet with bowel function. He has continued to c/o pains of his back/flank and abdomen. This am he mentions pains in other areas as well and questions if this could all be his neuropathy. Further eval and management of this per medicine. I am not sure how he will be ready for discharge receiving the current pain medications. May try to convert him to minimal oral? May advance to a low fiber diet and discharge per medicine on oral antibiotics to complete course as recommended by GI. Admission and Anticipated Discharge Date Admission Date: November 16, 2023 Subjective I have seen Mr. David this am. Today he states he feels better without abdominal pain. He also states that he just received a "pain shot" a little bit ago. He states he may be going home today. He is tolerating full liquids that were initiated by surgery yesterday am. He denies N/V or increased pain with food. He now suspects his symptoms may be the result of neuropathy. Physical Exam Constitutional: not ill appearing, not in distress and not diaphoretic Respiratory: normal respiratory effort; no respiratory distress, no labored breathing and does not use accessory muscles Gastrointestinal (Abdomen): Percussion/Palpation: abdomen soft; abdomen nontender and no guarding Results & Data Vital Signs (Past 12 Hours) Vital Signs Temp Pulse Resp BP Pulse Ox O2 Del Method 11/21/23 07:52 36.8 C 70 16 11/21/23 07:49 36.8 C 70 16 125/81 93 Room Air 11/21/23 02:53 36.6 C 85 18 116/72 97 Room Air 11/20/23 22:56 36.5 C 98 H 18 114/73 98 Room Air PG Care Time/CCT Total # of Minutes Spent Total Time Spent with Patient: Total time spent is greater than 50% in coordination of care (as documented) at patient's floor/unit and/or counseling patient: Coding Level of Care Code 06312 SUB INP/OBS CARE 06/03MIN Diagnoses Abdominal pain R10.84 Abdominal location: generalized (1) Abdominal pain Abdominal location: generalized Qualified Code(s): R10.84 - Generalized abdominal pain
--- NOTE | 2023-11-21 12:42 | Hospitalist Progress Note ---
Date of Service November 21, 2023 Assessment & Plan (1) Diverticulitis: Plan: 83-year-old male with past medical history significant for type 2 diabetes, hypothyroidism, hyperlipidemia, hyperparathyroidism secondary to renal disease, cyst of pancreas, postoperative hypothyroidism, history of hypokalemia, end- stage renal disease on peritoneal dialysis, history of COPD, chronic diastolic CHF, left ventricular hypertrophy, hypertension, left bundle branch block, en largement of aortic root, pulmonary hypertension, persistent atrial fibrillation, GERD, iron deficiency anemia, panic disorder, anxiety disorder, history of thyroid cancer, history of prostate cancer, history of hyponatremia, who lives at home with his and ambulates with a walker was brought in because of abdominal pain. Patient saying that he is having abdominal pain for some time but last 2 days got worse. The pain is mainly located in the left lower side but sometimes the pain can happen at other parts of abdomen too. Patient denies nausea. No fevers. Had normal bowel movement. Denies blood in the stools. Doesn't make much urine. Denies chest pain or shortness of breath. No headache. No blurred vision. No runny nose or sore throat no cough. Currently resting comfortably and hemodynamically stable. Asking for pain medication. Daughter is in the room. Acute diverticulitis Possible UTI --CT scan:Small amount of fluid in the lower abdomen and pelvis. Free air foci may represent viscous perforation. Alternatively, free air could be secondary to manipulation of the peritoneal dialysis catheter. Diverticulosis. Inflammatory changes of the sigmoid colon, concerning for acute diverticulitis. Prominence of the bladder wall is nonspecific. Please correlate with urinalysis if concerned for cystitis. Cholelithiasis. Prostatomegaly. Calcifications of the prostate. --Repeat CT abdomen showed findings suggestive of mild improvement -Blood culture negative to date -Urine culture: Noncontributory -- IV Zosyn transition to Rocephin, Flagyl per patient's preference>> agrees to switch back to Zosyn given no improvement Appreciate surgery, GI input Pain control Will need colonoscopy in 6 to 8 weeks as outpatient Advance to low fiber diet as clinically improved Transition to p.o. antibiotics on discharge Needs follow-up with GI on discharge End-stage renal disease on peritoneal dialysis Appreciate Nephrology Input Monitor volume status Hyperphosphatemia Noncompliant to phosphate binders due to intolerance Nephrology following Bleeding per rectum Likely due to hemorrhoids Monitor CBC GI following Hemoglobin stable Resume Eliquis as able Hyponatremia Chronic Sodium improved to 130s Monitor sodium levels Nephrology on board DM II HbA1c 9.3 hold p.o. meds Continue insulin while hospitalized Monitor BGs Chronic diastolic CHF on peritoneal dialysis monitor volume status Hold torsemide as n.p.o. currently Resume diuretics as able Hypothyroidism Normal TSH Continue levothyroxine A-fib RVR H/O Persistent atrial fibrillation Continue metoprolol last few days was not taking Eliquis because of questionable hemorrhoid bleed hold Eliquis for now IV Lopressor as needed Metoprolol dose increased to 12.5 mg twice daily COPD continue home inhalers Gout on allopurinol Hypertension on metoprolol succinate and terazosin Monitor BP Anxiety disorder on buspirone H/O Prostate cancer S/p prostate cryotherapy H/O Thyroid cancer S/P thyroidectomy DVT Px: Heparin SQ--held due to rectal bleed SCDs for now CODE STATUS Full code Disposition Home Admission and Anticipated Discharge Date Admission Date: November 16, 2023 Subjective Patient is seen and examined at bedside Patient states feeling better today Abdominal pain much improved Tolerating diet No tenderness on exam today Prefers to be discharged home today Discussed with nephrology today Denies any nausea, vomiting, chest pain, dyspnea Review of Systems Review of Systems: All systems reviewed & are unremarkable except as noted in Subjective Physical Exam Physical Exam: Physical Exam: Vitals signs as noted above General Appearance:Moderately built and nourished, no apparent distress Head: normocephalic, Atraumatic Eyes: normal inspection, EOMI Neck: supple, Trachea midline Respiratory/Chest: Normal breath sounds, CTA, No accessory muscle use Cardiovascular: Irregularly irregular, No murmur, Tachycardia Abdomen/GI:Soft, non tender, Bowel sounds present,+PD catheter Extremities/Musculoskeletal:normal inspection, Trace edema Neurologic/Psych:AAOX3, grossly no focal neurological deficits Skin: normal color, warm Results & Data Results & Data Vital Signs (Past 12 Hours) Vital Signs Temp Pulse Resp BP Pulse Ox O2 Del Method 11/21/23 12:24 110/71 11/21/23 11:56 36.6 C 88 16 83/59 L 94 Room Air 11/21/23 07:52 36.8 C 70 16 11/21/23 07:49 36.8 C 70 16 125/81 93 Room Air 11/21/23 02:53 36.6 C 85 18 116/72 97 Room Air Laboratory Results BMP 11/21/23 05:52 Sodium 136 Potassium 3.1 L Chloride 96 L Carbon Dioxide 24 BUN 43 H Creatinine 6.84 H* Glucose 182 H Calcium 8.3 L
[2023-11-21] MEDS: POTASSIUM CHLORIDE CRTAB 20 MEQ TABCR PO ONE (12:52)
--- NOTE | 2023-11-21 12:56 | Discharge Summary ---
Date of Service November 21, 2023 Admission HPI Per Admitting Provider 83-year-old male with past medical history significant for type 2 diabetes, hypothyroidism, hyperlipidemia, hyperparathyroidism secondary to renal disease, cyst of pancreas, postoperative hypothyroidism, history of hypokalemia, end- stage renal disease on peritoneal dialysis, history of COPD, chronic diastolic CHF, left ventricular hypertrophy, hypertension, left bundle branch block, enlargement of aortic root, pulmonary hypertension, persistent atrial fibrillation, GERD, iron deficiency anemia, panic disorder, anxiety disorder, history of thyroid cancer, history of prostate cancer, history of hyponatremia, who lives at home with his and ambulates with a walker was brought in because of abdominal pain. Patient saying that he is having abdominal pain for some time but last 2 days got worse. The pain is mainly located in the left lower side but sometimes the pain can happen at other parts of abdomen too. Patient denies nausea. No fevers. Had normal bowel movement. Denies blood in the stools. Doesn't make much urine. Denies chest pain or shortness of breath. No headache. No blurred vision. No runny nose or sore throat no cough. Currently resting comfortably and hemodynamically stable. Asking for pain medication. Daughter is in the room. Past medical history. As mentioned above Past surgical history. Prostate biopsy. Carpal tunnel surgery. Dental surgery. EGD. Back surgery. Heart cath. Thyroidectomy. Laparoscopic insertion of intraperitoneal cannula. Lumbar spine fusion surgery. Prostate cryoablation. Removal of thymus gland. Inguinal hernia repair and right side. Revision of ulnar nerve at elbow. Social history. . Quit smoking 1978. Smoked 0.8 packs a day for 17 years. No alcohol use. No drug use. Family history. Father had gout. Mother had diabetes. History of breast cancer. Diabetes. Daughter has diabetes. Admission Exam Per Admitting Provider General- Not in acute distress Head- atraumatic Eyes- PERRL. ENT- oropharynx clear Neck- supple, no JVD. Lungs- clear to auscultation no wheezing or crackles. Heart- regular rhythm; no murmur, no gallop. Abdomen- normal bowel sounds, soft, mild diffuse tenderness. PD cath site no erythema or drainage seen. Extremities- no pretibial edema, no erythema seen. Neuro- alert, oriented ; PERRL no facial palsy; no dysarthria; moves extremities. Principal Diagnosis Acute diverticulitis End-stage renal disease on peritoneal dialysis A-fib RVR Hyperphosphatemia Discharge Data Allergies Allergy/AdvReac Type Severity Reaction Status Date / Time clonidine Allergy Unknown allergic Unverified 11/16/23 02:23 to all but 1 brand carvedilol Allergy Hives Verified 11/16/23 02:23 losartan Allergy Unknown Verified 11/16/23 02:23 ANJELICA Inhibitors AdvReac Intermediate INTOLERANCE Verified 11/16/23 02:23 PER MD ORDER allopurinol AdvReac Intermediate severe abd Verified 11/16/23 02:23 pain Beta-Blockers AdvReac Intermediate INTOLERANCE Verified 11/16/23 02:23 (Beta-Adrenergic Bloc PER DR ARELLANO doxazosin AdvReac Intermediate INTOLERANCE Verified 11/16/23 02:[address] ARELLANO [id number]-[id number] Reductase AdvReac Intermediate INTOLERANCE Verified 11/16/23 02:23 Inhibitor PER [Iyxucuc-Bne-Fxv Reductase ADAN Inhibitor] citalopram AdvReac Unknown Verified 11/16/23 02:23 hydralazine AdvReac diarrhea, Verified 11/16/23 02:23 testicular pain hydrochlorothiazide AdvReac hyponatremi Verified 11/16/23 02:23 a lisinopril AdvReac Cough Verified 11/16/23 02:23 simvastatin [From Zocor] AdvReac Muscle Pain Verified 11/16/23 02:23 sitagliptin [From Januvia] AdvReac restlessnes Verified 11/16/23 02:23 s Consultations 11/16/23 02:45 Consult General Surgery Stat ED Decision to Admit Stat 11/16/23 08:25 Consult Gastroenterology Routine Consult Nephrology Routine Procedures Performed Laboratory Results WBC 6.46 K/ul (4.8-10.8) 11/20/23 05:55 RBC 3.22 M/uL (4.70-6.10) L 11/20/23 05:55 Hgb 10.0 g/dl (14.0-18.0) L 11/20/23 05:55 Hct 29.9 % (42.0-52.0) L 11/20/23 05:55 MCV 92.9 fL (80.0-100.0) 11/20/23 05:55 MCH 31.1 pg (25.0-34.0) 11/20/23 05:55 MCHC 33.4 g/dL (32.0-36.0) 11/20/23 05:55 RDW Std Deviation 48.7 fL (36.4-46.3) H 11/20/23 05:55 RDW Coeff of Pooja 14.1 % (11.5-14.5) 11/20/23 05:55 Plt Count 251 K/uL (130-400) 11/20/23 05:55 MPV 9.4 fL (9.4-12.4) 11/20/23 05:55 Immature Gran % (Auto) 0.2 % 11/18/23 03:06 Neut % (Auto) 67.3 % 11/18/23 03:06 Lymph % (Auto) 15.8 % 11/18/23 03:06 Edwards % (Auto) 12.3 % 11/18/23 03:06 Eos % (Auto) 3.8 % 11/18/23 03:06 Baso % (Auto) 0.6 % 11/18/23 03:06 Neut # (Auto) 4.43 K/uL (1.40-6.50) 11/18/23 03:06 Lymph # (Auto) 1.04 K/uL (1.20-3.40) L 11/18/23 03:06 Edwards # (Auto) 0.81 K/uL (0.11-0.59) H 11/18/23 03:06 Eos # (Auto) 0.25 K/uL (0.00-0.50) 11/18/23 03:06 Baso # (Auto) 0.04 K/uL (0.00-0.20) 11/18/23 03:06 Immature Gran # (Auto) 0.01 K/uL (0.01-0.20) 11/18/23 03:06 PT 10.9 Seconds (9.0-12.0) 11/16/23 00:55 INR 1.0 (0.9-1.1) 11/16/23 00:55 Sodium 136 mmol/L (136-145) 11/21/23 05:52 Potassium 3.1 mmol/L (3.5-5.1) L 11/21/23 05:52 Chloride 96 mmol/L (98-107) L 11/21/23 05:52 Carbon Dioxide 24 mmol/L (21-32) 11/21/23 05:52 Anion Gap 16 (3-11) H 11/21/23 05:52 BUN 43 mg/dl (6-23) H 11/21/23 05:52 Creatinine 6.84 mg/dl (0.6-1.4) H* 11/21/23 05:52 Est Cr Clr Drug Dosing 8.6 ml/min 11/21/23 05:52 Est GFR ( Amer) 7.9 ml/min 11/21/23 05:52 Est GFR (Non-Af Amer) 6.8 ml/min 11/21/23 05:52 BUN/Creatinine Ratio 6.3 (10-20) L 11/21/23 05:52 Glucose 182 mg/dl (70-99(Fasting)) H 11/21/23 05:52 POC Glucose 213 mg/dl (70-99) H 11/21/23 12:08 Estimat Average Glucose 220 mg/dl 11/16/23 09:11 Hemoglobin A1c 9.3 % (4.5-5.6) H 11/16/23 09:11 Lactate 1.6 mmol/L (0.4-2.0) 11/16/23 01:07 Calcium 8.3 mg/dl (8.6-10.3) L 11/21/23 05:52 Phosphorus 8.9 mg/dl (2.5-4.9) H 11/19/23 06:23 Magnesium 2.0 mg/dl (1.7-2.4) 11/20/23 05:55 Total Bilirubin 0.3 mg/dl (0.2-1.0) 11/16/23 00:55 AST 18 U/L (13-39) 11/16/23 00:55 ALT 23 U/L (7-52) 11/16/23 00:55 Alkaline Phosphatase 115 U/L (34-104) H 11/16/23 00:55 Total Protein 7.5 gm/dl (6.0-8.3) 11/16/23 00:55 Albumin 3.6 gm/dl (3.4-5.0) 11/16/23 00:55 Globulin 3.9 gm/dl (2.5-4.0) 11/16/23 00:55 Albumin/Globulin Ratio 0.9 (0.9-2) 11/16/23 00:55 Lipase 154 U/L (11-82) H 11/16/23 09:11 Procalcitonin 0.31 ng/ml (0-0.5) 11/16/23 00:59 TSH 4.095 uIu/ml (0.300-4.500) 11/16/23 09:11 Urine Color Yellow 11/16/23 06:55 Urine Appearance Cloudy (Clear) A 11/16/23 06:55 Urine pH 5.5 (4.5-7.5) 11/16/23 06:55 Ur Specific [place] 1.015 (1.000-1.030) 11/16/23 06:55 Urine Protein 2+ (Negative) H 11/16/23 06:55 Urine Glucose (UA) 1+ (Negative) H 11/16/23 06:55 Urine Ketones Negative (Negative) 11/16/23 06:55 Urine Blood Trace (Negative) H 11/16/23 06:55 Urine Nitrite Negative (Negative) 11/16/23 06:55 Urine Bilirubin Negative (Negative) 11/16/23 06:55 Urine Urobilinogen Negative (Negative) 11/16/23 06:55 Ur Leukocyte Esterase 1+ (Negative) H 11/16/23 06:55 Urine WBC (Auto) 21-50 /hpf (0-5) H 11/16/23 06:55 Urine RBC (Auto) 0-2 /hpf (0-2) 11/16/23 06:55 U Hyaline Cast (Auto) 6-10 /lpf (0-2) H 11/16/23 06:55 U Epithel Cells (Auto) 0-2 /hpf (0-2) 11/16/23 06:55 Urine Bacteria (Auto) None Seen (None Seen) 11/16/23 06:55 Nasal Screen MRSA (PCR) Negative (Negative) 11/16/23 04:25 Stl C. diff Tox B Gene Negative Cdiff Gene (Neg) 11/18/23 02:41 Blood Type B Positive 11/18/23 03:06 Antibody Screen NEGATIVE 11/18/23 03:06 Impressions Abdomen/Pelvis CT 11/19/23 10:[address] WITHOUT CONTRAST CT DOSE: 1733.51 mGy.cm HISTORY: abdominal/back pain TECHNIQUE: Multiaxial CT images of the abdomen and pelvis were performed without contrast. A dose lowering technique was utilized adhering to the principles of ALARA. COMPARISON STUDY: Abdomen and pelvis CT 11/16/2023. FINDINGS: Bilateral lower lobe densities are again noted and favor subsegmental atelectasis. This is similar to the prior study. A superimposed pneumonia would be difficult to exclude. There is a small amount of pneumoperitoneum again noted most pronounced within the right upper quadrant. This has slightly improved in the interval. Elevated right hemidiaphragm again noted. L2-S1 posterior decompression and fusion with pedicle screws and rods. No acute fractures. The heart remains mildly enlarged. A left lower quadrant peritoneal dialysis catheter is again noted and terminates in the right lower quadrant. Small amount of fluid/ascites within the abdomen has slightly progressed. This is most pronounced within the perihepatic space. Stable small hypodense lesions within the right hepatic lobe. These are incompletely characterized on this noncontrast study but favor cysts. Multiple bilateral renal hypodense lesions are also not significantly changed. There are few punctate bilateral renal calculi. No ureteral calculi. No hydronephrosis. Stable 2.9 cm peripherally calcified cystic lesion at the pancreatic tail. A few punctate gallstones are suggested. No gallbladder wall thickening. Normal spleen and adrenal glands. Normal caliber abdominal aorta with moderate calcified plaque. No retroperitoneal or pelvic lymphadenopathy. The prostate gland remains enlarged. Mild bladder wall thickening likely due to chronic outlet obstruction. Suboptimal evaluation for bowel pathology due to the lack of intravenous and oral contrast. However, there is no definite bowel wall thickening or obstruction. Normal appendix. Extensive colonic diverticulosis. No evidence for acute diverticulitis at this time. Fluid-filled large bowel can be seen in the setting of a diarrheal illness/gastroenteritis. IMPRESSION: 1. A small amount of pneumoperitoneum which has slightly improved in the interval. There is also a small amount of fluid/ascites which is slightly progressed. Although indeterminate, this is likely secondary to the patient's peritoneal dialysis catheter. 2. No definite bowel wall thickening or obstruction. 3. Colonic diverticulosis. No evidence for acute diverticulitis. 4. Fluid-filled nondistended colon. This can be seen in the setting of a gastroenteritis/diarrheal illness. 5. Bilateral nephrolithiasis. No ureteral stones. No hydronephrosis. 6. Cholelithiasis. No gallbladder wall thickening. 7. Additional findings as described above. ACT 112: Negative or not required by law. Electronically signed by: Jaswant Nino M.D. 11/19/2023 1:16 PM Ordered Studies 11/16/23 00:57 CT abd pelvis wo con Stat 11/19/23 10:53 CT abd pelvis wo con Routine Hospital Course (1) Diverticulitis: 83-year-old male with past medical history significant for type 2 diabetes, hypothyroidism, hyperlipidemia, hyperparathyroidism secondary to renal disease, cyst of pancreas, postoperative hypothyroidism, history of hypokalemia, end- stage renal disease on peritoneal dialysis, history of COPD, chronic diastolic CHF, left ventricular hypertrophy, hypertension, left bundle branch block, e nlargement of aortic root, pulmonary hypertension, persistent atrial fibrillation, GERD, iron deficiency anemia, panic disorder, anxiety disorder, history of thyroid cancer, history of prostate cancer, history of hyponatremia, who lives at home with his and ambulates with a walker was brought in because of abdominal pain. Patient saying that he is having abdominal pain for some time but last 2 days got worse. The pain is mainly located in the left lower side but sometimes the pain can happen at other parts of abdomen too. Patient denies nausea. No fevers. Had normal bowel movement. Denies blood in the stools. Doesn't make much urine. Denies chest pain or shortness of breath. No headache. No blurred vision. No runny nose or sore throat no cough. Currently resting comfortably and hemodynamically stable. Asking for pain medication. Daughter is in the room. Acute diverticulitis Possible UTI --CT scan:Small amount of fluid in the lower abdomen and pelvis. Free air foci may represent viscous perforation. Alternatively, free air could be secondary to manipulation of the peritoneal dialysis catheter. Diverticulosis. Inflammatory changes of the sigmoid colon, concerning for acute diverticulitis. Prominence of the bladder wall is nonspecific. Please correlate with urinalysis if concerned for cystitis. Cholelithiasis. Prostatomegaly. Calcifications of the prostate. --Repeat CT abdomen showed findings suggestive of mild improvement -Blood culture negative to date -Urine culture: Noncontributory -- IV Zosyn transition to Rocephin, Flagyl per patient's preference>> agrees to switch back to Zosyn given no improvement Appreciate surgery, GI input Pain control Will need colonoscopy in 6 to 8 weeks as outpatient Advance to low fiber diet as clinically improved Transition to p.o. antibiotics on discharge Needs follow-up with GI on discharge End-stage renal disease on peritoneal dialysis Appreciate Nephrology Input Monitor volume status Hyperphosphatemia Noncompliant to phosphate binders due to intolerance Nephrology following Bleeding per rectum Likely due to hemorrhoids Monitor CBC GI following Hemoglobin stable Resume Eliquis as able Hyponatremia Chronic Sodium improved to 130s Monitor sodium levels Nephrology on board DM II HbA1c 9.3 hold p.o. meds Continue insulin while hospitalized Monitor BGs Chronic diastolic CHF on peritoneal dialysis monitor volume status Hold torsemide as n.p.o. currently Resume diuretics as able Hypothyroidism Normal TSH Continue levothyroxine A-fib RVR H/O Persistent atrial fibrillation Continue metoprolol last few days was not taking Eliquis because of questionable hemorrhoid bleed hold Eliquis for now IV Lopressor as needed Metoprolol dose increased to 12.5 mg twice daily COPD continue home inhalers Gout on allopurinol Hypertension on metoprolol succinate and terazosin Monitor BP Anxiety disorder on buspirone H/O Prostate cancer S/p prostate cryotherapy H/O Thyroid cancer S/P thyroidectomy DVT Px: Heparin SQ--held due to rectal bleed SCDs for now CODE STATUS Full code Disposition Home Total Time Total Time Spent Total Time Spent (In Minutes): 59 minutes Discharge Plan Discharge Items Patient Disposition: Home - Self-Care Reason For Visit: diverticulitis, pancreatits esrd Discharge Diagnosis: Acute diverticulitis End-stage renal disease on peritoneal dialysis Activity: Per Instructions section Exercise/Sports: Wait until after follow-up appointment Non-emergency contact: Primary Care Provider, Purchasing Assistant and Purchase Request Editor Call non-emergency contact if: you have any medication questions, your symptoms worsen, your pain is concerning for you and you have a fever Follow-up/Referrals: Pramod Damian MD [Primary Care Provider] - Diet: Dialysis Renal and Low Fiber Addtl Attending Provider Instructions: Follow-up with your primary care physician in 1 week Follow-up with your loss prevention auditor Dr. West for outpatient colonoscopy as advised -- Complete the antibiotic course Augmentin as prescribed. --Your metoprolol dose is increased to 12.5 mg twice a day for better heart rate control. Discuss with your physician for further recommendations. Seek immediate medical attention if your symptoms reoccur or worsen Please take all medications as instructed on discharge list below. Please call if you have any questions or problems. You can reach a [facility] hospitalist on duty at [facility] 24 hours a day by calling [phone] Pending Studies at Discharge: No Stand-Alone Forms: My [facility], Smoking Cessation Medications and DC Order Prescriptions: New Advanced Probiotic 625 mg (10 billion cell) Capsule 1 cap PO DAILY Qty: 10 0RF amoxicillin-pot clavulanate [Augmentin] 500-125 mg tablet 1 tab PO BID Qty: 10 0RF Continued allopurinol 100 mg Tablet 100 mg PO QAM levothyroxine 150 mcg Tablet 150 mcg PO DAILYBB torsemide 100 mg tablet 100 mg PO QAM hydrocodone-acetaminophen 5-325 mg tablet 1 tab PO Q6 PRN (Reason: Pain) terazosin 1 mg capsule 1 mg PO HS glipizide 10 mg tablet 10 mg PO AMHS Eliquis 2.5 mg tablet 2.5 mg PO AMHS Rx Instructions: has not taken for days buspirone 5 mg tablet 5 mg PO Q4 PRN (Reason: Anxiety) hydroxyzine HCl 25 mg tablet 25 mg PO UD Jessie-Joycelyn 0.8 mg tablet 1 tab PO DAILY lactulose 10 gram/15 mL solution 15 ml PO BID PRN (Reason: severe constipation) potassium chloride 10 mEq tablet,ER particles/crystals 20 meq PO .HOLD Rx Instructions: Patient states takes 2 tab in am when not on hold. albuterol sulfate 90 mcg/actuation HFA aerosol inhaler 2 puff INHALATION Q4 PRN (Reason: Wheezing) hydrocortisone [Anusol-HC] 2.5 % Cream With Perineal Applicator 1 applic [place] BID PRN (Reason: Hemorrhoids) ondansetron 4 mg tablet,disintegrating 4 mg translingual Q8 PRN (Reason: Nausea) cholecalciferol (vitamin D3) [Vitamin D3] 25 mcg (1,000 unit) Tablet 50 mcg PO QAM Changed metoprolol succinate 25 mg tablet extended release 24 hr 12.5 mg PO BID Qty: 30 0RF Discharge Orders: Discharge Order (Routine); Ordered 11/21/23 Ordered By: [place]/Other Patient Handouts: Managing Type 2 Diabetes Admission Data Admit Date/Time: 11/16/23 03:57 Attending Provider: [place] Admit Provider: Michael Briceño Primary Care Provider: Pramod Damian Other Providers: Fernando Lozoya; Michael Briceño; Cristian Bynum; Arleen Hui
== END 2023-11-21 15:25 | disposition home or self-care (01) | DRG 391 ==
LOC: ED 00:36 → 2N 03:57 → SUATTDRO 03:57 → 2N 07:50

== ENCOUNTER 2023-12-02 02:57 | Inpatient (IN) ==
[2023-12-02] MEDS: CEFEPIME 2,000 MG/20 ML VIAL IV STA (03:18)
[2023-12-02] MEDS: SODIUM CHLORIDE 0.9% 500 ML IV SCH (03:18)
--- NOTE | 2023-12-02 03:21 | Emergency Department Note ---
Impression & Plan Hypotension, Weakness, Anemia, Elevated troponin, Dialysis patient ED Provider Note NAME: BJORN ROSARIO AGE: 83 SEX: M : 1940 ARRIVES VIA: Ambulance INFORMANT: [Patient][ems] ED PROVIDER(S): [Silvano Badillo MD] CHIEF COMPLAINT: Weakness HISTORY OF PRESENT ILLNESS: The patient is an 83-year-old male who is on chronic peritoneal dialysis. He was discharged from our hospital around 10 days ago after being in for diverticulitis. Patient states that he presents tonight because of weakness. He could not stand. He has been weak for at least 24 hours. As per EMS, his blood pressure was in the 60s systolic when they first did their assessment. It improved to the 80s with a small amount of IV fluid. He is currently receiving a 500 cc fluid bag, about 300 cc have been administered already. The patient denies any chest pain or shortness of breath. No fever. He has no abdominal pain. He has had no vomiting, he has some chronic diarrhea. There was no syncope, the patient states that he felt so weak that he needed to call the ambulance. PMHx/PSHx/Social Hx: See Below PHYSICAL EXAM: GENERAL: Patient is in no acute distress. HEENT: No acute trauma, normocephalic atraumatic, mucous membranes moist, no nasal congestion. NECK: No stridor, no adenopathy, no meningismus, trachea is midline. LUNGS: Crackles bilaterally, no respiratory distress, no wheezing. HEART: No obvious murmur, irregular rhythm, mildly tachycardic. ABDOMEN: Soft, nontender, no peritonitis. EXTREMITIES: No cyanosis, full range of motion of all the joints without pain or difficulty. NEUROLOGIC: Awake and alert but somewhat confused at times, no acute motor or sensory deficits, no focal weakness. SKIN: No jaundice, no diaphoresis. DIFFERENTIAL DIAGNOSIS: Bacteremia or sepsis, dehydration, electrolyte imbalance, anemia, VT, among others. EMERGENCY DEPARTMENT PROCEDURES: MEDICAL DECISION MAKING: There is no leukocytosis. The patient is anemic, he carries a history of anemia but his hemoglobin today may be below his typical baseline. There was a normal platelet count. No coagulopathy. Sodium was somewhat low but this is a chronic issue for the patient. The creatinine is elevated consistent with his history of needing peritoneal dialysis. He has a subtle anion gap, this appears to be a chronic issue for him. Lactic acid level is not elevated making sepsis less likely. Phosphorus was quite high, the patient carries a history of a high phosphorus value. No concerning liver enzyme elevation. The patient appeared to be in euthyroid state. ECG showed atrial fibrillation, this is a chronic finding for the patient. Cardiac enzyme testing x 1 is slightly elevated. This elevation could be secondary to cardiac injury or just mismatch with his history of renal disease. Looking at previous testing, the patient has had elevated troponin values. Chest x-ray does not show heart failure or pneumonia. On exam, the patient was hypotensive. He was slightly tachycardic. He was not in distress and had no complaints of chest pain, abdominal pain or dyspnea. Patient was given a total of 1.5 L of IV saline, this did improve his blood pressure. He was given IV cefepime as empiric antibiotic coverage. For now, I think the patient is improving. He may just be dehydrated given his improvement with IV fluids. With the low blood pressure reported, with his complaints of weakness and the inability to stand, I do think a hospital stay is warranted. We will need to be careful not to over load him with fluids with his dialysis history. I spoke with the patient and case management, the on-call hospitalist was consulted. Prior/Outside records/notes reviewed: Today's EMS notes describing his presentation and transport to this hospital. ECG per my interpretation: Indication was weakness. The ECG shows atrial fibrillation with a PVC. The rate is 111. There is a left bundle branch block. There is some nonspecific ST change. There is no acute ST elevation. QTc is 437. Compared to an ECG from 19 November 2023, a PVC is now present. Continuous Cardiac Monitoring per my interpretation: An order was placed for continuous cardiac monitoring. The monitor shows a rate of 109 with atrial fibrillation. Imaging/x-ray results per my interpretation: Chest x-ray shows some chronic change, I see no pneumonia or CHF. Chronic Medical/Social conditions affecting care: Advanced age, chronic peritoneal dialysis. Recent hospitalization. Care/Management discussed with: Case management, the on-call hospitalist. Level of care consideration(s): After review of the information above and other included data: --I believe the patient requires escalation of care to admission Critical Care Note: I have personally spent 42 minutes of critical care time in the direct management of this patient. This includes bedside care, interpretation of diagnostic studies, and testing, discussion with consultants, patient, and family members, and other required patient management activities. This 42 minutes is in excess of all separately billable procedures. DISPOSITION: Admission Past Med/Surg History Problem List (Updated 12/02/23 @ 04:08 by Silvano Badillo MD) Dialysis patient (Acute) Elevated troponin (Acute) Anemia (Acute) Weakness (Acute) Hypotension (Acute) Pneumoperitoneum (Acute) End-stage renal disease on peritoneal dialysis (Acute) Acute hyponatremia (Acute) Abdominal pain (Acute) Diverticulitis (Acute) Diverticulitis BRBPR (bright red blood per rectum) Permanent atrial fibrillation Elevated troponin (Acute) Atrial flutter with rapid ventricular response (Acute) Anticholinergic syndrome (Acute) Baclofen overdose (Acute) Altered mental status Foot drop, 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, instrumented Adjustment disorder with depressed mood Acute right flank pain (Acute) RUQ abdominal pain (Acute) Renal failure (Acute) Anemia (Acute) Gall stones (Acute) Cholelithiasis Kidney lesion Pancreatic cyst ANGY (iron deficiency anemia) ESRD (end stage renal disease) Peritoneal dialysis catheter in situ Chronic diastolic CHF (congestive heart failure) Atrial fibrillation Hypothyroidism DM type 2 (diabetes mellitus, type 2) Acute right flank pain (Acute) Elevated lipase (Acute) Hyponatremia (Acute) Hypertension (Chronic) Medical History Gout Pulmonary hypertension LBBB (left bundle branch block) COPD (chronic obstructive pulmonary disease) Spinal stenosis Family History Other Diabetes Hypertension Social History Smoking Status: Former smoker Cigarettes Per Day: 10; Second Hand Exposure: No; Do You Dip or Chew Tobacco: No; Hx Alcohol Use: No Hx Substance Use: No Preferred Language: Swedish Communication Ability: Effective Emblem Fuser Tender Required: No Beliefs That Will Affect Care: None marital status: Current Living Situation: Spouse Feels Safe at Home: Yes Assistive Devices: Walker Allergies Allergies Allergy/AdvReac Type Severity Reaction Status Date / Time carvedilol Allergy Intermediate Hives Verified 12/02/23 03:08 losartan Allergy Unknown Unknown Verified 12/02/23 03:08 ANJELICA Inhibitors AdvReac Intermediate INTOLERANCE Verified 12/02/23 03:08 PER ORDER allopurinol AdvReac Intermediate severe abd Verified 12/02/23 03:08 pain Beta-Blockers AdvReac Intermediate INTOLERANCE Verified 12/02/23 03:08 (Beta-Adrenergic Bloc PER DR ARELLANO clonidine AdvReac Intermediate allergic Verified 12/02/23 03:08 to all but 1 brand doxazosin AdvReac Intermediate INTOLERANCE Verified 12/02/23 03:[address] ARELLANO hydralazine AdvReac Intermediate diarrhea, Verified 12/02/23 03:08 testicular pain hydrochlorothiazide AdvReac Intermediate hyponatremi Verified 12/02/23 03:08 a lisinopril AdvReac Intermediate Cough Verified 12/02/23 03:08 simvastatin [From Zocor] AdvReac Intermediate Muscle Pain Verified 12/02/23 03:08 sitagliptin [From Januvia] AdvReac Intermediate restlessnes Verified 12/02/23 03:08 s Bvivtmj-PLS-TdW Reductase AdvReac Intermediate INTOLERANCE Verified 12/02/23 03:08 Inhibitor PER [Pypdkjl-Oka-Irr Reductase ADAN--MYALGIAS Inhibitor] citalopram AdvReac Unknown Unknown Verified 12/02/23 03:08 Home Meds Home Medications Medication Instructions Recorded Confirmed allopurinol 100 mg tablet 100 mg PO QAM 02/25/18 12/02/23 levothyroxine 150 mcg tablet 150 mcg PO DAILYBB 08/12/20 12/02/23 torsemide 100 mg tablet 100 mg PO QAM 08/29/22 12/02/23 albuterol sulfate 90 mcg/actuation 2 puff inhalation Q4 PRN Wheezing 08/22/23 12/02/23 aerosol inhaler apixaban 2.5 mg tablet (Eliquis) 2.5 mg PO AMHS 08/22/23 12/02/23 buspirone 5 mg tablet 5 mg PO Q4 PRN Anxiety 08/22/23 12/02/23 glipizide 10 mg tablet 10 mg PO AMHS 08/22/23 12/02/23 hydrocodone 5 mg-acetaminophen 325 1 tab PO Q6 PRN Pain 08/22/23 12/02/23 mg tablet lactulose 10 gram/15 mL oral 15 ml PO BID PRN severe 08/22/23 12/02/23 solution constipation potassium chloride 10 mEq 20 meq PO QAM 08/22/23 12/02/23 tablet,extended release(part/cryst) terazosin 1 mg capsule 1 mg PO HS 08/22/23 12/02/23 vitamin B complex-vitamin C-folic 1 tab PO DAILY 08/22/23 12/02/23 acid 0.8 mg tablet (Jessie-Joycelyn) cholecalciferol (vitamin D3) 25 50 mcg PO QAM 11/16/23 12/02/23 mcg (1,000 unit) tablet (Vitamin D3) hydrocortisone 2.5 % topical cream [address] BID PRN Hemorrhoids 11/16/23 12/02/23 with perineal applicator (Anusol-HC) ondansetron 4 mg disintegrating 4 mg translingual Q8 PRN Nausea 11/16/23 12/02/23 tablet metoprolol succinate 25 mg 25 mg PO QAM 12/02/23 12/02/23 tablet,extended release 24 hr vitamin B complex 1 tab PO DAILY 12/02/23 12/02/23 Results & Data (ED) Vital Signs Vital Signs - 24 hr 12/02/23 03:03 12/02/23 03:03 12/02/23 03:12 Temperature 37.3 C Temperature Source Oral Pulse Rate 109 H 113 H Respiratory Rate 23 Blood Pressure 84/52 L Blood Pressure Mean 62 Pulse Oximetry 93 94 Oxygen Delivery Method Room Air Room Air Sepsis Recent Fever Within 48 Hours No Sepsis New/Unexplained Change in Mental Status No Sepsis Action Taken by Nursing No Action Required Home Medications Current Medication List: was personally reviewed by me Laboratory Data Attestation: I reviewed the patient's lab results. 12/02/23 03:05 12/02/23 03:05 Lab Results 12/02/23 12/02/23 Range/Units 03:05 03:19 WBC 10.52 (4.8-10.8) K/ul RBC 3.05 L (4.70-6.10) M/uL Hgb 9.6 L (14.0-18.0) g/dl Hct 28.4 L (42.0-52.0) % MCV 93.1 (80.0-100.0) fL MCH 31.5 (25.0-34.0) pg MCHC 33.8 (32.0-36.0) g/dL RDW Std Deviation 49.8 H (36.4-46.3) fL RDW Coeff of Pooja 15.1 H (11.5-14.5) % Plt Count 282 (130-400) K/uL MPV 9.7 (9.4-12.4) fL Immature Gran % (Auto) 0.4 % Neut % (Auto) 78.2 % Lymph % (Auto) 9.1 % Gentry % (Auto) 10.7 % Eos % (Auto) 1.2 % Baso % (Auto) 0.4 % Neut # (Auto) 8.22 H (1.40-6.50) K/uL Lymph # (Auto) 0.96 L (1.20-3.40) K/uL Gentry # (Auto) 1.13 H (0.11-0.59) K/uL Eos # (Auto) 0.13 (0.00-0.50) K/uL Baso # (Auto) 0.04 (0.00-0.20) K/uL Immature Gran # (Auto) 0.04 (0.01-0.20) K/uL PT 11.4 (9.0-12.0) Seconds INR 1.1 (0.9-1.1) APTT 27 (21-31) Seconds PTT Ratio 1.0 Sodium 130 L (136-145) mmol/L Potassium 3.9 (3.5-5.1) mmol/L Chloride 93 L (98-107) mmol/L Carbon Dioxide 21 (21-32) mmol/L Anion Gap 16 H (3-11) BUN 57 H (6-23) mg/dl Creatinine 8.89 H* (0.6-1.4) mg/dl Est Cr Clr Drug Dosing 6.0 ml/min Est GFR ( Amer) 5.8 ml/min Est GFR (Non-Af Amer) 5.0 ml/min BUN/Creatinine Ratio 6.4 L (10-20) Glucose 144 H (70-99(Fasting)) mg/dl Lactate 1.6 (0.4-2.0) mmol/L Calcium 8.7 (8.6-10.3) mg/dl Phosphorus 8.2 H (2.5-4.9) mg/dl Magnesium 1.7 (1.7-2.4) mg/dl Total Bilirubin 0.4 (0.2-1.0) mg/dl AST 16 (13-39) U/L ALT 18 (7-52) U/L Alkaline Phosphatase 109 H (34-104) U/L Troponin I High Sens 74.9 H* (0-20) pg/ml Total Protein 7.0 (6.0-8.3) gm/dl Albumin 3.2 L (3.4-5.0) gm/dl Globulin 3.8 (2.5-4.0) gm/dl Albumin/Globulin Ratio 0.8 L (0.9-2) TSH 1.574 (0.300-4.500) uIu/ml Administered Medications Sodium Chloride (Nss) 500 mls @ 999 mls/hr IV .Q31M ONE Stop: 12/02/23 04:32 Last Admin: 12/02/23 04:06 Dose: 999 mls/hr Documented By: ANTONIO Discontinued Medications Sodium Chloride (Nss) 500 mls @ 999 mls/hr IV .Q31M LILI Stop: 12/02/23 03:45 Last Infusion: 12/02/23 03:51 Dose: Infused Documented By: Admin: 12/02/23 03:18 Dose: 999 mls/hr Documented By: ANTONIO Cefepime HCl (Maxipime) 2,000 mg in 20 mls @ 5 mls/min IV NOW STA; Protocol Stop: 12/02/23 03:14 Last Admin: 12/02/23 03:18 Dose: 5 mls/min Documented By: ANTONIO Discharge Plan Visit Data Chief Complaint: Weakness Stated Complaint: WEAKNESS, HYPOTENSION ED Provider: Silvano Badillo Discharge Problem: Hypotension, Weakness, Anemia, Elevated troponin, Dialysis patient Patient Disposition: Admitted As Inpatient Condition: Serious Forms Stand Alone Forms: My Interactive TKO Prescriptions Prescriptions: No Action allopurinol 100 mg Tablet 100 mg PO QAM levothyroxine 150 mcg Tablet 150 mcg PO DAILYBB torsemide 100 mg tablet 100 mg PO QAM hydrocodone-acetaminophen 5-325 mg tablet 1 tab PO Q6 PRN (Reason: Pain) terazosin 1 mg capsule 1 mg PO HS glipizide 10 mg tablet 10 mg PO AMHS Eliquis 2.5 mg tablet 2.5 mg PO AMHS Rx Instructions: has not taken for days buspirone 5 mg tablet 5 mg PO Q4 PRN (Reason: Anxiety) Jessie-Joycelyn 0.8 mg tablet 1 tab PO DAILY lactulose 10 gram/15 mL solution 15 ml PO BID PRN (Reason: severe constipation) potassium chloride 10 mEq tablet,ER particles/crystals 20 meq PO QAM albuterol sulfate 90 mcg/actuation HFA aerosol inhaler 2 puff INHALATION Q4 PRN (Reason: Wheezing) hydrocortisone [Anusol-HC] 2.5 % Cream With Perineal Applicator [address] BID PRN (Reason: Hemorrhoids) ondansetron 4 mg tablet,disintegrating 4 mg translingual Q8 PRN (Reason: Nausea) cholecalciferol (vitamin D3) [Vitamin D3] 25 mcg (1,000 unit) Tablet 50 mcg PO QAM vitamin B complex Tablet 1 tab PO DAILY metoprolol succinate 25 mg tablet extended release 24 hr 25 mg PO QAM Referrals Referrals: Pramod Damian MD [Primary Care Provider] - Discharge Problem: Hypotension Qualifiers: Hypotension type: unspecified hypotension type Qualified Code(s): I95.9 - Hypotension, unspecified Anemia Qualifiers: Anemia type: unspecified type Qualified Code(s): D64.9 - Anemia, unspecified
[2023-12-02 03:37] LABS: Basophils # (auto) 0.04 K/uL (0.00-0.20); Basophils % (auto) 0.4 %; Eosinophils # (auto) 0.13 K/uL (0.00-0.50); Eosinophils % (auto) 1.2 %; Hematocrit (blood only) 28.4 % (42.0-52.0); Hemoglobin 9.6 g/dl (14.0-18.0); Immature Granulocytes # (auto) 0.04 K/uL (0.01-0.20); Immature Granulocytes % (auto) 0.4 %; Lymphocytes # (auto) 0.96 K/uL (1.20-3.40); Lymphocytes % (auto) 9.1 %; Mean Corpuscular Hemoglobin 31.5 pg (25.0-34.0); Mean Corpuscular Hgb Conc 33.8 g/dL (32.0-36.0); Mean Corpuscular Volume 93.1 fL (80.0-100.0); Mean Platelet Volume 9.7 fL (9.4-12.4); Monocytes # (auto) 1.13 K/uL (0.11-0.59); Monocytes % (auto) 10.7 %; Neutrophils # (auto) 8.22 K/uL (1.40-6.50); Neutrophils % (auto) 78.2 %; Platelet Count 282 K/uL (130-400); RDW Coefficient of Variation 15.1 % (11.5-14.5); RDW Standard Deviation 49.8 fL (36.4-46.3); Red Blood Count 3.05 M/uL (4.70-6.10); White Blood Count 10.52 K/ul (4.8-10.8)
[2023-12-02 03:53] LABS: Albumin Globulin Ratio 0.8 (0.9-2); Albumin Level 3.2 gm/dl (3.4-5.0); BUN Creatinine Ratio 6.4 (10-20); Bilirubin,Total 0.4 mg/dl (0.2-1.0); Calcium 8.7 mg/dl (8.6-10.3); Est GFR (African American) 5.8 ml/min; Globulin 3.8 gm/dl (2.5-4.0); Magnesium 1.7 mg/dl (1.7-2.4); Phosphorus 8.2 mg/dl (2.5-4.9); Potassium 3.9 mmol/L (3.5-5.1); Troponin I High Sensitivity 74.9 pg/ml (0-20)
[2023-12-02 03:58] LABS: INR 1.1 (0.9-1.1); Partial Thromboplastin Time 27 Seconds (21-31); Prothrombin Time 11.4 Seconds (9.0-12.0)
[2023-12-02 04:01] LABS: Thyroid Stimulating Hormone 1.574 uIu/ml (0.300-4.500)
[2023-12-02] MEDS: SODIUM CHLORIDE 0.9% 500 ML IV ONE ×2 (04:06→07:48)
[2023-12-02] MEDS: MAGNESIUM SULFATE / D5W 1 GM/100 ML BAG IV STA (04:27)
--- NOTE | 2023-12-02 04:49 | History & Physical Report ---
Date of Service December 02, 2023 Assessment & Plan (1) Hypotension: Plan: Multifactorial: ? LGIB from hemorrhoidal bleed, history Eliquis Rx for A-fib Rapid A-fib ? Possible autonomic neuropathy, history of poorly controlled DM2 on oral medications, hemoglobin A1c of 9.3 this month Troponin elevation secondary to illness Acute on chronic hyponatremia secondary to illness Abdominal pain in the setting of NOAC rx chronic diastolic heart failure (EF 55 to 59% TTE 2022), equivocal volume status, mild congestion on CXR valvular heart disease (mild AR/TR) chronic LBBB aortic root enlargement as per records COPD, patient currently without pulmonary complaints hx ESRD on PD thyroid cancer status post surgery postsurgical hypothyroidism, euthyroid as of today's TSH prostate cancer/BPH as per records anxiety disorder, at baseline past tobacco abuse medical noncompliance as per records Possible deconditioning Admit to PCU Hold Eliquis for now, follow H&H, transfuse PRBC if hemoglobin less than 8 and or for symptomatic anemia (hx PVD) Digoxin 1 dose now for rapid A-fib given hypotension Initiate midodrine Hold terazosin for now until BP stable Follow troponin, TTE for progression CT abdomen pelvis Re: Abdominal pain Check UA Nephrology consult Re: Dialysis management ISS BG goal 1 10-1 40, carb count coverage PT OT eval once medically stable DVT prophylaxis. SCDs Re: GI bleed DNR Total critical care time was 45 minutes. Text document was generated using [employer] voice recognition software. It may contain grammatical or spelling errors. Kindly contact undersigned for clarification of any documentation item in question. Addendum: Serum procalcitonin noted to be markedly elevated CSJudy for possible intra-abdominal sepsis for now Follow CT abdomen pelvis result History of Present Illness Chief Complaint: Weakness Primary Care Provider: Pramod Damian MD History obtained from patient and records. Medical history significant for chronic diastolic heart failure (EF 55 to 59% TTE 2022), valvular heart disease (mild AR/TR), chronic LBBB, A-fib on Eliquis, aortic root enlargement as per records, COPD, ESRD on PD, chronic hyponatremia, DM 2 on oral medications, thyroid cancer status post surgery, postsurgical hypothyroidism, prostate cancer, BPH, chronic anemia (baseline hemoglobin 10- 11), anxiety disorder, past tobacco abuse, medical noncompliance as per records. Recent confinement 2 weeks ago for acute diverticulitis improved with medical management. Patient seen on follow-up visit at PCP's office 2 days ago. Patient has felt terrible since being in the hospital as per note. Hemorrhoids bleeding from time to time from Eliquis. Increasing weakness noted at home yesterday afternoon. Patient denies headache, chest pain, SOB. Achy lower abdominal pain with chronic diarrhea. SBP noted to be 60s upon EMS arrival at home. Patient brought to ER for evaluation. 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 Allergies Allergy/AdvReac Type Severity Reaction Status Date / Time carvedilol Allergy Intermediate Hives Verified 12/02/23 03:08 losartan Allergy Unknown Unknown Verified 12/02/23 03:08 ANJELICA Inhibitors AdvReac Intermediate INTOLERANCE Verified 12/02/23 03:08 PER ORDER allopurinol AdvReac Intermediate severe abd Verified 12/02/23 03:08 pain Beta-Blockers AdvReac Intermediate INTOLERANCE Verified 12/02/23 03:08 (Beta-Adrenergic Bloc PER DR ARELLANO clonidine AdvReac Intermediate allergic Verified 12/02/23 03:08 to all but 1 brand doxazosin AdvReac Intermediate INTOLERANCE Verified 12/02/23 03:[address] ARELLANO hydralazine AdvReac Intermediate diarrhea, Verified 12/02/23 03:08 testicular pain hydrochlorothiazide AdvReac Intermediate hyponatremi Verified 12/02/23 03:08 a lisinopril AdvReac Intermediate Cough Verified 12/02/23 03:08 simvastatin [From Zocor] AdvReac Intermediate Muscle Pain Verified 12/02/23 03:08 sitagliptin [From Januvia] AdvReac Intermediate restlessnes Verified 12/02/23 0 3:08 s Ukxhaes-PXE-RvA Reductase AdvReac Intermediate INTOLERANCE Verified 12/02/23 03:08 Inhibitor PER [Aomqekb-Izx-Ola Reductase ADAN--MYALGIAS Inhibitor] citalopram AdvReac Unknown Unknown Verified 12/02/23 03:08 Home Medications Medication Instructions Recorded Confirmed Type allopurinol 100 mg tablet 100 mg PO QAM 02/25/18 12/02/23 History levothyroxine 150 mcg tablet 150 mcg PO DAILYBB 08/12/20 12/02/23 History torsemide 100 mg tablet 100 mg PO QAM 08/29/22 12/02/23 History albuterol sulfate 90 mcg/actuation 2 puff inhalation Q4 PRN Wheezing 08/22/23 12/02/23 History aerosol inhaler apixaban 2.5 mg tablet (Eliquis) 2.5 mg PO AMHS 08/22/23 12/02/23 History buspirone 5 mg tablet 5 mg PO Q4 PRN Anxiety 08/22/23 12/02/23 History glipizide 10 mg tablet 10 mg PO AMHS 08/22/23 12/02/23 History hydrocodone 5 mg-acetaminophen 325 1 tab PO Q6 PRN Pain 08/22/23 12/02/23 History mg tablet lactulose 10 gram/15 mL oral 15 ml PO BID PRN severe 08/22/23 12/02/23 History solution constipation potassium chloride 10 mEq 20 meq PO QAM 08/22/23 12/02/23 History tablet,extended release(part/cryst) terazosin 1 mg capsule 1 mg PO HS 08/22/23 12/02/23 History vitamin B complex-vitamin C-folic 1 tab PO DAILY 08/22/23 12/02/23 History acid 0.8 mg tablet (Jessie-Joycelyn) cholecalciferol (vitamin D3) 25 50 mcg PO QAM 11/16/23 12/02/23 History mcg (1,000 unit) tablet (Vitamin D3) hydrocortisone 2.5 % topical cream 1 applic RI BID PRN Hemorrhoids 11/16/23 12/02/23 History with perineal applicator (Anusol-HC) ondansetron 4 mg disintegrating 4 mg translingual Q8 PRN Nausea 11/16/23 12/02/23 History tablet metoprolol succinate 25 mg 25 mg PO QAM 12/02/23 12/02/23 History tablet,extended release 24 hr vitamin B complex 1 tab PO DAILY 12/02/23 12/02/23 History Past Med/Surg History Problem List (Updated 12/02/23 @ 04:08 by Silvano Badillo MD) Dialysis patient (Acute) Elevated troponin (Acute) Anemia (Acute) Weakness (Acute) Hypotension (Acute) Pneumoperitoneum (Acute) End-stage renal disease on peritoneal dialysis (Acute) Acute hyponatremia (Acute) Abdominal pain (Acute) Diverticulitis (Acute) Diverticulitis BRBPR (bright red blood per rectum) Permanent atrial fibrillation Elevated troponin (Acute) Atrial flutter with rapid ventricular response (Acute) Anticholinergic syndrome (Acute) Baclofen overdose (Acute) Altered mental status Foot drop, 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, instrumented Adjustment disorder with depressed mood Acute right flank pain (Acute) RUQ abdominal pain (Acute) Renal failure (Acute) Anemia (Acute) Gall stones (Acute) Cholelithiasis Kidney lesion Pancreatic cyst ANGY (iron deficiency anemia) ESRD (end stage renal disease) Peritoneal dialysis catheter in situ Chronic diastolic CHF (congestive heart failure) Atrial fibrillation Hypothyroidism DM type 2 (diabetes mellitus, type 2) Acute right flank pain (Acute) Elevated lipase (Acute) Hyponatremia (Acute) Hypertension (Chronic) Medical History Gout Pulmonary hypertension LBBB (left bundle branch block) COPD (chronic obstructive pulmonary disease) Spinal stenosis Family History Other Diabetes Hypertension Social History Smoking Status: Former smoker Tobacco Type: Cigarettes Cigarettes Per Day: 10; Smoking End Date: 35 yrs ago; Second Hand Exposure: No; Do You Dip or Chew Tobacco: No; Tobacco Cessation Education Requested by Patient: No Hx Alcohol Use: No Hx Substance Use: No Preferred Language: Czech Communication Ability: Effective Livestock Showman Required: No Beliefs That Will Affect Care: None marital status: Current Living Situation: Spouse Other Information That Helps Us Care for You: No Feels Safe at Home: Yes Safety Concerns: Feels Safe At This Time Assistive Devices: Cane, Denture - Upper, Denture - Lower and Walker Review of Systems Review of Systems: As per HPI, all other systems reviewed and negative Physical Exam Physical Exam: GENERAL: Comfortable, eating a sandwich, no respiratory distress SKIN: Pallor,, warm HEENT: Pale palpebral conjunctivae, no ptosis, dry buccal mucosa NECK : Supple, no tenderness CHEST : CTA, no tenderness HEART : Irregular, no obvious murmurs ABDOMEN: Some distention, minimal hypogastric tenderness EXTREMITIES : No LE swelling/tenderness, no other conspicuous deformities noted NEUROLOGIC : Coherent, no facial asymmetry, no other gross focality Results & Data Results & Data Vital Signs (Past 12 Hours) Vital Signs Temp Pulse Pulse Resp BP BP Pulse Ox 12/02/23 04:00 112 H 19 93/62 L 92 12/02/23 03:12 94 12/02/23 03:03 113 H 12/02/23 03:03 37.3 C 109 H 23 84/52 L 93 O2 Del Method 12/02/23 04:00 Room Air 12/02/23 03:12 Room Air 12/02/23 03:03 12/02/23 03:03 Room Air Laboratory Results Laboratory Results WBC 10.52 K/ul (4.8-10.8) 12/02/23 03:05 RBC 3.05 M/uL (4.70-6.10) L 12/02/23 03:05 Hgb 9.6 g/dl (14.0-18.0) L 12/02/23 03:05 Hct 28.4 % (42.0-52.0) L 12/02/23 03:05 MCV 93.1 fL (80.0-100.0) 12/02/23 03:05 MCH 31.5 pg (25.0-34.0) 12/02/23 03:05 MCHC 33.8 g/dL (32.0-36.0) 12/02/23 03:05 RDW Std Deviation 49.8 fL (36.4-46.3) H 12/02/23 03:05 RDW Coeff of Pooja 15.1 % (11.5-14.5) H 12/02/23 03:05 Plt Count 282 K/uL (130-400) 12/02/23 03:05 MPV 9.7 fL (9.4-12.4) 12/02/23 03:05 Immature Gran % (Auto) 0.4 % 12/02/23 03:05 Neut % (Auto) 78.2 % 12/02/23 03:05 Lymph % (Auto) 9.1 % 12/02/23 03:05 Rankin % (Auto) 10.7 % 12/02/23 03:05 Eos % (Auto) 1.2 % 12/02/23 03:05 Baso % (Auto) 0.4 % 12/02/23 03:05 Neut # (Auto) 8.22 K/uL (1.40-6.50) H 12/02/23 03:05 Lymph # (Auto) 0.96 K/uL (1.20-3.40) L 12/02/23 03:05 Rankin # (Auto) 1.13 K/uL (0.11-0.59) H 12/02/23 03:05 Eos # (Auto) 0.13 K/uL (0.00-0.50) 12/02/23 03:05 Baso # (Auto) 0.04 K/uL (0.00-0.20) 12/02/23 03:05 Immature Gran # (Auto) 0.04 K/uL (0.01-0.20) 12/02/23 03:05 PT 11.4 Seconds (9.0-12.0) 12/02/23 03:05 INR 1.1 (0.9-1.1) 12/02/23 03:05 APTT 27 Seconds (21-31) 12/02/23 03:05 PTT Ratio 1.0 12/02/23 03:05 Sodium 130 mmol/L (136-145) L 12/02/23 03:05 Potassium 3.9 mmol/L (3.5-5.1) 12/02/23 03:05 Chloride 93 mmol/L (98-107) L 12/02/23 03:05 Carbon Dioxide 21 mmol/L (21-32) 12/02/23 03:05 Anion Gap 16 (3-11) H 12/02/23 03:05 BUN 57 mg/dl (6-23) H 12/02/23 03:05 Creatinine 8.89 mg/dl (0.6-1.4) H* 12/02/23 03:05 Est Cr Clr Drug Dosing 6.0 ml/min 12/02/23 03:05 Est GFR ( Amer) 5.8 ml/min 12/02/23 03:05 Est GFR (Non-Af Amer) 5.0 ml/min 12/02/23 03:05 BUN/Creatinine Ratio 6.4 (10-20) L 12/02/23 03:05 Glucose 144 mg/dl (70-99(Fasting)) H 12/02/23 03:05 Lactate 1.6 mmol/L (0.4-2.0) 12/02/23 03:19 Calcium 8.7 mg/dl (8.6-10.3) 12/02/23 03:05 Phosphorus 8.2 mg/dl (2.5-4.9) H 12/02/23 03:05 Magnesium 1.7 mg/dl (1.7-2.4) 12/02/23 03:05 Total Bilirubin 0.4 mg/dl (0.2-1.0) 12/02/23 03:05 AST 16 U/L (13-39) 12/02/23 03:05 ALT 18 U/L (7-52) 12/02/23 03:05 Alkaline Phosphatase 109 U/L (34-104) H 12/02/23 03:05 Troponin I High Sens 74.9 pg/ml (0-20) H* 12/02/23 03:05 Total Protein 7.0 gm/dl (6.0-8.3) 12/02/23 03:05 Albumin 3.2 gm/dl (3.4-5.0) L 12/02/23 03:05 Globulin 3.8 gm/dl (2.5-4.0) 12/02/23 03:05 Albumin/Globulin Ratio 0.8 (0.9-2) L 12/02/23 03:05 TSH 1.574 uIu/ml (0.300-4.500) 12/02/23 03:05 Diagnostic Findings Chest x-ray as per them interpretation: Elevated right hemidiaphragm, minimal congestion EKG as per my interpretation : Rate 110, A-fib, LAD, LAFB, LBBB (1) Hypotension Hypotension type: unspecified hypotension type Qualified Code(s): I95.9 - Hypotension, unspecified
[2023-12-02 05:41] LABS: Hematocrit (blood only) 28.4 % (42.0-52.0); Hemoglobin 9.6 g/dl (14.0-18.0)
[2023-12-02] MEDS ORDERED: GLUCOSE 40% GEL 15 GM TUBE PO PRN (05:51)
[2023-12-02] MEDS ORDERED: GLUCAGON FOR INJ 1 MG VIAL SQ PRN (05:51)
[2023-12-02] MEDS ORDERED: GLUCOSE 10 TAB/TUBE PO PRN (05:51)
[2023-12-02] MEDS ORDERED: LACTULOSE SYRUP 20 GM/30 ML UDC PO PRN (05:56)
[2023-12-02] MEDS: DIGOXIN 125 MCG in SYRINGE 9 ML IV STA (06:02)
[2023-12-02] MEDS: MIDODRINE HCL 2.5 MG TAB PO STA (06:02)
[2023-12-02] MEDS: LEVOTHYROXINE SODIUM 150 MCG TABLET PO SCH (06:05)
--- NOTE | 2023-12-02 06:25 | CT Scan Report ---
Exam(s): CT ABDOMEN + PELVIS Without Contrast EXAM: CT Abdomen and Pelvis Without Intravenous Contrast CLINICAL HISTORY: Reason for exam: abd pain. TECHNIQUE: Axial computed tomography images of the abdomen and pelvis without intravenous contrast. CTDI is 27 mGy and DLP is 1430 mGy-cm. Automated exposure control was utilized for the study. A dose lowering technique was utilized adhering to the principles of ALARA. COMPARISON: No relevant prior studies available. FINDINGS: Lung bases: Subsegmental atelectasis seen in bilateral lower lobes. Heart: Mild cardiomegaly. ABDOMEN: Liver: Unremarkable. Gallbladder and bile ducts: Unremarkable. No calcified stones. No ductal dilation. Pancreas: Unremarkable. No ductal dilation. Spleen: Unremarkable. No splenomegaly. Adrenals: Unremarkable. No mass. Kidneys and ureters: 9 mm diameter hemorrhagic cyst seen arising from the right renal cortex. Bilateral multiple renal cortical cysts are seen. No obstructing stones. No hydronephrosis. Stomach and bowel: Sigmoid colonic diverticulosis. No obstruction. No mucosal thickening. PELVIS: Appendix: No findings to suggest acute appendicitis. Bladder: Unremarkable. No stones. Reproductive: Moderate prostatomegaly. ABDOMEN and PELVIS: Intraperitoneal space: There is small amount of free air seen in the right upper abdomen. Small amount of free fluid seen in the pelvis. Bones/joints: No acute fracture. No dislocation. Posterior spinal fusion hardware seen at L2-L5 level. Vasculature: Ascending aorta is dilated measuring up to 4.1 cm in diameter. Lymph nodes: Unremarkable. No enlarged lymph nodes. Tubes, lines and devices: Peritoneal dialysis catheter tip seen in the right lower abdomen. IMPRESSION: 1. Sigmoid colonic diverticulosis without evidence of diverticulitis 2. Small amount of free fluid in the pelvis 3. Free air in the right upper abdomen which could be related to the peritoneal dialysis catheter Electronically signed by: Alphonse Rushing MD 12/02/23 06:24 AM
--- NOTE | 2023-12-02 06:57 | XRay Report ---
XR chest 1V portable CLINICAL HISTORY: weakness TECHNIQUE: Single frontal radiograph of the chest was obtained. Comparison: Comparison is made to chest radiograph 08/22/2023 FINDINGS: No lines and tubes are seen. Cardiomegaly is noted. The aortic arch is calcified. Lungs are underinfl ated but clear. Elevation of right hemidiaphragm is unchanged. No evidence of pleural effusion or pne umothorax. IMPRESSION: No acute chest disease. Cardiomegaly is noted. ACT 112: Negative or not required by law. Electronically signed by: Beny Bowser M.D. 12/02/2023 6:55 AM
--- OUTSIDE RECORDS SUMMARY | 2023-12-02 07:40 | External Medical Summary ---
Author Name Unknown Address Unknown Organization K01:LABORATORY [facility] [place] - [address] [facility] [place] [id number] Laboratory Report Ordering Provider Test Date Status FRANKIE LOZADA 11/30/2023 15:26:50 Final Observation Date Value Abnormality Reference (Units ) Status BUN 11/30/2023 15:26:50 52 Above high normal 6-20 (mg/dL) Final Creatinine 11/30/2023 15:26:50 8.6 Above high normal 0.6-1.2 (mg/dL) Final Glomerular filtration rate/1.73 sq M.predicted [Volume Rate/Area] in Serum, Plasma or Blood by Creatinine-based formula (CKD-EPI) 11/30/2023 15:26:50 6 Below low normal >=60 (mL/min) Final eGFR is calculated based on the CKD-EPI 2020 equation. Sodium 11/30/2023 15:26:50 132 Below low normal 135 -146 (mmol/L) Final Potassium 11/30/2023 15:26:50 4.0 3.5-5.1 (m mol/L) Final Cl 11/30/2023 15:26:50 88 Below low normal 98- 107 (mmol/L) Final CO2 11/30/2023 15:26:50 20 Below low normal 22- 32 (mmol/L) Final Anion gap 11/30/2023 15:26:50 24 Above high normal 7- 15 (mmol/L) Final Glucose 11/30/2023 15:26:50 202 Above high normal 70 -120 (mg/dL) Final Albumin 11/30/2023 15:26:50 3.8 3.8-5.0 (g /dL) Final AST (Aspartate aminotransferase) 11/30/2023 15:26:50 20 10-50 (U/L) Fin al Alk Phos 11/30/2023 15:26:50 151 Above high normal 35 -130 (U/L) Final Bilirubin, Total 11/30/2023 15:26:50 0.2 <=1 .2 (mg/dL) Final Calcium 11/30/2023 15:26:50 9.3 8.4-10.2 ( mg/dL) Final Protein 11/30/2023 15:26:50 6.9 6.0-8.3 (g /dL) Final ALT (Alanine aminotransferase) 11/30/2023 15:26:50 23 10-50 (U/L) Richard ravi Performing Location LAB[facility]ATORY [facility] [place] - [facility] [address] [facility] [id number]
--- OUTSIDE RECORDS SUMMARY | 2023-12-02 07:40 | External Medical Summary | Summary of Care ---
Author Name Unknown Organization [facility] Address [address] [place] [address] Phone [phone] Care Team Providers Care Tiller Worker Name Role Phone Pramod Damian MD Primary Care Provider +1- [phone] Reason for Visit * Reason Comments Outpatient Testing Encounter Details Date Type Department Care Team (Late st Contact Info) Description 11/30/2023 3:50 PM EDT Laboratory Laboratory, [place] [address] [place] [address] [place] [address] [place] [address] Dyslipidemia, goal LDL below 100; Encounter for long-term (current) use of medications; Type 2 diabetes mellitus with stage 4 chronic kidney disease, without long-term current use of insulin ([facility]); 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 1 g 02/27/2023 Active Allopurinol 100 MG Oral Tablet (Zyloprim) [...] 4 MG Oral Tablet Disintegrating (Zofran)Indications: Nausea Dissolve 1 tablet on tongue every 8 hours as needed for Nausea. 20 Tablet 1 11/02/2023 Active Levothyroxine Sodium 150 MCG Oral Tablet (Levoxyl)Indications :Acquired hypothyroidism,[place] amy TSH TAKE 1 TABLET DAILY 1ST THING IN MORNING AT LEAST 30 MIN PRIOR TO BREAKFAST OR OTHER MEDS 90 Tablet 2 11/05/2023 Active HYDROcodone-Acetamin ophen 5-325 MG Oral TabletIndications:Ac tyonek right-sided low back pain without sciatica Take 1 Tablet by mouth every 6 hours as needed for Pain, Mild or Pain, Severe. 30 Tablet 11/10/2023 Active Amoxicillin-Pot Clavulanate 500-125 MG Oral Tablet (Augmentin) Take 1 Tablet by mouth in the morning and 1 Tablet before bedtime. 11/21/2023 Active documented as of this encounter (statuses as of 11/30/2023) Active Problems Problem Noted Date Diagnosed Date [...] as of this encounter (statuses as of 11/30/2023) Resolved Problems Problem Noted Date Diagnosed Date [...] 08/27/2014 08/27/2014 Hypertensive heart disease w [facility] congestive heart failure 08/27/2014 05/25/2019 Overview: duplicate [...] as of this encounter (statuses as of 11/30/2023) Immunizations Name Administration Dates Next Due COVID-19 mRNA, LNP-s, No Pre serve, 2-Dose Series (BrightWhistle) 02/20/2021,01/30/2021 Pneumococcal Conjugate Vacc, 13 Valent (Prevnar) [...] money to get more. Never true 10/12/2023 Childcare Answer Date Recorded Do you feel overwhelmed with taking care of a child, family member or friend? No 10/12/2023 Does your family need help f inding childcare? (Household - for ages 0-17 years) Not on file 10/12/2023 Clothing Answer Date Recorded Have you been unable to get clothing when it was really needed? No 10/12/2023 Is your family able to get c lothes or diapers when needed? (Household - for ages 0-17 years) Not on file 10/12/2023 Personal Safety Answer Date Recorded Do you feel unsafe or have concerns for your saf ety? No 10/12/2023 Do you have concerns for you r family's safety? (Household - for ages 0-17 years) Not on file 10/12/2023 Utilities Answer Date Recorded Do you have trouble paying y our heating, water, or electric bill? No 10/12/2023 Is your family able to pay t he heat, water, or electric bill? (Household - for ages 0-17 years) Not on file 10/12/2023 Does your family have access to good internet? (Household - for ages 0-17 years) Not on file 10/12/2023 Employment Status Answer Date Recorded Are you unemployed or without regular income? No 10/12/2023 Does the household have a re gular source of income? (Household - for ages 0-17 years) Not on file 10/12/2023 Social Connections Answer Date Recorded How often do you feel lonely or isolated from th ose around you? Often 10/12/2023 Financial Resource Strain Answer Date R ecorded Do you have any trouble payi ng for your medications, or do you think you might in the future? No 10/12/2023 Does your family have troubl e paying for medicine? (Household - for ages 0-17 years) Not on file 10/12/2023 Transportation Needs Answer Date Record ed READ ONLY Do you have troubl e getting a ride to medical visits or work? Never True 10/12/2023 Does your family have a hard time getting a ride to doctors visits? (Household - for ages 0-17 years) Not on file 10/12/2023 Has lack of transportation k ept you from medical appointments, meetings, work, or from getting things needed for daily living? Check all that apply. (Adult - for ages 18 years and over) Not on file 10/12/2023 Do you (or your family) have trouble finding or paying for a ride (transportation)? (Household - for ages 0-17 years) Not on file 10/12/2023 Housing Stability Answer Date Recorded Do you currently live in a s helter or have no steady place to sleep at night? No 10/12/2023 READ ONLY Do you think you a re at risk of becoming homeless? No 10/12/2023 Does your family worry about paying for your home or becoming homeless? (Household - for ages 0-17 years) Not on file 0 10/12/2023 Are you homeless or worried that you might be in the future? (Adult - for ages 18 years and over) Not on file Are you (or your family) brooke eless or worried that you might be in the future? (Household - for ages 0-17 years) Not on file Food Insecurity Answer Date Recorded Do you need food for this week? No 10/12/2023 Are you able to get enough f ood for your family? (Household - for ages 0-17 years) Not on file 10/12/2023 Does your family need food t his week? (Household - for ages 0-17 years) Not on file 10/12/2023 Do you always have enough fo od for your family? (Household - for ages 0-17 years) Not on file 10/12/2023 Sex and Gender Information Value Date [...] Care Team (Late st Contact Info) Description 12/13/2023 1:00 PM EDT Office Visit [place] [address] [place] [facility] [place] [phone] Pramod Damian MD [address] [facility] [place] [address] 01/06/2024 1:00 PM EDT Office Visit Gastroenterology, [facility] [address] [facility] [place] [address] Karlee Delaney CRNP [address] [place] [address] 02/22/2024 3:40 PM EDT [facility] [address] [facility] [phone] Pramod Damian MD [address] [place] [address] Pending Results Name Type Priority Associated Diagnoses Date /Time LIPID PANEL WITH DIRECT LDL IF TG IS HIGH Lab Routine Dyslipidemia, goal LDL below 100 Encounter for long-term (current) use of medications 11/30/2023 3:26 PM EDT COMPREHENSIVE METABOLIC PANEL Lab Routine Type 2 diabetes mellitus with stage 4 chronic kidney disease, without long-term current use of insulin (HCC) 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 (HCC) 11/30/2023 3:26 PM EDT CBC Lab Routine Type 2 diabetes mellitus with stage 4 chronic kidney disease, without long-term current use of insulin (HCC) 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 (HCC) 11/30/2023 3:26 PM EDT Health Maintenance Due Date Last Done Comments Alpha-1 Antitrypsin 1959 Zoster Vaccines (1 of 2) 1991 DTaP,Tdap,and Td Vaccines (1 - Tdap) 04/28/2008 04/27/2008 Diabetic Foot Exam 02/06/2021 02/07/2020, 0 07/04/2018, 06/30/2017, Additional history exists *COPD SEVERITY VERIFIED BY PFT 03/19/2022 COVID-19 Vaccine ( season) 2023 02/20/2021, 01/30/2021 *CXR OR CT FOR COPD EVER 11/21/2023 Influenza Vaccine (FLU shot) (#1) 2024 03/25/2023, 03/17/2022, 04/28/2021, Additional history exists HbA1c 03/04/2024 09/03/2023, 02/07, 11/02/2022, Additional history exists Diabetic Eye Exam 07/08/2024 07/09/2023, , 03/29/2019, Additional history exists TSH 08/09/2024 08/10/2023, 03/12, 03/03/2023, Additional history exists Depression Monitoring 09/06/2024 09/07/2023, 024 O2 ASSESSMENT COMPLETED IN PAST YEAR FOR COPD 09/13/2024 09/14/2023 Pneumococcal Vaccine: 65+ Years Completed 01/26/2018, 01/30/2006 Hepatitis B Vaccine Completed 04/20/2023, 02/09/2023, 01/14/2023 HPV (Gardasil) Vaccine Aged Out No lo nger eligible based on patient's age to complete this topic MENINGOCOCCAL (MENACTRA/MENVEO) Aged Out No longer eligible based on patient's age to complete this topic documented as of this encounter Medical Devices Implanted Type Area Poultry Breeder Device Identifier Shelf Expiration Date Model / Serial / Lot Mesh Flat Sheet 1x4 [id number] - [id number] Implanted:Qty: 1 on 11/12/2022 by Willie Musa MD at OR 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 No Care Teams Tiller Worker Relationship Specialty Start Date End Date Pramod Damian MD [address] [place] [address] PCP - General 04/10/02 documented as of this encounter
--- OUTSIDE RECORDS SUMMARY | 2023-12-02 07:40 | External Medical Summary ---
Author Name Unknown Address Unknown Organization [id number]:LABORATORY [facility] - [facility] [address] [place] [address] Laboratory Report Ordering Provider Test Date Status FRANKIE LOZADA 11/30/2023 15:26:50 Final Observation Date Value Abnormality Reference (Units ) Status WBC, Total 11/30/2023 15:26:50 10.48 4.00-10.80 (K/uL) Final RBC 11/30/2023 15:26:50 3.55 4.50-5.25 (M/uL) Final Hemoglobin 11/30/2023 15:26:50 11.2 Below low normal 14.0-16.8 (g/dL) Final HCT 11/30/2023 15:26:50 33.6 Below low normal 40.0-48.4 (%) Final MCV 11/30/2023 15:26:50 94.6 82.0-99.5 (fL) Final MCH 11/30/2023 15:26:50 31.5 27.0-34.0 (pg) Final MCHC 11/30/2023 15:26:50 33.3 32.0-36.0 (g/dL) Final RDW 11/30/2023 15:26:50 15.1 11.5-15.5 (%) Final Platelets 11/30/2023 15:26:50 368 140-400 (K/uL) Final MPV 11/30/2023 15:26:50 9.7 6.6-11.1 (fL) Final Nucleated erythrocytes/100 leukocytes [Ratio] in Blood by Automated count 11/30/2023 15:26:50 0 <=0 (/100 WBCs) Final Performing Location LABORATORY [facility] - [address] [place] [address] [place] [address]
--- OUTSIDE RECORDS SUMMARY | 2023-12-02 07:40 | External Medical Summary | Summary of Care ---
Author Name Unknown Organization [facility] Address [address] [place] [address] Phone [phone] Care Team Providers Care Art Director Name Role Phone Pramod Damian MD Primary Care Provider +1- [phone] Reason for Referral * Evaluate & Treat - Unlimited Visits (Within 30 days (routine)) - Authorized Specialty Diagnoses / Procedures Referred By Cal dykes Referred To Contact Gastroenterology Diagnoses Diverticulitis of colon Gina Nichole PA-C [address] [place] [address] Referral ID Status Reason Start Date Expiration Date Visits Requested Visits Authorized [id number] Authorized Specialty Services Required 11/24/2023 999 999 Question Answer Referral Priority Within 30 days (routine) Where should this appointment be scheduled? [facility] For what condition is the patient being referred? All Gastro Conditions Reason for Visit * Reason Onset Date Comments Advice 11/24/2023 Encounter Details Date Type Department Care Team (Late st Contact Info) Description 11/24/[address] [facility] [address] [place] [address] Tiffany Lovell, KRYSTAL [address] [place] [address] Advice Allergies Active Allergy Reactions Criticality Noted Date Comments Citalopram 04/20/2014 Clonidine Hydrochloride Nausea/vomiting 07/11/2 008 Nightmares, nervousness Reaction depending on brand!!! Must be produced by [employer] Elisusy Doxazosin Mesylate Other (Please comment) High 05/16/2007 [...] as of this encounter (statuses as of 11/25/2023) Medications Medication Sig Dispensed Refills Start Date End Date Status Blood Glucose Monitoring Suppl (ONETOUCH VERIO) w/Device KIT Use up to 4 times a day 1 Kit 11/11/2017 Active ONETOUCH DELICA LANCETS FINE MISC Use four times daily 100 Each 11 05/12/2019 Active Renal Vitamin 0.8 MG Oral Tablet Take by mouth. Active CanvaTouch Verio In Vitro Strip (Glucose Blood)Indications:Ty pe 2 diabetes mellitus with hemoglobin A1c goal of less than 8.0% ([facility]) USE UP TO FOUR TIMES [...] Sodium 150 MCG Oral Tablet (Levoxyl)Indications :Acquired hypothyroidism,[place] amy TSH TAKE 1 TABLET DAILY 1ST [...] as of this encounter (statuses as of 11/25/2023) Active Problems Problem Noted Date Diagnosed Date [...] as of this encounter (statuses as of 11/25/2023) Resolved Problems Problem Noted Date Diagnosed Date [...] CKD protocol #1 Hypertensive heart disease w [facility] congestive heart failure 08/27/2014 08/27/2014 Hypertensive heart disease w [facility] congestive heart failure 08/27/2014 05/25/2019 [...] as of this encounter (statuses as of 11/25/2023) Immunizations Name Administration Dates Next Due COVID-19 [...] do you feel lonely or isolated from ose around you? Often 10/12/2023 Financial Resource [...] encounter Miscellaneous Notes * Telephone Encounter - Lalitha Motley OSA - 11/25/2023 9:43 AM EDT Spoke to patient and he is upset that Gastro can't get him in until end december. He said he will wait to see Dr. Cotter on the . Patient also declined scheduling Gastro with any other location. 11/25/2023 * Telephone Encounter - Gina Nichole PA-C - 11/24/2023 4:45 PM EDT Needs seen There is absolutely nothing that can be done over the phone Can be gi or fam med or both Please schedule Diverticulitis of colon (Primary) - ADULT GASTROENTEROLOGY REFERRAL OP Gina Nichole PA-C 11/24/2023 4:46 PM * Telephone Encounter - Tiffany Lovell RN - 11/24/2023 12:05 PM EDT SITUATION: Received T/C from patient BACKGROUND: Pt recently hospitalized for diverticulitis. Covering CM completed LORENA assessment on Wednesday. 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 He continues to have severe pain in his side. States it's around his belt area on the left side parallel to his belly button. Rates pain /. Is somewhat relieved with oxycodone. He has been having Bms-soft to loose. Continues to take antibiotic (Augmentin)and probiotic. Denies any N/V or fevers or chills. States pain is very difficult. Believes it is r/t the diverticulitis. RECOMMENDATION: He is not scheduled to be seen until 11/29 by PCP. Adamantly states he does not wantto go back to the hospital. He is to follow up with GI as well, but I do not see anything scheduled. Please advise Tiffany Lovell RN [place] [address] [facility] [place] [address] documented in this encounter Plan of Treatment Upcoming Encounters Date Type Department Care Team (Late st Contact Info) Description 11/30/2023 2:00 PM EDT [facility] [place] [address] [facility] [address] Pramod Damian MD [address] [facility] [place] [address] 12/13/2023 1:00 PM EDT Office Visit [facility] [address] [facility] [place] [address] Pramod Damian MD [address] [place] [address] 01/06/2024 1:00 PM EDT Office Visit Gastroenterology, [facility] [address] [place] [address] Karlee Delaney CRNP [address] [place] [address] 02/22/2024 3:40 PM EDT Office Visit [facility] [address] [place] [facility] [place] [address] Pramod Damian MD [address] [place] [address] Scheduled Referrals Name Type Priority Associated Diagnoses Order Schedule ADULT GASTROENTEROLOGY REFERRAL OP Referral Within 30 days (routine) Diverticulitis of colon Ordered: 11/24/2023 Health Maintenance Due Date Last Done Comments [...] this encounter Medical Devices Implanted Type Area Personal Lines Sales Rep Device Identifier Shelf Expiration Date Model / Serial / Lot Mesh Flat Sheet 1x4 [id number] - [id number] Implanted:Qty: 1 on 11/12/2022 by Willie Musa MD at OR [facility] Right: Groin CR BARD : DAVOL 09/04/2025 [id number] / / [id number] documented as of this encounter Visit Diagnoses Diagnosis Diverticulitis of colon- Primary Diverticulitis of colon (without mention of hemorrhage) documented in this encounter Advance Directives * [...] patient have Health Care Power of Pipe Smoking Machine Offbearer? No Care Teams Art Director Relationship Specialty Start Date End Date Pramod Damian MD [address] [place] [address] PCP - General 04/10/02 documented as of this encounter
--- OUTSIDE RECORDS SUMMARY | 2023-12-02 07:40 | External Medical Summary | Summary of Care ---
Author Name Unknown Organization [facility] Address [address] [facility] [facility] [place] [address] Phone [phone] Care Team Providers Care Quality Consultant Name Role Phone Pramod Damian MD Primary Care Provider +1- [phone] Encounter Details Date Type Department Care Team (Late st Contact Info) Description 11/29/2023 1:30 PM EDT Scheduled Telephone Care Coordination and Integration [address] [place], [place] [id number] Tiffany Velarde Community [facility] Pipe Testing Technician [address] [place] [address] Allergies Active Allergy Reactions Criticality [...] as of this encounter (statuses as of 11/29/2023) Medications Medication Sig Dispensed Refills Start Date [...] Sodium 150 MCG Oral Tablet (Levoxyl)Indications :Acquired hypothyroidism,[place] amy TSH TAKE 1 TABLET DAILY 1ST [...] as of this encounter (statuses as of 11/29/2023) Active Problems Problem Noted Date Diagnosed Date [...] as of this encounter (statuses as of 11/29/2023) Resolved Problems Problem Noted Date Diagnosed Date [...] as of this encounter (statuses as of 11/29/2023) Immunizations Name Administration Dates Next Due COVID-19 [...] 10/12/2023 Does the household have a re lar source of income? (Household - for ages [...] as of this encounter Progress Notes * Tiffany Velarde, Community Health Pipe Testing Technician - 11/29/2023 2:05 PM EDT Telemedicine visit: No Community Health Pipe Testing Technician (JD) documentation: CHW placed PC to patient per CM's request Patient reported that he was still in pain and pain in his lower back. Is nauseas but no vomiting and always has diarrhea. No fever or chills. CHW reviewed red flags with patient. Patient did not understand about the question of worsening pain. CHW clarified this with patient. Patient reported thathe has a f/u PCP appointment tomorrow. CHW encouraged patient to reach out to CM Tiffany with any concerns or questions and patient confirmed CM's contact information Tiffany Velarde- Community Health Worker 1 Support Services/[facility] [employer] [email or web address] documented in this encounter Plan of Treatment Upcoming Encounters Date Type Department Care Team (Late st Contact Info) Description 11/30/2023 2:00 PM EDT Office Visit [facility] [place] [address] [facility] [place] [place] [phone] Pramod Damian MD [address] [facility] [place] [place] [address] 12/13/2023 1:00 PM EDT Office Visit [facility] [address] [facility] [place] [place] [phone] Pramod Damian MD [address] [facility] [place] [address] 01/06/2024 1:00 PM EDT Office Visit Gastroenterology, [facility] [address] [place] [address] Karlee Delaney CRNP [address] [place] [address] 02/22/2024 3:40 PM EDT Office Visit [facility] [address] [facility] [phone] Pramod Damian MD [address] [place] [address] Health Maintenance Due Date Last Done Comments [...] this encounter Medical Devices Implanted Type Area Open Hearth Furnace Laborer Device Identifier Shelf Expiration Date Model / Serial / Lot Mesh Flat Sheet 1x4 [id number] - [id number] Implanted:Qty: 1 on 11/12/2022 by Willie Musa MD at OR [facility] Right: Groin CR BARD : DAVOL 09/04/2025 [id number] / / [id number] documented as of this encounter Advance Directives [...] the patient have Health Care Power of Shake Sawyer? No Care Teams Quality Consultant Relationship Specialty Start Date End Date Pramod Damian MD [address] [facility] [place] [place] [address] PCP - General 04/10/02 documented as of this encounter
--- OUTSIDE RECORDS SUMMARY | 2023-12-02 07:40 | External Medical Summary ---
Author Name Unknown Address Unknown Organization [id number]:[facility] [place] [address] [place] [address] Laboratory Report Ordering Provider Test Date Status LINDA MCKEON 11/30/2023 15:26:50 Final Observation Date Value Abnormality Reference (Units ) Status Triglyceride 11/30/2023 15:26:50 273 Above high normal <=174 (mg/dL) Final Triglyceride Reference Range s (mg/dL):
<150 Acceptable
150-174 Borderline high
175-499 High
>=500 Very high Cholesterol 11/30/2023 15:26:50 178 <200 (mg /dL) Final Total Cholesterol Reference Ranges (mg/dL):
<200 Desirable
200-239 Borderline high
>=240 High HDL 11/30/2023 15:26:50 29 Below low normal >39 (mg/dL) Final HDL Cholesterol Reference Ra nges (mg/dL):
>=60 High (Desirable)
<50 Low (Undesirable) For Females
<40 Low (Undesirable) For Males NON-HDL CHOLESTEROL 11/30/2023 15:26:50 149 <=159 (mg/dL) Final Non-HDL Cholesterol Referenc e Range (mg/dL):
<100 Target level for high risk ASCVD patient
<130 Optimal for general population
130-159 Near optimal for general population
160-189 Borderline High
190-219 High
>=220 Very High Performing Location [facility] [place] [address] [place] [address]
--- OUTSIDE RECORDS SUMMARY | 2023-12-02 07:40 | External Medical Summary ---
Author Name Unknown Address Unknown Organization [id number]:[facility] [place] [address] [place] [address] Laboratory Report Ordering Provider Test Date Status MIKELINDA 11/30/2023 15:26:50 Final Observation Date Value Abnormality Reference (Units ) Status LDL, (direct) 11/30/2023 15:26:50 96 <=129 (mg/dL) Final LDL Cholesterol Reference Ra nges (mg/dL):
<70 Target level for high risk ASCVD patient
<100 Optimal for general population
100-129 Near optimal for general population
130-159 Borderline high
160-189 High
>=190 Very high Performing Location LABORATORY [facility] - [address] [place] [address]
--- OUTSIDE RECORDS SUMMARY | 2023-12-02 07:41 | External Medical Summary | Summary of Care ---
Author Name Unknown Organization [facility] Address [address] [address] Phone [phone] Care Team Providers Care Gold Leaf Gilder Name Role Phone Pramod Damian MD Primary Care Provider [phone] Encounter Details Date Type Department Care Team (Late st Contact Info) Description 11/18/2023 Population Health External Data Unspecified Department Allergies [...] as of this encounter (statuses as of 11/18/2023) Medications Medication Sig Dispensed Refills Start Date [...] Sodium 150 MCG Oral Tablet (Levoxyl)Indications :Acquired hypothyroidism,[place] amy TSH TAKE 1 TABLET DAILY 1ST THING IN MORNING AT LEAST 30 MIN PRIOR TO BREAKFAST OR OTHER MEDS 90 Tablet 2 11/05/2023 Active HYDROcodone-Acetamin ophen 5-325 MG Oral TabletIndications:Ac tribe right-sided low back pain without sciatica Take 1 Tablet by mouth every 6 hours as needed for Pain, Mild or Pain, Severe. 30 Tablet 11/10/2023 Active documented as of this encounter (statuses as of 11/18/2023) Active Problems Problem Noted Date Diagnosed Date [...] as of this encounter (statuses as of 11/18/2023) Resolved Problems Problem Noted Date Diagnosed Date [...] CKD protocol #1 Hypertensive heart disease w [facility] congestive heart failure 08/27/2014 08/27/2014 Hypertensive heart disease w [facility] congestive heart failure 08/27/2014 05/25/2019 Overview: duplicate [...] as of this encounter (statuses as of 11/18/2023) Immunizations Name Administration Dates Next Due COVID-19 mRNA, LNP-s, No Pre serve, 2-Dose Series (MaxCDN) 02/20/2021,01/30/2021 Pneumococcal Conjugate Vacc, 13 Valent (Prevnar) [...] Description 01/31/2024 2:00 PM EDT Office Visit [facility] [address] [place] [phone] Gina Nichole PA-C [address] [place] [address] 02/22/2024 3:40 PM EDT Office Visit [facility] [address] [place] [phone] Pramod Damian MD [address] [place] [address] Health Maintenance Due Date Last Done Comments Alpha-1 Antitrypsin 1959 Zoster Vaccines (1 of 2) 1991 DTaP,Tdap,and Td Vaccines (1 - Tdap) 04/28/2008 04/27/2008 Diabetic Foot Exam 02/06/2021 02/07/2020, 0 07/04/2018, 06/30/2017, Additional history exists *COPD SEVERITY VERIFIED BY PFT 03/19/2022 COVID-19 Vaccine (3 - season) 2023 02/20/2021, 01/30/2021 Influenza Vaccine (FLU shot) (#1) 2024 03/25/2023, [...] this encounter Medical Devices Implanted Type Area Trapper Bird Device Identifier Shelf Expiration Date Model / Serial / Lot Mesh Flat Sheet [id number] - [id number] Implanted:Qty: 1 on 11/12/2022 by Willie Musa MD at OR [facility] Right: Groin CR BARD : DAVOL 09/04/2025 [id number] / / [id number] documented as of this encounter Advance Directives [...] the patient have Health Care Power of Home Health Outreach Coordinator? No Care Teams Gold Leaf Gilder Relationship Specialty Start Date End Date Pramod Damian MD [address] [place] [address] PCP - General 04/10/02 documented as of this encounter
[2023-12-02] MEDS: PIPERACILLIN/TAZOBACTAM 4.5 GM in DEXTROSE 5% MINI-B 100 ML IV STA (07:49)
[2023-12-02] MEDS: VITAMIN B COMPLEX TAB PO SCH (08:02)
[2023-12-02] MEDS: allopurinoL 100 MG TAB PO SCH (08:03)
[2023-12-02] MEDS: NEPHROCAPS PO SCH (08:03)
[2023-12-02] MEDS: METOPROLOL SUCC 25MG EXT REL TAB PO SCH (08:03)
[2023-12-02] MEDS: TORSEMIDE 100 MG TAB PO SCH (08:03)
[2023-12-02] MEDS: CHOLECALCIFEROL 25 MCG (1000 UNITS) TAB PO SCH (08:03)
[2023-12-02] MEDS: INSULIN ASPART PER UNIT CHARGE SC SCH (08:33)
--- NOTE | 2023-12-02 08:56 | Electrocardiogram Report ---
Test Reason : Blood Pressure : / mmHG Vent. Rate : 111 BPM Atrial Rate : 000 BPM P-R Int : 000 ms QRS Dur : 128 ms QT Int : 322 ms P-R-T Axes : 000 -15 135 degrees QTc Int : 437 ms Atrial fibrillation with rapid ventricular response with premature ventricular or aberrantly conducte d complexes Left bundle branch block Abnormal ECG When compared with ECG of 19-NOV-2023 13:59, No significant change was found Confirmed by Ze Ly ([id number]) on 12/02/2023 8:56:24 AM Referred By: REFERRED SELF Confirmed By:Ze Ly
--- NOTE | 2023-12-02 11:10 | Nephrology Consultation ---
Date of Consultation December 02, 2023 Assessment & Plan (1) End-stage renal disease on peritoneal dialysis: he does CAPD about 4 exchanges per day. Will switch to CCPD of 4 exchanges of all 1.5% today. Slightly low na is expected in ESRD patient. other lytes are fine. No e/o vol overload. maybe even slightly volume deplted given low bp and poor appetite. will not try to take much UF tonight. No need of Iv fluid yet (2) Hypotension: r/o sepsis. Also Check PD fluid for Cell count. gram and c/s to rule out peritonitis--clinically does not appear so. (3) Weakness: multifactorial. could be related with deconditioning/Depression but also has low BP currently. History of Present Illness Reason for Consultation: ESRD on PD now with Low BP/weakness Attending Physician: Lake Valente MD History of Present Illness 83/M with ESRD ( not much urine now) on CAPD at home. Also has chronic diastolic heart failure (EF 55 to 59% TTE 2022), valvular heart disease (mild AR/TR), chronic LBBB, A-fib on Eliquis, aortic root enlargement as per records, COPD, DM 2 on oral medications, thyroid cancer status post surgery, postsurgical hypothyroidism, prostate cancer, BPH, chronic anemia (baseline hemoglobin 10-11), anxiety disorder, past tobacco abuse. He does have issue with meds tolerance. every meds cause him to have Anxiety. So we never know what med he is actually taking. Recent admission 2 weeks ago for acute diverticulitis improved with medical management. Patient seen on follow-up visit at PCP's office 2 days ago. Hemorrhoids bleeding from time to time from Eliquis. Increasing weakness noted at home yesterday afternoon. Has not been eating much. Patient denies headache, chest pain, SOB. SBP noted to be 60s upon EMS arrival at home. Patient brought to ER for evaluation. even now BP is low. He had Midodrine also. Working Dx for now is Sepsis from pressure ulcer. On Zosyn. Cultures sent--Blood culture and PD fluid--pending. CT abdomen--No new findings ROS-- vague Symptoms of weakness and feeling bad. Occ diarrhea and Bleeding Stool. Poor appetite. But no SOB, N,v, fever. Physical Exam Physical Exam: GENERAL: Comfortable, Awake and alert normal speech, no respiratory distress SKIN: No rash HEENT: Pale palpebral conjunctivae, no ptosis, dry buccal mucosa NECK : Supple, no tenderness CHEST : CTA, no tenderness HEART : Irregular, no murmur ABDOMEN: Soft and minimal tenderness EXTREMITIES : No LE swelling/tenderness NEUROLOGIC : Coherent, no facial asymmetry, no other gross focality Allergies Allergy/AdvReac Type Severity Reaction Status Date / Time carvedilol Allergy Intermediate Hives Verified 12/02/23 03:08 losartan Allergy Unknown Unknown Verified 12/02/23 03:08 ANJELICA Inhibitors AdvReac Intermediate INTOLERANCE Verified 12/02/23 03:08 PER MD ORDER allopurinol AdvReac Intermediate severe abd Verified 12/02/23 03:08 pain Beta-Blockers AdvReac Intermediate INTOLERANCE Verified 12/02/23 03:08 (Beta-Adrenergic Bloc PER DR ARELLANO clonidine AdvReac Intermediate allergic Verified 12/02/23 03:08 to all but 1 brand doxazosin AdvReac Intermediate INTOLERANCE Verified 12/02/23 03:[address] ARELLANO hydralazine AdvReac Intermediate diarrhea, Verified 12/02/23 03:08 testicular pain hydrochlorothiazide AdvReac Intermediate hyponatremi Verified 12/02/23 03:08 a lisinopril AdvReac Intermediate Cough Verified 12/02/23 03:08 simvastatin [From Zocor] AdvReac Intermediate Muscle Pain Verified 12/02/23 03:08 sitagliptin [From Januvia] AdvReac Intermediate restlessnes Verified 12/02/23 03:08 s Qwqdoyx-ONM-NvH Reductase AdvReac Intermediate INTOLERANCE Verified 12/02/23 03:08 Inhibitor PER [Ocbswny-Xyg-Ste Reductase ADAN--MYALGIAS Inhibitor] citalopram AdvReac Unknown Unknown Verified 12/02/23 03:08 Home Medications Medication Instructions Recorded Confirmed Type allopurinol 100 mg tablet 100 mg PO QAM 02/25/18 12/02/23 History levothyroxine 150 mcg tablet 150 mcg PO DAILYBB 08/12/20 12/02/23 History torsemide 100 mg tablet 100 mg PO QAM 08/29/22 12/02/23 History albuterol sulfate 90 mcg/actuation 2 puff inhalation Q4 PRN Wheezing 08/22/23 12/02/23 History aerosol inhaler apixaban 2.5 mg tablet (Eliquis) 2.5 mg PO AMHS 08/22/23 12/02/23 History buspirone 5 mg tablet 5 mg PO Q4 PRN Anxiety 08/22/23 12/02/23 History glipizide 10 mg tablet 10 mg PO AMHS 08/22/23 12/02/23 History hydrocodone 5 mg-acetaminophen 325 1 tab PO Q6 PRN Pain 08/22/23 12/02/23 History mg tablet lactulose 10 gram/15 mL oral 15 ml PO BID PRN severe 08/22/23 12/02/23 History solution constipation potassium chloride 10 mEq 20 meq PO QAM 08/22/23 12/02/23 History tablet,extended release(part/cryst) terazosin 1 mg capsule 1 mg PO HS 08/22/23 12/02/23 History vitamin B complex-vitamin C-folic 1 tab PO DAILY 08/22/23 12/02/23 History acid 0.8 mg tablet (Jessie-Joycelyn) cholecalciferol (vitamin D3) 25 50 mcg PO QAM 11/16/23 12/02/23 History mcg (1,000 unit) tablet (Vitamin D3) hydrocortisone 2.5 % topical cream 1 applic [place] BID PRN Hemorrhoids 11/16/23 12/02/23 History with perineal applicator (Anusol-HC) ondansetron 4 mg disintegrating 4 mg translingual Q8 PRN Nausea 11/16/2312/01 History tablet metoprolol succinate 25 mg 25 mg PO QAM 12/02/23 12/02/23 History tablet,extended release 24 hr vitamin B complex 1 tab PO DAILY 12/02/23 12/02/23 History Patient History Medical History Gout Pulmonary hypertension LBBB (left bundle branch block) COPD (chronic obstructive pulmonary disease) Spinal stenosis Family History Other Diabetes Hypertension Social History Smoking Status: Former smoker Tobacco Type: Cigarettes Cigarettes Per Day: 10; Smoking End Date: 35 yrs ago; Second Hand Exposure: No; Do You Dip or Chew Tobacco: No; Tobacco Cessation Education Requested by Patient: No Hx Alcohol Use: No Hx Substance Use: No Preferred Language: Comoran Communication Ability: Effective Fire Sprinkler Apparatus Inspector Required: No Beliefs That Will Affect Care: None marital status: Current Living Situation: Spouse Other Information That Helps Us Care for You: No Feels Safe at Home: Yes Safety Concerns: Feels Safe At This Time Assistive Devices: Cane, Denture - Upper, Denture - Lower and Walker Results & Data Vital Signs (Past 12 Hours) Vital Signs Temp Pulse Pulse Pulse Resp BP BP 12/02/23 08:10 36.8 C 99 H 17 94/61 L 12/02/23 06:18 36.8 C 108 H 22 89/68 L 12/02/23 06:02 103 H 12/02/23 05:51 36.8 C 103 H 18 89/48 L 12/02/23 04:00 112 H 19 93/62 L 12/02/23 03:12 12/02/23 03:03 113 H 12/02/23 03:03 37.3 C 109 H 23 84/52 L Pulse Ox O2 Del Method 12/02/23 08:10 96 Room Air 12/02/23 06:18 94 Room Air 12/02/23 06:02 12/02/23 05:51 94 Room Air 12/02/23 04:00 92 Room Air 12/02/23 03:12 94 Room Air 12/02/23 03:03 12/02/23 03:03 93 Room Air Laboratory Results hgb 9.6. na low at 130. reviewed CMP. Diagnostic Findings CT abd (2) Hypotension Hypotension type: unspecified hypotension type Qualified Code(s): I95.9 - Hypotension, unspecified
[2023-12-02] MEDS: MIDODRINE HCL 2.5 MG TAB PO SCH (12:04)
--- NOTE | 2023-12-02 12:06 | Gastrointestinal Consultation ---
Date of Consultation December 02, 2023 Assessment & Plan (1) BRBPR (bright red blood per rectum): -Patient with recent diverticulitis with micro perforation who is not a candidate for colonoscopy at present due to this. He has an appointment next week with Yamini RAYA to arrange an outpatient colonoscopy after the wait period. He has a history of hemorrhoids leading to BRBPR in the past. We can initiate topical treatment BID x 14 days for this and he can discuss options further with Yamini RAYA regarding any definitive hemorrhoid procedures given his ongoing Eliquis use. Continue to monitor H/H. He notes he currently has no abdominal pain. Supervising Physician Co-Signing Physician Notes I personally saw and examined the patient. I have reviewed the chart and agree with the documentation provided by the TRAVEL COUNSELOR including discussion about the assessment, treatment and plan. Briefly, 83 yo male with a multitude of chronic medical comorbidities who presented to the ED with ongoing weakness and some brbpr. He was recently hospitalized due to diverticulitis with microperforation. He had a CT scan of the abdomen/pelvis this admission that shows improvement of this issue. He notes improvement of his bowel movements as well as abdominal pain. He has an appointment with [facility] on 12/06/23 with Karlee PEREZ. He notes bleeding of his hemorrhoids. last colon was 10-15 years ago. Suggest hydrocortisone supp and supportive care. Will need to wait 4-6 weeks given recent diverticulitis and microperf. Overall improving and no further bleeding (ddx hemorrhoids) but does complain of fatigue. History of Present Illness Reason for Consultation: GI bleed, abdominal pain Attending Physician: Lake Valente MD History of Present Illness Patient is an 83 yo male with a multitude of chronic medical comorbidities who presented to the ED with ongoing weakness. He was recently hospitalized due to diverticulitis with microperforation. He had a CT scan of the abdomen/pelvis this admission that shows improvement of this issue. He notes improvement of his bowel movements as well as abdominal pain. He has an appointment with [facility] on 12/06/23 with Karlee PEREZ. He notes bleeding of his hemorrhoids. This is a repetitive problem. He notes improvement while on hydrocortisone treatments in the past. He takes Eliquis. Nephrology is following for his ESRD on PD. H/H 9.6/28.4. Last bowel movement charted on 12/02/23 was brown and formed. He notes a colonoscopy in the past 10-15 years but cannot recall where. Allergies Allergy/AdvReac Type Severity Reaction Status Date / Time carvedilol Allergy Intermediate Hives Verified 12/02/23 03:08 losartan Allergy Unknown Unknown Verified 12/02/23 03:08 ANJELICA Inhibitors AdvReac Intermediate INTOLERANCE Verified 12/02/23 03:08 PER ORDER allopurinol AdvReac Intermediate severe abd Verified 12/02/23 03:08 pain Beta-Blockers AdvReac Intermediate INTOLERANCE Verified 12/02/23 03:08 (Beta-Adrenergic Bloc PER DR ARELLANO clonidine AdvReac Intermediate allergic Verified 12/02/23 03:08 to all but 1 brand doxazosin AdvReac Intermediate INTOLERANCE Verified 12/02/23 03:[address] ARELLANO hydralazine AdvReac Intermediate diarrhea, Verified 12/02/23 03:08 testicular pain hydrochlorothiazide AdvReac Intermediate hyponatremi Verified 12/02/23 03:08 a lisinopril AdvReac Intermediate Cough Verified 12/02/23 03:08 simvastatin [From Zocor] AdvReac Intermediate Muscle Pain Verified 12/02/23 03:08 sitagliptin [From Januvia] AdvReac Intermediate restlessnes Verified 12/02/23 03:08 s Fkhjxzk-SIM-QhD Reductase AdvReac Intermediate INTOLERANCE Verified 12/02/23 03:08 Inhibitor PER [Cpcwege-Tjn-Mso Reductase ADAN--MYALGIAS Inhibitor] citalopram AdvReac Unknown Unknown Verified 12/02/23 03:08 Home Medications Medication Instructions Recorded Confirmed Type allopurinol 100 mg tablet 100 mg PO QAM 02/25/18 12/02/23 History levothyroxine 150 mcg tablet 150 mcg PO DAILYBB 08/12/20 12/02/23 History torsemide 100 mg tablet 100 mg PO QAM 08/29/22 12/02/23 History albuterol sulfate 90 mcg/actuation 2 puff inhalation Q4 PRN Wheezing 08/22/23 12/02/23 History aerosol inhaler apixaban 2.5 mg tablet (Eliquis) 2.5 mg PO AMHS 08/22/23 12/02/23 History buspirone 5 mg tablet 5 mg PO Q4 PRN Anxiety 08/22/23 12/02/23 History glipizide 10 mg tablet 10 mg PO AMHS 08/22/23 12/02/23 History hydrocodone 5 mg-acetaminophen 325 1 tab PO Q6 PRN Pain 08/22/23 12/02/23 History mg tablet lactulose 10 gram/15 mL oral 15 ml PO BID PRN severe 08/22/23 12/02/23 History solution constipation potassium chloride 10 mEq 20 meq PO QAM 08/22/23 12/02/23 History tablet,extended release(part/cryst) terazosin 1 mg capsule 1 mg PO HS 08/22/23 12/02/23 History vitamin B complex-vitamin C-folic 1 tab PO DAILY 08/22/23 12/02/23 History acid 0.8 mg tablet (Jessie-Joycelyn) cholecalciferol (vitamin D3) 25 50 mcg PO QAM 11/16/23 12/02/23 History mcg (1,000 unit) tablet (Vitamin D3) hydrocortisone 2.5 % topical cream 1 applic [place] BID PRN Hemorrhoids 11/16/23 12/02/23 History with perineal applicator (Anusol-HC) ondansetron 4 mg disintegrating 4 mg translingual Q8 PRN Nausea 11/16/23 12/02/23 History tablet metoprolol succinate 25 mg 25 mg PO QAM 12/02/23 12/02/23 History tablet,extended release 24 hr vitamin B complex 1 tab PO DAILY 12/02/23 12/02/23 History Patient History Medical History Gout Pulmonary hypertension LBBB (left bundle branch block) COPD (chronic obstructive pulmonary disease) Spinal stenosis Family History Other Diabetes Hypertension Social History Smoking Status: Former smoker Tobacco Type: Cigarettes Cigarettes Per Day: 10; Smoking End Date: 35 yrs ago; Second Hand Exposure: No; Do You Dip or Chew Tobacco: No; Tobacco Cessation Education Requested by Patient: No Hx Alcohol Use: No Hx Substance Use: No Preferred Language: Chinese Communication Ability: Effective Rehab Trainer Required: No Beliefs That Will Affect Care: None marital status: Current Living Situation: Spouse Other Information That Helps Us Care for You: No Feels Safe at Home: Yes Safety Concerns: Feels Safe At This Time Assistive Devices: Walker Review of Systems Constitutional: no fever and no chills Gastrointestinal: + blood in stools; no abdominal pain Physical Exam Constitutional: well developed Respiratory: normal respiratory effort Gastrointestinal (Abdomen): normal bowel sounds, soft, nontender, no hepatosplenomegaly Psychiatric: Orientation: alert and oriented x 3 Results & Data Vital Signs (Past 12 Hours) Vital Signs Temp Pulse Pulse Pulse Resp BP BP 12/02/23 11:23 36.8 C 90 16 91/63 L 12/02/23 08:10 36.8 C 99 H 17 12/02/23 06:18 36.8 C 108 H 22 12/02/23 06:02 103 H 12/02/23 05:51 36.8 C 103 H 18 12/02/23 04:00 112 H 19 12/02/23 03:12 12/02/23 03:03 113 H 12/02/23 03:03 37.3 C 109 H 23 84/52 L BP Pulse Ox O2 Del Method 12/02/23 11:23 94 Room Air 12/02/23 08:10 94/61 L 96 Room Air 12/02/23 06:18 89/68 L 94 Room Air 12/02/23 06:02 12/02/23 05:51 89/48 L 94 Room Air 12/02/23 04:00 93/62 L 92 Room Air 12/02/23 03:12 94 Room Air 12/02/23 03:03 12/02/23 03:03 93 Room Air PG Care Time/CCT Total # of Minutes Spent Total Time Spent with Patient: Total time spent is greater than 50% in coordination of care (as documented) at patient's floor/unit and/or counseling patient: Coding Level of Care Code 75681 INT INP/OBS CARE 3/75MIN Diagnoses BRBPR (bright red blood per rectum) K62.5
[2023-12-02] MEDS: HYDROCORTISONE ACETATE 25 MG SUPP PR SCH (13:07)
[2023-12-02] MEDS: PIPERACILLIN/TAZOBACTAM 4.5 GM in DEXTROSE 5% MINI-B 100 ML IV SCH (15:54)
--- NOTE | 2023-12-02 16:44 | Hospitalist Progress Note ---
Date of Service December 02, 2023 Assessment & Plan (1) Hypotension: Plan: Bright red blood per rectum DD likely from diverticulosis, hemorrhoids H/O recent diverticulitis with microperforation --CT ABD:Sigmoid colonic diverticulosis without evidence of diverticulitis. Small amount of free fluid in the pelvis. Free air in the right upper abdomen which could be related to the peritoneal dialysis catheter Eliquis on hold Started on hydrocortisone suppository Will need colonoscopy as outpatient Monitor H&H and transfuse as needed Appreciate GI input Hypotension Rule out infectious cause: No clear source Elevated procalcitonin Received IV fluids Torsemide on hold Peritoneal fluid culture pending Blood culture pending Empirically on IV Zosyn No aggressive IV fluid given end-stage renal disease on PD Started on low-dose midodrine Chronic troponin elevation Likely due to renal insufficiency Denies any chest pain, dyspnea Acute on chronic hyponatremia Likely due to diuretics Sodium 130 today Monitor Hypokalemia Monitor and replete electrolytes Abdominal pain Unclear etiology CT abdomen as above Monitor Chronic diastolic heart failure valvular heart disease (mild AR/TR) chronic LBBB Aortic root enlargement Continue dialysis per nephrology Appreciate nephrology input Monitor volume status COPD No signs of exacerbation Saturating well on room air ESRD Continue dialysis per nephrology Thyroid Cancer S/P surgery Postsurgical hypothyroidism Normal TSH Continue levothyroxine Prostate cancer BPH Monitor for urinary retention Terazosin on hold due to low BP A-fib RVR H/O Persistent atrial fibrillation Continue metoprolol Eliquis on hold due to GI bleed Mood disorder Continue home medications Medical noncompliance per record Counseled about medication compliance Generalized deconditioning Fall precautions PT OT DVT Px: SCDs Re: GI bleed CODE STATUS DNI DNR Admission and Anticipated Discharge Date Admission Date: December 02, 2023 Subjective Patient is seen and examined at bedside Reports intermittent abdominal pain, no pain during my encounter Reports having small bloody bowel movement overnight Has generalized weakness Discussed with nephrology today Denies any chest pain, dyspnea No other complaints Review of Systems Review of Systems: All systems reviewed & are unremarkable except as noted in Subjective Physical Exam Physical Exam: Physical Exam: Vitals signs as noted above General Appearance:Moderately built and nourished, no apparent distress Head: normocephalic, Atraumatic Eyes: normal inspection, EOMI Neck: supple, Trachea midline Respiratory/Chest: Normal breath sounds, CTA, No accessory muscle use Cardiovascular: Irregularly irregular, No murmur Abdomen/GI:Soft, non tender, Bowel sounds present,+PD catheter Extremities/Musculoskeletal:normal inspection, 1+ edema, left foot wound in dressing Neurologic/Psych:AAOX3, grossly no focal neurological deficits Skin: normal color, warm Results & Data Results & Data Vital Signs (Past 12 Hours) Vital Signs Temp Pulse Pulse Pulse Resp BP BP 12/02/23 16:00 36.7 C 91 H 16 90/48 L 12/02/23 15:11 36.6 C 84 16 91/52 L 12/02/23 11:23 36.8 C 90 16 91/63 L 12/02/23 08:10 36.8 C 99 H 17 94/61 L 12/02/23 06:18 36.8 C 108 H 22 89/68 L 12/02/23 06:02 103 H 12/02/23 05:51 36.8 C 103 H 18 89/48 L Pulse Ox O2 Del Method 12/02/23 16:00 12/02/23 15:11 95 Room Air 12/02/23 11:23 94 Room Air 12/02/23 08:10 96 Room Air 12/02/23 06:18 94 Room Air 12/02/23 06:02 12/02/23 05:51 94 Room Air Laboratory Results Short CBC 12/02/23 12/02/23 Range/Units 03:05 05:05 WBC 10.52 (4.8-10.8) K/ul Hgb 9.6 L 9.6 L (14.0-18.0) g/dl Hct 28.4 L 28.4 L (42.0-52.0) % Plt Count 282 (130-400) K/uL BMP 12/02/23 03:05 Sodium 130 L Potassium 3.9 Chloride 93 L Carbon Dioxide 21 BUN 57 H Creatinine 8.89 H* Glucose 144 H Calcium 8.7 Liver Function 12/02/23 Range/Units 03:05 Total Bilirubin 0.4 (0.2-1.0) mg/dl AST 16 (13-39) U/L ALT 18 (7-52) U/L Alkaline Phosphatase 109 H (34-104) U/L Albumin 3.2 L (3.4-5.0) gm/dl (1) Hypotension Hypotension type: unspecified hypotension type Qualified Code(s): I95.9 - Hypotension, unspecified
[2023-12-02 16:48] LABS: Appearance Peritoneal Fluid Slightly Hazy; Color Peritoneal Fluid Colorless; Eosinophils, Fluid 1 %; Lymphocytes, Fluid 11 %; Mono,Macrophage,Mesothelial 55 %; Neutrophils, Fluid 33 %; RBC Peritoneal Fluid Auto < 2000 /uL; WBC Peritoneal Fluid Auto 132 /ul (0-300)
[2023-12-02] MEDS ORDERED: ARTIFICIAL TEARS OPB PRN (18:06)
[2023-12-02] MEDS: oxyCODONE HCL IR 5 MG TAB (IMMEDIATE RELEASE) PO PRN (19:42)
[2023-12-02] MEDS: busPIRone 5 MG TAB PO PRN (20:01)
[2023-12-02 20:47] LABS: Hematocrit (blood only) 26.8 % (42.0-52.0)
[2023-12-02] MEDS: CARBOHYDRATES FOR HYPOGLYCEMIA PO PRN (22:43)
[2023-12-02] MEDS: DEXTROSE 50% 50 ML SYRINGE IV PRN (23:08)
[2023-12-03] MEDS ORDERED: Nursing to Pharmacy Communication SCH (03:45)
[2023-12-03] MEDS: DIGOXIN 125 MCG in SYRINGE 9.5 ML IV ONE (05:20)
[2023-12-03] MEDS: MAGNESIUM SULFATE / D5W 1 GM/100 ML BAG IV ONE (05:47)
[2023-12-03 06:48] LABS: Basophils # (auto) 0.06 K/uL (0.00-0.20); Basophils % (auto) 0.5 %; Eosinophils # (auto) 0.12 K/uL (0.00-0.50); Eosinophils % (auto) 1.1 %; Hematocrit (blood only) 28.3 % (42.0-52.0); Hemoglobin 9.4 g/dl (14.0-18.0); Immature Granulocytes # (auto) 0.19 K/uL (0.01-0.20); Immature Granulocytes % (auto) 1.7 %; Lymphocytes # (auto) 0.65 K/uL (1.20-3.40); Lymphocytes % (auto) 5.8 %; Mean Corpuscular Hemoglobin 31.1 pg (25.0-34.0); Mean Corpuscular Hgb Conc 33.2 g/dL (32.0-36.0); Mean Corpuscular Volume 93.7 fL (80.0-100.0); Mean Platelet Volume 9.6 fL (9.4-12.4); Monocytes % (auto) 8.8 %; Neutrophils # (auto) 9.28 K/uL (1.40-6.50); Neutrophils % (auto) 82.1 %; Platelet Count 278 K/uL (130-400); RDW Coefficient of Variation 15.2 % (11.5-14.5); RDW Standard Deviation 50.8 fL (36.4-46.3); Red Blood Count 3.02 M/uL (4.70-6.10)
[2023-12-03 07:05] LABS: BUN Creatinine Ratio 6.8 (10-20); Calcium 8.8 mg/dl (8.6-10.3); Creatinine Clr Calc Pharmacy 7.4 ml/min; Est GFR (African American) 6.4 ml/min; Est GFR (Non-African American) 5.5 ml/min; Potassium 3.7 mmol/L (3.5-5.1)
--- NOTE | 2023-12-03 09:58 | Dialysis Progress Note ---
Date of Service December 03, 2023 Assessment & Plan Admission and Anticipated Discharge Date Admission Date: December 02, 2023 Subjective Assessment & Plan (1) End-stage renal disease on peritoneal dialysis: he does CAPD about 4 exchanges per day. Will switch to CCPD of 4 exchanges of all 1.5% today. Slightly low na is expected in ESRD patient. other lytes are fine. No e/o vol overload. will not try to take much UF tonight. But he is anuric so do need dialysis for clearance. No need of Iv fluid patient feels miserable. Says wants to stop Dialysis and . he has said this before also but seems more assertive this time. worth noting he does not have any terminal Dx as such and there is nothing currently making dialysis difficult. His issues are --Severe anxiety/Some depression/Chronic back pain/weakness. But Will respect his wish and do palliative med consult. (2) Hypotension: r/o sepsis. all c/s are negative which was expected. more likely related with volume than anything Also Check PD fluid for Cell count. gram and c/s to rule out peritonitis--clinically does not appear so. Total WBC is 133 ( abnormal but significant interference from recent Divert iculitis and microperf) WBC is only 33% ( so less than 50%) Also Gram stain and C/s---negative. I thinking treating him with this feature will be overkill and that in itself has issues and complications. (3) Weakness: multifactorial. could be related with deconditioning/Depression but also has low BP currently. S---Seen for PD. had 1200 ml UF. No issues with PD. patient feels miserable. Says wants to stop Dialysis and . vague Symptoms of weakness and feeling bad. Occ diarrhea and Bleeding Stool. Poor appetite. But no SOB, N,v, fever. Physical Exam Physical Exam: GENERAL: Comfortable, Awake and alert normal speech, no respiratory distress SKIN: No rash HEENT: Pale palpebral conjunctivae, no ptosis, dry buccal mucosa NECK : Supple, no tenderness CHEST : CTA, no tenderness HEART : Irregular, no murmur ABDOMEN: Soft and minimal tenderness EXTREMITIES : No LE swelling/tenderness NEUROLOGIC : Coherent, no facial asymmetry, no other gross focality Results & Data Vital Signs (Past 12 Hours) Vital Signs Temp Pulse Pulse Resp BP BP Pulse Ox 12/03/23 08:25 37.0 C 99 H 20 12/03/23 07:06 37.0 C 102 H 20 100/63 97 12/03/23 04:56 36.6 C 107 H 22 106/81 96 12/03/23 04:12 108 H 106/81 12/02/23 22:36 36.9 C 97 H 18 100/72 96 O2 Del Method 12/03/23 08:25 12/03/23 07:06 Room Air 12/03/23 04:56 Room Air 12/03/23 04:12 12/02/23 22:36 Room Air
--- NOTE | 2023-12-03 13:14 | Palliative Care Consultation ---
Date of Consultation December 03, 2023 Assessment & Plan (1) Weakness generalized: (2) Shoulder pain, bilateral: Currently receiving oxycodone 5 mg p.o. every 4 hours as needed. Patient states this is providing good relief to his pain and does not feel the dose needs to be adjusted at this time. (3) Back pain: (4) Myofascial pain: (5) Advanced care planning/counseling discussion: 30-minute [id number] advance care planning discussion was held with patient at bedside today. There is no other family present. He tells me that he has had countless episodes in the past where he wanted to stop dialysis but had always acquiesced to his 's wishes to continue. However, over the last year, his life is continue to steady decline to where he feels his quality life is overall, "miserable." He states that he has more bad days than good days. Very few good days that he can even recall. His life seems to revolve around dialysis and then recovering from the side effects or toxicities of dialysis. He does not feel that he has a meaningful quality of life and feels that overall he does not want to live this way. He does not want to have to continue dialysis he does not want to have to continue taking the medications for his very extremities and wishes to kind of transition to a focus that is more about his comfort, quality of life, and minimize any suffering or distress. He had several questions about what to expect with the cessation of dialysis.Pt educated re EOL w/ESRD: Pt stopping dialysis may live anywhere from one week to several weeks, depending on the amount of kidney function they have left and their overall medical condition. In hospitalized patients who stopped dialysis, confusion/agitation was reported to affect 70% of patients, followed by pain (55%), dyspnea (48%), nausea (36%), twitching/seizures (27%), anxiety/psychological distress (27%), pruritus (24%), and peripheral edema (21%). Advised that mean survival following dialysis withdrawal is 8-10 days (although rarely can be many weeks); would note that advanced age, multiple comorbiditie s+frailty, I anticipate this will be shorter anticipated survival. Encouraged that he notify others who may want to visit or speak with pt, as periods of lucidity will decline as ESRD progresses along this EOL trajectory. I addressed the likelihood of progressive encephalopathy. Reassured patient/family that symptoms can be adequately treated but drugs with sedating side effects may be necessary to ensure comfort. Discussed diet: provide pt with a liberal, pleasure-based diet to focus on comfort and QOL, acknowledging that this may worsen symptoms from edema. I asked him several times if perhaps this is a conversation we should have when his is at the bedside. He replied "no, I have not really made up my mind this time and I am sticking to it. I know she does not want me to stop but she is not the one os to live this way and live with what I am going through. I am not doing any more dialysis. I have decided and that has that." In all likelihood, he will remain in the hospital through the weekend. Recommend that we see how he does through the weekend and if he asks to have a dialysis session. Will reassess on Wednesday and try to meet with both him and his together if possible. We did discuss the options of going from the hospital to a group home for comfort care/end-of-life care versus home with hospice. He is very firm that he does not want to go anywhere but home but would be willing to accept hospice nursing support at home so that he is able to have his symptoms managed and remain in his home. He states he lives in a trailer home that he shares with his , no pets, all 1 floor living, and no acute issues. (6) Palliative care by specialist: Discussed Palliative Medicine provides specialized medical care for patients with a serious illness. We offer a focus on quality of life through reduction of symptom burden/more control over their illness, for patients and their family. Palliative Medicine interventions can be given along with curative treatment. I specifically clarified we are not hospice, which is a visiting nurse service that focuses on care delivered at the very end of life. Plan As above. Thank you for allowing us to participate in the ongoing care of this patient. Please page with any additional concerns. Deepa Rodriguez DNP Director, Palliative Medicine History of Present Illness Reason for Consultation: pt wants to stop HD Attending Physician: Lake Valente MD History of Present Illness Brady is an 83yo male admitted 12/02/23 for hypotension, weakness, elevated troponin, anemia. He is a home dialysis patient. In the emergency department, he reported feeling weakness and this is why he activated 911. Evaluation revealed no leukocytosis. He is anemic, chronically so. Platelet counts were normal. He did not have any evidence of coagulopathy. Lactic acid was not elevated. Infection was not suspected. Chest x-ray did not indicate any findings consistent with an exacerbation of heart failure or a new pneumonia. He was given a liter and a half of IV saline with some improvement in his blood pressure and then admitted. recent admission 11/15 - 11/21/23 for acute diverticulitis Another admission is noted for 08/22/2023 through 09/04/2023. At that time, he was admitted with alteration in mental status and tremors. There was a report that he may have taken too many baclofen tablets-it is unclear if this may have been a suicide attempt by overdose.. He had complained of significant bad muscle spasms to the back. Pain management consult was ordered at that time. Recommendations were to continue Tylenol and lidocaine patches, no interventional options available, and to avoid the use of opioids and muscle relaxers due to the baclofen overdose. PMH: type 2 diabetes, hypothyroidism, hyperlipidemia, hyperparathyroidism secondary to renal disease, cyst of pancreas, postoperative hypothyroidism, hypokalemia, end-stage renal disease on peritoneal dialysis, history of COPD, chronic diastolic CHF, left ventricular hypertrophy, hypertension, left bundle branch block, enlargement of aortic root, pulmonary hypertension, persistent atrial fibrillation, GERD, iron deficiency anemia, panic disorder, anxiety disorder, thyroid cancer, prostate cancer, hyponatremia. His home peritoneal dialysis regimen consists of 4 exchanges per day. At the time of my evaluation, patient is sitting out of bed to chair in a recliner at the bedside. There is no family present. He tells me that overall he has a very poor quality of life and generally feels "miserable.". He has had earlier conversations today with nephrology and feels that he wants to stop dialysis. He has expressed this wish in the past and then change his mind after pressure from his family especially his . He notes that this time, his overall quality of life has been steadily declining. He states that overall his life basically consists of doing his dialysis, and then dealing with the side effects of dialysis, end-stage renal disease, and his other chronic comorbidities. He is tired and weak all the time. He has no particular enjoyment throughout his day and generally feels most days are bad days. He tells me that he knows his does not want him to stop dialysis however he has made up his mind because this is his life that is feeling miserable all the time he does not want to continue living in the suboptimal/unacceptable way. He would like more conversation and education about what to expect when dialysis is stopped. Allergies Allergy/AdvReac Type Severity Reaction Status Date / Time carvedilol Allergy Intermediate Hives Verified 12/02/23 03:08 losartan Allergy Unknown Unknown Verified 12/02/23 03:08 ANJELICA Inhibitors AdvReac Intermediate INTOLERANCE Verified 12/02/23 03:08 PER MD ORDER allopurinol AdvReac Intermediate severe abd Verified 12/02/23 03:08 pain Beta-Blockers AdvReac Intermediate INTOLERANCE Verified 12/02/23 03:08 (Beta-Adrenergic Bloc PER DR ARELLANO clonidine AdvReac Intermediate allergic Verified 12/02/23 03:08 to all but 1 brand doxazosin AdvReac Intermediate INTOLERANCE Verified 12/02/23 03:[address] ARELLANO hydralazine AdvReac Intermediate diarrhea, Verified 12/02/23 03:08 testicular pain hydrochlorothiazide AdvReac Intermediate hyponatremi Verified 12/02/23 03:08 a lisinopril AdvReac Intermediate Cough Verified 12/02/23 03:08 simvastatin [From Zocor] AdvReac Intermediate Muscle Pain Verified 12/02/23 03:08 sitagliptin [From Januvia] AdvReac Intermediate restlessnes Verified 12/02/23 03:08 s Mgxweqf-NLI-DzB Reductase AdvReac Intermediate INTOLERANCE Verified 12/02/23 03:08 Inhibitor PER [Vcdbtnz-Wey-Zjs Reductase ADAN--MYALGIAS Inhibitor] citalopram AdvReac Unknown Unknown Verified 12/02/23 03:08 Home Medications Medication Instructions Recorded Confirmed Type allopurinol 100 mg tablet 100 mg PO QAM 02/25/18 12/02/23 History levothyroxine 150 mcg tablet 150 mcg PO DAILYBB 08/12/20 12/02/23 History torsemide 100 mg tablet 100 mg PO QAM 08/29/22 12/02/23 History albuterol sulfate 90 mcg/actuation 2 puff inhalation Q4 PRN Wheezing 08/22/23 12/02/23 History aerosol inhaler apixaban 2.5 mg tablet (Eliquis) 2.5 mg PO AMHS 08/22/23 12/02/23 History buspirone 5 mg tablet 5 mg PO Q4 PRN Anxiety 08/22/23 12/02/23 History glipizide 10 mg tablet 10 mg PO AMHS 08/22/23 12/02/23 History hydrocodone 5 mg-acetaminophen 325 1 tab PO Q6 PRN Pain 08/22/23 12/02/23 History mg tablet lactulose 10 gram/15 mL oral 15 ml PO BID PRN severe 08/22/23 12/02/23 History solution constipation potassium chloride 10 mEq 20 meq PO QAM 08/22/23 12/02/23 History tablet,extended release(part/cryst) terazosin 1 mg capsule 1 mg PO HS 08/22/23 12/02/23 History vitamin B complex-vitamin C-folic 1 tab PO DAILY 08/22/23 12/02/23 History acid 0.8 mg tablet (Jessie-Joycelyn) cholecalciferol (vitamin D3) 25 50 mcg PO QAM 11/16/23 12/02/23 History mcg (1,000 unit) tablet (Vitamin D3) hydrocortisone 2.5 % topical cream 1 applic AR BID PRN Hemorrhoids 11/16/23 12/02/23 History with perineal applicator (Anusol-HC) ondansetron 4 mg disintegrating 4 mg translingual Q8 PRN Nausea 11/16/23 12/02/23 History tablet metoprolol succinate 25 mg 25 mg PO QAM 12/02/23 12/02/23 History tablet,extended release 24 hr vitamin B complex 1 tab PO DAILY 12/02/23 12/02/23 History Patient History Medical History Gout Pulmonary hypertension LBBB (left bundle branch block) COPD (chronic obstructive pulmonary disease) Spinal stenosis Family History Other Diabetes Hypertension Social History Smoking Status: Former smoker Tobacco Type: Cigarettes Cigarettes Per Day: 10; Smoking End Date: 35 yrs ago; Second Hand Exposure: No; Do You Dip or Chew Tobacco: No; Tobacco Cessation Education Requested by Patient: No Hx Alcohol Use: No Hx Substance Use: No Preferred Language: [place] Communication Ability: Effective Forwarder Operator Required: No Beliefs That Will Affect Care: None marital status: Current Living Situation: Spouse Other Information That Helps Us Care for You: No Feels Safe at Home: Yes Safety Concerns: Feels Safe At This Time Assistive Devices: Walker Review of Systems Review of Systems: All systems reviewed & are unremarkable except as noted in Subjective Physical Exam Physical Exam: Chronically ill-appearing elderly male, out of bed to chair. Bitemporal wasting. PERRLA, EOMI's. Pharynx pink, dentition fair, mucosa slightly moist. Neck is supple, without stridor, no gross JVD. Respiratory effort normal at rest. No conversational dyspnea noted. Lungs are diminished bilaterally but otherwise clear. There is no gross wheezing, rales, rhonchi. Heart tones S1-S2. Rhythm is irregularly irregular. Abdomen is soft, scaphoid and nontender. Bowel sounds are present. Extremities with + venous insufficiency changes, no edema, nontender. He is awake alert oriented x 3. Skin is pale, warm to touch. There is no obvious clubbing, cyanosis or mottling. Results & Data Vital Signs (Past 12 Hours) Vital Signs Temp Pulse Pulse Resp BP BP Pulse Ox 12/03/23 11:41 36.5 C 92 H 16 94/62 L 97 12/03/23 08:25 37.0 C 99 H 20 12/03/23 07:06 37.0 C 102 H 20 100/63 97 12/03/23 04:56 36.6 C 107 H 22 106/81 96 12/03/23 04:12 108 H 106/81 O2 Del Method 12/03/23 11:41 Room Air 12/03/23 08:25 12/03/23 07:06 Room Air 12/03/23 04:56 Room Air 12/03/23 04:12 Laboratory Results 12/03/23 12/03/23 12/03/23 Range/Units 12:05 11:25 11:24 WBC (4.8-10.8) K/ul RBC (4.70-6.10) M/uL Hgb (14.0-18.0) g/dl Hct (42.0-52.0) % MCV (80.0-100.0) fL MCH (25.0-34.0) pg MCHC (32.0-36.0) g/dL RDW Std Deviation (36.4-46.3) fL RDW Coeff of Pooja (11.5-14.5) % Plt Count (130-400) K/uL MPV (9.4-12.4) fL Immature Gran % (Auto) % Neut % (Auto) % Lymph % (Auto) % [place] % (Auto) % Eos % (Auto) % Baso % (Auto) % Neut # (Auto) (1.40-6.50) K/uL Lymph # (Auto) (1.20-3.40) K/uL [place] # (Auto) (0.11-0.59) K/uL Eos # (Auto) (0.00-0.50) K/uL Baso # (Auto) (0.00-0.20) K/uL Immature Gran # (Auto) (0.01-0.20) K/uL PT (9.0-12.0) Seconds INR (0.9-1.1) APTT (21-31) Seconds PTT Ratio Sodium (136-145) mmol/L Potassium (3.5-5.1) mmol/L Chloride (98-107) mmol/L Carbon Dioxide (21-32) mmol/L Anion Gap (3-11) BUN (6-23) mg/dl Creatinine (0.6-1.4) mg/dl Est Cr Clr Drug Dosing ml/min Est GFR ( Amer) ml/min Est GFR (Non-Af Amer) ml/min BUN/Creatinine Ratio (10-20) Glucose (70-99(Fasting)) mg/dl POC Glucose 73 60 L* 62 L* (70-99) mg/dl Lactate (0.4-2.0) mmol/L Calcium (8.6-10.3) mg/dl Phosphorus (2.5-4.9) mg/dl Magnesium (1.7-2.4) mg/dl Total Bilirubin (0.2-1.0) mg/dl AST (13-39) U/L ALT (7-52) U/L Alkaline Phosphatase (34-104) U/L Troponin I High Sens (0-20) pg/ml Total Protein (6.0-8.3) gm/dl Albumin (3.4-5.0) gm/dl Globulin (2.5-4.0) gm/dl Albumin/Globulin Ratio (0.9-2) Procalcitonin (0-0.5) ng/ml TSH (0.300-4.500) uIu/ml Fluid Neutrophils % % Fluid Lymphocytes % % Fluid Eosinophils % % Fluid Meso/Macro/[place] % % Fluid Comment Peritoneal Color Peritoneal Appearance Peritoneal WBC (Auto) (0-300) /ul Peritoneal RBC (Auto) /uL Blood Type Antibody Screen 12/03/23 12/03/23 12/02/23 Range/Units 07:10 05:52 23:24 WBC 11.30 H (4.8-10.8) K/ul RBC 3.02 L (4.70-6.10) M/uL Hgb 9.4 L (14.0-18.0) g/dl Hct 28.3 L (42.0-52.0) % MCV 93.7 (80.0-100.0) fL MCH 31.1 (25.0-34.0) pg MCHC 33.2 (32.0-36.0) g/dL RDW Std Deviation 50.8 H (36.4-46.3) fL RDW Coeff of Pooja 15.2 H (11.5-14.5) % Plt Count 278 (130-400) K/uL MPV 9.6 (9.4-12.4) fL Immature Gran % (Auto) 1.7 % Neut % (Auto) 82.1 % Lymph % (Auto) 5.8 % [place] % (Auto) 8.8 % Eos % (Auto) 1.1 % Baso % (Auto) 0.5 % Neut # (Auto) 9.28 H (1.40-6.50) K/uL Lymph # (Auto) 0.65 L (1.20-3.40) K/uL [place] # (Auto) 1.00 H (0.11-0.59) K/uL Eos # (Auto) 0.12 (0.00-0.50) K/uL Baso # (Auto) 0.06 (0.00-0.20) K/uL Immature Gran # (Auto) 0.19 (0.01-0.20) K/uL PT (9.0-12.0) Seconds INR (0.9-1.1) APTT (21-31) Seconds PTT Ratio Sodium 131 L (136-145) mmol/L Potassium 3.7 (3.5-5.1) mmol/L Chloride 94 L (98-107) mmol/L Carbon Dioxide 22 (21-32) mmol/L Anion Gap 15 H (3-11) BUN 55 H (6-23) mg/dl Creatinine 8.13 H* D (0.6-1.4) mg/dl Est Cr Clr Drug Dosing 7.4 ml/min Est GFR ( Amer) 6.4 ml/min Est GFR (Non-Af Amer) 5.5 ml/min BUN/Creatinine Ratio 6.8 L (10-20) Glucose 62 L (70-99(Fasting)) mg/dl POC Glucose 70 113 H (70-99) mg/dl Lactate (0.4-2.0) mmol/L Calcium 8.8 (8.6-10.3) mg/dl Phosphorus (2.5-4.9) mg/dl Magnesium (1.7-2.4) mg/dl Total Bilirubin (0.2-1.0) mg/dl AST (13-39) U/L ALT (7-52) U/L Alkaline Phosphatase (34-104) U/L Troponin I High Sens (0-20) pg/ml Total Protein (6.0-8.3) gm/dl Albumin (3.4-5.0) gm/dl Globulin (2.5-4.0) gm/dl Albumin/Globulin Ratio (0.9-2) Procalcitonin (0-0.5) ng/ml TSH (0.300-4.500) uIu/ml Fluid Neutrophils % % Fluid Lymphocytes % % Fluid Eosinophils % % Fluid Meso/Macro/[place] % % Fluid Comment Peritoneal Color Peritoneal Appearance Peritoneal WBC (Auto) (0-300) /ul Peritoneal RBC (Auto) /uL Blood Type Antibody Screen 12/02/23 12/02/23 12/02/23 Range/Units 23:04 22:38 20:25 WBC (4.8-10.8) K/ul RBC (4.70-6.10) M/uL Hgb (14.0-18.0) g/dl Hct (42.0-52.0) % MCV (80.0-100.0) fL MCH (25.0-34.0) pg MCHC (32.0-36.0) g/dL RDW Std Deviation (36.4-46.3) fL RDW Coeff of Pooja (11.5-14.5) % Plt Count (130-400) K/uL MPV (9.4-12.4) fL Immature Gran % (Auto) % Neut % (Auto) % Lymph % (Auto) % [place] % (Auto) % Eos % (Auto) % Baso % (Auto) % Neut # (Auto) (1.40-6.50) K/uL Lymph # (Auto) (1.20-3.40) K/uL [place] # (Auto) (0.11-0.59) K/uL Eos # (Auto) (0.00-0.50) K/uL Baso # (Auto) (0.00-0.20) K/uL Immature Gran # (Auto) (0.01-0.20) K/uL PT (9.0-12.0) Seconds INR (0.9-1.1) APTT (21-31) Seconds PTT Ratio Sodium (136-145) mmol/L Potassium (3.5-5.1) mmol/L Chloride (98-107) mmol/L Carbon Dioxide (21-32) mmol/L Anion Gap (3-11) BUN (6-23) mg/dl Creatinine (0.6-1.4) mg/dl Est Cr Clr Drug Dosing ml/min Est GFR ( Amer) ml/min Est GFR (Non-Af Amer) ml/min BUN/Creatinine Ratio (10-20) Glucose (70-99(Fasting)) mg/dl POC Glucose 64 L* 63 L* 64 L* (70-99) mg/dl Lactate (0.4-2.0) mmol/L Calcium (8.6-10.3) mg/dl Phosphorus (2.5-4.9) mg/dl Magnesium (1.7-2.4) mg/dl Total Bilirubin (0.2-1.0) mg/dl AST (13-39) U/L ALT (7-52) U/L Alkaline Phosphatase (34-104) U/L Troponin I High Sens (0-20) pg/ml Total Protein (6.0-8.3) gm/dl Albumin (3.4-5.0) gm/dl Globulin (2.5-4.0) gm/dl Albumin/Globulin Ratio (0.9-2) Procalcitonin (0-0.5) ng/ml TSH (0.300-4.500) uIu/ml Fluid Neutrophils % % Fluid Lymphocytes % % Fluid Eosinophils % % Fluid Meso/Macro/[place] % % Fluid Comment Peritoneal Color Peritoneal Appearance Peritoneal WBC (Auto) (0-300) /ul Peritoneal RBC (Auto) /uL Blood Type Antibody Screen 12/02/23 12/02/23 12/02/23 Range/Units 20:11 16:26 15:35 WBC (4.8-10.8) K/ul RBC (4.70-6.10) M/uL Hgb 9.0 L (14.0-18.0) g/dl Hct 26.8 L (42.0-52.0) % MCV (80.0-100.0) fL MCH (25.0-34.0) pg MCHC (32.0-36.0) g/dL RDW Std Deviation (36.4-46.3) fL RDW Coeff of Pooja (11.5-14.5) % Plt Count (130-400) K/uL MPV (9.4-12.4) fL Immature Gran % (Auto) % Neut % (Auto) % Lymph % (Auto) % [place] % (Auto) % Eos % (Auto) % Baso % (Auto) % Neut # (Auto) (1.40-6.50) K/uL Lymph # (Auto) (1.20-3.40) K/uL [place] # (Auto) (0.11-0.59) K/uL Eos # (Auto) (0.00-0.50) K/uL Baso # (Auto) (0.00-0.20) K/uL Immature Gran # (Auto) (0.01-0.20) K/uL PT (9.0-12.0) Seconds INR (0.9-1.1) APTT (21-31) Seconds PTT Ratio Sodium (136-145) mmol/L Potassium (3.5-5.1) mmol/L Chloride (98-107) mmol/L Carbon Dioxide (21-32) mmol/L Anion Gap (3-11) BUN (6-23) mg/dl Creatinine (0.6-1.4) mg/dl Est Cr Clr Drug Dosing ml/min Est GFR ( Amer) ml/min Est GFR (Non-Af Amer) ml/min BUN/Creatinine Ratio (10-20) Glucose (70-99(Fasting)) mg/dl POC Glucose 82 (70-99) mg/dl Lactate (0.4-2.0) mmol/L Calcium (8.6-10.3) mg/dl Phosphorus (2.5-4.9) mg/dl Magnesium (1.7-2.4) mg/dl Total Bilirubin (0.2-1.0) mg/dl AST (13-39) U/L ALT (7-52) U/L Alkaline Phosphatase (34-104) U/L Troponin I High Sens (0-20) pg/ml Total Protein (6.0-8.3) gm/dl Albumin (3.4-5.0) gm/dl Globulin (2.5-4.0) gm/dl Albumin/Globulin Ratio (0.9-2) Procalcitonin (0-0.5) ng/ml TSH (0.300-4.500) uIu/ml Fluid Neutrophils % 33 % Fluid Lymphocytes % 11 % Fluid Eosinophils % 1 % Fluid Meso/Macro/[place] % 55 % Fluid Comment Peritoneal Color Colorless Peritoneal Appearance Slightly Hazy Peritoneal WBC (Auto) 132 (0-300) /ul Peritoneal RBC (Auto) < 2000 /uL Blood Type Antibody Screen 12/02/23 12/02/23 12/02/23 Range/Units 11:00 07:25 05:05 WBC (4.8-10.8) K/ul RBC (4.70-6.10) M/uL Hgb 9.6 L (14.0-18.0) g/dl Hct 28.4 L (42.0-52.0) % MCV (80.0-100.0) fL MCH (25.0-34.0) pg MCHC (32.0-36.0) g/dL RDW Std Deviation (36.4-46.3) fL RDW Coeff of Pooja (11.5-14.5) % Plt Count (130-400) K/uL MPV (9.4-12.4) fL Immature Gran % (Auto) % Neut % (Auto) % Lymph % (Auto) % [place] % (Auto) % Eos % (Auto) % Baso % (Auto) % Neut # (Auto) (1.40-6.50) K/uL Lymph # (Auto) (1.20-3.40) K/uL [place] # (Auto) (0.11-0.59) K/uL Eos # (Auto) (0.00-0.50) K/uL Baso # (Auto) (0.00-0.20) K/uL Immature Gran # (Auto) (0.01-0.20) K/uL PT (9.0-12.0) Seconds INR (0.9-1.1) APTT (21-31) Seconds PTT Ratio Sodium (136-145) mmol/L Potassium (3.5-5.1) mmol/L Chloride (98-107) mmol/L Carbon Dioxide (21-32) mmol/L Anion Gap (3-11) BUN (6-23) mg/dl Creatinine (0.6-1.4) mg/dl Est Cr Clr Drug Dosing ml/min Est GFR ( Amer) ml/min Est GFR (Non-Af Amer) ml/min BUN/Creatinine Ratio (10-20) Glucose (70-99(Fasting)) mg/dl POC Glucose 74 146 H (70-99) mg/dl Lactate (0.4-2.0) mmol/L Calcium (8.6-10.3) mg/dl Phosphorus (2.5-4.9) mg/dl Magnesium (1.7-2.4) mg/dl Total Bilirubin (0.2-1.0) mg/dl AST (13-39) U/L ALT (7-52) U/L Alkaline Phosphatase (34-104) U/L Troponin I High Sens 84.1 H* (0-20) pg/ml Total Protein (6.0-8.3) gm/dl Albumin (3.4-5.0) gm/dl Globulin (2.5-4.0) gm/dl Albumin/Globulin Ratio (0.9-2) Procalcitonin 13.50 H (0-0.5) ng/ml TSH (0.300-4.500) uIu/ml Fluid Neutrophils % % Fluid Lymphocytes % % Fluid Eosinophils % % Fluid Meso/Macro/[place] % % Fluid Comment Peritoneal Color Peritoneal Appearance Peritoneal WBC (Auto) (0-300) /ul Peritoneal RBC (Auto) /uL Blood Type B Positive Antibody Screen NEGATIVE 12/02/23 12/02/23 Range/Units 03:19 03:05 WBC 10.52 (4.8-10.8) K/ul RBC 3.05 L (4.70-6.10) M/uL Hgb 9.6 L (14.0-18.0) g/dl Hct 28.4 L (42.0-52.0) % MCV 93.1 (80.0-100.0) fL MCH 31.5 (25.0-34.0) pg MCHC 33.8 (32.0-36.0) g/dL RDW Std Deviation 49.8 H (36.4-46.3) fL RDW Coeff of Pooja 15.1 H (11.5-14.5) % Plt Count 282 (130-400) K/uL MPV 9.7 (9.4-12.4) fL Immature Gran % (Auto) 0.4 % Neut % (Auto) 78.2 % Lymph % (Auto) 9.1 % [place] % (Auto) 10.7 % Eos % (Auto) 1.2 % Baso % (Auto) 0.4 % Neut # (Auto) 8.22 H (1.40-6.50) K/uL Lymph # (Auto) 0.96 L (1.20-3.40) K/uL [place] # (Auto) 1.13 H (0.11-0.59) K/uL Eos # (Auto) 0.13 (0.00-0.50) K/uL Baso # (Auto) 0.04 (0.00-0.20) K/uL Immature Gran # (Auto) 0.04 (0.01-0.20) K/uL PT 11.4 (9.0-12.0) Seconds INR 1.1 (0.9-1.1) APTT 27 (21-31) Seconds PTT Ratio 1.0 Sodium 130 L (136-145) mmol/L Potassium 3.9 (3.5-5.1) mmol/L Chloride 93 L (98-107) mmol/L Carbon Dioxide 21 (21-32) mmol/L Anion Gap 16 H (3-11) BUN 57 H (6-23) mg/dl Creatinine 8.89 H* (0.6-1.4) mg/dl Est Cr Clr Drug Dosing 6.0 ml/min Est GFR ( Amer) 5.8 ml/min Est GFR (Non-Af Amer) 5.0 ml/min BUN/Creatinine Ratio 6.4 L (10-20) Glucose 144 H (70-99(Fasting)) mg/dl POC Glucose (70-99) mg/dl Lactate 1.6 (0.4-2.0) mmol/L Calcium 8.7 (8.6-10.3) mg/dl Phosphorus 8.2 H (2.5-4.9) mg/dl Magnesium 1.7 (1.7-2.4) mg/dl Total Bilirubin 0.4 (0.2-1.0) mg/dl AST 16 (13-39) U/L ALT 18 (7-52) U/L Alkaline Phosphatase 109 H (34-104) U/L Troponin I High Sens 74.9 H* (0-20) pg/ml Total Protein 7.0 (6.0-8.3) gm/dl Albumin 3.2 L (3.4-5.0) gm/dl Globulin 3.8 (2.5-4.0) gm/dl Albumin/Globulin Ratio 0.8 L (0.9-2) Procalcitonin (0-0.5) ng/ml TSH 1.574 (0.300-4.500) uIu/ml Fluid Neutrophils % % Fluid Lymphocytes % % Fluid Eosinophils % % Fluid Meso/Macro/[place] % % Fluid Comment Peritoneal Color Peritoneal Appearance Peritoneal WBC (Auto) (0-300) /ul Peritoneal RBC (Auto) /uL Blood Type Antibody Screen Diagnostic Findings Chest X-Ray 12/02/23 03:11 XR chest 1V portable CLINICAL HISTORY: weakness TECHNIQUE: Single frontal radiograph of the chest was obtained. Comparison: Comparison is made to chest radiograph 08/22/2023 FINDINGS: No lines and tubes are seen. Cardiomegaly is noted. The aortic arch is calcified. Lungs are underinflated but clear. Elevation of right hemidiaphragm is unchanged. No evidence of pleural effusion or pneumothorax. IMPRESSION: No acute chest disease. Cardiomegaly is noted. ACT 112: Negative or not required by law. Electronically signed by: Beny Bowser M.D. 12/02/2023 6:55 AM Abdomen/Pelvis CT 12/02/23 04:49 Exam(s): CT ABDOMEN + PELVIS Without Contrast EXAM: CT Abdomen and Pelvis Without Intravenous Contrast CLINICAL HISTORY: Reason for exam: abd pain. TECHNIQUE: Axial computed tomography images of the abdomen and pelvis without intravenous contrast. CTDI is 27 mGy and DLP is 1430 mGy-cm. Automated exposure control was utilized for the study. A dose lowering technique was utilized adhering to the principles of ALARA. COMPARISON: No relevant prior studies available. FINDINGS: Lung bases: Subsegmental atelectasis seen in bilateral lower lobes. Heart: Mild cardiomegaly. ABDOMEN: Liver: Unremarkable. Gallbladder and bile ducts: Unremarkable. No calcified stones. No ductal dilation. Pancreas: Unremarkable. No ductal dilation. Spleen: Unremarkable. No splenomegaly. Adrenals: Unremarkable. No mass. Kidneys and ureters: 9 mm diameter hemorrhagic cyst seen arising from the right renal cortex. Bilateral multiple renal cortical cysts are seen. No obstructing stones. No hydronephrosis. Stomach and bowel: Sigmoid colonic diverticulosis. No obstruction. No mucosal thickening. PELVIS: Appendix: No findings to suggest acute appendicitis. Bladder: Unremarkable. No stones. Reproductive: Moderate prostatomegaly. ABDOMEN and PELVIS: Intraperitoneal space: There is small amount of free air seen in the right upper abdomen. Small amount of free fluid seen in the pelvis. Bones/joints: No acute fracture. No dislocation. Posterior spinal fusion hardware seen at L2-L5 level. Vasculature: Ascending aorta is dilated measuring up to 4.1 cm in diameter. Lymph nodes: Unremarkable. No enlarged lymph nodes. Tubes, lines and devices: Peritoneal dialysis catheter tip seen in the right lower abdomen. IMPRESSION: 1. Sigmoid colonic diverticulosis without evidence of diverticulitis 2. Small amount of free fluid in the pelvis 3. Free air in the right upper abdomen which could be related to the peritoneal dialysis catheter Electronically signed by: Alphonse Rushing MD 12/02/23 06:24 AM PG Care Time/CCT Total # of Minutes Spent Total Time Spent with Patient: Total time spent is greater than 50% in coordination of care (as documented) at patient's floor/unit and/or counseling patient: I spent 90 minutes overall addressing this case: 15 min in medical data review/discussion with referring provider(s) and/or preparation for the visit 15 min in direct interaction with the patient/exam 30 min in Advance Care Planning/Goals of Care discussions as de tailed above in note (must be >16min) 15 min in subsequent review and synthesis of assessment and plan 15 min communicating with other providers regarding the patient's case: Advanced Care Planning 50966 Advanced Care Planning 30 [place] [address] IN/OBS CONSULT LVL 4,60M (25 - SIGNIFICANT, SEPARATELY IDENTIFIABLE ) Patient Type New Medical Decision Making High Complexity Diagnoses Weakness generalized R53.1 Shoulder pain, bilateral M25.511; M25.512 Back pain M54.9 Myofascial pain M79.18 Advanced care planning/counseling discussion Z71.89 Palliative care by specialist Z51.5 Additional Codes Advanced Care Planning - 68068 Advanced Care Planning 30 Min: 24015 Advanced Care Planning 30 Min ([id number])
[2023-12-03] MEDS: ADVANCED PROBIOTIC 625 MG CAPSULE PO SCH (14:43)
[2023-12-03 14:47] LABS: Appearance Urine Cloudy (Clear); Bacteria Urine Automated None Seen (None Seen); Bilirubin Urine Negative (Negative); Blood Urine Negative (Negative); Color Urine Yellow; Epithelial Cell Urine Auto 0-2 /hpf (0-2); Glucose Urine UA Negative (Negative); Ketones Urine Trace (Negative); Leukocyte Esterase Urine 2+ (Negative); Nitrite Urine Negative (Negative); Protein Urine 1+ (Negative); Specific Gravity Urine 1.015 (1.000-1.030); Urobilinogen Urine Negative (Negative)
--- NOTE | 2023-12-03 16:53 | Hospitalist Progress Note ---
Date of Service December 03, 2023 Assessment & Plan (1) Hypotension: Plan: Bright red blood per rectum DD likely from diverticulosis, hemorrhoids H/O recent diverticulitis with microperforation --CT ABD:Sigmoid colonic diverticulosis without evidence of diverticulitis. Small amount of free fluid in the pelvis. Free air in the right upper abdomen which could be related to the peritoneal dialysis catheter Eliquis on hold Started on hydrocortisone suppository Will need colonoscopy as outpatient Monitor H&H and transfuse as needed Appreciate GI input Hb 9.4 today Hypotension Left heel ulcer Stage II/possible cellulitis--POA No other clear source of infection Elevated procalcitonin Received IV fluids Torsemide on hold Peritoneal fluid culture negative to date Blood culture negative to date Empirically on IV Zosyn No aggressive IV fluid given end-stage renal disease on PD Started on low-dose midodrine Diarrhea Likely due to IV antibiotics Check stool for C. difficile Chronic troponin elevation Likely due to renal insufficiency Denies any chest pain, dyspnea Acute on chronic hyponatremia Likely due to diuretics Sodium 131 today Monitor Hypokalemia Monitor and replete electrolytes Abdominal pain Unclear etiology CT abdomen as above Monitor Resolved Chronic diastolic heart failure valvular heart disease (mild AR/TR) chronic LBBB Aortic root enlargement Continue dialysis per nephrology Appreciate nephrology input Monitor volume status COPD No signs of exacerbation Saturating well on room air ESRD Continue dialysis per nephrology Patient has been refusing to continue dialysis Palliative care consulted to address goals of care Thyroid Cancer S/P surgery Postsurgical hypothyroidism Normal TSH Continue levothyroxine Prostate cancer BPH Monitor for urinary retention Terazosin on hold due to low BP A-fib RVR H/O Persistent atrial fibrillation Continue metoprolol Eliquis on hold due to GI bleed Mood disorder Continue home medications Refuses psychiatric eval Medical noncompliance per record Counseled about medication compliance Generalized deconditioning Fall precautions PT OT DVT Px: SCDs Re: GI bleed CODE STATUS DNI DNR Admission and Anticipated Discharge Date Admission Date: December 02, 2023 Subjective Patient is seen and examined at bedside Request to be discontinued on dialysis Offered psychiatric evaluation, patient refused Had multiple loose BMs today per RN Denies any abdominal pain today Also denies any recurrence of rectal bleed Feels depressed Reports generalized body ache No other complaints Review of Systems Review of Systems: All systems reviewed & are unremarkable except as noted in Subjective Physical Exam Physical Exam: Physical Exam: Vitals signs as noted above General Appearance:Moderately built and nourished, no apparent distress Head: normocephalic, Atraumatic Eyes: normal inspection, EOMI Neck: supple, Trachea midline Respiratory/Chest: Normal breath sounds, CTA, No accessory muscle use Cardiovascular: Irregularly irregular, No murmur Abdomen/GI:Soft, non tender, Bowel sounds present,+PD catheter Extremities/Musculoskeletal:normal inspection, 1+ edema, left foot wound in dressing Neurologic/Psych:AAOX3, grossly no focal neurological deficits Skin: normal color, warm Results & Data Results & Data Vital Signs (Past 12 Hours) Vital Signs Temp Pulse Resp BP BP Pulse Ox O2 Del Method 12/03/23 15:23 36.9 C 78 17 98/64 L 93 Room Air 12/03/23 11:41 36.5 C 92 H 16 94/62 L 97 Room Air 12/03/23 08:25 37.0 C 99 H 20 12/03/23 07:06 37.0 C 102 H 20 100/63 97 Room Air 12/03/23 04:56 36.6 C 107 H 22 106/81 96 Room Air Laboratory Results Short CBC 12/02/23 12/03/23 Range/Units 20:11 05:52 WBC 11.30 H (4.8-10.8) K/ul Hgb 9.0 L 9.4 L (14.0-18.0) g/dl Hct 26.8 L 28.3 L (42.0-52.0) % Plt Count 278 (130-400) K/uL BMP 12/03/23 05:52 Sodium 131 L Potassium 3.7 Chloride 94 L Carbon Dioxide 22 BUN 55 H Creatinine 8.13 H* D Glucose 62 L Calcium 8.8 Urine 12/03/23 Range/Units 14:08 Urine Color Yellow Urine Appearance Cloudy A (Clear) Urine pH 5.0 (4.5-7.5) Ur Specific [place] 1.015 (1.000-1.030) Urine Protein 1+ H (Negative) Urine Glucose (UA) Negative (Negative) (1) Hypotension Hypotension type: unspecified hypotension type Qualified Code(s): I95.9 - Hypotension, unspecified
[2023-12-03] MEDS: LOPERAMIDE HCL 2 MG CAP PO PRN (19:28)
[2023-12-04 06:37] LABS: Hematocrit (blood only) 27.9 % (42.0-52.0); Hemoglobin 9.4 g/dl (14.0-18.0); Mean Corpuscular Hemoglobin 30.7 pg (25.0-34.0); Mean Corpuscular Hgb Conc 33.7 g/dL (32.0-36.0); Mean Corpuscular Volume 91.2 fL (80.0-100.0); Mean Platelet Volume 9.8 fL (9.4-12.4); Platelet Count 302 K/uL (130-400); RDW Coefficient of Variation 14.7 % (11.5-14.5); Red Blood Count 3.06 M/uL (4.70-6.10); White Blood Count 10.11 K/ul (4.8-10.8)
[2023-12-04 06:43] LABS: BUN Creatinine Ratio 6.9 (10-20); Creatinine Clr Calc Pharmacy 6.2 ml/min; Est GFR (African American) 5.3 ml/min; Est GFR (Non-African American) 4.6 ml/min; Potassium 4.2 mmol/L (3.5-5.1)
--- NOTE | 2023-12-04 11:05 | Nephrology Progress Note ---
Date of Service December 04, 2023 Assessment & Plan (1) End-stage renal disease on peritoneal dialysis: Plan: Patient has discontinued peritoneal dialysis. He will not be doing dialysis anymore. He would like to be made comfortable. Patient also seen by palliative care yesterday. Will request vascular surgery to remove PD catheter. Patient can be discharged to [facility] with hospice. Patient expected to live for several weeks. (2) Hypotension: Plan: r/o sepsis. (3) Weakness: Plan: multifactorial. could be related with deconditioning/Depression but also has low BP currently. Admission and Anticipated Discharge Date Admission Date: December 02, 2023 Subjective Seen for ESRD previously on PD but has discontinued PD. Main complaint is weakness. No shortness of breath. Review of Systems 2 Review of Systems: All other systems were reviewed and negative except as noted in HPI Physical Exam 2 Physical Exam: General exam: Appears comfortable, no acute distress HEENT: Pupils are equal and reactive to light Neck: No JVD, neck is supple trachea is midline Respiratory system: Clear breath sounds bilaterally. Gastrointestinal: Abdomen is soft, non distended, non tender, bowel sounds are present CVS: Regular rate and rhythm. No murmurs, rubs or gallops Musculoskeletal: No joint or muscle tenderness Extremities: Non tender, no edema, peripheral pulses are present Neuro: Oriented, no tremors, no focal neurological deficits Skin: No rashes Results & Data Vital Signs (Past 12 Hours) Vital Signs Temp Pulse Resp BP BP Pulse Ox O2 Del Method 12/04/23 07:15 37.1 C 98 H 16 95/60 L 100 Room Air 12/04/23 03:00 36.6 C 90 22 116/86 95 Room Air 12/03/23 23:12 36.5 C 92 H 16 108/73 94 Room Air Laboratory Results 12/04/23 05:48 12/04/23 05:48 WBC 10.11 RBC 3.06 L MCV 91.2 MCH 30.7 MCHC 33.7 RDW Std Deviation 49.0 H RDW Coeff of Pooja 14.7 H Plt Count 302 MPV 9.8 (2) Hypotension Hypotension type: unspecified hypotension type Qualified Code(s): I95.9 - Hypotension, unspecified
--- NOTE | 2023-12-04 15:37 | Hospitalist Progress Note ---
Date of Service December 04, 2023 Assessment & Plan (1) Hypotension: Plan: Bright red blood per rectum DD likely from diverticulosis, hemorrhoids H/O recent diverticulitis with microperforation --CT ABD:Sigmoid colonic diverticulosis without evidence of diverticulitis. Small amount of free fluid in the pelvis. Free air in the right upper abdomen which could be related to the peritoneal dialysis catheter Eliquis on hold Started on hydrocortisone suppository Will need colonoscopy as outpatient Monitor H&H and transfuse as needed Appreciate GI input Hb 9.4 today No further bleeding issues currently Hypotension Left heel ulcer Stage II/possible cellulitis--POA No other clear source of infection Elevated procalcitonin Received IV fluids Torsemide on hold Peritoneal fluid culture negative to date Blood culture negative to date Empirically on IV Zosyn No aggressive IV fluid given end-stage renal disease on PD Started on low-dose midodrine Leukocytosis resolved Diarrhea Likely due to IV antibiotics Stool for C. difficile negative Imodium as needed Chronic troponin elevation Likely due to renal insufficiency Denies any chest pain, dyspnea Acute on chronic hyponatremia Likely due to diuretics/volume overload Torsemide on hold Sodium 127 today Monitor Hypokalemia Monitor and replete electrolytes Abdominal pain Unclear etiology CT abdomen as above Monitor Resolved Chronic diastolic heart failure valvular heart disease (mild AR/TR) chronic LBBB Aortic root enlargement Continue dialysis per nephrology Appreciate nephrology input Monitor volume status COPD No signs of exacerbation Saturating well on room air ESRD Patient has been refusing to continue dialysis Palliative care consulted to address goals of care Nephrology on board Vascular surgery consulted for removal of dialysis catheter Clinically deteriorating Thyroid Cancer S/P surgery Postsurgical hypothyroidism Normal TSH Continue levothyroxine Prostate cancer BPH Monitor for urinary retention Terazosin on hold due to low BP A-fib RVR H/O Persistent atrial fibrillation Continue metoprolol Eliquis on hold due to GI bleed Mood disorder Continue home medications Refuses psychiatric eval Medical noncompliance per record Counseled about medication compliance Generalized deconditioning Fall precautions PT OT DVT Px: SCDs Re: GI bleed CODE STATUS DNI DNR Admission and Anticipated Discharge Date Admission Date: December 02, 2023 Subjective Patient is seen and examined at bedside Reports having significant generalized weakness Noted to have 3 loose BMs today per RN Patient continues to refuse dialysis Discussed with nephrology today Denies any chest pain, shortness of breath Review of Systems Review of Systems: All systems reviewed & are unremarkable except as noted in Subjective Physical Exam Physical Exam: Physical Exam: Vitals signs as noted above General Appearance:Moderately built and nourished, no apparent distress, ill- appearing Head: normocephalic, Atraumatic Eyes: normal inspection, EOMI Neck: supple, Trachea midline Respiratory/Chest: Normal breath sounds, CTA, No accessory muscle use Cardiovascular: Irregularly irregular, No murmur Abdomen/GI:Soft, non tender, Bowel sounds present,+PD catheter Extremities/Musculoskeletal:normal inspection, 1+ edema, left foot wound in dressing Neurologic/Psych:AAOX3, grossly no focal neurological deficits Skin: normal color, warm Results & Data Results & Data Vital Signs (Past 12 Hours) Vital Signs Temp Pulse Resp BP BP Pulse Ox O2 Del Method 12/04/23 15:12 36.7 C 97 H 20 86/60 L 100 Room Air 12/04/23 11:08 36.7 C 83 21 95/68 L 95 Room Air 12/04/23 07:15 37.1 C 98 H 16 95/60 L 100 Room Air Laboratory Results Short CBC 12/04/23 Range/Units 05:48 WBC 10.11 (4.8-10.8) K/ul Hgb 9.4 L (14.0-18.0) g/dl Hct 27.9 L (42.0-52.0) % Plt Count 302 (130-400) K/uL BMP 12/04/23 05:48 Sodium 127 L Potassium 4.2 Chloride 90 L Carbon Dioxide 19 L BUN 66 H Creatinine 9.56 H* D Glucose 90 Calcium 9.0 (1) Hypotension Hypotension type: unspecified hypotension type Qualified Code(s): I95.9 - Hypotension, unspecified
[2023-12-04] MEDS: PROMETHAZINE HCL 6.25 MG in SODIUM CHLORIDE 0.9% 50 ML IV PRN (21:47)
[2023-12-05 06:28] LABS: Calcium 8.8 mg/dl (8.6-10.3); Potassium 4.4 mmol/L (3.5-5.1)
[2023-12-05 06:35] LABS: BUN Creatinine Ratio 8.2 (10-20); Creatinine Clr Calc Pharmacy 5.9 ml/min; Est GFR (African American) 4.9 ml/min; Est GFR (Non-African American) 4.2 ml/min
--- NOTE | 2023-12-05 11:46 | Nephrology Progress Note ---
Date of Service December 05, 2023 Assessment & Plan (1) End-stage renal disease on peritoneal dialysis: Plan: Patient discontinued peritoneal dialysis. He will not be doing dialysis anymore. He would like to be made comfortable. Palliative care to see patient tomorrow again. If patient maintains his decision to quit dialysis, Will request vascular surgery to remove PD catheter. Patient can then be discharged to [facility] with hospice. Patient expected to live for several weeks. I do not think PD is sustainable in this patient anymore as it requires motivation and self drive. (2) Hypotension: Plan: r/o sepsis. (3) Weakness: Plan: multifactorial. could be related with deconditioning/Depression but also has low BP currently. Admission and Anticipated Discharge Date Admission Date: December 02, 2023 Subjective Seen for ESRD previously on PD now contemplating comfort measures. Patient stopped PD on Wednesday.I discussed with the patient that he will likely leave for several weeks of dialysis. Yesterday he told me he was surprised that he would not immediately. He continues to complain of being uncomfortable. He wanted to do PD if it would remove the discomfort. I told him I did not think PD will remove the discomfort. He is willing to talk to palliative care again tomorrow Review of Systems 2 Review of Systems: All other systems were reviewed and negative except as noted in HPI Physical Exam 2 Physical Exam: General exam: Appears comfortable, no acute distress HEENT: Pupils are equal and reactive to light Neck: No JVD, neck is supple trachea is midline Respiratory system: Clear breath sounds bilaterally. Gastrointestinal: Abdomen is soft, non distended, non tender, bowel sounds are present CVS: Regular rate and rhythm. No murmurs, rubs or gallops Musculoskeletal: No joint or muscle tenderness Extremities: Non tender, no edema, peripheral pulses are present Neuro: Oriented, no tremors, no focal neurological deficits Skin: No rashes Results & Data Vital Signs (Past 12 Hours) Vital Signs Temp Pulse Resp BP BP Pulse Ox O2 Del Method 12/05/23 11:19 36.5 C 100 H 20 90/64 L 95 Room Air 12/05/23 07:12 36.6 C 104 H 22 106/69 96 Room Air 12/05/23 02:54 36.6 C 97 H 18 111/67 97 Room Air Laboratory Results 12/05/23 05:38 (2) Hypotension Hypotension type: unspecified hypotension type Qualified Code(s): I95.9 - Hypotension, unspecified
--- NOTE | 2023-12-05 15:36 | Hospitalist Progress Note ---
Date of Service December 05, 2023 Assessment & Plan (1) Hypotension: Plan: Bright red blood per rectum DD likely from diverticulosis, hemorrhoids H/O recent diverticulitis with microperforation --CT ABD:Sigmoid colonic diverticulosis without evidence of diverticulitis. Small amount of free fluid in the pelvis. Free air in the right upper abdomen which could be related to the peritoneal dialysis catheter Eliquis on hold Continue hydrocortisone suppository--has been refusing intermittently Will need colonoscopy as outpatient Monitor H&H and transfuse as needed Appreciate GI input No further bleeding issues currently Monitor CBC Hypotension Left heel ulcer Stage II/possible cellulitis--POA No other clear source of infection Elevated procalcitonin Received IV fluids Torsemide on hold Peritoneal fluid culture negative to date Blood culture negative to date Empirically on IV Zosyn No aggressive IV fluid given end-stage renal disease on PD Started on low-dose midodrine Leukocytosis resolved Consider to titrate down antibiotics as able Diarrhea Likely due to IV antibiotics Stool for C. difficile negative Imodium as needed Improving Chronic troponin elevation Likely due to renal insufficiency Denies any chest pain, dyspnea Acute on chronic hyponatremia Likely due to diuretics/volume overload Torsemide on hold Sodium 127 today Monitor Hypokalemia Monitor and replete electrolytes Abdominal pain Unclear etiology CT abdomen as above Monitor Resolved Chronic diastolic heart failure valvular heart disease (mild AR/TR) chronic LBBB Aortic root enlargement Continue dialysis per nephrology Appreciate nephrology input Monitor volume status COPD No signs of exacerbation Saturating well on room air ESRD Palliative care consulted to address goals of care Nephrology on board Patient has been changing his decision regarding continuing Vs discontinuing dialysis Palliative care to re-discuss final decision regarding dialysis tomorrow Thyroid Cancer S/P surgery Postsurgical hypothyroidism Normal TSH Continue levothyroxine Prostate cancer BPH Monitor for urinary retention Terazosin on hold due to low BP A-fib RVR H/O Persistent atrial fibrillation Continue metoprolol Eliquis on hold due to GI bleed Mood disorder Continue home medications Refuses psychiatric eval Medical noncompliance per record Counseled about medication compliance Generalized deconditioning Fall precautions PT OT DVT Px: SCDs Re: GI bleed CODE STATUS DNI DNR Admission and Anticipated Discharge Date Admission Date: December 02, 2023 Subjective Patient is seen and examined at bedside Less lethargic today Reports having generalized pain Diarrhea improving Discussed with nephrology today Denies any chest pain, shortness of breath No other complaints Review of Systems Review of Systems: All systems reviewed & are unremarkable except as noted in Subjective Physical Exam Physical Exam: Physical Exam: Vitals signs as noted above General Appearance:Moderately built and nourished, no apparent distress, ill- appearing Head: normocephalic, Atraumatic Eyes: normal inspection, EOMI Neck: supple, Trachea midline Respiratory/Chest: Normal breath sounds, CTA, No accessory muscle use Cardiovascular: Irregularly irregular, No murmur Abdomen/GI:Soft, non tender, Bowel sounds present,+PD catheter Extremities/Musculoskeletal:normal inspection, 1+ edema, left foot wound in dressing Neurologic/Psych:AAOX3, grossly no focal neurological deficits Skin: normal color, warm Results & Data Results & Data Vital Signs (Past 12 Hours) Vital Signs Temp Pulse Pulse Resp BP BP Pulse Ox 12/05/23 14:40 90 12/05/23 11:19 36.5 C 100 H 20 90/64 L 95 12/05/23 07:27 97 H 12/05/23 07:12 36.6 C 104 H 22 106/69 96 O2 Del Method 12/05/23 14:40 12/05/23 11:19 Room Air 12/05/23 07:27 12/05/23 07:12 Room Air Laboratory Results BMP 12/05/23 05:38 Sodium 127 L Potassium 4.4 Chloride 90 L Carbon Dioxide 16 L BUN 83 H Creatinine 10.17 H* D Glucose 162 H Calcium 8.8 (1) Hypotension Hypotension type: unspecified hypotension type Qualified Code(s): I95.9 - Hy potension, unspecified
[2023-12-06] MEDS: LORATADINE 10 MG TAB PO ONE (01:08)
[2023-12-06 06:48] LABS: Hematocrit (blood only) 29.6 % (42.0-52.0); Mean Corpuscular Hemoglobin 31.1 pg (25.0-34.0); Mean Corpuscular Hgb Conc 33.8 g/dL (32.0-36.0); Mean Corpuscular Volume 91.9 fL (80.0-100.0); Mean Platelet Volume 9.6 fL (9.4-12.4); Platelet Count 274 K/uL (130-400); RDW Coefficient of Variation 14.7 % (11.5-14.5); RDW Standard Deviation 49.4 fL (36.4-46.3); Red Blood Count 3.22 M/uL (4.70-6.10); White Blood Count 11.27 K/ul (4.8-10.8)
[2023-12-06 07:11] LABS: BUN Creatinine Ratio 8.6 (10-20); Creatinine Clr Calc Pharmacy 5.7 ml/min; Est GFR (African American) 4.7 ml/min; Potassium 4.6 mmol/L (3.5-5.1)
--- NOTE | 2023-12-06 10:40 | Nephrology Progress Note ---
Date of Service December 06, 2023 Assessment & Plan (1) End-stage renal disease on peritoneal dialysis: Plan: ESRD in pt who has discontinued peritoneal dialysis. He has made this decision multiple times in the past and then reversed it. Seems firmer in his wish this time not to continue dialysis and instead to be made comfortable: at least he did until last evening; now past 18 hours states wishes to continue >per his wishes will resume treatment >recommend on going ? monthly goals of care discussions as OP (2) Goals of care, counseling/discussion: Plan: ongoign and consistently undecided about stopping or continuing therapy. Patient expected to live days to less likely weeks after stopping PD. pt wishes to withdraw from dialysis therapy but now wishes to continue. ? if needs or would tolerate modality change >> suspect not likely to tolerate HD d/t his chronic pain and anxiety and bp swings but will d/w his OP neph. >> Palliative care to f/u as OP w/ pt and . (3) Peritoneal dialysis catheter in situ: Plan: if he maintains decision to stop dialysis txs, recommend removing this; however now he state he wishes to continue Admission and Anticipated Discharge Date Admission Date: December 02, 2023 Subjective "I'm miserable; thanks for asking" endorses pruritis generalized, exertional dyspnea, edema, fatigue. no n/v; +ongoing diarrhea; "I thought I wanted to stop dialysis but not like this; I want to continue dialysis" per report stated same to hospitalist yesterday PM Review of Systems 2 Review of Systems: All systems reviewed & are unremarkable except as noted in Subjective Physical Exam 2 Constitutional: well developed and well nourished sitting u pin chair on RA, tired but appropriate Eyes: EOM intact bilaterally ENMT: Ears: + hearing impairment; no external ear abnormality Nose: no external nose abnormality Mouth: + dry oral mucous membranes Neck: no nuchal rigidity Respiratory: normal respiratory effort Auscultation: + diminished lung sounds and + rhonchi (some) Cardiovascular: Rate/Rhythm: + irregularly irregular (in 110s) Extremities: + edema (1-2+) Gastrointestinal (Abdomen): Inspection/Auscultation: normal bowel sounds P ercussion/Palpation: abdomen soft; abdomen nontender Musculoskeletal: Extremities: strength 5/5 throughout Skin: no rashes, warm and dry Neurologic: castro, fluent speech, no tremor Psychiatric: Orientation: oriented x 3 Results & Data Vital Signs (Past 12 Hours) Vital Signs Temp Pulse Pulse Pulse Resp BP Pulse Ox 12/06/23 07:30 36.8 C 119 H 20 119/74 98 12/06/23 03:46 36.9 C 111 H 24 101/72 97 12/05/23 23:22 124 H O2 Del Method 12/06/23 07:30 Room Air 12/06/23 03:46 Room Air 12/05/23 23:22 Laboratory Results 12/06/23 06:25 12/06/23 06:25
--- NOTE | 2023-12-06 13:20 | Communication Note ---
Date of Service: December 06, 2023 Brief Pall Med Note Pt requesting resumption of dialysis which is consistent with prior episodes of wanting to stop then resuming. I can follow him in OP clinic for ongoing needs. Will sign off at this time, no acute inpatient needs Thank you for allowing us to participate in the ongoing care of this patient. Please page with any additional concerns. Deepa Rodriguez DNP Director, Palliative Medicine
--- NOTE | 2023-12-06 16:30 | Hospitalist Progress Note ---
Date of Service December 06, 2023 Assessment & Plan (1) Hypotension: Plan: Bright red blood per rectum DD likely from diverticulosis, hemorrhoids H/O recent diverticulitis with microperforation --CT ABD:Sigmoid colonic diverticulosis without evidence of diverticulitis. Small amount of free fluid in the pelvis. Free air in the right upper abdomen which could be related to the peritoneal dialysis catheter Eliquis on hold Continue hydrocortisone suppository--has been refusing intermittently Will need colonoscopy as outpatient Monitor H&H and transfuse as needed Appreciate GI input No further bleeding issues currently Monitor CBC Hemoglobin stable 10.0 today Hypotension Left heel ulcer Stage II/possible cellulitis--POA No other clear source of infection Elevated procalcitonin Received IV fluids Torsemide on hold Peritoneal fluid culture negative to date Blood culture negative to date Empirically on IV Zosyn No aggressive IV fluid given end-stage renal disease on PD Started on low-dose midodrine Monitor BP Diarrhea Likely due to IV antibiotics Stool for C. difficile negative Imodium as needed No diarrhea today Chronic troponin elevation Likely due to renal insufficiency Denies any chest pain, dyspnea Acute on chronic hyponatremia Likely due to diuretics/volume overload Torsemide on hold Sodium 127 today Monitor Hypokalemia Monitor and replete electrolytes Abdominal pain Unclear etiology CT abdomen as above Monitor Resolved Chronic diastolic heart failure valvular heart disease (mild AR/TR) chronic LBBB Aortic root enlargement Continue dialysis per nephrology Appreciate nephrology input Monitor volume status COPD No signs of exacerbation Saturating well on room air ESRD Palliative care consulted to address goals of care Nephrology on board Patient prefers to be resumed on dialysis again Plan for PD dialysis today Thyroid Cancer S/P surgery Postsurgical hypothyroidism Normal TSH Continue levothyroxine Prostate cancer BPH Monitor for urinary retention Terazosin on hold due to low BP A-fib RVR H/O Persistent atrial fibrillation Continue metoprolol Eliquis on hold due to GI bleed Mood disorder Continue home medications Refuses psychiatric eval Medical noncompliance per record Counseled about medication compliance Generalized deconditioning Fall precautions PT OT DVT Px: SCDs Re: GI bleed CODE STATUS DNI DNR Admission and Anticipated Discharge Date Admission Date: December 02, 2023 Subjective Patient is seen and examined at bedside Reports generalized pain No diarrhea at this morning Prefers to be resumed on dialysis Discussed with nephrology today Denies any chest pain, shortness of breath Review of Systems Review of Systems: All systems reviewed & are unremarkable except as noted in Subjective Physical Exam Physical Exam: Physical Exam: Vitals signs as noted above General Appearance:Moderately built and nourished, no apparent distress, ill- appearing Head: normocephalic, Atraumatic Eyes: normal inspection, EOMI Neck: supple, Trachea midline Respiratory/Chest: Normal breath sounds, CTA, No accessory muscle use Cardiovascular: Irregularly irregular, No murmur Abdomen/GI:Soft, non tender, Bowel sounds present,+PD catheter Extremities/Musculoskeletal:normal inspection, 1+ edema, left foot wound in dressing Neurologic/Psych:AAOX3, grossly no focal neurological deficits Skin: normal color, warm Results & Data Results & Data Vital Signs (Past 12 Hours) Vital Signs Temp Pulse Pulse Resp BP Pulse Ox O2 Del Method 12/06/23 15:00 36.5 C 97 H 99 H 20 100/66 96 Room Air 12/06/23 12:04 36.5 C 96 H 22 126/84 12/06/23 07:30 36.8 C 119 H 20 119/74 98 Room Air Laboratory Results Short CBC 12/06/23 Range/Units 06:25 WBC 11.27 H (4.8-10.8) K/ul Hgb 10.0 L (14.0-18.0) g/dl Hct 29.6 L (42.0-52.0) % Plt Count 274 (130-400) K/uL BMP 12/06/23 06:25 Sodium 127 L Potassium 4.6 Chloride 90 L Carbon Dioxide 16 L BUN 91 H Creatinine 10.55 H* D Glucose 122 H Calcium 9.0 (1) Hypotension Hypotension type: unspecified hypotension type Qualified Code(s): I95.9 - Hypotension, unspecified
[2023-12-06] MEDS: METOPROLOL TARTRATE 1 MG/ML VIAL IV PRN (17:06)
[2023-12-06] MEDS ORDERED: LEVALBUTEROL HCL 0.63 MG/3 ML NEB NEB PRN (18:37)
[2023-12-06] MEDS: FUROSEMIDE INJ 20 MG/2 ML VIAL IV ONE (20:02)
[2023-12-07 07:58] LABS: BUN Creatinine Ratio 8.7 (10-20); Calcium 8.7 mg/dl (8.6-10.3); Creatinine Clr Calc Pharmacy 5.8 ml/min; Est GFR (African American) 4.9 ml/min; Est GFR (Non-African American) 4.2 ml/min; Potassium 4.2 mmol/L (3.5-5.1)
[2023-12-07] MEDS ORDERED: LORazepam 0.5 MG TAB PO PRN (09:29)
[2023-12-07] MEDS: LORazepam 0.25 MG in SYRINGE 0.125 ML IV ONE (10:17)
--- NOTE | 2023-12-07 14:47 | Nephrology Progress Note ---
Date of Service December 07, 2023 Assessment & Plan (1) End-stage renal disease on peritoneal dialysis: Plan: ESRD in pt who had discontinued peritoneal dialysis. He has made this decision multiple times in the past and then reversed it. this pattern continues this hospital stay as well. had PD 12/02 then refused; had it again 12/05; now refusing again. not an HD candidate d/t panic attacks and inability to sit still/chronic pain >per his wishes will not treat today; doing this day by day at this point >recommend on going ? monthly goals of care discussions as OP From a nephro standpoint could be d/c; he can continue his decision making process as OP (2) Goals of care, counseling/discussion: Plan: ongoign and consistently undecided about stopping or continuing therapy. Patient expected to live days to less likely weeks after stopping PD. pt wishes to withdraw from dialysis therapy but now wishes to continue. modality change to HD not an option >> Palliative care to f/u as OP w/ pt and . (3) Peritoneal dialysis catheter in situ: Plan: if he maintains decision to stop dialysis txs, recommend removing this; however now he state he wishes to continue Admission and Anticipated Discharge Date Admission Date: December 02, 2023 Subjective 900mL UF overnight; today tells both me an dPD nurse he won't do dialysis this evenign. ongoing back pain. tired this am and only partially interactive. mild sob. no n. Review of Systems 2 Review of Systems: All systems reviewed & are unremarkable except as noted in Subjective Physical Exam 2 Constitutional: well developed, well nourished and + lethargic Eyes: EOM intact bilaterally ENMT: Ears: + hearing impairment; no external ear abnormality Nose: no external nose abnormality Mouth: + dry oral mucous membranes Neck: no nuchal rigidity Respiratory: normal respiratory effort Auscultation: + diminished lung sounds and + rhonchi (some) Cardiovascular: Rate/Rhythm: + irregularly irregular (in 90s) Extremities: + edema (1+) Gastrointestinal (Abdomen): Inspection/Auscultation: normal bowel sounds P ercussion/Palpation: abdomen soft; abdomen nontender Musculoskeletal: Extremities: strength 5/5 throughout Skin: no rashes, warm and dry Psychiatric: Orientation: oriented x 3 Results & Data Vital Signs (Past 12 Hours) Vital Signs Temp Pulse Pulse Pulse Resp BP Pulse Ox 12/07/23 11:48 36.6 C 95 H 18 112/74 97 12/07/23 08:16 36.9 C 101 H 21 12/07/23 08:00 89 12/07/23 08:00 O2 Del Method O2 Flow Rate 12/07/23 11:48 Room Air 12/07/23 08:16 12/07/23 08:00 12/07/23 08:00 Nasal Cannula 2 Laboratory Results 12/06/23 06:25 12/07/23 07:12
--- NOTE | 2023-12-07 15:14 | Hospitalist Progress Note ---
Date of Service December 07, 2023 Assessment & Plan (1) Hypotension: Plan: Hypotension- multifactorial Ongoing diarrhea with dehydration complicated by atrial fibrillation with RVR rectal bleed with dehydration End-stage renal disease on peritoneal dialysis Received intravenous fluid. hold torsemide and started on low-dose midodrine Blood pressure remains on the lower side of normal We will monitor while in the hospital Bright red blood per rectum DD likely from diverticulosis, hemorrhoids H/O recent diverticulitis with microperforation --CT ABD:Sigmoid colonic diverticulosis without evidence of diverticulitis. Small amount of free fluid in the pelvis. 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 difficile negative Imodium as needed Diarrhea is controlled Chronic troponin elevation Likely due to renal insufficiency Denies any chest pain, dyspnea Acute on chronic hyponatremia Likely due to diuretics/volume overload Torsemide on hold Sodium 127 today Sodium level is 128 today Hypokalemia Monitor and replete electrolytes Abdominal pain Unclear etiology CT abdomen as above Monitor Resolved Chronic diastolic heart failure valvular heart disease (mild AR/TR) chronic LBBB Aortic root enlargement Continue dialysis per nephrology Appreciate nephrology input Monitor volume status COPD No signs of exacerbation Saturating well on room air Thyroid Cancer S/P surgery Postsurgical hypothyroidism Normal TSH Continue levothyroxine Prostate cancer BPH Monitor for urinary retention Terazosin on hold due to low BP A-fib RVR H/O Persistent atrial fibrillation Continue metoprolol Eliquis on hold due to GI bleed Hemoglobin remains stable at 10 will restart Eliquis Mood disorder Continue home medications Refuses psychiatric eval Medical noncompliance per record Counseled about medication compliance Generalized deconditioning Fall precautions PT OT DVT Px: SCDs Re: GI bleed CODE STATUS DNI DNR Admission and Anticipated Discharge Date Admission Date: December 02, 2023 Subjective 12/07/2023 The patient was seen and examined in telemetry unit He remains very anxious and complains to have some shortness of breath Nonspecific pain all over Denies any chest pain and/or palpitation Review of Systems Review of Systems: sitting on a chair with acute distress due to anxiety and pain Physical Exam Physical Exam: minimal distress at rest Constitutional: well developed, well nourished and + ill appearing Eyes: PERRL, conjunctivae normal, anicteric sclerae ENMT: external ear and nose normal, oropharynx normal Neck: trachea midline, no thyromegaly Respiratory: + respiratory distress ( mild distress d ue to anxiety) Auscultation: + diminished lung sounds; no crackles Cardiovascular: Rate/Rhythm: regular rate and regular rhythm; not tachycardic Heart Sounds: normal S1 and normal S2; no murmur Extremities: + edema ( trace edema bilaterally) Gastrointestinal (Abdomen): Inspection/Auscultation: + abdomen distended ( mildly distended) and normal bowel sounds Percussion/Palpation: + abdomen tender ( mildly tender) and abdomen soft Musculoskeletal: no acute arthritis involving any of the joint Neurologic: normal touch/pain/proprioception and moves all extremities; no focal motor deficits Psychiatric: Mood: + depressed mood, + anxious mood and + irritable mood Lymphatic: no cervical or axillary lymphadenopathy Results & Data Results & Data Vital Signs (Past 12 Hours) Vital Signs Temp Pulse Pulse Pulse Resp BP Pulse Ox 12/07/23 11:48 36.6 C 95 H 18 112/74 97 12/07/23 08:16 36.9 C 101 H 21 12/07/23 08:00 89 12/07/23 08:00 O2 Del Method O2 Flow Rate 12/07/23 11:48 Room Air 12/07/23 08:16 12/07/23 08:00 12/07/23 08:00 Nasal Cannula 2 Laboratory Results BMP 12/07/23 07:12 Sodium 128 L Potassium 4.2 Chloride 91 L Carbon Dioxide 17 L BUN 89 H Creatinine 10.21 H* D Glucose 162 H Calcium 8.7 Medications Administered Current Inpatient Medications Allopurinol (Allopurinol 100 Mg Tab) 100 mg PO QAM LILI Stop: 01/01/24 08:59 Last Admin: 12/07/23 08:03 Dose: 100 mg Artificial Tears (Artificial Tears) 1 drops OPB QID PRN PRN Reason: Dryness Stop: 01/01/24 18:05 Buspirone HCl (Buspirone 5 Mg Tab) 5 mg PO Q4 PRN PRN Reason: Anxiety Stop: 01/01/24 05:50 Last Admin: 12/06/23 01:08 Dose: 5 mg Dextrose (Dextrose 50% 50 Ml Syringe) 25 - 50 ml IV UD PRN; Protocol PRN Reason: Hypoglycemia Protocol Stop: 01/01/24 05:50 Last Admin: 12/04/23 05:25 Dose: 25 ml Glucagon (Glucagon For Inj 1 Mg Vial) 1 mg SQ UD PRN; Protocol PRN Reason: Hypoglycemia Protocol Stop: 01/01/24 05:50 Glucose (Glucose 40% Gel 15 Gm Tube) 15 - 30 gm PO UD PRN; Protocol PRN Reason: Hypoglycemia Protocol Stop: 01/01/24 05:50 Glucose (Glucose 10 Tab/Tube) 4 - 8 tab PO UD PRN; Protocol PRN Reason: Hypoglycemia Treatment Stop: 01/01/24 05:50 Hydrocortisone (Hydrocortisone Acetate 25 Mg Supp) 25 mg MN BID LILI Stop: 12/12/23 12:14 Last Admin: 12/07/23 08:03 Dose: 25 mg Promethazine HCl 6.25 mg/ (Sodium Chloride) 50.25 mls @ 201 mls/hr IV Q6H PRN PRN Reason: Nausea And Vomiting Stop: 01/01/24 04:54 Last Infusion: 12/04/23 22:28 Dose: Infused Piperacillin Sod/Tazobactam (Sod 4.5 gm/ Dextrose) 100 mls @ 25 mls/hr IV Q12H LILI; Protocol Stop: 12/12/23 15:59 Last Infusion: 12/07/23 10:18 Dose: Infused Insulin Aspart (Insulin Aspart Per Unit Charge) 0 units SC ACHS LILI Stop: 01/01/24 07:29 Last Admin: 12/07/23 11:58 Dose: 3 units Lactobacillus Acidophilus (Advanced Probiotic 625 Mg Capsule) 1,250 mg PO DAILY LILI Stop: 01/02/24 14:29 Last Admin: 12/07/23 08:02 Dose: 1,250 mg Lactulose (Lactulose Syrup 20 Gm/30 Ml Udc) 10 gm PO BID PRN PRN Reason: severe constipation Stop: 01/01/24 05:55 Levalbuterol HCl (Levalbuterol Hcl 0.63 Mg/3 Ml Neb) 0.63 mg NEB Q6H PRN; Protocol PRN Reason: Shortness Of Breath Or Wheezing Stop: 01/05/24 18:36 Levothyroxine Sodium (Levothyroxine Sodium 150 Mcg Tablet) 150 mcg PO DAILYBB [facility] Stop: 01/01/24 06:29 Last Admin: 12/07/23 06:23 Dose: 150 mcg Loperamide HCl (Loperamide Hcl 2 Mg Cap) 2 mg PO Q4H PRN PRN Reason: Diarrhea Stop: 01/02/24 18:26 Last Admin: 12/04/23 11:18 Dose: 2 mg Lorazepam (Lorazepam 0.5 Mg Tab) 0.5 mg PO Q6H PRN PRN Reason: Anxiety Stop: 01/06/24 09:28 Metoprolol Succinate (Metoprolol Succ 25mg Ext Rel Tab) 25 mg PO QAM [facility] Stop: 01/01/24 08:59 Last Admin: 12/07/23 08:02 Dose: 25 mg Metoprolol Tartrate (Metoprolol Tartrate 1 Mg/Ml Vial) 2.5 mg IV Q6 PRN PRN Reason: Tachycardia HR>110 Stop: 01/05/24 11:59 Last Admin: 12/07/23 02:01 Dose: 2.5 mg Midodrine (Midodrine Hcl 2.5 Mg Tab) 2.5 mg PO TID@0800,1200,1700 [facility] Stop: 01/01/24 11:59 Last Admin: 12/07/23 11:58 Dose: 2.5 mg Miscellaneous (Carbohydrates For Hypoglycemia ) 15 - 30 gm PO UD PRN PRN Reason: Hypoglycemia Protocol Stop: 01/01/24 05:50 Last Admin: 12/03/23 11:27 Dose: 15 gm Oxycodone HCl (Oxycodone Hcl Ir 5 Mg Tab (Immediate Release)) 5 mg PO Q4H PRN PRN Reason: Pain Stop: 12/16/23 04:54 Last Admin: 12/06/23 20:00 Dose: 5 mg Vitamin B Complex (Vitamin B Complex Tab) 1 tab PO DAILY [facility] Stop: 01/01/24 08:59 Last Admin: 12/07/23 08:01 Dose: 1 tab Vitamin B Complex/Folic Acid (Nephrocaps) 1 cap PO DAILY [facility] Stop: 01/01/24 08:59 Last Admin: 12/07/23 08:02 Dose: 1 cap Vitamin D (Cholecalciferol 25 Mcg (1000 Units) Tab) 50 mcg PO QAM LILI Stop: 01/01/24 08:59 Last Admin: 12/07/23 08:02 Dose: 50 mcg (1) Hypotension Hypotension type: unspecified hypotension type Qualified Code(s): I95.9 - Hypotension, unspecified
[2023-12-08] MEDS: ACETAMINOPHEN 1,000 MG/100 ML VIAL IV STA (03:32)
[2023-12-08] MEDS: HYDROmorphone INJ 0.5 MG/0.5 ML SYR IV PRN (03:33)
[2023-12-08 05:59] LABS: Hemoglobin 7.8 g/dl (14.0-18.0); Mean Corpuscular Hgb Conc 33.9 g/dL (32.0-36.0); Mean Corpuscular Volume 91.3 fL (80.0-100.0); Mean Platelet Volume 9.6 fL (9.4-12.4); Nucleated RBC # (auto) 0.02 K/uL (0.00-0.12); Nucleated RBC % (auto) 0.2 %; Platelet Count 244 K/uL (130-400); RDW Coefficient of Variation 15.2 % (11.5-14.5); RDW Standard Deviation 50.2 fL (36.4-46.3); Red Blood Count 2.52 M/uL (4.70-6.10); White Blood Count 8.72 K/ul (4.8-10.8)
--- NOTE | 2023-12-08 09:19 | Nephrology Progress Note ---
Date of Service December 08, 2023 Assessment & Plan (1) End-stage renal disease on peritoneal dialysis: Plan: ESRD in pt who had discontinued peritoneal dialysis. He has made this decision multiple times in the past and then reversed it. this pattern continues this hospital stay as well. had PD 12/02 then refused 12/03 & ; had it again 12/05; now refusing again 12/06 and . not an HD candidate d/t panic attacks and inability to sit still/chronic pain >per his wishes will not treat today; doing this day by day at this point d/c planning complicated b/c he needs PD (at least currently intermittently agrees to it) but no local LTC facilites offer this and he needs to be placed >> have inquiries out about any possible LTCF's offering PD closer to [facility] >>[facility] in [place] does offer on site PD >> updated case advocate to see about beds talked to him today about LTC in [place] where he could do PD or not on daily basis as he's doing here >> he says too far away, does not want PD (but again this has historically changed every few days) today he says he "just wants to be comfortable," so I talked to him about hospice and he agrees for that (today; has refused in past) Given how all over the map he's been, recommend -d/w family for their input on hospice or [place] or other -if he says x 3-4 days no PD then would pull PD catheter to lower needless infection risk and bring more closure to this prolonged decision about continuing dialysis or not >>at this point the d/c options would be going to [facility] if space to do PD as he wishes or does not wish to daily or/and stopping dialysis and going on hospice; or (less likely) going home and doing intermittent PD there w/ more family support for his care (but family would still have to do PD); suggest [facility] if available for PD as pt agrees to it as well as hospice << however pt will need some convincing on this. care coordinated w/ [facility] PD team, [facility] Case Mgt, Dr Huddleston. (2) Goals of care, counseling/discussion: Plan: ongoing and consistent indecision about stopping or continuing dialysis therapy. Patient expected to live days to less likely weeks after stopping PD. modality change to HD not an option >>poses d/c challenge as above >> Palliative care to f/u as OP w/ pt and potentially. recommend family conference w/ hospitalist as above (3) Peritoneal dialysis catheter in situ: Plan: if he maintains decision to stop dialysis txs, recommend removing this; however now he state he wishes to continue; need a dispo on PD to move forward. Admission and Anticipated Discharge Date Admission Date: December 02, 2023 Subjective pt needs to be placed but no facilities do PD currently, at least not locally. challenging b/c he can't tolerate HD. no local LTC facilities offer PD. [facility] facility offers PD >> pt states he wants no more dialysis of any kind; states ready for hospice and being made comfortable. denies sob, n/v. c/o diffuse body aches. Review of Systems 2 Review of Systems: All systems reviewed & are unremarkable except as noted in Subjective Physical Exam 2 Constitutional: well developed, well nourished and + lethargic (but mostly answers appropriately) Eyes: EOM intact bilaterally ENMT: Ears: + hearing impairment; no external ear abnormality Nose: no external nose abnormality Mouth: + dry oral mucous membranes Neck: no nuchal rigidity Respiratory: normal respiratory effort Auscultation: + diminished lung sounds on 02NC Cardiovascular: Rate/Rhythm: + irregularly irregular (in 90s) Extremities: + edema (at most trace) Gastrointestinal (Abdomen): Inspection/Auscultation: normal bowel sounds P ercussion/Palpation: abdomen soft; abdomen nontender Musculoskeletal: Extremities: strength 5/5 throughout Skin: no rashes, warm and dry Psychiatric: Orientation: oriented x 3 Results & Data Vital Signs (Past 12 Hours) Vital Signs Temp Pulse Pulse Resp BP Pulse Ox O2 Del Method 12/08/23 08:28 36.5 C 104 H 18 107/67 97 Nasal Cannula 12/08/23 06:50 76 12/08/23 02:41 36.8 C 86 18 106/70 97 Nasal Cannula 12/07/23 22:43 37.2 C 92 H 18 108/63 98 Nasal Cannula 12/07/23 22:00 82 O2 Flow Rate 12/08/23 08:28 2 12/08/23 06:50 12/08/23 02:41 07/30/24 22:43 12/07/23 22:00 Laboratory Results 12/08/23 05:31 12/07/23 07:12
[2023-12-08] MEDS: oxyCODONE HCL IR 5 MG TAB (IMMEDIATE RELEASE) PO PRN (11:26)
--- NOTE | 2023-12-08 14:07 | Hospitalist Progress Note ---
Date of Service December 08, 2023 Assessment & Plan (1) Hypotension: Plan: Hypotension- multifactorial Ongoing diarrhea with dehydration complicated by atrial fibrillation with RVR rectal bleed with dehydration End-stage renal disease on peritoneal dialysis Received intravenous fluid. hold torsemide and started on low-dose midodrine Blood pressure remains on the lower side of normal We will monitor while in the hospital Blood pressure remains on the lower side of normal Bright red blood per rectum DD likely from diverticulosis, hemorrhoids H/O recent diverticulitis with microperforation --CT ABD:Sigmoid colonic diverticulosis without evidence of diverticulitis. Small amount of free fluid in the pelvis. Free air in the right upper abdomen which could be related to the peritoneal dialysis catheter Eliquis on hold Continue hydrocortisone suppository--has been refusing intermittently Appreciate GI input and recommendation Hemoglobin remains stable Appreciate GI input and recommendation Will likely need outpatient colonoscopy Hemoglobin is 7.8 today without any evidence of acute bleeding Likely contributed by end-stage renal disease ESRD Palliative care consulted to address goals of care Nephrology on board Patient prefers to be resumed on dialysis again Continue peritoneal dialysis as per the deliverer pharmacy The patient does not want to continue anymore peritoneal dialysis Plan to discuss this with the family members in presence of the patient and decide next goal of care Left heel ulcer Stage II/possible cellulitis--POA No other clear source of infection Elevated procalcitonin Received IV fluids Peritoneal fluid culture negative to date Blood culture negative to date Empirically on IV Zosyn Diarrhea Likely due to IV antibiotics Stool for C. difficile negative Imodium as needed Diarrhea is controlled Chronic troponin elevation Likely due to renal insufficiency Denies any chest pain, dyspnea Acute on chronic hyponatremia Likely due to diuretics/volume overload Torsemide on hold Sodium 127 today Sodium level is 128 today Hypokalemia Monitor and replete electrolytes Abdominal pain Unclear etiology CT abdomen as above Monitor Resolved Chronic diastolic heart failure valvular heart disease (mild AR/TR) chronic LBBB Aortic root enlargement Continue dialysis per nephrology Appreciate nephrology input Monitor volume status COPD No signs of exacerbation Saturating well on room air Thyroid Cancer S/P surgery Postsurgical hypothyroidism Normal TSH Continue levothyroxine Prostate cancer BPH Monitor for urinary retention Terazosin on hold due to low BP A-fib RVR H/O Persistent atrial fibrillation Continue metoprolol Eliquis on hold due to GI bleed Hemoglobin remains stable at 10 will restart Eliquis Mood disorder Continue home medications Refuses psychiatric eval Medical noncompliance per record Counseled about medication compliance Generalized deconditioning Fall precautions PT OT DVT Px: SCDs Re: GI bleed CODE STATUS DNI DNR Admission and Anticipated Discharge Date Admission Date: December 02, 2023 Subjective 12/07/2023 The patient was seen and examined in telemetry unit He remains very anxious and complains to have some shortness of breath Nonspecific pain all over Denies any chest pain and/or palpitation 12/08/2023 The patient was seen and examined in telemetry unit His condition has been deteriorating He has been feeling measurable and does not want to continue anymore dialysis The consequences of not having dialysis were discussed in detail with the patient Awaiting family members to come and decide further goal of care this afternoon Review of Systems Review of Systems: sitting on a chair with acute distress due to anxiety and pain Physical Exam Physical Exam: minimal distress at rest Constitutional: well developed, well nourished and + ill appearing Eyes: PERRL, conjunctivae normal, anicteric sclerae ENMT: external ear and nose normal, oropharynx normal Neck: trachea midline, no thyromegaly Respiratory: + respiratory distress ( mild distress d ue to anxiety) Auscultation: + diminished lung sounds; no crackles Cardiovascular: Rate/Rhythm: regular rate and regular rhythm; not tachycardic Heart Sounds: normal S1 and normal S2; no murmur Extremities: + edema ( trace edema bilaterally) Gastrointestinal (Abdomen): Inspection/Auscultation: + abdomen distended ( mildly distended) and normal bowel sounds Percussion/Palpation: + abdomen tender ( mildly tender) and abdomen soft Neurologic: normal touch/pain/proprioception and moves all extremities; no focal motor deficits Psychiatric: Mood: + depressed mood, + anxious mood and + irritable mood Lymphatic: no cervical or axillary lymphadenopathy Results & Data Results & Data Vital Signs (Past 12 Hours) Vital Signs Temp Pulse Pulse Resp BP Pulse Ox O2 Del Method 12/08/23 11:53 36.6 C 85 20 111/82 97 Nasal Cannula 12/08/23 08:31 76 12/08/23 08:31 Nasal Cannula 12/08/23 08:28 36.5 C 104 H 18 107/67 97 Nasal Cannula 12/08/23 06:50 76 12/08/23 02:41 36.8 C 86 18 106/70 97 Nasal Cannula O2 Flow Rate 12/08/23 11:53 2 12/08/23 08:31 12/08/23 08:31 2 12/08/23 08:28 2 12/08/23 06:50 12/08/23 02:41 Laboratory Results Short CBC 12/08/23 Range/Units 05:31 WBC 8.72 (4.8-10.8) K/ul Hgb 7.8 L (14.0-18.0) g/dl Hct 23.0 L (42.0-52.0) % Plt Count 244 (130-400) K/uL Medications Administered Current Inpatient Medications Allopurinol (Allopurinol 100 Mg Tab) 100 mg PO QAM [facility] Stop: 01/01/24 08:59 Last Admin: 12/08/23 08:32 Dose: 100 mg Artificial Tears (Artificial Tears) 1 drops OPB QID PRN PRN Reason: Dryness Stop: 01/01/24 18:05 Buspirone HCl (Buspirone 5 Mg Tab) 5 mg PO Q4 PRN PRN Reason: Anxiety Stop: 01/01/24 05:50 Last Admin: 12/08/23 08:31 Dose: 5 mg Dextrose (Dextrose 50% 50 Ml Syringe) 25 - 50 ml IV UD PRN; Protocol PRN Reason: Hypoglycemia Protocol Stop: 01/01/24 05:50 Last Admin: 12/04/23 05:25 Dose: 25 ml Glucagon (Glucagon For Inj 1 Mg Vial) 1 mg SQ UD PRN; Protocol PRN Reason: Hypoglycemia Protocol Stop: 01/01/24 05:50 Glucose (Glucose 40% Gel 15 Gm Tube) 15 - 30 gm PO UD PRN; Protocol PRN Reason: Hypoglycemia Protocol Stop: 01/01/24 05:50 Glucose (Glucose 10 Tab/Tube) 4 - 8 tab PO UD PRN; Protocol PRN Reason: Hypoglycemia Treatment Stop: 01/01/24 05:50 Hydrocortisone (Hydrocortisone Acetate 25 Mg Supp) 25 mg [place] BID [facility] Stop: 12/12/23 12:14 Last Admin: 12/08/23 08:31 Dose: Not Given Hydromorphone HCl (Hydromorphone Inj 0.5 Mg/0.5 Ml Syr) 0.25 mg IV Q4H PRN PRN Reason: Pain Stop: 12/22/23 03:18 Last Admin: 12/08/23 13:40 Dose: 0.25 mg Promethazine HCl 6.25 mg/ (Sodium Chloride) 50.25 mls @ 201 mls/hr IV Q6H PRN PRN Reason: Nausea And Vomiting Stop: 01/01/24 04:54 Last Infusion: 12/04/23 22:28 Dose: Infused Piperacillin Sod/Tazobactam (Sod 4.5 gm/ Dextrose) 100 mls @ 25 mls/hr IV Q12H [facility]; Protocol Stop: 12/12/23 15:59 Last Infusion: 12/08/23 10:13 Dose: Infused Insulin Aspart (Insulin Aspart Per Unit Charge) 0 units SC ACHS [facility] Stop: 01/01/24 07:29 Last Admin: 12/08/23 12:03 Dose: 1 units Lactobacillus Acidophilus (Advanced Probiotic 625 Mg Capsule) 1,250 mg PO DAILY [facility] Stop: 01/02/24 14:29 Last Admin: 12/08/23 08:32 Dose: 1,250 mg Lactulose (Lactulose Syrup 20 Gm/30 Ml Udc) 10 gm PO BID PRN PRN Reason: severe constipation Stop: 01/01/24 05:55 Levalbuterol HCl (Levalbuterol Hcl 0.63 Mg/3 Ml Neb) 0.63 mg NEB Q6H PRN; P rotocol PRN Reason: Shortness Of Breath Or Wheezing Stop: 01/05/24 18:36 Levothyroxine Sodium (Levothyroxine Sodium 150 Mcg Tablet) 150 mcg PO DAILYBB [facility] Stop: 01/01/24 06:29 Last Admin: 12/08/23 05:56 Dose: 150 mcg Loperamide HCl (Loperamide Hcl 2 Mg Cap) 2 mg PO Q4H PRN PRN Reason: Diarrhea Stop: 01/02/24 18:26 Last Admin: 12/04/23 11:18 Dose: 2 mg Lorazepam (Lorazepam 0.5 Mg Tab) 0.5 mg PO Q6H PRN PRN Reason: Anxiety Stop: 01/06/24 09:28 Metoprolol Succinate (Metoprolol Succ 25mg Ext Rel Tab) 25 mg PO QAM [facility] Stop: 01/01/24 08:59 Last Admin: 12/08/23 08:32 Dose: 25 mg Metoprolol Tartrate (Metoprolol Tartrate 1 Mg/Ml Vial) 2.5 mg IV Q6 PRN PRN Reason: Tachycardia HR>110 Stop: 01/05/24 11:59 Last Admin: 12/07/23 02:01 Dose: 2.5 mg Midodrine (Midodrine Hcl 2.5 Mg Tab) 2.5 mg PO TID@0800,1200,1700 [facility] Stop: 01/01/24 11:59 Last Admin: 12/08/23 11:27 Dose: 2.5 mg Miscellaneous (Carbohydrates For Hypoglycemia ) 15 - 30 gm PO UD PRN PRN Reason: Hypoglycemia Protocol Stop: 01/01/24 05:50 Last Admin: 12/03/23 11:27 Dose: 15 gm Oxycodone HCl (Oxycodone Hcl Ir 5 Mg Tab (Immediate Release)) 5 - 10 mg PO QID PRN PRN Reason: Pain Stop: 12/22/23 03:18 Last Admin: 12/08/23 11:26 Dose: 10 mg Vitamin B Complex (Vitamin B Complex Tab) 1 tab PO DAILY [facility] Stop: 01/01/24 08:59 Last Admin: 12/08/23 08:31 Dose: 1 tab Vitamin B Complex/Folic Acid (Nephrocaps) 1 cap PO DAILY [facility] Stop: 01/01/24 08:59 Last Admin: 12/08/23 08:31 Dose: 1 cap Vitamin D (Cholecalciferol 25 Mcg (1000 Units) Tab) 50 mcg PO QAM [facility] Stop: 01/01/24 08:59 Last Admin: 12/08/23 08:32 Dose: 50 mcg (1) Hypotension Hypotension type: unspecified hypotension type Qualified Code(s): I95.9 - Hypotension, unspecified
[2023-12-09 07:16] VITALS: RESP 19
[2023-12-09 09:41] LABS: BUN Creatinine Ratio 8.6 (10-20); Calcium 8.5 mg/dl (8.6-10.3); Creatinine Clr Calc Pharmacy 5.2 ml/min; Est GFR (African American) 4.3 ml/min; Est GFR (Non-African American) 3.7 ml/min; Potassium 4.8 mmol/L (3.5-5.1)
[2023-12-09 15:06] VITALS: BP 130/85; PULSE 104; TEMP 97.7; O2SAT 96
--- NOTE | 2023-12-09 15:07 | Hospitalist Progress Note ---
Date of Service December 09, 2023 Assessment & Plan (1) Hypotension: Plan: Deconditioning Overall deterioration of his general condition for the last few days Has been suffering a lot with nonspecific pain all over the body and general distress Very very frustrated and does not want to continue with the dialysis Has had palliative therapy evaluation and the patient has not completely made up his mind about comfort care from here but he was leaning towards it He is in his cleared mental status and knows that without dialysis he is not going to survive This will be discussed with the family members in front of the patient and further management plan will be outlined this afternoon Discussed with the family members in presence of the patient in patient's room The daughter, the and the patient are in agreement to go for comfort care Will stop all medications and continue with pain medications and medicines that will be given to control symptoms No more blood test He will be transferred to medical floor and likely discharge home with hospice if his condition remains reasonably stable for the next few days Hypotension- multifactorial Ongoing diarrhea with dehydration complicated by atrial fibrillation with RVR rectal bleed with dehydration End-stage renal disease on peritoneal dialysis Received intravenous fluid. hold torsemide and started on low-dose midodrine Blood pressure remains on the lower side of normal We will monitor while in the hospital Blood pressure remains on the lower side of normal Will stop all medications Bright red blood per rectum DD likely from diverticulosis, hemorrhoids H/O recent diverticulitis with microperforation --CT ABD:Sigmoid colonic diverticulosis without evidence of diverticulitis. Small amount of free fluid in the pelvis. 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 difficile negative Imodium as needed Diarrhea is controlled Chronic troponin elevation Likely due to renal insufficiency Denies any chest pain, dyspnea Acute on chronic hyponatremia Likely due to diuretics/volume overload Torsemide on hold Sodium 127 today Sodium level is 128 today Hypokalemia Monitor and replete electrolytes Abdominal pain Unclear etiology CT abdomen as above Monitor Resolved Chronic diastolic heart failure valvular heart disease (mild AR/TR) chronic LBBB Aortic root enlargement Continue dialysis per nephrology Appreciate nephrology input Monitor volume status COPD No signs of exacerbation Saturating well on room air Thyroid Cancer S/P surgery Postsurgical hypothyroidism Normal TSH Continue levothyroxine Prostate cancer BPH Monitor for urinary retention Terazosin on hold due to low BP A-fib RVR H/O Persistent atrial fibrillation Continue metoprolol Eliquis on hold due to GI bleed Hemoglobin remains stable at 10 will restart Eliquis Mood disorder Continue home medications Refuses psychiatric eval Medical noncompliance per record Counseled about medication compliance Generalized deconditioning Fall precautions PT OT DVT Px: SCDs Re: GI bleed CODE STATUS DNI DNR Admission and Anticipated Discharge Date Admission Date: December 02, 2023 Subjective 12/07/2023 The patient was seen and examined in telemetry unit He remains very anxious and complains to have some shortness of breath Nonspecific pain all over Denies any chest pain and/or palpitation 12/08/2023 The patient was seen and examined in telemetry unit His condition has been deteriorating He has been feeling measurable and does not want to continue anymore dialysis The consequences of not having dialysis were discussed in detail with the patient Awaiting family members to come and decide further goal of care this afternoon 12/09/2023 The patient was seen and examined in telemetry unit He has been stable at rest but on waking up he was complaining of pain and distress all over the body Wanted to be comfort and does not want any more dialysis to continue Will await family members to come and discuss possible comfort care from here Review of Systems Review of Systems: sitting on a chair with acute distress due to anxiety and pain Physical Exam Physical Exam: moderate to severe distress at rest Constitutional: well developed, well nourished and + ill appearing Eyes: PERRL, conjunctivae normal, anicteric sclerae ENMT: external ear and nose normal, oropharynx normal Neck: trachea midline, no thyromegaly Respiratory: + respiratory distress ( mild distress d ue to anxiety) Auscultation: + diminished lung sounds; no crackles Cardiovascular: Rate/Rhythm: regular rate and regular rhythm; not tachycardic Heart Sounds: normal S1 and normal S2; no murmur Extremities: + edema ( trace edema bilaterally) Gastrointestinal (Abdomen): Inspection/Auscultation: + abdomen distended ( mildly distended) and normal bowel sounds Percussion/Palpation: + abdomen tender ( mildly tender) and abdomen soft Neurologic: normal touch/pain/proprioception and moves all extremities; no focal motor deficits Psychiatric: Mood: + depressed mood, + anxious mood and + irritable mood Lymphatic: no cervical or axillary lymphadenopathy Results & Data Results & Data Vital Signs (Past 12 Hours) Vital Signs Temp Pulse Pulse Resp BP BP Pulse Ox 12/09/23 15:01 36.5 C 104 H 19 130/85 96 12/09/23 10:50 36.7 C 98 H 19 107/79 99 12/09/23 08:06 113 H 12/09/23 08:06 12/09/23 07:15 110 H 19 126/77 93 12/09/23 06:10 108 H 102/71 12/09/23 05:46 138 H 134/101 H 12/09/23 05:00 Pulse Ox O2 Del Method O2 Del Method O2 Flow Rate O2 Flow Rate 12/09/23 15:01 Nasal Cannula 12/09/23 10:50 Nasal Cannula 2 12/09/23 08:06 12/09/23 08:06 Nasal Cannula 2 12/09/23 07:15 Room Air 12/09/23 06:10 12/09/23 05:46 12/09/23 05:00 95 Nasal Cannula 2 Laboratory Results [facility] 12/09/23 08:41 Sodium 129 L Potassium 4.8 Chloride 90 L Carbon Dioxide 16 L BUN 98 H Creatinine 11.39 H* Glucose 89 Calcium 8.5 L Medications Administered Current Inpatient Medications Allopurinol (Allopurinol 100 Mg Tab) 100 mg PO QAM [facility] Stop: 01/01/24 08:59 Last Admin: 12/09/23 08:07 Dose: Not Given Artificial Tears (Artificial Tears) 1 drops OPB QID PRN PRN Reason: Dryness Stop: 01/01/24 18:05 Buspirone HCl (Buspirone 5 Mg Tab) 5 mg PO Q4 PRN PRN Reason: Anxiety Stop: 01/01/24 05:50 Last Admin: 12/09/23 08:06 Dose: 5 mg Dextrose (Dextrose 50% 50 Ml Syringe) 25 - 50 ml IV UD PRN; Protocol PRN Reason: Hypoglycemia Protocol Stop: 01/01/24 05:50 Last Admin: 12/04/23 05:25 Dose: 25 ml Glucagon (Glucagon For Inj 1 Mg Vial) 1 mg SQ UD PRN; Protocol PRN Reason: Hypoglycemia Protocol Stop: 01/01/24 05:50 Glucose (Glucose 40% Gel 15 Gm Tube) 15 - 30 gm PO UD PRN; Protocol PRN Reason: Hypoglycemia Protocol Stop: 01/01/24 05:50 Glucose (Glucose 10 Tab/Tube) 4 - 8 tab PO UD PRN; Protocol PRN Reason: Hypoglycemia Treatment Stop: 01/01/24 05:50 Hydrocortisone (Hydrocortisone Acetate 25 Mg Supp) 25 mg ID BID [facility] Stop: 12/12/23 12:14 Last Admin: 12/09/23 08:06 Dose: Not Given Hydromorphone HCl (Hydromorphone Inj 0.5 Mg/0.5 Ml Syr) 0.25 mg IV Q4H PRN PRN Reason: Pain Stop: 12/22/23 03:18 Last Admin: 12/09/23 11:59 Dose: 0.25 mg Promethazine HCl 6.25 mg/ (Sodium Chloride) 50.25 mls @ 201 mls/hr IV Q6H PRN PRN Reason: Nausea And Vomiting Stop: 01/01/24 04:54 Last Infusion: 12/04/23 22:28 Dose: Infused Piperacillin Sod/Tazobactam (Sod 4.5 gm/ Dextrose) 100 mls @ 25 mls/hr IV Q12H [facility]; Protocol Stop: 12/12/23 15:59 Last Infusion: 12/09/23 09:50 Dose: Infused Insulin Aspart (Insulin Aspart Per Unit Charge) 0 units SC ACHS [facility] Stop: 01/01/24 07:29 Last Admin: 12/09/23 11:35 Dose: Not Given Lactobacillus Acidophilus (Advanced Probiotic 625 Mg Capsule) 1,250 mg PO DAILY [facility] Stop: 01/02/24 14:29 Last Admin: 12/09/23 08:06 Dose: Not Given Lactulose (Lactulose Syrup 20 Gm/30 Ml Udc) 10 gm PO BID PRN PRN Reason: severe constipation Stop: 01/01/24 05:55 Levalbuterol HCl (Levalbuterol Hcl 0.63 Mg/3 Ml Neb) 0.63 mg NEB Q6H PRN; Protocol PRN Reason: Shortness Of Breath Or Wheezing Stop: 01/05/24 18:36 Levothyroxine Sodium (Levothyroxine Sodium 150 Mcg Tablet) 150 mcg PO DAILYBB [facility] Stop: 01/01/24 06:29 Last Admin: 12/09/23 05:46 Dose: 150 mcg Loperamide HCl (Loperamide Hcl 2 Mg Cap) 2 mg PO Q4H PRN PRN Reason: Diarrhea Stop: 01/02/24 18:26 Last Admin: 12/04/23 11:18 Dose: 2 mg Lorazepam (Lorazepam 0.5 Mg Tab) 0.5 mg PO Q6H PRN PRN Reason: Anxiety Stop: 01/06/24 09:28 Metoprolol Succinate (Metoprolol Succ 25mg Ext Rel Tab) 25 mg PO QAM [facility] Stop: 01/01/24 08:59 Last Admin: 12/09/23 08:06 Dose: 25 mg Metoprolol Tartrate (Metoprolol Tartrate 1 Mg/Ml Vial) 2.5 mg IV Q6 PRN PRN Reason: Tachycardia HR>110 Stop: 01/05/24 11:59 Last Admin: 12/09/23 05:46 Dose: 2.5 mg Midodrine (Midodrine Hcl 2.5 Mg Tab) 2.5 mg PO TID@0800,1200,1700 [facility] Stop: 01/01/24 11:59 Last Admin: 12/09/23 11:36 Dose: Not Given Miscellaneous (Carbohydrates For Hypoglycemia ) 15 - 30 gm PO UD PRN PRN Reason: Hypoglycemia Protocol Stop: 01/01/24 05:50 Last Admin: 12/03/23 11:27 Dose: 15 gm Oxycodone HCl (Oxycodone Hcl Ir 5 Mg Tab (Immediate Release)) 5 - 10 mg PO QID PRN PRN Reason: Pain Stop: 12/22/23 03:18 Last Admin: 12/08/23 16:49 Dose: 10 mg Vitamin B Complex (Vitamin B Complex Tab) 1 tab PO DAILY [facility] Stop: 01/01/24 08:59 Last Admin: 12/09/23 08:07 Dose: Not Given Vitamin B Complex/Folic Acid (Nephrocaps) 1 cap PO DAILY [facility] Stop: 01/01/24 08:59 Last Admin: 12/09/23 08:07 Dose: Not Given Vitamin D (Cholecalciferol 25 Mcg (1000 Units) Tab) 50 mcg PO QAM [facility] Stop: 01/01/24 08:59 Last Admin: 12/09/23 08:07 Dose: Not Given (1) Hypotension Hypotension type: unspecified hypotension type Qualified Code(s): I95.9 - Hypotension, unspecified
[2023-12-09] MEDS ORDERED: ONDANSETRON 4 MG OD TAB SL PRN (15:23)
[2023-12-09] MEDS ORDERED: ONDANSETRON INJ 2 MG/ML 2 ML VIAL IV PRN (15:23)
[2023-12-09] MEDS ORDERED: PROMETHAZINE HCL 25 MG TAB PO PRN (15:23)
[2023-12-09] MEDS ORDERED: chlorproMAZINE HCL 25 MG TAB PO PRN (15:23)
[2023-12-09] MEDS: MoRPHine SULFATE 2 MG/ML CARP IV PRN (16:18)
[2023-12-09] MEDS ORDERED: MoRPHine SULFATE 10 MG/ML CARP/VIAL IV STA (17:12)
[2023-12-09] MEDS ORDERED: MoRPHine SULFATE 2 MG/ML CARP IV PRN (17:13)
[2023-12-09] MEDS: MoRPHine SULFATE 4 MG/ML 1 ML CARP\\VIAL IV ONE (17:48)
[2023-12-09] MEDS: MoRPHine SULFATE 4 MG/ML 1 ML CARP\\VIAL IV PRN (23:32)
[2023-12-10] MEDS: MoRPHine SULFATE 10 MG/0.5 ML UDP PO PRN (14:32)
--- NOTE | 2023-12-10 15:57 | Hospitalist Progress Note ---
Date of Service December 10, 2023 Assessment & Plan (1) Hypotension: Plan: Comfort care status Has been getting pain medications and anxiety medicines as needed Remains pleasantly confused but without any distress Will give him comfortable Deconditioning Overall deterioration of his general condition for the last few days Has been suffering a lot with nonspecific pain all over the body and general distress Very very frustrated and does not want to continue with the dialysis Has had palliative therapy evaluation and the patient has not completely made up his mind about comfort care from here but he was leaning towards it He is in his cleared mental status and knows that without dialysis he is not going to survive This will be discussed with the family members in front of the patient and further management plan will be outlined this afternoon Discussed with the family members in presence of the patient in patient's room The daughter, the and the patient are in agreement to go for comfort care Will stop all medications and continue with pain medications and medicines that will be given to control symptoms No more blood test He will be transferred to medical floor and likely discharge home with hospice if his condition remains reasonably stable for the next few days Hypotension- multifactorial Ongoing diarrhea with dehydration complicated by atrial fibrillation with RVR rectal bleed with dehydration End-stage renal disease on peritoneal dialysis Received intravenous fluid. hold torsemide and started on low-dose midodrine Blood pressure remains on the lower side of normal We will monitor while in the hospital Blood pressure remains on the lower side of normal Will stop all medications Bright red blood per rectum DD likely from diverticulosis, hemorrhoids H/O recent diverticulitis with microperforation --CT ABD:Sigmoid colonic diverticulosis without evidence of diverticulitis. Small amount of free fluid in the pelvis. Free air in the right upper abdomen which could be related to the peritoneal dialysis catheter Eliquis on hold Continue hydrocortisone suppository--has been refusing intermittently Appreciate GI input and recommendation Hemoglobin remains stable Appreciate GI input and recommendation Will likely need outpatient colonoscopy Hemoglobin is 7.8 today without any evidence of acute bleeding Likely contributed by end-stage renal disease ESRD Palliative care consulted to address goals of care Nephrology on board Patient prefers to be resumed on dialysis again Continue peritoneal dialysis as per the endocrinology physician The patient does not want to continue anymore peritoneal dialysis Plan to discuss this with the family members in presence of the patient and decide next goal of care No more dialysis Left heel ulcer Stage II/possible cellulitis--POA No other clear source of infection Elevated procalcitonin Received IV fluids Peritoneal fluid culture negative to date Blood culture negative to date Empirically on IV Zosyn No more antibiotics Diarrhea Likely due to IV antibiotics Stool for C. difficile negative Imodium as needed Diarrhea is controlled Chronic troponin elevation Likely due to renal insufficiency Denies any chest pain, dyspnea Acute on chronic hyponatremia Likely due to diuretics/volume overload Torsemide on hold Sodium 127 today Sodium level is 128 today Hypokalemia Monitor and replete electrolytes Abdominal pain Unclear etiology CT abdomen as above Monitor Resolved Chronic diastolic heart failure valvular heart disease (mild AR/TR) chronic LBBB Aortic root enlargement Continue dialysis per nephrology Appreciate nephrology input Monitor volume status COPD No signs of exacerbation Saturating well on room air Thyroid Cancer S/P surgery Postsurgical hypothyroidism Normal TSH Continue levothyroxine Prostate cancer BPH Monitor for urinary retention Terazosin on hold due to low BP A-fib RVR H/O Persistent atrial fibrillation Continue metoprolol Eliquis on hold due to GI bleed Hemoglobin remains stable at 10 will restart Eliquis Mood disorder Continue home medications Refuses psychiatric eval Medical noncompliance per record Counseled about medication compliance Generalized deconditioning Fall precautions PT OT DVT Px: SCDs Re: GI bleed CODE STATUS DNI DNR Admission and Anticipated Discharge Date Admission Date: December 02, 2023 Subjective 12/07/2023 The patient was seen and examined in telemetry unit He remains very anxious and complains to have some shortness of breath Nonspecific pain all over Denies any chest pain and/or palpitation 12/08/2023 The patient was seen and examined in telemetry unit His condition has been deteriorating He has been feeling measurable and does not want to continue anymore dialysis The consequences of not having dialysis were discussed in detail with the patient Awaiting family members to come and decide further goal of care this afternoon 12/09/2023 The patient was seen and examined in telemetry unit He has been stable at rest but on waking up he was complaining of pain and distress all over the body Wanted to be comfort and does not want any more dialysis to continue Will await family members to come and discuss possible comfort care from here 12/10/2023 The patient was seen and examined in medical floor He remains stable and pleasantly confused Physical Exam Physical Exam: Lying in bed without any acute distress Constitutional: well developed, well nourished and + ill appearing Eyes: PERRL, conjunctivae normal, anicteric sclerae ENMT: external ear and nose normal, oropharynx normal Neck: trachea midline, no thyromegaly Respiratory: + respiratory distress ( mild distress d ue to anxiety) Auscultation: + diminished lung sounds; no crackles Cardiovascular: Rate/Rhythm: regular rate and regular rhythm; not tachycardic Heart Sounds: normal S1 and normal S2; no murmur Extremities: + edema ( trace edema bilaterally) Gastrointestinal (Abdomen): Inspection/Auscultation: + abdomen distended ( mildly distended) and normal bowel sounds Percussion/Palpation: + abdomen tender ( mildly tender) and abdomen soft Neurologic: Alert and awake. Pleasantly confused. No acute distress Lymphatic: no cervical or axillary lymphadenopathy Results & Data Results & Data Vital Signs (Past 12 Hours) Vital Signs O2 Del Method 12/10/23 07:15 Room Air Medications Administered Current Inpatient Medications Artificial Tears (Artificial Tears) 1 drops OPB QID PRN PRN Reason: Dryness Stop: 01/01/24 18:05 Atropine Sulfate (Atropine Sulfate 1% Op Soln 5 Ml Btl) 4 drops SL Q1H PRN PRN Reason: Secretions or pulm congestion Stop: 01/08/24 15:22 Chlorpromazine HCl (Chlorpromazine Hcl 25 Mg Tab) 25 mg PO Q6H PRN PRN Reason: Hiccups Stop: 01/08/24 15:22 Glycopyrrolate (Glycopyrrolate 0.2 Mg/Ml Vial) 0.2 mg IV Q4H PRN PRN Reason: Secretions or Pulm Congestion Stop: 01/08/24 15:22 Lorazepam 0.5 mg/ Syringe 0.5 mls @ 2 mls/min IV Q4H PRN; Protocol PRN Reason: Anxiety/Agitation Stop: 01/08/24 15:22 Lorazepam (Lorazepam 0.5 Mg Tab) 0.5 mg PO Q6H PRN PRN Reason: Anxiety Stop: 01/06/24 09:28 Lorazepam (Lorazepam 0.5 Mg Tab) 0.5 mg PO Q4H PRN PRN Reason: Anxiety/Agitation Stop: 01/08/24 15:22 Morphine Sulfate (Morphine Sulfate 10 Mg/0.5 Ml Udp) 5 mg PO Q3H PRN PRN Reason: Pain or Respiratory Distress Stop: 12/23/23 15:22 Last Admin: 12/10/23 14:32 Dose: 5 mg Morphine Sulfate (Morphine Sulfate 4 Mg/Ml 1 Ml Carp\Vial) 4 mg IV Q3H PRN PRN Reason: Pain or Respiratory Distress Stop: 12/23/23 15:22 Last Admin: 12/10/23 10:18 Dose: 4 mg Ondansetron HCl (Ondansetron Inj 2 Mg/Ml 2 Ml Vial) 4 mg IV Q4H PRN PRN Reason: Nausea &/or Vomiting Stop: 01/08/24 15:22 Ondansetron HCl (Ondansetron 4 Mg Od Tab) 4 mg SL Q4H PRN PRN Reason: Nausea &/or Vomiting Stop: 01/08/24 15:22 Promethazine HCl (Promethazine Hcl 25 Mg Tab) 12.5 mg PO Q6H PRN PRN Reason: Nausea &/or Vomiting Stop: 01/08/24 15:22 (1) Hypotension Hypotension type: unspecified hypotension type Qualified Code(s): I95.9 - Hypotension, unspecified
[2023-12-10] MEDS: LORazepam 0.5 MG TAB PO PRN (18:15)
--- NOTE | 2023-12-11 15:40 | Hospitalist Progress Note ---
Date of Service December 11, 2023 Assessment & Plan (1) Hypotension: Plan: Comfort care status Has been getting pain medications and anxiety medicines as needed Remains pleasantly confused but without any distress Will give him comfortable Pleasantly confused without any acute distress at rest Will continue with the current comfort care If remains stable will go home with hospice on Wednesday Deconditioning Overall deterioration of his general condition for the last few days Has been suffering a lot with nonspecific pain all over the body and general distress Very very frustrated and does not want to continue with the dialysis Has had palliative therapy evaluation and the patient has not completely made up his mind about comfort care from here but he was leaning towards it He is in his cleared mental status and knows that without dialysis he is not going to survive This will be discussed with the family members in front of the patient and further management plan will be outlined this afternoon Discussed with the family members in presence of the patient in patient's room The daughter, the and the patient are in agreement to go for comfort care Will stop all medications and continue with pain medications and medicines that will be given to control symptoms No more blood test He will be transferred to medical floor and likely discharge home with hospice if his condition remains reasonably stable for the next few days Hypotension- multifactorial Ongoing diarrhea with dehydration complicated by atrial fibrillation with RVR rectal bleed with dehydration End-stage renal disease on peritoneal dialysis Received intravenous fluid. hold torsemide and started on low-dose midodrine Blood pressure remains on the lower side of normal We will monitor while in the hospital Blood pressure remains on the lower side of normal Will stop all medications Bright red blood per rectum DD likely from diverticulosis, hemorrhoids H/O recent diverticulitis with microperforation --CT ABD:Sigmoid colonic diverticulosis without evidence of diverticulitis. Small amount of free fluid in the pelvis. Free air in the right upper abdomen which could be related to the peritoneal dialysis catheter Eliquis on hold Continue hydrocortisone suppository--has been refusing intermittently Appreciate GI input and recommendation Hemoglobin remains stable Appreciate GI input and recommendation Will likely need outpatient colonoscopy Hemoglobin is 7.8 today without any evidence of acute bleeding Likely contributed by end-stage renal disease ESRD Palliative care consulted to address goals of care Nephrology on board Patient prefers to be resumed on dialysis again Continue peritoneal dialysis as per the foundry patternmaker The patient does not want to continue anymore peritoneal dialysis Plan to discuss this with the family members in presence of the patient and decide next goal of care No more dialysis Left heel ulcer Stage II/possible cellulitis--POA No other clear source of infection Elevated procalcitonin Received IV fluids Peritoneal fluid culture negative to date Blood culture negative to date Empirically on IV Zosyn No more antibiotics Diarrhea Likely due to IV antibiotics Stool for C. difficile negative Imodium as needed Diarrhea is controlled Chronic troponin elevation Likely due to renal insufficiency Denies any chest pain, dyspnea Acute on chronic hyponatremia Likely due to diuretics/volume overload Torsemide on hold Sodium 127 today Sodium level is 128 today Hypokalemia Monitor and replete electrolytes Abdominal pain Unclear etiology CT abdomen as above Monitor Resolved Chronic diastolic heart failure valvular heart disease (mild AR/TR) chronic LBBB Aortic root enlargement Continue dialysis per nephrology Appreciate nephrology input Monitor volume status COPD No signs of exacerbation Saturating well on room air Thyroid Cancer S/P surgery Postsurgical hypothyroidism Normal TSH Continue levothyroxine Prostate cancer BPH Monitor for urinary retention Terazosin on hold due to low BP A-fib RVR H/O Persistent atrial fibrillation Continue metoprolol Eliquis on hold due to GI bleed Hemoglobin remains stable at 10 will restart Eliquis Mood disorder Continue home medications Refuses psychiatric eval Medical noncompliance per record Counseled about medication compliance Generalized deconditioning Fall precautions PT OT DVT Px: SCDs Re: GI bleed CODE STATUS DNI DNR Admission and Anticipated Discharge Date Admission Date: December 02, 2023 Subjective 12/07/2023 The patient was seen and examined in telemetry unit He remains very anxious and complains to have some shortness of breath Nonspecific pain all over Denies any chest pain and/or palpitation 12/08/2023 The patient was seen and examined in telemetry unit His condition has been deteriorating He has been feeling measurable and does not want to continue anymore dialysis The consequences of not having dialysis were discussed in detail with the patient Awaiting family members to come and decide further goal of care this afternoon 12/09/2023 The patient was seen and examined in telemetry unit He has been stable at rest but on waking up he was complaining of pain and distress all over the body Wanted to be comfort and does not want any more dialysis to continue Will await family members to come and discuss possible comfort care from here 12/10/2023 The patient was seen and examined in medical floor He remains stable and pleasantly confused 12/11/2023 Patient was seen and examined in medical floor He remains pleasantly confused but more or less without any distress Has been getting supportive treatment Review of Systems Review of Systems: sitting on a chair with acute distress due to anxiety and pain Physical Exam Physical Exam: Lying in bed without any acute distress Constitutional: well developed, well nourished and + ill appearing Eyes: PERRL, conjunctivae normal, anicteric sclerae ENMT: external ear and nose normal, oropharynx normal Neck: trachea midline, no thyromegaly Respiratory: + respiratory distress ( mild distress d ue to anxiety) Auscul tation: + diminished lung sounds; no crackles Cardiovascular: Rate/Rhythm: regular rate and regular rhythm; not tachycardic Heart Sounds: normal S1 and normal S2; no murmur Extremities: + edema ( trace edema bilaterally) Gastrointestinal (Abdomen): Inspection/Auscultation: + abdomen distended ( mildly distended) and normal bowel sounds Percussion/Palpation: + abdomen tender ( mildly tender) and abdomen soft Neurologic: normal touch/pain/proprioception and moves all extremities; no focal motor deficits Psychiatric: Mood: + depressed mood, + anxious mood and + irritable mood Lymphatic: no cervical or axillary lymphadenopathy Results & Data Results & Data Vital Signs (Past 12 Hours) Vital Signs O2 Del Method 12/11/23 07:10 Room Air (1) Hypotension Hypotension type: unspecified hypotension type Qualified Code(s): I95.9 - Hypotension, unspecified
[2023-12-12] MEDS: diphenhydrAMINE 50 MG/ML VIAL IV STA (04:10)
--- NOTE | 2023-12-12 13:50 | Hospitalist Progress Note ---
Date of Service December 12, 2023 Assessment & Plan (1) Hypotension: Plan: Comfort care status Has been getting pain medications and anxiety medicines as needed Remains pleasantly confused but without any distress Will give him comfortable Pleasantly confused without any acute distress at rest Will continue with the current comfort care If remains stable will go home with hospice on Wednesday Remains comfortable Deconditioning Overall deterioration of his general condition for the last few days Has been suffering a lot with nonspecific pain all over the body and general distress Very very frustrated and does not want to continue with the dialysis Has had palliative therapy evaluation and the patient has not completely made up his mind about comfort care from here but he was leaning towards it He is in his cleared mental status and knows that without dialysis he is not going to survive This will be discussed with the family members in front of the patient and further management plan will be outlined this afternoon Discussed with the family members in presence of the patient in patient's room The daughter, the and the patient are in agreement to go for comfort care Will stop all medications and continue with pain medications and medicines that will be given to control symptoms No more blood test He will be transferred to medical floor and likely discharge home with hospice if his condition remains reasonably stable for the next few days Hypotension- multifactorial Ongoing diarrhea with dehydration complicated by atrial fibrillation with RVR rectal bleed with dehydration End-stage renal disease on peritoneal dialysis Received intravenous fluid. hold torsemide and started on low-dose midodrine Blood pressure remains on the lower side of normal We will monitor while in the hospital Blood pressure remains on the lower side of normal Will stop all medications Bright red blood per rectum DD likely from diverticulosis, hemorrhoids H/O recent diverticulitis with microperforation --CT ABD:Sigmoid colonic diverticulosis without evidence of diverticulitis. Small amount of free fluid in the pelvis. Free air in the right upper abdomen which could be related to the peritoneal dialysis catheter Eliquis on hold Continue hydrocortisone suppository--has been refusing intermittently Appreciate GI input and recommendation Hemoglobin remains stable Appreciate GI input and recommendation Will likely need outpatient colonoscopy Hemoglobin is 7.8 today without any evidence of acute bleeding Likely contributed by end-stage renal disease ESRD Palliative care consulted to address goals of care Nephrology on board Patient prefers to be resumed on dialysis again Continue peritoneal dialysis as per the internet sales associate The patient does not want to continue anymore peritoneal dialysis Plan to discuss this with the family members in presence of the patient and decide next goal of care No more dialysis Left heel ulcer Stage II/possible cellulitis--POA No other clear source of infection Elevated procalcitonin Received IV fluids Peritoneal fluid culture negative to date Blood culture negative to date Empirically on IV Zosyn No more antibiotics Diarrhea Likely due to IV antibiotics Stool for C. difficile negative Imodium as needed Diarrhea is controlled Chronic troponin elevation Likely due to renal insufficiency Denies any chest pain, dyspnea Acute on chronic hyponatremia Likely due to diuretics/volume overload Torsemide on hold Sodium 127 today Sodium level is 128 today Hypokalemia Monitor and replete electrolytes Abdominal pain Unclear etiology CT abdomen as above Monitor Resolved Chronic diastolic heart failure valvular heart disease (mild AR/TR) chronic LBBB Aortic root enlargement Continue dialysis per nephrology Appreciate nephrology input Monitor volume status COPD No signs of exacerbation Saturating well on room air Thyroid Cancer S/P surgery Postsurgical hypothyroidism Normal TSH Continue levothyroxine Prostate cancer BPH Monitor for urinary retention Terazosin on hold due to low BP A-fib RVR H/O Persistent atrial fibrillation Continue metoprolol Eliquis on hold due to GI bleed Hemoglobin remains stable at 10 will restart Eliquis Mood disorder Continue home medications Refuses psychiatric eval Medical noncompliance per record Counseled about medication compliance Generalized deconditioning Fall precautions PT OT DVT Px: SCDs Re: GI bleed CODE STATUS DNI DNR Admission and Anticipated Discharge Date Admission Date: December 02, 2023 Subjective 12/07/2023 The patient was seen and examined in telemetry unit He remains very anxious and complains to have some shortness of breath Nonspecific pain all over Denies any chest pain and/or palpitation 12/08/2023 The patient was seen and examined in telemetry unit His condition has been deteriorating He has been feeling measurable and does not want to continue anymore dialysis The consequences of not having dialysis were discussed in detail with the patient Awaiting family members to come and decide further goal of care this afternoon 12/09/2023 The patient was seen and examined in telemetry unit He has been stable at rest but on waking up he was complaining of pain and distress all over the body Wanted to be comfort and does not want any more dialysis to continue Will await family members to come and discuss possible comfort care from here 12/10/2023 The patient was seen and examined in medical floor He remains stable and pleasantly confused 12/11/2023 Patient was seen and examined in medical floor He remains pleasantly confused but more or less without any distress Has been getting supportive treatment 12/12/2023 The patient was seen and examined in medical floor Remains stable, pleasantly confused and comfortable Physical Exam Physical Exam: Lying in bed without any acute distress Constitutional: well developed, well nourished and + ill appearing Eyes: PERRL, conjunctivae normal, anicteric sclerae ENMT: external ear and nose normal, oropharynx normal Neck: trachea midline, no thyromegaly Respiratory: + respiratory distress ( mild distress d ue to anxiety) Auscultation: + diminished lung sounds; no crackles Cardiovascular: Rate/Rhythm: regular rate and regular rhythm; not tachycardic Heart Sounds: normal S1 and normal S2; no murmur Extremities: + edema ( trace edema bilaterally) Gastrointestinal (Abdomen): Inspection/Auscultation: + abdomen distended ( mildly distended) and normal bowel sounds Percussion/Palpation: + abdomen tender ( mildly tender) and abdomen soft Neurologic: normal touch/pain/proprioception and moves all extremities; no focal motor deficits Psychiatric: Mood: + depressed mood, + anxious mood and + irritable mood Lymphatic: no cervical or axillary lymphadenopathy Results & Data Results & Data Vital Signs (Past 12 Hours) Vital Signs O2 Del Method 12/12/23 07:00 Room Air (1) Hypotension Hypotension type: unspecified hypotension type Qualified Code(s): I95.9 - Hypotension, unspecified
[2023-12-12] MEDS: diphenhydrAMINE 50 MG/ML VIAL IV PRN (19:20)
--- NOTE | 2023-12-13 15:25 | Hospitalist Progress Note ---
Date of Service December 13, 2023 Assessment & Plan (1) Hypotension: Plan: Comfort care status Has been getting pain medications and anxiety medicines as needed Remains pleasantly confused but without any distress Will give him comfortable Pleasantly confused without any acute distress at rest Will continue with the current comfort care If remains stable will go home with hospice on Wednesday Remains comfortable on current medications Awaiting hospice placement at home Deconditioning Overall deterioration of his general condition for the last few days Has been suffering a lot with nonspecific pain all over the body and general distress Very very frustrated and does not want to continue with the dialysis Has had palliative therapy evaluation and the patient has not completely made up his mind about comfort care from here but he was leaning towards it He is in his cleared mental status and knows that without dialysis he is not going to survive This will be discussed with the family members in front of the patient and further management plan will be outlined this afternoon Discussed with the family members in presence of the patient in patient's room The daughter, the and the patient are in agreement to go for comfort care Will stop all medications and continue with pain medications and medicines that will be given to control symptoms No more blood test He will be transferred to medical floor and likely discharge home with hospice if his condition remains reasonably stable for the next few days Hypotension- multifactorial Ongoing diarrhea with dehydration complicated by atrial fibrillation with RVR rectal bleed with dehydration End-stage renal disease on peritoneal dialysis Received intravenous fluid. hold torsemide and started on low-dose midodrine Blood pressure remains on the lower side of normal We will monitor while in the hospital Blood pressure remains on the lower side of normal Will stop all medications Bright red blood per rectum DD likely from diverticulosis, hemorrhoids H/O recent diverticulitis with microperforation --CT ABD:Sigmoid colonic diverticulosis without evidence of diverticulitis. Small amount of free fluid in the pelvis. Free air in the right upper abdomen which could be related to the peritoneal dialysis catheter Eliquis on hold Continue hydrocortisone suppository--has been refusing intermittently Appreciate GI input and recommendation Hemoglobin remains stable Appreciate GI input and recommendation Will likely need outpatient colonoscopy Hemoglobin is 7.8 today without any evidence of acute bleeding Likely contributed by end-stage renal disease ESRD Palliative care consulted to address goals of care Nephrology on board Patient prefers to be resumed on dialysis again Continue peritoneal dialysis as per the senior online marketing manager The patient does not want to continue anymore peritoneal dialysis Plan to discuss this with the family members in presence of the patient and decide next goal of care No more dialysis Left heel ulcer Stage II/possible cellulitis--POA No other clear source of infection Elevated procalcitonin Received IV fluids Peritoneal fluid culture negative to date Blood culture negative to date Empirically on IV Zosyn No more antibiotics Diarrhea Likely due to IV antibiotics Stool for C. difficile negative Imodium as needed Diarrhea is controlled Chronic troponin elevation Likely due to renal insufficiency Denies any chest pain, dyspnea Acute on chronic hyponatremia Likely due to diuretics/volume overload Torsemide on hold Sodium 127 today Sodium level is 128 today Hypokalemia Monitor and replete electrolytes Abdominal pain Unclear etiology CT abdomen as above Monitor Resolved Chronic diastolic heart failure valvular heart disease (mild AR/TR) chronic LBBB Aortic root enlargement Continue dialysis per nephrology Appreciate nephrology input Monitor volume status COPD No signs of exacerbation Saturating well on room air Thyroid Cancer S/P surgery Postsurgical hypothyroidism Normal TSH Continue levothyroxine Prostate cancer BPH Monitor for urinary retention Terazosin on hold due to low BP A-fib RVR H/O Persistent atrial fibrillation Continue metoprolol Eliquis on hold due to GI bleed Hemoglobin remains stable at 10 will restart Eliquis Mood disorder Continue home medications Refuses psychiatric eval Medical noncompliance per record Counseled about medication compliance Generalized deconditioning Fall precautions PT OT DVT Px: SCDs Re: GI bleed CODE STATUS DNI DNR Admission and Anticipated Discharge Date Admission Date: December 02, 2023 Subjective 12/07/2023 The patient was seen and examined in telemetry unit He remains very anxious and complains to have some shortness of breath Nonspecific pain all over Denies any chest pain and/or palpitation 12/08/2023 The patient was seen and examined in telemetry unit His condition has been deteriorating He has been feeling measurable and does not want to continue anymore dialysis The consequences of not having dialysis were discussed in detail with the patient Awaiting family members to come and decide further goal of care this afternoon 12/09/2023 The patient was seen and examined in telemetry unit He has been stable at rest but on waking up he was complaining of pain and distress all over the body Wanted to be comfort and does not want any more dialysis to continue Will await family members to come and discuss possible comfort care from here 12/10/2023 The patient was seen and examined in medical floor He remains stable and pleasantly confused 12/11/2023 Patient was seen and examined in medical floor He remains pleasantly confused but more or less without any distress Has been getting supportive treatment 12/12/2023 The patient was seen and examined in medical floor Remains stable, pleasantly confused and comfortable 12/13/2023 Patient was seen and examined in medical floor He remains confused but does not have any acute distress Review of Systems Review of Systems: sitting on a chair with acute distress due to anxiety and pain Physical Exam Physical Exam: Lying in bed without any acute distress Constitutional: well developed, well nourished and + ill appearing Eyes: PERRL, conjunctivae normal, anicteric sclerae ENMT: external ear and nose normal, oropharynx normal Neck: trachea midline, no thyromegaly Respiratory: + respiratory distress ( mild distress d ue to anxiety) Auscultation: + diminished lung sounds; no crackles Cardiovascular: Rate/Rhythm: regular rate and regular rhythm; not tachycardic Heart Sounds: normal S1 and normal S2; no murmur Extremities: + edema ( trace edema bilaterally) Gastrointestinal (Abdomen): Inspection/Auscultation: + abdomen distended ( mildly distended) and normal bowel sounds Percussion/Palpation: + abdomen tender ( mildly tender) and abdomen soft Neurologic: normal touch/pain/proprioception and moves all extremities; no focal motor deficits Psychiatric: Mood: + irritable mood Lymphatic: no cervical or axillary lymphadenopathy Results & Data Results & Data Vital Signs (Past 12 Hours) Vital Signs O2 Del Method 12/13/23 07:30 Room Air Medications Administered Current Inpatient Medications Artificial Tears (Artificial Tears) 1 drops OPB QID PRN PRN Reason: Dryness Stop: 01/01/24 18:05 Atropine Sulfate (Atropine Sulfate 1% Op Soln 5 Ml Btl) 4 drops SL Q1H PRN PRN Reason: Secretions or pulm congestion Stop: 01/08/24 15:22 Chlorpromazine HCl (Chlorpromazine Hcl 25 Mg Tab) 25 mg PO Q6H PRN PRN Reason: Hiccups Stop: 01/08/24 15:22 Diphenhydramine HCl (Diphenhydramine 50 Mg/Ml Vial) 12.5 mg IV Q6 PRN PRN Reason: Itching Stop: 01/11/24 17:44 Last Admin: 12/13/23 02:01 Dose: 12.5 mg Glycopyrrolate (Glycopyrrolate 0.2 Mg/Ml Vial) 0.2 mg IV Q4H PRN PRN Reason: Secretions or Pulm Congestion Stop: 01/08/24 15:22 Lorazepam 0.5 mg/ Syringe 0.5 mls @ 2 mls/min IV Q4H PRN; Protocol PRN Reason: Anxiety/Agitation Stop: 01/08/24 15:22 Lorazepam (Lorazepam 0.5 Mg Tab) 0.5 mg PO Q6H PRN PRN Reason: Anxiety Stop: 01/06/24 09:28 Lorazepam (Lorazepam 0.5 Mg Tab) 0.5 mg PO Q4H PRN PRN Reason: Anxiety/Agitation Stop: 01/08/24 15:22 Last Admin: 12/10/23 18:15 Dose: 0.5 mg Morphine Sulfate (Morphine Sulfate 10 Mg/0.5 Ml Udp) 5 mg PO Q3H PRN PRN Reason: Pain or Respiratory Distress Stop: 12/23/23 15:22 Last Admin: 12/13/23 11:45 Dose: 5 mg Morphine Sulfate (Morphine Sulfate 4 Mg/Ml 1 Ml Carp\Vial) 4 mg IV Q3H PRN PRN Reason: Pain or Respiratory Distress Stop: 12/23/23 15:22 Last Admin: 12/13/23 14:23 Dose: 4 mg Ondansetron HCl (Ondansetron Inj 2 Mg/Ml 2 Ml Vial) 4 mg IV Q4H PRN PRN Reason: Nausea &/or Vomiting Stop: 01/08/24 15:22 Ondansetron HCl (Ondansetron 4 Mg Od Tab) 4 mg SL Q4H PRN PRN Reason: Nausea &/or Vomiting Stop: 01/08/24 15:22 Promethazine HCl (Promethazine Hcl 25 Mg Tab) 12.5 mg PO Q6H PRN PRN Reason: Nausea &/or Vomiting Stop: 01/08/24 15:22 (1) Hypotension Hypotension type: unspecified hypotension type Qualified Code(s): I95.9 - Hypotension, unspecified
[2023-12-13] MEDS: MoRPHine SULFATE 4 MG/ML 1 ML CARP\\VIAL IV PRN (22:21)
[2023-12-14] MEDS: diphenhydrAMINE 50 MG/ML VIAL IV SCH (00:08)
--- NOTE | 2023-12-14 15:22 | Hospitalist Progress Note ---
Date of Service December 14, 2023 Assessment & Plan (1) Hypotension: Plan: Comfort care status Has been getting pain medications and anxiety medicines as needed Remains pleasantly confused but without any distress Will give him comfortable Pleasantly confused without any acute distress at rest Will continue with the current comfort care If remains stable will go home with hospice on Wednesday Remains comfortable on current medications Awaiting hospice placement at home Remains critical but stable Comfortable with shallow breathing with intermittent pauses Will keep him comfortable as per the wish of the patient and the family members Deconditioning Overall deterioration of his general condition for the last few days Has been suffering a lot with nonspecific pain all over the body and general distress Very very frustrated and does not want to continue with the dialysis Has had palliative therapy evaluation and the patient has not completely made up his mind about comfort care from here but he was leaning towards it He is in his cleared mental status and knows that without dialysis he is not going to survive This will be discussed with the family members in front of the patient and further management plan will be outlined this afternoon Discussed with the family members in presence of the patient in patient's room The daughter, the and the patient are in agreement to go for comfort care Will stop all medications and continue with pain medications and medicines that will be given to control symptoms No more blood test He will be transferred to medical floor and likely discharge home with hospice if his condition remains reasonably stable for the next few days Hypotension- multifactorial Ongoing diarrhea with dehydration complicated by atrial fibrillation with RVR rectal bleed with dehydration End-stage renal disease on peritoneal dialysis Received intravenous fluid. hold torsemide and started on low-dose midodrine Blood pressure remains on the lower side of normal We will monitor while in the hospital Blood pressure remains on the lower side of normal Will stop all medications Bright red blood per rectum DD likely from diverticulosis, hemorrhoids H/O recent diverticulitis with microperforation --CT ABD:Sigmoid colonic diverticulosis without evidence of diverticulitis. Small amount of free fluid in the pelvis. Free air in the right upper abdomen which could be related to the peritoneal dialysis catheter Eliquis on hold Continue hydrocortisone suppository--has been refusing intermittently Appreciate GI input and recommendation Hemoglobin remains stable Appreciate GI input and recommendation Will likely need outpatient colonoscopy Hemoglobin is 7.8 today without any evidence of acute bleeding Likely contributed by end-stage renal disease ESRD Palliative care consulted to address goals of care Nephrology on board Patient prefers to be resumed on dialysis again Continue peritoneal dialysis as per the orthopedic nurse practitioner The patient does not want to continue anymore peritoneal dialysis Plan to discuss this with the family members in presence of the patient and decide next goal of care No more dialysis Left heel ulcer Stage II/possible cellulitis--POA No other clear source of infection Elevated procalcitonin Received IV fluids Peritoneal fluid culture negative to date Blood culture negative to date Empirically on IV Zosyn No more antibiotics Diarrhea Likely due to IV antibiotics Stool for C. difficile negative Imodium as needed Diarrhea is controlled Chronic troponin elevation Likely due to renal insufficiency Denies any chest pain, dyspnea Acute on chronic hyponatremia Likely due to diuretics/volume overload Torsemide on hold Sodium 127 today Sodium level is 128 today Hypokalemia Monitor and replete electrolytes Abdominal pain Unclear etiology CT abdomen as above Monitor Resolved Chronic diastolic heart failure valvular heart disease (mild AR/TR) chronic LBBB Aortic root enlargement Continue dialysis per nephrology Appreciate nephrology input Monitor volume status COPD No signs of exacerbation Saturating well on room air Thyroid Cancer S/P surgery Postsurgical hypothyroidism Normal TSH Continue levothyroxine Prostate cancer BPH Monitor for urinary retention Terazosin on hold due to low BP A-fib RVR H/O Persistent atrial fibrillation Continue metoprolol Eliquis on hold due to GI bleed Hemoglobin remains stable at 10 will restart Eliquis Mood disorder Continue home medications Refuses psychiatric eval Medical noncompliance per record Counseled about medication compliance Generalized deconditioning Fall precautions PT OT DVT Px: SCDs Re: GI bleed CODE STATUS DNI DNR Admission and Anticipated Discharge Date Admission Date: December 02, 2023 Subjective 12/07/2023 The patient was seen and examined in telemetry unit He remains very anxious and complains to have some shortness of breath Nonspecific pain all over Denies any chest pain and/or palpitation 12/08/2023 The patient was seen and examined in telemetry unit His condition has been deteriorating He has been feeling measurable and does not want to continue anymore dialysis The consequences of not having dialysis were discussed in detail with the patient Awaiting family members to come and decide further goal of care this afternoon 12/09/2023 The patient was seen and examined in telemetry unit He has been stable at rest but on waking up he was complaining of pain and distress all over the body Wanted to be comfort and does not want any more dialysis to continue Will await family members to come and discuss possible comfort care from here 12/10/2023 The patient was seen and examined in medical floor He remains stable and pleasantly confused 12/11/2023 Patient was seen and examined in medical floor He remains pleasantly confused but more or less without any distress Has been getting supportive treatment 12/12/2023 The patient was seen and examined in medical floor Remains stable, pleasantly confused and comfortable 12/13/2023 Patient was seen and examined in medical floor He remains confused but does not have any acute distress 09/13/2023 The patient was seen and examined in medical floor He has been stable and remains less responsive as of today Breathing shallow with intermittent pauses Remains comfortable Review of Systems Review of Systems: Unobtainable due to cognitive status Physical Exam Physical Exam: Lying in bed without any acute distress and remains comfortable. Full examination is not done Constitutional: well developed, well nourished and + ill appearing Eyes: PERRL, conjunctivae normal, anicteric sclerae ENMT: external ear and nose normal, oropharynx normal Neck: trachea midline, no thyromegaly Respiratory: + respiratory distress ( mild distress d ue to anxiety) Auscultation: + diminished lung sounds; no crackles Cardiovascular: Rate/Rhythm: regular rate and regular rhythm; not tachycardic Heart Sounds: normal S1 and normal S2; no murmur Extremities: + edema ( trace edema bilaterally) Gastrointestinal (Abdomen): Inspection/Auscultation: + abdomen distended ( mildly distended) and normal bowel sounds Percussion/Palpation: + abdomen tender ( mildly tender) and abdomen soft Neurologic: normal touch/pain/proprioception and moves all extremities; no focal motor deficits Psychiatric: Mood: + depressed mood, + anxious mood and + irritable mood Lymphatic: no cervical or axillary lymphadenopathy Results & Data Results & Data Vital Signs (Past 12 Hours) Vital Signs O2 Del Method 12/14/23 07:45 Room Air (1) Hypotension Hypotension type: unspecified hypotension type Qualified Code(s): I95.9 - Hypotension, unspecified
[2023-12-14] MEDS: LORazepam 0.5 MG in SYRINGE 0.25 ML IV PRN (22:33)
[2023-12-14] MEDS: ATROPINE SULFATE 1% OP SOLN 5 ML BTL SL PRN (22:51)
[2023-12-15] MEDS: GLYCOPYRROLATE 0.2 MG/ML VIAL IV PRN (18:00)
--- NOTE | 2023-12-16 08:00 | Death Pronouncement Note ---
Date of Service December 16, 2023 Pronouncement Note Admission Date December 02, 2023 Date and Time of Date of : 12/16/23 Time of : 06:30 Additional Data Confirmation of : no pulse, no respirations, no heart sounds and pupils fixed and dilated Family: contacted Attending physician: Michael Briceño MD
--- NOTE | 2023-12-16 13:03 | Hospitalist Progress Note ---
Date of Service December 15, 2023 Assessment & Plan (1) Hypotension: Plan: Comfort care status Has been getting pain medications and anxiety medicines as needed Remains pleasantly confused but without any distress Will give him comfortable Pleasantly confused without any acute distress at rest Will continue with the current comfort care If remains stable will go home with hospice on Wednesday Remains comfortable on current medications Awaiting hospice placement at home Remains critical but stable Comfortable with shallow breathing with intermittent pauses Will keep him comfortable as per the wish of the patient and the family members Deconditioning Overall deterioration of his general condition for the last few days Has been suffering a lot with nonspecific pain all over the body and general distress Very very frustrated and does not want to continue with the dialysis Has had palliative therapy evaluation and the patient has not completely made up his mind about comfort care from here but he was leaning towards it He is in his cleared mental status and knows that without dialysis he is not going to survive This will be discussed with the family members in front of the patient and further management plan will be outlined this afternoon Discussed with the family members in presence of the patient in patient's room The daughter, the and the patient are in agreement to go for comfort care Will stop all medications and continue with pain medications and medicines that will be given to control symptoms No more blood test He will be transferred to medical floor and likely discharge home with hospice if his condition remains reasonably stable for the next few days Hypotension- multifactorial Ongoing diarrhea with dehydration complicated by atrial fibrillation with RVR rectal bleed with dehydration End-stage renal disease on peritoneal dialysis Received intravenous fluid. hold torsemide and started on low-dose midodrine Blood pressure remains on the lower side of normal We will monitor while in the hospital Blood pressure remains on the lower side of normal Will stop all medications Bright red blood per rectum DD likely from diverticulosis, hemorrhoids H/O recent diverticulitis with microperforation --CT ABD:Sigmoid colonic diverticulosis without evidence of diverticulitis. Small amount of free fluid in the pelvis. Free air in the right upper abdomen which could be related to the peritoneal dialysis catheter Eliquis on hold Continue hydrocortisone suppository--has been refusing intermittently Appreciate GI input and recommendation Hemoglobin remains stable Appreciate GI input and recommendation Will likely need outpatient colonoscopy Hemoglobin is 7.8 today without any evidence of acute bleeding Likely contributed by end-stage renal disease ESRD Palliative care consulted to address goals of care Nephrology on board Patient prefers to be resumed on dialysis again Continue peritoneal dialysis as per the apprenticeship representative The patient does not want to continue anymore peritoneal dialysis Plan to discuss this with the family members in presence of the patient and decide next goal of care No more dialysis Left heel ulcer Stage II/possible cellulitis--POA No other clear source of infection Elevated procalcitonin Received IV fluids Peritoneal fluid culture negative to date Blood culture negative to date Empirically on IV Zosyn No more antibiotics Diarrhea Likely due to IV antibiotics Stool for C. difficile negative Imodium as needed Diarrhea is controlled Chronic troponin elevation Likely due to renal insufficiency Denies any chest pain, dyspnea Acute on chronic hyponatremia Likely due to diuretics/volume overload Torsemide on hold Sodium 127 today Sodium level is 128 today Hypokalemia Monitor and replete electrolytes Abdominal pain Unclear etiology CT abdomen as above Monitor Resolved Chronic diastolic heart failure valvular heart disease (mild AR/TR) chronic LBBB Aortic root enlargement Continue dialysis per nephrology Appreciate nephrology input Monitor volume status COPD No signs of exacerbation Saturating well on room air Thyroid Cancer S/P surgery Postsurgical hypothyroidism Normal TSH Continue levothyroxine Prostate cancer BPH Monitor for urinary retention Terazosin on hold due to low BP A-fib RVR H/O Persistent atrial fibrillation Continue metoprolol Eliquis on hold due to GI bleed Hemoglobin remains stable at 10 will restart Eliquis Mood disorder Continue home medications Refuses psychiatric eval Medical noncompliance per record Counseled about medication compliance Generalized deconditioning Fall precautions PT OT DVT Px: SCDs Re: GI bleed CODE STATUS DNI DNR Admission and Anticipated Discharge Date Admission Date: December 02, 2023 Subjective 12/07/2023 The patient was seen and examined in telemetry unit He remains very anxious and complains to have some shortness of breath Nonspecific pain all over Denies any chest pain and/or palpitation 12/08/2023 The patient was seen and examined in telemetry unit His condition has been deteriorating He has been feeling measurable and does not want to continue anymore dialysis The consequences of not having dialysis were discussed in detail with the patient Awaiting family members to come and decide further goal of care this afternoon 12/09/2023 The patient was seen and examined in telemetry unit He has been stable at rest but on waking up he was complaining of pain and distress all over the body Wanted to be comfort and does not want any more dialysis to continue Will await family members to come and discuss possible comfort care from here 12/10/2023 The patient was seen and examined in medical floor He remains stable and pleasantly confused 12/11/2023 Patient was seen and examined in medical floor He remains pleasantly confused but more or less without any distress Has been getting supportive treatment 12/12/2023 The patient was seen and examined in medical floor Remains stable, pleasantly confused and comfortable 12/13/2023 Patient was seen and examined in medical floor He remains confused but does not have any acute distress 12/14/2023 The patient was seen and examined in medical floor He has been stable and remains less responsive as of today Breathing shallow with intermittent pauses Remains comfortable 12/15/2023 Patient was seen and examined in medical floor He has been stable but critical Pain seems to be reasonably controlled Review of Systems Review of Systems: Unobtainable due to cognitive status Physical Exam Physical Exam: Lying in bed without any acute distress and remains comfortable. Opening eyes with conversation does not answer any questions Seems to be comfortable with current regimens Constitutional: well developed, well nourished and + ill appearing Eyes: PERRL, conjunctivae normal, anicteric sclerae ENMT: external ear and nose normal, oropharynx normal Neck: trachea midline, no thyromegaly Respiratory: + respiratory distress ( mild distress d ue to anxiety) Auscultation: + diminished lung sounds; no crackles Cardiovascular: Rate/Rhythm: regular rate and regular rhythm; not tachycardic Heart Sounds: normal S1 and normal S2; no murmur Extremities: + edema ( trace edema bilaterally) Gastrointestinal (Abdomen): Inspection/Auscultation: + abdomen distended ( mildly distended) and normal bowel sounds Percussion/Palpation: + abdomen tender ( mildly tender) and abdomen soft Neurologic: normal touch/pain/proprioception and moves all extremities; no focal motor deficits Psychiatric: Mood: + depressed mood, + anxious mood and + irritable mood Lymphatic: no cervical or axillary lymphadenopathy (1) Hypotension Hypotension type: unspecified hypotension type Qualified Code(s): I95.9 - Hypotension, unspecified
--- NOTE | 2023-12-16 17:25 | Discharge Summary ---
Date of Service December 16, 2023 Admission HPI Per Admitting Provider History obtained from patient and records. Medical history significant for chronic diastolic heart failure (EF 55 to 59% TTE 2022), valvular heart disease (mild AR/TR), chronic LBBB, A-fib on Eliquis, aortic root enlargement as per records, COPD, ESRD on PD, chronic hyponatremia, DM 2 on oral medications, thyroid cancer status post surgery, postsurgical hypothyroidism, prostate cancer, BPH, chronic anemia (baseline hemoglobin 10- 11), anxiety disorder, past tobacco abuse, medical noncompliance as per records. Recent confinement 2 weeks ago for acute diverticulitis improved with medical management. Patient seen on follow-up visit at PCP's office 2 days ago. Patient has felt terrible since being in the hospital as per note. Hemorrhoids bleeding from time to time from Eliquis. Increasing weakness noted at home yesterday afternoon. Patient denies headache, chest pain, SOB. Achy lower abdominal pain with chronic diarrhea. SBP noted to be 60s upon EMS arrival at home. Patient brought to ER for evaluation. 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 Causes of : ESRD,Acute On Chronic hyponatremia,Cellulitis and A Fib Discharge Data Allergies Allergy/AdvReac Type Severity Reaction Status Date / Time carvedilol Allergy Intermediate Hives Verified 12/02/23 03:08 losartan Allergy Unknown Unknown Verified 12/02/23 03:08 ANJELICA Inhibitors AdvReac Intermediate INTOLERANCE Verified 12/02/23 03:08 PER MD ORDER allopurinol AdvReac Intermediate severe abd Verified 12/02/23 03:08 pain Beta-Blockers AdvReac Intermediate INTOLERANCE Verified 12/02/23 03:08 (Beta-Adrenergic Bloc PER DR ARELLANO clonidine AdvReac Intermediate allergic Verified 12/02/23 03:08 to all but 1 brand doxazosin AdvReac Intermediate INTOLERANCE Verified 12/02/23 03:[address] ARELLANO hydralazine AdvReac Intermediate diarrhea, Verified 12/02/23 03:08 testicular pain hydrochlorothiazide AdvReac Intermediate hyponatremi Verified 12/02/23 03:08 a lisinopril AdvReac Intermediate Cough Verified 12/02/23 03:08 simvastatin [From Zocor] AdvReac Intermediate Muscle Pain Verified 12/02/23 03:08 sitagliptin [From Januvia] AdvReac Intermediate restlessnes Verified 12/02/23 03:08 s [id number] Reductase AdvReac Intermediate INTOLERANCE Verified 12/02/23 03:08 Inhibitor PER [Gxshese-Msn-Inj Reductase ADAN--MYALGIAS Inhibitor] citalopram AdvReac Unknown Unknown Verified 12/02/23 03:08 Consultations 12/02/23 04:09 ED Decision to Admit Stat 12/02/23 05:51 Consult Nephrology Routine 12/02/23 07:57 Consult Gastroenterology Routine 12/03/23 09:51 Consult Palliative Care Routine 12/03/23 11:20 Consult Palliative Care Routine Ordered Studies 12/02/23 04:49 CT Abd and Pelvis [CT abd pelvis wo con] Stat Hospital Course (1) Hypotension: Comfort care status Has been getting pain medications and anxiety medicines as needed Remains pleasantly confused but without any distress Will give him comfortable Pleasantly confused without any acute distress at rest Will continue with the current comfort care If remains stable will go home with hospice on Wednesday Remains comfortable on current medications Awaiting hospice placement at home Remains critical but stable Comfortable with shallow breathing with intermittent pauses Will keep him comfortable as per the wish of the patient and the family members Deconditioning Overall deterioration of his general condition for the last few days Has been suffering a lot with nonspecific pain all over the body and general distress Very very frustrated and does not want to continue with the dialysis Has had palliative therapy evaluation and the patient has not completely made up his mind about comfort care from here but he was leaning towards it He is in his cleared mental status and knows that without dialysis he is not going to survive This will be discussed with the family members in front of the patient and further management plan will be outlined this afternoon Discussed with the family members in presence of the patient in patient's room The daughter, the and the patient are in agreement to go for comfort care Will stop all medications and continue with pain medications and medicines that will be given to control symptoms No more blood test He will be transferred to medical floor and likely discharge home with hospice if his condition remains reasonably stable for the next few days Hypotension- multifactorial Ongoing diarrhea with dehydration complicated by atrial fibrillation with RVR rectal bleed with dehydration End-stage renal disease on peritoneal dialysis Received intravenous fluid. hold torsemide and started on low-dose midodrine Blood pressure remains on the lower side of normal We will monitor while in the hospital Blood pressure remains on the lower side of normal Will stop all medications Bright red blood per rectum DD likely from diverticulosis, hemorrhoids H/O recent diverticulitis with microperforation --CT ABD:Sigmoid colonic diverticulosis without evidence of diverticulitis. Small amount of free fluid in the pelvis. Free air in the right upper abdomen which could be related to the peritoneal dialysis catheter Eliquis on hold Continue hydrocortisone suppository--has been refusing intermittently Appreciate GI input and recommendation Hemoglobin remains stable Appreciate GI input and recommendation Will likely need outpatient colonoscopy Hemoglobin is 7.8 today without any evidence of acute bleeding Likely contributed by end-stage renal disease ESRD Palliative care consulted to address goals of care Nephrology on board Patient prefers to be resumed on dialysis again Continue peritoneal dialysis as per the food taster The patient does not want to continue anymore peritoneal dialysis Plan to discuss this with the family members in presence of the patient and decide next goal of care No more dialysis Left heel ulcer Stage II/possible cellulitis--POA No other clear source of infection Elevated procalcitonin Received IV fluids Peritoneal fluid culture negative to date Blood culture negative to date Empirically on IV Zosyn No more antibiotics Diarrhea Likely due to IV antibiotics Stool for C. difficile negative Imodium as needed Diarrhea is controlled Chronic troponin elevation Likely due to renal insufficiency Denies any chest pain, dyspnea Acute on chronic hyponatremia Likely due to diuretics/volume overload Torsemide on hold Sodium 127 today Sodium level is 128 today Hypokalemia Monitor and replete electrolytes Abdominal pain Unclear etiology CT abdomen as above Monitor Resolved Chronic diastolic heart failure valvular heart disease (mild AR/TR) chronic LBBB Aortic root enlargement Continue dialysis per nephrology Appreciate nephrology input Monitor volume status COPD No signs of exacerbation Saturating well on room air Thyroid Cancer S/P surgery Postsurgical hypothyroidism Normal TSH Continue levothyroxine Prostate cancer BPH Monitor for urinary retention Terazosin on hold due to low BP A-fib RVR H/O Persistent atrial fibrillation Continue metoprolol Eliquis on hold due to GI bleed Hemoglobin remains stable at 10 will restart Eliquis Mood disorder Continue home medications Refuses psychiatric eval Medical noncompliance per record Counseled about medication compliance Generalized deconditioning Fall precautions PT OT DVT Px: SCDs Re: GI bleed CODE STATUS DNI DNR Total Time Total Time Spent Total Time Spent (In Minutes): 20 minutes Discharge Plan Discharge Items Patient Disposition: Other Date/Time: 12/16/23 06:30
== END 2023-12-16 06:30 | disposition expired | DRG 640 ==
LOC: ED 02:57 → SUATTDRO 04:51 → 2E 04:51 → 3E 12-09 17:15